=== PATIENT | male | born 1950 | race Caucasian/White ===

== ENCOUNTER 2020-11-16 23:22 | Emergency (ER) | payer MEDICARE, MEDICAID, SELFPAY ==
[2020-11-16 23:36] VITALS: BP 133/62; PULSE 95; RESP 20; TEMP 36.6; O2SAT 95; BMI 25.1
--- NOTE | 2020-11-16 23:52 | ED_ITS ---
HPI - URI/Sore Throat General Chief Complaint: Upper Respiratory Symptoms Stated Complaint: Fever Time Seen by Provider: 11/16/20 23:38 Source: other ([facility] team automobile assembler) Mode of arrival: ambulatory Limitations: other (Patient is nonverbal at baseline) History of Present Illness HPI Narrative: Patient comes emergency room, brought by his team automobile assembler. Patient is nonverbal at baseline. The staff/team automobile assembler reports that the patient has been coughing and having low-grade fever (99.5 Tmax) over the last couple of days. Patient has not had vomiting or diarrhea. Patient is unable to state how he feels Related Data Previous Rx's Medication Instructions Recorded tamsulosin 0.4 mg capsule 0.4 mg PO BEDTIME 30 Days #30 cap 08/26/20 oxybutynin chloride 10 mg 10 mg PO DAILY #30 tab 10/22/20 tablet,extended release 24 hr levofloxacin 500 mg PO DAILY #9 tab 11/17/20 Allergies Allergy/AdvReac Type Severity Reaction Status Date / Time azithromycin [AZITHROMYCIN] Allergy Unknown UNKOWN Unverified 07/17/20 15:21 Macrolide Antibiotics Allergy Unknown unknown Unverified 07/17/20 15:21 [MACROLIDE ANTIBIOTICS] Macrolides and ketolides Allergy Unknown Uncoded 11/26/19 00:00 Review of Systems Review of Systems: Yes Unobtainable due to mental condition [facility] Past Medical History Medical History Barretts syndrome BPH (benign prostatic hyperplasia) GERD (gastroesophageal reflux disease) [place] (hard of hearing) HTN (hypertension) Non-verbal learning disorder Social History Social History Advance Directives: No Advance Directives Information Provided: No Physical Exam Vital Signs: Vital Signs: Last Vital Signs Temp 97.8 F 11/16/20 23:36 Pulse 95 11/16/20 23:36 Resp 20 11/16/20 23:36 BP 133/62 11/16/20 23:36 Pulse Ox 93 11/17/20 01:58 Body Mass Index 25.1 Appearance: Alert. No acute distress Eyes: Pupils equal, round and reactive to light. ENT: Pharynx normal. Neck: Normal inspection. Neck supple. No lymph nodes noted. No crepitus CVS: Normal heart rate and rhythm. Pulses normal. Normal S1 and S2 Respiratory: No respiratory distress. Breath sounds normal. No Wheezing. No rales , actively coughing Abdomen: Soft and nontender. No rigidity. No distention. Skin: Skin warm and dry. Extremities: No lower extremity edema. No Rash Neuro: No motor deficits, cranial nerves 2-12 grossly intact Course Course Course Narrative: I discussed with the patient's team automobile assembler from the skilled nursing the patient's labs and imaging. Patient does have pneumonia. Patient was ambulated, patient's oxygen saturation remained 92-93% on room air, with no dyspnea on exertion. He was given a 1st dose antibiotic (Levaquin). Sepsis is not suspected at this time. I discussed with the team automobile assembler signs and symptoms of when to return to the emergency room. MDM - URI/Sore Throat Lab Data Result diagrams: 11/17/20 00:33 11/17/20 00:33 Labs: Lab Results 11/17/20 11/17/20 11/17/20 Range/Units 00:33 00:33 00:33 WBC 11.0 H (4.8-10.8) X10*3/uL RBC 4.41 L (4.60-5.80) X10*6/uL Hgb 12.8 L (14.0-18.0) g/dl Hct 39.9 L (42-52) % MCV 90.5 (80-98) fL MCH 29.0 (27.0-33.0) pg MCHC 32.1 (31.0-36.0) g/dl RDW 13.7 (11.0-16.0) % Plt Count 256 (160-400) X10*3/uL MPV 11.2 (9.4-12.4) fL Immature Gran % (Auto) 0.6 H (0.0-0.4) % Neut % (Auto) 59.1 (45-73) % Lymph % (Auto) 25.5 (20-40) % [place] % (Auto) 11.8 H (2-11) % Eos % (Auto) 2.4 (0-4) % Baso % (Auto) 0.6 (0-2) % Lymph # (Auto) 2.8 (1.2-4.9) X10*3/uL [place] # (Auto) 1.3 H (0.1-1.2) X10*3/uL Eos # (Auto) 0.3 (0.0-0.4) X10*3/uL Baso # (Auto) 0.1 (0.0-0.2) X10*3/uL Abs Immat Gran (auto) 0.07 H (0.00-0.03) X10*3/uL Absolute Neuts (auto) 6.5 (2.0-8.3) X10*3/uL Absolute Nucleated RBC 0.000 (0.0-0.012) X10*3/uL Nucleated RBC % (auto) 0.0 (0.0-0.2) /100WBC Sodium 136 (135-145) mmol/L Potassium 4.7 (3.3-5.1) mmol/l Chloride 99 (96-108) mmol/L Carbon Dioxide 26 (22-29) mmol/L Anion Gap 16 (12-20) BUN 8 L (9-16) mg/dL Creatinine 0.82 (0.5-1.4) mg/dL Estim Creat Clear Calc 89.2 Estimated GFR > 60 Random Glucose 110 (60-115) mg/dL Lactic Acid 1.6 (0.5-2.0) mmol/L Calcium 8.6 (8.4-10.2) mg/dL Coronavirus (PCR) (Negative) Influenza Type A (PCR) (Negative) Influenza Type B (PCR) (Negative) RSV RNA Qual (PCR) (Negative) 11/17/20 Range/Units 00:33 WBC (4.8-10.8) X10*3/uL RBC (4.60-5.80) X10*6/uL Hgb (14.0-18.0) g/dl Hct (42-52) % MCV (80-98) fL MCH (27.0-33.0) pg MCHC (31.0-36.0) g/dl RDW (11.0-16.0) % Plt Count (160-400) X10*3/uL MPV (9.4-12.4) fL Immature Gran % (Auto) (0.0-0.4) % Neut % (Auto) (45-73) % Lymph % (Auto) (20-40) % [place] % (Auto) (2-11) % Eos % (Auto) (0-4) % Baso % (Auto) (0-2) % Lymph # (Auto) (1.2-4.9) X10*3/uL [place] # (Auto) (0.1-1.2) X10*3/uL Eos # (Auto) (0.0-0.4) X10*3/uL Baso # (Auto) (0.0-0.2) X10*3/uL Abs Immat Gran (auto) (0.00-0.03) X10*3/uL Absolute Neuts (auto) (2.0-8.3) X10*3/uL Absolute Nucleated RBC (0.0-0.012) X10*3/uL Nucleated RBC % (auto) (0.0-0.2) /100WBC Sodium (135-145) mmol/L Potassium (3.3-5.1) mmol/l Chloride (96-108) mmol/L Carbon Dioxide (22-29) mmol/L Anion Gap (12-20) BUN (9-16) mg/dL Creatinine (0.5-1.4) mg/dL Estim Creat Clear Calc Estimated GFR Random Glucose (60-115) mg/dL Lactic Acid (0.5-2.0) mmol/L Calcium (8.4-10.2) mg/dL Coronavirus (PCR) NEGATIVE (Negative) Influenza Type A (PCR) NEGATIVE (Negative) Influenza Type B (PCR) NEGATIVE (Negative) RSV RNA Qual (PCR) NEGATIVE (Negative) Imaging Data Chest x-ray: Radiologist's impression: FINDINGS: Patchy, ill-defined, multifocal reticular airspace opacities are present in both lungs as can be seen with viral pneumonia. No dense consolidation. No pneumothorax or pleural effusion. Cardiac and meniscal contours are normal. No acute osseous findings. Osteoarthritis is present in the acromioclavicular and glenohumeral joints. XR/XR chest 1V IMPRESSION: Patchy, ill-defined airspace disease in both lungs, concerning for bilateral pneumonia. Discharge Plan Discharge Clinical Impression: Pneumonia Qualifiers: Pneumonia type: due to unspecified organism Laterality: unspecified laterality Lung location: unspecified part of lung Qualified Code(s): J18.9 - Pneumonia, unspecified organism Patient Disposition: Xfer Other Instructions: Pneumonia (ED) Additional Instructions: If Mr. Sands has any shortness of breath, worsening symptoms, please call 911 or return to the emergency room immediately. Prescriptions: New levofloxacin 500 mg tablet 500 mg PO DAILY Qty: 9 RF: 0 No Action tamsulosin 0.4 mg capsule 0.4 mg PO BEDTIME 30 Days Qty: 30 RF: 6 oxybutynin chloride 10 mg tablet extended release 24hr 10 mg PO DAILY Qty: 30 RF: 0
--- NOTE | 2020-11-17 | XR_ITS ---
EXAMINATION: XR CHEST CLINICAL INFORMATION: Fever COMPARISON: 09/24/2019 TECHNIQUE: Frontal view of the chest was obtained. FINDINGS: Patchy, ill-defined, multifocal reticular airspace opacities are present in both lungs as can be seen with viral pneumonia. No dense consolidation. No pneumothorax or pleural effusion. Cardiac and meniscal contours are normal. No acute osseous findings. Osteoarthritis is present in the acromioclavicular and glenohumeral joints. XR/XR chest 1V IMPRESSION: Patchy, ill-defined airspace disease in both lungs, concerning for bilateral pneumonia.
[2020-11-17 00:45] LABS: MANUAL DIFF FLAG NO
[2020-11-17 00:46] LABS: Basophils Absolute Auto 0.1 X10*3/uL (0.0-0.2); Basophils Percent Auto 0.6 % (0-2); Eosinophils Absolute Auto 0.3 X10*3/uL (0.0-0.4); Eosinophils Percent Auto 2.4 % (0-4); Hematocrit 39.9 % (42-52); Hemoglobin 12.8 g/dl (14.0-18.0); Imm Gran Abs Auto 0.07 X10*3/uL (0.00-0.03); Imm Gran Pct Auto 0.6 % (0.0-0.4); Lymphocytes Absolute Auto 2.8 X10*3/uL (1.2-4.9); Lymphocytes Percent Auto 25.5 % (20-40); Mean Corpuscular HGB Conc 32.1 g/dl (31.0-36.0); Mean Corpuscular Volume 90.5 fL (80-98); Mean Platelet Volume 11.2 fL (9.4-12.4); Monocytes Absolute Auto 1.3 X10*3/uL (0.1-1.2); Monocytes Percent Auto 11.8 % (2-11); Neutrophils Absolute Auto 6.5 X10*3/uL (2.0-8.3); Neutrophils Percent Auto 59.1 % (45-73); Platelet Count 256 X10*3/uL (160-400); Red Blood Count 4.41 X10*6/uL (4.60-5.80); Red Cell Distribution Width 13.7 % (11.0-16.0)
[2020-11-17 01:07] LABS: Lactic Acid 1.6 mmol/L (0.5-2.0)
[2020-11-17 01:09] LABS: Anion Gap 16 (12-20); Blood Urea Nitrogen 8 mg/dL (9-16); Calcium 8.6 mg/dL (8.4-10.2); Carbon Dioxide 26 mmol/L (22-29); Chloride 99 mmol/L (96-108); Creatinine Clr Calc Pharmacy 89.2; Estimated Glomerular Filt Rate > 60; Glucose Random 110 mg/dL (60-115); Potassium 4.7 mmol/l (3.3-5.1); Sodium 136 mmol/L (135-145)
[2020-11-17 01:25] LABS: Influenza A PCR NEGATIVE (Negative); Influenza B PCR NEGATIVE (Negative); Resp Syncy Virus RNA Qual PCR NEGATIVE (Negative); SARS COV2 PCR INHOUSE NEGATIVE (Negative)
[2020-11-17 01:58] VITALS: O2SAT 93
--- NOTE | 2020-11-17 01:59 | PC.NURSE ---
PATIENT OXYGEN SAT 93% ON ROOM AIR, AMBULATED APPROXIMATELY 25 FEET, SAT REMAINED 92-93% WITH NO DYSPNEA ON EXERTION. DR. PARKER AWARE
[2020-11-17] MEDS: levoFLOXacin 500 MG TABLET PO (02:30)
== END 2020-11-17 02:50 | disposition other institution (70) ==
PROVIDERS: Emergency Provider Emergency Medicine
DX: J18.9 Pneumonia, unspecified organism (principal); R50.9 Fever, unspecified; Z20.822 Contact with and (suspected) exposure to COVID-19
CPT/HCPCS: 0241U; 36415; 71045; 80048; 83605; 85025; 87040; 99283

== ENCOUNTER 2020-11-19 13:18 | Emergency (ER) | payer MEDICARE, MEDICAID, SELFPAY ==
[2020-11-19 13:27] VITALS: BP 119/69; BP 152/85; PULSE 101; PULSE 102; RESP 16; O2SAT 98; BMI 29.2
--- NOTE | 2020-11-19 13:42 | CT_ITS ---
EXAMINATION: HEAD CT, CERVICAL SPINE CT AND CHEST CT WITHOUT CONTRAST CLINICAL INFORMATION: Fall COMPARISON: Previous head CT and cervical spine CT August 2019 and chest x-ray 11/17/2020 TECHNIQUE: Axial images through the head, cervical spine and chest without contrast. Sagittal and coronal reconstructions on the technologist workstation were performed. Patient dose 164 5 mg/cm FINDINGS: Head CT: There is no evidence of an extra-axial collection. There is no evidence of intra-axial or extra-axial hemorrhage. The ventricles and extra-axial CSF spaces are prominent suggestive of generalized atrophy. There is nonspecific periventricular white matter disease. No mass, mass effect or infarct is seen. No skull fracture is seen in there is bilateral maxillary sinus disease that appears new or increased from previous exam. Cervical spine CT: There is slight head tilt to the left. Bone alignment is otherwise normal. There is severe multilevel degenerative spondylosis with large bridging anterior vertebral body bony osteophytes. There is multilevel degenerative disc disease. There are severe degenerative changes at the C1 dens articulation. There is bilateral multilevel facet arthritis. These findings are similar to previous exam. No fracture or dislocation is seen. Prevertebral soft tissues are normal. Chest CT: There are bilateral groundglass and denser semisolid peripheral infiltrates. There is seen diffusely throughout the lungs but greatest at the lung bases. The lung volumes are low and there is bibasilar atelectasis. Appearance is a suggestive of possible Covid infection. The heart normal in size. There is no pericardial effusion. The thoracic aorta is normal in caliber. There are no enlarged hilar or mediastinal lymph nodes. The visualized thyroid gland is normal. There is no pleural effusion or pneumothorax. No chest wall mass is seen. There is no axillary lymphadenopathy. Images through the upper abdomen are unremarkable. There are degenerative changes of the spine. No fracture is seen. CT/CT cervical spine wo con IMPRESSION: Head CT: No acute findings. Generalized atrophy and nonspecific periventricular white matter disease. New bilateral maxillary sinus disease. Cervical spine CT: Severe degenerative changes. No fracture or dislocation seen. Chest CT: Bilateral groundglass attenuation and denser nodular peripheral infiltrates, low lung volumes and atelectasis at the lung bases. Chest x-ray appearance is nonspecific but suggestive of Covid infection.
--- NOTE | 2020-11-19 13:42 | ECG_ITS ---
Test Reason : FALL Blood Pressure : / mmHG Vent. Rate : 092 BPM Atrial Rate : 092 BPM P-R Int : 140 ms QRS Dur : 076 ms QT Int : 324 ms P-R-T Axes : 057 019 056 degrees QTc Int : 400 ms Normal sinus rhythm Normal ECG When compared with ECG of 06-JAN-2013 09:58, No significant change was found Referred By: Jeri Walden Electronically Signed By:GATITO CARDENAS
--- NOTE | 2020-11-19 13:45 | ED.SYNCOPE ---
HPI - Syncope General Chief Complaint: Fall Stated Complaint: NEAR SYNCOPE PER DETENTION Time Seen by Provider: 11/19/20 13:42 Source: patient, EMS and other (caregiver) Mode of arrival: EMS Limitations: other (cognitive impairment) History of Present Illness HPI narrative: recent pneumonia dx here 11/17 started on levofloxacin for bilateral pneumonia at that time COVID negative comes back after staff state he either tripped or he was coughing so hard he almost passed out - he did fall no obvious trauma, no AC therapy MD complaint: almost passed out Onset (ago): minute(s) Prodromal symptoms: other (cough vs trip) Witnessed: Yes - by Other (staff) Context: standing up Injuries sustained associated with event: none Current symptoms: none Treatments prior to arrival: none Related Data Home Medications Medication Instructions Recorded Confirmed docusate sodium 200 mg PO DAILY 11/19/20 11/19/20 hydrochlorothiazide 25 mg PO DAILY 11/19/20 11/19/20 lisinopril 20 mg PO DAILY 11/19/20 11/19/20 pravastatin 40 mg PO BEDTIME 11/19/20 11/19/20 Previous Rx's Medication Instructions Recorded tamsulosin 0.4 mg capsule 0.4 mg PO BEDTIME 30 Days #30 cap 08/26/20 levofloxacin 500 mg PO DAILY #9 tab 11/17/20 oxybutynin chloride 10 mg 10 mg PO DAILY 30 Days #30 tab 11/19/20 tablet,extended release 24 hr Allergies Allergy/AdvReac Type Severity Reaction Status Date / Time azithromycin [AZITHROMYCIN] Allergy Unknown UNKOWN Unverified 07/17/20 15:21 Macrolide Antibiotics Allergy Unknown unknown Unverified 07/17/20 15:21 [MACROLIDE ANTIBIOTICS] Macrolides and ketolides Allergy Unknown Uncoded 11/26/19 00:00 Review of Systems Review of Systems: ROS unable to be obtained due to altered mental status [facility] Past Medical History Attestation statement: The following information was validated with the patient. Medical History Barretts syndrome BPH (benign prostatic hyperplasia) GERD (gastroesophageal reflux disease) [place] (hard of hearing) HTN (hypertension) Non-verbal learning disorder Social History Social History (Updated 11/19/20 @ 13:52 by Jeri Walden DO) Smoking Status: Never smoker Use of substances other than those prescribed or required for medical reasons: No Advance Directives: No Advance Directives Information Provided: Yes Physical Exam Vital Signs: Vital Signs: Last Vital Signs Pulse 101 H 11/19/20 13:27 Resp 16 11/19/20 13:27 BP 119/69 11/19/20 13:27 Pulse Ox 98 11/19/20 13:27 Body Mass Index 29.2 Appearance: Alert. At baseline No acute distress. Eyes: Pupils equal, round and reactive to light. ENT: Pharynx normal. no trauma seen Neck: Normal inspection. Neck supple. CVS: Normal heart rate and rhythm. Pulses normal. Respiratory: No respiratory distress. Breath sounds normal. Abdomen: Soft and nontender. Skin: Skin warm and dry. Normal skin color. Normal skin turgor. Extremities: No lower extremity edema. No calf ttp Neuro: At baseline per staff, cannot participate in exam, no obvious focal deficits. Course Course Course Narrative: negative workup at this time no hypoxia COVID swab negative x [address] chest does appear consistent with COVID MDM - Syncope MDM Narrative Medical decision making narrative: 69 yo male with hearing loss, cognitive impairment here with possible trip and fall vs coughing and nearly passing out , just dx with pneumonia on 11/17 with negative COVID sent out on levofloxacin - cough persists, at this time will need labs, EKG, CT of head/neck/chest to r/o trauma, repeat COVID swab, troponin x 2. Lab Data Result diagrams: 11/19/20 14:20 11/19/20 14:20 Labs: Lab Results 11/19/20 11/19/20 11/19/20 Range/Units 14:20 14:20 14:20 WBC 6.8 (4.8-10.8) X10*3/uL RBC 4.39 L (4.60-5.80) X10*6/uL Hgb 12.7 L (14.0-18.0) g/dl Hct 39.6 L (42-52) % MCV 90.2 (80-98) fL MCH 28.9 (27.0-33.0) pg MCHC 32.1 (31.0-36.0) g/dl RDW 13.9 (11.0-16.0) % Plt Count 290 (160-400) X10*3/uL MPV 11.1 (9.4-12.4) fL Immature Gran % (Auto) 1.6 H (0.0-0.4) % Neut % (Auto) 54.9 (45-73) % Lymph % (Auto) 29.1 (20-40) % [place] % (Auto) 11.3 H (2-11) % Eos % (Auto) 2.5 (0-4) % Baso % (Auto) 0.6 (0-2) % Lymph # (Auto) 2.0 (1.2-4.9) X10*3/uL [place] # (Auto) 0.8 (0.1-1.2) X10*3/uL Eos # (Auto) 0.2 (0.0-0.4) X10*3/uL Baso # (Auto) 0.0 (0.0-0.2) X10*3/uL Abs Immat Gran (auto) 0.11 H (0.00-0.03) X10*3/uL Absolute Neuts (auto) 3.8 (2.0-8.3) X10*3/uL Absolute Nucleated RBC 0.000 (0.0-0.012) X10*3/uL Nucleated RBC % (auto) 0.0 (0.0-0.2) /100WBC PT 12.6 (10.8-13.0) SEC INR 1.1 (0.9-1.1) APTT 31.5 (24.1-38.0) SEC Sodium 134 L (135-145) mmol/L Potassium 4.3 (3.3-5.1) mmol/l Chloride 98 (96-108) mmol/L Carbon Dioxide 26 (22-29) mmol/L Anion Gap 14 (12-20) BUN 11 (9-16) mg/dL Creatinine 0.88 (0.5-1.4) mg/dL Estim Creat Clear Calc 83.8 Estimated GFR > 60 Random Glucose 142 H (60-115) mg/dL Calcium 8.5 (8.4-10.2) mg/dL Magnesium 1.9 (1.6-2.6) mg/dL Total Bilirubin 0.2 (0.0-1.0) mg/dL Direct Bilirubin < 0.2 (0.0-0.5) mg/dL AST 31 (5-37) U/L ALT 49 H (0-40) U/L Alkaline Phosphatase 78 (39-117) U/L Troponin I High Sens (<3.5-35.0) ng/L Total Protein 6.5 (6.5-8.0) g/dL Albumin 3.6 (3.5-5.0) g/dL Lipase 42 (8-78) U/L Coronavirus (PCR) (Negative) Influenza Type A (PCR) (Negative) Influenza Type B (PCR) (Negative) RSV RNA Qual (PCR) (Negative) 11/19/20 11/19/20 Range/Units 14:20 14:21 WBC (4.8-10.8) X10*3/uL RBC (4.60-5.80) X10*6/uL Hgb (14.0-18.0) g/dl Hct (42-52) % MCV (80-98) fL MCH (27.0-33.0) pg MCHC (31.0-36.0) g/dl RDW (11.0-16.0) % Plt Count (160-400) X10*3/uL MPV (9.4-12.4) fL Immature Gran % (Auto) (0.0-0.4) % Neut % (Auto) (45-73) % Lymph % (Auto) (20-40) % [place] % (Auto) (2-11) % Eos % (Auto) (0-4) % Baso % (Auto) (0-2) % Lymph # (Auto) (1.2-4.9) X10*3/uL [place] # (Auto) (0.1-1.2) X10*3/uL Eos # (Auto) (0.0-0.4) X10*3/uL Baso # (Auto) (0.0-0.2) X10*3/uL Abs Immat Gran (auto) (0.00-0.03) X10*3/uL Absolute Neuts (auto) (2.0-8.3) X10*3/uL Absolute Nucleated RBC (0.0-0.012) X10*3/uL Nucleated RBC % (auto) (0.0-0.2) /100WBC PT (10.8-13.0) SEC INR (0.9-1.1) APTT (24.1-38.0) SEC Sodium (135-145) mmol/L Potassium (3.3-5.1) mmol/l Chloride (96-108) mmol/L Carbon Dioxide (22-29) mmol/L Anion Gap (12-20) BUN (9-16) mg/dL Creatinine (0.5-1.4) mg/dL Estim Creat Clear Calc Estimated GFR Random Glucose (60-115) mg/dL Calcium (8.4-10.2) mg/dL Magnesium (1.6-2.6) mg/dL Total Bilirubin (0.0-1.0) mg/dL Direct Bilirubin (0.0-0.5) mg/dL AST (5-37) U/L ALT (0-40) U/L Alkaline Phosphatase (39-117) U/L Troponin I High Sens < 3.5 (<3.5-35.0) ng/L Total Protein (6.5-8.0) g/dL Albumin (3.5-5.0) g/dL Lipase (8-78) U/L Coronavirus (PCR) NEGATIVE (Negative) Influenza Type A (PCR) NEGATIVE (Negative) Influenza Type B (PCR) NEGATIVE (Negative) RSV RNA Qual (PCR) NEGATIVE (Negative) ECG Data Attestation: I personally reviewed and interpreted this ECG as follows: ECG interpretation date: 11/19/20 ECG interpretation time: 14:11 Interpretation: Rate: 92 Rhythm: NSR [place]: normal Normal P waves. Normal JARVIS. Normal QRS complex. ST T wave : normal no RAGHAV qTC: normal prior studies: no acute ischemia The study has been interpreted contemporaneously by me. . Discharge Plan Discharge Clinical Impression: Pneumonia Qualifiers: Pneumonia type: due to unspecified organism Laterality: bilateral Lung location: unspecified part of lung Qualified Code(s): J18.9 - Pneumonia, unspecified organism Patient Disposition: Home, Self-Care Instructions: Pneumonia (ED), COVID-19 (Coronavirus Disease 2019) (ED) Additional Instructions: return to ED for any worsening symptoms or concerns continue antibiotics YOUR CT SCAN OF HEAD AND NECK WERE FINE, YOUR CT CHEST LOOKS LIKE A COVID INFECTION PLEASE QUARANTINE Prescriptions: No Action tamsulosin 0.4 mg capsule 0.4 mg PO BEDTIME 30 Days Qty: 30 RF: 6 oxybutynin chloride 10 mg tablet extended release 24hr 10 mg PO DAILY 30 Days Qty: 30 RF: 0 levofloxacin 500 mg tablet 500 mg PO DAILY Qty: 9 RF: 0 pravastatin 40 mg Tablet 40 mg PO BEDTIME RF: 0 lisinopril 20 mg Tablet 20 mg PO DAILY RF: 0 hydrochlorothiazide 25 mg Tablet 25 mg PO DAILY RF: 0 docusate sodium 100 mg Tablet 200 mg PO DAILY RF: 0 Referrals: Brandon Tovar MD [Primary Care Provider] - 5 days (IF NOT BETTER)
[2020-11-19 14:26] LABS: MANUAL DIFF FLAG NO
[2020-11-19 14:29] LABS: Basophils Percent Auto 0.6 % (0-2); Eosinophils Absolute Auto 0.2 X10*3/uL (0.0-0.4); Eosinophils Percent Auto 2.5 % (0-4); Hematocrit 39.6 % (42-52); Hemoglobin 12.7 g/dl (14.0-18.0); Imm Gran Abs Auto 0.11 X10*3/uL (0.00-0.03); Imm Gran Pct Auto 1.6 % (0.0-0.4); Lymphocytes Percent Auto 29.1 % (20-40); Mean Corpuscular HGB Conc 32.1 g/dl (31.0-36.0); Mean Corpuscular Hemoglobin 28.9 pg (27.0-33.0); Mean Corpuscular Volume 90.2 fL (80-98); Mean Platelet Volume 11.1 fL (9.4-12.4); Monocytes Absolute Auto 0.8 X10*3/uL (0.1-1.2); Monocytes Percent Auto 11.3 % (2-11); Neutrophils Absolute Auto 3.8 X10*3/uL (2.0-8.3); Neutrophils Percent Auto 54.9 % (45-73); Platelet Count 290 X10*3/uL (160-400); Red Blood Count 4.39 X10*6/uL (4.60-5.80); Red Cell Distribution Width 13.9 % (11.0-16.0); White Blood Count 6.8 X10*3/uL (4.8-10.8)
[2020-11-19 14:35] LABS: INTERNATIONAL NORM RATIO 1.1 (0.9-1.1); Prothrombin Time 12.6 SEC (10.8-13.0)
[2020-11-19 14:38] LABS: Partial Thromboplastin Time 31.5 SEC (24.1-38.0)
[2020-11-19 15:01] LABS: Alanine Aminotransferase 49 U/L (0-40); Albumin Level 3.6 g/dL (3.5-5.0); Alkaline Phosphatase 78 U/L (39-117); Anion Gap 14 (12-20); Aspartate Amino Transferase 31 U/L (5-37); Bilirubin Direct < 0.2 mg/dL (0.0-0.5); Bilirubin Total 0.2 mg/dL (0.0-1.0); Blood Urea Nitrogen 11 mg/dL (9-16); Calcium 8.5 mg/dL (8.4-10.2); Carbon Dioxide 26 mmol/L (22-29); Chloride 98 mmol/L (96-108); Creatinine Clr Calc Pharmacy 83.8; Estimated Glomerular Filt Rate > 60; Glucose Random 142 mg/dL (60-115); Lipase 42 U/L (8-78); Magnesium 1.9 mg/dL (1.6-2.6); Potassium 4.3 mmol/l (3.3-5.1); Sodium 134 mmol/L (135-145); Total Protein 6.5 g/dL (6.5-8.0)
[2020-11-19 15:06] LABS: Troponin-I High Sensitivity < 3.5 ng/L (<3.5-35.0)
[2020-11-19 15:17] LABS: Influenza A PCR NEGATIVE (Negative); Influenza B PCR NEGATIVE (Negative); Resp Syncy Virus RNA Qual PCR NEGATIVE (Negative); SARS COV2 PCR INHOUSE NEGATIVE (Negative)
== END 2020-11-19 16:48 | disposition home or self-care (01) ==
PROVIDERS: Emergency Provider Emergency Medicine; PCP Internal Medicine
DX: J18.9 Pneumonia, unspecified organism (principal); R55 Syncope and collapse; Z79.899 Other long term (current) drug therapy; Z20.822 Contact with and (suspected) exposure to COVID-19
CPT/HCPCS: 0241U; 36415; 70450; 71250; 72125; 80048; 80076; 83690; 83735; 84484; 85025; 85610; 85730; 93005; 99283; 99284

== ENCOUNTER → 2021-04-17 11:02 | Outpatient (BNVA) | payer MEDICARE, MEDICAID, SELFPAY | PROVIDERS: PCP Internal Medicine; Visit Provider Urology | CPT/HCPCS: Q3014 ==

== ENCOUNTER → 2021-08-25 10:16 | Outpatient (BNVA) | payer MEDICARE, MEDICAID, SELFPAY | PROVIDERS: PCP Internal Medicine; Visit Provider Urology | DX: N40.1 Benign prostatic hyperplasia with lower urinary tract symptoms (principal); R35.1 Nocturia | CPT/HCPCS: Q3014 ==

== ENCOUNTER 2022-02-11 08:35 | Outpatient (REF) | payer MEDICARE, MEDICAID, SELFPAY ==
[2022-02-11 11:48] LABS: Prostate Specific Antigen 2.75 ng/mL (<0.05-4.0)
== END 2022-02-11 08:36 | disposition home or self-care (01) ==
LOC: HO.HMGCLDS 08:35
PROVIDERS: Visit Provider Urology
DX: Z12.5 Encounter for screening for malignant neoplasm of prostate (principal); N40.0 Benign prostatic hyperplasia without lower urinary tract symptoms
CPT/HCPCS: 36415; 84153

== ENCOUNTER → 2022-02-25 09:28 | Outpatient (BNVA) | payer MEDICARE, MEDICAID, SELFPAY | PROVIDERS: PCP Internal Medicine; Visit Provider Urology | DX: N40.1 Benign prostatic hyperplasia with lower urinary tract symptoms (principal); R35.1 Nocturia | CPT/HCPCS: Q3014 ==

== ENCOUNTER 2022-02-25 12:05 | Inpatient (IN) | payer MEDICARE, MEDICAID, SELFPAY ==
[2022-02-25] VITALS (12 sets, daily range): BP systolic 90–184; BP diastolic 54–95; PULSE 18–128; RESP 15–37; TEMP 32–38.7; O2SAT 90–100; BMI 31.1; BMI 30.3
--- NOTE | ~2022-02-25 | CT_ITS ---
EXAMINATION: CT ABDOMEN AND PELVIS WITH CONTRAST CLINICAL INFORMATION: Suspected bowel obstruction. COMPARISON: CT of the abdomen and pelvis done on 02/25/2022. TECHNIQUE: Multidetector volumetric images were obtained from the superior aspect of the liver through the pubic symphysis following administration 85 mL of Omnipaque 350 intravenous contrast. Sagittal and coronal reformatted images were obtained on the technologist's workstation. Oral contrast: No This CT examination was performed using dose optimization techniques as appropriate, variously including the following: *Automated exposure control *Adjustment of mA and/or kV according to patient size (this includes techniques or standardized protocols for targeted exams where dose is matched to indication/reason for exam; i.e. extremities or head) *Use of iterative reconstruction technique DLP: 763 mGy-cm FINDINGS: LUNG BASES: Dense airspace consolidation is noted at both lung bases associated with trace bilateral pleural effusions, shows progression since prior study. There is an enteric tube identified, the visualized part of the tube appears intact. The heart size is within normal limit. There is no pericardial effusion present. LIVER, GALLBLADDER, AND BILIARY TREE: Diffuse hepatic hypodensity consistent with hepatic steatosis is present. No superimposed focal liver lesion. Portal vein is patent. The gallbladder is mildly distended, shows minimal sludge at its dependent part of the lumen without evidence of any wall thickening or pericholecystic fluid, unchanged. PANCREAS: Unremarkable. SPLEEN: Unremarkable. ADRENAL GLANDS: Unremarkable. KIDNEYS AND URETERS: The kidneys are normal in size, shape, and attenuation. No hydronephrosis, hydroureter, or calculi seen. No perinephric stranding. Bilateral cortical renal cysts are present, similar to prior study. BLADDER: There is a Rosenberg's catheter present with air-fluid level. The bladder is suboptimally distended, shows apparent wall thickening. GASTROINTESTINAL TRACT: Significant fecal residual is noted throughout the entire large bowel. Nonvisualized appendix. The small bowel loops are decompressed. The stomach is decompressed. Mild stranding of the mesentery, new since prior study. ABDOMINAL WALL: No significant hernia is appreciated. LYMPH NODES: There are no pathologically enlarged retroperitoneal, mesenteric, pelvic and/or groin lymphadenopathy. VASCULAR: Diffuse atherosclerotic disease of the aorta and is branches without aneurysm formation. PELVIC VISCERA: There is no pelvic mass present. Trace amount of free fluid is noted, new since prior study. Prostate is visualized, shows parenchymal calcifications. OSSEOUS STRUCTURES: No suspicious focal lesion. CT/CT abdomen pelvis w con IMPRESSION: 1. Dense airspace consolidation at both lung bases associated with trace bilateral pleural effusions, shows progression since prior study dated 02/17/2022. 2. Interval development of nondrainable trace amount of simple appearing free fluid is noted within the dependent part of the pelvis and nonspecific mesenteric stranding. 3. Diffuse hepatic steatosis. 4. No CT evidence of any bowel obstruction is present. Significant fecal residual however is noted throughout the entire large bowel from cecum to the rectum. Fleischner guidelines were followed.
--- NOTE | ~2022-02-25 | CT_ITS ---
EXAM: 1. CTA chest, PE protocol 2. CT abdomen pelvis with contrast INDICATION: Hypoxia. Covid positive. Abdominal distention and pain. COMPARISON: Chest CT 11/19/2020 TECHNIQUE: Multidetector helical imaging of the chest, abdomen, and pelvis was obtained from the thoracic inlet through the pubic symphysis following administration of 85 cc of Omnipaque 350 IV contrast. Reformatted coronal, sagittal and MIP imaging was provided for interpretation. DLP: 1381 mGy-cm FINDINGS: CHEST: Central airways are patent. Endotracheal tube terminates approximately 3.5 cm above the level the [place]. Filling defect within the right mainstem bronchus statistically represents mucus. Some peripheral mucous plugging is also noted. The lungs are adequately aerated. Patchy somewhat nodular airspace opacities are present diffusely throughout both lungs. There are regions of more nodular consolidative airspace disease dependently within both lower lobes. There is mild posterior pleural thickening without gross effusion bilaterally. There is no pneumothorax. The heart is normal in size. There is no pericardial effusion. No main or segmental pulmonary emboli. Evaluation of subsegmental pulmonary arteries is suboptimal given background of airspace disease, respiratory motion artifact and artifact from overlying cardiac leads. No gross mediastinal lymphadenopathy. No enlarged axillary lymph nodes. ABDOMEN/PELVIS: The liver and gallbladder are normal in appearance. There is fatty atrophy of the pancreas. The spleen and adrenal glands are unremarkable. Symmetrically enhancing kidneys. Bilateral renal cysts are noted in addition to several bilateral renal hypodensities which are inaccurately characterized. Largest cyst is located off the lower pole of the right kidney and measures approximately 8 cm in size. There is suggestion of some minimal peripheral calcification of the cyst. Enteric tube terminates within the stomach. Normal caliber loops of small bowel. There is mild gaseous distention throughout the majority the colon with scattered air-fluid levels. Normal caliber abdominal aorta. The bladder is decompressed around a Rosenberg catheter and therefore not accurately evaluated. Air within the bladder is felt to be iatrogenic. There is mild diffuse bladder wall thickening present. Coarse calcifications are noted within a normal-sized prostate gland. There is no gross free pelvic fluid. No inguinal lymphadenopathy. OSSEOUS STRUCTURES Moderate diffuse degenerative changes of the spine. CT/CT angio chest PE protocol IMPRESSION: 1. Properly positioned endotracheal tube. 2. Patchy, somewhat nodular airspace opacities are present throughout both lungs. These are most consistent with provided history of Covid. More nodular consolidative airspace disease is present dependently within both lower lobes. 3. No main or segmental pulmonary emboli. Evaluation of subsegmental pulmonary arteries is suboptimal given background of airspace disease, respiratory motion artifact and artifact from overlying cardiac leads. 4. Mild gaseous distention throughout the majority the colon with scattered air-fluid levels. This CT examination was performed using dose optimization techniques as appropriate, variously including the following: *Automated exposure control *Adjustment of mA and/or kV according to patient size (this includes techniques or standardized protocols for targeted exams where dose is matched to indication/reason for exam; i.e. extremities or head) *Use of iterative reconstruction technique
--- NOTE | ~2022-02-25 | XR_ITS ---
EXAMINATION: XR CHEST CLINICAL INFORMATION: TLC placement COMPARISON: 02/25/2022 TECHNIQUE: Frontal view of the chest was obtained. FINDINGS: Catheter overlying the right-sided mediastinum. The tip overlying the superior vena cava. There is no pneumothorax. The ET tube is 4.4 cm above the [place]. NG tube coursing overlying the stomach. Lung wong are comparable. Continued bilateral basilar opacities right greater than left. No improvement. XR/XR chest 1V IMPRESSION: Catheter tip overlying the superior vena cava. There is no pneumothorax. ET tube 4.4 cm above [place]. NG tube overlying the stomach. Continued bilateral basilar opacities
--- NOTE | ~2022-02-25 | XR_ITS ---
EXAMINATION: XR CHEST CLINICAL INFORMATION: Shortness of breath and dyspnea COMPARISON: Chest radiograph 11/17/2020, chest CT 11/19/2020 TECHNIQUE: Frontal view of the chest was obtained. FINDINGS: Since the prior study there has been clearing of what were subtle ill-defined airspace opacities. However, there is a new small right pleural effusion. Heart size normal. No evidence of CHF. XR/XR chest 1V IMPRESSION: New tiny right pleural effusion.
--- NOTE | 2022-02-25 12:21 | ECG_ITS ---
Test Reason : DYSPNEA Blood Pressure : / mmHG Vent. Rate : 123 BPM Atrial Rate : 123 BPM P-R Int : 148 ms QRS Dur : 078 ms QT Int : 288 ms P-R-T Axes : 090 037 071 degrees QTc Int : 412 ms Sinus tachycardia Otherwise normal ECG When compared with ECG of 19-NOV-2020 13:57, No significant change was found Referred By: Jeri Walden Electronically Signed By:GATITO CARDENAS
[2022-02-25] MEDS: Albuterol Sulfate (0.083%) 2.5 MG/3 ML VIAL.NEB INHALE (12:33)
--- NOTE | 2022-02-25 12:36 | ED_ITS ---
HPI - SOB/Dyspnea General Chief Complaint: Dyspnea Stated Complaint: COVID +,DIFF BREATHING,FROM [facility] PER EMS Time Seen by Provider: 02/25/22 12:09 Source: EMS Mode of arrival: EMS Limitations: other (cognitive impairment, nonverbal, hearing loss) History of Present Illness HPI Narrative: 71 yo male with hx of BPH, COVID positive as of yesterday, vaccinated x 3 with Pfizer, seemed to be doing okay until this morning - abrupt onset short of breath, hot to touch, EMS found him sats 70% applied NC as well as NRB they attempted to suction him without succes. On arrival I suctioned him and he had a large volume of emesis which helped to clear the upper airway sounds MD elicited complaint: shortness of breath (fevers) and cough Onset (ago): day(s) (2 days ago but much worse this AM) Context: recent illness (COVID dx ) Timing: progressively worsening Severity: severe Exacerbating factors: lying flat, exertion and coughing Relieving factors: oxygen and upright position Known history of: other (pneumonia in past with COVID back in Oct 2020) Associated symptoms: fever, cough, wheezing and sputum production Treatment prior to arrival: oxygen Related Data Home Medications Medication Instructions Recorded Confirmed docusate sodium 100 mg tablet 200 mg PO DAILY 11/19/20 02/25/22 hydrochlorothiazide 25 mg tablet 25 mg PO DAILY@0800 11/19/20 02/25/22 lisinopril 20 mg tablet 20 mg PO DAILY 11/19/20 02/25/22 pravastatin 40 mg tablet 40 mg PO BEDTIME 11/19/20 02/25/22 lactulose 10 gram/15 mL oral 30 ml PO BEDTIME 08/25/21 02/25/22 solution loperamide 2 mg capsule 2 mg PO QID PRN 08/25/21 02/25/22 loratadine 10 mg tablet 10 mg PO DAILY PRN 08/25/21 02/25/22 multivitamin with folic acid 400 1 tab PO BEDTIME 08/25/21 02/25/22 mcg tablet (Thera) omeprazole 40 mg capsule,delayed 40 mg PO DAILY 08/25/21 02/25/22 release Lactobacillus rhamnosus GG 10 1 cap PO DAILY 02/25/22 02/25/22 billion cell capsule (Culturelle) bacitracin zinc 500 unit/gram 1 appl TOPICAL QID 02/25/22 02/25/22 topical ointment lorazepam 2 mg tablet 1 tab PO DAILY PRN 02/25/22 02/25/22 magnesium hydroxide 400 mg/5 mL 30 ml PO BEDTIME 02/25/22 02/25/22 oral suspension (Milk of Magnesia) oxybutynin chloride 10 mg 1 tab PO DAILY 02/25/22 02/25/22 tablet,extended release 24 hr polyethylene glycol 3350 17 17 g PO DAILY@1700 02/25/22 02/25/22 gram/dose oral powder (Miralax) Previous Rx's Medication Instructions Recorded finasteride 5 mg tablet 5 mg PO DAILY 90 Days #90 tab 09/08/21 tamsulosin 0.4 mg capsule 0.4 mg PO BEDTIME 30 Days #90 cap 09/16/21 Allergies Allergy/AdvReac Type Severity Reaction Status Date / Time azithromycin [AZITHROMYCIN] Allergy Unknown UNKOWN Verified 08/25/21 10:17 Macrolide Antibiotics Allergy Unknown unknown Verified 08/25/21 10:17 [MACROLIDE ANTIBIOTICS] Macrolides and ketolides Allergy Unknown Unknown Uncoded 08/25/21 10:17 Review of Systems Review of Systems: ROS unable to be obtained due to non verbal cognitive impairment and respiratory distress [facility] Past Medical History Source: old records reviewed Medical History Barretts syndrome BPH (benign prostatic hyperplasia) GERD (gastroesophageal reflux disease) [place] (hard of hearing) HTN (hypertension) Non-verbal learning disorder Social History Social History (Updated 02/25/22 @ 13:21 by Jeri Walden DO) Patient Tobacco Use Status: Tobacco use Unknown Advance Directives: No Advance Directives Information Provided: No Physical Exam Vital Signs: Vital Signs: Last Vital Signs Temp 99.6 F 02/25/22 15:06 Pulse 120 H 02/25/22 16:21 Resp 18 02/25/22 16:21 BP 142/89 H 02/25/22 16:21 Pulse Ox 99 02/25/22 16:21 BMI result Body Mass Index 31.1 Appearance: Alert. Appears at baseline Moderate acute distress. Eyes: Pupils equal, round and reactive to light. ENT: Pharynx normal. Neck: Normal inspection. Neck supple. CVS: tachycardic heart rate and rhythm. Pulses normal. Respiratory: Moderate respiratory distress -retractions, bases very coarse and diminished - rhonchi noted, upper airway gurgling noted unable to cough out secretions - suctioned immediately with yankauer- copious thick brown secretions noted patient vomited immediately and was able to express emesis without issue afterwards gurgling improved Abdomen: Soft and non-tender. Skin: Skin hot to touch and dry. Normal skin color. Normal skin turgor. Extremities: No lower extremity edema. No calf ttp Neuro: cannot fully participate. No motor deficit. No sensory deficit. Course Course Course Narrative: patient cannot tolerate CT scan he is ripping his high flow off repeatedly, found repeatedly with O2 off - hx of noncompliance - patient is delerious at this time. At this time he cannot tolerate oxygen or masks found hypoxic several times and then rips the mask off again. At this time given his lack of ability to communicate and understand what is going on given COVID and fevers/hypoxia he will require intubation to treat his hypoxia. sister Sharmin who is his contact [phone] sister would like to proceed with intubation at this time - she wants to be called daily plan to admit to ICU CT scans of chest and abdomen pending Dr. Johnson aware will try to admit signed out to Dr. Brady pending CT scans and final disposition to ICU, RN circuit breaker supervisor aware at this time of need for bed placement MDM - SOB/Dyspnea MDM Narrative Medical decision making narrative: 71 yo male with hx of BPH, non verbal cognitive impairment, Pfizer vaccine x 3, COVID Oct 2020 here with c/o URI COVID positive yesterday - today became acutely short of breath, fevers, found to be hypoxic. At this time will place on high flow, neb treatment, IV steroids, cultures, lactic acid, empiric abx given copious secretions. Planned admit Lab Data Result diagrams: 02/25/22 14:04 02/25/22 14:05 Labs: Lab Results 02/25/22 02/25/22 02/25/22 Range/Units 13:10 14:04 14:04 WBC 10.6 (4.8-10.8) X10*3/uL RBC 4.69 (4.60-5.80) X10*6/uL Hgb 13.6 L (14.0-18.0) g/dl Hct 41.1 L (42.0-52.0) % MCV 87.6 (80.0-98.0) fL MCH 29.0 (27.0-33.0) pg MCHC 33.1 (31.0-36.0) g/dl RDW 13.7 (11.0-16.0) % Plt Count 186 (160-400) X10*3/uL MPV 12.2 (9.4-12.4) fL Immature Gran % (Auto) 0.4 (0.0-0.4) % Neut % (Auto) 89.1 H (45-73) % Lymph % (Auto) 3.3 L (20-40) % Cole % (Auto) 7.0 (2-11) % Eos % (Auto) 0.0 (0-4) % Baso % (Auto) 0.2 (0-2) % Lymph # (Auto) 0.4 L (1.2-4.9) X10*3/uL Cole # (Auto) 0.7 (0.1-1.2) X10*3/uL Eos # (Auto) 0.0 (0.0-0.4) X10*3/uL Baso # (Auto) 0.0 (0.0-0.2) X10*3/uL Abs Immat Gran (auto) 0.04 H (0.00-0.03) X10*3/uL Absolute Neuts (auto) 9.5 H (2.0-8.3) x10*3/uL Absolute Nucleated RBC 0.000 (0.0-0.012) X10*3/uL Nucleated RBC % (auto) 0.0 (0.0-0.2) /100WBC PT 12.6 (9.9-13.0) SEC INR 1.1 (0.9-1.1) APTT 29.2 (24.1-38.0) SEC D-Dimer High Sensitivty 1091 NG/ML VBG pH (7.32-7.43) VBG pCO2 mmHg VBG pO2 mmHg VBG HCO3 (22-26) mmol/L VBG O2 Saturation % VBG Base Excess mmol/L Sodium (135-145) mmol/L Potassium (3.3-5.1) mmol/L Chloride (96-108) mmol/L Carbon Dioxide (22-29) mmol/L Anion Gap (12-20) BUN (9-16) mg/dL Creatinine (0.5-1.4) mg/dL Estim Creat Clear Calc Estimated GFR Random Glucose (60-115) mg/dL Lactic Acid (0.5-2.0) mmol/L Calcium (8.4-10.2) mg/dL Magnesium (1.6-2.6) mg/dL Ferritin (20-250) ng/mL Total Bilirubin (0.0-1.0) mg/dL Direct Bilirubin (0.0-0.5) mg/dL AST (5-37) U/L ALT (0-40) U/L Alkaline Phosphatase (39-117) U/L Lactate Dehydrogenase (118-273) U/L Total Creatine Kinase (38-174) U/L Troponin I High Sens (<3.5-35.0) ng/L C-Reactive Protein (< or = 0.50) mg/dL B-Natriuretic Peptide 55 (<100) pg/mL Total Protein (6.5-8.0) g/dL Albumin (3.5-5.0) g/dL Lipase (8-78) U/L Procalcitonin ng/mL COVID-19 (ANNAMARIE) (Negative) COVID-19 Clin Com 02/25/22 02/25/22 02/25/22 Range/Units 14:04 14:04 14:04 WBC (4.8-10.8) X10*3/uL RBC (4.60-5.80) X10*6/uL Hgb (14.0-18.0) g/dl Hct (42.0-52.0) % MCV (80.0-98.0) fL MCH (27.0-33.0) pg MCHC (31.0-36.0) g/dl RDW (11.0-16.0) % Plt Count (160-400) X10*3/uL MPV (9.4-12.4) fL Immature Gran % (Auto) (0.0-0.4) % Neut % (Auto) (45-73) % Lymph % (Auto) (20-40) % Cole % (Auto) (2-11) % Eos % (Auto) (0-4) % Baso % (Auto) (0-2) % Lymph # (Auto) (1.2-4.9) X10*3/uL [place] # (Auto) (0.1-1.2) X10*3/uL Eos # (Auto) (0.0-0.4) X10*3/uL Baso # (Auto) (0.0-0.2) X10*3/uL Abs Immat Gran (auto) (0.00-0.03) X10*3/uL Absolute Neuts (auto) (2.0-8.3) x10*3/uL Absolute Nucleated RBC (0.0-0.012) X10*3/uL Nucleated RBC % (auto) (0.0-0.2) /100WBC PT (9.9-13.0) SEC INR (0.9-1.1) APTT (24.1-38.0) SEC D-Dimer High Sensitivty NG/ML VBG pH (7.32-7.43) VBG pCO2 mmHg VBG pO2 mmHg VBG HCO3 (22-26) mmol/L VBG O2 Saturation % VBG Base Excess mmol/L Sodium (135-145) mmol/L Potassium (3.3-5.1) mmol/L Chloride (96-108) mmol/L Carbon Dioxide (22-29) mmol/L Anion Gap (12-20) BUN (9-16) mg/dL Creatinine (0.5-1.4) mg/dL Estim Creat Clear Calc Estimated GFR Random Glucose (60-115) mg/dL Lactic Acid 1.6 (0.5-2.0) mmol/L Calcium (8.4-10.2) mg/dL Magnesium (1.6-2.6) mg/dL Ferritin 396 H (20-250) ng/mL Total Bilirubin (0.0-1.0) mg/dL Direct Bilirubin (0.0-0.5) mg/dL AST (5-37) U/L ALT (0-40) U/L Alkaline Phosphatase (39-117) U/L Lactate Dehydrogenase (118-273) U/L Total Creatine Kinase (38-174) U/L Troponin I High Sens 10.9 (<3.5-35.0) ng/L C-Reactive Protein (< or = 0.50) mg/dL B-Natriuretic Peptide (<100) pg/mL Total Protein (6.5-8.0) g/dL Albumin (3.5-5.0) g/dL Lipase (8-78) U/L Procalcitonin ng/mL COVID-19 (ANNAMARIE) (Negative) COVID-19 Clin Com 02/25/22 02/25/22 02/25/22 Range/Units 14:05 14:05 14:39 WBC (4.8-10.8) X10*3/uL RBC (4.60-5.80) X10*6/uL Hgb (14.0-18.0) g/dl Hct (42.0-52.0) % MCV (80.0-98.0) fL MCH (27.0-33.0) pg MCHC (31.0-36.0) g/dl RDW (11.0-16.0) % Plt Count (160-400) X10*3/uL MPV (9.4-12.4) fL Immature Gran % (Auto) (0.0-0.4) % Neut % (Auto) (45-73) % Lymph % (Auto) (20-40) % Cole % (Auto) (2-11) % Eos % (Auto) (0-4) % Baso % (Auto) (0-2) % Lymph # (Auto) (1.2-4.9) X10*3/uL Cole # (Auto) (0.1-1.2) X10*3/uL Eos # (Auto) (0.0-0.4) X10*3/uL Baso # (Auto) (0.0-0.2) X10*3/uL Abs Immat Gran (auto) (0.00-0.03) X10*3/uL Absolute Neuts (auto) (2.0-8.3) x10*3/uL Absolute Nucleated RBC (0.0-0.012) X10*3/uL Nucleated RBC % (auto) (0.0-0.2) /100WBC PT (9.9-13.0) SEC INR (0.9-1.1) APTT (24.1-38.0) SEC D-Dimer High Sensitivty NG/ML VBG pH (7.32-7.43) VBG pCO2 mmHg VBG pO2 mmHg VBG HCO3 (22-26) mmol/L VBG O2 Saturation % VBG Base Excess mmol/L Sodium 131 L (135-145) mmol/L Potassium 4.0 (3.3-5.1) mmol/L Chloride 94 L (96-108) mmol/L Carbon Dioxide 25 (22-29) mmol/L Anion Gap 16 (12-20) BUN 18 H (9-16) mg/dL Creatinine 1.01 (0.5-1.4) mg/dL Estim Creat Clear Calc 68.5 Estimated GFR > 60 Random Glucose 145 H (60-115) mg/dL Lactic Acid (0.5-2.0) mmol/L Calcium 8.7 (8.4-10.2) mg/dL Magnesium 1.9 (1.6-2.6) mg/dL Ferritin (20-250) ng/mL Total Bilirubin 0.6 (0.0-1.0) mg/dL Direct Bilirubin 0.3 (0.0-0.5) mg/dL AST 24 (5-37) U/L ALT 23 (0-40) U/L Alkaline Phosphatase 62 D (39-117) U/L Lactate Dehydrogenase 197 (118-273) U/L Total Creatine Kinase 251 H (38-174) U/L Troponin I High Sens (<3.5-35.0) ng/L C-Reactive Protein 10.88 H (< or = 0.50) mg/dL B-Natriuretic Peptide (<100) pg/mL Total Protein 6.7 (6.5-8.0) g/dL Albumin 3.8 (3.5-5.0) g/dL Lipase 17 (8-78) U/L Procalcitonin 0.77 ng/mL COVID-19 (ANNAMARIE) Positive A (Negative) COVID-19 Clin Com See Note 02/25/22 Range/Units 14:59 WBC (4.8-10.8) X10*3/uL RBC (4.60-5.80) X10*6/uL Hgb (14.0-18.0) g/dl Hct (42.0-52.0) % MCV (80.0-98.0) fL MCH (27.0-33.0) pg MCHC (31.0-36.0) g/dl RDW (11.0-16.0) % Plt Count (160-400) X10*3/uL MPV (9.4-12.4) fL Immature Gran % (Auto) (0.0-0.4) % Neut % (Auto) (45-73) % Lymph % (Auto) (20-40) % Cole % (Auto) (2-11) % Eos % (Auto) (0-4) % Baso % (Auto) (0-2) % Lymph # (Auto) (1.2-4.9) X10*3/uL [place] # (Auto) (0.1-1.2) X10*3/uL Eos # (Auto) (0.0-0.4) X10*3/uL Baso # (Auto) (0.0-0.2) X10*3/uL Abs Immat Gran (auto) (0.00-0.03) X10*3/uL Absolute Neuts (auto) (2.0-8.3) x10*3/uL Absolute Nucleated RBC (0.0-0.012) X10*3/uL Nucleated RBC % (auto) (0.0-0.2) /100WBC PT (9.9-13.0) SEC INR (0.9-1.1) APTT (24.1-38.0) SEC D-Dimer High Sensitivty NG/ML VBG pH 7.47 H (7.32-7.43) VBG pCO2 34 mmHg VBG pO2 125 mmHg VBG HCO3 25 (22-26) mmol/L VBG O2 Saturation 100.0 % VBG Base Excess 2.0 mmol/L Sodium (135-145) mmol/L Potassium (3.3-5.1) mmol/L Chloride (96-108) mmol/L Carbon Dioxide (22-29) mmol/L Anion Gap (12-20) BUN (9-16) mg/dL Creatinine (0.5-1.4) mg/dL Estim Creat Clear Calc Estimated GFR Random Glucose (60-115) mg/dL Lactic Acid (0.5-2.0) mmol/L Calcium (8.4-10.2) mg/dL Magnesium (1.6-2.6) mg/dL Ferritin (20-250) ng/mL Total Bilirubin (0.0-1.0) mg/dL Direct Bilirubin (0.0-0.5) mg/dL AST (5-37) U/L ALT (0-40) U/L Alkaline Phosphatase (39-117) U/L Lactate Dehydrogenase (118-273) U/L Total Creatine Kinase (38-174) U/L Troponin I High Sens (<3.5-35.0) ng/L C-Reactive Protein (< or = 0.50) mg/dL B-Natriuretic Peptide (<100) pg/mL Total Protein (6.5-8.0) g/dL Albumin (3.5-5.0) g/dL Lipase (8-78) U/L Procalcitonin ng/mL COVID-19 (ANNAMARIE) (Negative) COVID-19 Clin Com ECG Data Attestation: I personally reviewed and interpreted this ECG as follows: ECG interpretation date: 02/25/22 ECG interpretation time: 12:45 Interpretation: Rate: 123 Rhythm: sinus tachycardia [place]: normal Normal P waves. Normal JARVIS. Normal QRS complex. ST T wave : normal no RAGHAV qTC: normal prior studies: no acute ischemia The study has been interpreted contemporaneously by me. Procedures Intubation Time out performed: Yes sedative: Etomidate Mg Given: 10 paralytic: Rocuronium Mg Given: 50 Laryngoscope: Storm (4) Assist Device Used: other (glidescope) ET Tube Size: 7.5 ET Tube Uncuffed: Yes Tube Secured Depth (cm): 23 Tube Secured Location: lips Tube Placement Confirmation: visualized tube passing through cords, equal breath sounds bilaterally, no breath sounds over epigastrium and confirmation by ca pnometry Patient Tolerated Procedure: well and no complications Intubation Complications: none Additional Comments: when laid down flat large amount of yellow brown copious secretions came up from trachea had to be suctioned lowest O2 sat during procedure was 90% Critical Care Time Critical Care Time Critical Care Time: Yes Total Critical Care Time: 90 Attestation: supplemental O2, family discussion, IV antibiotics, intubations, management of acute respiratory failure, medical consult, admit to ICU I attest to this time spent taking care of the patient Discharge Plan Discharge Clinical Impression: Fever, Hypoxia, COVID-19, Acute delirium Respiratory failure Qualifiers: Chronicity: acute Respiratory failure complication: hypoxia Qualified Code(s): J96.01 - Acute respiratory failure with hypoxia Patient Disposition: Admitted As Inpatient
[2022-02-25] MEDS: ondansetron HCL 4 MG/2 ML VIAL IVPUSH (12:45)
[2022-02-25] MEDS: dexAMETHasone sod phosphate 4 MG/ML VIAL 6 MG IVPUSH (12:45)
[2022-02-25] MEDS: Acetaminophen Supp 650 MG SUPP.RECT PR (12:45)
[2022-02-25 13:22] LABS: INTERNATIONAL NORM RATIO 1.1 (0.9-1.1); Prothrombin Time 12.6 SEC (9.9-13.0)
[2022-02-25 13:24] LABS: D Dimer High Sensitivity 1091 NG/ML
[2022-02-25 13:25] LABS: Partial Thromboplastin Time 29.2 SEC (24.1-38.0)
[2022-02-25 14:13] LABS: MANUAL DIFF FLAG NO
[2022-02-25 14:16] LABS: Basophils Percent Auto 0.2 % (0-2); Hematocrit 41.1 % (42.0-52.0); Hemoglobin 13.6 g/dl (14.0-18.0); Imm Gran Abs Auto 0.04 X10*3/uL (0.00-0.03); Imm Gran Pct Auto 0.4 % (0.0-0.4); Lymphocytes Absolute Auto 0.4 X10*3/uL (1.2-4.9); Lymphocytes Percent Auto 3.3 % (20-40); Mean Corpuscular HGB Conc 33.1 g/dl (31.0-36.0); Mean Corpuscular Volume 87.6 fL (80.0-98.0); Mean Platelet Volume 12.2 fL (9.4-12.4); Monocytes Absolute Auto 0.7 X10*3/uL (0.1-1.2); Neutrophils Absolute Auto 9.5 x10*3/uL (2.0-8.3); Neutrophils Percent Auto 89.1 % (45-73); Platelet Count 186 X10*3/uL (160-400); Red Blood Count 4.69 X10*6/uL (4.60-5.80); Red Cell Distribution Width 13.7 % (11.0-16.0); White Blood Count 10.6 X10*3/uL (4.8-10.8)
[2022-02-25 14:20] LABS: Lactic Acid 1.6 mmol/L (0.5-2.0)
[2022-02-25 14:32] LABS: Alanine Aminotransferase 23 U/L (0-40); Albumin Level 3.8 g/dL (3.5-5.0); Alkaline Phosphatase 62 U/L (39-117); Anion Gap 16 (12-20); Aspartate Amino Transferase 24 U/L (5-37); Bilirubin Direct 0.3 mg/dL (0.0-0.5); Bilirubin Total 0.6 mg/dL (0.0-1.0); Blood Urea Nitrogen 18 mg/dL (9-16); C Reactive Protein 10.88 mg/dL (< or = 0.50); Calcium 8.7 mg/dL (8.4-10.2); Carbon Dioxide 25 mmol/L (22-29); Chloride 94 mmol/L (96-108); Creatinine Clr Calc Pharmacy 68.5; Estimated Glomerular Filt Rate > 60; Glucose Random 145 mg/dL (60-115); Lactate Dehydrogenase 197 U/L (118-273); Lipase 17 U/L (8-78); Magnesium 1.9 mg/dL (1.6-2.6); Sodium 131 mmol/L (135-145); Total Protein 6.7 g/dL (6.5-8.0)
[2022-02-25 14:34] LABS: Troponin-I High Sensitivity 10.9 ng/L (<3.5-35.0)
[2022-02-25 14:35] LABS: B Type Natriuretic Peptide 55 pg/mL (<100)
[2022-02-25 14:49] LABS: Procalcitonin 0.77 ng/mL
[2022-02-25 14:53] LABS: Ferritin 396 ng/mL (20-250)
--- NOTE | 2022-02-25 14:56 | PHA.MEDREC ---
Pharmacy Consult ? Medication Reconciliation Pharmacy has completed the medication reconciliation. Spoke with the patients shelter who provided a list from the department of developmental services.
[2022-02-25 15:06] LABS: VBG HCO3 25 mmol/L (22-26); VBG pCO2 34 mmHg; VBG pH 7.47 (7.32-7.43); VBG pO2 125 mmHg
[2022-02-25 15:06] LABS: Venous Blood Gas Refer to POC result
[2022-02-25] MEDS: Piperacillin Sodium/Tazobactam 3.375 GM in 0.9 % Sodium Chloride 50 ML IV (15:14)
[2022-02-25 15:25] LABS: COVID-19 Test Positive (Negative); IDNOW Serial# 16C4AD1C
[2022-02-25] MEDS: Etomidate 20 MG/10 ML VIAL 10 MG IVPUSH (16:14)
[2022-02-25] MEDS: Rocuronium Bromide 50 MG/5 ML VIAL IVPUSH (16:15)
[2022-02-25] MEDS: Midazolam HCl/NS 50 MG/50 ML PLAST..BAG IVCONT (16:21)
[2022-02-25] MEDS: fentaNYL citrate/NS 1,000 MCG/100 ML PLAST..BAG 10 MCG IVCONT ×2 (16:21→21:26)
--- NOTE | 2022-02-25 16:28 | PC.NURSE ---
Pt intubated by with RT, this RN, and second RN present. Pt given etomidate and rocuronium for sedation/paralytic agents. 7.5 tube noted at 23cm when intubation was completed. VS stable during intubation.
--- NOTE | 2022-02-25 16:36 | P.HPCC_ITS ---
History of Present Illness Date of Service: 02/25/22 Attending physician on admission: Lucio Johnson Chief Complaint: Shortness of breath and altered mental status 71-year-old male hypertensive and hyperlipidemic with benign prostatic hypertrophy noted to be tachypneic with a marked drop in oxygen saturation clearly respiratory distress and altered mental status with increased agitation and he is already a [facility] patient who is nonverbal and deaf and has no ability to really communicate Got progressively worse to the point where he was staring off his oxygen source clearly really from his delirium and acute indication for intubation which was performed with rocuronium paralysis and apparently very the no foul colored sputum was removed and there was a question of course is to whether not the could have been an aspiration superimposed so at this point he was covered in the emergency room with vancomycin and Zosyn Review of Systems Review of Systems: Yes Unobtainable due to mental status PMFSH Past Medical History Medical History Barretts syndrome BPH (benign prostatic hyperplasia) GERD (gastroesophageal reflux disease) [place] (hard of hearing) HTN (hypertension) Non-verbal learning disorder Social History Social History (Updated 02/25/22 @ 13:21 by Jeri Walden DO) Patient Tobacco Use Status: Tobacco use Unknown Advance Directives: No Advance Directives Information Provided: No Meds Allergies Allergy/AdvReac Type Severity Reaction Status Date / Time azithromycin [AZITHROMYCIN] Allergy Unknown UNKOWN Verified 08/25/21 10:17 Macrolide Antibiotics Allergy Unknown unknown Verified 08/25/21 10:17 [MACROLIDE ANTIBIOTICS] Macrolides and ketolides Allergy Unknown Unknown Uncoded 08/25/21 10:17 Active Medications: Current Medications Fentanyl (Sublimaze/Ns) 1,000 mcg in 100 mls @ 0 mls/hr IVCONT .Q0M [facility]; Protocol Last Admin: 02/25/22 16:21 Dose: 100 mcg/hr, 10 mls/hr Documented by: Midazolam HCl (Versed) 50 mg in 50 mls @ 2 mls/hr IVCONT .Q24H NITHYA Last Admin: 02/25/22 16:21 Dose: 2 mg/hr, 2 mls/hr Documented by: Vancomycin HCl 1,250 mg/ (Sodium Chloride) 250 mls @ 166.667 mls/hr IV ONCE ONE Stop: 02/25/22 17:59 Naloxone HCl (Naloxone Hcl 0.4 Mg/Ml Vial) 0.2 mg IVPUSH Q2M PRN PRN Reason: Excessive sedation or RR < 8 Pharmacy Consult (Consult Rx Perform Med Rec) 1 each MISCELLANE ONCE PRN PRN Reason: Consult order Home Medications Medication Instructions Recorded Confirmed Last Taken Type docusate sodium 100 mg tablet 200 mg PO DAILY 11/19/20 02/25/22 Unknown History hydrochlorothiazide 25 mg tablet 25 mg PO DAILY@0800 11/19/20 02/25/22 Unknown History lisinopril 20 mg tablet 20 mg PO DAILY 11/19/20 02/25/22 Unknown History pravastatin 40 mg tablet 40 mg PO BEDTIME 11/19/20 02/25/22 Unknown History lactulose 10 gram/15 mL oral 30 ml PO BEDTIME 08/25/21 02/25/22 Unknown History solution loperamide 2 mg capsule 2 mg PO QID PRN 08/25/21 02/25/22 Unknown History loratadine 10 mg tablet 10 mg PO DAILY PRN 08/25/21 02/25/22 Unknown History multivitamin with folic acid 400 1 tab PO BEDTIME 08/25/21 02/25/22 Unknown History mcg tablet (Thera) omeprazole 40 mg capsule,delayed 40 mg PO DAILY 08/25/21 02/25/22 Unknown History release Lactobacillus rhamnosus GG 10 1 cap PO DAILY 02/25/22 02/25/22 Unknown History billion cell capsule (Culturelle) bacitracin zinc 500 unit/gram 1 appl TOPICAL QID 02/25/22 02/25/22 Unknown History topical ointment lorazepam 2 mg tablet 1 tab PO DAILY PRN 02/25/22 02/25/22 Unknown History magnesium hydroxide 400 mg/5 mL 30 ml PO BEDTIME 02/25/22 02/25/22 Unknown History oral suspension (Milk of Magnesia) oxybutynin chloride 10 mg 1 tab PO DAILY 02/25/22 02/25/22 Unknown History tablet,extended release 24 hr polyethylene glycol 3350 17 17 g PO DAILY@1700 02/25/22 02/25/22 Unknown History gram/dose oral powder (Miralax) Physical Exam Vital Signs: Vital Signs: Last Vital Signs Temp 99.6 F 02/25/22 15:06 Pulse 120 H 02/25/22 16:21 Resp 18 02/25/22 16:21 BP 142/89 H 02/25/22 16:21 Pulse Ox 99 02/25/22 16:21 BMI result Body Mass Index 31.1 Currently sedated and intubated No neck vein distension good bilateral carotid upstrokes no gallops [place] bilaterally Abdomen soft with no organomegaly No peripheral edema good peripheral pulses EKG normal sinus rhythm and within normal limits Results Labs CBC and Chem 7: 02/25/22 14:04 02/25/22 14:05 Labs: Laboratory Results - last 24 hr 02/25/22 02/25/22 02/25/22 13:10 14:04 14:04 MCV 87.6 MCH 29.0 MCHC 33.1 RDW 13.7 Plt Count 186 MPV 12.2 Immature Gran % (Auto) 0.4 Neut % (Auto) 89.1 H Lymph % (Auto) 3.3 L [place] % (Auto) 7.0 Eos % (Auto) 0.0 Baso % (Auto) 0.2 Lymph # (Auto) 0.4 L [place] # (Auto) 0.7 Eos # (Auto) 0.0 Baso # (Auto) 0.0 Abs Immat Gran (auto) 0.04 H Absolute Neuts (auto) 9.5 H Absolute Nucleated RBC 0.000 Nucleated RBC % (auto) 0.0 PT 12.6 INR 1.1 APTT 29.2 D-Dimer High Sensitivty 1091 VBG pH VBG pCO2 VBG pO2 VBG HCO3 VBG O2 Saturation VBG Base Excess Anion Gap Estim Creat Clear Calc Estimated GFR Random Glucose Lactic Acid Calcium Magnesium Ferritin Total Bilirubin Direct Bilirubin AST ALT Alkaline Phosphatase Lactate Dehydrogenase Total Creatine Kinase Troponin I High Sens C-Reactive Protein B-Natriuretic Peptide 55 Total Protein Albumin Lipase Procalcitonin COVID-19 ([facility]IE) COVID-19 Clin Com 02/25/22 02/25/22 02/25/22 14:04 14:04 14:04 MCV MCH MCHC RDW Plt Count MPV Immature Gran % (Auto) Neut % (Auto) Lymph % (Auto) [place] % (Auto) Eos % (Auto) Baso % (Auto) Lymph # (Auto) [place] # (Auto) Eos # (Auto) Baso # (Auto) Abs Immat Gran (auto) Absolute Neuts (auto) Absolute Nucleated RBC Nucleated RBC % (auto) PT INR APTT D-Dimer High Sensitivty VBG pH VBG pCO2 VBG pO2 VBG HCO3 VBG O2 Saturation VBG Base Excess Anion Gap Estim Creat Clear Calc Estimated GFR Random Glucose Lactic Acid 1.6 Calcium Magnesium Ferritin 396 H Total Bilirubin Direct Bilirubin AST ALT Alkaline Phosphatase Lactate Dehydrogenase Total Creatine Kinase Troponin I High Sens 10.9 C-Reactive Protein B-Natriuretic Peptide Total Protein Albumin Lipase Procalcitonin COVID-19 (AN[facility]ARIE) COVID-19 Clin Com 02/25/22 02/25/22 02/25/22 14:05 14:05 14:39 MCV MCH MCHC RDW Plt Count MPV Immature Gran % (Auto) Neut % (Auto) Lymph % (Auto) [place] % (Auto) Eos % (Auto) Baso % (Auto) Lymph # (Auto) [place] # (Auto) Eos # (Auto) Baso # (Auto) Abs Immat Gran (auto) Absolute Neuts (auto) Absolute Nucleated RBC Nucleated RBC % (auto) PT INR APTT D-Dimer High Sensitivty VBG pH VBG pCO2 VBG pO2 VBG HCO3 VBG O2 Saturation VBG Base Excess Anion Gap 16 Estim Creat Clear Calc 68.5 Estimated GFR > 60 Random Glucose 145 H Lactic Acid Calcium 8.7 Magnesium 1.9 Ferritin Total Bilirubin 0.6 Direct Bilirubin 0.3 AST 24 ALT 23 Alkaline Phosphatase 62 D Lactate Dehydrogenase 197 Total Creatine Kinase 251 H Troponin I High Sens C-Reactive Protein 10.88 H B-Natriuretic Peptide Total Protein 6.7 Albumin 3.8 Lipase 17 Procalcitonin 0.77 COVID-19 ([facility]IE) Positive A COVID-19 Clin Com See Note 02/25/22 14:59 MCV MCH MCHC RDW Plt Count MPV Immature Gran % (Auto) Neut % (Auto) Lymph % (Auto) [place] % (Auto) Eos % (Auto) Baso % (Auto) Lymph # (Auto) [place] # (Auto) Eos # (Auto) Baso # (Auto) Abs Immat Gran (auto) Absolute Neuts (auto) Absolute Nucleated RBC Nucleated RBC % (auto) PT INR APTT D-Dimer High Sensitivty VBG pH 7.47 H VBG pCO2 34 VBG pO2 125 VBG HCO3 25 VBG O2 Saturation 100.0 VBG Base Excess 2.0 Anion Gap Estim Creat Clear Calc Estimated GFR Random Glucose Lactic Acid Calcium Magnesium Ferritin Total Bilirubin Direct Bilirubin AST ALT Alkaline Phosphatase Lactate Dehydrogenase Total Creatine Kinase Troponin I High Sens C-Reactive Protein B-Natriuretic Peptide Total Protein Albumin Lipase Procalcitonin COVID-19 ([facility]) COVID-19 Clin Com Imaging Radiologist's Impressions: Impressions Chest X-Ray 02/25/22 13:27 IMPRESSION: New tiny right pleural effusion. Assessment and Plan (1) COVID-19: Status: Acute (2) Respiratory failure: Qualifiers: Chronicity: acute Respiratory failure complication: hypoxia Qualified Code(s): J96.01 - Acute respiratory failure with hypoxia Status: Acute (3) Acute delirium: Status: Acute (4) Hypoxia: Status: Acute (5) BPH (benign prostatic hyperplasia): Status: Acute (6) ARDS (adult respiratory distress syndrome): Status: Acute (7) Acute metabolic encephalopathy: Status: Acute Plan For now he will remain sedated and intubated with with respiratory support home we are somewhat unclear as to how long he has been symptomatic but I know acutely symptomatic really since yesterday when he was tested positive so we might still be within of 48-72 hour frame work
--- NOTE | 2022-02-25 17:40 | PC.NURSE ---
Pt remains stable on AC settings of 18, 400, and 10. Rass score =0. He is arrousable to tactile stimuli but compliant with vent on fentanyl and versed GTT.
[2022-02-25] MEDS: Heparin Sodium,Porcine 5,000 UNIT/ML VIAL 5000 UNIT SUBCUT (18:34)
[2022-02-25] MEDS: iohexoL 350 MG/ML 100 ML INFUS..BTL IV (19:26)
--- NOTE | 2022-02-25 19:33 | PC.NURSE ---
report given to INSPECTOR AND MENDER
[2022-02-25] MEDS: propofoL 1,000 MG/100 ML VIAL 15.75 MG IVCONT (20:12)
[2022-02-25] MEDS: Famotidine/PF 20 MG/2 ML VIAL IVPUSH (20:12)
[2022-02-25] MEDS: vancomycin HCL 1,500 MG in 0.9 % Sodium Chloride 500 ML 333.33 MG IV (20:14)
[2022-02-25] MEDS: Phenylephrine HCL 20 MG in 0.9 % Sodium Chloride 250 ML 1288.22 MG IVCONT (20:48)
--- NOTE | 2022-02-25 22:13 | W.PM.CCHP ---
Procedures Date of Service Date of Service: 02/25/22 Central Line Placement Right IJ: Central Line Comments: venous access needed Consent for Procedure: Emergent-no informed consent obtained Time out performed: Yes Sterile Technique Used: Yes Patient placed on monitor/pulse ox: Yes MD prep: mask, gown and gloves Central line prep: Chlorhexidine scrub and sterile drapes applied Ultrasound used for placement: Yes Central line lumen inserted: triple Post procedure: sutured in place, good blood return, all ports aspirated, flushed, capped and sterile dressing applied Post procedure x-ray: tip of catheter in good position and no pneumothorax seen Patient tolerated procedure: well and no complications Complications: none
[2022-02-25] MEDS: Piperacillin Sodium/Tazobactam 4.5 GM in 0.9 % Sodium Chloride 100 ML IV (22:48)
[2022-02-26] VITALS (35 sets, daily range): BP systolic 96–145; BP diastolic 55–86; PULSE 49–72; RESP 17–18; TEMP 34.5–37.3; O2SAT 93–99; BMI 29.9
[2022-02-26] MEDS: Heparin Sodium,Porcine 5,000 UNIT/ML VIAL 5000 UNIT SUBCUT ×4 (00:17→23:58)
[2022-02-26 00:51] LABS: Appearance Urine CLEAR; Color Urine YELLOW; Glucose Urine UA NEG (NEG); Leukocyte Esterase Urine NEG (NEG); Nitrite Urine NEG (NEG); PH 6.5 (5.0-8.0); Specific Gravity - Urine <= 1.005 (1.005-1.025); Urine Blood NEG (NEG); Urine Ketones NEG (NEG); Urine Protein NEG (NEG-TRACE)
[2022-02-26] MEDS: propofoL 1,000 MG/100 ML VIAL 10.5 MG IVCONT ×2 (02:13→09:43)
[2022-02-26] MEDS: Piperacillin Sodium/Tazobactam 4.5 GM in 0.9 % Sodium Chloride 100 ML IV (05:04)
[2022-02-26 05:21] LABS: VBG Base Excess 2.5 mmol/L; VBG HCO3 28 mmol/L (22-26); VBG pCO2 46 mmHg; VBG pH 7.38 (7.32-7.43); VBG pO2 53 mmHg
--- NOTE | 2022-02-26 05:22 | PC.NURSE ---
recieved patient from ER, initial contact: Pt intubated with a 7.5 @ 25. AC R18 V400 peep 10 02 50%. LS clear. Pt normal sinus in the 60s-80s. Pt has no edema. Pt sedated with fent and midazolam, switched to propofol and fentanyl. Prop at 20 fent at 100. Pt does not respond but occasionally moves legs and toes. Pt pupils are constricted. Pt has large, round stomach and an OG tube. Pt placed on intermittent suction and clear/greenish output was produced. Pt has sanders with 100-125ml/hr output. Skin is intact. Pt has TLC RIJ placed in ICU. VSS. Pt was initially on crystal peripherally, but once the central line was placed pt was switched to levo and is currently running at 0.08 keeping bp's in the low 100s and MAP >65.
[2022-02-26 05:36] LABS: MANUAL DIFF FLAG NO
[2022-02-26 05:42] LABS: Basophils Percent Auto 0.1 % (0-2); Hematocrit 36.8 % (42.0-52.0); Imm Gran Abs Auto 0.07 X10*3/uL (0.00-0.03); Imm Gran Pct Auto 0.4 % (0.0-0.4); Lymphocytes Absolute Auto 1.6 X10*3/uL (1.2-4.9); Lymphocytes Percent Auto 9.9 % (20-40); Mean Corpuscular HGB Conc 32.6 g/dl (31.0-36.0); Mean Corpuscular Hemoglobin 29.1 pg (27.0-33.0); Mean Corpuscular Volume 89.1 fL (80.0-98.0); Mean Platelet Volume 12.4 fL (9.4-12.4); Monocytes Absolute Auto 1.5 X10*3/uL (0.1-1.2); Monocytes Percent Auto 9.3 % (2-11); Neutrophils Absolute Auto 12.7 x10*3/uL (2.0-8.3); Neutrophils Percent Auto 80.3 % (45-73); Platelet Count 190 X10*3/uL (160-400); Red Blood Count 4.13 X10*6/uL (4.60-5.80); Red Cell Distribution Width 13.8 % (11.0-16.0); White Blood Count 15.9 X10*3/uL (4.8-10.8)
[2022-02-26 06:12] LABS: Alanine Aminotransferase 23 U/L (0-40); Albumin Level 3.2 g/dL (3.5-5.0); Alkaline Phosphatase 47 U/L (39-117); Anion Gap 11 (12-20); Aspartate Amino Transferase 23 U/L (5-37); Bilirubin Total 0.5 mg/dL (0.0-1.0); Blood Urea Nitrogen 17 mg/dL (9-16); Calcium 8.2 mg/dL (8.4-10.2); Carbon Dioxide 29 mmol/L (22-29); Chloride 97 mmol/L (96-108); Creatinine Clr Calc Pharmacy 70.1; Estimated Glomerular Filt Rate > 60; Glucose Random 161 mg/dL (60-115); Magnesium 2.2 mg/dL (1.6-2.6); Phosphorus 3.2 mg/dL (2.7-4.5); Potassium 4.3 mmol/L (3.3-5.1); Sodium 133 mmol/L (135-145); Total Protein 5.7 g/dL (6.5-8.0)
[2022-02-26] MEDS: fentaNYL citrate/NS 1,000 MCG/100 ML PLAST..BAG 10 MCG IVCONT (07:07)
[2022-02-26 08:44] LABS: Venous Blood Gas Refer to POC result
[2022-02-26 09:01] LABS: Glucose, Whole Blood 133 mg/dL (60-115)
[2022-02-26] MEDS: Famotidine/PF 20 MG/2 ML VIAL IVPUSH ×2 (09:27→20:37)
[2022-02-26] MEDS: Chlorhexidine Gluc Oral Rinse 15 ML MOUTHWASH BUCCAL ×3 (09:27→20:37)
[2022-02-26] MEDS: dexAMETHasone sod phosphate 4 MG/ML VIAL 6 MG IVPUSH (09:27)
--- NOTE | 2022-02-26 10:17 | HE.PHANOTE ---
next level due 02/27 @1600, cr slightly improved, predicted auc is 440
--- NOTE | 2022-02-26 10:18 | PM.CCPN ---
Subjective Subjective Date of Service: 02/26/22 Interval History: 71-year-old gentleman with underlying history of hypertension, BPH, calf and nonverbal at baseline, resident of [facility] admitted on 02/25/2022 with hypoxemia and alteration of mental status. On ER evaluation patient was noted to be significantly hypoxic and unable to compliant with noninvasive supplemental oxygen. Also he was noted to be COVID-19 positive. Patient was intubated and started on dexamethasone and broad-spectrum antibiotics, and transferred to the intensive care unit. No events overnight. Critical Care Time (minutes): 45 Physical Exam Vital Signs: Vital Signs: Last Vital Signs Temp 98.8 F 02/26/22 10:00 Pulse 63 02/26/22 10:00 Resp 18 02/26/22 10:00 BP 103/56 L 02/26/22 10:00 Pulse Ox 96 02/26/22 10:00 BMI result Body Mass Index 29.9 Const: General: no acute distress and other (Sedated on the vent) Eyes: Sclerae: sclerae normal EOM: EOMs intact bilaterally Neck: Neck: Yes no lymphadenopathy, Yes trachea midline and Yes supple Resp: Auscultation: crackles (Bibasilar) Cardio: Rate: regular rate Rhythm: regular rhythm Heart sounds: no gallops, no murmurs and no rubs GI: Palpation (GI): Soft to palpation and Other GI palpation findings present ( Nontender) Auscultation: normal bowel sounds Extrem: General: Yes no pedal edema, No clubbing and No cyanosis Objective Data Labs CBC & Chem 7: 02/26/22 05:13 02/26/22 05:13 Labs: Laboratory Results - last 24 hr 02/25/22 02/25/22 02/25/22 13:10 14:04 14:04 WBC 10.6 RBC 4.69 Hgb 13.6 L Hct 41.1 L MCV 87.6 MCH 29.0 MCHC 33.1 RDW 13.7 Plt Count 186 MPV 12.2 Immature Gran % (Auto) 0.4 Neut % (Auto) 89.1 H Lymph % (Auto) 3.3 L [place] % (Auto) 7.0 Eos % (Auto) 0.0 Baso % (Auto) 0.2 Lymph # (Auto) 0.4 L [place] # (Auto) 0.7 Eos # (Auto) 0.0 Baso # (Auto) 0.0 Abs Immat Gran (auto) 0.04 H Absolute Neuts (auto) 9.5 H Absolute Nucleated RBC 0.000 Nucleated RBC % (auto) 0.0 PT 12.6 INR 1.1 APTT 29.2 D-Dimer High Sensitivty 1091 VBG pH VBG pCO2 VBG pO2 VBG HCO3 VBG O2 Saturation VBG Base Excess Sodium Potassium Chloride Carbon Dioxide Anion Gap BUN Creatinine Estim Creat Clear Calc Estimated GFR POC Glucose Random Glucose Lactic Acid Calcium Phosphorus Magnesium Ferritin Total Bilirubin Direct Bilirubin AST ALT Alkaline Phosphatase Lactate Dehydrogenase Total Creatine Kinase Troponin I High Sens C-Reactive Protein B-Natriuretic Peptide 55 Total Protein Albumin Lipase Procalcitonin Urine Color Urine Appearance Urine pH Ur Specific [place] Urine Protein Urine Glucose (UA) Urine Ketones Urine Blood Urine Nitrite Ur Leukocyte Esterase COVID-19 (ANNAMARIE) COVID-19 [place] 02/25/22 02/25/22 02/25/22 14:04 14:04 14:04 WBC RBC Hgb Hct MCV MCH MCHC RDW Plt Count MPV Immature Gran % (Auto) Neut % (Auto) Lymph % (Auto) [place] % (Auto) Eos % (Auto) Baso % (Auto) Lymph # (Auto) [place] # (Auto) Eos # (Auto) Baso # (Auto) Abs Immat Gran (auto) Absolute Neuts (auto) Absolute Nucleated RBC Nucleated RBC % (auto) PT INR APTT D-Dimer High Sensitivty VBG pH VBG pCO2 VBG pO2 VBG HCO3 VBG O2 Saturation VBG Base Excess Sodium Potassium Chloride Carbon Dioxide Anion Gap BUN Creatinine Estim Creat Clear Calc Estimated GFR POC Glucose Random Glucose Lactic Acid 1.6 Calcium Phosphorus Magnesium Ferritin 396 H Total Bilirubin Direct Bilirubin AST ALT Alkaline Phosphatase Lactate Dehydrogenase Total Creatine Kinase Troponin I High Sens 10.9 C-Reactive Protein B-Natriuretic Peptide Total Protein Albumin Lipase Procalcitonin Urine Color Urine Appearance Urine pH Ur Specific [place] Urine Protein Urine Glucose (UA) Urine Ketones Urine Blood Urine Nitrite Ur Leukocyte Esterase COVID-19 (ANNAMARIE) COVID-19 [place] Com 02/25/22 02/25/22 02/25/22 14:05 14:05 14:39 WBC RBC Hgb Hct MCV MCH MCHC RDW Plt Count MPV Immature Gran % (Auto) Neut % (Auto) Lymph % (Auto) [place] % (Auto) Eos % (Auto) Baso % (Auto) Lymph # (Auto) [place] # (Auto) Eos # (Auto) Baso # (Auto) Abs Immat Gran (auto) Absolute Neuts (auto) Absolute Nucleated RBC Nucleated RBC % (auto) PT INR APTT D-Dimer High Sensitivty VBG pH VBG pCO2 VBG pO2 VBG HCO3 VBG O2 Saturation VBG Base Excess Sodium 131 L Potassium 4.0 Chloride 94 L Carbon Dioxide 25 Anion Gap 16 BUN 18 H Creatinine 1.01 Estim Creat Clear Calc 68.5 Estimated GFR > 60 POC Glucose Random Glucose 145 H Lactic Acid Calcium 8.7 Phosphorus Magnesium 1.9 Ferritin Total Bilirubin 0.6 Direct Bilirubin 0.3 AST 24 ALT 23 Alkaline Phosphatase 62 D Lactate Dehydrogenase 197 Total Creatine Kinase 251 H Troponin I High Sens C-Reactive Protein 10.88 H B-Natriuretic Peptide Total Protein 6.7 Albumin 3.8 Lipase 17 Procalcitonin 0.77 Urine Color Urine Appearance Urine pH Ur Specific [place] Urine Protein Urine Glucose (UA) Urine Ketones Urine Blood Urine Nitrite Ur Leukocyte Esterase COVID-19 (ANNAMARIE) Positive A COVID-19 Clin Com See Note 02/25/22 02/26/22 02/26/22 14:59 00:30 05:13 WBC 15.9 H RBC 4.13 L Hgb 12.0 L Hct 36.8 L MCV 89.1 MCH 29.1 MCHC 32.6 RDW 13.8 Plt Count 190 MPV 12.4 Immature Gran % (Auto) 0.4 Neut % (Auto) 80.3 H Lymph % (Auto) 9.9 L [place] % (Auto) 9.3 Eos % (Auto) 0.0 Baso % (Auto) 0.1 Lymph # (Auto) 1.6 [place] # (Auto) 1.5 H Eos # (Auto) 0.0 Baso # (Auto) 0.0 Abs Immat Gran (auto) 0.07 H Absolute Neuts (auto) 12.7 H Absolute Nucleated RBC 0.000 Nucleated RBC % (auto) 0.0 PT INR APTT D-Dimer High Sensitivty VBG pH 7.47 H VBG pCO2 34 VBG pO2 125 VBG HCO3 25 VBG O2 Saturation 100.0 VBG Base Excess 2.0 Sodium Potassium Chloride Carbon Dioxide Anion Gap BUN Creatinine Estim Creat Clear Calc Estimated GFR POC Glucose Random Glucose Lactic Acid Calcium Phosphorus Magnesium Ferritin Total Bilirubin Direct Bilirubin AST ALT Alkaline Phosphatase Lactate Dehydrogenase Total Creatine Kinase Troponin I High Sens C-Reactive Protein B-Natriuretic Peptide Total Protein Albumin Lipase Procalcitonin Urine Color YELLOW Urine Appearance CLEAR Urine pH 6.5 Ur Specific [place] <= 1.005 Urine Protein NEG Urine Glucose (UA) NEG Urine Ketones NEG Urine Blood NEG Urine Nitrite NEG Ur Leukocyte Esterase NEG COVID-19 (ANNAMARIE) COVID-19 Clin Com 02/26/22 02/26/22 02/26/22 05:13 05:13 08:58 WBC RBC Hgb Hct MCV MCH MCHC RDW Plt Count MPV Immature Gran % (Auto) Neut % (Auto) Lymph % (Auto) [place] % (Auto) Eos % (Auto) Baso % (Auto) Lymph # (Auto) [place] # (Auto) Eos # (Auto) Baso # (Auto) Abs Immat Gran (auto) Absolute Neuts (auto) Absolute Nucleated RBC Nucleated RBC % (auto) PT INR APTT D-Dimer High Sensitivty VBG pH 7.38 VBG pCO2 46 VBG pO2 53 VBG HCO3 28 H VBG O2 Saturation 82.0 VBG Base Excess 2.5 Sodium 133 L Potassium 4.3 Chloride 97 Carbon Dioxide 29 Anion Gap 11 L BUN 17 H Creatinine 0.97 Estim Creat Clear Calc 70.1 Estimated GFR > 60 POC Glucose 133 H Random Glucose 161 H Lactic Acid Calcium 8.2 L Phosphorus 3.2 Magnesium 2.2 Ferritin Total Bilirubin 0.5 Direct Bilirubin AST 23 ALT 23 Alkaline Phosphatase 47 D Lactate Dehydrogenase Total Creatine Kinase Troponin I High Sens C-Reactive Protein B-Natriuretic Peptide Total Protein 5.7 L Albumin 3.2 L Lipase Procalcitonin Urine Color Urine Appearance Urine pH Ur Specific [place] Urine Protein Urine Glucose (UA) Urine Ketones Urine Blood Urine Nitrite Ur Leukocyte Esterase COVID-19 (ANNAMARIE) COVID-19 Clin Com Microbiology Microbiology Results: Microbiology 02/25/22 14:56 Blood - Venous Blood Culture - Preliminary Progress Note: A&P Assessment and plan (1) ARDS (adult respiratory distress syndrome): Status: Acute (2) COVID-19: Status: Acute (3) Respiratory failure: Status: Acute (4) Acute delirium: Status: Acute Plan Assessment: 71-year-old gentleman, nonverbal at baseline, resident of [facility] facility, admitted with alteration of mental status and acute hypoxic respiratory failure, COVID-19 positive, requiring intubation and ventilatory support. Plan: Neuro: No acute issues. Deaf and nonverbal at baseline. Cardiac: No acute issues. Pulmonary: Acute hypoxic respiratory failure secondary to COVID-19 ARDS now requiring ventilatory support. Continue to titrate off ventilatory support as tolerated. Renal: No acute issues. Endo: No acute issues. GI: No acute issues. ID: No acute issues Heme/Onc: No acute issues. Psych: No acute issues. Miscellaneous: No acute issues. Prophylaxis: Heparin, famotidine Diet: Tube feeds Critical care time spent: 45 minutes Quality Stroke Does the patient have a stroke diagnosis?: No VTE Prior VTE?: No VTE Risk Level:: Medical - moderate - high VTE Device Contraindication: N/A - Device Ordered VTE Drug Contraindication: N/A - Med Ordered
--- NOTE | 2022-02-26 10:19 | MHC.CM.PN ---
Addendum entered by Roro Cruz 02/26/22 10:30: Spoke at length with pt's sister/guardian Sharmin who resides in [place]: Pt is from the now closed [facility]. She understands the plan of care and welcomes updates at any time. She confirmed that pt is a full code but would consider SYSTEMS DESIGNER should pt progress to that. Pt would need to have SYSTEMS DESIGNER status changes initiated through the [place] [facility] system as he is a [facility] client. CM to follow Original Note: Pt is COVID + on ventilatory support in ICU. He resides at a [facility] [place] [facility] and has a legal guardian on file noting his sister Sharmin as his agent. [place] [facility]: spoke with Juliette who states pt is a full code and is extremely GRAYLING (almost totally deaf). He is also unable to read or speak but can understand a few simple ASL gestures like food, drink, bathroom. He is ambulatory without devices and is on a pureed, thickened liquid diet. He is able to feed himself with supervision. Pt should return to [facility] without special forms per Juliette but will need BLS transport. He has been vaxed x 3 with [facility]. Call to be placed to Sharmin for a clinical update. IMM in chart: guardianship on file. CM to follow
--- NOTE | 2022-02-26 10:37 | P.CDIC_ITS ---
CDI Concurrent Query Documentation Clarification: PHYSICIAN'S DOCUMENTATION REQUEST Date of Query: 02/26/22 1037 Patient Name: Wilfredo Sands Admit Date: 02/25/22 Dear Doctor, A review of the medical record indicates additional documentation may be needed. Please review below and update the documentation accordingly. Risk Factors/Clinical Indicators/Treatments Covid-19, short of breath, altered mental status, delirium and agitation, ICU admit. Temp 101.7 100.8 hot to touch, sat's in 70's hypoxic. HR 120 RR 21 BP 90/54 L Pulse ox 90 L IV Vancomycin, Zosyn, Dexamethasone, Oxygen. Covid positive with metabolic encephalopathy and acute respiratory failure/ARDS. Please clarify which of the following most accurately describes the above abnor malities: Viral sepsis due to Covid-19 with ARDS (possible, presumed, treating, not treating) Covid-19 with ARDS * Sepsis * Systemic manifestations of infection, with 2 or more SIRS criteria which include: -Fever > 100.4F or hypothermia < 96.8 F -Leukocytosis - WBC > 12,000 or leukopenia, WBC < 4,000 or > 10% bands -Tachycardia > 90 beats/minute -Tachypnea - RR > 20 breaths/minute or PaCO2 < 32mmHg * Indicate the knows or suspected organism * Indicate the known or suspected underlying infection, such as UTI, pneumonia, or cellulitis * Indicate if there is associated organ dysfunction, such as renal or respiratory failure * Other * Unable to determine Use of terms such as suspected, likely, concern for, or probable (associated with a specific diagnosis that is being evaluated, monitored, or treated as if it exists) are acceptable and can be coded in the inpatient setting, when documented at the time of discharge. Thank you, Nany Juarez [facility], [facility]IS Extension: [phone] Please use your independent medical judgment in providing your response. THIS QUERY IS PART OF THE PERMANENT MEDICAL RECORD Provider Response: Other ( Viral sepsis with ARDS due to COVID-19.) Other Diagnosis: Viral sepsis with ARDS due to COVID-19.
[2022-02-26] MEDS: Piperacillin Sodium/Tazobactam 3.375 GM in 0.9 % Sodium Chloride 50 ML IV ×3 (11:07→22:15)
[2022-02-26 11:11] LABS: Glucose, Whole Blood 125 mg/dL (60-115)
[2022-02-26] MEDS: propofoL 1,000 MG/100 ML VIAL 15.75 MG IVCONT (15:58)
[2022-02-26] MEDS: vancomycin HCL 1,500 MG in 0.9 % Sodium Chloride 500 ML 333.33 MG IV (17:36)
[2022-02-26] MEDS: Insulin Lispro 100 UNIT/ML 3 ML VIAL SUBCUT (17:40)
[2022-02-26 17:50] LABS: Glucose, Whole Blood 153 mg/dL (60-115)
[2022-02-26] MEDS: polyethylene glycoL 3350 17 GM POWD.PACK PO (22:37)
[2022-02-26 23:41] LABS: Glucose, Whole Blood 135 mg/dL (60-115)
[2022-02-26] MEDS: Midazolam HCl/NS 50 MG/50 ML PLAST..BAG IVCONT (23:58)
[2022-02-27] VITALS (42 sets, daily range): BP systolic 79–160; BP diastolic 44–83; PULSE 48–79; RESP 17–22; TEMP 34.9–37.3; O2SAT 92–98; BMI 30.6
[2022-02-27] MEDS: propofoL 1,000 MG/100 ML VIAL 2.63 MG IVCONT (01:06)
[2022-02-27] MEDS: fentaNYL citrate/NS 1,000 MCG/100 ML PLAST..BAG 5 MCG IVCONT (01:52)
[2022-02-27] MEDS: Piperacillin Sodium/Tazobactam 3.375 GM in 0.9 % Sodium Chloride 50 ML IV ×3 (04:50→16:24)
[2022-02-27 05:08] LABS: Glucose, Whole Blood 108 mg/dL (60-115)
[2022-02-27 05:23] LABS: VBG Base Excess 6.1 mmol/L; VBG HCO3 31 mmol/L (22-26); VBG pCO2 46 mmHg; VBG pH 7.43 (7.32-7.43); VBG pO2 56 mmHg
[2022-02-27 05:25] LABS: Venous Blood Gas Refer to POC result
[2022-02-27 05:28] LABS: MANUAL DIFF FLAG NO
[2022-02-27 05:34] LABS: Basophils Percent Auto 0.1 % (0-2); Hematocrit 34.4 % (42.0-52.0); Hemoglobin 11.1 g/dl (14.0-18.0); Imm Gran Abs Auto 0.07 X10*3/uL (0.00-0.03); Imm Gran Pct Auto 0.5 % (0.0-0.4); Lymphocytes Absolute Auto 1.4 X10*3/uL (1.2-4.9); Lymphocytes Percent Auto 10.1 % (20-40); Mean Corpuscular HGB Conc 32.3 g/dl (31.0-36.0); Mean Corpuscular Hemoglobin 29.1 pg (27.0-33.0); Mean Corpuscular Volume 90.3 fL (80.0-98.0); Mean Platelet Volume 12.8 fL (9.4-12.4); Monocytes Absolute Auto 0.7 X10*3/uL (0.1-1.2); Monocytes Percent Auto 5.3 % (2-11); Neutrophils Absolute Auto 11.3 x10*3/uL (2.0-8.3); Platelet Count 167 X10*3/uL (160-400); Red Blood Count 3.81 X10*6/uL (4.60-5.80); Red Cell Distribution Width 13.9 % (11.0-16.0); White Blood Count 13.4 X10*3/uL (4.8-10.8)
[2022-02-27 05:46] LABS: Albumin Level 2.9 g/dL (3.5-5.0); Anion Gap 11 (12-20); Blood Urea Nitrogen 24 mg/dL (9-16); Calcium 8.1 mg/dL (8.4-10.2); Carbon Dioxide 29 mmol/L (22-29); Chloride 101 mmol/L (96-108); Creatinine Clr Calc Pharmacy 72.3; Estimated Glomerular Filt Rate > 60; Glucose Random 118 mg/dL (60-115); Magnesium 2.2 mg/dL (1.6-2.6); Phosphorus 2.5 mg/dL (2.7-4.5); Potassium 4.3 mmol/L (3.3-5.1); Sodium 137 mmol/L (135-145)
[2022-02-27] MEDS: dexAMETHasone sod phosphate 4 MG/ML VIAL 6 MG IVPUSH (08:21)
[2022-02-27] MEDS: Chlorhexidine Gluc Oral Rinse 15 ML MOUTHWASH BUCCAL ×3 (08:21→21:06)
[2022-02-27] MEDS: Famotidine/PF 20 MG/2 ML VIAL IVPUSH ×2 (08:21→21:06)
[2022-02-27] MEDS: Heparin Sodium,Porcine 5,000 UNIT/ML VIAL 5000 UNIT SUBCUT ×2 (08:21→16:24)
[2022-02-27] MEDS: Lactulose 20 GM/30 ML SOLUTION 30 GM PO ×2 (08:30→21:06)
[2022-02-27] MEDS: Albumin Human 25 % 100 ML IV ×3 (08:30→21:07)
[2022-02-27] MEDS: Potassium Phosphate/NS 15 MMOL/250 ML PLAST..BAG 62.5 MMOL IV ×2 (08:33→12:48)
--- NOTE | 2022-02-27 10:35 | P.PNCC_ITS ---
Subjective Subjective Date of Service: 02/27/22 Interval History: 71-year-old gentleman with underlying history of hypertension, BPH, calf and nonverbal at baseline, resident of [facility] facility admitted on 02/25/2022 with hypoxemia and alteration of mental status. On ER evaluation patient was noted to be significantly hypoxic and unable to compliant with noninvasive supplemental oxygen. Also he was noted to be COVID-19 positive. Patient was intubated and started on dexamethasone and broad-spectrum antibiotics, and transferred to the intensive care unit. No events overnight. Critical Care Time (minutes): 45 Physical Exam Vital Signs: Vital Signs: Last Vital Signs Temp 98.7 F 02/27/22 09:00 Pulse 59 02/27/22 10:20 Resp 18 02/27/22 10:20 BP 111/61 02/27/22 10:20 Pulse Ox 94 02/27/22 10:20 BMI result Body Mass Index 30.6 Const: General: no acute distress and other ( sedated on the vent) Eyes: Sclerae: sclerae normal EOM: EOMs intact bilaterally Neck: Neck: Yes no lymphadenopathy, Yes trachea midline and Yes supple Resp: Effort & Inspection: normal respiratory effort and no respiratory distress Auscultation: clear to auscultation bilaterally Cardio: Rate: regular rate Rhythm: regular rhythm Heart sounds: no gallops, no murmurs and no rubs GI: Palpation (GI): Soft to palpation and Other GI palpation findings present ( Nontender) Auscultation: normal bowel sounds Extrem: General: Yes no pedal edema, No clubbing and No cyanosis Objective Data Labs CBC & Chem 7: 02/27/22 05:15 02/27/22 05:15 Labs: Laboratory Results - last 24 hr 02/26/22 02/26/22 02/26/22 11:07 17:39 23:36 WBC RBC Hgb Hct MCV MCH MCHC RDW Plt Count MPV Immature Gran % (Auto) Neut % (Auto) Lymph % (Auto) [place] % (Auto) Eos % (Auto) Baso % (Auto) Lymph # (Auto) [place] # (Auto) Eos # (Auto) Baso # (Auto) Abs Immat Gran (auto) Absolute Neuts (auto) Absolute Nucleated RBC Nucleated RBC % (auto) VBG pH VBG pCO2 VBG pO2 VBG HCO3 VBG O2 Saturation VBG Base Excess Sodium Potassium Chloride Carbon Dioxide Anion Gap BUN Creatinine Estim Creat Clear Calc Estimated GFR POC Glucose 125 H 153 H 135 H Random Glucose Calcium Phosphorus Magnesium Albumin 02/27/22 02/27/22 02/27/22 05:03 05:15 05:15 WBC 13.4 H RBC 3.81 L Hgb 11.1 L Hct 34.4 L MCV 90.3 MCH 29.1 MCHC 32.3 RDW 13.9 Plt Count 167 MPV 12.8 H Immature Gran % (Auto) 0.5 H Neut % (Auto) 84.0 H Lymph % (Auto) 10.1 L [place] % (Auto) 5.3 Eos % (Auto) 0.0 Baso % (Auto) 0.1 Lymph # (Auto) 1.4 [place] # (Auto) 0.7 Eos # (Auto) 0.0 Baso # (Auto) 0.0 Abs Immat Gran (auto) 0.07 H Absolute Neuts (auto) 11.3 H Absolute Nucleated RBC 0.000 Nucleated RBC % (auto) 0.0 VBG pH VBG pCO2 VBG pO2 VBG HCO3 VBG O2 Saturation VBG Base Excess Sodium 137 Potassium 4.3 Chloride 101 Carbon Dioxide 29 Anion Gap 11 L BUN 24 H Creatinine 0.94 Estim Creat Clear Calc 72.3 Estimated GFR > 60 POC Glucose 108 Random Glucose 118 H Calcium 8.1 L Phosphorus 2.5 L Magnesium 2.2 Albumin 2.9 L 02/27/22 05:15 WBC RBC Hgb Hct MCV MCH MCHC RDW Plt Count MPV Immature Gran % (Auto) Neut % (Auto) Lymph % (Auto) [place] % (Auto) Eos % (Auto) Baso % (Auto) Lymph # (Auto) [place] # (Auto) Eos # (Auto) Baso # (Auto) Abs Immat Gran (auto) Absolute Neuts (auto) Absolute Nucleated RBC Nucleated RBC % (auto) VBG pH 7.43 VBG pCO2 46 VBG pO2 56 VBG HCO3 31 H VBG O2 Saturation 82.0 VBG Base Excess 6.1 Sodium Potassium Chloride Carbon Dioxide Anion Gap BUN Creatinine Estim Creat Clear Calc Estimated GFR POC Glucose Random Glucose Calcium Phosphorus Magnesium Albumin Microbiology Microbiology Results: Microbiology 02/25/22 14:56 Blood - Venous Blood Culture - Preliminary No growth after 24 hours. 02/25/22 14:04 Blood - Venous Blood Culture - Preliminary No growth after 24 hours. Progress Note: A&P Assessment and plan (1) ARDS (adult respiratory distress syndrome): Status: Acute (2) COVID-19: Status: Acute (3) Respiratory failure: Status: Acute Plan Assessment: 71-year-old gentleman, nonverbal at baseline, resident of [facility], admitted with alteration of mental status and acute hypoxic respirato ry failure, COVID-19 positive, requiring intubation and ventilatory support. Plan: Neuro: No acute issues. Deaf and nonverbal at baseline. Cardiac: No acute issues. Pulmonary: Acute hypoxic respiratory failure secondary to COVID-19 ARDS now requiring ventilatory support. Continue to titrate off ventilatory support as tolerated. Renal: No acute issues. Endo: No acute issues. GI: No acute issues. ID: No acute issues Heme/Onc: No acute issues. Psych: No acute issues. Miscellaneous: No acute issues. Prophylaxis: Heparin, famotidine Diet: Tube feeds Critical care time spent: 45 minutes Quality Stroke Does the patient have a stroke diagnosis?: No VTE Prior VTE?: No VTE Risk Level:: Medical - moderate - high VTE Device Contraindication: N/A - Device Ordered VTE Drug Contraindication: N/A - Med Ordered
--- NOTE | 2022-02-27 11:06 | MHC.CM.PN ---
Patient remains intubated/vented in ICU. Patient is [facility]. Positive for Covid on 02/25. Patient is vaxxed and boosted. Patient has a guardian. Anticipate patient will return to [facility] when medically stable. Continue to monitor for d/c needs.
[2022-02-27 11:10] LABS: Glucose, Whole Blood 109 mg/dL (60-115)
[2022-02-27] MEDS: propofoL 1,000 MG/100 ML VIAL 10.5 MG IVCONT (11:38)
[2022-02-27 16:49] LABS: Vancomycin Random 7.7 mcg/mL (15-20)
--- NOTE | 2022-02-27 17:09 | PHA.PROG ---
Admission Date/Time: February 25, 2022 16:43 Indication: RESPIRATORY Weight in k.1 kg Adjusted body weight in Kg: [place] body weight in Kg: Obesity Dosing Indication % IBW: Serum Creatinine - Last 168 Hours 02/25/22 02/26/22 02/27/22 14:05 05:13 05:15 Creatinine 1.01 0.97 0.94 Estimated CrCl and GFR - Last 168 Hours 02/25/22 02/26/22 02/27/22 14:05 05:13 05:15 Estim Creat Clear Calc 68.5 70.1 72.3 Estimated GFR > 60 > 60 > 60 Vancomycin Loading Dose: Current Vancomycin Dosing Regimen: Changing regimen to 1750 mg q24h. Trough came back at 7.7. Vancomycin Monitoring using AUC goal of 400 - 600 range with trough as surrogate marker: Model predicts a AUC of 441 and a trough of 11.2 Date and Time for next Vancomycin Level to be drawn: a true trough will be drawn 02/28 @ 1600. Pharmacist Comments on Vancomycin Plan: Vancomycin dosing will take advantage of [employer] as a clinical decision support tool that uses Bayesian modeling to calculate individual patient's pharmacokinetic parameters and forecast the patient's drug concentration time course with the target goal AUC 24 range of 400 - 600 mg/L/hr.
[2022-02-27 17:25] LABS: Glucose, Whole Blood 141 mg/dL (60-115)
[2022-02-27] MEDS: propofoL 1,000 MG/100 ML VIAL 15.75 MG IVCONT (17:40)
[2022-02-27] MEDS: vancomycin HCL 1,000 MG, vancomycin HCL 750 MG in 0.9 % Sodium Chloride 500 ML 267.5 MG IV (17:40)
[2022-02-28] VITALS (38 sets, daily range): BP systolic 115–163; BP diastolic 57–76; PULSE 39–70; RESP 15–21; TEMP 35–37.2; O2SAT 90–95; BMI 30.8
--- NOTE | 2022-02-28 | ECG_ITS ---
Test Reason : RHYTHM CHANGE Blood Pressure : / mmHG Vent. Rate : 051 BPM Atrial Rate : 051 BPM P-R Int : 132 ms QRS Dur : 084 ms QT Int : 404 ms P-R-T Axes : 073 046 072 degrees QTc Int : 372 ms Sinus bradycardia Otherwise normal ECG When compared with ECG of 25-FEB-2022 12:30, Vent. rate has decreased BY 72 BPM Referred By: Papi Em Electronically Signed By:Pj Mcneil
[2022-02-28 00:02] LABS: Glucose, Whole Blood 128 mg/dL (60-115)
[2022-02-28] MEDS: Heparin Sodium,Porcine 5,000 UNIT/ML VIAL 5000 UNIT SUBCUT (00:05)
[2022-02-28] MEDS: propofoL 1,000 MG/100 ML VIAL 15.75 MG IVCONT (00:05)
[2022-02-28] MEDS: Piperacillin Sodium/Tazobactam 3.375 GM in 0.9 % Sodium Chloride 50 ML IV ×5 (00:06→23:48)
--- NOTE | 2022-02-28 02:24 | PM.CCN ---
Critical Care Event Note Summary Date of Service: 02/28/22 Code activated: No Narrative: This case had a high probability of a clinically significant, sudden, or life threatening deterioration of this patient's condition which required my full and direct attention, intervention and personal management. Critical Care Time (minutes): 30 Comment: At approx 2:02am, the pt's chalk machine operator showed a long pause, approx 90 seconds, there was some artifact, ? cardiac leads coming loose from the sweat, artifact, idioventricular rhthym or true asystole. Once we gowned up and went into the room, a pulse was detected by his nurse, cardiac leads were all replaced and the rhythm was back to sinus lucinda in the 50's, which it has been for days. Pt appeared diaphoretic on the forehead and chest. BP 141/71, O2 sat 94% on 30%Fi02, Temp 99.0F. POC 123. EKG showed sinus lucinda at 51 BPM, no st or t wave changes. MA interval 132ms, QT 404ms. Pt was moving his right hand and fingers and opening his eyes. We increased his sedation, prop from 30-40 and adding fentanyl gtt. Will get troponin, lactic acid, mag, phos and CMP. Critical Care Time Critical Care Time (minutes): 30
[2022-02-28] MEDS: fentaNYL citrate/NS 1,000 MCG/100 ML PLAST..BAG 5 MCG IVCONT (02:32)
[2022-02-28 02:44] LABS: Glucose, Whole Blood 123 mg/dL (60-115)
[2022-02-28 02:53] LABS: Lactic Acid 1.3 mmol/L (0.5-2.0)
[2022-02-28 03:00] LABS: Alanine Aminotransferase 27 U/L (0-40); Albumin Level 3.9 g/dL (3.5-5.0); Alkaline Phosphatase 37 U/L (39-117); Anion Gap 16 (12-20); Aspartate Amino Transferase 39 U/L (5-37); Bilirubin Total 0.6 mg/dL (0.0-1.0); Blood Urea Nitrogen 33 mg/dL (9-16); Calcium 8.5 mg/dL (8.4-10.2); Carbon Dioxide 24 mmol/L (22-29); Chloride 104 mmol/L (96-108); Creatinine Clr Calc Pharmacy 57.2; Estimated Glomerular Filt Rate 60; Glucose Random 122 mg/dL (60-115); Potassium 4.1 mmol/L (3.3-5.1); Sodium 140 mmol/L (135-145); Total Protein 6.1 g/dL (6.5-8.0)
[2022-02-28 03:04] LABS: Troponin-I High Sensitivity 6.9 ng/L (<3.5-35.0)
[2022-02-28 03:18] LABS: Magnesium 2.5 mg/dL (1.6-2.6); Phosphorus 3.1 mg/dL (2.7-4.5)
[2022-02-28] MEDS: Albumin Human 25 % 100 ML IV (03:58)
[2022-02-28 05:42] LABS: VBG Base Excess 4.8 mmol/L; VBG HCO3 29 mmol/L (22-26); VBG pCO2 42 mmHg; VBG pH 7.44 (7.32-7.43); VBG pO2 46 mmHg
[2022-02-28 05:47] LABS: Glucose, Whole Blood 113 mg/dL (60-115)
[2022-02-28] MEDS: propofoL 1,000 MG/100 ML VIAL 10.5 MG IVCONT (05:47)
[2022-02-28 05:49] LABS: MANUAL DIFF FLAG NO
[2022-02-28 05:52] LABS: Basophils Percent Auto 0.1 % (0-2); Hematocrit 31.1 % (42.0-52.0); Hemoglobin 9.9 g/dl (14.0-18.0); Imm Gran Abs Auto 0.07 X10*3/uL (0.00-0.03); Imm Gran Pct Auto 0.8 % (0.0-0.4); Lymphocytes Absolute Auto 1.4 X10*3/uL (1.2-4.9); Lymphocytes Percent Auto 16.2 % (20-40); Mean Corpuscular HGB Conc 31.8 g/dl (31.0-36.0); Mean Corpuscular Hemoglobin 29.2 pg (27.0-33.0); Mean Corpuscular Volume 91.7 fL (80.0-98.0); Mean Platelet Volume 12.9 fL (9.4-12.4); Monocytes Absolute Auto 0.6 X10*3/uL (0.1-1.2); Monocytes Percent Auto 6.8 % (2-11); Neutrophils Absolute Auto 6.6 x10*3/uL (2.0-8.3); Neutrophils Percent Auto 76.1 % (45-73); Platelet Count 145 X10*3/uL (160-400); Red Blood Count 3.39 X10*6/uL (4.60-5.80); Red Cell Distribution Width 14.4 % (11.0-16.0); White Blood Count 8.6 X10*3/uL (4.8-10.8)
[2022-02-28 06:10] LABS: Albumin Level 4.1 g/dL (3.5-5.0); Anion Gap 15 (12-20); Blood Urea Nitrogen 34 mg/dL (9-16); Calcium 8.6 mg/dL (8.4-10.2); Carbon Dioxide 25 mmol/L (22-29); Chloride 104 mmol/L (96-108); Creatinine Clr Calc Pharmacy 57.9; Estimated Glomerular Filt Rate > 60; Glucose Random 117 mg/dL (60-115); Magnesium 2.7 mg/dL (1.6-2.6); Phosphorus 3.4 mg/dL (2.7-4.5); Potassium 4.1 mmol/L (3.3-5.1); Sodium 140 mmol/L (135-145)
--- NOTE | 2022-02-28 07:54 | P.PNCC_ITS ---
Subjective Subjective Date of Service: 02/28/22 Interval History: 71-year-old gentleman with underlying history of hypertension, BPH, calf and nonverbal at baseline, resident of [facility] facility admitted on 02/25/2022 with hypoxemia and alteration of mental status. On ER evaluation patient was noted to be significantly hypoxic and unable to compliant with noninvasive supplemental oxygen. Also he was noted to be COVID-19 positive. Patient was intubated and started on dexamethasone and broad-spectrum antibiotics, and transferred to the intensive care unit. No events overnight. Critical Care Time (minutes): 45 Physical Exam Vital Signs: Vital Signs: Last Vital Signs Temp 98.4 F 02/28/22 06:52 Pulse 52 02/28/22 06:52 Resp 18 02/28/22 06:52 BP 132/69 02/28/22 06:52 Pulse Ox 94 02/28/22 06:52 BMI result Body Mass Index 30.8 Const: General: no acute distress and other ( sedated on the vent, arousable with sedation vacation) Eyes: Sclerae: sclerae normal EOM: EOMs intact bilaterally Neck: Neck: Yes no lymphadenopathy, Yes trachea midline and Yes supple Resp: Effort & Inspection: normal respiratory effort and no respiratory distress Auscultation: clear to auscultation bilaterally Cardio: Rate: regular rate Rhythm: regular rhythm Heart sounds: no gallops, no murmurs and no rubs GI: Palpation (GI): Soft to palpation and Other GI palpation findings present ( Nontender) Auscultation: normal bowel sounds Extrem: General: Yes no pedal edema, No clubbing and No cyanosis Objective Data Labs CBC & Chem 7: 02/28/22 05:40 02/28/22 05:40 Labs: Laboratory Results - last 24 hr 02/27/22 02/27/22 02/27/22 11:05 16:06 17:21 WBC RBC Hgb Hct MCV MCH MCHC RDW Plt Count MPV Immature Gran % (Auto) Neut % (Auto) Lymph % (Auto) [place] % (Auto) Eos % (Auto) Baso % (Auto) Lymph # (Auto) [place] # (Auto) Eos # (Auto) Baso # (Auto) Abs Immat Gran (auto) Absolute Neuts (auto) Absolute Nucleated RBC Nucleated RBC % (auto) VBG pH VBG pCO2 VBG pO2 VBG HCO3 VBG O2 Saturation VBG Base Excess Sodium Potassium Chloride Carbon Dioxide Anion Gap BUN Creatinine Estim Creat Clear Calc Estimated GFR POC Glucose 109 141 H Random Glucose Lactic Acid Calcium Phosphorus Magnesium Total Bilirubin AST ALT Alkaline Phosphatase Troponin I High Sens Total Protein Albumin Random Vancomycin 7.7 L 02/27/22 02/28/22 02/28/22 23:57 02:32 02:32 WBC RBC Hgb Hct MCV MCH MCHC RDW Plt Count MPV Immature Gran % (Auto) Neut % (Auto) Lymph % (Auto) [place] % (Auto) Eos % (Auto) Baso % (Auto) Lymph # (Auto) [place] # (Auto) Eos # (Auto) Baso # (Auto) Abs Immat Gran (auto) Absolute Neuts (auto) Absolute Nucleated RBC Nucleated RBC % (auto) VBG pH VBG pCO2 VBG pO2 VBG HCO3 VBG O2 Saturation VBG Base Excess Sodium 140 Potassium 4.1 Chloride 104 Carbon Dioxide 24 Anion Gap 16 BUN 33 H Creatinine 1.20 Estim Creat Clear Calc 57.2 Estimated GFR 60 POC Glucose 128 H Random Glucose 122 H Lactic Acid Calcium 8.5 Phosphorus 3.1 Magnesium 2.5 Total Bilirubin 0.6 AST 39 H D ALT 27 Alkaline Phosphatase 37 L D Troponin I High Sens 6.9 Total Protein 6.1 L Albumin 3.9 D Random Vancomycin 02/28/22 02/28/22 02/28/22 02:32 02:40 05:35 WBC RBC Hgb Hct MCV MCH MCHC RDW Plt Count MPV Immature Gran % (Auto) Neut % (Auto) Lymph % (Auto) [place] % (Auto) Eos % (Auto) Baso % (Auto) Lymph # (Auto) [place] # (Auto) Eos # (Auto) Baso # (Auto) Abs Immat Gran (auto) Absolute Neuts (auto) Absolute Nucleated RBC Nucleated RBC % (auto) VBG pH 7.44 H VBG pCO2 42 VBG pO2 46 VBG HCO3 29 H VBG O2 Saturation 69.0 VBG Base Excess 4.8 Sodium Potassium Chloride Carbon Dioxide Anion Gap BUN Creatinine Estim Creat Clear Calc Estimated GFR POC Glucose 123 H Random Glucose Lactic Acid 1.3 Calcium Phosphorus Magnesium Total Bilirubin AST ALT Alkaline Phosphatase Troponin I High Sens Total Protein Albumin Random Vancomycin 02/28/22 02/28/22 02/28/22 05:40 05:40 05:41 WBC 8.6 RBC 3.39 L Hgb 9.9 L Hct 31.1 L MCV 91.7 MCH 29.2 MCHC 31.8 RDW 14.4 Plt Count 145 L MPV 12.9 H Immature Gran % (Auto) 0.8 H Neut % (Auto) 76.1 H Lymph % (Auto) 16.2 L [place] % (Auto) 6.8 Eos % (Auto) 0.0 Baso % (Auto) 0.1 Lymph # (Auto) 1.4 [place] # (Auto) 0.6 Eos # (Auto) 0.0 Baso # (Auto) 0.0 Abs Immat Gran (auto) 0.07 H Absolute Neuts (auto) 6.6 Absolute Nucleated RBC 0.000 Nucleated RBC % (auto) 0.0 VBG pH VBG pCO2 VBG pO2 VBG HCO3 VBG O2 Saturation VBG Base Excess Sodium 140 Potassium 4.1 Chloride 104 Carbon Dioxide 25 Anion Gap 15 BUN 34 H Creatinine 1.19 Estim Creat Clear Calc 57.9 Estimated GFR > 60 POC Glucose 113 Random Glucose 117 H Lactic Acid Calcium 8.6 Phosphorus 3.4 Magnesium 2.7 H Total Bilirubin AST ALT Alkaline Phosphatase Troponin I High Sens Total Protein Albumin 4.1 Random Vancomycin Microbiology Microbiology Results: Microbiology 02/27/22 11:44 Sputum - Suctioned Gram Stain - Final 02/27/22 11:44 Sputum - Suctioned Sputum Culture - Preliminary Culture in progress. 02/25/22 14:04 Blood - Venous Blood Culture - Preliminary No growth after 48 hours. 02/25/22 14:56 Blood - Venous Blood Culture - Preliminary No growth after 48 hours. Progress Note: A&P Assessment and plan (1) ARDS (adult respiratory distress syndrome): Status: Acute (2) COVID-19: Status: Acute (3) Respiratory failure: Status: Acute Plan Assessment: 71-year-old gentleman, nonverbal at baseline, resident of [facility], admitted with alteration of mental status and acute hypoxic respiratory failure, COVID-19 positive, requiring intubation and ventilatory support. Plan: Neuro: No acute issues. Deaf and nonverbal at baseline. Cardiac: No acute issues. Pulmonary: Acute hypoxic respiratory failure secondary to COVID-19 ARDS now requiring ventilatory support. Continue to titrate off ventilatory support as tolerated. Renal: No acute issues. Endo: No acute issues. GI: No acute issues. ID: No acute issues Heme/Onc: No acute issues. Psych: No acute issues. Miscellaneous: No acute issues. Prophylaxis: Heparin, famotidine Diet: Tube feeds Critical care time spent: 45 minutes Quality Stroke Does the patient have a stroke diagnosis?: No VTE Prior VTE?: No VTE Risk Level:: Medical - moderate - high VTE Device Contraindication: N/A - Device Ordered VTE Drug Contraindication: N/A - Med Ordered
[2022-02-28 08:39] LABS: Venous Blood Gas Refer to POC result
[2022-02-28] MEDS: Famotidine/PF 20 MG/2 ML VIAL IVPUSH ×2 (09:07→19:45)
[2022-02-28] MEDS: Chlorhexidine Gluc Oral Rinse 15 ML MOUTHWASH BUCCAL ×3 (09:07→19:45)
[2022-02-28] MEDS: Lactulose 20 GM/30 ML SOLUTION 30 GM PO (09:07)
[2022-02-28] MEDS: dexAMETHasone sod phosphate 4 MG/ML VIAL 6 MG IVPUSH (09:07)
[2022-02-28 11:27] LABS: Glucose, Whole Blood 133 mg/dL (60-115)
[2022-02-28] MEDS: propofoL 1,000 MG/100 ML VIAL 7.88 MG IVCONT (13:29)
[2022-02-28 16:46] LABS: Vancomycin Trough 11.3 mcg/mL (10.0-20.0)
--- NOTE | 2022-02-28 16:59 | HE.PHANOTE ---
Patients cr significantly increased, trough within normal limits 11.3, will decrease dose to 1500 mg daily, trough tomorrow at 1600, predicted auc 451, trough 12.4
[2022-02-28 17:30] LABS: Glucose, Whole Blood 139 mg/dL (60-115)
[2022-02-28] MEDS: vancomycin HCL 1,500 MG in 0.9 % Sodium Chloride 500 ML 333.33 MG IV (17:38)
[2022-02-28] MEDS: propofoL 1,000 MG/100 ML VIAL 13.13 MG IVCONT (21:18)
[2022-02-28] MEDS: fentaNYL citrate/NS 1,000 MCG/100 ML PLAST..BAG 10 MCG IVCONT (21:30)
[2022-03-01] VITALS (31 sets, daily range): BP systolic 133–161; BP diastolic 57–88; PULSE 38–86; RESP 14–24; TEMP 35–37.8; O2SAT 89–96; BMI 30.8
[2022-03-01 00:42] LABS: Glucose, Whole Blood 130 mg/dL (60-115)
[2022-03-01] MEDS: fentaNYL citrate/NS 1,000 MCG/100 ML PLAST..BAG 7.5 MCG IVCONT (03:09)
[2022-03-01] MEDS: propofoL 1,000 MG/100 ML VIAL 10.5 MG IVCONT (03:10)
--- NOTE | 2022-03-01 04:55 | PC.NURSE ---
Addendum entered by Brandon Bonilla RN 03/01/22 06:47: REMAINS BRADYCARDIC..FENTANYL WEANED TO 50 MCG/HR Original Note: CARE ASSUMED 23:15...REMAINS TUBED/VENTED..VCV/AC MODE...RR CONTROLED ON AC SETTINGS...PROPOFOL 25 MCG/KG/MIN & FENTANYL 100 MCG/HR...REMAINS BRADYCARDIC PER SHIFT REPORT...HR 43-45 AT HS...HR 40-42 OVERNIGHT..PROPOFOL WEANED TO 20 MCG/KG/MIN & FENTANYL TO 75 MCG/HR....ICU SCAGLIOLA MECHANIC AWARE...OG-TUBE FEEDS 20 CC/HR....RESIDUAL ASPIRATE 180ml AT 12AM...4AM CEXHSTAU=[id number]...TUBE FEEDS HELD...ICU SCAGLIOLA MECHANIC AWARE...REMAINS HR 42-43..BP STABLE
[2022-03-01] MEDS: Piperacillin Sodium/Tazobactam 3.375 GM in 0.9 % Sodium Chloride 50 ML IV (05:08)
[2022-03-01 05:23] LABS: VBG Base Excess 5.7 mmol/L; VBG HCO3 30 mmol/L (22-26); VBG pCO2 46 mmHg; VBG pH 7.43 (7.32-7.43); VBG pO2 40 mmHg
[2022-03-01 05:51] LABS: Basophils Percent Auto 0.1 % (0-2); Hemoglobin 10.6 g/dl (14.0-18.0); PLT ABN DIST 1; Red Cell Distribution Width 14.6 % (11.0-16.0); SCAN SMEAR FLAG 1; White Blood Count 8.4 X10*3/uL (4.8-10.8)
[2022-03-01 05:53] LABS: Hematocrit 34.3 % (42.0-52.0); Imm Gran Pct Auto 1.2 % (0.0-0.4); Lymphocytes Absolute Auto 1.6 X10*3/uL (1.2-4.9); Lymphocytes Percent Auto 19.2 % (20-40); Mean Corpuscular HGB Conc 30.9 g/dl (31.0-36.0); Mean Corpuscular Hemoglobin 28.4 pg (27.0-33.0); Mean Platelet Volume 12.6 fL (9.4-12.4); Monocytes Absolute Auto 0.8 X10*3/uL (0.1-1.2); Monocytes Percent Auto 9.3 % (2-11); Neutrophils Absolute Auto 5.9 x10*3/uL (2.0-8.3); Neutrophils Percent Auto 70.2 % (45-73); Platelet Count 150 X10*3/uL (160-400); Red Blood Count 3.73 X10*6/uL (4.60-5.80)
[2022-03-01 06:06] LABS: MANUAL DIFF FLAG NO
[2022-03-01 06:08] LABS: Albumin Level 3.7 g/dL (3.5-5.0); Anion Gap 13 (12-20); Blood Urea Nitrogen 37 mg/dL (9-16); Calcium 8.5 mg/dL (8.4-10.2); Carbon Dioxide 27 mmol/L (22-29); Chloride 106 mmol/L (96-108); Creatinine Clr Calc Pharmacy 57.3; Estimated Glomerular Filt Rate 60; Glucose Random 114 mg/dL (60-115); Magnesium 2.6 mg/dL (1.6-2.6); Phosphorus 3.8 mg/dL (2.7-4.5); Potassium 4.5 mmol/L (3.3-5.1); Sodium 141 mmol/L (135-145)
[2022-03-01 06:11] LABS: Glucose, Whole Blood 121 mg/dL (60-115)
[2022-03-01 08:09] LABS: Venous Blood Gas Refer to POC result
[2022-03-01] MEDS: Chlorhexidine Gluc Oral Rinse 15 ML MOUTHWASH BUCCAL ×3 (08:44→20:12)
[2022-03-01] MEDS: Famotidine/PF 20 MG/2 ML VIAL IVPUSH ×2 (08:44→20:18)
--- NOTE | 2022-03-01 08:48 | PM.CCPN ---
Subjective Subjective Date of Service: 03/01/22 Interval History: 71-year-old gentleman with underlying history of hypertension, BPH, calf and nonverbal at baseline, resident of [facility] facility admitted on 02/25/2022 with hypoxemia and alteration of mental status. On ER evaluation patient was noted to be significantly hypoxic and unable to compliant with noninvasive supplemental oxygen. Also he was noted to be COVID-19 positive. Patient was intubated and started on dexamethasone and broad-spectrum antibiotics, and transferred to the intensive care unit. No events overnight. Critical Care Time (minutes): 45 Physical Exam Vital Signs: Vital Signs: Last Vital Signs Temp 98.2 F 03/01/22 08:00 Pulse 41 L 03/01/22 08:00 Resp 16 03/01/22 08:00 BP 157/76 H 03/01/22 08:00 Pulse Ox 93 03/01/22 08:00 BMI result Body Mass Index 30.8 Const: General: no acute distress and other (sedated on the vent, arousable with sedation) Eyes: Sclerae: sclerae normal EOM: EOMs intact bilaterally Neck: Neck: Yes no lymphadenopathy, Yes trachea midline and Yes supple Resp: Auscultation: clear to auscultation bilaterally Cardio: Rate: regular rate Rhythm: regular rhythm Heart sounds: no gallops, no murmurs and no rubs GI: Inspection: Yes distended Palpation (GI): Soft to palpation and Other GI palpation findings present ( Nontender) Auscultation: normal bowel sounds Extrem: General: Yes no pedal edema, No clubbing and No cyanosis Objective Data Labs CBC & Chem 7: 03/01/22 05:17 03/01/22 05:17 Labs: Laboratory Results - last 24 hr 02/28/22 02/28/22 02/28/22 11:14 16:10 17:23 WBC RBC Hgb Hct MCV MCH MCHC RDW Plt Count MPV Immature Gran % (Auto) Neut % (Auto) Lymph % (Auto) [place] % (Auto) Eos % (Auto) Baso % (Auto) Lymph # (Auto) [place] # (Auto) Eos # (Auto) Baso # (Auto) Abs Immat Gran (auto) Absolute Neuts (auto) Absolute Nucleated RBC Nucleated RBC % (auto) VBG pH VBG pCO2 VBG pO2 VBG HCO3 VBG O2 Saturation VBG Base Excess Sodium Potassium Chloride Carbon Dioxide Anion Gap BUN Creatinine Estim Creat Clear Calc Estimated GFR POC Glucose 133 H 139 H Random Glucose Calcium Phosphorus Magnesium Albumin Vancomycin Trough 11.3 02/28/22 03/01/22 03/01/22 23:55 05:12 05:16 WBC RBC Hgb Hct MCV MCH MCHC RDW Plt Count MPV Immature Gran % (Auto) Neut % (Auto) Lymph % (Auto) [place] % (Auto) Eos % (Auto) Baso % (Auto) Lymph # (Auto) [place] # (Auto) Eos # (Auto) Baso # (Auto) Abs Immat Gran (auto) Absolute Neuts (auto) Absolute Nucleated RBC Nucleated RBC % (auto) VBG pH 7.43 VBG pCO2 46 VBG pO2 40 VBG HCO3 30 H VBG O2 Saturation 57.0 VBG Base Excess 5.7 Sodium Potassium Chloride Carbon Dioxide Anion Gap BUN Creatinine Estim Creat Clear Calc Estimated GFR POC Glucose 130 H 121 H Random Glucose Calcium Phosphorus Magnesium Albumin Vancomycin Trough 03/01/22 03/01/22 05:17 05:17 WBC 8.4 RBC 3.73 L Hgb 10.6 L Hct 34.3 L MCV 92.0 MCH 28.4 MCHC 30.9 L RDW 14.6 Plt Count 150 L MPV 12.6 H Immature Gran % (Auto) 1.2 H Neut % (Auto) 70.2 Lymph % (Auto) 19.2 L [place] % (Auto) 9.3 Eos % (Auto) 0.0 Baso % (Auto) 0.1 Lymph # (Auto) 1.6 [place] # (Auto) 0.8 Eos # (Auto) 0.0 Baso # (Auto) 0.0 Abs Immat Gran (auto) 0.10 H Absolute Neuts (auto) 5.9 Absolute Nucleated RBC 0.000 Nucleated RBC % (auto) 0.0 VBG pH VBG pCO2 VBG pO2 VBG HCO3 VBG O2 Saturation VBG Base Excess Sodium 141 Potassium 4.5 Chloride 106 Carbon Dioxide 27 Anion Gap 13 BUN 37 H Creatinine 1.20 Estim Creat Clear Calc 57.3 Estimated GFR 60 POC Glucose Random Glucose 114 Calcium 8.5 Phosphorus 3.8 Magnesium 2.6 Albumin 3.7 Vancomycin Trough Microbiology Microbiology Results: Microbiology 02/27/22 11:44 Sputum - Suctioned Gram Stain - Final 02/27/22 11:44 Sputum - Suctioned Sputum Culture - Final 02/25/22 14:56 Blood - Venous Blood Culture - Preliminary No growth after 48 hours. 02/25/22 14:04 Blood - Venous Blood Culture - Preliminary No growth after 48 hours. Progress Note: A&P Assessment and plan (1) Acute metabolic encephalopathy: Status: Acute (2) ARDS (adult respiratory distress syndrome): Status: Acute (3) COVID-19: Status: Acute (4) Respiratory failure: Status: Acute (5) Constipation: Status: Acute Plan Assessment: 71-year-old gentleman, nonverbal at baseline, resident of [facility], admitted with alteration of mental status and acute hypoxic respiratory failure, COVID-19 positive, requiring intubation and ventilatory support. Plan: Neuro: No acute issues. Deaf and nonverbal at baseline. Cardiac: No acute issues. Pulmonary: Acute hypoxic respiratory failure secondary to COVID-19 ARDS now requiring ventilatory support. Continue to titrate off ventilatory support as tolerated. Renal: No acute issues. Endo: No acute issues. GI: High gastric residuals, not tolerating to pits. No bowel over the last several days. Will restart lactulose. Will obtain CT abdomen and pelvis for further evaluation. ID: No acute issues Heme/Onc: Mild hematuria and increased bloody secretions with in-line suctioning, heparin held. Psych: No acute issues. Miscellaneous: No acute issues. Prophylaxis: Compression devices, famotidine Diet: Tube feeds Critical care time spent: 45 minutes Quality Stroke Does the patient have a stroke diagnosis?: No VTE Prior VTE?: No VTE Risk Level:: Medical - moderate - high VTE Device Contraindication: N/A - Device Ordered VTE Drug Contraindication: N/A - Med Ordered
[2022-03-01] MEDS: Lactulose 20 GM/30 ML SOLUTION PO (10:10)
--- NOTE | 2022-03-01 10:14 | MHC.CLN ---
F/U PT REMAINS INTUBATED AND SEDATED PT TOLERATING TRICKLE FEEDS GLUCERNA AT 20ML/HR DISCUSSED AT ROUNDS; PT WITH HIGH RESIDUALS YESTERDAY AND TF WAS ON HOLD PLAN PER MD TO SCAN FOR POSSIBLE OBSTRUCTION AND THEN PRESSURE SUPPORT IF ABLE IF TF NEEDED; RECOMMEND PROMOTE AT MAX GOAL RATE 55ML/HR WITH 240CC FREE WATER FLUSHES TO PROVIDE 1320KCALS (1597KCALS WITH SEDATION; 22KCALS/KG), 82.5G PROTEIN (1.145G/KG), 1827ML TOTAL WATER FROM FORMULA AND FLUSHES (25ML/KG) MONITOR TOLERANCE, RESIDUALS AND LYTES
[2022-03-01] MEDS: propofoL 1,000 MG/100 ML VIAL 13.13 MG IVCONT (11:30)
[2022-03-01 12:17] LABS: Glucose, Whole Blood 116 mg/dL (60-115)
[2022-03-01 16:29] LABS: Vancomycin Trough 12.6 mcg/mL (10.0-20.0)
[2022-03-01 18:03] LABS: Glucose, Whole Blood 85 mg/dL (60-115)
[2022-03-01] MEDS: Albuterol/Iprat 2.5/0.5MG 3 ML AMPUL.NEB INHALE (22:36)
[2022-03-02] VITALS (16 sets, daily range): BP systolic 121–180; BP diastolic 55–88; PULSE 55–78; RESP 16–30; TEMP 36.6–38.2; O2SAT 87–95; BMI 30.4
--- NOTE | 2022-03-02 00:20 | PC.NURSE ---
Assumed care at 15:00. Patient was initally on ventilator, having successfully been engaged in a spontaneous breathing trial, and was planned for extubation. Successfully extubated about 15:55 to 3 LPM nasal cannula. Patient is alert, is deaf, and according to his HCP, Sharmin, who was updated this afternoon, he does not speak ASL. He communicates with 4-5 personalized hand signals that he and his staff at [facility] in [place] understand. ASL interpretter was utilized with poor effect, patient would not engage with per diem interpreter over tablet device, per diem interpreter #[id number]. Patient communicated with by pantomiming and gesticulations as well as with markerboard, with very limited success. No commands able to be followed, no yes or no questions answered. Patient is currently tracking speaker, attends speaker, moves all extremities, positive cough and gag. Immediately after extubation, patient had originally had coarse crackles throughout with inspiratory and expiratory rhonchi on inspiration and expiration, tachypnea in the 20's, shallow breathing, wet loose nonproductive cough, good strong cough and patient protecting airway. Patient SpO2 had been in low 90's-92%, and over course of evening, SpO2 dropping down to 89%; uptitrated FiO2 and now on 5 LPM. Patient seemed to have upper airway congestion and cough was slightly wheezy, and discussed with COURT DEPUTY, new order for updraft and planned to deep suction. Patient refused both. Aspiration precautions in effect. Patient kept NPO pending formal swallow eval currently. Home diet says pureed solids and nectar thick liquids. No BM this shift, is on lactulose, scheduled, held due to being NPO. TLC in right IJ kept in place pending morning lab draw. Rosenberg catheter remains in place for I/Os. Right 5th finger has small skin tear. UoP 40-85 cc/hour.
[2022-03-02 01:57] LABS: Glucose, Whole Blood 68 mg/dL (60-115)
[2022-03-02] MEDS: Dextrose 50 % 25 GM/50 ML SYRINGE IVPUSH (01:58)
[2022-03-02] MEDS: Dextrose 5 % 1,000 ML 50 ML IVCONT (01:58)
[2022-03-02 05:25] LABS: MANUAL DIFF FLAG NO
[2022-03-02 05:29] LABS: VBG Base Excess 5.4 mmol/L; VBG HCO3 29 mmol/L (22-26); VBG pCO2 39 mmHg; VBG pH 7.48 (7.32-7.43); VBG pO2 45 mmHg
[2022-03-02 05:32] LABS: Basophils Percent Auto 0.2 % (0-2); Eosinophils Absolute Auto 0.1 X10*3/uL (0.0-0.4); Eosinophils Percent Auto 0.6 % (0-4); Hematocrit 35.8 % (42.0-52.0); Hemoglobin 11.5 g/dl (14.0-18.0); Imm Gran Pct Auto 2.4 % (0.0-0.4); Lymphocytes Absolute Auto 2.7 X10*3/uL (1.2-4.9); Lymphocytes Percent Auto 22.1 % (20-40); Mean Corpuscular HGB Conc 32.1 g/dl (31.0-36.0); Mean Corpuscular Hemoglobin 29.2 pg (27.0-33.0); Mean Corpuscular Volume 90.9 fL (80.0-98.0); Mean Platelet Volume 12.5 fL (9.4-12.4); Monocytes Absolute Auto 1.4 X10*3/uL (0.1-1.2); Monocytes Percent Auto 11.5 % (2-11); NRBC Pct Auto 0.3 /100WBC (0.0-0.2); Neutrophils Absolute Auto 7.8 x10*3/uL (2.0-8.3); Neutrophils Percent Auto 63.2 % (45-73); Platelet Count 189 X10*3/uL (160-400); Red Blood Count 3.94 X10*6/uL (4.60-5.80); Red Cell Distribution Width 14.1 % (11.0-16.0); White Blood Count 12.3 X10*3/uL (4.8-10.8)
[2022-03-02 06:08] LABS: Albumin Level 3.5 g/dL (3.5-5.0); Anion Gap 12 (12-20); Blood Urea Nitrogen 29 mg/dL (9-16); Calcium 8.6 mg/dL (8.4-10.2); Carbon Dioxide 27 mmol/L (22-29); Chloride 109 mmol/L (96-108); Creatinine Clr Calc Pharmacy 65.2; Estimated Glomerular Filt Rate > 60; Glucose Random 75 mg/dL (60-115); Phosphorus 2.4 mg/dL (2.7-4.5); Potassium 3.4 mmol/L (3.3-5.1); Sodium 145 mmol/L (135-145)
[2022-03-02 06:09] LABS: Glucose, Whole Blood 79 mg/dL (60-115)
[2022-03-02] MEDS: Potassium Phosphate/NS 15 MMOL/250 ML PLAST..BAG 62.5 MMOL IV (06:41)
[2022-03-02 07:08] LABS: Venous Blood Gas Refer to POC result
[2022-03-02] MEDS: Famotidine/PF 20 MG/2 ML VIAL IVPUSH (07:52)
--- NOTE | 2022-03-02 08:43 | P.PNCC_ITS ---
Subjective Subjective Date of Service: 03/02/22 Interval History: 71-year-old gentleman with underlying history of hypertension, BPH, calf and nonverbal at baseline, resident of [facility] facility admitted on 02/25/2022 with hypoxemia and alteration of mental status. On ER evaluation patient was noted to be significantly hypoxic and unable to compliant with noninvasive supplemental oxygen. Also he was noted to be COVID-19 positive. Patient was intubated and started on dexamethasone and broad-spectrum antibiotics, and transferred to the intensive care unit. Extubated 03/01/2022. Overnight with increasing oxygen requirements and leukocytosis, likely silent aspirations. Critical Care Time (minutes): 45 Physical Exam Vital Signs: Vital Signs: Last Vital Signs Temp 100.6 F H 03/02/22 08:00 Pulse 67 03/02/22 08:00 Resp 29 H 03/02/22 08:00 BP 136/67 03/02/22 08:00 Pulse Ox 90 L 03/02/22 08:00 BMI result Body Mass Index 30.4 Const: General: no acute distress, alert, awake and other ( Nonverbal) Eyes: Sclerae: sclerae normal EOM: EOMs intact bilaterally Neck: Neck: Yes no lymphadenopathy, Yes trachea midline and Yes supple Resp: Effort & Inspection: normal respiratory effort and no respiratory distress Auscultation: clear to auscultation bilaterally Cardio: Rate: regular rate Rhythm: regular rhythm Heart sounds: no gallops, no murmurs and no rubs GI: Palpation (GI): Soft to palpation and Other GI palpation findings present ( Nontender) Auscultation: normal bowel sounds Extrem: General: Yes no pedal edema, No clubbing and No cyanosis Objective Data Labs CBC & Chem 7: 03/02/22 05:14 03/02/22 05:14 Labs: Laboratory Results - last 24 hr 03/01/22 03/01/22 03/01/22 12:11 16:00 18:00 WBC RBC Hgb Hct MCV MCH MCHC RDW Plt Count MPV Immature Gran % (Auto) Neut % (Auto) Lymph % (Auto) [place] % (Auto) Eos % (Auto) Baso % (Auto) Lymph # (Auto) [place] # (Auto) Eos # (Auto) Baso # (Auto) Abs Immat Gran (auto) Absolute Neuts (auto) Absolute Nucleated RBC Nucleated RBC % (auto) VBG pH VBG pCO2 VBG pO2 VBG HCO3 VBG O2 Saturation VBG Base Excess Sodium Potassium Chloride Carbon Dioxide Anion Gap BUN Creatinine Estim Creat Clear Calc Estimated GFR POC Glucose 116 H 85 Random Glucose Calcium Phosphorus Magnesium Albumin Vancomycin Trough 12.6 03/02/22 03/02/22 03/02/22 01:39 05:12 05:14 WBC 12.3 H RBC 3.94 L Hgb 11.5 L Hct 35.8 L MCV 90.9 MCH 29.2 MCHC 32.1 RDW 14.1 Plt Count 189 D MPV 12.5 H Immature Gran % (Auto) 2.4 H Neut % (Auto) 63.2 Lymph % (Auto) 22.1 Bland % (Auto) 11.5 H Eos % (Auto) 0.6 Baso % (Auto) 0.2 Lymph # (Auto) 2.7 Bland # (Auto) 1.4 H Eos # (Auto) 0.1 Baso # (Auto) 0.0 Abs Immat Gran (auto) 0.30 H Absolute Neuts (auto) 7.8 Absolute Nucleated RBC 0.040 H Nucleated RBC % (auto) 0.3 H VBG pH VBG pCO2 VBG pO2 VBG HCO3 VBG O2 Saturation VBG Base Excess Sodium Potassium Chloride Carbon Dioxide Anion Gap BUN Creatinine Estim Creat Clear Calc Estimated GFR POC Glucose 68 79 Random Glucose Calcium Phosphorus Magnesium Albumin Vancomycin Trough 03/02/22 03/02/22 05:14 05:21 WBC RBC Hgb Hct MCV MCH MCHC RDW Plt Count MPV Immature Gran % (Auto) Neut % (Auto) Lymph % (Auto) Bland % (Auto) Eos % (Auto) Baso % (Auto) Lymph # (Auto) [place] # (Auto) Eos # (Auto) Baso # (Auto) Abs Immat Gran (auto) Absolute Neuts (auto) Absolute Nucleated RBC Nucleated RBC % (auto) VBG pH 7.48 H VBG pCO2 39 VBG pO2 45 VBG HCO3 29 H VBG O2 Saturation 70.0 VBG Base Excess 5.4 Sodium 145 Potassium 3.4 D Chloride 109 H Carbon Dioxide 27 Anion Gap 12 BUN 29 H Creatinine 1.05 Estim Creat Clear Calc 65.2 Estimated GFR > 60 POC Glucose Random Glucose 75 Calcium 8.6 Phosphorus 2.4 L Magnesium 2.0 Albumin 3.5 Vancomycin Trough Microbiology Microbiology Results: Microbiology 02/27/22 11:44 Sputum - Suctioned Gram Stain - Final 02/27/22 11:44 Sputum - Suctioned Sputum Culture - Final 02/25/22 14:56 Blood - Venous Blood Culture - Preliminary No growth after 48 hours. 02/25/22 14:04 Blood - Venous Blood Culture - Preliminary No growth after 48 hours. Progress Note: A&P Assessment and plan (1) Constipation: Status: Acute (2) COVID-19: Status: Acute (3) Respiratory failure: Status: Acute (4) Hypoxia: Status: Acute (5) BPH (benign prostatic hyperplasia): Status: Acute Plan Assessment: 71-year-old gentleman, nonverbal at baseline, resident of [facility], admitted with alteration of mental status and acute hypoxic respiratory failure, COVID-19 positive, requiring intubation and ventilatory support. Plan: Neuro: No acute issues. Deaf and nonverbal at baseline. Cardiac: No acute issues. Pulmonary: Acute hypoxic respiratory failure secondary to COVID-19 ARDS now requiring ventilatory support. extubated 03/01/2022. Overnight with worsening FiO2 requirements and now with leukocytosis, likely silent aspirations. Renal: No acute issues. Endo: No acute issues. GI: CT abdomen pelvis not with no evidence of obstruction. Swallow evaluation is pending. ID: [email or web address] covered with Unasyn for possible aspiration. Heme/Onc: Mild hematuria and increased bloody secretions with in-line suctioning. Now resolved, will continue to hold heparin. Psych: No acute issues. Miscellaneous: No acute issues. Prophylaxis: Compression devices Diet: Pending swallow evaluation Critical care time spent: 45 minutes Quality Stroke Does the patient have a stroke diagnosis?: No VTE Prior VTE?: No VTE Risk Level:: Medical - moderate - high VTE Device Contraindication: N/A - Device Ordered VTE Drug Contraindication: N/A - Med Ordered
[2022-03-02] MEDS: Ampicillin Sodium/Sulbactam Na 3 GM in 0.9 % Sodium Chloride 100 ML IV ×3 (09:46→20:22)
--- NOTE | 2022-03-02 11:25 | MHC.SL.SWA ---
Speech Pathologist Impression: Risk of Aspiration Due to: History of Pneumonia Reduced Cognition Dysphasia Diet Status: Baseline diet for PT is PUREE (NDD1) w/NECTAR THICK liquids. Liquid Consistency and Strategies for Safe Swallow: Liquid Intake Recommendation: [place] Thick Liquid Intake Strategies: No Straws Liquids by Teaspoon Only Solid Food Consistency: Dietary Recommendations: Pureed (NDD1) Additional Modifications to Solid Foods: PT will need FULL ASSIST/SUPERVISION at all meals, w/ liquids by TEASPOON only. Do not present additional food/liquid until Pt has swallowed, rate of ingestion should be slowed to allow for safe consumption. Pt will need close monitor w/ aspiration precautions. Oral Medication Intake: Crushed with Puree Please contact the pharmacy regarding appropriate crushable or liquid drug formulations that are available whenever modified delivery is recommended. Compensatory Strategies and Precautions to be Taken for Safe Swallow: Sitting Upright (90 deg) No Straw Liquids from Spoon Small Bites and Sips Alternate Liquids/Solids Rate of Ingestion Change Supervision While Eating and Drinking for Safe Swallow: Total Supervision (1:1) Foods to Avoid: Very sticky solids Swallowing Recommended Treatments: Compens. Strategy Educat. Recommendation for Speech: Inpatient Speech Therapy Comment: Pt presents with oral pharyngeal dysphagia, characterized by a disorganized oral phase w/tongue pumping to transport bolus, mild, episodic delay of swallow w/reduced laryngeal elevation on swallow. Pt is edentulous. Pt tolerated NECTAR THICK liquid and PUREED (NDD1) solids w/ no clinical signs of aspiration at Bedside. These consistencies are reportedly the Pt's baseline. Recommend START diet of PUREED (NDD1) w/ NECTAR THICK liquids, Pills CRUSHED IN PUREE. PT will need full assist for all meals, w/ liquids by TSP only, slowed rate of administration of meal, close monitor for aspiration signs. Recommendations discussed in person w/ MD and Nursing, sent by secure text to vocational teacher. BOARD LINER OPERATOR will follow while inpt to monitor toleration of diet, re-assess swallow, upgrade if needed. Frequency/Duration: M-F Date Range for Service Req: Timeline to reassess: Identification And Records Commander Clinican/Clinical Fellow: No Supervisory Statement: I have reviewed and agree with the student/clinical fellow's documentation: N/A Speech Language Pathologist: Anneliese Robles M.A., CCC-BOARD LINER OPERATOR
[2022-03-02 11:36] LABS: Glucose, Whole Blood 97 mg/dL (60-115)
--- NOTE | 2022-03-02 11:37 | P.CDIC_ITS ---
CDI Concurrent Query Documentation Clarification: PHYSICIAN'S DOCUMENTATION REQUEST Date of Query: 03/02/22 1132 Patient Name: Wilfredo Sands Admit Date: 02/25/22 Dear Doctor, A review of the medical record indicates additional documentation may be needed. Please review below and update the documentation accordingly. Clinical Indicators: Risk Factors/Clinical Indicators/Treatments Nursing 5/3 - immediately after extubation pt had coarse crackles throughout w inspiratory & expiratory rhonchi on inspiration and expiration, tachypnea in 20's, shallow breathing, upper airway congestion, deep suction planned, aspiration precautions, NPO. PN 5/2 - Overnight with worsening FiO2 requirements and now with leukocytosis likely aspiration. Possible silent aspiration. Unasyn Based on the above, could you clarify in the Progress Notes further specificity regarding the most likely type of aspiration: Silent aspiration * Aspiration Pneumonia - indicate substance such as food or vomitus, oils, or other solids or liquids * Other type * Unable to determine Use of terms such as suspected, likely, concern for, or probable (associated with a specific diagnosis that is being evaluated, monitored, or treated as if it exists) are acceptable and can be coded in the inpatient setting, when documented at the time of discharge. Thank you, Nany Juarez [facility], CDIS Extension: [phone] Please use your independent medical judgment in providing your response. THIS QUERY IS PART OF THE PERMANENT MEDICAL RECORD Provider Response: Other (Silent aspirations) Other Diagnosis: Silent aspirations
--- NOTE | 2022-03-02 13:21 | PM.EVENT ---
Event Note Date of Service: 03/02/22 Event Note: 71M admitted to ICU for acute hypoxic respiratory failure likely due to aspiratoin pneumonia due to lethargy from COVID, now extubated and downgraded to IMC continue unasyn lactulose for constipation
[2022-03-02 17:54] LABS: Glucose, Whole Blood 86 mg/dL (60-115)
[2022-03-02 21:20] LABS: Glucose, Whole Blood 84 mg/dL (60-115)
[2022-03-03] MEDS: Ampicillin Sodium/Sulbactam Na 3 GM in 0.9 % Sodium Chloride 100 ML IV ×4 (03:25→21:42)
[2022-03-03 03:53] VITALS: BP 182/89; PULSE 70; RESP 18; TEMP 36.6; O2SAT 94
[2022-03-03 07:46] LABS: MANUAL DIFF FLAG NO
[2022-03-03 07:50] LABS: Glucose, Whole Blood 87 mg/dL (60-115)
[2022-03-03 07:51] LABS: Basophils Percent Auto 0.1 % (0-2); Eosinophils Absolute Auto 0.4 X10*3/uL (0.0-0.4); Eosinophils Percent Auto 3.4 % (0-4); Hematocrit 36.7 % (42.0-52.0); Hemoglobin 11.7 g/dl (14.0-18.0); Imm Gran Abs Auto 0.26 X10*3/uL (0.00-0.03); Imm Gran Pct Auto 2.3 % (0.0-0.4); Lymphocytes Absolute Auto 2.2 X10*3/uL (1.2-4.9); Mean Corpuscular HGB Conc 31.9 g/dl (31.0-36.0); Mean Corpuscular Volume 90.8 fL (80.0-98.0); Mean Platelet Volume 12.1 fL (9.4-12.4); Monocytes Absolute Auto 1.1 X10*3/uL (0.1-1.2); Monocytes Percent Auto 9.6 % (2-11); Neutrophils Absolute Auto 7.3 x10*3/uL (2.0-8.3); Neutrophils Percent Auto 64.6 % (45-73); Platelet Count 199 X10*3/uL (160-400); Red Blood Count 4.04 X10*6/uL (4.60-5.80); Red Cell Distribution Width 14.2 % (11.0-16.0); White Blood Count 11.2 X10*3/uL (4.8-10.8)
[2022-03-03 07:53] LABS: VBG Base Excess 0.7 mmol/L; VBG HCO3 24 mmol/L (22-26); VBG pCO2 35 mmHg; VBG pH 7.44 (7.32-7.43); VBG pO2 56 mmHg
[2022-03-03 08:00] VITALS: BP 160/70; PULSE 84; RESP 16; TEMP 36.7; O2SAT 96
[2022-03-03 08:02] LABS: Venous Blood Gas Refer to POC result
[2022-03-03 08:09] LABS: Anion Gap 12 (12-20); Blood Urea Nitrogen 25 mg/dL (9-16); Calcium 8.6 mg/dL (8.4-10.2); Carbon Dioxide 27 mmol/L (22-29); Chloride 111 mmol/L (96-108); Creatinine Clr Calc Pharmacy 84.6; Estimated Glomerular Filt Rate > 60; Glucose Random 88 mg/dL (60-115); Magnesium 2.1 mg/dL (1.6-2.6); Phosphorus 3.9 mg/dL (2.7-4.5); Potassium 3.8 mmol/L (3.3-5.1); Sodium 146 mmol/L (135-145)
--- NOTE | 2022-03-03 09:59 | MHC.CM.PN ---
Male71 DX Hypoxic respiratory failure. DP return to [facility] via BLS. no discharge today. The Pt's O2 requirement has increased. Patient is requiring 5L o2 via NC today.
--- NOTE | 2022-03-03 10:58 | MHC.CLN ---
F/U PT CURRENTLY RECEIVING PUREED DIET WITH NT LIQ PER TRAINING PERSONNEL SUPERVISOR RECOMMEND ADDING ENSURE BID TO INCREASE KCALS SUPP PROVIDES 700KCALS, 40G PROTEIN MONITOR PO INTAKE CLOSELY
[2022-03-03 11:28] VITALS: BP 134/62; PULSE 83; RESP 20; TEMP 37.4; O2SAT 89
[2022-03-03 11:39] LABS: Glucose, Whole Blood 126 mg/dL (60-115)
--- NOTE | 2022-03-03 13:06 | MHC.SL.SWA ---
Speech Pathologist Impression: Oropharyngeal dysphagia Risk of Aspiration Due to: History of Pneumonia Reduced Cognition Dysphasia Diet Status: Baseline diet for PT is PUREE (NDD1) w/NECTAR THICK liquids. Liquid Consistency and Strategies for Safe Swallow: Liquid Intake Recommendation: [place] Thick Liquid Intake Strategies: Small Sips No Straws Solid Food Consistency: Dietary Recommendations: Pureed (NDD1) Additional Modifications to Solid Foods: Ensure patient is awake and alert for meals. Decrease distractions. May need to hold tray depending on mental status. Check oral cavity, ensure oral cavity is clear before giving more bites. Alternate bite of food with sip of liquid. Aspiration precautions apply. Patient requires 1:1 assistance feeding. Oral Medication Intake: Crushed with Puree Please contact the pharmacy regarding appropriate crushable or liquid drug formulations that are available whenever modified delivery is recommended. Compensatory Strategies and Precautions to be Taken for Safe Swallow: Sitting Upright (90 deg) No Straw Small Bites and Sips Alternate Liquids/Solids Rate of Ingestion Change Oral Check Supervision While Eating and Drinking for Safe Swallow: Total Supervision (1:1) Foods to Avoid: Very sticky solids Swallowing Recommended Treatments: Compens. Strategy Educat. Recommendation for Speech: Inpatient Speech Therapy Comment: Pt presents with oral pharyngeal dysphagia, characterized by a disorganized oral phase w/tongue pumping to transport bolus, mild, episodic delay of swallow w/reduced laryngeal elevation on swallow. Pt is edentulous. Pt tolerated NECTAR THICK liquid and PUREED (NDD1) solids w/ no clinical signs of aspiration at Bedside. These consistencies are reportedly the Pt's baseline. Recommend START diet of PUREED (NDD1) w/ NECTAR THICK liquids, Pills CRUSHED IN PUREE. PT will need full assist for all meals, w/ liquids by TSP only, slowed rate of administration of meal, close monitor for aspiration signs. Recommendations discussed in person w/ MD and Nursing, sent by secure text to gambling broker. JOB COACHING will follow while inpt to monitor toleration of diet, re-assess swallow, upgrade if needed. Frequency/Duration: M-F Date Range for Service Req: Timeline to reassess: Inner Tube Cutter Clinican/Clinical Fellow: No Supervisory Statement: I have reviewed and agree with the student/clinical fellow's documentation: N/A Speech Language Pathologist: Miracle Robin M.A., CCC-JOB COACHING
[2022-03-03 15:16] VITALS: BP 160/84; PULSE 81; RESP 16; TEMP 38.4; O2SAT 94
--- NOTE | 2022-03-03 15:21 | HO.PM.IMPN ---
Subjective Subjective Date of Service: 03/03/22 Interval History: seen and evaluated this morning Nonverbal and unable to provide any meaningful answers Still mildly tachycardic and requiring oxygen supplement Review of Systems Nonverbal Physical Exam Vital Signs: Vital Signs: Last Vital Signs Temp 101.1 F H 03/03/22 15:16 Pulse 81 03/03/22 15:16 Resp 16 03/03/22 15:16 BP 160/84 H 03/03/22 15:16 Pulse Ox 94 03/03/22 15:16 BMI result Body Mass Index 30.4 Const: Other: Constitutional : Alert, nonverbal, looks weak and frail Neck : Normal inspection, Supple Cardiovascular : RRR, no JVP, no lower extremity edema Respiratory : fair bilateral air entry, basal fine crackles, no wheezes or rhonchi Gastrointestinal: soft, lax, Normal bowel sounds, Non tender Skin : Warm, Dry Neurological : Alert , none verbal, hard to hear and does not follow Objective Data Active Medications Albuterol/Ipratropium (Albuterol/Iprat 2.5/0.5mg 3 Ml Ampul.Neb) 3 ml INHALE Q4H PRN PRN Reason: Shortness of Breath/Wheezing Last Admin: 03/01/22 22:36 Dose: 3 ml Documented by: CHRISTIAN Ampicillin Sodium/Sulbactam (Sodium 3 gm/ Sodium Chloride) 100 mls @ 200 mls/hr IV Q6H [facility] Last Admin: 03/03/22 14:13 Dose: 200 mls/hr Documented by: FREDY Insulin Human Lispro (Insulin Lispro 100 Unit/Ml 3 Ml Vial) 0 unit SUBCUT QIDACHS [facility]; Protocol Last Admin: 03/03/22 11:49 Dose: Not Given Documented by: FREDY Non-Admin Reason: No Insulin Coverage Lactulose (Lactulose 20 Gm/30 Ml Solution) 20 gm PO BID [facility] Last Admin: 03/03/22 10:26 Dose: Not Given Documented by: FREDY Non-Admin Reason: pt unable to swallow Pharmacy Consult (Consult Rx Perform Med Rec) 1 each MISCELLANE ONCE PRN PRN Reason: Consult order Labs CBC & Chem 7: 03/03/22 07:39 03/03/22 07:39 Labs: Laboratory Results - last 24 hr 03/02/22 03/02/2222 17:50 20:59 07:37 MCV MCH MCHC RDW Plt Count MPV Immature Gran % (Auto) Neut % (Auto) Lymph % (Auto) [place] % (Auto) Eos % (Auto) Baso % (Auto) Lymph # (Auto) [place] # (Auto) Eos # (Auto) Baso # (Auto) Abs Immat Gran (auto) Absolute Neuts (auto) Absolute Nucleated RBC Nucleated RBC % (auto) VBG pH VBG pCO2 VBG pO2 VBG HCO3 VBG O2 Saturation VBG Base Excess Anion Gap Estim Creat Clear Calc Estimated GFR POC Glucose 86 84 87 Random Glucose Calcium Phosphorus Magnesium 03/03/22 03/03/22 03/03/22 07:39 07:39 07:45 MCV 90.8 MCH 29.0 MCHC 31.9 RDW 14.2 Plt Count 199 MPV 12.1 Immature Gran % (Auto) 2.3 H Neut % (Auto) 64.6 Lymph % (Auto) 20.0 [place] % (Auto) 9.6 Eos % (Auto) 3.4 Baso % (Auto) 0.1 Lymph # (Auto) 2.2 [place] # (Auto) 1.1 Eos # (Auto) 0.4 Baso # (Auto) 0.0 Abs Immat Gran (auto) 0.26 H Absolute Neuts (auto) 7.3 Absolute Nucleated RBC 0.000 Nucleated RBC % (auto) 0.0 VBG pH 7.44 H VBG pCO2 35 VBG pO2 56 VBG HCO3 24 VBG O2 Saturation 84.0 VBG Base Excess 0.7 Anion Gap 12 Estim Creat Clear Calc 84.6 Estimated GFR > 60 POC Glucose Random Glucose 88 Calcium 8.6 Phosphorus 3.9 Magnesium 2.1 03/03/22 11:24 MCV MCH MCHC RDW Plt Count MPV Immature Gran % (Auto) Neut % (Auto) Lymph % (Auto) [place] % (Auto) Eos % (Auto) Baso % (Auto) Lymph # (Auto) [place] # (Auto) Eos # (Auto) Baso # (Auto) Abs Immat Gran (auto) Absolute Neuts (auto) Absolute Nucleated RBC Nucleated RBC % (auto) VBG pH VBG pCO2 VBG pO2 VBG HCO3 VBG O2 Saturation VBG Base Excess Anion Gap Estim Creat Clear Calc Estimated GFR POC Glucose 126 H Random Glucose Calcium Phosphorus Magnesium Microbiology Microbiology Results: Microbiology 02/25/22 14:56 Blood Culture - Final Blood - Venous No growth after 5 days. 02/25/22 14:04 Blood Culture - Final Blood - Venous No growth after 5 days. Assessment and Plan (1) Acute metabolic encephalopathy: Status: Acute (2) COVID-19: Status: Acute (3) Respiratory failure: Status: Acute (4) Aspiration pneumonia: Status: Acute Plan 71-year-old gentleman, nonverbal at baseline, resident of [facility], admitted with alteration of mental status and acute hypoxic respiratory failure, COVID-19 positive, requiring intubation and ventilatory support. Acute hypoxic respiratory failure secondary to COVID-19 ARDS extubated 03/01/2022 continue dexamethasone aspiration pneumonia with leukocytosis continue Unasyn Wean oxygen down as tolerated Difficulty swallowing OIL FIELD LABORER evaluation, on with wide diet Hypernatremia Sodium 146 Secondary to decreased oral intake Encourage p.o. intake and free water Consider D5W OIL FIELD LABORER following DVT PPX Compression devices Patient will need inpatient hospital stay overnight to continue treatment for hypoxic respiratory failure and picture of pneumonia. Quality Stroke Does the patient have a stroke diagnosis?: No VTE Prior VTE?: No VTE Risk Level:: Medical - moderate - high VTE Device Contraindication: N/A - Device Ordered VTE Drug Contraindication: N/A - Med Ordered
[2022-03-03 15:46] LABS: Glucose, Whole Blood 151 mg/dL (60-115)
[2022-03-03] MEDS: dexAMETHasone sod phosphate 4 MG/ML VIAL 6 MG IVPUSH (16:00)
[2022-03-03] MEDS: Insulin Lispro 100 UNIT/ML 3 ML VIAL SUBCUT ×2 (16:01→21:39)
[2022-03-03 19:35] VITALS: BP 181/87; PULSE 70; RESP 16; TEMP 36.7; O2SAT 95
[2022-03-03 20:59] LABS: Glucose, Whole Blood 182 mg/dL (60-115)
[2022-03-03] MEDS: Lactulose 20 GM/30 ML SOLUTION PO (21:39)
[2022-03-03 23:41] VITALS: BP 148/68; PULSE 68; RESP 19; TEMP 36.6; O2SAT 93
[2022-03-04 03:10] VITALS: BP 140/73; PULSE 60; RESP 18; TEMP 36.6; O2SAT 93
[2022-03-04] MEDS: Ampicillin Sodium/Sulbactam Na 3 GM in 0.9 % Sodium Chloride 100 ML IV ×4 (03:17→20:41)
[2022-03-04 06:34] LABS: Hematocrit 37.1 % (42.0-52.0); Hemoglobin 11.8 g/dl (14.0-18.0); Mean Corpuscular HGB Conc 31.8 g/dl (31.0-36.0); Mean Corpuscular Hemoglobin 28.9 pg (27.0-33.0); Mean Corpuscular Volume 90.7 fL (80.0-98.0); Mean Platelet Volume 12.6 fL (9.4-12.4); Platelet Count 219 X10*3/uL (160-400); Red Blood Count 4.09 X10*6/uL (4.60-5.80); Red Cell Distribution Width 14.3 % (11.0-16.0); White Blood Count 11.2 X10*3/uL (4.8-10.8)
[2022-03-04 06:50] LABS: Anion Gap 13 (12-20); Blood Urea Nitrogen 23 mg/dL (9-16); Carbon Dioxide 24 mmol/L (22-29); Chloride 113 mmol/L (96-108); Creatinine Clr Calc Pharmacy 87.8; Estimated Glomerular Filt Rate > 60; Glucose Random 118 mg/dL (60-115); Sodium 146 mmol/L (135-145)
[2022-03-04 07:48] LABS: Glucose, Whole Blood 100 mg/dL (60-115)
[2022-03-04 08:00] VITALS: BP 180/80; PULSE 73; RESP 20; TEMP 37; O2SAT 94
[2022-03-04] MEDS: Lactulose 20 GM/30 ML SOLUTION PO ×2 (10:03→20:41)
[2022-03-04] MEDS: dexAMETHasone sod phosphate 4 MG/ML VIAL 6 MG IVPUSH (10:03)
[2022-03-04] MEDS: Finasteride 5 MG TABLET PO (10:04)
[2022-03-04] MEDS: Omeprazole 40 MG CAPSULE.DR PO (10:04)
[2022-03-04 11:38] VITALS: BP 148/70; PULSE 71; RESP 20; TEMP 36.6; O2SAT 96
[2022-03-04 11:49] LABS: Glucose, Whole Blood 215 mg/dL (60-115)
--- NOTE | 2022-03-04 11:50 | MHC.SL.SWA ---
Speech Pathologist Impression: Risk of Aspiration Due to: History of Pneumonia Reduced Cognition Dysphasia Diet Status: Baseline diet for PT is PUREE (NDD1) w/NECTAR THICK liquids. Liquid Consistency and Strategies for Safe Swallow: Liquid Intake Recommendation: [place] Thick Liquid Intake Strategies: Small Sips No Straws Solid Food Consistency: Dietary Recommendations: Pureed (NDD1) Additional Modifications to Solid Foods: Ensure patient is awake and alert for meals. Decrease distractions. May need to hold tray depending on mental status. Check oral cavity, ensure oral cavity is clear before giving more bites. Alternate bite of food with sip of liquid. Aspiration precautions apply. Patient requires 1:1 assistance feeding. Oral Medication Intake: Crushed with Puree Please contact the pharmacy regarding appropriate crushable or liquid drug formulations that are available whenever modified delivery is recommended. Compensatory Strategies and Precautions to be Taken for Safe Swallow: Sitting Upright (90 deg) No Straw Small Bites and Sips Alternate Liquids/Solids Rate of Ingestion Change Oral Check Supervision While Eating and Drinking for Safe Swallow: Total Supervision (1:1) Foods to Avoid: Very sticky solids Swallowing Recommended Treatments: Compens. Strategy Educat. Recommendation for Speech: Inpatient Speech Therapy Comment: Pt was seen this a.m., was dozing when MOTHER'S HELPER entered, but then was fully awake when head of bed raised up. Pt was given tsp amounts and controlled cup sip of nectar thick liquid, with improved oral management noted today (pt did not push out liquid with tongue thrust as previously observed). Pt noted to use disorganized tongue pumping to propel bolus, but produced a timely swallow w/mildly reduced elevation. On puree, again demonstrated a disorganized management of bolus, w/ tongue pumping, mild delay initiating swallow and mildly reduced elevation of larynx on swallow. Mild oral residual noted, which was cleared by liquid wash. Pt had eaten well at breakfast consuming most of the food on his tray. Nursing reported no difficulty on current diet of PUREE (NDD1) w/NECTAR THICK liquids w/PILLS CRUSHED in PUREE. Recommend Pt continue with this diet. Frequency/Duration: M-F Date Range for Service Req: Timeline to reassess: Traffic Control Operator Clinican/Clinical Fellow: No Supervisory Statement: I have reviewed and agree with the student/clinical fellow's documentation: N/A Speech Language Pathologist: Anneliese Robles M.A., CCC-MOTHER'S HELPER
[2022-03-04] MEDS: Insulin Lispro 100 UNIT/ML 3 ML VIAL SUBCUT ×2 (12:59→17:32)
--- NOTE | 2022-03-04 15:21 | HO.PM.IMPN ---
Subjective Subjective Date of Service: 03/04/22 Interval History: seen and evaluated this morning Nonverbal and unable to provide any meaningful answers Weaning down oxygen supplement Review of Systems Nonverbal Physical Exam Vital Signs: Vital Signs: Last Vital Signs Temp 97.9 F 03/04/22 11:38 Pulse 71 03/04/22 11:38 Resp 20 03/04/22 11:38 BP 148/70 H 03/04/22 11:38 Pulse Ox 96 03/04/22 11:38 BMI result Body Mass Index 30.4 Const: Other: Constitutional : Alert, nonverbal, looks weak and frail Neck : Normal inspection, Supple Cardiovascular : RRR, no JVP, no lower extremity edema Respiratory : fair bilateral air entry, basal fine crackles, no wheezes or rhonchi Gastrointestinal: soft, lax, Normal bowel sounds, Non tender Skin : Warm, Dry Neurological : Alert , none verbal, hard to hear and does not follow Objective Data Active Medications Acetaminophen (Acetaminophen 325 Mg Tablet) 650 mg PO Q6H PRN PRN Reason: Fever >101 Albuterol/Ipratropium (Albuterol/Iprat 2.5/0.5mg 3 Ml Ampul.Neb) 3 ml INHALE Q4H PRN PRN Reason: Shortness of Breath/Wheezing Last Admin: 03/01/22 22:36 Dose: 3 ml Documented by: CHRISTIAN Dexamethasone Sodium Phosphate (Dexamethasone Sod Phosphate 4 Mg/Ml Vial) 6 mg IVPUSH DAILY [facility] Last Admin: 03/04/22 10:03 Dose: 6 mg Documented by: SCAR Finasteride (Finasteride 5 Mg Tablet) 5 mg PO DAILY [facility] Last Admin: 03/04/22 10:04 Dose: 5 mg Documented by: SCAR Ampicillin Sodium/Sulbactam (Sodium 3 gm/ Sodium Chloride) 100 mls @ 200 mls/hr IV Q6H [facility] Last Infusion: 03/04/22 11:18 Dose: 0 mls/hr Documented by: SCAR Insulin Human Lispro (Insulin Lispro 100 Unit/Ml 3 Ml Vial) 0 unit SUBCUT QIDACHS [facility]; Protocol Last Admin: 03/04/22 12:59 Dose: 4 unit Documented by: SCAR Lactulose (Lactulose 20 Gm/30 Ml Solution) 20 gm PO BID [facility] Last Admin: 03/04/22 10:03 Dose: 20 gm Documented by: CSAR Omeprazole (Omeprazole 40 Mg Capsule.Dr) 40 mg PO DAILY@0630 [facility] Last Admin: 03/04/22 10:04 Dose: 40 mg Documented by: SCAR Pharmacy Consult (Consult Rx Perform Med Rec) 1 each MISCELLANE ONCE PRN PRN Reason: Consult order Pravastatin Sodium (Pravastatin Sodium 40 Mg Tablet) 40 mg PO BEDTIME [facility] Tamsulosin HCl (Tamsulosin Hcl 0.4 Mg Capsule) 0.4 mg PO BEDTIME [facility] Labs CBC & Chem 7: 03/04/22 06:20 03/04/22 06:20 Labs: Laboratory Results - last 24 hr 03/03/22 03/03/22 03/04/22 15:41 20:32 06:20 MCV 90.7 MCH 28.9 MCHC 31.8 RDW 14.3 Plt Count 219 MPV 12.6 H Absolute Nucleated RBC 0.000 Nucleated RBC % (auto) 0.0 Anion Gap Estim Creat Clear Calc Estimated GFR POC Glucose 151 H 182 H Random Glucose Calcium 03/04/22 03/04/22 03/04/22 06:20 07:44 11:42 MCV MCH MCHC RDW Plt Count MPV Absolute Nucleated RBC Nucleated RBC % (auto) Anion Gap 13 Estim Creat Clear Calc 87.8 Estimated GFR > 60 POC Glucose 100 215 H Random Glucose 118 H Calcium 9.0 Assessment and Plan (1) Aspiration pneumonia: Status: Acute (2) COVID-19: Status: Acute Plan 71-year-old gentleman, nonverbal at baseline, resident of [facility], admitted with alteration of mental status and acute hypoxic respiratory failure, COVID-19 positive, requiring intubation and ventilatory support. Acute hypoxic respiratory failure secondary to COVID-19 ARDS extubated 03/01/2022 continue dexamethasone day 2 aspiration pneumonia with leukocytosis continue Unasyn Wean oxygen down as tolerated Difficulty swallowing [place] evaluation, on with wide diet Hypernatremia Sodium 146 Secondary to decreased oral intake Encourage p.o. intake and free water [place] following DVT PPX Compression devices Patient will need inpatient hospital stay overnight to continue treatment for hypoxic respiratory failure and picture of pneumonia. Quality Stroke Does the patient have a stroke diagnosis?: No VTE Prior VTE?: No VTE Risk Level:: Medical - moderate - high VTE Device Contraindication: N/A - Device Ordered VTE Drug Contraindication: N/A - Med Ordered
[2022-03-04 16:00] VITALS: BP 145/68; PULSE 76; RESP 18; TEMP 36.9; O2SAT 97
[2022-03-04 16:48] LABS: Glucose, Whole Blood 188 mg/dL (60-115)
[2022-03-04 20:00] VITALS: BP 106/56; PULSE 67; RESP 19; TEMP 36.8; O2SAT 96
[2022-03-04] MEDS: Tamsulosin HCL 0.4 MG CAPSULE PO (20:41)
[2022-03-04] MEDS: Pravastatin Sodium 40 MG TABLET PO (20:41)
[2022-03-04 21:03] LABS: Glucose, Whole Blood 134 mg/dL (60-115)
[2022-03-05] VITALS (8 sets, daily range): BP systolic 153–178; BP diastolic 70–82; PULSE 56–78; RESP 16–20; TEMP 36.7–37.3; O2SAT 92–98
[2022-03-05] MEDS: Ampicillin Sodium/Sulbactam Na 3 GM in 0.9 % Sodium Chloride 100 ML IV ×4 (03:02→21:31)
[2022-03-05] MEDS: Omeprazole 40 MG CAPSULE.DR PO (05:29)
[2022-03-05 06:48] LABS: Hematocrit 34.5 % (42.0-52.0); Hemoglobin 11.1 g/dl (14.0-18.0); Mean Corpuscular HGB Conc 32.2 g/dl (31.0-36.0); Mean Corpuscular Hemoglobin 29.1 pg (27.0-33.0); Mean Corpuscular Volume 90.3 fL (80.0-98.0); Mean Platelet Volume 12.7 fL (9.4-12.4); Platelet Count 222 X10*3/uL (160-400); Red Blood Count 3.82 X10*6/uL (4.60-5.80); Red Cell Distribution Width 14.5 % (11.0-16.0); White Blood Count 12.2 X10*3/uL (4.8-10.8)
[2022-03-05 07:18] LABS: Anion Gap 12 (12-20); Blood Urea Nitrogen 24 mg/dL (9-16); Calcium 8.4 mg/dL (8.4-10.2); Carbon Dioxide 23 mmol/L (22-29); Chloride 114 mmol/L (96-108); Creatinine Clr Calc Pharmacy 91.3; Estimated Glomerular Filt Rate > 60; Glucose Random 101 mg/dL (60-115); Potassium 3.9 mmol/L (3.3-5.1); Sodium 145 mmol/L (135-145)
[2022-03-05 07:55] LABS: Glucose, Whole Blood 95 mg/dL (60-115)
[2022-03-05] MEDS: dexAMETHasone sod phosphate 4 MG/ML VIAL 6 MG IVPUSH (08:07)
[2022-03-05] MEDS: Finasteride 5 MG TABLET PO (08:07)
[2022-03-05] MEDS: Lactulose 20 GM/30 ML SOLUTION PO ×2 (08:07→21:28)
--- NOTE | 2022-03-05 09:11 | MHC.CM.PN ---
Male 71 DX Covid He [facility]. DP is to return via BLS. He is being weaned of oxygen. PT eval will be needed to determine dispo.
--- NOTE | 2022-03-05 10:27 | MHC.CLN ---
F/U PO INTAKE 75% AVG. 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
--- NOTE | 2022-03-05 11:24 | MHC.SLORD ---
Speech Language Pathology Order Status: Pt offered puree trials at bedside. He was nonverbal with encouragement from the clinician he opened his mouth for 1/4 tsp puree and immediate cough. He was able to clear on his own. Given his toleration of >75% of meals per nutrition, and no changes in respiratory status or overall decompensation, we will continue to encourage current diet as directed (puree and nectar).
[2022-03-05 11:44] LABS: Glucose, Whole Blood 149 mg/dL (60-115)
--- NOTE | 2022-03-05 12:09 | MHC.CM.PN ---
Male 71 DX Covid Spoke with CAROLINE Knutson [phone]. The patient is in the process of being weaned from Oxygen. The group can accept him on O2. The staff will need to be trained if he is sent home with O2. The tubing is a safety hazard for the pt and other residence. They prefer he be weaned. DP home via BLS.
--- NOTE | 2022-03-05 12:24 | HO.PM.IMPN ---
Subjective Subjective Date of Service: 03/05/22 Interval History: seen and evaluated this morning Nonverbal and unable to provide any meaningful answers Weaning down oxygen supplement Review of Systems Nonverbal Physical Exam Vital Signs: Vital Signs: Last Vital Signs Temp 98.2 F 03/05/22 11:19 Pulse 70 03/05/22 11:19 Resp 20 03/05/22 11:19 BP 163/79 H 03/05/22 11:19 Pulse Ox 93 03/05/22 11:19 BMI result Body Mass Index 30.4 Const: Other: Constitutional : Alert, nonverbal, looks weak and frail Neck : Normal inspection, Supple Cardiovascular : RRR, no JVP, no lower extremity edema Respiratory : fair bilateral air entry, basal fine crackles, no wheezes or rhonchi Gastrointestinal: soft, lax, Normal bowel sounds, Non tender Skin : Warm, Dry Neurological : Alert , none verbal, hard to hear and does not follow Objective Data Active Medications Acetaminophen (Acetaminophen 325 Mg Tablet) 650 mg PO Q6H PRN PRN Reason: Fever >101 Albuterol/Ipratropium (Albuterol/Iprat 2.5/0.5mg 3 Ml Ampul.Neb) 3 ml INHALE Q4H PRN PRN Reason: Shortness of Breath/Wheezing Last Admin: 03/01/22 22:36 Dose: 3 ml Documented by: CHRISTIAN Dexamethasone Sodium Phosphate (Dexamethasone Sod Phosphate 4 Mg/Ml Vial) 6 mg IVPUSH DAILY [facility] Last Admin: 03/05/22 08:07 Dose: 6 mg Documented by: VIRA Finasteride (Finasteride 5 Mg Tablet) 5 mg PO DAILY [facility] Last Admin: 03/05/22 08:07 Dose: 5 mg Documented by: VIRA Ampicillin Sodium/Sulbactam (Sodium 3 gm/ Sodium Chloride) 100 mls @ 200 mls/hr IV Q6H [facility] Last Infusion: 03/05/22 10:32 Dose: 0 mls/hr Documented by: VIRA Insulin Human Lispro (Insulin Lispro 100 Unit/Ml 3 Ml Vial) 0 unit SUBCUT QIDACHS [facility]; Protocol Last Admin: 03/05/22 12:04 Dose: Not Given Documented by: VIRA Non-Admin Reason: No Insulin Coverage Lactulose (Lactulose 20 Gm/30 Ml Solution) 20 gm PO BID [facility] Last Admin: 03/05/22 08:07 Dose: 20 gm Documented by: VIRA Omeprazole (Omeprazole 40 Mg Capsule.) 40 mg PO DAILY@0630 [facility] Last Admin: 03/05/22 05:29 Dose: 40 mg Documented by: ANABEL Pharmacy Consult (Consult Rx Perform Med Rec) 1 each MISCELLANE ONCE PRN PRN Reason: Consult order Pravastatin Sodium (Pravastatin Sodium 40 Mg Tablet) 40 mg PO BEDTIME [facility] Last Admin: 03/04/22 20:41 Dose: 40 mg Documented by: ANABEL Tamsulosin HCl (Tamsulosin Hcl 0.4 Mg Capsule) 0.4 mg PO BEDTIME [facility] Last Admin: 03/04/22 20:41 Dose: 0.4 mg Documented by: ANABEL Labs CBC & Chem 7: 03/05/22 06:33 03/05/22 06:33 Labs: Laboratory Results - last 24 hr 03/04/22 03/04/22 03/05/22 16:23 20:37 06:33 MCV 90.3 MCH 29.1 MCHC 32.2 RDW 14.5 Plt Count 222 MPV 12.7 H Absolute Nucleated RBC 0.000 Nucleated RBC % (auto) 0.0 Anion Gap Estim Creat Clear Calc Estimated GFR POC Glucose 188 H 134 H Random Glucose Calcium 03/05/22 03/05/22 03/05/22 06:33 07:48 11:22 MCV MCH MCHC RDW Plt Count MPV Absolute Nucleated RBC Nucleated RBC % (auto) Anion Gap 12 Estim Creat Clear Calc 91.3 Estimated GFR > 60 POC Glucose 95 149 H Random Glucose 101 Calcium 8.4 D Assessment and Plan (1) Aspiration pneumonia: Status: Acute (2) ARDS (adult respiratory distress syndrome): Status: Acute (3) COVID-19: Status: Acute Plan 71-year-old gentleman, nonverbal at baseline, resident of [facility], admitted with alteration of mental status and acute hypoxic respiratory failure, COVID-19 positive, requiring intubation and ventilatory support. 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 Quality Stroke Does the patient have a stroke diagnosis?: No VTE Prior VTE?: No VTE Risk Level:: Medical - moderate - high VTE Device Contraindication: N/A - Device Ordered VTE Drug Contraindication: N/A - Med Ordered
[2022-03-05] MEDS: Insulin Lispro 100 UNIT/ML 3 ML VIAL SUBCUT (16:14)
[2022-03-05 16:17] LABS: Glucose, Whole Blood 179 mg/dL (60-115)
[2022-03-05 20:00] LABS: Glucose, Whole Blood 105 mg/dL (60-115)
[2022-03-05] MEDS: Pravastatin Sodium 40 MG TABLET PO (21:29)
[2022-03-05] MEDS: Tamsulosin HCL 0.4 MG CAPSULE PO (21:33)
[2022-03-06] MEDS: Ampicillin Sodium/Sulbactam Na 3 GM in 0.9 % Sodium Chloride 100 ML IV ×4 (03:12→21:22)
[2022-03-06 04:00] VITALS: BP 164/79; PULSE 55; RESP 16; TEMP 36.2; O2SAT 96
[2022-03-06 05:44] VITALS: BMI 29.2
[2022-03-06] MEDS: Omeprazole 40 MG CAPSULE.DR PO (06:10)
[2022-03-06] MEDS: hydroCHLOROthiazide 25 MG TABLET PO (09:59)
[2022-03-06] MEDS: dexAMETHasone sod phosphate 4 MG/ML VIAL 6 MG IVPUSH (10:00)
[2022-03-06] MEDS: lisinopriL 20 MG TABLET PO (10:02)
[2022-03-06] MEDS: Finasteride 5 MG TABLET PO (10:02)
[2022-03-06] MEDS: Lactulose 20 GM/30 ML SOLUTION PO ×2 (10:02→21:19)
[2022-03-06 11:43] VITALS: BP 186/86; PULSE 80; RESP 20; TEMP 36.9; O2SAT 92
--- NOTE | 2022-03-06 15:22 | P.PNIM_ITS ---
Subjective Subjective Date of Service: 03/06/22 Interval History: seen and evaluated this morning Nonverbal and unable to provide any meaningful answers Weaning down oxygen supplement Tolerating diet and drinking fluids Review of Systems Nonverbal Physical Exam Vital Signs: Vital Signs: Last Vital Signs Temp 98.5 F 03/06/22 11:43 Pulse 80 03/06/22 11:43 Resp 20 03/06/22 11:43 BP 186/86 H 03/06/22 11:43 Pulse Ox 92 03/06/22 11:43 BMI result Body Mass Index 29.2 Const: Other: Constitutional : Alert, nonverbal, looks weak and frail Neck : Normal inspection, Supple Cardiovascular : RRR, no JVP, no lower extremity edema Respiratory : fair bilateral air entry, basal fine crackles, no wheezes or rhonchi Gastrointestinal: soft, lax, Normal bowel sounds, Non tender Skin : Warm, Dry Neurological : Alert , none verbal, hard to hear and does not follow Objective Data Active Medications Acetaminophen (Acetaminophen 325 Mg Tablet) 650 mg PO Q6H PRN PRN Reason: Fever >101 Albuterol/Ipratropium (Albuterol/Iprat 2.5/0.5mg 3 Ml Ampul.Neb) 3 ml INHALE Q4H PRN PRN Reason: Shortness of Breath/Wheezing Last Admin: 03/01/22 22:36 Dose: 3 ml Documented by: CHRISTIAN Dexamethasone Sodium Phosphate (Dexamethasone Sod Phosphate 4 Mg/Ml Vial) 6 mg IVPUSH DAILY [facility] Last Admin: 03/06/22 10:00 Dose: 6 mg Documented by: JENNI Finasteride (Finasteride 5 Mg Tablet) 5 mg PO DAILY [facility] Last Admin: 03/06/22 10:02 Dose: 5 mg Documented by: JENNI Hydrochlorothiazide (Hydrochlorothiazide 25 Mg Tablet) 25 mg PO DAILY@0800 [facility]; Protocol Last Admin: 03/06/22 09:59 Dose: 25 mg Documented by: JENNI Ampicillin Sodium/Sulbactam (Sodium 3 gm/ Sodium Chloride) 100 mls @ 200 mls/hr IV Q6H [facility] Last Infusion: 03/06/22 10:36 Dose: 0 mls/hr Documented by: JENNI Insulin Human Lispro (Insulin Lispro 100 Unit/Ml 3 Ml Vial) 0 unit SUBCUT QIDACHS [facility]; Protocol Last Admin: 03/06/22 11:55 Dose: Not Given Documented by: JENNI Non-Admin Reason: Patient Refused Lactulose (Lactulose 20 Gm/30 Ml Solution) 20 gm PO BID [facility] Last Admin: 03/06/22 10:02 Dose: 20 gm Documented by: JENNI Lisinopril (Lisinopril 20 Mg Tablet) 20 mg PO DAILY [facility]; Protocol Last Admin: 03/06/22 10:02 Dose: 20 mg Documented by: JENNI Loperamide HCl (Loperamide Hcl 2 Mg Capsule) 2 mg PO QID PRN PRN Reason: Diarrhea Omeprazole (Omeprazole 40 Mg Capsule.) 40 mg PO DAILY@629 [facility] Last Admin: 03/06/22 06:10 Dose: 40 mg Documented by: TERRANCE Pharmacy Consult (Consult Rx Perform Med Rec) 1 each MISCELLANE ONCE PRN PRN Reason: Consult order Pravastatin Sodium (Pravastatin Sodium 40 Mg Tablet) 40 mg PO BEDTIME [facility] Last Admin: 03/05/22 21:29 Dose: 40 mg Documented by: TERRANCE Tamsulosin HCl (Tamsulosin Hcl 0.4 Mg Capsule) 0.4 mg PO BEDTIME [facility] Last Admin: 03/05/22 21:33 Dose: 0.4 mg Documented by: TERRANCE Labs CBC & Chem 7: 03/05/22 06:33 03/05/22 06:33 Labs: Laboratory Results - last 24 hr 03/05/22 03/05/22 16:05 19:47 POC Glucose 179 H 105 Assessment and Plan (1) Aspiration pneumonia: Status: Acute (2) Acute metabolic encephalopathy: Status: Acute (3) ARDS (adult respiratory distress syndrome): Status: Acute (4) COVID-19: Status: Acute Plan 71-year-old gentleman, nonverbal at baseline, resident of [facility], admitted with alteration of mental status and acute hypoxic respiratory failure, COVID-19 positive, requiring intubation and ventilatory support. 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 intake and free water SHEET METAL WORKER MAINTENANCE following Uncontrolled hypertension Start amlodipine Continue lisinopril and HCT DVT PPX Lovenox Patient will need inpatient hospital stay overnight to continue treatment for hypoxic respiratory failure and picture of pneumonia needs wean down O2 before returning to care home. Quality Stroke Does the patient have a stroke diagnosis?: No VTE Prior VTE?: No VTE Risk Level:: Medical - moderate - high VTE Device Contraindication: N/A - Device Ordered VTE Drug Contraindication: N/A - Med Ordered
[2022-03-06 15:41] VITALS: BP 136/69; PULSE 57; RESP 20; TEMP 36.9; O2SAT 95
[2022-03-06] MEDS: amLODIPine Besylate 5 MG TABLET PO (16:13)
[2022-03-06] MEDS: Enoxaparin Sodium 40 MG/0.4 ML SYRINGE SUBCUT (16:13)
[2022-03-06 20:00] VITALS: BP 178/87; PULSE 55; RESP 18; TEMP 36.7; O2SAT 95
[2022-03-06] MEDS: Pravastatin Sodium 40 MG TABLET PO (21:19)
[2022-03-06] MEDS: Tamsulosin HCL 0.4 MG CAPSULE PO (21:20)
[2022-03-07] VITALS (7 sets, daily range): BP systolic 124–178; BP diastolic 67–91; PULSE 54–78; RESP 17–20; TEMP 36.4–37.1; O2SAT 91–96; BMI 28.9
[2022-03-07] MEDS: Ampicillin Sodium/Sulbactam Na 3 GM in 0.9 % Sodium Chloride 100 ML IV ×4 (02:45→20:53)
[2022-03-07] MEDS: Omeprazole 40 MG CAPSULE.DR PO (05:39)
[2022-03-07] MEDS: Finasteride 5 MG TABLET PO (10:19)
[2022-03-07] MEDS: dexAMETHasone sod phosphate 4 MG/ML VIAL 6 MG IVPUSH (10:19)
[2022-03-07] MEDS: lisinopriL 20 MG TABLET PO (10:21)
[2022-03-07] MEDS: hydroCHLOROthiazide 25 MG TABLET PO (10:21)
[2022-03-07] MEDS: Lactulose 20 GM/30 ML SOLUTION PO ×2 (10:22→20:55)
[2022-03-07] MEDS: amLODIPine Besylate 5 MG TABLET PO (10:22)
--- NOTE | 2022-03-07 14:12 | HO.PM.IMPN ---
Subjective Subjective Date of Service: 03/07/22 Interval History: seen and evaluated this morning Nonverbal and unable to provide any meaningful answers Weaning down oxygen supplement Tolerating diet and drinking fluids Review of Systems Nonverbal Physical Exam Vital Signs: Vital Signs: Last Vital Signs Temp 97.7 F 03/07/22 12:00 Pulse 69 03/07/22 12:00 Resp 20 03/07/22 12:00 BP 129/68 03/07/22 12:00 Pulse Ox 93 03/07/22 12:00 BMI result Body Mass Index 28.9 Const: Other: Constitutional : Alert, nonverbal, looks weak and frail Neck : Normal inspection, Supple Cardiovascular : RRR, no JVP, no lower extremity edema Respiratory : fair bilateral air entry, basal fine crackles, no wheezes or rhonchi Gastrointestinal: soft, lax, Normal bowel sounds, Non tender Skin : Warm, Dry Neurological : Alert , none verbal, hard to hear and does not follow Objective Data Active Medications Acetaminophen (Acetaminophen 325 Mg Tablet) 650 mg PO Q6H PRN PRN Reason: Fever >101 Albuterol/Ipratropium (Albuterol/Iprat 2.5/0.5mg 3 Ml Ampul.Neb) 3 ml INHALE Q4H PRN PRN Reason: Shortness of Breath/Wheezing Last Admin: 03/01/22 22:36 Dose: 3 ml Documented by: CHRISTIAN Amlodipine Besylate (Amlodipine Besylate 5 Mg Tablet) 5 mg PO DAILY [facility]; Protocol Last Admin: 03/07/22 10:22 Dose: 5 mg Documented by: JENNI Dexamethasone Sodium Phosphate (Dexamethasone Sod Phosphate 4 Mg/Ml Vial) 6 mg IVPUSH DAILY [facility] Last Admin: 03/07/22 10:19 Dose: 6 mg Documented by: JENNI Enoxaparin Sodium (Enoxaparin Sodium 40 Mg/0.4 Ml Syringe) 40 mg SUBCUT Q24H [facility] Last Admin: 03/06/22 16:13 Dose: 40 mg Documented by: JENNI Finasteride (Finasteride 5 Mg Tablet) 5 mg PO DAILY [facility] Last Admin: 03/07/22 10:19 Dose: 5 mg Documented by: JENNI Hydrochlorothiazide (Hydrochlorothiazide 25 Mg Tablet) 25 mg PO DAILY@0800 [facility]; Protocol Last Admin: 03/07/22 10:21 Dose: 25 mg Documented by: JENNI Ampicillin Sodium/Sulbactam (Sodium 3 gm/ Sodium Chloride) 100 mls @ 200 mls/hr IV Q6H [facility] Last Infusion: 03/07/22 10:57 Dose: 0 mls/hr Documented by: JENNI Insulin Human Lispro (Insulin Lispro 100 Unit/Ml 3 Ml Vial) 0 unit SUBCUT QIDACHS [facility]; Protocol Last Admin: 03/07/22 11:15 Dose: Not Given Documented by: JENNI Non-Admin Reason: Patient Refused Lactulose (Lactulose 20 Gm/30 Ml Solution) 20 gm PO BID [facility] Last Admin: 03/07/22 10:22 Dose: 20 gm Documented by: JENNI Lisinopril (Lisinopril 20 Mg Tablet) 20 mg PO DAILY [facility]; Protocol Last Admin: 03/07/22 10:21 Dose: 20 mg Documented by: JENNI Loperamide HCl (Loperamide Hcl 2 Mg Capsule) 2 mg PO QID PRN PRN Reason: Diarrhea Omeprazole (Omeprazole 40 Mg Capsule.) 40 mg PO DAILY@0630 [facility] Last Admin: 03/07/22 05:39 Dose: 40 mg Documented by: TERRANCE Pharmacy Consult (Consult Rx Perform Med Rec) 1 each MISCELLANE ONCE PRN PRN Reason: Consult order Pravastatin Sodium (Pravastatin Sodium 40 Mg Tablet) 40 mg PO BEDTIME [facility] Last Admin: 03/06/22 21:19 Dose: 40 mg Documented by: TERRANCE Tamsulosin HCl (Tamsulosin Hcl 0.4 Mg Capsule) 0.4 mg PO BEDTIME [facility] Last Admin: 03/06/22 21:20 Dose: 0.4 mg Documented by: TERRANCE Labs CBC & Chem 7: 03/05/22 06:33 03/05/22 06:33 Assessment and Plan (1) Aspiration pneumonia: Status: Acute (2) COVID-19: Status: Acute (3) ARDS (adult respiratory distress syndrome): Status: Acute Plan 71-year-old gentleman, nonverbal at baseline, resident of [facility], admitted with alteration of mental status and acute hypoxic respiratory failure, COVID-19 positive, requiring intubation and ventilatory support. 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 intake and free water ASSOCIATE PROGRAM MANAGER following Uncontrolled hypertension better controlled continue amlodipine Continue lisinopril and HCT DVT PPX Lovenox Patient will need inpatient hospital stay overnight to continue treatment for hypoxic respiratory failure and picture of pneumonia needs wean down O2 before returning to correction. Quality Stroke Does the patient have a stroke diagnosis?: No VTE Prior VTE?: No VTE Risk Level:: Medical - moderate - high VTE Device Contraindication: N/A - Device Ordered VTE Drug Contraindication: N/A - Med Ordered
[2022-03-07] MEDS: Enoxaparin Sodium 40 MG/0.4 ML SYRINGE SUBCUT (16:00)
[2022-03-07] MEDS: Tamsulosin HCL 0.4 MG CAPSULE PO (20:55)
[2022-03-07] MEDS: Pravastatin Sodium 40 MG TABLET PO (20:55)
[2022-03-08 03:15] VITALS: BP 155/85; PULSE 56; RESP 21; TEMP 36.8; O2SAT 96
[2022-03-08] MEDS: Ampicillin Sodium/Sulbactam Na 3 GM in 0.9 % Sodium Chloride 100 ML IV ×2 (03:24→08:45)
[2022-03-08 06:00] VITALS: BMI 29.4
[2022-03-08 06:58] LABS: Hematocrit 37.2 % (42.0-52.0); Hemoglobin 12.1 g/dl (14.0-18.0); Mean Corpuscular HGB Conc 32.5 g/dl (31.0-36.0); Mean Corpuscular Hemoglobin 29.1 pg (27.0-33.0); Mean Corpuscular Volume 89.4 fL (80.0-98.0); Mean Platelet Volume 13.2 fL (9.4-12.4); Platelet Count 218 X10*3/uL (160-400); Red Blood Count 4.16 X10*6/uL (4.60-5.80); Red Cell Distribution Width 14.1 % (11.0-16.0); White Blood Count 13.9 X10*3/uL (4.8-10.8)
[2022-03-08 07:07] LABS: Anion Gap 12 (12-20); Blood Urea Nitrogen 22 mg/dL (9-16); Calcium 8.9 mg/dL (8.4-10.2); Carbon Dioxide 26 mmol/L (22-29); Chloride 107 mmol/L (96-108); Creatinine Clr Calc Pharmacy 87.5; Estimated Glomerular Filt Rate > 60; Glucose Random 86 mg/dL (60-115); Potassium 4.3 mmol/L (3.3-5.1); Sodium 141 mmol/L (135-145)
[2022-03-08 07:08] LABS: C Reactive Protein 1.93 mg/dL (< or = 0.50)
[2022-03-08 07:31] VITALS: BP 152/74; PULSE 59; RESP 20; TEMP 36.6; O2SAT 98
[2022-03-08] MEDS: Finasteride 5 MG TABLET PO (08:44)
[2022-03-08] MEDS: amLODIPine Besylate 5 MG TABLET PO (08:44)
[2022-03-08] MEDS: lisinopriL 20 MG TABLET PO (08:44)
[2022-03-08] MEDS: hydroCHLOROthiazide 25 MG TABLET PO (08:44)
[2022-03-08] MEDS: dexAMETHasone sod phosphate 4 MG/ML VIAL 6 MG IVPUSH (08:45)
[2022-03-08] MEDS: Lactulose 20 GM/30 ML SOLUTION PO (08:45)
[2022-03-08 11:59] VITALS: BP 140/74; PULSE 59; RESP 18; TEMP 37; O2SAT 97
--- NOTE | 2022-03-08 12:37 | PM.DS ---
DS: Providers Provider Date of Service: 03/08/22 Date of admission: 02/25/22 16:43 Primary care physician: Brandon Tovar MD DS: Diagnosis Discharge Diagnosis (1) Aspiration pneumonia: Status: Acute (2) COVID-19: Status: Acute (3) ARDS (adult respiratory distress syndrome): Status: Acute (4) Acute metabolic encephalopathy: Status: Acute (5) Respiratory failure: Status: Acute (6) Hypoxia: Status: Acute DS: Summary Hospital Course Hospital Course: The patient has prolonged hospital stay. For full details please returned to full EMR. Admission note HPI 71-year-old male hypertensive and hyperlipidemic with benign prostatic hypertrophy noted to be tachypneic with a marked drop in oxygen saturation clearly respiratory distress and altered mental status with increased agitation and he is already a [facility] patient who is nonverbal and deaf and has no ability to really communicate Got progressively worse to the point where he was staring off his oxygen source clearly really from his delirium and acute indication for intubation which was performed with rocuronium paralysis and apparently very the no foul colored sputum was removed and there was a question of course is to whether not the could have been an aspiration superimposed so at this point he was covered in the emergency room with vancomycin and Zosyn Hospital course The patient was admitted to the hospital for treatment of acute hypoxic respiratory failure secondary to COVID-19 ARDS requiring ICU admission and intubation from February 25. Extubated by 03/01/2022 within evidence of aspiration noticed which was treated with IV antibiotic with addition of steroids as the patient continue to require oxygen supplement on the medical floor. He finished total of 7 days of IV antibiotics and 60s of steroids while in the hospital stay with weaning down his oxygen down to room air. He was able to ambulate with physical therapist who recommended home physical therapy for him. He was noted to have hypernatremia which was corrected by dextrose water 1st within increase daily water intake encouraging the patient to drink more. Evaluated by speech therapy after extubation who recommended modified diet of pureed with nectar thick fluids. Patient tolerated diet well. His blood pressure was noted to be significantly elevated and improved partially to the addition of amlodipine on top of lisinopril and hydrochlorothiazide. Start amlodipine for elevated blood pressure and [facility] blood [facility]. Continue dexamethasone for 4 more days. Continue Augmentin for 3 more days Encourage patient to drink more fluids mainly water To follow-up with speech therapy as outpatient. Time Spent with Patient Time attestation: Total time spent providing and/or coordinating discharge services: Discharge coordination time: Greater than 30 minutes Quality: Safe Use of Opioids Does Pt have an Active Cancer Diagnosis on the Problem List?: No Quality: Stroke Does the patient have a stroke diagnosis?: No Physical Exam Vital Signs: Vital Signs: Last Vital Signs Temp 98.6 F 03/08/22 11:59 Pulse 59 03/08/22 11:59 Resp 18 03/08/22 11:59 BP 140/74 H 03/08/22 11:59 Pulse Ox 97 03/08/22 11:59 BMI result Body Mass Index 29.4 Const: Other: Constitutional : Alert, nonverbal, not in distress Neck : Normal inspection, Supple Cardiovascular : RRR, no JVP, no lower extremity edema Respiratory : fair bilateral air entry, basal fine crackles, no wheezes or rhonchi Gastrointestinal: soft, lax, Normal bowel sounds, Non tender Skin : Warm, Dry Neurological : Alert , none verbal, hard to hear , no focal deficit noticed DS: Data Data Completed and Pending Labs on day of discharge: Laboratory Results - last 24 hr 03/08/22 03/08/22 03/08/22 06:29 06:29 06:29 WBC 13.9 H RBC 4.16 L Hgb 12.1 L Hct 37.2 L MCV 89.4 MCH 29.1 MCHC 32.5 RDW 14.1 Plt Count 218 MPV 13.2 H Absolute Nucleated RBC 0.000 Nucleated RBC % (auto) 0.0 Sodium 141 Potassium 4.3 Chloride 107 Carbon Dioxide 26 Anion Gap 12 BUN 22 H Creatinine 0.77 Estim Creat Clear Calc 87.5 Estimated GFR > 60 Random Glucose 86 Calcium 8.9 C-Reactive Protein 1.93 H Discharge Plan Discharge Patient Disposition: Home Health Service Discharge Diagnosis: Aspiration pneumonia Acute hypoxic respiratory failure Metabolic encephalopathy COVID-19 infection Referrals: Brandon Tovar MD [Primary Care Provider] - 1 Week Discharge Medications: New amlodipine 5 mg Tablet 5 mg PO DAILY 30 Days Qty: 30 0RF Protocol: Hold for SBP< HOLD for SBP < : 90 dexamethasone 6 mg tablet 6 mg PO DAILY Qty: 4 0RF amoxicillin-pot clavulanate 400-57 mg/5 mL suspension for reconstitution 10 ml PO BID 3 Days Qty: 60 0RF Continued finasteride 5 mg tablet 5 mg PO DAILY 90 Days Qty: 90 3RF tamsulosin 0.4 mg capsule 0.4 mg PO BEDTIME 30 Days Qty: 90 3RF pravastatin 40 mg Tablet 40 mg PO BEDTIME 0RF lisinopril 20 mg Tablet 20 mg PO DAILY 0RF hydrochlorothiazide 25 mg Tablet 25 mg PO DAILY@0800 0RF docusate sodium 100 mg Tablet 200 mg PO DAILY 0RF oxybutynin chloride 10 mg tablet extended release 24 hr 1 tab PO DAILY 0RF magnesium hydroxide [Milk of Magnesia] 400 mg/5 mL suspension 30 ml PO BEDTIME 0RF lorazepam 2 mg tablet 1 tab PO DAILY PRN (Reason: Anxiety) 0RF Rx Instructions: PRE MED FOR DENTAL APPOINTMENTS bacitracin zinc 500 unit/gram Ointment 1 appl TOPICAL QID 0RF polyethylene glycol 3350 [Miralax] 17 gram/dose Powder 17 g PO DAILY@1700 0RF Culturelle 10 billion cell Capsule 1 cap PO DAILY 0RF multivitamin with folic acid [Thera] 400 mcg tablet 1 tab PO BEDTIME 0RF omeprazole 40 mg capsule,delayed release(DR/EC) 40 mg PO DAILY 0RF lactulose 10 gram/15 mL solution 30 ml PO BEDTIME 0RF loperamide 2 mg capsule 2 mg PO QID PRN (Reason: Diarrhea) 0RF loratadine 10 mg tablet 10 mg PO DAILY PRN (Reason: Allergy Symptoms) 0RF Discharge Orders: Discharge Order (Routine); Ordered 03/08/22 Ordered By: Sofia Santacruz Diet: advance to usual diet and other Activity on Discharge: As tolerated Stand Alone Forms: Patient Portal Discharge page Care Plan Goals: Read below Health Concerns: Read below Plan of Treatment: Diet change: pureed with nectar thick fluids. Addition of Ensure twice daily. Assessment: You were admitted to the hospital for treatment of difficulty breathing and low oxygen saturation. Admitted to the ICU and treated for COVID infection with associated aspiration pneumonia. Responded well to IV antibiotics for total of 7 days in the hospital as your blood cultures remain negative and you were weaned off the oxygen. Evaluated by Physical therapy who recommended home therapy. Start amlodipine for elevated blood pressure and [facility] blood [facility]. Continue dexamethasone for 4 more days. Continue Augmentin for 3 more days
--- NOTE | 2022-03-08 13:03 | MHC.CM.PN ---
Patient has been medically cleared for dc to home/[facility], with home PT. [facility] has accepted Patient for home PT and they have been made aware of today's dc. CM has left a detailed message for Guardian/Sister/Sharmin at [phone], informing her of the dc plan and addressing the IMM.
--- NOTE | 2022-03-08 13:08 | P.F2F_ITS ---
Service Date Service Date: 03/08/22 Encounter Date of encounter: 03/08/22 Reasons for Services Signs and symptoms assessed: Physical deconditioning Reason for physical therapy: home safety and mobility and therapeutic exercises Homebound: Leaving the home is medically contraindicated at this time without the asist of a device and/or another person due th the listed conditions above and below. Reason homebound: unsteady gait / fall risk Certification: Based on the above findings, I certify that this patient is confined to the home and needs intermittent longterm care, physical therapy and/or speech therapy, or continues to need occupational therapy. The patient is under my care, and I have initiated the establishment of the plan of care. The patient will be followed by a physician who will periodically review the plan of care.
== END 2022-03-08 14:00 | disposition home health service (06) | DRG 870 ==
LOC: HO.ED 16:25 → HO.EDOVER 17:50 → HO.ICU 17:50 → HO.IMC 03-02 11:51
PROVIDERS: Internal Medicine; Internal Medicine Pulmonary Disease; Physician Assistant; Admitting Provider Internal Medicine Cardiovascular Disease; Emergency Provider Emergency Medicine; PCP Internal Medicine; Visit Provider Student in an Organized Health Care Education/Training Program
DX: A41.89 Other specified sepsis (principal); U07.1 COVID-19; J80 Acute respiratory distress syndrome; G93.41 Metabolic encephalopathy; J69.0 Pneumonitis due to inhalation of food and vomit; F05 Delirium due to known physiological condition; E87.0 Hyperosmolality and hypernatremia; K59.00 Constipation, unspecified; N40.0 Benign prostatic hyperplasia without lower urinary tract symptoms; Z88.1 Allergy status to other antibiotic agents; Z79.899 Other long term (current) drug therapy
CPT/HCPCS: 36415; 71045; 71275; 74177; 80048; 80053; 80076; 80202; 81003; 82040; 82550; 82728; 82803; 82947; 83605; 83615; 83690; 83735; 83880; 84100; 84145; 84484; 85025; 85027; 85379; 85610; 85730; 86140; 87040; 87070; 87205; 87635; 92526; 92610; 93005; 94002; 94003; 94640; 96365; 96367; 96375; 97162; 99285; 99291; 99292; C1758; J0295; J1100; J1650; J2250; J2370; J2405; J2543; J3010; J3370; P9047; Q9967

== ENCOUNTER → 2022-08-27 10:51 | Outpatient (BNVA) | payer MEDICARE, MEDICAID, SELFPAY | PROVIDERS: PCP Internal Medicine; Visit Provider Urology | DX: N40.1 Benign prostatic hyperplasia with lower urinary tract symptoms (principal); N13.8 Other obstructive and reflux uropathy; R33.9 Retention of urine, unspecified; R35.1 Nocturia | CPT/HCPCS: Q3014 ==

== ENCOUNTER 2022-08-29 09:09 | Emergency (ER) | payer MEDICARE, MEDICAID, SELFPAY ==
--- NOTE | ~2022-08-29 | XR_ITS ---
EXAMINATION: XR CHEST CLINICAL INFORMATION: Cough COMPARISON: 02/25/2022 portable chest and selected images from CT TECHNIQUE: AP portable upright view of the chest was obtained. FINDINGS: Persistent or recurrent right pleural thickening. Persistent or recurrent streaky basilar lung opacities with low lung volumes, likely atelectasis. Stable heart and mediastinum. Nonobstructive gas pattern. XR/XR chest 1V IMPRESSION: Chronic or recurrent bibasilar streaky opacities in right pleural thickening.
[2022-08-29 09:20] VITALS: BP 134/76; PULSE 84; RESP 18; TEMP 36.7; O2SAT 96; BMI 25.7
[2022-08-29 09:25] VITALS: RESP 18
--- NOTE | 2022-08-29 09:51 | ED_ITS ---
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 As per food operations manager patient was coughing, coughing got better and patient started coughing again since yesterday. States patient has been and baseline mentally and not altered. Denies patient having any fever or chills. She denies any leg swelling or patient have any coughing up blood. Patient's history of pneumonia in the past facility would like patient to have chest x-ray Related Data Home Medications Medication Instructions Recorded Confirmed docusate sodium 100 mg tablet 200 mg PO DAILY 11/19/20 02/25/22 hydrochlorothiazide 25 mg tablet 25 mg PO DAILY@0800 11/19/20 02/25/22 lisinopril 20 mg tablet 20 mg PO DAILY 11/19/20 02/25/22 pravastatin 40 mg tablet 40 mg PO BEDTIME 11/19/20 02/25/22 lactulose 10 gram/15 mL oral 30 ml PO BEDTIME 08/25/21 02/25/22 solution loperamide 2 mg capsule 2 mg PO QID PRN Diarrhea 08/25/21 02/25/22 loratadine 10 mg tablet 10 mg PO DAILY PRN Allergy Symptoms 08/25/21 02/25/22 multivitamin with folic acid 400 1 tab PO BEDTIME 08/25/21 02/25/22 mcg tablet (Thera) omeprazole 40 mg capsule,delayed 40 mg PO DAILY 08/25/21 02/25/22 release Lactobacillus rhamnosus GG 10 1 cap PO DAILY 02/25/22 02/25/22 billion cell capsule (Culturelle) bacitracin zinc 500 unit/gram 1 appl topical QID 02/25/22 02/25/22 topical ointment lorazepam 2 mg tablet 1 tab PO DAILY PRN Anxiety 02/25/22 02/25/22 magnesium hydroxide 400 mg/5 mL 30 ml PO BEDTIME 04/28/22 04/28/22 oral suspension (Milk of Magnesia) polyethylene glycol 3350 17 17 g PO DAILY@1700 02/25/22 02/25/22 gram/dose oral powder (Miralax) Previous Rx's Medication Instructions Recorded amlodipine 5 mg tablet 5 mg PO DAILY 30 days #30 tabs 03/08/22 amoxicillin 500 mg-potassium 1 tab PO BID #6 tabs 03/08/22 clavulanate 125 mg tablet dexamethasone 6 mg tablet 6 mg PO DAILY #4 tabs 03/08/22 finasteride 5 mg tablet 5 mg PO DAILY 90 days #90 tabs 08/27/22 tamsulosin 0.4 mg capsule 0.4 mg PO BEDTIME 90 days #90 caps 08/27/22 albuterol sulfate 90 mcg/actuation 2 puff inhalation Q4-6H PRN 08/29/22 aerosol inhaler shortness of breath or wheezing 5 days #8.5 grams amoxicillin 875 mg-potassium 1 tab PO BID 5 days #10 tabs 08/29/22 clavulanate 125 mg tablet doxycycline hyclate 100 mg capsule 100 mg PO BID 7 days #14 caps 08/29/22 Allergies Allergy/AdvReac Type Severity Reaction Status Date / Time azithromycin [AZITHROMYCIN] Allergy Unknown UNKOWN Verified 08/25/21 10:17 Macrolide Antibiotics Allergy Unknown unknown Verified 08/25/21 10:17 [MACROLIDE ANTIBIOTICS] Macrolides and ketolides Allergy Unknown Unknown Uncoded 08/25/21 10:17 Review of Systems Review of Systems: COugh Yes all other systems are reviewed and are negative PMFSH Past Medical History Medical History Barretts syndrome BPH (benign prostatic hyperplasia) GERD (gastroesophageal reflux disease) [place]OW[place] (hard of hearing) HTN (hypertension) Non-verbal learning disorder Social History Social History (Updated 02/25/22 @ 13:21 by Rissa Walden DO) Household Members: Unknown / Unable to assess Housing: Assisted Living Facility Unable to assess alcohol history related to: Unable to respond and Unknown Patient Tobacco Use Status: Tobacco use Unknown Advance Directives: No Advance Directives Information Provided: No service: No Current occupational status: disabled Physical Exam ED Vital Signs: Vital Signs - 24 hr 08/29/22 09:20 08/29/22 09:25 08/29/22 12:43 Temperature 98.0 F Pulse Rate 84 79 Respiratory Rate 18 18 16 Blood Pressure 134/76 123/77 Pulse Oximetry 96 95 Oxygen Delivery Method Room Air Room Air BMI result Body Mass Index 25.7 Const General: cooperative, healthy appearing, comfortable, no acute distress, well developed, alert and awake Orientation/consciousness: oriented to time and patient oriented x3 [facility] Head: Yes normal to inspection, Yes No palpable skull fracture present, Yes normocephalic, Yes atraumatic and No abrasion Eyes General: appearance normal, both eyes and all related structures Neck Neck: Yes normal visual inspection, Yes full ROM, Yes no lymphadenopathy, Yes no meningeal signs, Yes trachea midline, Yes supple, No anterior neck swelling and No tender Chest Chest palpation & inspection: normal inspection of the chest and normal palpation of entire chest wall Resp Other: baseline non-verbal Effort & Inspection: normal respiratory effort Auscultation: clear to auscultation bilaterally Cardio Jugular venous distension: no JVD Heart sounds: S1 normal heart sound present GI Inspection: Yes normal to inspection and No abdominal wall ecchymosis Palpation (GI): Soft to palpation, not firm, nontender, no guarding and not rigid General: No CVA tenderness and Yes no CVA tenderness Back/Spine/Pelvis Back: no CVA tenderness, No CVA tenderness and No back tenderness Skin General skin exam: no rashes or lesions noted and elasticity normal Neuro General: oriented to time, patient oriented x3, gait normal, tone normal and no meningeal signs Cranial nerves: Yes CN's II-XII intact bilaterally Extrem Other: bilateral lower extremites negative for swelling, pitting edema, or calf tenderness General: Yes normal to inspection and Yes full ROM Psych Appearance: grossly normal, well kempt and not disheveled Course Course Course Narrative: Patient well-appearing. Patient not coughing. Patient vital signs stable. Due to age of patient being nonverbal which is to basic labs include EKG troponin an d will do chest x-ray. SARS ordered Reevaluation(s) Reevaluation #1: EKG negative STEMI. Two troponins negative. BNP negative. SARS swab negative. Patient never cough throughout ED visit. Not suspecting PE. Chest x-ray shows recurrent opacities Time: 12:56 Medical Decision Making MDM Narrative Medical decision making narrative: Bronchitis Lab Data Result diagrams: 08/29/22 09:59 08/29/22 09:59 Labs: Lab Results 08/29/22 08/29/22 08/29/22 Range/Units 09:59 09:59 09:59 WBC 5.7 (4.8-10.8) X10*3/uL RBC 4.92 (4.60-5.80) X10*6/uL Hgb 14.1 (14.0-18.0) g/dl Hct 43.9 (42.0-52.0) % MCV 89.2 (80.0-98.0) fL MCH 28.7 (27.0-33.0) pg MCHC 32.1 (31.0-36.0) g/dl RDW 13.8 (11.0-16.0) % Plt Count 188 (160-400) X10*3/uL MPV 11.9 (9.4-12.4) fL Immature Gran % (Auto) 0.2 (0.0-0.4) % Neut % (Auto) 38.2 L (45-73) % Lymph % (Auto) 47.6 H (20-40) % [place] % (Auto) 8.4 (2-11) % Eos % (Auto) 5.1 H (0-4) % Baso % (Auto) 0.5 (0-2) % Lymph # (Auto) 2.7 (1.2-4.9) X10*3/uL [place] # (Auto) 0.5 (0.1-1.2) X10*3/uL Eos # (Auto) 0.3 (0.0-0.4) X10*3/uL Baso # (Auto) 0.0 (0.0-0.2) X10*3/uL Abs Immat Gran (auto) 0.01 (0.00-0.03) X10*3/uL Absolute Neuts (auto) 2.2 (2.0-8.3) x10*3/uL Absolute Nucleated RBC 0.000 (0.0-0.012) X10*3/uL Nucleated RBC % (auto) 0.0 (0.0-0.2) /100WBC PT 11.4 (10.0-13.1) SEC INR 1.0 (0.9-1.1) APTT 31.1 (26.0-36.4) SEC Sodium 140 (135-145) mmol/L Potassium 4.0 (3.3-5.1) mmol/L Chloride 103 (96-108) mmol/L Carbon Dioxide 27 (22-29) mmol/L Anion Gap 14 (12-20) BUN 16 (9-16) mg/dL Creatinine 0.84 (0.5-1.4) mg/dL Estim Creat Clear Calc 76.9 Estimated GFR > 60 Random Glucose 86 (60-115) mg/dL Calcium 9.2 (8.4-10.2) mg/dL Total Bilirubin 0.4 (0.0-1.0) mg/dL AST 19 D (5-37) U/L ALT 24 (0-40) U/L Alkaline Phosphatase 76 D (39-117) U/L Troponin I High Sens (<3.5-35.0) ng/L B-Natriuretic Peptide (<100) pg/mL Total Protein 6.7 (6.5-8.0) g/dL Albumin 3.9 (3.5-5.0) g/dL Influenza Type A (PCR) (Negative) Influenza Type B (PCR) (Negative) RSV RNA Qual (PCR) (Negative) SARS-CoV-2 RNA (RT-PCR) (Negative) 08/29/22 08/29/22 08/29/22 Range/Units 09:59 10:10 12:04 WBC (4.8-10.8) X10*3/uL RBC (4.60-5.80) X10*6/uL Hgb (14.0-18.0) g/dl Hct (42.0-52.0) % MCV (80.0-98.0) fL MCH (27.0-33.0) pg MCHC (31.0-36.0) g/dl RDW (11.0-16.0) % Plt Count (160-400) X10*3/uL MPV (9.4-12.4) fL Immature Gran % (Auto) (0.0-0.4) % Neut % (Auto) (45-73) % Lymph % (Auto) (20-40) % [place] % (Auto) (2-11) % Eos % (Auto) (0-4) % Baso % (Auto) (0-2) % Lymph # (Auto) (1.2-4.9) X10*3/uL [place] # (Auto) (0.1-1.2) X10*3/uL Eos # (Auto) (0.0-0.4) X10*3/uL Baso # (Auto) (0.0-0.2) X10*3/uL Abs Immat Gran (auto) (0.00-0.03) X10*3/uL Absolute Neuts (auto) (2.0-8.3) x10*3/uL Absolute Nucleated RBC (0.0-0.012) X10*3/uL Nucleated RBC % (auto) (0.0-0.2) /100WBC PT (10.0-13.1) SEC INR (0.9-1.1) APTT (26.0-36.4) SEC Sodium (135-145) mmol/L Potassium (3.3-5.1) mmol/L Chloride (96-108) mmol/L Carbon Dioxide (22-29) mmol/L Anion Gap (12-20) BUN (9-16) mg/dL Creatinine (0.5-1.4) mg/dL Estim Creat Clear Calc Estimated GFR Random Glucose (60-115) mg/dL Calcium (8.4-10.2) mg/dL Total Bilirubin (0.0-1.0) mg/dL AST (5-37) U/L ALT (0-40) U/L Alkaline Phosphatase (39-117) U/L Troponin I High Sens < 3.5 < 3.5 (<3.5-35.0) ng/L B-Natriuretic Peptide 15 (<100) pg/mL Total Protein (6.5-8.0) g/dL Albumin (3.5-5.0) g/dL Influenza Type A (PCR) NEGATIVE (Negative) Influenza Type B (PCR) NEGATIVE (Negative) RSV RNA Qual (PCR) NEGATIVE (Negative) SARS-CoV-2 RNA (RT-PCR) NEGATIVE (Negative) ECG Data Interpretation: Normal sinus rhythm. Ventricular rate 69. NH interval 150. QRS 80. QTC 377. Negative STEMI Discharge Plan Discharge Clinical Impression: Bronchitis Patient Disposition: Home, Self-Care Instructions: Acute Bronchitis (ED), Pneumonia (ED) Additional Instructions: Your blood work and EKG came back negative for signs of heart attack or heart failure. COVID, RSV, influenza came back negative. X-ray shows right opacity that is recurrent. You will be discharged with antibiotic. Return to the ED immediately for any shortness of breath, use of chest and abdomen muscles for breathing, altered mental status, weakness, leg swelling, calf pain, coughing up blood, chest pain inspiration, or any other concerning symptoms. Please Follow up with PCP. Prescriptions: New doxycycline hyclate 100 mg capsule 100 mg PO BID 7 Days Qty: 14 0RF amoxicillin-pot clavulanate 875-125 mg tablet 1 tab PO BID 5 Days Qty: 10 0RF albuterol sulfate 90 mcg/actuation HFA aerosol inhaler 2 puff inhalation Q4-6H PRN (Reason: shortness of breath or wheezing) 5 Days Qty: 8.5 0RF No Action pravastatin 40 mg Tablet 40 mg PO BEDTIME lisinopril 20 mg Tablet 20 mg PO DAILY hydrochlorothiazide 25 mg Tablet 25 mg PO DAILY@0800 docusate sodium 100 mg Tablet 200 mg PO DAILY magnesium hydroxide [Milk of Magnesia] 400 mg/5 mL suspension 30 ml PO BEDTIME lorazepam 2 mg tablet 1 tab PO DAILY PRN (Reason: Anxiety) Rx Instructions: PRE MED FOR DENTAL APPOINTMENTS bacitracin zinc 500 unit/gram Ointment 1 appl TOPICAL QID polyethylene glycol 3350 [Miralax] 17 gram/dose Powder 17 g PO DAILY@1700 Culturelle 10 billion cell Capsule 1 cap PO DAILY amlodipine 5 mg Tablet 5 mg PO DAILY 30 Days Qty: 30 0RF Protocol: Hold for SBP< HOLD for SBP < : 90 dexamethasone 6 mg tablet 6 mg PO DAILY Qty: 4 0RF amoxicillin-pot clavulanate 500-125 mg tablet 1 tab PO BID Qty: 6 0RF multivitamin with folic acid [Thera] 400 mcg tablet 1 tab PO BEDTIME omeprazole 40 mg capsule,delayed release(DR/EC) 40 mg PO DAILY lactulose 10 gram/15 mL solution 30 ml PO BEDTIME loperamide 2 mg capsule 2 mg PO QID PRN (Reason: Diarrhea) loratadine 10 mg tablet 10 mg PO DAILY PRN (Reason: Allergy Symptoms) finasteride 5 mg tablet 5 mg PO DAILY 90 Days Qty: 90 3RF tamsulosin 0.4 mg capsule 0.4 mg PO BEDTIME 90 Days Qty: 90 3RF Referrals: Brandon Tovar MD [Primary Care Provider] - (Bronchitis Pneumonia) Interventions: ED Discharge Assessment Last Done: 08/29/22 13:49 Discharge Date/Time: 08/29/22 13:49 Print Language: Citizen Of [place]
--- NOTE | 2022-08-29 09:58 | ECG_ITS ---
Test Reason : CHEST TIGHTNESS Blood Pressure : / mmHG Vent. Rate : 069 BPM Atrial Rate : 069 BPM P-R Int : 150 ms QRS Dur : 080 ms QT Int : 352 ms P-R-T Axes : 108 021 053 degrees QTc Int : 377 ms Normal sinus rhythm Intra-ventricular conduction delay Otherwise normal ECG When compared with ECG of 28-FEB-2022 02:09, No significant change was found Heart rate has increased Referred By: Miguelito Ayala Electronically Signed By:MIGUEL BETANCUR MD
[2022-08-29 10:04] LABS: MANUAL DIFF FLAG NO
[2022-08-29 10:05] LABS: Basophils Percent Auto 0.5 % (0-2); Eosinophils Absolute Auto 0.3 X10*3/uL (0.0-0.4); Eosinophils Percent Auto 5.1 % (0-4); Hematocrit 43.9 % (42.0-52.0); Hemoglobin 14.1 g/dl (14.0-18.0); Imm Gran Abs Auto 0.01 X10*3/uL (0.00-0.03); Imm Gran Pct Auto 0.2 % (0.0-0.4); Lymphocytes Absolute Auto 2.7 X10*3/uL (1.2-4.9); Lymphocytes Percent Auto 47.6 % (20-40); Mean Corpuscular HGB Conc 32.1 g/dl (31.0-36.0); Mean Corpuscular Hemoglobin 28.7 pg (27.0-33.0); Mean Corpuscular Volume 89.2 fL (80.0-98.0); Mean Platelet Volume 11.9 fL (9.4-12.4); Monocytes Absolute Auto 0.5 X10*3/uL (0.1-1.2); Monocytes Percent Auto 8.4 % (2-11); Neutrophils Absolute Auto 2.2 x10*3/uL (2.0-8.3); Neutrophils Percent Auto 38.2 % (45-73); Platelet Count 188 X10*3/uL (160-400); Red Blood Count 4.92 X10*6/uL (4.60-5.80); Red Cell Distribution Width 13.8 % (11.0-16.0); White Blood Count 5.7 X10*3/uL (4.8-10.8)
[2022-08-29 10:12] LABS: Prothrombin Time 11.4 SEC (10.0-13.1)
[2022-08-29 10:14] LABS: Partial Thromboplastin Time 31.1 SEC (26.0-36.4)
[2022-08-29 10:24] LABS: Alanine Aminotransferase 24 U/L (0-40); Albumin Level 3.9 g/dL (3.5-5.0); Alkaline Phosphatase 76 U/L (39-117); Anion Gap 14 (12-20); Aspartate Amino Transferase 19 U/L (5-37); Bilirubin Total 0.4 mg/dL (0.0-1.0); Blood Urea Nitrogen 16 mg/dL (9-16); Calcium 9.2 mg/dL (8.4-10.2); Carbon Dioxide 27 mmol/L (22-29); Chloride 103 mmol/L (96-108); Creatinine Clr Calc Pharmacy 76.9; Estimated Glomerular Filt Rate > 60; Glucose Random 86 mg/dL (60-115); Sodium 140 mmol/L (135-145); Total Protein 6.7 g/dL (6.5-8.0)
[2022-08-29 10:28] LABS: B Type Natriuretic Peptide 15 pg/mL (<100); Troponin-I High Sensitivity < 3.5 ng/L (<3.5-35.0)
[2022-08-29 10:57] LABS: Influenza A PCR NEGATIVE (Negative); Influenza B PCR NEGATIVE (Negative); Resp Syncy Virus RNA Qual PCR NEGATIVE (Negative); SARS COV2 PCR INHOUSE NEGATIVE (Negative)
[2022-08-29 12:30] LABS: Troponin-I High Sensitivity < 3.5 ng/L (<3.5-35.0)
[2022-08-29 12:43] VITALS: BP 123/77; PULSE 79; RESP 16; O2SAT 95
== END 2022-08-29 13:49 | disposition home or self-care (01) ==
PROVIDERS: Physician Assistant; Emergency Provider Emergency Medicine; PCP Internal Medicine
DX: J40 Bronchitis, not specified as acute or chronic (principal); Z20.822 Contact with and (suspected) exposure to COVID-19; I10 Essential (primary) hypertension; E78.00 Pure hypercholesterolemia, unspecified; Z79.02 Long term (current) use of antithrombotics/antiplatelets; Z79.899 Other long term (current) drug therapy
CPT/HCPCS: 0241U; 36415; 71045; 80053; 83880; 84484; 85025; 85610; 85730; 93005; 99283; 99284

== ENCOUNTER → 2023-03-02 15:50 | Outpatient (BNVA) | payer MEDICARE, MEDICAID, SELFPAY | PROVIDERS: PCP Internal Medicine; Visit Provider Urology | DX: N40.1 Benign prostatic hyperplasia with lower urinary tract symptoms (principal); R35.1 Nocturia; R97.20 Elevated prostate specific antigen [PSA] | CPT/HCPCS: 99212 ==

== ENCOUNTER 2023-05-07 22:02 | Emergency (ER) | payer MEDICARE, MEDICAID, SELFPAY ==
[2023-05-07 22:07] VITALS: BP 128/90; RESP 18; TEMP 37.5; BMI 26.5
--- NOTE | 2023-05-07 22:55 | PC.NURSE ---
unable to obtain HR or pulse ox in triage pt extremities cold poor perfusion . tried o2 probe and sticker
[2023-05-07 23:02] LABS: Alanine Aminotransferase 43 U/L (0-40); Albumin Level 3.3 g/dL (3.5-5.0); Alkaline Phosphatase 68 U/L (39-117); Anion Gap 12 (12-20); Aspartate Amino Transferase 30 U/L (5-37); Bilirubin Direct 0.1 mg/dL (0.0-0.5); Bilirubin Total 0.4 mg/dL (0.0-1.0); Blood Urea Nitrogen 23 mg/dL (9-16); Calcium 9.3 mg/dL (8.4-10.2); Carbon Dioxide 29 mmol/L (22-29); Chloride 97 mmol/L (96-108); Creatinine Clr Calc Pharmacy 55.1; Estimated Glomerular Filt Rate 56; Glucose Random 136 mg/dL (60-115); Lipase 33 U/L (8-78); Potassium 3.8 mmol/L (3.3-5.1); Sodium 134 mmol/L (135-145); Total Protein 6.4 g/dL (6.5-8.0)
[2023-05-08 00:50] VITALS: BP 112/71; PULSE 94; RESP 18; TEMP 37.4; O2SAT 95
--- NOTE | 2023-05-08 03:05 | PC.NURSE ---
pt is trying to void at this time with his staff member at the bedside. due to bladder scanned for 402 and provider ordered straight cath if pt can not void.
--- NOTE | 2023-05-08 03:36 | ED.GENADULT ---
HPI - General Adult General Chief complaint: General Medical Stated complaint: shakeyfever,weakness Time Seen by Provider: 05/07/23 23:28 Source: other Mode of arrival: ambulatory History of Present Illness HPI narrative: 72-year-old male was brought in by staff from the facility where he is cared for and reports that while giving the patient a shower the patient began shaking, appeared to be unsteady on his feet and endorsed to the staff that he was feeling hot/cold and appear to be pale approximately 20 30 this evening. The senior care provider denied any issues with fever, nausea, vomiting, complaints of abdominal pain. Related Data Home Medications Medication Instructions Recorded Confirmed docusate sodium 100 mg tablet 200 mg PO DAILY 11/19/20 02/25/22 hydrochlorothiazide 25 mg tablet 25 mg PO DAILY@0800 11/19/20 02/25/22 lisinopril 20 mg tablet 20 mg PO DAILY 11/19/20 02/25/22 pravastatin 40 mg tablet 40 mg PO BEDTIME 11/19/20 02/25/22 lactulose 10 gram/15 mL oral 30 ml PO BEDTIME 08/25/21 02/25/22 solution loperamide 2 mg capsule 2 mg PO QID PRN Diarrhea 08/25/21 02/25/22 loratadine 10 mg tablet 10 mg PO DAILY PRN Allergy Symptoms 08/25/21 02/25/22 multivitamin with folic acid 400 1 tab PO BEDTIME 08/25/21 02/25/22 mcg tablet (Thera) omeprazole 40 mg capsule,delayed 40 mg PO DAILY 08/25/21 02/25/22 release Lactobacillus rhamnosus GG 10 1 cap PO DAILY 02/25/22 02/25/22 billion cell capsule (Culturelle) bacitracin zinc 500 unit/gram 1 appl topical QID 02/25/22 02/25/22 topical ointment lorazepam 2 mg tablet 1 tab PO DAILY PRN Anxiety 02/25/22 02/25/22 magnesium hydroxide 400 mg/5 mL 30 ml PO BEDTIME 02/25/22 02/25/22 oral suspension (Milk of Magnesia) polyethylene glycol 3350 17 17 g PO DAILY@1700 02/25/22 02/25/22 gram/dose oral powder (Miralax) Previous Rx's Medication Instructions Recorded amlodipine 5 mg tablet 5 mg PO DAILY 30 days #30 tabs 03/08/22 amoxicillin 500 mg-potassium 1 tab PO BID #6 tabs 03/08/22 clavulanate 125 mg tablet dexamethasone 6 mg tablet 6 mg PO DAILY #4 tabs 03/08/22 finasteride 5 mg tablet 5 mg PO DAILY 90 days #90 tabs 08/27/22 tamsulosin 0.4 mg capsule 0.4 mg PO BEDTIME 90 days #90 caps 08/27/22 albuterol sulfate 90 mcg/actuation 2 puff inhalation Q4-6H PRN 08/29/22 aerosol inhaler shortness of breath or wheezing 5 days #8.5 grams amoxicillin 875 mg-potassium 1 tab PO BID 5 days #10 tabs 08/29/22 clavulanate 125 mg tablet doxycycline hyclate 100 mg capsule 100 mg PO BID 7 days #14 caps 08/29/22 cefdinir 300 mg capsule 300 mg PO BID 7 days #14 caps 05/08/23 Allergies Allergy/AdvReac Type Severity Reaction Status Date / Time azithromycin [AZITHROMYCIN] Allergy Unknown UNKOWN Verified 05/07/23 22:18 Macrolide Antibiotics Allergy Unknown unknown Verified 05/07/23 22:18 [MACROLIDE ANTIBIOTICS] Macrolides and ketolides Allergy Unknown Unknown Uncoded 03/02/23 15:58 Review of Systems Review of Systems: Pertinent positives and negatives as stated in HPI. [facility] Past Medical History Source: nursing notes reviewed Medical History Barretts syndrome BPH (benign prostatic hyperplasia) GERD (gastroesophageal reflux disease) [place] (hard of hearing) HTN (hypertension) Non-verbal learning disorder Social History Social History Household Members: Unknown / Unable to assess Housing: Assisted Living Facility Unable to assess alcohol history related to: Unable to respond and Unknown Patient Tobacco Use Status: Tobacco use Unknown Smoked in Last 30 Days: No Use of substances other than those prescribed or required for medical reasons: No Advance Directives: No Advance Directives Information Provided: Yes service: No Current occupational status: disabled Physical Exam ED Vital Signs: Vital Signs - 24 hr 05/07/23 22:07 05/08/23 00:50 05/08/23 04:12 Temperature 99.5 F 99.3 F 100.4 F Pulse Rate 94 89 Respiratory Rate 18 18 14 Blood Pressure 128/90 H 112/71 101/62 Pulse Oximetry 95 97 Oxygen Delivery Method Room Air Room Air BMI result Body Mass Index 26.5 VITAL SIGNS: Reviewed. GENERAL: Slender, chronically ill, in no acute distress. HEAD: Normocephalic/atraumatic EYES: PERRLA, EOMI EARS: Ext canals without abnormality NOSE: Nares patent bilateral OROPHARYNX: no oral lesions noted, posterior pharynx clear NECK: Supple, no adenopathy LUNGS: Normal breath sounds. No adventitious sounds or accessory muscle use. [id number]<> CARDIOVASCULAR: Regular rate and rhythm without noted murmurs ABDOMEN: Soft, non-tender, non-distended with bowel sounds. MUSCULOSKELETAL: No tenderness, deformities, or effusions noted on gross inspection. EXTREMITIES: No cyanosis, clubbing or edema. SKIN: Inspection of the skin reveals no rashes NEUROLOGIC: Alert and oriented x 1. Strength and sensation to light touch were grossly intact x 4. Medical Decision Making Medical Decision Making MDM Narrative: 72-year-old male with history and clinical presentation, no evidence of shaking or rigors on my evaluation and patient appears to be hemodynamically stable, calm, cooperative without any acute complaints. Will evaluate for any evidence of infection, anemia. On review of all investigations, hematologic indices appear to be chronically stable and do not show any leukocytosis or left shift and anemia appears to be chronically stable. On review of chemistry studies findings are consistent with likely or oral intake of water. Urinalysis is significant for UTI and patient will undergo antibiotic treatment but is otherwise hemodynamically stable. Chest x-ray negative for any a pneumonia. Differential Diagnosis Please see the discussion above Lab Data Please see the discussion above 05/07/23 22:38 05/07/23 22:38 Labs: Lab Results 05/07/23 05/07/23 05/08/23 Range/Units 22:38 22:38 03:20 WBC 8.5 (4.8-10.8) X10*3/uL RBC 4.14 L (4.60-5.80) X10*6/uL Hgb 12.3 L (14.0-18.0) g/dl Hct 37.1 L (42.0-52.0) % MCV 89.6 (80.0-98.0) fL MCH 29.7 (27.0-33.0) pg MCHC 33.2 (31.0-36.0) g/dl RDW 13.8 (11.0-16.0) % Plt Count 167 (160-400) X10*3/uL MPV 11.6 (9.4-12.4) fL Immature Gran % (Auto) 0.6 H (0.0-0.4) % Neut % (Auto) 70.5 (45-73) % Lymph % (Auto) 17.7 L (20-40) % [place] % (Auto) 10.7 (2-11) % Eos % (Auto) 0.0 (0-4) % Baso % (Auto) 0.5 (0-2) % Lymph # (Auto) 1.5 (1.2-4.9) X10*3/uL [place] # (Auto) 0.9 (0.1-1.2) X10*3/uL Eos # (Auto) 0.0 (0.0-0.4) X10*3/uL Baso # (Auto) 0.0 (0.0-0.2) X10*3/uL Abs Immat Gran (auto) 0.05 H (0.00-0.03) X10*3/uL Absolute Neuts (auto) 6.0 (2.0-8.3) x10*3/uL Absolute Nucleated RBC 0.000 (0.0-0.012) X10*3/uL Nucleated RBC % (auto) 0.0 (0.0-0.2) /100WBC Sodium 134 L (135-145) mmol/L Potassium 3.8 (3.3-5.1) mmol/L Chloride 97 (96-108) mmol/L Carbon Dioxide 29 (22-29) mmol/L Anion Gap 12 (12-20) BUN 23 H (9-16) mg/dL Creatinine 1.27 (0.5-1.4) mg/dL Estim Creat Clear Calc 55.1 Estimated GFR 56 Random Glucose 136 H (60-115) mg/dL Calcium 9.3 (8.4-10.2) mg/dL Total Bilirubin 0.4 (0.0-1.0) mg/dL Direct Bilirubin 0.1 (0.0-0.5) mg/dL AST 30 (5-37) U/L ALT 43 H (0-40) U/L Alkaline Phosphatase 68 (39-117) U/L Total Protein 6.4 L (6.5-8.0) g/dL Albumin 3.3 L (3.5-5.0) g/dL Lipase 33 (8-78) U/L Urine Color Urine Appearance Urine pH (5.0-9.0) Ur Specific [place] (1.005-1.025) Urine Protein (Neg-Trace) mg/dL Urine Glucose (UA) (Negative) mg/dL Urine Ketones (Negative) mg/dL Urine Blood (Negative) Urine Nitrite (Negative) Ur Leukocyte Esterase (Negative) Urine RBC (0-2) /HPF Urine WBC (0-5) /HPF Urine WBC Clumps Ur Squamous Epith Cells (0-2) /HPF Urine Bacteria (None Seen) Hyaline Casts (0-2) /LPF COVID-19 (ANNAMARIE) Negative (Negative) COVID-19 Clin Com See Note 05/08/23 Range/Units 04:04 WBC (4.8-10.8) X10*3/uL RBC (4.60-5.80) X10*6/uL Hgb (14.0-18.0) g/dl Hct (42.0-52.0) % MCV (80.0-98.0) fL MCH (27.0-33.0) pg MCHC (31.0-36.0) g/dl RDW (11.0-16.0) % Plt Count (160-400) X10*3/uL MPV (9.4-12.4) fL Immature Gran % (Auto) (0.0-0.4) % Neut % (Auto) (45-73) % Lymph % (Auto) (20-40) % [place] % (Auto) (2-11) % Eos % (Auto) (0-4) % Baso % (Auto) (0-2) % Lymph # (Auto) (1.2-4.9) X10*3/uL [place] # (Auto) (0.1-1.2) X10*3/uL Eos # (Auto) (0.0-0.4) X10*3/uL Baso # (Auto) (0.0-0.2) X10*3/uL Abs Immat Gran (auto) (0.00-0.03) X10*3/uL Absolute Neuts (auto) (2.0-8.3) x10*3/uL Absolute Nucleated RBC (0.0-0.012) X10*3/uL Nucleated RBC % (auto) (0.0-0.2) /100WBC Sodium (135-145) mmol/L Potassium (3.3-5.1) mmol/L Chloride (96-108) mmol/L Carbon Dioxide (22-29) mmol/L Anion Gap (12-20) BUN (9-16) mg/dL Creatinine (0.5-1.4) mg/dL Estim Creat Clear Calc Estimated GFR Random Glucose (60-115) mg/dL Calcium (8.4-10.2) mg/dL Total Bilirubin (0.0-1.0) mg/dL Direct Bilirubin (0.0-0.5) mg/dL AST (5-37) U/L ALT (0-40) U/L Alkaline Phosphatase (39-117) U/L Total Protein (6.5-8.0) g/dL Albumin (3.5-5.0) g/dL Lipase (8-78) U/L Urine Color Yellow Urine Appearance Cloudy Urine pH 6.0 (5.0-9.0) Ur Specific [place] 1.015 (1.005-1.025) Urine Protein 30 (1+) H (Neg-Trace) mg/dL Urine Glucose (UA) Negative (Negative) mg/dL Urine Ketones Negative (Negative) mg/dL Urine Blood Trace H (Negative) Urine Nitrite Positive H (Negative) Ur Leukocyte Esterase Moderate (2+) H (Negative) Urine RBC 6-10 H (0-2) /HPF Urine WBC >50 H (0-5) /HPF Urine WBC Clumps Present Ur Squamous Epith Cells 0-2 (0-2) /HPF Urine Bacteria 4+ (None Seen) Hyaline Casts 0-2 (0-2) /LPF COVID-19 (ANNAMARIE) (Negative) COVID-19 Clin Com Radiology Impression Radiologist Impression: There is no pneumonia, otherwise my interpretation is in agreement with radiology's impression External Record Review External record reviewed: Outpatient record and Prior outpatient labs Discharge Plan Discharge Clinical Impression: Acute UTI Patient Disposition: Xfer Other Instructions: Urinary Tract Infection in Men (ED) Additional Instructions: 1. Resume all home medications as prescribed 2. Follow-up with your primary care provider on Tuesday morning. 3. Complete the entire course of antibiotics as prescribed. Return to the ER for any worsening symptoms. Prescriptions: New cefdinir 300 mg capsule 300 mg PO BID 7 Days Qty: 14 0RF No Action pravastatin 40 mg Tablet 40 mg PO BEDTIME lisinopril 20 mg Tablet 20 mg PO DAILY hydrochlorothiazide 25 mg Tablet 25 mg PO DAILY@0800 docusate sodium 100 mg Tablet 200 mg PO DAILY doxycycline hyclate 100 mg capsule 100 mg PO BID 7 Days Qty: 14 0RF amoxicillin-pot clavulanate 875-125 mg tablet 1 tab PO BID 5 Days Qty: 10 0RF albuterol sulfate 90 mcg/actuation HFA aerosol inhaler 2 puff inhalation Q4-6H PRN (Reason: shortness of breath or wheezing) 5 Days Qty: 8.5 0RF magnesium hydroxide [Milk of Magnesia] 400 mg/5 mL suspension 30 ml PO BEDTIME lorazepam 2 mg tablet 1 tab PO DAILY PRN (Reason: Anxiety) Rx Instructions: PRE MED FOR DENTAL APPOINTMENTS bacitracin zinc 500 unit/gram Ointment 1 appl TOPICAL QID polyethylene glycol 3350 [Miralax] 17 gram/dose Powder 17 g PO DAILY@1700 Culturelle 10 billion cell Capsule 1 cap PO DAILY amlodipine 5 mg Tablet 5 mg PO DAILY 30 Days Qty: 30 0RF Protocol: Hold for SBP< HOLD for SBP < : 90 dexamethasone 6 mg tablet 6 mg PO DAILY Qty: 4 0RF amoxicillin-pot clavulanate 500-125 mg tablet 1 tab PO BID Qty: 6 0RF multivitamin with folic acid [Thera] 400 mcg tablet 1 tab PO BEDTIME omeprazole 40 mg capsule,delayed release(DR/EC) 40 mg PO DAILY lactulose 10 gram/15 mL solution 30 ml PO BEDTIME loperamide 2 mg capsule 2 mg PO QID PRN (Reason: Diarrhea) loratadine 10 mg tablet 10 mg PO DAILY PRN (Reason: Allergy Symptoms) finasteride 5 mg tablet 5 mg PO DAILY 90 Days Qty: 90 3RF tamsulosin 0.4 mg capsule 0.4 mg PO BEDTIME 90 Days Qty: 90 3RF Referrals: Brandon Tovar MD [Primary Care Provider] -
[2023-05-08 03:44] LABS: COVID-19 Test Negative (Negative); IDNOW Serial# 6674DD1D
--- NOTE | 2023-05-08 03:45 | PC.NURSE ---
Straight cath performed, 350ml of dark cloudy urine noted in collection bag. Pt tolerated well. Urine sample sent to the lab.
[2023-05-08 04:10] LABS: Appearance Urine Cloudy; Color Urine Yellow; Glucose Urine UA Negative (Negative); Leukocyte Esterase Urine Moderate (2+) (Negative); Nitrite Urine Positive (Negative); Specific Gravity - Urine 1.015 (1.005-1.025); UMIC TRIGGER UACC YES; Urine Blood Trace (Negative); Urine Ketones Negative (Negative); Urine Protein 30 (1+) mg/dL (Neg-Trace)
[2023-05-08 04:12] VITALS: BP 101/62; PULSE 89; RESP 14; TEMP 38; O2SAT 97
[2023-05-08 04:20] LABS: Bacteria Urine 4+ (None Seen); Hyaline Casts Urine 0-2 /LPF (0-2); Squamous Epithelial Cell Urine 0-2 /HPF (0-2); UACC Culture Trigger YES; WBC Clumps Urine Present; WBC Urine >50 /HPF (0-5)
== END 2023-05-08 05:57 | disposition other institution (70) ==
PROVIDERS: Emergency Provider Student in an Organized Health Care Education/Training Program; PCP Internal Medicine
DX: N39.0 Urinary tract infection, site not specified (principal); B96.20 Unspecified Escherichia coli [E. coli] as the cause of diseases classified elsewhere; Z20.822 Contact with and (suspected) exposure to COVID-19; I10 Essential (primary) hypertension; Z79.899 Other long term (current) drug therapy
CPT/HCPCS: 36415; 51798; 71045; 80048; 80076; 81001; 83690; 85025; 87086; 87088; 87186; 87635; 99284

== ENCOUNTER 2023-06-15 11:50 | Outpatient (AMB) | payer MEDICARE, MEDICAID, SELFPAY ==
--- NOTE | 2023-06-15 11:52 | A.OFFVIS_ITS ---
Intake Intake Visit Reasons: UTI? Intake Note: Patient is present for [facility] Medications: Finasteride, Tamsulosin Blood Thinner: none PVR: 0ml's Certified Hyperbaric Technologist Required: No Accompanied by: caregiver Allergies azithromycin [AZITHROMYCIN] Allergy (Unknown, Verified 06/15/23 13:22) UNKOWN Macrolide Antibiotics [MACROLIDE ANTIBIOTICS] Allergy (Unknown, Verified 06/15/23 13:22) unknown Macrolides and ketolides Allergy (Unknown, Uncoded 06/15/23 13:22) Unknown Medication List - Last Reconciled 06/15/23 by NIECY Ramos albuterol sulfate 90 mcg/actuation 2 puffs inhalation Q4-6H PRN 5 days amlodipine 5 mg See Protocol PO DAILY 30 days bacitracin zinc 1 appl topical QID dexamethasone 6 mg PO DAILY docusate sodium 200 mg PO DAILY finasteride 5 mg PO DAILY 90 days hydrochlorothiazide 25 mg PO DAILY@0800 Lactobacillus rhamnosus GG (Culturelle) 1 cap PO DAILY lactulose 30 mL PO BEDTIME lisinopril 20 mg PO DAILY loperamide 2 mg PO QID PRN loratadine 10 mg PO DAILY PRN lorazepam 1 tab PO DAILY PRN magnesium hydroxide (Milk of Magnesia) 30 mL PO BEDTIME multivitamin with folic acid 400 mcg (Thera) 1 tab PO BEDTIME omeprazole 40 mg PO DAILY polyethylene glycol 3350 (Miralax) 17 grams PO DAILY@1700 pravastatin 40 mg PO BEDTIME tamsulosin 0.4 mg PO BEDTIME 90 days HPI HPI Comments History of Present Illness Details Wilfredo is a very pleasant 72 year old male patient of Dr. Tovar. He has a past medical history of Bustamante syndrome, BPH, GERD, hard of hearing, hypertension, and nonverbal learning disorder. He presents to the office today for a follow-up of his recent urinary tract infection. Of note, patient was seen approximately approximately [address] Arriaga for a follow-up of his lower urinary tract symptoms in variable PSA. Patient is nonverbal and presents to the office today with his caregiver. Caregiver reports patient has since finished antibiotic therapy for urinary tract infection and has been doing much better. Caregiver reports patients UTI symptoms presented with increase in moaning, patient was noting to strain with urination, and had the chills. She states patient seeked emergency room care approximately 1 month ago at which time he was treated for a urinary tract infection. She reports just days after initiation of antibiotic therapy patient resumed to baseline behavior and has been doing very well since. In review of patient's Mar from longterm it appears patient is compliant with finasteride and flomax daily as prescribed. In office urinalysis results reviewed with the caregiver today. PVR 0 mL. Caregiver otherwise offers no other issues or concerns at this time. PREVIOUS OFFICE NOTE: PSA slight rise Urinary control maintained on combination finasteride, Flomax and oxybutynin Does need prompted voiding No nocturia Continue surveillance Family understands high likelihood that he has prostate cancer given advancing PSA with finasteride Lower urinary tract symptoms Baseline BPH and urge incontinence Current medication Flomax and Ditropan, finasteride Has been stable for many years PSA has been variable ranging in the 5-6 range Prior discussion with sister who is guardian regarding biopsy. She does not want to proceed PSA 11/19 5.2, 04/20 6.5, 08/20 2.7, 02/19 2.7, 02/20 5.0 Therapeutic plan - continue medication - continue PSA surveillance PFSH Medical History Barretts syndrome BPH (benign prostatic hyperplasia) GERD (gastroesophageal reflux disease) [place] (hard of hearing) HTN (hypertension) Non-verbal learning disorder Social History Household Members: Unknown / Unable to assess Housing: Assisted Living Facility Unable to assess alcohol history related to: Unable to respond and Unknown Patient Tobacco Use Status: Tobacco use Unknown service: No Current occupational status: disabled Review of Systems Const Reports as per HPI Eyes Reports no additional complaints ENT Reports no additional complaints Card Reports as per HPI Resp Reports no additional complaints GI Reports as per HPI Reports as per HPI Musc Reports as per HPI Neuro Reports as per HPI Psych Reports no additional complaints Endo Reports no additional complaints Physical Exam Const General: cooperative, comfortable, no acute distress, well developed, alert and awake Orientation/consciousness: oriented to person Limitations: no limitations HEENT Head: Yes normal to inspection Eyes General: appearance normal, both eyes and all related structures Neck Neck: Yes normal visual inspection and Yes trachea midline Resp Effort & Inspection: normal respiratory effort Cardio Rate: regular rate GI Inspection: Yes normal to inspection General: Yes no CVA tenderness Back/Spine/Pelvis Back: no CVA tenderness Neuro General: oriented to person Extrem General: Yes normal to inspection Psych Speech and movement: Other speech and movement exam findings present (Psych) (non verbal ) Attitude: cooperative Insight: Limited insight present (Psych) Judgement: Limited judgement present (Psych) Office Procedures Post Void Residual Post Residual Void Post Void Residual (PVR): 0 [id number] Void Residual by ultrasound Results AMB Urinalysis, Automated UA Leukoctes 15 Martha/uL Last Edit by [employer] on 06/15/23 12:21 UA Nitrite Negative Last Edit by [employer] on 06/15/23 12:21 UA Urobilinogen 0.2 mg/dL Last Edit by [employer] on 06/15/23 12:21 UA Protein 0 mg/dL Last Edit by [employer] on 06/15/23 12:21 UA pH 8.0 Last Edit by [employer] on 06/15/23 12:21 UA Blood 0 Morgan/uL Last Edit by [employer] on 06/15/23 12:21 UA Specific Fate 1.010 Last Edit by [employer] on 06/15/23 12:21 UA Ketone Negative Last Edit by [employer] on 06/15/23 12:21 UA Bilirubin 0 mg/dL Last Edit by [employer] on 06/15/23 12:21 UA Glucose 0 mg/dL Last Edit by [employer] on 06/15/23 12:21 Results Reviewed Results Reviewed: Laboratory Last Values Urine pH (Auto) 8.0 06/15/23 11:55 Specific Fate (Auto) 1.010 06/15/23 11:55 Urine Protein (Auto) 0 mg/dL 06/15/23 11:55 Glucose (UA)(Auto) 0 mg/dL 06/15/23 11:55 Urine Ketones (Auto) Negative 06/15/23 11:55 Urine Blood (Auto) 0 Morgan/uL 06/15/23 11:55 Urine Nitrite (Auto) Negative 06/15/23 11:55 Urine Bilirubin (Auto) 0 mg/dL 06/15/23 11:55 Urine Urobilinogen (Auto) 0.2 mg/dL 06/15/23 11:55 Leukocyte Esterase (Auto) 15 Martha/uL 06/15/23 11:55 Assessment & Plan Assessment & Plan (1) Acute UTI: Code(s): N39.0 - Urinary tract infection, site not specified (2) Elevated PSA: Code(s): R97.20 - Elevated prostate specific antigen [PSA] (3) Lower urinary tract symptoms due to benign prostatic hyperplasia: Code(s): N40.1 - Benign prostatic hyperplasia with lower urinary tract symptoms Plan In office urinalysis results reviewed with the patient and his caregiver today. Patient has since completed antibiotic therapy as prescribed by ER physician. Discussed at length potential causes for urinary tract infections. Discussed, educated, instructed on the importance of drinking plenty of water daily discussed obtaining retroperitoneal ultrasound for further assessment evaluation. Continue finasteride and Flomax as ordered. Will obtain PSA Patient noted with rising PSA however family understands high likelihood that he has prostate cancer given advancing PSA with finasteride Follow-up in 1-2 months with imaging and lab to be completed prior; or sooner with any issues, concerns, and or questions. Orders: Orders PSA,Total (Free>4and<10) Today E11.69 - Type 2 diabetes mellitus with other specified complication, N52.1 - Erectile dysfunction due to diseases classified elsewhere US retroperitoneal comp Today N39.0 - Urinary tract infection, site not specified AMB Urinalysis Automated Today Z13.9 - Encounter for screening, unspecified AMB Post Void Residual by ultrasound Today R35.1 - Nocturia Patient Instructions: The patient had an opportunity to ask questions regarding the treatment plan. All questions were answered. Physical exam, labs, and imaging were discussed and reviewed in detail. As well as risks, benefits, and discussion of treatment choices. No major barriers to understanding were identified. The patient expressed understanding and agreement with the above treatment plan. The patient was made aware they should contact our office by phone for worsening of their current condition, the appearance of new symptoms, or with any questions or concerns. Compliance is encouraged with any medications and follow up testing that is ordered. It is a privilege to be allowed the opportunity to participate in? your urological care.? Again, if you have any questions or concerns If you have any questions or concerns please do not hesitate to contact me. The office is [phone]. This note is constructed using voice recognition software. While every effort has been made to ensure accuracy butadiene convertor operator errors may have been included. Yours sincerely, DELON Ramos-OPAL Coding Level of Care Code Est Pt Level 3 (11016) Diagnoses Acute UTI N39.0 Elevated PSA R97.20 Lower urinary tract symptoms due to benign prostatic hyperplasia N40.1 CPT Codes Post Residual Void - PVR CPT Code: 51731-Gpqx Void Residual by ultrasound ([id number])
--- OUTSIDE RECORDS SUMMARY | 2023-06-15 11:52 | XMS_ITS | Continuity of Care Document ---
Author Name Unknown Organization [facility] Address [address] [place] [address]- Care Team Providers Care Animal Ride Manager Name Role Phone Brandon Freeman MD Primary Care Physician [phone] Encounter [facility] Date(s): 11/25/21 - 12/25/21 [facility] Adult [address] [place] [address]- Allergies, Adverse Reactions, Alerts Substance Reaction Severity Status azithromycin Active macrolide antibiotics Active Dust Active ketolides Active Immunizations Given and Recorded Vaccine Date Status Refusal Reason SARS-CoV-2 (COVID-19) mRNA BNT-162b2 vac 12/05/20 Recorded SARS-CoV-2 (COVID-19) mRNA BNT-162b2 vac 11/10/20 Recorded Influenza Virus Vaccine (oldterm) 08/31/20 Recorde d Influenza Virus Vaccine (oldterm) 1 07/18/09 Given Influenza Virus Vaccine (oldterm) 2 09/02/07 Given influenza virus vaccine, inactivated 09/19/19 Give n influenza virus vaccine, inactivated 08/28/18 Ayad rded influenza virus vaccine, inactivated 08/01/17 Ayad rded influenza virus vaccine, inactivated 08/07/15 Give n influenza virus vaccine, inactivated 08/02/13 Give n influenza virus vaccine, inactivated 3 07/24/13 Gi stacie influenza virus vaccine, inactivated 4 07/20/12 Gi stacie zoster vaccine, inactivated 12/29/18 Recorded zoster vaccine, inactivated 09/30/18 Recorded pneumococcal 23-valent vaccine 06/28/18 Given pneumococcal 23-valent vaccine 04/08/95 Given pneumococcal 13-valent vaccine 06/24/15 Given Zostavax (oldterm) 05/13/12 Given Tet/diphth/pertussis, acel (oldterm) 09/06/11 Give n Fluarix (oldterm) 6 08/05/11 Given FluLaval (oldterm) 7 08/05/10 Given Influenza Inactive (IM) (oldterm) 8 08/16/08 Given tetanus-diphtheria toxoids (Td) 04/08/02 Given Not Given Vaccine Date Status Refusal Reason influenza virus vaccine, inactivated 5 12/17/15 No t Given Parent Or Guardian Refuses 1Admin Note: given by lisy doc by tyler 2Admin Note: given in clinic 3Admin Note: FLU CLINIC 4Admin Note: VIS GIVEN 5Admin Note: FLU CLINIC 6Admin Note: [employer] [facility] [place] [phone] given 7Admin Note: given in clinic 8Result Comment: Pt. already received on 08/07/2015 Medications bacitracin zinc 500 units/g topical ointment See Instructions, APPLY SMALL AMOUNT TOPICALLY TO SUPERFICIAL WOUNDS 4 TIMES A DAY NEEDED AN ANTIBACTERIAL / CALL MD IF USING FOR MORE THAN 7 DAYS, # 1 Gm, 11 Refills, Acute, [facility], 7, APPLY SMALL AMOUNT TOPICALLY TO SUPERFICIAL WOUNDS... Start Date: 12/16/20 Status: Ordered BED RAILS BED RAILS, See Instructions, # 1 each, Refills 0, Tot. Refills 0, Maintenance, TO prevent falls, 03/09/18 12:44:39 EDT, Compound Start Date: 03/09/18 Status: Ordered bisacodyl 10 mg rectal suppository See Instructions, INSERT 1 SUPPOSITORY INTO RECTUM 8PM ON 4TH DAY IF NO B.M. AFTER MILK OF MAG FOR CONSTIPATION, # 7 supp, 11 Refills, [facility], 175.2, cm, 07/20/21 10:29:00 EDT, Height Start Date: 11/24/21 Status: Ordered chlorhexidine topical 0.12% liquid 15 mL = 0.018 Gm, By Mouth, 2 times a day, RINSE 1/2 OZ FOR 30 SECONDS AFTER BREAKFAST & BEFOREBEDTIME/EXPECTORATE, # 480 mL, 3 Refills, Maintenance, 10/26/18 9:26:16 EST, Liquid, PER DR FREEMAN, 15mL By Mouth 2 times a day,Instr:RINSE 1/2 OZ FOR 30 SEC... Start Date: 10/26/18 Status: Ordered [employer] oral capsule 1 capsule, By Mouth, Daily, FOR INTESTINAL HEALTH., # 30 capsule, 11 Refills, [facility], 30, TAKE 1 CAPSULE BY MOUTH DAILY FOR INTESTINAL HEALTH, 175.2, cm, 07/20/21 10:29:00 EDT, Height Start Date: 07/23/21 Status: Ordered diazepam 10 mg oral tablet See Instructions, PRN, 1 tablet By Mouth 2 hour prior to medical appointments, # 1 tablet, Refills 5, Tot. Refills 5, Maintenance, for anxiety, 07/20/21 10:26:00 EDT, Instructions Replace Required Details, Route to Pharmacy Electronically, [facility]... Start Date: 07/20/21 Status: Ordered Disposable Enema 7 g-19 g rectal enema See Instructions, ONE ENEMA PER RECTUM DAY 5 WITHOUT BOWEL MOVEMENT / IF NO RESULTS NOTIFY MD / FORCONSTIPATION / IC FLEET ENEMA 7 GM - 19 GM, # 133 mL, 11 Refills, Soft Stop, [facility], 5, ONE ENEMA PER RECTUM DAY 5 WITHOUT BOWEL MOVEMENT / IF... Start Date: 03/11/21 Status: Ordered Ditropan XL 10 mg oral tablet, extended release 10, mg, 1, tablet, By Mouth, Daily, 0, 01/03/07 9:24:09, Print ANNE-MARIE Number, [id number], Constant Indicator Start Date: 01/03/07 Status: Ordered DOK 100 mg oral tablet See Instructions, TAKE 1 TABLET BY MOUTH TWICE DAILY (STOOL SOFTENER EQUIVALENT), # 60 tablet, 5 Refills, [facility], 175.2, cm, 07/20/21 10:29:00 EDT, Height Start Date: 11/03/21 Status: Ordered Eucerin cream Eucerin cream, See Instructions, # 30 application, Refills 11, Tot. Refills 11, Maintenance, Apply to feet daily, 04/04/19 13:16:18 EDT, Compound Start Date: 04/04/19 Status: Ordered Eucerin Plus Intensive Repair lotion 1 applicator, Topically, 2 times a day, Any Eucerin in stock, # 90 mL, 1 Refills, Maintenance, 02/26/19 16:27:06 EDT, 1 applicator Topically 2 times a day,Instr:Any Eucerin in stock Start Date: 02/26/19 Status: Ordered famotidine 20 mg oral tablet See Instructions, TAKE 1 TABLET BY MOUTH TWICE DAILY FOR GERD GENERIC PEPCID, # 60 tablet, Refills 2, Tot. Refills 2, Soft Stop, 04/09/20 16:08:00 EDT, Instructions Replace Required Details, Route toPharmacy Electronically, [facility], 175.2, cm... Start Date: 04/09/20 Status: Ordered fit to pt fit to pt, See Instructions, # 1 units, Refills 0, Tot. Refills 0, Maintenance, rigid cervical collar. Fit to pt., 06/21/18 15:59:47 EDT, Compound Start Date: 06/21/18 Status: Ordered Flomax 0.4 mg oral capsule 0.4, mg, 1, capsule, By Mouth, Daily, 0, 0, 01/03/07 9:24:42, Print ANNE-MARIE Number, [id number], Constant Indicator Start Date: 01/03/07 Status: Ordered hydrochlorothiazide 25 mg oral tablet See Instructions, TAKE 1 TABLET BY MOUTH DAILY IN AM FOR HTN / MONITOR BP / IF SYSTOLIC BP > 160OR DIASTOLIC > 100 OR SYSTOLIC < 90 OR DIASTOLIC < 50 CALL MD, # 30 tablet, Refills 5, Tot. Refills 5, 12/08/21 8:45:00 EST, Instructions Replace Required... Start Date: 12/08/21 Status: Ordered HYDROCORTISONE 1% CREAM 1 Cream HYDROCORTISONE 1% CREAM 1 Cream, See Instructions, # 56.8 Gm, 11 Refills, APPLY A LIGHT APPLICATIONTO EXTERNAL HEMORRHOIDS TWICE DAILY NEEDED, BLEEDING SWELLING, ITCHING / NOTIFY MD IF NOT RESOLVED X 3 DAYS, 175.2, cm, 07/20/21 10:29:00 EDT, Height Start Date: 11/02/21 Status: Ordered hydrocortisone 1% topical cream See Instructions, APPLY TO EXTERNAL HEMMORRHOIDS TWICE DAILY PRN PER DR FREEMAN, # 60 Gm, 11 Refills, Maintenance, 12/11/19 11:11:00 EST, [facility], APPLY TO EXTERNAL HEMMORRHOIDS TWICE DAILY PRN PER DR FREEMAN, 175.2, cm, 10/12/19 8:18:00 EST, Height,... Start Date: 12/11/19 Status: Ordered ibuprofen 400 mg oral tablet 400 mg, 1, tablet, By Mouth, 3 times a day, PRN, # 30 tablet, Refills 1, Tot. Refills 1, Maintenance, as needed for pain, 12/25/18 11:23:03 EST, Route to Pharmacy Electronically, [id number], [facility] Start Date: 12/25/18 Status: Ordered lactulose 10 gm/15 ml oral syrup = 20 Gm, By Mouth, Daily at bedtime, GIVE WITH., # 946 mL, 11 Refills, [facility], 31, TWO TABLESPOONFULS BY MOUTH DAILY AT BEDTIME FOR CONSTIPATION / GIVE WITH LIQUIDS JUICE/WATER / 2 TBSP = 30ML DOSE = 20 GRAMS, 175.2, cm, 07/20/21 10:29:00 ED... Start Date: 08/25/21 Status: Ordered lisinopril 20 mg oral tablet See Instructions, TAKE 1 TABLET BY MOUTH DAILY IN THE AM FOR HTN / CALL MD IF SBP>160 OR DBP>100 OR SBP<90 OR DBP<50, # 30 tablet, Refills 5, Instructions Replace Required Details, Route to Pharmacy Electronically, [facility], 175.2, cm, 07/20/21... Start Date: 08/04/21 Status: Ordered loratadine 10 mg oral tablet 1, tablet, By Mouth, Daily, PRN, # 30 tablet, Refills 11, NEEDED FOR ALLERGY SYMPTOMS WATERY, ITCHY RED EYES, SNEEZING FOR ALLERGIC RHINITIS, Route to Pharmacy Electronically, [facility], 175.2, cm, 07/20/21 10:29:00 EDT, Height Start Date: 11/10/21 Status: Ordered Milk of Magnesia 8% oral suspension 30 mL, By Mouth, Daily at bedtime, FOR CONSTIPATION ZPOQ=0456 MG., # 900 mL, 5 Refills, [facility], 175.2, cm, 07/20/21 10:29:00 EDT, Height Start Date: 11/24/21 Status: Ordered omeprazole 40 mg oral enteric coated capsule See Instructions, TAKE 1 CAPSULE BY MOUTH DAILY FOR GERD, # 30 capsule, 2 Refills, [facility],175.2, cm, 07/20/21 10:29:00 EDT, Height Start Date: 10/28/21 Status: Ordered polyethylene glycol 3350 oral powder for reconstitution See Instructions, MIX 17GM WITH 8 OUNCES OF WATER OR JUICE DAILY AT 5PM FOR CONSTIPATION (POLYETHYLENE GLYCOL), # 510 Gm, 11 Refills, [facility], 30, MIX 17GM WITH 8 OUNCES OF WATER OR JUICE DAILY AT 5PM FOR CONSTIPATION (POLYETHYLENE GLYCOL), 17... Start Date: 09/22/21 Status: Ordered pravastatin 40 mg oral tablet See Instructions, TAKE 1 TABLET BY MOUTH DAILY IN THE PM FOR HYPERLIPIDEMIA, # 30 tablet, 5 Refills, [facility], 175.2, cm, 07/20/21 10:29:00 EDT, Height Start Date: 11/09/21 Status: Ordered Robafen 100 mg/5 ml oral liquid 10 mL, By Mouth, 4 times a day, PRN NEEDED FOR COUGH/NOTIFY MD IF NO RELIEF AFTER 48 HRS / DOSE =, GUAIFENESIN (TUSSIN MUCUS-CONGEST 100MG/5ML., # 240 mL, 4 Refills, Acute 11/25/22 12:02:00 EST, 11/25/21 12:02:00 EST, [facility], 175.2, cm, 09... Start Date: 11/25/21 Stop Date: 11/25/22 Status: Ordered Shingrix intramuscular injection 0.5 mL, Intramuscular, Once, # 0.5 mL, 1 Refills, Soft Stop, 06/28/18 10:24:17 EDT Start Date: 06/28/18 Status: Ordered thera multivitamin thera multivitamin, See Instructions, # 30 tablet, Refills 5, Tot. Refills 5, Maintenance, po qd, 04/30/21 11:52:00 EDT, Compound, 175.2, cm, 11/28/20 7:21:00 EST, Height Start Date: 04/30/21 Status: Ordered Thera oral tablet See Instructions, TAKE 1 TABLET BY MOUTH DAILY @ 9PM, VITAMIN SUPPLEMENT, # 30 tablet, 5 Refills, [facility], 30, TAKE 1 TABLET BY MOUTH DAILY @ 9PM, VITAMIN SUPPLEMENT, 175.2, cm, 07/20/21 10:29:00 EDT, Height Start Date: 10/28/21 Status: Ordered Problem List Condition Effective Dates Status Health Status Inform ant Bustamante's Esophagus(Confirme d) 1, 2, 3, 4 Active Basal cell carcinoma(Confirmed) Active BPH (benign prostatic hyperplasia)(Confirmed) Active Closed fracture of cervical spine(Confirmed) 5 Active Constipation(Confirmed) 6 Active Deep vein thrombosis(Confirmed) Active Dysphagia(Confirmed) Active Gastroesophageal reflux dise ase with hiatal hernia(Confirmed) Active Hearing loss(Confirmed) Active History of colonoscopy(Confirmed) 7, 8 Active History of fall(Confirmed) Active Hx of mental retardation(Confirmed) Active Hypercholesterolemia(Confirmed) Active Hypertension(Confirmed) Active Intermittent vomiting(Confirmed) Active Obesity (BMI 30-39.9)(Confirmed) Active Raynaud's phenomenon(Confirmed) Active UI (urinary incontinence)(Confirmed) Active 93198; repeat 202015; repeat 2018 3egd 2012 barretts, repeat 2014 4egd 2010 positive barretts repeat 2011 5C2 6colonoscopy 2006 repeat 2016 7repeat 2024 30032 Social History Social History Type Response Smoking Status Never smoker entered on: 06/25/16 Sex
--- OUTSIDE RECORDS SUMMARY | 2023-06-15 11:52 | XMS_ITS | Continuity of Care Document ---
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 Name Role Phone Brandon Freeman MD Primary Care Physician [phone] [facility] - 03/03/23 [facility] Adult [address] [place] [address]- Attending Physician: Admtr, Ar8 Allergies, Adverse Reactions, Alerts Substance Reaction Severity Status azithromycin Active macrolide antibiotics Active ketolides Active Dust Active Immunizations Given and Recorded Vaccine Date Status Refusal Reason [id number] 12y+ bivalent booster vax 07/22/22 Recorded tetanus-diphtheria toxoids (Td) 03/17/22 Given tetanus-diphtheria toxoids (Td) 04/08/02 Given tetanus/diphtheria/pertussis, acel(Tdap) 09/30/21 Recorded influenza virus vaccine, inactivated 08/17/21 Ayad rded influenza virus vaccine, inactivated 09/19/19 Give n influenza virus vaccine, inactivated 08/28/18 Ayad rded influenza virus vaccine, inactivated 08/01/17 Ayad rded influenza virus vaccine, inactivated 08/07/15 Give n influenza virus vaccine, inactivated 08/02/13 Give n influenza virus vaccine, inactivated 1 07/24/13 Gi stacie influenza virus vaccine, inactivated 2 07/20/12 Gi stacie SARS-CoV-2 (COVID-19) mRNA BNT-162b2 vac 08/17/21 Recorded SARS-CoV-2 (COVID-19) mRNA BNT-162b2 vac 12/05/20 Recorded SARS-CoV-2 (COVID-19) mRNA BNT-162b2 vac 11/10/20 Recorded Influenza Virus Vaccine (oldterm) 08/31/20 Recorde d Influenza Virus Vaccine (oldterm) 4 07/18/09 Given Influenza Virus Vaccine (oldterm) 5 09/02/07 Given zoster vaccine, inactivated 12/29/18 Recorded zoster vaccine, inactivated 09/30/18 Recorded pneumococcal 23-valent vaccine 06/28/18 Given pneumococcal 23-valent vaccine 04/08/95 Given pneumococcal 13-valent vaccine 06/24/15 Given Zostavax (oldterm) 05/13/12 Given Tet/diphth/pertussis, acel (oldterm) 09/06/11 Give n Fluarix (oldterm) 6 08/05/11 Given FluLaval (oldterm) 7 08/05/10 Given Influenza Inactive (IM) (oldterm) 8 08/16/08 Given Not Given Vaccine Date Status Refusal Reason influenza virus vaccine, inactivated 3 12/17/15 No t Given Parent Or Guardian Refuses 1Admin Note: FLU CLINIC 2Admin Note: VIS GIVEN 3Admin Note: given by lisy doc by tyler 4Admin Note: given in clinic 5Admin Note: FLU CLINIC 6Admin Note: [employer] [facility] VIS [id number] given 7Admin Note: given in clinic 8Result Comment: Pt. already received on 08/07/2015 Medications acetaminophen 325 mg oral tablet 2, tablet, By Mouth, Every 6 hours, PRN, SMFU=[id number]., # 60 tablet, Refills 0, Maintenance, NEEDED FOR FEVER>100.5 OR PAIN SHOWN BY FACIAL GRIMACE NOTIFY MD IF USED >, 11/12/22 9:30:00 EST, Route to Pharmacy Electronically, [facility], 175.2, c... Start Date: 11/12/22 Stop Date: 11/15/22 Status: Ordered bacitracin zinc 500 units/g topical ointment See Instructions, APPLY SMALL AMOUNT TOPICALLY TO SUPERFICIAL WOUNDS 4 TIMES A DAY NEEDED AN ANTIBACTERIAL / CALL MD IF USING FOR MORE THAN 7 DAYS, # 28 Gm, 11 Refills, Maintenance, 11/09/22 15:57:00 EST, [facility], 7, APPLY SMALL AMOUNT T... Start Date: 11/09/22 Status: Ordered BED RAILS BED RAILS, See Instructions, # 1 each, Refills 0, Tot. Refills 0, Maintenance, TO prevent falls, 03/09/18 12:44:39 EDT, Compound Start Date: 03/09/18 Status: Ordered bisacodyl 10 mg rectal suppository See Instructions, INSERT 1 SUPPOSITORY INTO RECTUM 8PM ON 4TH DAY IF NO B.M. AFTER MILK OF MAG FOR CONSTIPATION, # 7 supp, 11 Refills, Maintenance, 12/16/22 13:35:00 EST, [facility], 175.2, cm, 07/27/22 11:37:00 EDT, Height Start Date: 12/16/22 Status: Ordered chlorhexidine topical 0.12% liquid 15 mL = 0.018 Gm, By Mouth, 2 times a day, RINSE 1/2 OZ FOR 30 SECONDS AFTER BREAKFAST & BEFOREBEDTIME/EXPECTORATE, # 480 mL, 3 Refills, Maintenance, 10/26/18 9:26:16 EST, Liquid, PER DR FREEMAN, 15mL By Mouth 2 times a day,Instr:RINSE 1/2 OZ FOR 30 SEC... Start Date: 10/26/18 Status: Ordered [facility] oral capsule 1 capsule, By Mouth, Daily, FOR INTESTINAL HEALTH., # 30 capsule, 11 Refills, Maintenance, 07/29/2211:36:00 EDT, [facility], 30, 1 capsule By Mouth Daily,Instr:FOR INTESTINAL HEALTH., 175.2, cm, 07/27/22 11:37:00 EDT, Height Start Date: 07/29/22 Status: Ordered diazepam 10 mg oral tablet See Instructions, TAKE 1 TABLET BY MOUTH TWO HOURS PRIOR TO APPOINTMENT/PROCEDURE (EYE AND PODIATRYONLY) FOR ANXIETY, # 1 tablet, Refills 5, Tot. Refills 5, Maintenance, 10/21/22 15:45:00 EST, Instructions Replace Required Details, Route to Pharmacy... Start Date: 10/21/22 Status: Ordered Disposable Enema 7 g-19 g rectal enema See Instructions, ONE ENEMA PER RECTUM DAY 5 WITHOUT BOWEL MOVEMENT / IF NO RESULTS NOTIFY MD / FORCONSTIPATION / IC FLEET ENEMA 7 GM - 19 GM, # 133 mL, 11 Refills, [facility], 5, ONE ENEMA PERRECTUM DAY 5 WITHOUT BOWEL MOVEMENT / IF NO RESULTS... Start Date: 03/16/22 Status: Ordered Ditropan XL 10 mg oral tablet, extended release 10, mg, 1, tablet, By Mouth, Daily, 0, 01/03/07 9:24:09, Print ANNE-MARIE Number, [id number], Constant Indicator Start Date: 01/03/07 Status: Ordered DOK 100 mg oral tablet See Instructions, TAKE 1 TABLET BY MOUTH TWICE DAILY (AM AND PM) (STOOL SOFTENER EQUIVALENT), # 60 tablet, 5 Refills, Maintenance, 02/02/23 15:38:00 EDT, [facility], 175.2, cm, 02/01/23 15:11:00EDT, Height Start Date: 02/02/23 Status: Ordered Eucerin cream Eucerin cream, See [...] Instructions Replace Required Details, Route toPharmacy Electronically, [facility], 175.2, cm... Start Date: 04/09/20 Status: Ordered fit to pt fit to pt, See Instructions, # 1 units, Refills 0, Tot. Refills 0, Maintenance, rigid cervical collar. Fit to pt., 06/21/18 15:59:47 EDT, Compound Start Date: 06/21/18 Status: Ordered Flomax 0.4 mg oral capsule 0.4, mg, 1, capsule, By Mouth, Daily, 0, 0, 01/03/07 9:24:42, Print ANNE-MARIE Number, [id number], Constant Indicator Start Date: 01/03/07 Status: Ordered hydrochlorothiazide 25 mg oral tablet See Instructions, TAKE 1 TAB BY MOUTH DAILY IN AM FOR HTN/MONITOR BP/IF SYSTOLIC MORE THAN 160, DIASTOLIC MORE THAN 100, SYSTOLIC LESS THAN 90, OR DIASTOLIC LESS THAN 50 CALLMD, # 30 tablet, Refills 5, Maintenance, 09/16/22 6:55:00 EST, Instructions R... Start Date: 09/16/22 Status: Ordered HYDROCORTISONE 1% CREAM 1 Cream [...] Gm, 11 Refills, Maintenance, 12/11/19 11:11:00 EST, [facility], APPLY TO EXTERNAL HEMMORRHOIDS TWICE DAILY PRN PER DR FREEMAN, 175.2, cm, 10/12/19 8:18:00 EST, Height,... Start Date: 12/11/19 Status: Ordered ibuprofen 400 mg oral tablet 400 mg, 1, tablet, By Mouth, 3 times a day, PRN, # 30 tablet, Refills 1, Tot. Refills 1, Maintenance, as needed for pain, 12/25/18 11:23:03 EST, Route to Pharmacy Electronically, [id number], [facility] Start Date: 12/25/18 Status: Ordered lactulose 10 gm/15 ml oral syrup = 20 Gm, By Mouth, Daily at bedtime, # 946 mL, 11 Refills, Maintenance, 09/01/22 7:18:00 EDT, [facility], 31, 20 Gm By Mouth Daily at bedtime, 175.2, cm, 07/27/22 11:37:00 EDT, Height Start Date: 09/01/22 Stop Date: 09/01/23 Status: Ordered lisinopril 20 mg oral tablet See Instructions, TAKE 1 TABLET BY MOUTH DAILY IN THE AM FOR HTN / CALL MD IF SBP GREATER THAN 160 OR DBP GREATER THAN 100 OR SBP LESS THAN 90 OR DBP LESS THAN 50, # 30 tablet, Refills 5, Maintenance, 11/09/22 15:32:00 EST, Instructions Replace Requir... Start Date: 11/09/22 Status: Ordered loratadine 10 mg oral tablet 1, tablet, By Mouth, Daily, PRN, # 30 tablet, Refills 11, NEEDED FOR ALLERGY SYMPTOMS WATERY, ITCHY RED EYES, SNEEZING FOR ALLERGIC RHINITIS, Route to Pharmacy Electronically, [facility], 175.2, cm, 07/20/21 10:29:00 EDT, Height Start Date: 11/10/21 Status: Ordered Milk of Magnesia 8% oral suspension 30 mL, By Mouth, Daily at bedtime, FOR CONSTIPATION TEQR=8756 MG., # 900 mL, 5 Refills, Maintenance, 07/01/22 13:24:00 EDT, [facility], 175.2, cm, 04/15/22 9:44:00 EDT, Height Start Date: 07/01/22 Status: Ordered omeprazole 40 mg oral enteric coated capsule 1 capsule, By Mouth, Daily in AM, # 30 capsule, 5 Refills, Maintenance, 02/01/23 7:37:00 EDT, [facility], 175.2, cm, 07/27/22 11:37:00 EDT, Height Start Date: 02/01/23 Status: Ordered polyethylene glycol 3350 oral powder for reconstitution See Instructions, MIX 17GM WITH 8 OUNCES OF WATER OR JUICE DAILY AT 5PM FOR CONSTIPATION (POLYETHYLENE GLYCOL), # 510 Gm, 11 Refills, Physician Stop 10/07/23 11:17:00 EST, 10/07/22 11:17:00 EST, [facility], 30, MIX 17GM WITH 8 OUNCES OF WATER OR... Start Date: 10/07/22 Stop Date: 10/07/23 Status: Ordered pravastatin 40 mg oral tablet See Instructions, TAKE 1 TABLET BY MOUTH DAILY IN THE PM FOR HYPERLIPIDEMIA, # 30 tablet, 5 Refills, Maintenance, 11/18/22 15:41:00 EST, [facility], 175.2, cm, 07/27/22 11:37:00 EDT, Height Start Date: 11/18/22 Status: Ordered Shingrix intramuscular injection 0.5 mL, Intramuscular, Once, # 0.5 mL, 1 Refills, Soft Stop, 06/28/18 10:24:17 EDT Start Date: 06/28/18 Status: Ordered terbinafine 1% topical cream 1 application, Topically, 2 times a day, # 30 Gm, 1 Refills, Maintenance, 05/11/22 14:45:00 EDT, Cream, [facility], Partial fill upon patient request if the prescription is for a schedule II opioid drug., 1 application Topically 2 times a day,x14... Start Date: 05/11/22 Stop Date: 06/08/22 Status: Ordered thera multivitamin thera multivitamin, See Instructions, # 30 tablet, Refills 5, Tot. Refills 5, Maintenance, po qd, 04/30/21 11:52:00 EDT, Compound, 175.2, cm, 11/28/20 7:21:00 EST, Height Start Date: 04/30/21 Status: Ordered Thera oral tablet See Instructions, TAKE 1 TABLET BY MOUTH DAILY @ 9PM, VITAMIN SUPPLEMENT, # 30 tablet, 5 Refills, 10/05/22 11:07:00 EST, [facility], 30, TAKE 1 TABLET BY MOUTH DAILY @ 9PM, VITAMIN SUPPLEMENT, 175.2, cm, 07/27/22 11:37:00 EDT, Height Start Date: 10/05/22 Status: Ordered Problem List Condition Confirmation Course Effective Dates Status Health Status Informant Bustamante's Esophagus 1, 2, 3, 4 Confirmed Active Basal cell carcinoma Confirmed Active BPH (benign prostatic hyperplasia) Confirmed Active Closed fracture of cervical spine 5 Confirmed Active Constipation 6 Confirmed Active Deep vein thrombosis Confirmed Active Dysphagia Confirmed Active Gastroesophageal reflux disease with hiatal hernia Confirmed Active Hearing loss Confirmed Active History of colonoscopy 7, 8 Confirmed Active History of fall Confirmed Active Hx of mental retardation Confirmed Active Hypercholesterolemia Confirmed Active Hypertension Confirmed Active Intermittent vomiting Confirmed Active Obesity (BMI 30-39.9) Confirmed Active Raynaud's phenomenon Confirmed Active UI (urinary incontinence) Confirmed Active 33604; repeat 202015; repeat 2017 3egd 2012 barretts, repeat 2014 4egd 2010 positive barretts repeat 2011 5C2 6colonoscopy 2006 nl repeat 2016 7repeat 2024 34879 Social History Social History Type Response Smoking Status Never smoker entered on: 06/25/16 Sex Cardiology * Brigette Young: PERFORM Event Display: Cardiovascular Results Scanned Authored Date: [id number] * Brigette Young: PERFORM Event Display: Cardiovascular Results Scanned Authored Date: [id number] * Jacy Mills: PERFORM Event Display: Cardiovascular Results Scanned Authored Date: [id number] Laboratory * Event Display: Non BH Lab Results Authored Date: * Event Display: Non BH Lab Results Authored Date: * Event Display: Non BH Lab Results Authored Date: * Event Display: Non BH Lab Results Authored Date: * Event Display: Non BH Lab Results Authored Date: * Event Display: Non BH Lab Results Authored Date: Radiology * Event Display: Ultrasound Lower Extremity, Non-BH Authored Date: * Brigette Young: PERFORM Event Display: Radiology Results Scanned Authored Date: Patient Care team information Care Team Personnel Name: Hannah Roque RN Position: [facility] RN Member Role: Primary Care Nurse Name: Reggie Godinez RN Position: [facility] RN Member Role: Primary Care Nurse Name: Christiane Cedillo RN Position: [facility] RN Member Role: Primary Care Nurse Name: Brandon Freeman MD Position: [facility] Primary Care Physician Member Role: PCP Address: Address: [address] [place] [phone]- [place] Name: Janeen Hoskins RN Position: [facility] RN Member Role: Primary Care Nurse Name: Cydney Mckinney RN Position: [facility] RN Member Role: Primary Care Nurse Name: Frantz Mi III, RN Position: [facility] RN Member Role: Primary Care Nurse Name: Cate Martel NP Position: Reference Physician Member Role: Primary Care Nurse Address: Address: [address] [place] [phone]- [place] Name: Fay Morton RN Position: [facility] RN Member Role: Primary Care Nurse Name: Massiel uL RN Position: [facility] RN Member Role: Primary Care Nurse Name: Lurdes Mujica RN Position: [facility] RN Member Role: Primary Care Nurse Name: Brandie Horvath RN Position: [facility] Pilot Boat Captain Member Role: Primary Care Nurse Name: Shyam RN, [place] Position: [facility] RN Member Role: Primary Care Nurse Care Team Related Persons Name: JOHAN PERKINS Name: DAWOOD DE LOS SANTOS Address: home [address] [place] [address] Name: JENNIFER JUAREZ Address: home [address] [place] [id number]
--- OUTSIDE RECORDS SUMMARY | 2023-06-15 11:52 | XMS_ITS | Continuity of Care Document ---
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 VIS [id number] given 7Admin Note: given in clinic 8Result Comment: Pt. already received on 08/07/2015 Medications acetaminophen 325 mg oral tablet 2, tablet, By Mouth, Every 6 hours, PRN, [id number]., # 60 tablet, Refills 0, Maintenance, NEEDED FOR FEVER>100.5 OR PAIN SHOWN BY FACIAL GRIMACE NOTIFY MD IF USED >, 11/12/22 9:30:00 EST, Route to Pharmacy Electronically, [facility], 175.2, c... Start Date: 11/12/22 Stop Date: 11/15/22 Status: Ordered bacitracin zinc 500 units/g topical ointment See Instructions, APPLY SMALL AMOUNT TOPICALLY TO SUPERFICIAL WOUNDS 4 TIMES A DAY NEEDED AN ANTIBACTERIAL / CALL MD IF USING FOR MORE THAN 7 DAYS, # 28 Gm, 11 Refills, Maintenance, 11/09/22 15:57:00 EST, [facility], 7, APPLY SMALL AMOUNT T... Start [...] 11 Refills, Maintenance, 12/16/22 13:35:00 EST, [facility], 175.2, cm, 07/27/22 11:37:00 EDT, Height [...] 30 SEC... Start Date: 10/26/18 Status: Ordered [facility] oral capsule 1 capsule, By Mouth, Daily, FOR INTESTINAL HEALTH., # 30 capsule, 11 Refills, Maintenance, 07/29/2211:36:00 EDT, [facility], 30, 1 capsule By Mouth Daily,Instr:FOR [...] 19 GM, # 133 mL, 11 Refills, Physician Stop 04/06/24 13:54:00 EDT, 04/05/23 13:54:00 EDT, [facility], 5, ONE... Start Date: 04/05/23 Stop Date: 04/06/24 Status: Ordered Ditropan XL 10 mg oral tablet, extended release 10, mg, 1, tablet, By Mouth, Daily, 0, 01/03/07 9:24:09, Print ANNE-MARIE Number, [id number], Constant Indicator Start Date: 01/03/07 Status: Ordered DOK 100 mg oral tablet See Instructions, TAKE 1 TABLET BY MOUTH TWICE DAILY (AM AND PM) (STOOL SOFTENER EQUIVALENT), # 60 tablet, 5 Refills, Maintenance, 02/02/23 15:38:00 EDT, [facility], 175.2, cm, 02/01/23 15:11:00EDT, Height Start [...] Instructions Replace Required Details, Route toPharmacy Electronically, [facility], 175.2, cm... Start Date: 04/09/20 Status: Ordered fit to pt fit to pt, See Instructions, # 1 units, Refills 0, Tot. Refills 0, Maintenance, rigid cervical collar. Fit to pt., 06/21/18 15:59:47 EDT, Compound Start Date: 06/21/18 Status: Ordered Flomax 0.4 mg oral capsule 0.4, mg, 1, capsule, By Mouth, Daily, 0, 0, 01/03/07 9:24:42, Print ANNE-MARIE Number, [id number], Constant Indicator Start Date: 01/03/07 Status: Ordered hydrochlorothiazide 25 mg oral tablet 1, tablet, By Mouth, Daily in AM, FOR HTN/MONITOR BP/IF SYSTOLIC MORE THAN 160, DIASTOLIC MORE [id number], SYSTOLIC LESS THAN 90, OR DIASTOLIC LESS THAN 50 CALLMD., # 90 tablet, Refills 1, Tot. Refills1, Maintenance, 03/15/23 14:21:00 EDT, [facility]... Start Date: 03/15/23 Status: Ordered HYDROCORTISONE 1% CREAM 1 Cream [...] Gm, 11 Refills, Maintenance, 12/11/19 11:11:00 EST, [facility], APPLY TO EXTERNAL HEMMORRHOIDS TWICE DAILY PRN PER DR FREEMAN, 175.2, cm, 10/12/19 8:18:00 EST, Height,... Start Date: 12/11/19 Status: Ordered ibuprofen 400 mg oral tablet 400 mg, 1, tablet, By Mouth, 3 times a day, PRN, # 30 tablet, Refills 1, Tot. Refills 1, Maintenance, as needed for pain, 12/25/18 11:23:03 EST, Route to Pharmacy Electronically, [id number], [facility] Start Date: 12/25/18 Status: Ordered lactulose 10 gm/15 ml oral syrup = 20 Gm, By Mouth, Daily at bedtime, # 946 mL, 11 Refills, Maintenance, 09/01/22 7:18:00 EDT, [facility], 31, 20 Gm By Mouth Daily at bedtime, 175.2, cm, 07/27/22 11:37:00 EDT, Height Start Date: 09/01/22 Stop Date: 09/01/23 Status: Ordered lisinopril 20 mg oral tablet 1, tablet, By Mouth, Daily in AM, FOR HTN / CALL MD IF SBP GREATER THAN 160 OR DBP GREATER THAN 100OR SBP LESS THAN 90 OR DBP LESS THAN 50., # 30 tablet, Refills 5, Tot. Refills 5, Maintenance, 05/05/23 3:06:00 EDT, Route to Pharmacy Electronically,... Start Date: 05/05/23 Status: Ordered loperamide 2 mg oral capsule 2 mg, 1, capsule, By Mouth, Every 4 hours, FOR DIARRHEA / CALL MD IF USING MORE THAN 48 HRS, # 60 capsule, Refills 2, Tot. Refills 2, Acute 03/08/24 11:09:00 EDT, 03/08/23 11:54:00 EDT, Route to Pharmacy Electronically, [facility], Partial fill u... Start Date: 03/08/23 Stop Date: 03/08/24 Status: Ordered loratadine 10 mg oral tablet 1, tablet, By Mouth, Daily, PRN, # 30 tablet, Refills 11, NEEDED FOR ALLERGY SYMPTOMS WATERY, ITCHY RED EYES, SNEEZING FOR ALLERGIC RHINITIS, Route to Pharmacy Electronically, [facility], 175.2, cm, 07/20/21 10:29:00 EDT, Height Start Date: 11/10/21 Status: Ordered Milk of Magnesia 8% oral suspension 30 mL, By Mouth, Daily at bedtime, FOR CONSTIPATION [id number]=3010 MG., # 900 mL, 5 Refills, Maintenance, 04/04/23 21:00:00 EDT, [facility], 175.2, cm, 02/01/23 15:11:00 EDT, Height Start Date: 04/04/23 Status: Ordered omeprazole 40 mg oral enteric coated capsule 1 capsule, By Mouth, Daily in AM, # 30 capsule, 5 Refills, Maintenance, 02/01/23 7:37:00 EDT, [facility], 175.2, cm, 07/27/22 11:37:00 EDT, Height Start Date: 02/01/23 Status: Ordered polyethylene glycol 3350 oral powder for reconstitution See Instructions, MIX 17GM WITH 8 OUNCES OF WATER OR JUICE DAILY AT 5PM FOR CONSTIPATION (POLYETHYLENE GLYCOL), # 510 Gm, 11 Refills, Physician Stop 10/07/23 11:17:00 EST, 10/07/22 11:17:00 EST, [facility], 30, MIX 17GM WITH 8 OUNCES OF WATER OR... Start Date: 10/07/22 Stop Date: 10/07/23 Status: Ordered pravastatin 40 mg oral tablet See Instructions, TAKE 1 TABLET BY MOUTH DAILY IN THE PM FOR HYPERLIPIDEMIA, # 30 tablet, 5 Refills, Maintenance, 11/18/22 15:41:00 EST, [facility], 175.2, cm, 07/27/22 11:37:00 EDT, Height Start Date: 11/18/22 Status: Ordered Shingrix intramuscular injection 0.5 mL, Intramuscular, Once, # 0.5 mL, 1 Refills, Soft Stop, 06/28/18 10:24:17 EDT Start Date: 06/28/18 Status: Ordered TERBINAFINE 1% CREAM 1 Cream TERBINAFINE 1% CREAM 1 Cream, See Instructions, # 28.4 Gm, 1 Refills, Maintenance, APPLY TO AFFECTED AREA TWICE DAILY NEEDED FOR RASH ON FEET, 03/22/23 16:14:00 EDT, 175.2, cm, 02/01/23 15:11:00 EDT, Height Start Date: 03/22/23 Status: Ordered terbinafine 1% topical cream 1 application, Topically, 2 times a day, # 30 Gm, 1 Refills, Maintenance, 05/11/22 14:45:00 EDT, Cream, [facility], Partial fill upon patient request if [...] Date: 04/30/21 Status: Ordered Thera oral tablet 1 tablet, By Mouth, Daily, @ 9PM, VITAMIN SUPPLEMENT., # 30 tablet, 5 Refills, Maintenance, 04/04/23 21:00:00 EDT, [facility], 30, TAKE 1 TABLET BY MOUTH DAILY @ 9PM, VITAMIN SUPPLEMENT, 175.2, cm, 02/01/23 15:11:00 EDT, Height Start Date: 04/04/23 Status: Ordered Problem List Condition Confirmation Course [...] Confirmed Active UI (urinary incontinence) Confirmed Active 38323; repeat 2020 87779; repeat 2017 3egd 2012 barretts, repeat 2014 4egd 2010 positive barretts repeat 2011 5C2 6colonoscopy 2007 nl repeat 2016 7repeat 2024 39800 Social History Social History Type Response Smoking Status Never smoker entered on: 06/25/16 Sex Patient Care team information Care Team Personnel Name: Hannah Roque RN Position: [facility] RN Member Role: Primary Care Nurse Name: Reggie Godinez RN Position: [facility] RN Member Role: Primary Care Nurse Name: Christiane Cedillo RN Position: [facility] RN Member Role: Primary Care Nurse Name: Brandon Freeman MD Position: [facility] Physician - Primary Care Member Role: PCP Address: Address: [address] [place] [phone]- [place] Name: Janeen Hoskins RN Position: [facility] RN Member Role: Primary Care Nurse Name: Cydney Mckinney RN Position: [facility] RN Member Role: Primary Care Nurse Name: Frantz Mi III, RN Position: [facility] RN Member Role: Primary Care Nurse Name: Cate Martel NP Position: Reference Physician Member Role: Primary Care Nurse Address: Address: [address] [place] [phone]- [place] Name: Fay Morton RN Position: [facility] RN Member Role: Primary Care Nurse Name: Massiel Lu RN Position: [facility] RN Member Role: Primary Care Nurse Name: Lurdes Mujica RN Position: [facility] RN Member Role: Primary Care Nurse Name: Brandie Horvath RN Position: [facility] Hospital Motorcoach Driver Member Role: Primary Care Nurse Name: Claribel Howe RN Position: [facility] RN Member Role: Primary Care Nurse Care Team Related Persons Name: JOHAN PERKINS Name: MAGALI DAWOOD Address: home [address] [place] [id number] Name: JENNIFER JUAREZ Address: home [address] [place] [address]
--- OUTSIDE RECORDS SUMMARY | 2023-06-15 11:52 | XMS_ITS | Continuity of Care Document ---
Author Name Unknown Organization [facility] lt Address [address] [place] [address]- Care Team Providers Care Traffic Recorder Name Role Phone Brandon Freeman MD Primary Care Physician [phone] Encounter [facility] Date(s): 11/06/20 - 12/06/20 [facility] Adult [address] [place] [address]- Allergies, Adverse Reactions, Alerts Substance Reaction Severity Status azithromycin Active macrolide antibiotics Active Dust Active ketolides Active Immunizations Given and Recorded Vaccine Date Status Refusal Reason Influenza Virus Vaccine (oldterm) 08/31/20 Recorde d [...] Guardian Refuses 1Admin Note: given by lisy short by tyler 2Admin Note: given in clinic 3Admin Note: FLU CLINIC 4Admin Note: VIS GIVEN 5Admin Note: FLU CLINIC 6Admin Note: DirectRM [facility] VIS [id number] given 7Admin Note: given in clinic 8Result Comment: Pt. already received on 08/07/2015 Medications bacitracin topical 500 u/gm ointment 1 application, Topically, 4 times a day, PRN superficial wounds, # 30 Gm, 11 Refills, Maintenance, 03/08/19 12:03:32 EDT, Ointment, 1 application Topically 4 times a day,PRN:superficial wounds Start Date: 03/08/19 Status: Ordered BED RAILS BED RAILS, See Instructions, # 1 each, Refills 0, Tot. Refills 0, Maintenance, TO prevent falls, 03/09/18 12:44:39 EDT, Compound Start Date: 03/09/18 Status: Ordered Bisco-Lax 10 mg rectal suppository See Instructions, INSERT 1 SUPPOSITORY INTO RECTUM 8PM ON 4TH DAY IF NO B.M. AFTER MILK OF MAG FOR CONSTIPATION, # 7 supp, 11 Refills, Acute, [facility], 175.2, cm, 10/12/19 8:18:00 EST, Height Start Date: 04/22/20 Status: Ordered chlorhexidine topical 0.12% liquid 15 [...] oral capsule 1 capsule, By Mouth, Daily, for 90 days, FOR INTESTINAL HEALTH., # 90 capsule, 3 Refills, Acute 07/27/21 9:44:00 EDT, 08/01/20 9:44:00 EDT, [facility], 1 capsule By Mouth Daily,x90 days,Instr:FOR INTESTINAL HEALTH., 175.2, cm, 07/09/20 10:27:00 E... Start Date: 08/01/20 Stop Date: 07/27/21 Status: Ordered diazepam 10 mg oral tablet See Instructions, PRN, 1 tablet By Mouth 1 hour prior to eye exam per Dr. Freeman, # 1 tablet, Refills 5, Tot. Refills 5, Maintenance, for anxiety, 11/05/19 10:38:00 EST, Instructions Replace Required Details, Route to Pharmacy Electronically, [facility]... Start Date: 11/05/19 Status: Ordered Ditropan XL 10 mg oral tablet, extended release 10, mg, 1, tablet, By Mouth, Daily, 0, 01/03/07 9:24:09, Print ANNE-MARIE Number, [id number], Constant Indicator Start Date: 01/03/07 Status: Ordered DOK 100 mg oral tablet See Instructions, TAKE 1 TABLET BY MOUTH TWICE DAILY (STOOL SOFTENER EQUIVALENT), # 60 tablet, 5 Refills, Soft Stop, 11/06/20 9:22:00 EST, [facility], 175.2, cm, 07/09/20 10:27:00 EDT, Height Start Date: 11/06/20 Status: Ordered Eucerin cream Eucerin cream, See [...] Instructions Replace Required Details, Route toPharmacy Electronically, [facility], 175.2, cm... Start Date: 04/09/20 Status: Ordered fit to pt fit to pt, See Instructions, # 1 units, Refills 0, Tot. Refills 0, Maintenance, rigid cervical collar. Fit to pt., 06/21/18 15:59:47 EDT, Compound Start Date: 06/21/18 Status: Ordered Fleet Enema 19 gm-7 gm rectal enema 1 each, Rectally, Once, PRN for constipation, 1 per rectum on day 5 without bowel movement, if no results notify M.D., # 135 mL, 11 Refills, Soft Stop, 04/06/19 12:32:30 EDT, Enema, 1 each Rectally Once,PRN:for constipation,Instr:1 per rectum on day 5... Start Date: 04/06/19 Status: Ordered Flomax 0.4 mg oral capsule 0.4, mg, 1, capsule, By Mouth, Daily, 0, 0, 01/03/07 9:24:42, Print ANNE-MARIE Number, [id number], Constant Indicator Start Date: 01/03/07 Status: Ordered hydrochlorothiazide 25 mg oral tablet See Instructions, TAKE 1 TABLET BY MOUTH DAILY IN AM FOR HTN / MONITOR BP / IF SYSTOLIC BP > 160OR DIASTOLIC > 100 OR SYSTOLIC < 90 OR DIASTOLIC < 50 CALL M, # 30 tablet, Refills 5, Tot.Refills 5, Soft Stop, 06/11/20 14:32:00 EDT, Instructions Repla... Start Date: 06/11/20 Status: Ordered hydrocortisone 1% topical cream See Instructions, APPLY TO EXTERNAL HEMMORRHOIDS TWICE DAILY PRN PER DR FREEMAN, # 60 Gm, 11 Refills, Maintenance, 12/11/19 11:11:00 EST, [facility], APPLY TO EXTERNAL HEMMORRHOIDS TWICE DAILY PRN PER DR FREEMAN, 175.2, cm, 10/12/19 8:18:00 EST, Height,... Start Date: 12/11/19 Status: Ordered ibuprofen 400 mg oral tablet 400 mg, 1, tablet, By Mouth, 3 times a day, PRN, # 30 tablet, Refills 1, Tot. Refills 1, Maintenance, as needed for pain, 12/25/18 11:23:03 EST, Route to Pharmacy Electronically, [id number], [facility] Start Date: 12/25/18 Status: Ordered lactulose 10 gm/15 ml oral syrup See Instructions, TWO TABLESPOONFULS BY MOUTH DAILY AT BEDTIME FOR CONSTIPATION / GIVE WITH LIQUIDSJUICE/WATER / 2 TBSP = 30 ML DOSE = 20 GRAMS, # 946 mL, 11 Refills, Soft Stop, 08/15/20 7:20:00 EDT, [facility], TWO TABLESPOONFULS BY MOUTH DAILY... Start Date: 08/15/20 Status: Ordered loratadine 10 mg oral tablet 10 mg, 1, tablet, By Mouth, Daily, PER DR FREEMAN, # 30 tablet, Refills 11, Tot. Refills 11, 02/19/20 9:46:00 EDT, Route to Pharmacy Electronically, [facility], 175.2, cm, 10/12/19 8:18:00 EST, Height, 73.2, kg, 03/05/18 17:34:00 EDT, Dry Weight Start Date: 02/19/20 Status: Ordered Milk of Magnesia 8% oral suspension 30 mL = 2.4 Gm, By Mouth, Daily at bedtime, # 900 mL, 5 Refills, Maintenance, 09/02/20 12:20:00 EST, [facility], 175.2, cm, 07/09/20 10:27:00 EDT, Height, Dry Weight Start Date: 09/02/20 Stop Date: 03/01/21 Status: Ordered omeprazole 40 mg oral enteric coated capsule 1 capsule = 40 mg, By Mouth, Daily, # 30 capsule, 5 Refills, Maintenance, 12/04/20 6:53:00 EST, EC Capsule, [facility], Partial fill upon patient request if the prescription is for a schedule IIopioid drug., 175.2, cm, 11/28/20 7:21:00 EST, Height Start Date: 12/04/20 Status: Ordered polyethylene glycol 3350 oral powder for reconstitution = 17 Gm, By Mouth, Daily, dissolve in water or juice, # 527 Gm, 11 Refills, Maintenance, 08/26/20 9:54:00 EDT, [facility], 17 Gm By Mouth Daily,Instr:dissolve in water or juice, 175.2, cm, 07/09/20 10:27:00 EDT, Height Start Date: 08/26/20 Status: Ordered pravastatin 40 mg oral tablet 1 tablet = 40 mg, By Mouth, Daily, Pt needs labs, # 30 tablet, 2 Refills, Soft Stop, 11/17/20 12:45:00 EST, [facility], 175.2, cm, 07/09/20 10:27:00 EDT, Height Start Date: 11/17/20 Status: Ordered Robafen 100 mg/5 ml oral liquid 10 mL, By Mouth, 4 times a day, PRN NEEDED FOR COUGH/NOTIFY MD IF NO RELIEF AFTER 48 HRS / DOSE =, GUAIFENESIN (TUSSIN MUCUS-CONGEST 100MG/5ML., # 240 mL, 4 Refills, Acute, 10/28/20 6:38:00 EST, [facility], 175.2, cm, 07/09/20 10:27:00 EDT, He... Start Date: 10/28/20 Status: Ordered Shingrix intramuscular injection 0.5 mL, Intramuscular, Once, # 0.5 mL, 1 Refills, Soft Stop, 06/28/18 10:24:17 EDT Start Date: 06/28/18 Status: Ordered thera multivitamin thera multivitamin, See Instructions, # 30 tablet, Refills 5, Tot. Refills 5, Maintenance, po qd, 10/29/20 16:01:00 EST, Compound, 175.2, cm, 07/09/20 10:27:00 EDT, Height Start Date: 10/29/20 Status: Ordered Zestril 20 mg oral tablet 20 mg, 1, tablet, By Mouth, Daily, # 90 tablet, Refills 1, Tot. Refills 1, Maintenance, 08/07/20 12:37:00 EDT, Route to Pharmacy Electronically, [facility], 175.2, cm, 07/09/20 10:27:00 EDT, Height, Dry Weight Start Date: 08/07/20 Stop Date: 02/03/21 Status: Ordered Problem List Condition Effective Dates [...] Raynaud's phenomenon(Confirmed) Active UI (urinary incontinence)(Confirmed) Active 17274; repeat 2020; repeat 2017 3egd 2012 barretts, repeat 2014 4egd 2010 positive barretts repeat 2011 5C2 6colonoscopy 2007 nl repeat 2016 7repeat 2024 43922 Social History Social History Type Response Smoking Status Never smoker entered on: 06/25/16 Sex
--- OUTSIDE RECORDS SUMMARY | 2023-06-15 11:52 | XMS_ITS | Continuity of Care Document ---
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 Role Phone Brandon Freeman MD Primary Care Physician [facility]): 05[facility]13[facility]23 - 06/12/23 [facility] Adult [address] [place] [address]- Attending Physician: Admtr, Ar8 Allergies, Adverse Reactions, Alerts Substance Reaction Severity Status azithromycin Active macrolide antibiotics Active Dust Active ketolides Active Immunizations Given and Recorded Vaccine Date Status Refusal Reason [id number] 12y+ bivalent booster vax 07/22/22 Recorded tetanus-diphtheria [...] clinic 5Admin Note: FLU CLINIC 6Admin Note: [facility] VIS [phone] given 7Admin Note: given in clinic 8Result Comment: Pt. already received on 08/07/2015 Medications acetaminophen 325 mg oral tablet 2, tablet, By Mouth, Every 6 hours, PRN, OLUL=386DM., # 60 tablet, Refills 0, Maintenance, NEEDED FOR FEVER>100.5 OR PAIN SHOWN BY FACIAL GRIMACE NOTIFY MD IF USED >, 11/12/22 9:30:00 EST, Route to Pharmacy Electronically, [facility], 175.2, c... Start Date: 11/12/22 Stop Date: 11/15/22 Status: Ordered bacitracin zinc 500 units/g topical ointment See Instructions, APPLY SMALL AMOUNT TOPICALLY TO SUPERFICIAL WOUNDS 4 TIMES A DAY NEEDED AN ANTIBACTERIAL / CALL MD IF USING FOR MORE THAN 7 DAYS, # 28 Gm, 11 Refills, Maintenance, 11/09/22 15:57:00 EST, [facility], 7, APPLY SMALL AMOUNT T... Start [...] supp, 11 Refills, Maintenance, 12/16/22 13:35:00 EST, [facility], 175.2, cm, 07/27/22 11:37:00 EDT, Height [...] 30 capsule, 11 Refills, Maintenance, 07/29/2211:36:00 EDT, [facility], 30, 1 capsule By Mouth Daily,Instr:FOR INTESTINAL HEALTH., 175.2, cm, 07/27/22 11:37:00 EDT, Height Start Date: 07/29/22 Status: Ordered diazepam 10 mg oral tablet See Instructions, TAKE 1 TABLET BY MOUTH TWO HOURS PRIOR TO APPOINTMENT/PROCEDURE (EYE AND PODIATRYONLY) FOR ANXIETY, # 1 tablet, Refills 5, Tot. Refills 5, Maintenance, 05/17/23 12:44:00 EDT, Instructions Replace Required Details, Route to Pharmacy... Start Date: 05/17/23 Status: Ordered Disposable Enema 7 g-19 g rectal enema See Instructions, ONE ENEMA PER RECTUM DAY 5 WITHOUT BOWEL MOVEMENT / IF NO RESULTS NOTIFY MD / FORCONSTIPATION / IC FLEET ENEMA 7 GM - 19 GM, # 133 mL, 11 Refills, Physician Stop 04/06/24 13:54:00 EDT, 04/05/23 13:54:00 EDT, [facility], 5, ONE... Start Date: 04/05/23 Stop Date: 04/06/24 Status: Ordered Ditropan XL 10 mg oral tablet, extended release 10, mg, 1, tablet, By Mouth, Daily, 0, 01/03/07 9:24:09, Print ANNE-MARIE Number, [id number], Constant Indicator Start Date: 01/03/07 Status: Ordered DOK 100 mg oral tablet See Instructions, TAKE 1 TABLET BY MOUTH TWICE DAILY (AM AND PM) (STOOL SOFTENER EQUIVALENT), # 60 tablet, 5 Refills, Maintenance, 02/02/23 15:38:00 EDT, [facility], 175.2, cm, 02/01/23 15:11:00EDT, Height Start [...] Instructions Replace Required Details, Route toPharmacy Electronically, [facility], 175.2, cm... Start Date: 04/09/20 Status: Ordered fit to pt fit to pt, See Instructions, # 1 units, Refills 0, Tot. Refills 0, Maintenance, rigid cervical collar. Fit to pt., 06/21/18 15:59:47 EDT, Compound Start Date: 06/21/18 Status: Ordered Flomax 0.4 mg oral capsule 0.4, mg, 1, capsule, By Mouth, Daily, 0, 0, 01/03/07 9:24:42, Print ANNE-MARIE Number, [id number], Constant Indicator Start Date: 01/03/07 Status: Ordered hydrochlorothiazide 25 mg oral tablet 1, tablet, By Mouth, Daily in AM, FOR HTN/MONITOR BP/IF SYSTOLIC MORE THAN 160, DIASTOLIC MORE [id number], SYSTOLIC LESS THAN 90, OR DIASTOLIC LESS THAN 50 CALLMD., # 90 tablet, Refills 1, Tot. Refills1, Maintenance, 03/15/23 14:21:00 EDT, [facility]... Start Date: 03/15/23 Status: Ordered HYDROCORTISONE 1% [...] Gm, 11 Refills, Maintenance, 12/11/19 11:11:00 EST, [facility], APPLY TO EXTERNAL HEMMORRHOIDS TWICE DAILY PRN PER DR FREEMAN, 175.2, cm, 10/12/19 8:18:00 EST, Height,... Start Date: 12/11/19 Status: Ordered ibuprofen 400 mg oral tablet 400 mg, 1, tablet, By Mouth, 3 times a day, PRN, # 30 tablet, Refills 1, Tot. Refills 1, Maintenance, as needed for pain, 12/25/18 11:23:03 EST, Route to Pharmacy Electronically, [id number], [facility] Start Date: 12/25/18 Status: Ordered lactulose 10 gm/15 ml oral syrup = 20 Gm, By Mouth, Daily at bedtime, # 946 mL, 11 Refills, Maintenance, 09/01/22 7:18:00 EDT, [facility], 31, 20 Gm By Mouth Daily [...] 03/08/23 11:54:00 EDT, Route to Pharmacy Electronically, [facility], Partial fill u... Start Date: 03/08/23 Stop Date: 03/08/24 Status: Ordered loratadine 10 mg oral tablet 1, tablet, By Mouth, Daily, PRN, # 30 tablet, Refills 11, NEEDED FOR ALLERGY SYMPTOMS WATERY, ITCHY RED EYES, SNEEZING FOR ALLERGIC RHINITIS, Route to Pharmacy Electronically, [facility], 175.2, cm, 07/20/21 10:29:00 EDT, Height Start Date: 11/10/21 Status: Ordered Milk of Magnesia 8% oral suspension 30 mL, By Mouth, Daily at bedtime, FOR CONSTIPATION PYNP=0102 MG., # 900 mL, 5 Refills, Maintenance, 04/04/23 21:00:00 EDT, [facility], 175.2, cm, 02/01/23 15:11:00 EDT, Height Start Date: 04/04/23 Status: Ordered omeprazole 40 mg oral enteric coated capsule 1 capsule, By Mouth, Daily in AM, # 30 capsule, 5 Refills, Maintenance, 02/01/23 7:37:00 EDT, [facility], 175.2, cm, 07/27/22 11:37:00 EDT, Height Start Date: 02/01/23 Status: Ordered polyethylene glycol 3350 oral powder for reconstitution See Instructions, MIX 17GM WITH 8 OUNCES OF WATER OR JUICE DAILY AT 5PM FOR CONSTIPATION (POLYETHYLENE GLYCOL), # 510 Gm, 11 Refills, Physician Stop 10/07/23 11:17:00 EST, 10/07/22 11:17:00 EST, [facility], 30, MIX 17GM WITH 8 OUNCES OF WATER OR... Start Date: 10/07/22 Stop Date: 10/07/23 Status: Ordered pravastatin 40 mg oral tablet See Instructions, TAKE 1 TABLET BY MOUTH DAILY IN THE PM FOR HYPERLIPIDEMIA, # 30 tablet, 5 Refills, Maintenance, 05/19/23 0:31:00 EDT, [facility], 175.2, cm, 05/13/23 11:02:00 EDT, Height Start Date: 05/19/23 Status: Ordered Shingrix intramuscular injection 0.5 mL, [...] 1 Refills, Maintenance, 05/11/22 14:45:00 EDT, Cream, [facility], Partial fill upon patient request if [...] tablet, 5 Refills, Maintenance, 04/04/23 21:00:00 EDT, [facility], 30, TAKE 1 TABLET BY MOUTH [...] Hypertension Confirmed Active Intermittent vomiting Confirmed Active Elevated liver function tests Confirmed Active Obesity (BMI 30-39.9) Confirmed Active Raynaud's phenomenon Confirmed Active UI (urinary incontinence) Confirmed Active 69646; repeat 2020; repeat 2017 3egd 2011 barretts, repeat 2014 4egd 2009 positive barretts repeat 2011 5C2 6colonoscopy 2007 nl repeat 2016 7repeat 2024 [id number] Social History Social History Type Response Smoking Status Never smoker entered on: 06/25/16 Sex Cardiology * Brigette Young: PERFORM Event Display: Cardiovascular Results Scanned Authored Date: [id number] * Brigette Young: PERFORM Event Display: Cardiovascular Results Scanned Authored Date: [id number] * Jacy Mills: PERFORM Event Display: Cardiovascular Results Scanned Authored Date: [id number] Laboratory * Event Display: Non [facility] Lab [...] Event Display: Radiology Results Scanned Authored Date: [id number] Patient Care team information Care Team Personnel Name: Hannah Roque RN Position: S RN Member Role: Primary Care Nurse Name: Reggie Godinez RN Position: [facility] RN Member Role: Primary Care Nurse Name: Christiane Cedillo RN Position: [facility] RN Member Role: Primary Care Nurse Name: Brandon Freeman MD Position: [facility] Physician - Primary Care Member Role: PCP Address: Address: [address] [place] [address]- [place] Name: Janeen Hoskins RN Position: [facility] RN Member Role: Primary Care Nurse Name: Cydney Mckinney RN Position: [facility] RN Member Role: Primary Care Nurse Name: Frantz Mi III, RN Position: [facility] RN Member Role: Primary Care Nurse Name: Cate Martel NP Position: Reference Physician Member Role: Primary Care Nurse Address: Address: [address] [place] [address]- [place] Name: Fay Morton RN Position: [facility] RN Member Role: Primary Care Nurse Name: Massiel Lu RN Position: [facility] RN Member Role: Primary Care Nurse Name: Lurdes Mujica RN Position: [facility] RN Member Role: Primary Care Nurse Name: Brandie Horvath RN Position: [facility] D[employer] Panner Member Role: Primary Care Nurse Name: Claribel Howe RN Position: [facility] SN RN Member Role: Primary Care Nurse Care Team Related Persons Name: JOHAN PERKINS Name: DAWOOD DE LOS SANTOS Address: home [address] [place] [address] Name: JENNIFER JUAREZ Address: home [address] [place] [id number]
--- OUTSIDE RECORDS SUMMARY | 2023-06-15 11:52 | XMS_ITS | Continuity of Care Document ---
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 Role Phone Brandon Freeman MD Primary Care Physician [facility]): 07[facility]20 - 08/28/20 [facility] Adult [address] [place] [address]- [facility] Allergies, Adverse Reactions, Alerts Substance Reaction Severity Status azithromycin Active macrolide antibiotics Active Dust Active ketolides Active Immunizations Given and Recorded Vaccine Date Status Refusal Reason influenza virus vaccine, inactivated 09/19/19 Give n influenza virus vaccine, inactivated 08/28/18 Ayad rded influenza virus vaccine, inactivated 08/01/17 Ayad rded influenza virus vaccine, inactivated 08/07/15 Give n influenza virus vaccine, inactivated 08/02/13 Give n influenza virus vaccine, inactivated 1 07/24/13 Gi stacie influenza virus vaccine, inactivated 2 07/20/12 Gi stacie zoster vaccine, inactivated 12/29/18 Recorded zoster vaccine, inactivated 09/30/18 Recorded pneumococcal 23-valent vaccine 06/28/18 Given pneumococcal 23-valent vaccine 04/08/95 Given pneumococcal 13-valent vaccine 06/24/15 Given Zostavax (oldterm) 05/13/12 Given Tet/diphth/pertussis, acel (oldterm) 09/06/11 Give n Fluarix (oldterm) 4 08/05/11 Given FluLaval (oldterm) 5 08/05/10 Given Influenza Virus Vaccine (oldterm) 6 07/18/09 Given Influenza Virus Vaccine (oldterm) 7 09/02/07 Given Influenza Inactive (IM) (oldterm) 8 08/16/08 Given tetanus-diphtheria toxoids (Td) 04/08/02 Given Not Given Vaccine Date Status Refusal Reason influenza virus vaccine, inactivated 12/17/15 No t Given Parent Or Guardian Refuses 1Admin Note: FLU CLINIC 2Admin Note: VIS GIVEN 3Admin Note: FLU CLINIC 4Admin Note: [employer] [facility] VIS [phone] given 5Admin Note: given by lisy short by tyler 6Admin Note: given in clinic 7Admin Note: given in clinic 8Result Comment: [...] Replace Required Details, Route to Pharmacy Electronically, [facility] Start Date: 11/05/19 Status: Ordered Ditropan XL 10 mg oral tablet, extended release 10, mg, 1, tablet, By Mouth, Daily, 0, 01/03/07 9:24:09, Print ANNE-MARIE Number, [id number], Constant Indicator Start Date: 01/03/07 Status: Ordered DOK 100 mg oral tablet See Instructions, TAKE 1 TABLET BY MOUTH TWICE DAILY (STOOL SOFTENER EQUIVALENT), # 60 tablet, 5 Refills, Soft Stop, 05/08/20 13:17:00 EDT, [facility], 175.2, cm, 10/12/19 8:18:00 EST, Height, Dry Weight Start Date: 05/08/20 Status: Ordered Eucerin cream Eucerin cream, See [...] Instructions Replace Required Details, Route toPharmacy Electronically, [facility], 175.2, cm... Start Date: 04/09/20 Status: [...] 0, 0, 01/03/07 9:24:42, Print ANNE-MARIE Number, [id number], Constant Indicator Start Date: 01/03/07 Status: Ordered guaiFENesin 100 mg/5 mL oral liquid 10 mL = 200 mg, By Mouth, 4 times a day, PRN Cough, PER DR FREEMAN, # 240 mL, 4 Refills, Maintenance, 11/13/18 10:58:54 EST Start Date: 11/13/18 Status: Ordered hydrochlorothiazide 25 mg oral tablet [...] 12/25/18 11:23:03 EST, Route to Pharmacy Electronically, [id number], [facility] Start Date: 12/25/18 Status: Ordered lactulose 10 gm/15 ml oral syrup See Instructions, TWO TABLESPOONFULS BY MOUTH DAILY AT BEDTIME FOR CONSTIPATION / GIVE WITH LIQUIDSJUICE/WATER / 2 TBSP = 30 ML DOSE = 20 GRAMS, # 946 mL, 11 Refills, Soft Stop, 08/15/20 7:20:00 EDT, [facility], TWO TABLESPOONFULS BY MOUTH DAILY... Start Date: 08/15/20 Status: Ordered loratadine 10 mg oral tablet 10 mg, 1, tablet, By Mouth, Daily, PER DR FREEMAN, # 30 tablet, Refills 11, Tot. Refills 11, 02/19/20 9:46:00 EDT, Route to Pharmacy Electronically, [facility], 175.2, cm, 10/12/19 8:18:00 EST, Height, 73.2, kg, 03/05/18 17:34:00 EDT, Dry Weight Start Date: 02/19/20 Status: Ordered Milk of Magnesia 8% oral suspension 30 mL = 2.4 Gm, By Mouth, Daily at bedtime, # 900 mL, 5 Refills, Maintenance, 02/20/20 12:44:00 EDT, [facility], 175.2, cm, 10/12/19 8:18:00 EST, Height, 73.2, kg, 03/05/18 17:34:00 EDT, Dry Weight Start Date: 02/20/20 Stop Date: 08/18/20 Status: Ordered omeprazole 20 mg oral enteric coated capsule 1 capsule = 20 mg, By Mouth, 2 times a day, # 30 capsule, 11 Refills, Soft Stop, 05/07/20 17:03:00 EDT, [facility], 175.2, cm, 10/12/19 8:18:00 EST, Height, Dry Weight Start Date: 05/07/20 Status: Ordered polyethylene glycol 3350 oral powder for reconstitution = 17 Gm, By Mouth, Daily, dissolve in water or juice, # 527 Gm, 11 Refills, Maintenance, 08/26/20 9:54:00 EDT, [facility], 17 Gm By Mouth Daily,Instr:dissolve in water or juice, 175.2, cm, 07/09/20 10:27:00 EDT, Height Start Date: 08/26/20 Status: Ordered pravastatin 40 mg oral tablet 1 tablet = 40 mg, By Mouth, Daily, # 30 tablet, 5 Refills, Soft Stop, 05/20/20 11:37:00 EDT, [facility], 175.2, cm, 10/12/19 8:18:00 EST, Height, Dry Weight Start Date: 05/20/20 Status: Ordered Shingrix intramuscular injection 0.5 mL, Intramuscular, Once, # 0.5 mL, 1 Refills, Soft Stop, 06/28/18 10:24:17 EDT Start Date: 06/28/18 Status: Ordered thera multivitamin thera multivitamin, See Instructions, # 30 tablet, Refills 5, Tot. Refills 5, Maintenance, po qd, 05/06/20 14:24:00 EDT, Compound, 175.2, cm, 10/12/19 8:18:00 EST, Height Start Date: 05/06/20 Status: Ordered Zestril 20 mg oral tablet 20 mg, 1, tablet, By Mouth, Daily, # 90 tablet, Refills 1, Tot. Refills 1, Maintenance, 08/07/20 12:37:00 EDT, Route to Pharmacy Electronically, [facility], 175.2, cm, 07/09/20 10:27:00 EDT, Height, [...] Raynaud's phenomenon(Confirmed) Active UI (urinary incontinence)(Confirmed) Active 02112; repeat 2020; repeat 2017 3egd 2011 barretts, repeat 2014 4egd 2009 positive barretts repeat 2011 5C2 6colonoscopy 2007 nl repeat 2016 7repeat 2024 [id number] Social History Social History Type Response Smoking Status Never smoker entered on: 06/25/16 Sex
--- OUTSIDE RECORDS SUMMARY | 2023-06-15 11:52 | XMS_ITS | Continuity of Care Document ---
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 Allergies, Adverse Reactions, Alerts Substance Reaction [...] GIVEN 3Admin Note: FLU CLINIC 4Admin Note: [employer] [facility] VIS [phone] given 5Admin Note: given by lisy short [...] Replace Required Details, Route to Pharmacy Electronically, [facility] Start Date: 11/05/19 Status: Ordered Ditropan XL 10 mg oral tablet, extended release 10, mg, 1, tablet, By Mouth, Daily, 0, 01/03/07 9:24:09, Print ANNE-MARIE Number, [id number], Constant Indicator Start Date: 01/03/07 Status: Ordered DOK 100 mg oral tablet See Instructions, TAKE 1 TABLET BY MOUTH TWICE DAILY (STOOL SOFTENER EQUIVALENT), # 60 tablet, 5 Refills, Soft Stop, 05/08/20 13:17:00 EDT, [facility], 175.2, cm, 10/12/19 8:18:00 EST, Height, [...] Instructions Replace Required Details, Route toPharmacy Electronically, [facility], 175.2, cm... Start Date: 04/09/20 Status: [...] 0, 0, 01/03/07 9:24:42, Print ANNE-MARIE Number, [id number], Constant Indicator Start Date: 01/03/07 Status: Ordered [...] 12/25/18 11:23:03 EST, Route to Pharmacy Electronically, [id number], [facility] Start Date: 12/25/18 Status: Ordered lactulose 10 gm/15 ml oral syrup See Instructions, TWO TABLESPOONFULS BY MOUTH DAILY AT BEDTIME FOR CONSTIPATION / GIVE WITH LIQUIDSJUICE/WATER / 2 TBSP = 30 ML DOSE = 20 GRAMS, # 946 mL, 11 Refills, Soft Stop, 08/15/20 7:20:00 EDT, [facility], TWO TABLESPOONFULS BY MOUTH DAILY... Start Date: 08/15/20 Status: Ordered loratadine 10 mg oral tablet 10 mg, 1, tablet, By Mouth, Daily, PER DR FREEMAN, # 30 tablet, Refills 11, Tot. Refills 11, 02/19/20 9:46:00 EDT, Route to Pharmacy Electronically, [facility], 175.2, cm, 10/12/19 8:18:00 EST, Height, 73.2, kg, 03/05/18 17:34:00 EDT, Dry Weight Start Date: 02/19/20 Status: Ordered Milk of Magnesia 8% oral suspension 30 mL = 2.4 Gm, By Mouth, Daily at bedtime, # 900 mL, 5 Refills, Maintenance, 02/20/20 12:44:00 EDT, [facility], 175.2, cm, 10/12/19 8:18:00 EST, Height, 73.2, kg, 03/05/18 17:34:00 EDT, Dry Weight Start Date: 02/20/20 Stop Date: 08/18/20 Status: Ordered omeprazole 20 mg oral enteric coated capsule 1 capsule = 20 mg, By Mouth, 2 times a day, # 30 capsule, 11 Refills, Soft Stop, 05/07/20 17:03:00 EDT, [facility], 175.2, cm, 10/12/19 8:18:00 EST, Height, Dry Weight Start Date: 05/07/20 Status: Ordered polyethylene glycol 3350 oral powder for reconstitution = 17 Gm, By Mouth, Daily, dissolve in water or juice, # 527 Gm, 11 Refills, Maintenance, 08/26/20 9:54:00 EDT, [facility], 17 Gm By Mouth Daily,Instr:dissolve in water or juice, 175.2, cm, 07/09/20 10:27:00 EDT, Height Start Date: 08/26/20 Status: Ordered pravastatin 40 mg oral tablet 1 tablet = 40 mg, By Mouth, Daily, # 30 tablet, 5 Refills, Soft Stop, 05/20/20 11:37:00 EDT, [facility], 175.2, cm, 10/12/19 8:18:00 EST, Height, Dry [...] 08/07/20 12:37:00 EDT, Route to Pharmacy Electronically, [facility], 175.2, cm, 07/09/20 10:27:00 EDT, Height, [...] Raynaud's phenomenon(Confirmed) Active UI (urinary incontinence)(Confirmed) Active 48807; repeat 2020; repeat 2017 3egd 2011 barretts, repeat 2014 4egd 2009 positive barretts repeat 2011 5C2 6colonoscopy 2007 nl repeat 2016 7repeat 2024 [id number] Social History Social History Type Response Smoking Status Never smoker entered on: 06/25/16 Sex
--- OUTSIDE RECORDS SUMMARY | 2023-06-15 11:52 | XMS_ITS | Continuity of Care Document ---
Author Name Unknown Organization [facility]ace [facility] Address [address] [place] [address]- Care Team Providers Care Filling Carrier Name Role Phone Brandon Freeman MD Primary Care Physician [facility] 07[facility]21 - 08/21/21 [facility] [address] [place] [address]- Allergies, Adverse Reactions, Alerts Substance Reaction Severity [...] GIVEN 5Admin Note: FLU CLINIC 6Admin Note: [facility] [place] VIS [id number] given 7Admin Note: given in clinic 8Result Comment: Pt. already received on 08/07/2015 Medications bacitracin zinc 500 units/g topical ointment See Instructions, APPLY SMALL AMOUNT TOPICALLY TO SUPERFICIAL WOUNDS 4 TIMES A DAY NEEDED AN ANTIBACTERIAL / CALL MD IF USING FOR MORE THAN 7 DAYS, # 1 Gm, 11 Refills, Acute, [facility], 7, APPLY SMALL AMOUNT TOPICALLY TO [...] CONSTIPATION, # 7 supp, 11 Refills, Acute, [facility], 175.2, cm, 10/12/19 8:18:00 EST, Height [...] INTESTINAL HEALTH., # 30 capsule, 11 Refills, [facility], 30, TAKE 1 CAPSULE BY MOUTH DAILY FOR INTESTINAL HEALTH, 175.2, cm, 07/20/21 10:29:00 EDT, Height Start Date: 07/23/21 Status: Ordered diazepam 10 mg oral tablet See Instructions, PRN, 1 tablet By Mouth 2 hour prior to medical appointments, # 1 tablet, Refills 5, Tot. Refills 5, Maintenance, for anxiety, 07/20/21 10:26:00 EDT, Instructions Replace Required Details, Route to Pharmacy Electronically, [facility] Start Date: 07/20/21 Status: Ordered Disposable Enema 7 g-19 g rectal enema See Instructions, ONE ENEMA PER RECTUM DAY 5 WITHOUT BOWEL MOVEMENT / IF NO RESULTS NOTIFY MD / FORCONSTIPATION / IC FLEET ENEMA 7 GM - 19 GM, # 133 mL, 11 Refills, Soft Stop, [facility], 5, ONE ENEMA PER RECTUM DAY 5 WITHOUT BOWEL MOVEMENT / IF... Start Date: 03/11/21 Status: Ordered Ditropan XL 10 mg oral tablet, extended release 10, mg, 1, tablet, By Mouth, Daily, 0, 01/03/07 9:24:09, Print ANNE-MARIE Number, [id number], Constant Indicator Start Date: 01/03/07 Status: Ordered DOK 100 mg oral tablet See Instructions, TAKE 1 TABLET BY MOUTH TWICE DAILY (STOOL SOFTENER EQUIVALENT), # 60 tablet, 5 Refills, Maintenance, [facility], 175.2, cm, 11/28/20 7:21:00 EST, Height Start Date: 05/04/21 Status: Ordered Eucerin cream Eucerin cream, See [...] Instructions Replace Required Details, Route toPharmacy Electronically, [facility], 175.2, cm... Start Date: 04/09/20 Status: Ordered fit to pt fit to pt, See Instructions, # 1 units, Refills 0, Tot. Refills 0, Maintenance, rigid cervical collar. Fit to pt., 06/21/18 15:59:47 EDT, Compound Start Date: 06/21/18 Status: Ordered Flomax 0.4 mg oral capsule 0.4, mg, 1, capsule, By Mouth, Daily, 0, 0, 01/03/07 9:24:42, Print ANNE-MARIE Number, [id number], Constant Indicator Start Date: 01/03/07 Status: Ordered hydrochlorothiazide 25 mg oral tablet See Instructions, TAKE 1 TABLET BY MOUTH DAILY IN AM FOR HTN / MONITOR BP / IF SYSTOLIC BP > 160OR DIASTOLIC > 100 OR SYSTOLIC < 90 OR DIASTOLIC < 50 CALL MD, # 30 tablet, Refills 5, Instructions Replace Required Details, Route to Pharmacy Electronic... Start Date: 07/09/21 Status: Ordered hydrocortisone 1% topical cream See Instructions, APPLY TO EXTERNAL HEMMORRHOIDS TWICE DAILY PRN PER DR FREEMAN, # 60 Gm, 11 Refills, Maintenance, 12/11/19 11:11:00 EST, [facility], APPLY TO EXTERNAL HEMMORRHOIDS TWICE DAILY PRN PER DR FREEMAN, 175.2, cm, 10/12/19 8:18:00 EST, Height,... Start Date: 12/11/19 Status: Ordered ibuprofen 400 mg oral tablet 400 mg, 1, tablet, By Mouth, 3 times a day, PRN, # 30 tablet, Refills 1, Tot. Refills 1, Maintenance, as needed for pain, 12/25/18 11:23:03 EST, Route to Pharmacy Electronically, [id number], [facility] Start Date: 12/25/18 Status: Ordered lactulose 10 gm/15 ml oral syrup See Instructions, TWO TABLESPOONFULS BY MOUTH DAILY AT BEDTIME FOR CONSTIPATION / GIVE WITH LIQUIDSJUICE/WATER / 2 TBSP = 30 ML DOSE = 20 GRAMS, # 946 mL, 11 Refills, Soft Stop, 08/15/20 7:20:00 EDT, [facility], TWO TABLESPOONFULS BY MOUTH DAILY... Start Date: 08/15/20 Status: Ordered lisinopril 20 mg oral tablet See Instructions, TAKE 1 TABLET BY MOUTH DAILY IN THE AM FOR HTN / CALL MD IF SBP>160 OR DBP>100 OR SBP<90 OR DBP<50, # 30 tablet, Refills 5, Instructions Replace Required Details, Route to Pharmacy Electronically, [facility], 175.2, cm, 07/20/21... Start Date: 08/04/21 Status: Ordered loratadine 10 mg oral tablet 10 mg, 1, tablet, By Mouth, Daily, PER DR FREEMAN, # 30 tablet, Refills 11, Tot. Refills 11, 02/19/20 9:46:00 EDT, Route to Pharmacy Electronically, [facility], 175.2, cm, 10/12/19 8:18:00 EST, Height, 73.2, kg, 03/05/18 17:34:00 EDT, Dry Weight Start Date: 02/19/20 Status: Ordered Milk of Magnesia 8% oral suspension 30 mL = 2.4 Gm, By Mouth, Daily at bedtime, # 900 mL, 5 Refills, Maintenance, 04/02/21 7:35:00 EDT,[facility], 175.2, cm, 11/28/20 7:21:00 EST, Height Start Date: 04/02/21 Stop Date: 09/29/21 Status: Ordered omeprazole 40 mg oral enteric coated capsule See Instructions, TAKE 1 CAPSULE BY MOUTH DAILY FOR GERD, # 30 capsule, 2 Refills, Maintenance, [facility], 175.2, cm, 11/28/20 7:21:00 EST, Height Start Date: 06/02/21 Status: Ordered polyethylene glycol 3350 oral powder for reconstitution = 17 Gm, By Mouth, Daily, dissolve in water or juice, # 527 Gm, 11 Refills, Maintenance, 08/26/20 9:54:00 EDT, [facility], 17 Gm By Mouth Daily,Instr:dissolve in water or juice, 175.2, cm, 07/09/20 10:27:00 EDT, Height Start Date: 08/26/20 Status: Ordered pravastatin 40 mg oral tablet See Instructions, TAKE 1 TABLET BY MOUTH DAILY IN THE PM FOR HYPERLIPIDEMIA, # 30 tablet, 5 Refills, Maintenance, [facility], 175.2, cm, 11/28/20 7:21:00 EST, Height Start Date: 05/14/21 Status: Ordered Robafen 100 mg/5 ml oral liquid 10 mL, By Mouth, 4 times a day, PRN NEEDED FOR COUGH/NOTIFY MD IF NO RELIEF AFTER 48 HRS / DOSE =, GUAIFENESIN (TUSSIN MUCUS-CONGEST 100MG/5ML., # 240 mL, 4 Refills, Acute, 10/28/20 6:38:00 EST, [facility], 175.2, cm, 07/09/20 10:27:00 EDT, He... [...] EST, Height Start Date: 04/30/21 Status: Ordered Problem List Condition Effective Dates [...] Raynaud's phenomenon(Confirmed) Active UI (urinary incontinence)(Confirmed) Active 94035; repeat 2020; repeat 2017 3egd 2011 barretts, repeat 2014 4egd 2009 positive barretts repeat 2012 5C2 6colonoscopy 2007 repeat 2017 7repeat 2024 [id number] Social History Social History Type Response Smoking Status Never smoker entered on: 06/25/16 Sex
--- OUTSIDE RECORDS SUMMARY | 2023-06-15 11:53 | XMS_ITS | Continuity of Care Document ---
Author Name Unknown Organization [facility] [place] lt Address [address] [place] [address]- Care Team Providers Care Seaman Officer Name Role Phone Brandon Freeman MD Primary Care Physician [phone] [facility] 10[facility]20 - 11/26/20 [facility] [place] Adult [address] [place] [address]- Allergies, Adverse Reactions, Alerts Substance Reaction Severity [...] GIVEN 3Admin Note: FLU CLINIC 4Admin Note: M:[facility] VIS [phone] given 5Admin Note: given by lisy short [...] Replace Required Details, Route to Pharmacy Electronically, [facility] Start Date: 11/05/19 Status: Ordered Ditropan XL 10 mg oral tablet, extended release 10, mg, 1, tablet, By Mouth, Daily, 0, 01/03/07 9:24:09, Print ANNE-MARIE Number, [id number], Constant Indicator Start Date: 01/03/07 Status: Ordered DOK 100 mg oral tablet See Instructions, TAKE 1 TABLET BY MOUTH TWICE DAILY (STOOL SOFTENER EQUIVALENT), # 60 tablet, 5 Refills, Soft Stop, 11/06/20 9:22:00 EST, [facility], 175.2, cm, 07/09/20 10:27:00 EDT, Height [...] Instructions Replace Required Details, Route toPharmacy Electronically, [facility], 175.2, cm... Start Date: 04/09/20 Status: [...] 0, 0, 01/03/07 9:24:42, Print ANNE-MARIE Number, [id number], Constant Indicator Start Date: 01/03/07 Status: Ordered [...] Gm, 11 Refills, Maintenance, 12/11/19 11:11:00 EST, [facility], APPLY TO EXTERNAL HEMMORRHOIDS TWICE DAILY PRN PER DR FREEMAN, 175.2, cm, 10/12/19 8:18:00 EST, Height,... Start Date: 12/11/19 Status: Ordered ibuprofen 400 mg oral tablet 400 mg, 1, tablet, By Mouth, 3 times a day, PRN, # 30 tablet, Refills 1, Tot. Refills 1, Maintenance, as needed for pain, 12/25/18 11:23:03 EST, Route to Pharmacy Electronically, [id number], [facility] Start Date: 12/25/18 Status: Ordered lactulose 10 gm/15 ml oral syrup See Instructions, TWO TABLESPOONFULS BY MOUTH DAILY AT BEDTIME FOR CONSTIPATION / GIVE WITH LIQUIDSJUICE/WATER / 2 TBSP = 30 ML DOSE = 20 GRAMS, # 946 mL, 11 Refills, Soft Stop, 08/15/20 7:20:00 EDT, [facility], TWO TABLESPOONFULS BY MOUTH DAILY... Start Date: 08/15/20 Status: Ordered loratadine 10 mg oral tablet 10 mg, 1, tablet, By Mouth, Daily, PER DR FREEMAN, # 30 tablet, Refills 11, Tot. Refills 11, 02/19/20 9:46:00 EDT, Route to Pharmacy Electronically, [facility], 175.2, cm, 10/12/19 8:18:00 EST, Height, 73.2, kg, 03/05/18 17:34:00 EDT, Dry Weight Start Date: 02/19/20 Status: Ordered Milk of Magnesia 8% oral suspension 30 mL = 2.4 Gm, By Mouth, Daily at bedtime, # 900 mL, 5 Refills, Maintenance, 09/02/20 12:20:00 EST, [facility], 175.2, cm, 07/09/20 10:27:00 EDT, Height, Dry Weight Start Date: 09/02/20 Stop Date: 03/01/21 Status: Ordered omeprazole 20 mg oral enteric coated capsule 1 capsule = 20 mg, By Mouth, 2 times a day, # 30 capsule, 11 Refills, Soft Stop, 05/07/20 17:03:00 EDT, [facility], 175.2, cm, 10/12/19 8:18:00 EST, Height, Dry Weight Start Date: 05/07/20 Status: Ordered polyethylene glycol 3350 oral powder for reconstitution = 17 Gm, By Mouth, Daily, dissolve in water or juice, # 527 Gm, 11 Refills, Maintenance, 08/26/20 9:54:00 EDT, [facility], 17 Gm By Mouth Daily,Instr:dissolve in water or juice, 175.2, cm, 07/09/20 10:27:00 EDT, Height Start Date: 08/26/20 Status: Ordered pravastatin 40 mg oral tablet 1 tablet = 40 mg, By Mouth, Daily, Pt needs labs, # 30 tablet, 2 Refills, Soft Stop, 11/17/20 12:45:00 EST, [facility], 175.2, cm, 07/09/20 10:27:00 EDT, Height Start Date: 11/17/20 Status: Ordered Robafen 100 mg/5 ml oral liquid 10 mL, By Mouth, 4 times a day, PRN NEEDED FOR COUGH/NOTIFY MD IF NO RELIEF AFTER 48 HRS / DOSE =, GUAIFENESIN (TUSSIN MUCUS-CONGEST 100MG/5ML., # 240 mL, 4 Refills, Acute, 10/28/20 6:38:00 EST, [facility], 175.2, cm, 07/09/20 10:27:00 EDT, He... [...] 08/07/20 12:37:00 EDT, Route to Pharmacy Electronically, [facility], 175.2, cm, 07/09/20 10:27:00 EDT, Height, [...] Raynaud's phenomenon(Confirmed) Active UI (urinary incontinence)(Confirmed) Active 20716; repeat 202015; repeat 2017 3egd 2011 barretts, repeat 2014 4egd 2009 positive barretts repeat 2011 5C2 6colonoscopy 2006 nl repeat 2016 7repeat 2024 [id number] Social History Social History Type Response Smoking Status Never smoker entered on: 06/25/16 Sex
--- OUTSIDE RECORDS SUMMARY | 2023-06-15 11:53 | XMS_ITS | Continuity of Care Document ---
Author Name Unknown Organization [facility] Address [address] [place] [address]- Care Team Providers Care Softball Umpire Name Role Phone Brandon Freeman MD Primary Care Physician [facility]21 - 12/24/21 [facility] Adult [address] [place] [address]- Allergies, Adverse Reactions, Alerts Substance Reaction Severity [...] GIVEN 5Admin Note: FLU CLINIC 6Admin Note: [facility] [place] [phone] given 7Admin Note: given in clinic 8Result [...] FOR CONSTIPATION, # 7 supp, 11 Refills, [facility], 175.2, cm, 07/20/21 10:29:00 EDT, Height [...] INTESTINAL HEALTH., # 30 capsule, 11 Refills, [facility], 30, TAKE 1 CAPSULE BY MOUTH DAILY FOR INTESTINAL HEALTH, 175.2, cm, 07/20/21 10:29:00 EDT, Height Start Date: 07/23/21 Status: Ordered diazepam 10 mg oral tablet See Instructions, PRN, 1 tablet By Mouth 2 hour prior to medical appointments, # 1 tablet, Refills 5, Tot. Refills 5, Maintenance, for anxiety, 07/20/21 10:26:00 EDT, Instructions Replace Required Details, Route to Pharmacy Electronically, [facility] Start Date: 07/20/21 Status: Ordered Disposable Enema 7 g-19 g rectal enema See Instructions, ONE ENEMA PER RECTUM DAY 5 WITHOUT BOWEL MOVEMENT / IF NO RESULTS NOTIFY MD / FORCONSTIPATION / IC FLEET ENEMA 7 GM - 19 GM, # 133 mL, 11 Refills, Soft Stop, [facility], 5, ONE ENEMA PER RECTUM DAY 5 WITHOUT BOWEL MOVEMENT / IF... Start Date: 03/11/21 Status: Ordered Ditropan XL 10 mg oral tablet, extended release 10, mg, 1, tablet, By Mouth, Daily, 0, 01/03/07 9:24:09, Print ANNE-MARIE Number, [id number], Constant Indicator Start Date: 01/03/07 Status: Ordered DOK 100 mg oral tablet See Instructions, TAKE 1 TABLET BY MOUTH TWICE DAILY (STOOL SOFTENER EQUIVALENT), # 60 tablet, 5 Refills, [facility], 175.2, cm, 07/20/21 10:29:00 EDT, Height [...] Instructions Replace Required Details, Route toPharmacy Electronically, [facility], 175.2, cm... Start Date: 04/09/20 Status: Ordered fit to pt fit to pt, See Instructions, # 1 units, Refills 0, Tot. Refills 0, Maintenance, rigid cervical collar. Fit to pt., 06/21/18 15:59:47 EDT, Compound Start Date: 06/21/18 Status: Ordered Flomax 0.4 mg oral capsule 0.4, mg, 1, capsule, By Mouth, Daily, 0, 0, 01/03/07 9:24:42, Print ANNE-MARIE Number, [id number], Constant Indicator Start Date: 01/03/07 Status: Ordered [...] Gm, 11 Refills, Maintenance, 12/11/19 11:11:00 EST, [facility], APPLY TO EXTERNAL HEMMORRHOIDS TWICE DAILY PRN PER DR FREEMAN, 175.2, cm, 10/12/19 8:18:00 EST, Height,... Start Date: 12/11/19 Status: Ordered ibuprofen 400 mg oral tablet 400 mg, 1, tablet, By Mouth, 3 times a day, PRN, # 30 tablet, Refills 1, Tot. Refills 1, Maintenance, as needed for pain, 12/25/18 11:23:03 EST, Route to Pharmacy Electronically, [id number], [facility] Start Date: 12/25/18 Status: Ordered lactulose 10 gm/15 ml oral syrup = 20 Gm, By Mouth, Daily at bedtime, GIVE WITH., # 946 mL, 11 Refills, [facility], 31, TWO TABLESPOONFULS BY MOUTH DAILY [...] Replace Required Details, Route to Pharmacy Electronically, [facility], 175.2, cm, 07/20/21... Start Date: 08/04/21 Status: Ordered loratadine 10 mg oral tablet 1, tablet, By Mouth, Daily, PRN, # 30 tablet, Refills 11, NEEDED FOR ALLERGY SYMPTOMS WATERY, ITCHY RED EYES, SNEEZING FOR ALLERGIC RHINITIS, Route to Pharmacy Electronically, [facility], 175.2, cm, 07/20/21 10:29:00 EDT, Height Start Date: 11/10/21 Status: Ordered Milk of Magnesia 8% oral suspension 30 mL, By Mouth, Daily at bedtime, FOR CONSTIPATION KMVG=7587 MG., # 900 mL, 5 Refills, [facility], 175.2, cm, 07/20/21 10:29:00 EDT, Height Start Date: 11/24/21 Status: Ordered omeprazole 40 mg oral enteric coated capsule See Instructions, TAKE 1 CAPSULE BY MOUTH DAILY FOR GERD, # 30 capsule, 2 Refills, [facility],175.2, cm, 07/20/21 10:29:00 EDT, Height Start Date: 10/28/21 Status: Ordered polyethylene glycol 3350 oral powder for reconstitution See Instructions, MIX 17GM WITH 8 OUNCES OF WATER OR JUICE DAILY AT 5PM FOR CONSTIPATION (POLYETHYLENE GLYCOL), # 510 Gm, 11 Refills, [facility], 30, MIX 17GM WITH 8 OUNCES OF WATER OR JUICE DAILY AT 5PM FOR CONSTIPATION (POLYETHYLENE GLYCOL), 17... Start Date: 09/22/21 Status: Ordered pravastatin 40 mg oral tablet See Instructions, TAKE 1 TABLET BY MOUTH DAILY IN THE PM FOR HYPERLIPIDEMIA, # 30 tablet, 5 Refills, [facility], 175.2, cm, 07/20/21 10:29:00 EDT, Height Start Date: 11/09/21 Status: Ordered Robafen 100 mg/5 ml oral liquid 10 mL, By Mouth, 4 times a day, PRN NEEDED FOR COUGH/NOTIFY MD IF NO RELIEF AFTER 48 HRS / DOSE =, GUAIFENESIN (TUSSIN MUCUS-CONGEST 100MG/5ML., # 240 mL, 4 Refills, Acute 11/25/22 12:02:00 EST, 11/25/21 12:02:00 EST, [facility], 175.2, cm, 09... Start Date: 11/25/21 [...] VITAMIN SUPPLEMENT, # 30 tablet, 5 Refills, [facility], 30, TAKE 1 TABLET BY MOUTH [...] Raynaud's phenomenon(Confirmed) Active UI (urinary incontinence)(Confirmed) Active 78926; repeat 2020; repeat 2018 3egd 2012 barretts, repeat 2014 4egd 2010 positive barretts repeat 2011 5C2 6colonoscopy 2006 repeat 2016 7repeat 2024 [id number] Social History Social History Type Response Smoking Status Never smoker entered on: 06/25/16 Sex
--- OUTSIDE RECORDS SUMMARY | 2023-06-15 11:53 | XMS_ITS | Continuity of Care Document ---
Author Name Unknown Organization [facility], [place], [facility] Address [address] [place] [address]- Care Team Providers Care Wardrobe Attendant Name Role Phone Brandon Freeman MD Primary Care Physician [facility]21 - 03/19/21 [facility] [place] Adult [address] [place] [address]- Allergies, Adverse Reactions, Alerts Substance Reaction Severity [...] GIVEN 5Admin Note: FLU CLINIC 6Admin Note: [facility] VIS [phone] given 7Admin Note: given in clinic 8Result Comment: Pt. already received on 08/07/2015 Medications bacitracin zinc 500 units/g topical ointment See Instructions, APPLY SMALL AMOUNT TOPICALLY TO SUPERFICIAL WOUNDS 4 TIMES A DAY NEEDED AN ANTIBACTERIAL / CALL MD IF USING FOR MORE THAN 7 DAYS, # 1 Gm, 11 Refills, Acute, [facility], 7, APPLY SMALL AMOUNT TOPICALLY TO [...] CONSTIPATION, # 7 supp, 11 Refills, Acute, [facility], 175.2, cm, 10/12/19 8:18:00 EST, Height [...] Acute 07/27/21 9:44:00 EDT, 08/01/20 9:44:00 EDT, [facility], 1 capsule By Mouth Daily,x90 days,Instr:FOR INTESTINAL HEALTH., 175.2, cm, 07/09/20 10:27:00 E... Start Date: 08/01/20 Stop Date: 07/27/21 Status: Ordered diazepam 10 mg oral tablet See Instructions, PRN, 1 tablet By Mouth 1 hour prior to medical appointments, # 1 tablet, Refills 5, Tot. Refills 5, Maintenance, for anxiety, 01/07/21 11:49:00 EST, Instructions Replace Required Details, Route to Pharmacy Electronically, [facility] Start Date: 01/07/21 Status: Ordered Disposable Enema 7 g-19 g rectal enema See Instructions, ONE ENEMA PER RECTUM DAY 5 WITHOUT BOWEL MOVEMENT / IF NO RESULTS NOTIFY MD / FORCONSTIPATION / IC FLEET ENEMA 7 GM - 19 GM, # 133 mL, 11 Refills, Soft Stop, [facility], 5, ONE ENEMA PER RECTUM DAY 5 WITHOUT BOWEL MOVEMENT / IF... Start Date: 03/11/21 Status: Ordered Ditropan XL 10 mg oral tablet, extended release 10, mg, 1, tablet, By Mouth, Daily, 0, 01/03/07 9:24:09, Print ANNE-MARIE Number, [id number], Constant Indicator Start Date: 01/03/07 Status: Ordered DOK 100 mg oral tablet See Instructions, TAKE 1 TABLET BY MOUTH TWICE DAILY (STOOL SOFTENER EQUIVALENT), # 60 tablet, 5 Refills, Soft Stop, 11/06/20 9:22:00 EST, [facility], 175.2, cm, 07/09/20 10:27:00 EDT, Height [...] Instructions Replace Required Details, Route toPharmacy Electronically, [facility], 175.2, cm... Start Date: 04/09/20 Status: Ordered fit to pt fit to pt, See Instructions, # 1 units, Refills 0, Tot. Refills 0, Maintenance, rigid cervical collar. Fit to pt., 06/21/18 15:59:47 EDT, Compound Start Date: 06/21/18 Status: Ordered Flomax 0.4 mg oral capsule 0.4, mg, 1, capsule, By Mouth, Daily, 0, 0, 01/03/07 9:24:42, Print ANNE-MARIE Number, [id number], Constant Indicator Start Date: 01/03/07 Status: Ordered hydrochlorothiazide 25 mg oral tablet 1, tablet, By Mouth, Daily in AM, FOR HTN / MONITOR BP / IF SYSTOLIC BP > 160 OR DIASTOLIC > 100 OR SYSTOLIC < 90 OR DIASTOLIC < 50 CALL , # 30 tablet, Refills 2, Tot. Refills 0, Maintenance, 03/11/21 9:32:00 EDT, Route to Pharmacy Electronically,... Start Date: 03/11/21 Status: Ordered hydrocortisone 1% topical cream See Instructions, APPLY TO EXTERNAL HEMMORRHOIDS TWICE DAILY PRN PER DR FREEMAN, # 60 Gm, 11 Refills, Maintenance, 12/11/19 11:11:00 EST, [facility], APPLY TO EXTERNAL HEMMORRHOIDS TWICE DAILY PRN PER DR FREEMAN, 175.2, cm, 10/12/19 8:18:00 EST, Height,... Start Date: 12/11/19 Status: Ordered ibuprofen 400 mg oral tablet 400 mg, 1, tablet, By Mouth, 3 times a day, PRN, # 30 tablet, Refills 1, Tot. Refills 1, Maintenance, as needed for pain, 12/25/18 11:23:03 EST, Route to Pharmacy Electronically, [id number], [facility] Start Date: 12/25/18 Status: Ordered lactulose 10 gm/15 ml oral syrup See Instructions, TWO TABLESPOONFULS BY MOUTH DAILY AT BEDTIME FOR CONSTIPATION / GIVE WITH LIQUIDSJUICE/WATER / 2 TBSP = 30 ML DOSE = 20 GRAMS, # 946 mL, 11 Refills, Soft Stop, 08/15/20 7:20:00 EDT, [facility], TWO TABLESPOONFULS BY MOUTH DAILY... Start Date: 08/15/20 Status: Ordered lisinopril 20 mg oral tablet 1, tablet, By Mouth, Daily in AM, FOR HTN / CALL MD IF SBP>160 OR DBP>100 OR SBP<90 OR DBP<50., # 30 tablet, Refills 5, Tot. Refills 0, Maintenance, 02/03/21 12:45:00 EDT, Route to Pharmacy Electronically, [facility], 175.2, cm, 11/28/20 7:21:00... Start Date: 02/03/21 Status: Ordered loratadine 10 mg oral tablet 10 mg, 1, tablet, By Mouth, Daily, PER DR FREEMAN, # 30 tablet, Refills 11, Tot. Refills 11, 02/19/20 9:46:00 EDT, Route to Pharmacy Electronically, [facility], 175.2, cm, 10/12/19 8:18:00 EST, Height, 73.2, kg, 03/05/18 17:34:00 EDT, Dry Weight Start Date: 02/19/20 Status: Ordered Milk of Magnesia 8% oral suspension 30 mL = 2.4 Gm, By Mouth, Daily at bedtime, # 900 mL, 5 Refills, Maintenance, 09/02/20 12:20:00 EST, [facility], 175.2, cm, 07/09/20 10:27:00 EDT, Height, Dry Weight Start Date: 09/02/20 Stop Date: 03/01/21 Status: Ordered omeprazole 40 mg oral enteric coated capsule 1 capsule = 40 mg, By Mouth, Daily, # 30 capsule, 5 Refills, Maintenance, 12/04/20 6:53:00 EST, EC Capsule, [facility], Partial fill upon patient request if the prescription is for a schedule IIopioid drug., 175.2, cm, 11/28/20 7:21:00 EST, Height Start Date: 12/04/20 Status: Ordered polyethylene glycol 3350 oral powder for reconstitution = 17 Gm, By Mouth, Daily, dissolve in water or juice, # 527 Gm, 11 Refills, Maintenance, 08/26/20 9:54:00 EDT, [facility], 17 Gm By Mouth Daily,Instr:dissolve in water or juice, 175.2, cm, 07/09/20 10:27:00 EDT, Height Start Date: 08/26/20 Status: Ordered pravastatin 40 mg oral tablet 1 tablet, By Mouth, Daily, IN THE PM FOR HYPERLIPIDEMIA., # 30 tablet, 2 Refills, Maintenance, 02/17/21 14:29:00 EDT, [facility], 175.2, cm, 11/28/20 7:21:00 EST, Height Start Date: 02/17/21 Status: Ordered Robafen 100 mg/5 ml oral liquid 10 mL, By Mouth, 4 times a day, PRN NEEDED FOR COUGH/NOTIFY MD IF NO RELIEF AFTER 48 HRS / DOSE =, GUAIFENESIN (TUSSIN MUCUS-CONGEST 100MG/5ML., # 240 mL, 4 Refills, Acute, 10/28/20 6:38:00 EST, [facility], 175.2, cm, 07/09/20 10:27:00 EDT, He... [...] EDT, Height Start Date: 10/29/20 Status: Ordered Problem List Condition Effective Dates [...] Raynaud's phenomenon(Confirmed) Active UI (urinary incontinence)(Confirmed) Active 05935; repeat 2020; repeat 2017 3egd 2011 barretts, repeat 2014 4egd 2009 positive barretts repeat 2011 5C2 6colonoscopy 2006 nl repeat 2016 7repeat 2024 [id number] Social History Social History Type Response Smoking Status Never smoker entered on: 06/25/16 Sex
--- OUTSIDE RECORDS SUMMARY | 2023-06-15 11:53 | XMS_ITS | Continuity of Care Document ---
Author Name Unknown Organization [facility], [place], operated [facility] lt Address [address] [place] [address]- Care Team Providers Care Flanging Roll Operator Name Role Phone [place], Brandon Chamorro Primary Care Physician [facility]): 05[facility]11/22 - 06/10/22 [facility] [place] Adult [address] [place] [address]- Encounter Diagnosis Rash of both feet(Discharge Diagnosis) - 05/11/22 Allergies, Adverse Reactions, Alerts Substance Reaction Severity Status azithromycin Active macrolide antibiotics Active Dust Active ketolides Active Immunizations Given and Recorded Vaccine Date Status Refusal Reason tetanus-diphtheria toxoids (Td) 03/17/22 Given tetanus-diphtheria toxoids (Td) 04/08/02 Given SARS-CoV-2 (COVID-19) mRNA BNT-162b2 vac 08/17/21 Recorded [...] GIVEN 5Admin Note: [facility]U CLINIC 6Admin Note: [facility] VIS [id number] given 7Admin Note: given in clinic 8Result [...] FOR CONSTIPATION, # 7 supp, 11 Refills, [facility], 175.2, cm, 07/20/21 10:29:00 EDT, Height Start Date: 11/24/21 Status: Ordered chlorhexidine topical 0.12% liquid 15 mL = 0.018 Gm, By Mouth, 2 times a day, RINSE 1/2 OZ FOR 30 SECONDS AFTER BREAKFAST & BEFOREBEDTIME/EXPECTORATE, # 480 mL, 3 Refills, Maintenance, 10/26/18 9:26:16 EST, Liquid, PER DR FAY, 15mL By Mouth 2 times a day,Instr:RINSE 1/2 OZ FOR 30 SEC... Start Date: 10/26/18 Status: Ordered [facility] [employer] [facility] oral capsule 1 capsule, By Mouth, Daily, FOR INTESTINAL HEALTH., # 30 capsule, 11 Refills, [facility], 30, TAKE 1 CAPSULE BY MOUTH DAILY FOR INTESTINAL HEALTH, 175.2, cm, 07/20/21 10:29:00 EDT, Height Start Date: 07/23/21 Status: Ordered diazepam 10 mg oral tablet See Instructions, TAKE 1 TABLET BY MOUTH TWO HOURS PRIOR TO APPOINTMENT/PROCEDURE (EYE AND PODIATRYONLY) FOR ANXIETY, # 1 tablet, Refills 5, Tot. Refills 5, Maintenance, 01/19/22 12:24:00 EDT, Instructions Replace Required Details, Route to Pharmacy... Start Date: 01/19/22 Status: Ordered Disposable Enema 7 g-19 g rectal enema See Instructions, ONE ENEMA PER RECTUM DAY 5 WITHOUT BOWEL MOVEMENT / IF NO RESULTS NOTIFY MD / FORCONSTIPATION / IC FLEET ENEMA 7 GM - 19 GM, # 133 mL, 11 Refills, [facility], 5, ONE ENEMA PERRECTUM DAY 5 WITHOUT BOWEL MOVEMENT / IF NO RESULTS... Start Date: 03/16/22 Status: Ordered Ditropan XL 10 mg oral tablet, extended release 10, mg, 1, tablet, By Mouth, Daily, 0, 01/03/07 9:24:09, Print ANNE-MARIE Number, [id number], Constant Indicator Start Date: 01/03/07 Status: Ordered DOK 100 mg oral tablet See Instructions, TAKE 1 TABLET BY MOUTH TWICE DAILY (STOOL SOFTENER EQUIVALENT), # 60 tablet, 2 Refills, [facility], 175.2, cm, 04/15/22 9:44:00 EDT, Height Start Date: 05/06/22 Status: Ordered Eucerin cream Eucerin cream, See [...] Instructions Replace Required Details, Route toPharmacy Electronically, [facility], 175.2, cm... Start Date: 04/09/20 Status: Ordered fit to pt fit to pt, See Instructions, # 1 units, Refills 0, Tot. Refills 0, Maintenance, rigid cervical collar. Fit to pt., 06/21/18 15:59:47 EDT, Compound Start Date: 06/21/18 Status: Ordered Flomax 0.4 mg oral capsule 0.4, mg, 1, capsule, By Mouth, Daily, 0, 0, 01/03/07 9:24:42, Print ANNE-MARIE Number, [id number], Constant Indicator Start Date: 01/03/07 Status: Ordered [...] Gm, 11 Refills, Maintenance, 12/11/19 11:11:00 EST, [facility], APPLY TO EXTERNAL HEMMORRHOIDS TWICE DAILY PRN PER DR FREEMAN, 175.2, cm, 10/12/19 8:18:00 EST, Height,... Start Date: 12/11/19 Status: Ordered ibuprofen 400 mg oral tablet 400 mg, 1, tablet, By Mouth, 3 times a day, PRN, # 30 tablet, Refills 1, Tot. Refills 1, Maintenance, as needed for pain, 12/25/18 11:23:03 EST, Route to Pharmacy Electronically, [id number], [facility] Start Date: 12/25/18 Status: Ordered lactulose 10 gm/15 ml oral syrup = 20 Gm, By Mouth, Daily at bedtime, GIVE WITH., # 946 mL, 11 Refills, [facility], 31, TWO TABLESPOONFULS BY MOUTH DAILY [...] OR DBP<50, # 30 tablet, Refills 5, Tot. Refills 5, 02/02/22 11:10:00 EDT, Instructions Replace Required Details, Route to Pharmacy Electronicall... Start Date: 02/02/22 Status: Ordered loratadine 10 mg oral tablet 1, tablet, By Mouth, Daily, PRN, # 30 tablet, Refills 11, NEEDED FOR ALLERGY SYMPTOMS WATERY, ITCHY RED EYES, SNEEZING FOR ALLERGIC RHINITIS, Route to Pharmacy Electronically, [facility], 175.2, cm, 07/20/21 10:29:00 EDT, Height Start Date: 11/10/21 Status: Ordered Milk of Magnesia 8% oral suspension 30 mL, By Mouth, Daily at bedtime, FOR CONSTIPATION TEPT=7612 MG., # 900 mL, 5 Refills, [facility], 175.2, cm, 07/20/21 10:29:00 EDT, Height Start Date: 11/24/21 Status: Ordered omeprazole 40 mg oral enteric coated capsule See Instructions, TAKE 1 CAPSULE BY MOUTH DAILY FOR GERD IN AM, # 30 capsule, 2 Refills, [facility], 175.2, cm, 04/15/22 9:44:00 EDT, Height Start Date: 05/11/22 Status: Ordered polyethylene glycol 3350 oral powder for reconstitution See Instructions, MIX 17GM WITH 8 OUNCES OF WATER OR JUICE DAILY AT 5PM FOR CONSTIPATION (POLYETHYLENE GLYCOL), # 510 Gm, 11 Refills, [facility], 30, MIX 17GM WITH 8 OUNCES OF WATER OR JUICE DAILY AT 5PM FOR CONSTIPATION (POLYETHYLENE GLYCOL), 17... Start Date: 09/22/21 Status: Ordered pravastatin 40 mg oral tablet See Instructions, TAKE 1 TABLET BY MOUTH DAILY IN THE PM FOR HYPERLIPIDEMIA, # 30 tablet, 5 Refills, [facility], 175.2, cm, 04/15/22 9:44:00 EDT, Height Start Date: 05/25/22 Status: Ordered Robafen 100 mg/5 ml oral liquid 10 mL, By Mouth, 4 times a day, PRN NEEDED FOR COUGH/NOTIFY MD IF NO RELIEF AFTER 48 HRS / DOSE =, GUAIFENESIN (TUSSIN MUCUS-CONGEST 100MG/5ML., # 240 mL, 4 Refills, Acute 11/25/22 12:02:00 EST, 11/25/21 12:02:00 EST, [facility], 175.2, cm, 09... Start Date: 11/25/21 Stop Date: 11/25/22 Status: Ordered Shingrix intramuscular injection 0.5 mL, Intramuscular, Once, # 0.5 mL, 1 Refills, Soft Stop, 06/28/18 10:24:17 EDT Start Date: 06/28/18 Status: Ordered terbinafine 1% topical cream 1 application, Topically, 2 times a day, # 30 Gm, 1 Refills, Maintenance, 05/11/22 14:45:00 EDT, Cream, [facility], Partial fill upon patient request if [...] VITAMIN SUPPLEMENT, # 30 tablet, 5 Refills, [facility], 30, TAKE 1 TABLET BY MOUTH DAILY @ 9PM, [facility], 175.2, cm, 04/15/22 9:44:00 EDT, Height Start Date: 05/06/22 Status: Ordered Problem List Condition Effective Dates [...] Raynaud's phenomenon(Confirmed) Active UI (urinary incontinence)(Confirmed) Active 67467; repeat 2020; repeat 2017 3egd 2011 barretts, repeat 2014 4egd 2009 positive barretts repeat 2011 5C2 6colonoscopy 2006 nl repeat 2016 7repeat 2024 [id number] Diagnosis Diagnosis Type Effective Dates Health Status Cl inical Service Informant Rash of both feet Discharge Diagnosis 05/11/22 Non-Specified Social History Social History Type Response Smoking Status Never smoker entered on: 06/25/16 Sex
--- OUTSIDE RECORDS SUMMARY | 2023-06-15 11:53 | XMS_ITS | Continuity of Care Document ---
Author Name Unknown Organization [facility] Address [address] [place] [address]- Care Team Providers Care Knockout Man Name Role Phone Brandon Freeman MD Primary Care Physician [facility] 11[facility]22 - 12/04/22 [facility] Adult [address] [place] [address]- Allergies, Adverse Reactions, Alerts Substance Reaction Severity Status azithromycin Active macrolide antibiotics Active Dust Active ketolides Active Immunizations Given and Recorded Vaccine Date Status Refusal Reason [id number] 12y+ bivalent booster vax 07/22/22 Recorded tetanus-diphtheria [...] clinic 5Admin Note: FLU CLINIC 6Admin Note: [facility] VIS [id number] given 7Admin Note: given in clinic 8Result Comment: Pt. already received on 08/07/2015 Medications acetaminophen 325 mg oral tablet 2, tablet, By Mouth, Every 6 hours, PRN, CTCV=[id number]., # 60 tablet, Refills 0, Maintenance, NEEDED FOR FEVER>100.5 OR PAIN SHOWN BY FACIAL GRIMACE NOTIFY MD IF USED >, 11/12/22 9:30:00 EST, Route to Pharmacy Electronically, [facility], 175.2, c... Start Date: 11/12/22 Stop Date: 11/15/22 Status: Ordered bacitracin zinc 500 units/g topical ointment See Instructions, APPLY SMALL AMOUNT TOPICALLY TO SUPERFICIAL WOUNDS 4 TIMES A DAY NEEDED AN ANTIBACTERIAL / CALL MD IF USING FOR MORE THAN 7 DAYS, # 28 Gm, 11 Refills, Maintenance, 11/09/22 15:57:00 EST, [facility], 7, APPLY SMALL AMOUNT T... [...] FOR CONSTIPATION, # 7 supp, 11 Refills, [facility], 175.2, cm, 07/20/21 10:29:00 EDT, [...] 30 capsule, 11 Refills, Maintenance, 07/29/2211:36:00 EDT, [facility], 30, 1 capsule By Mouth Daily,Instr:FOR [...] 19 GM, # 133 mL, 11 Refills, [facility], 5, ONE ENEMA PERRECTUM DAY 5 WITHOUT BOWEL MOVEMENT / IF NO RESULTS... Start Date: 03/16/22 Status: Ordered Ditropan XL 10 mg oral tablet, extended release 10, mg, 1, tablet, By Mouth, Daily, 0, 01/03/07 9:24:09, Print ANNE-MARIE Number, [id number], Constant Indicator Start Date: 01/03/07 Status: Ordered DOK 100 mg oral tablet See Instructions, TAKE 1 TABLET BY MOUTH TWICE DAILY (STOOL SOFTENER EQUIVALENT), # 60 tablet, 5 Refills, Maintenance, 08/12/22 9:24:00 EDT, [facility], 175.2, cm, 07/27/22 11:37:00 EDT, Height Start Date: 08/12/22 Status: Ordered Eucerin cream Eucerin cream, See [...] Instructions Replace Required Details, Route toPharmacy Electronically, [facility], 175.2, cm... Start Date: 04/09/20 Status: Ordered fit to pt fit to pt, See Instructions, # 1 units, Refills 0, Tot. Refills 0, Maintenance, rigid cervical collar. Fit to pt., 06/21/18 15:59:47 EDT, Compound Start Date: 06/21/18 Status: Ordered Flomax 0.4 mg oral capsule 0.4, mg, 1, capsule, By Mouth, Daily, 0, 0, 01/03/07 9:24:42, Print ANNE-MARIE Number, [id number], Constant Indicator Start Date: 01/03/07 Status: Ordered [...] Gm, 11 Refills, Maintenance, 12/11/19 11:11:00 EST, [facility], APPLY TO EXTERNAL HEMMORRHOIDS TWICE DAILY PRN PER DR FREEMAN, 175.2, cm, 10/12/19 8:18:00 EST, Height,... Start Date: 12/11/19 Status: Ordered ibuprofen 400 mg oral tablet 400 mg, 1, tablet, By Mouth, 3 times a day, PRN, # 30 tablet, Refills 1, Tot. Refills 1, Maintenance, as needed for pain, 12/25/18 11:23:03 EST, Route to Pharmacy Electronically, [id number], [facility] Start Date: 12/25/18 Status: Ordered lactulose 10 gm/15 ml oral syrup = 20 Gm, By Mouth, Daily at bedtime, # 946 mL, 11 Refills, Maintenance, 09/01/22 7:18:00 EDT, [facility], 31, 20 Gm By Mouth Daily [...] FOR ALLERGIC RHINITIS, Route to Pharmacy Electronically, [facility], 175.2, cm, 07/20/21 10:29:00 EDT, Height Start Date: 11/10/21 Status: Ordered Milk of Magnesia 8% oral suspension 30 mL, By Mouth, Daily at bedtime, FOR CONSTIPATION WLMS=1845 MG., # 900 mL, 5 Refills, Maintenance, 07/01/22 13:24:00 EDT, [facility], 175.2, cm, 04/15/22 9:44:00 EDT, Height Start Date: 07/01/22 Status: Ordered omeprazole 40 mg oral enteric coated capsule See Instructions, TAKE 1 CAPSULE BY MOUTH DAILY FOR GERD IN AM, # 30 capsule, 2 Refills, Maintenance, 11/04/22 10:43:00 EST, [facility], 175.2, cm, 07/27/22 11:37:00 EDT, Height Start Date: 11/04/22 Status: Ordered polyethylene glycol 3350 oral powder for reconstitution See Instructions, MIX 17GM WITH 8 OUNCES OF WATER OR JUICE DAILY AT 5PM FOR CONSTIPATION (POLYETHYLENE GLYCOL), # 510 Gm, 11 Refills, Physician Stop 10/07/23 11:17:00 EST, 10/07/22 11:17:00 EST, [facility], 30, MIX 17GM WITH 8 OUNCES OF WATER OR... Start Date: 10/07/22 Stop Date: 10/07/23 Status: Ordered pravastatin 40 mg oral tablet See Instructions, TAKE 1 TABLET BY MOUTH DAILY IN THE PM FOR HYPERLIPIDEMIA, # 30 tablet, 5 Refills, Maintenance, 11/18/22 15:41:00 EST, [facility], 175.2, cm, 07/27/22 11:37:00 EDT, [...] 30 tablet, 5 Refills, 10/05/22 11:07:00 EST, [facility], 30, TAKE 1 TABLET BY MOUTH [...] Confirmed Active UI (urinary incontinence) Confirmed Active 15195; repeat 2020 04196; repeat 2018 3egd 2012 barretts, repeat 2014 4egd 2009 positive barretts repeat 2012 5C2 6colonoscopy 2006 nl repeat 2016 7repeat 2024 [id number] Social History Social History Type Response Smoking Status Never smoker entered on: 06/25/16 Sex Patient Care team information Care Team Personnel Name: Hannah Roque RN Position: S RN Member Role: Primary Care Nurse Name: Reggie Godinez RN Position: S RN Member Role: Primary Care Nurse Name: Christiane Cedillo RN Position: S RN Member Role: Primary Care Nurse Name: Brandon Freeman MD Position: [facility] Primary Care Physician Member Role: PCP Address: Address: [address] [place] [address]- [place] Name: Janeen Hoskins RN Position: [facility] [...] Member Role: Primary Care Nurse Address: Address: [address] [place] [address]- [place] Name: Fay Morton RN Position: [facility] RN Member Role: Primary Care Nurse Name: Massiel Lu RN Position: [facility] RN Member Role: Primary Care Nurse Name: Lurdes Mujica RN Position: [facility] RN Member Role: Primary Care Nurse Name: Brandie Horvath RN Position: [facility] Aircraft Log Clerk Member Role: Primary Care Nurse Name: Claribel Howe RN Position: [facility] RN Member Role: Primary Care Nurse Care Team Related Persons Name: JOHAN PERKINS Name: DAWOOD DE LOS SANTOS Address: home [address] [place] [place] [id number] Name: JENNIFER JUAREZ Address: home [address] [place] [address]
--- OUTSIDE RECORDS SUMMARY | 2023-06-15 11:53 | XMS_ITS | Continuity of Care Document ---
Author Name Unknown Organization [facility] Address [address] [place] [address]- Care Team Providers Care Sander Wooden Pencils Name Role Phone Brandon Freeman MD Primary Care Physician [facility]22 - 12/18/22 [facility] Adult [address] [place] [address]- Allergies, Adverse Reactions, Alerts Substance Reaction Severity Status azithromycin Active macrolide antibiotics Active Dust Active ketolides Active Immunizations Given and Recorded Vaccine Date Status Refusal Reason [id number] 12y+ bivalent booster vax 07/22/22 Recorded tetanus-diphtheria [...] clinic 5Admin Note: FLU CLINIC 6Admin Note: [facility] VIS [id number] given 7Admin Note: given in clinic 8Result Comment: Pt. already received on 08/07/2015 Medications acetaminophen 325 mg oral tablet 2, tablet, By Mouth, Every 6 hours, PRN, BSGN=215QM., # 60 tablet, Refills 0, Maintenance, NEEDED FOR FEVER>100.5 OR PAIN SHOWN BY FACIAL GRIMACE NOTIFY MD IF USED >, 11/12/22 9:30:00 EST, Route to Pharmacy Electronically, [facility], 175.2, c... Start Date: 11/12/22 Stop Date: 11/15/22 Status: Ordered bacitracin zinc 500 units/g topical ointment See Instructions, APPLY SMALL AMOUNT TOPICALLY TO SUPERFICIAL WOUNDS 4 TIMES A DAY NEEDED AN ANTIBACTERIAL / CALL MD IF USING FOR MORE THAN 7 DAYS, # 28 Gm, 11 Refills, Maintenance, 11/09/22 15:57:00 EST, [facility], 7, APPLY SMALL AMOUNT T... Start [...] supp, 11 Refills, Maintenance, 12/16/22 13:35:00 EST, [facility], 175.2, cm, 07/27/22 11:37:00 EDT, Height [...] 30 capsule, 11 Refills, Maintenance, 07/29/2211:36:00 EDT, [facility], 30, 1 capsule By Mouth Daily,Instr:FOR [...] 19 GM, # 133 mL, 11 Refills, [facility], 5, ONE ENEMA PERRECTUM DAY 5 WITHOUT BOWEL MOVEMENT / IF NO RESULTS... Start Date: 03/16/22 Status: Ordered Ditropan XL 10 mg oral tablet, extended release 10, mg, 1, tablet, By Mouth, Daily, 0, 01/03/07 9:24:09, Print ANNE-MARIE Number, [id number], Constant Indicator Start Date: 01/03/07 Status: Ordered DOK 100 mg oral tablet See Instructions, TAKE 1 TABLET BY MOUTH TWICE DAILY (STOOL SOFTENER EQUIVALENT), # 60 tablet, 5 Refills, Maintenance, 08/12/22 9:24:00 EDT, [facility], 175.2, cm, 07/27/22 11:37:00 EDT, Height [...] Instructions Replace Required Details, Route toPharmacy Electronically, [facility], 175.2, cm... Start Date: 04/09/20 Status: Ordered fit to pt fit to pt, See Instructions, # 1 units, Refills 0, Tot. Refills 0, Maintenance, rigid cervical collar. Fit to pt., 06/21/18 15:59:47 EDT, Compound Start Date: 06/21/18 Status: Ordered Flomax 0.4 mg oral capsule 0.4, mg, 1, capsule, By Mouth, Daily, 0, 0, 01/03/07 9:24:42, Print ANNE-MARIE Number, [id number], Constant Indicator Start Date: 01/03/07 Status: Ordered [...] Gm, 11 Refills, Maintenance, 12/11/19 11:11:00 EST, [facility], APPLY TO EXTERNAL HEMMORRHOIDS TWICE DAILY PRN PER DR FREEMAN, 175.2, cm, 10/12/19 8:18:00 EST, Height,... Start Date: 12/11/19 Status: Ordered ibuprofen 400 mg oral tablet 400 mg, 1, tablet, By Mouth, 3 times a day, PRN, # 30 tablet, Refills 1, Tot. Refills 1, Maintenance, as needed for pain, 12/25/18 11:23:03 EST, Route to Pharmacy Electronically, [id number], [facility] Start Date: 12/25/18 Status: Ordered lactulose 10 gm/15 ml oral syrup = 20 Gm, By Mouth, Daily at bedtime, # 946 mL, 11 Refills, Maintenance, 09/01/22 7:18:00 EDT, [facility], 31, 20 Gm By Mouth Daily [...] FOR ALLERGIC RHINITIS, Route to Pharmacy Electronically, [facility], 175.2, cm, 07/20/21 10:29:00 EDT, Height Start Date: 11/10/21 Status: Ordered Milk of Magnesia 8% oral suspension 30 mL, By Mouth, Daily at bedtime, FOR CONSTIPATION YARZ=5440 MG., # 900 mL, 5 Refills, Maintenance, 07/01/22 13:24:00 EDT, [facility], 175.2, cm, 04/15/22 9:44:00 EDT, Height Start Date: 07/01/22 Status: Ordered omeprazole 40 mg oral enteric coated capsule See Instructions, TAKE 1 CAPSULE BY MOUTH DAILY FOR GERD IN AM, # 30 capsule, 2 Refills, Maintenance, 11/04/22 10:43:00 EST, [facility], 175.2, cm, 07/27/22 11:37:00 EDT, Height Start Date: 11/04/22 Status: Ordered polyethylene glycol 3350 oral powder for reconstitution See Instructions, MIX 17GM WITH 8 OUNCES OF WATER OR JUICE DAILY AT 5PM FOR CONSTIPATION (POLYETHYLENE GLYCOL), # 510 Gm, 11 Refills, Physician Stop 10/07/23 11:17:00 EST, 10/07/22 11:17:00 EST, [facility], 30, MIX 17GM WITH 8 OUNCES OF WATER OR... Start Date: 10/07/22 Stop Date: 10/07/23 Status: Ordered pravastatin 40 mg oral tablet See Instructions, TAKE 1 TABLET BY MOUTH DAILY IN THE PM FOR HYPERLIPIDEMIA, # 30 tablet, 5 Refills, Maintenance, 11/18/22 15:41:00 EST, [facility], 175.2, cm, 07/27/22 11:37:00 EDT, Height [...] Confirmed Active UI (urinary incontinence) Confirmed Active 46412; repeat 2020 72766; repeat 2018 3egd 2012 barretts, repeat 2014 4egd 2010 positive barretts repeat 2011 5C2 6colonoscopy 2006 nl repeat 2017 7repeat 2024 [id number] Social History Social History Type Response Smoking Status Never smoker entered on: 06/25/16 Sex Patient Care team information Care Team Personnel Name: Hannah Roque RN Position: S RN Member Role: Primary Care Nurse Name: Reggie Godinez RN Position: S RN Member Role: Primary Care Nurse Name: Christiane Cedillo RN Position: [facility] RN Member Role: Primary Care Nurse Name: Brandon Freeman MD Position: [facility] Primary Care Physician Member Role: PCP Address: Address: [address] [place] [phone]- [place] Name: Janeen Hoskins RN Position: [facility] RN Member Role: Primary Care Nurse Name: Cydney Mckinney RN Position: [facility] RN Member Role: Primary Care Nurse Name: Frantz Mi III, RN Position: [facility] RN Member Role: Primary Care Nurse Name: Tahmina CHIEF DEPUTY, Cate Melgar Position: Reference Physician Member Role: Primary Care Nurse Address: Address: [address] [place] [address]- [place] Name: Fay Morton RN Position: [facility] RN Member Role: Primary Care Nurse Name: Massiel Lu RN Position: [facility] RN Member Role: Primary Care Nurse Name: Lurdes Mujica RN Position: [facility] RN Member Role: Primary Care Nurse Name: Brandie Horvath RN Position: [facility] Documentation Improvement Specialist Member Role: Primary Care Nurse Name: Claribel Howe RN Position: [facility] RN Member Role: Primary Care Nurse Care Team Related Persons Name: JOHAN PERKINS Name: DAWOOD DE LOS SANTOS Address: home [address] [place] [id number] Name: JENNIFER JUAREZ Address: [address] [place] [address]
--- OUTSIDE RECORDS SUMMARY | 2023-06-15 11:53 | XMS_ITS | Continuity of Care Document ---
Author Name Unknown Organization [facility] Chace lt Address [address] [place] [address]- Care Team Providers Care Manpower Development Manager Name Role Phone Brandon Freeman MD Primary Care Physician [phone] [facility]counter [facility] Date[facility]): 09/14/22 - 10/14/22 [facility] Adult [address] [place] [address]- Allergies, Adverse Reactions, Alerts Substance Reaction Severity Status azithromycin Active macrolide antibiotics Active Dust Active ketolides Active Immunizations Given and Recorded Vaccine Date Status Refusal Reason [id number] 12y+ bivalent booster vax 07/22/22 Recorded tetanus-diphtheria [...] clinic 5Admin Note: [facility]U CLINIC 6Admin Note: [employer] [facility] VIS [phone] given 7Admin Note: given in clinic 8Result Comment: Pt. already received on 08/07/2015 Medications bacitracin zinc 500 units/g topical ointment See Instructions, APPLY SMALL AMOUNT TOPICALLY TO SUPERFICIAL WOUNDS 4 TIMES A DAY NEEDED AN ANTIBACTERIAL / CALL MD IF USING FOR MORE THAN 7 DAYS, # 1 Gm, 11 Refills, Acute, [facility], 7, APPLY SMALL AMOUNT TOPICALLY TO [...] FOR CONSTIPATION, # 7 supp, 11 Refills, [facility], 175.2, cm, 07/20/21 10:29:00 EDT, Height [...] 30 capsule, 11 Refills, Maintenance, 07/29/2211:36:00 EDT, [facility], 30, 1 capsule By Mouth Daily,Instr:FOR [...] 19 GM, # 133 mL, 11 Refills, [facility], 5, ONE ENEMA PERRECTUM DAY 5 WITHOUT BOWEL MOVEMENT / IF NO RESULTS... Start Date: 03/16/22 Status: Ordered Ditropan XL 10 mg oral tablet, extended release 10, mg, 1, tablet, By Mouth, Daily, 0, 01/03/07 9:24:09, Print ANNE-MARIE Number, [id number], Constant Indicator Start Date: 01/03/07 Status: Ordered DOK 100 mg oral tablet See Instructions, TAKE 1 TABLET BY MOUTH TWICE DAILY (STOOL SOFTENER EQUIVALENT), # 60 tablet, 5 Refills, Maintenance, 08/12/22 9:24:00 EDT, [facility], 175.2, cm, 07/27/22 11:37:00 EDT, Height [...] Instructions Replace Required Details, Route toPharmacy Electronically, [facility], 175.2, cm... Start Date: 04/09/20 Status: Ordered fit to pt fit to pt, See Instructions, # 1 units, Refills 0, Tot. Refills 0, Maintenance, rigid cervical collar. Fit to pt., 06/21/18 15:59:47 EDT, Compound Start Date: 06/21/18 Status: Ordered Flomax 0.4 mg oral capsule 0.4, mg, 1, capsule, By Mouth, Daily, 0, 0, 01/03/07 9:24:42, Print ANNE-MARIE Number, [id number], Constant Indicator Start Date: 01/03/07 Status: Ordered hydrochlorothiazide 25 mg oral tablet See Instructions, TAKE 1 TAB BY MOUTH DAILY IN AM FOR HTN/MONITOR BP/IF SYSTOLIC MORE THAN 160, DIASTOLIC MORE THAN 100, SYSTOLIC LESS THAN 90, OR DIASTOLIC LESS THAN 50 CALLME, # 30 tablet, Refills 5, Maintenance, 09/16/22 [...] Gm, 11 Refills, Maintenance, 12/11/19 11:11:00 EST, [facility], APPLY TO EXTERNAL HEMMORRHOIDS TWICE DAILY PRN PER DR FREEMAN, 175.2, cm, 10/12/19 8:18:00 EST, Height,... Start Date: 12/11/19 Status: Ordered ibuprofen 400 mg oral tablet 400 mg, 1, tablet, By Mouth, 3 times a day, PRN, # 30 tablet, Refills 1, Tot. Refills 1, Maintenance, as needed for pain, 12/25/18 11:23:03 EST, Route to Pharmacy Electronically, [id number], [facility] Start Date: 12/25/18 Status: Ordered lactulose 10 gm/15 ml oral syrup = 20 Gm, By Mouth, Daily at bedtime, # 946 mL, 11 Refills, Maintenance, 09/01/22 7:18:00 EDT, [facility], 31, 20 Gm By Mouth Daily at bedtime, 175.2, cm, 07/27/22 11:37:00 EDT, Height Start Date: 09/01/22 Stop Date: 09/01/23 Status: Ordered lisinopril 20 mg oral tablet See Instructions, TAKE 1 TABLET BY MOUTH DAILY IN THE AM FOR HTN / CALL MD IF SBP>160 OR DBP>100 OR SBP<90 OR DBP<50, # 30 tablet, Refills 2, Tot. Refills 2, Maintenance, 08/10/22 14:47:00 EDT, Instructions Replace Required Details, Route to Pharmacy... Start Date: 08/10/22 Status: Ordered loratadine 10 mg oral tablet 1, tablet, By Mouth, Daily, PRN, # 30 tablet, Refills 11, NEEDED FOR ALLERGY SYMPTOMS WATERY, ITCHY RED EYES, SNEEZING FOR ALLERGIC RHINITIS, Route to Pharmacy Electronically, [facility], 175.2, cm, 07/20/21 10:29:00 EDT, Height Start Date: 11/10/21 Status: Ordered Milk of Magnesia 8% oral suspension 30 mL, By Mouth, Daily at bedtime, FOR CONSTIPATION EKWH=9519 MG., # 900 mL, 5 Refills, Maintenance, 07/01/22 13:24:00 EDT, [facility], 175.2, cm, 04/15/22 9:44:00 EDT, Height Start Date: 07/01/22 Status: Ordered omeprazole 40 mg oral enteric coated capsule See Instructions, TAKE 1 CAPSULE BY MOUTH DAILY FOR GERD IN AM, # 30 capsule, 2 Refills, Maintenance, 08/05/22 12:48:00 EDT, [facility], 175.2, cm, 07/27/22 11:37:00 EDT, Height Start Date: 08/05/22 Status: Ordered polyethylene glycol 3350 oral powder for reconstitution See Instructions, MIX 17GM WITH 8 OUNCES OF WATER OR JUICE DAILY AT 5PM FOR CONSTIPATION (POLYETHYLENE GLYCOL), # 510 Gm, 11 Refills, Physician Stop 10/07/23 11:17:00 EST, 10/07/22 11:17:00 EST, [facility], 30, MIX 17GM WITH 8 OUNCES OF WATER OR... Start Date: 10/07/22 Stop Date: 10/07/23 Status: Ordered pravastatin 40 mg oral tablet See Instructions, TAKE 1 TABLET BY MOUTH DAILY IN THE PM FOR HYPERLIPIDEMIA, # 30 tablet, 5 Refills, [facility], 175.2, cm, 04/15/22 9:44:00 EDT, Height Start Date: 05/25/22 Status: Ordered Robafen 100 mg/5 ml oral liquid 10 mL, By Mouth, 4 times a day, PRN NEEDED FOR COUGH/NOTIFY MD IF NO RELIEF AFTER 48 HRS / DOSE =, GUAIFENESIN (TUSSIN MUCUS-CONGEST 100MG/5ML., # 240 mL, 4 Refills, Acute 11/25/22 12:02:00 EST, 11/25/21 12:02:00 EST, [facility], 175.2, cm, 09... Start Date: 11/25/21 Stop Date: 11/25/22 Status: Ordered Shingrix intramuscular injection 0.5 mL, Intramuscular, Once, # 0.5 mL, 1 Refills, Soft Stop, 06/28/18 10:24:17 EDT Start Date: 06/28/18 Status: Ordered terbinafine 1% topical cream 1 application, Topically, 2 times a day, # 30 Gm, 1 Refills, Maintenance, 05/11/22 14:45:00 EDT, Cream, [facility], Partial fill upon patient request if [...] 30 tablet, 5 Refills, 10/05/22 11:07:00 EST, [facility], 30, TAKE 1 TABLET BY MOUTH [...] Confirmed Active UI (urinary incontinence) Confirmed Active 05007; repeat 2020 82349; repeat 2018 3egd 2012 barretts, repeat 2014 4egd 2010 positive barretts repeat 2012 5C2 6colonoscopy 2006 nl repeat 2017 7repeat 2024 [id number] Social History Social History Type Response Smoking Status Never smoker entered on: 06/25/16 Sex Patient Care team information Care Team Personnel Name: Hannah Roque RN Position: S RN Member Role: Primary Care Nurse Name: Reggie Godinez RN Position: [facility] RN Member Role: Primary Care Nurse Name: Christiane Cedillo RN Position: S RN Member Role: Primary Care Nurse Name: Brandon Freeman MD Position: [facility] Primary Care Physician Member Role: PCP Address: Address: [address] [place] [address]- [place] Name: Janeen Hoskins RN Position: [facility] RN Member Role: Primary Care Nurse Name: Cydney Mckinney RN Position: [facility] RN Member Role: Primary Care Nurse Name: Frantz Mi III, RN Position: [facility] RN Member Role: Primary Care Nurse Name: Cate Martel NP Position: Reference Physician Member Role: Primary Care Nurse Address: Address: [address] [place] [address]- [place] Name: Fay Morton RN Position: [facility] RN Member Role: Primary Care Nurse Name: Massiel Lu RN Position: [facility] RN Member Role: Primary Care Nurse Name: Lurdes Mujica RN Position: [facility] RN Member Role: Primary Care Nurse Name: Brandie Horvath RN Position: [facility] Vehicle Maintenance Technician Member Role: Primary Care Nurse Name: Claribel Howe RN Position: [facility] RN Member Role: Primary Care Nurse Care Team Related Persons Name: JOHAN PERKINS Name: DAWOOD DE LOS SANTOS Address: home [address] [address] Name: JENNIFER JUAREZ Address: [address] [place] [address]
--- OUTSIDE RECORDS SUMMARY | 2023-06-15 11:53 | XMS_ITS | Continuity of Care Document ---
Author Name Unknown Organization [facility] lt Address [address] [place] [address]- Care Team Providers Care Shuttle Van Driver Name Role Phone Brandon Freeman MD Primary Care Physician [facility]20 - 07/20/20 [facility] Adult [address] [place] [address]- [facility] Allergies, Adverse Reactions, Alerts Substance Reaction Severity [...] GIVEN 3Admin Note: [facility] CLINIC 4Admin Note: [facility] VIS [phone] given 5Admin Note: given by lisy short [...] Daily, FOR INTESTINAL HEALTH., # 30 capsule, 4 Refills, Acute, 02/28/20 12:34:00 EDT, [facility], 30, TAKE 1 CAPSULE BY MOUTH DAILY FOR INTESTINAL HEALTH, 175.2, cm, 10/12/19 8:18:00 EST, Height, 73.2, kg, 03/05/18 17:34:00 E... Start Date: 02/28/20 Status: Ordered diazepam 10 mg oral tablet See Instructions, PRN, 1 tablet By Mouth 1 hour prior to eye exam per Dr. Freeman, # 1 tablet, Refills 5, Tot. Refills 5, Maintenance, for anxiety, 11/05/19 10:38:00 EST, Instructions Replace Required Details, Route to Pharmacy Electronically, [facility] Start Date: 11/05/19 Status: Ordered Ditropan XL 10 mg oral tablet, extended release 10, mg, 1, tablet, By Mouth, Daily, 0, 01/03/07 9:24:09, Print ANNE-MARIE Number, [id number], Constant Indicator Start Date: 01/03/07 Status: Ordered DOK 100 mg oral tablet See Instructions, TAKE 1 TABLET BY MOUTH TWICE DAILY (STOOL SOFTENER EQUIVALENT), # 60 tablet, 5 Refills, Soft Stop, 05/08/20 13:17:00 EDT, [facility], 175.2, cm, 10/12/19 8:18:00 EST, Height, [...] Instructions Replace Required Details, Route toPharmacy Electronically, [facility], 175.2, cm... Start Date: 04/09/20 Status: [...] 0, 0, 01/03/07 9:24:42, Print ANNE-MARIE Number, [id number], Constant Indicator Start Date: 01/03/07 Status: Ordered [...] 12/25/18 11:23:03 EST, Route to Pharmacy Electronically, [id number], [facility] Start Date: 12/25/18 Status: Ordered lactulose 10 gm/15 ml oral syrup See Instructions, # 946 mL, Refills 9 Tot. Refills 9, TWO TABLESPOONFULS BY MOUTH DAILY AT BEDTIME FOR CONSTIPATION / GIVE WITH LIQUIDS JUICE/WATER / 2 TBSP = 30 ML DOSE = 20 GRAMS, [facility] Start Date: 08/10/19 Status: Ordered loratadine 10 mg oral tablet 10 mg, 1, tablet, By Mouth, Daily, PER DR FREEMAN, # 30 tablet, Refills 11, Tot. Refills 11, 02/19/20 9:46:00 EDT, Route to Pharmacy Electronically, [facility], 175.2, cm, 10/12/19 8:18:00 EST, Height, 73.2, kg, 03/05/18 17:34:00 EDT, Dry Weight Start Date: 02/19/20 Status: Ordered Milk of Magnesia 8% oral suspension 30 mL = 2.4 Gm, By Mouth, Daily at bedtime, # 900 mL, 5 Refills, Maintenance, 02/20/20 12:44:00 EDT, [facility], 175.2, cm, 10/12/19 8:18:00 EST, Height, 73.2, kg, 03/05/18 17:34:00 EDT, Dry Weight Start Date: 02/20/20 Stop Date: 08/18/20 Status: Ordered omeprazole 20 mg oral enteric coated capsule 1 capsule = 20 mg, By Mouth, 2 times a day, # 30 capsule, 11 Refills, Soft Stop, 05/07/20 17:03:00 EDT, [facility], 175.2, cm, 10/12/19 8:18:00 EST, Height, Dry Weight Start Date: 05/07/20 Status: Ordered polyethylene glycol 3350 oral powder for reconstitution = 17 Gm, By Mouth, Daily, dissolve in water or juice, # 527 Gm, 11 Refills, Maintenance, 07/18/19 15:15:36 EDT, 17 Gm By Mouth Daily,Instr:dissolve in water or juice Start Date: 07/18/19 Status: Ordered pravastatin 40 mg oral tablet 1 tablet = 40 mg, By Mouth, Daily, # 30 tablet, 5 Refills, Soft Stop, 05/20/20 11:37:00 EDT, [facility], 175.2, cm, 10/12/19 8:18:00 EST, Height, Dry [...] tablet, Refills 1, Tot. Refills 1, Maintenance, 02/12/20 8:43:00 EDT, Route to Pharmacy Electronically, [facility], 175.2, cm, 10/12/19 8:18:00 EST, Height, 73.2, kg, 03/05/18 17:34:00 EDT, Dry Weight Start Date: 02/12/20 Status: Ordered Problem List Condition Effective Dates [...] Raynaud's phenomenon(Confirmed) Active UI (urinary incontinence)(Confirmed) Active 76159; repeat 2020; repeat 2017 3egd 2012 barretts, repeat 2014 4egd 2010 positive barretts repeat 2012 5C2 6colonoscopy 2007 nl repeat 2016 7repeat 2024 [id number] Social History Social History Type Response Smoking Status Never smoker entered on: 06/25/16 Sex
--- OUTSIDE RECORDS SUMMARY | 2023-06-15 11:53 | XMS_ITS | Continuity of Care Document ---
Author Name Unknown Organization [facility] Chace lt Address [address] [place] [address]- Care Team Providers Care Rabbit Dresser Name Role Phone Brandon Freeman MD Primary Care Physician [phone] [facility]20 - 06/19/20 [facility] Adult [address] [place] [address]- [facility] Allergies, Adverse Reactions, Alerts Substance Reaction Severity [...] GIVEN 3Admin Note: [facility]U CLINIC 4Admin Note: [facility] VIS [phone] given 5Admin Note: given by lisy short [...] CONSTIPATION, # 7 supp, 11 Refills, Acute, [facility], 175.2, cm, 10/12/19 8:18:00 EST, Height [...] capsule, 4 Refills, Acute, 02/28/20 12:34:00 EDT, [facility], 30, TAKE 1 CAPSULE BY MOUTH [...] Replace Required Details, Route to Pharmacy Electronically, [facility] Start Date: 11/05/19 Status: Ordered Ditropan XL 10 mg oral tablet, extended release 10, mg, 1, tablet, By Mouth, Daily, 0, 01/03/07 9:24:09, Print ANNE-MARIE Number, [id number], Constant Indicator Start Date: 01/03/07 Status: Ordered DOK 100 mg oral tablet See Instructions, TAKE 1 TABLET BY MOUTH TWICE DAILY (STOOL SOFTENER EQUIVALENT), # 60 tablet, 5 Refills, Soft Stop, 05/08/20 13:17:00 EDT, [facility], 175.2, cm, 10/12/19 8:18:00 EST, Height, [...] Instructions Replace Required Details, Route toPharmacy Electronically, [facility], 175.2, cm... Start Date: 04/09/20 Status: [...] 0, 0, 01/03/07 9:24:42, Print ANNE-MARIE Number, [id number], Constant Indicator Start Date: 01/03/07 Status: Ordered [...] 12/25/18 11:23:03 EST, Route to Pharmacy Electronically, [id number], [facility] Start Date: 12/25/18 Status: Ordered lactulose 10 gm/15 ml oral syrup See Instructions, # 946 mL, Refills 9 Tot. Refills 9, TWO TABLESPOONFULS BY MOUTH DAILY AT BEDTIME FOR CONSTIPATION / GIVE WITH LIQUIDS JUICE/WATER / 2 TBSP = 30 ML DOSE = 20 GRAMS, [facility] Start Date: 08/10/19 Status: Ordered loratadine 10 mg oral tablet 10 mg, 1, tablet, By Mouth, Daily, PER DR FREEMAN, # 30 tablet, Refills 11, Tot. Refills 11, 02/19/20 9:46:00 EDT, Route to Pharmacy Electronically, [facility], 175.2, cm, 10/12/19 8:18:00 EST, Height, 73.2, kg, 03/05/18 17:34:00 EDT, Dry Weight Start Date: 02/19/20 Status: Ordered Milk of Magnesia 8% oral suspension 30 mL = 2.4 Gm, By Mouth, Daily at bedtime, # 900 mL, 5 Refills, Maintenance, 02/20/20 12:44:00 EDT, [facility], 175.2, cm, 10/12/19 8:18:00 EST, Height, 73.2, kg, 03/05/18 17:34:00 EDT, Dry Weight Start Date: 02/20/20 Stop Date: 08/18/20 Status: Ordered omeprazole 20 mg oral enteric coated capsule 1 capsule = 20 mg, By Mouth, 2 times a day, # 30 capsule, 11 Refills, Soft Stop, 05/07/20 17:03:00 EDT, [facility], 175.2, cm, 10/12/19 8:18:00 EST, Height, [...] Raynaud's phenomenon(Confirmed) Active UI (urinary incontinence)(Confirmed) Active 15222; repeat 2020; repeat 2018 3egd 2012 barretts, repeat 2014 4egd 2010 positive barretts repeat 2012 5C2 6colonoscopy 2007 repeat 2016 7repeat 2024 [id number] Social History Social History Type Response Smoking Status Never smoker entered on: 06/25/16 Sex
--- OUTSIDE RECORDS SUMMARY | 2023-06-15 11:53 | XMS_ITS | Continuity of Care Document ---
Author Name Unknown Organization [facility] Chace lt Address [address] [place] [address]- Care Team Providers Care Science Technician Name Role Phone Brandon Freeman MD Primary Care Physician [facility]): [facility] - 06[facility]05/20 [facility] Adult [address] [place] [address]- [facility] Allergies, Adverse Reactions, Alerts Substance Reaction Severity [...] GIVEN 3Admin Note: FLU CLINIC 4Admin Note: [facility] VIS [phone] given 5Admin Note: given by lisy short [...] CONSTIPATION, # 7 supp, 11 Refills, Acute, [facility], 175.2, cm, 10/12/19 8:18:00 EST, Height [...] capsule, 4 Refills, Acute, 02/28/20 12:34:00 EDT, [facility], 30, TAKE 1 CAPSULE BY MOUTH [...] Replace Required Details, Route to Pharmacy Electronically, [facility] Start Date: 11/05/19 Status: Ordered Ditropan XL 10 mg oral tablet, extended release 10, mg, 1, tablet, By Mouth, Daily, 0, 01/03/07 9:24:09, Print ANNE-MARIE Number, [id number], Constant Indicator Start Date: 01/03/07 Status: Ordered DOK 100 mg oral tablet See Instructions, TAKE 1 TABLET BY MOUTH TWICE DAILY (STOOL SOFTENER EQUIVALENT), # 60 tablet, 5 Refills, Soft Stop, 05/08/20 13:17:00 EDT, [facility], 175.2, cm, 10/12/19 8:18:00 EST, Height, [...] Instructions Replace Required Details, Route toPharmacy Electronically, [facility], 175.2, cm... Start Date: 04/09/20 Status: [...] 0, 0, 01/03/07 9:24:42, Print ANNE-MARIE Number, [id number], Constant Indicator Start Date: 01/03/07 Status: Ordered [...] tablet, Refills 5, Tot.Refills 5, Soft Stop, 12/18/19 13:41:00 EST, Instructions Repla... Start Date: 12/18/19 Status: Ordered hydrocortisone 1% topical cream See [...] 12/25/18 11:23:03 EST, Route to Pharmacy Electronically, [id number], [facility] Start Date: 12/25/18 Status: Ordered lactulose 10 gm/15 ml oral syrup See Instructions, # 946 mL, Refills 9 Tot. Refills 9, TWO TABLESPOONFULS BY MOUTH DAILY AT BEDTIME FOR CONSTIPATION / GIVE WITH LIQUIDS JUICE/WATER / 2 TBSP = 30 ML DOSE = 20 GRAMS, [facility] Start Date: 08/10/19 Status: Ordered loratadine 10 mg oral tablet 10 mg, 1, tablet, By Mouth, Daily, PER DR FREEMAN, # 30 tablet, Refills 11, Tot. Refills 11, 02/19/20 9:46:00 EDT, Route to Pharmacy Electronically, [facility], 175.2, cm, 10/12/19 8:18:00 EST, Height, 73.2, kg, 03/05/18 17:34:00 EDT, Dry Weight Start Date: 02/19/20 Status: Ordered Milk of Magnesia 8% oral suspension 30 mL = 2.4 Gm, By Mouth, Daily at bedtime, # 900 mL, 5 Refills, Maintenance, 02/20/20 12:44:00 EDT, [facility], 175.2, cm, 10/12/19 8:18:00 EST, Height, 73.2, kg, 03/05/18 17:34:00 EDT, Dry Weight Start Date: 02/20/20 Stop Date: 08/18/20 Status: Ordered omeprazole 20 mg oral enteric coated capsule 1 capsule = 20 mg, By Mouth, 2 times a day, # 30 capsule, 11 Refills, Soft Stop, 05/07/20 17:03:00 EDT, [facility], 175.2, cm, 10/12/19 8:18:00 EST, Height, [...] Raynaud's phenomenon(Confirmed) Active UI (urinary incontinence)(Confirmed) Active 22504; repeat 2020; repeat 2017 3egd 2012 barretts, repeat 2014 4egd 2010 positive barretts repeat 2012 5C2 6colonoscopy 2007 nl repeat 2016 7repeat 2024 [id number] Social History Social History Type Response Smoking Status Never smoker entered on: 06/25/16 Sex
--- OUTSIDE RECORDS SUMMARY | 2023-06-15 11:53 | XMS_ITS | Continuity of Care Document ---
Author Name Unknown Organization [facility]ace [facility] Address [address] [place] [address]- Care Team Providers Care Splitter Head Name Role Phone Brandon Freeman MD Primary Care Physician [phone] Encounter [facility] Date(s): 02/26/22 - 03/28/22 [facility] Adult [address] [place] [address]- Allergies, Adverse Reactions, Alerts Substance Reaction Severity [...] 23-valent vaccine 06/28/18 Given pneumococcal 23-valent vaccine 6/9/95 Given pneumococcal 13-valent vaccine 06/24/15 Given Zostavax [...] GIVEN 5Admin Note: [facility]INIC 6Admin Note: [employer] [facility] VIS [id number] given 7Admin Note: given in clinic 8Result Comment: Pt. already received on 08/07/2015 Medications bacitracin zinc 500 units/g topical ointment See Instructions, APPLY SMALL AMOUNT TOPICALLY TO SUPERFICIAL WOUNDS 4 TIMES A DAY NEEDED AN ANTIBACTERIAL / CALL MD IF USING FOR MORE THAN 7 DAYS, # 1 Gm, 11 Refills, Acute, [facility], 7, APPLY SMALL AMOUNT TOPICALLY TO [...] FOR CONSTIPATION, # 7 supp, 11 Refills, [facility], 175.2, cm, 07/20/21 10:29:00 EDT, Height [...] INTESTINAL HEALTH., # 30 capsule, 11 Refills, [facility], 30, TAKE 1 CAPSULE BY MOUTH [...] 19 GM, # 133 mL, 11 Refills, [facility], 5, ONE ENEMA PERRECTUM DAY 5 WITHOUT BOWEL MOVEMENT / IF NO RESULTS... Start Date: 03/16/22 Status: Ordered Ditropan XL 10 mg oral tablet, extended release 10, mg, 1, tablet, By Mouth, Daily, 0, 01/03/07 9:24:09, Print ANNE-MARIE Number, [id number], Constant Indicator Start Date: 01/03/07 Status: Ordered DOK 100 mg oral tablet See Instructions, TAKE 1 TABLET BY MOUTH TWICE DAILY (STOOL SOFTENER EQUIVALENT), # 60 tablet, 5 Refills, [facility], 175.2, cm, 07/20/21 10:29:00 EDT, Height [...] Instructions Replace Required Details, Route toPharmacy Electronically, [facility], 175.2, cm... Start Date: 04/09/20 Status: Ordered fit to pt fit to pt, See Instructions, # 1 units, Refills 0, Tot. Refills 0, Maintenance, rigid cervical collar. Fit to pt., 06/21/18 15:59:47 EDT, Compound Start Date: 06/21/18 Status: Ordered Flomax 0.4 mg oral capsule 0.4, mg, 1, capsule, By Mouth, Daily, 0, 0, 01/03/07 9:24:42, Print ANNE-MARIE Number, [id number], Constant Indicator Start Date: 01/03/07 Status: Ordered [...] Gm, 11 Refills, Maintenance, 12/11/19 11:11:00 EST, [facility], APPLY TO EXTERNAL HEMMORRHOIDS TWICE DAILY PRN PER DR FREEMAN, 175.2, cm, 10/12/19 8:18:00 EST, Height,... Start Date: 12/11/19 Status: Ordered ibuprofen 400 mg oral tablet 400 mg, 1, tablet, By Mouth, 3 times a day, PRN, # 30 tablet, Refills 1, Tot. Refills 1, Maintenance, as needed for pain, 12/25/18 11:23:03 EST, Route to Pharmacy Electronically, [id number], [facility] Start Date: 12/25/18 Status: Ordered lactulose 10 gm/15 ml oral syrup = 20 Gm, By Mouth, Daily at bedtime, GIVE WITH., # 946 mL, 11 Refills, [facility], 31, TWO TABLESPOONFULS BY MOUTH DAILY [...] FOR ALLERGIC RHINITIS, Route to Pharmacy Electronically, [facility], 175.2, cm, 07/20/21 10:29:00 EDT, Height Start Date: 11/10/21 Status: Ordered Milk of Magnesia 8% oral suspension 30 mL, By Mouth, Daily at bedtime, FOR CONSTIPATION HYBY=6079 MG., # 900 mL, 5 Refills, [facility], 175.2, cm, 07/20/21 10:29:00 EDT, Height Start Date: 11/24/21 Status: Ordered omeprazole 40 mg oral enteric coated capsule See Instructions, TAKE 1 CAPSULE BY MOUTH DAILY FOR GERD IN AM, # 30 capsule, 2 Refills, [facility], 175.2, cm, 07/20/21 10:29:00 EDT, Height Start Date: 01/27/22 Status: Ordered polyethylene glycol 3350 oral powder for reconstitution See Instructions, MIX 17GM WITH 8 OUNCES OF WATER OR JUICE DAILY AT 5PM FOR CONSTIPATION (POLYETHYLENE GLYCOL), # 510 Gm, 11 Refills, [facility], 30, MIX 17GM WITH 8 OUNCES OF WATER OR JUICE DAILY AT 5PM FOR CONSTIPATION (POLYETHYLENE GLYCOL), 17... Start Date: 09/22/21 Status: Ordered pravastatin 40 mg oral tablet See Instructions, TAKE 1 TABLET BY MOUTH DAILY IN THE PM FOR HYPERLIPIDEMIA, # 30 tablet, 5 Refills, [facility], 175.2, cm, 07/20/21 10:29:00 EDT, Height Start Date: 11/09/21 Status: Ordered Robafen 100 mg/5 ml oral liquid 10 mL, By Mouth, 4 times a day, PRN NEEDED FOR COUGH/NOTIFY MD IF NO RELIEF AFTER 48 HRS / DOSE =, GUAIFENESIN (TUSSIN MUCUS-CONGEST 100MG/5ML., # 240 mL, 4 Refills, Acute 11/25/22 12:02:00 EST, 11/25/21 12:02:00 EST, [facility], 175.2, cm, 09... Start Date: 11/25/21 [...] VITAMIN SUPPLEMENT, # 30 tablet, 5 Refills, [facility], 30, TAKE 1 TABLET BY MOUTH [...] Raynaud's phenomenon(Confirmed) Active UI (urinary incontinence)(Confirmed) Active 37626; repeat 2020; repeat 2017 3egd 2012 barretts, repeat 2014 4egd 2009 positive barretts repeat 2011 5C2 6colonoscopy 2007 nl repeat 2016 7repeat 2024 [id number] Social History Social History Type Response Smoking Status Never smoker entered on: 06/25/16 Sex
--- OUTSIDE RECORDS SUMMARY | 2023-06-15 11:53 | XMS_ITS | Continuity of Care Document ---
Author Name Unknown Organization [facility] lt Address [address] [place] [address]- Care Team Providers Care Respiratory Care Specialist Name Role Phone Brandon Freeman MD Primary Care Physician [phone] Encounter [facility] Date(s): 11/20/20 - 12/20/20 [facility] Adult [address] [place] [address]- Allergies, Adverse Reactions, Alerts Substance Reaction Severity [...] GIVEN 5Admin Note: FLU CLINIC 6Admin Note: [employer] [facility] VIS [id number] given 7Admin Note: given in clinic 8Result Comment: Pt. already received on 08/07/2015 Medications bacitracin zinc 500 units/g topical ointment See Instructions, APPLY SMALL AMOUNT TOPICALLY TO SUPERFICIAL WOUNDS 4 TIMES A DAY NEEDED AN ANTIBACTERIAL / CALL MD IF USING FOR MORE THAN 7 DAYS, # 1 Gm, 11 Refills, Acute, [facility], 7, APPLY SMALL AMOUNT TOPICALLY TO [...] CONSTIPATION, # 7 supp, 11 Refills, Acute, [facility], 175.2, cm, 10/12/19 8:18:00 EST, Height [...] Acute 07/27/21 9:44:00 EDT, 08/01/20 9:44:00 EDT, [facility], 1 capsule By Mouth Daily,x90 days,Instr:FOR INTESTINAL HEALTH., 175.2, cm, 07/09/20 10:27:00 E... Start Date: 08/01/20 Stop Date: 07/27/21 Status: Ordered diazepam 10 mg oral tablet See Instructions, PRN, 1 tablet By Mouth 1 hour prior to eye exam per Dr. Freeman, # 1 tablet, Refills 5, Tot. Refills 5, Maintenance, for anxiety, 12/09/20 10:08:00 EST, Instructions Replace Required Details, Route to Pharmacy Electronically, [facility]... Start Date: 12/09/20 Status: Ordered Ditropan XL 10 mg oral tablet, extended release 10, mg, 1, tablet, By Mouth, Daily, 0, 01/03/07 9:24:09, Print ANNE-MARIE Number, [id number], Constant Indicator Start Date: 01/03/07 Status: Ordered DOK 100 mg oral tablet See Instructions, TAKE 1 TABLET BY MOUTH TWICE DAILY (STOOL SOFTENER EQUIVALENT), # 60 tablet, 5 Refills, Soft Stop, 11/06/20 9:22:00 EST, [facility], 175.2, cm, 07/09/20 10:27:00 EDT, Height [...] Instructions Replace Required Details, Route toPharmacy Electronically, [facility], 175.2, cm... Start Date: 04/09/20 Status: [...] 0, 0, 01/03/07 9:24:42, Print ANNE-MARIE Number, [id number], Constant Indicator Start Date: 01/03/07 Status: Ordered hydrochlorothiazide 25 mg oral tablet See Instructions, TAKE 1 TABLET BY MOUTH DAILY IN AM FOR HTN / MONITOR BP / IF SYSTOLIC BP > 160OR DIASTOLIC > 100 OR SYSTOLIC < 90 OR DIASTOLIC < 50 CALL M, # 30 tablet, Refills 2, Tot.Refills 2, Soft Stop, 12/11/20 8:25:00 EST, Instructions Replac... Start Date: 12/11/20 Status: Ordered hydrocortisone 1% topical cream See [...] 12/25/18 11:23:03 EST, Route to Pharmacy Electronically, [id number], [facility] Start Date: 12/25/18 Status: Ordered lactulose 10 gm/15 ml oral syrup See Instructions, TWO TABLESPOONFULS BY MOUTH DAILY AT BEDTIME FOR CONSTIPATION / GIVE WITH LIQUIDSJUICE/WATER / 2 TBSP = 30 ML DOSE = 20 GRAMS, # 946 mL, 11 Refills, Soft Stop, 08/15/20 7:20:00 EDT, [facility], TWO TABLESPOONFULS BY MOUTH DAILY... Start Date: 08/15/20 Status: Ordered loratadine 10 mg oral tablet 10 mg, 1, tablet, By Mouth, Daily, PER DR FREEMAN, # 30 tablet, Refills 11, Tot. Refills 11, 02/19/20 9:46:00 EDT, Route to Pharmacy Electronically, [facility], 175.2, cm, 10/12/19 8:18:00 EST, Height, 73.2, kg, 03/05/18 17:34:00 EDT, Dry Weight Start Date: 02/19/20 Status: Ordered Milk of Magnesia 8% oral suspension 30 mL = 2.4 Gm, By Mouth, Daily at bedtime, # 900 mL, 5 Refills, Maintenance, 09/02/20 12:20:00 EST, [facility], 175.2, cm, 07/09/20 10:27:00 EDT, Height, Dry Weight Start Date: 09/02/20 Stop Date: 03/01/21 Status: Ordered omeprazole 40 mg oral enteric coated capsule 1 capsule = 40 mg, By Mouth, Daily, # 30 capsule, 5 Refills, Maintenance, 12/04/20 6:53:00 EST, EC Capsule, [facility], Partial fill upon patient request if the prescription is for a schedule IIopioid drug., 175.2, cm, 11/28/20 7:21:00 EST, Height Start Date: 12/04/20 Status: Ordered polyethylene glycol 3350 oral powder for reconstitution = 17 Gm, By Mouth, Daily, dissolve in water or juice, # 527 Gm, 11 Refills, Maintenance, 08/26/20 9:54:00 EDT, [facility], 17 Gm By Mouth Daily,Instr:dissolve in water or juice, 175.2, cm, 07/09/20 10:27:00 EDT, Height Start Date: 08/26/20 Status: Ordered pravastatin 40 mg oral tablet 1 tablet = 40 mg, By Mouth, Daily, Pt needs labs, # 30 tablet, 2 Refills, Soft Stop, 11/17/20 12:45:00 EST, [facility], 175.2, cm, 07/09/20 10:27:00 EDT, Height Start Date: 11/17/20 Status: Ordered Robafen 100 mg/5 ml oral liquid 10 mL, By Mouth, 4 times a day, PRN NEEDED FOR COUGH/NOTIFY MD IF NO RELIEF AFTER 48 HRS / DOSE =, GUAIFENESIN (TUSSIN MUCUS-CONGEST 100MG/5ML., # 240 mL, 4 Refills, Acute, 10/28/20 6:38:00 EST, [facility], 175.2, cm, 07/09/20 10:27:00 EDT, He... [...] 08/07/20 12:37:00 EDT, Route to Pharmacy Electronically, [facility], 175.2, cm, 07/09/20 10:27:00 EDT, Height, [...] Raynaud's phenomenon(Confirmed) Active UI (urinary incontinence)(Confirmed) Active 31304; repeat 2020; repeat 2017 3egd 2012 barretts, repeat 2014 4egd 2010 positive barretts repeat 2011 5C2 6colonoscopy 2007 nl repeat 2016 7repeat 2024 [id number] Social History Social History Type Response Smoking Status Never smoker entered on: 06/25/16 Sex
--- OUTSIDE RECORDS SUMMARY | 2023-06-15 11:53 | XMS_ITS | Continuity of Care Document ---
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 Name Role Phone Brandon Freeman MD Primary Care Physician [facility] Date(s): 03/15/23 - 04/14/23 [facility] [place] Adult [address] [place] [address]- Allergies, Adverse Reactions, Alerts Substance Reaction Severity Status azithromycin Active macrolide antibiotics Active ketolides Active Dust Active Immunizations Given and Recorded Vaccine Date Status Refusal Reason [id number] 12y+ bivalent booster vax 07/22/22 Recorded tetanus-diphtheria [...] clinic 5Admin Note: FLU CLINIC 6Admin Note: [employer] [facility] VIS [id number] given 7Admin Note: given in clinic 8Result Comment: Pt. already received on 08/07/2015 Medications acetaminophen 325 mg oral tablet 2, tablet, By Mouth, Every 6 hours, PRN, SVOF=412VL., # 60 tablet, Refills 0, Maintenance, NEEDED FOR FEVER>100.5 OR PAIN SHOWN BY FACIAL GRIMACE NOTIFY MD IF USED >, 11/12/22 9:30:00 EST, Route to Pharmacy Electronically, [facility], 175.2, c... Start Date: 11/12/22 Stop Date: 11/15/22 Status: Ordered bacitracin zinc 500 units/g topical ointment See Instructions, APPLY SMALL AMOUNT TOPICALLY TO SUPERFICIAL WOUNDS 4 TIMES A DAY NEEDED AN ANTIBACTERIAL / CALL MD IF USING FOR MORE THAN 7 DAYS, # 28 Gm, 11 Refills, Maintenance, 11/09/22 15:57:00 EST, [facility], 7, APPLY SMALL AMOUNT T... Start [...] supp, 11 Refills, Maintenance, 12/16/22 13:35:00 EST, [facility], 175.2, cm, 07/27/22 11:37:00 EDT, Height [...] 30 SEC... Start Date: 10/26/18 Status: Ordered [employer] oral capsule 1 capsule, By Mouth, Daily, FOR INTESTINAL HEALTH., # 30 capsule, 11 Refills, Maintenance, 07/29/2211:36:00 EDT, [facility], 30, 1 capsule By Mouth Daily,Instr:FOR [...] Stop 04/06/24 13:54:00 EDT, 04/05/23 13:54:00 EDT, [facility], 5, ONE... Start Date: 04/05/23 Stop Date: 04/06/24 Status: Ordered Ditropan XL 10 mg oral tablet, extended release 10, mg, 1, tablet, By Mouth, Daily, 0, 01/03/07 9:24:09, Print ANNE-MARIE Number, [id number], Constant Indicator Start Date: 01/03/07 Status: Ordered DOK 100 mg oral tablet See Instructions, TAKE 1 TABLET BY MOUTH TWICE DAILY (AM AND PM) (STOOL SOFTENER EQUIVALENT), # 60 tablet, 5 Refills, Maintenance, 02/02/23 15:38:00 EDT, [facility], 175.2, cm, 02/01/23 15:11:00EDT, Height Start [...] Instructions Replace Required Details, Route toPharmacy Electronically, [facility], 175.2, cm... Start Date: 04/09/20 Status: Ordered fit to pt fit to pt, See Instructions, # 1 units, Refills 0, Tot. Refills 0, Maintenance, rigid cervical collar. Fit to pt., 06/21/18 15:59:47 EDT, Compound Start Date: 06/21/18 Status: Ordered Flomax 0.4 mg oral capsule 0.4, mg, 1, capsule, By Mouth, Daily, 0, 0, 01/03/07 9:24:42, Print ANNE-MARIE Number, [id number], Constant Indicator Start Date: 01/03/07 Status: Ordered hydrochlorothiazide 25 mg oral tablet 1, tablet, By Mouth, Daily in AM, FOR HTN/MONITOR BP/IF SYSTOLIC MORE THAN 160, DIASTOLIC MORE [id number], SYSTOLIC LESS THAN 90, OR DIASTOLIC LESS THAN 50 CALLMD., # 90 tablet, Refills 1, Tot. Refills1, Maintenance, 03/15/23 14:21:00 EDT, [facility]... Start Date: 03/15/23 Status: Ordered HYDROCORTISONE [...] Gm, 11 Refills, Maintenance, 12/11/19 11:11:00 EST, [facility], APPLY TO EXTERNAL HEMMORRHOIDS TWICE DAILY PRN PER DR FREEMAN, 175.2, cm, 10/12/19 8:18:00 EST, Height,... Start Date: 12/11/19 Status: Ordered ibuprofen 400 mg oral tablet 400 mg, 1, tablet, By Mouth, 3 times a day, PRN, # 30 tablet, Refills 1, Tot. Refills 1, Maintenance, as needed for pain, 12/25/18 11:23:03 EST, Route to Pharmacy Electronically, [id number], [facility] Start Date: 12/25/18 Status: Ordered lactulose 10 gm/15 ml oral syrup = 20 Gm, By Mouth, Daily at bedtime, # 946 mL, 11 Refills, Maintenance, 09/01/22 7:18:00 EDT, [facility], 31, 20 Gm By Mouth Daily [...] Replace Requir... Start Date: 11/09/22 Status: Ordered loperamide 2 mg oral capsule 2 mg, 1, capsule, By Mouth, Every 4 hours, FOR DIARRHEA / CALL MD IF USING MORE THAN 48 HRS, # 60 capsule, Refills 2, Tot. Refills 2, Acute 03/08/24 11:09:00 EDT, 03/08/23 11:54:00 EDT, Route to Pharmacy Electronically, [facility], Partial fill u... Start Date: 03/08/23 Stop Date: 03/08/24 Status: Ordered loratadine 10 mg oral tablet 1, tablet, By Mouth, Daily, PRN, # 30 tablet, Refills 11, NEEDED FOR ALLERGY SYMPTOMS WATERY, ITCHY RED EYES, SNEEZING FOR ALLERGIC RHINITIS, Route to Pharmacy Electronically, [facility], 175.2, cm, 07/20/21 10:29:00 EDT, Height Start Date: 11/10/21 Status: Ordered Milk of Magnesia 8% oral suspension 30 mL, By Mouth, Daily at bedtime, FOR CONSTIPATION QVTP=2871 MG., # 900 mL, 5 Refills, Maintenance, 04/04/23 21:00:00 EDT, [facility], 175.2, cm, 02/01/23 15:11:00 EDT, Height Start Date: 04/04/23 Status: Ordered omeprazole 40 mg oral enteric coated capsule 1 capsule, By Mouth, Daily in AM, # 30 capsule, 5 Refills, Maintenance, 02/01/23 7:37:00 EDT, [facility], 175.2, cm, 07/27/22 11:37:00 EDT, Height Start Date: 02/01/23 Status: Ordered polyethylene glycol 3350 oral powder for reconstitution See Instructions, MIX 17GM WITH 8 OUNCES OF WATER OR JUICE DAILY AT 5PM FOR CONSTIPATION (POLYETHYLENE GLYCOL), # 510 Gm, 11 Refills, Physician Stop 10/07/23 11:17:00 EST, 10/07/22 11:17:00 EST, [facility], 30, MIX 17GM WITH 8 OUNCES OF WATER OR... Start Date: 10/07/22 Stop Date: 10/07/23 Status: Ordered pravastatin 40 mg oral tablet See Instructions, TAKE 1 TABLET BY MOUTH DAILY IN THE PM FOR HYPERLIPIDEMIA, # 30 tablet, 5 Refills, Maintenance, 11/18/22 15:41:00 EST, [facility], 175.2, cm, 07/27/22 11:37:00 EDT, Height [...] 1 Refills, Maintenance, 05/11/22 14:45:00 EDT, Cream, [facility], Partial fill upon patient request if [...] tablet, 5 Refills, Maintenance, 04/04/23 21:00:00 EDT, [facility], 30, TAKE 1 TABLET BY MOUTH [...] Confirmed Active UI (urinary incontinence) Confirmed Active 00112; repeat 2020 58981; repeat 2017 3egd 2012 barretts, repeat 2014 4egd 2010 positive barretts repeat 2012 5C2 6colonoscopy 2007 nl repeat 2016 7repeat 2024 14898 Social History Social History Type Response Smoking Status Never smoker entered on: 06/25/16 Sex Patient Care team information Care Team Personnel Name: Hannah Roque RN Position: [facility] RN Member Role: Primary Care Nurse Name: Reggie Godinez RN Position: [facility] RN Member Role: Primary Care Nurse Name: Christiane Cedillo RN Position: [facility] RN Member Role: Primary Care Nurse Name: Brandon Freeman MD Position: [facility] Physician - Primary Care Member Role: PCP Address: Address: [address] [place] [id number]- Name: Janeen Hoskins RN Position: [facility] RN Member Role: Primary Care Nurse Name: Cydney Mckinney RN Position: [facility] RN Member Role: Primary Care Nurse Name: Frantz Mi III, RN Position: [facility] RN Member Role: Primary Care Nurse Name: Cate Martel NP Position: Reference Physician Member Role: Primary Care Nurse Address: Address: [address] [place] [address]- Name: Fay Morton RN Position: [facility] RN Member Role: Primary Care Nurse Name: Massiel Lu RN Position: [facility] RN Member Role: Primary Care Nurse Name: Lurdes Mujica RN Position: [facility] RN Member Role: Primary Care Nurse Name: Brandie Horvath RN Position: [facility] Hospital Vault Installer Member Role: Primary Care Nurse Name: Claribel Howe RN Position: [facility] RN Member Role: Primary Care Nurse Care Team Related Persons Name: JOHAN PERKINS Name: DAWOOD DE LOS SANTOS Address: [place] [address] [place] [id number] Name: JENNIFER JUAREZ Address: [address] [place] [address]
--- OUTSIDE RECORDS SUMMARY | 2023-06-15 11:53 | XMS_ITS | Continuity of Care Document ---
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 Role Phone Brandon Freeman MD Primary Care Physician Encounter [facility] Date(s): 07/09/20 - 07/16/20 [facility] Adult [address] [place] [address]- [facility] Encounter Diagnosis Bustamante's Esophagus(Discharge Diagnosis) - 07/09/20 Hx of mental retardation(Discharge Diagnosis) - 07/09/20 Attending Physician: Brandon Freeman MD Allergies, Adverse Reactions, Alerts Substance Reaction Severity [...] GIVEN 3Admin Note: FLU CLINIC 4Admin Note: [employer] [facility] VIS [phone] given 5Admin Note: given by lisy doc by tyler 6Admin Note: given in clinic [...] CONSTIPATION, # 7 supp, 11 Refills, Acute, [facility], 175.2, cm, 10/12/19 8:18:00 EST, Height [...] Replace Required Details, Route to Pharmacy Electronically, [facility] Start Date: 11/05/19 Status: Ordered Ditropan XL 10 mg oral tablet, extended release 10, mg, 1, tablet, By Mouth, Daily, 0, 01/03/07 9:24:09, Print ANNE-MARIE Number, [id number], Constant Indicator Start Date: 01/03/07 Status: Ordered DOK 100 mg oral tablet See Instructions, TAKE 1 TABLET BY MOUTH TWICE DAILY (STOOL SOFTENER EQUIVALENT), # 60 tablet, 5 Refills, Soft Stop, 05/08/20 13:17:00 EDT, [facility], 175.2, cm, 10/12/19 8:18:00 EST, Height, [...] Instructions Replace Required Details, Route toPharmacy Electronically, [facility], 175.2, cm... Start Date: 04/09/20 Status: [...] without bowel movement, if no results notify M.Gisselle, # 135 mL, 11 Refills, Soft Stop, 04/06/19 12:32:30 EDT, Enema, 1 each Rectally Once,PRN:for constipation,Instr:1 per rectum on day 5... Start Date: 04/06/19 Status: Ordered Flomax 0.4 mg oral capsule 0.4, mg, 1, capsule, By Mouth, Daily, 0, 0, 01/03/07 9:24:42, Print ANNE-MARIE Number, [id number], Constant Indicator Start Date: 01/03/07 Status: Ordered [...] 12/25/18 11:23:03 EST, Route to Pharmacy Electronically, [id number], [facility] Start Date: 12/25/18 Status: Ordered lactulose 10 gm/15 ml oral syrup See Instructions, # 946 mL, Refills 9 Tot. Refills 9, TWO TABLESPOONFULS BY MOUTH DAILY AT BEDTIME FOR CONSTIPATION / GIVE WITH LIQUIDS JUICE/WATER / 2 TBSP = 30 ML DOSE = 20 GRAMS, [facility] Start Date: 08/10/19 Status: Ordered loratadine 10 mg oral tablet 10 mg, 1, tablet, By Mouth, Daily, PER DR FREEMAN, # 30 tablet, Refills 11, Tot. Refills 11, 02/19/20 9:46:00 EDT, Route to Pharmacy Electronically, [facility], 175.2, cm, 10/12/19 8:18:00 EST, Height, 73.2, kg, 03/05/18 17:34:00 EDT, Dry Weight Start Date: 02/19/20 Status: Ordered Milk of Magnesia 8% oral suspension 30 mL = 2.4 Gm, By Mouth, Daily at bedtime, # 900 mL, 5 Refills, Maintenance, 02/20/20 12:44:00 EDT, [facility], 175.2, cm, 10/12/19 8:18:00 EST, Height, 73.2, kg, 03/05/18 17:34:00 EDT, Dry Weight Start Date: 02/20/20 Stop Date: 08/18/20 Status: Ordered omeprazole 20 mg oral enteric coated capsule 1 capsule = 20 mg, By Mouth, 2 times a day, # 30 capsule, 11 Refills, Soft Stop, 05/07/20 17:03:00 EDT, [facility], 175.2, cm, 10/12/19 8:18:00 EST, Height, [...] 5 Refills, Soft Stop, 05/20/20 11:37:00 EDT[facility], cm, 10/12/19 8:18:00 EST, Height, Dry [...] 02/12/20 8:43:00 EDT, Route to Pharmacy Electronically, [facility], 175.2, cm, 10/12/19 8:18:00 EST, Height, [...] Raynaud's phenomenon(Confirmed) Active UI (urinary incontinence)(Confirmed) Active 58660; repeat 2020; repeat 2017 3egd 2011 barretts, repeat 2014 4egd 2009 positive barretts repeat 2011 5C2 6colonoscopy 2006 nl repeat 2016 7repeat 2024 [id number] Diagnosis Diagnosis Type Effective Dates Health Status Clinical Service Informant Bustamante's Esophagus Discharge Diagnosis 07/09/20 Hx of mental retardation Discharge Diagnosis 07/09/20 Vital Signs Most recent to oldest [Reference Range]: 1 2 Height 175.2 cm (07/09/20 10:27 AM) 175.2 cm (07/09/20 10:00 AM) Weight 84.5 kg (07/09/20 10:27 AM) Pulse Rate [55-90 bpm] 88 bpm (07/09/20 10:27 AM) Body Mass Index [18.5-24.99] 27.53 *H* (07/09/20 10:27 AM) Blood Pressure [90-138/55-84 mm Hg] 124/ 74mm Hg (07/09/20 10:27 AM) Mode of Delivery (Oxygen) Room air (07/09/20 10:00 AM) Social History Social History Type Response Smoking Status Never smoker entered on: 06/25/16 Sex
--- OUTSIDE RECORDS SUMMARY | 2023-06-15 11:53 | XMS_ITS | Continuity of Care Document ---
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 Name Role Phone Brandon Freeman MD Primary Care Physician [facility]23 - 03/02/23 [facility] Adult [address] [place] [address]- Allergies, Adverse Reactions, Alerts Substance Reaction Severity Status azithromycin Active macrolide antibiotics Active Dust Active ketolides Active Immunizations Given and Recorded Vaccine Date Status Refusal Reason [id number] 12y+ bivalent booster vax 07/22/22 Recorded tetanus-diphtheria [...] clinic 5Admin Note: FLU CLINIC 6Admin Note: [email or web address] [facility] VIS [id number] given 7Admin Note: given in clinic 8Result Comment: Pt. already received on 08/07/2015 Medications acetaminophen 325 mg oral tablet 2, tablet, By Mouth, Every 6 hours, PRN, [id number]., # 60 tablet, Refills 0, Maintenance, NEEDED FOR FEVER>100.5 OR PAIN SHOWN BY FACIAL GRIMACE NOTIFY MD IF USED >, 11/12/22 9:30:00 EST, Route to Pharmacy Electronically, [facility], 175.2, c... Start Date: 11/12/22 Stop Date: 11/15/22 Status: Ordered bacitracin zinc 500 units/g topical ointment See Instructions, APPLY SMALL AMOUNT TOPICALLY TO SUPERFICIAL WOUNDS 4 TIMES A DAY NEEDED AN ANTIBACTERIAL / CALL MD IF USING FOR MORE THAN 7 DAYS, # 28 Gm, 11 Refills, Maintenance, 11/09/22 15:57:00 EST, [facility], 7, APPLY SMALL AMOUNT T... Start [...] supp, 11 Refills, Maintenance, 12/16/22 13:35:00 EST, [facility], 175.2, cm, 07/27/22 11:37:00 EDT, Height [...] 30 SEC... Start Date: 10/26/18 Status: Ordered [employer] oral capsule 1 capsule, By Mouth, Daily, FOR INTESTINAL HEALTH., # 30 capsule, 11 Refills, Maintenance, 07/29/2211:36:00 EDT, [facility], 30, 1 capsule By Mouth Daily,Instr:FOR [...] 19 GM, # 133 mL, 11 Refills, [facility], 5, ONE ENEMA PERRECTUM DAY 5 WITHOUT BOWEL MOVEMENT / IF NO RESULTS... Start Date: 03/16/22 Status: Ordered Ditropan XL 10 mg oral tablet, extended release 10, mg, 1, tablet, By Mouth, Daily, 0, 01/03/07 9:24:09, Print ANNE-MARIE Number, [id number], Constant Indicator Start Date: 01/03/07 Status: Ordered DOK 100 mg oral tablet See Instructions, TAKE 1 TABLET BY MOUTH TWICE DAILY (AM AND PM) (STOOL SOFTENER EQUIVALENT), # 60 tablet, 5 Refills, Maintenance, 02/02/23 15:38:00 EDT, [facility], 175.2, cm, 02/01/23 15:11:00EDT, Height Start [...] Instructions Replace Required Details, Route toPharmacy Electronically, [facility], 175.2, cm... Start Date: 04/09/20 Status: Ordered fit to pt fit to pt, See Instructions, # 1 units, Refills 0, Tot. Refills 0, Maintenance, rigid cervical collar. Fit to pt., 06/21/18 15:59:47 EDT, Compound Start Date: 06/21/18 Status: Ordered Flomax 0.4 mg oral capsule 0.4, mg, 1, capsule, By Mouth, Daily, 0, 0, 01/03/07 9:24:42, Print ANNE-MARIE Number, [id number], Constant Indicator Start Date: 01/03/07 Status: Ordered [...] Gm, 11 Refills, Maintenance, 12/11/19 11:11:00 EST, [facility], APPLY TO EXTERNAL HEMMORRHOIDS TWICE DAILY PRN PER DR FREEMAN, 175.2, cm, 10/12/19 8:18:00 EST, Height,... Start Date: 12/11/19 Status: Ordered ibuprofen 400 mg oral tablet 400 mg, 1, tablet, By Mouth, 3 times a day, PRN, # 30 tablet, Refills 1, Tot. Refills 1, Maintenance, as needed for pain, 12/25/18 11:23:03 EST, Route to Pharmacy Electronically, [id number], [facility] Start Date: 12/25/18 Status: Ordered lactulose 10 gm/15 ml oral syrup = 20 Gm, By Mouth, Daily at bedtime, # 946 mL, 11 Refills, Maintenance, 09/01/22 7:18:00 EDT, [facility], 31, 20 Gm By Mouth Daily [...] FOR ALLERGIC RHINITIS, Route to Pharmacy Electronically, [facility], 175.2, cm, 07/20/21 10:29:00 EDT, Height Start Date: 11/10/21 Status: Ordered Milk of Magnesia 8% oral suspension 30 mL, By Mouth, Daily at bedtime, FOR CONSTIPATION CESK=7537 MG., # 900 mL, 5 Refills, Maintenance, 07/01/22 13:24:00 EDT, [facility], 175.2, cm, 04/15/22 9:44:00 EDT, Height Start Date: 07/01/22 Status: Ordered omeprazole 40 mg oral enteric coated capsule 1 capsule, By Mouth, Daily in AM, # 30 capsule, 5 Refills, Maintenance, 02/01/23 7:37:00 EDT, [facility], 175.2, cm, 07/27/22 11:37:00 EDT, Height Start Date: 02/01/23 Status: Ordered polyethylene glycol 3350 oral powder for reconstitution See Instructions, MIX 17GM WITH 8 OUNCES OF WATER OR JUICE DAILY AT 5PM FOR CONSTIPATION (POLYETHYLENE GLYCOL), # 510 Gm, 11 Refills, Physician Stop 10/07/23 11:17:00 EST, 10/07/22 11:17:00 EST, [facility], 30, MIX 17GM WITH 8 OUNCES OF WATER OR... Start Date: 10/07/22 Stop Date: 10/07/23 Status: Ordered pravastatin 40 mg oral tablet See Instructions, TAKE 1 TABLET BY MOUTH DAILY IN THE PM FOR HYPERLIPIDEMIA, # 30 tablet, 5 Refills, Maintenance, 11/18/22 15:41:00 EST, [facility], 175.2, cm, 07/27/22 11:37:00 EDT, Height [...] Confirmed Active UI (urinary incontinence) Confirmed Active 52058; repeat 2020 26679; repeat 2018 3egd 2012 barretts, repeat 2015 4egd 2010 positive barretts repeat 2011 5C2 6colonoscopy 2006 nl repeat 2016 7repeat 2024 23309 Social History Social History Type Response Smoking Status Never smoker entered on: 06/25/16 Sex Patient Care team information Care Team Personnel Name: Hannah Roque RN Position: S RN Member Role: Primary Care Nurse Name: Reggie Godinez RN Position: S RN Member Role: Primary Care Nurse Name: Christiane Cedillo RN Position: [facility] RN Member Role: Primary Care Nurse Name: Brandon Freeman MD Position: [facility] Primary Care Physician Member Role: PCP Address: Address: [address] [place] [id number]- [place] Name: Janeen Hoskins RN Position: [facility] RN Member Role: Primary Care Nurse Name: Cydney Mckinney RN Position: [facility] RN Member Role: Primary Care Nurse Name: Frantz Mi III, RN Position: [facility] RN Member Role: Primary Care Nurse Name: Tahmina VISION TEACHER, Cate Melgar Position: Reference Physician Member Role: Primary Care Nurse Address: Address: [address] [place] [phone]- [place] Name: Fay Morton RN Position: [facility] RN Member Role: Primary Care Nurse Name: Massiel Lu RN Position: [facility] RN Member Role: Primary Care Nurse Name: Lurdes Mujica RN Position: [facility] RN Member Role: Primary Care Nurse Name: Brandie Horvath RN Position: [facility] Shoe Planner Member Role: Primary Care Nurse Name: Claribel Howe RN Position: [facility] RN Member Role: Primary Care Nurse Care Team Related Persons Name: JOHAN PERKINS Name: DAWOOD DE LOS SANTOS Address: home [address] [place] [id number] Name: JENNIFER JUAREZ Address: [address] [place] [address]
--- OUTSIDE RECORDS SUMMARY | 2023-06-15 11:53 | XMS_ITS | Continuity of Care Document ---
Author Name Unknown Organization [facility] Chace lt Address [address] [place] [address]- Care Team Providers Care [employer] Worker Name Role Phone Brandon Freeman MD Primary Care Physician [phone] [facility] - 10/22/19 [facility] Adult [address] [place] [address]- [facility] Attending Physician: Admtr, Ar8 Allergies, Adverse Reactions, [...] GIVEN 3Admin Note: FLU CLINIC 4Admin Note: [facility] VIS [id number] given 5Admin Note: given by lisy doc by tyelr 6Admin Note: given in clinic 7Admin Note: [...] Status: Ordered bisacodyl 10 mg rectal suppository 1 supp = 10 mg, Rectally, Daily, PRN Constipation, prn, # 12 supp, 11 Refills, Maintenance, 04/09/19 16:20:52 EDT, Suppository Start Date: 04/09/19 Status: Ordered chlorhexidine topical 0.12% liquid 15 [...] oral capsule 1 capsule, By Mouth, Daily, # 30 capsule, Refills 4 Tot. Refills 4, FOR INTESTINAL HEALTH., [facility] Start Date: 10/01/19 Status: Ordered diazepam 10 mg oral tablet See Instructions, PRN, 1 tablet By Mouth 1 hour prior to eye exam per Dr. Freeman FAX [phone], # 1tablet, Refills 5, Tot. Refills 5, Maintenance, for anxiety, 12/14/18 10:02:40 EST, Instructions Replace Required Details, Print Requisition Start Date: 12/14/18 Status: Ordered Ditropan XL 10 mg oral tablet, extended release 10, mg, 1, tablet, By Mouth, Daily, 0, 01/03/07 9:24:09, Print ANNE-MARIE Number, [id number], Constant Indicator Start Date: 01/03/07 Status: Ordered DOK 100 mg oral tablet See Instructions, TAKE 1 TABLET BY MOUTH TWICE DAILY (STOOL SOFTENER EQUIVALENT), # 60 tablet, 1 Refills, Soft Stop, 10/16/19 14:14:03 EST, [facility], 175.2, cm, 10/12/19 8:18:07 EST, Height, 73.2, kg, 03/05/18 17:34:27 EDT, Dry Weight Start Date: 10/16/19 Status: Ordered Eucerin cream Eucerin cream, See [...] Refills 2, Tot. Refills 2, Soft Stop, 09/12/19 15:22:48 EST, Instructions Replace Required Details, Route toPharmacy Electronically, [id number]... Start Date: 09/12/19 Status: Ordered fit to pt fit to [...] 0, 0, 01/03/07 9:24:42, Print ANNE-MARIE Number, [id number], Constant Indicator Start Date: 01/03/07 Status: Ordered guaiFENesin 100 mg/5 mL oral liquid 10 mL = 200 mg, By Mouth, 4 times a day, PRN Cough, PER DR FREEMAN, # 240 mL, 4 Refills, Maintenance, 11/13/18 10:58:54 EST Start Date: 11/13/18 Status: Ordered hydrochlorothiazide 25 mg oral tablet See Instructions, # 30 tablet, Refills 5 Tot. Refills 5, TAKE 1 TABLET BY MOUTH DAILY IN AM FOR HTN/ MONITOR BP / IF SYSTOLIC BP > 160 OR DIASTOLIC > 100 OR SYSTOLIC < 90 OR DIASTOLIC < 50 CALL [facility] Start Date: 06/18/19 Status: Ordered hydrocortisone 1% topical cream See Instructions, APPLY TO EXTERNAL HEMMORRHOIDS TWICE DAILY PRN PER DR FREEMAN, # 60 Gm, 11 Refills, Maintenance, 11/28/18 9:12:58 EST, APPLY TO EXTERNAL HEMMORRHOIDS TWICE DAILY PRN PER DR FREEMAN Start Date: 11/28/18 Status: Ordered ibuprofen 400 mg oral tablet 400 mg, 1, tablet, By Mouth, 3 times a day, PRN, # 30 tablet, Refills 1, Tot. Refills 1, Maintenance, as needed for pain, 12/25/18 11:23:03 EST, Route to Pharmacy Electronically, [id number], [facility] Start Date: 12/25/18 Status: Ordered lactulose 10 gm/15 ml oral syrup See Instructions, # 946 mL, Refills 9 Tot. Refills 9, TWO TABLESPOONFULS BY MOUTH DAILY AT BEDTIME FOR CONSTIPATION / GIVE WITH LIQUIDS JUICE/WATER / 2 TBSP = 30 ML DOSE = 20 GRAMS, [facility] Start Date: 08/10/19 Status: Ordered loperamide 2 mg oral capsule 2 mg, 1, capsule, By Mouth, Every 4 hours, PRN, PER DR FREEMAN, # 60 capsule, Refills 2, Tot. Refills 2, Maintenance, for loose stool, 04/19/18 14:09:09 EDT, Route to Pharmacy Electronically, [id number], [facility] Start Date: 04/19/18 Status: Ordered loratadine 10 mg oral tablet 10 mg, 1, tablet, By Mouth, Daily, PER DR FREEMAN, # 30 tablet, Refills 11, Tot. Refills 11, 04/19/18 14:20:42 EDT, Route to Pharmacy Electronically, [id number], [facility] Start Date: 04/19/18 Status: Ordered Milk of Magnesia 8% oral suspension 30 mL = 2.4 Gm, By Mouth, Daily at bedtime, # 900 mL, 11 Refills, Maintenance, 03/19/19 10:08:56 EDT Start Date: 03/19/19 Stop Date: 03/13/20 Status: Ordered omeprazole 20 mg oral enteric coated capsule See Instructions, TAKE 1 CAPSULE BY MOUTH DAILY IN THE EVENING FOR GERD, # 30 capsule, 2 Refills, Soft Stop, 09/26/19 10:18:26 EST Start Date: 09/26/19 Status: Ordered polyethylene glycol 3350 oral powder for reconstitution = 17 Gm, By Mouth, Daily, dissolve in water or juice, # 527 Gm, 11 Refills, Maintenance, 07/18/19 15:15:36 EDT, 17 Gm By Mouth Daily,Instr:dissolve in water or juice Start Date: 07/18/19 Status: Ordered pravastatin 40 mg oral tablet See Instructions, # 30 tablet, Refills 5 Tot. Refills 5, TAKE 1 TABLET BY MOUTH DAILY IN THE PM FORHYPERLIPIDEMIA, [facility] Start Date: 05/28/19 Status: Ordered Shingrix intramuscular injection 0.5 mL, Intramuscular, Once, # 0.5 mL, 1 Refills, Soft Stop, 06/28/18 10:24:17 EDT Start Date: 06/28/18 Status: Ordered thera multivitamin thera multivitamin, See Instructions, # 30 tablet, Refills 11, Tot. Refills 11, Maintenance, po qd,06/11/19 10:29:07 EDT, Compound Start Date: 06/11/19 Status: Ordered Tylenol 325 mg oral tablet 650 mg, By Mouth, Every 4 hours, PRN, Refills 0, Maintenance, Pain , Mild, 03/08/18 13:38:34 EDT Start Date: 03/08/18 Status: Ordered Zestril 20 mg oral tablet 20 mg, 1, tablet, By Mouth, Daily, # 90 tablet, Refills 3, Tot. Refills 3, Maintenance, 02/19/19 15:18:44 EDT, Route to Pharmacy Electronically, [id number], [facility] Start Date: 02/19/19 Status: Ordered Problem List Condition Effective Dates [...] Raynaud's phenomenon(Confirmed) Active UI (urinary incontinence)(Confirmed) Active 41869; repeat 202015; repeat 2017 3egd 2012 barretts, repeat 2014 4egd 2009 positive barretts repeat 2011 5C2 6colonoscopy 2006 nl repeat 2016 7repeat 2024 [id number] Social History Social History Type Response Smoking Status Never smoker entered on: 06/25/16 Sex
--- OUTSIDE RECORDS SUMMARY | 2023-06-15 11:53 | XMS_ITS | Continuity of Care Document ---
Author Name Unknown Organization [facility] Chace lt Address [address] [place] [address]- Care Team Providers Care Coordinator Skill Training Program Name Role Phone Brandon Freeman MD Primary Care Physician [facility]20 - 06/14/20 [facility] Adult [address] [place] [address]- [facility] Allergies, Adverse Reactions, Alerts Substance [...] GIVEN 3Admin Note: FLU CLINIC 4Admin Note: [facility] VIS [id number] given 5Admin Note: given by lisy short [...] Replace Required Details, Route to Pharmacy Electronically, [facility]... Start Date: 11/05/19 Status: Ordered Ditropan XL 10 mg oral tablet, extended release 10, mg, 1, tablet, By Mouth, Daily, 0, 01/03/07 9:24:09, Print ANNE-MARIE Number, [id number], Constant Indicator Start Date: 01/03/07 Status: Ordered DOK 100 mg oral tablet See Instructions, TAKE 1 TABLET BY MOUTH TWICE DAILY (STOOL SOFTENER EQUIVALENT), # 60 tablet, 5 Refills, Soft Stop, 05/08/20 13:17:00 EDT, [facility], 175.2, cm, 10/12/19 8:18:00 EST, Height, [...] Instructions Replace Required Details, Route toPharmacy Electronically, [facility], 175.2, cm... Start Date: 04/09/20 Status: [...] 0, 0, 01/03/07 9:24:42, Print ANNE-MARIE Number, [id number], Constant Indicator Start Date: 01/03/07 Status: Ordered [...] 12/25/18 11:23:03 EST, Route to Pharmacy Electronically, [id number], [facility] Start Date: 12/25/18 Status: Ordered lactulose 10 gm/15 ml oral syrup See Instructions, # 946 mL, Refills 9 Tot. Refills 9, TWO TABLESPOONFULS BY MOUTH DAILY AT BEDTIME FOR CONSTIPATION / GIVE WITH LIQUIDS JUICE/WATER / 2 TBSP = 30 ML DOSE = 20 GRAMS, [facility] Start Date: 08/10/19 Status: Ordered loratadine 10 mg oral tablet 10 mg, 1, tablet, By Mouth, Daily, PER DR FREEMAN, # 30 tablet, Refills 11, Tot. Refills 11, 02/19/20 9:46:00 EDT, Route to Pharmacy Electronically, [facility], 175.2, cm, 10/12/19 8:18:00 EST, Height, 73.2, kg, 03/05/18 17:34:00 EDT, Dry Weight Start Date: 02/19/20 Status: Ordered Milk of Magnesia 8% oral suspension 30 mL = 2.4 Gm, By Mouth, Daily at bedtime, # 900 mL, 5 Refills, Maintenance, 02/20/20 12:44:00 EDT, [facility], 175.2, cm, 10/12/19 8:18:00 EST, Height, 73.2, kg, 03/05/18 17:34:00 EDT, Dry Weight Start Date: 02/20/20 Stop Date: 08/18/20 Status: Ordered omeprazole 20 mg oral enteric coated capsule 1 capsule = 20 mg, By Mouth, 2 times a day, # 30 capsule, 11 Refills, Soft Stop, 05/07/20 17:03:00 EDT, [facility], 175.2, cm, 10/12/19 8:18:00 EST, Height, [...] Raynaud's phenomenon(Confirmed) Active UI (urinary incontinence)(Confirmed) Active 33798; repeat 2020; repeat 2017 3egd 2012 barretts, repeat 2014 4egd 2010 positive barretts repeat 2012 5C2 6colonoscopy 2007 nl repeat 2016 7repeat 2024 [id number] Social History Social History Type Response Smoking Status Never smoker entered on: 06/25/16 Sex
--- OUTSIDE RECORDS SUMMARY | 2023-06-15 11:54 | XMS_ITS | Continuity of Care Document ---
Author Name Unknown Organization [facility] Chace lt Address [address] [place] [address]- Care Team Providers Care Radio Installer Automobile Name Role Phone Brandon Freeman MD Primary Care Physician [facility]): 03[facility]22 - 04/08/22 [facility] Adult [address] [place] [address]- Allergies, Adverse Reactions, Alerts Substance Reaction Severity [...] GIVEN 5Admin Note: FLU CLINIC 6Admin Note: [employer] [facility] VIS [phone] given 7Admin Note: given in clinic 8Result Comment: Pt. already received on 08/07/2015 Medications bacitracin zinc 500 units/g topical ointment See Instructions, APPLY SMALL AMOUNT TOPICALLY TO SUPERFICIAL WOUNDS 4 TIMES A DAY NEEDED AN ANTIBACTERIAL / CALL MD IF USING FOR MORE THAN 7 DAYS, # 1 Gm, 11 Refills, Acute, [facility], 7, APPLY SMALL AMOUNT TOPICALLY TO [...] FOR CONSTIPATION, # 7 supp, 11 Refills, [facility], 175.2, cm, 07/20/21 10:29:00 EDT, Height [...] INTESTINAL HEALTH., # 30 capsule, 11 Refills, [facility], 30, TAKE 1 CAPSULE BY MOUTH [...] 19 GM, # 133 mL, 11 Refills, [facility], 5, ONE ENEMA PERRECTUM DAY 5 WITHOUT BOWEL MOVEMENT / IF NO RESULTS... Start Date: 03/16/22 Status: Ordered Ditropan XL 10 mg oral tablet, extended release 10, mg, 1, tablet, By Mouth, Daily, 0, 01/03/07 9:24:09, Print ANNE-MARIE Number, [id number], Constant Indicator Start Date: 01/03/07 Status: Ordered DOK 100 mg oral tablet See Instructions, TAKE 1 TABLET BY MOUTH TWICE DAILY (STOOL SOFTENER EQUIVALENT), # 60 tablet, 5 Refills, [facility], 175.2, cm, 07/20/21 10:29:00 EDT, Height [...] Replace Required Details, Route toPharmacy Electronically, [facility], 175.2, cm... Start Date: 04/09/20 Status: Ordered fit to pt fit to pt, See Instructions, # 1 units, Refills 0, Tot. Refills 0, Maintenance, rigid cervical collar. Fit to pt., 06/21/18 15:59:47 EDT, Compound Start Date: 06/21/18 Status: Ordered Flomax 0.4 mg oral capsule 0.4, mg, 1, capsule, By Mouth, Daily, 0, 0, 01/03/07 9:24:42, Print ANNE-MARIE Number, [id number], Constant Indicator Start Date: 01/03/07 Status: Ordered [...] Gm, 11 Refills, Maintenance, 12/11/19 11:11:00 EST, [facility], APPLY TO EXTERNAL HEMMORRHOIDS TWICE DAILY PRN PER DR FREEMAN, 175.2, cm, 10/12/19 8:18:00 EST, Height,... Start Date: 12/11/19 Status: Ordered ibuprofen 400 mg oral tablet 400 mg, 1, tablet, By Mouth, 3 times a day, PRN, # 30 tablet, Refills 1, Tot. Refills 1, Maintenance, as needed for pain, 12/25/18 11:23:03 EST, Route to Pharmacy Electronically, [id number], [facility] Start Date: 12/25/18 Status: Ordered lactulose 10 gm/15 ml oral syrup = 20 Gm, By Mouth, Daily at bedtime, GIVE WITH., # 946 mL, 11 Refills, [facility], 31, TWO TABLESPOONFULS BY MOUTH DAILY [...] FOR ALLERGIC RHINITIS, Route to Pharmacy Electronically, [facility], 175.2, cm, 07/20/21 10:29:00 EDT, Height Start Date: 11/10/21 Status: Ordered Milk of Magnesia 8% oral suspension 30 mL, By Mouth, Daily at bedtime, FOR CONSTIPATION XWUW=4615 MG., # 900 mL, 5 Refills, [facility], 175.2, cm, 07/20/21 10:29:00 EDT, Height Start Date: 11/24/21 Status: Ordered omeprazole 40 mg oral enteric coated capsule See Instructions, TAKE 1 CAPSULE BY MOUTH DAILY FOR GERD IN AM, # 30 capsule, 2 Refills, [facility], 175.2, cm, 07/20/21 10:29:00 EDT, Height Start Date: 01/27/22 Status: Ordered polyethylene glycol 3350 oral powder for reconstitution See Instructions, MIX 17GM WITH 8 OUNCES OF WATER OR JUICE DAILY AT 5PM FOR CONSTIPATION (POLYETHYLENE GLYCOL), # 510 Gm, 11 Refills, [facility], 30, MIX 17GM WITH 8 OUNCES OF WATER OR JUICE DAILY AT 5PM FOR CONSTIPATION (POLYETHYLENE GLYCOL), 17... Start Date: 09/22/21 Status: Ordered pravastatin 40 mg oral tablet See Instructions, TAKE 1 TABLET BY MOUTH DAILY IN THE PM FOR HYPERLIPIDEMIA, # 30 tablet, 5 Refills, [facility], 175.2, cm, 07/20/21 10:29:00 EDT, Height Start Date: 11/09/21 Status: Ordered Robafen 100 mg/5 ml oral liquid 10 mL, By Mouth, 4 times a day, PRN NEEDED FOR COUGH/NOTIFY MD IF NO RELIEF AFTER 48 HRS / DOSE =, GUAIFENESIN (TUSSIN MUCUS-CONGEST 100MG/5ML., # 240 mL, 4 Refills, Acute 11/25/22 12:02:00 EST, 11/25/21 12:02:00 EST, [facility], 175.2, cm, 09... Start Date: 11/25/21 Stop Date: 11/25/22 Status: Ordered Shingrix intramuscular injection 0.5 mL, Intramuscular, Once, # 0.5 mL, 1 Refills, Soft Stop, 06/28/18 10:24:17 EDT Start Date: 06/28/18 Status: Ordered terbinafine 1% topical cream 1 application, Topically, 2 times a day, # 30 Gm, 0 Refills, Maintenance, 04/06/22 16:14:00 EDT, Cream, [facility], Partial fill upon patient request if the prescription is for a schedule II opioid drug., 1 application Topically 2 times a day,x14... Start Date: 04/06/22 Stop Date: 04/20/22 Status: Ordered thera multivitamin thera multivitamin, See [...] Raynaud's phenomenon(Confirmed) Active UI (urinary incontinence)(Confirmed) Active 39851; repeat 2020; repeat 2018 3egd 2012 barretts, repeat 2014 4egd 2010 positive barretts repeat 2011 5C2 6colonoscopy 2006 repeat 2016 7repeat 2024 [id number] Social History Social History Type Response Smoking Status Never smoker entered on: 06/25/16 Sex
--- OUTSIDE RECORDS SUMMARY | 2023-06-15 11:54 | XMS_ITS | Continuity of Care Document ---
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 already received on 08/07/2015 Medications bacitracin zinc 500 units/g topical ointment See Instructions, APPLY SMALL AMOUNT TOPICALLY TO SUPERFICIAL WOUNDS 4 TIMES A DAY NEEDED AN ANTIBACTERIAL / CALL MD IF USING FOR MORE THAN 7 DAYS, # 1 Gm, 11 Refills, Acute, [facility], 7, APPLY SMALL AMOUNT TOPICALLY TO [...] CONSTIPATION, # 7 supp, 11 Refills, Acute, [facility], 175.2, cm, 10/12/19 8:18:00 EST, Height [...] Acute 07/27/21 9:44:00 EDT, 08/01/20 9:44:00 EDT, [facility], 1 capsule By Mouth Daily,x90 days,Instr:FOR [...] Replace Required Details, Route to Pharmacy Electronically, [facility] Start Date: 12/09/20 Status: Ordered Ditropan XL 10 mg oral tablet, extended release 10, mg, 1, tablet, By Mouth, Daily, 0, 01/03/07 9:24:09, Print ANNE-MARIE Number, [id number], Constant Indicator Start Date: 01/03/07 Status: Ordered DOK 100 mg oral tablet See Instructions, TAKE 1 TABLET BY MOUTH TWICE DAILY (STOOL SOFTENER EQUIVALENT), # 60 tablet, 5 Refills, Soft Stop, 11/06/20 9:22:00 EST, [facility], 175.2, cm, 07/09/20 10:27:00 EDT, Height [...] Instructions Replace Required Details, Route toPharmacy Electronically, [facility], 175.2, cm... Start Date: 04/09/20 Status: [...] 0, 0, 01/03/07 9:24:42, Print ANNE-MARIE Number, [id number], Constant Indicator Start Date: 01/03/07 Status: Ordered [...] 12/25/18 11:23:03 EST, Route to Pharmacy Electronically, [id number], [facility] Start Date: 12/25/18 Status: Ordered lactulose 10 gm/15 ml oral syrup See Instructions, TWO TABLESPOONFULS BY MOUTH DAILY AT BEDTIME FOR CONSTIPATION / GIVE WITH LIQUIDSJUICE/WATER / 2 TBSP = 30 ML DOSE = 20 GRAMS, # 946 mL, 11 Refills, Soft Stop, 08/15/20 7:20:00 EDT, [facility], TWO TABLESPOONFULS BY MOUTH DAILY... Start Date: 08/15/20 Status: Ordered loratadine 10 mg oral tablet 10 mg, 1, tablet, By Mouth, Daily, PER DR FREEMAN, # 30 tablet, Refills 11, Tot. Refills 11, 02/19/20 9:46:00 EDT, Route to Pharmacy Electronically, [facility], 175.2, cm, 10/12/19 8:18:00 EST, Height, 73.2, kg, 03/05/18 17:34:00 EDT, Dry Weight Start Date: 02/19/20 Status: Ordered Milk of Magnesia 8% oral suspension 30 mL = 2.4 Gm, By Mouth, Daily at bedtime, # 900 mL, 5 Refills, Maintenance, 09/02/20 12:20:00 EST, [facility], 175.2, cm, 07/09/20 10:27:00 EDT, Height, Dry Weight Start Date: 09/02/20 Stop Date: 03/01/21 Status: Ordered omeprazole 40 mg oral enteric coated capsule 1 capsule = 40 mg, By Mouth, Daily, # 30 capsule, 5 Refills, Maintenance, 12/04/20 6:53:00 EST, EC Capsule, [facility], Partial fill upon patient request if the prescription is for a schedule IIopioid drug., 175.2, cm, 11/28/20 7:21:00 EST, Height Start Date: 12/04/20 Status: Ordered polyethylene glycol 3350 oral powder for reconstitution = 17 Gm, By Mouth, Daily, dissolve in water or juice, # 527 Gm, 11 Refills, Maintenance, 08/26/20 9:54:00 EDT, [facility], 17 Gm By Mouth Daily,Instr:dissolve in water or juice, 175.2, cm, 07/09/20 10:27:00 EDT, Height Start Date: 08/26/20 Status: Ordered pravastatin 40 mg oral tablet 1 tablet = 40 mg, By Mouth, Daily, Pt needs labs, # 30 tablet, 2 Refills, Soft Stop, 11/17/20 12:45:00 EST, [facility], 175.2, cm, 07/09/20 10:27:00 EDT, Height Start Date: 11/17/20 Status: Ordered Robafen 100 mg/5 ml oral liquid 10 mL, By Mouth, 4 times a day, PRN NEEDED FOR COUGH/NOTIFY MD IF NO RELIEF AFTER 48 HRS / DOSE =, GUAIFENESIN (TUSSIN MUCUS-CONGEST 100MG/5ML., # 240 mL, 4 Refills, Acute, 10/28/20 6:38:00 EST, [facility], 175.2, cm, 07/09/20 10:27:00 EDT, He... [...] 08/07/20 12:37:00 EDT, Route to Pharmacy Electronically, [facility], 175.2, cm, 07/09/20 10:27:00 EDT, Height, [...] Raynaud's phenomenon(Confirmed) Active UI (urinary incontinence)(Confirmed) Active 50789; repeat 2020; repeat 2018 3egd 2012 barretts, repeat 2014 4egd 2010 positive barretts repeat 2011 5C2 6colonoscopy 2007 nl repeat 2016 7repeat 2024 [id number] Social History Social History Type Response Smoking Status Never smoker entered on: 06/25/16 Sex
--- OUTSIDE RECORDS SUMMARY | 2023-06-15 11:54 | XMS_ITS | Continuity of Care Document ---
Author Name Unknown Organization [facility] lt Address [address] [place] [address]- Care Team Providers Care Filling Station Attendant Name Role Phone Brandon Freeman MD Primary Care Physician [phone] [facility] 01[facility]07[facility]21 - 02/06/21 [facility] Adult [address] [place] [address]- Allergies, Adverse Reactions, Alerts Substance Reaction Severity [...] GIVEN 5Admin Note: FLU CLINIC 6Admin Note: [employer] [facility] VIS [phone] given 7Admin Note: given in clinic 8Result Comment: Pt. already received on 08/07/2015 Medications bacitracin zinc 500 units/g topical ointment See Instructions, APPLY SMALL AMOUNT TOPICALLY TO SUPERFICIAL WOUNDS 4 TIMES A DAY NEEDED AN ANTIBACTERIAL / CALL MD IF USING FOR MORE THAN 7 DAYS, # 1 Gm, 11 Refills, Acute, [facility], 7, APPLY SMALL AMOUNT TOPICALLY TO [...] CONSTIPATION, # 7 supp, 11 Refills, Acute, [facility], 175.2, cm, 10/12/19 8:18:00 EST, Height [...] Acute 07/27/21 9:44:00 EDT, 08/01/20 9:44:00 EDT, [facility], 1 capsule By Mouth Daily,x90 days,Instr:FOR INTESTINAL HEALTH., 175.2, cm, 07/09/20 10:27:00 E... Start Date: 08/01/20 Stop Date: 07/27/21 Status: Ordered diazepam 10 mg oral tablet See Instructions, PRN, 1 tablet By Mouth 1 hour prior to medical appointments, # 1 tablet, Refills 5, Tot. Refills 5, Maintenance, for anxiety, 01/07/21 11:49:00 EST, Instructions Replace Required Details, Route to Pharmacy Electronically, [facility] Start Date: 01/07/21 Status: Ordered Ditropan XL 10 mg oral tablet, extended release 10, mg, 1, tablet, By Mouth, Daily, 0, 01/03/07 9:24:09, Print ANNE-MARIE Number, [id number], Constant Indicator Start Date: 01/03/07 Status: Ordered DOK 100 mg oral tablet See Instructions, TAKE 1 TABLET BY MOUTH TWICE DAILY (STOOL SOFTENER EQUIVALENT), # 60 tablet, 5 Refills, Soft Stop, 11/06/20 9:22:00 EST, [facility], 175.2, cm, 07/09/20 10:27:00 EDT, Height [...] Instructions Replace Required Details, Route toPharmacy Electronically, [facility], 175.2, cm... Start Date: 04/09/20 Status: [...] 0, 0, 01/03/07 9:24:42, Print ANNE-MARIE Number, [id number], Constant Indicator Start Date: 01/03/07 Status: Ordered [...] 12/25/18 11:23:03 EST, Route to Pharmacy Electronically, [id number], [facility] Start Date: 12/25/18 Status: Ordered lactulose 10 gm/15 ml oral syrup See Instructions, TWO TABLESPOONFULS BY MOUTH DAILY AT BEDTIME FOR CONSTIPATION / GIVE WITH LIQUIDSJUICE/WATER / 2 TBSP = 30 ML DOSE = 20 GRAMS, # 946 mL, 11 Refills, Soft Stop, 08/15/20 7:20:00 EDT, [facility], TWO TABLESPOONFULS BY MOUTH DAILY... Start Date: 08/15/20 Status: Ordered lisinopril 20 mg oral tablet 1, tablet, By Mouth, Daily in AM, FOR HTN / CALL MD IF SBP>160 OR DBP>100 OR SBP<90 OR DBP<50., # 30 tablet, Refills 5, Tot. Refills 0, Maintenance, 02/03/21 12:45:00 EDT, Route to Pharmacy Electronically, [facility], 175.2, cm, 11/28/20 7:21:00... Start Date: 02/03/21 Status: Ordered loratadine 10 mg oral tablet 10 mg, 1, tablet, By Mouth, Daily, PER DR FREEMAN, # 30 tablet, Refills 11, Tot. Refills 11, 02/19/20 9:46:00 EDT, Route to Pharmacy Electronically, [facility], 175.2, cm, 10/12/19 8:18:00 EST, Height, 73.2, kg, 03/05/18 17:34:00 EDT, Dry Weight Start Date: 02/19/20 Status: Ordered Milk of Magnesia 8% oral suspension 30 mL = 2.4 Gm, By Mouth, Daily at bedtime, # 900 mL, 5 Refills, Maintenance, 09/02/20 12:20:00 EST, [facility], 175.2, cm, 07/09/20 10:27:00 EDT, Height, Dry Weight Start Date: 09/02/20 Stop Date: 03/01/21 Status: Ordered omeprazole 40 mg oral enteric coated capsule 1 capsule = 40 mg, By Mouth, Daily, # 30 capsule, 5 Refills, Maintenance, 12/04/20 6:53:00 EST, EC Capsule, [facility], Partial fill upon patient request if the prescription is for a schedule IIopioid drug., 175.2, cm, 11/28/20 7:21:00 EST, Height Start Date: 12/04/20 Status: Ordered polyethylene glycol 3350 oral powder for reconstitution = 17 Gm, By Mouth, Daily, dissolve in water or juice, # 527 Gm, 11 Refills, Maintenance, 08/26/20 9:54:00 EDT, [facility], 17 Gm By Mouth Daily,Instr:dissolve in water or juice, 175.2, cm, 07/09/20 10:27:00 EDT, Height Start Date: 08/26/20 Status: Ordered pravastatin 40 mg oral tablet 1 tablet = 40 mg, By Mouth, Daily, Pt needs labs, # 30 tablet, 2 Refills, Soft Stop, 11/17/20 12:45:00 EST, [facility], 175.2, cm, 07/09/20 10:27:00 EDT, Height Start Date: 11/17/20 Status: Ordered Robafen 100 mg/5 ml oral liquid 10 mL, By Mouth, 4 times a day, PRN NEEDED FOR COUGH/NOTIFY MD IF NO RELIEF AFTER 48 HRS / DOSE =, GUAIFENESIN (TUSSIN MUCUS-CONGEST 100MG/5ML., # 240 mL, 4 Refills, Acute, 10/28/20 6:38:00 EST, [facility], 175.2, cm, 07/09/20 10:27:00 EDT, He... [...] Raynaud's phenomenon(Confirmed) Active UI (urinary incontinence)(Confirmed) Active 99385; repeat 2020; repeat 2018 3egd 2012 barretts, repeat 2015 4egd 2010 positive barretts repeat 2012 5C2 6colonoscopy 2007 nl repeat 2016 7repeat 2024 [id number] Social History Social History Type Response Smoking Status Never smoker entered on: 06/25/16 Sex
--- OUTSIDE RECORDS SUMMARY | 2023-06-15 11:54 | XMS_ITS | Continuity of Care Document ---
Author Name Unknown Organization [facility]ace [facility] Address [address] [place] [address]- Care Team Providers Care Marketing Business Analyst Name Role Phone Brandon Freeman MD Primary Care Physician [phone] [facility]): 07/17[facility]21 - 08/16/21 [facility] Adult [address] [place] [address]- Allergies, Adverse Reactions, Alerts Substance Reaction Severity [...] GIVEN 5Admin Note: FLU CLINIC 6Admin Note: [employer] [facility] VIS [phone] given 7Admin Note: given in clinic 8Result Comment: Pt. already received on 08/07/2015 Medications bacitracin zinc 500 units/g topical ointment See Instructions, APPLY SMALL AMOUNT TOPICALLY TO SUPERFICIAL WOUNDS 4 TIMES A DAY NEEDED AN ANTIBACTERIAL / CALL MD IF USING FOR MORE THAN 7 DAYS, # 1 Gm, 11 Refills, Acute, [facility], 7, APPLY SMALL AMOUNT TOPICALLY TO [...] CONSTIPATION, # 7 supp, 11 Refills, Acute, [facility], 175.2, cm, 10/12/19 8:18:00 EST, Height [...] INTESTINAL HEALTH., # 30 capsule, 11 Refills, [facility], 30, TAKE 1 CAPSULE BY MOUTH DAILY FOR INTESTINAL HEALTH, 175.2, cm, 07/20/21 10:29:00 EDT, Height Start Date: 07/23/21 Status: Ordered diazepam 10 mg oral tablet See Instructions, PRN, 1 tablet By Mouth 2 hour prior to medical appointments, # 1 tablet, Refills 5, Tot. Refills 5, Maintenance, for anxiety, 07/20/21 10:26:00 EDT, Instructions Replace Required Details, Route to Pharmacy Electronically, [facility] Start Date: 07/20/21 Status: Ordered Disposable Enema 7 g-19 g rectal enema See Instructions, ONE ENEMA PER RECTUM DAY 5 WITHOUT BOWEL MOVEMENT / IF NO RESULTS NOTIFY MD / FORCONSTIPATION / IC FLEET ENEMA 7 GM - 19 GM, # 133 mL, 11 Refills, Soft Stop, [facility], 5, ONE ENEMA PER RECTUM DAY 5 WITHOUT BOWEL MOVEMENT / IF... Start Date: 03/11/21 Status: Ordered Ditropan XL 10 mg oral tablet, extended release 10, mg, 1, tablet, By Mouth, Daily, 0, 01/03/07 9:24:09, Print ANNE-MARIE Number, [id number], Constant Indicator Start Date: 01/03/07 Status: Ordered DOK 100 mg oral tablet See Instructions, TAKE 1 TABLET BY MOUTH TWICE DAILY (STOOL SOFTENER EQUIVALENT), # 60 tablet, 5 Refills, Maintenance, [facility], 175.2, cm, 11/28/20 7:21:00 EST, Height [...] Instructions Replace Required Details, Route toPharmacy Electronically, [facility], 175.2, cm... Start Date: 04/09/20 Status: Ordered fit to pt fit to pt, See Instructions, # 1 units, Refills 0, Tot. Refills 0, Maintenance, rigid cervical collar. Fit to pt., 06/21/18 15:59:47 EDT, Compound Start Date: 06/21/18 Status: Ordered Flomax 0.4 mg oral capsule 0.4, mg, 1, capsule, By Mouth, Daily, 0, 0, 01/03/07 9:24:42, Print ANNE-MARIE Number, [id number], Constant Indicator Start Date: 01/03/07 Status: Ordered [...] Gm, 11 Refills, Maintenance, 12/11/19 11:11:00 EST, [facility], APPLY TO EXTERNAL HEMMORRHOIDS TWICE DAILY PRN PER DR FREEMAN, 175.2, cm, 10/12/19 8:18:00 EST, Height,... Start Date: 12/11/19 Status: Ordered ibuprofen 400 mg oral tablet 400 mg, 1, tablet, By Mouth, 3 times a day, PRN, # 30 tablet, Refills 1, Tot. Refills 1, Maintenance, as needed for pain, 12/25/18 11:23:03 EST, Route to Pharmacy Electronically, [id number], [facility] Start Date: 12/25/18 Status: Ordered lactulose 10 gm/15 ml oral syrup See Instructions, TWO TABLESPOONFULS BY MOUTH DAILY AT BEDTIME FOR CONSTIPATION / GIVE WITH LIQUIDSJUICE/WATER / 2 TBSP = 30 ML DOSE = 20 GRAMS, # 946 mL, 11 Refills, Soft Stop, 08/15/20 7:20:00 EDT, [facility], TWO TABLESPOONFULS BY MOUTH DAILY... Start Date: 08/15/20 Status: Ordered lisinopril 20 mg oral tablet See Instructions, TAKE 1 TABLET BY MOUTH DAILY IN THE AM FOR HTN / CALL MD IF SBP>160 OR DBP>100 OR SBP<90 OR DBP<50, # 30 tablet, Refills 5, Instructions Replace Required Details, Route to Pharmacy Electronically, [facility], 175.2, cm, 07/20/21... Start Date: 08/04/21 Status: Ordered loratadine 10 mg oral tablet 10 mg, 1, tablet, By Mouth, Daily, PER DR FREEMAN, # 30 tablet, Refills 11, Tot. Refills 11, 02/19/20 9:46:00 EDT, Route to Pharmacy Electronically, [facility], 175.2, cm, 10/12/19 8:18:00 EST, Height, 73.2, kg, 03/05/18 17:34:00 EDT, Dry Weight Start Date: 02/19/20 Status: Ordered Milk of Magnesia 8% oral suspension 30 mL = 2.4 Gm, By Mouth, Daily at bedtime, # 900 mL, 5 Refills, Maintenance, 04/02/21 7:35:00 EDT,[facility], 175.2, cm, 11/28/20 7:21:00 EST, Height Start Date: 04/02/21 Stop Date: 09/29/21 Status: Ordered omeprazole 40 mg oral enteric coated capsule See Instructions, TAKE 1 CAPSULE BY MOUTH DAILY FOR GERD, # 30 capsule, 2 Refills, Maintenance, [facility], 175.2, cm, 11/28/20 7:21:00 EST, Height Start Date: 06/02/21 Status: Ordered polyethylene glycol 3350 oral powder for reconstitution = 17 Gm, By Mouth, Daily, dissolve in water or juice, # 527 Gm, 11 Refills, Maintenance, 08/26/20 9:54:00 EDT, [facility], 17 Gm By Mouth Daily,Instr:dissolve in [...] Raynaud's phenomenon(Confirmed) Active UI (urinary incontinence)(Confirmed) Active 78400; repeat 2020; repeat 2017 3egd 2011 barretts, repeat 2014 4egd 2009 positive barretts repeat 2012 5C2 6colonoscopy 2007 repeat 2017 7repeat 2024 [id number] Social History Social History Type Response Smoking Status Never smoker entered on: 06/25/16 Sex
--- OUTSIDE RECORDS SUMMARY | 2023-06-15 11:54 | XMS_ITS | Continuity of Care Document ---
Author Name Unknown Organization [facility]ace [facility] Address [address] [place] [address]- Care Team Providers Care Development Administrator Name Role Phone Brandon Freeman MD Primary Care Physician [facility] 05[facility]20 - 06/07/20 [facility] Adult [address] [place] [address]- [facility] Allergies, Adverse Reactions, Alerts Substance Reaction Severity [...] GIVEN 3Admin Note: FLU CLINIC 4Admin Note: [email or web address] [facility] VIS [phone] given 5Admin Note: given by lisy short [...] CONSTIPATION, # 7 supp, 11 Refills, Acute, [facility], 175.2, cm, 10/12/19 8:18:00 EST, Height [...] capsule, 4 Refills, Acute, 02/28/20 12:34:00 EDT, [facility], 30, TAKE 1 CAPSULE BY MOUTH [...] Replace Required Details, Route to Pharmacy Electronically, [facility] Start Date: 11/05/19 Status: Ordered Ditropan XL 10 mg oral tablet, extended release 10, mg, 1, tablet, By Mouth, Daily, 0, 01/03/07 9:24:09, Print ANNE-MARIE Number, [id number], Constant Indicator Start Date: 01/03/07 Status: Ordered DOK 100 mg oral tablet See Instructions, TAKE 1 TABLET BY MOUTH TWICE DAILY (STOOL SOFTENER EQUIVALENT), # 60 tablet, 5 Refills, Soft Stop, 05/08/20 13:17:00 EDT, [facility], 175.2, cm, 10/12/19 8:18:00 EST, Height, [...] Instructions Replace Required Details, Route toPharmacy Electronically, [facility], 175.2, cm... Start Date: 04/09/20 Status: [...] 0, 0, 01/03/07 9:24:42, Print ANNE-MARIE Number, [id number], Constant Indicator Start Date: 01/03/07 Status: Ordered [...] 12/25/18 11:23:03 EST, Route to Pharmacy Electronically, [id number], [facility] Start Date: 12/25/18 Status: Ordered lactulose 10 gm/15 ml oral syrup See Instructions, # 946 mL, Refills 9 Tot. Refills 9, TWO TABLESPOONFULS BY MOUTH DAILY AT BEDTIME FOR CONSTIPATION / GIVE WITH LIQUIDS JUICE/WATER / 2 TBSP = 30 ML DOSE = 20 GRAMS, [facility] Start Date: 08/10/19 Status: Ordered loratadine 10 mg oral tablet 10 mg, 1, tablet, By Mouth, Daily, PER DR FREEMAN, # 30 tablet, Refills 11, Tot. Refills 11, 02/19/20 9:46:00 EDT, Route to Pharmacy Electronically, [facility], 175.2, cm, 10/12/19 8:18:00 EST, Height, 73.2, kg, 03/05/18 17:34:00 EDT, Dry Weight Start Date: 02/19/20 Status: Ordered Milk of Magnesia 8% oral suspension 30 mL = 2.4 Gm, By Mouth, Daily at bedtime, # 900 mL, 5 Refills, Maintenance, 02/20/20 12:44:00 EDT, [facility], 175.2, cm, 10/12/19 8:18:00 EST, Height, 73.2, kg, 03/05/18 17:34:00 EDT, Dry Weight Start Date: 02/20/20 Stop Date: 08/18/20 Status: Ordered omeprazole 20 mg oral enteric coated capsule 1 capsule = 20 mg, By Mouth, 2 times a day, # 30 capsule, 11 Refills, Soft Stop, 05/07/20 17:03:00 EDT, [facility], 175.2, cm, 10/12/19 8:18:00 EST, Height, [...] Raynaud's phenomenon(Confirmed) Active UI (urinary incontinence)(Confirmed) Active 85077; repeat 2020; repeat 2017 3egd 2012 barretts, repeat 2014 4egd 2010 positive barretts repeat 2012 5C2 6colonoscopy 2007 nl repeat 2016 7repeat 2024 [id number] Social History Social History Type Response Smoking Status Never smoker entered on: 06/25/16 Sex
--- OUTSIDE RECORDS SUMMARY | 2023-06-15 11:54 | XMS_ITS | Continuity of Care Document ---
Author Name Unknown Organization [facility] Address [address] [place] [address]- Care Team Providers Care Director Digital Name Role Phone Brandon Freeman MD Primary Care Physician [phone] [facility] 02[facility]22 - 03/04/22 [facility] Adult [address] [place] [address]- Allergies, Adverse Reactions, Alerts Substance Reaction Severity [...] GIVEN 5Admin Note: FLU CLINIC 6Admin Note: [employer] [facility] VIS [phone] given 7Admin Note: given in clinic 8Result [...] FOR CONSTIPATION, # 7 supp, 11 Refills, [facility], 175.2, cm, 07/20/21 10:29:00 EDT, Height [...] INTESTINAL HEALTH., # 30 capsule, 11 Refills, [facility], 30, TAKE 1 CAPSULE BY MOUTH [...] # 133 mL, 11 Refills, Soft Stop, [facility], 5, ONE ENEMA PER RECTUM DAY 5 WITHOUT BOWEL MOVEMENT / IF... Start Date: 03/11/21 Status: Ordered Ditropan XL 10 mg oral tablet, extended release 10, mg, 1, tablet, By Mouth, Daily, 0, 01/03/07 9:24:09, Print ANNE-MARIE Number, [id number], Constant Indicator Start Date: 01/03/07 Status: Ordered DOK 100 mg oral tablet See Instructions, TAKE 1 TABLET BY MOUTH TWICE DAILY (STOOL SOFTENER EQUIVALENT), # 60 tablet, 5 Refills, [facility], 175.2, cm, 07/20/21 10:29:00 EDT, Height [...] Instructions Replace Required Details, Route toPharmacy Electronically, [facility], 175.2, cm... Start Date: 04/09/20 Status: Ordered fit to pt fit to pt, See Instructions, # 1 units, Refills 0, Tot. Refills 0, Maintenance, rigid cervical collar. Fit to pt., 06/21/18 15:59:47 EDT, Compound Start Date: 06/21/18 Status: Ordered Flomax 0.4 mg oral capsule 0.4, mg, 1, capsule, By Mouth, Daily, 0, 0, 01/03/07 9:24:42, Print ANNE-MARIE Number, [id number], Constant Indicator Start Date: 01/03/07 Status: Ordered [...] Gm, 11 Refills, Maintenance, 12/11/19 11:11:00 EST, [facility], APPLY TO EXTERNAL HEMMORRHOIDS TWICE DAILY PRN PER DR FREEMAN, 175.2, cm, 10/12/19 8:18:00 EST, Height,... Start Date: 12/11/19 Status: Ordered ibuprofen 400 mg oral tablet 400 mg, 1, tablet, By Mouth, 3 times a day, PRN, # 30 tablet, Refills 1, Tot. Refills 1, Maintenance, as needed for pain, 12/25/18 11:23:03 EST, Route to Pharmacy Electronically, [id number], [facility] Start Date: 12/25/18 Status: Ordered lactulose 10 gm/15 ml oral syrup = 20 Gm, By Mouth, Daily at bedtime, GIVE WITH., # 946 mL, 11 Refills, [facility], 31, TWO TABLESPOONFULS BY MOUTH DAILY [...] FOR ALLERGIC RHINITIS, Route to Pharmacy Electronically, [facility], 175.2, cm, 07/20/21 10:29:00 EDT, Height Start Date: 11/10/21 Status: Ordered Milk of Magnesia 8% oral suspension 30 mL, By Mouth, Daily at bedtime, FOR CONSTIPATION NDDH=3426 MG., # 900 mL, 5 Refills, [facility], 175.2, cm, 07/20/21 10:29:00 EDT, Height Start Date: 11/24/21 Status: Ordered omeprazole 40 mg oral enteric coated capsule See Instructions, TAKE 1 CAPSULE BY MOUTH DAILY FOR GERD IN AM, # 30 capsule, 2 Refills, [facility], 175.2, cm, 07/20/21 10:29:00 EDT, Height Start Date: 01/27/22 Status: Ordered polyethylene glycol 3350 oral powder for reconstitution See Instructions, MIX 17GM WITH 8 OUNCES OF WATER OR JUICE DAILY AT 5PM FOR CONSTIPATION (POLYETHYLENE GLYCOL), # 510 Gm, 11 Refills, [facility], 30, MIX 17GM WITH 8 OUNCES OF WATER OR JUICE DAILY AT 5PM FOR CONSTIPATION (POLYETHYLENE GLYCOL), 17... Start Date: 09/22/21 Status: Ordered pravastatin 40 mg oral tablet See Instructions, TAKE 1 TABLET BY MOUTH DAILY IN THE PM FOR HYPERLIPIDEMIA, # 30 tablet, 5 Refills, [facility], 175.2, cm, 07/20/21 10:29:00 EDT, Height Start Date: 11/09/21 Status: Ordered Robafen 100 mg/5 ml oral liquid 10 mL, By Mouth, 4 times a day, PRN NEEDED FOR COUGH/NOTIFY MD IF NO RELIEF AFTER 48 HRS / DOSE =, GUAIFENESIN (TUSSIN MUCUS-CONGEST 100MG/5ML., # 240 mL, 4 Refills, Acute 11/25/22 12:02:00 EST, 11/25/21 12:02:00 EST, [facility], 175.2, cm, 09... Start Date: 11/25/21 [...] VITAMIN SUPPLEMENT, # 30 tablet, 5 Refills, [facility], 30, TAKE 1 TABLET BY MOUTH [...] Raynaud's phenomenon(Confirmed) Active UI (urinary incontinence)(Confirmed) Active 16919; repeat 2020; repeat 2018 3egd 2012 barretts, repeat 2014 4egd 2010 positive barretts repeat 2011 5C2 6colonoscopy 2006 nl repeat 2016 7repeat 2024 [id number] Social History Social History Type Response Smoking Status Never smoker entered on: 06/25/16 Sex
--- OUTSIDE RECORDS SUMMARY | 2023-06-15 11:54 | XMS_ITS | Continuity of Care Document ---
Author Name Unknown Organization [facility]ace [facility] Address [address] [place] [address]- Care Team Providers Care Special Tester Name Role Phone Brandon Freeman MD Primary Care Physician [facility] - 11/28/20 [facility] Adult [address] [place] [address]- Allergies, Adverse Reactions, Alerts Substance Reaction Severity [...] GIVEN 5Admin Note: [facility]INIC 6Admin Note: [employer] [facility] VIS [phone] given 7Admin Note: given in clinic 8Result [...] Replace Required Details, Route to Pharmacy Electronically, [facility] Start Date: 11/05/19 Status: Ordered Ditropan XL 10 mg oral tablet, extended release 10, mg, 1, tablet, By Mouth, Daily, 0, 01/03/07 9:24:09, Print ANNE-MARIE Number, [id number], Constant Indicator Start Date: 01/03/07 Status: Ordered DOK 100 mg oral tablet See Instructions, TAKE 1 TABLET BY MOUTH TWICE DAILY (STOOL SOFTENER EQUIVALENT), # 60 tablet, 5 Refills, Soft Stop, 11/06/20 9:22:00 EST, [facility], 175.2, cm, 07/09/20 10:27:00 EDT, Height [...] Instructions Replace Required Details, Route toPharmacy Electronically, [facility], 175.2, cm... Start Date: 04/09/20 Status: [...] 0, 0, 01/03/07 9:24:42, Print ANNE-MARIE Number, [id number], Constant Indicator Start Date: 01/03/07 Status: Ordered [...] 12/25/18 11:23:03 EST, Route to Pharmacy Electronically, [id number], [facility] Start Date: 12/25/18 Status: Ordered lactulose 10 gm/15 ml oral syrup See Instructions, TWO TABLESPOONFULS BY MOUTH DAILY AT BEDTIME FOR CONSTIPATION / GIVE WITH LIQUIDSJUICE/WATER / 2 TBSP = 30 ML DOSE = 20 GRAMS, # 946 mL, 11 Refills, Soft Stop, 08/15/20 7:20:00 EDT, [facility], TWO TABLESPOONFULS BY MOUTH DAILY... Start Date: 08/15/20 Status: Ordered loratadine 10 mg oral tablet 10 mg, 1, tablet, By Mouth, Daily, PER DR FREEMAN, # 30 tablet, Refills 11, Tot. Refills 11, 02/19/20 9:46:00 EDT, Route to Pharmacy Electronically, [facility], 175.2, cm, 10/12/19 8:18:00 EST, Height, 73.2, kg, 03/05/18 17:34:00 EDT, Dry Weight Start Date: 02/19/20 Status: Ordered Milk of Magnesia 8% oral suspension 30 mL = 2.4 Gm, By Mouth, Daily at bedtime, # 900 mL, 5 Refills, Maintenance, 09/02/20 12:20:00 EST, [facility], 175.2, cm, 07/09/20 10:27:00 EDT, Height, Dry Weight Start Date: 09/02/20 Stop Date: 03/01/21 Status: Ordered omeprazole 20 mg oral enteric coated capsule 1 capsule = 20 mg, By Mouth, 2 times a day, # 30 capsule, 11 Refills, Soft Stop, 05/07/20 17:03:00 EDT, [facility], 175.2, cm, 10/12/19 8:18:00 EST, Height, Dry Weight Start Date: 05/07/20 Status: Ordered polyethylene glycol 3350 oral powder for reconstitution = 17 Gm, By Mouth, Daily, dissolve in water or juice, # 527 Gm, 11 Refills, Maintenance, 08/26/20 9:54:00 EDT, [facility], 17 Gm By Mouth Daily,Instr:dissolve in water or juice, 175.2, cm, 07/09/20 10:27:00 EDT, Height Start Date: 08/26/20 Status: Ordered pravastatin 40 mg oral tablet 1 tablet = 40 mg, By Mouth, Daily, Pt needs labs, # 30 tablet, 2 Refills, Soft Stop, 11/17/20 12:45:00 EST, [facility], 175.2, cm, 07/09/20 10:27:00 EDT, Height Start Date: 11/17/20 Status: Ordered Robafen 100 mg/5 ml oral liquid 10 mL, By Mouth, 4 times a day, PRN NEEDED FOR COUGH/NOTIFY MD IF NO RELIEF AFTER 48 HRS / DOSE =, GUAIFENESIN (TUSSIN MUCUS-CONGEST 100MG/5ML., # 240 mL, 4 Refills, Acute, 10/28/20 6:38:00 EST, [facility], 175.2, cm, 07/09/20 10:27:00 EDT, He... [...] 08/07/20 12:37:00 EDT, Route to Pharmacy Electronically, [facility], 175.2, cm, 07/09/20 10:27:00 EDT, Height, [...] Raynaud's phenomenon(Confirmed) Active UI (urinary incontinence)(Confirmed) Active 11928; repeat 2020; repeat 2017 3egd 2012 barretts, repeat 2014 4egd 2010 positive barretts repeat 2011 5C2 6colonoscopy 2007 nl repeat 2016 7repeat 2024 [id number] Social History Social History Type Response Smoking Status Never smoker entered on: 06/25/16 Sex
--- OUTSIDE RECORDS SUMMARY | 2023-06-15 11:54 | XMS_ITS | Continuity of Care Document ---
Author Name Unknown Organization [facility] lt Address [address] [place] [address]- Care Team Providers Care Rougher Helper Name Role Phone Brandon Freeman MD Primary Care Physician [facility]): 03[facility]17[facility]22 - 03/24/22 [facility] Adult [address] [place] [address]- Encounter Diagnosis Hypertension(Discharge Diagnosis) - 03/17/22 Attending Physician: Brandon Freeman MD Allergies, Adverse [...] vaccine, inactivated 12/29/18 Recorded zoster vaccine, inactivated 12/1/18 Recorded pneumococcal 23-valent vaccine 06/28/18 Given pneumococcal [...] GIVEN 5Admin Note: [facility]U CLINIC 6Admin Note: [employer] [facility] VIS [phone] given 7Admin Note: given in clinic 8Result Comment: Pt. already received on 08/07/2015 Medications bacitracin zinc 500 units/g topical ointment See Instructions, APPLY SMALL AMOUNT TOPICALLY TO SUPERFICIAL WOUNDS 4 TIMES A DAY NEEDED AN ANTIBACTERIAL / CALL MD IF USING FOR MORE THAN 7 DAYS, # 1 Gm, 11 Refills, Acute, [facility], 7, APPLY SMALL AMOUNT TOPICALLY TO [...] FOR CONSTIPATION, # 7 supp, 11 Refills, [facility], 175.2, cm, 07/20/21 10:29:00 EDT, Height [...] INTESTINAL HEALTH., # 30 capsule, 11 Refills, [facility], 30, TAKE 1 CAPSULE BY MOUTH [...] 19 GM, # 133 mL, 11 Refills, [facility], 5, ONE ENEMA PERRECTUM DAY 5 WITHOUT BOWEL MOVEMENT / IF NO RESULTS... Start Date: 03/16/22 Status: Ordered Ditropan XL 10 mg oral tablet, extended release 10, mg, 1, tablet, By Mouth, Daily, 0, 01/03/07 9:24:09, Print ANNE-MARIE Number, [id number], Constant Indicator Start Date: 01/03/07 Status: Ordered DOK 100 mg oral tablet See Instructions, TAKE 1 TABLET BY MOUTH TWICE DAILY (STOOL SOFTENER EQUIVALENT), # 60 tablet, 5 Refills, [facility], 175.2, cm, 07/20/21 10:29:00 EDT, Height [...] Instructions Replace Required Details, Route toPharmacy Electronically, [facility], 175.2, cm... Start Date: 04/09/20 Status: Ordered fit to pt fit to pt, See Instructions, # 1 units, Refills 0, Tot. Refills 0, Maintenance, rigid cervical collar. Fit to pt., 06/21/18 15:59:47 EDT, Compound Start Date: 06/21/18 Status: Ordered Flomax 0.4 mg oral capsule 0.4, mg, 1, capsule, By Mouth, Daily, 0, 0, 01/03/07 9:24:42, Print ANNE-MARIE Number, [id number], Constant Indicator Start Date: 01/03/07 Status: Ordered [...] 12/25/18 11:23:03 EST, Route to Pharmacy Electronically, [id number], [facility] Start Date: 12/25/18 Status: Ordered lactulose 10 gm/15 ml oral syrup = 20 Gm, By Mouth, Daily at bedtime, GIVE WITH., # 946 mL, 11 Refills, [facility], 31, TWO TABLESPOONFULS BY MOUTH DAILY [...] FOR ALLERGIC RHINITIS, Route to Pharmacy Electronically, [facility], 175.2, cm, 07/20/21 10:29:00 EDT, Height Start Date: 11/10/21 Status: Ordered Milk of Magnesia 8% oral suspension 30 mL, By Mouth, Daily at bedtime, FOR CONSTIPATION EWQL=0247 MG., # 900 mL, 5 Refills, [facility], 175.2, cm, 07/20/21 10:29:00 EDT, Height Start Date: 11/24/21 Status: Ordered omeprazole 40 mg oral enteric coated capsule See Instructions, TAKE 1 CAPSULE BY MOUTH DAILY FOR GERD IN AM, # 30 capsule, 2 Refills, [facility], 175.2, cm, 07/20/21 10:29:00 EDT, Height Start Date: 01/27/22 Status: Ordered polyethylene glycol 3350 oral powder for reconstitution See Instructions, MIX 17GM WITH 8 OUNCES OF WATER OR JUICE DAILY AT 5PM FOR CONSTIPATION (POLYETHYLENE GLYCOL), # 510 Gm, 11 Refills, [facility], 30, MIX 17GM WITH 8 OUNCES OF WATER OR JUICE DAILY AT 5PM FOR CONSTIPATION (POLYETHYLENE GLYCOL), 17... Start Date: 09/22/21 Status: Ordered pravastatin 40 mg oral tablet See Instructions, TAKE 1 TABLET BY MOUTH DAILY IN THE PM FOR HYPERLIPIDEMIA, # 30 tablet, 5 Refills, [facility], 175.2, cm, 07/20/21 10:29:00 EDT, Height Start Date: 11/09/21 Status: Ordered Robafen 100 mg/5 ml oral liquid 10 mL, By Mouth, 4 times a day, PRN NEEDED FOR COUGH/NOTIFY MD IF NO RELIEF AFTER 48 HRS / DOSE =, GUAIFENESIN (TUSSIN MUCUS-CONGEST 100MG/5ML., # 240 mL, 4 Refills, Acute 11/25/22 12:02:00 EST, 11/25/21 12:02:00 EST, [facility], 175.2, cm, 09... Start Date: 11/25/21 [...] VITAMIN SUPPLEMENT, # 30 tablet, 5 Refills, [facility], 30, TAKE 1 TABLET BY MOUTH [...] Raynaud's phenomenon(Confirmed) Active UI (urinary incontinence)(Confirmed) Active 14327; repeat 202015; repeat 2017 3egd 2011 barretts, repeat 2014 4egd 2009 positive barretts repeat 2011 5C2 6colonoscopy 2006 nl repeat 2016 7repeat 2024 [id number] Diagnosis Diagnosis Type Effective Dates Health Status Cl inical Service Informant Hypertension Discharge Diagnosis 03/17/22 Vital Signs Most recent to oldest [Reference Range]: 1 Height 175.2 cm (03/17/22 1:28 PM) Pulse Rate [55-90 bpm] 101 bpm *H* (03/17/22 1:28 PM) Blood Pressure [90-138/55-84 mm Hg] 126/ 77mm Hg (03/17/22 1:28 PM) Mode of Delivery (Oxygen) Room air (03/17/22 1:28 PM) Blood pressure sites Arm, left (03/17/22 1:28 PM) Social History Social History Type Response Smoking Status Never smoker entered on: 06/25/16 Sex
--- OUTSIDE RECORDS SUMMARY | 2023-06-15 11:54 | XMS_ITS | Continuity of Care Document ---
Author Name Unknown Organization [facility] Address [address] [place] [address]- Care Team Providers Care Scoop Filler Name Role Phone Brandon Freeman MD Primary Care Physician [phone] [facility] 12[facility]21 - 01/07/22 [facility] Adult [address] [place] [address]- Allergies, Adverse Reactions, Alerts Substance Reaction Severity [...] GIVEN 5Admin Note: FLU CLINIC 6Admin Note: [facility] [facility] VIS [phone] given 7Admin Note: given in clinic 8Result [...] FOR CONSTIPATION, # 7 supp, 11 Refills, [facility], 175.2, cm, 07/20/21 10:29:00 EDT, Height [...] INTESTINAL HEALTH., # 30 capsule, 11 Refills, [facility], 30, TAKE 1 CAPSULE BY MOUTH DAILY FOR INTESTINAL HEALTH, 175.2, cm, 07/20/21 10:29:00 EDT, Height Start Date: 07/23/21 Status: Ordered diazepam 10 mg oral tablet See Instructions, PRN, 1 tablet By Mouth 2 hour prior to medical appointments, # 1 tablet, Refills 5, Tot. Refills 5, Maintenance, for anxiety, 07/20/21 10:26:00 EDT, Instructions Replace Required Details, Route to Pharmacy Electronically, [facility] Start Date: 07/20/21 Status: Ordered Disposable Enema 7 g-19 g rectal enema See Instructions, ONE ENEMA PER RECTUM DAY 5 WITHOUT BOWEL MOVEMENT / IF NO RESULTS NOTIFY MD / FORCONSTIPATION / IC FLEET ENEMA 7 GM - 19 GM, # 133 mL, 11 Refills, Soft Stop, [facility], 5, ONE ENEMA PER RECTUM DAY 5 WITHOUT BOWEL MOVEMENT / IF... Start Date: 03/11/21 Status: Ordered Ditropan XL 10 mg oral tablet, extended release 10, mg, 1, tablet, By Mouth, Daily, 0, 01/03/07 9:24:09, Print ANNE-MARIE Number, [id number], Constant Indicator Start Date: 01/03/07 Status: Ordered DOK 100 mg oral tablet See Instructions, TAKE 1 TABLET BY MOUTH TWICE DAILY (STOOL SOFTENER EQUIVALENT), # 60 tablet, 5 Refills, [facility], 175.2, cm, 07/20/21 10:29:00 EDT, Height [...] Instructions Replace Required Details, Route toPharmacy Electronically, [facility], 175.2, cm... Start Date: 04/09/20 Status: Ordered fit to pt fit to pt, See Instructions, # 1 units, Refills 0, Tot. Refills 0, Maintenance, rigid cervical collar. Fit to pt., 06/21/18 15:59:47 EDT, Compound Start Date: 06/21/18 Status: Ordered Flomax 0.4 mg oral capsule 0.4, mg, 1, capsule, By Mouth, Daily, 0, 0, 01/03/07 9:24:42, Print ANNE-MARIE Number, [id number], Constant Indicator Start Date: 01/03/07 Status: Ordered [...] Gm, 11 Refills, Maintenance, 12/11/19 11:11:00 EST, [facility], APPLY TO EXTERNAL HEMMORRHOIDS TWICE DAILY PRN PER DR FREEMAN, 175.2, cm, 10/12/19 8:18:00 EST, Height,... Start Date: 12/11/19 Status: Ordered ibuprofen 400 mg oral tablet 400 mg, 1, tablet, By Mouth, 3 times a day, PRN, # 30 tablet, Refills 1, Tot. Refills 1, Maintenance, as needed for pain, 12/25/18 11:23:03 EST, Route to Pharmacy Electronically, [id number], [facility] Start Date: 12/25/18 Status: Ordered lactulose 10 gm/15 ml oral syrup = 20 Gm, By Mouth, Daily at bedtime, GIVE WITH., # 946 mL, 11 Refills, [facility], 31, TWO TABLESPOONFULS BY MOUTH DAILY [...] Replace Required Details, Route to Pharmacy Electronically, [facility], 175.2, cm, 07/20/21... Start Date: 08/04/21 Status: Ordered loratadine 10 mg oral tablet 1, tablet, By Mouth, Daily, PRN, # 30 tablet, Refills 11, NEEDED FOR ALLERGY SYMPTOMS WATERY, ITCHY RED EYES, SNEEZING FOR ALLERGIC RHINITIS, Route to Pharmacy Electronically, [facility], 175.2, cm, 07/20/21 10:29:00 EDT, Height Start Date: 11/10/21 Status: Ordered Milk of Magnesia 8% oral suspension 30 mL, By Mouth, Daily at bedtime, FOR CONSTIPATION DJGI=5367 MG., # 900 mL, 5 Refills, [facility], 175.2, cm, 07/20/21 10:29:00 EDT, Height Start Date: 11/24/21 Status: Ordered omeprazole 40 mg oral enteric coated capsule See Instructions, TAKE 1 CAPSULE BY MOUTH DAILY FOR GERD, # 30 capsule, 2 Refills, [facility],175.2, cm, 07/20/21 10:29:00 EDT, Height Start Date: 10/28/21 Status: Ordered polyethylene glycol 3350 oral powder for reconstitution See Instructions, MIX 17GM WITH 8 OUNCES OF WATER OR JUICE DAILY AT 5PM FOR CONSTIPATION (POLYETHYLENE GLYCOL), # 510 Gm, 11 Refills, [facility], 30, MIX 17GM WITH 8 OUNCES OF WATER OR JUICE DAILY AT 5PM FOR CONSTIPATION (POLYETHYLENE GLYCOL), 17... Start Date: 09/22/21 Status: Ordered pravastatin 40 mg oral tablet See Instructions, TAKE 1 TABLET BY MOUTH DAILY IN THE PM FOR HYPERLIPIDEMIA, # 30 tablet, 5 Refills, [facility], 175.2, cm, 07/20/21 10:29:00 EDT, Height Start Date: 11/09/21 Status: Ordered Robafen 100 mg/5 ml oral liquid 10 mL, By Mouth, 4 times a day, PRN NEEDED FOR COUGH/NOTIFY MD IF NO RELIEF AFTER 48 HRS / DOSE =, GUAIFENESIN (TUSSIN MUCUS-CONGEST 100MG/5ML., # 240 mL, 4 Refills, Acute 11/25/22 12:02:00 EST, 11/25/21 12:02:00 EST, [facility], 175.2, cm, 09... Start Date: 11/25/21 [...] VITAMIN SUPPLEMENT, # 30 tablet, 5 Refills, [facility], 30, TAKE 1 TABLET BY MOUTH [...] Raynaud's phenomenon(Confirmed) Active UI (urinary incontinence)(Confirmed) Active 23317; repeat 2020; repeat 2018 3egd 2012 barretts, repeat 2014 4egd 2010 positive barretts repeat 2011 5C2 6colonoscopy 2006 repeat 2016 7repeat 2024 [id number] Social History Social History Type Response Smoking Status Never smoker entered on: 06/25/16 Sex
--- OUTSIDE RECORDS SUMMARY | 2023-06-15 11:54 | XMS_ITS | Continuity of Care Document ---
Author Name Unknown Organization [facility]ace lt Address [address] [place] [address]- Care Team Providers Care International Representative Name Role Phone Brandon Freeman MD Primary Care Physician [phone] [facility] 11[facility]20 - 12/05/20 [facility] Adult [address] [place] [address]- Attending Physician: Paula Diego NP Allergies, Adverse Reactions, Alerts Substance Reaction Severity [...] GIVEN 5Admin Note: FLU CLINIC 6Admin Note: [employer] [facility] VIS [phone] given 7Admin Note: given in clinic 8Result [...] CONSTIPATION, # 7 supp, 11 Refills, Acute, [facility], 175.2, cm, 10/12/19 8:18:00 EST, Height [...] Acute 07/27/21 9:44:00 EDT, 08/01/20 9:44:00 EDT, [facility], 1 capsule By Mouth Daily,x90 days,Instr:FOR [...] Replace Required Details, Route to Pharmacy Electronically, [facility] Start Date: 11/05/19 Status: Ordered Ditropan XL 10 mg oral tablet, extended release 10, mg, 1, tablet, By Mouth, Daily, 0, 01/03/07 9:24:09, Print ANNE-MARIE Number, [id number], Constant Indicator Start Date: 01/03/07 Status: Ordered DOK 100 mg oral tablet See Instructions, TAKE 1 TABLET BY MOUTH TWICE DAILY (STOOL SOFTENER EQUIVALENT), # 60 tablet, 5 Refills, Soft Stop, 11/06/20 9:22:00 EST, [facility], 175.2, cm, 07/09/20 10:27:00 EDT, Height [...] Instructions Replace Required Details, Route toPharmacy Electronically, [facility], 175.2, cm... Start Date: 04/09/20 Status: [...] without bowel movement, if no results notify M.DRichard, # 135 mL, 11 Refills, Soft Stop, 04/06/19 12:32:30 EDT, Enema, 1 each Rectally Once,PRN:for constipation,Instr:1 per rectum on day 5... Start Date: 04/06/19 Status: Ordered Flomax 0.4 mg oral capsule 0.4, mg, 1, capsule, By Mouth, Daily, 0, 0, 01/03/07 9:24:42, Print ANNE-MARIE Number, [id number], Constant Indicator Start Date: 01/03/07 Status: Ordered [...] 12/25/18 11:23:03 EST, Route to Pharmacy Electronically, [id number], [facility] Start Date: 12/25/18 Status: Ordered lactulose 10 gm/15 ml oral syrup See Instructions, TWO TABLESPOONFULS BY MOUTH DAILY AT BEDTIME FOR CONSTIPATION / GIVE WITH LIQUIDSJUICE/WATER / 2 TBSP = 30 ML DOSE = 20 GRAMS, # 946 mL, 11 Refills, Soft Stop, 08/15/20 7:20:00 EDT, [facility], TWO TABLESPOONFULS BY MOUTH DAILY... Start Date: 08/15/20 Status: Ordered loratadine 10 mg oral tablet 10 mg, 1, tablet, By Mouth, Daily, PER DR FREEMAN, # 30 tablet, Refills 11, Tot. Refills 11, 02/19/20 9:46:00 EDT, Route to Pharmacy Electronically, [facility], 175.2, cm, 10/12/19 8:18:00 EST, Height, 73.2, kg, 03/05/18 17:34:00 EDT, Dry Weight Start Date: 02/19/20 Status: Ordered Milk of Magnesia 8% oral suspension 30 mL = 2.4 Gm, By Mouth, Daily at bedtime, # 900 mL, 5 Refills, Maintenance, 09/02/20 12:20:00 EST, [facility], 175.2, cm, 07/09/20 10:27:00 EDT, Height, Dry Weight Start Date: 09/02/20 Stop Date: 03/01/21 Status: Ordered omeprazole 40 mg oral enteric coated capsule 1 capsule = 40 mg, By Mouth, Daily, # 30 capsule, 5 Refills, Maintenance, 12/04/20 6:53:00 EST, EC Capsule, [facility], Partial fill upon patient request if the prescription is for a schedule IIopioid drug., 175.2, cm, 11/28/20 7:21:00 EST, Height Start Date: 12/04/20 Status: Ordered polyethylene glycol 3350 oral powder for reconstitution = 17 Gm, By Mouth, Daily, dissolve in water or juice, # 527 Gm, 11 Refills, Maintenance, 08/26/20 9:54:00 EDT, [facility], 17 Gm By Mouth Daily,Instr:dissolve in water or juice, 175.2, cm, 07/09/20 10:27:00 EDT, Height Start Date: 08/26/20 Status: Ordered pravastatin 40 mg oral tablet 1 tablet = 40 mg, By Mouth, Daily, Pt needs labs, # 30 tablet, 2 Refills, Soft Stop, 11/17/20 12:45:00 EST, [facility], 175.2, cm, 07/09/20 10:27:00 EDT, Height Start Date: 11/17/20 Status: Ordered Robafen 100 mg/5 ml oral liquid 10 mL, By Mouth, 4 times a day, PRN NEEDED FOR COUGH/NOTIFY MD IF NO RELIEF AFTER 48 HRS / DOSE =, GUAIFENESIN (TUSSIN MUCUS-CONGEST 100MG/5ML., # 240 mL, 4 Refills, Acute, 10/28/20 6:38:00 EST, [facility], 175.2, cm, 07/09/20 10:27:00 EDT, He... [...] 08/07/20 12:37:00 EDT, Route to Pharmacy Electronically, [facility], 175.2, cm, 07/09/20 10:27:00 EDT, Height, [...] Raynaud's phenomenon(Confirmed) Active UI (urinary incontinence)(Confirmed) Active 99197; repeat 202015; repeat 2018 3egd 2012 barretts, repeat 2014 4egd 2010 positive barretts repeat 2011 5C2 6colonoscopy 2006 nl repeat 2016 7repeat 2024 [id number] Vital Signs Most recent to oldest [Reference Range]: 1 Height 175.2 cm (11/28/20 7:21 AM) Weight 85 kg (11/28/20 7:21 AM) Body Mass Index [18.5-24.99] 27.69 *H* (11/28/20 7:21 AM) Blood Pressure [90-138/55-84 mm Hg] 128/ 72mm Hg (11/28/20 7:21 AM) Social History Social History Type Response Smoking Status Never smoker entered on: 06/25/16 Sex
--- OUTSIDE RECORDS SUMMARY | 2023-06-15 11:54 | XMS_ITS | Continuity of Care Document ---
Author Name Unknown Organization [facility] Chace lt Address [address] [place] [address]- Care Team Providers Care Guest Services Representative Name Role Phone Brandon Freeman MD Primary Care Physician [phone] Encounter [facility] [place] Date(s): 07/20/21 - 07/27/21 [facility] Adult [address] [place] [address]- Encounter Diagnosis BPH (benign prostatic hyperplasia)(Discharge Diagnosis) - 07/20/21 Bustamante's Esophagus(Discharge Diagnosis) - 07/20/21 Gastroesophageal reflux disease with hiatal hernia(Discharge Diagnosis) - 07/20/21 Hypercholesterolemia(Discharge Diagnosis) - 07/20/21 Hypertension(Discharge Diagnosis) - 07/20/21 Attending Physician: Brandon Freeman MD Allergies, Adverse [...] Or Guardian Refuses 1Admin Note: given by ilsy doc by tyler 2Admin Note: given in clinic 3Admin Note: FLU CLINIC 4Admin Note: VIS GIVEN 5Admin Note: FLU CLINIC 6Admin Note: [facility] VIS [id number] given 7Admin Note: given in clinic 8Result Comment: Pt. already received on 08/07/2015 Medications bacitracin zinc 500 units/g topical ointment See Instructions, APPLY SMALL AMOUNT TOPICALLY TO SUPERFICIAL WOUNDS 4 TIMES A DAY NEEDED AN ANTIBACTERIAL / CALL MD IF USING FOR MORE THAN 7 DAYS, # 1 Gm, 11 Refills, Acute, [facility], 7, APPLY SMALL AMOUNT TOPICALLY TO [...] CONSTIPATION, # 7 supp, 11 Refills, Acute, [facility], 175.2, cm, 10/12/19 8:18:00 EST, Height [...] INTESTINAL HEALTH., # 30 capsule, 11 Refills, [facility], 30, TAKE 1 CAPSULE BY MOUTH DAILY FOR INTESTINAL HEALTH, 175.2, cm, 07/20/21 10:29:00 EDT, Height Start Date: 07/23/21 Status: Ordered diazepam 10 mg oral tablet See Instructions, PRN, 1 tablet By Mouth 2 hour prior to medical appointments, # 1 tablet, Refills 5, Tot. Refills 5, Maintenance, for anxiety, 07/20/21 10:26:00 EDT, Instructions Replace Required Details, Route to Pharmacy Electronically, [facility] Start Date: 07/20/21 Status: Ordered Disposable Enema 7 g-19 g rectal enema See Instructions, ONE ENEMA PER RECTUM DAY 5 WITHOUT BOWEL MOVEMENT / IF NO RESULTS NOTIFY MD / FORCONSTIPATION / IC FLEET ENEMA 7 GM - 19 GM, # 133 mL, 11 Refills, Soft Stop, [facility], 5, ONE ENEMA PER RECTUM DAY 5 WITHOUT BOWEL MOVEMENT / IF... Start Date: 03/11/21 Status: Ordered Ditropan XL 10 mg oral tablet, extended release 10, mg, 1, tablet, By Mouth, Daily, 0, 01/03/07 9:24:09, Print ANNE-MARIE Number, [id number], Constant Indicator Start Date: 01/03/07 Status: Ordered DOK 100 mg oral tablet See Instructions, TAKE 1 TABLET BY MOUTH TWICE DAILY (STOOL SOFTENER EQUIVALENT), # 60 tablet, 5 Refills, Maintenance, [facility], 175.2, [...] Instructions Replace Required Details, Route toPharmacy Electronically, [facility], 175.2, cm... Start Date: 04/09/20 Status: Ordered fit to pt fit to pt, See Instructions, # 1 units, Refills 0, Tot. Refills 0, Maintenance, rigid cervical collar. Fit to pt., 06/21/18 15:59:47 EDT, Compound Start Date: 06/21/18 Status: Ordered Flomax 0.4 mg oral capsule 0.4, mg, 1, capsule, By Mouth, Daily, 0, 0, 01/03/07 9:24:42, Print ANNE-MARIE Number, [id number], Constant Indicator Start Date: 01/03/07 Status: Ordered [...] Gm, 11 Refills, Maintenance, 12/11/19 11:11:00 EST, [facility], APPLY TO EXTERNAL HEMMORRHOIDS TWICE DAILY PRN PER DR FREEMAN, 175.2, cm, 10/12/19 8:18:00 EST, Height,... Start Date: 12/11/19 Status: Ordered ibuprofen 400 mg oral tablet 400 mg, 1, tablet, By Mouth, 3 times a day, PRN, # 30 tablet, Refills 1, Tot. Refills 1, Maintenance, as needed for pain, 12/25/18 11:23:03 EST, Route to Pharmacy Electronically, [id number], [facility] Start Date: 12/25/18 Status: Ordered lactulose 10 gm/15 ml oral syrup See Instructions, TWO TABLESPOONFULS BY MOUTH DAILY AT BEDTIME FOR CONSTIPATION / GIVE WITH LIQUIDSJUICE/WATER / 2 TBSP = 30 ML DOSE = 20 GRAMS, # 946 mL, 11 Refills, Soft Stop, 08/15/20 7:20:00 EDT, [facility], TWO TABLESPOONFULS BY MOUTH DAILY... Start Date: 08/15/20 Status: Ordered lisinopril 20 mg oral tablet 1, tablet, By Mouth, Daily in AM, FOR HTN / CALL MD IF SBP>160 OR DBP>100 OR SBP<90 OR DBP<50., # 30 tablet, Refills 5, Tot. Refills 0, Maintenance, 02/03/21 12:45:00 EDT, Route to Pharmacy Electronically, [facility], 175.2, cm, 11/28/20 7:21:00... Start Date: 02/03/21 Status: Ordered loratadine 10 mg oral tablet 10 mg, 1, tablet, By Mouth, Daily, PER DR FREEMAN, # 30 tablet, Refills 11, Tot. Refills 11, 02/19/20 9:46:00 EDT, Route to Pharmacy Electronically, [facility], 175.2, cm, 10/12/19 8:18:00 EST, Height, 73.2, kg, 03/05/18 17:34:00 EDT, Dry Weight Start Date: 02/19/20 Status: Ordered Milk of Magnesia 8% oral suspension 30 mL = 2.4 Gm, By Mouth, Daily at bedtime, # 900 mL, 5 Refills, Maintenance, 04/02/21 7:35:00 EDT,[facility], 175.2, cm, 11/28/20 7:21:00 EST, Height Start Date: 04/02/21 Stop Date: 09/29/21 Status: Ordered omeprazole 40 mg oral enteric coated capsule See Instructions, TAKE 1 CAPSULE BY MOUTH DAILY FOR GERD, # 30 capsule, 2 Refills, Maintenance, [facility], 175.2, cm, 11/28/20 7:21:00 EST, Height Start Date: 06/02/21 Status: Ordered polyethylene glycol 3350 oral powder for reconstitution = 17 Gm, By Mouth, Daily, dissolve in water or juice, # 527 Gm, 11 Refills, Maintenance, 08/26/20 9:54:00 EDT, [facility], 17 Gm By Mouth Daily,Instr:dissolve in water or juice, 175.2, cm, 07/09/20 10:27:00 EDT, Height Start Date: 08/26/20 Status: Ordered pravastatin 40 mg oral tablet See Instructions, TAKE 1 TABLET BY MOUTH DAILY IN THE PM FOR HYPERLIPIDEMIA, # 30 tablet, 5 Refills, Maintenance, [facility], 175.2, cm, 11/28/20 7:21:00 EST, Height Start Date: 05/14/21 Status: Ordered Robafen 100 mg/5 ml oral liquid 10 mL, By Mouth, 4 times a day, PRN NEEDED FOR COUGH/NOTIFY MD IF NO RELIEF AFTER 48 HRS / DOSE =, GUAIFENESIN (TUSSIN MUCUS-CONGEST 100MG/5ML., # 240 mL, 4 Refills, Acute, 10/28/20 6:38:00 EST, [facility], 175.2, cm, 07/09/20 10:27:00 EDT, He... [...] Raynaud's phenomenon(Confirmed) Active UI (urinary incontinence)(Confirmed) Active 61696; repeat 202015; repeat 2017 3egd 2011 barretts, repeat 2014 4egd 2009 positive barretts repeat 2011 5C2 6colonoscopy 2006 nl repeat 2016 7repeat 2024 60895 Diagnosis Diagnosis Type Effective Dates Health Status Clinical Service Informant BPH (benign prostatic hyperplasia) Discharge Diagnosis 07/20/21 Bustamante's Esophagus Discharge Diagnosis 07/20/21 Gastroesophageal reflux disease with hiatal hernia Discharge Diagnosis 07/20/21 Hypercholesterolemia Discharge Diagnosis 07/20/21 Hypertension Discharge Diagnosis 07/20/21 Vital Signs Most recent to oldest [Reference Range]: 1 2 Height 175.2 cm (07/20/21 10:29 AM) 175.2 cm (07/20/21 9:41 AM) Blood Pressure [90-138/55-84 mm Hg] 114/ 61mm Hg (07/20/21 10:29 AM) Mode of Delivery (Oxygen) Room air (07/20/21 9:41 AM) Social History Social History Type Response Smoking Status Never smoker entered on: 06/25/16 Sex
--- OUTSIDE RECORDS SUMMARY | 2023-06-15 11:54 | XMS_ITS | Continuity of Care Document ---
Author Name Unknown Organization [facility] Chace lt Address [address] [place] [address]- Care Team Providers Care Sales Trainee Name Role Phone Brandon Freeman MD Primary Care Physician [phone] Encounter [facility] Date(s): 08/02/22 - 09/01/22 [facility] Adult [address] [place] [address]- Allergies, Adverse Reactions, Alerts Substance Reaction Severity Status azithromycin Active macrolide antibiotics Active Dust Active ketolides Active Immunizations Given and Recorded Vaccine Date Status Refusal Reason [id number] 12y+ bivalent booster vax 07/22/22 Recorded tetanus-diphtheria [...] clinic 5Admin Note: FLU CLINIC 6Admin Note: [employer] VIS [id number] given 7Admin Note: given in clinic 8Result Comment: Pt. already received on 08/07/2015 Medications bacitracin zinc 500 units/g topical ointment See Instructions, APPLY SMALL AMOUNT TOPICALLY TO SUPERFICIAL WOUNDS 4 TIMES A DAY NEEDED AN ANTIBACTERIAL / CALL MD IF USING FOR MORE THAN 7 DAYS, # 1 Gm, 11 Refills, Acute, [facility], 7, APPLY SMALL AMOUNT TOPICALLY TO [...] CONSTIPATION, # 7 supp, 11 Refills, [facility], 175.2, cm, 07/20/21 10:29:00 EDT, Height [...] 30 capsule, 11 Refills, Maintenance, 07/29/2211:36:00 EDT, [facility], 30, 1 capsule By Mouth Daily,Instr:FOR [...] GM, # 133 mL, 11 Refills, [facility], 5, ONE ENEMA PERRECTUM DAY 5 WITHOUT BOWEL MOVEMENT / IF NO RESULTS... Start Date: 03/16/22 Status: Ordered Ditropan XL 10 mg oral tablet, extended release 10, mg, 1, tablet, By Mouth, Daily, 0, 01/03/07 9:24:09, Print ANNE-MARIE Number, [id number], Constant Indicator Start Date: 01/03/07 Status: Ordered DOK 100 mg oral tablet See Instructions, TAKE 1 TABLET BY MOUTH TWICE DAILY (STOOL SOFTENER EQUIVALENT), # 60 tablet, 5 Refills, Maintenance, 08/12/22 9:24:00 EDT, [facility], 175.2, cm, 07/27/22 11:37:00 EDT, Height [...] Instructions Replace Required Details, Route toPharmacy Electronically, [facility], 175.2, cm... Start Date: 04/09/20 Status: Ordered fit to pt fit to pt, See Instructions, # 1 units, Refills 0, Tot. Refills 0, Maintenance, rigid cervical collar. Fit to pt., 06/21/18 15:59:47 EDT, Compound Start Date: 06/21/18 Status: Ordered Flomax 0.4 mg oral capsule 0.4, mg, 1, capsule, By Mouth, Daily, 0, 0, 01/03/07 9:24:42, Print ANNE-MARIE Number, [id number], Constant Indicator Start Date: 01/03/07 Status: Ordered hydrochlorothiazide 25 mg oral tablet See Instructions, TAKE 1 TAB BY MOUTH DAILY IN AM FOR HTN/MONITOR BP/IF SYSTOLIC MORE THAN 160, DIASTOLIC MORE THAN 100, SYSTOLIC LESS THAN 90, OR DIASTOLIC LESS THAN 50 CALLNC, # 30 tablet, Refills 2, Instructions Replace Required Details, Route to P... Start Date: 06/15/22 Status: Ordered HYDROCORTISONE 1% CREAM 1 Cream [...] Gm, 11 Refills, Maintenance, 12/11/19 11:11:00 EST, [facility], APPLY TO EXTERNAL HEMMORRHOIDS TWICE DAILY PRN PER DR FREEMAN, 175.2, cm, 10/12/19 8:18:00 EST, Height,... Start Date: 12/11/19 Status: Ordered ibuprofen 400 mg oral tablet 400 mg, 1, tablet, By Mouth, 3 times a day, PRN, # 30 tablet, Refills 1, Tot. Refills 1, Maintenance, as needed for pain, 12/25/18 11:23:03 EST, Route to Pharmacy Electronically, [id number], [facility] Start Date: 12/25/18 Status: Ordered lactulose 10 gm/15 ml oral syrup = 20 Gm, By Mouth, Daily at bedtime, # 946 mL, 11 Refills, Maintenance, 09/01/22 7:18:00 EDT, [facility], 31, 20 Gm By Mouth Daily [...] ALLERGIC RHINITIS, Route to Pharmacy Electronically, [facility], 175.2, cm, 07/20/21 10:29:00 EDT, Height Start Date: 11/10/21 Status: Ordered Milk of Magnesia 8% oral suspension 30 mL, By Mouth, Daily at bedtime, FOR CONSTIPATION DNAX=9616 MG., # 900 mL, 5 Refills, Maintenance, 07/01/22 13:24:00 EDT, [facility], 175.2, cm, 04/15/22 9:44:00 EDT, Height Start Date: 07/01/22 Status: Ordered omeprazole 40 mg oral enteric coated capsule See Instructions, TAKE 1 CAPSULE BY MOUTH DAILY FOR GERD IN AM, # 30 capsule, 2 Refills, Maintenance, 08/05/22 12:48:00 EDT, [facility], 175.2, cm, 07/27/22 11:37:00 EDT, Height Start Date: 08/05/22 Status: Ordered polyethylene glycol 3350 oral powder for reconstitution See Instructions, MIX 17GM WITH 8 OUNCES OF WATER OR JUICE DAILY AT 5PM FOR CONSTIPATION (POLYETHYLENE GLYCOL), # 510 Gm, 11 Refills, [facility], 30, MIX 17GM WITH 8 OUNCES OF WATER OR JUICE DAILY AT 5PM FOR CONSTIPATION (POLYETHYLENE GLYCOL), 17... Start Date: 09/22/21 Status: Ordered pravastatin 40 mg oral tablet See Instructions, TAKE 1 TABLET BY MOUTH DAILY IN THE PM FOR HYPERLIPIDEMIA, # 30 tablet, 5 Refills, [facility], 175.2, cm, 04/15/22 9:44:00 EDT, Height Start Date: 05/25/22 Status: Ordered Robafen 100 mg/5 ml oral liquid 10 mL, By Mouth, 4 times a day, PRN NEEDED FOR COUGH/NOTIFY MD IF NO RELIEF AFTER 48 HRS / DOSE =, GUAIFENESIN (TUSSIN MUCUS-CONGEST 100MG/5ML., # 240 mL, 4 Refills, Acute 11/25/22 12:02:00 EST, 11/25/21 12:02:00 EST, [facility], 175.2, cm, 09... Start Date: 11/25/21 Stop Date: 11/25/22 Status: Ordered Shingrix intramuscular injection 0.5 mL, Intramuscular, Once, # 0.5 mL, 1 Refills, Soft Stop, 06/28/18 10:24:17 EDT Start Date: 06/28/18 Status: Ordered terbinafine 1% topical cream 1 application, Topically, 2 times a day, # 30 Gm, 1 Refills, Maintenance, 05/11/22 14:45:00 EDT, Cream, [facility], Partial fill upon patient request if [...] VITAMIN SUPPLEMENT, # 30 tablet, 5 Refills, [facility], 30, TAKE 1 TABLET BY MOUTH DAILY @ 9PM, VITAMIN SUPPLEMENT, 175.2, cm, 04/15/22 9:44:00 EDT, Height Start Date: 05/06/22 Status: Ordered Problem List Condition Confirmation Course [...] Confirmed Active UI (urinary incontinence) Confirmed Active 28554; repeat 2020 25535; repeat 2017 3egd 2011 barretts, repeat 2014 4egd 2009 positive barretts repeat 2011 5C2 6colonoscopy 2006 nl repeat 2016 7repeat 2024 72767 Social History Social History Type Response Smoking Status Never smoker entered on: 06/25/16 Sex Patient Care team information Personnel Name: Brandon Freeman MD Address: Address: [address] [place] [id number]
--- OUTSIDE RECORDS SUMMARY | 2023-06-15 11:54 | XMS_ITS | Continuity of Care Document ---
Author Name Unknown Organization [facility]ace lt Address [address] [place] [address]- Care Team Providers Care Supervisor Pile Driving Name Role Phone Brandon Freeman MD Primary Care Physician Encounter [facility] Date(s): 03/22/23 - 04/21/23 [facility] Adult [address] [place] [address]- Allergies, Adverse Reactions, Alerts Substance Reaction Severity Status azithromycin Active macrolide antibiotics Active ketolides Active Dust Active Immunizations Given and Recorded Vaccine Date Status Refusal Reason [id number] 12y+ bivalent booster vax 07/22/22 Recorded tetanus-diphtheria [...] clinic 5Admin Note: FLU CLINIC 6Admin Note: [facility] VIS [id number] given 7Admin Note: given in clinic 8Result Comment: Pt. already received on 08/07/2015 Medications acetaminophen 325 mg oral tablet 2, tablet, By Mouth, Every 6 hours, PRN, BCKQ=[id number]., # 60 tablet, Refills 0, Maintenance, NEEDED FOR FEVER>100.5 OR PAIN SHOWN BY FACIAL GRIMACE NOTIFY MD IF USED >, 11/12/22 9:30:00 EST, Route to Pharmacy Electronically, [facility], 175.2, c... Start Date: 11/12/22 Stop Date: 11/15/22 Status: Ordered bacitracin zinc 500 units/g topical ointment See Instructions, APPLY SMALL AMOUNT TOPICALLY TO SUPERFICIAL WOUNDS 4 TIMES A DAY NEEDED AN ANTIBACTERIAL / CALL MD IF USING FOR MORE THAN 7 DAYS, # 28 Gm, 11 Refills, Maintenance, 11/09/22 15:57:00 EST, [facility], 7, APPLY SMALL AMOUNT T... Start [...] supp, 11 Refills, Maintenance, 12/16/22 13:35:00 EST, [facility], 175.2, cm, 07/27/22 11:37:00 EDT, Height [...] 30 SEC... Start Date: 10/26/18 Status: Ordered [facility] oral capsule 1 capsule, By Mouth, Daily, FOR INTESTINAL HEALTH., # 30 capsule, 11 Refills, Maintenance, 07/29/2211:36:00 EDT, [facility], 30, 1 capsule By Mouth Daily,Instr:FOR [...] Stop 04/06/24 13:54:00 EDT, 04/05/23 13:54:00 EDT, [facility], 5, ONE... Start Date: 04/05/23 Stop Date: 04/06/24 Status: Ordered Ditropan XL 10 mg oral tablet, extended release 10, mg, 1, tablet, By Mouth, Daily, 0, 01/03/07 9:24:09, Print ANNE-MARIE Number, [id number], Constant Indicator Start Date: 01/03/07 Status: Ordered DOK 100 mg oral tablet See Instructions, TAKE 1 TABLET BY MOUTH TWICE DAILY (AM AND PM) (STOOL SOFTENER EQUIVALENT), # 60 tablet, 5 Refills, Maintenance, 02/02/23 15:38:00 EDT, [facility], 175.2, cm, 02/01/23 15:11:00EDT, Height Start [...] Instructions Replace Required Details, Route toPharmacy Electronically, [facility], 175.2, cm... Start Date: 04/09/20 Status: Ordered fit to pt fit to pt, See Instructions, # 1 units, Refills 0, Tot. Refills 0, Maintenance, rigid cervical collar. Fit to pt., 06/21/18 15:59:47 EDT, Compound Start Date: 06/21/18 Status: Ordered Flomax 0.4 mg oral capsule 0.4, mg, 1, capsule, By Mouth, Daily, 0, 0, 01/03/07 9:24:42, Print ANNE-MARIE Number, [id number], Constant Indicator Start Date: 01/03/07 Status: Ordered hydrochlorothiazide 25 mg oral tablet 1, tablet, By Mouth, Daily in AM, FOR HTN/MONITOR BP/IF SYSTOLIC MORE THAN 160, DIASTOLIC MORE [id number], SYSTOLIC LESS THAN 90, OR DIASTOLIC LESS THAN 50 CALLMD., # 90 tablet, Refills 1, Tot. Refills1, Maintenance, 03/15/23 14:21:00 EDT, [facility]... Start Date: 03/15/23 Status: Ordered HYDROCORTISONE [...] Gm, 11 Refills, Maintenance, 12/11/19 11:11:00 EST, [facility], APPLY TO EXTERNAL HEMMORRHOIDS TWICE DAILY PRN PER DR FREEMAN, 175.2, cm, 10/12/19 8:18:00 EST, Height,... Start Date: 12/11/19 Status: Ordered ibuprofen 400 mg oral tablet 400 mg, 1, tablet, By Mouth, 3 times a day, PRN, # 30 tablet, Refills 1, Tot. Refills 1, Maintenance, as needed for pain, 12/25/18 11:23:03 EST, Route to Pharmacy Electronically, [id number], [facility] Start Date: 12/25/18 Status: Ordered lactulose 10 gm/15 ml oral syrup = 20 Gm, By Mouth, Daily at bedtime, # 946 mL, 11 Refills, Maintenance, 09/01/22 7:18:00 EDT, [facility], 31, 20 Gm By Mouth Daily [...] 03/08/23 11:54:00 EDT, Route to Pharmacy Electronically, [facility], Partial fill u... Start Date: 03/08/23 Stop Date: 03/08/24 Status: Ordered loratadine 10 mg oral tablet 1, tablet, By Mouth, Daily, PRN, # 30 tablet, Refills 11, NEEDED FOR ALLERGY SYMPTOMS WATERY, ITCHY RED EYES, SNEEZING FOR ALLERGIC RHINITIS, Route to Pharmacy Electronically, [facility], 175.2, cm, 07/20/21 10:29:00 EDT, Height Start Date: 11/10/21 Status: Ordered Milk of Magnesia 8% oral suspension 30 mL, By Mouth, Daily at bedtime, FOR CONSTIPATION NDKU=3527 MG., # 900 mL, 5 Refills, Maintenance, 04/04/23 21:00:00 EDT, [facility], 175.2, cm, 02/01/23 15:11:00 EDT, Height Start Date: 04/04/23 Status: Ordered omeprazole 40 mg oral enteric coated capsule 1 capsule, By Mouth, Daily in AM, # 30 capsule, 5 Refills, Maintenance, 02/01/23 7:37:00 EDT, [facility], 175.2, cm, 07/27/22 11:37:00 EDT, Height Start Date: 02/01/23 Status: Ordered polyethylene glycol 3350 oral powder for reconstitution See Instructions, MIX 17GM WITH 8 OUNCES OF WATER OR JUICE DAILY AT 5PM FOR CONSTIPATION (POLYETHYLENE GLYCOL), # 510 Gm, 11 Refills, Physician Stop 10/07/23 11:17:00 EST, 10/07/22 11:17:00 EST, [facility], 30, MIX 17GM WITH 8 OUNCES OF WATER OR... Start Date: 10/07/22 Stop Date: 10/07/23 Status: Ordered pravastatin 40 mg oral tablet See Instructions, TAKE 1 TABLET BY MOUTH DAILY IN THE PM FOR HYPERLIPIDEMIA, # 30 tablet, 5 Refills, Maintenance, 11/18/22 15:41:00 EST, [facility], 175.2, cm, 07/27/22 11:37:00 EDT, Height [...] 1 Refills, Maintenance, 05/11/22 14:45:00 EDT, Cream, [facility], Partial fill upon patient request if [...] tablet, 5 Refills, Maintenance, 04/04/23 21:00:00 EDT, [facility], 30, TAKE 1 TABLET BY MOUTH [...] Confirmed Active UI (urinary incontinence) Confirmed Active 29033; repeat 2020 94808; repeat 2017 3egd 2012 barretts, repeat 2014 4egd 2010 positive barretts repeat 2012 5C2 6colonoscopy 2007 nl repeat 2016 7repeat 2024 07370 Social History Social History Type Response Smoking Status Never smoker entered on: 06/25/16 Sex Patient Care team information Care Team Personnel Name: Hannah Roque RN Position: [facility] RN Member Role: Primary Care Nurse Name: Reggie Godinez RN Position: [facility] RN Member Role: Primary Care Nurse Name: Christiane Cedillo RN Position: [facility] RN Member Role: Primary Care Nurse Name: Brandon Freeman MD Position: [facility] Physician - Primary Care Member Role: PCP Address: Address: [address] [place] [address]- Name: Janeen Hoskins RN Position: [facility] RN Member Role: Primary Care Nurse Name: Cydney Mckinney RN Position: [facility] RN Member Role: Primary Care Nurse Name: Frantz Mi III, RN Position: [facility] RN Member Role: Primary Care Nurse Name: Cate Martel NP Position: Reference Physician Member Role: Primary Care Nurse Address: Address: [address] [place] [id number]- Name: Fay Morton RN Position: [facility] RN Member Role: Primary Care Nurse Name: Massiel Lu RN Position: [facility] RN Member Role: Primary Care Nurse Name: Lurdes Mujica RN Position: [facility] RN Member Role: Primary Care Nurse Name: Brandie Horvath RN Position: [facility] Hospital Duty Manager Member Role: Primary Care Nurse Name: Claribel Howe RN Position: [facility] RN Member Role: Primary Care Nurse Care Team Related Persons Name: JOHAN PERKINS Name: DAWOOD DE LOS SANTOS Address: home [address] [place] [id number] Name: JENNIFER JUAREZ Address: [address] [place] [address]
--- OUTSIDE RECORDS SUMMARY | 2023-06-15 11:54 | XMS_ITS | Continuity of Care Document ---
Author Name Unknown [facility] Address [address] [place] [address]- Care Team Providers Care General Production Worker Name Role Phone Brandon Freeman MD Primary Care Physician [facility] Date[facility]): 12/15/22 - 01/14/23 [facility] Adult [address] [place] [address]- Allergies, Adverse Reactions, Alerts Substance Reaction Severity Status azithromycin Active macrolide antibiotics Active ketolides Active Dust Active Immunizations Given and Recorded Vaccine Date Status Refusal Reason [id number] 12y+ bivalent booster vax 07/22/22 Recorded tetanus-diphtheria [...] clinic 5Admin Note: [facility] 6Admin Note: [email or web address] VIS [phone] given 7Admin Note: given in clinic 8Result Comment: Pt. already received on 08/07/2015 Medications acetaminophen 325 mg oral tablet 2, tablet, By Mouth, Every 6 hours, PRN, [id number]., # 60 tablet, Refills 0, Maintenance, NEEDED FOR FEVER>100.5 OR PAIN SHOWN BY FACIAL GRIMACE NOTIFY MD IF USED >, 11/12/22 9:30:00 EST, Route to Pharmacy Electronically, [facility], 175.2, c... Start Date: 11/12/22 Stop Date: 11/15/22 Status: Ordered bacitracin zinc 500 units/g topical ointment See Instructions, APPLY SMALL AMOUNT TOPICALLY TO SUPERFICIAL WOUNDS 4 TIMES A DAY NEEDED AN ANTIBACTERIAL / CALL MD IF USING FOR MORE THAN 7 DAYS, # 28 Gm, 11 Refills, Maintenance, 11/09/22 15:57:00 EST, [facility], 7, APPLY SMALL AMOUNT T... Start [...] supp, 11 Refills, Maintenance, 12/16/22 13:35:00 EST, [facility], 175.2, cm, 07/27/22 11:37:00 EDT, Height [...] 30 SEC... Start Date: 10/26/18 Status: [facility]dered [facility] oral capsule 1 capsule, By Mouth, Daily, FOR INTESTINAL HEALTH., # 30 capsule, 11 Refills, Maintenance, 07/29/2211:36:00 EDT, [facility], 30, 1 capsule By Mouth Daily,Instr:FOR [...] 19 GM, # 133 mL, 11 Refills, [facility], 5, ONE ENEMA PERRECTUM DAY 5 WITHOUT BOWEL MOVEMENT / IF NO RESULTS... Start Date: 03/16/22 Status: Ordered Ditropan XL 10 mg oral tablet, extended release 10, mg, 1, tablet, By Mouth, Daily, 0, 01/03/07 9:24:09, Print ANNE-MARIE Number, [id number], Constant Indicator Start Date: 01/03/07 Status: Ordered DOK 100 mg oral tablet See Instructions, TAKE 1 TABLET BY MOUTH TWICE DAILY (STOOL SOFTENER EQUIVALENT), # 60 tablet, 5 Refills, Maintenance, 08/12/22 9:24:00 EDT, [facility], 175.2, cm, 07/27/22 11:37:00 EDT, Height [...] Instructions Replace Required Details, Route toPharmacy Electronically, [facility], 175.2, cm... Start Date: 04/09/20 Status: Ordered fit to pt fit to pt, See Instructions, # 1 units, Refills 0, Tot. Refills 0, Maintenance, rigid cervical collar. Fit to pt., 06/21/18 15:59:47 EDT, Compound Start Date: 06/21/18 Status: Ordered Flomax 0.4 mg oral capsule 0.4, mg, 1, capsule, By Mouth, Daily, 0, 0, 01/03/07 9:24:42, Print ANNE-MARIE Number, [id number], Constant Indicator Start Date: 01/03/07 Status: Ordered hydrochlorothiazide 25 mg oral tablet See Instructions, TAKE 1 TAB BY MOUTH DAILY IN AM FOR HTN/MONITOR BP/IF SYSTOLIC MORE THAN 160, DIASTOLIC MORE THAN 100, SYSTOLIC LESS THAN 90, OR DIASTOLIC LESS THAN 50 CALLMD, # 30 tablet, Refills 5, Maintenance, 11/17/22 6:55:00 EST, Instructions R... Start Date: 09/16/22 [...] Gm, 11 Refills, Maintenance, 12/11/19 11:11:00 EST, [facility], APPLY TO EXTERNAL HEMMORRHOIDS TWICE DAILY PRN PER DR FREEMAN, 175.2, cm, 10/12/19 8:18:00 EST, Height,... Start Date: 12/11/19 Status: Ordered ibuprofen 400 mg oral tablet 400 mg, 1, tablet, By Mouth, 3 times a day, PRN, # 30 tablet, Refills 1, Tot. Refills 1, Maintenance, as needed for pain, 12/25/18 11:23:03 EST, Route to Pharmacy Electronically, [id number], [facility] Start Date: 12/25/18 Status: Ordered lactulose 10 gm/15 ml oral syrup = 20 Gm, By Mouth, Daily at bedtime, # 946 mL, 11 Refills, Maintenance, 09/01/22 7:18:00 EDT, [facility], 31, 20 Gm By Mouth Daily [...] FOR ALLERGIC RHINITIS, Route to Pharmacy Electronically, [facility], 175.2, cm, 07/20/21 10:29:00 EDT, Height Start Date: 11/10/21 Status: Ordered Milk of Magnesia 8% oral suspension 30 mL, By Mouth, Daily at bedtime, FOR CONSTIPATION ZUQI=8721 MG., # 900 mL, 5 Refills, Maintenance, 07/01/22 13:24:00 EDT, [facility], 175.2, cm, 04/15/22 9:44:00 EDT, Height Start Date: 07/01/22 Status: Ordered omeprazole 40 mg oral enteric coated capsule See Instructions, TAKE 1 CAPSULE BY MOUTH DAILY FOR GERD IN AM, # 30 capsule, 2 Refills, Maintenance, 11/04/22 10:43:00 EST, [facility], 175.2, cm, 07/27/22 11:37:00 EDT, Height Start Date: 11/04/22 Status: Ordered polyethylene glycol 3350 oral powder for reconstitution See Instructions, MIX 17GM WITH 8 OUNCES OF WATER OR JUICE DAILY AT 5PM FOR CONSTIPATION (POLYETHYLENE GLYCOL), # 510 Gm, 11 Refills, Physician Stop 10/07/23 11:17:00 EST, 10/07/22 11:17:00 EST, [facility], 30, MIX 17GM WITH 8 OUNCES OF WATER OR... Start Date: 10/07/22 Stop Date: 10/07/23 Status: Ordered pravastatin 40 mg oral tablet See Instructions, TAKE 1 TABLET BY MOUTH DAILY IN THE PM FOR HYPERLIPIDEMIA, # 30 tablet, 5 Refills, Maintenance, 11/18/22 15:41:00 EST, [facility], 175.2, cm, 07/27/22 11:37:00 EDT, Height [...] 30 tablet, 5 Refills, 10/05/22 11:07:00 EST, [facility], 30, TAKE 1 TABLET BY MOUTH [...] Confirmed Active UI (urinary incontinence) Confirmed Active 14139; repeat 202015; repeat 2018 3egd 2012 barretts, repeat 2014 4egd 2010 positive barretts repeat 2011 5C2 6colonoscopy 2006 nl repeat 2016 7repeat 2024 [id number] Social History Social History Type Response Smoking Status Never smoker entered on: 06/25/16 Sex Patient Care team information Care Team Personnel Name: Hannah Roque RN Position: S RN Member Role: Primary Care Nurse Name: Reggie Godinez RN Position: S RN Member Role: Primary Care Nurse Name: Christiane Cedillo RN Position: [facility] RN Member Role: Primary Care Nurse Name: Brandon Freeman MD Position: [facility] Primary Care Physician Member Role: PCP Address: Address: [address] [place] [phone]- [place] Name: Janeen Hoskins RN Position: [facility] RN Member Role: Primary Care Nurse Name: Cydney Mckinney RN Position: [facility] RN Member Role: Primary Care Nurse Name: Frantz Mi III, RN Position: [facility] RN Member Role: Primary Care Nurse Name: Tahmina NURSING SCHEDULER, Cate Melgar Position: Reference Physician Member Role: Primary Care Nurse Address: Address: [address] [place] [phone]- [place] Name: Fay Morton RN Position: [facility] RN Member Role: Primary Care Nurse Name: Massiel Lu RN Position: [facility] RN Member Role: Primary Care Nurse Name: Lurdes Mujica RN Position: [facility] RN Member Role: Primary Care Nurse Name: Brandie Horvath RN Position: [facility] Inter Fold Roll Cutter Member Role: Primary Care Nurse Name: Claribel Howe RN Position: [facility] RN Member Role: Primary Care Nurse Care Team Related Persons Name: JOHAN PERKINS Name: DAWOOD DE LOS SANTOS Address: home [address] [place] [id number] Name: JENNIFER JUAREZ Address: home [address] [place] [address]
--- OUTSIDE RECORDS SUMMARY | 2023-06-15 11:54 | XMS_ITS | Continuity of Care Document ---
Author Name Unknown Organization [facility] Chace lt Address [address] [place] [address]- Care Team Providers Care Insurance Account Representative Name Role Phone Brandon Freeman MD Primary Care Physician [phone] [facility]20 - 06/06/20 [facility] Adult [address] [place] [address]- [facility] Allergies, Adverse Reactions, Alerts Substance Reaction [...] GIVEN 3Admin Note: [facility] 4Admin Note: [facility] VIS [phone] given 5Admin Note: given by lisy short [...] CONSTIPATION, # 7 supp, 11 Refills, Acute, [facility], 175.2, cm, 10/12/19 8:18:00 EST, Height [...] capsule, 4 Refills, Acute, 02/28/20 12:34:00 EDT, [facility], 30, TAKE 1 CAPSULE BY MOUTH [...] Replace Required Details, Route to Pharmacy Electronically, [facility]... Start Date: 11/05/19 Status: Ordered Ditropan XL 10 mg oral tablet, extended release 10, mg, 1, tablet, By Mouth, Daily, 0, 01/03/07 9:24:09, Print ANNE-MARIE Number, [id number], Constant Indicator Start Date: 01/03/07 Status: Ordered DOK 100 mg oral tablet See Instructions, TAKE 1 TABLET BY MOUTH TWICE DAILY (STOOL SOFTENER EQUIVALENT), # 60 tablet, 5 Refills, Soft Stop, 05/08/20 13:17:00 EDT, [facility], 175.2, cm, 10/12/19 8:18:00 EST, Height, [...] Instructions Replace Required Details, Route toPharmacy Electronically, [facility], 175.2, cm... Start Date: 04/09/20 Status: [...] 0, 0, 01/03/07 9:24:42, Print ANNE-MARIE Number, [id number], Constant Indicator Start Date: 01/03/07 Status: Ordered [...] 12/25/18 11:23:03 EST, Route to Pharmacy Electronically, [id number], [facility] Start Date: 12/25/18 Status: Ordered lactulose 10 gm/15 ml oral syrup See Instructions, # 946 mL, Refills 9 Tot. Refills 9, TWO TABLESPOONFULS BY MOUTH DAILY AT BEDTIME FOR CONSTIPATION / GIVE WITH LIQUIDS JUICE/WATER / 2 TBSP = 30 ML DOSE = 20 GRAMS, [facility] Start Date: 08/10/19 Status: Ordered loratadine 10 mg oral tablet 10 mg, 1, tablet, By Mouth, Daily, PER DR FREEMAN, # 30 tablet, Refills 11, Tot. Refills 11, 02/19/20 9:46:00 EDT, Route to Pharmacy Electronically, [facility], 175.2, cm, 10/12/19 8:18:00 EST, Height, 73.2, kg, 03/05/18 17:34:00 EDT, Dry Weight Start Date: 02/19/20 Status: Ordered Milk of Magnesia 8% oral suspension 30 mL = 2.4 Gm, By Mouth, Daily at bedtime, # 900 mL, 5 Refills, Maintenance, 02/20/20 12:44:00 EDT, [facility], 175.2, cm, 10/12/19 8:18:00 EST, Height, 73.2, kg, 03/05/18 17:34:00 EDT, Dry Weight Start Date: 02/20/20 Stop Date: 08/18/20 Status: Ordered omeprazole 20 mg oral enteric coated capsule 1 capsule = 20 mg, By Mouth, 2 times a day, # 30 capsule, 11 Refills, Soft Stop, 05/07/20 17:03:00 EDT, [facility], 175.2, cm, 10/12/19 8:18:00 EST, Height, [...] Raynaud's phenomenon(Confirmed) Active UI (urinary incontinence)(Confirmed) Active 22029; repeat 2020; repeat 2017 3egd 2012 barretts, repeat 2014 4egd 2010 positive barretts repeat 2012 5C2 6colonoscopy 2007 nl repeat 2016 7repeat 2024 [id number] Social History Social History Type Response Smoking Status Never smoker entered on: 06/25/16 Sex
--- OUTSIDE RECORDS SUMMARY | 2023-06-15 11:54 | XMS_ITS | Continuity of Care Document ---
Author Name [facility] Address [address] [place] [address]- Care Team Providers Care Director Of Graduate Admissions Name Role Phone Brandon Freeman MD Primary Care Physician [phone] [facility]23 - 03/03/23 [facility] Adult [address] [place] [address]- Allergies, Adverse Reactions, Alerts Substance Reaction Severity Status azithromycin Active macrolide antibiotics Active Dust Active ketolides Active Immunizations Given and Recorded Vaccine Date Status Refusal Reason [id number] 12y+ bivalent booster vax 07/22/22 Recorded tetanus-diphtheria [...] clinic 5Admin Note: [facility] 6Admin Note: [facility] VIS [phone] given 7Admin Note: given in clinic 8Result Comment: Pt. already received on 08/07/2015 Medications acetaminophen 325 mg oral tablet 2, tablet, By Mouth, Every 6 hours, PRN, [id number]., # 60 tablet, Refills 0, Maintenance, NEEDED FOR FEVER>100.5 OR PAIN SHOWN BY FACIAL GRIMACE NOTIFY MD IF USED >, 11/12/22 9:30:00 EST, Route to Pharmacy Electronically, [facility], 175.2, c... Start Date: 11/12/22 Stop Date: 11/15/22 Status: Ordered bacitracin zinc 500 units/g topical ointment See Instructions, APPLY SMALL AMOUNT TOPICALLY TO SUPERFICIAL WOUNDS 4 TIMES A DAY NEEDED AN ANTIBACTERIAL / CALL MD IF USING FOR MORE THAN 7 DAYS, # 28 Gm, 11 Refills, Maintenance, 11/09/22 15:57:00 EST, [facility], 7, APPLY SMALL AMOUNT T... [...] supp, 11 Refills, Maintenance, 12/16/22 13:35:00 EST, [facility], 175.2, cm, 07/27/22 11:37:00 EDT, [...] 30 SEC... Start Date: 10/26/18 Status: Ordered [facility] oral capsule 1 capsule, By Mouth, Daily, FOR INTESTINAL HEALTH., # 30 capsule, 11 Refills, Maintenance, 07/29/2211:36:00 EDT, [facility], 30, 1 capsule By Mouth Daily,Instr:FOR [...] 19 GM, # 133 mL, 11 Refills, [facility], 5, ONE ENEMA PERRECTUM DAY 5 WITHOUT BOWEL MOVEMENT / IF NO RESULTS... Start Date: 03/16/22 Status: Ordered Ditropan XL 10 mg oral tablet, extended release 10, mg, 1, tablet, By Mouth, Daily, 0, 01/03/07 9:24:09, Print ANNE-MARIE Number, [id number], Constant Indicator Start Date: 01/03/07 Status: Ordered DOK 100 mg oral tablet See Instructions, TAKE 1 TABLET BY MOUTH TWICE DAILY (AM AND PM) (STOOL SOFTENER EQUIVALENT), # 60 tablet, 5 Refills, Maintenance, 02/02/23 15:38:00 EDT, [facility], 175.2, cm, 02/01/23 15:11:00EDT, Height [...] Instructions Replace Required Details, Route toPharmacy Electronically, [facility], 175.2, cm... Start Date: 04/09/20 Status: Ordered fit to pt fit to pt, See Instructions, # 1 units, Refills 0, Tot. Refills 0, Maintenance, rigid cervical collar. Fit to pt., 06/21/18 15:59:47 EDT, Compound Start Date: 06/21/18 Status: Ordered Flomax 0.4 mg oral capsule 0.4, mg, 1, capsule, By Mouth, Daily, 0, 0, 01/03/07 9:24:42, Print ANNE-MARIE Number, [id number], Constant Indicator Start Date: 01/03/07 Status: Ordered [...] Gm, 11 Refills, Maintenance, 12/11/19 11:11:00 EST, [facility], APPLY TO EXTERNAL HEMMORRHOIDS TWICE DAILY PRN PER DR FREEMAN, 175.2, cm, 10/12/19 8:18:00 EST, Height,... Start Date: 12/11/19 Status: Ordered ibuprofen 400 mg oral tablet 400 mg, 1, tablet, By Mouth, 3 times a day, PRN, # 30 tablet, Refills 1, Tot. Refills 1, Maintenance, as needed for pain, 12/25/18 11:23:03 EST, Route to Pharmacy Electronically, [id number], [facility] Start Date: 12/25/18 Status: Ordered lactulose 10 gm/15 ml oral syrup = 20 Gm, By Mouth, Daily at bedtime, # 946 mL, 11 Refills, Maintenance, 09/01/22 7:18:00 EDT, [facility], 31, 20 Gm By Mouth Daily [...] FOR ALLERGIC RHINITIS, Route to Pharmacy Electronically, [facility], 175.2, cm, 07/20/21 10:29:00 EDT, Height Start Date: 11/10/21 Status: Ordered Milk of Magnesia 8% oral suspension 30 mL, By Mouth, Daily at bedtime, FOR CONSTIPATION FYEW=8687 MG., # 900 mL, 5 Refills, Maintenance, 07/01/22 13:24:00 EDT, [facility], 175.2, cm, 04/15/22 9:44:00 EDT, Height Start Date: 07/01/22 Status: Ordered omeprazole 40 mg oral enteric coated capsule 1 capsule, By Mouth, Daily in AM, # 30 capsule, 5 Refills, Maintenance, 02/01/23 7:37:00 EDT, [facility], 175.2, cm, 07/27/22 11:37:00 EDT, Height Start Date: 02/01/23 Status: Ordered polyethylene glycol 3350 oral powder for reconstitution See Instructions, MIX 17GM WITH 8 OUNCES OF WATER OR JUICE DAILY AT 5PM FOR CONSTIPATION (POLYETHYLENE GLYCOL), # 510 Gm, 11 Refills, Physician Stop 10/07/23 11:17:00 EST, 10/07/22 11:17:00 EST, [facility], 30, MIX 17GM WITH 8 OUNCES OF WATER OR... Start Date: 10/07/22 Stop Date: 10/07/23 Status: Ordered pravastatin 40 mg oral tablet See Instructions, TAKE 1 TABLET BY MOUTH DAILY IN THE PM FOR HYPERLIPIDEMIA, # 30 tablet, 5 Refills, Maintenance, 11/18/22 15:41:00 EST, [facility], 175.2, cm, 07/27/22 11:37:00 EDT, [...] Confirmed Active UI (urinary incontinence) Confirmed Active 60345; repeat 2020 06900; repeat 2018 3egd 2012 barretts, repeat 2015 4egd 2010 positive barretts repeat 2011 5C2 6colonoscopy 2006 nl repeat 2016 7repeat 2024 32325 Social History Social History Type Response Smoking Status Never smoker entered on: 06/25/16 Sex Patient Care team information Care Team Personnel Name: Hannah Roque RN Position: S RN Member Role: Primary Care Nurse Name: Reggie Godinez RN Position: S RN Member Role: Primary Care Nurse Name: Christiane Cedillo RN Position: [facility] RN Member Role: Primary Care Nurse Name: Brandon Freeman MD Position: [facility] Primary Care Physician Member Role: PCP Address: Address: [address] [place] [phone]- [place] Name: Janeen Hoskins RN Position: [facility] RN Member Role: Primary Care Nurse Name: Cydney Mckinney RN Position: [facility] RN Member Role: Primary Care Nurse Name: Frantz Mi III, RN Position: [facility] RN Member Role: Primary Care Nurse Name: Tahmina CAMPAIGN COORDINATOR, Cate Melgar Position: Reference Physician Member Role: Primary Care Nurse Address: Address: [address] [place] [phone]- [place] Name: Fay Morton RN Position: [facility] RN Member Role: Primary Care Nurse Name: Massiel Lu RN Position: [facility] RN Member Role: Primary Care Nurse Name: Lurdes Mujica RN Position: [facility] RN Member Role: Primary Care Nurse Name: Brandie Horvath RN Position: [facility] [employer] Teacher Member Role: Primary Care Nurse Name: Claribel Howe RN Position: [facility] RN Member Role: Primary Care Nurse Care Team Related Persons Name: JOHAN PERKINS Name: DAWOOD DE LOS SANTOS Address: home [address] [place] [id number] Name: JENNIFER JUAREZ Address: [address] [place] [address]
--- OUTSIDE RECORDS SUMMARY | 2023-06-15 11:54 | XMS_ITS | Continuity of Care Document ---
Author Name Unknown Organization [facility] Address [address] [place] [address]- Care Team Providers Care Central Lab Technician Name Role Phone Brandon Freeman MD Primary Care Physician [phone] Encounter [facility] Date(s): 10/05/22 - 11/04/22 [facility] Adult [address] [place] [address]- Allergies, Adverse Reactions, Alerts Substance Reaction Severity Status azithromycin Active macrolide antibiotics Active Dust Active ketolides Active Immunizations Given and Recorded Vaccine Date Status Refusal Reason [id number] 12y+ bivalent booster vax 07/22/22 Recorded tetanus-diphtheria [...] clinic 5Admin Note: [facility] 6Admin Note: [employer] [facility] VIS [phone] given 7Admin Note: given in clinic 8Result Comment: Pt. already received on 08/07/2015 Medications bacitracin zinc 500 units/g topical ointment See Instructions, APPLY SMALL AMOUNT TOPICALLY TO SUPERFICIAL WOUNDS 4 TIMES A DAY NEEDED AN ANTIBACTERIAL / CALL MD IF USING FOR MORE THAN 7 DAYS, # 1 Gm, 11 Refills, Acute, [facility], 7, APPLY SMALL AMOUNT TOPICALLY TO [...] FOR CONSTIPATION, # 7 supp, 11 Refills, [facility], 175.2, cm, 07/20/21 10:29:00 EDT, Height [...] 30 capsule, 11 Refills, Maintenance, 07/29/2211:36:00 EDT, [facility], 30, 1 capsule By Mouth Daily,Instr:FOR [...] 19 GM, # 133 mL, 11 Refills, [facility], 5, ONE ENEMA PERRECTUM DAY 5 WITHOUT BOWEL MOVEMENT / IF NO RESULTS... Start Date: 03/16/22 Status: Ordered Ditropan XL 10 mg oral tablet, extended release 10, mg, 1, tablet, By Mouth, Daily, 0, 01/03/07 9:24:09, Print ANNE-MARIE Number, [id number], Constant Indicator Start Date: 01/03/07 Status: Ordered DOK 100 mg oral tablet See Instructions, TAKE 1 TABLET BY MOUTH TWICE DAILY (STOOL SOFTENER EQUIVALENT), # 60 tablet, 5 Refills, Maintenance, 08/12/22 9:24:00 EDT, [facility], 175.2, cm, 07/27/22 11:37:00 EDT, Height [...] Instructions Replace Required Details, Route toPharmacy Electronically, [facility], 175.2, cm... Start Date: 04/09/20 Status: Ordered fit to pt fit to pt, See Instructions, # 1 units, Refills 0, Tot. Refills 0, Maintenance, rigid cervical collar. Fit to pt., 06/21/18 15:59:47 EDT, Compound Start Date: 06/21/18 Status: Ordered Flomax 0.4 mg oral capsule 0.4, mg, 1, capsule, By Mouth, Daily, 0, 0, 01/03/07 9:24:42, Print ANNE-MARIE Number, [id number], Constant Indicator Start Date: 01/03/07 Status: Ordered hydrochlorothiazide 25 mg oral tablet See Instructions, TAKE 1 TAB BY MOUTH DAILY IN AM FOR HTN/MONITOR BP/IF SYSTOLIC MORE THAN 160, DIASTOLIC MORE THAN 100, SYSTOLIC LESS THAN 90, OR DIASTOLIC LESS THAN 50 CALLMO, # 30 tablet, Refills 5, Maintenance, 09/16/22 [...] Gm, 11 Refills, Maintenance, 12/11/19 11:11:00 EST, [facility], APPLY TO EXTERNAL HEMMORRHOIDS TWICE DAILY PRN PER DR FREEMAN, 175.2, cm, 10/12/19 8:18:00 EST, Height,... Start Date: 12/11/19 Status: Ordered ibuprofen 400 mg oral tablet 400 mg, 1, tablet, By Mouth, 3 times a day, PRN, # 30 tablet, Refills 1, Tot. Refills 1, Maintenance, as needed for pain, 12/25/18 11:23:03 EST, Route to Pharmacy Electronically, [id number], [facility] Start Date: 12/25/18 Status: Ordered lactulose 10 gm/15 ml oral syrup = 20 Gm, By Mouth, Daily at bedtime, # 946 mL, 11 Refills, Maintenance, 09/01/22 7:18:00 EDT, [facility], 31, 20 Gm By Mouth Daily [...] FOR ALLERGIC RHINITIS, Route to Pharmacy Electronically, [facility], 175.2, cm, 07/20/21 10:29:00 EDT, Height Start Date: 11/10/21 Status: Ordered Milk of Magnesia 8% oral suspension 30 mL, By Mouth, Daily at bedtime, FOR CONSTIPATION GIUQ=6695 MG., # 900 mL, 5 Refills, Maintenance, 07/01/22 13:24:00 EDT, [facility], 175.2, cm, 04/15/22 9:44:00 EDT, Height Start Date: 07/01/22 Status: Ordered omeprazole 40 mg oral enteric coated capsule See Instructions, TAKE 1 CAPSULE BY MOUTH DAILY FOR GERD IN AM, # 30 capsule, 2 Refills, Maintenance, 11/04/22 10:43:00 EST, [facility], 175.2, cm, 07/27/22 11:37:00 EDT, Height Start Date: 11/04/22 Status: Ordered polyethylene glycol 3350 oral powder for reconstitution See Instructions, MIX 17GM WITH 8 OUNCES OF WATER OR JUICE DAILY AT 5PM FOR CONSTIPATION (POLYETHYLENE GLYCOL), # 510 Gm, 11 Refills, Physician Stop 10/07/23 11:17:00 EST, 10/07/22 11:17:00 EST, [facility], 30, MIX 17GM WITH 8 OUNCES OF WATER OR... Start Date: 10/07/22 Stop Date: 10/07/23 Status: Ordered pravastatin 40 mg oral tablet See Instructions, TAKE 1 TABLET BY MOUTH DAILY IN THE PM FOR HYPERLIPIDEMIA, # 30 tablet, 5 Refills, [facility], 175.2, cm, 04/15/22 9:44:00 EDT, Height Start Date: 05/25/22 Status: Ordered Robafen 100 mg/5 ml oral liquid 10 mL, By Mouth, 4 times a day, PRN NEEDED FOR COUGH/NOTIFY MD IF NO RELIEF AFTER 48 HRS / DOSE =, GUAIFENESIN (TUSSIN MUCUS-CONGEST 100MG/5ML., # 240 mL, 4 Refills, Acute 11/25/22 12:02:00 EST, 11/25/21 12:02:00 EST, [facility], 175.2, cm, 09... Start Date: 11/25/21 [...] 30 tablet, 5 Refills, 10/05/22 11:07:00 EST, [facility], 30, TAKE 1 TABLET BY MOUTH [...] Confirmed Active UI (urinary incontinence) Confirmed Active 23751; repeat 2020 60188; repeat 2018 3egd 2011 barretts, repeat 2014 4egd 2010 positive barretts repeat 2012 5C2 6colonoscopy 2007 nl repeat 2016 7repeat 2024 00274 Social History Social History Type Response Smoking Status Never smoker entered on: 06/25/16 Sex Patient Care team information Care Team Personnel Name: Hannah Roque RN Position: S RN Member Role: Primary Care Nurse Name: Reggie Godinez RN Position: S RN Member Role: Primary Care Nurse Name: Christiane Cedillo RN Position: S RN Member Role: Primary Care Nurse Name: Brandon Freeman MD Position: [facility] Primary Care Physician Member Role: PCP Address: Address: [address] [place] [address]- [place] Name: Janeen Hoskins RN Position: [facility] RN Member Role: Primary Care Nurse Name: Cydney Mckinney RN Position: [facility] RN Member Role: Primary Care Nurse Name: Frantz Mi III, RN Position: [facility] RN Member Role: Primary Care Nurse Name: Cate Martel NP Position: Reference Physician Member Role: Primary Care Nurse Address: Address: [address] [place] [address]- [place] Name: Fay Morton RN Position: [facility] RN Member Role: Primary Care Nurse Name: Massiel Lu RN Position: [facility] RN Member Role: Primary Care Nurse Name: Lurdes Mujica RN Position: [facility] RN Member Role: Primary Care Nurse Name: Brandie Horvath RN Position: [facility] Heel Seat Filler Member Role: Primary Care Nurse Name: Claribel Howe RN Position: [facility] RN Member Role: Primary Care Nurse Care Team Related Persons Name: JOHAN PERKINS Name: DAWOOD DE LOS SANTOS Address: home [address] [place] [id number] Name: JENNIFER JUAREZ Address: home [address] [place] [address]
--- OUTSIDE RECORDS SUMMARY | 2023-06-15 11:54 | XMS_ITS | Continuity of Care Document ---
Author Name Unknown Organization [facility] lt Address [address] [place] [address]- Care Team Providers Care Curve Cleaner Name Role Phone Brandon Freeman MD Primary Care Physician Encounter [facility] Date(s): 05/13/23 - 05/20/23 [facility] [address] [place] [address]- Encounter Diagnosis UTI symptoms(Discharge Diagnosis) - 05/13/23 Unsteady gait(Discharge Diagnosis) - 05/13/23 Fatigue(Discharge Diagnosis) - 05/13/23 Anemia(Discharge Diagnosis) - 05/13/23 Weight loss(Discharge Diagnosis) - 05/13/23 Attending Physician: Not on Staff, Attending MD Allergies, Adverse Reactions, Alerts Substance Reaction Severity Status azithromycin Active macrolide antibiotics Active Dust Active ketolides Active Immunizations Given and Recorded Vaccine Date Status Refusal Reason [id number] 12y+ bivalent booster vax 07/22/22 Recorded tetanus-diphtheria [...] clinic 5Admin Note: [facility] 6[facility] VIS [id number] given 7Admin Note: given in clinic 8Result Comment: Pt. already received on 08/07/2015 Medications acetaminophen 325 mg oral tablet 2, tablet, By Mouth, Every 6 hours, PRN, [id number]., # 60 tablet, Refills 0, Maintenance, NEEDED FOR FEVER>100.5 OR PAIN SHOWN BY FACIAL GRIMACE NOTIFY MD IF USED >, 11/12/22 9:30:00 EST, Route to Pharmacy Electronically, [facility], 175.2, c... Start Date: 11/12/22 Stop Date: 11/15/22 Status: Ordered bacitracin zinc 500 units/g topical ointment See Instructions, APPLY SMALL AMOUNT TOPICALLY TO SUPERFICIAL WOUNDS 4 TIMES A DAY NEEDED AN ANTIBACTERIAL / CALL MD IF USING FOR MORE THAN 7 DAYS, # 28 Gm, 11 Refills, Maintenance, 11/09/22 15:57:00 EST, [facility], 7, APPLY SMALL AMOUNT T... Start [...] supp, 11 Refills, Maintenance, 12/16/22 13:35:00 EST, [facility], 175.2, cm, 07/27/22 11:37:00 EDT, Height [...] 30 capsule, 11 Refills, Maintenance, 07/29/2211:36:00 EDT, [facility], 30, 1 capsule By Mouth Daily,Instr:FOR [...] Stop 04/06/24 13:54:00 EDT, 04/05/23 13:54:00 EDT, [facility], 5, ONE... Start Date: 04/05/23 Stop Date: 04/06/24 Status: Ordered Ditropan XL 10 mg oral tablet, extended release 10, mg, 1, tablet, By Mouth, Daily, 0, 01/03/07 9:24:09, Print ANNE-MARIE Number, [id number], Constant Indicator Start Date: 01/03/07 Status: Ordered DOK 100 mg oral tablet See Instructions, TAKE 1 TABLET BY MOUTH TWICE DAILY (AM AND PM) (STOOL SOFTENER EQUIVALENT), # 60 tablet, 5 Refills, Maintenance, 02/02/23 15:38:00 EDT, [facility], 175.2, cm, 02/01/23 15:11:00EDT, Height Start [...] Instructions Replace Required Details, Route toPharmacy Electronically, [facility], 175.2, cm... Start Date: 04/09/20 Status: Ordered fit to pt fit to pt, See Instructions, # 1 units, Refills 0, Tot. Refills 0, Maintenance, rigid cervical collar. Fit to pt., 06/21/18 15:59:47 EDT, Compound Start Date: 06/21/18 Status: Ordered Flomax 0.4 mg oral capsule 0.4, mg, 1, capsule, By Mouth, Daily, 0, 0, 01/03/07 9:24:42, Print ANNE-MARIE Number, [phone], Constant Indicator Start Date: 01/03/07 Status: Ordered hydrochlorothiazide 25 mg oral tablet 1, tablet, By Mouth, Daily in AM, FOR HTN/MONITOR BP/IF SYSTOLIC MORE THAN 160, DIASTOLIC MORE [id number], SYSTOLIC LESS THAN 90, OR DIASTOLIC LESS [...] Gm, 11 Refills, Maintenance, 12/11/19 11:11:00 EST, [facility], APPLY TO EXTERNAL HEMMORRHOIDS TWICE DAILY PRN PER DR FREEMAN, 175.2, cm, 10/12/19 8:18:00 EST, Height,... Start Date: 12/11/19 Status: Ordered ibuprofen 400 mg oral tablet 400 mg, 1, tablet, By Mouth, 3 times a day, PRN, # 30 tablet, Refills 1, Tot. Refills 1, Maintenance, as needed for pain, 12/25/18 11:23:03 EST, Route to Pharmacy Electronically, [id number], [facility] Start Date: 12/25/18 Status: Ordered lactulose 10 gm/15 ml oral syrup = 20 Gm, By Mouth, Daily at bedtime, # 946 mL, 11 Refills, Maintenance, 09/01/22 7:18:00 EDT, [facility], 31, 20 Gm By Mouth Daily [...] 03/08/23 11:54:00 EDT, Route to Pharmacy Electronically, [facility], Partial fill u... Start Date: 03/08/23 Stop Date: 03/08/24 Status: Ordered loratadine 10 mg oral tablet 1, tablet, By Mouth, Daily, PRN, # 30 tablet, Refills 11, NEEDED FOR ALLERGY SYMPTOMS WATERY, ITCHY RED EYES, SNEEZING FOR ALLERGIC RHINITIS, Route to Pharmacy Electronically, [facility], 175.2, cm, 07/20/21 10:29:00 EDT, Height Start Date: 11/10/21 Status: Ordered Milk of Magnesia 8% oral suspension 30 mL, By Mouth, Daily at bedtime, FOR CONSTIPATION CDCQ=5509 MG., # 900 mL, 5 Refills, Maintenance, 04/04/23 21:00:00 EDT, [facility], 175.2, cm, 02/01/23 15:11:00 EDT, Height Start Date: 04/04/23 Status: Ordered omeprazole 40 mg oral enteric coated capsule 1 capsule, By Mouth, Daily in AM, # 30 capsule, 5 Refills, Maintenance, 02/01/23 7:37:00 EDT, [facility], 175.2, cm, 07/27/22 11:37:00 EDT, Height Start Date: 02/01/23 Status: Ordered polyethylene glycol 3350 oral powder for reconstitution See Instructions, MIX 17GM WITH 8 OUNCES OF WATER OR JUICE DAILY AT 5PM FOR CONSTIPATION (POLYETHYLENE GLYCOL), # 510 Gm, 11 Refills, Physician Stop 10/07/23 11:17:00 EST, 10/07/22 11:17:00 EST, [facility], 30, MIX 17GM WITH 8 OUNCES OF WATER OR... Start Date: 10/07/22 Stop Date: 10/07/23 Status: Ordered pravastatin 40 mg oral tablet See Instructions, TAKE 1 TABLET BY MOUTH DAILY IN THE PM FOR HYPERLIPIDEMIA, # 30 tablet, 5 Refills, Maintenance, 05/19/23 0:31:00 EDT, [facility], 175.2, cm, 05/13/23 11:02:00 EDT, Height [...] 1 Refills, Maintenance, 05/11/22 14:45:00 EDT, Cream, [facility], Partial fill upon patient request if [...] tablet, 5 Refills, Maintenance, 04/04/23 21:00:00 EDT, [facility], 30, TAKE 1 TABLET BY MOUTH [...] Confirmed Active UI (urinary incontinence) Confirmed Active 03646; repeat 202015; repeat 2017 3egd 2011 barretts, repeat 2014 4egd 2009 positive barretts repeat 2011 5C2 6colonoscopy 2007 nl repeat 2016 7repeat 2024 16436 Diagnosis Diagnosis Type Effective Dates Health Status Cl inical Service Informant UTI symptoms Discharge Diagnosis 05/13/23 Unsteady gait Discharge Diagnosis 05/13/23 Fatigue Discharge Diagnosis 05/13/23 Anemia Discharge Diagnosis 05/13/23 Weight loss Discharge Diagnosis 05/13/23 Vital Signs Most recent to oldest [Reference Range]: 1 Height 175.2 cm (05/13/23 11:02 AM) Oxygen Saturation [94-100 %] 98 % (05/13/23 11:02 AM) Pulse Rate [55-90 bpm] 56 bpm (05/13/23 11:02 AM) Blood Pressure [90-138/55-84 mm Hg] 94/6 0mm Hg (05/13/23 11:02 AM) Respiratory Rate [16-30 br/min] 16 br/mi n (05/13/23 11:02 AM) Mode of Delivery (Oxygen) Room air (05/13/23 11:02 AM) Social History Social History Type Response Smoking Status Never smoker entered on: 06/25/16 Sex Note * Simona Stockton: PERFORM, SIGN, VERIFY Event Display: Patient Education/Instruction Authored Date: [id number] [facility] *BMP [place] [facility] Clinical Summary Name JOHAN CRISOSTOMO Age 72 Years 1950 PCP Brandon Freeman MD PCP Visit Date 05/13/2023 10:51:00 Additional Instructions: Scheduled Appointments?? Future Appointments ?*BMP??So[facility] [address] ?Phone:??--?Fax:??-- ?Appt. Date:??08/02/2023?10:30 AM ?Scheduled Provider:??Brandon Freeman MD Follow-Up Instructions ?? Diagnosis Anemia, unspecified Medications: Please continue your medications until treatment is completed or stopped by your provider. Discuss any questions related to medications with your provider. Medications to Continue with No Changes These medications were not printed or sent to your pharmacy Acetaminophen (acetaminophen 325 mg oral tablet) 2 tab(s) Oral every 6 hours as needed NEEDED FOR FEVER>100.5 OR PAIN SHOWN BY FACIAL GRIMACE NOTIFY MD IF USED > for 3 Days. [id number].. Refills: 0. Next Dose: Bacitracin Topical (bacitracin zinc 500 units/g topical ointment) APPLY SMALL AMOUNT TOPICALLY TO SUPERFICIAL WOUNDS 4 TIMES A DAY NEEDED AN ANTIBACTERIAL / CALL MD IF USING FOR MORE THAN 7 DAYS. Refills: 11. Next Dose: Bisacodyl (bisacodyl 10 mg rectal suppository) INSERT 1 SUPPOSITORY INTO RECTUM 8PM ON 4TH DAY IF NO B.M. AFTER MILK OF MAG FOR CONSTIPATION. Refills: 11. Next Dose: Chlorhexidine Topical (chlorhexidine topical 0.12% liquid) 15 Milliliter Oral twice a day. RINSE 1/2 OZ FOR 30 SECONDS AFTER BREAKFAST & BEFORE BEDTIME/EXPECTORATE. Refills: 3. Next Dose: Diazepam (diazepam 10 mg oral tablet) TAKE 1 TABLET BY MOUTH TWO HOURS PRIOR TO APPOINTMENT/PROCEDURE (EYE AND PODIATRY ONLY) FOR ANXIETY. Refills: 5. Next Dose: Docusate (DOK 100 mg oral tablet) TAKE 1 TABLET BY MOUTH TWICE DAILY (AM AND PM) (STOOL SOFTENER EQUIVALENT). Refills: 5. Next Dose: Durable Medical Equipment (BED RAILS) TO prevent falls. Refills: 0. Next Dose: Durable Medical Equipment (fit to pt) rigid cervical collar. Fit to pt.. Refills: 0. Next Dose: Emollients, Topical (Eucerin Plus Intensive Repair lotion) 1 applicator Topically twice a day. Any Eucerin in stock. Refills: 1. Next Dose: Famotidine (famotidine 20 mg oral tablet) TAKE 1 TABLET BY MOUTH TWICE DAILY FOR GERD GENERIC PEPCID. Refills: 2. Next Dose: Hydrochlorothiazide (hydrochlorothiazide 25 mg oral tablet) 1 tab(s) Oral Daily in the morning. FORHTN/MONITOR BP/IF SYSTOLIC MORE THAN 160, DIASTOLIC MORE THAN 100, SYSTOLIC LESS THAN 90, OR DIASTOLIC LESS THAN 50 CALLMD.. Refills: 1. Next Dose: Hydrocortisone Topical (hydrocortisone 1% topical cream) APPLY TO EXTERNAL HEMMORRHOIDS TWICE DAILYPRN PER DR FREEMAN. Refills: 11. Next Dose: Ibuprofen (ibuprofen 400 mg oral tablet) 1 tab(s) Oral 3 times a day as needed as needed for pain. Refills: 1. Next Dose: Lactobacillus GG ([employer] [facility] oral capsule) 1 capsule Oral Daily. FOR INTESTINALHEALTH.. Refills: 11. Next Dose: Lactulose (lactulose 10 gm/15 ml oral syrup) 20 gram Oral Daily at Bedtime. Refills: 11. Next Dose: Lisinopril (lisinopril 20 mg oral tablet) 1 tab(s) Oral Daily in the morning. FOR HTN / CALL MD IF SBP GREATER THAN 160 OR DBP GREATER THAN 100 OR SBP LESS THAN 90 OR DBP LESS THAN 50.. Refills: 5. Next Dose: Loperamide (loperamide 2 mg oral capsule) 1 capsule Oral every 4 hours. FOR DIARRHEA / CALL MD IF USING MORE THAN 48 HRS. Refills: 2. Next Dose: Loratadine (loratadine 10 mg oral tablet) 1 tab(s) Oral Daily as needed NEEDED FOR ALLERGY SYMPTOMS WATERY, ITCHY RED EYES, SNEEZING FOR ALLERGIC RHINITIS. Refills: 11. Next Dose: Milk of Magnesia (Milk of Magnesia 8% oral suspension) 30 Milliliter Oral Daily at Bedtime. FOR CONSTIPATION MFEP=1998 MG.. Refills: 5. Next Dose: Miscellaneous Rx (Eucerin cream) Apply to feet daily. Refills: 11. Next Dose: Miscellaneous Rx (HYDROCORTISONE 1% CREAM 1 Cream) APPLY A LIGHT APPLICATION TO EXTERNAL HEMORRHOIDS TWICE DAILY NEEDED, BLEEDING SWELLING, ITCHING / NOTIFY MD IF NOT RESOLVED X 3 DAYS. Refills: 11. Next Dose: Miscellaneous Rx (TERBINAFINE 1% CREAM 1 Cream) APPLY TO AFFECTED AREA TWICE DAILY NEEDED FOR RASH ON FEET. Refills: 1. Next Dose: Miscellaneous Rx (thera multivitamin) po qd. Refills: 5. Next Dose: Multivitamin (Thera oral tablet) 1 tab(s) Oral Daily. @ 9PM, VITAMIN SUPPLEMENT.. Refills: 5. Next Dose: Omeprazole (omeprazole 40 mg oral enteric coated capsule) 1 capsule Oral Daily in the morning. Refills: 5. Next Dose: Oxybutynin (Ditropan XL 10 mg oral tablet, extended release) 1 tab(s) Oral Daily. Next Dose: Polyethylene Glycol 3350 (polyethylene glycol 3350 oral powder for reconstitution) MIX 17GM WITH 8 OUNCES OF WATER OR JUICE DAILY AT 5PM FOR CONSTIPATION (POLYETHYLENE GLYCOL). Refills: 11. Next Dose: Pravastatin (pravastatin 40 mg oral tablet) TAKE 1 TABLET BY MOUTH DAILY IN THE PM FOR HYPERLIPIDEMIA. Refills: 5. Next Dose: Sodium Biphosphate-Sodium Phosphate (Disposable Enema 7 g-19 g rectal enema) ONE ENEMA PER RECTUM DAY 5 WITHOUT BOWEL MOVEMENT / IF NO RESULTS NOTIFY MD / FOR CONSTIPATION / IC FLEET ENEMA 7 GM - 19 GM. Refills: 11. Next Dose: Tamsulosin (Flomax 0.4 mg oral capsule) 1 capsule Oral Daily. Next Dose: Terbinafine Topical (terbinafine 1% topical cream) 1 shad Topically twice a day for 14 Days. Refills: 1. Next Dose: zoster vaccine, inactivated (Shingrix intramuscular injection) 0.5 Milliliter Intramuscular once. Refills: 1. Next Dose: Allergy Info:?? ketolides; Dust; macrolide antibiotics; azithromycin Medications Given This Visit Future Orders ?Protein Electrophoresis? Order Date:05/13/23?- Complete on or after?05/13/23 ?Folate Level? Order Date:05/13/23?- Complete on or after?05/13/23 ?Vitamin B12 Level? Order Date:05/13/23?- Complete on or after?05/13/23 ?Thyroid Panel? Order Date:05/13/23?- Complete on or after?05/13/23 ?Iron + Iron Binding Capacity? Order Date:05/13/23?- Complete on or after?05/13/23 ?Ferritin? Order Date:05/13/23?- Complete on or after?05/13/23 ?Comprehensive Metabolic Panel? Order Date:05/13/23?- Complete on or after?05/13/23 ?CBC w/ Differential? Order Date:05/13/23?- Complete on or after?05/13/23 ?Vitamin D 25 Hydroxy Level? Order Date:05/13/23?- Complete on or after?05/13/23 Vital Signs Height 175.2 cm Weight BMI Blood Pressure 94 mm Hg/60 mm Hg Temperature Pulse Rate 56 bpm Respiratory Rate 16 br/min 02 Sat Mode of Delivery 98 %/Room air You can now view a summary of your hospital visit from the comfort of your home through a free online portal called [employer] is a website that allows you to securely view your medical information including discharge summary, medications and follow-up visits. ??You can alsosend a secure electronic message to your doctor???s office to request appointments, renew medications or just ask a question. You can enroll at [email or web address] or register during your next office visit. Disclaimer:?? The information provided is of a general nature and is intended to be used in conjunction with the recommendations and advice of your health care practitioner. ??Every effort has been made to ensure that the information provided is accurate and complete at the time it is provided to you however, as your needs change, or, as new ??information becomes available, different or additional instructions may be required. If you have questions, please consult with your primary care provider or pharmacist, as appropriate. ??This information is not intended to serve as substitution for assessment and evaluation by a qualified health care provider. If you do not have a primary care provider, you may find a [facility] provider by calling [facility] [employer] at [phone]. For information about the plan of care including goals and instructions for your diagnosis, please see the patient education orders section of this document. Patient Education Materials?? The content of this educational material or handout may have been modified, supplemented, or adapted from its original content and format to support your individualized medical care. Patient Care team information Care Team Personnel Name: Hannah Roque RN Position: [facility] RN Member Role: Primary Care Nurse Name: Reggie Godinez RN Position: [facility] RN Member Role: Primary Care Nurse Name: Christiane Cedillo RN Position: [facility] RN Member Role: Primary Care Nurse Name: Brandon Freeman MD Position: [facility] Physician - Primary Care Member Role: PCP Address: Address: [address] [place] [address]- [place] Name: Janeen Hoskins RN Position: [facility] RN Member Role: Primary Care Nurse Name: Cydney Mckinney RN Position: [facility] RN Member Role: Primary Care Nurse Name: Frantz Mi III, RN Position: [facility] RN Member Role: Primary Care Nurse Name: Cate Martel NP Position: Reference Physician Member Role: Primary Care Nurse Address: Address: [address] [place] [address]- [place] Name: Fay Morton RN Position: [facility] RN Member Role: Primary Care Nurse Name: Massiel Lu RN Position: [facility] RN Member Role: Primary Care Nurse Name: Lurdes Mujica RN Position: [facility] RN Member Role: Primary Care Nurse Name: Brandie Horvath RN Position: [facility] Exchange Floor Manager Member Role: Primary Care Nurse Name: Claribel Howe RN Position: [facility] SN RN Member Role: Primary Care Nurse Care Team Related Persons Name: JOHAN PERKINS Name: DAWOOD DE LOS SANTOS Address: home [address] [place] [id number] Name: JENNIFER JUAREZ Address: home [address] [place] [address]
--- OUTSIDE RECORDS SUMMARY | 2023-06-15 11:55 | XMS_ITS | Continuity of Care Document ---
Author Name Unknown Organization [facility] Chace lt Address [address] [place] [address]- Care Team Providers Care Food Order Delivery Runner Name Role Phone Brandon Freeman MD Primary Care Physician [facility] 12[facility]20 - 01/07/21 [facility] Adult [address] [place] [address]- Allergies, Adverse Reactions, Alerts Substance Reaction Severity [...] GIVEN 5Admin Note: FLU CLINIC 6Admin Note: [employer] [facility] VIS [phone] given 7Admin Note: given in clinic 8Result Comment: Pt. already received on 08/07/2015 Medications bacitracin zinc 500 units/g topical ointment See Instructions, APPLY SMALL AMOUNT TOPICALLY TO SUPERFICIAL WOUNDS 4 TIMES A DAY NEEDED AN ANTIBACTERIAL / CALL MD IF USING FOR MORE THAN 7 DAYS, # 1 Gm, 11 Refills, Acute, [facility], 7, APPLY SMALL AMOUNT TOPICALLY TO [...] CONSTIPATION, # 7 supp, 11 Refills, Acute, [facility], 175.2, cm, 10/12/19 8:18:00 EST, Height [...] Acute 07/27/21 9:44:00 EDT, 08/01/20 9:44:00 EDT, [facility], 1 capsule By Mouth Daily,x90 days,Instr:FOR INTESTINAL HEALTH., 175.2, cm, 07/09/20 10:27:00 E... Start Date: 08/01/20 Stop Date: 07/27/21 Status: Ordered diazepam 10 mg oral tablet See Instructions, PRN, 1 tablet By Mouth 1 hour prior to medical appointments, # 1 tablet, Refills 5, Tot. Refills 5, Maintenance, for anxiety, 01/07/21 11:49:00 EST, Instructions Replace Required Details, Route to Pharmacy Electronically, [facility] Start Date: 01/07/21 Status: Ordered Ditropan XL 10 mg oral tablet, extended release 10, mg, 1, tablet, By Mouth, Daily, 0, 01/03/07 9:24:09, Print ANNE-MARIE Number, [id number], Constant Indicator Start Date: 01/03/07 Status: Ordered DOK 100 mg oral tablet See Instructions, TAKE 1 TABLET BY MOUTH TWICE DAILY (STOOL SOFTENER EQUIVALENT), # 60 tablet, 5 Refills, Soft Stop, 11/06/20 9:22:00 EST, [facility], 175.2, cm, 07/09/20 10:27:00 EDT, Height [...] Instructions Replace Required Details, Route toPharmacy Electronically, [facility], 175.2, cm... Start Date: 04/09/20 Status: [...] 0, 0, 01/03/07 9:24:42, Print ANNE-MARIE Number, [id number], Constant Indicator Start Date: 01/03/07 Status: Ordered [...] 12/25/18 11:23:03 EST, Route to Pharmacy Electronically, [id number], [facility] Start Date: 12/25/18 Status: Ordered lactulose 10 gm/15 ml oral syrup See Instructions, TWO TABLESPOONFULS BY MOUTH DAILY AT BEDTIME FOR CONSTIPATION / GIVE WITH LIQUIDSJUICE/WATER / 2 TBSP = 30 ML DOSE = 20 GRAMS, # 946 mL, 11 Refills, Soft Stop, 08/15/20 7:20:00 EDT, [facility], TWO TABLESPOONFULS BY MOUTH DAILY... Start Date: 08/15/20 Status: Ordered loratadine 10 mg oral tablet 10 mg, 1, tablet, By Mouth, Daily, PER DR FREEMAN, # 30 tablet, Refills 11, Tot. Refills 11, 02/19/20 9:46:00 EDT, Route to Pharmacy Electronically, [facility], 175.2, cm, 10/12/19 8:18:00 EST, Height, 73.2, kg, 03/05/18 17:34:00 EDT, Dry Weight Start Date: 02/19/20 Status: Ordered Milk of Magnesia 8% oral suspension 30 mL = 2.4 Gm, By Mouth, Daily at bedtime, # 900 mL, 5 Refills, Maintenance, 09/02/20 12:20:00 EST, [facility], 175.2, cm, 07/09/20 10:27:00 EDT, Height, Dry Weight Start Date: 09/02/20 Stop Date: 03/01/21 Status: Ordered omeprazole 40 mg oral enteric coated capsule 1 capsule = 40 mg, By Mouth, Daily, # 30 capsule, 5 Refills, Maintenance, 12/04/20 6:53:00 EST, EC Capsule, [facility], Partial fill upon patient request if the prescription is for a schedule IIopioid drug., 175.2, cm, 11/28/20 7:21:00 EST, Height Start Date: 12/04/20 Status: Ordered polyethylene glycol 3350 oral powder for reconstitution = 17 Gm, By Mouth, Daily, dissolve in water or juice, # 527 Gm, 11 Refills, Maintenance, 08/26/20 9:54:00 EDT, [facility], 17 Gm By Mouth Daily,Instr:dissolve in water or juice, 175.2, cm, 07/09/20 10:27:00 EDT, Height Start Date: 08/26/20 Status: Ordered pravastatin 40 mg oral tablet 1 tablet = 40 mg, By Mouth, Daily, Pt needs labs, # 30 tablet, 2 Refills, Soft Stop, 11/17/20 12:45:00 EST, [facility], 175.2, cm, 07/09/20 10:27:00 EDT, Height Start Date: 11/17/20 Status: Ordered Robafen 100 mg/5 ml oral liquid 10 mL, By Mouth, 4 times a day, PRN NEEDED FOR COUGH/NOTIFY MD IF NO RELIEF AFTER 48 HRS / DOSE =, GUAIFENESIN (TUSSIN MUCUS-CONGEST 100MG/5ML., # 240 mL, 4 Refills, Acute, 10/28/20 6:38:00 EST, [facility], 175.2, cm, 07/09/20 10:27:00 EDT, He... [...] 08/07/20 12:37:00 EDT, Route to Pharmacy Electronically, [facility], 175.2, cm, 07/09/20 10:27:00 EDT, Height, [...] Raynaud's phenomenon(Confirmed) Active UI (urinary incontinence)(Confirmed) Active 89029; repeat 2020; repeat 2017 3egd 2011 barretts, repeat 2014 4egd 2009 positive barretts repeat 2011 5C2 6colonoscopy 2006 nl repeat 2016 7repeat 2024 [id number] Social History Social History Type Response Smoking Status Never smoker entered on: 06/25/16 Sex
--- OUTSIDE RECORDS SUMMARY | 2023-06-15 11:55 | XMS_ITS | Continuity of Care Document ---
Author Name Unknown Organization [facility] lt Address [address] [place] [address]- Care Team Providers Care Gut Dropper Name Role Phone Brandon Freeman MD Primary Care Physician [phone] [facility]): 08/12/22 - 09/11/22 [facility] Adult [address] [place] [address]- Allergies, Adverse Reactions, Alerts Substance Reaction Severity Status azithromycin Active macrolide antibiotics Active ketolides Active Dust Active Immunizations Given and Recorded Vaccine Date Status Refusal Reason [id number] 12y+ bivalent booster vax 07/22/22 Recorded tetanus-diphtheria [...] clinic 5Admin Note: FLU CLINIC 6Admin Note: [facility] VIS [id number] given 7Admin Note: given in clinic 8Result Comment: Pt. already received on 08/07/2015 Medications bacitracin zinc 500 units/g topical ointment See Instructions, APPLY SMALL AMOUNT TOPICALLY TO SUPERFICIAL WOUNDS 4 TIMES A DAY NEEDED AN ANTIBACTERIAL / CALL MD IF USING FOR MORE THAN 7 DAYS, # 1 Gm, 11 Refills, Acute, [facility], 7, APPLY SMALL AMOUNT TOPICALLY TO [...] FOR CONSTIPATION, # 7 supp, 11 Refills, [facility], 175.2, cm, 07/20/21 10:29:00 EDT, Height [...] 30 capsule, 11 Refills, Maintenance, 07/29/2211:36:00 EDT, [facility], 30, 1 capsule By Mouth Daily,Instr:FOR [...] 19 GM, # 133 mL, 11 Refills, [facility], 5, ONE ENEMA PERRECTUM DAY 5 WITHOUT BOWEL MOVEMENT / IF NO RESULTS... Start Date: 03/16/22 Status: Ordered Ditropan XL 10 mg oral tablet, extended release 10, mg, 1, tablet, By Mouth, Daily, 0, 01/03/07 9:24:09, Print ANNE-MARIE Number, [phone], Constant Indicator Start Date: 01/03/07 Status: Ordered DOK 100 mg oral tablet See Instructions, TAKE 1 TABLET BY MOUTH TWICE DAILY (STOOL SOFTENER EQUIVALENT), # 60 tablet, 5 Refills, Maintenance, 08/12/22 9:24:00 EDT, [facility], 175.2, cm, 07/27/22 11:37:00 EDT, Height [...] Instructions Replace Required Details, Route toPharmacy Electronically, [facility], 175.2, cm... Start Date: 04/09/20 Status: Ordered fit to pt fit to pt, See Instructions, # 1 units, Refills 0, Tot. Refills 0, Maintenance, rigid cervical collar. Fit to pt., 06/21/18 15:59:47 EDT, Compound Start Date: 06/21/18 Status: Ordered Flomax 0.4 mg oral capsule 0.4, mg, 1, capsule, By Mouth, Daily, 0, 0, 01/03/07 9:24:42, Print ANNE-MARIE Number, [id number], Constant Indicator Start Date: 01/03/07 Status: Ordered hydrochlorothiazide 25 mg oral tablet See Instructions, TAKE 1 TAB BY MOUTH DAILY IN AM FOR HTN/MONITOR BP/IF SYSTOLIC MORE THAN 160, DIASTOLIC MORE THAN 100, SYSTOLIC LESS THAN 90, OR DIASTOLIC LESS THAN 50 CALLOR, # 30 tablet, Refills 2, Instructions Replace [...] Gm, 11 Refills, Maintenance, 12/11/19 11:11:00 EST, [facility], APPLY TO EXTERNAL HEMMORRHOIDS TWICE DAILY PRN PER DR FREEMAN, 175.2, cm, 10/12/19 8:18:00 EST, Height,... Start Date: 12/11/19 Status: Ordered ibuprofen 400 mg oral tablet 400 mg, 1, tablet, By Mouth, 3 times a day, PRN, # 30 tablet, Refills 1, Tot. Refills 1, Maintenance, as needed for pain, 12/25/18 11:23:03 EST, Route to Pharmacy Electronically, [id number], [facility] Start Date: 12/25/18 Status: Ordered lactulose 10 gm/15 ml oral syrup = 20 Gm, By Mouth, Daily at bedtime, # 946 mL, 11 Refills, Maintenance, 09/01/22 7:18:00 EDT, [facility], 31, 20 Gm By Mouth Daily [...] FOR ALLERGIC RHINITIS, Route to Pharmacy Electronically, [facility], 175.2, cm, 07/20/21 10:29:00 EDT, Height Start Date: 11/10/21 Status: Ordered Milk of Magnesia 8% oral suspension 30 mL, By Mouth, Daily at bedtime, FOR CONSTIPATION CGWE=1523 MG., # 900 mL, 5 Refills, Maintenance, 07/01/22 13:24:00 EDT, [facility], 175.2, cm, 04/15/22 9:44:00 EDT, Height Start Date: 07/01/22 Status: Ordered omeprazole 40 mg oral enteric coated capsule See Instructions, TAKE 1 CAPSULE BY MOUTH DAILY FOR GERD IN AM, # 30 capsule, 2 Refills, Maintenance, 08/05/22 12:48:00 EDT, [facility], 175.2, cm, 07/27/22 11:37:00 EDT, Height Start Date: 08/05/22 Status: Ordered polyethylene glycol 3350 oral powder for reconstitution See Instructions, MIX 17GM WITH 8 OUNCES OF WATER OR JUICE DAILY AT 5PM FOR CONSTIPATION (POLYETHYLENE GLYCOL), # 510 Gm, 11 Refills, [facility], 30, MIX 17GM WITH 8 OUNCES OF WATER OR JUICE DAILY AT 5PM FOR CONSTIPATION (POLYETHYLENE GLYCOL), 17... Start Date: 09/22/21 Status: Ordered pravastatin 40 mg oral tablet See Instructions, TAKE 1 TABLET BY MOUTH DAILY IN THE PM FOR HYPERLIPIDEMIA, # 30 tablet, 5 Refills, [facility], 175.2, cm, 04/15/22 9:44:00 EDT, Height Start Date: 05/25/22 Status: Ordered Robafen 100 mg/5 ml oral liquid 10 mL, By Mouth, 4 times a day, PRN NEEDED FOR COUGH/NOTIFY MD IF NO RELIEF AFTER 48 HRS / DOSE =, GUAIFENESIN (TUSSIN MUCUS-CONGEST 100MG/5ML., # 240 mL, 4 Refills, Acute 11/25/22 12:02:00 EST, 11/25/21 12:02:00 EST, [facility], 175.2, cm, 09... Start Date: 11/25/21 Stop Date: 11/25/22 Status: Ordered Shingrix intramuscular injection 0.5 mL, Intramuscular, Once, # 0.5 mL, 1 Refills, Soft Stop, 06/28/18 10:24:17 EDT Start Date: 06/28/18 Status: Ordered terbinafine 1% topical cream 1 application, Topically, 2 times a day, # 30 Gm, 1 Refills, Maintenance, 05/11/22 14:45:00 EDT, Cream, [facility], Partial fill upon patient request if [...] VITAMIN SUPPLEMENT, # 30 tablet, 5 Refills, [facility], 30, TAKE 1 TABLET BY MOUTH [...] Confirmed Active UI (urinary incontinence) Confirmed Active 70523; repeat 2020 10198; repeat 2017 3egd 2011 barretts, repeat 2014 4egd 2009 positive barretts repeat 2011 5C2 6colonoscopy 2006 nl repeat 2016 7repeat 2024 [id number] Social History Social History Type Response Smoking Status Never smoker entered on: 06/25/16 Sex Patient Care team information Care Team Personnel Name: Hannah Roque RN Position: S RN Member Role: Primary Care Nurse Name: Reggie Godinez RN Position: S RN Member Role: Primary Care Nurse Name: Christiane Cedillo RN Position: S RN Member Role: Primary Care Nurse Name: Brandon Freeman MD Position: [facility] Primary Care Physician Member Role: PCP Address: Address: [address] [place] [address]- [place] Name: Janeen Hoskins RN Position: [facility] RN Member Role: Primary Care Nurse Name: Cydney Mckinney RN Position: [facility] RN Member Role: Primary Care Nurse Name: Frantz Mi III, RN Position: [facility] RN Member Role: Primary Care Nurse Name: Cate Martel NP Position: Reference Physician Member Role: Primary Care Nurse Address: Address: [address] [place] [address]- Name: Fay Morton RN Position: [facility] RN Member Role: Primary Care Nurse Name: Massiel Lu RN Position: [facility] RN Member Role: Primary Care Nurse Name: Lurdes Mujica RN Position: [facility] RN Member Role: Primary Care Nurse Name: Brandie Horvath RN Position: [facility] Senior Marketing Specialist Member Role: Primary Care Nurse Name: Claribel Howe RN Position: [facility] RN Member Role: Primary Care Nurse Care Team Related Persons Name: JOHAN PERKINS Name: DAWOOD DE LOS SANTOS Address: home [address] [place] [id number] Name: JENNIFER JUAREZ Address: home [address] [place] [id number]
--- OUTSIDE RECORDS SUMMARY | 2023-06-15 11:55 | XMS_ITS | Continuity of Care Document ---
Author Name Unknown Organization [facility] Chace lt Address [address] [place] [address]- Care Team Providers Care Certified Physician Assistant Name Role Phone Brandon Freeman MD Primary Care Physician [facility]20 - 07/11/20 [facility] Adult [address] [place] [address]- [facility] Allergies, Adverse Reactions, Alerts Substance Reaction Severity [...] GIVEN 3Admin Note: FLU CLINIC 4Admin Note: [facility] VIS [id number] given 5Admin Note: given by lisy short [...] Replace Required Details, Route to Pharmacy Electronically, [facility] Start Date: 11/05/19 Status: Ordered Ditropan XL 10 mg oral tablet, extended release 10, mg, 1, tablet, By Mouth, Daily, 0, 01/03/07 9:24:09, Print ANNE-MARIE Number, [id number], Constant Indicator Start Date: 01/03/07 Status: Ordered DOK 100 mg oral tablet See Instructions, TAKE 1 TABLET BY MOUTH TWICE DAILY (STOOL SOFTENER EQUIVALENT), # 60 tablet, 5 Refills, Soft Stop, 05/08/20 13:17:00 EDT, [facility], 175.2, cm, 10/12/19 8:18:00 EST, Height, [...] Instructions Replace Required Details, Route toPharmacy Electronically, [facility], 175.2, cm... Start Date: 04/09/20 Status: [...] 0, 0, 01/03/07 9:24:42, Print ANNE-MARIE Number, [id number], Constant Indicator Start Date: 01/03/07 Status: Ordered [...] 12/25/18 11:23:03 EST, Route to Pharmacy Electronically, [id number], [facility] Start Date: 12/25/18 Status: Ordered lactulose 10 gm/15 ml oral syrup See Instructions, # 946 mL, Refills 9 Tot. Refills 9, TWO TABLESPOONFULS BY MOUTH DAILY AT BEDTIME FOR CONSTIPATION / GIVE WITH LIQUIDS JUICE/WATER / 2 TBSP = 30 ML DOSE = 20 GRAMS, [facility] Start Date: 08/10/19 Status: Ordered loratadine 10 mg oral tablet 10 mg, 1, tablet, By Mouth, Daily, PER DR FREEMAN, # 30 tablet, Refills 11, Tot. Refills 11, 02/19/20 9:46:00 EDT, Route to Pharmacy Electronically, [facility], 175.2, cm, 10/12/19 8:18:00 EST, Height, 73.2, kg, 03/05/18 17:34:00 EDT, Dry Weight Start Date: 02/19/20 Status: Ordered Milk of Magnesia 8% oral suspension 30 mL = 2.4 Gm, By Mouth, Daily at bedtime, # 900 mL, 5 Refills, Maintenance, 02/20/20 12:44:00 EDT, [facility], 175.2, cm, 10/12/19 8:18:00 EST, Height, 73.2, kg, 03/05/18 17:34:00 EDT, Dry Weight Start Date: 02/20/20 Stop Date: 08/18/20 Status: Ordered omeprazole 20 mg oral enteric coated capsule 1 capsule = 20 mg, By Mouth, 2 times a day, # 30 capsule, 11 Refills, Soft Stop, 05/07/20 17:03:00 EDT, [facility], 175.2, cm, 10/12/19 8:18:00 EST, Height, [...] Raynaud's phenomenon(Confirmed) Active UI (urinary incontinence)(Confirmed) Active 39203; repeat 2020; repeat 2017 3egd 2012 barretts, repeat 2014 4egd 2010 positive barretts repeat 2012 5C2 6colonoscopy 2007 nl repeat 2016 7repeat 2024 [id number] Social History Social History Type Response Smoking Status Never smoker entered on: 06/25/16 Sex
--- OUTSIDE RECORDS SUMMARY | 2023-06-15 11:55 | XMS_ITS | Continuity of Care Document ---
Author Name Unknown Organization [facility] Address [address] [place] [address]- Care Team Providers Care Traffic Control Specialist Name Role Phone Brandon Freeman MD Primary Care Physician [facility]): 11[facility]09[facility]22 - 12/09/22 [facility] Adult [address] [place] [address]- Allergies, Adverse Reactions, Alerts Substance Reaction Severity Status azithromycin Active macrolide antibiotics Active Dust Active ketolides Active Immunizations Given and Recorded Vaccine Date Status Refusal Reason [id number] 12y+ bivalent booster vax 07/22/22 Recorded tetanus-diphtheria toxoids (Td) 03/17/22 Given tetanus-diphtheria toxoids (Td) 04/08/02 Given tetanus/diphtheria/pertussis, acel(Tdap) 09/30/21 Recorded influenza virus vaccine, inactivated 08/17/21 Ayad rded influenza virus vaccine, inactivated 09/19/19 Give n influenza virus vaccine, inactivated 08/28/18 Aayd rded influenza virus vaccine, inactivated 08/01/17 Ayad [...] clinic 5Admin Note: FLU CLINIC 6Admin Note: [facility] [facility] VIS [phone] given 7Admin Note: given in clinic 8Result Comment: Pt. already received on 08/07/2015 Medications acetaminophen 325 mg oral tablet 2, tablet, By Mouth, Every 6 hours, PRN, UACL=887WG., # 60 tablet, Refills 0, Maintenance, NEEDED FOR FEVER>100.5 OR PAIN SHOWN BY FACIAL GRIMACE NOTIFY MD IF USED >, 11/12/22 9:30:00 EST, Route to Pharmacy Electronically, [facility], 175.2, c... Start Date: 11/12/22 Stop Date: 11/15/22 Status: Ordered bacitracin zinc 500 units/g topical ointment See Instructions, APPLY SMALL AMOUNT TOPICALLY TO SUPERFICIAL WOUNDS 4 TIMES A DAY NEEDED AN ANTIBACTERIAL / CALL MD IF USING FOR MORE THAN 7 DAYS, # 28 Gm, 11 Refills, Maintenance, 11/09/22 15:57:00 EST, [facility], 7, APPLY SMALL AMOUNT T... Start [...] FOR CONSTIPATION, # 7 supp, 11 Refills, [facility], 175.2, cm, 07/20/21 10:29:00 EDT, Height [...] 30 capsule, 11 Refills, Maintenance, 07/29/2211:36:00 EDT, [facility], 30, 1 capsule By Mouth Daily,Instr:FOR [...] 19 GM, # 133 mL, 11 Refills, [facility], 5, ONE ENEMA PERRECTUM DAY 5 WITHOUT BOWEL MOVEMENT / IF NO RESULTS... Start Date: 03/16/22 Status: Ordered Ditropan XL 10 mg oral tablet, extended release 10, mg, 1, tablet, By Mouth, Daily, 0, 01/03/07 9:24:09, Print ANNE-MARIE Number, [phone], Constant Indicator Start Date: 01/03/07 Status: Ordered DOK 100 mg oral tablet See Instructions, TAKE 1 TABLET BY MOUTH TWICE DAILY (STOOL SOFTENER EQUIVALENT), # 60 tablet, 5 Refills, Maintenance, 08/12/22 9:24:00 EDT, [facility], 175.2, cm, 07/27/22 11:37:00 EDT, Height [...] Instructions Replace Required Details, Route toPharmacy Electronically, [facility], 175.2, cm... Start Date: 04/09/20 Status: Ordered fit to pt fit to pt, See Instructions, # 1 units, Refills 0, Tot. Refills 0, Maintenance, rigid cervical collar. Fit to pt., 06/21/18 15:59:47 EDT, Compound Start Date: 06/21/18 Status: Ordered Flomax 0.4 mg oral capsule 0.4, mg, 1, capsule, By Mouth, Daily, 0, 0, 01/03/07 9:24:42, Print ANNE-MARIE Number, [id number], Constant Indicator Start Date: 01/03/07 Status: Ordered [...] Gm, 11 Refills, Maintenance, 12/11/19 11:11:00 EST, [facility], APPLY TO EXTERNAL HEMMORRHOIDS TWICE DAILY PRN PER DR FREEMAN, 175.2, cm, 10/12/19 8:18:00 EST, Height,... Start Date: 12/11/19 Status: Ordered ibuprofen 400 mg oral tablet 400 mg, 1, tablet, By Mouth, 3 times a day, PRN, # 30 tablet, Refills 1, Tot. Refills 1, Maintenance, as needed for pain, 12/25/18 11:23:03 EST, Route to Pharmacy Electronically, [id number], [facility] Start Date: 12/25/18 Status: Ordered lactulose 10 gm/15 ml oral syrup = 20 Gm, By Mouth, Daily at bedtime, # 946 mL, 11 Refills, Maintenance, 09/01/22 7:18:00 EDT, [facility], 31, 20 Gm By Mouth Daily [...] FOR ALLERGIC RHINITIS, Route to Pharmacy Electronically, [facility], 175.2, cm, 07/20/21 10:29:00 EDT, Height Start Date: 11/10/21 Status: Ordered Milk of Magnesia 8% oral suspension 30 mL, By Mouth, Daily at bedtime, FOR CONSTIPATION DAHY=8984 MG., # 900 mL, 5 Refills, Maintenance, 07/01/22 13:24:00 EDT, [facility], 175.2, cm, 04/15/22 9:44:00 EDT, Height Start Date: 07/01/22 Status: Ordered omeprazole 40 mg oral enteric coated capsule See Instructions, TAKE 1 CAPSULE BY MOUTH DAILY FOR GERD IN AM, # 30 capsule, 2 Refills, Maintenance, 11/04/22 10:43:00 EST, [facility], 175.2, cm, 07/27/22 11:37:00 EDT, Height Start Date: 11/04/22 Status: Ordered polyethylene glycol 3350 oral powder for reconstitution See Instructions, MIX 17GM WITH 8 OUNCES OF WATER OR JUICE DAILY AT 5PM FOR CONSTIPATION (POLYETHYLENE GLYCOL), # 510 Gm, 11 Refills, Physician Stop 10/07/23 11:17:00 EST, 10/07/22 11:17:00 EST, [facility], 30, MIX 17GM WITH 8 OUNCES OF WATER OR... Start Date: 10/07/22 Stop Date: 10/07/23 Status: Ordered pravastatin 40 mg oral tablet See Instructions, TAKE 1 TABLET BY MOUTH DAILY IN THE PM FOR HYPERLIPIDEMIA, # 30 tablet, 5 Refills, Maintenance, 11/18/22 15:41:00 EST, [facility], 175.2, cm, 07/27/22 11:37:00 EDT, Height [...] 30 tablet, 5 Refills, 10/05/22 11:07:00 EST, [facility], 30, TAKE 1 TABLET BY MOUTH [...] Confirmed Active UI (urinary incontinence) Confirmed Active 48212; repeat 2020 70405; repeat 2018 3egd 2012 barretts, repeat 2014 4egd 2009 positive barretts repeat 2012 5C2 6colonoscopy 2006 nl repeat 2016 7repeat 2024 [id number] Social History Social History Type Response Smoking Status Never smoker entered on: 06/25/16 Sex Patient Care team information Care Team Personnel Name: Hannah Roque RN Position: S RN Member Role: Primary Care Nurse Name: Reggie Godinez RN Position: S RN Member Role: Primary Care Nurse Name: Christiane Cedillo RN Position: S RN Member Role: Primary Care Nurse Name: Brandon Freeman MD Position: [facility] Primary Care Physician Member Role: PCP Address: Address: [address] [place] [address]- [place] Name: Janeen Hoskins RN Position: [facility] RN Member Role: Primary Care Nurse Name: Cydney Mckinney RN Position: [facility] RN Member Role: Primary Care Nurse Name: Frantz Mi III, RN Position: [facility] RN Member Role: Primary Care Nurse Name: Cate Martel NP Position: Reference Physician Member Role: Primary Care Nurse Address: Address: [address] [place] [id number]- [place] Name: Fay Morton RN Position: [facility] RN Member Role: Primary Care Nurse Name: Massiel Lu RN Position: [facility] RN Member Role: Primary Care Nurse Name: Lurdes Mujica RN Position: [facility] RN Member Role: Primary Care Nurse Name: Brandie Horvath RN Position: [facility] Director Asset Member Role: Primary Care Nurse Name: Claribel Howe RN Position: [facility] RN Member Role: Primary Care Nurse Care Team Related Persons Name: JOHAN PERKINS Name: DAWOOD DE LOS SANTOS Address: home [address] [place] [id number] Name: JENNIFER JUAREZ Address: [address] [place] [address]
--- OUTSIDE RECORDS SUMMARY | 2023-06-15 11:55 | XMS_ITS | Continuity of Care Document ---
Author Name Unknown Organization [facility] Address [address] [place] [address]- Care Team Providers Care Lead Teacher Name Role Phone Brandon Freeman MD Primary Care Physician [phone] [facility]): 11/25/[facility] - 12/25/20 [facility] [address] [place] [address]- Allergies, Adverse Reactions, Alerts Substance Reaction Severity [...] GIVEN 5Admin Note: [facility]U CLINIC 6Admin Note: [employer] [facility] VIS [phone] given 7Admin Note: given in clinic 8Result Comment: Pt. already received on 08/07/2015 Medications bacitracin zinc 500 units/g topical ointment See Instructions, APPLY SMALL AMOUNT TOPICALLY TO SUPERFICIAL WOUNDS 4 TIMES A DAY NEEDED AN ANTIBACTERIAL / CALL MD IF USING FOR MORE THAN 7 DAYS, # 1 Gm, 11 Refills, Acute, [facility], 7, APPLY SMALL AMOUNT TOPICALLY TO [...] CONSTIPATION, # 7 supp, 11 Refills, Acute, [facility], 175.2, cm, 10/12/19 8:18:00 EST, Height [...] Acute 07/27/21 9:44:00 EDT, 08/01/20 9:44:00 EDT, [facility], 1 capsule By Mouth Daily,x90 days,Instr:FOR [...] Replace Required Details, Route to Pharmacy Electronically, [facility] Start Date: 12/09/20 Status: Ordered Ditropan XL 10 mg oral tablet, extended release 10, mg, 1, tablet, By Mouth, Daily, 0, 01/03/07 9:24:09, Print ANNE-MARIE Number, [id number], Constant Indicator Start Date: 01/03/07 Status: Ordered DOK 100 mg oral tablet See Instructions, TAKE 1 TABLET BY MOUTH TWICE DAILY (STOOL SOFTENER EQUIVALENT), # 60 tablet, 5 Refills, Soft Stop, 11/06/20 9:22:00 EST, [facility], 175.2, cm, 07/09/20 10:27:00 EDT, Height [...] Instructions Replace Required Details, Route toPharmacy Electronically, [facility], 175.2, cm... Start Date: 04/09/20 Status: [...] 0, 0, 01/03/07 9:24:42, Print ANNE-MARIE Number, [id number], Constant Indicator Start Date: 01/03/07 Status: Ordered [...] 12/25/18 11:23:03 EST, Route to Pharmacy Electronically, [id number], [facility] Start Date: 12/25/18 Status: Ordered lactulose 10 gm/15 ml oral syrup See Instructions, TWO TABLESPOONFULS BY MOUTH DAILY AT BEDTIME FOR CONSTIPATION / GIVE WITH LIQUIDSJUICE/WATER / 2 TBSP = 30 ML DOSE = 20 GRAMS, # 946 mL, 11 Refills, Soft Stop, 08/15/20 7:20:00 EDT, [facility], TWO TABLESPOONFULS BY MOUTH DAILY... Start Date: 08/15/20 Status: Ordered loratadine 10 mg oral tablet 10 mg, 1, tablet, By Mouth, Daily, PER DR FREEMAN, # 30 tablet, Refills 11, Tot. Refills 11, 02/19/20 9:46:00 EDT, Route to Pharmacy Electronically, [facility], 175.2, cm, 10/12/19 8:18:00 EST, Height, 73.2, kg, 03/05/18 17:34:00 EDT, Dry Weight Start Date: 02/19/20 Status: Ordered Milk of Magnesia 8% oral suspension 30 mL = 2.4 Gm, By Mouth, Daily at bedtime, # 900 mL, 5 Refills, Maintenance, 09/02/20 12:20:00 EST, [facility], 175.2, cm, 07/09/20 10:27:00 EDT, Height, Dry Weight Start Date: 09/02/20 Stop Date: 03/01/21 Status: Ordered omeprazole 40 mg oral enteric coated capsule 1 capsule = 40 mg, By Mouth, Daily, # 30 capsule, 5 Refills, Maintenance, 12/04/20 6:53:00 EST, EC Capsule, [facility], Partial fill upon patient request if the prescription is for a schedule IIopioid drug., 175.2, cm, 11/28/20 7:21:00 EST, Height Start Date: 12/04/20 Status: Ordered polyethylene glycol 3350 oral powder for reconstitution = 17 Gm, By Mouth, Daily, dissolve in water or juice, # 527 Gm, 11 Refills, Maintenance, 08/26/20 9:54:00 EDT, [facility], 17 Gm By Mouth Daily,Instr:dissolve in water or juice, 175.2, cm, 07/09/20 10:27:00 EDT, Height Start Date: 08/26/20 Status: Ordered pravastatin 40 mg oral tablet 1 tablet = 40 mg, By Mouth, Daily, Pt needs labs, # 30 tablet, 2 Refills, Soft Stop, 11/17/20 12:45:00 EST, [facility], 175.2, cm, 07/09/20 10:27:00 EDT, Height Start Date: 11/17/20 Status: Ordered Robafen 100 mg/5 ml oral liquid 10 mL, By Mouth, 4 times a day, PRN NEEDED FOR COUGH/NOTIFY MD IF NO RELIEF AFTER 48 HRS / DOSE =, GUAIFENESIN (TUSSIN MUCUS-CONGEST 100MG/5ML., # 240 mL, 4 Refills, Acute, 10/28/20 6:38:00 EST, [facility], 175.2, cm, 07/09/20 10:27:00 EDT, He... [...] 08/07/20 12:37:00 EDT, Route to Pharmacy Electronically, [facility], 175.2, cm, 07/09/20 10:27:00 EDT, Height, [...] Raynaud's phenomenon(Confirmed) Active UI (urinary incontinence)(Confirmed) Active 82337; repeat 2020; repeat 2017 3egd 2012 barretts, repeat 2014 4egd 2010 positive barretts repeat 2012 5C2 6colonoscopy 2007 nl repeat 2016 7repeat 2024 [id number] Social History Social History Type Response Smoking Status Never smoker entered on: 06/25/16 Sex
--- OUTSIDE RECORDS SUMMARY | 2023-06-15 11:55 | XMS_ITS | Continuity of Care Document ---
Author Name Unknown Organization [facility] Address [address] [place] [address]- Care Team Providers Care Business Services Administrator Name Role Phone Brandon Freeman MD Primary Care Physician [facility]): 12[facility]20 - 01/02/21 [facility] [address] [place] [address]- Allergies, Adverse Reactions, Alerts Substance Reaction Severity [...] GIVEN 5Admin Note: FLU CLINIC 6Admin Note: [employer] [facility] VIS [id number] given 7Admin Note: given in clinic 8Result Comment: Pt. already received on 08/07/2015 Medications bacitracin zinc 500 units/g topical ointment See Instructions, APPLY SMALL AMOUNT TOPICALLY TO SUPERFICIAL WOUNDS 4 TIMES A DAY NEEDED AN ANTIBACTERIAL / CALL MD IF USING FOR MORE THAN 7 DAYS, # 1 Gm, 11 Refills, Acute, [facility], 7, APPLY SMALL AMOUNT TOPICALLY TO [...] CONSTIPATION, # 7 supp, 11 Refills, Acute, [facility], 175.2, cm, 10/12/19 8:18:00 EST, Height [...] Acute 07/27/21 9:44:00 EDT, 08/01/20 9:44:00 EDT, [facility], 1 capsule By Mouth Daily,x90 days,Instr:FOR [...] Replace Required Details, Route to Pharmacy Electronically, [facility] Start Date: 12/09/20 Status: Ordered Ditropan XL 10 mg oral tablet, extended release 10, mg, 1, tablet, By Mouth, Daily, 0, 01/03/07 9:24:09, Print ANNE-MARIE Number, [id number], Constant Indicator Start Date: 01/03/07 Status: Ordered DOK 100 mg oral tablet See Instructions, TAKE 1 TABLET BY MOUTH TWICE DAILY (STOOL SOFTENER EQUIVALENT), # 60 tablet, 5 Refills, Soft Stop, 11/06/20 9:22:00 EST, [facility], 175.2, cm, 07/09/20 10:27:00 EDT, Height [...] Instructions Replace Required Details, Route toPharmacy Electronically, [facility], 175.2, cm... Start Date: 04/09/20 Status: [...] 0, 0, 01/03/07 9:24:42, Print ANNE-MARIE Number, [id number], Constant Indicator Start Date: 01/03/07 Status: Ordered [...] 12/25/18 11:23:03 EST, Route to Pharmacy Electronically, [id number], [facility] Start Date: 12/25/18 Status: Ordered lactulose 10 gm/15 ml oral syrup See Instructions, TWO TABLESPOONFULS BY MOUTH DAILY AT BEDTIME FOR CONSTIPATION / GIVE WITH LIQUIDSJUICE/WATER / 2 TBSP = 30 ML DOSE = 20 GRAMS, # 946 mL, 11 Refills, Soft Stop, 08/15/20 7:20:00 EDT, [facility], TWO TABLESPOONFULS BY MOUTH DAILY... Start Date: 08/15/20 Status: Ordered loratadine 10 mg oral tablet 10 mg, 1, tablet, By Mouth, Daily, PER DR FREEMAN, # 30 tablet, Refills 11, Tot. Refills 11, 02/19/20 9:46:00 EDT, Route to Pharmacy Electronically, [facility], 175.2, cm, 10/12/19 8:18:00 EST, Height, 73.2, kg, 03/05/18 17:34:00 EDT, Dry Weight Start Date: 02/19/20 Status: Ordered Milk of Magnesia 8% oral suspension 30 mL = 2.4 Gm, By Mouth, Daily at bedtime, # 900 mL, 5 Refills, Maintenance, 09/02/20 12:20:00 EST, [facility], 175.2, cm, 07/09/20 10:27:00 EDT, Height, Dry Weight Start Date: 09/02/20 Stop Date: 03/01/21 Status: Ordered omeprazole 40 mg oral enteric coated capsule 1 capsule = 40 mg, By Mouth, Daily, # 30 capsule, 5 Refills, Maintenance, 12/04/20 6:53:00 EST, EC Capsule, [facility], Partial fill upon patient request if the prescription is for a schedule IIopioid drug., 175.2, cm, 11/28/20 7:21:00 EST, Height Start Date: 12/04/20 Status: Ordered polyethylene glycol 3350 oral powder for reconstitution = 17 Gm, By Mouth, Daily, dissolve in water or juice, # 527 Gm, 11 Refills, Maintenance, 08/26/20 9:54:00 EDT, [facility], 17 Gm By Mouth Daily,Instr:dissolve in water or juice, 175.2, cm, 07/09/20 10:27:00 EDT, Height Start Date: 08/26/20 Status: Ordered pravastatin 40 mg oral tablet 1 tablet = 40 mg, By Mouth, Daily, Pt needs labs, # 30 tablet, 2 Refills, Soft Stop, 11/17/20 12:45:00 EST, [facility], 175.2, cm, 07/09/20 10:27:00 EDT, Height Start Date: 11/17/20 Status: Ordered Robafen 100 mg/5 ml oral liquid 10 mL, By Mouth, 4 times a day, PRN NEEDED FOR COUGH/NOTIFY MD IF NO RELIEF AFTER 48 HRS / DOSE =, GUAIFENESIN (TUSSIN MUCUS-CONGEST 100MG/5ML., # 240 mL, 4 Refills, Acute, 10/28/20 6:38:00 EST, [facility], 175.2, cm, 07/09/20 10:27:00 EDT, He... [...] 08/07/20 12:37:00 EDT, Route to Pharmacy Electronically, [facility], 175.2, cm, 07/09/20 10:27:00 EDT, Height, [...] Raynaud's phenomenon(Confirmed) Active UI (urinary incontinence)(Confirmed) Active 43164; repeat 2020; repeat 2017 3egd 2012 barretts, repeat 2014 4egd 2010 positive barretts repeat 2011 5C2 6colonoscopy 2007 nl repeat 2016 7repeat 2024 [id number] Social History Social History Type Response Smoking Status Never smoker entered on: 06/25/16 Sex
--- OUTSIDE RECORDS SUMMARY | 2023-06-15 11:55 | XMS_ITS | Continuity of Care Document ---
Author Name Unknown Organization [facility] Address [address] [place] [address]- Care Team Providers Care Pharmacy Grad Intern Name Role Phone [place], Brandon Chamorro Primary Care Physician [phone] [facility]): 05[facility]09[facility]23 - 06/08/23 [facility] [address] [place], [place] [address] Allergies, Adverse Reactions, Alerts Substance Reaction Severity Status azithromycin Active macrolide antibiotics Active Dust Active ketolides Active Immunizations Given and Recorded Vaccine Date Status Refusal Reason [id number] 12y+ bivalent booster vax 07/22/22 Recorded tetanus-diphtheria [...] clinic 5Admin Note: FLU CLINIC 6Admin Note: [employer] [facility] VIS [id number] given 7Admin Note: given in clinic 8Result Comment: Pt. already received on 08/07/2015 Medications acetaminophen 325 mg oral tablet 2, tablet, By Mouth, Every 6 hours, PRN, [id number]., # 60 tablet, Refills 0, Maintenance, NEEDED FOR FEVER>100.5 OR PAIN SHOWN BY FACIAL GRIMACE NOTIFY MD IF USED >, 11/12/22 9:30:00 EST, Route to Pharmacy Electronically, [facility], 175.2, c... Start Date: 11/12/22 Stop Date: 11/15/22 Status: Ordered bacitracin zinc 500 units/g topical ointment See Instructions, APPLY SMALL AMOUNT TOPICALLY TO SUPERFICIAL WOUNDS 4 TIMES A DAY NEEDED AN ANTIBACTERIAL / CALL MD IF USING FOR MORE THAN 7 DAYS, # 28 Gm, 11 Refills, Maintenance, 11/09/22 15:57:00 EST, [facility], 7, APPLY SMALL AMOUNT T... Start [...] supp, 11 Refills, Maintenance, 12/16/22 13:35:00 EST, [facility], 175.2, cm, 07/27/22 11:37:00 EDT, Height [...] 30 SEC... Start Date: 10/26/18 Status: Ordered [employer] [facility] oral capsule 1 capsule, By Mouth, Daily, FOR INTESTINAL HEALTH., # 30 capsule, 11 Refills, Maintenance, 07/29/2211:36:00 EDT, [facility], 30, 1 capsule By Mouth Daily,Instr:FOR [...] Stop 04/06/24 13:54:00 EDT, 04/05/23 13:54:00 EDT, [facility], 5, ONE... Start Date: 04/05/23 Stop Date: 04/06/24 Status: Ordered Ditropan XL 10 mg oral tablet, extended release 10, mg, 1, tablet, By Mouth, Daily, 0, 01/03/07 9:24:09, Print ANNE-MARIE Number, [id number], Constant Indicator Start Date: 01/03/07 Status: Ordered DOK 100 mg oral tablet See Instructions, TAKE 1 TABLET BY MOUTH TWICE DAILY (AM AND PM) (STOOL SOFTENER EQUIVALENT), # 60 tablet, 5 Refills, Maintenance, 02/02/23 15:38:00 EDT, [facility], 175.2, cm, 02/01/23 15:11:00EDT, Height Start [...] Instructions Replace Required Details, Route toPharmacy Electronically, [facility], 175.2, cm... Start Date: 04/09/20 Status: Ordered fit to pt fit to pt, See Instructions, # 1 units, Refills 0, Tot. Refills 0, Maintenance, rigid cervical collar. Fit to pt., 06/21/18 15:59:47 EDT, Compound Start Date: 06/21/18 Status: Ordered Flomax 0.4 mg oral capsule 0.4, mg, 1, capsule, By Mouth, Daily, 0, 0, 01/03/07 9:24:42, Print ANNE-MARIE Number, [id number], Constant Indicator Start Date: 01/03/07 Status: Ordered hydrochlorothiazide 25 mg oral tablet 1, tablet, By Mouth, Daily in AM, FOR HTN/MONITOR BP/IF SYSTOLIC MORE THAN 160, DIASTOLIC MORE [id number], SYSTOLIC LESS THAN 90, OR DIASTOLIC LESS THAN 50 CALLMD., # 90 tablet, Refills 1, Tot. Refills1, Maintenance, 03/15/23 14:21:00 EDT, [facility]... Start Date: 03/15/23 Status: Ordered [...] Gm, 11 Refills, Maintenance, 12/11/19 11:11:00 EST, [facility], APPLY TO EXTERNAL HEMMORRHOIDS TWICE DAILY PRN PER DR FREEMAN, 175.2, cm, 10/12/19 8:18:00 EST, Height,... Start Date: 12/11/19 Status: Ordered ibuprofen 400 mg oral tablet 400 mg, 1, tablet, By Mouth, 3 times a day, PRN, # 30 tablet, Refills 1, Tot. Refills 1, Maintenance, as needed for pain, 12/25/18 11:23:03 EST, Route to Pharmacy Electronically, [id number], [facility] Start Date: 12/25/18 Status: Ordered lactulose 10 gm/15 ml oral syrup = 20 Gm, By Mouth, Daily at bedtime, # 946 mL, 11 Refills, Maintenance, 09/01/22 7:18:00 EDT, [facility], 31, 20 Gm By Mouth Daily [...] 03/08/23 11:54:00 EDT, Route to Pharmacy Electronically, [facility], Partial fill u... Start Date: 03/08/23 Stop Date: 03/08/24 Status: Ordered loratadine 10 mg oral tablet 1, tablet, By Mouth, Daily, PRN, # 30 tablet, Refills 11, NEEDED FOR ALLERGY SYMPTOMS WATERY, ITCHY RED EYES, SNEEZING FOR ALLERGIC RHINITIS, Route to Pharmacy Electronically, [facility], 175.2, cm, 07/20/21 10:29:00 EDT, Height Start Date: 11/10/21 Status: Ordered Milk of Magnesia 8% oral suspension 30 mL, By Mouth, Daily at bedtime, FOR CONSTIPATION BUEG=1424 MG., # 900 mL, 5 Refills, Maintenance, 04/04/23 21:00:00 EDT, [facility], 175.2, cm, 02/01/23 15:11:00 EDT, Height Start Date: 04/04/23 Status: Ordered omeprazole 40 mg oral enteric coated capsule 1 capsule, By Mouth, Daily in AM, # 30 capsule, 5 Refills, Maintenance, 02/01/23 7:37:00 EDT, [facility], 175.2, cm, 07/27/22 11:37:00 EDT, Height Start Date: 02/01/23 Status: Ordered polyethylene glycol 3350 oral powder for reconstitution See Instructions, MIX 17GM WITH 8 OUNCES OF WATER OR JUICE DAILY AT 5PM FOR CONSTIPATION (POLYETHYLENE GLYCOL), # 510 Gm, 11 Refills, Physician Stop 10/07/23 11:17:00 EST, 10/07/22 11:17:00 EST, [facility], 30, MIX 17GM WITH 8 OUNCES OF WATER OR... Start Date: 10/07/22 Stop Date: 10/07/23 Status: Ordered pravastatin 40 mg oral tablet See Instructions, TAKE 1 TABLET BY MOUTH DAILY IN THE PM FOR HYPERLIPIDEMIA, # 30 tablet, 5 Refills, Maintenance, 05/19/23 0:31:00 EDT, [facility], 175.2, cm, 05/13/23 11:02:00 EDT, Height [...] 1 Refills, Maintenance, 05/11/22 14:45:00 EDT, Cream, [facility], Partial fill upon patient request if [...] tablet, 5 Refills, Maintenance, 04/04/23 21:00:00 EDT, [facility], 30, TAKE 1 TABLET BY MOUTH [...] Confirmed Active UI (urinary incontinence) Confirmed Active 72410; repeat 2020 76882; repeat 2018 3egd 2012 barretts, repeat 2014 4egd 2010 positive barretts repeat 2011 5C2 6colonoscopy 2006 nl repeat 2016 7repeat 2024 75077 Social History Social History Type Response Smoking Status Never smoker entered on: 06/25/16 Sex Patient Care team information Care Team Personnel Name: Hannah Roque RN Position: [facility] RN Member Role: Primary Care Nurse Name: Reggie Godinez RN Position: [facility] RN Member Role: Primary Care Nurse Name: Christiane Cedillo RN Position: [facility] RN Member Role: Primary Care Nurse Name: Brandon Freeman MD Position: [facility] Physician - Primary Care Member Role: PCP Address: Address: [address] [place] [id number]- Name: Janeen Hoskins RN Position: [facility] RN Member Role: Primary Care Nurse Name: Cydney Mckinney RN Position: [facility] RN Member Role: Primary Care Nurse Name: Frantz Mi III, RN Position: [facility] RN Member Role: Primary Care Nurse Name: Cate Martel NP Position: Reference Physician Member Role: Primary Care Nurse Address: Address: [address] [place] [address]- [place] Name: Fay Morton RN Position: [facility] RN Member Role: Primary Care Nurse Name: Massiel Lu RN Position: [facility] RN Member Role: Primary Care Nurse Name: Lurdes Mujica RN Position: [facility] RN Member Role: Primary Care Nurse Name: Brandie Horvath RN Position: [facility] Hospital Inside Sales Specialist Member Role: Primary Care Nurse Name: Claribel Howe RN Position: [facility] SN RN Member Role: Primary Care Nurse Care Team Related Persons Name: JOHAN PERKINS Name: DAWOOD DE LOS SANTOS Address: home [address] [place] [address] Name: JENNIFER JUAREZ Address: home [address] [place] [id number]
--- OUTSIDE RECORDS SUMMARY | 2023-06-15 11:55 | XMS_ITS | Continuity of Care Document ---
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 Name Role Phone Brandon Freeman MD Primary Care Physician [facility] - 04/22/22 [facility] [address] [place] [address]- Attending Physician: Brandon Freeman MD Allergies, Adverse [...] GIVEN 5Admin Note: FLU CLINIC 6Admin Note: [facility] VIS [id number] given 7Admin Note: given in clinic 8Result [...] FOR CONSTIPATION, # 7 supp, 11 Refills, [facility], 175.2, cm, 07/20/21 10:29:00 EDT, [...] INTESTINAL HEALTH., # 30 capsule, 11 Refills, [facility], 30, TAKE 1 CAPSULE BY MOUTH [...] 19 GM, # 133 mL, 11 Refills, [facility], 5, ONE ENEMA PERRECTUM DAY 5 WITHOUT BOWEL MOVEMENT / IF NO RESULTS... Start Date: 03/16/22 Status: Ordered Ditropan XL 10 mg oral tablet, extended release 10, mg, 1, tablet, By Mouth, Daily, 0, 01/03/07 9:24:09, Print ANNE-MARIE Number, [id number], Constant Indicator Start Date: 01/03/07 Status: Ordered DOK 100 mg oral tablet See Instructions, TAKE 1 TABLET BY MOUTH TWICE DAILY (STOOL SOFTENER EQUIVALENT), # 60 tablet, 5 Refills, [facility], 175.2, cm, 07/20/21 10:29:00 EDT, [...] Instructions Replace Required Details, Route toPharmacy Electronically, [facility], 175.2, cm... Start Date: 04/09/20 Status: Ordered fit to pt fit to pt, See Instructions, # 1 units, Refills 0, Tot. Refills 0, Maintenance, rigid cervical collar. Fit to pt., 06/21/18 15:59:47 EDT, Compound Start Date: 06/21/18 Status: Ordered Flomax 0.4 mg oral capsule 0.4, mg, 1, capsule, By Mouth, Daily, 0, 0, 01/03/07 9:24:42, Print ANNE-MARIE Number, [id number], Constant Indicator Start Date: 01/03/07 Status: Ordered [...] Gm, 11 Refills, Maintenance, 12/11/19 11:11:00 EST, [facility], APPLY TO EXTERNAL HEMMORRHOIDS TWICE DAILY PRN PER DR FREEMAN, 175.2, cm, 10/12/19 8:18:00 EST, Height,... Start Date: 12/11/19 Status: Ordered ibuprofen 400 mg oral tablet 400 mg, 1, tablet, By Mouth, 3 times a day, PRN, # 30 tablet, Refills 1, Tot. Refills 1, Maintenance, as needed for pain, 12/25/18 11:23:03 EST, Route to Pharmacy Electronically, [id number], [facility] Start Date: 12/25/18 Status: Ordered lactulose 10 gm/15 ml oral syrup = 20 Gm, By Mouth, Daily at bedtime, GIVE WITH., # 946 mL, 11 Refills, [facility], 31, TWO TABLESPOONFULS BY MOUTH DAILY [...] FOR ALLERGIC RHINITIS, Route to Pharmacy Electronically, [facility], 175.2, cm, 07/20/21 10:29:00 EDT, Height Start Date: 11/10/21 Status: Ordered Milk of Magnesia 8% oral suspension 30 mL, By Mouth, Daily at bedtime, FOR CONSTIPATION RYWH=8231 MG., # 900 mL, 5 Refills, [facility], 175.2, cm, 07/20/21 10:29:00 EDT, Height Start Date: 11/24/21 Status: Ordered omeprazole 40 mg oral enteric coated capsule See Instructions, TAKE 1 CAPSULE BY MOUTH DAILY FOR GERD IN AM, # 30 capsule, 2 Refills, [facility], 175.2, cm, 07/20/21 10:29:00 EDT, Height Start Date: 01/27/22 Status: Ordered polyethylene glycol 3350 oral powder for reconstitution See Instructions, MIX 17GM WITH 8 OUNCES OF WATER OR JUICE DAILY AT 5PM FOR CONSTIPATION (POLYETHYLENE GLYCOL), # 510 Gm, 11 Refills, [facility], 30, MIX 17GM WITH 8 OUNCES OF WATER OR JUICE DAILY AT 5PM FOR CONSTIPATION (POLYETHYLENE GLYCOL), 17... Start Date: 09/22/21 Status: Ordered pravastatin 40 mg oral tablet See Instructions, TAKE 1 TABLET BY MOUTH DAILY IN THE PM FOR HYPERLIPIDEMIA, # 30 tablet, 5 Refills, [facility], 175.2, cm, 07/20/21 10:29:00 EDT, Height Start Date: 11/09/21 Status: Ordered Robafen 100 mg/5 ml oral liquid 10 mL, By Mouth, 4 times a day, PRN NEEDED FOR COUGH/NOTIFY MD IF NO RELIEF AFTER 48 HRS / DOSE =, GUAIFENESIN (TUSSIN MUCUS-CONGEST 100MG/5ML., # 240 mL, 4 Refills, Acute 11/25/22 12:02:00 EST, 11/25/21 12:02:00 EST, [facility], 175.2, cm, 09... Start Date: 11/25/21 Stop Date: 11/25/22 Status: Ordered Shingrix intramuscular injection 0.5 mL, Intramuscular, Once, # 0.5 mL, 1 Refills, Soft Stop, 06/28/18 10:24:17 EDT Start Date: 06/28/18 Status: Ordered terbinafine 1% topical cream 1 application, Topically, 2 times a day, # 30 Gm, 0 Refills, Maintenance, 04/06/22 16:14:00 EDT, Cream, [facility], Partial fill upon patient request if [...] Raynaud's phenomenon(Confirmed) Active UI (urinary incontinence)(Confirmed) Active 55052; repeat 2020; repeat 2017 3egd 2012 barretts, repeat 2014 4egd 2010 positive barretts repeat 2011 5C2 6colonoscopy 2006 nl repeat 2016 7repeat 2024 05129 Vital Signs Most recent to oldest [Reference Range]: 1 Height 175.2 cm (04/15/22 9:44 AM) Weight 80.0 kg (04/15/22 9:44 AM) Body Mass Index [18.5-24.99] 26.06 *H* (04/15/22 9:44 AM) Blood Pressure [90-138/55-84 mm Hg] 110/ 70mm Hg (04/15/22 9:44 AM) Mode of Delivery (Oxygen) Room air (04/15/22 9:44 AM) Blood pressure sites Arm, left (04/15/22 9:44 AM) Weight Obtained Via Standing scale (04/15/22 9:44 AM) Social History Social History Type Response Smoking Status Never smoker entered on: 06/25/16 Sex
--- OUTSIDE RECORDS SUMMARY | 2023-06-15 11:55 | XMS_ITS | Continuity of Care Document ---
Author Name Unknown Organization [facility] Chace lt Address [address] [place] [address]- Care Team Providers Care Philosophy Specialist Name Role Phone Brandon Freeman MD Primary Care Physician [facility]22 - 11/06/22 [facility] Adult [address] [place] [address]- Allergies, Adverse Reactions, Alerts Substance Reaction Severity Status azithromycin Active macrolide antibiotics Active ketolides Active Dust Active Immunizations Given and Recorded Vaccine Date Status Refusal Reason [id number] 12y+ bivalent booster vax 07/22/22 Recorded tetanus-diphtheria [...] clinic 5Admin Note: [facility] 6Admin Note: [facility] VIS [id number] given 7Admin Note: given in clinic 8Result Comment: Pt. already received on 08/07/2015 Medications bacitracin zinc 500 units/g topical ointment See Instructions, APPLY SMALL AMOUNT TOPICALLY TO SUPERFICIAL WOUNDS 4 TIMES A DAY NEEDED AN ANTIBACTERIAL / CALL MD IF USING FOR MORE THAN 7 DAYS, # 1 Gm, 11 Refills, Acute, [facility], 7, APPLY SMALL AMOUNT TOPICALLY TO [...] FOR CONSTIPATION, # 7 supp, 11 Refills, [facility], 175.2, cm, 07/20/21 10:29:00 EDT, Height [...] 30 capsule, 11 Refills, Maintenance, 07/29/2211:36:00 EDT, [facility], 30, 1 capsule By Mouth Daily,Instr:FOR [...] 19 GM, # 133 mL, 11 Refills, [facility], 5, ONE ENEMA PERRECTUM DAY 5 WITHOUT BOWEL MOVEMENT / IF NO RESULTS... Start Date: 03/16/22 Status: Ordered Ditropan XL 10 mg oral tablet, extended release 10, mg, 1, tablet, By Mouth, Daily, 0, 01/03/07 9:24:09, Print ANNE-MARIE Number, [id number], Constant Indicator Start Date: 01/03/07 Status: Ordered DOK 100 mg oral tablet See Instructions, TAKE 1 TABLET BY MOUTH TWICE DAILY (STOOL SOFTENER EQUIVALENT), # 60 tablet, 5 Refills, Maintenance, 08/12/22 9:24:00 EDT, [facility], 175.2, cm, 07/27/22 11:37:00 EDT, Height [...] Instructions Replace Required Details, Route toPharmacy Electronically, [facility], 175.2, cm... Start Date: 04/09/20 Status: Ordered fit to pt fit to pt, See Instructions, # 1 units, Refills 0, Tot. Refills 0, Maintenance, rigid cervical collar. Fit to pt., 06/21/18 15:59:47 EDT, Compound Start Date: 06/21/18 Status: Ordered Flomax 0.4 mg oral capsule 0.4, mg, 1, capsule, By Mouth, Daily, 0, 0, 01/03/07 9:24:42, Print ANNE-MARIE Number, [id number], Constant Indicator Start Date: 01/03/07 Status: Ordered hydrochlorothiazide 25 mg oral tablet See Instructions, TAKE 1 TAB BY MOUTH DAILY IN AM FOR HTN/MONITOR BP/IF SYSTOLIC MORE THAN 160, DIASTOLIC MORE THAN 100, SYSTOLIC LESS THAN 90, OR DIASTOLIC LESS THAN 50 CALLNM, # 30 tablet, Refills 5, Maintenance, 09/16/22 [...] Gm, 11 Refills, Maintenance, 12/11/19 11:11:00 EST, [facility], APPLY TO EXTERNAL HEMMORRHOIDS TWICE DAILY PRN PER DR FREEMAN, 175.2, cm, 10/12/19 8:18:00 EST, Height,... Start Date: 12/11/19 Status: Ordered ibuprofen 400 mg oral tablet 400 mg, 1, tablet, By Mouth, 3 times a day, PRN, # 30 tablet, Refills 1, Tot. Refills 1, Maintenance, as needed for pain, 12/25/18 11:23:03 EST, Route to Pharmacy Electronically, [id number], [facility] Start Date: 12/25/18 Status: Ordered lactulose 10 gm/15 ml oral syrup = 20 Gm, By Mouth, Daily at bedtime, # 946 mL, 11 Refills, Maintenance, 09/01/22 7:18:00 EDT, [facility], 31, 20 Gm By Mouth Daily [...] FOR ALLERGIC RHINITIS, Route to Pharmacy Electronically, [facility], 175.2, cm, 07/20/21 10:29:00 EDT, Height Start Date: 11/10/21 Status: Ordered Milk of Magnesia 8% oral suspension 30 mL, By Mouth, Daily at bedtime, FOR CONSTIPATION NLHV=9178 MG., # 900 mL, 5 Refills, Maintenance, 07/01/22 13:24:00 EDT, [facility], 175.2, cm, 04/15/22 9:44:00 EDT, Height Start Date: 07/01/22 Status: Ordered omeprazole 40 mg oral enteric coated capsule See Instructions, TAKE 1 CAPSULE BY MOUTH DAILY FOR GERD IN AM, # 30 capsule, 2 Refills, Maintenance, 11/04/22 10:43:00 EST, [facility], 175.2, cm, 07/27/22 11:37:00 EDT, Height Start Date: 11/04/22 Status: Ordered polyethylene glycol 3350 oral powder for reconstitution See Instructions, MIX 17GM WITH 8 OUNCES OF WATER OR JUICE DAILY AT 5PM FOR CONSTIPATION (POLYETHYLENE GLYCOL), # 510 Gm, 11 Refills, Physician Stop 10/07/23 11:17:00 EST, 10/07/22 11:17:00 EST, [facility], 30, MIX 17GM WITH 8 OUNCES OF WATER OR... Start Date: 10/07/22 Stop Date: 10/07/23 Status: Ordered pravastatin 40 mg oral tablet See Instructions, TAKE 1 TABLET BY MOUTH DAILY IN THE PM FOR HYPERLIPIDEMIA, # 30 tablet, 5 Refills, [facility], 175.2, cm, 04/15/22 9:44:00 EDT, Height Start Date: 05/25/22 Status: Ordered Robafen 100 mg/5 ml oral liquid 10 mL, By Mouth, 4 times a day, PRN NEEDED FOR COUGH/NOTIFY MD IF NO RELIEF AFTER 48 HRS / DOSE =, GUAIFENESIN (TUSSIN MUCUS-CONGEST 100MG/5ML., # 240 mL, 4 Refills, Acute 11/25/22 12:02:00 EST, 11/25/21 12:02:00 EST, [facility], 175.2, cm, 09... Start Date: 11/25/21 [...] 30 tablet, 5 Refills, 10/05/22 11:07:00 EST, [facility], 30, TAKE 1 TABLET BY MOUTH [...] Confirmed Active UI (urinary incontinence) Confirmed Active 88607; repeat 2020 33247; repeat 2018 3egd 2012 barretts, repeat 2014 4egd 2010 positive barretts repeat 2012 5C2 6colonoscopy 2007 nl repeat 2016 7repeat 2024 66946 Social History Social History Type Response Smoking Status Never smoker entered on: 06/25/16 Sex Patient Care team information Care Team Personnel Name: Hannah Roque RN Position: S RN Member Role: Primary Care Nurse Name: Reggie Godinez RN Position: S RN Member Role: Primary Care Nurse Name: Christiane Cedillo RN Position: S RN Member Role: Primary Care Nurse Name: Brandon Freeman MD Position: [facility] Primary Care Physician Member Role: PCP Address: Address: [address] [place] [address]- [place] Name: Janeen Hoskins RN Position: [facility] RN Member Role: Primary Care Nurse Name: Cydney Mckinney RN Position: [facility] RN Member Role: Primary Care Nurse Name: Frantz Mi III, RN Position: [facility] RN Member Role: Primary Care Nurse Name: Cate Martel NP Position: Reference Physician Member Role: Primary Care Nurse Address: Address: [address] [place] [phone]- [place] Name: Fay Morton RN Position: [facility] RN Member Role: Primary Care Nurse Name: Massiel Lu RN Position: [facility] RN Member Role: Primary Care Nurse Name: Lurdes Mujica RN Position: [facility] RN Member Role: Primary Care Nurse Name: Brandie Horvath RN Position: [facility] [employer] Member Role: Primary Care Nurse Name: Claribel Howe RN Position: [facility] RN Member Role: Primary Care Nurse Care Team Related Persons Name: JOHAN PERKINS Name: DAWOOD DE LOS SANTOS Address: home [address] [address] Name: JENNIFER JUAREZ Address: home [address] [place] [address]
--- OUTSIDE RECORDS SUMMARY | 2023-06-15 11:55 | XMS_ITS | Continuity of Care Document ---
Author Name Unknown Organization [facility] Chace lt Address [address] [place] [address]- Care Team Providers Care Bull Float Finisher Name Role Phone Brandon Freeman MD Primary Care Physician [facility] 02[facility]23 - 03/04/23 [facility] [place] Adult [address] [place] [address]- Allergies, Adverse Reactions, Alerts Substance Reaction Severity Status azithromycin Active macrolide antibiotics Active ketolides Active Dust Active Immunizations Given and Recorded Vaccine Date Status Refusal Reason [id number] 12y+ bivalent booster vax 07/22/22 Recorded tetanus-diphtheria [...] clinic 5Admin Note: [facility] 6Admin Note: [facility] VIS [id number] given 7Admin Note: given in clinic 8Result Comment: Pt. already received on 08/07/2015 Medications acetaminophen 325 mg oral tablet 2, tablet, By Mouth, Every 6 hours, PRN, [id number]., # 60 tablet, Refills 0, Maintenance, NEEDED FOR FEVER>100.5 OR PAIN SHOWN BY FACIAL GRIMACE NOTIFY MD IF USED >, 11/12/22 9:30:00 EST, Route to Pharmacy Electronically, [facility], 175.2, c... Start Date: 11/12/22 Stop Date: 11/15/22 Status: Ordered bacitracin zinc 500 units/g topical ointment See Instructions, APPLY SMALL AMOUNT TOPICALLY TO SUPERFICIAL WOUNDS 4 TIMES A DAY NEEDED AN ANTIBACTERIAL / CALL MD IF USING FOR MORE THAN 7 DAYS, # 28 Gm, 11 Refills, Maintenance, 11/09/22 15:57:00 EST, [facility], 7, APPLY SMALL AMOUNT T... Start [...] supp, 11 Refills, Maintenance, 12/16/22 13:35:00 EST, [facility], 175.2, cm, 07/27/22 11:37:00 EDT, Height [...] 30 SEC... Start Date: 10/26/18 Status: Ordered [employer] Well[facility] oral capsule 1 capsule, By Mouth, Daily, FOR INTESTINAL HEALTH., # 30 capsule, 11 Refills, Maintenance, 07/29/2211:36:00 EDT, [facility], 30, 1 capsule By Mouth Daily,Instr:FOR [...] 19 GM, # 133 mL, 11 Refills, [facility], 5, ONE ENEMA PERRECTUM DAY 5 WITHOUT BOWEL MOVEMENT / IF NO RESULTS... Start Date: 03/16/22 Status: Ordered Ditropan XL 10 mg oral tablet, extended release 10, mg, 1, tablet, By Mouth, Daily, 0, 01/03/07 9:24:09, Print ANNE-MARIE Number, [id number], Constant Indicator Start Date: 01/03/07 Status: Ordered DOK 100 mg oral tablet See Instructions, TAKE 1 TABLET BY MOUTH TWICE DAILY (AM AND PM) (STOOL SOFTENER EQUIVALENT), # 60 tablet, 5 Refills, Maintenance, 02/02/23 15:38:00 EDT, [facility], 175.2, cm, 02/01/23 15:11:00EDT, Height Start [...] Instructions Replace Required Details, Route toPharmacy Electronically, [facility], 175.2, cm... Start Date: 04/09/20 Status: Ordered fit to pt fit to pt, See Instructions, # 1 units, Refills 0, Tot. Refills 0, Maintenance, rigid cervical collar. Fit to pt., 06/21/18 15:59:47 EDT, Compound Start Date: 06/21/18 Status: Ordered Flomax 0.4 mg oral capsule 0.4, mg, 1, capsule, By Mouth, Daily, 0, 0, 01/03/07 9:24:42, Print ANNE-MARIE Number, [id number], Constant Indicator Start Date: 01/03/07 Status: Ordered [...] Gm, 11 Refills, Maintenance, 12/11/19 11:11:00 EST, [facility], APPLY TO EXTERNAL HEMMORRHOIDS TWICE DAILY PRN PER DR FREEMAN, 175.2, cm, 10/12/19 8:18:00 EST, Height,... Start Date: 12/11/19 Status: Ordered ibuprofen 400 mg oral tablet 400 mg, 1, tablet, By Mouth, 3 times a day, PRN, # 30 tablet, Refills 1, Tot. Refills 1, Maintenance, as needed for pain, 12/25/18 11:23:03 EST, Route to Pharmacy Electronically, [id number], [facility] Start Date: 12/25/18 Status: Ordered lactulose 10 gm/15 ml oral syrup = 20 Gm, By Mouth, Daily at bedtime, # 946 mL, 11 Refills, Maintenance, 09/01/22 7:18:00 EDT, [facility], 31, 20 Gm By Mouth Daily [...] FOR ALLERGIC RHINITIS, Route to Pharmacy Electronically, [facility], 175.2, cm, 07/20/21 10:29:00 EDT, Height Start Date: 11/10/21 Status: Ordered Milk of Magnesia 8% oral suspension 30 mL, By Mouth, Daily at bedtime, FOR CONSTIPATION JWES=4973 MG., # 900 mL, 5 Refills, Maintenance, 07/01/22 13:24:00 EDT, [facility], 175.2, cm, 04/15/22 9:44:00 EDT, Height Start Date: 07/01/22 Status: Ordered omeprazole 40 mg oral enteric coated capsule 1 capsule, By Mouth, Daily in AM, # 30 capsule, 5 Refills, Maintenance, 02/01/23 7:37:00 EDT, [facility], 175.2, cm, 07/27/22 11:37:00 EDT, Height Start Date: 02/01/23 Status: Ordered polyethylene glycol 3350 oral powder for reconstitution See Instructions, MIX 17GM WITH 8 OUNCES OF WATER OR JUICE DAILY AT 5PM FOR CONSTIPATION (POLYETHYLENE GLYCOL), # 510 Gm, 11 Refills, Physician Stop 10/07/23 11:17:00 EST, 10/07/22 11:17:00 EST, [facility], 30, MIX 17GM WITH 8 OUNCES OF WATER OR... Start Date: 10/07/22 Stop Date: 10/07/23 Status: Ordered pravastatin 40 mg oral tablet See Instructions, TAKE 1 TABLET BY MOUTH DAILY IN THE PM FOR HYPERLIPIDEMIA, # 30 tablet, 5 Refills, Maintenance, 11/18/22 15:41:00 EST, [facility], 175.2, cm, 07/27/22 11:37:00 EDT, Height [...] Confirmed Active UI (urinary incontinence) Confirmed Active 21969; repeat 2020 21050; repeat 2018 3egd 2012 barretts, repeat 2015 4egd 2010 positive barretts repeat 2011 5C2 6colonoscopy 2006 nl repeat 2016 7repeat 2024 51307 Social History Social History Type Response Smoking Status Never smoker entered on: 06/25/16 Sex Patient Care team information Care Team Personnel Name: Hannah Roque RN Position: S RN Member Role: Primary Care Nurse Name: Reggie Godinez RN Position: S RN Member Role: Primary Care Nurse Name: Christiane Cedillo RN Position: [facility] RN Member Role: Primary Care Nurse Name: Brandon Freemna MD Position: [facility] Primary Care Physician Member Role: PCP Address: Address: [address] [place] [phone]- [place] Name: Janeen Hoskins RN Position: [facility] RN Member Role: Primary Care Nurse Name: Cydney Mckinney RN Position: [facility] RN Member Role: Primary Care Nurse Name: Frantz Mi III, RN Position: [facility] RN Member Role: Primary Care Nurse Name: Tahmina CAR COOPER, Cate Melgar Position: Reference Physician Member Role: Primary Care Nurse Address: Address: [address] [place] [phone]- [place] Name: Fay Morton RN Position: [facility] RN Member Role: Primary Care Nurse Name: Massiel Lu RN Position: [facility] RN Member Role: Primary Care Nurse Name: Lurdes Mujica RN Position: [facility] RN Member Role: Primary Care Nurse Name: Brandie Horvath RN Position: [facility] [employer] Member Role: Primary Care Nurse Name: Claribel Howe RN Position: [facility] RN Member Role: Primary Care Nurse Care Team Related Persons Name: JOHAN PERKINS Name: DAWOOD DE LOS SANTOS Address: home [address] [place] [address] Name: JENNIFER JUAREZ Address: home [address] [place] [address]
--- OUTSIDE RECORDS SUMMARY | 2023-06-15 11:55 | XMS_ITS | Continuity of Care Document ---
Author Name Unknown Organization [facility] Chace lt Address [address] [place] [address]- Care Team Providers Care Minister Name Role Phone Brandon Freeman MD Primary Care Physician [facility]23 - 06/03/23 [facility] Adult [address] [place] [address]- Allergies, Adverse Reactions, Alerts Substance Reaction Severity Status azithromycin Active macrolide antibiotics Active ketolides Active Dust Active Immunizations Given and Recorded Vaccine Date Status Refusal Reason [id number] 12y+ bivalent booster vax 07/22/22 Recorded tetanus-diphtheria [...] clinic 5Admin Note: [facility] 6Admin Note: [facility] VIS [id number] given 7Admin Note: given in clinic 8Result Comment: Pt. already received on 08/07/2015 Medications acetaminophen 325 mg oral tablet 2, tablet, By Mouth, Every 6 hours, PRN, [id number]., # 60 tablet, Refills 0, Maintenance, NEEDED FOR FEVER>100.5 OR PAIN SHOWN BY FACIAL GRIMACE NOTIFY MD IF USED >, 11/12/22 9:30:00 EST, Route to Pharmacy Electronically, [facility], 175.2, c... Start Date: 11/12/22 Stop Date: 11/15/22 Status: Ordered bacitracin zinc 500 units/g topical ointment See Instructions, APPLY SMALL AMOUNT TOPICALLY TO SUPERFICIAL WOUNDS 4 TIMES A DAY NEEDED AN ANTIBACTERIAL / CALL MD IF USING FOR MORE THAN 7 DAYS, # 28 Gm, 11 Refills, Maintenance, 11/09/22 15:57:00 EST, [facility], 7, APPLY SMALL AMOUNT T... Start [...] supp, 11 Refills, Maintenance, 12/16/22 13:35:00 EST, [facility], 175.2, cm, 07/27/22 11:37:00 EDT, Height [...] 30 SEC... Start Date: 10/26/18 Status: Ordered [facility] oral capsule 1 capsule, By Mouth, Daily, FOR INTESTINAL HEALTH., # 30 capsule, 11 Refills, Maintenance, 07/29/2211:36:00 EDT, [facility], 30, 1 capsule By Mouth Daily,Instr:FOR [...] Stop 04/06/24 13:54:00 EDT, 04/05/23 13:54:00 EDT, [facility], 5, ONE... Start Date: 04/05/23 Stop Date: 04/06/24 Status: Ordered Ditropan XL 10 mg oral tablet, extended release 10, mg, 1, tablet, By Mouth, Daily, 0, 01/03/07 9:24:09, Print ANNE-MARIE Number, [id number], Constant Indicator Start Date: 01/03/07 Status: Ordered DOK 100 mg oral tablet See Instructions, TAKE 1 TABLET BY MOUTH TWICE DAILY (AM AND PM) (STOOL SOFTENER EQUIVALENT), # 60 tablet, 5 Refills, Maintenance, 02/02/23 15:38:00 EDT, [facility], 175.2, cm, 02/01/23 15:11:00EDT, Height Start [...] Instructions Replace Required Details, Route toPharmacy Electronically, [facility], 175.2, cm... Start Date: 04/09/20 Status: Ordered fit to pt fit to pt, See Instructions, # 1 units, Refills 0, Tot. Refills 0, Maintenance, rigid cervical collar. Fit to pt., 06/21/18 15:59:47 EDT, Compound Start Date: 06/21/18 Status: Ordered Flomax 0.4 mg oral capsule 0.4, mg, 1, capsule, By Mouth, Daily, 0, 0, 01/03/07 9:24:42, Print ANNE-MARIE Number, [id number], Constant Indicator Start Date: 01/03/07 Status: Ordered hydrochlorothiazide 25 mg oral tablet 1, tablet, By Mouth, Daily in AM, FOR HTN/MONITOR BP/IF SYSTOLIC MORE THAN 160, DIASTOLIC MORE [id number], SYSTOLIC LESS THAN 90, OR DIASTOLIC LESS THAN 50 CALLMD., # 90 tablet, Refills 1, Tot. Refills1, Maintenance, 03/15/23 14:21:00 EDT, [facility]... Start Date: 03/15/23 Status: Ordered HYDROCORTISONE [...] Gm, 11 Refills, Maintenance, 12/11/19 11:11:00 EST, [facility], APPLY TO EXTERNAL HEMMORRHOIDS TWICE DAILY PRN PER DR FREEMAN, 175.2, cm, 10/12/19 8:18:00 EST, Height,... Start Date: 12/11/19 Status: Ordered ibuprofen 400 mg oral tablet 400 mg, 1, tablet, By Mouth, 3 times a day, PRN, # 30 tablet, Refills 1, Tot. Refills 1, Maintenance, as needed for pain, 12/25/18 11:23:03 EST, Route to Pharmacy Electronically, [id number], [facility] Start Date: 12/25/18 Status: Ordered lactulose 10 gm/15 ml oral syrup = 20 Gm, By Mouth, Daily at bedtime, # 946 mL, 11 Refills, Maintenance, 09/01/22 7:18:00 EDT, [facility], 31, 20 Gm By Mouth Daily [...] 03/08/23 11:54:00 EDT, Route to Pharmacy Electronically, [facility], Partial fill u... Start Date: 03/08/23 Stop Date: 03/08/24 Status: Ordered loratadine 10 mg oral tablet 1, tablet, By Mouth, Daily, PRN, # 30 tablet, Refills 11, NEEDED FOR ALLERGY SYMPTOMS WATERY, ITCHY RED EYES, SNEEZING FOR ALLERGIC RHINITIS, Route to Pharmacy Electronically, [facility], 175.2, cm, 07/20/21 10:29:00 EDT, Height Start Date: 11/10/21 Status: Ordered Milk of Magnesia 8% oral suspension 30 mL, By Mouth, Daily at bedtime, FOR CONSTIPATION ORVH=0648 MG., # 900 mL, 5 Refills, Maintenance, 04/04/23 21:00:00 EDT, [facility], 175.2, cm, 02/01/23 15:11:00 EDT, Height Start Date: 04/04/23 Status: Ordered omeprazole 40 mg oral enteric coated capsule 1 capsule, By Mouth, Daily in AM, # 30 capsule, 5 Refills, Maintenance, 02/01/23 7:37:00 EDT, [facility], 175.2, cm, 07/27/22 11:37:00 EDT, Height Start Date: 02/01/23 Status: Ordered polyethylene glycol 3350 oral powder for reconstitution See Instructions, MIX 17GM WITH 8 OUNCES OF WATER OR JUICE DAILY AT 5PM FOR CONSTIPATION (POLYETHYLENE GLYCOL), # 510 Gm, 11 Refills, Physician Stop 10/07/23 11:17:00 EST, 10/07/22 11:17:00 EST, [facility], 30, MIX 17GM WITH 8 OUNCES OF WATER OR... Start Date: 10/07/22 Stop Date: 10/07/23 Status: Ordered pravastatin 40 mg oral tablet See Instructions, TAKE 1 TABLET BY MOUTH DAILY IN THE PM FOR HYPERLIPIDEMIA, # 30 tablet, 5 Refills, Maintenance, 05/19/23 0:31:00 EDT, [facility], 175.2, cm, 05/13/23 11:02:00 EDT, Height [...] 1 Refills, Maintenance, 05/11/22 14:45:00 EDT, Cream, [facility], Partial fill upon patient request if [...] tablet, 5 Refills, Maintenance, 04/04/23 21:00:00 EDT, [facility], 30, TAKE 1 TABLET BY MOUTH [...] Confirmed Active UI (urinary incontinence) Confirmed Active 49598; repeat 2020 35189; repeat 2018 3egd 2012 barretts, repeat 2014 4egd 2010 positive barretts repeat 2011 5C2 6colonoscopy 2006 nl repeat 2016 7repeat 2024 11940 Social History Social History Type Response Smoking Status Never smoker entered on: 06/25/16 Sex Patient Care team information Care Team Personnel Name: Hannah Roque RN Position: [facility] RN Member Role: Primary Care Nurse Name: Reggie Godinez RN Position: [facility] RN Member Role: Primary Care Nurse Name: Christiane Cedillo RN Position: [facility] RN Member Role: Primary Care Nurse Name: Brandon Freeman MD Position: [facility] Physician - Primary Care Member Role: PCP Address: Address: [address] [place] [address]- Name: Janeen Hoskins RN Position: [facility] RN Member Role: Primary Care Nurse Name: Cydney Mckinney RN Position: [facility] RN Member Role: Primary Care Nurse Name: Frantz Mi III, RN Position: [facility] RN Member Role: Primary Care Nurse Name: Cate Martel NP Position: Reference Physician Member Role: Primary Care Nurse Address: Address: [address] [place] [phone]- [place] Name: Fay Morton RN Position: [facility] RN Member Role: Primary Care Nurse Name: Massiel Lu RN Position: [facility] RN Member Role: Primary Care Nurse Name: Lurdes Mujica RN Position: [facility] RN Member Role: Primary Care Nurse Name: Brandie Horvath RN Position: [facility] [employer] Member Role: Primary Care Nurse Name: Claribel Howe RN Position: [facility] SN RN Member Role: Primary Care Nurse Care Team Related Persons Name: JOHAN PERKINS Name: DAWOOD DE LOS SANTOS Address: home [address] [place] [address] Name: JENNIFER JUAREZ Address: home [address] [place] [address]
--- OUTSIDE RECORDS SUMMARY | 2023-06-15 11:55 | XMS_ITS | Continuity of Care Document ---
Author Name Unknown Organization [facility] Chace lt Address [address] [place] [address]- Care Team Providers Care De Icer Element Winder Name Role Phone Brandon Freeman MD Primary Care Physician [phone] [facility] Date[facility]): 02[facility]21 - 03/05/21 [facility] Adult [address] [place] [address]- Allergies, Adverse Reactions, Alerts Substance Reaction Severity [...] 07/24/13 Gi stacie influenza virus vaccine, inactivated 07/20/12 Gi stacie zoster vaccine, inactivated 12/29/18 [...] GIVEN 5Admin Note: FLU CLINIC 6Admin Note: zintin [facility] VIS [id number] given 7Admin Note: given in clinic 8Result Comment: Pt. already received on 08/07/2015 Medications bacitracin zinc 500 units/g topical ointment See Instructions, APPLY SMALL AMOUNT TOPICALLY TO SUPERFICIAL WOUNDS 4 TIMES A DAY NEEDED AN ANTIBACTERIAL / CALL MD IF USING FOR MORE THAN 7 DAYS, # 1 Gm, 11 Refills, Acute, [facility], 7, APPLY SMALL AMOUNT TOPICALLY TO [...] CONSTIPATION, # 7 supp, 11 Refills, Acute, [facility], 175.2, cm, 10/12/19 8:18:00 EST, Height [...] Acute 07/27/21 9:44:00 EDT, 08/01/20 9:44:00 EDT, [facility], 1 capsule By Mouth Daily,x90 days,Instr:FOR INTESTINAL HEALTH., 175.2, cm, 07/09/20 10:27:00 E... Start Date: 08/01/20 Stop Date: 07/27/21 Status: Ordered diazepam 10 mg oral tablet See Instructions, PRN, 1 tablet By Mouth 1 hour prior to medical appointments, # 1 tablet, Refills 5, Tot. Refills 5, Maintenance, for anxiety, 01/07/21 11:49:00 EST, Instructions Replace Required Details, Route to Pharmacy Electronically, [facility]... Start Date: 01/07/21 Status: Ordered Ditropan XL 10 mg oral tablet, extended release 10, mg, 1, tablet, By Mouth, Daily, 0, 01/03/07 9:24:09, Print ANNE-MARIE Number, [id number], Constant Indicator Start Date: 01/03/07 Status: Ordered DOK 100 mg oral tablet See Instructions, TAKE 1 TABLET BY MOUTH TWICE DAILY (STOOL SOFTENER EQUIVALENT), # 60 tablet, 5 Refills, Soft Stop, 11/06/20 9:22:00 EST, [facility], 175.2, cm, 07/09/20 10:27:00 EDT, Height [...] Instructions Replace Required Details, Route toPharmacy Electronically, [facility], 175.2, cm... Start Date: 04/09/20 Status: [...] 0, 0, 01/03/07 9:24:42, Print ANNE-MARIE Number, [id number], Constant Indicator Start Date: 01/03/07 Status: Ordered [...] 12/25/18 11:23:03 EST, Route to Pharmacy Electronically, [id number], [facility] Start Date: 12/25/18 Status: Ordered lactulose 10 gm/15 ml oral syrup See Instructions, TWO TABLESPOONFULS BY MOUTH DAILY AT BEDTIME FOR CONSTIPATION / GIVE WITH LIQUIDSJUICE/WATER / 2 TBSP = 30 ML DOSE = 20 GRAMS, # 946 mL, 11 Refills, Soft Stop, 08/15/20 7:20:00 EDT, [facility], TWO TABLESPOONFULS BY MOUTH DAILY... Start Date: 08/15/20 Status: Ordered lisinopril 20 mg oral tablet 1, tablet, By Mouth, Daily in AM, FOR HTN / CALL MD IF SBP>160 OR DBP>100 OR SBP<90 OR DBP<50., # 30 tablet, Refills 5, Tot. Refills 0, Maintenance, 02/03/21 12:45:00 EDT, Route to Pharmacy Electronically, [facility], 175.2, cm, 11/28/20 7:21:00... Start Date: 02/03/21 Status: Ordered loratadine 10 mg oral tablet 10 mg, 1, tablet, By Mouth, Daily, PER DR FREEMAN, # 30 tablet, Refills 11, Tot. Refills 11, 02/19/20 9:46:00 EDT, Route to Pharmacy Electronically, [facility], 175.2, cm, 10/12/19 8:18:00 EST, Height, 73.2, kg, 03/05/18 17:34:00 EDT, Dry Weight Start Date: 02/19/20 Status: Ordered Milk of Magnesia 8% oral suspension 30 mL = 2.4 Gm, By Mouth, Daily at bedtime, # 900 mL, 5 Refills, Maintenance, 09/02/20 12:20:00 EST, [facility], 175.2, cm, 07/09/20 10:27:00 EDT, Height, Dry Weight Start Date: 09/02/20 Stop Date: 03/01/21 Status: Ordered omeprazole 40 mg oral enteric coated capsule 1 capsule = 40 mg, By Mouth, Daily, # 30 capsule, 5 Refills, Maintenance, 12/04/20 6:53:00 EST, EC Capsule, [facility], Partial fill upon patient request if the prescription is for a schedule IIopioid drug., 175.2, cm, 11/28/20 7:21:00 EST, Height Start Date: 12/04/20 Status: Ordered polyethylene glycol 3350 oral powder for reconstitution = 17 Gm, By Mouth, Daily, dissolve in water or juice, # 527 Gm, 11 Refills, Maintenance, 08/26/20 9:54:00 EDT, [facility], 17 Gm By Mouth Daily,Instr:dissolve in water or juice, 175.2, cm, 07/09/20 10:27:00 EDT, Height Start Date: 08/26/20 Status: Ordered pravastatin 40 mg oral tablet 1 tablet, By Mouth, Daily, IN THE PM FOR HYPERLIPIDEMIA., # 30 tablet, 2 Refills, Maintenance, 02/17/21 14:29:00 EDT, [facility], 175.2, cm, 11/28/20 7:21:00 EST, Height Start Date: 02/17/21 Status: Ordered Robafen 100 mg/5 ml oral liquid 10 mL, By Mouth, 4 times a day, PRN NEEDED FOR COUGH/NOTIFY MD IF NO RELIEF AFTER 48 HRS / DOSE =, GUAIFENESIN (TUSSIN MUCUS-CONGEST 100MG/5ML., # 240 mL, 4 Refills, Acute, 10/28/20 6:38:00 EST, [facility], 175.2, cm, 07/09/20 10:27:00 EDT, He... [...] Raynaud's phenomenon(Confirmed) Active UI (urinary incontinence)(Confirmed) Active 55981; repeat 2020; repeat 2017 3egd 2012 barretts, repeat 2014 4egd 2010 positive barretts repeat 2011 5C2 6colonoscopy 2007 nl repeat 2016 7repeat 2024 [id number] Social History Social History Type Response Smoking Status Never smoker entered on: 06/25/16 Sex
--- OUTSIDE RECORDS SUMMARY | 2023-06-15 11:55 | XMS_ITS | Continuity of Care Document ---
Author Name Unknown Organization [facility] Chace lt Address [address] [place] [address]- Care Team Providers Care Trapeze Artist Name Role Phone [place], Brandon Chamorro Primary Care Physician [phone] [facility]): 04[facility]/22 - 04/13/22 [facility] Adult [address] [place] [address]- Encounter Diagnosis Rash of both feet(Discharge Diagnosis) - 04/06/22 Attending Physician: Paula Diego NP Referring Physician: Brandon Freeman MD Allergies, Adverse Reactions, [...] GIVEN 5Admin Note: FLU CLINIC 6Admin Note: ice [facility] VIS [id number] given 7Admin Note: given in clinic 8Result [...] FOR CONSTIPATION, # 7 supp, 11 Refills, [facility], 175.2, cm, 07/20/21 10:29:00 EDT, Height [...] INTESTINAL HEALTH., # 30 capsule, 11 Refills, [facility], 30, TAKE 1 CAPSULE BY MOUTH [...] 19 GM, # 133 mL, 11 Refills, [facility], 5, ONE ENEMA PERRECTUM DAY 5 WITHOUT BOWEL MOVEMENT / IF NO RESULTS... Start Date: 03/16/22 Status: Ordered Ditropan XL 10 mg oral tablet, extended release 10, mg, 1, tablet, By Mouth, Daily, 0, 01/03/07 9:24:09, Print ANNE-MARIE Number, [id number], Constant Indicator Start Date: 01/03/07 Status: Ordered DOK 100 mg oral tablet See Instructions, TAKE 1 TABLET BY MOUTH TWICE DAILY (STOOL SOFTENER EQUIVALENT), # 60 tablet, 5 Refills, [facility], 175.2, cm, 07/20/21 10:29:00 EDT, Height [...] Instructions Replace Required Details, Route toPharmacy Electronically, [facility], 175.2, cm... Start Date: 04/09/20 Status: Ordered fit to pt fit to pt, See Instructions, # 1 units, Refills 0, Tot. Refills 0, Maintenance, rigid cervical collar. Fit to pt., 06/21/18 15:59:47 EDT, Compound Start Date: 06/21/18 Status: Ordered Flomax 0.4 mg oral capsule 0.4, mg, 1, capsule, By Mouth, Daily, 0, 0, 01/03/07 9:24:42, Print ANNE-MARIE Number, [id number], Constant Indicator Start Date: 01/03/07 Status: Ordered [...] Gm, 11 Refills, Maintenance, 12/11/19 11:11:00 EST, [facility], APPLY TO EXTERNAL HEMMORRHOIDS TWICE DAILY PRN PER DR FREEMAN, 175.2, cm, 10/12/19 8:18:00 EST, Height,... Start Date: 12/11/19 Status: Ordered ibuprofen 400 mg oral tablet 400 mg, 1, tablet, By Mouth, 3 times a day, PRN, # 30 tablet, Refills 1, Tot. Refills 1, Maintenance, as needed for pain, 12/25/18 11:23:03 EST, Route to Pharmacy Electronically, [id number], [facility] Start Date: 12/25/18 Status: Ordered lactulose 10 gm/15 ml oral syrup = 20 Gm, By Mouth, Daily at bedtime, GIVE WITH., # 946 mL, 11 Refills, [facility], 31, TWO TABLESPOONFULS BY MOUTH DAILY [...] FOR ALLERGIC RHINITIS, Route to Pharmacy Electronically, [facility], 175.2, cm, 07/20/21 10:29:00 EDT, Height Start Date: 11/10/21 Status: Ordered Milk of Magnesia 8% oral suspension 30 mL, By Mouth, Daily at bedtime, FOR CONSTIPATION SXQY=5845 MG., # 900 mL, 5 Refills, [facility], 175.2, cm, 07/20/21 10:29:00 EDT, Height Start Date: 11/24/21 Status: Ordered omeprazole 40 mg oral enteric coated capsule See Instructions, TAKE 1 CAPSULE BY MOUTH DAILY FOR GERD IN AM, # 30 capsule, 2 Refills, [facility], 175.2, cm, 07/20/21 10:29:00 EDT, Height Start Date: 01/27/22 Status: Ordered polyethylene glycol 3350 oral powder for reconstitution See Instructions, MIX 17GM WITH 8 OUNCES OF WATER OR JUICE DAILY AT 5PM FOR CONSTIPATION (POLYETHYLENE GLYCOL), # 510 Gm, 11 Refills, [facility], 30, MIX 17GM WITH 8 OUNCES OF WATER OR JUICE DAILY AT 5PM FOR CONSTIPATION (POLYETHYLENE GLYCOL), 17... Start Date: 09/22/21 Status: Ordered pravastatin 40 mg oral tablet See Instructions, TAKE 1 TABLET BY MOUTH DAILY IN THE PM FOR HYPERLIPIDEMIA, # 30 tablet, 5 Refills, [facility], 175.2, cm, 07/20/21 10:29:00 EDT, Height Start Date: 11/09/21 Status: Ordered Robafen 100 mg/5 ml oral liquid 10 mL, By Mouth, 4 times a day, PRN NEEDED FOR COUGH/NOTIFY MD IF NO RELIEF AFTER 48 HRS / DOSE =, GUAIFENESIN (TUSSIN MUCUS-CONGEST 100MG/5ML., # 240 mL, 4 Refills, Acute 11/25/22 12:02:00 EST, 11/25/21 12:02:00 EST, [facility], 175.2, cm, 09... Start Date: 11/25/21 Stop Date: 11/25/22 Status: Ordered Shingrix intramuscular injection 0.5 mL, Intramuscular, Once, # 0.5 mL, 1 Refills, Soft Stop, 06/28/18 10:24:17 EDT Start Date: 06/28/18 Status: Ordered terbinafine 1% topical cream 1 application, Topically, 2 times a day, # 30 Gm, 0 Refills, Maintenance, 04/06/22 16:14:00 EDT, Cream, [facility], Partial fill upon patient request if [...] Raynaud's phenomenon(Confirmed) Active UI (urinary incontinence)(Confirmed) Active 22456; repeat 202015; repeat 2018 3egd 2011 barretts, repeat 2014 4egd 2010 positive barretts repeat 2011 5C2 6colonoscopy 2006 nl repeat 2016 7repeat 2024 [id number] Diagnosis Diagnosis Type Effective Dates Health Status Cl inical Service Informant Rash of both feet Discharge Diagnosis 04/06/22 Vital Signs Most recent to oldest [Reference Range]: 1 Height 175.2 cm (04/06/22 3:47 PM) Social History Social History Type Response Smoking Status Never smoker entered on: 06/25/16 Sex
--- OUTSIDE RECORDS SUMMARY | 2023-06-15 11:55 | XMS_ITS | Continuity of Care Document ---
Author Name Unknown Organization [facility] Chace lt Address [address] [place] [address]- Care Team Providers Care Thread Roller Name Role Phone Brandon Freeman MD Primary Care Physician [facility] Date[facility]): 03/10/22 - 04/09/22 [facility] Adult [address] [place] [address]- Allergies, Adverse Reactions, Alerts Substance Reaction Severity [...] GIVEN 5Admin Note: FLU CLINIC 6Admin Note: Talas[facility] VIS [phone] given 7Admin Note: given in clinic 8Result Comment: Pt. already received on 08/07/2015 Medications bacitracin zinc 500 units/g topical ointment See Instructions, APPLY SMALL AMOUNT TOPICALLY TO SUPERFICIAL WOUNDS 4 TIMES A DAY NEEDED AN ANTIBACTERIAL / CALL MD IF USING FOR MORE THAN 7 DAYS, # 1 Gm, 11 Refills, Acute, [facility], 7, APPLY SMALL AMOUNT TOPICALLY TO [...] FOR CONSTIPATION, # 7 supp, 11 Refills, [facility], 175.2, cm, 07/20/21 10:29:00 EDT, Height [...] INTESTINAL HEALTH., # 30 capsule, 11 Refills, [facility], 30, TAKE 1 CAPSULE BY MOUTH [...] 19 GM, # 133 mL, 11 Refills, [facility], 5, ONE ENEMA PERRECTUM DAY 5 WITHOUT BOWEL MOVEMENT / IF NO RESULTS... Start Date: 03/16/22 Status: Ordered Ditropan XL 10 mg oral tablet, extended release 10, mg, 1, tablet, By Mouth, Daily, 0, 01/03/07 9:24:09, Print ANNE-MARIE Number, [id number], Constant Indicator Start Date: 01/03/07 Status: Ordered DOK 100 mg oral tablet See Instructions, TAKE 1 TABLET BY MOUTH TWICE DAILY (STOOL SOFTENER EQUIVALENT), # 60 tablet, 5 Refills, [facility], 175.2, cm, 07/20/21 10:29:00 EDT, Height [...] Instructions Replace Required Details, Route toPharmacy Electronically, [facility], 175.2, cm... Start Date: 04/09/20 Status: Ordered fit to pt fit to pt, See Instructions, # 1 units, Refills 0, Tot. Refills 0, Maintenance, rigid cervical collar. Fit to pt., 06/21/18 15:59:47 EDT, Compound Start Date: 06/21/18 Status: Ordered Flomax 0.4 mg oral capsule 0.4, mg, 1, capsule, By Mouth, Daily, 0, 0, 01/03/07 9:24:42, Print ANNE-MARIE Number, [id number], Constant Indicator Start Date: 01/03/07 Status: Ordered [...] Gm, 11 Refills, Maintenance, 12/11/19 11:11:00 EST, [facility], APPLY TO EXTERNAL HEMMORRHOIDS TWICE DAILY PRN PER DR FREEMAN, 175.2, cm, 10/12/19 8:18:00 EST, Height,... Start Date: 12/11/19 Status: Ordered ibuprofen 400 mg oral tablet 400 mg, 1, tablet, By Mouth, 3 times a day, PRN, # 30 tablet, Refills 1, Tot. Refills 1, Maintenance, as needed for pain, 12/25/18 11:23:03 EST, Route to Pharmacy Electronically, [id number], [facility] Start Date: 12/25/18 Status: Ordered lactulose 10 gm/15 ml oral syrup = 20 Gm, By Mouth, Daily at bedtime, GIVE WITH., # 946 mL, 11 Refills, [facility], 31, TWO TABLESPOONFULS BY MOUTH DAILY [...] FOR ALLERGIC RHINITIS, Route to Pharmacy Electronically, [facility], 175.2, cm, 07/20/21 10:29:00 EDT, Height Start Date: 11/10/21 Status: Ordered Milk of Magnesia 8% oral suspension 30 mL, By Mouth, Daily at bedtime, FOR CONSTIPATION QBQV=6215 MG., # 900 mL, 5 Refills, [facility], 175.2, cm, 07/20/21 10:29:00 EDT, Height Start Date: 11/24/21 Status: Ordered omeprazole 40 mg oral enteric coated capsule See Instructions, TAKE 1 CAPSULE BY MOUTH DAILY FOR GERD IN AM, # 30 capsule, 2 Refills, [facility], 175.2, cm, 07/20/21 10:29:00 EDT, Height Start Date: 01/27/22 Status: Ordered polyethylene glycol 3350 oral powder for reconstitution See Instructions, MIX 17GM WITH 8 OUNCES OF WATER OR JUICE DAILY AT 5PM FOR CONSTIPATION (POLYETHYLENE GLYCOL), # 510 Gm, 11 Refills, [facility], 30, MIX 17GM WITH 8 OUNCES OF WATER OR JUICE DAILY AT 5PM FOR CONSTIPATION (POLYETHYLENE GLYCOL), 17... Start Date: 09/22/21 Status: Ordered pravastatin 40 mg oral tablet See Instructions, TAKE 1 TABLET BY MOUTH DAILY IN THE PM FOR HYPERLIPIDEMIA, # 30 tablet, 5 Refills, [facility], 175.2, cm, 07/20/21 10:29:00 EDT, Height Start Date: 11/09/21 Status: Ordered Robafen 100 mg/5 ml oral liquid 10 mL, By Mouth, 4 times a day, PRN NEEDED FOR COUGH/NOTIFY MD IF NO RELIEF AFTER 48 HRS / DOSE =, GUAIFENESIN (TUSSIN MUCUS-CONGEST 100MG/5ML., # 240 mL, 4 Refills, Acute 11/25/22 12:02:00 EST, 11/25/21 12:02:00 EST, [facility], 175.2, cm, 09... Start Date: 11/25/21 Stop Date: 11/25/22 Status: Ordered Shingrix intramuscular injection 0.5 mL, Intramuscular, Once, # 0.5 mL, 1 Refills, Soft Stop, 06/28/18 10:24:17 EDT Start Date: 06/28/18 Status: Ordered terbinafine 1% topical cream 1 application, Topically, 2 times a day, # 30 Gm, 0 Refills, Maintenance, 04/06/22 16:14:00 EDT, Cream, [facility], Partial fill upon patient request if [...] Raynaud's phenomenon(Confirmed) Active UI (urinary incontinence)(Confirmed) Active 84934; repeat 2020; repeat 2018 3egd 2012 barretts, repeat 2014 4egd 2010 positive barretts repeat 2011 5C2 6colonoscopy 2006 repeat 2016 7repeat 2024 [id number] Social History Social History Type Response Smoking Status Never smoker entered on: 06/25/16 Sex
--- OUTSIDE RECORDS SUMMARY | 2023-06-15 11:55 | XMS_ITS | Continuity of Care Document ---
Author Name Unknown Organization [facility] Chace lt Address [address] [place] [address]- Care Team Providers Care Respiratory Medicine Physician Name Role Phone Brandon Freeman MD Primary Care Physician [phone] [facility] 03[facility]22 - 04/30/22 [facility] Adult [address] [place] [address]- Allergies, Adverse Reactions, Alerts Substance Reaction Severity [...] GIVEN 5Admin Note: FLU CLINIC 6Admin Note: [facility] VIS [phone] given 7Admin Note: given in clinic 8Result Comment: Pt. already received on 08/07/2015 Medications bacitracin zinc 500 units/g topical ointment See Instructions, APPLY SMALL AMOUNT TOPICALLY TO SUPERFICIAL WOUNDS 4 TIMES A DAY NEEDED AN ANTIBACTERIAL / CALL MD IF USING FOR MORE THAN 7 DAYS, # 1 Gm, 11 Refills, Acute, [facility], 7, APPLY SMALL AMOUNT TOPICALLY TO [...] FOR CONSTIPATION, # 7 supp, 11 Refills, [facility], 175.2, cm, 07/20/21 10:29:00 EDT, Height [...] INTESTINAL HEALTH., # 30 capsule, 11 Refills, [facility], 30, TAKE 1 CAPSULE BY MOUTH [...] 19 GM, # 133 mL, 11 Refills, [facility], 5, ONE ENEMA PERRECTUM DAY 5 WITHOUT BOWEL MOVEMENT / IF NO RESULTS... Start Date: 03/16/22 Status: Ordered Ditropan XL 10 mg oral tablet, extended release 10, mg, 1, tablet, By Mouth, Daily, 0, 01/03/07 9:24:09, Print ANNE-MARIE Number, [id number], Constant Indicator Start Date: 01/03/07 Status: Ordered DOK 100 mg oral tablet See Instructions, TAKE 1 TABLET BY MOUTH TWICE DAILY (STOOL SOFTENER EQUIVALENT), # 60 tablet, 5 Refills, [facility], 175.2, cm, 07/20/21 10:29:00 EDT, Height [...] Instructions Replace Required Details, Route toPharmacy Electronically, [facility], 175.2, cm... Start Date: 04/09/20 Status: Ordered fit to pt fit to pt, See Instructions, # 1 units, Refills 0, Tot. Refills 0, Maintenance, rigid cervical collar. Fit to pt., 06/21/18 15:59:47 EDT, Compound Start Date: 06/21/18 Status: Ordered Flomax 0.4 mg oral capsule 0.4, mg, 1, capsule, By Mouth, Daily, 0, 0, 01/03/07 9:24:42, Print ANNE-MARIE Number, [id number], Constant Indicator Start Date: 01/03/07 Status: Ordered [...] Gm, 11 Refills, Maintenance, 12/11/19 11:11:00 EST, [facility], APPLY TO EXTERNAL HEMMORRHOIDS TWICE DAILY PRN PER DR FREEMAN, 175.2, cm, 10/12/19 8:18:00 EST, Height,... Start Date: 12/11/19 Status: Ordered ibuprofen 400 mg oral tablet 400 mg, 1, tablet, By Mouth, 3 times a day, PRN, # 30 tablet, Refills 1, Tot. Refills 1, Maintenance, as needed for pain, 12/25/18 11:23:03 EST, Route to Pharmacy Electronically, [id number], [facility] Start Date: 12/25/18 Status: Ordered lactulose 10 gm/15 ml oral syrup = 20 Gm, By Mouth, Daily at bedtime, GIVE WITH., # 946 mL, 11 Refills, [facility], 31, TWO TABLESPOONFULS BY MOUTH DAILY [...] FOR ALLERGIC RHINITIS, Route to Pharmacy Electronically, [facility], 175.2, cm, 07/20/21 10:29:00 EDT, Height Start Date: 11/10/21 Status: Ordered Milk of Magnesia 8% oral suspension 30 mL, By Mouth, Daily at bedtime, FOR CONSTIPATION XXTY=9329 MG., # 900 mL, 5 Refills, [facility], 175.2, cm, 07/20/21 10:29:00 EDT, Height Start Date: 11/24/21 Status: Ordered omeprazole 40 mg oral enteric coated capsule See Instructions, TAKE 1 CAPSULE BY MOUTH DAILY FOR GERD IN AM, # 30 capsule, 2 Refills, [facility], 175.2, cm, 07/20/21 10:29:00 EDT, Height Start Date: 01/27/22 Status: Ordered polyethylene glycol 3350 oral powder for reconstitution See Instructions, MIX 17GM WITH 8 OUNCES OF WATER OR JUICE DAILY AT 5PM FOR CONSTIPATION (POLYETHYLENE GLYCOL), # 510 Gm, 11 Refills, [facility], 30, MIX 17GM WITH 8 OUNCES OF WATER OR JUICE DAILY AT 5PM FOR CONSTIPATION (POLYETHYLENE GLYCOL), 17... Start Date: 09/22/21 Status: Ordered pravastatin 40 mg oral tablet See Instructions, TAKE 1 TABLET BY MOUTH DAILY IN THE PM FOR HYPERLIPIDEMIA, # 30 tablet, 5 Refills, [facility], 175.2, cm, 07/20/21 10:29:00 EDT, Height Start Date: 11/09/21 Status: Ordered Robafen 100 mg/5 ml oral liquid 10 mL, By Mouth, 4 times a day, PRN NEEDED FOR COUGH/NOTIFY MD IF NO RELIEF AFTER 48 HRS / DOSE =, GUAIFENESIN (TUSSIN MUCUS-CONGEST 100MG/5ML., # 240 mL, 4 Refills, Acute 11/25/22 12:02:00 EST, 11/25/21 12:02:00 EST, [facility], 175.2, cm, 09... Start Date: 11/25/21 Stop Date: 11/25/22 Status: Ordered Shingrix intramuscular injection 0.5 mL, Intramuscular, Once, # 0.5 mL, 1 Refills, Soft Stop, 06/28/18 10:24:17 EDT Start Date: 06/28/18 Status: Ordered terbinafine 1% topical cream 1 application, Topically, 2 times a day, # 30 Gm, 0 Refills, Maintenance, 04/06/22 16:14:00 EDT, Cream, [facility], Partial fill upon patient request if [...] Raynaud's phenomenon(Confirmed) Active UI (urinary incontinence)(Confirmed) Active 07790; repeat 2020; repeat 2018 3egd 2012 barretts, repeat 2014 4egd 2010 positive barretts repeat 2011 5C2 6colonoscopy 2006 repeat 2016 7repeat 2024 [id number] Social History Social History Type Response Smoking Status Never smoker entered on: 06/25/16 Sex
--- OUTSIDE RECORDS SUMMARY | 2023-06-15 11:55 | XMS_ITS | Continuity of Care Document ---
Author Name Unknown Organization [facility] Chace lt Address [address] [place] [address]- Care Team Providers Care Registered Nurse Obstetrics Name Role Phone Brandon Freeman MD Primary Care Physician [phone] [facility]counter [facility] 03[facility]22 - 04/02/22 [facility] Adult [address] [place] [address]- Allergies, Adverse Reactions, Alerts Substance Reaction Severity [...] GIVEN 5Admin Note: [facility] 6Admin Note: ION Signature [facility] VIS [phone] given 7Admin Note: given in clinic 8Result Comment: Pt. already received on 08/07/2015 Medications bacitracin zinc 500 units/g topical ointment See Instructions, APPLY SMALL AMOUNT TOPICALLY TO SUPERFICIAL WOUNDS 4 TIMES A DAY NEEDED AN ANTIBACTERIAL / CALL MD IF USING FOR MORE THAN 7 DAYS, # 1 Gm, 11 Refills, Acute, [facility], 7, APPLY SMALL AMOUNT TOPICALLY TO [...] CONSTIPATION, # 7 supp, 11 Refills, [facility], 175.2, cm, 07/20/21 10:29:00 EDT, Height [...] INTESTINAL HEALTH., # 30 capsule, 11 Refills, [facility], 30, TAKE 1 CAPSULE BY MOUTH [...] GM, # 133 mL, 11 Refills, [facility], 5, ONE ENEMA PERRECTUM DAY 5 WITHOUT BOWEL MOVEMENT / IF NO RESULTS... Start Date: 03/16/22 Status: Ordered Ditropan XL 10 mg oral tablet, extended release 10, mg, 1, tablet, By Mouth, Daily, 0, 01/03/07 9:24:09, Print ANNE-MARIE Number, [id number], Constant Indicator Start Date: 01/03/07 Status: Ordered DOK 100 mg oral tablet See Instructions, TAKE 1 TABLET BY MOUTH TWICE DAILY (STOOL SOFTENER EQUIVALENT), # 60 tablet, 5 Refills, [facility], 175.2, cm, 07/20/21 10:29:00 EDT, Height [...] Instructions Replace Required Details, Route toPharmacy Electronically, [facility], 175.2, cm... Start Date: 04/09/20 Status: Ordered fit to pt fit to pt, See Instructions, # 1 units, Refills 0, Tot. Refills 0, Maintenance, rigid cervical collar. Fit to pt., 06/21/18 15:59:47 EDT, Compound Start Date: 06/21/18 Status: Ordered Flomax 0.4 mg oral capsule 0.4, mg, 1, capsule, By Mouth, Daily, 0, 0, 01/03/07 9:24:42, Print ANNE-MARIE Number, [id number], Constant Indicator Start Date: 01/03/07 Status: Ordered [...] Gm, 11 Refills, Maintenance, 12/11/19 11:11:00 EST, [facility], APPLY TO EXTERNAL HEMMORRHOIDS TWICE DAILY PRN PER DR FREEMAN, 175.2, cm, 10/12/19 8:18:00 EST, Height,... Start Date: 12/11/19 Status: Ordered ibuprofen 400 mg oral tablet 400 mg, 1, tablet, By Mouth, 3 times a day, PRN, # 30 tablet, Refills 1, Tot. Refills 1, Maintenance, as needed for pain, 12/25/18 11:23:03 EST, Route to Pharmacy Electronically, [id number], [facility] Start Date: 12/25/18 Status: Ordered lactulose 10 gm/15 ml oral syrup = 20 Gm, By Mouth, Daily at bedtime, GIVE WITH., # 946 mL, 11 Refills, [facility], 31, TWO TABLESPOONFULS BY MOUTH DAILY [...] ALLERGIC RHINITIS, Route to Pharmacy Electronically, [facility], 175.2, cm, 07/20/21 10:29:00 EDT, Height Start Date: 11/10/21 Status: Ordered Milk of Magnesia 8% oral suspension 30 mL, By Mouth, Daily at bedtime, FOR CONSTIPATION HCFV=8724 MG., # 900 mL, 5 Refills, [facility], 175.2, cm, 07/20/21 10:29:00 EDT, Height Start Date: 11/24/21 Status: Ordered omeprazole 40 mg oral enteric coated capsule See Instructions, TAKE 1 CAPSULE BY MOUTH DAILY FOR GERD IN AM, # 30 capsule, 2 Refills, [facility], 175.2, cm, 07/20/21 10:29:00 EDT, Height Start Date: 01/27/22 Status: Ordered polyethylene glycol 3350 oral powder for reconstitution See Instructions, MIX 17GM WITH 8 OUNCES OF WATER OR JUICE DAILY AT 5PM FOR CONSTIPATION (POLYETHYLENE GLYCOL), # 510 Gm, 11 Refills, [facility], 30, MIX 17GM WITH 8 OUNCES OF WATER OR JUICE DAILY AT 5PM FOR CONSTIPATION (POLYETHYLENE GLYCOL), 17... Start Date: 09/22/21 Status: Ordered pravastatin 40 mg oral tablet See Instructions, TAKE 1 TABLET BY MOUTH DAILY IN THE PM FOR HYPERLIPIDEMIA, # 30 tablet, 5 Refills, [facility], 175.2, cm, 07/20/21 10:29:00 EDT, Height Start Date: 11/09/21 Status: Ordered Robafen 100 mg/5 ml oral liquid 10 mL, By Mouth, 4 times a day, PRN NEEDED FOR COUGH/NOTIFY MD IF NO RELIEF AFTER 48 HRS / DOSE =, GUAIFENESIN (TUSSIN MUCUS-CONGEST 100MG/5ML., # 240 mL, 4 Refills, Acute 11/25/22 12:02:00 EST, 11/25/21 12:02:00 EST, [facility], 175.2, cm, 09... Start Date: 11/25/21 [...] SUPPLEMENT, # 30 tablet, 5 Refills, [facility], 30, TAKE 1 TABLET BY MOUTH [...] Raynaud's phenomenon(Confirmed) Active UI (urinary incontinence)(Confirmed) Active 55265; repeat 2020; repeat 2017 3egd 2012 barretts, repeat 2014 4egd 2009 positive barretts repeat 2011 5C2 6colonoscopy 2007 nl repeat 2016 7repeat 2024 [id number] Social History Social History Type Response Smoking Status Never smoker entered on: 06/25/16 Sex
--- OUTSIDE RECORDS SUMMARY | 2023-06-15 11:55 | XMS_ITS | Continuity of Care Document ---
Author Name Unknown Organization [facility] Address [address], [address] [place] [address]- Care Team Providers Care Wallpaper Scraper Name Role Phone Brandon Freeman MD Primary Care Physician Encounter 09/16/22 - 09/23/22 [facility] [address], [address] [place], [place] [address] Attending Physician: Brandon Freeman MD Admitting Physician: Brandon Freeman MD Referring Physician: Brandon Freeman MD Allergies, Adverse Reactions, Alerts Substance Reaction Severity Status azithromycin Active macrolide antibiotics Active Dust Active ketolides Active Immunizations Given and Recorded Vaccine Date Status Refusal Reason [id number] 12y+ bivalent booster vax 07/22/22 Recorded tetanus-diphtheria [...] clinic 5Admin Note: [facility]U CLINIC 6Admin Note: [employer] [facility] VIS [id number] given 7Admin Note: given in clinic 8Result [...] CONSTIPATION, # 7 supp, 11 Refills, [facility], 175.2, cm, 07/20/21 10:29:00 EDT, Height [...] 30 capsule, 11 Refills, Maintenance, 07/29/2211:36:00 EDT, [facility], 30, 1 capsule By Mouth Daily,Instr:FOR [...] GM, # 133 mL, 11 Refills, [facility], 5, ONE ENEMA PERRECTUM DAY 5 WITHOUT BOWEL MOVEMENT / IF NO RESULTS... Start Date: 03/16/22 Status: Ordered Ditropan XL 10 mg oral tablet, extended release 10, mg, 1, tablet, By Mouth, Daily, 0, 01/03/07 9:24:09, Print ANNE-MARIE Number, [phone], Constant Indicator Start Date: 01/03/07 Status: Ordered DOK 100 mg oral tablet See Instructions, TAKE 1 TABLET BY MOUTH TWICE DAILY (STOOL SOFTENER EQUIVALENT), # 60 tablet, 5 Refills, Maintenance, 08/12/22 9:24:00 EDT, [facility], 175.2, cm, 07/27/22 11:37:00 EDT, Height [...] Instructions Replace Required Details, Route toPharmacy Electronically, [facility], 175.2, cm... Start Date: 04/09/20 Status: Ordered fit to pt fit to pt, See Instructions, # 1 units, Refills 0, Tot. Refills 0, Maintenance, rigid cervical collar. Fit to pt., 06/21/18 15:59:47 EDT, Compound Start Date: 06/21/18 Status: Ordered Flomax 0.4 mg oral capsule 0.4, mg, 1, capsule, By Mouth, Daily, 0, 0, 01/03/07 9:24:42, Print ANNE-MARIE Number, [id number], Constant Indicator Start Date: 01/03/07 Status: Ordered [...] Gm, 11 Refills, Maintenance, 12/11/19 11:11:00 EST, [facility], APPLY TO EXTERNAL HEMMORRHOIDS TWICE DAILY PRN PER DR FREEMAN, 175.2, cm, 10/12/19 8:18:00 EST, Height,... Start Date: 12/11/19 Status: Ordered ibuprofen 400 mg oral tablet 400 mg, 1, tablet, By Mouth, 3 times a day, PRN, # 30 tablet, Refills 1, Tot. Refills 1, Maintenance, as needed for pain, 12/25/18 11:23:03 EST, Route to Pharmacy Electronically, [id number], [facility] Start Date: 12/25/18 Status: Ordered lactulose 10 gm/15 ml oral syrup = 20 Gm, By Mouth, Daily at bedtime, # 946 mL, 11 Refills, Maintenance, 09/01/22 7:18:00 EDT, [facility], 31, 20 Gm By Mouth Daily [...] ALLERGIC RHINITIS, Route to Pharmacy Electronically, [facility], 175.2, cm, 07/20/21 10:29:00 EDT, Height Start Date: 11/10/21 Status: Ordered Milk of Magnesia 8% oral suspension 30 mL, By Mouth, Daily at bedtime, FOR CONSTIPATION DTFA=3122 MG., # 900 mL, 5 Refills, Maintenance, 07/01/22 13:24:00 EDT, [facility], 175.2, cm, 04/15/22 9:44:00 EDT, Height Start Date: 07/01/22 Status: Ordered omeprazole 40 mg oral enteric coated capsule See Instructions, TAKE 1 CAPSULE BY MOUTH DAILY FOR GERD IN AM, # 30 capsule, 2 Refills, Maintenance, 08/05/22 12:48:00 EDT, [facility], 175.2, cm, 07/27/22 11:37:00 EDT, Height Start Date: 08/05/22 Status: Ordered polyethylene glycol 3350 oral powder for reconstitution See Instructions, MIX 17GM WITH 8 OUNCES OF WATER OR JUICE DAILY AT 5PM FOR CONSTIPATION (POLYETHYLENE GLYCOL), # 510 Gm, 11 Refills, [facility], 30, MIX 17GM WITH 8 OUNCES OF WATER OR JUICE DAILY AT 5PM FOR CONSTIPATION (POLYETHYLENE GLYCOL), 17... Start Date: 09/22/21 Status: Ordered pravastatin 40 mg oral tablet See Instructions, TAKE 1 TABLET BY MOUTH DAILY IN THE PM FOR HYPERLIPIDEMIA, # 30 tablet, 5 Refills, [facility], 175.2, cm, 04/15/22 9:44:00 EDT, Height Start Date: 05/25/22 Status: Ordered Robafen 100 mg/5 ml oral liquid 10 mL, By Mouth, 4 times a day, PRN NEEDED FOR COUGH/NOTIFY MD IF NO RELIEF AFTER 48 HRS / DOSE =, GUAIFENESIN (TUSSIN MUCUS-CONGEST 100MG/5ML., # 240 mL, 4 Refills, Acute 11/25/22 12:02:00 EST, 11/25/21 12:02:00 EST, [facility], 175.2, cm, 09... Start Date: 11/25/21 [...] Confirmed Active UI (urinary incontinence) Confirmed Active 19262; repeat 202015; repeat 2018 3egd 2012 barretts, repeat 2014 4egd 2009 positive barretts repeat 2012 5C2 6colonoscopy 2007 nl repeat 2016 7repeat 2024 [id number] Social History Social History Type Response Smoking Status Never smoker entered on: 06/25/16 Sex Patient Care team information Care Team Personnel Name: Hannah Roque RN Position: [facility] RN Member Role: Primary Care Nurse Name: Rgegie Godinez RN Position: S RN Member Role: Primary Care Nurse Name: Christiane Cedillo RN Position: S RN Member Role: Primary Care Nurse Name: Brandon Freeman MD Position: [facility] Primary Care Physician Member Role: PCP Address: Address: [address] [place] [address]- [place] Name: Janeen Hoskins RN Position: [facility] RN Member Role: Primary Care Nurse Name: Cydney Mckinney RN Position: [facility] RN Member Role: Primary Care Nurse Name: Frantz Mi III, RN Position: [facility] RN Member Role: Primary Care Nurse Name: Tahmina CASHIER GENERAL, Cate Melgar Position: Reference Physician Member Role: Primary Care Nurse Address: Address: [address] [place] [address]- [place] Name: Fay Morton RN Position: [facility] RN Member Role: Primary Care Nurse Name: Massiel Lu RN Position: [facility] RN Member Role: Primary Care Nurse Name: Lurdes Mujica RN Position: [facility] RN Member Role: Primary Care Nurse Name: Brandie Horvath RN Position: [facility] Emergency Department Manager Member Role: Primary Care Nurse Name: Claribel Howe RN Position: [facility] RN Member Role: Primary Care Nurse Care Team Related Persons Name: JOHAN PERKINS Name: DAWOOD DE LOS SANTOS Address: home [address] [address] Name: JENNIFER JUAREZ Address: [address] [place] [address]
--- OUTSIDE RECORDS SUMMARY | 2023-06-15 11:56 | XMS_ITS | Continuity of Care Document ---
Author Name Unknown Organization [facility] Address [address] [place] [address]- Care Team Providers Care Cook Larder Name Role Phone Brandon Freeman MD Primary Care Physician [facility] Date[facility]s): 07/28/22 - 08/27/22 [facility] Adult [address] [place] [address]- Allergies, Adverse Reactions, Alerts Substance Reaction Severity Status azithromycin Active macrolide antibiotics Active Dust Active ketolides Active Immunizations Given and Recorded Vaccine Date Status Refusal Reason [id number] 12y+ bivalent booster vax 07/22/22 Recorded tetanus-diphtheria [...] clinic 5Admin Note: [facility] 6Admin Note: [facility] VIS [id number] given 7Admin Note: given in clinic 8Result Comment: Pt. already received on 08/07/2015 Medications bacitracin zinc 500 units/g topical ointment See Instructions, APPLY SMALL AMOUNT TOPICALLY TO SUPERFICIAL WOUNDS 4 TIMES A DAY NEEDED AN ANTIBACTERIAL / CALL MD IF USING FOR MORE THAN 7 DAYS, # 1 Gm, 11 Refills, Acute, [facility], 7, APPLY SMALL AMOUNT TOPICALLY TO [...] FOR CONSTIPATION, # 7 supp, 11 Refills, [facility], 175.2, cm, 07/20/21 10:29:00 EDT, Height [...] 30 capsule, 11 Refills, Maintenance, 07/29/2211:36:00 EDT, [facility], 30, 1 capsule By Mouth Daily,Instr:FOR [...] 19 GM, # 133 mL, 11 Refills, [facility], 5, ONE ENEMA PERRECTUM DAY 5 WITHOUT BOWEL MOVEMENT / IF NO RESULTS... Start Date: 03/16/22 Status: Ordered Ditropan XL 10 mg oral tablet, extended release 10, mg, 1, tablet, By Mouth, Daily, 0, 01/03/07 9:24:09, Print ANNE-MARIE Number, [id number], Constant Indicator Start Date: 01/03/07 Status: Ordered DOK 100 mg oral tablet See Instructions, TAKE 1 TABLET BY MOUTH TWICE DAILY (STOOL SOFTENER EQUIVALENT), # 60 tablet, 5 Refills, Maintenance, 08/12/22 9:24:00 EDT, [facility], 175.2, cm, 07/27/22 11:37:00 EDT, Height [...] Instructions Replace Required Details, Route toPharmacy Electronically, [facility], 175.2, cm... Start Date: 04/09/20 Status: Ordered fit to pt fit to pt, See Instructions, # 1 units, Refills 0, Tot. Refills 0, Maintenance, rigid cervical collar. Fit to pt., 06/21/18 15:59:47 EDT, Compound Start Date: 06/21/18 Status: Ordered Flomax 0.4 mg oral capsule 0.4, mg, 1, capsule, By Mouth, Daily, 0, 0, 01/03/07 9:24:42, Print ANNE-MARIE Number, [phone], Constant Indicator Start Date: 01/03/07 Status: Ordered hydrochlorothiazide 25 mg oral tablet See Instructions, TAKE 1 TAB BY MOUTH DAILY IN AM FOR HTN/MONITOR BP/IF SYSTOLIC MORE THAN 160, DIASTOLIC MORE THAN 100, SYSTOLIC LESS THAN 90, OR DIASTOLIC LESS THAN 50 CALLVT, # 30 tablet, Refills 2, Instructions Replace [...] Gm, 11 Refills, Maintenance, 12/11/19 11:11:00 EST, [facility], APPLY TO EXTERNAL HEMMORRHOIDS TWICE DAILY PRN PER DR FREEMAN, 175.2, cm, 10/12/19 8:18:00 EST, Height,... Start Date: 12/11/19 Status: Ordered ibuprofen 400 mg oral tablet 400 mg, 1, tablet, By Mouth, 3 times a day, PRN, # 30 tablet, Refills 1, Tot. Refills 1, Maintenance, as needed for pain, 12/25/18 11:23:03 EST, Route to Pharmacy Electronically, [id number], [facility] Start Date: 12/25/18 Status: Ordered lactulose 10 gm/15 ml oral syrup = 20 Gm, By Mouth, Daily at bedtime, GIVE WITH., # 946 mL, 11 Refills, [facility], 31, TWO TABLESPOONFULS BY MOUTH DAILY [...] FOR ALLERGIC RHINITIS, Route to Pharmacy Electronically, [facility], 175.2, cm, 07/20/21 10:29:00 EDT, Height Start Date: 11/10/21 Status: Ordered Milk of Magnesia 8% oral suspension 30 mL, By Mouth, Daily at bedtime, FOR CONSTIPATION MIGZ=8058 MG., # 900 mL, 5 Refills, Maintenance, 07/01/22 13:24:00 EDT, [facility], 175.2, cm, 04/15/22 9:44:00 EDT, Height Start Date: 07/01/22 Status: Ordered omeprazole 40 mg oral enteric coated capsule See Instructions, TAKE 1 CAPSULE BY MOUTH DAILY FOR GERD IN AM, # 30 capsule, 2 Refills, Maintenance, 08/05/22 12:48:00 EDT, [facility], 175.2, cm, 07/27/22 11:37:00 EDT, Height Start Date: 08/05/22 Status: Ordered polyethylene glycol 3350 oral powder for reconstitution See Instructions, MIX 17GM WITH 8 OUNCES OF WATER OR JUICE DAILY AT 5PM FOR CONSTIPATION (POLYETHYLENE GLYCOL), # 510 Gm, 11 Refills, [facility], 30, MIX 17GM WITH 8 OUNCES OF WATER OR JUICE DAILY AT 5PM FOR CONSTIPATION (POLYETHYLENE GLYCOL), 17... Start Date: 09/22/21 Status: Ordered pravastatin 40 mg oral tablet See Instructions, TAKE 1 TABLET BY MOUTH DAILY IN THE PM FOR HYPERLIPIDEMIA, # 30 tablet, 5 Refills, [facility], 175.2, cm, 04/15/22 9:44:00 EDT, Height Start Date: 05/25/22 Status: Ordered Robafen 100 mg/5 ml oral liquid 10 mL, By Mouth, 4 times a day, PRN NEEDED FOR COUGH/NOTIFY MD IF NO RELIEF AFTER 48 HRS / DOSE =, GUAIFENESIN (TUSSIN MUCUS-CONGEST 100MG/5ML., # 240 mL, 4 Refills, Acute 11/25/22 12:02:00 EST, 11/25/21 12:02:00 EST, [facility], 175.2, cm, 09... Start Date: 11/25/21 [...] VITAMIN SUPPLEMENT, # 30 tablet, 5 Refills, [facility], 30, TAKE 1 TABLET BY MOUTH [...] Confirmed Active UI (urinary incontinence) Confirmed Active 71751; repeat 202015; repeat 2017 3egd 2012 barretts, repeat 2014 4egd 2009 positive barretts repeat 2011 5C2 6colonoscopy 2007 nl repeat 2016 7repeat 2024 [id number] Social History Social History Type Response Smoking Status Never smoker entered on: 06/25/16 Sex Patient Care team information Personnel Name: La MAD[place], Brandon Chamorro Address: Address: [address] [place] [id number]
--- OUTSIDE RECORDS SUMMARY | 2023-06-15 11:56 | XMS_ITS | Continuity of Care Document ---
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 Golf Coach Name Role Phone Brandon Freeman MD Primary Care Physician [phone] [facility]counter [facility] 05[facility]20 - 06/05/20 [facility] Adult [address] [place] [address] Allergies, Adverse Reactions, Alerts Substance Reaction Severity [...] GIVEN 3Admin Note: [facility] CLINIC 4Admin Note: [facility] VIS [id number] given 5Admin Note: given by lisy short [...] CONSTIPATION, # 7 supp, 11 Refills, Acute, [facility], 175.2, cm, 10/12/19 8:18:00 EST, Height [...] capsule, 4 Refills, Acute, 02/28/20 12:34:00 EDT, [facility], 30, TAKE 1 CAPSULE BY MOUTH [...] Replace Required Details, Route to Pharmacy Electronically, [facility]... Start Date: 11/05/19 Status: Ordered Ditropan XL 10 mg oral tablet, extended release 10, mg, 1, tablet, By Mouth, Daily, 0, 01/03/07 9:24:09, Print ANNE-MARIE Number, [phone], Constant Indicator Start Date: 01/03/07 Status: Ordered DOK 100 mg oral tablet See Instructions, TAKE 1 TABLET BY MOUTH TWICE DAILY (STOOL SOFTENER EQUIVALENT), # 60 tablet, 5 Refills, Soft Stop, 05/08/20 13:17:00 EDT, [facility], 175.2, cm, 10/12/19 8:18:00 EST, Height, [...] Instructions Replace Required Details, Route toPharmacy Electronically, [facility], 175.2, cm... Start Date: 04/09/20 Status: [...] 0, 0, 01/03/07 9:24:42, Print ANNE-MARIE Number, [id number], Constant Indicator Start Date: 01/03/07 Status: Ordered [...] 12/25/18 11:23:03 EST, Route to Pharmacy Electronically, [id number], [facility] Start Date: 12/25/18 Status: Ordered lactulose 10 gm/15 ml oral syrup See Instructions, # 946 mL, Refills 9 Tot. Refills 9, TWO TABLESPOONFULS BY MOUTH DAILY AT BEDTIME FOR CONSTIPATION / GIVE WITH LIQUIDS JUICE/WATER / 2 TBSP = 30 ML DOSE = 20 GRAMS, [facility] Start Date: 08/10/19 Status: Ordered loratadine 10 mg oral tablet 10 mg, 1, tablet, By Mouth, Daily, PER DR FREEMAN, # 30 tablet, Refills 11, Tot. Refills 11, 02/19/20 9:46:00 EDT, Route to Pharmacy Electronically, [facility], 175.2, cm, 10/12/19 8:18:00 EST, Height, 73.2, kg, 03/05/18 17:34:00 EDT, Dry Weight Start Date: 02/19/20 Status: Ordered Milk of Magnesia 8% oral suspension 30 mL = 2.4 Gm, By Mouth, Daily at bedtime, # 900 mL, 5 Refills, Maintenance, 02/20/20 12:44:00 EDT, [facility], 175.2, cm, 10/12/19 8:18:00 EST, Height, 73.2, kg, 03/05/18 17:34:00 EDT, Dry Weight Start Date: 02/20/20 Stop Date: 08/18/20 Status: Ordered omeprazole 20 mg oral enteric coated capsule 1 capsule = 20 mg, By Mouth, 2 times a day, # 30 capsule, 11 Refills, Soft Stop, 05/07/20 17:03:00 EDT, [facility], 175.2, cm, 10/12/19 8:18:00 EST, Height, [...] Raynaud's phenomenon(Confirmed) Active UI (urinary incontinence)(Confirmed) Active 20963; repeat 2020; repeat 2017 3egd 2012 barretts, repeat 2014 4egd 2010 positive barretts repeat 2012 5C2 6colonoscopy 2007 nl repeat 2016 7repeat 2024 26140 Social History Social History Type Response Smoking Status Never smoker entered on: 06/25/16 Sex
--- OUTSIDE RECORDS SUMMARY | 2023-06-15 11:56 | XMS_ITS | Continuity of Care Document ---
Author Name Unknown Organization [facility] Chace lt Address [address] [place] [address]- Care Team Providers Care Customer Service Clerk Name Role Phone Brandon Freeman MD Primary Care Physician [facility]): 09/29/22 - 10/29/22 [facility] Adult [address] [place] [address]- Allergies, Adverse Reactions, Alerts Substance Reaction Severity Status azithromycin Active macrolide antibiotics Active ketolides Active Dust Active Immunizations Given and Recorded Vaccine Date Status Refusal Reason [id number] 12y+ bivalent booster vax 07/22/22 Recorded tetanus-diphtheria [...] clinic 5Admin Note: [facility] 6Admin Note: [facility] VIS [id number] given 7Admin Note: given in clinic 8Result Comment: Pt. already received on 08/07/2015 Medications bacitracin zinc 500 units/g topical ointment See Instructions, APPLY SMALL AMOUNT TOPICALLY TO SUPERFICIAL WOUNDS 4 TIMES A DAY NEEDED AN ANTIBACTERIAL / CALL MD IF USING FOR MORE THAN 7 DAYS, # 1 Gm, 11 Refills, Acute, [facility], 7, APPLY SMALL AMOUNT TOPICALLY TO [...] FOR CONSTIPATION, # 7 supp, 11 Refills, [facility], 175.2, cm, 07/20/21 10:29:00 EDT, Height [...] 30 capsule, 11 Refills, Maintenance, 07/29/2211:36:00 EDT, [facility], 30, 1 capsule By Mouth Daily,Instr:FOR [...] 19 GM, # 133 mL, 11 Refills, [facility], 5, ONE ENEMA PERRECTUM DAY 5 WITHOUT BOWEL MOVEMENT / IF NO RESULTS... Start Date: 03/16/22 Status: Ordered Ditropan XL 10 mg oral tablet, extended release 10, mg, 1, tablet, By Mouth, Daily, 0, 01/03/07 9:24:09, Print ANNE-MARIE Number, [id number], Constant Indicator Start Date: 01/03/07 Status: Ordered DOK 100 mg oral tablet See Instructions, TAKE 1 TABLET BY MOUTH TWICE DAILY (STOOL SOFTENER EQUIVALENT), # 60 tablet, 5 Refills, Maintenance, 08/12/22 9:24:00 EDT, [facility], 175.2, cm, 07/27/22 11:37:00 EDT, Height [...] Instructions Replace Required Details, Route toPharmacy Electronically, [facility], 175.2, cm... Start Date: 04/09/20 Status: Ordered fit to pt fit to pt, See Instructions, # 1 units, Refills 0, Tot. Refills 0, Maintenance, rigid cervical collar. Fit to pt., 06/21/18 15:59:47 EDT, Compound Start Date: 06/21/18 Status: Ordered Flomax 0.4 mg oral capsule 0.4, mg, 1, capsule, By Mouth, Daily, 0, 0, 01/03/07 9:24:42, Print ANNE-MARIE Number, [id number], Constant Indicator Start Date: 01/03/07 Status: Ordered hydrochlorothiazide 25 mg oral tablet See Instructions, TAKE 1 TAB BY MOUTH DAILY IN AM FOR HTN/MONITOR BP/IF SYSTOLIC MORE THAN 160, DIASTOLIC MORE THAN 100, SYSTOLIC LESS THAN 90, OR DIASTOLIC LESS THAN 50 CALLOR, # 30 tablet, Refills 5, Maintenance, 09/16/22 [...] Gm, 11 Refills, Maintenance, 12/11/19 11:11:00 EST, [facility], APPLY TO EXTERNAL HEMMORRHOIDS TWICE DAILY PRN PER DR FREEMAN, 175.2, cm, 10/12/19 8:18:00 EST, Height,... Start Date: 12/11/19 Status: Ordered ibuprofen 400 mg oral tablet 400 mg, 1, tablet, By Mouth, 3 times a day, PRN, # 30 tablet, Refills 1, Tot. Refills 1, Maintenance, as needed for pain, 12/25/18 11:23:03 EST, Route to Pharmacy Electronically, [id number], [facility] Start Date: 12/25/18 Status: Ordered lactulose 10 gm/15 ml oral syrup = 20 Gm, By Mouth, Daily at bedtime, # 946 mL, 11 Refills, Maintenance, 09/01/22 7:18:00 EDT, [facility], 31, 20 Gm By Mouth Daily [...] FOR ALLERGIC RHINITIS, Route to Pharmacy Electronically, [facility], 175.2, cm, 07/20/21 10:29:00 EDT, Height Start Date: 11/10/21 Status: Ordered Milk of Magnesia 8% oral suspension 30 mL, By Mouth, Daily at bedtime, FOR CONSTIPATION FSZO=9852 MG., # 900 mL, 5 Refills, Maintenance, 07/01/22 13:24:00 EDT, [facility], 175.2, cm, 04/15/22 9:44:00 EDT, Height Start Date: 07/01/22 Status: Ordered omeprazole 40 mg oral enteric coated capsule See Instructions, TAKE 1 CAPSULE BY MOUTH DAILY FOR GERD IN AM, # 30 capsule, 2 Refills, Maintenance, 08/05/22 12:48:00 EDT, [facility], 175.2, cm, 07/27/22 11:37:00 EDT, Height Start Date: 08/05/22 Status: Ordered polyethylene glycol 3350 oral powder for reconstitution See Instructions, MIX 17GM WITH 8 OUNCES OF WATER OR JUICE DAILY AT 5PM FOR CONSTIPATION (POLYETHYLENE GLYCOL), # 510 Gm, 11 Refills, Physician Stop 10/07/23 11:17:00 EST, 10/07/22 11:17:00 EST, [facility], 30, MIX 17GM WITH 8 OUNCES OF WATER OR... Start Date: 10/07/22 Stop Date: 10/07/23 Status: Ordered pravastatin 40 mg oral tablet See Instructions, TAKE 1 TABLET BY MOUTH DAILY IN THE PM FOR HYPERLIPIDEMIA, # 30 tablet, 5 Refills, [facility], 175.2, cm, 04/15/22 9:44:00 EDT, Height Start Date: 05/25/22 Status: Ordered Robafen 100 mg/5 ml oral liquid 10 mL, By Mouth, 4 times a day, PRN NEEDED FOR COUGH/NOTIFY MD IF NO RELIEF AFTER 48 HRS / DOSE =, GUAIFENESIN (TUSSIN MUCUS-CONGEST 100MG/5ML., # 240 mL, 4 Refills, Acute 11/25/22 12:02:00 EST, 11/25/21 12:02:00 EST, [facility], 175.2, cm, 09... Start Date: 11/25/21 Stop Date: 11/25/22 Status: Ordered Shingrix intramuscular injection 0.5 mL, Intramuscular, Once, # 0.5 mL, 1 Refills, Soft Stop, 06/28/18 10:24:17 EDT Start Date: 06/28/18 Status: Ordered terbinafine 1% topical cream 1 application, Topically, 2 times a day, # 30 Gm, 1 Refills, Maintenance, 05/11/22 14:45:00 EDT, Cream, [facility], Partial fill upon patient request if [...] 30 tablet, 5 Refills, 10/05/22 11:07:00 EST, [facility], 30, TAKE 1 TABLET BY MOUTH [...] Confirmed Active UI (urinary incontinence) Confirmed Active 13576; repeat 2020 59554; repeat 2018 3egd 2012 barretts, repeat 2014 4egd 2010 positive barretts repeat 2011 5C2 6colonoscopy 2006 nl repeat 2017 7repeat 2024 [id number] Social History Social History Type Response Smoking Status Never smoker entered on: 06/25/16 Sex Patient Care team information Care Team Personnel Name: Hannah Roque RN Position: S RN Member Role: Primary Care Nurse Name: Reggie Godinez RN Position: S RN Member Role: Primary Care Nurse Name: Christiane Cedillo RN Position: S RN Member Role: Primary Care Nurse Name: Brandon Freeman MD Position: [facility] Primary Care Physician Member Role: PCP Address: Address: [address] [place] [address]- [place] Name: Janeen Hoskins RN Position: [facility] RN Member Role: Primary Care Nurse Name: Cydney Mckinney RN Position: [facility] RN Member Role: Primary Care Nurse Name: Frantz Mi III, RN Position: [facility] RN Member Role: Primary Care Nurse Name: Cate Martel NP Position: Reference Physician Member Role: Primary Care Nurse Address: Address: [address] [place] [id number]- [place] Name: Fay Morton RN Position: [facility] RN Member Role: Primary Care Nurse Name: Massiel Lu RN Position: [facility] RN Member Role: Primary Care Nurse Name: Lurdes Mujica RN Position: [facility] RN Member Role: Primary Care Nurse Name: Brandie Horvath RN Position: [facility] Telephone Plant Power Operator Member Role: Primary Care Nurse Name: Claribel Howe RN Position: [facility] SN RN Member Role: Primary Care Nurse Care Team Related Persons Name: JOHAN PERKINS Name: DAWOOD DE LOS SANTOS Address: home [address] [place] [id number] Name: JENNIFER JUAREZ Address: [address] [place] [address]
--- OUTSIDE RECORDS SUMMARY | 2023-06-15 11:56 | XMS_ITS | Continuity of Care Document ---
Author Name Unknown Organization [facility] Chace lt Address [address] [place] [address]- Care Team Providers Care Planimeter Operator Name Role Phone Brandon Freeman MD Primary Care Physician [facility] 10[facility]12[facility]19 - 10/19/19 [facility] Adult [address] [place] [address]- [facility] Encounter Diagnosis Fall at home(Discharge Diagnosis) - 10/12/19 Neck pain(Discharge Diagnosis) - 10/12/19 Attending Physician: Not on Staff, Attending MD [...] GIVEN 3Admin Note: [facility]U CLINIC 4Admin Note: [employer] [facility] VIS [phone] given 5Admin Note: given by lisy doc [...] to eye exam per Dr. Freeman FAX [phone], # 1tablet, Refills 5, Tot. Refills 5, Maintenance, for anxiety, 12/14/18 10:02:40 EST, Instructions Replace Required Details, Print Requisition Start Date: 12/14/18 Status: Ordered Ditropan XL 10 mg oral tablet, extended release 10, mg, 1, tablet, By Mouth, Daily, 0, 01/03/07 9:24:09, Print ANNE-MARIE Number, [id number], Constant Indicator Start Date: 01/03/07 Status: Ordered [...] Instructions Replace Required Details, Route toPharmacy Electronically, [id number]... Start Date: 09/12/19 Status: Ordered fit to [...] 0, 0, 01/03/07 9:24:42, Print ANNE-MARIE Number, [id number], Constant Indicator Start Date: 01/03/07 Status: Ordered [...] < 90 OR DIASTOLIC < [facility] Start Date: 06/18/19 Status: Ordered [...] 12/25/18 11:23:03 EST, Route to Pharmacy Electronically, [id number], [facility] Start Date: 12/25/18 Status: Ordered lactulose 10 gm/15 ml oral syrup See Instructions, # 946 mL, Refills 9 Tot. Refills 9, TWO TABLESPOONFULS BY MOUTH DAILY AT BEDTIME FOR CONSTIPATION / GIVE WITH LIQUIDS JUICE/WATER / 2 TBSP = 30 ML DOSE = 20 GRAMS, [facility] Start Date: 08/10/19 Status: Ordered loperamide 2 mg oral capsule 2 mg, 1, capsule, By Mouth, Every 4 hours, PRN, PER DR FREEMAN, # 60 capsule, Refills 2, Tot. Refills 2, Maintenance, for loose stool, 04/19/18 14:09:09 EDT, Route to Pharmacy Electronically, [id number], [facility] Start Date: 04/19/18 Status: Ordered loratadine 10 mg oral tablet 10 mg, 1, tablet, By Mouth, Daily, PER DR FREEMAN, # 30 tablet, Refills 11, Tot. Refills 11, 04/19/18 14:20:42 EDT, Route to Pharmacy Electronically, [id number], [facility] Start Date: 04/19/18 Status: Ordered Milk [...] BY MOUTH DAILY IN THE PM FORHYPERLIPIDEMIA, [facility] Start Date: 05/28/19 Status: Ordered Shingrix [...] 02/19/19 15:18:44 EDT, Route to Pharmacy Electronically, [id number], [facility] Start Date: 02/19/19 Status: Ordered Problem [...] Raynaud's phenomenon(Confirmed) Active UI (urinary incontinence)(Confirmed) Active 85343; repeat 2020; repeat 2017 3egd 2011 barretts, repeat 2014 4egd 2009 positive barretts repeat 2011 5C2 6colonoscopy 2006 nl repeat 2016 7repeat 2024 99521 Diagnosis Diagnosis Type Effective Dates Health Status Cl inical Service Informant Fall at home Discharge Diagnosis 10/12/19 Neck pain Discharge Diagnosis 10/12/19 Vital Signs Most recent to oldest [Reference Range]: 1 Height 175.2 cm (10/12/19 8:18 AM) Weight 92.2 kg (10/12/19 8:18 AM) Oxygen Saturation [94-100 %] 93 % *L* (10/12/19 8:18 AM) Pulse Rate [55-90 bpm] 60 bpm (10/12/19 8:18 AM) Body Mass Index [18.5-24.99] 30.04 *>HHI* (10/12/19 8:18 AM) Blood Pressure [90-138/55-84 mm Hg] 124/ 64mm Hg (10/12/19 8:18 AM) Blood pressure sites Arm, right (10/12/19 8:18 AM) Social History Social History Type Response Smoking Status Never smoker entered on: 06/25/16 Sex
--- OUTSIDE RECORDS SUMMARY | 2023-06-15 11:56 | XMS_ITS | Continuity of Care Document ---
Author Name Unknown Organization [facility] Chace lt Address [address] [place] [address]- Care Team Providers Care Enamel Shader Name Role Phone Brandon Freeman MD Primary Care Physician [facility]): 05/04[facility]23 - 06/03/23 [facility] Adult [address] [place] [address]- Allergies, Adverse Reactions, Alerts Substance Reaction Severity Status azithromycin Active macrolide antibiotics Active Dust Active ketolides Active Immunizations Given and Recorded Vaccine Date Status Refusal Reason [id number] 12y+ bivalent booster vax 07/22/22 Recorded tetanus-diphtheria [...] clinic 5Admin Note: FLU CLINIC 6Admin Note: [facility] VIS [phone] given 7Admin Note: given in clinic 8Result Comment: Pt. already received on 08/07/2015 Medications acetaminophen 325 mg oral tablet 2, tablet, By Mouth, Every 6 hours, PRN, [id number]., # 60 tablet, Refills 0, Maintenance, NEEDED FOR FEVER>100.5 OR PAIN SHOWN BY FACIAL GRIMACE NOTIFY MD IF USED >, 11/12/22 9:30:00 EST, Route to Pharmacy Electronically, [facility], 175.2, c... Start Date: 11/12/22 Stop Date: 11/15/22 Status: Ordered bacitracin zinc 500 units/g topical ointment See Instructions, APPLY SMALL AMOUNT TOPICALLY TO SUPERFICIAL WOUNDS 4 TIMES A DAY NEEDED AN ANTIBACTERIAL / CALL MD IF USING FOR MORE THAN 7 DAYS, # 28 Gm, 11 Refills, Maintenance, 11/09/22 15:57:00 EST, [facility], 7, APPLY SMALL AMOUNT T... Start [...] supp, 11 Refills, Maintenance, 12/16/22 13:35:00 EST, [facility], 175.2, cm, 07/27/22 11:37:00 EDT, Height [...] 30 SEC... Start Date: 10/26/18 Status: Ordered CultureDiaDerma [facility] oral capsule 1 capsule, By Mouth, Daily, FOR INTESTINAL HEALTH., # 30 capsule, 11 Refills, Maintenance, 07/29/2211:36:00 EDT, [facility], 30, 1 capsule By Mouth Daily,Instr:FOR [...] Stop 04/06/24 13:54:00 EDT, 04/05/23 13:54:00 EDT, [facility], 5, ONE... Start Date: 04/05/23 Stop Date: 04/06/24 Status: Ordered Ditropan XL 10 mg oral tablet, extended release 10, mg, 1, tablet, By Mouth, Daily, 0, 01/03/07 9:24:09, Print ANNE-MARIE Number, [id number], Constant Indicator Start Date: 01/03/07 Status: Ordered DOK 100 mg oral tablet See Instructions, TAKE 1 TABLET BY MOUTH TWICE DAILY (AM AND PM) (STOOL SOFTENER EQUIVALENT), # 60 tablet, 5 Refills, Maintenance, 02/02/23 15:38:00 EDT, [facility], 175.2, cm, 02/01/23 15:11:00EDT, Height Start [...] Instructions Replace Required Details, Route toPharmacy Electronically, [facility], 175.2, cm... Start Date: 04/09/20 Status: Ordered fit to pt fit to pt, See Instructions, # 1 units, Refills 0, Tot. Refills 0, Maintenance, rigid cervical collar. Fit to pt., 06/21/18 15:59:47 EDT, Compound Start Date: 06/21/18 Status: Ordered Flomax 0.4 mg oral capsule 0.4, mg, 1, capsule, By Mouth, Daily, 0, 0, 01/03/07 9:24:42, Print ANNE-MARIE Number, [id number], Constant Indicator Start Date: 01/03/07 Status: Ordered hydrochlorothiazide 25 mg oral tablet 1, tablet, By Mouth, Daily in AM, FOR HTN/MONITOR BP/IF SYSTOLIC MORE THAN 160, DIASTOLIC MORE [id number], SYSTOLIC LESS THAN 90, OR DIASTOLIC LESS THAN 50 CALLMD., # 90 tablet, Refills 1, Tot. Refills1, Maintenance, 03/15/23 14:21:00 EDT, [facility] to [facility]... Start Date: 03/15/23 Status: Ordered HYDROCORTISONE [...] Gm, 11 Refills, Maintenance, 12/11/19 11:11:00 EST, [facility], APPLY TO EXTERNAL HEMMORRHOIDS TWICE DAILY PRN PER DR FREEMAN, 175.2, cm, 10/12/19 8:18:00 EST, Height,... Start Date: 12/11/19 Status: Ordered ibuprofen 400 mg oral tablet 400 mg, 1, tablet, By Mouth, 3 times a day, PRN, # 30 tablet, Refills 1, Tot. Refills 1, Maintenance, as needed for pain, 12/25/18 11:23:03 EST, Route to Pharmacy Electronically, [id number], [facility] Start Date: 12/25/18 Status: Ordered lactulose 10 gm/15 ml oral syrup = 20 Gm, By Mouth, Daily at bedtime, # 946 mL, 11 Refills, Maintenance, 09/01/22 7:18:00 EDT, [facility], 31, 20 Gm By Mouth Daily [...] 03/08/23 11:54:00 EDT, Route to Pharmacy Electronically, [facility], Partial fill u... Start Date: 03/08/23 Stop Date: 03/08/24 Status: Ordered loratadine 10 mg oral tablet 1, tablet, By Mouth, Daily, PRN, # 30 tablet, Refills 11, NEEDED FOR ALLERGY SYMPTOMS WATERY, ITCHY RED EYES, SNEEZING FOR ALLERGIC RHINITIS, Route to Pharmacy Electronically, [facility], 175.2, cm, 07/20/21 10:29:00 EDT, Height Start Date: 11/10/21 Status: Ordered Milk of Magnesia 8% oral suspension 30 mL, By Mouth, Daily at bedtime, FOR CONSTIPATION JBRK=3895 MG., # 900 mL, 5 Refills, Maintenance, 04/04/23 21:00:00 EDT, [facility], 175.2, cm, 02/01/23 15:11:00 EDT, Height Start Date: 04/04/23 Status: Ordered omeprazole 40 mg oral enteric coated capsule 1 capsule, By Mouth, Daily in AM, # 30 capsule, 5 Refills, Maintenance, 02/01/23 7:37:00 EDT, [facility], 175.2, cm, 07/27/22 11:37:00 EDT, Height Start Date: 02/01/23 Status: Ordered polyethylene glycol 3350 oral powder for reconstitution See Instructions, MIX 17GM WITH 8 OUNCES OF WATER OR JUICE DAILY AT 5PM FOR CONSTIPATION (POLYETHYLENE GLYCOL), # 510 Gm, 11 Refills, Physician Stop 10/07/23 11:17:00 EST, 10/07/22 11:17:00 EST, [facility], 30, MIX 17GM WITH 8 OUNCES OF WATER OR... Start Date: 10/07/22 Stop Date: 10/07/23 Status: Ordered pravastatin 40 mg oral tablet See Instructions, TAKE 1 TABLET BY MOUTH DAILY IN THE PM FOR HYPERLIPIDEMIA, # 30 tablet, 5 Refills, Maintenance, 05/19/23 0:31:00 EDT, [facility], 175.2, cm, 05/13/23 11:02:00 EDT, Height [...] 1 Refills, Maintenance, 05/11/22 14:45:00 EDT, Cream, [facility], Partial fill upon patient request if [...] tablet, 5 Refills, Maintenance, 04/04/23 21:00:00 EDT, [facility], 30, TAKE 1 TABLET BY MOUTH [...] Confirmed Active UI (urinary incontinence) Confirmed Active 44312; repeat 2020 54768; repeat 2018 3egd 2012 barretts, repeat 2014 4egd 2010 positive barretts repeat 2011 5C2 6colonoscopy 2006 nl repeat 2016 7repeat 2024 72711 Social History Social History Type Response Smoking Status Never smoker entered on: 06/25/16 Sex Patient Care team information Care Team Personnel Name: Hannah Roque RN Position: [facility] RN Member Role: Primary Care Nurse Name: Reggie Godinez RN Position: [facility] RN Member Role: Primary Care Nurse Name: Christiane Cedillo RN Position: [facility] RN Member Role: Primary Care Nurse Name: Brandon Freeman MD Position: [facility] Physician - Primary Care Member Role: PCP Address: Address: [address] [place] [address]- Name: Janeen Hoskins RN Position: [facility] RN Member Role: Primary Care Nurse Name: Cydney Mckinney RN Position: [facility] RN Member Role: Primary Care Nurse Name: Frantz Mi III, RN Position: [facility] RN Member Role: Primary Care Nurse Name: Cate Martel NP Position: Reference Physician Member Role: Primary Care Nurse Address: Address: [address] [place] [phone]- [place] Name: Fay Morton RN Position: [facility] RN Member Role: Primary Care Nurse Name: Massiel Lu RN Position: [facility] RN Member Role: Primary Care Nurse Name: Lurdes Mujica RN Position: [facility] RN Member Role: Primary Care Nurse Name: Brandie Horvath RN Position: [facility] Hospital Boom Crane Operator Member Role: Primary Care Nurse Name: Claribel Howe RN Position: [facility] SN RN Member Role: Primary Care Nurse Care Team Related Persons Name: JOHAN PERKINS Name: DAWOOD DE LOS SANTOS Address: home [address] [place] [address] Name: JENNIFER JUAREZ Address: home [address] [place] [id number]
--- OUTSIDE RECORDS SUMMARY | 2023-06-15 11:56 | XMS_ITS | Continuity of Care Document ---
Author Name Unknown Organization [facility], [place], operated [facility] Address [address] [place] [address]- Care Team Providers Care Public Relations Supervisor Name Role Phone Brandon Freeman MD Primary Care Physician [phone] [facility]counter [facility] Date[facility]): 03/11/21 - 04/10/21 [facility], [place] Adult [address] [place] [address]- Allergies, Adverse Reactions, Alerts Substance Reaction Severity [...] GIVEN 5Admin Note: FLU CLINIC 6Admin Note: [facility] VIS [id number] given 7Admin Note: given in clinic 8Result Comment: Pt. already received on 08/07/2015 Medications bacitracin zinc 500 units/g topical ointment See Instructions, APPLY SMALL AMOUNT TOPICALLY TO SUPERFICIAL WOUNDS 4 TIMES A DAY NEEDED AN ANTIBACTERIAL / CALL MD IF USING FOR MORE THAN 7 DAYS, # 1 Gm, 11 Refills, Acute, [facility], 7, APPLY SMALL AMOUNT TOPICALLY TO [...] CONSTIPATION, # 7 supp, 11 Refills, Acute, [facility], 175.2, cm, 10/12/19 8:18:00 EST, Height [...] Acute 07/27/21 9:44:00 EDT, 08/01/20 9:44:00 EDT, [facility], 1 capsule By Mouth Daily,x90 days,Instr:FOR INTESTINAL HEALTH., 175.2, cm, 07/09/20 10:27:00 E... Start Date: 08/01/20 Stop Date: 07/27/21 Status: Ordered diazepam 10 mg oral tablet See Instructions, PRN, 1 tablet By Mouth 1 hour prior to medical appointments, # 1 tablet, Refills 5, Tot. Refills 5, Maintenance, for anxiety, 01/07/21 11:49:00 EST, Instructions Replace Required Details, Route to Pharmacy Electronically, [facility] Start Date: 01/07/21 Status: Ordered Disposable Enema 7 g-19 g rectal enema See Instructions, ONE ENEMA PER RECTUM DAY 5 WITHOUT BOWEL MOVEMENT / IF NO RESULTS NOTIFY MD / FORCONSTIPATION / IC FLEET ENEMA 7 GM - 19 GM, # 133 mL, 11 Refills, Soft Stop, [facility], 5, ONE ENEMA PER RECTUM DAY 5 WITHOUT BOWEL MOVEMENT / IF... Start Date: 03/11/21 Status: Ordered Ditropan XL 10 mg oral tablet, extended release 10, mg, 1, tablet, By Mouth, Daily, 0, 01/03/07 9:24:09, Print ANNE-MARIE Number, [id number], Constant Indicator Start Date: 01/03/07 Status: Ordered DOK 100 mg oral tablet See Instructions, TAKE 1 TABLET BY MOUTH TWICE DAILY (STOOL SOFTENER EQUIVALENT), # 60 tablet, 5 Refills, Soft Stop, 11/06/20 9:22:00 EST, [facility], 175.2, cm, 07/09/20 10:27:00 EDT, Height [...] Instructions Replace Required Details, Route toPharmacy Electronically, [facility], 175.2, cm... Start Date: 04/09/20 Status: Ordered fit to pt fit to pt, See Instructions, # 1 units, Refills 0, Tot. Refills 0, Maintenance, rigid cervical collar. Fit to pt., 06/21/18 15:59:47 EDT, Compound Start Date: 06/21/18 Status: Ordered Flomax 0.4 mg oral capsule 0.4, mg, 1, capsule, By Mouth, Daily, 0, 0, 01/03/07 9:24:42, Print ANNE-MARIE Number, [id number], Constant Indicator Start Date: 01/03/07 Status: Ordered [...] Gm, 11 Refills, Maintenance, 12/11/19 11:11:00 EST, [facility], APPLY TO EXTERNAL HEMMORRHOIDS TWICE DAILY PRN PER DR FREEMAN, 175.2, cm, 10/12/19 8:18:00 EST, Height,... Start Date: 12/11/19 Status: Ordered ibuprofen 400 mg oral tablet 400 mg, 1, tablet, By Mouth, 3 times a day, PRN, # 30 tablet, Refills 1, Tot. Refills 1, Maintenance, as needed for pain, 12/25/18 11:23:03 EST, Route to Pharmacy Electronically, [id number], [facility] Start Date: 12/25/18 Status: Ordered lactulose 10 gm/15 ml oral syrup See Instructions, TWO TABLESPOONFULS BY MOUTH DAILY AT BEDTIME FOR CONSTIPATION / GIVE WITH LIQUIDSJUICE/WATER / 2 TBSP = 30 ML DOSE = 20 GRAMS, # 946 mL, 11 Refills, Soft Stop, 08/15/20 7:20:00 EDT, [facility], TWO TABLESPOONFULS BY MOUTH DAILY... Start Date: 08/15/20 Status: Ordered lisinopril 20 mg oral tablet 1, tablet, By Mouth, Daily in AM, FOR HTN / CALL MD IF SBP>160 OR DBP>100 OR SBP<90 OR DBP<50., # 30 tablet, Refills 5, Tot. Refills 0, Maintenance, 02/03/21 12:45:00 EDT, Route to Pharmacy Electronically, [facility], 175.2, cm, 11/28/20 7:21:00... Start Date: 02/03/21 Status: Ordered loratadine 10 mg oral tablet 10 mg, 1, tablet, By Mouth, Daily, PER DR FREEMAN, # 30 tablet, Refills 11, Tot. Refills 11, 02/19/20 9:46:00 EDT, Route to Pharmacy Electronically, [facility], 175.2, cm, 10/12/19 8:18:00 EST, Height, 73.2, kg, 03/05/18 17:34:00 EDT, Dry Weight Start Date: 02/19/20 Status: Ordered Milk of Magnesia 8% oral suspension 30 mL = 2.4 Gm, By Mouth, Daily at bedtime, # 900 mL, 5 Refills, Maintenance, 04/02/21 7:35:00 EDT,[facility], 175.2, cm, 11/28/20 7:21:00 EST, Height Start Date: 04/02/21 Stop Date: 09/29/21 Status: Ordered omeprazole 40 mg oral enteric coated capsule 1 capsule = 40 mg, By Mouth, Daily, # 30 capsule, 5 Refills, Maintenance, 12/04/20 6:53:00 EST, EC Capsule, [facility], Partial fill upon patient request if the prescription is for a schedule IIopioid drug., 175.2, cm, 01/29/21 7:21:00 EST, Height Start Date: 12/04/20 Status: Ordered polyethylene glycol 3350 oral powder for reconstitution = 17 Gm, By Mouth, Daily, dissolve in water or juice, # 527 Gm, 11 Refills, Maintenance, 08/26/20 9:54:00 EDT, [facility], 17 Gm By Mouth Daily,Instr:dissolve in water or juice, 175.2, cm, 07/09/20 10:27:00 EDT, Height Start Date: 08/26/20 Status: Ordered pravastatin 40 mg oral tablet 1 tablet, By Mouth, Daily, IN THE PM FOR HYPERLIPIDEMIA., # 30 tablet, 2 Refills, Maintenance, 02/17/21 14:29:00 EDT, [facility], 175.2, cm, 11/28/20 7:21:00 EST, Height Start Date: 02/17/21 Status: Ordered Robafen 100 mg/5 ml oral liquid 10 mL, By Mouth, 4 times a day, PRN NEEDED FOR COUGH/NOTIFY MD IF NO RELIEF AFTER 48 HRS / DOSE =, GUAIFENESIN (TUSSIN MUCUS-CONGEST 100MG/5ML., # 240 mL, 4 Refills, Acute, 10/28/20 6:38:00 EST, [facility], 175.2, cm, 07/09/20 10:27:00 EDT, He... [...] Raynaud's phenomenon(Confirmed) Active UI (urinary incontinence)(Confirmed) Active 85209; repeat 202015; repeat 2017 3egd 2011 barretts, repeat 2014 4egd 2010 positive barretts repeat 2011 5C2 6colonoscopy 2007 nl repeat 2016 7repeat 2024 [id number] Social History Social History Type Response Smoking Status Never smoker entered on: 06/25/16 Sex
--- OUTSIDE RECORDS SUMMARY | 2023-06-15 11:56 | XMS_ITS | Continuity of Care Document ---
Author Name Unknown Organization [facility] Address [address] [place] [address]- Care Team Providers Care Color Matcher Name Role Phone Brandon Freeman MD Primary Care Physician [phone] [facility]): 09[facility]11[facility] - 10/11/21 [facility] [address] [place] [address]- Allergies, Adverse Reactions, Alerts Substance Reaction Severity [...] GIVEN 5Admin Note: [facility]IC 6Admin Note: [facility] [place] [phone] given 7Admin Note: given in clinic 8Result Comment: Pt. already received on 08/07/2015 Medications bacitracin zinc 500 units/g topical ointment See Instructions, APPLY SMALL AMOUNT TOPICALLY TO SUPERFICIAL WOUNDS 4 TIMES A DAY NEEDED AN ANTIBACTERIAL / CALL MD IF USING FOR MORE THAN 7 DAYS, # 1 Gm, 11 Refills, Acute, [facility], 7, APPLY SMALL AMOUNT TOPICALLY TO [...] CONSTIPATION, # 7 supp, 11 Refills, Acute, [facility], 175.2, cm, 10/12/19 8:18:00 EST, Height [...] 30 SEC... Start Date: 10/26/18 Status: Ordered [facility] oral capsule 1 capsule, By Mouth, Daily, FOR INTESTINAL HEALTH., # 30 capsule, 11 Refills, [facility], 30, TAKE 1 CAPSULE BY MOUTH DAILY FOR INTESTINAL HEALTH, 175.2, cm, 07/20/21 10:29:00 EDT, Height Start Date: 07/23/21 Status: Ordered diazepam 10 mg oral tablet See Instructions, PRN, 1 tablet By Mouth 2 hour prior to medical appointments, # 1 tablet, Refills 5, Tot. Refills 5, Maintenance, for anxiety, 07/20/21 10:26:00 EDT, Instructions Replace Required Details, Route to Pharmacy Electronically, [facility] Start Date: 07/20/21 Status: Ordered Disposable Enema 7 g-19 g rectal enema See Instructions, ONE ENEMA PER RECTUM DAY 5 WITHOUT BOWEL MOVEMENT / IF NO RESULTS NOTIFY MD / FORCONSTIPATION / IC FLEET ENEMA 7 GM - 19 GM, # 133 mL, 11 Refills, Soft Stop, [facility], 5, ONE ENEMA PER RECTUM DAY 5 WITHOUT BOWEL MOVEMENT / IF... Start Date: 03/11/21 Status: Ordered Ditropan XL 10 mg oral tablet, extended release 10, mg, 1, tablet, By Mouth, Daily, 0, 01/03/07 9:24:09, Print ANNE-MARIE Number, [id number], Constant Indicator Start Date: 01/03/07 Status: Ordered DOK 100 mg oral tablet See Instructions, TAKE 1 TABLET BY MOUTH TWICE DAILY (STOOL SOFTENER EQUIVALENT), # 60 tablet, 5 Refills, Maintenance, [facility], 175.2, cm, 11/28/20 7:21:00 EST, Height [...] Instructions Replace Required Details, Route toPharmacy Electronically, [facility], 175.2, cm... Start Date: 04/09/20 Status: Ordered fit to pt fit to pt, See Instructions, # 1 units, Refills 0, Tot. Refills 0, Maintenance, rigid cervical collar. Fit to pt., 06/21/18 15:59:47 EDT, Compound Start Date: 06/21/18 Status: Ordered Flomax 0.4 mg oral capsule 0.4, mg, 1, capsule, By Mouth, Daily, 0, 0, 01/03/07 9:24:42, Print ANNE-MARIE Number, [id number], Constant Indicator Start Date: 01/03/07 Status: Ordered [...] Gm, 11 Refills, Maintenance, 12/11/19 11:11:00 EST, [facility], APPLY TO EXTERNAL HEMMORRHOIDS TWICE DAILY PRN PER DR FREEMAN, 175.2, cm, 10/12/19 8:18:00 EST, Height,... Start Date: 12/11/19 Status: Ordered ibuprofen 400 mg oral tablet 400 mg, 1, tablet, By Mouth, 3 times a day, PRN, # 30 tablet, Refills 1, Tot. Refills 1, Maintenance, as needed for pain, 12/25/18 11:23:03 EST, Route to Pharmacy Electronically, [id number], [facility] Start Date: 12/25/18 Status: Ordered lactulose 10 gm/15 ml oral syrup = 20 Gm, By Mouth, Daily at bedtime, GIVE WITH., # 946 mL, 11 Refills, [facility], 31, TWO TABLESPOONFULS BY MOUTH DAILY [...] Replace Required Details, Route to Pharmacy Electronically, [facility], 175.2, cm, 07/20/21... Start Date: 08/04/21 Status: Ordered loratadine 10 mg oral tablet 10 mg, 1, tablet, By Mouth, Daily, PER DR FREEMAN, # 30 tablet, Refills 11, Tot. Refills 11, 02/19/20 9:46:00 EDT, Route to Pharmacy Electronically, [facility], 175.2, cm, 10/12/19 8:18:00 EST, Height, 73.2, kg, 03/05/18 17:34:00 EDT, Dry Weight Start Date: 02/19/20 Status: Ordered Milk of Magnesia 8% oral suspension 30 mL = 2.4 Gm, By Mouth, Daily at bedtime, # 900 mL, 5 Refills, Maintenance, 04/02/21 7:35:00 EDT,[facility], 175.2, cm, 11/28/20 7:21:00 EST, Height Start Date: 04/02/21 Stop Date: 09/29/21 Status: Ordered omeprazole 40 mg oral enteric coated capsule See Instructions, TAKE 1 CAPSULE BY MOUTH DAILY FOR GERD, # 30 capsule, 2 Refills, [facility],175.2, cm, 07/20/21 10:29:00 EDT, Height Start Date: 08/31/21 Status: Ordered polyethylene glycol 3350 oral powder for reconstitution See Instructions, MIX 17GM WITH 8 OUNCES OF WATER OR JUICE DAILY AT 5PM FOR CONSTIPATION (POLYETHYLENE GLYCOL), # 510 Gm, 11 Refills, [facility], 30, MIX 17GM WITH 8 OUNCES [...] mL, 4 Refills, Acute, 10/28/20 6:38:00 EST, [facility], 175.2, cm, 07/09/20 10:27:00 EDT, He... [...] Raynaud's phenomenon(Confirmed) Active UI (urinary incontinence)(Confirmed) Active 94247; repeat 2020; repeat 2018 3egd 2012 barretts, repeat 2014 4egd 2009 positive barretts repeat 2012 5C2 6colonoscopy 2007 nl repeat 2017 7repeat 2024 [id number] Social History Social History Type Response Smoking Status Never smoker entered on: 06/25/16 Sex
--- OUTSIDE RECORDS SUMMARY | 2023-06-15 11:56 | XMS_ITS | Continuity of Care Document ---
Author Name Unknown Organization [facility] Address [address] [place] [address]- Care Team Providers Care Perinatal Instructor Name Role Phone Brandon Freeman MD Primary Care Physician [facility]): 04[facility]21 - 05/16/21 [facility] Adult [address] [place] [address]- Allergies, Adverse Reactions, Alerts Substance Reaction Severity [...] GIVEN 5Admin Note: FLU CLINIC 6Admin Note: [facility] VIS [phone] given 7Admin Note: given in clinic 8Result Comment: Pt. already received on 08/07/2015 Medications bacitracin zinc 500 units/g topical ointment See Instructions, APPLY SMALL AMOUNT TOPICALLY TO SUPERFICIAL WOUNDS 4 TIMES A DAY NEEDED AN ANTIBACTERIAL / CALL MD IF USING FOR MORE THAN 7 DAYS, # 1 Gm, 11 Refills, Acute, [facility], 7, APPLY SMALL AMOUNT TOPICALLY TO [...] CONSTIPATION, # 7 supp, 11 Refills, Acute, [facility], 175.2, cm, 10/12/19 8:18:00 EST, Height [...] Acute 07/27/21 9:44:00 EDT, 08/01/20 9:44:00 EDT, [facility], 1 capsule By Mouth Daily,x90 days,Instr:FOR INTESTINAL HEALTH., 175.2, cm, 07/09/20 10:27:00 E... Start Date: 08/01/20 Stop Date: 07/27/21 Status: Ordered diazepam 10 mg oral tablet See Instructions, PRN, 1 tablet By Mouth 1 hour prior to medical appointments, # 1 tablet, Refills 5, Tot. Refills 5, Maintenance, for anxiety, 01/07/21 11:49:00 EST, Instructions Replace Required Details, Route to Pharmacy Electronically, [facility] Start Date: 01/07/21 Status: Ordered Disposable Enema 7 g-19 g rectal enema See Instructions, ONE ENEMA PER RECTUM DAY 5 WITHOUT BOWEL MOVEMENT / IF NO RESULTS NOTIFY MD / FORCONSTIPATION / IC FLEET ENEMA 7 GM - 19 GM, # 133 mL, 11 Refills, Soft Stop, [facility], 5, ONE ENEMA PER RECTUM DAY 5 WITHOUT BOWEL MOVEMENT / IF... Start Date: 03/11/21 Status: Ordered Ditropan XL 10 mg oral tablet, extended release 10, mg, 1, tablet, By Mouth, Daily, 0, 01/03/07 9:24:09, Print ANNE-MARIE Number, [id number], Constant Indicator Start Date: 01/03/07 Status: Ordered DOK 100 mg oral tablet See Instructions, TAKE 1 TABLET BY MOUTH TWICE DAILY (STOOL SOFTENER EQUIVALENT), # 60 tablet, 5 Refills, Maintenance, [facility], 175.2, cm, 11/28/20 7:21:00 EST, Height [...] Instructions Replace Required Details, Route toPharmacy Electronically, [facility], 175.2, cm... Start Date: 04/09/20 Status: Ordered fit to pt fit to pt, See Instructions, # 1 units, Refills 0, Tot. Refills 0, Maintenance, rigid cervical collar. Fit to pt., 06/21/18 15:59:47 EDT, Compound Start Date: 06/21/18 Status: Ordered Flomax 0.4 mg oral capsule 0.4, mg, 1, capsule, By Mouth, Daily, 0, 0, 01/03/07 9:24:42, Print ANNE-MARIE Number, [id number], Constant Indicator Start Date: 01/03/07 Status: Ordered hydrochlorothiazide 25 mg oral tablet 1, tablet, By Mouth, Daily in AM, FOR HTN / MONITOR BP / IF SYSTOLIC BP > 160 OR DIASTOLIC > 100 OR SYSTOLIC < 90 OR DIASTOLIC < 50 CALL [facility], # 30 tablet, Refills 2, Tot. Refills 0, Maintenance, 03/11/21 9:32:00 EDT, Route to Pharmacy Electronically,... Start Date: 03/11/21 Status: Ordered hydrocortisone 1% topical cream See Instructions, APPLY TO EXTERNAL HEMMORRHOIDS TWICE DAILY PRN PER DR FREEMAN, # 60 Gm, 11 Refills, Maintenance, 12/11/19 11:11:00 EST, [facility], APPLY TO EXTERNAL HEMMORRHOIDS TWICE DAILY PRN PER DR FREEMAN, 175.2, cm, 10/12/19 8:18:00 EST, Height,... Start Date: 12/11/19 Status: Ordered ibuprofen 400 mg oral tablet 400 mg, 1, tablet, By Mouth, 3 times a day, PRN, # 30 tablet, Refills 1, Tot. Refills 1, Maintenance, as needed for pain, 12/25/18 11:23:03 EST, Route to Pharmacy Electronically, [id number], [facility] Start Date: 12/25/18 Status: Ordered lactulose 10 gm/15 ml oral syrup See Instructions, TWO TABLESPOONFULS BY MOUTH DAILY AT BEDTIME FOR CONSTIPATION / GIVE WITH LIQUIDSJUICE/WATER / 2 TBSP = 30 ML DOSE = 20 GRAMS, # 946 mL, 11 Refills, Soft Stop, 08/15/20 7:20:00 EDT, [facility], TWO TABLESPOONFULS BY MOUTH DAILY... Start Date: 08/15/20 Status: Ordered lisinopril 20 mg oral tablet 1, tablet, By Mouth, Daily in AM, FOR HTN / CALL MD IF SBP>160 OR DBP>100 OR SBP<90 OR DBP<50., # 30 tablet, Refills 5, Tot. Refills 0, Maintenance, 02/03/21 12:45:00 EDT, Route to Pharmacy Electronically, [facility], 175.2, cm, 11/28/20 7:21:00... Start Date: 02/03/21 Status: Ordered loratadine 10 mg oral tablet 10 mg, 1, tablet, By Mouth, Daily, PER DR FREEMAN, # 30 tablet, Refills 11, Tot. Refills 11, 02/19/20 9:46:00 EDT, Route to Pharmacy Electronically, [facility], 175.2, cm, 10/12/19 8:18:00 EST, Height, 73.2, kg, 03/05/18 17:34:00 EDT, Dry Weight Start Date: 02/19/20 Status: Ordered Milk of Magnesia 8% oral suspension 30 mL = 2.4 Gm, By Mouth, Daily at bedtime, # 900 mL, 5 Refills, Maintenance, 04/02/21 7:35:00 EDT,[facility], 175.2, cm, 11/28/20 7:21:00 EST, Height Start Date: 04/02/21 Stop Date: 09/29/21 Status: Ordered omeprazole 40 mg oral enteric coated capsule 1 capsule = 40 mg, By Mouth, Daily, # 30 capsule, 5 Refills, Maintenance, 12/04/20 6:53:00 EST, EC Capsule, [facility], Partial fill upon patient request if the prescription is for a schedule IIopioid drug., 175.2, cm, 11/28/20 7:21:00 EST, Height Start Date: 12/04/20 Status: Ordered polyethylene glycol 3350 oral powder for reconstitution = 17 Gm, By Mouth, Daily, dissolve in water or juice, # 527 Gm, 11 Refills, Maintenance, 08/26/20 9:54:00 EDT, [facility], 17 Gm By Mouth Daily,Instr:dissolve in water or juice, 175.2, cm, 07/09/20 10:27:00 EDT, Height Start Date: 08/26/20 Status: Ordered pravastatin 40 mg oral tablet See Instructions, TAKE 1 TABLET BY MOUTH DAILY IN THE PM FOR HYPERLIPIDEMIA, # 30 tablet, 5 Refills, Maintenance, [facility], 175.2, cm, 11/28/20 7:21:00 EST, Height Start Date: 05/14/21 Status: Ordered Robafen 100 mg/5 ml oral liquid 10 mL, By Mouth, 4 times a day, PRN NEEDED FOR COUGH/NOTIFY MD IF NO RELIEF AFTER 48 HRS / DOSE =, GUAIFENESIN (TUSSIN MUCUS-CONGEST 100MG/5ML., # 240 mL, 4 Refills, Acute, 10/28/20 6:38:00 EST, [facility], 175.2, cm, 07/09/20 10:27:00 EDT, He... [...] Raynaud's phenomenon(Confirmed) Active UI (urinary incontinence)(Confirmed) Active 10548; repeat 2020; repeat 2017 3egd 2011 barretts, repeat 2014 4egd 2009 positive barretts repeat 2011 5C2 6colonoscopy 2006 repeat 2016 7repeat 2024 [id number] Social History Social History Type Response Smoking Status Never smoker entered on: 06/25/16 Sex
--- OUTSIDE RECORDS SUMMARY | 2023-06-15 11:56 | XMS_ITS | Continuity of Care Document ---
Author Name Unknown Organization [facility]ace lt Address [address] [place] [address]- Care Team Providers Care Pin Sorter And Bagger Name Role Phone Brandon Freeman MD Primary Care Physician [facility] 10[facility]22 - 11/19/22 [facility] Adult [address] [place] [address]- Allergies, Adverse Reactions, Alerts Substance Reaction Severity Status azithromycin Active macrolide antibiotics Active ketolides Active Dust Active Immunizations Given and Recorded Vaccine Date Status Refusal Reason [id number] 12y+ bivalent booster vax 07/22/22 Recorded tetanus-diphtheria [...] clinic 5Admin Note: [facility] 6Admin Note: [employer] [facility] VIS [id number] given 7Admin Note: given in clinic 8Result Comment: Pt. already received on 08/07/2015 Medications acetaminophen 325 mg oral tablet 2, tablet, By Mouth, Every 6 hours, PRN, [id number]., # 60 tablet, Refills 0, Maintenance, NEEDED FOR FEVER>100.5 OR PAIN SHOWN BY FACIAL GRIMACE NOTIFY MD IF USED >, 11/12/22 9:30:00 EST, Route to Pharmacy Electronically, [facility], 175.2, c... Start Date: 11/12/22 Stop Date: 11/15/22 Status: Ordered bacitracin zinc 500 units/g topical ointment See Instructions, APPLY SMALL AMOUNT TOPICALLY TO SUPERFICIAL WOUNDS 4 TIMES A DAY NEEDED AN ANTIBACTERIAL / CALL MD IF USING FOR MORE THAN 7 DAYS, # 28 Gm, 11 Refills, Maintenance, 11/09/22 15:57:00 EST, [facility], 7, APPLY SMALL AMOUNT T... Start [...] FOR CONSTIPATION, # 7 supp, 11 Refills, [facility], 175.2, cm, 07/20/21 10:29:00 EDT, Height [...] 30 capsule, 11 Refills, Maintenance, 07/29/2211:36:00 EDT, [facility], 30, 1 capsule By Mouth Daily,Instr:FOR [...] 19 GM, # 133 mL, 11 Refills, [facility], 5, ONE ENEMA PERRECTUM DAY 5 WITHOUT BOWEL MOVEMENT / IF NO RESULTS... Start Date: 03/16/22 Status: Ordered Ditropan XL 10 mg oral tablet, extended release 10, mg, 1, tablet, By Mouth, Daily, 0, 01/03/07 9:24:09, Print ANNE-MARIE Number, [id number], Constant Indicator Start Date: 01/03/07 Status: Ordered DOK 100 mg oral tablet See Instructions, TAKE 1 TABLET BY MOUTH TWICE DAILY (STOOL SOFTENER EQUIVALENT), # 60 tablet, 5 Refills, Maintenance, 08/12/22 9:24:00 EDT, [facility], 175.2, cm, 07/27/22 11:37:00 EDT, Height [...] Instructions Replace Required Details, Route toPharmacy Electronically, [facility], 175.2, cm... Start Date: 04/09/20 Status: Ordered fit to pt fit to pt, See Instructions, # 1 units, Refills 0, Tot. Refills 0, Maintenance, rigid cervical collar. Fit to pt., 06/21/18 15:59:47 EDT, Compound Start Date: 06/21/18 Status: Ordered Flomax 0.4 mg oral capsule 0.4, mg, 1, capsule, By Mouth, Daily, 0, 0, 01/03/07 9:24:42, Print ANNE-MARIE Number, [id number], Constant Indicator Start Date: 01/03/07 Status: Ordered [...] Gm, 11 Refills, Maintenance, 12/11/19 11:11:00 EST, [facility], APPLY TO EXTERNAL HEMMORRHOIDS TWICE DAILY PRN PER DR FREEMAN, 175.2, cm, 10/12/19 8:18:00 EST, Height,... Start Date: 12/11/19 Status: Ordered ibuprofen 400 mg oral tablet 400 mg, 1, tablet, By Mouth, 3 times a day, PRN, # 30 tablet, Refills 1, Tot. Refills 1, Maintenance, as needed for pain, 12/25/18 11:23:03 EST, Route to Pharmacy Electronically, [id number], [facility] Start Date: 12/25/18 Status: Ordered lactulose 10 gm/15 ml oral syrup = 20 Gm, By Mouth, Daily at bedtime, # 946 mL, 11 Refills, Maintenance, 09/01/22 7:18:00 EDT, [facility], 31, 20 Gm By Mouth Daily [...] FOR ALLERGIC RHINITIS, Route to Pharmacy Electronically, [facility], 175.2, cm, 07/20/21 10:29:00 EDT, Height Start Date: 11/10/21 Status: Ordered Milk of Magnesia 8% oral suspension 30 mL, By Mouth, Daily at bedtime, FOR CONSTIPATION BBAC=2315 MG., # 900 mL, 5 Refills, Maintenance, 07/01/22 13:24:00 EDT, [facility], 175.2, cm, 04/15/22 9:44:00 EDT, Height Start Date: 07/01/22 Status: Ordered omeprazole 40 mg oral enteric coated capsule See Instructions, TAKE 1 CAPSULE BY MOUTH DAILY FOR GERD IN AM, # 30 capsule, 2 Refills, Maintenance, 11/04/22 10:43:00 EST, [facility], 175.2, cm, 07/27/22 11:37:00 EDT, Height Start Date: 11/04/22 Status: Ordered polyethylene glycol 3350 oral powder for reconstitution See Instructions, MIX 17GM WITH 8 OUNCES OF WATER OR JUICE DAILY AT 5PM FOR CONSTIPATION (POLYETHYLENE GLYCOL), # 510 Gm, 11 Refills, Physician Stop 10/07/23 11:17:00 EST, 10/07/22 11:17:00 EST, [facility], 30, MIX 17GM WITH 8 OUNCES OF WATER OR... Start Date: 10/07/22 Stop Date: 10/07/23 Status: Ordered pravastatin 40 mg oral tablet See Instructions, TAKE 1 TABLET BY MOUTH DAILY IN THE PM FOR HYPERLIPIDEMIA, # 30 tablet, 5 Refills, Maintenance, 11/18/22 15:41:00 EST, [facility], 175.2, cm, 07/27/22 11:37:00 EDT, Height Start Date: 11/18/22 Status: Ordered Robafen 100 mg/5 ml oral liquid 10 mL, By Mouth, 4 times a day, PRN NEEDED FOR COUGH/NOTIFY MD IF NO RELIEF AFTER 48 HRS / DOSE =, GUAIFENESIN (TUSSIN MUCUS-CONGEST 100MG/5ML., # 240 mL, 4 Refills, Acute 01/26/23 12:02:00 EST, 11/25/21 12:02:00 EST, [facility], 175.2, cm, 09... Start Date: 11/25/21 Stop Date: 11/25/22 Status: Ordered Shingrix intramuscular injection 0.5 mL, Intramuscular, Once, # 0.5 mL, 1 Refills, Soft Stop, 06/28/18 10:24:17 EDT Start Date: 06/28/18 Status: Ordered terbinafine 1% topical cream 1 application, Topically, 2 times a day, # 30 Gm, 1 Refills, Maintenance, 05/11/22 14:45:00 EDT, Cream, [facility], Partial fill upon patient request if [...] 30 tablet, 5 Refills, 10/05/22 11:07:00 EST, [facility], 30, TAKE 1 TABLET BY MOUTH [...] Confirmed Active UI (urinary incontinence) Confirmed Active 54004; repeat 2020; repeat 2018 3egd 2012 barretts, repeat 2014 4egd 2009 positive barretts repeat 2012 5C2 6colonoscopy 2007 nl repeat 2017 7repeat 2025 [id number] Social History Social History Type Response Smoking Status Never smoker entered on: 06/25/16 Sex Patient Care team information Care Team Personnel Name: Hannah Roque RN Position: [facility] RN Member Role: Primary Care Nurse Name: Reggie Godinez RN Position: S RN Member Role: Primary Care Nurse Name: Christiane Cedillo RN Position: S RN Member Role: Primary Care Nurse Name: Brandon Freeman MD Position: [facility] Primary Care Physician Member Role: PCP Address: Address: [address] [place] [phone]- Name: Janeen Hoskins RN Position: [facility] RN Member Role: Primary Care Nurse Name: Cydney Mckinney RN Position: [facility] RN Member Role: Primary Care Nurse Name: Frantz Mi III, RN Position: [facility] RN Member Role: Primary Care Nurse Name: Cate Martel NP Position: Reference Physician Member Role: Primary Care Nurse Address: Address: [address] [place] [phone]- Name: Fay Morton RN Position: [facility] RN Member Role: Primary Care Nurse Name: Massiel Lu RN Position: [facility] RN Member Role: Primary Care Nurse Name: Lurdes Mujica RN Position: [facility] RN Member Role: Primary Care Nurse Name: Brandie Horvath RN Position: [facility] Hospital Business Management Specialist Member Role: Primary Care Nurse Name: Claribel Howe RN Position: [facility] SN RN Member Role: Primary Care Nurse Care Team Related Persons Name: JOHAN PERKINS Name: DAWOOD DE LOS SANTOS Address: home [address] [place] [id number] Name: JENNIFER JUAREZ Address: home [address] [place] [address]
--- OUTSIDE RECORDS SUMMARY | 2023-06-15 11:56 | XMS_ITS | Continuity of Care Document ---
Author Name Unknown Organization [facility] Chace lt Address [address] [place] [address]- Care Team Providers Care Oracle Application Consultant Name Role Phone Brandon Freeman MD Primary Care Physician [phone] [facility] - 02/27/22 [facility] Adult [address] [place] [address]- Allergies, Adverse Reactions, Alerts Substance Reaction Severity [...] GIVEN 5Admin Note: [facility] 6Admin Note: [employer] [facility] VIS [phone] given 7Admin Note: given in clinic 8Result [...] FOR CONSTIPATION, # 7 supp, 11 Refills, [facility], 175.2, cm, 07/20/21 10:29:00 EDT, Height [...] INTESTINAL HEALTH., # 30 capsule, 11 Refills, [facility], 30, TAKE 1 CAPSULE BY MOUTH [...] # 133 mL, 11 Refills, Soft Stop, [facility], 5, ONE ENEMA PER RECTUM DAY 5 WITHOUT BOWEL MOVEMENT / IF... Start Date: 03/11/21 Status: Ordered Ditropan XL 10 mg oral tablet, extended release 10, mg, 1, tablet, By Mouth, Daily, 0, 01/03/07 9:24:09, Print ANNE-MARIE Number, [id number], Constant Indicator Start Date: 01/03/07 Status: Ordered DOK 100 mg oral tablet See Instructions, TAKE 1 TABLET BY MOUTH TWICE DAILY (STOOL SOFTENER EQUIVALENT), # 60 tablet, 5 Refills, [facility], 175.2, cm, 07/20/21 10:29:00 EDT, Height [...] Instructions Replace Required Details, Route toPharmacy Electronically, [facility], 175.2, cm... Start Date: 04/09/20 Status: Ordered fit to pt fit to pt, See Instructions, # 1 units, Refills 0, Tot. Refills 0, Maintenance, rigid cervical collar. Fit to pt., 06/21/18 15:59:47 EDT, Compound Start Date: 06/21/18 Status: Ordered Flomax 0.4 mg oral capsule 0.4, mg, 1, capsule, By Mouth, Daily, 0, 0, 01/03/07 9:24:42, Print ANNE-MARIE Number, [id number], Constant Indicator Start Date: 01/03/07 Status: Ordered [...] Gm, 11 Refills, Maintenance, 12/11/19 11:11:00 EST, [facility], APPLY TO EXTERNAL HEMMORRHOIDS TWICE DAILY PRN PER DR FREEMAN, 175.2, cm, 10/12/19 8:18:00 EST, Height,... Start Date: 12/11/19 Status: Ordered ibuprofen 400 mg oral tablet 400 mg, 1, tablet, By Mouth, 3 times a day, PRN, # 30 tablet, Refills 1, Tot. Refills 1, Maintenance, as needed for pain, 12/25/18 11:23:03 EST, Route to Pharmacy Electronically, [id number], [facility] Start Date: 12/25/18 Status: Ordered lactulose 10 gm/15 ml oral syrup = 20 Gm, By Mouth, Daily at bedtime, GIVE WITH., # 946 mL, 11 Refills, [facility], 31, TWO TABLESPOONFULS BY MOUTH DAILY [...] FOR ALLERGIC RHINITIS, Route to Pharmacy Electronically, [facility], 175.2, cm, 07/20/21 10:29:00 EDT, Height Start Date: 11/10/21 Status: Ordered Milk of Magnesia 8% oral suspension 30 mL, By Mouth, Daily at bedtime, FOR CONSTIPATION MUFD=7213 MG., # 900 mL, 5 Refills, [facility], 175.2, cm, 07/20/21 10:29:00 EDT, Height Start Date: 11/24/21 Status: Ordered omeprazole 40 mg oral enteric coated capsule See Instructions, TAKE 1 CAPSULE BY MOUTH DAILY FOR GERD IN AM, # 30 capsule, 2 Refills, [facility], 175.2, cm, 07/20/21 10:29:00 EDT, Height Start Date: 01/27/22 Status: Ordered polyethylene glycol 3350 oral powder for reconstitution See Instructions, MIX 17GM WITH 8 OUNCES OF WATER OR JUICE DAILY AT 5PM FOR CONSTIPATION (POLYETHYLENE GLYCOL), # 510 Gm, 11 Refills, [facility], 30, MIX 17GM WITH 8 OUNCES OF WATER OR JUICE DAILY AT 5PM FOR CONSTIPATION (POLYETHYLENE GLYCOL), 17... Start Date: 09/22/21 Status: Ordered pravastatin 40 mg oral tablet See Instructions, TAKE 1 TABLET BY MOUTH DAILY IN THE PM FOR HYPERLIPIDEMIA, # 30 tablet, 5 Refills, [facility], 175.2, cm, 07/20/21 10:29:00 EDT, Height Start Date: 11/09/21 Status: Ordered Robafen 100 mg/5 ml oral liquid 10 mL, By Mouth, 4 times a day, PRN NEEDED FOR COUGH/NOTIFY MD IF NO RELIEF AFTER 48 HRS / DOSE =, GUAIFENESIN (TUSSIN MUCUS-CONGEST 100MG/5ML., # 240 mL, 4 Refills, Acute 11/25/22 12:02:00 EST, 11/25/21 12:02:00 EST, [facility], 175.2, cm, 09... Start Date: 11/25/21 [...] VITAMIN SUPPLEMENT, # 30 tablet, 5 Refills, [facility], 30, TAKE 1 TABLET BY MOUTH [...] Raynaud's phenomenon(Confirmed) Active UI (urinary incontinence)(Confirmed) Active 48880; repeat 2020; repeat 2018 3egd 2012 barretts, repeat 2014 4egd 2010 positive barretts repeat 2011 5C2 6colonoscopy 2006 nl repeat 2016 7repeat 2024 [id number] Social History Social History Type Response Smoking Status Never smoker entered on: 06/25/16 Sex
--- OUTSIDE RECORDS SUMMARY | 2023-06-15 11:56 | XMS_ITS | Continuity of Care Document ---
Author Name Unknown Organization [facility]ace lt Address [address] [place] [address]- Care Team Providers Care Lead Generation Specialist Name Role Phone Brandon Freeman MD Primary Care Physician [facility] 12[facility]10[facility]20 - 01/09/21 [facility] Adult [address] [place] [address]- Allergies, Adverse Reactions, Alerts Substance Reaction Severity [...] GIVEN 5Admin Note: [facility]U CLINIC 6Admin Note: [employer] [facility] VIS [phone] given 7Admin Note: given in clinic 8Result Comment: Pt. already received on 08/07/2015 Medications bacitracin zinc 500 units/g topical ointment See Instructions, APPLY SMALL AMOUNT TOPICALLY TO SUPERFICIAL WOUNDS 4 TIMES A DAY NEEDED AN ANTIBACTERIAL / CALL MD IF USING FOR MORE THAN 7 DAYS, # 1 Gm, 11 Refills, Acute, [facility], 7, APPLY SMALL AMOUNT TOPICALLY TO [...] CONSTIPATION, # 7 supp, 11 Refills, Acute, [facility], 175.2, cm, 10/12/19 8:18:00 EST, Height [...] Acute 07/27/21 9:44:00 EDT, 08/01/20 9:44:00 EDT, [facility], 1 capsule By Mouth Daily,x90 days,Instr:FOR INTESTINAL HEALTH., 175.2, cm, 07/09/20 10:27:00 E... Start Date: 08/01/20 Stop Date: 07/27/21 Status: Ordered diazepam 10 mg oral tablet See Instructions, PRN, 1 tablet By Mouth 1 hour prior to medical appointments, # 1 tablet, Refills 5, Tot. Refills 5, Maintenance, for anxiety, 01/07/21 11:49:00 EST, Instructions Replace Required Details, Route to Pharmacy Electronically, [facility]... Start Date: 01/07/21 Status: Ordered Ditropan XL 10 mg oral tablet, extended release 10, mg, 1, tablet, By Mouth, Daily, 0, 01/03/07 9:24:09, Print ANNE-MARIE Number, [id number], Constant Indicator Start Date: 01/03/07 Status: Ordered DOK 100 mg oral tablet See Instructions, TAKE 1 TABLET BY MOUTH TWICE DAILY (STOOL SOFTENER EQUIVALENT), # 60 tablet, 5 Refills, Soft Stop, 11/06/20 9:22:00 EST, [facility], 175.2, cm, 07/09/20 10:27:00 EDT, Height [...] Instructions Replace Required Details, Route toPharmacy Electronically, [facility], 175.2, cm... Start Date: 04/09/20 Status: [...] 0, 0, 01/03/07 9:24:42, Print ANNE-MARIE Number, [id number], Constant Indicator Start Date: 01/03/07 Status: Ordered [...] 12/25/18 11:23:03 EST, Route to Pharmacy Electronically, [id number], [facility] Start Date: 12/25/18 Status: Ordered lactulose 10 gm/15 ml oral syrup See Instructions, TWO TABLESPOONFULS BY MOUTH DAILY AT BEDTIME FOR CONSTIPATION / GIVE WITH LIQUIDSJUICE/WATER / 2 TBSP = 30 ML DOSE = 20 GRAMS, # 946 mL, 11 Refills, Soft Stop, 08/15/20 7:20:00 EDT, [facility], TWO TABLESPOONFULS BY MOUTH DAILY... Start Date: 08/15/20 Status: Ordered loratadine 10 mg oral tablet 10 mg, 1, tablet, By Mouth, Daily, PER DR FREEMAN, # 30 tablet, Refills 11, Tot. Refills 11, 02/19/20 9:46:00 EDT, Route to Pharmacy Electronically, [facility], 175.2, cm, 10/12/19 8:18:00 EST, Height, 73.2, kg, 03/05/18 17:34:00 EDT, Dry Weight Start Date: 02/19/20 Status: Ordered Milk of Magnesia 8% oral suspension 30 mL = 2.4 Gm, By Mouth, Daily at bedtime, # 900 mL, 5 Refills, Maintenance, 09/02/20 12:20:00 EST, [facility], 175.2, cm, 07/09/20 10:27:00 EDT, Height, Dry Weight Start Date: 09/02/20 Stop Date: 03/01/21 Status: Ordered omeprazole 40 mg oral enteric coated capsule 1 capsule = 40 mg, By Mouth, Daily, # 30 capsule, 5 Refills, Maintenance, 12/04/20 6:53:00 EST, EC Capsule, [facility], Partial fill upon patient request if the prescription is for a schedule IIopioid drug., 175.2, cm, 11/28/20 7:21:00 EST, Height Start Date: 12/04/20 Status: Ordered polyethylene glycol 3350 oral powder for reconstitution = 17 Gm, By Mouth, Daily, dissolve in water or juice, # 527 Gm, 11 Refills, Maintenance, 08/26/20 9:54:00 EDT, [facility], 17 Gm By Mouth Daily,Instr:dissolve in water or juice, 175.2, cm, 07/09/20 10:27:00 EDT, Height Start Date: 08/26/20 Status: Ordered pravastatin 40 mg oral tablet 1 tablet = 40 mg, By Mouth, Daily, Pt needs labs, # 30 tablet, 2 Refills, Soft Stop, 11/17/20 12:45:00 EST, [facility], 175.2, cm, 07/09/20 10:27:00 EDT, Height Start Date: 11/17/20 Status: Ordered Robafen 100 mg/5 ml oral liquid 10 mL, By Mouth, 4 times a day, PRN NEEDED FOR COUGH/NOTIFY MD IF NO RELIEF AFTER 48 HRS / DOSE =, GUAIFENESIN (TUSSIN MUCUS-CONGEST 100MG/5ML., # 240 mL, 4 Refills, Acute, 10/28/20 6:38:00 EST, [facility], 175.2, cm, 07/09/20 10:27:00 EDT, He... [...] 08/07/20 12:37:00 EDT, Route to Pharmacy Electronically, [facility], 175.2, cm, 07/09/20 10:27:00 EDT, Height, [...] Raynaud's phenomenon(Confirmed) Active UI (urinary incontinence)(Confirmed) Active 68293; repeat 2020; repeat 2017 3egd 2011 barretts, repeat 2014 4egd 2009 positive barretts repeat 2011 5C2 6colonoscopy 2006 nl repeat 2016 7repeat 2024 [id number] Social History Social History Type Response Smoking Status Never smoker entered on: 06/25/16 Sex
--- OUTSIDE RECORDS SUMMARY | 2023-06-15 11:56 | XMS_ITS | Continuity of Care Document ---
Author Name Unknown Organization [facility] Chace lt Address [address] [place] [address]- Care Team Providers Care Product Support Manager Name Role Phone Brandon Freeman MD Primary Care Physician [phone] Encounter [facility] Date(s): 04/05/23 - 05/05/23 [facility] [address] [place] [address]- Allergies, Adverse Reactions, Alerts Substance Reaction Severity Status azithromycin Active macrolide antibiotics Active Dust Active ketolides Active Immunizations Given and Recorded Vaccine Date Status Refusal Reason [id number] 12y+ bivalent booster vax 07/22/22 Recorded tetanus-diphtheria [...] clinic 5Admin Note: [facility]U CLINIC 6Admin Note: [facility] VIS [id number] given 7Admin Note: given in clinic 8Result Comment: Pt. already received on 08/07/2015 Medications acetaminophen 325 mg oral tablet 2, tablet, By Mouth, Every 6 hours, PRN, [id number]., # 60 tablet, Refills 0, Maintenance, NEEDED FOR FEVER>100.5 OR PAIN SHOWN BY FACIAL GRIMACE NOTIFY MD IF USED >, 11/12/22 9:30:00 EST, Route to Pharmacy Electronically, [facility], 175.2, c... Start Date: 11/12/22 Stop Date: 11/15/22 Status: Ordered bacitracin zinc 500 units/g topical ointment See Instructions, APPLY SMALL AMOUNT TOPICALLY TO SUPERFICIAL WOUNDS 4 TIMES A DAY NEEDED AN ANTIBACTERIAL / CALL MD IF USING FOR MORE THAN 7 DAYS, # 28 Gm, 11 Refills, Maintenance, 11/09/22 15:57:00 EST, [facility], 7, APPLY SMALL AMOUNT T... Start [...] supp, 11 Refills, Maintenance, 12/16/22 13:35:00 EST, [facility], 175.2, cm, 07/27/22 11:37:00 EDT, Height [...] 30 SEC... Start Date: 10/26/18 Status: Ordered [facility] oral capsule 1 capsule, By Mouth, Daily, FOR INTESTINAL HEALTH., # 30 capsule, 11 Refills, Maintenance, 07/29/2211:36:00 EDT, [facility], 30, 1 capsule By Mouth Daily,Instr:FOR [...] Stop 04/06/24 13:54:00 EDT, 04/05/23 13:54:00 EDT, [facility], 5, ONE... Start Date: 04/05/23 Stop Date: 04/06/24 Status: Ordered Ditropan XL 10 mg oral tablet, extended release 10, mg, 1, tablet, By Mouth, Daily, 0, 01/03/07 9:24:09, Print ANNE-MARIE Number, [phone], Constant Indicator Start Date: 01/03/07 Status: Ordered DOK 100 mg oral tablet See Instructions, TAKE 1 TABLET BY MOUTH TWICE DAILY (AM AND PM) (STOOL SOFTENER EQUIVALENT), # 60 tablet, 5 Refills, Maintenance, 02/02/23 15:38:00 EDT, [facility], 175.2, cm, 02/01/23 15:11:00EDT, Height Start [...] Instructions Replace Required Details, Route toPharmacy Electronically, [facility], 175.2, cm... Start Date: 04/09/20 Status: Ordered fit to pt fit to pt, See Instructions, # 1 units, Refills 0, Tot. Refills 0, Maintenance, rigid cervical collar. Fit to pt., 06/21/18 15:59:47 EDT, Compound Start Date: 06/21/18 Status: Ordered Flomax 0.4 mg oral capsule 0.4, mg, 1, capsule, By Mouth, Daily, 0, 0, 01/03/07 9:24:42, Print ANNE-MARIE Number, [phone], Constant Indicator Start Date: 01/03/07 Status: Ordered hydrochlorothiazide 25 mg oral tablet 1, tablet, By Mouth, Daily in AM, FOR HTN/MONITOR BP/IF SYSTOLIC MORE THAN 160, DIASTOLIC MORE [id number], SYSTOLIC LESS THAN 90, OR DIASTOLIC LESS THAN 50 CALLMD., # 90 tablet, Refills 1, Tot. Refills1, Maintenance, 03/15/23 14:21:00 EDT, [facility]... Start Date: 03/15/23 Status: Ordered HYDROCORTISONE [...] Gm, 11 Refills, Maintenance, 12/11/19 11:11:00 EST, [facility], APPLY TO EXTERNAL HEMMORRHOIDS TWICE DAILY PRN PER DR FREEMAN, 175.2, cm, 10/12/19 8:18:00 EST, Height,... Start Date: 12/11/19 Status: Ordered ibuprofen 400 mg oral tablet 400 mg, 1, tablet, By Mouth, 3 times a day, PRN, # 30 tablet, Refills 1, Tot. Refills 1, Maintenance, as needed for pain, 12/25/18 11:23:03 EST, Route to Pharmacy Electronically, [id number], [facility] Start Date: 12/25/18 Status: Ordered lactulose 10 gm/15 ml oral syrup = 20 Gm, By Mouth, Daily at bedtime, # 946 mL, 11 Refills, Maintenance, 09/01/22 7:18:00 EDT, [facility], 31, 20 Gm By Mouth Daily [...] 03/08/23 11:54:00 EDT, Route to Pharmacy Electronically, [facility], Partial fill u... Start Date: 03/08/23 Stop Date: 03/08/24 Status: Ordered loratadine 10 mg oral tablet 1, tablet, By Mouth, Daily, PRN, # 30 tablet, Refills 11, NEEDED FOR ALLERGY SYMPTOMS WATERY, ITCHY RED EYES, SNEEZING FOR ALLERGIC RHINITIS, Route to Pharmacy Electronically, [facility], 175.2, cm, 07/20/21 10:29:00 EDT, Height Start Date: 11/10/21 Status: Ordered Milk of Magnesia 8% oral suspension 30 mL, By Mouth, Daily at bedtime, FOR CONSTIPATION YBIK=5657 MG., # 900 mL, 5 Refills, Maintenance, 04/04/23 21:00:00 EDT, [facility], 175.2, cm, 02/01/23 15:11:00 EDT, Height Start Date: 04/04/23 Status: Ordered omeprazole 40 mg oral enteric coated capsule 1 capsule, By Mouth, Daily in AM, # 30 capsule, 5 Refills, Maintenance, 02/01/23 7:37:00 EDT, [facility], 175.2, cm, 07/27/22 11:37:00 EDT, Height Start Date: 02/01/23 Status: Ordered polyethylene glycol 3350 oral powder for reconstitution See Instructions, MIX 17GM WITH 8 OUNCES OF WATER OR JUICE DAILY AT 5PM FOR CONSTIPATION (POLYETHYLENE GLYCOL), # 510 Gm, 11 Refills, Physician Stop 10/07/23 11:17:00 EST, 10/07/22 11:17:00 EST, [facility], 30, MIX 17GM WITH 8 OUNCES OF WATER OR... Start Date: 10/07/22 Stop Date: 10/07/23 Status: Ordered pravastatin 40 mg oral tablet See Instructions, TAKE 1 TABLET BY MOUTH DAILY IN THE PM FOR HYPERLIPIDEMIA, # 30 tablet, 5 Refills, Maintenance, 11/18/22 15:41:00 EST, [facility], 175.2, cm, 07/27/22 11:37:00 EDT, Height [...] 1 Refills, Maintenance, 05/11/22 14:45:00 EDT, Cream, [facility], Partial fill upon patient request if [...] tablet, 5 Refills, Maintenance, 04/04/23 21:00:00 EDT, [facility], 30, TAKE 1 TABLET BY MOUTH [...] Confirmed Active UI (urinary incontinence) Confirmed Active 15825; repeat 2020 90505; repeat 2017 3egd 2012 barretts, repeat 2014 4egd 2010 positive barretts repeat 2011 5C2 6colonoscopy 2007 nl repeat 2016 7repeat 2024 [id number] Social History Social History Type Response Smoking Status Never smoker entered on: 06/25/16 Sex Patient Care team information Care Team Personnel Name: Hannah Roque RN Position: [facility] RN Member Role: Primary Care Nurse Name: Reggie Godinez RN Position: [facility] RN Member Role: Primary Care Nurse Name: Christiaen Cedillo RN Position: [facility] RN Member Role: Primary Care Nurse Name: Brandon Freeman MD Position: [facility] Physician - Primary Care Member Role: PCP Address: Address: [address] [place] [phone]- [place] Name: Janeen Hoskins RN Position: [facility] RN Member Role: Primary Care Nurse Name: Cydney Mckinney RN Position: [facility] RN Member Role: Primary Care Nurse Name: Frantz Mi III, RN Position: [facility] RN Member Role: Primary Care Nurse Name: Cate Martel NP Position: Reference Physician Member Role: Primary Care Nurse Address: Address: [address] [place] [phone]- [place] Name: Fay Morton RN Position: [facility] RN Member Role: Primary Care Nurse Name: Massiel Lu RN Position: [facility] RN Member Role: Primary Care Nurse Name: Lurdes Mujica RN Position: [facility] RN Member Role: Primary Care Nurse Name: Brandie Horvath RN Position: [facility] Hospital Track Inspector Member Role: Primary Care Nurse Name: Claribel Howe RN Position: [facility] RN Member Role: Primary Care Nurse Care Team Related Persons Name: JOHAN PERKINS Name: MAGALI DAWOOD Address: home [address] [place] [id number] Name: JENNIFER JUAREZ Address: home [address] [place] [id number]
--- OUTSIDE RECORDS SUMMARY | 2023-06-15 11:56 | XMS_ITS | Continuity of Care Document ---
Author Name Unknown Organization [facility] lt Address [address] [place] [address]- Care Team Providers Care Probation Manager Name Role Phone Brandon Freeman MD Primary Care Physician [place] [facility] [place] 08/03/22 [facility] Adult [address] [place] [address]- Encounter Diagnosis Gastroesophageal reflux disease with hiatal hernia(Discharge Diagnosis) - 07/27/22 Bustamante's Esophagus(Discharge Diagnosis) - 07/27/22 BPH (benign prostatic hyperplasia)(Discharge Diagnosis) - 07/27/22 Hypercholesterolemia(Discharge Diagnosis) - 07/27/22 Hypertension(Discharge Diagnosis) - 07/27/22 Attending Physician: Brandon Freeman MD Allergies, Adverse Reactions, Alerts Substance Reaction Severity Status azithromycin Active macrolide antibiotics Active ketolides Active Dust Active Immunizations Given and Recorded Vaccine Date Status Refusal Reason [id number] 12y+ bivalent booster vax 07/22/22 Recorded tetanus-diphtheria [...] clinic 5Admin Note: FLU CLINIC 6Admin Note: [employer] [facility] VIS [id number] given 7Admin Note: given in clinic 8Result Comment: Pt. already received on 08/07/2015 Medications bacitracin zinc 500 units/g topical ointment See Instructions, APPLY SMALL AMOUNT TOPICALLY TO SUPERFICIAL WOUNDS 4 TIMES A DAY NEEDED AN ANTIBACTERIAL / CALL MD IF USING FOR MORE THAN 7 DAYS, # 1 Gm, 11 Refills, Acute, [facility], 7, APPLY SMALL AMOUNT TOPICALLY TO [...] FOR CONSTIPATION, # 7 supp, 11 Refills, [facility], 175.2, cm, 07/20/21 10:29:00 EDT, Height [...] 30 capsule, 11 Refills, Maintenance, 07/29/2211:36:00 EDT, [facility], 30, 1 capsule By Mouth Daily,Instr:FOR [...] 19 GM, # 133 mL, 11 Refills, [facility], 5, ONE ENEMA PERRECTUM DAY 5 WITHOUT BOWEL MOVEMENT / IF NO RESULTS... Start Date: 03/16/22 Status: Ordered Ditropan XL 10 mg oral tablet, extended release 10, mg, 1, tablet, By Mouth, Daily, 0, 01/03/07 9:24:09, Print ANNE-MARIE Number, [phone], Constant Indicator Start Date: 01/03/07 Status: Ordered DOK 100 mg oral tablet See Instructions, TAKE 1 TABLET BY MOUTH TWICE DAILY (STOOL SOFTENER EQUIVALENT), # 60 tablet, 2 Refills, [facility], 175.2, cm, 04/15/22 9:44:00 EDT, Height [...] Instructions Replace Required Details, Route toPharmacy Electronically, [facility], 175.2, cm... Start Date: 04/09/20 Status: Ordered fit to pt fit to pt, See Instructions, # 1 units, Refills 0, Tot. Refills 0, Maintenance, rigid cervical collar. Fit to pt., 06/21/18 15:59:47 EDT, Compound Start Date: 06/21/18 Status: Ordered Flomax 0.4 mg oral capsule 0.4, mg, 1, capsule, By Mouth, Daily, 0, 0, 01/03/07 9:24:42, Print ANNE-MARIE Number, [phone], Constant Indicator Start Date: 01/03/07 Status: Ordered hydrochlorothiazide 25 mg oral tablet See Instructions, TAKE 1 TAB BY MOUTH DAILY IN AM FOR HTN/MONITOR BP/IF SYSTOLIC MORE THAN 160, DIASTOLIC MORE THAN 100, SYSTOLIC LESS THAN 90, OR DIASTOLIC LESS THAN 50 CALLMD, # 30 tablet, Refills 2, Instructions Replace [...] 12/25/18 11:23:03 EST, Route to Pharmacy Electronically, [id number], [facility] Start Date: 12/25/18 Status: Ordered lactulose 10 gm/15 ml oral syrup = 20 Gm, By Mouth, Daily at bedtime, GIVE WITH., # 946 mL, 11 Refills, [facility], 31, TWO TABLESPOONFULS BY MOUTH DAILY [...] FOR ALLERGIC RHINITIS, Route to Pharmacy Electronically, [facility], 175.2, cm, 07/20/21 10:29:00 EDT, Height Start Date: 11/10/21 Status: Ordered Milk of Magnesia 8% oral suspension 30 mL, By Mouth, Daily at bedtime, FOR CONSTIPATION EKWI=9952 MG., # 900 mL, 5 Refills, Maintenance, 07/01/22 13:24:00 EDT, [facility], 175.2, cm, 04/15/22 9:44:00 EDT, Height Start Date: 07/01/22 Status: Ordered omeprazole 40 mg oral enteric coated capsule See Instructions, TAKE 1 CAPSULE BY MOUTH DAILY FOR GERD IN AM, # 30 capsule, 2 Refills, [facility], 175.2, cm, 04/15/22 9:44:00 EDT, Height Start Date: 05/11/22 Status: Ordered polyethylene glycol 3350 oral powder for reconstitution See Instructions, MIX 17GM WITH 8 OUNCES OF WATER OR JUICE DAILY AT 5PM FOR CONSTIPATION (POLYETHYLENE GLYCOL), # 510 Gm, 11 Refills, [facility], 30, MIX 17GM WITH 8 OUNCES OF WATER OR JUICE DAILY AT 5PM FOR CONSTIPATION (POLYETHYLENE GLYCOL), 17... Start Date: 09/22/21 Status: Ordered pravastatin 40 mg oral tablet See Instructions, TAKE 1 TABLET BY MOUTH DAILY IN THE PM FOR HYPERLIPIDEMIA, # 30 tablet, 5 Refills, [facility], 175.2, cm, 04/15/22 9:44:00 EDT, Height Start Date: 05/25/22 Status: Ordered Robafen 100 mg/5 ml oral liquid 10 mL, By Mouth, 4 times a day, PRN NEEDED FOR COUGH/NOTIFY MD IF NO RELIEF AFTER 48 HRS / DOSE =, GUAIFENESIN (TUSSIN MUCUS-CONGEST 100MG/5ML., # 240 mL, 4 Refills, Acute 11/25/22 12:02:00 EST, 11/25/21 12:02:00 EST, [facility], 175.2, cm, 09... Start Date: 11/25/21 Stop Date: 11/25/22 Status: Ordered Shingrix intramuscular injection 0.5 mL, Intramuscular, Once, # 0.5 mL, 1 Refills, Soft Stop, 06/28/18 10:24:17 EDT Start Date: 06/28/18 Status: Ordered terbinafine 1% topical cream 1 application, Topically, 2 times a day, # 30 Gm, 1 Refills, Maintenance, 05/11/22 14:45:00 EDT, Cream, [facility], Partial fill upon patient request if [...] VITAMIN SUPPLEMENT, # 30 tablet, 5 Refills, [facility], 30, TAKE 1 TABLET BY MOUTH [...] Confirmed Active UI (urinary incontinence) Confirmed Active 25716; repeat 202015; repeat 2018 3egd 2011 barretts, repeat 2014 4egd 2009 positive barretts repeat 2011 5C2 6colonoscopy 2006 nl repeat 2016 7repeat 2024 25418 Diagnosis Diagnosis Type Effective Dates Health Status Clinical Service Informant Gastroesophageal reflux disease with hiatal hernia Discharge Diagnosis 07/27/22 Bustamante's Esophagus Discharge Diagnosis 07/27/22 BPH (benign prostatic hyperplasia) Discharge Diagnosis 07/27/22 Hypercholesterolemia Discharge Diagnosis 07/27/22 Hypertension Discharge Diagnosis 07/27/22 Vital Signs Most recent to oldest [Reference Range]: 1 Height 175.2 cm (07/27/22 11:37 AM) Weight 80.3 kg (07/27/22 11:37 AM) Body Mass Index [18.5-24.99 kg/m2] 26.16 kg/m2 *H* (07/27/22 11:37 AM) Blood Pressure [90-138/55-84 mm Hg] 126/ 74mm Hg (07/27/22 11:37 AM) Mode of Delivery (Oxygen) Room air (07/27/22 11:37 AM) Blood pressure sites Arm, left (07/27/22 11:37 AM) Weight Obtained Via Standing scale (07/27/22 11:37 AM) Social History Social History Type Response Smoking Status Never smoker entered on: 06/25/16 Sex Patient Care team information Personnel Name: La MADISON, Brandon Chamorro Address: Address: [address] [place] [phone]
--- OUTSIDE RECORDS SUMMARY | 2023-06-15 11:56 | XMS_ITS | Continuity of Care Document ---
Author Name Unknown Organization [facility]ace lt Address [address] [place] [address]- Care Team Providers Care Railway Engineer Name Role Phone Brandon Freeman MD Primary Care Physician [facility]counter [facility] Date(s): 09/22/21 - 10/22/21 [facility] Adult [address] [place] [address]- Allergies, Adverse Reactions, Alerts Substance Reaction Severity [...] GIVEN 5Admin Note: [facility]U CLINIC 6Admin Note: [facility] VIS [phone] given 7Admin Note: given in clinic 8Result Comment: Pt. already received on 08/07/2015 Medications bacitracin zinc 500 units/g topical ointment See Instructions, APPLY SMALL AMOUNT TOPICALLY TO SUPERFICIAL WOUNDS 4 TIMES A DAY NEEDED AN ANTIBACTERIAL / CALL MD IF USING FOR MORE THAN 7 DAYS, # 1 Gm, 11 Refills, Acute, [facility], 7, APPLY SMALL AMOUNT TOPICALLY TO [...] CONSTIPATION, # 7 supp, 11 Refills, Acute, [facility], 175.2, cm, 10/12/19 8:18:00 EST, Height [...] 30 SEC... Start Date: 10/26/18 Status: Ordered [facility] oral capsule 1 capsule, By Mouth, Daily, FOR INTESTINAL HEALTH., # 30 capsule, 11 Refills, [facility], 30, TAKE 1 CAPSULE BY MOUTH DAILY FOR INTESTINAL HEALTH, 175.2, cm, 07/20/21 10:29:00 EDT, Height Start Date: 07/23/21 Status: Ordered diazepam 10 mg oral tablet See Instructions, PRN, 1 tablet By Mouth 2 hour prior to medical appointments, # 1 tablet, Refills 5, Tot. Refills 5, Maintenance, for anxiety, 07/20/21 10:26:00 EDT, Instructions Replace Required Details, Route to Pharmacy Electronically, [facility]... Start Date: 07/20/21 Status: Ordered Disposable Enema 7 g-19 g rectal enema See Instructions, ONE ENEMA PER RECTUM DAY 5 WITHOUT BOWEL MOVEMENT / IF NO RESULTS NOTIFY MD / FORCONSTIPATION / IC FLEET ENEMA 7 GM - 19 GM, # 133 mL, 11 Refills, Soft Stop, [facility], 5, ONE ENEMA PER RECTUM DAY 5 WITHOUT BOWEL MOVEMENT / IF... Start Date: 03/11/21 Status: Ordered Ditropan XL 10 mg oral tablet, extended release 10, mg, 1, tablet, By Mouth, Daily, 0, 01/03/07 9:24:09, Print ANNE-MARIE Number, [phone], Constant Indicator Start Date: 01/03/07 Status: Ordered DOK 100 mg oral tablet See Instructions, TAKE 1 TABLET BY MOUTH TWICE DAILY (STOOL SOFTENER EQUIVALENT), # 60 tablet, 5 Refills, Maintenance, [facility], 175.2, cm, 11/28/20 7:21:00 EST, Height [...] Instructions Replace Required Details, Route toPharmacy Electronically, [facility], 175.2, cm... Start Date: 04/09/20 Status: Ordered fit to pt fit to pt, See Instructions, # 1 units, Refills 0, Tot. Refills 0, Maintenance, rigid cervical collar. Fit to pt., 06/21/18 15:59:47 EDT, Compound Start Date: 06/21/18 Status: Ordered Flomax 0.4 mg oral capsule 0.4, mg, 1, capsule, By Mouth, Daily, 0, 0, 01/03/07 9:24:42, Print ANNE-MARIE Number, [phone], Constant Indicator Start Date: 01/03/07 Status: Ordered [...] Gm, 11 Refills, Maintenance, 12/11/19 11:11:00 EST, [facility], APPLY TO EXTERNAL HEMMORRHOIDS TWICE DAILY PRN PER DR FREEMAN, 175.2, cm, 10/12/19 8:18:00 EST, Height,... Start Date: 12/11/19 Status: Ordered ibuprofen 400 mg oral tablet 400 mg, 1, tablet, By Mouth, 3 times a day, PRN, # 30 tablet, Refills 1, Tot. Refills 1, Maintenance, as needed for pain, 12/25/18 11:23:03 EST, Route to Pharmacy Electronically, [id number], [facility] Start Date: 12/25/18 Status: Ordered lactulose 10 gm/15 ml oral syrup = 20 Gm, By Mouth, Daily at bedtime, GIVE WITH., # 946 mL, 11 Refills, [facility], 31, TWO TABLESPOONFULS BY MOUTH DAILY [...] Replace Required Details, Route to Pharmacy Electronically, [facility], 175.2, cm, 07/20/21... Start Date: 08/04/21 Status: Ordered loratadine 10 mg oral tablet 10 mg, 1, tablet, By Mouth, Daily, PER DR FREEMAN, # 30 tablet, Refills 11, Tot. Refills 11, 02/19/20 9:46:00 EDT, Route to Pharmacy Electronically, [facility], 175.2, cm, 10/12/19 8:18:00 EST, Height, 73.2, kg, 03/05/18 17:34:00 EDT, Dry Weight Start Date: 02/19/20 Status: Ordered Milk of Magnesia 8% oral suspension 30 mL = 2.4 Gm, By Mouth, Daily at bedtime, # 900 mL, 5 Refills, Maintenance, 04/02/21 7:35:00 EDT,[facility], 175.2, cm, 11/28/20 7:21:00 EST, Height Start Date: 04/02/21 Stop Date: 09/29/21 Status: Ordered omeprazole 40 mg oral enteric coated capsule See Instructions, TAKE 1 CAPSULE BY MOUTH DAILY FOR GERD, # 30 capsule, 2 Refills, [facility],175.2, cm, 07/20/21 10:29:00 EDT, Height Start Date: 08/31/21 Status: Ordered polyethylene glycol 3350 oral powder for reconstitution See Instructions, MIX 17GM WITH 8 OUNCES OF WATER OR JUICE DAILY AT 5PM FOR CONSTIPATION (POLYETHYLENE GLYCOL), # 510 Gm, 11 Refills, [facility], 30, MIX 17GM WITH 8 OUNCES [...] mL, 4 Refills, Acute, 10/28/20 6:38:00 EST, [facility], 175.2, cm, 07/09/20 10:27:00 EDT, He... [...] Raynaud's phenomenon(Confirmed) Active UI (urinary incontinence)(Confirmed) Active 89651; repeat 2020; repeat 2018 3egd 2012 barretts, repeat 2014 4egd 2009 positive barretts repeat 2012 5C2 6colonoscopy 2007 nl repeat 2017 7repeat 2024 [id number] Social History Social History Type Response Smoking Status Never smoker entered on: 06/25/16 Sex
--- OUTSIDE RECORDS SUMMARY | 2023-06-15 11:56 | XMS_ITS | Continuity of Care Document ---
Author Name Unknown Organization [facility]ace lt Address [address] [place] [address]- Care Team Providers Care Control Chemist Name Role Phone Brandon Freeman MD Primary Care Physician [phone] [facility]counter [facility] Date[facility]): 01/27/21 - 02/26/21 [facility] Adult [address] [place] [address]- Allergies, Adverse Reactions, Alerts Substance Reaction Severity [...] GIVEN 5Admin Note: FLU CLINIC 6Admin Note: Silist[facility] VIS [id number] given 7Admin Note: given in clinic 8Result Comment: Pt. already received on 08/07/2015 Medications bacitracin zinc 500 units/g topical ointment See Instructions, APPLY SMALL AMOUNT TOPICALLY TO SUPERFICIAL WOUNDS 4 TIMES A DAY NEEDED AN ANTIBACTERIAL / CALL MD IF USING FOR MORE THAN 7 DAYS, # 1 Gm, 11 Refills, Acute, [facility], 7, APPLY SMALL AMOUNT TOPICALLY TO [...] CONSTIPATION, # 7 supp, 11 Refills, Acute, [facility], 175.2, cm, 10/12/19 8:18:00 EST, Height [...] Acute 07/27/21 9:44:00 EDT, 08/01/20 9:44:00 EDT, [facility], 1 capsule By Mouth Daily,x90 days,Instr:FOR INTESTINAL HEALTH., 175.2, cm, 07/09/20 10:27:00 E... Start Date: 08/01/20 Stop Date: 07/27/21 Status: Ordered diazepam 10 mg oral tablet See Instructions, PRN, 1 tablet By Mouth 1 hour prior to medical appointments, # 1 tablet, Refills 5, Tot. Refills 5, Maintenance, for anxiety, 01/07/21 11:49:00 EST, Instructions Replace Required Details, Route to Pharmacy Electronically, [facility]... Start Date: 01/07/21 Status: Ordered Ditropan XL 10 mg oral tablet, extended release 10, mg, 1, tablet, By Mouth, Daily, 0, 01/03/07 9:24:09, Print ANNE-MARIE Number, [id number], Constant Indicator Start Date: 01/03/07 Status: Ordered DOK 100 mg oral tablet See Instructions, TAKE 1 TABLET BY MOUTH TWICE DAILY (STOOL SOFTENER EQUIVALENT), # 60 tablet, 5 Refills, Soft Stop, 11/06/20 9:22:00 EST, [facility], 175.2, cm, 07/09/20 10:27:00 EDT, Height [...] Instructions Replace Required Details, Route toPharmacy Electronically, [facility], 175.2, cm... Start Date: 04/09/20 Status: [...] 0, 0, 01/03/07 9:24:42, Print ANNE-MARIE Number, [id number], Constant Indicator Start Date: 01/03/07 Status: Ordered [...] 12/25/18 11:23:03 EST, Route to Pharmacy Electronically, [id number], [facility] Start Date: 12/25/18 Status: Ordered lactulose 10 gm/15 ml oral syrup See Instructions, TWO TABLESPOONFULS BY MOUTH DAILY AT BEDTIME FOR CONSTIPATION / GIVE WITH LIQUIDSJUICE/WATER / 2 TBSP = 30 ML DOSE = 20 GRAMS, # 946 mL, 11 Refills, Soft Stop, 08/15/20 7:20:00 EDT, [facility], TWO TABLESPOONFULS BY MOUTH DAILY... Start Date: 08/15/20 Status: Ordered lisinopril 20 mg oral tablet 1, tablet, By Mouth, Daily in AM, FOR HTN / CALL MD IF SBP>160 OR DBP>100 OR SBP<90 OR DBP<50., # 30 tablet, Refills 5, Tot. Refills 0, Maintenance, 02/03/21 12:45:00 EDT, Route to Pharmacy Electronically, [facility], 175.2, cm, 11/28/20 7:21:00... Start Date: 02/03/21 Status: Ordered loratadine 10 mg oral tablet 10 mg, 1, tablet, By Mouth, Daily, PER DR FREEMAN, # 30 tablet, Refills 11, Tot. Refills 11, 02/19/20 9:46:00 EDT, Route to Pharmacy Electronically, [facility], 175.2, cm, 10/12/19 8:18:00 EST, Height, 73.2, kg, 03/05/18 17:34:00 EDT, Dry Weight Start Date: 02/19/20 Status: Ordered Milk of Magnesia 8% oral suspension 30 mL = 2.4 Gm, By Mouth, Daily at bedtime, # 900 mL, 5 Refills, Maintenance, 09/02/20 12:20:00 EST, [facility], 175.2, cm, 07/09/20 10:27:00 EDT, Height, Dry Weight Start Date: 09/02/20 Stop Date: 03/01/21 Status: Ordered omeprazole 40 mg oral enteric coated capsule 1 capsule = 40 mg, By Mouth, Daily, # 30 capsule, 5 Refills, Maintenance, 12/04/20 6:53:00 EST, EC Capsule, [facility], Partial fill upon patient request if the prescription is for a schedule IIopioid drug., 175.2, cm, 11/28/20 7:21:00 EST, Height Start Date: 12/04/20 Status: Ordered polyethylene glycol 3350 oral powder for reconstitution = 17 Gm, By Mouth, Daily, dissolve in water or juice, # 527 Gm, 11 Refills, Maintenance, 08/26/20 9:54:00 EDT, [facility], 17 Gm By Mouth Daily,Instr:dissolve in water or juice, 175.2, cm, 07/09/20 10:27:00 EDT, Height Start Date: 08/26/20 Status: Ordered pravastatin 40 mg oral tablet 1 tablet, By Mouth, Daily, IN THE PM FOR HYPERLIPIDEMIA., # 30 tablet, 2 Refills, Maintenance, 02/17/21 14:29:00 EDT, [facility], 175.2, cm, 11/28/20 7:21:00 EST, Height Start Date: 02/17/21 Status: Ordered Robafen 100 mg/5 ml oral liquid 10 mL, By Mouth, 4 times a day, PRN NEEDED FOR COUGH/NOTIFY MD IF NO RELIEF AFTER 48 HRS / DOSE =, GUAIFENESIN (TUSSIN MUCUS-CONGEST 100MG/5ML., # 240 mL, 4 Refills, Acute, 10/28/20 6:38:00 EST, [facility], 175.2, cm, 07/09/20 10:27:00 EDT, He... [...] Raynaud's phenomenon(Confirmed) Active UI (urinary incontinence)(Confirmed) Active 00092; repeat 2020; repeat 2017 3egd 2012 barretts, repeat 2014 4egd 2010 positive barretts repeat 2011 5C2 6colonoscopy 2007 nl repeat 2016 7repeat 2024 [id number] Social History Social History Type Response Smoking Status Never smoker entered on: 06/25/16 Sex
--- OUTSIDE RECORDS SUMMARY | 2023-06-15 11:56 | XMS_ITS | Continuity of Care Document ---
Author Name Unknown Organization [facility] lt Address [address] [place] [address]- Care Team Providers Care Phys Ther Name Role Phone Brandon Freeman MD Primary Care Physician [facility]): 08/[facility]/22 - 09/30/22 [facility] Adult [address] [place] [address]- Allergies, Adverse Reactions, Alerts Substance Reaction Severity Status azithromycin Active macrolide antibiotics Active Dust Active ketolides Active Immunizations Given and Recorded Vaccine Date Status Refusal Reason [id number] 12y+ bivalent booster vax 07/22/22 Recorded tetanus-diphtheria [...] clinic 5Admin Note: FLU CLINIC 6Admin Note: [facility]esh [facility] VIS [id number] given 7Admin Note: given in clinic 8Result Comment: Pt. already received on 08/07/2015 Medications bacitracin zinc 500 units/g topical ointment See Instructions, APPLY SMALL AMOUNT TOPICALLY TO SUPERFICIAL WOUNDS 4 TIMES A DAY NEEDED AN ANTIBACTERIAL / CALL MD IF USING FOR MORE THAN 7 DAYS, # 1 Gm, 11 Refills, Acute, [facility], 7, APPLY SMALL AMOUNT TOPICALLY TO [...] FOR CONSTIPATION, # 7 supp, 11 Refills, [facility], 175.2, cm, 07/20/21 10:29:00 EDT, Height [...] 30 capsule, 11 Refills, Maintenance, 07/29/2211:36:00 EDT, [facility], 30, 1 capsule By Mouth Daily,Instr:FOR [...] 19 GM, # 133 mL, 11 Refills, [facility], 5, ONE ENEMA PERRECTUM DAY 5 WITHOUT BOWEL MOVEMENT / IF NO RESULTS... Start Date: 03/16/22 Status: Ordered Ditropan XL 10 mg oral tablet, extended release 10, mg, 1, tablet, By Mouth, Daily, 0, 01/03/07 9:24:09, Print ANNE-MARIE Number, [id number], Constant Indicator Start Date: 01/03/07 Status: Ordered DOK 100 mg oral tablet See Instructions, TAKE 1 TABLET BY MOUTH TWICE DAILY (STOOL SOFTENER EQUIVALENT), # 60 tablet, 5 Refills, Maintenance, 08/12/22 9:24:00 EDT, [facility], 175.2, cm, 07/27/22 11:37:00 EDT, Height [...] Instructions Replace Required Details, Route toPharmacy Electronically, [facility], 175.2, cm... Start Date: 04/09/20 Status: Ordered fit to pt fit to pt, See Instructions, # 1 units, Refills 0, Tot. Refills 0, Maintenance, rigid cervical collar. Fit to pt., 06/21/18 15:59:47 EDT, Compound Start Date: 06/21/18 Status: Ordered Flomax 0.4 mg oral capsule 0.4, mg, 1, capsule, By Mouth, Daily, 0, 0, 01/03/07 9:24:42, Print ANNE-MARIE Number, [id number], Constant Indicator Start Date: 01/03/07 Status: Ordered hydrochlorothiazide 25 mg oral tablet See Instructions, TAKE 1 TAB BY MOUTH DAILY IN AM FOR HTN/MONITOR BP/IF SYSTOLIC MORE THAN 160, DIASTOLIC MORE THAN 100, SYSTOLIC LESS THAN 90, OR DIASTOLIC LESS THAN 50 CALLLA, # 30 tablet, Refills 5, Maintenance, 09/16/22 [...] Gm, 11 Refills, Maintenance, 12/11/19 11:11:00 EST, [facility], APPLY TO EXTERNAL HEMMORRHOIDS TWICE DAILY PRN PER DR FREEMAN, 175.2, cm, 10/12/19 8:18:00 EST, Height,... Start Date: 12/11/19 Status: Ordered ibuprofen 400 mg oral tablet 400 mg, 1, tablet, By Mouth, 3 times a day, PRN, # 30 tablet, Refills 1, Tot. Refills 1, Maintenance, as needed for pain, 12/25/18 11:23:03 EST, Route to Pharmacy Electronically, [id number], [facility] Start Date: 12/25/18 Status: Ordered lactulose 10 gm/15 ml oral syrup = 20 Gm, By Mouth, Daily at bedtime, # 946 mL, 11 Refills, Maintenance, 09/01/22 7:18:00 EDT, [facility], 31, 20 Gm By Mouth Daily [...] FOR ALLERGIC RHINITIS, Route to Pharmacy Electronically, [facility], 175.2, cm, 07/20/21 10:29:00 EDT, Height Start Date: 11/10/21 Status: Ordered Milk of Magnesia 8% oral suspension 30 mL, By Mouth, Daily at bedtime, FOR CONSTIPATION MKMS=4218 MG., # 900 mL, 5 Refills, Maintenance, 07/01/22 13:24:00 EDT, [facility], 175.2, cm, 04/15/22 9:44:00 EDT, Height Start Date: 07/01/22 Status: Ordered omeprazole 40 mg oral enteric coated capsule See Instructions, TAKE 1 CAPSULE BY MOUTH DAILY FOR GERD IN AM, # 30 capsule, 2 Refills, Maintenance, 08/05/22 12:48:00 EDT, [facility], 175.2, cm, 07/27/22 11:37:00 EDT, Height Start Date: 08/05/22 Status: Ordered polyethylene glycol 3350 oral powder for reconstitution See Instructions, MIX 17GM WITH 8 OUNCES OF WATER OR JUICE DAILY AT 5PM FOR CONSTIPATION (POLYETHYLENE GLYCOL), # 510 Gm, 11 Refills, [facility], 30, MIX 17GM WITH 8 OUNCES OF WATER OR JUICE DAILY AT 5PM FOR CONSTIPATION (POLYETHYLENE GLYCOL), 17... Start Date: 09/22/21 Status: Ordered pravastatin 40 mg oral tablet See Instructions, TAKE 1 TABLET BY MOUTH DAILY IN THE PM FOR HYPERLIPIDEMIA, # 30 tablet, 5 Refills, [facility], 175.2, cm, 04/15/22 9:44:00 EDT, Height Start Date: 05/25/22 Status: Ordered Robafen 100 mg/5 ml oral liquid 10 mL, By Mouth, 4 times a day, PRN NEEDED FOR COUGH/NOTIFY MD IF NO RELIEF AFTER 48 HRS / DOSE =, GUAIFENESIN (TUSSIN MUCUS-CONGEST 100MG/5ML., # 240 mL, 4 Refills, Acute 11/25/22 12:02:00 EST, 11/25/21 12:02:00 EST, [facility], 175.2, cm, 09... Start Date: 11/25/21 Stop Date: 11/25/22 Status: Ordered Shingrix intramuscular injection 0.5 mL, Intramuscular, Once, # 0.5 mL, 1 Refills, Soft Stop, 06/28/18 10:24:17 EDT Start Date: 06/28/18 Status: Ordered terbinafine 1% topical cream 1 application, Topically, 2 times a day, # 30 Gm, 1 Refills, Maintenance, 05/11/22 14:45:00 EDT, Cream, [facility], Partial fill upon patient request if [...] VITAMIN SUPPLEMENT, # 30 tablet, 5 Refills, [facility], 30, TAKE 1 TABLET BY MOUTH [...] Confirmed Active UI (urinary incontinence) Confirmed Active 41499; repeat 2020 76419; repeat 2017 3egd 2011 barretts, repeat 2014 4egd 2009 positive barretts repeat 2011 5C2 6colonoscopy 2006 nl repeat 2016 7repeat 2024 [id number] Social History Social History Type Response Smoking Status Never smoker entered on: 06/25/16 Sex Patient Care team information Care Team Personnel Name: Hannah Roque RN Position: [facility] RN Member Role: Primary Care Nurse Name: Reggie Godinez RN Position: S RN Member Role: Primary Care Nurse Name: Christiane Cedillo RN Position: S RN Member Role: Primary Care Nurse Name: Brandon Freeman MD Position: [facility] Primary Care Physician Member Role: PCP Address: Address: [address] [place], [place] [address], [place] [address]- [place] Name: Janeen Hoskins RN Position: [facility] RN Member Role: Primary Care Nurse Name: Cydney Mckinney RN Position: [facility] RN Member Role: Primary Care Nurse Name: Frantz Mi III, RN Position: [facility] RN Member Role: Primary Care Nurse Name: Tahmina PHYSICIAN PRACTICE MANAGER, Cate Melgar Position: Reference Physician Member Role: Primary Care Nurse Address: Address: [address] [place] [id number]- [place] Name: Fay Morton RN Position: [facility] RN Member Role: Primary Care Nurse Name: Massiel Lu RN Position: [facility] RN Member Role: Primary Care Nurse Name: Lurdes Mujica RN Position: [facility] RN Member Role: Primary Care Nurse Name: Brandie Horvath RN Position: [facility] Track Repair Laborer Member Role: Primary Care Nurse Name: Shyam VELAZQUEZ Hteekaolivia Position: [facility] RN Member Role: Primary Care Nurse Care Team Related Persons Name: JOHAN PERKINS Name: DAWOOD DE LOS SANTOS Address: home [address] [place] [id number] Name: JENNIFER JUAREZ Address: home [address] [place] [address]
--- OUTSIDE RECORDS SUMMARY | 2023-06-15 11:56 | XMS_ITS | Continuity of Care Document ---
Author Name Unknown Organization [facility] lt Address [address] [place] [address]- Care Team Providers Care Program Director/Traffic Director Name Role Phone Brandon Freeman MD Primary Care Physician [facility]): 08[facility]10[facility]22 - 09/09/22 [facility] Adult [address] [place] [address]- Allergies, Adverse Reactions, Alerts Substance Reaction Severity Status azithromycin Active macrolide antibiotics Active Dust Active ketolides Active Immunizations Given and Recorded Vaccine Date Status Refusal Reason [id number] 12y+ bivalent booster vax 07/22/22 Recorded tetanus-diphtheria [...] clinic 5Admin Note: FLU CLINIC 6Admin Note: [employer] [facility] VIS [id number] given 7Admin Note: given in clinic 8Result Comment: Pt. already received on 08/07/2015 Medications bacitracin zinc 500 units/g topical ointment See Instructions, APPLY SMALL AMOUNT TOPICALLY TO SUPERFICIAL WOUNDS 4 TIMES A DAY NEEDED AN ANTIBACTERIAL / CALL MD IF USING FOR MORE THAN 7 DAYS, # 1 Gm, 11 Refills, Acute, [facility], 7, APPLY SMALL AMOUNT TOPICALLY TO [...] FOR CONSTIPATION, # 7 supp, 11 Refills, [facility], 175.2, cm, 07/20/21 10:29:00 EDT, Height [...] 30 capsule, 11 Refills, Maintenance, 07/29/2211:36:00 EDT, [facility], 30, 1 capsule By Mouth Daily,Instr:FOR [...] 19 GM, # 133 mL, 11 Refills, [facility], 5, ONE ENEMA PERRECTUM DAY 5 WITHOUT BOWEL MOVEMENT / IF NO RESULTS... Start Date: 03/16/22 Status: Ordered Ditropan XL 10 mg oral tablet, extended release 10, mg, 1, tablet, By Mouth, Daily, 0, 01/03/07 9:24:09, Print ANNE-MARIE Number, [id number], Constant Indicator Start Date: 01/03/07 Status: Ordered DOK 100 mg oral tablet See Instructions, TAKE 1 TABLET BY MOUTH TWICE DAILY (STOOL SOFTENER EQUIVALENT), # 60 tablet, 5 Refills, Maintenance, 08/12/22 9:24:00 EDT, [facility], 175.2, cm, 07/27/22 11:37:00 EDT, Height [...] Instructions Replace Required Details, Route toPharmacy Electronically, [facility], 175.2, cm... Start Date: 04/09/20 Status: Ordered fit to pt fit to pt, See Instructions, # 1 units, Refills 0, Tot. Refills 0, Maintenance, rigid cervical collar. Fit to pt., 06/21/18 15:59:47 EDT, Compound Start Date: 06/21/18 Status: Ordered Flomax 0.4 mg oral capsule 0.4, mg, 1, capsule, By Mouth, Daily, 0, 0, 01/03/07 9:24:42, Print ANNE-MARIE Number, [id number], Constant Indicator Start Date: 01/03/07 Status: Ordered hydrochlorothiazide 25 mg oral tablet See Instructions, TAKE 1 TAB BY MOUTH DAILY IN AM FOR HTN/MONITOR BP/IF SYSTOLIC MORE THAN 160, DIASTOLIC MORE THAN 100, SYSTOLIC LESS THAN 90, OR DIASTOLIC LESS THAN 50 CALLND, # 30 tablet, Refills 2, Instructions Replace [...] Gm, 11 Refills, Maintenance, 12/11/19 11:11:00 EST, [facility], APPLY TO EXTERNAL HEMMORRHOIDS TWICE DAILY PRN PER DR FREEMAN, 175.2, cm, 10/12/19 8:18:00 EST, Height,... Start Date: 12/11/19 Status: Ordered ibuprofen 400 mg oral tablet 400 mg, 1, tablet, By Mouth, 3 times a day, PRN, # 30 tablet, Refills 1, Tot. Refills 1, Maintenance, as needed for pain, 12/25/18 11:23:03 EST, Route to Pharmacy Electronically, [id number], [facility] Start Date: 12/25/18 Status: Ordered lactulose 10 gm/15 ml oral syrup = 20 Gm, By Mouth, Daily at bedtime, # 946 mL, 11 Refills, Maintenance, 09/01/22 7:18:00 EDT, [facility], 31, 20 Gm By Mouth Daily [...] FOR ALLERGIC RHINITIS, Route to Pharmacy Electronically, [facility], 175.2, cm, 07/20/21 10:29:00 EDT, Height Start Date: 11/10/21 Status: Ordered Milk of Magnesia 8% oral suspension 30 mL, By Mouth, Daily at bedtime, FOR CONSTIPATION VHYB=3725 MG., # 900 mL, 5 Refills, Maintenance, 07/01/22 13:24:00 EDT, [facility], 175.2, cm, 04/15/22 9:44:00 EDT, Height Start Date: 07/01/22 Status: Ordered omeprazole 40 mg oral enteric coated capsule See Instructions, TAKE 1 CAPSULE BY MOUTH DAILY FOR GERD IN AM, # 30 capsule, 2 Refills, Maintenance, 08/05/22 12:48:00 EDT, [facility], 175.2, cm, 07/27/22 11:37:00 EDT, Height Start Date: 08/05/22 Status: Ordered polyethylene glycol 3350 oral powder for reconstitution See Instructions, MIX 17GM WITH 8 OUNCES OF WATER OR JUICE DAILY AT 5PM FOR CONSTIPATION (POLYETHYLENE GLYCOL), # 510 Gm, 11 Refills, [facility], 30, MIX 17GM WITH 8 OUNCES OF WATER OR JUICE DAILY AT 5PM FOR CONSTIPATION (POLYETHYLENE GLYCOL), 17... Start Date: 09/22/21 Status: Ordered pravastatin 40 mg oral tablet See Instructions, TAKE 1 TABLET BY MOUTH DAILY IN THE PM FOR HYPERLIPIDEMIA, # 30 tablet, 5 Refills, [facility], 175.2, cm, 04/15/22 9:44:00 EDT, Height Start Date: 05/25/22 Status: Ordered Robafen 100 mg/5 ml oral liquid 10 mL, By Mouth, 4 times a day, PRN NEEDED FOR COUGH/NOTIFY MD IF NO RELIEF AFTER 48 HRS / DOSE =, GUAIFENESIN (TUSSIN MUCUS-CONGEST 100MG/5ML., # 240 mL, 4 Refills, Acute 11/25/22 12:02:00 EST, 11/25/21 12:02:00 EST, [facility], 175.2, cm, 09... Start Date: 11/25/21 Stop Date: 11/25/22 Status: Ordered Shingrix intramuscular injection 0.5 mL, Intramuscular, Once, # 0.5 mL, 1 Refills, Soft Stop, 06/28/18 10:24:17 EDT Start Date: 06/28/18 Status: Ordered terbinafine 1% topical cream 1 application, Topically, 2 times a day, # 30 Gm, 1 Refills, Maintenance, 05/11/22 14:45:00 EDT, Cream, [facility], Partial fill upon patient request if [...] VITAMIN SUPPLEMENT, # 30 tablet, 5 Refills, [facility], 30, TAKE 1 TABLET BY MOUTH [...] Confirmed Active UI (urinary incontinence) Confirmed Active 25044; repeat 2020 90871; repeat 2017 3egd 2011 barretts, repeat 2014 4egd 2009 positive barretts repeat 2011 5C2 6colonoscopy 2006 nl repeat 2016 7repeat 2024 [id number] Social History Social History Type Response Smoking [...] Care Physician Member Role: PCP Address: Address: [address] [place] [phone]- [place] Name: Janeen Hoskins RN Position: [facility] RN Member Role: Primary Care Nurse Name: Cydney Mckinney RN Position: [facility] RN Member Role: Primary Care Nurse Name: Frantz Mi III, RN Position: [facility] RN Member Role: Primary Care Nurse Name: Cate Martel NP Position: Reference Physician Member Role: Primary Care Nurse Address: Address: [address] [place] [address]- Name: Fay Morton RN Position: [facility] RN Member Role: Primary Care Nurse Name: Massiel Lu RN Position: [facility] RN Member Role: Primary Care Nurse Name: Lurdes Mujica RN Position: [facility] RN Member Role: Primary Care Nurse Name: Brandie Horvath RN Position: [facility] Tennis Court Attendant Member Role: Primary Care Nurse Name: Claribel Howe RN Position: [facility] RN Member Role: Primary Care Nurse Care Team Related Persons Name: JOHAN PERKINS Name: DAWOOD DE LOS SANTOS Address: home [address] [place] [id number] Name: JENNIFER JUAREZ Address: home [address] [place] [id number]
--- OUTSIDE RECORDS SUMMARY | 2023-06-15 11:56 | XMS_ITS | Continuity of Care Document ---
Author Name Unknown Organization [facility] Chace lt Address [address] [place] [address]- Care Team Providers Care Organ Pipe Voicer Name Role Phone Brandon Freeman MD Primary Care Phys[facility] - 12/17/20 [facility] Adult [address] [place] [address]- Allergies, Adverse Reactions, Alerts Substance Reaction Severity [...] GIVEN 5Admin Note: [facility] 6Admin Note: [employer] [facility] VIS [phone] given 7Admin Note: given in clinic 8Result Comment: Pt. already received on 08/07/2015 Medications bacitracin zinc 500 units/g topical ointment See Instructions, APPLY SMALL AMOUNT TOPICALLY TO SUPERFICIAL WOUNDS 4 TIMES A DAY NEEDED AN ANTIBACTERIAL / CALL MD IF USING FOR MORE THAN 7 DAYS, # 1 Gm, 11 Refills, Acute, [facility], 7, APPLY SMALL AMOUNT TOPICALLY TO [...] CONSTIPATION, # 7 supp, 11 Refills, Acute, [facility], 175.2, cm, 10/12/19 8:18:00 EST, Height [...] Acute 07/27/21 9:44:00 EDT, 08/01/20 9:44:00 EDT, [facility], 1 capsule By Mouth Daily,x90 days,Instr:FOR [...] Replace Required Details, Route to Pharmacy Electronically, [facility] Start Date: 12/09/20 Status: Ordered Ditropan XL 10 mg oral tablet, extended release 10, mg, 1, tablet, By Mouth, Daily, 0, 01/03/07 9:24:09, Print ANNE-MARIE Number, [id number], Constant Indicator Start Date: 01/03/07 Status: Ordered DOK 100 mg oral tablet See Instructions, TAKE 1 TABLET BY MOUTH TWICE DAILY (STOOL SOFTENER EQUIVALENT), # 60 tablet, 5 Refills, Soft Stop, 11/06/20 9:22:00 EST, [facility], 175.2, cm, 07/09/20 10:27:00 EDT, Height [...] Instructions Replace Required Details, Route toPharmacy Electronically, [facility], 175.2, cm... Start Date: 04/09/20 Status: [...] 0, 0, 01/03/07 9:24:42, Print ANNE-MARIE Number, [id number], Constant Indicator Start Date: 01/03/07 Status: Ordered [...] 12/25/18 11:23:03 EST, Route to Pharmacy Electronically, [id number], [facility] Start Date: 12/25/18 Status: Ordered lactulose 10 gm/15 ml oral syrup See Instructions, TWO TABLESPOONFULS BY MOUTH DAILY AT BEDTIME FOR CONSTIPATION / GIVE WITH LIQUIDSJUICE/WATER / 2 TBSP = 30 ML DOSE = 20 GRAMS, # 946 mL, 11 Refills, Soft Stop, 08/15/20 7:20:00 EDT, [facility], TWO TABLESPOONFULS BY MOUTH DAILY... Start Date: 08/15/20 Status: Ordered loratadine 10 mg oral tablet 10 mg, 1, tablet, By Mouth, Daily, PER DR FREEMAN, # 30 tablet, Refills 11, Tot. Refills 11, 02/19/20 9:46:00 EDT, Route to Pharmacy Electronically, [facility], 175.2, cm, 10/12/19 8:18:00 EST, Height, 73.2, kg, 03/05/18 17:34:00 EDT, Dry Weight Start Date: 02/19/20 Status: Ordered Milk of Magnesia 8% oral suspension 30 mL = 2.4 Gm, By Mouth, Daily at bedtime, # 900 mL, 5 Refills, Maintenance, 09/02/20 12:20:00 EST, [facility], 175.2, cm, 07/09/20 10:27:00 EDT, Height, Dry Weight Start Date: 09/02/20 Stop Date: 03/01/21 Status: Ordered omeprazole 40 mg oral enteric coated capsule 1 capsule = 40 mg, By Mouth, Daily, # 30 capsule, 5 Refills, Maintenance, 12/04/20 6:53:00 EST, EC Capsule, [facility], Partial fill upon patient request if the prescription is for a schedule IIopioid drug., 175.2, cm, 11/28/20 7:21:00 EST, Height Start Date: 12/04/20 Status: Ordered polyethylene glycol 3350 oral powder for reconstitution = 17 Gm, By Mouth, Daily, dissolve in water or juice, # 527 Gm, 11 Refills, Maintenance, 08/26/20 9:54:00 EDT, [facility], 17 Gm By Mouth Daily,Instr:dissolve in water or juice, 175.2, cm, 07/09/20 10:27:00 EDT, Height Start Date: 08/26/20 Status: Ordered pravastatin 40 mg oral tablet 1 tablet = 40 mg, By Mouth, Daily, Pt needs labs, # 30 tablet, 2 Refills, Soft Stop, 11/17/20 12:45:00 EST, [facility], 175.2, cm, 07/09/20 10:27:00 EDT, Height Start Date: 11/17/20 Status: Ordered Robafen 100 mg/5 ml oral liquid 10 mL, By Mouth, 4 times a day, PRN NEEDED FOR COUGH/NOTIFY MD IF NO RELIEF AFTER 48 HRS / DOSE =, GUAIFENESIN (TUSSIN MUCUS-CONGEST 100MG/5ML., # 240 mL, 4 Refills, Acute, 10/28/20 6:38:00 EST, [facility], 175.2, cm, 07/09/20 10:27:00 EDT, He... [...] 08/07/20 12:37:00 EDT, Route to Pharmacy Electronically, [facility], 175.2, cm, 07/09/20 10:27:00 EDT, Height, [...] Raynaud's phenomenon(Confirmed) Active UI (urinary incontinence)(Confirmed) Active 24372; repeat 2020; repeat 2017 3egd 2012 barretts, repeat 2014 4egd 2010 positive barretts repeat 2011 5C2 6colonoscopy 2007 nl repeat 2016 7repeat 2024 [id number] Social History Social History Type Response Smoking Status Never smoker entered on: 06/25/16 Sex
--- OUTSIDE RECORDS SUMMARY | 2023-06-15 11:57 | XMS_ITS | Continuity of Care Document ---
Author Name Unknown Organization [facility] lt Address [address] [place] [address]- Care Team Providers Care Ophthalmology Assistant Name Role Phone Brandon Freeman MD Primary Care Physician [facility] 12[facility]20 - 01/10/21 [facility] Adult [address] [place] [address]- Allergies, Adverse Reactions, Alerts Substance Reaction Severity [...] GIVEN 5Admin Note: [facility]IC 6Admin Note: [employer] [facility] VIS [phone] given 7Admin Note: given in clinic 8Result Comment: Pt. already received on 08/07/2015 Medications bacitracin zinc 500 units/g topical ointment See Instructions, APPLY SMALL AMOUNT TOPICALLY TO SUPERFICIAL WOUNDS 4 TIMES A DAY NEEDED AN ANTIBACTERIAL / CALL MD IF USING FOR MORE THAN 7 DAYS, # 1 Gm, 11 Refills, Acute, [facility], 7, APPLY SMALL AMOUNT TOPICALLY TO [...] CONSTIPATION, # 7 supp, 11 Refills, Acute, [facility], 175.2, cm, 10/12/19 8:18:00 EST, Height [...] Acute 07/27/21 9:44:00 EDT, 08/01/20 9:44:00 EDT, [facility], 1 capsule By Mouth Daily,x90 days,Instr:FOR INTESTINAL HEALTH., 175.2, cm, 07/09/20 10:27:00 E... Start Date: 08/01/20 Stop Date: 07/27/21 Status: Ordered diazepam 10 mg oral tablet See Instructions, PRN, 1 tablet By Mouth 1 hour prior to medical appointments, # 1 tablet, Refills 5, Tot. Refills 5, Maintenance, for anxiety, 01/07/21 11:49:00 EST, Instructions Replace Required Details, Route to Pharmacy Electronically, [facility] Start Date: 01/07/21 Status: Ordered Ditropan XL 10 mg oral tablet, extended release 10, mg, 1, tablet, By Mouth, Daily, 0, 01/03/07 9:24:09, Print ANNE-MARIE Number, [id number], Constant Indicator Start Date: 01/03/07 Status: Ordered DOK 100 mg oral tablet See Instructions, TAKE 1 TABLET BY MOUTH TWICE DAILY (STOOL SOFTENER EQUIVALENT), # 60 tablet, 5 Refills, Soft Stop, 11/06/20 9:22:00 EST, [facility], 175.2, cm, 07/09/20 10:27:00 EDT, Height [...] Instructions Replace Required Details, Route toPharmacy Electronically, [facility], 175.2, cm... Start Date: 04/09/20 Status: [...] 0, 0, 01/03/07 9:24:42, Print ANNE-MARIE Number, [id number], Constant Indicator Start Date: 01/03/07 Status: Ordered [...] 12/25/18 11:23:03 EST, Route to Pharmacy Electronically, [id number], [facility] Start Date: 12/25/18 Status: Ordered lactulose 10 gm/15 ml oral syrup See Instructions, TWO TABLESPOONFULS BY MOUTH DAILY AT BEDTIME FOR CONSTIPATION / GIVE WITH LIQUIDSJUICE/WATER / 2 TBSP = 30 ML DOSE = 20 GRAMS, # 946 mL, 11 Refills, Soft Stop, 08/15/20 7:20:00 EDT, [facility], TWO TABLESPOONFULS BY MOUTH DAILY... Start Date: 08/15/20 Status: Ordered loratadine 10 mg oral tablet 10 mg, 1, tablet, By Mouth, Daily, PER DR FREEMAN, # 30 tablet, Refills 11, Tot. Refills 11, 02/19/20 9:46:00 EDT, Route to Pharmacy Electronically, [facility], 175.2, cm, 10/12/19 8:18:00 EST, Height, 73.2, kg, 03/05/18 17:34:00 EDT, Dry Weight Start Date: 02/19/20 Status: Ordered Milk of Magnesia 8% oral suspension 30 mL = 2.4 Gm, By Mouth, Daily at bedtime, # 900 mL, 5 Refills, Maintenance, 09/02/20 12:20:00 EST, [facility], 175.2, cm, 07/09/20 10:27:00 EDT, Height, Dry Weight Start Date: 09/02/20 Stop Date: 03/01/21 Status: Ordered omeprazole 40 mg oral enteric coated capsule 1 capsule = 40 mg, By Mouth, Daily, # 30 capsule, 5 Refills, Maintenance, 12/04/20 6:53:00 EST, EC Capsule, [facility], Partial fill upon patient request if the prescription is for a schedule IIopioid drug., 175.2, cm, 11/28/20 7:21:00 EST, Height Start Date: 12/04/20 Status: Ordered polyethylene glycol 3350 oral powder for reconstitution = 17 Gm, By Mouth, Daily, dissolve in water or juice, # 527 Gm, 11 Refills, Maintenance, 08/26/20 9:54:00 EDT, [facility], 17 Gm By Mouth Daily,Instr:dissolve in water or juice, 175.2, cm, 07/09/20 10:27:00 EDT, Height Start Date: 08/26/20 Status: Ordered pravastatin 40 mg oral tablet 1 tablet = 40 mg, By Mouth, Daily, Pt needs labs, # 30 tablet, 2 Refills, Soft Stop, 11/17/20 12:45:00 EST, [facility], 175.2, cm, 07/09/20 10:27:00 EDT, Height Start Date: 11/17/20 Status: Ordered Robafen 100 mg/5 ml oral liquid 10 mL, By Mouth, 4 times a day, PRN NEEDED FOR COUGH/NOTIFY MD IF NO RELIEF AFTER 48 HRS / DOSE =, GUAIFENESIN (TUSSIN MUCUS-CONGEST 100MG/5ML., # 240 mL, 4 Refills, Acute, 10/28/20 6:38:00 EST, [facility], 175.2, cm, 07/09/20 10:27:00 EDT, He... [...] 08/07/20 12:37:00 EDT, Route to Pharmacy Electronically, [facility], 175.2, cm, 07/09/20 10:27:00 EDT, Height, [...] Raynaud's phenomenon(Confirmed) Active UI (urinary incontinence)(Confirmed) Active 26329; repeat 2020; repeat 2017 3egd 2011 barretts, repeat 2014 4egd 2009 positive barretts repeat 2011 5C2 6colonoscopy 2007 nl repeat 2016 7repeat 2024 [id number] Social History Social History Type Response Smoking Status Never smoker entered on: 06/25/16 Sex
--- OUTSIDE RECORDS SUMMARY | 2023-06-15 11:57 | XMS_ITS | Continuity of Care Document ---
Author Name Unknown Organization [facility] lt Address [address] [place] [address]- Care Team Providers Care Quality Measurement Specialist Name Role Phone Brandon Freeman MD Primary Care Physician [facility] 04[facility]21 - 05/02/21 [facility] Adult [address] [place] [address]- Allergies, Adverse Reactions, Alerts Substance Reaction Severity [...] GIVEN 5Admin Note: [facility] CLINIC 6Admin Note: [employer] [facility] VIS [phone] given 7Admin Note: given in clinic 8Result Comment: Pt. already received on 08/07/2015 Medications bacitracin zinc 500 units/g topical ointment See Instructions, APPLY SMALL AMOUNT TOPICALLY TO SUPERFICIAL WOUNDS 4 TIMES A DAY NEEDED AN ANTIBACTERIAL / CALL MD IF USING FOR MORE THAN 7 DAYS, # 1 Gm, 11 Refills, Acute, [facility], 7, APPLY SMALL AMOUNT TOPICALLY TO [...] CONSTIPATION, # 7 supp, 11 Refills, Acute, [facility], 175.2, cm, 10/12/19 8:18:00 EST, Height [...] Replace Required Details, Route to Pharmacy Electronically, [facility] Start Date: 01/07/21 Status: Ordered Disposable Enema 7 g-19 g rectal enema See Instructions, ONE ENEMA PER RECTUM DAY 5 WITHOUT BOWEL MOVEMENT / IF NO RESULTS NOTIFY MD / FORCONSTIPATION / IC FLEET ENEMA 7 GM - 19 GM, # 133 mL, 11 Refills, Soft Stop, [facility], 5, ONE ENEMA PER RECTUM DAY 5 WITHOUT BOWEL MOVEMENT / IF... Start Date: 03/11/21 Status: Ordered Ditropan XL 10 mg oral tablet, extended release 10, mg, 1, tablet, By Mouth, Daily, 0, 01/03/07 9:24:09, Print ANNE-MARIE Number, [id number], Constant Indicator Start Date: 01/03/07 Status: Ordered DOK 100 mg oral tablet See Instructions, TAKE 1 TABLET BY MOUTH TWICE DAILY (STOOL SOFTENER EQUIVALENT), # 60 tablet, 5 Refills, Soft Stop, 11/06/20 9:22:00 EST, [facility], 175.2, cm, 07/09/20 10:27:00 EDT, Height [...] Instructions Replace Required Details, Route toPharmacy Electronically, [facility], 175.2, cm... Start Date: 04/09/20 Status: Ordered fit to pt fit to pt, See Instructions, # 1 units, Refills 0, Tot. Refills 0, Maintenance, rigid cervical collar. Fit to pt., 06/21/18 15:59:47 EDT, Compound Start Date: 06/21/18 Status: Ordered Flomax 0.4 mg oral capsule 0.4, mg, 1, capsule, By Mouth, Daily, 0, 0, 01/03/07 9:24:42, Print ANNE-MARIE Number, [id number], Constant Indicator Start Date: 01/03/07 Status: Ordered [...] Gm, 11 Refills, Maintenance, 12/11/19 11:11:00 EST, [facility], APPLY TO EXTERNAL HEMMORRHOIDS TWICE DAILY PRN PER DR FREEMAN, 175.2, cm, 10/12/19 8:18:00 EST, Height,... Start Date: 12/11/19 Status: Ordered ibuprofen 400 mg oral tablet 400 mg, 1, tablet, By Mouth, 3 times a day, PRN, # 30 tablet, Refills 1, Tot. Refills 1, Maintenance, as needed for pain, 12/25/18 11:23:03 EST, Route to Pharmacy Electronically, [id number], [facility] Start Date: 12/25/18 Status: Ordered lactulose 10 gm/15 ml oral syrup See Instructions, TWO TABLESPOONFULS BY MOUTH DAILY AT BEDTIME FOR CONSTIPATION / GIVE WITH LIQUIDSJUICE/WATER / 2 TBSP = 30 ML DOSE = 20 GRAMS, # 946 mL, 11 Refills, Soft Stop, 08/15/20 7:20:00 EDT, [facility], TWO TABLESPOONFULS BY MOUTH DAILY... Start Date: 08/15/20 Status: Ordered lisinopril 20 mg oral tablet 1, tablet, By Mouth, Daily in AM, FOR HTN / CALL MD IF SBP>160 OR DBP>100 OR SBP<90 OR DBP<50., # 30 tablet, Refills 5, Tot. Refills 0, Maintenance, 02/03/21 12:45:00 EDT, Route to Pharmacy Electronically, [facility], 175.2, cm, 11/28/20 7:21:00... Start Date: 02/03/21 Status: Ordered loratadine 10 mg oral tablet 10 mg, 1, tablet, By Mouth, Daily, PER DR FREEMAN, # 30 tablet, Refills 11, Tot. Refills 11, 02/19/20 9:46:00 EDT, Route to Pharmacy Electronically, [facility], 175.2, cm, 10/12/19 8:18:00 EST, Height, 73.2, kg, 03/05/18 17:34:00 EDT, Dry Weight Start Date: 02/19/20 Status: Ordered Milk of Magnesia 8% oral suspension 30 mL = 2.4 Gm, By Mouth, Daily at bedtime, # 900 mL, 5 Refills, Maintenance, 04/02/21 7:35:00 EDT,[facility], 175.2, cm, 11/28/20 7:21:00 EST, Height Start Date: 04/02/21 Stop Date: 09/29/21 Status: Ordered omeprazole 40 mg oral enteric coated capsule 1 capsule = 40 mg, By Mouth, Daily, # 30 capsule, 5 Refills, Maintenance, 12/04/20 6:53:00 EST, EC Capsule, [facility], Partial fill upon patient request if the prescription is for a schedule IIopioid drug., 175.2, cm, 11/28/20 7:21:00 EST, Height Start Date: 12/04/20 Status: Ordered polyethylene glycol 3350 oral powder for reconstitution = 17 Gm, By Mouth, Daily, dissolve in water or juice, # 527 Gm, 11 Refills, Maintenance, 08/26/20 9:54:00 EDT, [facility], 17 Gm By Mouth Daily,Instr:dissolve in water or juice, 175.2, cm, 07/09/20 10:27:00 EDT, Height Start Date: 08/26/20 Status: Ordered pravastatin 40 mg oral tablet 1 tablet, By Mouth, Daily, IN THE PM FOR HYPERLIPIDEMIA., # 30 tablet, 2 Refills, Maintenance, 02/17/21 14:29:00 EDT, [facility], 175.2, cm, 11/28/20 7:21:00 EST, Height Start Date: 02/17/21 Status: Ordered Robafen 100 mg/5 ml oral liquid 10 mL, By Mouth, 4 times a day, PRN NEEDED FOR COUGH/NOTIFY MD IF NO RELIEF AFTER 48 HRS / DOSE =, GUAIFENESIN (TUSSIN MUCUS-CONGEST 100MG/5ML., # 240 mL, 4 Refills, Acute, 10/28/20 6:38:00 EST, [facility], 175.2, cm, 07/09/20 10:27:00 EDT, He... [...] Raynaud's phenomenon(Confirmed) Active UI (urinary incontinence)(Confirmed) Active 64527; repeat 2020; repeat 2017 3egd 2012 barretts, repeat 2014 4egd 2010 positive barretts repeat 2011 5C2 6colonoscopy 2007 nl repeat 2016 7repeat 2024 [id number] Social History Social History Type Response Smoking Status Never smoker entered on: 06/25/16 Sex
--- OUTSIDE RECORDS SUMMARY | 2023-06-15 11:57 | XMS_ITS | Continuity of Care Document ---
Author Name Unknown Organization [facility] lt Address [address] [place] [address]- Care Team Providers Care Gage Maker Name Role Phone Brandon Freeman MD Primary Care Physician [facility] 03[facility]08[facility]22 - 04/07/22 [facility] Adult [address] [place] [address]- Allergies, Adverse Reactions, Alerts Substance Reaction Severity [...] GIVEN 5Admin Note: [facility]U CLINIC 6Admin Note: [employer] [facility] VIS [phone] given 7Admin Note: given in clinic 8Result Comment: Pt. already received on 08/07/2015 Medications bacitracin zinc 500 units/g topical ointment See Instructions, APPLY SMALL AMOUNT TOPICALLY TO SUPERFICIAL WOUNDS 4 TIMES A DAY NEEDED AN ANTIBACTERIAL / CALL MD IF USING FOR MORE THAN 7 DAYS, # 1 Gm, 11 Refills, Acute, [facility], 7, APPLY SMALL AMOUNT TOPICALLY TO [...] FOR CONSTIPATION, # 7 supp, 11 Refills, [facility], 175.2, cm, 07/20/21 10:29:00 EDT, Height [...] INTESTINAL HEALTH., # 30 capsule, 11 Refills, [facility], 30, TAKE 1 CAPSULE BY MOUTH [...] 19 GM, # 133 mL, 11 Refills, [facility], 5, ONE ENEMA PERRECTUM DAY 5 WITHOUT BOWEL MOVEMENT / IF NO RESULTS... Start Date: 03/16/22 Status: Ordered Ditropan XL 10 mg oral tablet, extended release 10, mg, 1, tablet, By Mouth, Daily, 0, 01/03/07 9:24:09, Print ANNE-MARIE Number, [id number], Constant Indicator Start Date: 01/03/07 Status: Ordered DOK 100 mg oral tablet See Instructions, TAKE 1 TABLET BY MOUTH TWICE DAILY (STOOL SOFTENER EQUIVALENT), # 60 tablet, 5 Refills, [facility], 175.2, cm, 07/20/21 10:29:00 EDT, Height [...] Instructions Replace Required Details, Route toPharmacy Electronically, [facility], 175.2, cm... Start Date: 04/09/20 Status: Ordered fit to pt fit to pt, See Instructions, # 1 units, Refills 0, Tot. Refills 0, Maintenance, rigid cervical collar. Fit to pt., 06/21/18 15:59:47 EDT, Compound Start Date: 06/21/18 Status: Ordered Flomax 0.4 mg oral capsule 0.4, mg, 1, capsule, By Mouth, Daily, 0, 0, 01/03/07 9:24:42, Print ANNE-MARIE Number, [id number], Constant Indicator Start Date: 01/03/07 Status: Ordered [...] Gm, 11 Refills, Maintenance, 12/11/19 11:11:00 EST, [facility], APPLY TO EXTERNAL HEMMORRHOIDS TWICE DAILY PRN PER DR FREEMAN, 175.2, cm, 10/12/19 8:18:00 EST, Height,... Start Date: 12/11/19 Status: Ordered ibuprofen 400 mg oral tablet 400 mg, 1, tablet, By Mouth, 3 times a day, PRN, # 30 tablet, Refills 1, Tot. Refills 1, Maintenance, as needed for pain, 12/25/18 11:23:03 EST, Route to Pharmacy Electronically, [id number], [facility] Start Date: 12/25/18 Status: Ordered lactulose 10 gm/15 ml oral syrup = 20 Gm, By Mouth, Daily at bedtime, GIVE WITH., # 946 mL, 11 Refills, [facility], 31, TWO TABLESPOONFULS BY MOUTH DAILY [...] FOR ALLERGIC RHINITIS, Route to Pharmacy Electronically, [facility], 175.2, cm, 07/20/21 10:29:00 EDT, Height Start Date: 11/10/21 Status: Ordered Milk of Magnesia 8% oral suspension 30 mL, By Mouth, Daily at bedtime, FOR CONSTIPATION USIT=4004 MG., # 900 mL, 5 Refills, [facility], 175.2, cm, 07/20/21 10:29:00 EDT, Height Start Date: 11/24/21 Status: Ordered omeprazole 40 mg oral enteric coated capsule See Instructions, TAKE 1 CAPSULE BY MOUTH DAILY FOR GERD IN AM, # 30 capsule, 2 Refills, [facility], 175.2, cm, 07/20/21 10:29:00 EDT, Height Start Date: 01/27/22 Status: Ordered polyethylene glycol 3350 oral powder for reconstitution See Instructions, MIX 17GM WITH 8 OUNCES OF WATER OR JUICE DAILY AT 5PM FOR CONSTIPATION (POLYETHYLENE GLYCOL), # 510 Gm, 11 Refills, [facility], 30, MIX 17GM WITH 8 OUNCES OF WATER OR JUICE DAILY AT 5PM FOR CONSTIPATION (POLYETHYLENE GLYCOL), 17... Start Date: 09/22/21 Status: Ordered pravastatin 40 mg oral tablet See Instructions, TAKE 1 TABLET BY MOUTH DAILY IN THE PM FOR HYPERLIPIDEMIA, # 30 tablet, 5 Refills, [facility], 175.2, cm, 07/20/21 10:29:00 EDT, Height Start Date: 11/09/21 Status: Ordered Robafen 100 mg/5 ml oral liquid 10 mL, By Mouth, 4 times a day, PRN NEEDED FOR COUGH/NOTIFY MD IF NO RELIEF AFTER 48 HRS / DOSE =, GUAIFENESIN (TUSSIN MUCUS-CONGEST 100MG/5ML., # 240 mL, 4 Refills, Acute 11/25/22 12:02:00 EST, 11/25/21 12:02:00 EST, [facility], 175.2, cm, 09... Start Date: 11/25/21 Stop Date: 11/25/22 Status: Ordered Shingrix intramuscular injection 0.5 mL, Intramuscular, Once, # 0.5 mL, 1 Refills, Soft Stop, 06/28/18 10:24:17 EDT Start Date: 06/28/18 Status: Ordered terbinafine 1% topical cream 1 application, Topically, 2 times a day, # 30 Gm, 0 Refills, Maintenance, 04/06/22 16:14:00 EDT, Cream, [facility], Partial fill upon patient request if [...] Raynaud's phenomenon(Confirmed) Active UI (urinary incontinence)(Confirmed) Active 01047; repeat 2020; repeat 2018 3egd 2012 barretts, repeat 2014 4egd 2010 positive barretts repeat 2011 5C2 6colonoscopy 2006 repeat 2016 7repeat 2024 [id number] Social History Social History Type Response Smoking Status Never smoker entered on: 06/25/16 Sex
--- OUTSIDE RECORDS SUMMARY | 2023-06-15 11:57 | XMS_ITS | Continuity of Care Document ---
Author Name Unknown Organization [facility], [place] [place] [facility] Address [address] [place] [address]- Care Team Providers Care Lubrication Servicer Name Role Phone Brandon Freeman MD Primary Care Physician [facility] 09[facility]21 - 10/11/21 [facility] [place] Adult [address] [place] [address]- Allergies, Adverse Reactions, Alerts Substance Reaction Severity [...] GIVEN 5Admin Note: FLU CLINIC 6Admin Note: [employer] [facility] VIS [id number] given 7Admin Note: given in clinic 8Result Comment: Pt. already received on 08/07/2015 Medications bacitracin zinc 500 units/g topical ointment See Instructions, APPLY SMALL AMOUNT TOPICALLY TO SUPERFICIAL WOUNDS 4 TIMES A DAY NEEDED AN ANTIBACTERIAL / CALL MD IF USING FOR MORE THAN 7 DAYS, # 1 Gm, 11 Refills, Acute, [facility], 7, APPLY SMALL AMOUNT TOPICALLY TO [...] CONSTIPATION, # 7 supp, 11 Refills, Acute, [facility], 175.2, cm, 10/12/19 8:18:00 EST, Height [...] 30 SEC... Start Date: 10/26/18 Status: Ordered [employer] [facility] oral capsule 1 capsule, By Mouth, Daily, FOR INTESTINAL HEALTH., # 30 capsule, 11 Refills, [facility], 30, TAKE 1 CAPSULE BY MOUTH DAILY FOR INTESTINAL HEALTH, 175.2, cm, 07/20/21 10:29:00 EDT, Height Start Date: 07/23/21 Status: Ordered diazepam 10 mg oral tablet See Instructions, PRN, 1 tablet By Mouth 2 hour prior to medical appointments, # 1 tablet, Refills 5, Tot. Refills 5, Maintenance, for anxiety, 07/20/21 10:26:00 EDT, Instructions Replace Required Details, Route to Pharmacy Electronically, [facility]... Start Date: 07/20/21 Status: Ordered Disposable Enema 7 g-19 g rectal enema See Instructions, ONE ENEMA PER RECTUM DAY 5 WITHOUT BOWEL MOVEMENT / IF NO RESULTS NOTIFY MD / FORCONSTIPATION / IC FLEET ENEMA 7 GM - 19 GM, # 133 mL, 11 Refills, Soft Stop, [facility], 5, ONE ENEMA PER RECTUM DAY 5 WITHOUT BOWEL MOVEMENT / IF... Start Date: 03/11/21 Status: Ordered Ditropan XL 10 mg oral tablet, extended release 10, mg, 1, tablet, By Mouth, Daily, 0, 01/03/07 9:24:09, Print ANNE-MARIE Number, [id number], Constant Indicator Start Date: 01/03/07 Status: Ordered DOK 100 mg oral tablet See Instructions, TAKE 1 TABLET BY MOUTH TWICE DAILY (STOOL SOFTENER EQUIVALENT), # 60 tablet, 5 Refills, Maintenance, [facility], 175.2, cm, 11/28/20 7:21:00 EST, Height [...] Instructions Replace Required Details, Route toPharmacy Electronically, [facility], 175.2, cm... Start Date: 04/09/20 Status: Ordered fit to pt fit to pt, See Instructions, # 1 units, Refills 0, Tot. Refills 0, Maintenance, rigid cervical collar. Fit to pt., 06/21/18 15:59:47 EDT, Compound Start Date: 06/21/18 Status: Ordered Flomax 0.4 mg oral capsule 0.4, mg, 1, capsule, By Mouth, Daily, 0, 0, 01/03/07 9:24:42, Print ANNE-MARIE Number, [id number], Constant Indicator Start Date: 01/03/07 Status: Ordered [...] Gm, 11 Refills, Maintenance, 12/11/19 11:11:00 EST, [facility], APPLY TO EXTERNAL HEMMORRHOIDS TWICE DAILY PRN PER DR FREEMAN, 175.2, cm, 10/12/19 8:18:00 EST, Height,... Start Date: 12/11/19 Status: Ordered ibuprofen 400 mg oral tablet 400 mg, 1, tablet, By Mouth, 3 times a day, PRN, # 30 tablet, Refills 1, Tot. Refills 1, Maintenance, as needed for pain, 12/25/18 11:23:03 EST, Route to Pharmacy Electronically, [id number], [facility] Start Date: 12/25/18 Status: Ordered lactulose 10 gm/15 ml oral syrup = 20 Gm, By Mouth, Daily at bedtime, GIVE WITH., # 946 mL, 11 Refills, [facility], 31, TWO TABLESPOONFULS BY MOUTH DAILY [...] Replace Required Details, Route to Pharmacy Electronically, [facility], 175.2, cm, 07/20/21... Start Date: 08/04/21 Status: Ordered loratadine 10 mg oral tablet 10 mg, 1, tablet, By Mouth, Daily, PER DR FREEMAN, # 30 tablet, Refills 11, Tot. Refills 11, 02/19/20 9:46:00 EDT, Route to Pharmacy Electronically, [facility], 175.2, cm, 10/12/19 8:18:00 EST, Height, 73.2, kg, 03/05/18 17:34:00 EDT, Dry Weight Start Date: 02/19/20 Status: Ordered Milk of Magnesia 8% oral suspension 30 mL = 2.4 Gm, By Mouth, Daily at bedtime, # 900 mL, 5 Refills, Maintenance, 04/02/21 7:35:00 EDT,[facility], 175.2, cm, 11/28/20 7:21:00 EST, Height Start Date: 04/02/21 Stop Date: 09/29/21 Status: Ordered omeprazole 40 mg oral enteric coated capsule See Instructions, TAKE 1 CAPSULE BY MOUTH DAILY FOR GERD, # 30 capsule, 2 Refills, [facility],175.2, cm, 07/20/21 10:29:00 EDT, Height Start Date: 08/31/21 Status: Ordered polyethylene glycol 3350 oral powder for reconstitution See Instructions, MIX 17GM WITH 8 OUNCES OF WATER OR JUICE DAILY AT 5PM FOR CONSTIPATION (POLYETHYLENE GLYCOL), # 510 Gm, 11 Refills, [facility], 30, MIX 17GM WITH 8 OUNCES [...] mL, 4 Refills, Acute, 10/28/20 6:38:00 EST, [facility], 175.2, cm, 07/09/20 10:27:00 EDT, He... [...] Raynaud's phenomenon(Confirmed) Active UI (urinary incontinence)(Confirmed) Active 70132; repeat 2020; repeat 2018 3egd 2012 barretts, repeat 2014 4egd 2009 positive barretts repeat 2012 5C2 6colonoscopy 2007 nl repeat 2017 7repeat 2024 [id number] Social History Social History Type Response Smoking Status Never smoker entered on: 06/25/16 Sex
--- OUTSIDE RECORDS SUMMARY | 2023-06-15 11:57 | XMS_ITS | Continuity of Care Document ---
Author Name Unknown Organization [facility] Address [address] [place] [address]- Care Team Providers Care Surgical Coder Name Role Phone Brandon Freeman MD Primary Care Physician [facility]): 08[facility]/22 - 09/02/22 [facility] [address] [place] [address]- Allergies, Adverse Reactions, Alerts Substance Reaction Severity Status azithromycin Active macrolide antibiotics Active Dust Active ketolides Active Immunizations Given and Recorded Vaccine Date Status Refusal Reason [id number] 12y+ bivalent booster vax 07/22/22 Recorded tetanus-diphtheria [...] clinic 5Admin Note: FLU CLINIC 6Admin Note: [employer] [facility] VIS [id number] given 7Admin Note: given in clinic 8Result Comment: Pt. already received on 08/07/2015 Medications bacitracin zinc 500 units/g topical ointment See Instructions, APPLY SMALL AMOUNT TOPICALLY TO SUPERFICIAL WOUNDS 4 TIMES A DAY NEEDED AN ANTIBACTERIAL / CALL MD IF USING FOR MORE THAN 7 DAYS, # 1 Gm, 11 Refills, Acute, [facility], 7, APPLY SMALL AMOUNT TOPICALLY [...] FOR CONSTIPATION, # 7 supp, 11 Refills, [facility], 175.2, cm, 07/20/21 10:29:00 EDT, [...] 30 capsule, 11 Refills, Maintenance, 07/29/2211:36:00 EDT, [facility], 30, 1 capsule By Mouth Daily,Instr:FOR [...] 19 GM, # 133 mL, 11 Refills, [facility], 5, ONE ENEMA PERRECTUM DAY 5 WITHOUT BOWEL MOVEMENT / IF NO RESULTS... Start Date: 03/16/22 Status: Ordered Ditropan XL 10 mg oral tablet, extended release 10, mg, 1, tablet, By Mouth, Daily, 0, 01/03/07 9:24:09, Print ANNE-MARIE Number, [id number], Constant Indicator Start Date: 01/03/07 Status: Ordered DOK 100 mg oral tablet See Instructions, TAKE 1 TABLET BY MOUTH TWICE DAILY (STOOL SOFTENER EQUIVALENT), # 60 tablet, 5 Refills, Maintenance, 08/12/22 9:24:00 EDT, [facility], 175.2, cm, 07/27/22 11:37:00 EDT, [...] Instructions Replace Required Details, Route toPharmacy Electronically, [facility], 175.2, cm... Start Date: 04/09/20 Status: Ordered fit to pt fit to pt, See Instructions, # 1 units, Refills 0, Tot. Refills 0, Maintenance, rigid cervical collar. Fit to pt., 06/21/18 15:59:47 EDT, Compound Start Date: 06/21/18 Status: Ordered Flomax 0.4 mg oral capsule 0.4, mg, 1, capsule, By Mouth, Daily, 0, 0, 01/03/07 9:24:42, Print ANNE-MARIE Number, [id number], Constant Indicator Start Date: 01/03/07 Status: Ordered hydrochlorothiazide 25 mg oral tablet See Instructions, TAKE 1 TAB BY MOUTH DAILY IN AM FOR HTN/MONITOR BP/IF SYSTOLIC MORE THAN 160, DIASTOLIC MORE THAN 100, SYSTOLIC LESS THAN 90, OR DIASTOLIC LESS THAN 50 CALLMA, # 30 tablet, Refills 2, Instructions Replace [...] Gm, 11 Refills, Maintenance, 12/11/19 11:11:00 EST, [facility], APPLY TO EXTERNAL HEMMORRHOIDS TWICE DAILY PRN PER DR FREEMAN, 175.2, cm, 10/12/19 8:18:00 EST, Height,... Start Date: 12/11/19 Status: Ordered ibuprofen 400 mg oral tablet 400 mg, 1, tablet, By Mouth, 3 times a day, PRN, # 30 tablet, Refills 1, Tot. Refills 1, Maintenance, as needed for pain, 12/25/18 11:23:03 EST, Route to Pharmacy Electronically, [id number], [facility] Start Date: 12/25/18 Status: Ordered lactulose 10 gm/15 ml oral syrup = 20 Gm, By Mouth, Daily at bedtime, # 946 mL, 11 Refills, Maintenance, 09/01/22 7:18:00 EDT, [facility], 31, 20 Gm By Mouth Daily [...] FOR ALLERGIC RHINITIS, Route to Pharmacy Electronically, [facility], 175.2, cm, 07/20/21 10:29:00 EDT, Height Start Date: 11/10/21 Status: Ordered Milk of Magnesia 8% oral suspension 30 mL, By Mouth, Daily at bedtime, FOR CONSTIPATION [id number] MG., # 900 mL, 5 Refills, Maintenance, 07/01/22 13:24:00 EDT, [facility], 175.2, cm, 04/15/22 9:44:00 EDT, Height Start Date: 07/01/22 Status: Ordered omeprazole 40 mg oral enteric coated capsule See Instructions, TAKE 1 CAPSULE BY MOUTH DAILY FOR GERD IN AM, # 30 capsule, 2 Refills, Maintenance, 08/05/22 12:48:00 EDT, [facility], 175.2, cm, 07/27/22 11:37:00 EDT, Height Start Date: 08/05/22 Status: Ordered polyethylene glycol 3350 oral powder for reconstitution See Instructions, MIX 17GM WITH 8 OUNCES OF WATER OR JUICE DAILY AT 5PM FOR CONSTIPATION (POLYETHYLENE GLYCOL), # 510 Gm, 11 Refills, [facility], 30, MIX 17GM WITH 8 OUNCES OF WATER OR JUICE DAILY AT 5PM FOR CONSTIPATION (POLYETHYLENE GLYCOL), 17... Start Date: 09/22/21 Status: Ordered pravastatin 40 mg oral tablet See Instructions, TAKE 1 TABLET BY MOUTH DAILY IN THE PM FOR HYPERLIPIDEMIA, # 30 tablet, 5 Refills, [facility], 175.2, cm, 04/15/22 9:44:00 EDT, Height Start Date: 05/25/22 Status: Ordered Robafen 100 mg/5 ml oral liquid 10 mL, By Mouth, 4 times a day, PRN NEEDED FOR COUGH/NOTIFY MD IF NO RELIEF AFTER 48 HRS / DOSE =, GUAIFENESIN (TUSSIN MUCUS-CONGEST 100MG/5ML., # 240 mL, 4 Refills, Acute 11/25/22 12:02:00 EST, 11/25/21 12:02:00 EST, [facility], 175.2, cm, 09... Start Date: 11/25/21 Stop Date: 11/25/22 Status: Ordered Shingrix intramuscular injection 0.5 mL, Intramuscular, Once, # 0.5 mL, 1 Refills, Soft Stop, 06/28/18 10:24:17 EDT Start Date: 06/28/18 Status: Ordered terbinafine 1% topical cream 1 application, Topically, 2 times a day, # 30 Gm, 1 Refills, Maintenance, 05/11/22 14:45:00 EDT, Cream, [facility], Partial fill upon patient request if [...] VITAMIN SUPPLEMENT, # 30 tablet, 5 Refills, [facility], 30, TAKE 1 TABLET BY [...] Confirmed Active UI (urinary incontinence) Confirmed Active 62766; repeat 2020 12646; repeat 2017 3egd 2011 barretts, repeat 2014 4egd 2009 positive barretts repeat 2011 5C2 6colonoscopy 2006 nl repeat 2016 7repeat 2024 [id number] Social History Social History Type Response Smoking Status Never smoker entered on: 06/25/16 Sex Patient Care team information Personnel Name: Brandon Freeman MD Address: Address: [address] [place] [id number]
--- OUTSIDE RECORDS SUMMARY | 2023-06-15 11:57 | XMS_ITS | Continuity of Care Document ---
Author Name Unknown Organization [facility] Address [address] [place] [address]- Care Team Providers Care Property Maintenance Technician Name Role Phone Brandon Freeman MD Primary Care Physician [facility] 03[facility]07[facility]23 - 04/06/23 [facility] [address] [place] [address]- Allergies, Adverse Reactions, Alerts Substance Reaction Severity Status azithromycin Active macrolide antibiotics Active Dust Active ketolides Active Immunizations Given and Recorded Vaccine Date Status Refusal Reason [id number] 12y+ bivalent booster vax 07/22/22 Recorded tetanus-diphtheria [...] clinic 5Admin Note: FLU CLINIC 6Admin Note: [employer] [facility] VIS [id number] given 7Admin Note: given in clinic 8Result Comment: Pt. already received on 08/07/2015 Medications acetaminophen 325 mg oral tablet 2, tablet, By Mouth, Every 6 hours, PRN, [id number]., # 60 tablet, Refills 0, Maintenance, NEEDED FOR FEVER>100.5 OR PAIN SHOWN BY FACIAL GRIMACE NOTIFY MD IF USED >, 11/12/22 9:30:00 EST, Route to Pharmacy Electronically, [facility], 175.2, c... Start Date: 11/12/22 Stop Date: 11/15/22 Status: Ordered bacitracin zinc 500 units/g topical ointment See Instructions, APPLY SMALL AMOUNT TOPICALLY TO SUPERFICIAL WOUNDS 4 TIMES A DAY NEEDED AN ANTIBACTERIAL / CALL MD IF USING FOR MORE THAN 7 DAYS, # 28 Gm, 11 Refills, Maintenance, 11/09/22 15:57:00 EST, [facility], 7, APPLY SMALL AMOUNT T... Start [...] supp, 11 Refills, Maintenance, 12/16/22 13:35:00 EST, [facility], 175.2, cm, 07/27/22 11:37:00 EDT, Height [...] 30 SEC... Start Date: 10/26/18 Status: Ordered [facility] oral capsule 1 capsule, By Mouth, Daily, FOR INTESTINAL HEALTH., # 30 capsule, 11 Refills, Maintenance, 07/29/2211:36:00 EDT, [facility], 30, 1 capsule By Mouth Daily,Instr:FOR [...] Stop 04/06/24 13:54:00 EDT, 04/05/23 13:54:00 EDT, [facility], 5, ONE... Start Date: 04/05/23 Stop Date: 04/06/24 Status: Ordered Ditropan XL 10 mg oral tablet, extended release 10, mg, 1, tablet, By Mouth, Daily, 0, 01/03/07 9:24:09, Print ANNE-MARIE Number, [id number], Constant Indicator Start Date: 01/03/07 Status: Ordered DOK 100 mg oral tablet See Instructions, TAKE 1 TABLET BY MOUTH TWICE DAILY (AM AND PM) (STOOL SOFTENER EQUIVALENT), # 60 tablet, 5 Refills, Maintenance, 02/02/23 15:38:00 EDT, [facility], 175.2, cm, 02/01/23 15:11:00EDT, Height Start [...] Instructions Replace Required Details, Route toPharmacy Electronically, [facility], 175.2, cm... Start Date: 04/09/20 Status: Ordered fit to pt fit to pt, See Instructions, # 1 units, Refills 0, Tot. Refills 0, Maintenance, rigid cervical collar. Fit to pt., 06/21/18 15:59:47 EDT, Compound Start Date: 06/21/18 Status: Ordered Flomax 0.4 mg oral capsule 0.4, mg, 1, capsule, By Mouth, Daily, 0, 0, 01/03/07 9:24:42, Print ANNE-MARIE Number, [id number], Constant Indicator Start Date: 01/03/07 Status: Ordered hydrochlorothiazide 25 mg oral tablet 1, tablet, By Mouth, Daily in AM, FOR HTN/MONITOR BP/IF SYSTOLIC MORE THAN 160, DIASTOLIC MORE [id number], SYSTOLIC LESS THAN 90, OR DIASTOLIC LESS THAN 50 CALLMD., # 90 tablet, Refills 1, Tot. Refills1, Maintenance, 03/15/23 14:21:00 EDT, [facility] Start Date: 03/15/23 Status: Ordered HYDROCORTISONE 1% [...] Gm, 11 Refills, Maintenance, 12/11/19 11:11:00 EST, [facility], APPLY TO EXTERNAL HEMMORRHOIDS TWICE DAILY PRN PER DR FREEMAN, 175.2, cm, 10/12/19 8:18:00 EST, Height,... Start Date: 12/11/19 Status: Ordered ibuprofen 400 mg oral tablet 400 mg, 1, tablet, By Mouth, 3 times a day, PRN, # 30 tablet, Refills 1, Tot. Refills 1, Maintenance, as needed for pain, 12/25/18 11:23:03 EST, Route to Pharmacy Electronically, [id number], [facility] Start Date: 12/25/18 Status: Ordered lactulose 10 gm/15 ml oral syrup = 20 Gm, By Mouth, Daily at bedtime, # 946 mL, 11 Refills, Maintenance, 09/01/22 7:18:00 EDT, [facility], 31, 20 Gm By Mouth Daily [...] 03/08/23 11:54:00 EDT, Route to Pharmacy Electronically, [facility], Partial fill u... Start Date: 03/08/23 Stop Date: 03/08/24 Status: Ordered loratadine 10 mg oral tablet 1, tablet, By Mouth, Daily, PRN, # 30 tablet, Refills 11, NEEDED FOR ALLERGY SYMPTOMS WATERY, ITCHY RED EYES, SNEEZING FOR ALLERGIC RHINITIS, Route to Pharmacy Electronically, [facility], 175.2, cm, 07/20/21 10:29:00 EDT, Height Start Date: 11/10/21 Status: Ordered Milk of Magnesia 8% oral suspension 30 mL, By Mouth, Daily at bedtime, FOR CONSTIPATION [id number]=[id number] MG., # 900 mL, 5 Refills, Maintenance, 04/04/23 21:00:00 EDT, [facility], 175.2, cm, 02/01/23 15:11:00 EDT, Height Start Date: 04/04/23 Status: Ordered omeprazole 40 mg oral enteric coated capsule 1 capsule, By Mouth, Daily in AM, # 30 capsule, 5 Refills, Maintenance, 02/01/23 7:37:00 EDT, [facility], 175.2, cm, 07/27/22 11:37:00 EDT, Height Start Date: 02/01/23 Status: Ordered polyethylene glycol 3350 oral powder for reconstitution See Instructions, MIX 17GM WITH 8 OUNCES OF WATER OR JUICE DAILY AT 5PM FOR CONSTIPATION (POLYETHYLENE GLYCOL), # 510 Gm, 11 Refills, Physician Stop 10/07/23 11:17:00 EST, 10/07/22 11:17:00 EST, [facility], 30, MIX 17GM WITH 8 OUNCES OF WATER OR... Start Date: 10/07/22 Stop Date: 10/07/23 Status: Ordered pravastatin 40 mg oral tablet See Instructions, TAKE 1 TABLET BY MOUTH DAILY IN THE PM FOR HYPERLIPIDEMIA, # 30 tablet, 5 Refills, Maintenance, 11/18/22 15:41:00 EST, [facility], 175.2, cm, 07/27/22 11:37:00 EDT, Height [...] 1 Refills, Maintenance, 05/11/22 14:45:00 EDT, Cream, [facility], Partial fill upon patient request if [...] tablet, 5 Refills, Maintenance, 04/04/23 21:00:00 EDT, [facility], 30, TAKE 1 TABLET BY MOUTH [...] Confirmed Active UI (urinary incontinence) Confirmed Active 90901; repeat 2020 72833; repeat 2017 3egd 2012 barretts, repeat 2014 4egd 2010 positive barretts repeat 2012 5C2 6colonoscopy 2007 nl repeat 2016 7repeat 2024 [id number] Social History Social History Type Response Smoking Status Never smoker entered on: 06/25/16 Sex Patient Care team information Care Team Personnel Name: Hannah Roque RN Position: [facility] RN Member Role: Primary Care Nurse Name: Reggie Godinez RN Position: [facility] RN Member Role: Primary Care Nurse Name: Christiane Cedillo RN Position: [facility] RN Member Role: Primary Care Nurse Name: Brandon Freeman MD Position: [facility] Physician - Primary Care Member Role: PCP Address: Address: [address] [place] [phone]- Name: Janeen Hoskins RN Position: [facility] RN Member Role: Primary Care Nurse Name: Cydney Mckinney RN Position: [facility] RN Member Role: Primary Care Nurse Name: Frantz Mi III, RN Position: [facility] RN Member Role: Primary Care Nurse Name: Cate Martel NP Position: Reference Physician Member Role: Primary Care Nurse Address: Address: [address] [place] [address]- Name: Fay Morton RN Position: [facility] RN Member Role: Primary Care Nurse Name: Massiel Lu RN Position: [facility] RN Member Role: Primary Care Nurse Name: Lurdes Mujica RN Position: [facility] RN Member Role: Primary Care Nurse Name: Brandie Horvath RN Position: [facility] Hospital Forestry Biology Specialist Member Role: Primary Care Nurse Name: Claribel Howe RN Position: [facility] RN Member Role: Primary Care Nurse Care Team Related Persons Name: JOHAN PERKINS Name: DAWOOD DE LOS SANTOS Address: home [address] [place] [id number] Name: JENNIFER JUAREZ Address: [address] [place] [address]
--- OUTSIDE RECORDS SUMMARY | 2023-06-15 11:57 | XMS_ITS | Continuity of Care Document ---
Author Name Unknown Organization [facility] Chace lt Address [address] [place] [address]- Care Team Providers Care Material Processor Name Role Phone Brandon Freeman MD Primary Care Physician [phone] Encounter [facility] Date(s): 08/25/21 - 09/24/21 [facility] Adult [address] [place] [address]- Allergies, Adverse Reactions, Alerts Substance Reaction Severity [...] GIVEN 5Admin Note: FLU CLINIC 6Admin Note: [employer]Tube [facility] VIS [phone] given 7Admin Note: given in clinic 8Result Comment: Pt. already received on 08/07/2015 Medications bacitracin zinc 500 units/g topical ointment See Instructions, APPLY SMALL AMOUNT TOPICALLY TO SUPERFICIAL WOUNDS 4 TIMES A DAY NEEDED AN ANTIBACTERIAL / CALL MD IF USING FOR MORE THAN 7 DAYS, # 1 Gm, 11 Refills, Acute, [facility], 7, APPLY SMALL AMOUNT TOPICALLY TO [...] CONSTIPATION, # 7 supp, 11 Refills, Acute, [facility], 175.2, cm, 10/12/19 8:18:00 EST, Height [...] 30 SEC... Start Date: 10/26/18 Status: Ordered [facility] oral capsule 1 capsule, By Mouth, Daily, FOR INTESTINAL HEALTH., # 30 capsule, 11 Refills, [facility], 30, TAKE 1 CAPSULE BY MOUTH DAILY FOR INTESTINAL HEALTH, 175.2, cm, 07/20/21 10:29:00 EDT, Height Start Date: 07/23/21 Status: Ordered diazepam 10 mg oral tablet See Instructions, PRN, 1 tablet By Mouth 2 hour prior to medical appointments, # 1 tablet, Refills 5, Tot. Refills 5, Maintenance, for anxiety, 07/20/21 10:26:00 EDT, Instructions Replace Required Details, Route to Pharmacy Electronically, [facility] Start Date: 07/20/21 Status: Ordered Disposable Enema 7 g-19 g rectal enema See Instructions, ONE ENEMA PER RECTUM DAY 5 WITHOUT BOWEL MOVEMENT / IF NO RESULTS NOTIFY MD / FORCONSTIPATION / IC FLEET ENEMA 7 GM - 19 GM, # 133 mL, 11 Refills, Soft Stop, [facility], 5, ONE ENEMA PER RECTUM DAY 5 WITHOUT BOWEL MOVEMENT / IF... Start Date: 03/11/21 Status: Ordered Ditropan XL 10 mg oral tablet, extended release 10, mg, 1, tablet, By Mouth, Daily, 0, 01/03/07 9:24:09, Print ANNE-MARIE Number, [id number], Constant Indicator Start Date: 01/03/07 Status: Ordered DOK 100 mg oral tablet See Instructions, TAKE 1 TABLET BY MOUTH TWICE DAILY (STOOL SOFTENER EQUIVALENT), # 60 tablet, 5 Refills, Maintenance, [facility], 175.2, cm, 11/28/20 7:21:00 EST, Height [...] Instructions Replace Required Details, Route toPharmacy Electronically, [facility], 175.2, cm... Start Date: 04/09/20 Status: Ordered fit to pt fit to pt, See Instructions, # 1 units, Refills 0, Tot. Refills 0, Maintenance, rigid cervical collar. Fit to pt., 06/21/18 15:59:47 EDT, Compound Start Date: 06/21/18 Status: Ordered Flomax 0.4 mg oral capsule 0.4, mg, 1, capsule, By Mouth, Daily, 0, 0, 01/03/07 9:24:42, Print ANNE-MARIE Number, [id number], Constant Indicator Start Date: 01/03/07 Status: Ordered [...] Gm, 11 Refills, Maintenance, 12/11/19 11:11:00 EST, [facility], APPLY TO EXTERNAL HEMMORRHOIDS TWICE DAILY PRN PER DR FREEMAN, 175.2, cm, 10/12/19 8:18:00 EST, Height,... Start Date: 12/11/19 Status: Ordered ibuprofen 400 mg oral tablet 400 mg, 1, tablet, By Mouth, 3 times a day, PRN, # 30 tablet, Refills 1, Tot. Refills 1, Maintenance, as needed for pain, 12/25/18 11:23:03 EST, Route to Pharmacy Electronically, [id number], [facility] Start Date: 12/25/18 Status: Ordered lactulose 10 gm/15 ml oral syrup = 20 Gm, By Mouth, Daily at bedtime, GIVE WITH., # 946 mL, 11 Refills, [facility], 31, TWO TABLESPOONFULS BY MOUTH DAILY [...] Replace Required Details, Route to Pharmacy Electronically, [facility], 175.2, cm, 07/20/21... Start Date: 08/04/21 Status: Ordered loratadine 10 mg oral tablet 10 mg, 1, tablet, By Mouth, Daily, PER DR FREEMAN, # 30 tablet, Refills 11, Tot. Refills 11, 02/19/20 9:46:00 EDT, Route to Pharmacy Electronically, [facility], 175.2, cm, 10/12/19 8:18:00 EST, Height, 73.2, kg, 03/05/18 17:34:00 EDT, Dry Weight Start Date: 02/19/20 Status: Ordered Milk of Magnesia 8% oral suspension 30 mL = 2.4 Gm, By Mouth, Daily at bedtime, # 900 mL, 5 Refills, Maintenance, 04/02/21 7:35:00 EDT,[facility], 175.2, cm, 11/28/20 7:21:00 EST, Height Start Date: 04/02/21 Stop Date: 09/29/21 Status: Ordered omeprazole 40 mg oral enteric coated capsule See Instructions, TAKE 1 CAPSULE BY MOUTH DAILY FOR GERD, # 30 capsule, 2 Refills, [facility],175.2, cm, 07/20/21 10:29:00 EDT, Height Start Date: 08/31/21 Status: Ordered polyethylene glycol 3350 oral powder for reconstitution See Instructions, MIX 17GM WITH 8 OUNCES OF WATER OR JUICE DAILY AT 5PM FOR CONSTIPATION (POLYETHYLENE GLYCOL), # 510 Gm, 11 Refills, [facility], 30, MIX 17GM WITH 8 OUNCES [...] mL, 4 Refills, Acute, 10/28/20 6:38:00 EST, [facility], 175.2, cm, 07/09/20 10:27:00 EDT, He... [...] Raynaud's phenomenon(Confirmed) Active UI (urinary incontinence)(Confirmed) Active 02175; repeat 2020; repeat 2018 3egd 2012 barretts, repeat 2014 4egd 2009 positive barretts repeat 2012 5C2 6colonoscopy 2007 nl repeat 2017 7repeat 2024 [id number] Social History Social History Type Response Smoking Status Never smoker entered on: 06/25/16 Sex
--- OUTSIDE RECORDS SUMMARY | 2023-06-15 11:57 | XMS_ITS | Continuity of Care Document ---
Author Name Unknown Organization [facility] Nubia Ramos [facility] Address [address] [place] [address]- Care Team Providers Care Administrative Intern Name Role Phone Brandon Freeman MD Primary Care Physician Encounter [facility] Date(s): 11/09/22 - 12/09/22 [facility] Nubia Ramos [facility] [address] [place] [address]- Allergies, Adverse Reactions, Alerts Substance Reaction Severity Status azithromycin Active macrolide antibiotics Active Dust Active ketolides Active Immunizations Given and Recorded Vaccine Date Status Refusal Reason [id number] 12y+ bivalent booster vax 07/22/22 Recorded tetanus-diphtheria [...] clinic 5Admin Note: FLU CLINIC 6Admin Note: [facility] VIS [phone] given 7Admin Note: given in clinic 8Result Comment: Pt. already received on 08/07/2015 Medications acetaminophen 325 mg oral tablet 2, tablet, By Mouth, Every 6 hours, PRN, SGTO=025HP., # 60 tablet, Refills 0, Maintenance, NEEDED FOR FEVER>100.5 OR PAIN SHOWN BY FACIAL GRIMACE NOTIFY MD IF USED >, 11/12/22 9:30:00 EST, Route to Pharmacy Electronically, [facility], 175.2, c... Start Date: 11/12/22 Stop Date: 11/15/22 Status: Ordered bacitracin zinc 500 units/g topical ointment See Instructions, APPLY SMALL AMOUNT TOPICALLY TO SUPERFICIAL WOUNDS 4 TIMES A DAY NEEDED AN ANTIBACTERIAL / CALL MD IF USING FOR MORE THAN 7 DAYS, # 28 Gm, 11 Refills, Maintenance, 11/09/22 15:57:00 EST, [facility], 7, APPLY SMALL AMOUNT T... Start [...] FOR CONSTIPATION, # 7 supp, 11 Refills, [facility], 175.2, cm, 07/20/21 10:29:00 EDT, Height [...] 30 capsule, 11 Refills, Maintenance, 07/29/2211:36:00 EDT, [facility], 30, 1 capsule By Mouth Daily,Instr:FOR [...] 19 GM, # 133 mL, 11 Refills, [facility], 5, ONE ENEMA PERRECTUM DAY 5 WITHOUT BOWEL MOVEMENT / IF NO RESULTS... Start Date: 03/16/22 Status: Ordered Ditropan XL 10 mg oral tablet, extended release 10, mg, 1, tablet, By Mouth, Daily, 0, 01/03/07 9:24:09, Print ANNE-MARIE Number, [id number], Constant Indicator Start Date: 01/03/07 Status: Ordered DOK 100 mg oral tablet See Instructions, TAKE 1 TABLET BY MOUTH TWICE DAILY (STOOL SOFTENER EQUIVALENT), # 60 tablet, 5 Refills, Maintenance, 08/12/22 9:24:00 EDT, [facility], 175.2, cm, 07/27/22 11:37:00 EDT, Height [...] Instructions Replace Required Details, Route toPharmacy Electronically, [facility], 175.2, cm... Start Date: 04/09/20 Status: Ordered fit to pt fit to pt, See Instructions, # 1 units, Refills 0, Tot. Refills 0, Maintenance, rigid cervical collar. Fit to pt., 06/21/18 15:59:47 EDT, Compound Start Date: 06/21/18 Status: Ordered Flomax 0.4 mg oral capsule 0.4, mg, 1, capsule, By Mouth, Daily, 0, 0, 01/03/07 9:24:42, Print ANNE-MARIE Number, [id number], Constant Indicator Start Date: 01/03/07 Status: Ordered [...] Gm, 11 Refills, Maintenance, 12/11/19 11:11:00 EST, [facility], APPLY TO EXTERNAL HEMMORRHOIDS TWICE DAILY PRN PER DR FREEMAN, 175.2, cm, 10/12/19 8:18:00 EST, Height,... Start Date: 12/11/19 Status: Ordered ibuprofen 400 mg oral tablet 400 mg, 1, tablet, By Mouth, 3 times a day, PRN, # 30 tablet, Refills 1, Tot. Refills 1, Maintenance, as needed for pain, 12/25/18 11:23:03 EST, Route to Pharmacy Electronically, [id number], [facility] Start Date: 12/25/18 Status: Ordered lactulose 10 gm/15 ml oral syrup = 20 Gm, By Mouth, Daily at bedtime, # 946 mL, 11 Refills, Maintenance, 09/01/22 7:18:00 EDT, [facility], 31, 20 Gm By Mouth Daily [...] FOR ALLERGIC RHINITIS, Route to Pharmacy Electronically, [facility], 175.2, cm, 07/20/21 10:29:00 EDT, Height Start Date: 11/10/21 Status: Ordered Milk of Magnesia 8% oral suspension 30 mL, By Mouth, Daily at bedtime, FOR CONSTIPATION XHZE=5717 MG., # 900 mL, 5 Refills, Maintenance, 07/01/22 13:24:00 EDT, [facility], 175.2, cm, 04/15/22 9:44:00 EDT, Height Start Date: 07/01/22 Status: Ordered omeprazole 40 mg oral enteric coated capsule See Instructions, TAKE 1 CAPSULE BY MOUTH DAILY FOR GERD IN AM, # 30 capsule, 2 Refills, Maintenance, 11/04/22 10:43:00 EST, [facility], 175.2, cm, 07/27/22 11:37:00 EDT, Height Start Date: 11/04/22 Status: Ordered polyethylene glycol 3350 oral powder for reconstitution See Instructions, MIX 17GM WITH 8 OUNCES OF WATER OR JUICE DAILY AT 5PM FOR CONSTIPATION (POLYETHYLENE GLYCOL), # 510 Gm, 11 Refills, Physician Stop 10/07/23 11:17:00 EST, 10/07/22 11:17:00 EST, [facility], 30, MIX 17GM WITH 8 OUNCES OF WATER OR... Start Date: 10/07/22 Stop Date: 10/07/23 Status: Ordered pravastatin 40 mg oral tablet See Instructions, TAKE 1 TABLET BY MOUTH DAILY IN THE PM FOR HYPERLIPIDEMIA, # 30 tablet, 5 Refills, Maintenance, 11/18/22 15:41:00 EST, [facility], 175.2, cm, 07/27/22 11:37:00 EDT, Height [...] 30 tablet, 5 Refills, 10/05/22 11:07:00 EST, [facility], 30, TAKE 1 TABLET BY MOUTH [...] Confirmed Active UI (urinary incontinence) Confirmed Active 93844; repeat 202015; repeat 2018 3egd 2012 barretts, repeat 2014 4egd 2009 positive barretts repeat 2012 5C2 6colonoscopy 2007 nl repeat 2016 7repeat 2024 80601 Social History Social History Type Response Smoking Status Never smoker entered on: 06/25/16 Sex Patient Care team information Care Team Personnel Name: Hannah Roque RN Position: [facility] RN Member Role: Primary Care Nurse Name: Reggie Godinez RN Position: S RN Member Role: Primary Care Nurse Name: Christiane Cedillo RN Position: S RN Member Role: Primary Care Nurse Name: Brandon Freeman MD Position: [facility] Primary Care Physician Member Role: PCP Address: Address: [address] [place] [address]- [place] Name: Janeen Hoskins RN Position: [facility] RN Member Role: Primary Care Nurse Name: Cydney Mckinney RN Position: [facility] RN Member Role: Primary Care Nurse Name: Frantz Mi III, RN Position: [facility] RN Member Role: Primary Care Nurse Name: Tahmina WOVEN WOOD SHADE ASSEMBLER, Cate Melgar Position: Reference Physician Member Role: Primary Care Nurse Address: Address: [address] [place] [phone]- [place] Name: Fay Morton RN Position: [facility] RN Member Role: Primary Care Nurse Name: Massiel Lu RN Position: [facility] RN Member Role: Primary Care Nurse Name: Lurdes Mujica RN Position: [facility] RN Member Role: Primary Care Nurse Name: Brandie Horvath RN Position: [facility] Machine Riveter Member Role: Primary Care Nurse Name: Claribel Howe RN Position: [facility] RN Member Role: Primary Care Nurse Care Team Related Persons Name: JOHAN PERKINS Name: DAWOOD DE LOS SANTOS Address: home [address] [place] [id number] Name: JENNIFER JUAREZ Address: home [address] [place] [address]
== END 2023-06-15 12:22 | disposition home or self-care (01) ==
LOC: HO.HUSH 11:50
PROVIDERS: PCP Internal Medicine; Visit Provider Nurse Practitioner Family
DX: N39.0 Urinary tract infection, site not specified (principal); R97.20 Elevated prostate specific antigen [PSA]; N40.1 Benign prostatic hyperplasia with lower urinary tract symptoms
CPT/HCPCS: 99213

== ENCOUNTER → 2023-06-15 11:50 | Outpatient (BNVA) | payer MEDICARE, MEDICAID, SELFPAY | PROVIDERS: PCP Internal Medicine; Visit Provider Nurse Practitioner Family | DX: N39.0 Urinary tract infection, site not specified (principal); R97.20 Elevated prostate specific antigen [PSA]; R35.1 Nocturia; N40.1 Benign prostatic hyperplasia with lower urinary tract symptoms; N13.8 Other obstructive and reflux uropathy | CPT/HCPCS: 51798; 81003; 99212 ==

== ENCOUNTER 2023-08-05 10:03 | Outpatient (REF) | payer MEDICARE, MEDICAID, SELFPAY | END 2023-08-05 10:04 | disposition home or self-care (01) | LOC: HO.US 10:03 | PROVIDERS: PCP Internal Medicine; Visit Provider Nurse Practitioner Family | DX: N39.0 Urinary tract infection, site not specified (principal) | CPT/HCPCS: 76770 ==

== ENCOUNTER 2023-08-17 11:36 | Outpatient (AMB) | payer MEDICARE, MEDICAID, SELFPAY ==
--- NOTE | 2023-08-17 11:45 | A.OFFVIS_ITS ---
Intake Intake Visit Reasons: 2m/US/labs Intake Note: Patient is present for follow up ultrasound/ lab (psa 3.6) Urology Medications: Finasteride, Tamsulosin Blood Thinner: none PVR: patient declined Nuclear Logging Engineer Required: No Accompanied by: caregiver Allergies azithromycin [AZITHROMYCIN] Allergy (Unknown, Verified 06/15/23 13:22) UNKOWN Macrolide Antibiotics [MACROLIDE ANTIBIOTICS] Allergy (Unknown, Verified 06/15/23 13:22) unknown Macrolides and ketolides Allergy (Unknown, Uncoded 06/15/23 13:22) Unknown Medication List - Last Reconciled 08/17/23 by DELON Ramos- albuterol sulfate 90 mcg/actuation 2 puffs inhalation Q4-6H PRN 5 days amlodipine 5 mg See Protocol PO DAILY 30 days bacitracin zinc 1 appl topical QID dexamethasone 6 mg PO DAILY docusate sodium 200 mg PO DAILY finasteride 5 mg PO DAILY 90 days hydrochlorothiazide 25 mg PO DAILY@0800 Lactobacillus rhamnosus GG (Culturelle) 1 cap PO DAILY lactulose 30 mL PO BEDTIME lisinopril 20 mg PO DAILY loperamide 2 mg PO QID PRN loratadine 10 mg PO DAILY PRN lorazepam 1 tab PO DAILY PRN magnesium hydroxide (Milk of Magnesia) 30 mL PO BEDTIME multivitamin with folic acid 400 mcg (Thera) 1 tab PO BEDTIME omeprazole 40 mg PO DAILY polyethylene glycol 3350 (Miralax) 17 grams PO DAILY@1700 pravastatin 40 mg PO BEDTIME tamsulosin 0.4 mg PO BEDTIME 90 days HPI HPI Comments History of Present Illness Details Wilfredo is a very pleasant 72 year old male patient of Dr. Tovar was accompanied by [facility] workers from the [facility]. He has a past medical history of Bustamante syndrome, BPH, GERD, hard of hearing, hypertension, and nonverbal learning disorder. He presents to the office today for a follow-up of his recent urinary tract infection. Of note, patient was seen approximately 2 months ago at which time his PSA was noted to be elevated at 5.0 and recommendations were made for a retroperitoneal ultrasound and redraw of the PSA. These results were reviewed with the patient and his case workers today. Right kidney with no hydronephrosis or renal calculi. Multiple renal cysts largest 5.7 x 6.8 x 5.5 cm lower pole, 4.0 x 3.0 x 5.5 cm lower pole, 1.3 x 1.2 x 1.6 cm midpole, 2.5 x 2.3 x 2.1 cm upper pole, 0.9 x 1.1 x 0.9 cm upper pole, and 0.7 x 0.7 x 0.9 cm upper pole with benign features. There is no indication for followup imaging per radiology report. Left kidney with no hydronephrosis or renal calculi. 2.2 x 1.7 x 2.3 cm exophytic lower pole cyst with benign features. There is no indication for followup imaging recommended per radiology report. The bladder is partially distended limiting evaluation. Possible diverticulum in the lower aspect of the bladder is difficult to confirm. Prostate gland is lobulated with a volume of 16 mL. Pre void bladder volume is approximately 130 mL. Postvoid bladder volume is approximately 25 mL. Recent PSA 08/22--3.6. jail staff members report patient to be doing well. They deny any UTI like symptoms and or patient had any UTI since his last office visit here approximately 2 months ago. They report to be performing bladder training/scheduled toileting/and frequent reminders and feels this is helping. They report patient to be compliant with 5 mg of finasteride and 0.4 mg of Flomax daily. Unable to obtain urine for urinalysis and or PVR at today's office visit as patient does not wish to do so at this time. PREVIOUS OFFICE NOTE: PSA slight rise Urinary control maintained on combination finasteride, Flomax and oxybutynin Does need prompted voiding No nocturia Continue surveillance Family understands high likelihood that he has prostate cancer given advancing PSA with finasteride Lower urinary tract symptoms Baseline BPH and urge incontinence Current medication Flomax and Ditropan, finasteride Has been stable for many years PSA has been variable ranging in the 5-6 range Prior discussion with sister who is guardian regarding biopsy. She does not w ant to proceed PSA 11/19 5.2, 04/20 6.5, 08/20 2.7, 02/19 2.7, 02/20 5.0, 08/22--3.6 Therapeutic plan - continue medication - continue PSA surveillance [facility] Medical History HTN (hypertension) BPH (benign prostatic hyperplasia) Barretts syndrome GERD (gastroesophageal reflux disease) [place] (hard of hearing) Non-verbal learning disorder Social History Household Members: Unknown / Unable to assess Housing: Assisted Living Facility Unable to assess alcohol history related to: Unable to respond and Unknown Patient Tobacco Use Status: Tobacco use Unknown service: No Current occupational status: disabled Review of Systems Const Reports as per HPI Eyes Reports no additional complaints ENT Reports no additional complaints Card Reports as per HPI Resp Reports no additional complaints GI Reports as per HPI Reports as per HPI Musc Reports as per HPI Neuro Reports as per HPI Psych Reports no additional complaints Endo Reports no additional complaints Physical Exam Const General: cooperative, comfortable, no acute distress, well developed, alert and awake Orientation/consciousness: oriented to person Limitations: no limitations HEENT Head: Yes normal to inspection Eyes General: appearance normal, both eyes and all related structures Neck Neck: Yes normal visual inspection and Yes trachea midline Resp Effort & Inspection: normal respiratory effort Cardio Rate: regular rate GI Inspection: Yes normal to inspection General: Yes no CVA tenderness Back/Spine/Pelvis Back: no CVA tenderness Neuro General: oriented to person Extrem General: Yes normal to inspection Psych Speech and movement: Other speech and movement exam findings present (Psych) (non verbal ) Attitude: cooperative Insight: Limited insight present (Psych) Judgement: Limited judgement present (Psych) Results Reviewed Results Reviewed: Date of Service: 08/05/23 EXAMINATION: US RETROPERITONEAL COMPLETE (RENAL) FINDINGS: RIGHT KIDNEY: 10.2 x 5.7 x 4.5 cm (SAG x AP x TRV). No hydronephrosis. No renal calculi. Renal cortical thickness is normal. Limited visualization. Multiple renal cysts, largest 5.7 x 6.8 x 5.5 cm lower pole, 4.0 x 3.0 x 5.5 cm lower pole, 1.3 x 1.2 x 1.6 cm midpole, 2.5 x 2.3 x 2.1 cm upper pole, 0.9 x 1.1 x 0.9 cm upper pole, and 0.7 x 0.7 x 0.9 cm upper pole with benign features. There is no indication for followup imaging. LEFT KIDNEY: 10.8 x 5.8 x 4.4 cm (SAG x AP x TRV). No hydronephrosis. No renal calculi. Renal cortical thickness is normal. Limited visualization. 2.2 x 1.7 x 2.3 cm exophytic lower pole cyst with benign features. There is no indication for followup imaging. BLADDER: Partially distended, limiting evaluation. Possible diverticulum in the lower aspect of the bladder is difficult to confirm. Prostate gland is lobulated with volume of 16.1 mL. Bilateral ureteral jets are demonstrated. Prevoid bladder volume is 128.8 mL. Postvoid bladder volume is 23.0 mL. IMPRESSION: 1. No hydronephrosis. No renal calculi. 2. Possible bladder diverticulum. Urology consultation and possible direct visualization with cystoscopy or CT scan of the abdomen and pelvis could be considered. 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 Recent PSA results reviewed with the patient and his case workers today. Continue finasteride and Flomax as prescribed. Recent retroperitoneal ultrasound results reviewed with the patient and case workers today; as noted above. Continue with prompt voiding Discussed, educated, encouraged on the importance of drinking plenty of water daily. Follow-up in 6 months with PVR; or sooner with any issues, concerns, and or questions. Patient Instructions: The patient had an opportunity to ask questions regarding the treatment plan. All questions were answered. Physical exam, labs, and imaging were discussed and reviewed in detail. As well as risks, benefits, and discussion of treatment choices. No major barriers to understanding were identified. The patient expressed understanding and agreement with the above treatment plan. The patient was made aware they should contact our office by phone for worsening of their current condition, the appearance of new symptoms, or with any questions or concerns. Compliance is encouraged with any medications and follow up testing that is ordered. It is a privilege to be allowed the opportunity to participate in? your urological care.? Again, if you have any questions or concerns If you have any questions or concerns please do not hesitate to contact me. The office is [phone]. This note is constructed using voice recognition software. While every effort has been made to ensure accuracy construction project manager errors may have been included. Yours sincerely, DELON Ramos-OPAL Coding Level of Care Code Est Pt Level 3 (05228) Diagnoses Elevated PSA R97.20 Bladder diverticulum N32.3 Renal cyst N28.1
== END 2023-08-17 12:25 | disposition home or self-care (01) ==
PROVIDERS: PCP Internal Medicine; Visit Provider Nurse Practitioner Family
DX: R97.20 Elevated prostate specific antigen [PSA] (principal); N32.3 Diverticulum of bladder; N28.1 Cyst of kidney, acquired
CPT/HCPCS: 99213

== ENCOUNTER → 2023-08-17 11:36 | Outpatient (BNVA) | payer MEDICARE, MEDICAID, SELFPAY | PROVIDERS: PCP Internal Medicine; Visit Provider Nurse Practitioner Family | DX: R97.20 Elevated prostate specific antigen [PSA] (principal); N32.3 Diverticulum of bladder; N28.1 Cyst of kidney, acquired | CPT/HCPCS: 99212 ==

== ENCOUNTER 2023-08-31 13:57 | Outpatient (AMB) | payer MEDICARE, MEDICAID, SELFPAY ==
--- NOTE | 2023-08-31 13:57 | MHC.OFFVIS ---
Intake Intake Visit Reasons: 6m/PSA(set) Intake Note: Patient is Present for Follow Up Urology Medication: Finasteride, Tamsulosin Antibiotic Allergies: Macrolide Antibiotics, Azithromycin Blood Thinners: None [facility] Patient has been having recent urine that has a foul smell and very dark. Allergies azithromycin [AZITHROMYCIN] Allergy (Unknown, Verified 08/31/23 14:03) UNKOWN Macrolide Antibiotics [MACROLIDE ANTIBIOTICS] Allergy (Unknown, Verified 08/31/23 14:03) unknown Macrolides and ketolides Allergy (Unknown, Uncoded 08/31/23 14:03) Unknown HPI HPI Comments History of Present Illness Details Wilfredo is a pleasant male. He is a patient of Dr. Tovar. He seen for the following urologic conditions - Lower urinary tract symptoms- variable PSA PSA slight fall Urinary control maintained on combination finasteride, Flomax and oxybutynin Does need prompted voiding - this is helping empty bladder Family understands high likelihood that he has prostate cancer given advancing PSA with finasteride assisted resident Lower urinary tract symptoms Baseline BPH and urge incontinence Current medication Flomax and Ditropan, finasteride Has been stable for many years PSA has been variable ranging in the 5-6 range Prior discussion with sister who is guardian regarding biopsy. She does not want to proceed PSA 11/19 5.2, 04/20 6.5, 08/20 2.7, 02/19 2.7, 02/20 5.0, 08/22--3.6 Imaging - 08/22 renal bladder ultrasound with multiple renal cysts bilateral, no evidence of hydronephrosis, recent Will bladder emptying, possible diverticulum Therapeutic plan - continue medication - continue PSA surveillance PFSH Medical History HTN (hypertension) BPH (benign prostatic hyperplasia) Barretts syndrome GERD (gastroesophageal reflux disease) [place] (hard of hearing) Non-verbal learning disorder Social History Household Members: Unknown / Unable to assess Housing: Assisted Living Facility Unable to assess alcohol history related to: Unable to respond and Unknown Patient Tobacco Use Status: Tobacco use Unknown service: No Current occupational status: disabled Results AMB Urinalysis, Automated UA Leukoctes 0 Martha/uL Last Edit by Xiomara Anderson A on 08/31/23 14:14 UA Nitrite Negative Last Edit by Xiomara Anderson, A on 08/31/23 14:14 UA Urobilinogen 0.2 mg/dL Last Edit by Xiomara Anderson, RMA on 08/31/23 14:14 UA Protein 0 mg/dL Last Edit by Xiomara Anderson, RMA on 08/31/23 14:14 UA pH 6.5 Last Edit by Xiomara Anderson, RMA on 08/31/23 14:14 UA Blood 0 Morgan/uL Last Edit by Xiomara Anderson, RMA on 08/31/23 14:14 UA Specific De[place] 1.010 Last Edit by Xiomara Anderson, A on 08/31/23 14:14 UA Ketone Negative Last Edit by Xiomara Anderson, A on 08/31/23 14:14 UA Bilirubin 0 mg/dL Last Edit by Xiomara Anderson, A on 08/31/23 14:14 UA Glucose 0 mg/dL Last Edit by Xiomara Anderson, A on 08/31/23 14:14 Results Reviewed Results Reviewed: Laboratory Last Values Urine pH (Auto) 6.5 08/31/23 14:03 Specific De[place] (Auto) 1.010 08/31/23 14:03 Urine Protein (Auto) 0 mg/dL 08/31/23 14:03 Glucose (UA)(Auto) 0 mg/dL 08/31/23 14:03 Urine Ketones (Auto) Negative 08/31/23 14:03 Urine Blood (Auto) 0 Morgan/uL 08/31/23 14:03 Urine Nitrite (Auto) Negative 08/31/23 14:03 Urine Bilirubin (Auto) 0 mg/dL 08/31/23 14:03 Urine Urobilinogen (Auto) 0.2 mg/dL 08/31/23 14:03 Leukocyte Esterase (Auto) 0 Martha/uL 08/31/23 14:03 Assessment & Plan Assessment & Plan (1) Elevated PSA: Code(s): R97.20 - Elevated prostate specific antigen [PSA] (2) Bladder diverticulum: Code(s): N32.3 - Diverticulum of bladder (3) Renal cyst: Code(s): N28.1 - Cyst of kidney, acquired Plan Keep follow-up Orders: Orders AMB Urinalysis Automated 08/31/23 Z13.9 - Encounter for screening, unspecified Patient Instructions: Imaging studies, laboratory and physical exam results were discussed and reviewed in detail. No major barriers to patient understanding were identified. An opportunity to ask questions regarding the treatment plan was provided. All questions were answered. The patient expressed understanding and agreement with the above treatment plan. The patient is aware they should contact our office by phone for worsening of their current condition or the appearance of new urologic symptoms. Compliance is encouraged with any medications and followup testing that is ordered. It is a privilege to participate in the urologic care of your patient. If you have any questions or concerns regarding treatment for the above conditions, or other urologic issues, please do not hesitate to contact me. The office telephone contact is [phone]. This note is constructed using voice recognition software. While every effort has been made to ensure accuracy assistant produce manager errors may have been included. Yours sincerely, Dr Lucien Arriaga MD, [facility] - Urology Providers of Expert, Compassionate Care for the Genitourinary System Coding Level of Care Code Est Pt Level 3 (57809) Diagnoses Elevated PSA R97.20 Bladder diverticulum N32.3 Renal cyst N28.1
== END 2023-08-31 14:20 | disposition home or self-care (01) ==
LOC: HO.HUSH 13:57
PROVIDERS: PCP Internal Medicine; Visit Provider Urology
DX: R97.20 Elevated prostate specific antigen [PSA] (principal); N32.3 Diverticulum of bladder; N28.1 Cyst of kidney, acquired
CPT/HCPCS: 99213

== ENCOUNTER → 2023-08-31 13:57 | Outpatient (BNVA) | payer MEDICARE, MEDICAID, SELFPAY | PROVIDERS: PCP Internal Medicine; Visit Provider Urology | DX: R97.20 Elevated prostate specific antigen [PSA] (principal); N32.3 Diverticulum of bladder; N28.1 Cyst of kidney, acquired | CPT/HCPCS: 81003; 99212 ==

== ENCOUNTER 2023-10-07 17:40 | Outpatient (REF) | payer MEDICARE, MEDICAID, SELFPAY ==
[2023-10-07 17:57] LABS: Appearance Urine Clear; Color Urine Yellow; Glucose Urine UA Negative (Negative); Leukocyte Esterase Urine Negative (Negative); Nitrite Urine Negative (Negative); Specific Gravity - Urine 1.015 (1.005-1.025); Urine Blood Negative (Negative); Urine Ketones Negative (Negative); Urine Protein Negative (Neg-Trace)
[2023-10-07 18:03] LABS: Bacteria Urine None Seen (None Seen); Hyaline Casts Urine 0-2 /LPF (0-2); RBC Urine 0-2 /HPF (0-2); Squamous Epithelial Cell Urine 0-2 /HPF (0-2); WBC Urine 0-5 /HPF (0-5)
== END 2023-10-07 17:41 | disposition home or self-care (01) ==
LOC: HO.LNP 17:40
PROVIDERS: Visit Provider Urology
DX: N40.1 Benign prostatic hyperplasia with lower urinary tract symptoms (principal)
CPT/HCPCS: 81001; 87086; 87088; 87186

== ENCOUNTER 2024-01-09 17:21 | Emergency (ER) | payer MEDICARE, MEDICAID, SELFPAY ==
--- NOTE | ~2024-01-09 | CT_ITS ---
Examination: CT brain and CT cervical spine without contrast. CLINICAL INDICATION: Witnessed fall, pain and injury. COMPARISON: CT brain 11/19/2020. TECHNIQUE: 5 mm thin axial and reformatted 2 mm thin sagittal and coronal images of brain were obtained. Subsequently axial 3 mm thin and reformatted 2 mm thin sagittal and coronal images of cervical spine were obtained. DLP 1144 mGy/cm. This CT examination was performed using dose optimization technique as appropriate, variously including the following: Automated exposure control Adjustment of MA and/or KV according to patient size(this includes techniques or standardized protocols for targeted exams where dose is matched to indication/reason for exam; extremities or head. Use of iterative reconstruction techniques. FINDINGS: Brain: The exam is limited secondary to patient motion. There is no acute intra-axial, extra-axial bleed, masses or midline shift. There is no acute infarction evolution. There is no edema. There is extensive periventricular low hypodensity suggestive of chronic small vessel ischemic changes. The lateral ventricles are symmetrical in size and configuration but mildly enlarged. Grossly no bony abnormality seen no scalp soft tissue abnormality. There is mild mucoperiosteal thickening bilateral maxillary sinuses. Cervical spine: On sagittal reconstructed images there is maintained cervical lordosis. The vertebral heights, alignment is normal there is a large ventral bridging osteophytes from C4 through C6 and C7 vertebra. There is a large posterior osteophyte C3-C4 disc level resulting in mild AP canal stenosis. The craniovertebral junction and C1-C2 alignment is normal. There is no visible acute fracture, dislocation or subluxation seen. CT/CT cervical spine wo IV con IMPRESSION: 1. Limited exam secondary to patient motion. 2. No acute intracranial process seen. 3. There is no visible acute fracture, dislocation or subluxation seen in cervical spine. 4. There are degenerative disc changes with large ventral bridging osteophytes from C4 through C6 and C7 vertebra. There is a large posterior osteophyte C3-C4 disc level resulting in mild AP canal stenosis.
--- NOTE | 2024-01-09 17:26 | ED.GENADULT ---
HPI - General Adult General Chief complaint: Fall Stated complaint: WITNESSED FALL FROM [facility],-LOC,-THINNERS Time Seen by Provider: 01/09/24 17:25 Source: patient and EMS Mode of arrival: EMS Limitations: physical limitation (patient non-verbal at baseline) History of Present Illness HPI narrative: Patient is a 73 year old assigned male at with a history of being non-verbal at baseline presenting to the emergency department today from a facility after a witnessed fall. Staff states that the patient fell backwards when trying to get into his chair and struck his head. Staff states that the patient did not have any loss of consciousness. Onset (ago): minute(s) Location: head and neck Relieving factors: none Exacerbating factors: none Treatments prior to arrival: none Related Data Home Medications Medication Instructions Recorded Confirmed docusate sodium 100 mg tablet 200 mg PO DAILY 11/19/20 02/25/22 hydrochlorothiazide 25 mg tablet 25 mg PO DAILY@0800 11/19/20 02/25/22 lisinopril 20 mg tablet 20 mg PO DAILY 11/19/20 02/25/22 pravastatin 40 mg tablet 40 mg PO BEDTIME 11/19/20 02/25/22 lactulose 10 gram/15 mL oral 30 ml PO BEDTIME 08/25/21 02/25/22 solution loperamide 2 mg capsule 2 mg PO QID PRN Diarrhea 08/25/21 02/25/22 loratadine 10 mg tablet 10 mg PO DAILY PRN Allergy Symptoms 08/25/21 02/25/22 multivitamin with folic acid 400 1 tab PO BEDTIME 08/25/21 02/25/22 mcg tablet (Thera) omeprazole 40 mg capsule,delayed 40 mg PO DAILY 08/25/21 02/25/22 release Lactobacillus rhamnosus GG 10 1 cap PO DAILY 02/25/22 02/25/22 billion cell capsule (Culturelle) bacitracin zinc 500 unit/gram 1 appl topical QID 02/25/22 02/25/22 topical ointment lorazepam 2 mg tablet 1 tab PO DAILY PRN Anxiety 02/25/22 02/25/22 magnesium hydroxide 400 mg/5 mL 30 ml PO BEDTIME 02/25/22 02/25/22 oral suspension (Milk of Magnesia) polyethylene glycol 3350 17 17 g PO DAILY@1700 02/25/22 02/25/22 gram/dose oral powder (Miralax) Previous Rx's Medication Instructions Recorded amlodipine 5 mg tablet 5 mg PO DAILY 30 days #30 tabs 03/08/22 dexamethasone 6 mg tablet 6 mg PO DAILY #4 tabs 03/08/22 albuterol sulfate 90 mcg/actuation 2 puff inhalation Q4-6H PRN 08/29/22 aerosol inhaler shortness of breath or wheezing 5 days #8.5 grams finasteride 5 mg tablet 5 mg PO DAILY 90 days #90 tabs 08/04/23 tamsulosin 0.4 mg capsule 0.4 mg PO BEDTIME 90 days #90 caps 08/18/23 sulfamethoxazole 800 1 tab PO BID 10 days #20 tabs 10/10/23 mg-trimethoprim 160 mg tablet (Bactrim DS) Allergies Allergy/AdvReac Type Severity Reaction Status Date / Time azithromycin [AZITHROMYCIN] Allergy Unknown UNKOWN Verified 08/31/23 14:03 Macrolide Antibiotics Allergy Unknown unknown Verified 08/31/23 14:03 [MACROLIDE ANTIBIOTICS] Macrolides and ketolides Allergy Unknown Unknown Uncoded 08/31/23 14:03 Review of Systems Review of Systems: Yes Other (patient is non-verbal at baseline) [facility] Past Medical History Attestation statement: The following information was validated with the patient. (all information validated with the patient residency staff) Source: old records reviewed, nursing notes reviewed and other (patient's residency staff provided all history and ROS) Medical History HTN (hypertension) BPH (benign prostatic hyperplasia) Barretts syndrome GERD (gastroesophageal reflux disease) [place] (hard of hearing) Non-verbal learning disorder Social History Social History Household Members: Unknown / Unable to assess Housing: Assisted Living Facility Unable to assess alcohol history related to: Unable to respond and Unknown Patient Tobacco Use Status: Tobacco use Unknown Advance Directives: Yes Advance Directives on File: Yes Advance Directives Date on File: 01/09/24 service: No Current occupational status: disabled Physical Exam ED Vital Signs: Vital Signs - 24 hr 01/09/24 17:33 01/09/24 18:50 Temperature 97.2 F 97.6 F Pulse Rate 69 70 Respiratory Rate 16 16 Blood Pressure 142/76 H 169/73 H Pulse Oximetry 100 100 Oxygen Delivery Method Room Air Room Air BMI result Body Mass Index 22.5 Const General: cooperative, no acute distress, alert and awake Nutritional Appearance: well nourished Limitations: no limitations HENMT Head: Yes normal to inspection and Yes atraumatic Ears: hearing grossly normal bilaterally and external ears normal General nose exam: Normal external nose present, no nasal discharge noted and no epistaxis Face and sinus: Yes normal facial exam, No abrasion and No laceration Mouth: Normal oral and palatal mucosa present, no drooling and no muffled voice Eyes General: appearance normal, both eyes and all related structures Periorbital: periorbital findings normal Eyelids: Yes eyelids normal Conjunctivae: conjunctivae normal Pupils: Equal, round and reactive pupils present EOM: EOMs intact bilaterally Neck Other: patient in C-collar Chest Chest palpation & inspection: normal inspection of the chest Resp Effort & Inspection: normal respiratory effort and able to speak in complete sentences GI Inspection: Yes normal to inspection Neuro Other: patient non-verbal at baseline General: moves all extremities Cranial nerves: Yes Equal, round and reactive pupils present Extrem General: Yes normal to inspection, Yes full ROM and Yes capillary refill normal Medical Decision Making Medical Decision Making MDM Narrative: Patient is a 73 year old assigned male at with a history of being non-verbal at baseline presenting to the emergency department today after a fall. Patient's physical exam was unremarkable. Patient's CT head and c-spine showed no acute process. I explained my physical exam findings as well as all test results to the patient and the patient's staff. I answered all questions asked by the patient's staff. I stressed the importance of the patient taking his medication as prescribed. I stressed the importance of the patient following up with his primary care provider. I stressed the importance of the patient returning to the emergency department immediately if his symptoms were to worsen or if he were to develop any dizziness, shortness of breath, difficulty breathing, chest pain, blurry vision, loss of vision, nausea, vomiting, abdominal pain, fever, chills, back pain, or any other complaints. Patient's staff verbalized agreement and understanding with this treatment plan and discharge back to the facility he resides in. Differential Diagnosis Differential Diagnoses: The differential diagnosis associated with the presentation includes Fall Head injury Intracranial bleed Cervical fracture Admission/Observation Consideration of admission/observation: Escalation of care including admission/observation considered Patient would have been admitted to the hospital had his work up had any findings where hospital admission was appropriate and his clinical presentation warranted hospital admission. Independent Interpretation I performed an independent interpretation of an: CT Scan Interpretation: My interpretation is in agreement with the radiologist's impression of these imaging studies. Examination: CT brain and CT cervical spine without contrast. CLINICAL INDICATION: Witnessed fall, pain and injury. COMPARISON: CT brain 11/19/2020. TECHNIQUE: 5 mm thin axial and reformatted 2 mm thin sagittal and coronal images of brain were obtained. Subsequently axial 3 mm thin and reformatted 2 mm thin sagittal and coronal images of cervical spine were obtained. DLP 1144 mGy/cm. This CT examination was performed using dose optimization technique as appropriate, variously including the following: Automated exposure control Adjustment of MA and/or KV according to patient size(this includes techniques or standardized protocols for targeted exams where dose is matched to indication/reason for exam; extremities or head. Use of iterative reconstruction techniques. FINDINGS: Brain: The exam is limited secondary to patient motion. There is no acute intra-axial, extra-axial bleed, masses or midline shift. There is no acute infarction evolution. There is no edema. There is extensive periventricular low hypodensity suggestive of chronic small vessel ischemic changes. The lateral ventricles are symmetrical in size and configuration but mildly enlarged. Grossly no bony abnormality seen no scalp soft tissue abnormality. There is mild mucoperiosteal thickening bilateral maxillary sinuses. Cervical spine: On sagittal reconstructed images there is maintained cervical lordosis. The vertebral heights, alignment is normal there is a large ventral bridging osteophytes from C4 through C6 and C7 vertebra. There is a large posterior osteophyte C3-C4 disc level resulting in mild AP canal stenosis. The craniovertebral junction and C1-C2 alignment is normal. There is no visible acute fracture, dislocation or subluxation seen. CT/CT head/brain wo IV con IMPRESSION: 1. Limited exam secondary to patient motion. 2. No acute intracranial process seen. 3. There is no visible acute fracture, dislocation or subluxation seen in cervical spine. 4. There are degenerative disc changes with large ventral bridging osteophytes from C4 through C6 and C7 vertebra. There is a large posterior osteophyte C3-C4 disc level resulting in mild AP canal stenosis. Dictated By: Xavi Bergeron MD Signed By: Electronically signed by Xavi Bergeron MD 01/09/241925 Radiology Impression Discussion of test interpretation with radiology: I have reviewed the radiologist's reading. Independent Historian Clinical information obtained from an independent historian. History obtained from or confirmed by: EMS (EMS provided additional history and confirmed the history provided by patient's residence staff) and Other (patient's residence staff provided additional history and confirmed the history provided by EMS) Discharge Plan Discharge Clinical Impression: Fall Patient Disposition: Home, Self-Care Instructions: Fall Prevention (ED) Additional Instructions: Follow up with your primary care provider. Return to the emergency department immediately if your symptoms worsen or if you develop any dizziness, shortness of breath, difficulty breathing, chest pain, blurry vision, loss of vision, nausea, vomiting, abdominal pain, fever, chills, back pain, or any other complaints. Prescriptions: No Action finasteride 5 mg tablet 5 mg PO DAILY 90 Days Qty: 90 3RF tamsulosin 0.4 mg capsule 0.4 mg PO BEDTIME 90 Days Qty: 90 3RF sulfamethoxazole-trimethoprim [Bactrim DS] 800-160 mg tablet 1 tab PO BID 10 Days Qty: 20 0RF pravastatin 40 mg Tablet 40 mg PO BEDTIME lisinopril 20 mg Tablet 20 mg PO DAILY hydrochlorothiazide 25 mg Tablet 25 mg PO DAILY@0800 docusate sodium 100 mg Tablet 200 mg PO DAILY albuterol sulfate 90 mcg/actuation HFA aerosol inhaler 2 puff inhalation Q4-6H PRN (Reason: shortness of breath or wheezing) 5 Days Qty: 8.5 0RF magnesium hydroxide [Milk of Magnesia] 400 mg/5 mL suspension 30 ml PO BEDTIME lorazepam 2 mg tablet 1 tab PO DAILY PRN (Reason: Anxiety) Rx Instructions: PRE MED FOR DENTAL APPOINTMENTS bacitracin zinc 500 unit/gram Ointment 1 appl TOPICAL QID polyethylene glycol 3350 [Miralax] 17 gram/dose Powder 17 g PO DAILY@1700 Culturelle 10 billion cell Capsule 1 cap PO DAILY amlodipine 5 mg Tablet 5 mg PO DAILY 30 Days Qty: 30 0RF Protocol: Hold for SBP< HOLD for SBP < : 90 dexamethasone 6 mg tablet 6 mg PO DAILY Qty: 4 0RF multivitamin with folic acid [Thera] 400 mcg tablet 1 tab PO BEDTIME omeprazole 40 mg capsule,delayed release(DR/EC) 40 mg PO DAILY lactulose 10 gram/15 mL solution 30 ml PO BEDTIME loperamide 2 mg capsule 2 mg PO QID PRN (Reason: Diarrhea) loratadine 10 mg tablet 10 mg PO DAILY PRN (Reason: Allergy Symptoms) Referrals: [facility] [place]] (Consider establishing and following up with this office if you do not already have a primary care provider. If you already have a primary care provider, please follow up with them.) [facility] [facility]Provider Group] (Consider establishing and following up with this office if you do not already have a primary care provider. If you already have a primary care provider, please follow up with them.) [facility] [Provider Group] (Consider establishing and following up with this office if you do not already have a primary care provider. If you already have a primary care provider, please follow up with them.) Print Language: Russian
[2024-01-09 17:28] VITALS: BP 130/92; PULSE 76; O2SAT 98
[2024-01-09 17:33] VITALS: BP 142/76; PULSE 69; RESP 16; TEMP 36.2; O2SAT 100; BMI 22.5
[2024-01-09 18:50] VITALS: BP 169/73; PULSE 70; RESP 16; TEMP 36.4; O2SAT 100
== END 2024-01-09 20:16 | disposition home or self-care (01) ==
PROVIDERS: Emergency Provider Emergency Medicine
DX: Z04.3 Encounter for examination and observation following other accident (principal); I10 Essential (primary) hypertension; Z91.81 History of falling
CPT/HCPCS: 70450; 72125; 99283; 99284

== ENCOUNTER 2024-02-17 10:23 | Outpatient (AMB) | payer MEDICARE, MEDICAID, SELFPAY ==
--- NOTE | 2024-02-17 10:28 | A.OFFVIS_ITS ---
Intake Visit Reasons: 6m/PVR Intake Note: Patient is Present for Follow Up Urology Medication: Finasteride, Tamsulosin Antibiotic Allergies: Macrolide Antibiotics, Azithromycin Blood Thinners: None [facility] Required: No Accompanied by: business continuity director Allergies azithromycin [AZITHROMYCIN] Allergy (Unknown, Verified 02/18/24 13:35) UNKOWN Macrolide Antibiotics [MACROLIDE ANTIBIOTICS] Allergy (Unknown, Verified 02/18/24 13:35) unknown Macrolides and ketolides Allergy (Unknown, Uncoded 02/18/24 13:35) Unknown Medication List - Last Reconciled 02/18/24 by RJ Ramos acetaminophen mg PO PRN bacitracin zinc 1 appl topical QID bisacodyl (OneLAX Bisacodyl) mg ND docusate sodium 200 mg PO DAILY finasteride 5 mg PO DAILY 90 days hydrochlorothiazide 25 mg PO DAILY@0800 Lactobacillus rhamnosus GG (Culturelle) 1 cap PO DAILY lactulose 30 mL PO BEDTIME lisinopril 20 mg PO DAILY loratadine 10 mg PO DAILY PRN lorazepam 1 tab PO DAILY PRN magnesium hydroxide (Milk of Magnesia) 30 mL PO BEDTIME multivitamin with folic acid 400 mcg (Thera) 1 tab PO BEDTIME omeprazole 40 mg PO DAILY omeprazole 40 mg PO DAILY polyethylene glycol 3350 (Miralax) 17 grams PO DAILY@1700 pravastatin 40 mg PO BEDTIME sodium phosphates 19-7 gram/118 mL (Enema Disposable) mL ND tamsulosin 0.8 mg (2 x 0.4 mg) PO BEDTIME 90 days terbinafine HCl 1% (Antifungal (terbinafine)) 1 appl topical BID PRN HPI Comments Details: Wilfredo is a very pleasant 73 year old male patient of Dr. Tovar was accompanied by his case workers from the [facility]. He has a past medical history of Bustamante syndrome, BPH, GERD, hard of hearing, hypertension, and nonverbal learning disorder. He presents to the office today for a follow-up of his recent urinary tract infection, incomplete bladder emptying, and elevated PSA. Much of today's history is provided by patient's hospice patient care secretary from [facility] as patient mainly nonverbal. No urinary issues or concerns at this time. Unable to obtain urine for urinalysis as patient unable to void. PVR 316ml's. Discussed at length potential causes of incomplete bladder emptying. In review of patient's MAR it does appear patient is compliant with Flomax and finasteride as prescribed. Discussed increase in Flomax given increased postvoid residual. PSAs are as follows: PSA 11/19 5.2, 04/20 6.5, 08/20 2.7, 02/19 2.7, 02/20 5.0, 08/22--3.6 Previous workup has included a retroperitoneal ultrasound 08/22 noting multiple renal cysts bilateral, no evidence of hydronephrosis, recent Will bladder emptying, possible diverticulum. [facility] staff members report patient to be doing well. They deny any UTI like symptoms and or patient had any UTI since his last office visit. Staff continue to perform bladder training/scheduled toileting/and frequent reminders and feels this helps. [facility] Medical History HTN (hypertension) BPH (benign prostatic hyperplasia) Barretts syndrome GERD (gastroesophageal reflux disease) [place] (hard of hearing) Non-verbal learning disorder Social History Household Members: Unknown / Unable to assess Housing: Assisted Living Facility Unable to assess alcohol history related to: Unable to respond and Unknown Patient Tobacco Use Status: Tobacco use Unknown Advance Directives Date on File: 01/09/24 service: No Current occupational status: disabled Review of Systems Const Unobtainable due to mental condition Physical Exam Const General: cooperative, comfortable, no acute distress, well developed, alert and awake Orientation/consciousness: oriented to person Limitations: other limitations (hearing impaired ) HEENT Head: Yes normal to inspection Eyes General: appearance normal, both eyes and all related structures Neck Neck: Yes normal visual inspection and Yes trachea midline Resp Effort & Inspection: normal respiratory effort Cardio Rate: regular rate GI Inspection: Yes normal to inspection General: Yes no CVA tenderness Back/Spine/Pelvis Back: no CVA tenderness Neuro General: oriented to person Extrem General: Yes normal to inspection Psych Speech and movement: Other speech and movement exam findings present (Psych) (non verbal ) Attitude: cooperative Insight: Limited insight present (Psych) Judgement: Limited judgement present (Psych) Office Procedures Post Void Residual Post Residual Void Post Void Residual (PVR): [id number] Void Residual by ultrasound Assessment & Plan Assessment & Plan (1) Elevated PSA: Code(s): R97.20 - Elevated prostate specific antigen [PSA] Category: Medical (2) Bladder diverticulum: Code(s): N32.3 - Diverticulum of bladder Category: Medical (3) Incomplete bladder emptying: Code(s): R33.9 - Retention of urine, unspecified Category: Medical (4) Renal cyst: Code(s): N28.1 - Cyst of kidney, acquired Category: Medical Plan Unable to obtain urine for urinalysis as patient unable to void. PVR 316 mL. Discussed at length potential causes and affects of incomplete bladder emptying. Will increase Flomax to 0.8 mg daily; discussed option of taking 0.8 mg at bedtime verses 0.4 mg b.i.d. Continue finasteride as discussed and prescribed. Will obtain PSA for further assessment evaluation. Continue with prompt voiding. Follow-up in 6-8 weeks with PSA and PVR; or sooner with any issues, concerns, and or questions. Orders: Orders PSA,Total (Free>4and<10) 02/17/24 R97.20 - Elevated prostate specific antigen [PSA] AMB Post Void Residual by ultrasound 02/17/24 R35.1 - Nocturia Medications: Changed From tamsulosin 0.4 mg PO BEDTIME 90 days 90 caps 3RF To tamsulosin This is an increase in dose Can take 0.8 mg at bedtime or 0.4 mg b.i.d. 0.8 mg (2 x 0.4 mg) PO BEDTIME 90 days 180 caps 3RF Patient Instructions: The patient had an opportunity to ask questions regarding the treatment plan. All questions were answered. Physical exam, labs, and imaging were discussed and reviewed in detail. As well as risks, benefits, and discussion of treatment choices. No major barriers to understanding were identified. The patient expressed understanding and agreement with the above treatment plan. The patient was made aware they should contact our office by phone for worsening of their current condition, the appearance of new symptoms, or with any questions or concerns. Compliance is encouraged with any medications and follow up testing that is ordered. It is a privilege to be allowed the opportunity to participate in? your urological care.? Again, if you have any questions or concerns If you have any questions or concerns please do not hesitate to contact me. The office is [phone]. This note is constructed using voice recognition software. While every effort has been made to ensure accuracy commodity specialist errors may have been included. Yours sincerely, RJ Ramos
== END 2024-02-17 10:59 | disposition home or self-care (01) ==
PROVIDERS: PCP Internal Medicine; Visit Provider Nurse Practitioner Family
DX: R97.20 Elevated prostate specific antigen [PSA] (principal); N32.3 Diverticulum of bladder; R33.9 Retention of urine, unspecified; N28.1 Cyst of kidney, acquired
CPT/HCPCS: 99213

== ENCOUNTER → 2024-02-17 10:23 | Outpatient (BNVA) | payer MEDICARE, MEDICAID, SELFPAY | PROVIDERS: PCP Internal Medicine; Visit Provider Nurse Practitioner Family | DX: R97.20 Elevated prostate specific antigen [PSA] (principal); R35.1 Nocturia; N32.3 Diverticulum of bladder; R33.9 Retention of urine, unspecified; N28.1 Cyst of kidney, acquired; Z79.899 Other long term (current) drug therapy | CPT/HCPCS: 51798; 99212 ==

== ENCOUNTER 2024-02-26 12:26 | Inpatient (IN) | payer MEDICARE, MEDICAID, SELFPAY ==
[2024-02-26] VITALS (11 sets, daily range): BP systolic 87–102; BP diastolic 47–57; PULSE 75–103; RESP 14–20; TEMP 37.3–38.2; O2SAT 90–98; BMI 23.0
--- NOTE | ~2024-02-26 | XR_ITS ---
EXAMINATION: XR CHEST CLINICAL INFORMATION: Cough COMPARISON: X-ray 05/07/2023 TECHNIQUE: Frontal view of the chest was obtained. FINDINGS: Stable cardiac and mediastinal silhouette. Monitoring leads overlie the chest. Small right pleural effusion. Hazy bibasilar opacities could reflect inflammatory/infectious process. No pulmonary edema. No pneumothorax. Bilateral glenohumeral joint arthritis. Right acromioclavicular arthritis. XR/XR chest 1V IMPRESSION: Small right pleural effusion. Hazy bibasilar opacities could reflect infectious or inflammatory process.
--- NOTE | ~2024-02-26 | XR_ITS ---
EXAMINATION: XR CHEST CLINICAL INFORMATION: Flu. Fever. Pneumonia COMPARISON: 02/26/2024 TECHNIQUE: 2 views of the chest were obtained. FINDINGS: Bibasilar effusions have increased. Bibasilar atelectasis is again observed. Upper lungs clear. Heart and pulmonary vessels are normal without evidence of congestive change. XR/XR chest 2V IMPRESSION: Progressive bibasilar effusions.
--- NOTE | 2024-02-26 12:34 | ECG_ITS ---
Test Reason : ALTERED Blood Pressure : / mmHG Vent. Rate : 081 BPM Atrial Rate : 081 BPM P-R Int : 158 ms QRS Dur : 086 ms QT Int : 352 ms P-R-T Axes : 087 038 066 degrees QTc Int : 408 ms Sinus rhythm with Premature supraventricular complexes Otherwise normal ECG When compared with ECG of 29-AUG-2022 10:05, Premature supraventricular complexes are now Present Referred By: Tamara Kenney Electronically Signed By:GATITO CARDENAS
--- NOTE | 2024-02-26 12:37 | ED.GENADULT ---
HPI - General Adult General Chief complaint: Fever Stated complaint: WEAKNESS GENERAL MALAISE Time Seen by Provider: 02/26/24 12:34 Source: EMS, RN notes reviewed and old records reviewed Mode of arrival: EMS Limitations: altered mental status History of Present Illness HPI narrative: 73-year-old nonverbal & deaf male with history of HTN, BPH, aspiration pneumonia, history of UTI, history of falls who presents to the ER from his nursing home for evaluation of lethargy and not acting himself along w/ fever 102.6 at home. History is obtained from the director of group counseling program as patient is nonverbal and deaf. He is ambulatory independently at baseline. She states he is usually the 1st 1 up in the nursing home whenever he smells the food cooking for breakfast. Today he did not wake for breakfast. When she went to give him his pills this morning he took him in went back to bed. He also had a new harsh cough. At 11:00 they took his temperature and it was 102.6. He was given Tylenol. He has a history of aspiration pneumonia so they brought him to the ER for evaluation. The caregiver denies any witnessed aspiration events over the weekend. Wilfredo is unable to communicate if he has any pain or discomfort. complaint: Lethargy & fever Onset (ago): hour(s) Relieving factors: medication (tylenol) Treatments prior to arrival: other (tylenol) Related Data Home Medications ?Medication ?Instructions ?Recorded ?Confirmed docusate sodium 100 mg tablet 200 mg PO DAILY 11/19/20 02/25/22 hydrochlorothiazide 25 mg tablet 25 mg PO DAILY@0800 11/19/20 02/25/22 lisinopril 20 mg tablet 20 mg PO DAILY 11/19/20 02/25/22 pravastatin 40 mg tablet 40 mg PO BEDTIME 11/19/20 02/25/22 lactulose 10 gram/15 mL oral 30 ml PO BEDTIME 08/25/21 02/25/22 solution loratadine 10 mg tablet 10 mg PO DAILY PRN Allergy Symptoms 08/25/21 02/25/22 multivitamin with folic acid 400 1 tab PO BEDTIME 08/25/21 02/25/22 mcg tablet (Thera) omeprazole 40 mg capsule,delayed 40 mg PO DAILY 08/25/21 02/25/22 release Lactobacillus rhamnosus GG 10 1 cap PO DAILY 02/25/22 02/25/22 billion cell capsule (Culturelle) bacitracin zinc 500 unit/gram 1 appl topical QID 02/25/22 02/25/22 topical ointment lorazepam 2 mg tablet 1 tab PO DAILY PRN Anxiety 02/25/22 02/25/22 magnesium hydroxide 400 mg/5 mL 30 ml PO BEDTIME 02/25/22 02/25/22 oral suspension (Milk of Magnesia) polyethylene glycol 3350 17 17 g PO DAILY@1700 02/25/22 02/25/22 gram/dose oral powder (Miralax) acetaminophen 325 mg tablet mg PO PRN 02/17/24 bisacodyl 10 mg rectal suppository mg TN 02/17/24 (OneLAX Bisacodyl) omeprazole 40 mg capsule,delayed 40 mg PO DAILY 02/17/24 release sodium phosphates 19 gram-7 ml TN 02/17/24 gram/118 mL enema (Enema Disposable) terbinafine HCl 1 % topical cream 1 appl topical BID PRN 02/17/24 (Antifungal (terbinafine)) Previous Rx's ?Medication ?Instructions ?Recorded finasteride 5 mg tablet 5 mg PO DAILY 90 days #90 tabs 08/04/23 tamsulosin 0.4 mg capsule 0.8 mg (2 x 0.4 mg) PO BEDTIME 90 02/17/24 days #180 caps Allergies Allergy/AdvReac Type Severity Reaction Status Date / Time azithromycin [AZITHROMYCIN] Allergy Unknown UNKOWN Verified 02/26/24 12:48 Macrolide Antibiotics Allergy Unknown unknown Verified 02/26/24 12:48 [MACROLIDE ANTIBIOTICS] Macrolides and ketolides Allergy Unknown Unknown Uncoded 02/26/24 12:48 Review of Systems Review of Systems: Yes Unobtainable due to mental condition [facility] Past Medical History Medical History HTN (hypertension) BPH (benign prostatic hyperplasia) Barretts syndrome GERD (gastroesophageal reflux disease) [place] (hard of hearing) Non-verbal learning disorder Social History Social History Household Members: Unknown / Unable to assess Housing: Assisted Living Facility Unable to assess alcohol history related to: Unable to respond and Unknown Patient Tobacco Use Status: Tobacco use Unknown Advance Directives: Yes Advance Directives on File: Yes Advance Directives Date on File: 01/09/24 service: No Current occupational status: disabled Physical Exam ED Vital Signs: Vital Signs - 24 hr 02/26/24 12:39 02/26/24 13:43 02/26/24 13:55 Temperature 100.5 F H 99.1 F Pulse Rate 87 80 82 Respiratory Rate 17 17 15 Blood Pressure 91/47 L 92/51 L 95/49 L Pulse Oximetry 94 98 96 Oxygen Delivery Method Room Air Room Air Room Air 02/26/24 14:11 02/26/24 14:54 02/26/24 16:04 Temperature 99.2 F Pulse Rate 75 80 88 Respiratory Rate 19 18 15 Blood Pressure 87/49 L 98/52 L 99/54 L Pulse Oximetry 94 96 94 Oxygen Delivery Method Room Air Room Air Room Air BMI result Body Mass Index 23.0 Appearance: Awake and alert elderly male sitting up in the stretcher, no acute distress Head: normocephalic, atraumatic. Eyes: Pupils equal, round and reactive to light. ENT: Pharynx normal. No tonsillar swelling or exudate. Neck: Normal inspection. Neck supple. CVS: Normal heart rate and rhythm. Pulses normal. Respiratory: No respiratory distress. Breath sounds diminished at the bilateral bases Abdomen: Rotund, Soft and nontender. +BS x4 Skin: Skin very warm and dry. Normal skin color. Normal skin turgor. No rashes. Extremities: No lower extremity edema. No joint swelling. Bilateral upper extremity contractures and involuntary movements of the left hand. Neuro/psych: Awake and alert, tracks does not follow verbal commands. Course Reevaluation(s) Reevaluation #1: Patient completed 30 cc/kilos sepsis fluid bolus. Blood pressures remain soft. He was found to be influenza A positive. No bacterial source of infection has been identified. He did receive his lisinopril and hydrochlorothiazide this morning per the childcare center administrator at the bedside. This is contributing to his hypotension. Additional IV fluids have been ordered. Time: 14:11 Reevaluation #2: Hemodynamics improving with additional IV fluid resuscitation. Map is now 67. Time: 15:07 Reevaluation #3: Blood pressure remained stable. Patient to be admitted to the floor for further management of viral sepsis. Time: 16:29 Medications Administered Discontinued Medications Generic Name Dose Route Start Last Admin Trade Name Freq PRN Reason Stop Dose Admin Sodium Chloride 1,000 mls @ 999 mls/hr 02/26/24 13:00 02/26/24 13:18 Ns IV 02/26/24 14:00 Not Given .Q1H1M NITHYA Sodium Chloride 2,244 mls @ 2,244 mls/hr 02/26/24 13:05 02/26/24 13:55 Ns 30 ml/kg infuse over 1 hr (2244 ml) 02/26/24 14:04 Infused IV Infusion .Q1H STA Ceftriaxone Sodium 1 gm/ 50 mls @ 100 mls/hr 02/26/24 13:05 02/26/24 13:51 Sodium Chloride IV 02/26/24 13:34 Infused ONCE ONE Infusion Sodium Chloride 1,000 mls @ 999 mls/hr 02/26/24 14:15 02/26/24 15:23 Ns IVCONT 02/26/24 15:15 Infused .Q1H1M NITHYA Infusion Albumin Human 100 mls @ 100 mls/hr 02/26/24 14:12 02/26/24 15:45 Kedbumin 25 % IV 02/26/24 15:11 Infused ONCE ONE Infusion Oseltamivir Phosphate 75 mg 02/26/24 16:07 02/26/24 16:48 Oseltamivir Phosphate 75 Mg Capsule PO 02/26/24 16:08 75 mg ONCE ONE Administration Medical Decision Making Medical Decision Making MDM Narrative: 73-year-old male with a history deafness, nonverbal at baseline, HTN, BPH, aspiration pneumonia, UTI who who presents to the ER for evaluation of lethargy and fever. On arrival to the ER patient's rectal temperature is a 100.5, blood pressure 90s/40s, awake, alert and well perfused peripherally. Concern for possible sepsis with history of aspiration pneumonia and UTI. IV fluids and antibiotics ordered upon arrival. Patient was given a 30 cc/kg IV fluid bolus. Differential Diagnosis Differential Diagnoses: The differential diagnosis associated with the presentation includes Aspiration pneumonia, COVID, flu, RSV, bronchitis, UTI, pyelonephritis Admission/Observation Consideration of admission/observation: Escalation of care including admission/observation considered Consult Healthcare Provider Management of the patient was discussed with: Hospitalist Lab Data MDM Lab Attestation statement: I reviewed the patient's lab results. New pancytopenia 02/26/24 12:56 02/26/24 12:56 Labs: Lab Results 02/26/24 02/26/24 02/26/24 Range/Units 12:56 12:59 14:55 WBC 4.2 L (4.8-10.8) X10*3/uL RBC 4.13 L (4.60-5.80) X10*6/uL Hgb 12.4 L (14.0-18.0) g/dl Hct 36.5 L (42.0-52.0) % MCV 88.4 (80.0-98.0) fL MCH 30.0 (27.0-33.0) pg MCHC 34.0 (31.0-36.0) g/dl RDW 14.0 (11.0-16.0) % Plt Count 151 L (160-400) X10*3/uL MPV 11.9 (9.4-12.4) fL Immature Gran % (Auto) 0.2 (0.0-0.4) % Neut % (Auto) 76.5 H (45-73) % Lymph % (Auto) 11.9 L (20-40) % [place] % (Auto) 11.0 (2-11) % Eos % (Auto) 0.2 (0-4) % Baso % (Auto) 0.2 (0-2) % Lymph # (Auto) 0.5 L (1.2-4.9) X10*3/uL [place] # (Auto) 0.5 (0.1-1.2) X10*3/uL Eos # (Auto) 0.0 (0.0-0.4) X10*3/uL Baso # (Auto) 0.0 (0.0-0.2) X10*3/uL Abs Immat Gran (auto) 0.01 (0.00-0.03) X10*3/uL Absolute Neuts (auto) 3.2 (2.0-8.3) x10*3/uL Absolute Nucleated RBC 0.000 (0.0-0.012) X10*3/uL Nucleated RBC % (auto) 0.0 (0.0-0.2) /100WBC PT 12.8 (11.1-13.3) SEC INR 1.1 (0.9-1.1) Sodium 133 L (135-145) mmol/L Potassium 3.7 (3.3-5.1) mmol/L Chloride 99 (96-108) mmol/L Carbon Dioxide 26 (22-29) mmol/L Anion Gap 12 (12-20) BUN 25 H (9-16) mg/dL Creatinine 1.24 (0.5-1.4) mg/dL Estim Creat Clear Calc 55.2 Estimated GFR 57 Random Glucose 105 (60-115) mg/dL Lactic Acid 1.2 (0.5-2.0) mmol/L Calcium 8.2 L D (8.4-10.2) mg/dL Total Bilirubin 0.5 (0.0-1.0) mg/dL AST 20 (5-37) U/L ALT 20 (0-40) U/L Alkaline Phosphatase 54 (39-117) U/L Total Protein 5.8 L (6.5-8.0) g/dL Albumin 3.3 L (3.5-5.0) g/dL Urine Color Yellow Urine Appearance Clear Urine pH 6.5 (5.0-9.0) Ur Specific [place] 1.015 (1.005-1.025) Urine Protein Negative (Neg-Trace) mg/dL Urine Glucose (UA) Negative (Negative) mg/dL Urine Ketones Negative (Negative) mg/dL Urine Blood Negative (Negative) Urine Nitrite Negative (Negative) Ur Leukocyte Esterase Negative (Negative) Influenza Type A (PCR) POSITIVE A (Negative) Influenza Type B (PCR) NEGATIVE (Negative) RSV RNA Qual (PCR) NEGATIVE (Negative) SARS-CoV-2 RNA (RT-PCR) NEGATIVE (Negative) Independent Interpretation I performed an independent interpretation of an: EKG and Plain X-Ray Interpretation: EKG with normal sinus rhythm with sinus arrhythmia, ventricular rate 81 beats per minute, normal QTC, normal TN interval, no ST segment elevations or depressions. Chest x-ray with right lower lobe infiltrate vs effusion Radiology Impression Discussion of test interpretation with radiology: I have reviewed the radiologist's reading. Radiologist Impression: EXAMINATION: XR CHEST CLINICAL INFORMATION: Cough COMPARISON: X-ray 05/07/2023 TECHNIQUE: Frontal view of the chest was obtained. FINDINGS: Stable cardiac and mediastinal silhouette. Monitoring leads overlie the chest. Small right pleural effusion. Hazy bibasilar opacities could reflect inflammatory/infectious process. No pulmonary edema. No pneumothorax. Bilateral glenohumeral joint arthritis. Right acromioclavicular arthritis. XR/XR chest 1V IMPRESSION: Small right pleural effusion. Hazy bibasilar opacities could reflect infectious or inflammatory process. Independent Historian Clinical information obtained from an independent historian. History obtained from or confirmed by: EMS and Other (Caregiver) External Record Review External record reviewed: Inpatient record, Outpatient record, Prior outpatient labs and Prior outpatient radiology Prescription Management I considered prescription management with: Antibiotic Chronic Conditions Patient?s care impacted by: Hypertension Social Determinants Patient?s care significantly limited by Social Determinants of Health including: Other Social Determinant of Health (Patient unable to communicate) Critical Care Time Critical Care Time Critical Care Time: Yes Total Critical Care Time: 68 Attestation: I have personally provided critical care time exclusive of time spent on separately billable procedures. Time includes review of lab data, radiology results, discussion with consultants, and monitoring for potential decompensation. Intervention performed as documented. Discharge Plan Discharge Clinical Impression: Influenza, Sepsis Patient Disposition: Admitted As Inpatient Print Language: Bahamian
[2024-02-26] MEDS: SODIUM CHLORIDE 2244 ML IV (12:52)
[2024-02-26 13:07] LABS: MANUAL DIFF FLAG NO
[2024-02-26 13:08] LABS: Basophils Percent Auto 0.2 % (0-2); Eosinophils Percent Auto 0.2 % (0-4); Hematocrit 36.5 % (42.0-52.0); Hemoglobin 12.4 g/dl (14.0-18.0); Imm Gran Abs Auto 0.01 X10*3/uL (0.00-0.03); Imm Gran Pct Auto 0.2 % (0.0-0.4); Lymphocytes Absolute Auto 0.5 X10*3/uL (1.2-4.9); Lymphocytes Percent Auto 11.9 % (20-40); Mean Corpuscular Volume 88.4 fL (80.0-98.0); Mean Platelet Volume 11.9 fL (9.4-12.4); Monocytes Absolute Auto 0.5 X10*3/uL (0.1-1.2); Neutrophils Absolute Auto 3.2 x10*3/uL (2.0-8.3); Neutrophils Percent Auto 76.5 % (45-73); Platelet Count 151 X10*3/uL (160-400); Red Blood Count 4.13 X10*6/uL (4.60-5.80); White Blood Count 4.2 X10*3/uL (4.8-10.8)
--- OUTSIDE RECORDS SUMMARY | 2024-02-26 13:13 | XMS_ITS | Continuity of Care Document ---
Author Organization [facility] Chace lt Address [address] [place] [address]- Care Team Providers Care Mustanger Name Role Phone La MADISON, Brandon Chamorro Primary Care Physician [facility] Date[facility]): 05/27/23 - 06/26/23 [facility] [address] [place] [address]- Allergies, Adverse Reactions, Alerts Substance Reaction Severity Status azithromycin Active macrolide antibiotics Active ketolides Active Dust Active Immunizations Given and Recorded Vaccine Date Status Refusal Reason [id number] 12y+ bivalent booster vax 07/22/22 Recorded tetanus-diphtheria [...] 08/31/20 Recorde d Influenza Virus Vaccine (oldterm) 3 07/18/09 Given Influenza Virus Vaccine (oldterm) 4 09/02/07 Given zoster vaccine, inactivated 12/29/18 Recorded zoster vaccine, inactivated 09/30/18 Recorded pneumococcal 23-valent vaccine 06/28/18 Given pneumococcal 23-valent vaccine 04/08/95 Given pneumococcal 13-valent vaccine 06/24/15 Given Zostavax (oldterm) 05/13/12 Given Tet/diphth/pertussis, acel (oldterm) 09/06/11 Give n Fluarix (oldterm) 5 08/05/11 Given FluLaval (oldterm) 6 08/05/10 Given Influenza Inactive (IM) (oldterm) 7 08/16/08 Given 1Admin Note: FLU CLINIC 2Admin Note: VIS GIVEN 3Admin Note: given by lisy doc by tyler 4Admin Note: given in clinic 5Admin Note: FLU CLINIC 6Admin Note: [facility] VIS [id number] given 7Admin Note: given in clinic Medications acetaminophen 325 mg oral tablet 2, tablet, By Mouth, Every 6 hours, PRN, [id number]., # 60 tablet, Refills 0, Maintenance, NEEDED FOR FEVER>100.5 OR PAIN SHOWN BY FACIAL GRIMACE NOTIFY MD IF USED >, 11/12/22 9:30:00 EST, Route to Pharmacy Electronically, [facility], 175.2, c... Start Date: 11/12/22 Stop Date: 11/15/22 Status: Ordered bacitracin zinc 500 units/g topical ointment See Instructions, APPLY SMALL AMOUNT TOPICALLY TO SUPERFICIAL WOUNDS 4 TIMES A DAY NEEDED AN ANTIBACTERIAL / CALL MD IF USING FOR MORE THAN 7 DAYS, # 28 Gm, 11 Refills, Maintenance, 11/09/22 15:57:00 EST, [facility], 7, APPLY SMALL AMOUNT T... Start [...] supp, 11 Refills, Maintenance, 12/16/22 13:35:00 EST, [facility], 175.2, cm, 07/27/22 11:37:00 EDT, Height [...] Ordered Culturelle Health and Wellness oral capsule See Instructions, TAKE 1 CAPSULE BY MOUTH DAILY IN AM FOR INTESTINAL HEALTH 1 CAP=15 BILLION CFU MAY OPEN CAPSULE, # 30 capsule, 11 Refills, Maintenance, 06/21/23 14:02:00 EDT, [facility], 30, TAKE 1 CAPSULE BY MOUTH DAILY IN AM FOR INTESTINAL HE... Start Date: 06/21/23 Status: Ordered diazepam 10 mg oral tablet [...] Stop 04/06/24 13:54:00 EDT, 04/05/23 13:54:00 EDT, [facility], 5, ONE... Start Date: 04/05/23 Stop Date: 04/06/24 Status: Ordered Ditropan XL 10 mg oral tablet, extended release 10, mg, 1, tablet, By Mouth, Daily, 0, 01/03/07 9:24:09, Print ANNE-MARIE Number, [id number], Constant Indicator Start Date: 01/03/07 Status: Ordered DOK 100 mg oral tablet See Instructions, TAKE 1 TABLET BY MOUTH TWICE DAILY (AM AND PM) (STOOL SOFTENER EQUIVALENT), # 60 tablet, 5 Refills, Maintenance, 02/02/23 15:38:00 EDT, [facility], 175.2, cm, 02/01/23 15:11:00EDT, Height Start [...] Instructions Replace Required Details, Route toPharmacy Electronically, [facility], 175.2, cm... Start Date: 04/09/20 Status: Ordered fit to pt fit to pt, See Instructions, # 1 units, Refills 0, Tot. Refills 0, Maintenance, rigid cervical collar. Fit to pt., 06/21/18 15:59:47 EDT, Compound Start Date: 06/21/18 Status: Ordered Flomax 0.4 mg oral capsule 0.4, mg, 1, capsule, By Mouth, Daily, 0, 0, 01/03/07 9:24:42, Print ANNE-MARIE Number, [id number], Constant Indicator Start Date: 01/03/07 Status: Ordered hydrochlorothiazide 25 mg oral tablet 1, tablet, By Mouth, Daily in AM, FOR HTN/MONITOR BP/IF SYSTOLIC MORE THAN 160, DIASTOLIC MORE [id number], SYSTOLIC LESS THAN 90, OR DIASTOLIC LESS THAN 50 CALLMD., # 90 tablet, Refills 1, Tot. Refills1, Maintenance, 03/15/23 14:21:00 EDT, Route to Pha... Start Date: 03/15/23 Status: Ordered HYDROCORTISONE 1% [...] Gm, 11 Refills, Maintenance, 12/11/19 11:11:00 EST, [facility], APPLY TO EXTERNAL HEMMORRHOIDS TWICE DAILY PRN PER DR FREEMAN, 175.2, cm, 10/12/19 8:18:00 EST, Height,... Start Date: 12/11/19 Status: Ordered ibuprofen 400 mg oral tablet 400 mg, 1, tablet, By Mouth, 3 times a day, PRN, # 30 tablet, Refills 1, Tot. Refills 1, Maintenance, as needed for pain, 12/25/18 11:23:03 EST, Route to Pharmacy Electronically, [id number], [facility] Start Date: 12/25/18 Status: Ordered lactulose 10 gm/15 ml oral syrup = 20 Gm, By Mouth, Daily at bedtime, # 946 mL, 11 Refills, Maintenance, 09/01/22 7:18:00 EDT, [facility], 31, 20 Gm By Mouth Daily [...] 03/08/23 11:54:00 EDT, Route to Pharmacy Electronically, [facility], Partial fill u... Start Date: 03/08/23 Stop Date: 03/08/24 Status: Ordered loratadine 10 mg oral tablet 1, tablet, By Mouth, Daily, PRN, # 30 tablet, Refills 11, NEEDED FOR ALLERGY SYMPTOMS WATERY, ITCHY RED EYES, SNEEZING FOR ALLERGIC RHINITIS, Route to Pharmacy Electronically, [facility], 175.2, cm, 07/20/21 10:29:00 EDT, Height Start Date: 11/10/21 Status: Ordered Milk of Magnesia 8% oral suspension 30 mL, By Mouth, Daily at bedtime, FOR CONSTIPATION [id number]=8501 MG., # 900 mL, 5 Refills, Maintenance, 04/04/23 21:00:00 EDT, [facility], 175.2, cm, 02/01/23 15:11:00 EDT, Height Start Date: 04/04/23 Status: Ordered omeprazole 40 mg oral enteric coated capsule 1 capsule, By Mouth, Daily in AM, # 30 capsule, 5 Refills, Maintenance, 02/01/23 7:37:00 EDT, [facility], 175.2, cm, 07/27/22 11:37:00 EDT, Height Start Date: 02/01/23 Status: Ordered polyethylene glycol 3350 oral powder for reconstitution See Instructions, MIX 17GM WITH 8 OUNCES OF WATER OR JUICE DAILY AT 5PM FOR CONSTIPATION (POLYETHYLENE GLYCOL), # 510 Gm, 11 Refills, Physician Stop 10/07/23 11:17:00 EST, 10/07/22 11:17:00 EST, [facility], 30, MIX 17GM WITH 8 OUNCES OF WATER OR... Start Date: 10/07/22 Stop Date: 10/07/23 Status: Ordered pravastatin 40 mg oral tablet See Instructions, TAKE 1 TABLET BY MOUTH DAILY IN THE PM FOR HYPERLIPIDEMIA, # 30 tablet, 5 Refills, Maintenance, 07/20/23 0:31:00 EDT, [facility], 175.2, cm, 05/13/23 11:02:00 EDT, Height Start Date: 05/19/23 Status: Ordered Profola oral tablet 1 tablet, By Mouth, Daily, # 30 tablet, 11 Refills, Maintenance, 06/24/23 10:40:00 EDT, [facility], Partial fill upon patient request if the prescription is for a schedule II opioid drug., 1 tablet By Mouth Daily,x30 days, 175.2, cm, 05/13/23 11:... Start Date: 06/24/23 Stop Date: 06/18/24 Status: Ordered Shingrix intramuscular injection 0.5 mL, [...] 1 Refills, Maintenance, 05/11/22 14:45:00 EDT, Cream, [facility], Partial fill upon patient request if [...] tablet, 5 Refills, Maintenance, 04/04/23 21:00:00 EDT, [facility], 30, TAKE 1 TABLET BY MOUTH [...] Confirmed Active UI (urinary incontinence) Confirmed Active 89771; repeat 2020 83102; repeat 2017 3egd 2011 barretts, repeat 2014 4egd 2010 positive barretts repeat 2011 5C2 6colonoscopy 2006 nl repeat 2016 7repeat 2024 44884 Social History Social History Type Response Smoking Status Never smoker entered on: 06/25/16 Sex Patient Care team information Care Team Personnel Name: Hannah Roque RN Position: [facility] RN Member Role: Primary Care Nurse Name: Reggie Godinez RN Position: [facility] RN Member Role: Primary Care Nurse Name: Christiane Cedillo RN Position: S RN Member Role: Primary Care Nurse Name: Brandon Freeman MD Position: [facility] Physician - Primary Care Member Role: PCP Address: Address: [address] [place] [phone]- [place] Name: Janeen Hoskins RN Position: S RN Member Role: Primary Care Nurse Name: Cydney Mckinney RN Position: S RN Member Role: Primary Care Nurse Name: Frantz Mi III, RN Position: S RN Member Role: Primary Care Nurse Name: Cate Martel NP Position: Reference Physician Member Role: Primary Care Nurse Address: Address: [address] [place] [phone]- [place] Name: Fay Morton RN Position: S RN Member Role: Primary Care Nurse Name: Massiel Lu RN Position: S RN Member Role: Primary Care Nurse Name: Lurdes Mujica RN Position: [facility] RN Member Role: Primary Care Nurse Name: Brandie Horvath RN Position: [facility] Him Clerk Member Role: Primary Care Nurse Name: Claribel Howe RN Position: [facility] RN Member Role: Primary Care Nurse Care Team Related Persons Name: JOHAN PERKINS Name: DAWOOD DE LOS SANTOS Address: home [address] [place] [id number] Name: JENNIFER JUAREZ Address: home [address] [place] [id number]
--- OUTSIDE RECORDS SUMMARY | 2024-02-26 13:13 | XMS_ITS | Continuity of Care Document ---
Author Organization [facility] Chace lt Address [address] [place] [address]- Care Team Providers Care Quality Nurse Name Role Phone La MADISON, Brandon Chamorro Primary Care Physician [facility] Date[facility]s): 05[facility]23 - 06/22/23 [facility] [place] Adult [address] [place] [address]- Allergies, Adverse Reactions, Alerts Substance Reaction Severity Status azithromycin Active macrolide antibiotics Active Dust Active ketolides Active Immunizations Given and Recorded Vaccine Date Status Refusal Reason [id number] 12y+ bivalent booster vax 07/22/22 Recorded tetanus-diphtheria [...] clinic 5Admin Note: FLU CLINIC 6Admin Note: [facility] VIS [id number] given 7Admin Note: given in clinic Medications acetaminophen 325 mg oral tablet 2, tablet, By Mouth, Every 6 hours, PRN, [id number]., # 60 tablet, Refills 0, Maintenance, NEEDED FOR FEVER>100.5 OR PAIN SHOWN BY FACIAL GRIMACE NOTIFY MD IF USED >, 11/12/22 9:30:00 EST, Route to Pharmacy Electronically, [facility], 175.2, c... Start Date: 11/12/22 Stop Date: 11/15/22 Status: Ordered bacitracin zinc 500 units/g topical ointment See Instructions, APPLY SMALL AMOUNT TOPICALLY TO SUPERFICIAL WOUNDS 4 TIMES A DAY NEEDED AN ANTIBACTERIAL / CALL MD IF USING FOR MORE THAN 7 DAYS, # 28 Gm, 11 Refills, Maintenance, 11/09/22 15:57:00 EST, [facility], 7, APPLY SMALL AMOUNT T... Start [...] supp, 11 Refills, Maintenance, 12/16/22 13:35:00 EST, [facility], 175.2, cm, 07/27/22 11:37:00 EDT, Height Start Date: 12/16/22 Status: Ordered chlorhexidine topical 0.12% liquid 15 mL = 0.018 Gm, By Mouth, 2 times a day, RINSE 1/2 OZ FOR 30 SECONDS AFTER BREAKFAST & BEFOREBEDTIME/EXPECTORATE, # 480 mL, 3 Refills, Maintenance, 10/26/18 9:26:16 EST, Liquid, PER DR FREEAMN, 15mL By Mouth 2 times a day,Instr:RINSE 1/2 OZ FOR 30 SEC... Start Date: 10/26/18 Status: Ordered Culturelle Health and Wellness oral capsule See Instructions, TAKE 1 CAPSULE BY MOUTH DAILY IN AM FOR INTESTINAL HEALTH 1 CAP=15 BILLION CFU MAY OPEN CAPSULE, # 30 capsule, 11 Refills, Maintenance, 06/21/23 14:02:00 EDT, [facility], 30, TAKE 1 CAPSULE BY MOUTH [...] Stop 04/06/24 13:54:00 EDT, 04/05/23 13:54:00 EDT, [facility], 5, ONE... Start Date: 04/05/23 Stop Date: 04/06/24 Status: Ordered Ditropan XL 10 mg oral tablet, extended release 10, mg, 1, tablet, By Mouth, Daily, 0, 01/03/07 9:24:09, Print ANNE-MARIE Number, [id number], Constant Indicator Start Date: 01/03/07 Status: Ordered DOK 100 mg oral tablet See Instructions, TAKE 1 TABLET BY MOUTH TWICE DAILY (AM AND PM) (STOOL SOFTENER EQUIVALENT), # 60 tablet, 5 Refills, Maintenance, 02/02/23 15:38:00 EDT, [facility], 175.2, cm, 02/01/23 15:11:00EDT, Height Start [...] Instructions Replace Required Details, Route toPharmacy Electronically, [facility], 175.2, cm... Start Date: 04/09/20 Status: Ordered fit to pt fit to pt, See Instructions, # 1 units, Refills 0, Tot. Refills 0, Maintenance, rigid cervical collar. Fit to pt., 06/21/18 15:59:47 EDT, Compound Start Date: 06/21/18 Status: Ordered Flomax 0.4 mg oral capsule 0.4, mg, 1, capsule, By Mouth, Daily, 0, 0, 01/03/07 9:24:42, Print ANNE-MARIE Number, [id number], Constant Indicator Start Date: 01/03/07 Status: Ordered hydrochlorothiazide 25 mg oral tablet 1, tablet, By Mouth, Daily in AM, FOR HTN/MONITOR BP/IF SYSTOLIC MORE THAN 160, DIASTOLIC MORE [id number], SYSTOLIC LESS THAN 90, OR DIASTOLIC LESS [...] Gm, 11 Refills, Maintenance, 12/11/19 11:11:00 EST, [facility], APPLY TO EXTERNAL HEMMORRHOIDS TWICE DAILY PRN PER DR FREEMAN, 175.2, cm, 10/12/19 8:18:00 EST, Height,... Start Date: 12/11/19 Status: Ordered ibuprofen 400 mg oral tablet 400 mg, 1, tablet, By Mouth, 3 times a day, PRN, # 30 tablet, Refills 1, Tot. Refills 1, Maintenance, as needed for pain, 12/25/18 11:23:03 EST, Route to Pharmacy Electronically, [id number], [facility] Start Date: 12/25/18 Status: Ordered lactulose 10 gm/15 ml oral syrup = 20 Gm, By Mouth, Daily at bedtime, # 946 mL, 11 Refills, Maintenance, 09/01/22 7:18:00 EDT, [facility], 31, 20 Gm By Mouth Daily [...] 03/08/23 11:54:00 EDT, Route to Pharmacy Electronically, [facility], Partial fill u... Start Date: 03/08/23 Stop Date: 03/08/24 Status: Ordered loratadine 10 mg oral tablet 1, tablet, By Mouth, Daily, PRN, # 30 tablet, Refills 11, NEEDED FOR ALLERGY SYMPTOMS WATERY, ITCHY RED EYES, SNEEZING FOR ALLERGIC RHINITIS, Route to Pharmacy Electronically, [facility], 175.2, cm, 07/20/21 10:29:00 EDT, Height Start Date: 11/10/21 Status: Ordered Milk of Magnesia 8% oral suspension 30 mL, By Mouth, Daily at bedtime, FOR CONSTIPATION NMVV=7568 MG., # 900 mL, 5 Refills, Maintenance, 04/04/23 21:00:00 EDT, [facility], 175.2, cm, 02/01/23 15:11:00 EDT, Height Start Date: 04/04/23 Status: Ordered omeprazole 40 mg oral enteric coated capsule 1 capsule, By Mouth, Daily in AM, # 30 capsule, 5 Refills, Maintenance, 02/01/23 7:37:00 EDT, [facility], 175.2, cm, 07/27/22 11:37:00 EDT, Height Start Date: 02/01/23 Status: Ordered polyethylene glycol 3350 oral powder for reconstitution See Instructions, MIX 17GM WITH 8 OUNCES OF WATER OR JUICE DAILY AT 5PM FOR CONSTIPATION (POLYETHYLENE GLYCOL), # 510 Gm, 11 Refills, Physician Stop 10/07/23 11:17:00 EST, 10/07/22 11:17:00 EST, [facility], 30, MIX 17GM WITH 8 OUNCES OF WATER OR... Start Date: 10/07/22 Stop Date: 10/07/23 Status: Ordered pravastatin 40 mg oral tablet See Instructions, TAKE 1 TABLET BY MOUTH DAILY IN THE PM FOR HYPERLIPIDEMIA, # 30 tablet, 5 Refills, Maintenance, 05/19/23 0:31:00 EDT, [facility], 175.2, cm, 05/13/23 11:02:00 EDT, Height [...] 1 Refills, Maintenance, 05/11/22 14:45:00 EDT, Cream, [facility], Partial fill upon patient request if [...] tablet, 5 Refills, Maintenance, 04/04/23 21:00:00 EDT, [facility], 30, TAKE 1 TABLET BY MOUTH [...] Confirmed Active UI (urinary incontinence) Confirmed Active 73751; repeat 2020 61694; repeat 2017 3egd 2012 barretts, repeat 2014 4egd 2010 positive barretts repeat 2011 5C2 6colonoscopy 2007 nl repeat 2016 7repeat 2024 13065 Social History Social History Type Response Smoking Status Never smoker entered on: 06/25/16 Sex Patient Care team information Care Team Personnel Name: Hannah Roque RN Position: [facility] RN Member Role: Primary Care Nurse Name: Reggie Godinez RN Position: [facility] RN Member Role: Primary Care Nurse Name: Christiane Cedillo RN Position: [facility] RN Member Role: Primary Care Nurse Name: Brandon Freeman MD Position: [facility] Physician - Primary Care Member Role: PCP Address: Address: [address] [place] [phone]- Name: Janeen Hoskins RN Position: [facility] RN Member Role: Primary Care Nurse Name: Cydney Mckinney RN Position: [facility] RN Member Role: Primary Care Nurse Name: Frantz Mi III, RN Position: [facility] RN Member Role: Primary Care Nurse Name: Cate Martel NP Position: Reference Physician Member Role: Primary Care Nurse Address: Address: [address] [place] [phone]- Name: Fay Morton RN Position: [facility] RN Member Role: Primary Care Nurse Name: Massiel Lu RN Position: [facility] RN Member Role: Primary Care Nurse Name: Lurdes Mujica RN Position: [facility] RN Member Role: Primary Care Nurse Name: Brandie Horvath RN Position: [facility] Patient Information Coordinator Member Role: Primary Care Nurse Name: Claribel Howe RN Position: [facility] RN Member Role: Primary Care Nurse Care Team Related Persons Name: JOHAN PERKINS Name: DAWOOD DE LOS SANTOS Address: [address] [address] Name: JENNIFER JUAREZ Address: home [address] [place] [phone]
--- OUTSIDE RECORDS SUMMARY | 2024-02-26 13:13 | XMS_ITS | Continuity of Care Document ---
Author Organization [facility], [place], operated [facility] lt Address [address] [place] [address]- Care Team Providers Care Store Consultant Name Role Phone La MADISON, Brandon Chamorro Primary Care Physician [facility]): 07/12/23 - 08/11/23 [facility] [place] Adult [address] [place] [address]- Allergies, Adverse Reactions, Alerts Substance Reaction Severity Status azithromycin Active macrolide antibiotics Active ketolides Active Dust Active Immunizations Given and Recorded Vaccine Date Status Refusal Reason pneumococcal 20-valent conjugate vaccine 08/02/23 Given Influenza Virus Vaccine (oldterm) 07/25/23 Recorde d Influenza Virus Vaccine (oldterm) 08/31/20 Recorde d Influenza Virus Vaccine (oldterm) 1 07/18/09 Given Influenza Virus Vaccine (oldterm) 2 09/02/07 Given [id number] 12y+ bivalent booster vax 07/22/22 Recorded tetanus-diphtheria [...] virus vaccine, inactivated 4 07/20/12 Gi stacie SARS-CoV-2 (COVID-19) mRNA BNT-162b2 vac 08/17/21 Recorded SARS-CoV-2 (COVID-19) mRNA BNT-162b2 vac 12/05/20 Recorded SARS-CoV-2 (COVID-19) mRNA BNT-162b2 vac 11/10/20 Recorded zoster vaccine, inactivated 12/29/18 Recorded zoster vaccine, inactivated 09/30/18 Recorded pneumococcal 23-valent vaccine 06/28/18 Given pneumococcal 23-valent vaccine 04/08/95 Given pneumococcal 13-valent vaccine 06/24/15 Given Zostavax (oldterm) 05/13/12 Given Tet/diphth/pertussis, acel (oldterm) 09/06/11 Give n Fluarix (oldterm) 5 08/05/11 Given FluLaval (oldterm) 6 08/05/10 Given Influenza Inactive (IM) (oldterm) 7 08/16/08 Given 1Admin Note: given by lisy short by tyler 2Admin Note: given in clinic 3Admin Note: FLU CLINIC 4Admin Note: VIS GIVEN 5Admin Note: FLU CLINIC 6Admin Note: [facility] [place] [id number] given 7Admin Note: given in clinic Medications acetaminophen 325 mg oral tablet 2, tablet, By Mouth, Every 6 hours, PRN, [id number]., # 60 tablet, Refills 0, Maintenance, NEEDED FOR FEVER>100.5 OR PAIN SHOWN BY FACIAL GRIMACE NOTIFY MD IF USED >, 11/12/22 9:30:00 EST, Route to Pharmacy Electronically, [facility], 175.2, c... Start Date: 11/12/22 Stop Date: 11/15/22 Status: Ordered bacitracin zinc 500 units/g topical ointment See Instructions, APPLY SMALL AMOUNT TOPICALLY TO SUPERFICIAL WOUNDS 4 TIMES A DAY NEEDED AN ANTIBACTERIAL / CALL MD IF USING FOR MORE THAN 7 DAYS, # 28 Gm, 11 Refills, Maintenance, 11/09/22 15:57:00 EST, [facility], 7, APPLY SMALL AMOUNT T... Start [...] supp, 11 Refills, Maintenance, 12/16/22 13:35:00 EST, [facility], 175.2, cm, 07/27/22 11:37:00 EDT, Height [...] capsule, 11 Refills, Maintenance, 06/21/23 14:02:00 EDT, [facility], 30, TAKE 1 CAPSULE BY MOUTH [...] Stop 04/06/24 13:54:00 EDT, 04/05/23 13:54:00 EDT, [facility], 5, ONE... Start Date: 04/05/23 Stop Date: 04/06/24 Status: Ordered Ditropan XL 10 mg oral tablet, extended release 10, mg, 1, tablet, By Mouth, Daily, 0, 01/03/07 9:24:09, Print ANNE-MARIE Number, [id number], Constant Indicator Start Date: 01/03/07 Status: Ordered DOK 100 mg oral tablet See Instructions, TAKE 1 TABLET BY MOUTH TWICE DAILY (AM AND PM) (STOOL SOFTENER EQUIVALENT), # 60 tablet, 5 Refills, Maintenance, 02/02/23 15:38:00 EDT, [facility], 175.2, cm, 02/01/23 15:11:00EDT, Height Start Date: 02/02/23 Status: Ordered DOK 100 MG TAB 100 Tablet DOK 100 MG TAB 100 Tablet, See Instructions, # 60 tablet, 5 Refills, Maintenance, TAKE 1 TABLET BY MOUTH TWICE DAILY (AM AND PM) (STOOL SOFTENER EQUIVALENT), 08/03/23 13:21:00 EDT, 175.2, cm, 08/02/23 10:30:00 EDT, Height Start Date: 08/03/23 Status: Ordered Eucerin cream Eucerin cream, See [...] Instructions Replace Required Details, Route toPharmacy Electronically, [facility], 175.2, cm... Start Date: 04/09/20 Status: Ordered fit to pt fit to pt, See Instructions, # 1 units, Refills 0, Tot. Refills 0, Maintenance, rigid cervical collar. Fit to pt., 06/21/18 15:59:47 EDT, Compound Start Date: 06/21/18 Status: Ordered Flomax 0.4 mg oral capsule 0.4, mg, 1, capsule, By Mouth, Daily, 0, 0, 01/03/07 9:24:42, Print ANNE-MARIE Number, [id number], Constant Indicator Start Date: 01/03/07 Status: Ordered guaiFENesin 100 mg/5 mL oral liquid 10 mL, By Mouth, 4 times a day, PRN NEEDED FOR COUGH/NOTIFY MD IF NO RELIEF AFTER 48 HRS / DOSE =, GUAIFENESIN (TUSSIN MUCUS CONGEST 100MG/5ML) IC ROBAFEN., # 240 mL, 4 Refills, Maintenance, 07/12/23 14:12:00 EDT, [facility], 175.2, cm, ... Start Date: 07/12/23 Status: Ordered hydrochlorothiazide 25 mg oral tablet 1, tablet, By Mouth, Daily in AM, FOR HTN/MONITOR BP/IF SYSTOLIC MORE THAN 160, DIASTOLIC MORE [id number], SYSTOLIC LESS THAN 90, OR DIASTOLIC LESS THAN 50 CALLMD., # 90 tablet, Refills 1, Tot. Refills1, Maintenance, 03/15/23 14:21:00 EDT, [facility] to [facility]... Start Date: 03/15/23 Status: Ordered HYDROCORTISONE 1% [...] 12/25/18 11:23:03 EST, Route to Pharmacy Electronically, [id number], [facility] Start Date: 12/25/18 Status: Ordered lactulose 10 gm/15 ml oral syrup = 20 Gm, By Mouth, Daily at bedtime, # 946 mL, 11 Refills, Maintenance, 09/01/22 7:18:00 EDT, [facility], 31, 20 Gm By Mouth Daily [...] 03/08/23 11:54:00 EDT, Route to Pharmacy Electronically, [facility], Partial fill u... Start Date: 03/08/23 Stop Date: 03/08/24 Status: Ordered loratadine 10 mg oral tablet 1, tablet, By Mouth, Daily, PRN, # 30 tablet, Refills 11, NEEDED FOR ALLERGY SYMPTOMS WATERY, ITCHY RED EYES, SNEEZING FOR ALLERGIC RHINITIS, Route to Pharmacy Electronically, [facility], 175.2, cm, 07/20/21 10:29:00 EDT, Height Start Date: 11/10/21 Status: Ordered Milk of Magnesia 8% oral suspension 30 mL, By Mouth, Daily at bedtime, FOR CONSTIPATION WMXS=2315 MG., # 900 mL, 5 Refills, Maintenance, 04/04/23 21:00:00 EDT, [facility], 175.2, cm, 02/01/23 15:11:00 EDT, Height Start Date: 04/04/23 Status: Ordered omeprazole 40 mg oral enteric coated capsule See Instructions, TAKE 1 CAPSULE BY MOUTH DAILY FOR GERD IN AM MAY OPEN CAPSULE, # 30 capsule, 2 Refills, Maintenance, 07/25/23 20:17:00 EDT, [facility], 175.2, cm, 05/13/23 11:02:00 EDT, Height Start Date: 07/25/23 Status: Ordered polyethylene glycol 3350 oral powder for reconstitution See Instructions, MIX 17GM WITH 8 OUNCES OF WATER OR JUICE DAILY AT 5PM FOR CONSTIPATION (POLYETHYLENE GLYCOL), # 510 Gm, 11 Refills, Physician Stop 10/07/23 11:17:00 EST, 10/07/22 11:17:00 EST, [facility], 30, MIX 17GM WITH 8 OUNCES OF WATER OR... Start Date: 10/07/22 Stop Date: 10/07/23 Status: Ordered pravastatin 40 mg oral tablet See Instructions, TAKE 1 TABLET BY MOUTH DAILY IN THE PM FOR HYPERLIPIDEMIA, # 30 tablet, 5 Refills, Maintenance, 05/19/23 0:31:00 EDT, [facility], 175.2, cm, 05/13/23 11:02:00 EDT, Height Start Date: 05/19/23 Status: Ordered Profola oral tablet 1 tablet, By Mouth, Daily, # 30 tablet, 11 Refills, Maintenance, 06/24/23 10:40:00 EDT, [facility], Partial fill upon patient request if [...] 1 Refills, Maintenance, 05/11/22 14:45:00 EDT, Cream, [facility], Partial fill upon patient request if [...] tablet, 5 Refills, Maintenance, 04/04/23 21:00:00 EDT, [facility], 30, TAKE 1 TABLET BY MOUTH [...] Confirmed Active UI (urinary incontinence) Confirmed Active 11300; repeat 2020; repeat 2017 3egd 2011 barretts, repeat 2014 4egd 2009 positive barretts repeat 2011 5C2 6colonoscopy 2006 nl repeat 2016 7repeat 2024 56029 Social History Social History Type Response Smoking Status Never smoker entered on: 06/25/16 Sex Patient Care team information Care Team Personnel Name: Hannah oRque RN Position: [facility] RN Member Role: Primary Care Nurse Name: Herbert RNReggie Position: [facility] RN Member Role: Primary Care Nurse Name: Christiane Cedillo RN Position: [facility] RN Member Role: Primary Care Nurse Name: Brandon Freeman MD Position: [facility] Physician - Primary Care Member Role: PCP Address: Address: [address] [place] [place] [phone]- [place] Name: Janeen Hoskins RN Position: [facility] RN Member Role: Primary Care Nurse Name: Frantz Mi III, RN Position: [facility] RN Member Role: Primary Care Nurse Name: Tahmina CLOCK [employer] WATCH HANDS DIPPER, Cate Melgar Position: Reference Physician Member Role: Primary Care Nurse Address: Address: [address] [place] [phone]- [place] Name: Fay Morton RN Position: [facility] RN Member Role: Primary Care Nurse Name: Massiel Lu RN Position: [facility] RN Member Role: Primary Care Nurse Name: Lurdes Mujica RN Position: [facility] RN Member Role: Primary Care Nurse Name: Brandie Horvath RN Position: [facility] Development Administrator Member Role: Primary Care Nurse Name: Shyam RNArianaeeanthony Position: [facility] SN RN Member Role: Primary Care Nurse Care Team Related Persons Name: JOHAN PERKINS Name: DAWOOD DE LOS SANTOS Address: home [address] [place] [id number] Name: JENNIFER JUAREZ Address: home [address] [place] [address]
--- OUTSIDE RECORDS SUMMARY | 2024-02-26 13:13 | XMS_ITS | Continuity of Care Document ---
Author Organization [facility] Address [address] [place] [address]- Care Team Providers Care Health Counselor Name Role Phone La MADISON, Brandon Chamorro Primary Care Physician [facility]): [facility] - 11/26/23 [facility] [address] [place] [address]- Allergies, Adverse Reactions, Alerts Substance Reaction Severity Status azithromycin Active macrolide antibiotics Active ketolides Active Dust Active Immunizations Given and Recorded Vaccine Date Status Refusal Reason pneumococcal 20-valent conjugate vaccine 08/02/23 Given Influenza Virus Vaccine (oldterm) 07/25/23 Recorde d Influenza Virus Vaccine (oldterm) 08/31/20 Recorde d Influenza Virus Vaccine (oldterm) 1 07/18/09 Given Influenza Virus Vaccine (oldterm) 2 09/02/07 Given [id number] 12y+ bivalent booster vax 07/22/22 Recorded tetanus-diphtheria [...] GIVEN 5Admin Note: FLU CLINIC 6Admin Note: [facility] VIS [id number] given 7Admin Note: given in clinic Medications acetaminophen 325 mg oral tablet 2, tablet, By Mouth, Every 6 hours, PRN, [id number]., # 60 tablet, Refills 0, Maintenance, NEEDED FOR FEVER>100.5 OR PAIN SHOWN BY FACIAL GRIMACE NOTIFY MD IF USED >, 09/13/23 10:09:00 EST, Route to Pharmacy Electronically, [facility], 175.2,... Start Date: 09/13/23 Stop Date: 09/16/23 Status: Ordered bacitracin zinc 500 units/g topical ointment See Instructions, APPLY SMALL AMOUNT TOPICALLY TO SUPERFICIAL WOUNDS 4 TIMES A DAY NEEDED AN ANTIBACTERIAL / CALL MD IF USING FOR MORE THAN 7 DAYS, # 28 Gm, 11 Refills, Maintenance, 11/09/22 15:57:00 EST, [facility], 7, APPLY SMALL AMOUNT T... Start [...] supp, 11 Refills, Maintenance, 12/16/22 13:35:00 EST, [facility], 175.2, cm, 07/27/22 11:37:00 EDT, Height [...] capsule, 11 Refills, Maintenance, 06/21/23 14:02:00 EDT, [facility], 30, TAKE 1 CAPSULE BY MOUTH DAILY IN AM FOR INTESTINAL HE... Start Date: 06/21/23 Status: Ordered diazepam 10 mg oral tablet See Instructions, TAKE 1 TABLET BY MOUTH TWO HOURS PRIOR TO APPOINTMENT/PROCEDURE (EYE AND PODIATRYONLY) FOR ANXIETY, # 1 tablet, Refills 5, Tot. Refills 5, Maintenance, 11/22/23 10:33:00 EST, Instructions Replace Required Details, Route to Pharmacy... Start Date: 11/22/23 Status: Ordered Disposable Enema 7 g-19 g rectal enema See Instructions, ONE ENEMA PER RECTUM DAY 5 WITHOUT BOWEL MOVEMENT / IF NO RESULTS NOTIFY MD / FORCONSTIPATION / IC FLEET ENEMA 7 GM - 19 GM, # 133 mL, 11 Refills, Physician Stop 04/06/24 13:54:00 EDT, 04/05/23 13:54:00 EDT, [facility], 5, ONE... Start Date: 04/05/23 Stop Date: 04/06/24 Status: Ordered Ditropan XL 10 mg oral tablet, extended release 10, mg, 1, tablet, By Mouth, Daily, 0, 01/03/07 9:24:09, Print ANNE-MARIE Number, [id number], Constant Indicator Start Date: 01/03/07 Status: Ordered DOK 100 mg oral tablet See Instructions, TAKE 1 TABLET BY MOUTH TWICE DAILY (AM AND PM) (STOOL SOFTENER EQUIVALENT), # 60 tablet, 5 Refills, Maintenance, 02/02/23 15:38:00 EDT, [facility], 175.2, cm, 02/01/23 15:11:00EDT, Height Start [...] Instructions Replace Required Details, Route toPharmacy Electronically, [facility], 175.2, cm... Start Date: 04/09/20 Status: Ordered fit to pt fit to pt, See Instructions, # 1 units, Refills 0, Tot. Refills 0, Maintenance, rigid cervical collar. Fit to pt., 06/21/18 15:59:47 EDT, Compound Start Date: 06/21/18 Status: Ordered Flomax 0.4 mg oral capsule 0.4, mg, 1, capsule, By Mouth, Daily, 0, 0, 03/06/07 9:24:42, Print ANNE-MARIE Number, [id number], Constant Indicator Start Date: 01/03/07 Status: Ordered guaiFENesin 100 mg/5 mL oral liquid 10 mL, By Mouth, 4 times a day, PRN NEEDED FOR COUGH/NOTIFY MD IF NO RELIEF AFTER 48 HRS / DOSE =, GUAIFENESIN (TUSSIN MUCUS CONGEST 100MG/5ML) IC ROBAFEN., # 240 mL, 4 Refills, Maintenance, 07/12/23 14:12:00 EDT, [facility], 175.2, cm, ... Start Date: 07/12/23 Status: Ordered hydrochlorothiazide 25 mg oral tablet See Instructions, TAKE 1 TAB BY MOUTH DAILY IN AM FOR HTN/MONITOR BP/IF SYSTOLIC MORE THAN 160, DIASTOLIC MORE THAN 100, SYSTOLIC LESS THAN 90, OR DIASTOLIC LESS THAN 50 CALLMD, # 30 tablet, Refills 5, Maintenance, 09/08/23 20:26:00 EST, Instructions... Start Date: 09/08/23 Status: Ordered HYDROCORTISONE 1% CREAM 1 Cream HYDROCORTISONE 1% CREAM 1 Cream, See Instructions, # 56.8 Gm, 11 Refills, APPLY A LIGHT APPLICATIONTO EXTERNAL HEMORRHOIDS TWICE DAILY NEEDED, BLEEDING SWELLING, ITCHING / NOTIFY MD IF NOT RESOLVED X 3 DAYS, 175.2, cm, 07/20/21 10:29:00 EDT, Height Start Date: 11/02/21 Status: Ordered HYDROCORTISONE 1% CREAM 1 Cream HYDROCORTISONE 1% CREAM 1 Cream, See Instructions, # 56.8 Gm, 11 Refills, Maintenance, APPLY A LIGHT APPLICATION TO EXTERNAL HEMORRHOIDS TWICE DAILY NEEDED FOR BLEEDING, SWELLING, ITCHING / NOTIFYMD IF NOT RESOLVED X 3 DAYS, 11/09/23 7:50:00 EST,... Start Date: 11/09/23 Status: Ordered hydrocortisone 1% topical cream See [...] 12/25/18 11:23:03 EST, Route to Pharmacy Electronically, [id number], [facility] Start Date: 12/25/18 Status: Ordered lactulose 10 gm/15 ml oral syrup = 20 Gm, By Mouth, Daily at bedtime, GIVE WITH., # 946 mL, 11 Refills, Maintenance, 09/27/23 9:40:00 EST, [facility], 31, TWO TABLESPOONFULS BY MOUTH DAILY AT BEDTIME FOR CONSTIPATION / GIVE WITH LIQUIDS JUICE/WATER / 2 TBSP = 30 ML DOSE = 20 GRA... Start Date: 09/27/23 Status: Ordered lisinopril 20 mg oral tablet See Instructions, TAKE 1 TABLET BY MOUTH DAILY IN THE AM FOR HTN / CALL MD IF SBP GREATER THAN 160 OR DBP GREATER THAN 100 OR SBP LESS THAN 90 OR DBP LESS THAN 50, # 30 tablet, Refills 5, Maintenance, 10/27/23 20:14:00 EST, Instructions Replace Requir... Start Date: 10/27/23 Status: Ordered loperamide 2 mg oral capsule 2 mg, 1, capsule, By Mouth, Every 4 hours, FOR DIARRHEA / CALL MD IF USING MORE THAN 48 HRS, # 60 capsule, Refills 2, Tot. Refills 2, Acute 03/08/24 11:09:00 EDT, 03/08/23 11:54:00 EDT, Route to Pharmacy Electronically, [facility], Partial fill u... Start Date: 03/08/23 Stop Date: 03/08/24 Status: Ordered loratadine 10 mg oral tablet 1, tablet, By Mouth, Daily, PRN, # 30 tablet, Refills 11, Maintenance, NEEDED FOR ALLERGY SYMPTOMS WATERY, ITCHY RED EYES, SNEEZING FOR ALLERGIC RHINITIS, 08/30/23 16:24:00 EDT, Route to Pharmacy Electronically, [facility], 175.2, cm, 08/02/23... Start Date: 08/30/23 Status: Ordered Milk of Magnesia 8% oral suspension 30 mL, By Mouth, Daily at bedtime, FOR CONSTIPATION KEGB=4697 MG., # 900 mL, 5 Refills, Maintenance, 10/05/23 12:52:00 EST, [facility], 175.2, cm, 08/02/23 10:30:00 EDT, Height Start Date: 10/05/23 Status: Ordered omeprazole 40 mg oral enteric coated capsule See Instructions, TAKE 1 CAPSULE BY MOUTH DAILY FOR GERD IN AM MAY OPEN CAPSULE, # 30 capsule, 5 Refills, Maintenance, 10/26/23 8:21:00 EST, [facility], 175.2, cm, 08/02/23 10:30:00 EDT, Height Start Date: 10/26/23 Status: Ordered polyethylene glycol 3350 oral powder for reconstitution See Instructions, MIX 17GM WITH 8 OUNCES OF WATER OR JUICE DAILY AND TAKE BY MOUTH AT 5PM FOR CONSTIPATION, # 510 Gm, 5 Refills, Maintenance, 10/26/23 9:47:00 EST, [facility], 30, MIX 17GM WITH 8 OUNCES OF WATER OR JUICE DAILY AND TAKE BY MOUTH A... Start Date: 10/26/23 Status: Ordered pravastatin 40 mg oral tablet 1 tablet, By Mouth, Daily, IN THE PM FOR HYPERLIPIDEMIA., # 30 tablet, 5 Refills, Maintenance, 11/09/23 7:50:00 EST, [facility], 175.2, cm, 08/02/23 10:30:00 EDT, Height Start Date: 11/09/23 Status: Ordered Profola oral tablet 1 tablet, By Mouth, Daily, # 30 tablet, 11 Refills, Maintenance, 06/24/23 10:40:00 EDT, [facility], Partial fill upon patient request if [...] 1 Refills, Maintenance, 05/11/22 14:45:00 EDT, Cream, [facility], Partial fill upon patient request if [...] tablet, 5 Refills, Maintenance, 04/04/23 21:00:00 EDT, [facility], 30, TAKE 1 TABLET BY MOUTH [...] Confirmed Active UI (urinary incontinence) Confirmed Active 72358; repeat 202015; repeat 2017 3egd 2011 barretts, repeat 2014 4egd 2010 positive barretts repeat 2012 5C2 6colonoscopy 2007 nl repeat 2017 7repeat 202 30350 Social History Social History Type Response Smoking Status Never smoker entered on: 06/25/16 Sex Patient Care team information Care Team Personnel Name: Hannah Roque RN Position: [facility] RN Member Role: Primary Care Nurse Name: Reggie Godinez RN Position: [facility] RN Member Role: Primary Care Nurse Name: Christiane Cedillo RN Position: [facility] RN Member Role: Primary Care Nurse Name: Brandon Freeman MD Position: [facility] Physician - Primary Care Member Role: PCP Address: Address: [address] [place] [address]- [place] Name: Janeen Hoskins RN Position: [facility] RN Member Role: Primary Care Nurse Name: Frantz Mi III, RN Position: [facility] RN Member Role: Primary Care Nurse Name: Tahmina LUZ, Cate Melgar Position: Reference Physician Member Role: Primary Care Nurse Address: Address: [address] [place] [phone]- Name: Massiel Lu RN Position: [facility] RN Member Role: Primary Care Nurse Name: Lurdes Mujica RN Position: [facility] RN Member Role: Primary Care Nurse Name: Brandie Horvath RN Position: [facility] Sales Specialist Member Role: Primary Care Nurse Name: Claribel Howe RN Position: [facility] RN Member Role: Primary Care Nurse Care Team Related Persons Name: JOHAN PERKINS Name: DAWOOD DE LOS SANTOS Address: home [address] [place] [id number] Name: JENNIFER JUAREZ Address: home [address] [place] [address]
--- OUTSIDE RECORDS SUMMARY | 2024-02-26 13:13 | XMS_ITS | Continuity of Care Document ---
Author Organization [facility] Chace lt Address [address] [place] [address]- Care Team Providers Care Shellfish Bed Worker Name Role Phone La MADISON, Brandon Chamorro Primary Care Physician [facility]23 - 06/23/23 [facility] Adult [address] [place] [address]- Allergies, Adverse Reactions, Alerts Substance Reaction Severity Status azithromycin Active macrolide antibiotics Active Dust Active ketolides Active Immunizations Given and Recorded Vaccine Date Status Refusal Reason [id number] 12y+ bivalent booster vax 07/22/22 Recorded tetanus-diphtheria [...] clinic 5Admin Note: [facility] 6Admin Note: [employer] [facility] VIS [id number] given 7Admin Note: given in clinic Medications acetaminophen 325 mg oral tablet 2, tablet, By Mouth, Every 6 hours, PRN, [id number]., # 60 tablet, Refills 0, Maintenance, NEEDED FOR FEVER>100.5 OR PAIN SHOWN BY FACIAL GRIMACE NOTIFY MD IF USED >, 11/12/22 9:30:00 EST, Route to Pharmacy Electronically, [facility], 175.2, c... Start Date: 11/12/22 Stop Date: 11/15/22 Status: Ordered bacitracin zinc 500 units/g topical ointment See Instructions, APPLY SMALL AMOUNT TOPICALLY TO SUPERFICIAL WOUNDS 4 TIMES A DAY NEEDED AN ANTIBACTERIAL / CALL MD IF USING FOR MORE THAN 7 DAYS, # 28 Gm, 11 Refills, Maintenance, 11/09/22 15:57:00 EST, [facility], 7, APPLY SMALL AMOUNT T... Start [...] supp, 11 Refills, Maintenance, 12/16/22 13:35:00 EST, [facility], 175.2, cm, 07/27/22 11:37:00 EDT, Height [...] capsule, 11 Refills, Maintenance, 06/21/23 14:02:00 EDT, [facility], 30, TAKE 1 CAPSULE BY MOUTH [...] Stop 04/06/24 13:54:00 EDT, 04/05/23 13:54:00 EDT, [facility], 5, ONE... Start Date: 04/05/23 Stop Date: 04/06/24 Status: Ordered Ditropan XL 10 mg oral tablet, extended release 10, mg, 1, tablet, By Mouth, Daily, 0, 01/03/07 9:24:09, Print ANNE-MARIE Number, [id number], Constant Indicator Start Date: 01/03/07 Status: Ordered DOK 100 mg oral tablet See Instructions, TAKE 1 TABLET BY MOUTH TWICE DAILY (AM AND PM) (STOOL SOFTENER EQUIVALENT), # 60 tablet, 5 Refills, Maintenance, 02/02/23 15:38:00 EDT, [facility], 175.2, cm, 02/01/23 15:11:00EDT, Height Start [...] Instructions Replace Required Details, Route toPharmacy Electronically, [facility], 175.2, cm... Start Date: 04/09/20 Status: Ordered fit to pt fit to pt, See Instructions, # 1 units, Refills 0, Tot. Refills 0, Maintenance, rigid cervical collar. Fit to pt., 06/21/18 15:59:47 EDT, Compound Start Date: 06/21/18 Status: Ordered Flomax 0.4 mg oral capsule 0.4, mg, 1, capsule, By Mouth, Daily, 0, 0, 01/03/07 9:24:42, Print ANNE-MARIE Number, [id number], Constant Indicator Start Date: 01/03/07 Status: Ordered hydrochlorothiazide 25 mg oral tablet 1, tablet, By Mouth, Daily in AM, FOR HTN/MONITOR BP/IF SYSTOLIC MORE THAN 160, DIASTOLIC MORE [id number], SYSTOLIC LESS THAN 90, OR DIASTOLIC LESS [...] Gm, 11 Refills, Maintenance, 12/11/19 11:11:00 EST, [facility], APPLY TO EXTERNAL HEMMORRHOIDS TWICE DAILY PRN PER DR FREEMAN, 175.2, cm, 10/12/19 8:18:00 EST, Height,... Start Date: 12/11/19 Status: Ordered ibuprofen 400 mg oral tablet 400 mg, 1, tablet, By Mouth, 3 times a day, PRN, # 30 tablet, Refills 1, Tot. Refills 1, Maintenance, as needed for pain, 12/25/18 11:23:03 EST, Route to Pharmacy Electronically, [id number], [facility] Start Date: 12/25/18 Status: Ordered lactulose 10 gm/15 ml oral syrup = 20 Gm, By Mouth, Daily at bedtime, # 946 mL, 11 Refills, Maintenance, 09/01/22 7:18:00 EDT, [facility], 31, 20 Gm By Mouth Daily [...] 03/08/23 11:54:00 EDT, Route to Pharmacy Electronically, [facility], Partial fill u... Start Date: 03/08/23 Stop Date: 03/08/24 Status: Ordered loratadine 10 mg oral tablet 1, tablet, By Mouth, Daily, PRN, # 30 tablet, Refills 11, NEEDED FOR ALLERGY SYMPTOMS WATERY, ITCHY RED EYES, SNEEZING FOR ALLERGIC RHINITIS, Route to Pharmacy Electronically, [facility], 175.2, cm, 07/20/21 10:29:00 EDT, Height Start Date: 11/10/21 Status: Ordered Milk of Magnesia 8% oral suspension 30 mL, By Mouth, Daily at bedtime, FOR CONSTIPATION PBPA=7799 MG., # 900 mL, 5 Refills, Maintenance, 04/04/23 21:00:00 EDT, [facility], 175.2, cm, 02/01/23 15:11:00 EDT, Height Start Date: 04/04/23 Status: Ordered omeprazole 40 mg oral enteric coated capsule 1 capsule, By Mouth, Daily in AM, # 30 capsule, 5 Refills, Maintenance, 02/01/23 7:37:00 EDT, [facility], 175.2, cm, 07/27/22 11:37:00 EDT, Height Start Date: 02/01/23 Status: Ordered polyethylene glycol 3350 oral powder for reconstitution See Instructions, MIX 17GM WITH 8 OUNCES OF WATER OR JUICE DAILY AT 5PM FOR CONSTIPATION (POLYETHYLENE GLYCOL), # 510 Gm, 11 Refills, Physician Stop 10/07/23 11:17:00 EST, 10/07/22 11:17:00 EST, [facility], 30, MIX 17GM WITH 8 OUNCES OF WATER OR... Start Date: 10/07/22 Stop Date: 10/07/23 Status: Ordered pravastatin 40 mg oral tablet See Instructions, TAKE 1 TABLET BY MOUTH DAILY IN THE PM FOR HYPERLIPIDEMIA, # 30 tablet, 5 Refills, Maintenance, 05/19/23 0:31:00 EDT, [facility], 175.2, cm, 05/13/23 11:02:00 EDT, Height [...] 1 Refills, Maintenance, 05/11/22 14:45:00 EDT, Cream, [facility], Partial fill upon patient request if [...] tablet, 5 Refills, Maintenance, 04/04/23 21:00:00 EDT, [facility], 30, TAKE 1 TABLET BY MOUTH [...] Confirmed Active UI (urinary incontinence) Confirmed Active 56779; repeat 2020 85395; repeat 2017 3egd 2012 barretts, repeat 2014 4egd 2010 positive barretts repeat 2011 5C2 6colonoscopy 2007 nl repeat 2016 7repeat 2024 13186 Social History Social History Type Response Smoking [...] Primary Care Member Role: PCP Address: Address: [address] [place] [address]- Name: Janeen Hoskins RN Position: [facility] RN Member Role: Primary Care Nurse Name: Cydney Mckinney RN Position: [facility] RN Member Role: Primary Care Nurse Name: Frantz Mi III, RN Position: [facility] RN Member Role: Primary Care Nurse Name: Cate Martel NP Position: Reference Physician Member Role: Primary Care Nurse Address: Address: [address] [place] [id number]- Name: Fay Morton RN Position: [facility] RN Member Role: Primary Care Nurse Name: Massiel Lu RN Position: [facility] RN Member Role: Primary Care Nurse Name: Lurdes Mujica RN Position: [facility] RN Member Role: Primary Care Nurse Name: Brandie Horvath RN Position: [facility] Non Destructive Testing Scientist Member Role: Primary Care Nurse Name: Claribel Howe RN Position: [facility] RN Member Role: Primary Care Nurse Care Team Related Persons Name: JOHAN PERKINS Name: DAWOOD DE LOS SANTOS Address: [address] [address] Name: JENNIFER JUAREZ Address: home [address] [place] [id number]
--- OUTSIDE RECORDS SUMMARY | 2024-02-26 13:14 | XMS_ITS | Continuity of Care Document ---
Author Organization [facility] [place] Chace lt Address [address] [place] [address]- Care Team Providers Care Supervisor Wire [employer]ope Fabrication Name Role Phone La MADISON, Brandon Chamorro Primary Care Physician [facility]): [facility]23 - 10/27/23 [facility] [place] Adult [address] [place] [address]- Allergies, Adverse Reactions, Alerts Substance Reaction Severity Status azithromycin Active macrolide antibiotics Active Dust Active ketolides Active Immunizations Given and Recorded Vaccine Date Status Refusal Reason pneumococcal 20-valent conjugate vaccine 08/02/23 Given Influenza Virus Vaccine (oldterm) 07/25/23 Recorde d Influenza Virus Vaccine (oldterm) 08/31/20 Recorde d Influenza Virus Vaccine (oldterm) 1 07/18/09 Given Influenza Virus Vaccine (oldterm) 2 09/02/07 Given [id number] 12y+ bivalent booster vax 07/22/22 Recorded tetanus-diphtheria [...] GIVEN 5Admin Note: [facility] 6Admin Note: [employer] [facility] VIS [id number] given 7Admin Note: given in clinic Medications acetaminophen 325 mg oral tablet 2, tablet, By Mouth, Every 6 hours, PRN, XCOW=[id number]., # 60 tablet, Refills 0, Maintenance, NEEDED FOR FEVER>100.5 OR PAIN SHOWN BY FACIAL GRIMACE NOTIFY MD IF USED >, 09/13/23 10:09:00 EST, Route to Pharmacy Electronically, [facility], 175.2,... Start Date: 09/13/23 Stop Date: 09/16/23 Status: Ordered bacitracin zinc 500 units/g topical ointment See Instructions, APPLY SMALL AMOUNT TOPICALLY TO SUPERFICIAL WOUNDS 4 TIMES A DAY NEEDED AN ANTIBACTERIAL / CALL MD IF USING FOR MORE THAN 7 DAYS, # 28 Gm, 11 Refills, Maintenance, 11/09/22 15:57:00 EST, [facility], 7, APPLY SMALL AMOUNT T... Start [...] supp, 11 Refills, Maintenance, 12/16/22 13:35:00 EST, [facility], 175.2, cm, 07/27/22 11:37:00 EDT, Height [...] capsule, 11 Refills, Maintenance, 06/21/23 14:02:00 EDT, [facility], 30, TAKE 1 CAPSULE BY MOUTH [...] Stop 04/06/24 13:54:00 EDT, 04/05/23 13:54:00 EDT, [facility], 5, ONE... Start Date: 04/05/23 Stop Date: 04/06/24 Status: Ordered Ditropan XL 10 mg oral tablet, extended release 10, mg, 1, tablet, By Mouth, Daily, 0, 01/03/07 9:24:09, Print ANNE-MARIE Number, [id number], Constant Indicator Start Date: 01/03/07 Status: Ordered DOK 100 mg oral tablet See Instructions, TAKE 1 TABLET BY MOUTH TWICE DAILY (AM AND PM) (STOOL SOFTENER EQUIVALENT), # 60 tablet, 5 Refills, Maintenance, 02/02/23 15:38:00 EDT, [facility], 175.2, cm, 02/01/23 15:11:00EDT, Height Start [...] Replace Required Details, Route toPharmacy Electronically, [facility], 175.2, cm... Start Date: 04/09/20 Status: Ordered fit to pt fit to pt, See Instructions, # 1 units, Refills 0, Tot. Refills 0, Maintenance, rigid cervical collar. Fit to pt., 06/21/18 15:59:47 EDT, Compound Start Date: 06/21/18 Status: Ordered Flomax 0.4 mg oral capsule 0.4, mg, 1, capsule, By Mouth, Daily, 0, 0, 01/03/07 9:24:42, Print ANNE-MARIE Number, [id number], Constant Indicator Start Date: 01/03/07 Status: Ordered guaiFENesin 100 mg/5 mL oral liquid 10 mL, By Mouth, 4 times a day, PRN NEEDED FOR COUGH/NOTIFY MD IF NO RELIEF AFTER 48 HRS / DOSE =, GUAIFENESIN (TUSSIN MUCUS CONGEST 100MG/5ML) IC ROBAFEN., # 240 mL, 4 Refills, Maintenance, 07/12/23 14:12:00 EDT, [facility], 175.2, cm, ... Start Date: 07/12/23 [...] Gm, 11 Refills, Maintenance, 12/11/19 11:11:00 EST, [facility], APPLY TO EXTERNAL HEMMORRHOIDS TWICE DAILY PRN PER DR FREEMAN, 175.2, cm, 10/12/19 8:18:00 EST, Height,... Start Date: 12/11/19 Status: Ordered ibuprofen 400 mg oral tablet 400 mg, 1, tablet, By Mouth, 3 times a day, PRN, # 30 tablet, Refills 1, Tot. Refills 1, Maintenance, as needed for pain, 12/25/18 11:23:03 EST, Route to Pharmacy Electronically, [id number], [facility] Start Date: 12/25/18 Status: Ordered lactulose 10 gm/15 ml oral syrup = 20 Gm, By Mouth, Daily at bedtime, GIVE WITH., # 946 mL, 11 Refills, Maintenance, 09/27/23 9:40:00 EST, [facility], 31, TWO TABLESPOONFULS BY MOUTH DAILY [...] 03/08/23 11:54:00 EDT, Route to Pharmacy Electronically, [facility], Partial fill u... Start Date: 03/08/23 Stop Date: 03/08/24 Status: Ordered loratadine 10 mg oral tablet 1, tablet, By Mouth, Daily, PRN, # 30 tablet, Refills 11, Maintenance, NEEDED FOR ALLERGY SYMPTOMS WATERY, ITCHY RED EYES, SNEEZING FOR ALLERGIC RHINITIS, 08/30/23 16:24:00 EDT, Route to Pharmacy Electronically, [facility], 175.2, cm, 08/02/23... Start Date: 08/30/23 Status: Ordered Milk of Magnesia 8% oral suspension 30 mL, By Mouth, Daily at bedtime, FOR CONSTIPATION YITS=9703 MG., # 900 mL, 5 Refills, Maintenance, 10/05/23 12:52:00 EST, [facility], 175.2, cm, 08/02/23 10:30:00 EDT, Height Start Date: 10/05/23 Status: Ordered omeprazole 40 mg oral enteric coated capsule See Instructions, TAKE 1 CAPSULE BY MOUTH DAILY FOR GERD IN AM MAY OPEN CAPSULE, # 30 capsule, 5 Refills, Maintenance, 10/26/23 8:21:00 EST, [facility], 175.2, cm, 08/02/23 10:30:00 EDT, Height Start Date: 10/26/23 Status: Ordered polyethylene glycol 3350 oral powder for reconstitution See Instructions, MIX 17GM WITH 8 OUNCES OF WATER OR JUICE DAILY AND TAKE BY MOUTH AT 5PM FOR CONSTIPATION, # 510 Gm, 5 Refills, Maintenance, 10/26/23 9:47:00 EST, [facility], 30, MIX 17GM WITH 8 OUNCES OF WATER OR JUICE DAILY AND TAKE BY MOUTH A... Start Date: 10/26/23 Status: Ordered pravastatin 40 mg oral tablet See Instructions, TAKE 1 TABLET BY MOUTH DAILY IN THE PM FOR HYPERLIPIDEMIA, # 30 tablet, 5 Refills, Maintenance, 05/19/23 0:31:00 EDT, [facility], 175.2, cm, 05/13/23 11:02:00 EDT, Height Start Date: 05/19/23 Status: Ordered Profola oral tablet 1 tablet, By Mouth, Daily, # 30 tablet, 11 Refills, Maintenance, 06/24/23 10:40:00 EDT, [facility], Partial fill upon patient request if [...] tablet, 5 Refills, Maintenance, 04/04/23 21:00:00 EDT, [facility], 30, TAKE 1 TABLET BY [...] Confirmed Active UI (urinary incontinence) Confirmed Active 72078; repeat 202015; repeat 2018 3egd 2011 barretts, repeat 2014 4egd 2010 positive barretts repeat 2011 5C2 6colonoscopy 2006 nl repeat 2016 7repeat 2024 19626 Social History Social History Type Response Smoking Status Never smoker entered on: 06/25/16 Sex Patient Care team information Care Team Personnel Name: Hannah Roque RN Position: [facility] RN Member Role: Primary Care Nurse Name: Reggie Godinez RN Position: [facility] RN Member Role: Primary Care Nurse Name: Christiane Cedillo RN Position: [facility] RN Member Role: Primary Care Nurse Name: Brandon Freeman MD Position: [facility] Physician - Primary Care Member Role: PCP Address: Address: [address] [place] [address]- [place] Name: Janeen Hoskins RN Position: [facility] RN Member Role: Primary Care Nurse Name: Frantz Mi III, RN Position: [facility] RN Member Role: Primary Care Nurse Name: Tahmina ROTARY DERRICK OPERATOR, Cate Melgar Position: Reference Physician Member Role: Primary Care Nurse Address: Address: [address] [place] [phone]- [place] Name: Fay Morton NP Position: [facility] Medical Student Member Role: Primary Care Nurse Name: Massiel Lu RN Position: [facility] RN Member Role: Primary Care Nurse Name: Lurdes Mujica RN Position: [facility] RN Member Role: Primary Care Nurse Name: Brandie Horvath RN Position: [facility] Primary Operator Member Role: Primary Care Nurse Name: Claribel Howe RN Position: [facility] SN RN Member Role: Primary Care Nurse Care Team Related Persons Name: JOHAN PERKINS Name: DAWOOD DE LOS SANTOS Address: [address] [address] Name: JENNIFER JUAREZ Address: [address] [place] [address]
--- OUTSIDE RECORDS SUMMARY | 2024-02-26 13:14 | XMS_ITS | Continuity of Care Document ---
Author Organization [facility] Chace lt Address [address] [place] [address]- Care Team Providers Care Sales Coach Name Role Phone La MADISON, Brandon Chamorro Primary Care Physician [phone] [facility] Date[facility] 08[facility]23 - 09/02/23 [facility] Adult [address] [place] [address]- Allergies, Adverse Reactions, Alerts Substance Reaction Severity Status azithromycin Active macrolide antibiotics Active Dust Active ketolides Active Immunizations Given and Recorded Vaccine Date Status Refusal Reason pneumococcal 20-valent conjugate vaccine 08/02/23 Given Influenza Virus Vaccine (oldterm) 07/25/23 Recorde d Influenza Virus Vaccine (oldterm) 08/31/20 Recorde d Influenza Virus Vaccine (oldterm) 1 07/18/09 Given Influenza Virus Vaccine (oldterm) 2 09/02/07 Given [id number] 12y+ bivalent booster vax 07/22/22 Recorded tetanus-diphtheria [...] GIVEN 5Admin Note: [facility] 6Admin Note: [employer] [facility] VIS [id number] given 7Admin Note: given in clinic Medications acetaminophen 325 mg oral tablet 2, tablet, By Mouth, Every 6 hours, PRN, [id number]=200LH., # 60 tablet, Refills 0, Maintenance, NEEDED FOR FEVER>100.5 OR PAIN SHOWN BY FACIAL GRIMACE NOTIFY MD IF USED >, 11/12/22 9:30:00 EST, Route to Pharmacy Electronically, [facility], 175.2, c... Start Date: 11/12/22 Stop Date: 11/15/22 Status: Ordered bacitracin zinc 500 units/g topical ointment See Instructions, APPLY SMALL AMOUNT TOPICALLY TO SUPERFICIAL WOUNDS 4 TIMES A DAY NEEDED AN ANTIBACTERIAL / CALL MD IF USING FOR MORE THAN 7 DAYS, # 28 Gm, 11 Refills, Maintenance, 11/09/22 15:57:00 EST, [facility], 7, APPLY SMALL AMOUNT T... Start [...] supp, 11 Refills, Maintenance, 12/16/22 13:35:00 EST, [facility], 175.2, cm, 07/27/22 11:37:00 EDT, Height [...] capsule, 11 Refills, Maintenance, 06/21/23 14:02:00 EDT, [facility], 30, TAKE 1 CAPSULE BY MOUTH [...] Stop 04/06/24 13:54:00 EDT, 04/05/23 13:54:00 EDT, [facility], 5, ONE... Start Date: 04/05/23 Stop Date: 04/06/24 Status: Ordered Ditropan XL 10 mg oral tablet, extended release 10, mg, 1, tablet, By Mouth, Daily, 0, 01/03/07 9:24:09, Print ANNE-MARIE Number, [id number], Constant Indicator Start Date: 01/03/07 Status: Ordered DOK 100 mg oral tablet See Instructions, TAKE 1 TABLET BY MOUTH TWICE DAILY (AM AND PM) (STOOL SOFTENER EQUIVALENT), # 60 tablet, 5 Refills, Maintenance, 02/02/23 15:38:00 EDT, [facility], 175.2, cm, 02/01/23 15:11:00EDT, Height Start [...] Instructions Replace Required Details, Route toPharmacy Electronically, [facility], 175.2, cm... Start Date: 04/09/20 Status: Ordered fit to pt fit to pt, See Instructions, # 1 units, Refills 0, Tot. Refills 0, Maintenance, rigid cervical collar. Fit to pt., 06/21/18 15:59:47 EDT, Compound Start Date: 06/21/18 Status: Ordered Flomax 0.4 mg oral capsule 0.4, mg, 1, capsule, By Mouth, Daily, 0, 0, 01/03/07 9:24:42, Print ANNE-MARIE Number, [id number], Constant Indicator Start Date: 01/03/07 Status: Ordered guaiFENesin 100 mg/5 mL oral liquid 10 mL, By Mouth, 4 times a day, PRN NEEDED FOR COUGH/NOTIFY MD IF NO RELIEF AFTER 48 HRS / DOSE =, GUAIFENESIN (TUSSIN MUCUS CONGEST 100MG/5ML) IC ROBAFEN., # 240 mL, 4 Refills, Maintenance, 07/12/23 14:12:00 EDT, [facility], 175.2, cm, ... Start Date: 07/12/23 Status: Ordered hydrochlorothiazide 25 mg oral tablet 1, tablet, By Mouth, Daily in AM, FOR HTN/MONITOR BP/IF SYSTOLIC MORE THAN 160, DIASTOLIC MORE [id number], SYSTOLIC LESS THAN 90, OR DIASTOLIC LESS THAN 50 CALLMD., # 90 tablet, Refills 1, Tot. Refills1, Maintenance, 03/15/23 14:21:00 EDT, [facility]... Start Date: 03/15/23 Status: Ordered HYDROCORTISONE 1% [...] 12/25/18 11:23:03 EST, Route to Pharmacy Electronically, [id number], [facility] Start Date: 12/25/18 Status: Ordered lactulose 10 gm/15 ml oral syrup = 20 Gm, By Mouth, Daily at bedtime, # 946 mL, 11 Refills, Maintenance, 09/01/22 7:18:00 EDT, [facility], 31, 20 Gm By Mouth Daily [...] 03/08/23 11:54:00 EDT, Route to Pharmacy Electronically, [facility], Partial fill u... Start Date: 03/08/23 Stop Date: 03/08/24 Status: Ordered loratadine 10 mg oral tablet 1, tablet, By Mouth, Daily, PRN, # 30 tablet, Refills 11, Maintenance, NEEDED FOR ALLERGY SYMPTOMS WATERY, ITCHY RED EYES, SNEEZING FOR ALLERGIC RHINITIS, 08/30/23 16:24:00 EDT, Route to Pharmacy Electronically, [facility], 175.2, cm, 08/02/23... Start Date: 08/30/23 Status: Ordered Milk of Magnesia 8% oral suspension 30 mL, By Mouth, Daily at bedtime, FOR CONSTIPATION LUWM=7696 MG., # 900 mL, 5 Refills, Maintenance, 04/04/23 21:00:00 EDT, [facility], 175.2, cm, 02/01/23 15:11:00 EDT, Height Start Date: 04/04/23 Status: Ordered omeprazole 40 mg oral enteric coated capsule See Instructions, TAKE 1 CAPSULE BY MOUTH DAILY FOR GERD IN AM MAY OPEN CAPSULE, # 30 capsule, 2 Refills, Maintenance, 07/25/23 20:17:00 EDT, [facility], 175.2, cm, 05/13/23 11:02:00 EDT, Height Start Date: 07/25/23 Status: Ordered polyethylene glycol 3350 oral powder for reconstitution See Instructions, MIX 17GM WITH 8 OUNCES OF WATER OR JUICE DAILY AT 5PM FOR CONSTIPATION (POLYETHYLENE GLYCOL), # 510 Gm, 11 Refills, Physician Stop 10/07/23 11:17:00 EST, 10/07/22 11:17:00 EST, [facility], 30, MIX 17GM WITH 8 OUNCES OF WATER OR... Start Date: 10/07/22 Stop Date: 10/07/23 Status: Ordered pravastatin 40 mg oral tablet See Instructions, TAKE 1 TABLET BY MOUTH DAILY IN THE PM FOR HYPERLIPIDEMIA, # 30 tablet, 5 Refills, Maintenance, 05/19/23 0:31:00 EDT, [facility], 175.2, cm, 05/13/23 11:02:00 EDT, Height Start Date: 05/19/23 Status: Ordered Profola oral tablet 1 tablet, By Mouth, Daily, # 30 tablet, 11 Refills, Maintenance, 06/24/23 10:40:00 EDT, [facility], Partial fill upon patient request if [...] tablet, 5 Refills, Maintenance, 04/04/23 21:00:00 EDT, [facility], 30, TAKE 1 TABLET BY MOUTH [...] Confirmed Active UI (urinary incontinence) Confirmed Active 87735; repeat 2020; repeat 2017 3egd 2011 barretts, repeat 2014 4egd 2009 positive barretts repeat 2011 5C2 6colonoscopy 2007 nl repeat 2016 7repeat 2024 06691 Social History Social History Type Response Smoking Status Never smoker entered on: 06/25/16 Sex Patient Care team information Care Team Personnel Name: Hannah Roque RN Position: [facility] RN Member Role: Primary Care Nurse Name: Reggie Godinez RN Position: [facility] RN Member Role: Primary Care Nurse Name: Christiane Cedillo RN Position: [facility] RN Member Role: Primary Care Nurse Name: Brandon Freeman MD Position: [facility] Physician - Primary Care Member Role: PCP Address: Address: [address] [place] [phone]- [place] Name: Janeen Hoskins RN Position: [facility] RN Member Role: Primary Care Nurse Name: Frantz Mi III, RN Position: [facility] RN Member Role: Primary Care Nurse Name: Tahmina LABORATORY CUREMANCate Position: Reference Physician Member Role: Primary Care Nurse Address: Address: [address] [place] [phone]- [place] Name: Fay Morton RN Position: [facility] RN Member Role: Primary Care Nurse Name: Massiel Lu RN Position: [facility] RN Member Role: Primary Care Nurse Name: Lurdes Mujica RN Position: [facility] RN Member Role: Primary Care Nurse Name: Brandie Horvath RN Position: [facility] Grain Shoveler Member Role: Primary Care Nurse Name: Claribel Howe RN Position: [facility] SN RN Member Role: Primary Care Nurse Care Team Related Persons Name: JOHAN PERKINS Name: DAWOOD DE LOS SANTOS Address: home [address] [place] [phone] Name: JENNIFER JUAREZ Address: [address] [place] [address]
--- OUTSIDE RECORDS SUMMARY | 2024-02-26 13:14 | XMS_ITS | Continuity of Care Document ---
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 Name Role Phone La MADISON, Brandon Chamorro Primary Care Physician [facility]23 - 06/15/23 [facility] [place], operated [facility] Adult [address] [place] [address]- Allergies, Adverse Reactions, Alerts Substance Reaction Severity Status azithromycin Active macrolide antibiotics Active Dust Active ketolides Active Immunizations Given and Recorded Vaccine Date Status Refusal Reason [id number] 12y+ bivalent booster vax 07/22/22 Recorded tetanus-diphtheria [...] clinic 5Admin Note: [facility]U CLINIC 6Admin Note: [facility] VIS [id number] given 7Admin Note: given in clinic Medications acetaminophen 325 mg oral tablet 2, tablet, By Mouth, Every 6 hours, PRN, [id number]., # 60 tablet, Refills 0, Maintenance, NEEDED FOR FEVER>100.5 OR PAIN SHOWN BY FACIAL GRIMACE NOTIFY MD IF USED >, 11/12/22 9:30:00 EST, Route to Pharmacy Electronically, [facility], 175.2, c... Start Date: 11/12/22 Stop Date: 11/15/22 Status: Ordered bacitracin zinc 500 units/g topical ointment See Instructions, APPLY SMALL AMOUNT TOPICALLY TO SUPERFICIAL WOUNDS 4 TIMES A DAY NEEDED AN ANTIBACTERIAL / CALL MD IF USING FOR MORE THAN 7 DAYS, # 28 Gm, 11 Refills, Maintenance, 11/09/22 15:57:00 EST, [facility], 7, APPLY SMALL AMOUNT T... Start [...] supp, 11 Refills, Maintenance, 12/16/22 13:35:00 EST, [facility], 175.2, cm, 07/27/22 11:37:00 EDT, Height [...] 30 capsule, 11 Refills, Maintenance, 07/29/2211:36:00 EDT, [facility], 30, 1 capsule By Mouth Daily,Instr:FOR [...] Stop 04/06/24 13:54:00 EDT, 04/05/23 13:54:00 EDT, [facility], 5, ONE... Start Date: 04/05/23 Stop Date: 04/06/24 Status: Ordered Ditropan XL 10 mg oral tablet, extended release 10, mg, 1, tablet, By Mouth, Daily, 0, 01/03/07 9:24:09, Print ANNE-MARIE Number, [id number], Constant Indicator Start Date: 01/03/07 Status: Ordered DOK 100 mg oral tablet See Instructions, TAKE 1 TABLET BY MOUTH TWICE DAILY (AM AND PM) (STOOL SOFTENER EQUIVALENT), # 60 tablet, 5 Refills, Maintenance, 02/02/23 15:38:00 EDT, [facility], 175.2, cm, 02/01/23 15:11:00EDT, Height Start [...] Instructions Replace Required Details, Route toPharmacy Electronically, [facility], 175.2, cm... Start Date: 04/09/20 Status: Ordered fit to pt fit to pt, See Instructions, # 1 units, Refills 0, Tot. Refills 0, Maintenance, rigid cervical collar. Fit to pt., 06/21/18 15:59:47 EDT, Compound Start Date: 06/21/18 Status: Ordered Flomax 0.4 mg oral capsule 0.4, mg, 1, capsule, By Mouth, Daily, 0, 0, 01/03/07 9:24:42, Print ANNE-MARIE Number, [id number], Constant Indicator Start Date: 01/03/07 Status: Ordered hydrochlorothiazide 25 mg oral tablet 1, tablet, By Mouth, Daily in AM, FOR HTN/MONITOR BP/IF SYSTOLIC MORE THAN 160, DIASTOLIC MORE [id number], SYSTOLIC LESS THAN 90, OR DIASTOLIC LESS [...] Gm, 11 Refills, Maintenance, 12/11/19 11:11:00 EST, [facility], APPLY TO EXTERNAL HEMMORRHOIDS TWICE DAILY PRN PER DR FREEMAN, 175.2, cm, 10/12/19 8:18:00 EST, Height,... Start Date: 12/11/19 Status: Ordered ibuprofen 400 mg oral tablet 400 mg, 1, tablet, By Mouth, 3 times a day, PRN, # 30 tablet, Refills 1, Tot. Refills 1, Maintenance, as needed for pain, 12/25/18 11:23:03 EST, Route to Pharmacy Electronically, [id number], [facility] Start Date: 12/25/18 Status: Ordered lactulose 10 gm/15 ml oral syrup = 20 Gm, By Mouth, Daily at bedtime, # 946 mL, 11 Refills, Maintenance, 09/01/22 7:18:00 EDT, [facility], 31, 20 Gm By Mouth Daily [...] 03/08/23 11:54:00 EDT, Route to Pharmacy Electronically, [facility], Partial fill u... Start Date: 03/08/23 Stop Date: 03/08/24 Status: Ordered loratadine 10 mg oral tablet 1, tablet, By Mouth, Daily, PRN, # 30 tablet, Refills 11, NEEDED FOR ALLERGY SYMPTOMS WATERY, ITCHY RED EYES, SNEEZING FOR ALLERGIC RHINITIS, Route to Pharmacy Electronically, [facility], 175.2, cm, 07/20/21 10:29:00 EDT, Height Start Date: 11/10/21 Status: Ordered Milk of Magnesia 8% oral suspension 30 mL, By Mouth, Daily at bedtime, FOR CONSTIPATION BTFT=4569 MG., # 900 mL, 5 Refills, Maintenance, 04/04/23 21:00:00 EDT, [facility], 175.2, cm, 02/01/23 15:11:00 EDT, Height Start Date: 04/04/23 Status: Ordered omeprazole 40 mg oral enteric coated capsule 1 capsule, By Mouth, Daily in AM, # 30 capsule, 5 Refills, Maintenance, 02/01/23 7:37:00 EDT, [facility], 175.2, cm, 07/27/22 11:37:00 EDT, Height Start Date: 02/01/23 Status: Ordered polyethylene glycol 3350 oral powder for reconstitution See Instructions, MIX 17GM WITH 8 OUNCES OF WATER OR JUICE DAILY AT 5PM FOR CONSTIPATION (POLYETHYLENE GLYCOL), # 510 Gm, 11 Refills, Physician Stop 10/07/23 11:17:00 EST, 10/07/22 11:17:00 EST, [facility], 30, MIX 17GM WITH 8 OUNCES OF WATER OR... Start Date: 10/07/22 Stop Date: 10/07/23 Status: Ordered pravastatin 40 mg oral tablet See Instructions, TAKE 1 TABLET BY MOUTH DAILY IN THE PM FOR HYPERLIPIDEMIA, # 30 tablet, 5 Refills, Maintenance, 05/19/23 0:31:00 EDT, [facility], 175.2, cm, 05/13/23 11:02:00 EDT, Height [...] 1 Refills, Maintenance, 05/11/22 14:45:00 EDT, Cream, [facility], Partial fill upon patient request if [...] tablet, 5 Refills, Maintenance, 04/04/23 21:00:00 EDT, [facility], 30, TAKE 1 TABLET BY MOUTH [...] Confirmed Active UI (urinary incontinence) Confirmed Active 24286; repeat 2020 96606; repeat 2018 3egd 2012 barretts, repeat 2014 4egd 2010 positive barretts repeat 2012 5C2 6colonoscopy 2007 nl repeat 2016 7repeat 2024 09283 Social History Social History Type Response Smoking Status Never smoker entered on: 06/25/16 Sex Patient Care team information Care Team Personnel Name: Hannah Roque RN Position: [facility] RN Member Role: Primary Care Nurse Name: Reggie Godinez RN Position: [facility] RN Member Role: Primary Care Nurse Name: Christinae Cedillo RN Position: [facility] RN Member Role: Primary Care Nurse Name: Brandon Freeman MD Position: [facility] Physician - Primary Care Member Role: PCP Address: Address: [address] [place] [address]- Name: Janeen Hoskins RN Position: [facility] RN Member Role: Primary Care Nurse Name: Cydney Mckinney RN Position: [facility] RN Member Role: Primary Care Nurse Name: Frantz Mi III, RN Position: [facility] RN Member Role: Primary Care Nurse Name: Cate Martel NP Position: Reference Physician Member Role: Primary Care Nurse Address: Address: [address] [place] [address]- Name: Fay Morton RN Position: [facility] RN Member Role: Primary Care Nurse Name: Massiel Lu RN Position: [facility] RN Member Role: Primary Care Nurse Name: Lurdes Mujica RN Position: [facility] RN Member Role: Primary Care Nurse Name: Brandie Horvath RN Position: [facility]er Member Role: Primary Care Nurse Name: Claribel Howe RN Position: [facility] SN RN Member Role: Primary Care Nurse Care Team Related Persons Name: JOHAN PERKINS Name: DAWOOD DE LOS SANTOS Address: [address] [address] Name: JENNIFER JUAREZ Address: home [address] [place] [id number]
--- OUTSIDE RECORDS SUMMARY | 2024-02-26 13:14 | XMS_ITS | Continuity of Care Document ---
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 Role Phone Brandon Freeman MD Primary Care Physician [facility]): [facility]24 - 01/20/24 [facility] [address] [place] [address]- Attending Physician: Brandon Freeman MD Allergies, Adverse [...] Influenza Virus Vaccine (oldterm) 2 09/02/07 Given [id number] 12y+ bivalent booster vax 07/22/22 Recorded tetanus-diphtheria [...] 08/16/08 Given 1Admin Note: given by lisy doc by tyler 2Admin Note: given in clinic 3Admin Note: [facility]U CLINIC 4Admin Note: VIS GIVEN 5Admin Note: FLU CLINIC 6Admin Note: [employer] [facility] VIS [id number] given 7Admin Note: given in clinic Medications acetaminophen 325 mg oral tablet 2, tablet, By Mouth, Every 6 hours, PRN, [id number]., # 60 tablet, Refills 0, Maintenance, NEEDED FOR FEVER>100.5 OR PAIN SHOWN BY FACIAL GRIMACE NOTIFY MD IF USED >, 09/13/23 10:09:00 EST, Route to Pharmacy Electronically, [facility], 175.2,... Start Date: 09/13/23 Stop Date: 09/16/23 Status: Ordered bacitracin zinc 500 units/g topical ointment See Instructions, APPLY SMALL AMOUNT TOPICALLY TO SUPERFICIAL WOUNDS 4 TIMES A DAY NEEDED AN ANTIBACTERIAL / CALL MD IF USING FOR MORE THAN 7 DAYS, # 28 Gm, 11 Refills, Maintenance, 11/09/22 15:57:00 EST, [facility], 7, APPLY SMALL AMOUNT T... Start [...] CONSTIPATION, # 7 supp, 11 Refills, Maintenance, 12/23/23 8:21:00 EST, [facility], 175.2, cm, 08/02/23 10:30:00 EDT, Height Start Date: 12/23/23 Status: Ordered chlorhexidine topical 0.12% liquid 15 [...] capsule, 11 Refills, Maintenance, 06/21/23 14:02:00 EDT, [facility], 30, TAKE 1 CAPSULE BY [...] Stop 04/06/24 13:54:00 EDT, 04/05/23 13:54:00 EDT, [facility], 5, ONE... Start Date: 04/05/23 Stop Date: 04/06/24 Status: Ordered Ditropan XL 10 mg oral tablet, extended release 10, mg, 1, tablet, By Mouth, Daily, 0, 01/03/07 9:24:09, Print ANNE-MARIE Number, [id number], Constant Indicator Start Date: 01/03/07 Status: Ordered DOK 100 mg oral tablet See Instructions, TAKE 1 TABLET BY MOUTH TWICE DAILY (AM AND PM) (STOOL SOFTENER EQUIVALENT), # 60 tablet, 5 Refills, Maintenance, 02/02/23 15:38:00 EDT, [facility], 175.2, cm, 02/01/23 15:11:00EDT, Height Start [...] Instructions Replace Required Details, Route toPharmacy Electronically, [facility], 175.2, cm... Start Date: 04/09/20 Status: Ordered fit to pt fit to pt, See Instructions, # 1 units, Refills 0, Tot. Refills 0, Maintenance, rigid cervical collar. Fit to pt., 06/21/18 15:59:47 EDT, Compound Start Date: 06/21/18 Status: Ordered Flomax 0.4 mg oral capsule 0.4, mg, 1, capsule, By Mouth, Daily, 0, 0, 01/03/07 9:24:42, Print ANNE-MARIE Number, [id number], Constant Indicator Start Date: 01/03/07 Status: Ordered guaiFENesin 100 mg/5 mL oral liquid 10 mL, By Mouth, 4 times a day, PRN NEEDED FOR COUGH/NOTIFY MD IF NO RELIEF AFTER 48 HRS / DOSE =, GUAIFENESIN (TUSSIN MUCUS CONGEST 100MG/5ML) [facility] # 240 mL, 4 Refills, Maintenance, 07/12/23 14:12:00 EDT, [facility], 175.2, cm, ... Start Date: 07/12/23 Status: Ordered hydrochlorothiazide 25 mg oral tablet See Instructions, TAKE 1 TAB BY MOUTH DAILY IN AM FOR HTN/MONITOR BP/IF SYSTOLIC MORE THAN 160, DIASTOLIC MORE THAN 100, SYSTOLIC LESS THAN 90, OR DIASTOLIC LESS THAN 50 CALLIN, # 30 tablet, Refills 5, Maintenance, 09/08/23 [...] 12/25/18 11:23:03 EST, Route to Pharmacy Electronically, [id number], [facility] Start Date: 12/25/18 Status: Ordered lactulose 10 gm/15 ml oral syrup = 20 Gm, By Mouth, Daily at bedtime, GIVE WITH., # 946 mL, 11 Refills, Maintenance, 09/27/23 9:40:00 EST, [facility], 31, TWO TABLESPOONFULS BY MOUTH [...] 03/08/23 11:54:00 EDT, Route to Pharmacy Electronically, [facility], Partial fill u... Start Date: 03/08/23 Stop Date: 03/08/24 Status: Ordered loratadine 10 mg oral tablet 1, tablet, By Mouth, Daily, PRN, # 30 tablet, Refills 11, Maintenance, NEEDED FOR ALLERGY SYMPTOMS WATERY, ITCHY RED EYES, SNEEZING FOR ALLERGIC RHINITIS, 08/30/23 16:24:00 EDT, Route to Pharmacy Electronically, [facility], 175.2, cm, 10/03/23... Start Date: 08/30/23 Status: Ordered Milk of Magnesia 8% oral suspension 30 mL, By Mouth, Daily at bedtime, FOR CONSTIPATION CCHC=6207 MG., # 900 mL, 5 Refills, Maintenance, 10/05/23 12:52:00 EST, [facility], 175.2, cm, 08/02/23 10:30:00 EDT, Height Start Date: 10/05/23 Status: Ordered omeprazole 40 mg oral enteric coated capsule See Instructions, TAKE 1 CAPSULE BY MOUTH DAILY FOR GERD IN AM MAY OPEN CAPSULE, # 30 capsule, 5 Refills, Maintenance, 10/26/23 8:21:00 EST, [facility], 175.2, cm, 08/02/23 10:30:00 EDT, Height Start Date: 10/26/23 Status: Ordered polyethylene glycol 3350 oral powder for reconstitution See Instructions, MIX 17GM WITH 8 OUNCES OF WATER OR JUICE DAILY AND TAKE BY MOUTH AT 5PM FOR CONSTIPATION, # 510 Gm, 5 Refills, Maintenance, 10/26/23 9:47:00 EST, [facility], 30, MIX 17GM WITH 8 OUNCES OF WATER OR JUICE DAILY AND TAKE BY MOUTH A... Start Date: 10/26/23 Status: Ordered pravastatin 40 mg oral tablet 1 tablet, By Mouth, Daily, IN THE PM FOR HYPERLIPIDEMIA., # 30 tablet, 5 Refills, Maintenance, 11/09/23 7:50:00 EST, [facility], 175.2, cm, 08/02/23 10:30:00 EDT, Height Start Date: 11/09/23 Status: Ordered Profola oral tablet 1 tablet, By Mouth, Daily, # 30 tablet, 11 Refills, Maintenance, 06/24/23 10:40:00 EDT, [facility], Partial fill upon patient request if [...] 1 Refills, Maintenance, 05/11/22 14:45:00 EDT, Cream, [facility], Partial fill upon patient request if [...] tablet, 5 Refills, Maintenance, 04/04/23 21:00:00 EDT, [facility], 30, TAKE 1 TABLET BY [...] Confirmed Active UI (urinary incontinence) Confirmed Active 47813; repeat 2020; repeat 2017 3egd 2011 barretts, repeat 2014 4egd 2009 positive barretts repeat 2012 5C2 6colonoscopy 2007 nl repeat 2017 7repeat 2024 28219 Vital Signs Most recent to oldest [Reference Range]: 1 Height 175.2 cm (01/13/24 3:00 PM) Weight 74.8 kg (01/13/24 3:00 PM) Oxygen Saturation [94-100 %] 98 % (01/13/24 3:00 PM) Pulse Rate [55-90 bpm] 77 bpm (01/13/24 3:00 PM) Body Mass Index [18.5-24.99 kg/m2] 24.37 kg/m2 (01/13/24 3:00 PM) Blood Pressure [90-138/55-84 mm Hg] 100/ 60mm Hg (01/13/24 3:00 PM) Mode of Delivery (Oxygen) Room air (01/13/24 3:00 PM) Blood pressure sites Arm, left (01/13/24 3:00 PM) Weight Obtained Via Standing scale (01/13/24 3:00 PM) Social History Social History Type Response Smoking Status Never smoker entered on: 06/25/16 Sex Patient Care team information Care Team Personnel Name: Hannah Roque RN Position: [facility] RN Member Role: Primary Care Nurse Name: Reggie Godinez RN Position: [facility] RN Member Role: Primary Care Nurse Name: Christiane Cedillo RN Position: [facility] RN Member Role: Primary Care Nurse Name: Brandon Freeman MD Position: [facility] Physician - Primary Care Member Role: PCP Address: Address: [address] [place] [phone]- [place] Name: Janeen Hoskins RN Position: [facility] ED RN W/OE and Tasks Member Role: Primary Care Nurse Name: Hiwot CRAVEN RN, Frantz Position: [facility] RN Member Role: Primary Care Nurse Name: Cate Martel NP Position: Reference Physician Member Role: Primary Care Nurse Address: Address: [address] [place] [phone]- [place] Name: Massiel Lu RN Position: [facility] RN Member Role: Primary Care Nurse Name: Lurdes Mujica RN Position: [facility] RN Member Role: Primary Care Nurse Name: Brandie Horvath RN Position: [facility] Mixer Operator Member Role: Primary Care Nurse Name: Shyam RN, [place] Position: [facility] RN Member Role: Primary Care Nurse Care Team Related Persons Name: JOHAN PERKINS Name: DAWOOD DE LOS SANTOS Address: home [address] [place] [phone] Name: JENNIFER JUAREZ Address: home [address] [place] [id number]
--- OUTSIDE RECORDS SUMMARY | 2024-02-26 13:14 | XMS_ITS | Continuity of Care Document ---
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 Name Role Phone La MADISON, Brandon Chamorro Primary Care Physician [phone] [facility] 12/22/23 - 01/21/24 [facility] Adult [address] [place] [address]- Allergies, Adverse Reactions, Alerts Substance Reaction Severity Status azithromycin Active macrolide antibiotics Active Dust Active ketolides Active Immunizations Given and Recorded Vaccine Date Status Refusal Reason pneumococcal 20-valent conjugate vaccine 08/02/23 Given Influenza Virus Vaccine (oldterm) 07/25/23 Recorde d Influenza Virus Vaccine (oldterm) 08/31/20 Recorde d Influenza Virus Vaccine (oldterm) 1 07/18/09 Given Influenza Virus Vaccine (oldterm) 2 09/02/07 Given [id number] 12y+ bivalent booster vax 07/22/22 Recorded tetanus-diphtheria [...] GIVEN 5Admin Note: FLU CLINIC 6Admin Note: [employer] [facility] VIS [id number] given 7Admin Note: given in clinic Medications acetaminophen 325 mg oral tablet 2, tablet, By Mouth, Every 6 hours, PRN, [id number]., # 60 tablet, Refills 0, Maintenance, NEEDED FOR FEVER>100.5 OR PAIN SHOWN BY FACIAL GRIMACE NOTIFY MD IF USED >, 09/13/23 10:09:00 EST, Route to Pharmacy Electronically, [facility], 175.2,... Start Date: 09/13/23 Stop Date: 09/16/23 Status: Ordered bacitracin zinc 500 units/g topical ointment See Instructions, APPLY SMALL AMOUNT TOPICALLY TO SUPERFICIAL WOUNDS 4 TIMES A DAY NEEDED AN ANTIBACTERIAL / CALL MD IF USING FOR MORE THAN 7 DAYS, # 28 Gm, 11 Refills, Maintenance, 11/09/22 15:57:00 EST, [facility], 7, APPLY SMALL AMOUNT T... Start [...] supp, 11 Refills, Maintenance, 12/23/23 8:21:00 EST, [facility], 175.2, cm, 08/02/23 10:30:00 EDT, Height [...] capsule, 11 Refills, Maintenance, 06/21/23 14:02:00 EDT, [facility], 30, TAKE 1 CAPSULE BY MOUTH [...] Stop 04/06/24 13:54:00 EDT, 04/05/23 13:54:00 EDT, [facility], 5, ONE... Start Date: 04/05/23 Stop Date: 04/06/24 Status: Ordered Ditropan XL 10 mg oral tablet, extended release 10, mg, 1, tablet, By Mouth, Daily, 0, 01/03/07 9:24:09, Print ANNE-MARIE Number, [id number], Constant Indicator Start Date: 01/03/07 Status: Ordered DOK 100 mg oral tablet See Instructions, TAKE 1 TABLET BY MOUTH TWICE DAILY (AM AND PM) (STOOL SOFTENER EQUIVALENT), # 60 tablet, 5 Refills, Maintenance, 02/02/23 15:38:00 EDT, [facility], 175.2, cm, 02/01/23 15:11:00EDT, Height Start [...] Instructions Replace Required Details, Route toPharmacy Electronically, [facility], 175.2, cm... Start Date: 04/09/20 Status: Ordered fit to pt fit to pt, See Instructions, # 1 units, Refills 0, Tot. Refills 0, Maintenance, rigid cervical collar. Fit to pt., 06/21/18 15:59:47 EDT, Compound Start Date: 06/21/18 Status: Ordered Flomax 0.4 mg oral capsule 0.4, mg, 1, capsule, By Mouth, Daily, 0, 0, 03/06/07 9:24:42, Print ANNE-MARIE Number, [id number], Constant Indicator Start Date: 01/03/07 Status: Ordered [...] 12/25/18 11:23:03 EST, Route to Pharmacy Electronically, [id number], [facility] Start Date: 12/25/18 Status: Ordered lactulose 10 gm/15 ml oral syrup = 20 Gm, By Mouth, Daily at bedtime, GIVE WITH., # 946 mL, 11 Refills, Maintenance, 09/27/23 9:40:00 EST, [facility], 31, TWO TABLESPOONFULS BY MOUTH DAILY [...] 03/08/23 11:54:00 EDT, Route to Pharmacy Electronically, [facility], Partial fill u... Start Date: 03/08/23 Stop Date: 03/08/24 Status: Ordered loratadine 10 mg oral tablet 1, tablet, By Mouth, Daily, PRN, # 30 tablet, Refills 11, Maintenance, NEEDED FOR ALLERGY SYMPTOMS WATERY, ITCHY RED EYES, SNEEZING FOR ALLERGIC RHINITIS, 08/30/23 16:24:00 EDT, Route to Pharmacy Electronically, [facility], 175.2, cm, 08/02/23... Start Date: 08/30/23 Status: Ordered Milk of Magnesia 8% oral suspension 30 mL, By Mouth, Daily at bedtime, FOR CONSTIPATION SFZP=7836 MG., # 900 mL, 5 Refills, Maintenance, 10/05/23 12:52:00 EST, [facility], 175.2, cm, 08/02/23 10:30:00 EDT, Height Start Date: 10/05/23 Status: Ordered omeprazole 40 mg oral enteric coated capsule See Instructions, TAKE 1 CAPSULE BY MOUTH DAILY FOR GERD IN AM MAY OPEN CAPSULE, # 30 capsule, 5 Refills, Maintenance, 10/26/23 8:21:00 EST, [facility], 175.2, cm, 08/02/23 10:30:00 EDT, Height Start Date: 10/26/23 Status: Ordered polyethylene glycol 3350 oral powder for reconstitution See Instructions, MIX 17GM WITH 8 OUNCES OF WATER OR JUICE DAILY AND TAKE BY MOUTH AT 5PM FOR CONSTIPATION, # 510 Gm, 5 Refills, Maintenance, 10/26/23 9:47:00 EST, [facility], 30, MIX 17GM WITH 8 OUNCES OF WATER OR JUICE DAILY AND TAKE BY MOUTH A... Start Date: 10/26/23 Status: Ordered pravastatin 40 mg oral tablet 1 tablet, By Mouth, Daily, IN THE PM FOR HYPERLIPIDEMIA., # 30 tablet, 5 Refills, Maintenance, 11/09/23 7:50:00 EST, [facility], 175.2, cm, 08/02/23 10:30:00 EDT, Height Start Date: 11/09/23 Status: Ordered Profola oral tablet 1 tablet, By Mouth, Daily, # 30 tablet, 11 Refills, Maintenance, 06/24/23 10:40:00 EDT, [facility], Partial fill upon patient request if [...] 1 Refills, Maintenance, 05/11/22 14:45:00 EDT, Cream, [facility], Partial fill upon patient request if [...] tablet, 5 Refills, Maintenance, 04/04/23 21:00:00 EDT, [facility], 30, TAKE 1 TABLET BY MOUTH [...] Confirmed Active UI (urinary incontinence) Confirmed Active 95486; repeat 202015; repeat 2017 3egd 2011 barretts, repeat 2014 4egd 2009 positive barretts repeat 2012 5C2 6colonoscopy 2007 nl repeat 2017 7repeat 2025 20924 Social History Social History Type Response Smoking Status Never smoker entered on: 06/25/16 Sex Patient Care team information Care Team Personnel Name: Hannah Roque RN Position: [facility] RN Member Role: Primary Care Nurse Name: Reggie Godinez RN Position: [facility] RN Member Role: Primary Care Nurse Name: Christiane Cedillo RN Position: [facility] RN Member Role: Primary Care Nurse Name: Brandon Freeman MD Position: [facility] Physician - Primary Care Member Role: PCP Address: Address: [address] [place] [id number]- [place] Name: Janeen Hoskins RN Position: [facility] ED RN W/OE and Tasks Member Role: Primary Care Nurse Name: Frantz Mi III, RN Position: [facility] RN Member Role: Primary Care Nurse Name: Tahmina CLAY SHOP SUPERVISOR, Cate Melgar Position: Reference Physician Member Role: Primary Care Nurse Address: Address: [address] [place] [phone]- Name: Massiel Lu RN Position: [facility] RN Member Role: Primary Care Nurse Name: Lurdes Mujica RN Position: [facility] RN Member Role: Primary Care Nurse Name: Brandie Horvath RN Position: [facility] Door Liner Helper Member Role: Primary Care Nurse Name: Claribel Howe RN Position: [facility] SN RN Member Role: Primary Care Nurse Care Team Related Persons Name: JOHAN PERKINS Name: DAWOOD DE LOS SANTOS Address: home [address] [place] [id number] Name: JENNIFER JUAREZ Address: home [address] [place] [address]
--- OUTSIDE RECORDS SUMMARY | 2024-02-26 13:14 | XMS_ITS | Continuity of Care Document ---
Author Organization [facility] Chace lt Address [address] [place] [address]- Care Team Providers Care Digital Media Coordinator Name Role Phone La MADISON, Brandon Chamorro Primary Care Physician [facility] Date[facility]): 11/08/23 - 12/08/23 [facility] Adult [address] [place] [address]- Allergies, Adverse Reactions, Alerts Substance Reaction Severity Status azithromycin Active macrolide antibiotics Active Dust Active ketolides Active Immunizations Given and Recorded Vaccine Date Status Refusal Reason pneumococcal 20-valent conjugate vaccine 08/02/23 Given Influenza Virus Vaccine (oldterm) 07/25/23 Recorde d Influenza Virus Vaccine (oldterm) 08/31/20 Recorde d Influenza Virus Vaccine (oldterm) 1 07/18/09 Given Influenza Virus Vaccine (oldterm) 2 09/02/07 Given [id number] 12y+ bivalent booster vax 07/22/22 Recorded tetanus-diphtheria [...] GIVEN 5Admin Note: [facility]U CLINIC 6Admin Note: [facility]less of [facility] VIS [id number] given 7Admin Note: given in clinic Medications acetaminophen 325 mg oral tablet 2, tablet, By Mouth, Every 6 hours, PRN, [id number]., # 60 tablet, Refills 0, Maintenance, NEEDED FOR FEVER>100.5 OR PAIN SHOWN BY FACIAL GRIMACE NOTIFY MD IF USED >, 09/13/23 10:09:00 EST, Route to Pharmacy Electronically, [facility], 175.2,... Start Date: 09/13/23 Stop Date: 09/16/23 Status: Ordered bacitracin zinc 500 units/g topical ointment See Instructions, APPLY SMALL AMOUNT TOPICALLY TO SUPERFICIAL WOUNDS 4 TIMES A DAY NEEDED AN ANTIBACTERIAL / CALL MD IF USING FOR MORE THAN 7 DAYS, # 28 Gm, 11 Refills, Maintenance, 11/09/22 15:57:00 EST, [facility], 7, APPLY SMALL AMOUNT T... Start [...] supp, 11 Refills, Maintenance, 12/16/22 13:35:00 EST, [facility], 175.2, cm, 07/27/22 11:37:00 EDT, Height [...] capsule, 11 Refills, Maintenance, 06/21/23 14:02:00 EDT, [facility], 30, TAKE 1 CAPSULE BY MOUTH [...] Stop 04/06/24 13:54:00 EDT, 04/05/23 13:54:00 EDT, [facility], 5, ONE... Start Date: 04/05/23 Stop Date: 04/06/24 Status: Ordered Ditropan XL 10 mg oral tablet, extended release 10, mg, 1, tablet, By Mouth, Daily, 0, 01/03/07 9:24:09, Print ANNE-MARIE Number, [id number], Constant Indicator Start Date: 01/03/07 Status: Ordered DOK 100 mg oral tablet See Instructions, TAKE 1 TABLET BY MOUTH TWICE DAILY (AM AND PM) (STOOL SOFTENER EQUIVALENT), # 60 tablet, 5 Refills, Maintenance, 02/02/23 15:38:00 EDT, [facility], 175.2, cm, 02/01/23 15:11:00EDT, Height Start [...] Instructions Replace Required Details, Route toPharmacy Electronically, [facility], 175.2, cm... Start Date: 04/09/20 Status: Ordered fit to pt fit to pt, See Instructions, # 1 units, Refills 0, Tot. Refills 0, Maintenance, rigid cervical collar. Fit to pt., 06/21/18 15:59:47 EDT, Compound Start Date: 06/21/18 Status: Ordered Flomax 0.4 mg oral capsule 0.4, mg, 1, capsule, By Mouth, Daily, 0, 0, 03/06/07 9:24:42, Print ANNE-MARIE Number, [id number], Constant Indicator Start Date: 01/03/07 Status: Ordered [...] 12/25/18 11:23:03 EST, Route to Pharmacy Electronically, [id number], [facility] Start Date: 12/25/18 Status: Ordered lactulose 10 gm/15 ml oral syrup = 20 Gm, By Mouth, Daily at bedtime, GIVE WITH., # 946 mL, 11 Refills, Maintenance, 09/27/23 9:40:00 EST, [facility], 31, TWO TABLESPOONFULS BY MOUTH DAILY [...] 03/08/23 11:54:00 EDT, Route to Pharmacy Electronically, [facility], Partial fill u... Start Date: 03/08/23 Stop Date: 03/08/24 Status: Ordered loratadine 10 mg oral tablet 1, tablet, By Mouth, Daily, PRN, # 30 tablet, Refills 11, Maintenance, NEEDED FOR ALLERGY SYMPTOMS WATERY, ITCHY RED EYES, SNEEZING FOR ALLERGIC RHINITIS, 08/30/23 16:24:00 EDT, Route to Pharmacy Electronically, [facility], 175.2, cm, 08/02/23... Start Date: 08/30/23 Status: Ordered Milk of Magnesia 8% oral suspension 30 mL, By Mouth, Daily at bedtime, FOR CONSTIPATION VENY=4166 MG., # 900 mL, 5 Refills, Maintenance, 10/05/23 12:52:00 EST, [facility], 175.2, cm, 08/02/23 10:30:00 EDT, Height Start Date: 10/05/23 Status: Ordered omeprazole 40 mg oral enteric coated capsule See Instructions, TAKE 1 CAPSULE BY MOUTH DAILY FOR GERD IN AM MAY OPEN CAPSULE, # 30 capsule, 5 Refills, Maintenance, 10/26/23 8:21:00 EST, [facility], 175.2, cm, 08/02/23 10:30:00 EDT, Height Start Date: 10/26/23 Status: Ordered polyethylene glycol 3350 oral powder for reconstitution See Instructions, MIX 17GM WITH 8 OUNCES OF WATER OR JUICE DAILY AND TAKE BY MOUTH AT 5PM FOR CONSTIPATION, # 510 Gm, 5 Refills, Maintenance, 10/26/23 9:47:00 EST, [facility], 30, MIX 17GM WITH 8 OUNCES OF WATER OR JUICE DAILY AND TAKE BY MOUTH A... Start Date: 10/26/23 Status: Ordered pravastatin 40 mg oral tablet 1 tablet, By Mouth, Daily, IN THE PM FOR HYPERLIPIDEMIA., # 30 tablet, 5 Refills, Maintenance, 11/09/23 7:50:00 EST, [facility], 175.2, cm, 08/02/23 10:30:00 EDT, Height Start Date: 11/09/23 Status: Ordered Profola oral tablet 1 tablet, By Mouth, Daily, # 30 tablet, 11 Refills, Maintenance, 06/24/23 10:40:00 EDT, [facility], Partial fill upon patient request if [...] 1 Refills, Maintenance, 05/11/22 14:45:00 EDT, Cream, [facility], Partial fill upon patient request if [...] tablet, 5 Refills, Maintenance, 04/04/23 21:00:00 EDT, [facility], 30, TAKE 1 TABLET BY MOUTH [...] Confirmed Active UI (urinary incontinence) Confirmed Active 09574; repeat 202015; repeat 2017 3egd 2011 barretts, repeat 2014 4egd 2010 positive barretts repeat 2012 5C2 6colonoscopy 2007 nl repeat 2017 7repeat 202 22644 Social History Social History Type Response Smoking Status Never smoker entered on: 06/25/16 Sex Patient Care team information Care Team Personnel Name: Hannah Roque RN Position: [facility] RN Member Role: Primary Care Nurse Name: Reggie Godinez RN Position: [facility] RN Member Role: Primary Care Nurse Name: Christiane Cedillo RN Position: [facility] RN Member Role: Primary Care Nurse Name: Brandon Freeman MD Position: [facility] Physician - Primary Care Member Role: PCP Address: Address: [address] [place] [phone]- [place] Name: Janeen Hoskins RN Position: [facility] RN Member Role: Primary Care Nurse Name: Frantz Mi III, RN Position: [facility] RN Member Role: Primary Care Nurse Name: Tahmina LUZ, Cate Melgar Position: Reference Physician Member Role: Primary Care Nurse Address: Address: [address] [place] [address]- Name: Massiel Lu RN Position: [facility] RN Member Role: Primary Care Nurse Name: Lurdes uMjica RN Position: [facility] RN Member Role: Primary Care Nurse Name: Brandie Horvath RN Position: [facility] Enterprise Business Architect Member Role: Primary Care Nurse Name: Claribel Howe RN Position: [facility] RN Member Role: Primary Care Nurse Care Team Related Persons Name: JOHAN PERKINS Name: DAWOOD DE LOS SANTOS Address: home [address] [place] [id number] Name: JENNIFER JUAREZ Address: home [address] [place] [address]
--- OUTSIDE RECORDS SUMMARY | 2024-02-26 13:14 | XMS_ITS | Continuity of Care Document ---
[facility] Address [address] [place] [address]- Care Team Providers Care Hydroelectric Station Chief Name Role Phone La MADISON, Brandon Chamorro Primary Care Physician [phone] [facility]23 - 10[facility]09/23 [facility] Adult [address] [place] [address]- Allergies, Adverse Reactions, Alerts Substance Reaction Severity Status azithromycin Active macrolide antibiotics Active Dust Active ketolides Active Immunizations Given and Recorded Vaccine Date Status Refusal Reason pneumococcal 20-valent conjugate vaccine 08/02/23 Given Influenza Virus Vaccine (oldterm) 07/25/23 Recorde d Influenza Virus Vaccine (oldterm) 08/31/20 Recorde d Influenza Virus Vaccine (oldterm) 1 07/18/09 Given Influenza Virus Vaccine (oldterm) 2 09/02/07 Given [id number] 12y+ bivalent booster vax 07/22/22 Recorded tetanus-diphtheria [...] GIVEN 5Admin Note: FLU CLINIC 6Admin Note: [employer] [facility] VIS [id number] given 7Admin Note: given in clinic Medications acetaminophen 325 mg oral tablet 2, tablet, By Mouth, Every 6 hours, PRN, [id number]., # 60 tablet, Refills 0, Maintenance, NEEDED FOR FEVER>100.5 OR PAIN SHOWN BY FACIAL GRIMACE NOTIFY MD IF USED >, 09/13/23 10:09:00 EST, Route to Pharmacy Electronically, [facility], 175.2,... Start Date: 09/13/23 Stop Date: 09/16/23 Status: Ordered bacitracin zinc 500 units/g topical ointment See Instructions, APPLY SMALL AMOUNT TOPICALLY TO SUPERFICIAL WOUNDS 4 TIMES A DAY NEEDED AN ANTIBACTERIAL / CALL MD IF USING FOR MORE THAN 7 DAYS, # 28 Gm, 11 Refills, Maintenance, 11/09/22 15:57:00 EST, [facility], 7, APPLY SMALL AMOUNT T... Start [...] supp, 11 Refills, Maintenance, 12/16/22 13:35:00 EST, [facility], 175.2, cm, 07/27/22 11:37:00 EDT, Height [...] capsule, 11 Refills, Maintenance, 06/21/23 14:02:00 EDT, [facility], 30, TAKE 1 CAPSULE BY MOUTH [...] Stop 04/06/24 13:54:00 EDT, 04/05/23 13:54:00 EDT, [facility], 5, ONE... Start Date: 04/05/23 Stop Date: 04/06/24 Status: Ordered Ditropan XL 10 mg oral tablet, extended release 10, mg, 1, tablet, By Mouth, Daily, 0, 01/03/07 9:24:09, Print ANNE-MARIE Number, [id number], Constant Indicator Start Date: 01/03/07 Status: Ordered DOK 100 mg oral tablet See Instructions, TAKE 1 TABLET BY MOUTH TWICE DAILY (AM AND PM) (STOOL SOFTENER EQUIVALENT), # 60 tablet, 5 Refills, Maintenance, 02/02/23 15:38:00 EDT, [facility], 175.2, cm, 02/01/23 15:11:00EDT, Height Start [...] Instructions Replace Required Details, Route toPharmacy Electronically, [facility], 175.2, cm... Start Date: 04/09/20 Status: Ordered fit to pt fit to pt, See Instructions, # 1 units, Refills 0, Tot. Refills 0, Maintenance, rigid cervical collar. Fit to pt., 06/21/18 15:59:47 EDT, Compound Start Date: 06/21/18 Status: Ordered Flomax 0.4 mg oral capsule 0.4, mg, 1, capsule, By Mouth, Daily, 0, 0, 03/06/07 9:24:42, Print ANNE-MARIE Number, [phone], Constant Indicator Start Date: 01/03/07 Status: Ordered guaiFENesin 100 mg/5 mL oral liquid 10 mL, By Mouth, 4 times a day, PRN NEEDED FOR COUGH/NOTIFY MD IF NO RELIEF AFTER 48 HRS / DOSE =, GUAIFENESIN (TUSSIN MUCUS CONGEST 100MG/5ML) IC ROBAFEN., # 240 mL, 4 Refills, Maintenance, 07/12/23 14:12:00 EDT, [facility], 175.2, cm, ... Start Date: 07/12/23 [...] Gm, 11 Refills, Maintenance, 12/11/19 11:11:00 EST, [facility], APPLY TO EXTERNAL HEMMORRHOIDS TWICE DAILY PRN PER DR FREEMAN, 175.2, cm, 10/12/19 8:18:00 EST, Height,... Start Date: 12/11/19 Status: Ordered ibuprofen 400 mg oral tablet 400 mg, 1, tablet, By Mouth, 3 times a day, PRN, # 30 tablet, Refills 1, Tot. Refills 1, Maintenance, as needed for pain, 12/25/18 11:23:03 EST, Route to Pharmacy Electronically, [id number], [facility] Start Date: 12/25/18 Status: Ordered lactulose 10 gm/15 ml oral syrup = 20 Gm, By Mouth, Daily at bedtime, GIVE WITH., # 946 mL, 11 Refills, Maintenance, 09/27/23 9:40:00 EST, [facility], 31, TWO TABLESPOONFULS BY MOUTH DAILY [...] 03/08/23 11:54:00 EDT, Route to Pharmacy Electronically, [facility], Partial fill u... Start Date: 03/08/23 Stop Date: 03/08/24 Status: Ordered loratadine 10 mg oral tablet 1, tablet, By Mouth, Daily, PRN, # 30 tablet, Refills 11, Maintenance, NEEDED FOR ALLERGY SYMPTOMS WATERY, ITCHY RED EYES, SNEEZING FOR ALLERGIC RHINITIS, 08/30/23 16:24:00 EDT, Route to Pharmacy Electronically, [facility], 175.2, cm, 08/02/23... Start Date: 08/30/23 Status: Ordered Milk of Magnesia 8% oral suspension 30 mL, By Mouth, Daily at bedtime, FOR CONSTIPATION PIWA=1635 MG., # 900 mL, 5 Refills, Maintenance, 10/05/23 12:52:00 EST, [facility], 175.2, cm, 08/02/23 10:30:00 EDT, Height Start Date: 10/05/23 Status: Ordered omeprazole 40 mg oral enteric coated capsule See Instructions, TAKE 1 CAPSULE BY MOUTH DAILY FOR GERD IN AM MAY OPEN CAPSULE, # 30 capsule, 2 Refills, Maintenance, 07/25/23 20:17:00 EDT, [facility], 175.2, cm, 05/13/23 11:02:00 EDT, Height Start Date: 07/25/23 Status: Ordered pravastatin 40 mg oral tablet See Instructions, TAKE 1 TABLET BY MOUTH DAILY IN THE PM FOR HYPERLIPIDEMIA, # 30 tablet, 5 Refills, Maintenance, 05/19/23 0:31:00 EDT, [facility], 175.2, cm, 05/13/23 11:02:00 EDT, Height Start Date: 05/19/23 Status: Ordered Profola oral tablet 1 tablet, By Mouth, Daily, # 30 tablet, 11 Refills, Maintenance, 06/24/23 10:40:00 EDT, [facility], Partial fill upon patient request if [...] 1 Refills, Maintenance, 05/11/22 14:45:00 EDT, Cream, [facility], Partial fill upon patient request if [...] Confirmed Active UI (urinary incontinence) Confirmed Active 35212; repeat 2020 74419; repeat 2018 3egd 2012 barretts, repeat 2014 4egd 2010 positive barretts repeat 2011 5C2 6colonoscopy 2006 nl repeat 2016 7repeat 2024 87290 Social History Social History Type Response Smoking Status Never smoker entered on: 06/25/16 Sex Patient Care team information Care Team Personnel Name: Hannah Roque RN Position: [facility] RN Member Role: Primary Care Nurse Name: Reggie Godinez RN Position: S RN Member Role: Primary Care Nurse Name: Christiane Cedillo RN Position: S RN Member Role: Primary Care Nurse Name: Brandon Freeman MD Position: S Physician - Primary Care Member Role: PCP Address: Address: [address] [place] [id number] [place] Name: Janeen Hoskins RN Position: [facility] RN Member Role: Primary Care Nurse Name: Frantz Mi III, RN Position: [facility] RN Member Role: Primary Care Nurse Name: Cate Martel NP Position: Reference Physician Member Role: Primary Care Nurse Address: Address: [address] [place] [address]- Name: Fay Morton RN Position: [facility] RN Member Role: Primary Care Nurse Name: Massiel Lu RN Position: [facility] RN Member Role: Primary Care Nurse Name: Lurdes Mujica RN Position: [facility] RN Member Role: Primary Care Nurse Name: Brandie Horvath RN Position: [facility] [employer] Gauger Member Role: Primary Care Nurse Name: Claribel Howe RN Position: [facility] RN Member Role: Primary Care Nurse Care Team Related Persons Name: JOHAN PERKINS Name: DAWOOD DE LOS SANTOS Address: home [address] [place] [id number] Name: JENNIFER JUAREZ Address: home [address] [place] [address]
[2024-02-26 13:15] LABS: INTERNATIONAL NORM RATIO 1.1 (0.9-1.1); Prothrombin Time 12.8 SEC (11.1-13.3)
--- OUTSIDE RECORDS SUMMARY | 2024-02-26 13:15 | XMS_ITS | Continuity of Care Document ---
[facility] Address [address] [place] [address]- Care Team Providers Care Carpenter Assistant Name Role Phone La MADISON, Brandon Chamorro Primary Care Physician [phone] [facility]): 11[facility]22[facility]23 - 12/22/23 [facility] Adult [address] [place] [address]- Allergies, Adverse Reactions, Alerts Substance Reaction Severity Status azithromycin Active macrolide antibiotics Active Dust Active ketolides Active Immunizations Given and Recorded Vaccine Date Status Refusal Reason pneumococcal 20-valent conjugate vaccine 08/02/23 Given Influenza Virus Vaccine (oldterm) 07/25/23 Recorde d Influenza Virus Vaccine (oldterm) 08/31/20 Recorde d Influenza Virus Vaccine (oldterm) 1 07/18/09 Given Influenza Virus Vaccine (oldterm) 2 09/02/07 Given [id number] 12y+ bivalent booster vax 07/22/22 Recorded tetanus-diphtheria [...] GIVEN 5Admin Note: FLU CLINIC 6Admin Note: Last 2 Left [facility] VIS [id number] given 7Admin Note: given in clinic Medications acetaminophen 325 mg oral tablet 2, tablet, By Mouth, Every 6 hours, PRN, [id number]., # 60 tablet, Refills 0, Maintenance, NEEDED FOR FEVER>100.5 OR PAIN SHOWN BY FACIAL GRIMACE NOTIFY MD IF USED >, 09/13/23 10:09:00 EST, Route to Pharmacy Electronically, [facility], 175.2,... Start Date: 09/13/23 Stop Date: 09/16/23 Status: Ordered bacitracin zinc 500 units/g topical ointment See Instructions, APPLY SMALL AMOUNT TOPICALLY TO SUPERFICIAL WOUNDS 4 TIMES A DAY NEEDED AN ANTIBACTERIAL / CALL MD IF USING FOR MORE THAN 7 DAYS, # 28 Gm, 11 Refills, Maintenance, 11/09/22 15:57:00 EST, [facility], 7, APPLY SMALL AMOUNT T... Start [...] supp, 11 Refills, Maintenance, 12/16/22 13:35:00 EST, [facility], 175.2, cm, 07/27/22 11:37:00 EDT, Height [...] capsule, 11 Refills, Maintenance, 06/21/23 14:02:00 EDT, [facility], 30, TAKE 1 CAPSULE BY [...] Stop 04/06/24 13:54:00 EDT, 04/05/23 13:54:00 EDT, [facility], 5, ONE... Start Date: 04/05/23 Stop Date: 04/06/24 Status: Ordered Ditropan XL 10 mg oral tablet, extended release 10, mg, 1, tablet, By Mouth, Daily, 0, 01/03/07 9:24:09, Print ANNE-MARIE Number, [id number], Constant Indicator Start Date: 01/03/07 Status: Ordered DOK 100 mg oral tablet See Instructions, TAKE 1 TABLET BY MOUTH TWICE DAILY (AM AND PM) (STOOL SOFTENER EQUIVALENT), # 60 tablet, 5 Refills, Maintenance, 02/02/23 15:38:00 EDT, [facility], 175.2, cm, 02/01/23 15:11:00EDT, Height Start [...] Instructions Replace Required Details, Route toPharmacy Electronically, [facility], 175.2, cm... Start Date: 04/09/20 Status: Ordered fit to pt fit to pt, See Instructions, # 1 units, Refills 0, Tot. Refills 0, Maintenance, rigid cervical collar. Fit to pt., 06/21/18 15:59:47 EDT, Compound Start Date: 06/21/18 Status: Ordered Flomax 0.4 mg oral capsule 0.4, mg, 1, capsule, By Mouth, Daily, 0, 0, 03/06/07 9:24:42, Print ANNE-MARIE Number, [id number], Constant Indicator Start Date: 01/03/07 Status: Ordered [...] 12/25/18 11:23:03 EST, Route to Pharmacy Electronically, [id number], [facility] Start Date: 12/25/18 Status: Ordered lactulose 10 gm/15 ml oral syrup = 20 Gm, By Mouth, Daily at bedtime, GIVE WITH., # 946 mL, 11 Refills, Maintenance, 09/27/23 9:40:00 EST, [facility], 31, TWO TABLESPOONFULS BY MOUTH [...] 03/08/23 11:54:00 EDT, Route to Pharmacy Electronically, [facility], Partial fill u... Start Date: 03/08/23 Stop Date: 03/08/24 Status: Ordered loratadine 10 mg oral tablet 1, tablet, By Mouth, Daily, PRN, # 30 tablet, Refills 11, Maintenance, NEEDED FOR ALLERGY SYMPTOMS WATERY, ITCHY RED EYES, SNEEZING FOR ALLERGIC RHINITIS, 08/30/23 16:24:00 EDT, Route to Pharmacy Electronically, [facility], 175.2, cm, 08/02/23... Start Date: 08/30/23 Status: Ordered Milk of Magnesia 8% oral suspension 30 mL, By Mouth, Daily at bedtime, FOR CONSTIPATION KVXQ=1606 MG., # 900 mL, 5 Refills, Maintenance, 10/05/23 12:52:00 EST, [facility], 175.2, cm, 08/02/23 10:30:00 EDT, Height Start Date: 10/05/23 Status: Ordered omeprazole 40 mg oral enteric coated capsule See Instructions, TAKE 1 CAPSULE BY MOUTH DAILY FOR GERD IN AM MAY OPEN CAPSULE, # 30 capsule, 5 Refills, Maintenance, 10/26/23 8:21:00 EST, [facility], 175.2, cm, 08/02/23 10:30:00 EDT, Height Start Date: 10/26/23 Status: Ordered polyethylene glycol 3350 oral powder for reconstitution See Instructions, MIX 17GM WITH 8 OUNCES OF WATER OR JUICE DAILY AND TAKE BY MOUTH AT 5PM FOR CONSTIPATION, # 510 Gm, 5 Refills, Maintenance, 10/26/23 9:47:00 EST, [facility], 30, MIX 17GM WITH 8 OUNCES OF WATER OR JUICE DAILY AND TAKE BY MOUTH A... Start Date: 10/26/23 Status: Ordered pravastatin 40 mg oral tablet 1 tablet, By Mouth, Daily, IN THE PM FOR HYPERLIPIDEMIA., # 30 tablet, 5 Refills, Maintenance, 11/09/23 7:50:00 EST, [facility], 175.2, cm, 08/02/23 10:30:00 EDT, Height Start Date: 11/09/23 Status: Ordered Profola oral tablet 1 tablet, By Mouth, Daily, # 30 tablet, 11 Refills, Maintenance, 06/24/23 10:40:00 EDT, [facility], Partial fill upon patient request if [...] 1 Refills, Maintenance, 05/11/22 14:45:00 EDT, Cream, [facility], Partial fill upon patient request if [...] tablet, 5 Refills, Maintenance, 04/04/23 21:00:00 EDT, [facility], 30, TAKE 1 TABLET BY [...] Confirmed Active UI (urinary incontinence) Confirmed Active 26123; repeat 202015; repeat 2017 3egd 2011 barretts, repeat 2014 4egd 2009 positive barretts repeat 2012 5C2 6colonoscopy 2007 nl repeat 2017 7repeat 2025 [address]3844 Social History Social History Type Response Smoking [...] Primary Care Member Role: PCP Address: Address: [address] [place] [phone]- [place] Name: Janeen Hoskins RN Position: [facility] RN Member Role: Primary Care Nurse Name: Frantz Mi III, RN Position: [facility] RN Member Role: Primary Care Nurse Name: Tahmina LUZ, Cate Melgar Position: Reference Physician Member Role: Primary Care Nurse Address: Address: [address] [place] [phone]- Name: Massiel Lu RN Position: [facility] RN Member Role: Primary Care Nurse Name: Lurdes Mujica RN Position: [facility] RN Member Role: Primary Care Nurse Name: Brandie Horvath RN Position: [facility] Pan Greaser Member Role: Primary Care Nurse Name: Claribel Howe RN Position: [facility] RN Member Role: Primary Care Nurse Care Team Related Persons Name: JOHAN PERKINS Name: DAWOOD DE LOS SANTOS Address: home [address] [place] [id number] Name: JENNIFER JUAREZ Address: home [address] [place] [address]
--- OUTSIDE RECORDS SUMMARY | 2024-02-26 13:15 | XMS_ITS | Continuity of Care Document ---
[facility] Chace lt Address [address] [place] [address]- Care Team Providers Care Chain Sales Consultant Name Role Phone La MADISON, Brandon Chamorro Primary Care Physician [phone] [facility]counter [facility] Date[facility]s): 09/12/23 - 10/12/23 [facility] Adult [address] [place] [address]- Allergies, Adverse Reactions, Alerts Substance Reaction Severity Status azithromycin Active macrolide antibiotics Active Dust Active ketolides Active Immunizations Given and Recorded Vaccine Date Status Refusal Reason pneumococcal 20-valent conjugate vaccine 08/02/23 Given Influenza Virus Vaccine (oldterm) 07/25/23 Recorde d Influenza Virus Vaccine (oldterm) 08/31/20 Recorde d Influenza Virus Vaccine (oldterm) 1 07/18/09 Given Influenza Virus Vaccine (oldterm) 2 09/02/07 Given [id number] 12y+ bivalent booster vax 07/22/22 Recorded tetanus-diphtheria [...] GIVEN 5Admin Note: [facility] 6Admin Note: [employer] [facility] VIS [id number] given 7Admin Note: given in clinic Medications acetaminophen 325 mg oral tablet 2, tablet, By Mouth, Every 6 hours, PRN, [id number]., # 60 tablet, Refills 0, Maintenance, NEEDED FOR FEVER>100.5 OR PAIN SHOWN BY FACIAL GRIMACE NOTIFY MD IF USED >, 09/13/23 10:09:00 EST, Route to Pharmacy Electronically, [facility], 175.2,... Start Date: 09/13/23 Stop Date: 09/16/23 Status: Ordered bacitracin zinc 500 units/g topical ointment See Instructions, APPLY SMALL AMOUNT TOPICALLY TO SUPERFICIAL WOUNDS 4 TIMES A DAY NEEDED AN ANTIBACTERIAL / CALL MD IF USING FOR MORE THAN 7 DAYS, # 28 Gm, 11 Refills, Maintenance, 11/09/22 15:57:00 EST, [facility], 7, APPLY SMALL AMOUNT T... Start [...] supp, 11 Refills, Maintenance, 12/16/22 13:35:00 EST, [facility], 175.2, cm, 07/27/22 11:37:00 EDT, Height [...] capsule, 11 Refills, Maintenance, 06/21/23 14:02:00 EDT, [facility], 30, TAKE 1 CAPSULE BY MOUTH [...] Stop 04/06/24 13:54:00 EDT, 04/05/23 13:54:00 EDT, [facility], 5, ONE... Start Date: 04/05/23 Stop Date: 04/06/24 Status: Ordered Ditropan XL 10 mg oral tablet, extended release 10, mg, 1, tablet, By Mouth, Daily, 0, 01/03/07 9:24:09, Print ANNE-MARIE Number, [id number], Constant Indicator Start Date: 01/03/07 Status: Ordered DOK 100 mg oral tablet See Instructions, TAKE 1 TABLET BY MOUTH TWICE DAILY (AM AND PM) (STOOL SOFTENER EQUIVALENT), # 60 tablet, 5 Refills, Maintenance, 02/02/23 15:38:00 EDT, [facility], 175.2, cm, 02/01/23 15:11:00EDT, Height Start [...] Instructions Replace Required Details, Route toPharmacy Electronically, [facility], 175.2, cm... Start Date: 04/09/20 Status: Ordered fit to pt fit to pt, See Instructions, # 1 units, Refills 0, Tot. Refills 0, Maintenance, rigid cervical collar. Fit to pt., 06/21/18 15:59:47 EDT, Compound Start Date: 06/21/18 Status: Ordered Flomax 0.4 mg oral capsule 0.4, mg, 1, capsule, By Mouth, Daily, 0, 0, 03/06/07 9:24:42, Print ANNE-MARIE Number, [id number], Constant Indicator Start Date: 01/03/07 Status: Ordered guaiFENesin 100 mg/5 mL oral liquid 10 mL, By Mouth, 4 times a day, PRN NEEDED FOR COUGH/NOTIFY MD IF NO RELIEF AFTER 48 HRS / DOSE =, GUAIFENESIN (TUSSIN MUCUS CONGEST 100MG/5ML) IC ROBAFEN., # 240 mL, 4 Refills, Maintenance, 07/12/23 14:12:00 EDT, [facility], 175.2, cm, ... Start Date: 07/12/23 [...] Gm, 11 Refills, Maintenance, 12/11/19 11:11:00 EST, [facility], APPLY TO EXTERNAL HEMMORRHOIDS TWICE DAILY PRN PER DR FREEMAN, 175.2, cm, 10/12/19 8:18:00 EST, Height,... Start Date: 12/11/19 Status: Ordered ibuprofen 400 mg oral tablet 400 mg, 1, tablet, By Mouth, 3 times a day, PRN, # 30 tablet, Refills 1, Tot. Refills 1, Maintenance, as needed for pain, 12/25/18 11:23:03 EST, Route to Pharmacy Electronically, [id number], [facility] Start Date: 12/25/18 Status: Ordered lactulose 10 gm/15 ml oral syrup = 20 Gm, By Mouth, Daily at bedtime, GIVE WITH., # 946 mL, 11 Refills, Maintenance, 09/27/23 9:40:00 EST, [facility], 31, TWO TABLESPOONFULS BY MOUTH DAILY [...] 03/08/23 11:54:00 EDT, Route to Pharmacy Electronically, [facility], Partial fill u... Start Date: 03/08/23 Stop Date: 03/08/24 Status: Ordered loratadine 10 mg oral tablet 1, tablet, By Mouth, Daily, PRN, # 30 tablet, Refills 11, Maintenance, NEEDED FOR ALLERGY SYMPTOMS WATERY, ITCHY RED EYES, SNEEZING FOR ALLERGIC RHINITIS, 08/30/23 16:24:00 EDT, Route to Pharmacy Electronically, [facility], 175.2, cm, 08/02/23... Start Date: 08/30/23 Status: Ordered Milk of Magnesia 8% oral suspension 30 mL, By Mouth, Daily at bedtime, FOR CONSTIPATION NKMN=4002 MG., # 900 mL, 5 Refills, Maintenance, 10/05/23 12:52:00 EST, [facility], 175.2, cm, 08/02/23 10:30:00 EDT, Height Start Date: 10/05/23 Status: Ordered omeprazole 40 mg oral enteric coated capsule See Instructions, TAKE 1 CAPSULE BY MOUTH DAILY FOR GERD IN AM MAY OPEN CAPSULE, # 30 capsule, 2 Refills, Maintenance, 07/25/23 20:17:00 EDT, [facility], 175.2, cm, 05/13/23 11:02:00 EDT, Height Start Date: 07/25/23 Status: Ordered pravastatin 40 mg oral tablet See Instructions, TAKE 1 TABLET BY MOUTH DAILY IN THE PM FOR HYPERLIPIDEMIA, # 30 tablet, 5 Refills, Maintenance, 05/19/23 0:31:00 EDT, [facility], 175.2, cm, 05/13/23 11:02:00 EDT, Height Start Date: 05/19/23 Status: Ordered Profola oral tablet 1 tablet, By Mouth, Daily, # 30 tablet, 11 Refills, Maintenance, 06/24/23 10:40:00 EDT, [facility], Partial fill upon patient request if [...] 1 Refills, Maintenance, 05/11/22 14:45:00 EDT, Cream, [facility], Partial fill upon patient request if [...] Confirmed Active UI (urinary incontinence) Confirmed Active 64267; repeat 2020 33951; repeat 2018 3egd 2012 barretts, repeat 2014 4egd 2010 positive barretts repeat 2011 5C2 6colonoscopy 2006 nl repeat 2016 7repeat 2024 [id number] Social History Social History Type Response Smoking Status Never smoker entered on: 06/25/16 Sex Patient Care team information Care Team Personnel Name: Hannah Roque RN Position: [facility] RN Member Role: Primary Care Nurse Name: Reggie Godinez RN Position: S RN Member Role: Primary Care Nurse Name: Christiane Cedillo RN Position: S RN Member Role: Primary Care Nurse Name: Brandon Freeman MD Position: S Physician - Primary Care Member Role: PCP Address: Address: [address] [place] [id number] Name: Janeen Hoskins RN Position: [facility] RN Member Role: Primary Care Nurse Name: Frantz Mi III, RN Position: [facility] RN Member Role: Primary Care Nurse Name: Cate Martel NP Position: Reference Physician Member Role: Primary Care Nurse Address: Address: [address] [place] [address]- Name: Fay Morton NP Position: [facility] PCO Associate Professional Member Role: Primary Care Nurse Name: Massiel Lu RN Position: [facility] RN Member Role: Primary Care Nurse Name: Lurdes Mujica RN Position: [facility] RN Member Role: Primary Care Nurse Name: Brandie Horvath RN Position: [facility] Tube Washer Member Role: Primary Care Nurse Name: Claribel Howe RN Position: [facility] RN Member Role: Primary Care Nurse Care Team Related Persons Name: JOHAN PERKINS Name: DAWOOD DE LOS SANTOS Address: home [address] [place] [id number] Name: JENNIFER JUAREZ Address: home [address] [place] [id number]
--- OUTSIDE RECORDS SUMMARY | 2024-02-26 13:15 | XMS_ITS | Continuity of Care Document ---
Author Organization [facility] Chace lt Address [address] [place] [address]- Care Team Providers Care Highway Design Engineer Name Role Phone La MADISON, Brandon Chamorro Primary Care Physician [phone] [facility] Date[facility]): 06[facility]23[facility]23 - 07/23/23 [facility] Adult [address] [place] [address]- Allergies, Adverse Reactions, Alerts Substance Reaction Severity Status azithromycin Active macrolide antibiotics Active Dust Active ketolides Active Immunizations Given and Recorded Vaccine Date Status Refusal Reason [id number] 12y+ bivalent booster vax 07/22/22 Recorded tetanus-diphtheria [...] clinic 5Admin Note: [facility] 6Admin Note: [employer] [facility] VIS [id number] given 7Admin Note: given in clinic Medications acetaminophen 325 mg oral tablet 2, tablet, By Mouth, Every 6 hours, PRN, [id number]., # 60 tablet, Refills 0, Maintenance, NEEDED FOR FEVER>100.5 OR PAIN SHOWN BY FACIAL GRIMACE NOTIFY MD IF USED >, 11/12/22 9:30:00 EST, Route to Pharmacy Electronically, [facility], 175.2, c... Start Date: 11/12/22 Stop Date: 11/15/22 Status: Ordered bacitracin zinc 500 units/g topical ointment See Instructions, APPLY SMALL AMOUNT TOPICALLY TO SUPERFICIAL WOUNDS 4 TIMES A DAY NEEDED AN ANTIBACTERIAL / CALL MD IF USING FOR MORE THAN 7 DAYS, # 28 Gm, 11 Refills, Maintenance, 11/09/22 15:57:00 EST, [facility], 7, APPLY SMALL AMOUNT T... Start [...] supp, 11 Refills, Maintenance, 12/16/22 13:35:00 EST, [facility], 175.2, cm, 07/27/22 11:37:00 EDT, Height [...] capsule, 11 Refills, Maintenance, 06/21/23 14:02:00 EDT, [facility], 30, TAKE 1 CAPSULE BY MOUTH [...] Stop 04/06/24 13:54:00 EDT, 04/05/23 13:54:00 EDT, [facility], 5, ONE... Start Date: 04/05/23 Stop Date: 04/06/24 Status: Ordered Ditropan XL 10 mg oral tablet, extended release 10, mg, 1, tablet, By Mouth, Daily, 0, 01/03/07 9:24:09, Print ANNE-MARIE Number, [id number], Constant Indicator Start Date: 01/03/07 Status: Ordered DOK 100 mg oral tablet See Instructions, TAKE 1 TABLET BY MOUTH TWICE DAILY (AM AND PM) (STOOL SOFTENER EQUIVALENT), # 60 tablet, 5 Refills, Maintenance, 02/02/23 15:38:00 EDT, [facility], 175.2, cm, 02/01/23 15:11:00EDT, Height Start [...] Instructions Replace Required Details, Route toPharmacy Electronically, [facility], 175.2, cm... Start Date: 04/09/20 Status: Ordered fit to pt fit to pt, See Instructions, # 1 units, Refills 0, Tot. Refills 0, Maintenance, rigid cervical collar. Fit to pt., 06/21/18 15:59:47 EDT, Compound Start Date: 06/21/18 Status: Ordered Flomax 0.4 mg oral capsule 0.4, mg, 1, capsule, By Mouth, Daily, 0, 0, 01/03/07 9:24:42, Print ANNE-MARIE Number, [id number], Constant Indicator Start Date: 01/03/07 Status: Ordered guaiFENesin 100 mg/5 mL oral liquid 10 mL, By Mouth, 4 times a day, PRN NEEDED FOR COUGH/NOTIFY MD IF NO RELIEF AFTER 48 HRS / DOSE =, GUAIFENESIN (TUSSIN MUCUS CONGEST 100MG/5ML) IC ROBAFEN., # 240 mL, 4 Refills, Maintenance, 07/12/23 14:12:00 EDT, [facility], 175.2, cm, 05/13/... Start Date: 07/12/23 Status: Ordered hydrochlorothiazide 25 mg oral tablet 1, tablet, By Mouth, Daily in AM, FOR HTN/MONITOR BP/IF SYSTOLIC MORE THAN 160, DIASTOLIC MORE [id number], SYSTOLIC LESS THAN 90, OR DIASTOLIC LESS THAN 50 CALLMD., # 90 tablet, Refills 1, Tot. Refills1, Maintenance, 03/15/23 14:21:00 EDT, [facility] to [facility]... Start Date: 03/15/23 Status: Ordered HYDROCORTISONE [...] Gm, 11 Refills, Maintenance, 12/11/19 11:11:00 EST, [facility], APPLY TO EXTERNAL HEMMORRHOIDS TWICE DAILY PRN PER DR FREEMAN, 175.2, cm, 10/12/19 8:18:00 EST, Height,... Start Date: 12/11/19 Status: Ordered ibuprofen 400 mg oral tablet 400 mg, 1, tablet, By Mouth, 3 times a day, PRN, # 30 tablet, Refills 1, Tot. Refills 1, Maintenance, as needed for pain, 12/25/18 11:23:03 EST, Route to Pharmacy Electronically, [id number], [facility] Start Date: 12/25/18 Status: Ordered lactulose 10 gm/15 ml oral syrup = 20 Gm, By Mouth, Daily at bedtime, # 946 mL, 11 Refills, Maintenance, 09/01/22 7:18:00 EDT, [facility], 31, 20 Gm By Mouth Daily [...] 03/08/23 11:54:00 EDT, Route to Pharmacy Electronically, [facility], Partial fill u... Start Date: 03/08/23 Stop Date: 03/08/24 Status: Ordered loratadine 10 mg oral tablet 1, tablet, By Mouth, Daily, PRN, # 30 tablet, Refills 11, NEEDED FOR ALLERGY SYMPTOMS WATERY, ITCHY RED EYES, SNEEZING FOR ALLERGIC RHINITIS, Route to Pharmacy Electronically, [facility], 175.2, cm, 07/20/21 10:29:00 EDT, Height Start Date: 11/10/21 Status: Ordered Milk of Magnesia 8% oral suspension 30 mL, By Mouth, Daily at bedtime, FOR CONSTIPATION XFDQ=0912 MG., # 900 mL, 5 Refills, Maintenance, 04/04/23 21:00:00 EDT, [facility], 175.2, cm, 02/01/23 15:11:00 EDT, Height Start Date: 04/04/23 Status: Ordered omeprazole 40 mg oral enteric coated capsule 1 capsule, By Mouth, Daily in AM, # 30 capsule, 5 Refills, Maintenance, 02/01/23 7:37:00 EDT, [facility], 175.2, cm, 07/27/22 11:37:00 EDT, Height Start Date: 02/01/23 Status: Ordered polyethylene glycol 3350 oral powder for reconstitution See Instructions, MIX 17GM WITH 8 OUNCES OF WATER OR JUICE DAILY AT 5PM FOR CONSTIPATION (POLYETHYLENE GLYCOL), # 510 Gm, 11 Refills, Physician Stop 10/07/23 11:17:00 EST, 10/07/22 11:17:00 EST, [facility], 30, MIX 17GM WITH 8 OUNCES OF WATER OR... Start Date: 10/07/22 Stop Date: 10/07/23 Status: Ordered pravastatin 40 mg oral tablet See Instructions, TAKE 1 TABLET BY MOUTH DAILY IN THE PM FOR HYPERLIPIDEMIA, # 30 tablet, 5 Refills, Maintenance, 05/19/23 0:31:00 EDT, [facility], 175.2, cm, 05/13/23 11:02:00 EDT, Height Start Date: 05/19/23 Status: Ordered Profola oral tablet 1 tablet, By Mouth, Daily, # 30 tablet, 11 Refills, Maintenance, 06/24/23 10:40:00 EDT, [facility], Partial fill upon patient request if [...] 1 Refills, Maintenance, 05/11/22 14:45:00 EDT, Cream, [facility], Partial fill upon patient request if [...] Confirmed Active UI (urinary incontinence) Confirmed Active 36475; repeat 202015; repeat 2018 3egd 2012 barretts, repeat 2014 4egd 2010 positive barretts repeat 2012 5C2 6colonoscopy 2007 nl repeat 2016 7repeat 2024 [id number] Social History Social History Type Response Smoking Status Never smoker entered on: 06/25/16 Sex Patient Care team information Care Team Personnel Name: Hannah Roque RN Position: [facility] RN Member Role: Primary Care Nurse Name: Reggie Godinez RN Position: S RN Member Role: Primary Care Nurse Name: Christiane Cedillo RN Position: [facility] RN Member Role: Primary Care Nurse Name: Brandon Freeman MD Position: [facility] Physician - Primary Care Member Role: PCP Address: Address: [address] [place] [address]- Name: Janeen Hoskins RN Position: [facility] RN Member Role: Primary Care Nurse Name: Cydney Mckinney RN Position: [facility] RN Member Role: Primary Care Nurse Name: Hiwot CRAVEN RN, Frantz Position: S RN Member Role: Primary Care Nurse Name: Tahmina BIT BENDERCate Position: Reference Physician Member Role: Primary Care Nurse Address: Address: [address] [place] [id number]- Name: Fay Morton RN Position: [facility] RN Member Role: Primary Care Nurse Name: Massiel Lu RN Position: [facility] RN Member Role: Primary Care Nurse Name: Lurdes Mujica RN Position: [facility] RN Member Role: Primary Care Nurse Name: Brandie Horvath RN Position: [facility] Curriculum Development Coordinator Member Role: Primary Care Nurse Name: Claribel Howe RN Position: [facility] RN Member Role: Primary Care Nurse Care Team Related Persons Name: JOHAN PERKINS Name: DAWOOD DE LOS SANTOS Address: home [address] [place] [id number] Name: JENNIFER JUAREZ Address: home [address] [place] [id number]
--- OUTSIDE RECORDS SUMMARY | 2024-02-26 13:15 | XMS_ITS | Continuity of Care Document ---
[facility] Address [address] [place] [address]- Care Team Providers Care Motor Home Electrical Foreman Name Role Phone La MADISON, Brandon Chamorro Primary Care Physician [facility] - 10/08/23 [facility] [place] Adult [address] [place] [address]- Allergies, Adverse Reactions, Alerts Substance Reaction Severity Status azithromycin Active macrolide antibiotics Active Dust Active ketolides Active Immunizations Given and Recorded Vaccine Date Status Refusal Reason pneumococcal 20-valent conjugate vaccine 08/02/23 Given Influenza Virus Vaccine (oldterm) 07/25/23 Recorde d Influenza Virus Vaccine (oldterm) 08/31/20 Recorde d Influenza Virus Vaccine (oldterm) 1 07/18/09 Given Influenza Virus Vaccine (oldterm) 2 09/02/07 Given [id number] 12y+ bivalent booster vax 07/22/22 Recorded tetanus-diphtheria [...] GIVEN 5Admin Note: [facility]IN[facility] 6Admin Note: [employer] [facility] VIS [id number] given 7Admin Note: given in clinic Medications acetaminophen 325 mg oral tablet 2, tablet, By Mouth, Every 6 hours, PRN, [id number]., # 60 tablet, Refills 0, Maintenance, NEEDED FOR FEVER>100.5 OR PAIN SHOWN BY FACIAL GRIMACE NOTIFY MD IF USED >, 09/13/23 10:09:00 EST, Route to Pharmacy Electronically, [facility], 175.2,... Start Date: 09/13/23 Stop Date: 09/16/23 Status: Ordered bacitracin zinc 500 units/g topical ointment See Instructions, APPLY SMALL AMOUNT TOPICALLY TO SUPERFICIAL WOUNDS 4 TIMES A DAY NEEDED AN ANTIBACTERIAL / CALL MD IF USING FOR MORE THAN 7 DAYS, # 28 Gm, 11 Refills, Maintenance, 11/09/22 15:57:00 EST, [facility], 7, APPLY SMALL AMOUNT T... Start [...] supp, 11 Refills, Maintenance, 12/16/22 13:35:00 EST, [facility], 175.2, cm, 07/27/22 11:37:00 EDT, Height [...] capsule, 11 Refills, Maintenance, 06/21/23 14:02:00 EDT, [facility], 30, TAKE 1 CAPSULE BY MOUTH [...] Stop 04/06/24 13:54:00 EDT, 04/05/23 13:54:00 EDT, [facility], 5, ONE... Start Date: 04/05/23 Stop Date: 04/06/24 Status: Ordered Ditropan XL 10 mg oral tablet, extended release 10, mg, 1, tablet, By Mouth, Daily, 0, 01/03/07 9:24:09, Print ANNE-MARIE Number, [id number], Constant Indicator Start Date: 01/03/07 Status: Ordered DOK 100 mg oral tablet See Instructions, TAKE 1 TABLET BY MOUTH TWICE DAILY (AM AND PM) (STOOL SOFTENER EQUIVALENT), # 60 tablet, 5 Refills, Maintenance, 02/02/23 15:38:00 EDT, [facility], 175.2, cm, 02/01/23 15:11:00EDT, Height Start [...] Instructions Replace Required Details, Route toPharmacy Electronically, [facility], 175.2, cm... Start Date: 04/09/20 Status: Ordered fit to pt fit to pt, See Instructions, # 1 units, Refills 0, Tot. Refills 0, Maintenance, rigid cervical collar. Fit to pt., 06/21/18 15:59:47 EDT, Compound Start Date: 06/21/18 Status: Ordered Flomax 0.4 mg oral capsule 0.4, mg, 1, capsule, By Mouth, Daily, 0, 0, 03/06/07 9:24:42, Print ANNE-MARIE Number, [id number], Constant Indicator Start Date: 01/03/07 Status: Ordered guaiFENesin 100 mg/5 mL oral liquid 10 mL, By Mouth, 4 times a day, PRN NEEDED FOR COUGH/NOTIFY MD IF NO RELIEF AFTER 48 HRS / DOSE =, GUAIFENESIN (TUSSIN MUCUS CONGEST 100MG/5ML) IC ROBAFEN., # 240 mL, 4 Refills, Maintenance, 07/12/23 14:12:00 EDT, [facility], 175.2, cm, ... Start Date: 07/12/23 [...] Gm, 11 Refills, Maintenance, 12/11/19 11:11:00 EST, [facility], APPLY TO EXTERNAL HEMMORRHOIDS TWICE DAILY PRN PER DR FREEMAN, 175.2, cm, 10/12/19 8:18:00 EST, Height,... Start Date: 12/11/19 Status: Ordered ibuprofen 400 mg oral tablet 400 mg, 1, tablet, By Mouth, 3 times a day, PRN, # 30 tablet, Refills 1, Tot. Refills 1, Maintenance, as needed for pain, 12/25/18 11:23:03 EST, Route to Pharmacy Electronically, [id number], [facility] Start Date: 12/25/18 Status: Ordered lactulose 10 gm/15 ml oral syrup = 20 Gm, By Mouth, Daily at bedtime, GIVE WITH., # 946 mL, 11 Refills, Maintenance, 09/27/23 9:40:00 EST, [facility], 31, TWO TABLESPOONFULS BY MOUTH DAILY [...] 03/08/23 11:54:00 EDT, Route to Pharmacy Electronically, [facility], Partial fill u... Start Date: 03/08/23 Stop Date: 03/08/24 Status: Ordered loratadine 10 mg oral tablet 1, tablet, By Mouth, Daily, PRN, # 30 tablet, Refills 11, Maintenance, NEEDED FOR ALLERGY SYMPTOMS WATERY, ITCHY RED EYES, SNEEZING FOR ALLERGIC RHINITIS, 08/30/23 16:24:00 EDT, Route to Pharmacy Electronically, [facility], 175.2, cm, 08/02/23... Start Date: 08/30/23 Status: Ordered Milk of Magnesia 8% oral suspension 30 mL, By Mouth, Daily at bedtime, FOR CONSTIPATION UZPI=5206 MG., # 900 mL, 5 Refills, Maintenance, 10/05/23 12:52:00 EST, [facility], 175.2, cm, 08/02/23 10:30:00 EDT, Height Start Date: 10/05/23 Status: Ordered omeprazole 40 mg oral enteric coated capsule See Instructions, TAKE 1 CAPSULE BY MOUTH DAILY FOR GERD IN AM MAY OPEN CAPSULE, # 30 capsule, 2 Refills, Maintenance, 07/25/23 20:17:00 EDT, [facility], 175.2, cm, 05/13/23 11:02:00 EDT, Height Start Date: 07/25/23 Status: Ordered pravastatin 40 mg oral tablet See Instructions, TAKE 1 TABLET BY MOUTH DAILY IN THE PM FOR HYPERLIPIDEMIA, # 30 tablet, 5 Refills, Maintenance, 05/19/23 0:31:00 EDT, [facility], 175.2, cm, 05/13/23 11:02:00 EDT, Height Start Date: 05/19/23 Status: Ordered Profola oral tablet 1 tablet, By Mouth, Daily, # 30 tablet, 11 Refills, Maintenance, 06/24/23 10:40:00 EDT, [facility], Partial fill upon patient request if [...] 1 Refills, Maintenance, 05/11/22 14:45:00 EDT, Cream, [facility], Partial fill upon patient request if [...] Confirmed Active UI (urinary incontinence) Confirmed Active 85856; repeat 2020 07651; repeat 2018 3egd 2012 barretts, repeat 2014 4egd 2010 positive barretts repeat 2011 5C2 6colonoscopy 2006 nl repeat 2016 7repeat 2024 [id number] Social History Social History Type Response Smoking Status Never smoker entered on: 06/25/16 Sex Patient Care team information Care Team Personnel Name: Hannah Roque RN Position: [facility] RN Member Role: Primary Care Nurse Name: Reggie Godinez RN Position: S RN Member Role: Primary Care Nurse Name: Christiane Cedillo RN Position: S RN Member Role: Primary Care Nurse Name: Brandon Freeman MD Position: S Physician - Primary Care Member Role: PCP Address: Address: [address] [place] [id number] Name: Janeen Hoskins RN Position: [facility] RN Member Role: Primary Care Nurse Name: Frantz Mi III, RN Position: [facility] RN Member Role: Primary Care Nurse Name: Cate Martel NP Position: Reference Physician Member Role: Primary Care Nurse Address: Address: [address] [place] [address]- Name: Fay Morton RN Position: [facility] RN Member Role: Primary Care Nurse Name: Massiel Lu RN Position: [facility] RN Member Role: Primary Care Nurse Name: Lurdes Mujica RN Position: [facility] RN Member Role: Primary Care Nurse Name: Brandie Horvath RN Position: [facility] Director Of Scientific Research Member Role: Primary Care Nurse Name: Claribel Howe RN Position: [facility] RN Member Role: Primary Care Nurse Care Team Related Persons Name: JOHAN PERKINS Name: DAWOOD DE LOS SANTOS Address: home [address] [place] [id number] Name: JENNIFER JUAREZ Address: home [address] [place] [address]
--- OUTSIDE RECORDS SUMMARY | 2024-02-26 13:15 | XMS_ITS | Continuity of Care Document ---
Author Organization [facility], [place], operated [facility]ace lt Address [address] [place] [address]- Care Team Providers Care Cook Helper Pastry Name Role Phone La MADIOSN, Brandon Chamorro Primary Care Physician [facility] Date[facility]): 07/25/23 - 08/24/23 [facility], [place], [facility] Adult [address] [place] [address]- Allergies, Adverse Reactions, Alerts Substance Reaction Severity Status azithromycin Active macrolide antibiotics Active ketolides Active Dust Active Immunizations Given and Recorded Vaccine Date Status Refusal Reason pneumococcal 20-valent conjugate vaccine 08/02/23 Given Influenza Virus Vaccine (oldterm) 07/25/23 Recorde d Influenza Virus Vaccine (oldterm) 08/31/20 Recorde d Influenza Virus Vaccine (oldterm) 1 07/18/09 Given Influenza Virus Vaccine (oldterm) 2 09/02/07 Given [id number] 12y+ bivalent booster vax 07/22/22 Recorded tetanus-diphtheria [...] GIVEN 5Admin Note: [facility] 6Admin Note: [facility] VIS [id number] given 7Admin Note: given in clinic Medications acetaminophen 325 mg oral tablet 2, tablet, By Mouth, Every 6 hours, PRN, [id number]., # 60 tablet, Refills 0, Maintenance, NEEDED FOR FEVER>100.5 OR PAIN SHOWN BY FACIAL GRIMACE NOTIFY MD IF USED >, 11/12/22 9:30:00 EST, Route to Pharmacy Electronically, [facility], 175.2, c... Start Date: 11/12/22 Stop Date: 11/15/22 Status: Ordered bacitracin zinc 500 units/g topical ointment See Instructions, APPLY SMALL AMOUNT TOPICALLY TO SUPERFICIAL WOUNDS 4 TIMES A DAY NEEDED AN ANTIBACTERIAL / CALL MD IF USING FOR MORE THAN 7 DAYS, # 28 Gm, 11 Refills, Maintenance, 11/09/22 15:57:00 EST, [facility], 7, APPLY SMALL AMOUNT T... Start [...] supp, 11 Refills, Maintenance, 12/16/22 13:35:00 EST, [facility], 175.2, cm, 07/27/22 11:37:00 EDT, Height [...] capsule, 11 Refills, Maintenance, 06/21/23 14:02:00 EDT, [facility], 30, TAKE 1 CAPSULE BY MOUTH [...] Stop 04/06/24 13:54:00 EDT, 04/05/23 13:54:00 EDT, [facility], 5, ONE... Start Date: 04/05/23 Stop Date: 04/06/24 Status: Ordered Ditropan XL 10 mg oral tablet, extended release 10, mg, 1, tablet, By Mouth, Daily, 0, 01/03/07 9:24:09, Print ANNE-MARIE Number, [id number], Constant Indicator Start Date: 01/03/07 Status: Ordered DOK 100 mg oral tablet See Instructions, TAKE 1 TABLET BY MOUTH TWICE DAILY (AM AND PM) (STOOL SOFTENER EQUIVALENT), # 60 tablet, 5 Refills, Maintenance, 02/02/23 15:38:00 EDT, [facility], 175.2, cm, 02/01/23 15:11:00EDT, Height Start [...] Instructions Replace Required Details, Route toPharmacy Electronically, [facility], 175.2, cm... Start Date: 04/09/20 Status: Ordered fit to pt fit to pt, See Instructions, # 1 units, Refills 0, Tot. Refills 0, Maintenance, rigid cervical collar. Fit to pt., 06/21/18 15:59:47 EDT, Compound Start Date: 06/21/18 Status: Ordered Flomax 0.4 mg oral capsule 0.4, mg, 1, capsule, By Mouth, Daily, 0, 0, 01/03/07 9:24:42, Print ANNE-MARIE Number, [id number], Constant Indicator Start Date: 01/03/07 Status: Ordered guaiFENesin 100 mg/5 mL oral liquid 10 mL, By Mouth, 4 times a day, PRN NEEDED FOR COUGH/NOTIFY MD IF NO RELIEF AFTER 48 HRS / DOSE =, GUAIFENESIN (TUSSIN MUCUS CONGEST 100MG/5ML) IC ROBAFEN., # 240 mL, 4 Refills, Maintenance, 07/12/23 14:12:00 EDT, [facility], 175.2, cm, ... Start Date: 07/12/23 Status: Ordered hydrochlorothiazide 25 mg oral tablet 1, tablet, By Mouth, Daily in AM, FOR HTN/MONITOR BP/IF SYSTOLIC MORE THAN 160, DIASTOLIC MORE [id number], SYSTOLIC LESS THAN 90, OR DIASTOLIC LESS THAN 50 CALLMD., # 90 tablet, Refills 1, Tot. Refills1, Maintenance, 03/15/23 14:21:00 EDT, [facility] Start Date: 03/15/23 Status: Ordered HYDROCORTISONE 1% [...] 12/25/18 11:23:03 EST, Route to Pharmacy Electronically, [id number], [facility] Start Date: 12/25/18 Status: Ordered lactulose 10 gm/15 ml oral syrup = 20 Gm, By Mouth, Daily at bedtime, # 946 mL, 11 Refills, Maintenance, 09/01/22 7:18:00 EDT, [facility], 31, 20 Gm By Mouth Daily [...] 03/08/23 11:54:00 EDT, Route to Pharmacy Electronically, [facility], Partial fill u... Start Date: 03/08/23 Stop Date: 03/08/24 Status: Ordered loratadine 10 mg oral tablet 1, tablet, By Mouth, Daily, PRN, # 30 tablet, Refills 11, NEEDED FOR ALLERGY SYMPTOMS WATERY, ITCHY RED EYES, SNEEZING FOR ALLERGIC RHINITIS, Route to Pharmacy Electronically, [facility], 175.2, cm, 07/20/21 10:29:00 EDT, Height Start Date: 11/10/21 Status: Ordered Milk of Magnesia 8% oral suspension 30 mL, By Mouth, Daily at bedtime, FOR CONSTIPATION MDNQ=9129 MG., # 900 mL, 5 Refills, Maintenance, 04/04/23 21:00:00 EDT, [facility], 175.2, cm, 02/01/23 15:11:00 EDT, Height Start Date: 04/04/23 Status: Ordered omeprazole 40 mg oral enteric coated capsule See Instructions, TAKE 1 CAPSULE BY MOUTH DAILY FOR GERD IN AM MAY OPEN CAPSULE, # 30 capsule, 2 Refills, Maintenance, 07/25/23 20:17:00 EDT, [facility], 175.2, cm, 05/13/23 11:02:00 EDT, Height Start Date: 07/25/23 Status: Ordered polyethylene glycol 3350 oral powder for reconstitution See Instructions, MIX 17GM WITH 8 OUNCES OF WATER OR JUICE DAILY AT 5PM FOR CONSTIPATION (POLYETHYLENE GLYCOL), # 510 Gm, 11 Refills, Physician Stop 10/07/23 11:17:00 EST, 10/07/22 11:17:00 EST, [facility], 30, MIX 17GM WITH 8 OUNCES OF WATER OR... Start Date: 10/07/22 Stop Date: 10/07/23 Status: Ordered pravastatin 40 mg oral tablet See Instructions, TAKE 1 TABLET BY MOUTH DAILY IN THE PM FOR HYPERLIPIDEMIA, # 30 tablet, 5 Refills, Maintenance, 05/19/23 0:31:00 EDT, [facility], 175.2, cm, 05/13/23 11:02:00 EDT, Height Start Date: 05/19/23 Status: Ordered Profola oral tablet 1 tablet, By Mouth, Daily, # 30 tablet, 11 Refills, Maintenance, 06/24/23 10:40:00 EDT, [facility], Partial fill upon patient request if [...] 1 Refills, Maintenance, 05/11/22 14:45:00 EDT, Cream, [facility], Partial fill upon patient request if [...] tablet, 5 Refills, Maintenance, 04/04/23 21:00:00 EDT, [facility], 30, TAKE 1 TABLET BY MOUTH [...] Confirmed Active UI (urinary incontinence) Confirmed Active 86307; repeat 2020; repeat 2017 3egd 2011 barretts, repeat 2014 4egd 2009 positive barretts repeat 2011 5C2 6colonoscopy 2006 nl repeat 2016 7repeat 2024 02513 Social History Social History Type Response Smoking Status Never smoker entered on: 06/25/16 Sex Patient Care team information Care Team Personnel Name: Hannah Roque RN Position: [facility] RN Member Role: Primary Care Nurse Name: Herbert RNReggie Position: [facility] RN Member Role: Primary Care Nurse Name: Christiane Cedillo RN Position: [facility] RN Member Role: Primary Care Nurse Name: Brandon Freeman MD Position: [facility] Physician - Primary Care Member Role: PCP Address: Address: [address] [place] [id number]- [place] Name: Janeen Hoskins RN Position: [facility] RN Member Role: Primary Care Nurse Name: Frantz Mi III, RN Position: [facility] RN Member Role: Primary Care Nurse Name: Tahmina FUR NAILER, Cate Melgar Position: Reference Physician Member Role: Primary Care Nurse Address: Address: [address] [place] [phone]- [place] Name: Fay Morton RN Position: [facility] RN Member Role: Primary Care Nurse Name: Massiel Lu RN Position: [facility] RN Member Role: Primary Care Nurse Name: Lurdes Mujica RN Position: [facility] RN Member Role: Primary Care Nurse Name: Brandie Horvath RN Position: [facility] [employer] Manager Member Role: Primary Care Nurse Name: Shyam RNArianaeeanthony Position: [facility] SN RN Member Role: Primary Care Nurse Care Team Related Persons Name: JOHAN PERKINS Name: DAWOOD DE LOS SANTOS Address: home [address] [place] [id number] Name: JENNIFER JUAREZ Address: home [address] [place] [id number]
--- OUTSIDE RECORDS SUMMARY | 2024-02-26 13:15 | XMS_ITS | Continuity of Care Document ---
[facility] Address [address] [place] [address]- Care Team Providers Care Domestic Travel Consultant Name Role Phone La MADISON, Brandon Chamorro Primary Care Physician [phone] [facility] 10[facility] - 11/25/23 [facility] Adult [address] [place] [address]- Allergies, Adverse Reactions, Alerts Substance Reaction Severity Status azithromycin Active macrolide antibiotics Active ketolides Active Dust Active Immunizations Given and Recorded Vaccine Date Status Refusal Reason pneumococcal 20-valent conjugate vaccine 08/02/23 Given Influenza Virus Vaccine (oldterm) 07/25/23 Recorde d Influenza Virus Vaccine (oldterm) 08/31/20 Recorde d Influenza Virus Vaccine (oldterm) 1 07/18/09 Given Influenza Virus Vaccine (oldterm) 2 09/02/07 Given [id number] 12y+ bivalent booster vax 07/22/22 Recorded tetanus-diphtheria [...] GIVEN 5Admin Note: [facility] CLINIC 6Admin Note: Max Rumpus [facility] VIS [id number] given 7Admin Note: given in clinic Medications acetaminophen 325 mg oral tablet 2, tablet, By Mouth, Every 6 hours, PRN, [id number]., # 60 tablet, Refills 0, Maintenance, NEEDED FOR FEVER>100.5 OR PAIN SHOWN BY FACIAL GRIMACE NOTIFY MD IF USED >, 09/13/23 10:09:00 EST, Route to Pharmacy Electronically, [facility], 175.2,... Start Date: 09/13/23 Stop Date: 09/16/23 Status: Ordered bacitracin zinc 500 units/g topical ointment See Instructions, APPLY SMALL AMOUNT TOPICALLY TO SUPERFICIAL WOUNDS 4 TIMES A DAY NEEDED AN ANTIBACTERIAL / CALL MD IF USING FOR MORE THAN 7 DAYS, # 28 Gm, 11 Refills, Maintenance, 11/09/22 15:57:00 EST, [facility], 7, APPLY SMALL AMOUNT T... Start [...] supp, 11 Refills, Maintenance, 12/16/22 13:35:00 EST, [facility], 175.2, cm, 07/27/22 11:37:00 EDT, Height [...] capsule, 11 Refills, Maintenance, 06/21/23 14:02:00 EDT, [facility], 30, TAKE 1 CAPSULE BY MOUTH [...] Stop 04/06/24 13:54:00 EDT, 04/05/23 13:54:00 EDT, [facility], 5, ONE... Start Date: 04/05/23 Stop Date: 04/06/24 Status: Ordered Ditropan XL 10 mg oral tablet, extended release 10, mg, 1, tablet, By Mouth, Daily, 0, 01/03/07 9:24:09, Print ANNE-MARIE Number, [id number], Constant Indicator Start Date: 01/03/07 Status: Ordered DOK 100 mg oral tablet See Instructions, TAKE 1 TABLET BY MOUTH TWICE DAILY (AM AND PM) (STOOL SOFTENER EQUIVALENT), # 60 tablet, 5 Refills, Maintenance, 02/02/23 15:38:00 EDT, [facility], 175.2, cm, 02/01/23 15:11:00EDT, Height Start [...] Instructions Replace Required Details, Route toPharmacy Electronically, [facility], 175.2, cm... Start Date: 04/09/20 Status: Ordered fit to pt fit to pt, See Instructions, # 1 units, Refills 0, Tot. Refills 0, Maintenance, rigid cervical collar. Fit to pt., 06/21/18 15:59:47 EDT, Compound Start Date: 06/21/18 Status: Ordered Flomax 0.4 mg oral capsule 0.4, mg, 1, capsule, By Mouth, Daily, 0, 0, 03/06/07 9:24:42, Print ANNE-MARIE Number, [id number], Constant Indicator Start Date: 01/03/07 Status: Ordered [...] 12/25/18 11:23:03 EST, Route to Pharmacy Electronically, [id number], [facility] Start Date: 12/25/18 Status: Ordered lactulose 10 gm/15 ml oral syrup = 20 Gm, By Mouth, Daily at bedtime, GIVE WITH., # 946 mL, 11 Refills, Maintenance, 09/27/23 9:40:00 EST, [facility], 31, TWO TABLESPOONFULS BY MOUTH DAILY [...] 03/08/23 11:54:00 EDT, Route to Pharmacy Electronically, [facility], Partial fill u... Start Date: 03/08/23 Stop Date: 03/08/24 Status: Ordered loratadine 10 mg oral tablet 1, tablet, By Mouth, Daily, PRN, # 30 tablet, Refills 11, Maintenance, NEEDED FOR ALLERGY SYMPTOMS WATERY, ITCHY RED EYES, SNEEZING FOR ALLERGIC RHINITIS, 08/30/23 16:24:00 EDT, Route to Pharmacy Electronically, [facility], 175.2, cm, 08/02/23... Start Date: 08/30/23 Status: Ordered Milk of Magnesia 8% oral suspension 30 mL, By Mouth, Daily at bedtime, FOR CONSTIPATION FAZM=2311 MG., # 900 mL, 5 Refills, Maintenance, 10/05/23 12:52:00 EST, [facility], 175.2, cm, 08/02/23 10:30:00 EDT, Height Start Date: 10/05/23 Status: Ordered omeprazole 40 mg oral enteric coated capsule See Instructions, TAKE 1 CAPSULE BY MOUTH DAILY FOR GERD IN AM MAY OPEN CAPSULE, # 30 capsule, 5 Refills, Maintenance, 10/26/23 8:21:00 EST, [facility], 175.2, cm, 08/02/23 10:30:00 EDT, Height Start Date: 10/26/23 Status: Ordered polyethylene glycol 3350 oral powder for reconstitution See Instructions, MIX 17GM WITH 8 OUNCES OF WATER OR JUICE DAILY AND TAKE BY MOUTH AT 5PM FOR CONSTIPATION, # 510 Gm, 5 Refills, Maintenance, 10/26/23 9:47:00 EST, [facility], 30, MIX 17GM WITH 8 OUNCES OF WATER OR JUICE DAILY AND TAKE BY MOUTH A... Start Date: 10/26/23 Status: Ordered pravastatin 40 mg oral tablet 1 tablet, By Mouth, Daily, IN THE PM FOR HYPERLIPIDEMIA., # 30 tablet, 5 Refills, Maintenance, 11/09/23 7:50:00 EST, [facility], 175.2, cm, 08/02/23 10:30:00 EDT, Height Start Date: 11/09/23 Status: Ordered Profola oral tablet 1 tablet, By Mouth, Daily, # 30 tablet, 11 Refills, Maintenance, 06/24/23 10:40:00 EDT, [facility], Partial fill upon patient request if [...] 1 Refills, Maintenance, 05/11/22 14:45:00 EDT, Cream, [facility], Partial fill upon patient request if [...] tablet, 5 Refills, Maintenance, 04/04/23 21:00:00 EDT, [facility], 30, TAKE 1 TABLET BY MOUTH [...] Confirmed Active UI (urinary incontinence) Confirmed Active 41087; repeat 202015; repeat 2017 3egd 2011 barretts, repeat 2014 4egd 2009 positive barretts repeat 2012 5C2 6colonoscopy 2007 nl repeat 2017 7repeat 2025 85525 Social History Social History Type Response Smoking Status Never smoker entered on: 06/25/16 Sex Patient Care team information Care Team Personnel Name: Hannah Roque RN Position: [facility] RN Member Role: Primary Care Nurse Name: Reggie Godinez RN Position: [facility] RN Member Role: Primary Care Nurse Name: Christiane Cedillo RN Position: [facility] RN Member Role: Primary Care Nurse Name: Brandon Freeman MD Position: [facility] Physician - Primary Care Member Role: PCP Address: Address: [address] [place] [phone]- [place] Name: Janeen Hoskins RN Position: [facility] RN Member Role: Primary Care Nurse Name: Frantz Mi III, RN Position: [facility] RN Member Role: Primary Care Nurse Name: Tahmina LUZ, Cate Melgar Position: Reference Physician Member Role: Primary Care Nurse Address: Address: [address] [place] [phone]- Name: Massiel Lu RN Position: [facility] RN Member Role: Primary Care Nurse Name: Lurdes Mujica RN Position: [facility] RN Member Role: Primary Care Nurse Name: Brandie Horvath RN Position: [facility] Marketing Operations Manager Member Role: Primary Care Nurse Name: Claribel Howe RN Position: [facility] RN Member Role: Primary Care Nurse Care Team Related Persons Name: JOHAN PERKINS Name: DAWOOD DE LOS SANTOS Address: home [address] [place] [phone] Name: JENNIFER JUAREZ Address: [address] [place] [address]
--- OUTSIDE RECORDS SUMMARY | 2024-02-26 13:15 | XMS_ITS | Continuity of Care Document ---
Author Organization [facility] Chace lt Address [address] [place] [address]- Care Team Providers Care Cloth Mender Name Role Phone Brandon Freeman MD Primary Care Physician [facility] 08[facility]23 - 08/09/23 [facility] Adult [address] [place] [address]- Attending Physician: Brandon Freeman MD Allergies, Adverse [...] Influenza Virus Vaccine (oldterm) 2 09/02/07 Given [id number] 12y+ bivalent booster vax 07/22/22 Recorded tetanus-diphtheria [...] GIVEN 5Admin Note: [facility] 6Admin Note: [employer] [facility] VIS [id number] given 7Admin Note: given in clinic Medications acetaminophen 325 mg oral tablet 2, tablet, By Mouth, Every 6 hours, PRN, [id number]=[id number]., # 60 tablet, Refills 0, Maintenance, NEEDED FOR FEVER>100.5 OR PAIN SHOWN BY FACIAL GRIMACE NOTIFY MD IF USED >, 11/12/22 9:30:00 EST, Route to Pharmacy Electronically, [facility], 175.2, c... Start Date: 11/12/22 Stop Date: 11/15/22 Status: Ordered bacitracin zinc 500 units/g topical ointment See Instructions, APPLY SMALL AMOUNT TOPICALLY TO SUPERFICIAL WOUNDS 4 TIMES A DAY NEEDED AN ANTIBACTERIAL / CALL MD IF USING FOR MORE THAN 7 DAYS, # 28 Gm, 11 Refills, Maintenance, 11/09/22 15:57:00 EST, [facility], 7, APPLY SMALL AMOUNT T... Start [...] supp, 11 Refills, Maintenance, 12/16/22 13:35:00 EST, [facility], 175.2, cm, 07/27/22 11:37:00 EDT, Height [...] capsule, 11 Refills, Maintenance, 06/21/23 14:02:00 EDT, [facility], 30, TAKE 1 CAPSULE BY MOUTH [...] Stop 04/06/24 13:54:00 EDT, 04/05/23 13:54:00 EDT, [facility], 5, ONE... Start Date: 04/05/23 Stop Date: 04/06/24 Status: Ordered Ditropan XL 10 mg oral tablet, extended release 10, mg, 1, tablet, By Mouth, Daily, 0, 01/03/07 9:24:09, Print ANNE-MARIE Number, [id number], Constant Indicator Start Date: 01/03/07 Status: Ordered DOK 100 mg oral tablet See Instructions, TAKE 1 TABLET BY MOUTH TWICE DAILY (AM AND PM) (STOOL SOFTENER EQUIVALENT), # 60 tablet, 5 Refills, Maintenance, 02/02/23 15:38:00 EDT, [facility], 175.2, cm, 02/01/23 15:11:00EDT, Height Start [...] Instructions Replace Required Details, Route toPharmacy Electronically, [facility], 175.2, cm... Start Date: 04/09/20 Status: Ordered fit to pt fit to pt, See Instructions, # 1 units, Refills 0, Tot. Refills 0, Maintenance, rigid cervical collar. Fit to pt., 06/21/18 15:59:47 EDT, Compound Start Date: 06/21/18 Status: Ordered Flomax 0.4 mg oral capsule 0.4, mg, 1, capsule, By Mouth, Daily, 0, 0, 01/03/07 9:24:42, Print ANNE-MARIE Number, [id number], Constant Indicator Start Date: 01/03/07 Status: Ordered [...] BP/IF SYSTOLIC MORE THAN 160, DIASTOLIC MORE [id number], SYSTOLIC LESS THAN 90, OR DIASTOLIC LESS [...] 12/25/18 11:23:03 EST, Route to Pharmacy Electronically, [id number], [facility] Start Date: 12/25/18 Status: Ordered lactulose 10 gm/15 ml oral syrup = 20 Gm, By Mouth, Daily at bedtime, # 946 mL, 11 Refills, Maintenance, 09/01/22 7:18:00 EDT, [facility], 31, 20 Gm By Mouth Daily [...] 03/08/23 11:54:00 EDT, Route to Pharmacy Electronically, [facility], Partial fill u... Start Date: 03/08/23 Stop Date: 03/08/24 Status: Ordered loratadine 10 mg oral tablet 1, tablet, By Mouth, Daily, PRN, # 30 tablet, Refills 11, NEEDED FOR ALLERGY SYMPTOMS WATERY, ITCHY RED EYES, SNEEZING FOR ALLERGIC RHINITIS, Route to Pharmacy Electronically, [facility], 175.2, cm, 07/20/21 10:29:00 EDT, Height Start Date: 11/10/21 Status: Ordered Milk of Magnesia 8% oral suspension 30 mL, By Mouth, Daily at bedtime, FOR CONSTIPATION SHCP=7006 MG., # 900 mL, 5 Refills, Maintenance, 04/04/23 21:00:00 EDT, [facility], 175.2, cm, 02/01/23 15:11:00 EDT, Height Start Date: 04/04/23 Status: Ordered omeprazole 40 mg oral enteric coated capsule See Instructions, TAKE 1 CAPSULE BY MOUTH DAILY FOR GERD IN AM MAY OPEN CAPSULE, # 30 capsule, 2 Refills, Maintenance, 07/25/23 20:17:00 EDT, [facility], 175.2, cm, 05/13/23 11:02:00 EDT, Height Start Date: 07/25/23 Status: Ordered polyethylene glycol 3350 oral powder for reconstitution See Instructions, MIX 17GM WITH 8 OUNCES OF WATER OR JUICE DAILY AT 5PM FOR CONSTIPATION (POLYETHYLENE GLYCOL), # 510 Gm, 11 Refills, Physician Stop 10/07/23 11:17:00 EST, 10/07/22 11:17:00 EST, [facility], 30, MIX 17GM WITH 8 OUNCES OF WATER OR... Start Date: 10/07/22 Stop Date: 10/07/23 Status: Ordered pravastatin 40 mg oral tablet See Instructions, TAKE 1 TABLET BY MOUTH DAILY IN THE PM FOR HYPERLIPIDEMIA, # 30 tablet, 5 Refills, Maintenance, 05/19/23 0:31:00 EDT, [facility], 175.2, cm, 05/13/23 11:02:00 EDT, Height Start Date: 05/19/23 Status: Ordered Profola oral tablet 1 tablet, By Mouth, Daily, # 30 tablet, 11 Refills, Maintenance, 06/24/23 10:40:00 EDT, [facility], Partial fill upon patient request if [...] tablet, 5 Refills, Maintenance, 04/04/23 21:00:00 EDT, [facility], 30, TAKE 1 TABLET BY MOUTH [...] Confirmed Active UI (urinary incontinence) Confirmed Active 53826; repeat 2020; repeat 2018 3egd 2011 barretts, repeat 2014 4egd 2009 positive barretts repeat 2011 5C2 6colonoscopy 2006 nl repeat 2016 7repeat 2024 67306 Vital Signs Most recent to oldest [Reference Range]: 1 Height 175.2 cm (08/02/23 10:30 AM) Weight 73.9 kg (08/02/23 10:30 AM) Oxygen Saturation [94-100 %] 97 % (08/02/23 10:30 AM) Pulse Rate [55-90 bpm] 80 bpm (08/02/23 10:30 AM) Body Mass Index [18.5-24.99 kg/m2] 24.08 kg/m2 (08/02/23 10:30 AM) Blood Pressure [90-138/55-84 mm Hg] 109/ 59mm Hg (08/02/23 10:30 AM) Mode of Delivery (Oxygen) Room air (08/02/23 10:30 AM) Blood pressure sites Arm, left (08/02/23 10:30 AM) Social History Social History Type Response Smoking Status Never smoker entered on: 06/25/16 Sex Note * Kym James: PERFORM, SIGN, VERIFY Event Display: Patient Education/Instruction Authored Date: [id number] [facility] *BMP So Jose Juan Mckeon Clinical Summary Name JOHAN CRISOSTOMO Age 72 Years 1950 PCP Brandon Freeman MD PCP Visit Date 08/02/2023 10:26:00 Additional Instructions: Scheduled Appointments?? Future Appointments ?No Future Appointments Scheduled Follow-Up Instructions ?? With: Address: When: Brandon Freeman MD In 1 year Comments: Physical examination Diagnosis Basal cell carcinoma of skin, unspecified Medications: Please continue your medications until treatment is completed or stopped by your provider. Discuss any questions related to medications with your provider. Medications to Continue with No Changes [facility], [address] [place] [address] [phone], [phone] Pravastatin (pravastatin 40 mg oral tablet) TAKE 1 TABLET BY MOUTH DAILY IN THE PM FOR HYPERLIPIDEMIA. Refills: 5. Next Dose: These medications were not printed or sent to your pharmacy Acetaminophen (acetaminophen 325 mg oral tablet) 2 tab(s) Oral every 6 hours as needed NEEDED FOR FEVER>100.5 OR PAIN SHOWN BY FACIAL GRIMACE NOTIFY IF USED > for 3 Days. ORYE=179OO.. Refills: 0. Next Dose: Bacitracin Topical (bacitracin [...] GERD GENERIC PEPCID. Refills: 2. Next Dose: Guaifenesin (guaiFENesin 100 mg/5 mL oral liquid) 10 Milliliter Oral 4 times a day as needed NEEDED FOR COUGH/NOTIFY MD IF NO RELIEF AFTER 48 HRS / DOSE =. GUAIFENESIN (TUSSIN MUCUS CONGEST 100MG/5ML) IC ROBAFEN.. Refills: 4. Next Dose: Hydrochlorothiazide (hydrochlorothiazide 25 mg oral [...] pain. Refills: 1. Next Dose: Lactobacillus GG ([facility] oral capsule) TAKE 1 CAPSULE BY MOUTH DAILY IN AM FOR INTESTINAL HEALTH 1 CAP=15 BILLION CFU MAY OPEN CAPSULE. Refills: 11. Next Dose: Lactulose (lactulose 10 [...] Milliliter Oral Daily at Bedtime. FOR CONSTIPATION UIWD=4051 MG.. Refills: 5. Next Dose: Miscellaneous Rx [...] 9PM, VITAMIN SUPPLEMENT.. Refills: 5. Next Dose: Multivitamin With Minerals (Profola oral tablet) 1 tab(s) Oral Daily for 30 Days. Refills: 11. Next Dose: Omeprazole (omeprazole 40 mg oral enteric coated capsule) TAKE 1 CAPSULE BY MOUTH DAILY FOR GERD LUIS A MAY OPEN CAPSULE. Refills: 2. Next Dose: Oxybutynin (Ditropan XL 10 mg oral tablet, extended release) 1 tab(s) Oral Daily. Next Dose: Polyethylene Glycol 3350 (polyethylene glycol 3350 oral powder for reconstitution) MIX 17GM WITH 8 OUNCES OF WATER OR JUICE DAILY AT 5PM FOR CONSTIPATION (POLYETHYLENE GLYCOL). Refills: 11. Next Dose: Sodium Biphosphate-Sodium Phosphate (Disposable Enema [...] macrolide antibiotics; azithromycin Medications Given This Visit Medication Dose Route pneumococcal 20-valent conjugate vaccine (pneumococcal 20-valent vacc) 0.5 mL Intramuscular Future Orders ?Comprehensive Metabolic Panel? Order Date:08/02/23?- Complete on or after?08/02/23 ?CBC? Order Date:08/02/23?- Complete on or after?08/02/23 ?Lipid Panel? Order Date:08/02/23?- Complete on or after?08/02/23 ?PSA? Order Date:08/02/23?- Complete on or after?08/02/23 ?Quantiferon TB 1 Tube? Order Date:08/02/23?- Complete on or after?08/02/23 Vital Signs Height 175.2 cm Weight 73.9 kg BMI 24.08 kg/m2 Blood Pressure 109 mm Hg/59 mm Hg Temperature Pulse Rate 80 bpm Respiratory Rate 02 Sat Mode of Delivery 97 %/Room air You can now view a summary of your hospital visit from the comfort of your home through a free online portal called [employer]. [employer] is a website that allows you to securely view your medical information including discharge summary, medications and follow-up visits. ??You can alsosend a secure electronic message to your doctor???s office to request appointments, renew medications or just ask a question. You can enroll at [email or web address] or register during your next office visit. [...] primary care provider, you may find a [facility] provider by calling [employer] at [phone]. [facility], in keeping with [facility] guidance, no longer requires face masks for staff, patientsor visitors in most situations. Similar to time spent indoors at other locations, there is the chance that you were exposed to respiratory viruses during your time with us (such as flu or COVID-19).? If you develop symptoms concerning for a viral respiratory infection, please seek testing (and treatment if indicated) from your medical provider or home test kit. For information about the plan of care [...] Team Personnel Name: Hannah Roque RN Position: [facility] RN Member Role: Primary Care Nurse Name: Reggie Godinez RN Position: [facility] RN Member Role: Primary Care Nurse Name: Christiane Cedillo RN Position: [facility] RN Member Role: Primary Care Nurse Name: Brandon Freeman MD Position: [facility] Physician - Primary Care Member Role: PCP Address: Address: [address] [place] [phone]- Name: Janeen Hoskins RN Position: S RN Member Role: Primary Care Nurse Name: Frantz Mi III, RN Position: [facility] RN Member Role: Primary Care Nurse Name: Cate Martel NP Position: Reference Physician Member Role: Primary Care Nurse Address: Address: [address] [place] [phone]- [place] Name: Fay Morton RN Position: S RN Member Role: Primary Care Nurse Name: Massiel Lu RN Position: S RN Member Role: Primary Care Nurse Name: Lurdes Mujica RN Position: S RN Member Role: Primary Care Nurse Name: Brandie Horvath RN Position: [facility] Hospital Senior Bi Developer Member Role: Primary Care Nurse Name: Claribel Howe RN Position: [facility] RN Member Role: Primary Care Nurse Care Team Related Persons Name: JOHAN PERKINS Name: DAWOOD DE [place] Address: home [address] [place] [id number] Name: JENNIFER JUAREZ Address: home [address] [place] [address]
[2024-02-26] MEDS: cefTRIAXone sodium 1 GM in 0.9 % Sodium Chloride 50 ML IV (13:16)
--- OUTSIDE RECORDS SUMMARY | 2024-02-26 13:16 | XMS_ITS | Continuity of Care Document ---
Author Organization [facility] Address [address] [place] [address]- Care Team Providers Care Cigar Tobacco Processing Supervisor Name Role Phone [place], Brandon Chamorro Primary Care Physician [phone] [facility]): 08/18/23 - 09/17/23 [facility] Adult [address] [place] [address]- Allergies, Adverse Reactions, Alerts Substance Reaction Severity Status azithromycin Active macrolide antibiotics Active ketolides Active Dust Active Immunizations Given and Recorded Vaccine Date Status Refusal Reason pneumococcal 20-valent conjugate vaccine 08/02/23 Given Influenza Virus Vaccine (oldterm) 07/25/23 Recorde d Influenza Virus Vaccine (oldterm) 08/31/20 Recorde d Influenza Virus Vaccine (oldterm) 1 07/18/09 Given Influenza Virus Vaccine (oldterm) 2 09/02/07 Given [id number] 12y+ bivalent booster vax 07/22/22 Recorded tetanus-diphtheria [...] GIVEN 5Admin Note: [facility] 6Admin Note: [employer] [facility] VIS [id number] given 7Admin Note: given in clinic Medications acetaminophen 325 mg oral tablet 2, tablet, By Mouth, Every 6 hours, PRN, [id number]=[id number]., # 60 tablet, Refills 0, Maintenance, NEEDED FOR FEVER>100.5 OR PAIN SHOWN BY FACIAL GRIMACE NOTIFY MD IF USED >, 09/13/23 10:09:00 EST, Route to Pharmacy Electronically, [facility], 175.2,... Start Date: 09/13/23 Stop Date: 09/16/23 Status: Ordered bacitracin zinc 500 units/g topical ointment See Instructions, APPLY SMALL AMOUNT TOPICALLY TO SUPERFICIAL WOUNDS 4 TIMES A DAY NEEDED AN ANTIBACTERIAL / CALL MD IF USING FOR MORE THAN 7 DAYS, # 28 Gm, 11 Refills, Maintenance, 11/09/22 15:57:00 EST, [facility], 7, APPLY SMALL AMOUNT T... Start [...] supp, 11 Refills, Maintenance, 12/16/22 13:35:00 EST, [facility], 175.2, cm, 07/27/22 11:37:00 EDT, Height [...] capsule, 11 Refills, Maintenance, 06/21/23 14:02:00 EDT, [facility], 30, TAKE 1 CAPSULE BY MOUTH [...] Stop 04/06/24 13:54:00 EDT, 04/05/23 13:54:00 EDT, [facility], 5, ONE... Start Date: 04/05/23 Stop Date: 04/06/24 Status: Ordered Ditropan XL 10 mg oral tablet, extended release 10, mg, 1, tablet, By Mouth, Daily, 0, 01/03/07 9:24:09, Print ANNE-MARIE Number, [id number], Constant Indicator Start Date: 01/03/07 Status: Ordered DOK 100 mg oral tablet See Instructions, TAKE 1 TABLET BY MOUTH TWICE DAILY (AM AND PM) (STOOL SOFTENER EQUIVALENT), # 60 tablet, 5 Refills, Maintenance, 02/02/23 15:38:00 EDT, [facility], 175.2, cm, 02/01/23 15:11:00EDT, Height Start [...] Instructions Replace Required Details, Route toPharmacy Electronically, [facility], 175.2, cm... Start Date: 04/09/20 Status: Ordered fit to pt fit to pt, See Instructions, # 1 units, Refills 0, Tot. Refills 0, Maintenance, rigid cervical collar. Fit to pt., 06/21/18 15:59:47 EDT, Compound Start Date: 06/21/18 Status: Ordered Flomax 0.4 mg oral capsule 0.4, mg, 1, capsule, By Mouth, Daily, 0, 0, 03/06/07 9:24:42, Print ANNE-MARIE Number, [id number], Constant Indicator Start Date: 01/03/07 Status: Ordered guaiFENesin 100 mg/5 mL oral liquid 10 mL, By Mouth, 4 times a day, PRN NEEDED FOR COUGH/NOTIFY MD IF NO RELIEF AFTER 48 HRS / DOSE =, GUAIFENESIN (TUSSIN MUCUS CONGEST 100MG/5ML) IC ROBAFEN., # 240 mL, 4 Refills, Maintenance, 07/12/23 14:12:00 EDT, [facility], 175.2, cm, ... Start Date: 07/12/23 [...] Gm, 11 Refills, Maintenance, 12/11/19 11:11:00 EST, [facility], APPLY TO EXTERNAL HEMMORRHOIDS TWICE DAILY PRN PER DR FREEMAN, 175.2, cm, 10/12/19 8:18:00 EST, Height,... Start Date: 12/11/19 Status: Ordered ibuprofen 400 mg oral tablet 400 mg, 1, tablet, By Mouth, 3 times a day, PRN, # 30 tablet, Refills 1, Tot. Refills 1, Maintenance, as needed for pain, 12/25/18 11:23:03 EST, Route to Pharmacy Electronically, [id number], [facility] Start Date: 12/25/18 Status: Ordered lactulose 10 gm/15 ml oral syrup = 20 Gm, By Mouth, Daily at bedtime, # 946 mL, 11 Refills, Maintenance, 09/01/22 7:18:00 EDT, [facility], 31, 20 Gm By Mouth Daily [...] 03/08/23 11:54:00 EDT, Route to Pharmacy Electronically, [facility], Partial fill u... Start Date: 03/08/23 Stop Date: 03/08/24 Status: Ordered loratadine 10 mg oral tablet 1, tablet, By Mouth, Daily, PRN, # 30 tablet, Refills 11, Maintenance, NEEDED FOR ALLERGY SYMPTOMS WATERY, ITCHY RED EYES, SNEEZING FOR ALLERGIC RHINITIS, 08/30/23 16:24:00 EDT, Route to Pharmacy Electronically, [facility], 175.2, cm, 08/02/23... Start Date: 08/30/23 Status: Ordered Milk of Magnesia 8% oral suspension 30 mL, By Mouth, Daily at bedtime, FOR CONSTIPATION DHSY=4738 MG., # 900 mL, 5 Refills, Maintenance, 04/04/23 21:00:00 EDT, [facility], 175.2, cm, 02/01/23 15:11:00 EDT, Height Start Date: 04/04/23 Status: Ordered omeprazole 40 mg oral enteric coated capsule See Instructions, TAKE 1 CAPSULE BY MOUTH DAILY FOR GERD IN AM MAY OPEN CAPSULE, # 30 capsule, 2 Refills, Maintenance, 07/25/23 20:17:00 EDT, [facility], 175.2, cm, 05/13/23 11:02:00 EDT, Height Start Date: 07/25/23 Status: Ordered polyethylene glycol 3350 oral powder for reconstitution See Instructions, MIX 17GM WITH 8 OUNCES OF WATER OR JUICE DAILY AT 5PM FOR CONSTIPATION (POLYETHYLENE GLYCOL), # 510 Gm, 11 Refills, Physician Stop 10/07/23 11:17:00 EST, 10/07/22 11:17:00 EST, [facility], 30, MIX 17GM WITH 8 OUNCES OF WATER OR... Start Date: 10/07/22 Stop Date: 10/07/23 Status: Ordered pravastatin 40 mg oral tablet See Instructions, TAKE 1 TABLET BY MOUTH DAILY IN THE PM FOR HYPERLIPIDEMIA, # 30 tablet, 5 Refills, Maintenance, 05/19/23 0:31:00 EDT, [facility], 175.2, cm, 05/13/23 11:02:00 EDT, Height Start Date: 05/19/23 Status: Ordered Profola oral tablet 1 tablet, By Mouth, Daily, # 30 tablet, 11 Refills, Maintenance, 06/24/23 10:40:00 EDT, [facility], Partial fill upon patient request if [...] 1 Refills, Maintenance, 05/11/22 14:45:00 EDT, Cream, [facility], Partial fill upon patient request if [...] tablet, 5 Refills, Maintenance, 04/04/23 21:00:00 EDT, [facility], 30, TAKE 1 TABLET BY MOUTH [...] Confirmed Active UI (urinary incontinence) Confirmed Active 24386; repeat 2020; repeat 2017 3egd 2011 barretts, repeat 2014 4egd 2009 positive barretts repeat 2011 5C2 6colonoscopy 2006 nl repeat 2016 7repeat 2024 37295 Social History Social History Type Response Smoking Status Never smoker entered on: 06/25/16 Sex Patient Care team information Care Team Personnel Name: Hannah Roque RN Position: [facility] RN Member Role: Primary Care Nurse Name: Reggie Godinez RN Position: [facility] RN Member Role: Primary Care Nurse Name: Christiane Cedillo RN Position: [facility] RN Member Role: Primary Care Nurse Name: Brandon Freeman MD Position: [facility] Physician - Primary Care Member Role: PCP Address: Address: [address] [place] [address]- [place] Name: Janeen Hoskins RN Position: [facility] RN Member Role: Primary Care Nurse Name: Frantz Mi III, RN Position: [facility] RN Member Role: Primary Care Nurse Name: Tahmina FUR COMBER, Cate Melgar Position: Reference Physician Member Role: Primary Care Nurse Address: Address: [address] [place] [phone]- [place] Name: Fay Morton RN Position: [facility] RN Member Role: Primary Care Nurse Name: Massiel Lu RN Position: [facility] RN Member Role: Primary Care Nurse Name: Lurdes Mujica RN Position: [facility] RN Member Role: Primary Care Nurse Name: Brandie Horvath RN Position: [facility] Disc Pad Grinder Member Role: Primary Care Nurse Name: Shyam RNArianaeekaolivia Position: [facility] SN RN Member Role: Primary Care Nurse Care Team Related Persons Name: JOHAN PERKINS Name: DAWOOD DE [place] Address: home [address] [place] [id number] Name: JENNIFER JUAREZ Address: home [address] [place] [id number]
--- OUTSIDE RECORDS SUMMARY | 2024-02-26 13:16 | XMS_ITS | Continuity of Care Document ---
Author Organization [facility] Jose Juan Chace lt Address [address] [place] [address]- Care Team Providers Care Disassembler Name Role Phone La MADISON, Brandon Chamorro Primary Care Physician [facility]): 08/[facility]23 - 09/29/23 [facility] Adult [address] [place] [address]- Allergies, Adverse Reactions, Alerts Substance Reaction Severity Status azithromycin Active macrolide antibiotics Active Dust Active ketolides Active Immunizations Given and Recorded Vaccine Date Status Refusal Reason pneumococcal 20-valent conjugate vaccine 08/02/23 Given Influenza Virus Vaccine (oldterm) 07/25/23 Recorde d Influenza Virus Vaccine (oldterm) 08/31/20 Recorde d Influenza Virus Vaccine (oldterm) 1 07/18/09 Given Influenza Virus Vaccine (oldterm) 2 09/02/07 Given [id number] 12y+ bivalent booster vax 07/22/22 Recorded tetanus-diphtheria [...] GIVEN 5Admin Note: [facility] 6Admin Note: [employer] [facility] VIS [id number] given 7Admin Note: given in clinic Medications acetaminophen 325 mg oral tablet 2, tablet, By Mouth, Every 6 hours, PRN, OOTQ=[id number]., # 60 tablet, Refills 0, Maintenance, NEEDED FOR FEVER>100.5 OR PAIN SHOWN BY FACIAL GRIMACE NOTIFY MD IF USED >, 09/13/23 10:09:00 EST, Route to Pharmacy Electronically, [facility], 175.2,... Start Date: 09/13/23 Stop Date: 09/16/23 Status: Ordered bacitracin zinc 500 units/g topical ointment See Instructions, APPLY SMALL AMOUNT TOPICALLY TO SUPERFICIAL WOUNDS 4 TIMES A DAY NEEDED AN ANTIBACTERIAL / CALL MD IF USING FOR MORE THAN 7 DAYS, # 28 Gm, 11 Refills, Maintenance, 11/09/22 15:57:00 EST, [facility], 7, APPLY SMALL AMOUNT T... Start [...] supp, 11 Refills, Maintenance, 12/16/22 13:35:00 EST, [facility], 175.2, cm, 07/27/22 11:37:00 EDT, Height [...] capsule, 11 Refills, Maintenance, 06/21/23 14:02:00 EDT, [facility], 30, TAKE 1 CAPSULE BY MOUTH [...] Stop 04/06/24 13:54:00 EDT, 04/05/23 13:54:00 EDT, [facility], 5, ONE... Start Date: 04/05/23 Stop Date: 04/06/24 Status: Ordered Ditropan XL 10 mg oral tablet, extended release 10, mg, 1, tablet, By Mouth, Daily, 0, 01/03/07 9:24:09, Print ANNE-MARIE Number, [id number], Constant Indicator Start Date: 01/03/07 Status: Ordered DOK 100 mg oral tablet See Instructions, TAKE 1 TABLET BY MOUTH TWICE DAILY (AM AND PM) (STOOL SOFTENER EQUIVALENT), # 60 tablet, 5 Refills, Maintenance, 02/02/23 15:38:00 EDT, [facility], 175.2, cm, 02/01/23 15:11:00EDT, Height Start [...] Instructions Replace Required Details, Route toPharmacy Electronically, [facility], 175.2, cm... Start Date: 04/09/20 Status: Ordered fit to pt fit to pt, See Instructions, # 1 units, Refills 0, Tot. Refills 0, Maintenance, rigid cervical collar. Fit to pt., 06/21/18 15:59:47 EDT, Compound Start Date: 06/21/18 Status: Ordered Flomax 0.4 mg oral capsule 0.4, mg, 1, capsule, By Mouth, Daily, 0, 0, 03/06/07 9:24:42, Print ANNE-MARIE Number, [id number], Constant Indicator Start Date: 01/03/07 Status: Ordered guaiFENesin 100 mg/5 mL oral liquid 10 mL, By Mouth, 4 times a day, PRN NEEDED FOR COUGH/NOTIFY MD IF NO RELIEF AFTER 48 HRS / DOSE =, GUAIFENESIN (TUSSIN MUCUS CONGEST 100MG/5ML) IC ROBAFEN., # 240 mL, 4 Refills, Maintenance, 07/12/23 14:12:00 EDT, [facility], 175.2, cm, ... Start Date: 07/12/23 [...] Gm, 11 Refills, Maintenance, 12/11/19 11:11:00 EST, [facility], APPLY TO EXTERNAL HEMMORRHOIDS TWICE DAILY PRN PER DR FREEMAN, 175.2, cm, 10/12/19 8:18:00 EST, Height,... Start Date: 12/11/19 Status: Ordered ibuprofen 400 mg oral tablet 400 mg, 1, tablet, By Mouth, 3 times a day, PRN, # 30 tablet, Refills 1, Tot. Refills 1, Maintenance, as needed for pain, 12/25/18 11:23:03 EST, Route to Pharmacy Electronically, [id number], [facility] Start Date: 12/25/18 Status: Ordered lactulose 10 gm/15 ml oral syrup = 20 Gm, By Mouth, Daily at bedtime, GIVE WITH., # 946 mL, 11 Refills, Maintenance, 09/27/23 9:40:00 EST, [facility], 31, TWO TABLESPOONFULS BY MOUTH DAILY [...] 03/08/23 11:54:00 EDT, Route to Pharmacy Electronically, [facility], Partial fill u... Start Date: 03/08/23 Stop Date: 03/08/24 Status: Ordered loratadine 10 mg oral tablet 1, tablet, By Mouth, Daily, PRN, # 30 tablet, Refills 11, Maintenance, NEEDED FOR ALLERGY SYMPTOMS WATERY, ITCHY RED EYES, SNEEZING FOR ALLERGIC RHINITIS, 08/30/23 16:24:00 EDT, Route to Pharmacy Electronically, [facility], 175.2, cm, 08/02/23... Start Date: 08/30/23 Status: Ordered Milk of Magnesia 8% oral suspension 30 mL, By Mouth, Daily at bedtime, FOR CONSTIPATION APPJ=5732 MG., # 900 mL, 5 Refills, Maintenance, 04/04/23 21:00:00 EDT, [facility], 175.2, cm, 02/01/23 15:11:00 EDT, Height Start Date: 04/04/23 Status: Ordered omeprazole 40 mg oral enteric coated capsule See Instructions, TAKE 1 CAPSULE BY MOUTH DAILY FOR GERD IN AM MAY OPEN CAPSULE, # 30 capsule, 2 Refills, Maintenance, 07/25/23 20:17:00 EDT, [facility], 175.2, cm, 05/13/23 11:02:00 EDT, Height Start Date: 07/25/23 Status: Ordered polyethylene glycol 3350 oral powder for reconstitution See Instructions, MIX 17GM WITH 8 OUNCES OF WATER OR JUICE DAILY AT 5PM FOR CONSTIPATION (POLYETHYLENE GLYCOL), # 510 Gm, 11 Refills, Physician Stop 10/07/23 11:17:00 EST, 10/07/22 11:17:00 EST, [facility], 30, MIX 17GM WITH 8 OUNCES OF WATER OR... Start Date: 10/07/22 Stop Date: 10/07/23 Status: Ordered pravastatin 40 mg oral tablet See Instructions, TAKE 1 TABLET BY MOUTH DAILY IN THE PM FOR HYPERLIPIDEMIA, # 30 tablet, 5 Refills, Maintenance, 05/19/23 0:31:00 EDT, [facility], 175.2, cm, 05/13/23 11:02:00 EDT, Height Start Date: 05/19/23 Status: Ordered Profola oral tablet 1 tablet, By Mouth, Daily, # 30 tablet, 11 Refills, Maintenance, 06/24/23 10:40:00 EDT, [facility], Partial fill upon patient request if [...] 1 Refills, Maintenance, 05/11/22 14:45:00 EDT, Cream, [facility], Partial fill upon patient request if [...] tablet, 5 Refills, Maintenance, 04/04/23 21:00:00 EDT, [facility], 30, TAKE 1 TABLET BY MOUTH [...] Confirmed Active UI (urinary incontinence) Confirmed Active 22350; repeat 2020; repeat 2017 3egd 2011 barretts, repeat 2014 4egd 2009 positive barretts repeat 2011 5C2 6colonoscopy 2006 nl repeat 2016 7repeat 2024 41625 Social History Social History Type Response Smoking [...] Care Member Role: PCP Address: Address: [address] [place] [address]- [place] Name: Janeen Hoskins RN Position: [facility] RN Member Role: Primary Care Nurse Name: Frantz Mi III, RN Position: [facility] RN Member Role: Primary Care Nurse Name: Tahmina MILLINERY DESIGNER, Cate Melgar Position: Reference Physician Member Role: Primary Care Nurse Address: Address: [address] [place] [id number]- [place] Name: Fay Morton RN Position: [facility] RN Member Role: Primary Care Nurse Name: Massiel Lu RN Position: [facility] RN Member Role: Primary Care Nurse Name: Lurdes Mujica RN Position: [facility] RN Member Role: Primary Care Nurse Name: Brandie Horvath RN Position: [facility] Ethyl Blender Member Role: Primary Care Nurse Name: Shyam RN, Hteekaolivia Position: [facility] SN RN Member Role: Primary Care Nurse Care Team Related Persons Name: JOHAN PERKINS Name: DAWOOD DE LOS SANTOS Address: home [address] [place] [id number] Name: JENNIFER JUAREZ Address: home [address] [place] [id number]
--- OUTSIDE RECORDS SUMMARY | 2024-02-26 13:16 | XMS_ITS | Continuity of Care Document ---
[facility] Address [address] [place] [address]- Care Team Providers Care Skip Pit Worker Name Role Phone La MADISON, Brandon Chamorro Primary Care Physician [phone] [facility] Date[facility]s): 08[facility]16[facility]23 - 09/15/23 [facility] Adult [address] [place] [address]- Allergies, Adverse Reactions, Alerts Substance Reaction Severity Status azithromycin Active macrolide antibiotics Active ketolides Active Dust Active Immunizations Given and Recorded Vaccine Date Status Refusal Reason pneumococcal 20-valent conjugate vaccine 08/02/23 Given Influenza Virus Vaccine (oldterm) 07/25/23 Recorde d Influenza Virus Vaccine (oldterm) 08/31/20 Recorde d Influenza Virus Vaccine (oldterm) 1 07/18/09 Given Influenza Virus Vaccine (oldterm) 2 09/02/07 Given [id number] 12y+ bivalent booster vax 07/22/22 Recorded tetanus-diphtheria [...] GIVEN 5Admin Note: [facility]INIC 6Admin Note: [employer] [facility] VIS [id number] given 7Admin Note: given in clinic Medications acetaminophen 325 mg oral tablet 2, tablet, By Mouth, Every 6 hours, PRN, [id number]., # 60 tablet, Refills 0, Maintenance, NEEDED FOR FEVER>100.5 OR PAIN SHOWN BY FACIAL GRIMACE NOTIFY MD IF USED >, 09/13/23 10:09:00 EST, Route to Pharmacy Electronically, [facility], 175.2,... Start Date: 09/13/23 Stop Date: 09/16/23 Status: Ordered bacitracin zinc 500 units/g topical ointment See Instructions, APPLY SMALL AMOUNT TOPICALLY TO SUPERFICIAL WOUNDS 4 TIMES A DAY NEEDED AN ANTIBACTERIAL / CALL MD IF USING FOR MORE THAN 7 DAYS, # 28 Gm, 11 Refills, Maintenance, 11/09/22 15:57:00 EST, [facility], 7, APPLY SMALL AMOUNT T... Start [...] supp, 11 Refills, Maintenance, 12/16/22 13:35:00 EST, [facility], 175.2, cm, 07/27/22 11:37:00 EDT, [...] capsule, 11 Refills, Maintenance, 06/21/23 14:02:00 EDT, [facility], 30, TAKE 1 CAPSULE BY MOUTH [...] Stop 04/06/24 13:54:00 EDT, 04/05/23 13:54:00 EDT, [facility], 5, ONE... Start Date: 04/05/23 Stop Date: 04/06/24 Status: Ordered Ditropan XL 10 mg oral tablet, extended release 10, mg, 1, tablet, By Mouth, Daily, 0, 01/03/07 9:24:09, Print ANNE-MARIE Number, [id number], Constant Indicator Start Date: 01/03/07 Status: Ordered DOK 100 mg oral tablet See Instructions, TAKE 1 TABLET BY MOUTH TWICE DAILY (AM AND PM) (STOOL SOFTENER EQUIVALENT), # 60 tablet, 5 Refills, Maintenance, 02/02/23 15:38:00 EDT, [facility], 175.2, cm, 02/01/23 15:11:00EDT, Height Start [...] Instructions Replace Required Details, Route toPharmacy Electronically, [facility], 175.2, cm... Start Date: 04/09/20 Status: Ordered fit to pt fit to pt, See Instructions, # 1 units, Refills 0, Tot. Refills 0, Maintenance, rigid cervical collar. Fit to pt., 06/21/18 15:59:47 EDT, Compound Start Date: 06/21/18 Status: Ordered Flomax 0.4 mg oral capsule 0.4, mg, 1, capsule, By Mouth, Daily, 0, 0, 03/06/07 9:24:42, Print ANNE-MARIE Number, [id number], Constant Indicator Start Date: 01/03/07 Status: Ordered guaiFENesin 100 mg/5 mL oral liquid 10 mL, By Mouth, 4 times a day, PRN NEEDED FOR COUGH/NOTIFY MD IF NO RELIEF AFTER 48 HRS / DOSE =, GUAIFENESIN (TUSSIN MUCUS CONGEST 100MG/5ML) IC ROBAFEN., # 240 mL, 4 Refills, Maintenance, 07/12/23 14:12:00 EDT, [facility], 175.2, cm, ... Start Date: 07/12/23 [...] Gm, 11 Refills, Maintenance, 12/11/19 11:11:00 EST, [facility], APPLY TO EXTERNAL HEMMORRHOIDS TWICE DAILY PRN PER DR FREEMAN, 175.2, cm, 10/12/19 8:18:00 EST, Height,... Start Date: 12/11/19 Status: Ordered ibuprofen 400 mg oral tablet 400 mg, 1, tablet, By Mouth, 3 times a day, PRN, # 30 tablet, Refills 1, Tot. Refills 1, Maintenance, as needed for pain, 12/25/18 11:23:03 EST, Route to Pharmacy Electronically, [id number], [facility] Start Date: 12/25/18 Status: Ordered lactulose 10 gm/15 ml oral syrup = 20 Gm, By Mouth, Daily at bedtime, # 946 mL, 11 Refills, Maintenance, 09/01/22 7:18:00 EDT, [facility], 31, 20 Gm By Mouth Daily [...] 03/08/23 11:54:00 EDT, Route to Pharmacy Electronically, [facility], Partial fill u... Start Date: 03/08/23 Stop Date: 03/08/24 Status: Ordered loratadine 10 mg oral tablet 1, tablet, By Mouth, Daily, PRN, # 30 tablet, Refills 11, Maintenance, NEEDED FOR ALLERGY SYMPTOMS WATERY, ITCHY RED EYES, SNEEZING FOR ALLERGIC RHINITIS, 08/30/23 16:24:00 EDT, Route to Pharmacy Electronically, [facility], 175.2, cm, 08/02/23... Start Date: 08/30/23 Status: Ordered Milk of Magnesia 8% oral suspension 30 mL, By Mouth, Daily at bedtime, FOR CONSTIPATION EVVT=1964 MG., # 900 mL, 5 Refills, Maintenance, 04/04/23 21:00:00 EDT, [facility], 175.2, cm, 02/01/23 15:11:00 EDT, Height Start Date: 04/04/23 Status: Ordered omeprazole 40 mg oral enteric coated capsule See Instructions, TAKE 1 CAPSULE BY MOUTH DAILY FOR GERD IN AM MAY OPEN CAPSULE, # 30 capsule, 2 Refills, Maintenance, 07/25/23 20:17:00 EDT, [facility], 175.2, cm, 05/13/23 11:02:00 EDT, Height Start Date: 07/25/23 Status: Ordered polyethylene glycol 3350 oral powder for reconstitution See Instructions, MIX 17GM WITH 8 OUNCES OF WATER OR JUICE DAILY AT 5PM FOR CONSTIPATION (POLYETHYLENE GLYCOL), # 510 Gm, 11 Refills, Physician Stop 10/07/23 11:17:00 EST, 10/07/22 11:17:00 EST, [facility], 30, MIX 17GM WITH 8 OUNCES OF WATER OR... Start Date: 10/07/22 Stop Date: 10/07/23 Status: Ordered pravastatin 40 mg oral tablet See Instructions, TAKE 1 TABLET BY MOUTH DAILY IN THE PM FOR HYPERLIPIDEMIA, # 30 tablet, 5 Refills, Maintenance, 05/19/23 0:31:00 EDT, [facility], 175.2, cm, 05/13/23 11:02:00 EDT, Height Start Date: 05/19/23 Status: Ordered Profola oral tablet 1 tablet, By Mouth, Daily, # 30 tablet, 11 Refills, Maintenance, 06/24/23 10:40:00 EDT, [facility], Partial fill upon patient request if [...] 1 Refills, Maintenance, 05/11/22 14:45:00 EDT, Cream, [facility], Partial fill upon patient request if [...] tablet, 5 Refills, Maintenance, 04/04/23 21:00:00 EDT, [facility], 30, TAKE 1 TABLET BY [...] Confirmed Active UI (urinary incontinence) Confirmed Active 99240; repeat 2020; repeat 2017 3egd 2011 barretts, repeat 2014 4egd 2009 positive barretts repeat 2011 5C2 6colonoscopy 2006 nl repeat 2016 7repeat 2024 [id number] Social History Social History Type Response Smoking Status Never smoker entered on: 06/25/16 Sex Patient Care team information Care Team Personnel Name: Hannah Roque RN Position: [facility] RN Member Role: Primary Care Nurse Name: Reggie Godinez RN Position: [facility] RN Member Role: Primary Care Nurse Name: Christiane Cedillo RN Position: [facility] RN Member Role: Primary Care Nurse Name: Brandon Freeman MD Position: [facility] Physician - Primary Care Member Role: PCP Address: Address: [address] [place] [address]- [place] Name: Janeen Hoskins RN Position: [facility] RN Member Role: Primary Care Nurse Name: Frantz Mi III, RN Position: [facility] RN Member Role: Primary Care Nurse Name: Tahmina BARREL FILLER HEAD, Cate Melgar Position: Reference Physician Member Role: Primary Care Nurse Address: Address: [address] [place] [address]- [place] Name: Fay Morton RN Position: [facility] RN Member Role: Primary Care Nurse Name: Massiel Lu RN Position: [facility] RN Member Role: Primary Care Nurse Name: Lurdes Mujica RN Position: [facility] RN Member Role: Primary Care Nurse Name: Brandie Horvath RN Position: [facility] [employer] Assistant Member Role: Primary Care Nurse Name: Shyam RNArianaeekaolivia Position: [facility] SN RN Member Role: Primary Care Nurse Care Team Related Persons Name: JOHAN PERKINS Name: DAWOOD DE LOS SANTOS Address: home [address] [place] [id number] Name: JENNIFER JUAREZ Address: home [address] [place] [id number]
--- OUTSIDE RECORDS SUMMARY | 2024-02-26 13:17 | XMS_ITS | Continuity of Care Document ---
Author Organization [facility] Chace lt Address [address] [place] [address]- Care Team Providers Care Costume Director Name Role Phone Brandon Freeman MD Primary Care Physician [facility]): 01[facility]13/24 - 02/12/24 [facility] Adult [address] [place] [address]- Attending Physician: Admtr, Ar8 Allergies, Adverse Reactions, [...] Influenza Virus Vaccine (oldterm) 2 09/02/07 Given [id number] 12y+ bivalent booster vax 07/22/22 Recorded tetanus-diphtheria [...] GIVEN 5Admin Note: [facility] 6Admin Note: [employer] [facility] VIS [id number] given 7Admin Note: given in clinic Medications acetaminophen 325 mg oral tablet 2, tablet, By Mouth, Every 6 hours, PRN, OEPV=018BG., # 60 tablet, Refills 0, Maintenance, NEEDED FOR FEVER>100.5 OR PAIN SHOWN BY FACIAL GRIMACE NOTIFY MD IF USED >, 09/13/23 10:09:00 EST, Route to Pharmacy Electronically, [facility], 175.2,... Start Date: 09/13/23 Stop Date: 09/16/23 Status: Ordered bacitracin zinc 500 units/g topical ointment See Instructions, APPLY SMALL AMOUNT TOPICALLY TO SUPERFICIAL WOUNDS 4 TIMES A DAY NEEDED AN ANTIBACTERIAL / CALL MD IF USING FOR MORE THAN 7 DAYS, # 28 Gm, 11 Refills, Maintenance, 11/09/22 15:57:00 EST, [facility], 7, APPLY SMALL AMOUNT T... Start [...] supp, 11 Refills, Maintenance, 12/23/23 8:21:00 EST, [facility], 175.2, cm, 08/02/23 10:30:00 EDT, Height [...] capsule, 11 Refills, Maintenance, 06/21/23 14:02:00 EDT, [facility], 30, TAKE 1 CAPSULE BY MOUTH [...] Stop 04/06/24 13:54:00 EDT, 04/05/23 13:54:00 EDT, [facility], 5, ONE... Start Date: 04/05/23 Stop Date: 04/06/24 Status: Ordered Ditropan XL 10 mg oral tablet, extended release 10, mg, 1, tablet, By Mouth, Daily, 0, 01/03/07 9:24:09, Print ANNE-MARIE Number, [id number], Constant Indicator Start Date: 01/03/07 Status: Ordered DOK 100 mg oral tablet See Instructions, TAKE 1 TABLET BY MOUTH TWICE DAILY (AM AND PM) (STOOL SOFTENER EQUIVALENT), # 60 tablet, 5 Refills, Maintenance, 02/02/23 15:38:00 EDT, [facility], 175.2, cm, 02/01/23 15:11:00EDT, Height Start Date: 02/02/23 Status: Ordered DOK 100 MG TAB 100 Tablet DOK 100 MG TAB 100 Tablet, See Instructions, # 60 tablet, 5 Refills, Maintenance, TAKE 1 TABLET BY MOUTH TWICE DAILY (AM AND PM) (STOOL SOFTENER EQUIVALENT), 02/02/24 15:36:00 EDT, 175.2, cm, 01/13/24 15:00:00 EDT, Height Start Date: 02/02/24 Status: Ordered DOK 100 MG TAB 100 [...] Instructions Replace Required Details, Route toPharmacy Electronically, [facility], 175.2, cm... Start Date: 04/09/20 Status: Ordered fit to pt fit to pt, See Instructions, # 1 units, Refills 0, Tot. Refills 0, Maintenance, rigid cervical collar. Fit to pt., 06/21/18 15:59:47 EDT, Compound Start Date: 06/21/18 Status: Ordered Flomax 0.4 mg oral capsule 0.4, mg, 1, capsule, By Mouth, Daily, 0, 0, 01/03/07 9:24:42, Print ANNE-MARIE Number, [id number], Constant Indicator Start Date: 01/03/07 Status: Ordered guaiFENesin 100 mg/5 mL oral liquid 10 mL, By Mouth, 4 times a day, PRN NEEDED FOR COUGH/NOTIFY MD IF NO RELIEF AFTER 48 HRS / DOSE =, GUAIFENESIN (TUSSIN MUCUS CONGEST 100MG/5ML) IC ROBAFEN., # 240 mL, 4 Refills, Maintenance, 07/12/23 14:12:00 EDT, [facility], 175.2, cm, 05/13/... Start Date: 07/12/23 Status: Ordered hydrochlorothiazide 25 mg oral tablet See Instructions, TAKE 1 TAB BY MOUTH DAILY IN AM FOR HTN/MONITOR BP/IF SYSTOLIC MORE THAN 160, DIASTOLIC MORE THAN 100, SYSTOLIC LESS THAN 90, OR DIASTOLIC LESS THAN 50 CALLVT, # 30 tablet, Refills 5, Maintenance, 09/08/23 [...] Gm, 11 Refills, Maintenance, 12/11/19 11:11:00 EST, [facility], APPLY TO EXTERNAL HEMMORRHOIDS TWICE DAILY PRN PER DR FREEMAN, 175.2, cm, 10/12/19 8:18:00 EST, Height,... Start Date: 12/11/19 Status: Ordered ibuprofen 400 mg oral tablet 400 mg, 1, tablet, By Mouth, 3 times a day, PRN, # 30 tablet, Refills 1, Tot. Refills 1, Maintenance, as needed for pain, 12/25/18 11:23:03 EST, Route to Pharmacy Electronically, [id number], [facility] Start Date: 12/25/18 Status: Ordered lactulose 10 gm/15 ml oral syrup = 20 Gm, By Mouth, Daily at bedtime, GIVE WITH., # 946 mL, 11 Refills, Maintenance, 09/27/23 9:40:00 EST, [facility], 31, TWO TABLESPOONFULS BY MOUTH DAILY [...] 03/08/23 11:54:00 EDT, Route to Pharmacy Electronically, [facility], Partial fill u... Start Date: 03/08/23 Stop Date: 03/08/24 Status: Ordered loratadine 10 mg oral tablet 1, tablet, By Mouth, Daily, PRN, # 30 tablet, Refills 11, Maintenance, NEEDED FOR ALLERGY SYMPTOMS WATERY, ITCHY RED EYES, SNEEZING FOR ALLERGIC RHINITIS, 08/30/23 16:24:00 EDT, Route to Pharmacy Electronically, [facility], 175.2, cm, 08/02/23... Start Date: 08/30/23 Status: Ordered Milk of Magnesia 8% oral suspension 30 mL, By Mouth, Daily at bedtime, FOR CONSTIPATION XNHA=1501 MG., # 900 mL, 5 Refills, Maintenance, 10/05/23 12:52:00 EST, [facility], 175.2, cm, 08/02/23 10:30:00 EDT, Height Start Date: 10/05/23 Status: Ordered omeprazole 40 mg oral enteric coated capsule See Instructions, TAKE 1 CAPSULE BY MOUTH DAILY FOR GERD IN AM MAY OPEN CAPSULE, # 30 capsule, 5 Refills, Maintenance, 10/26/23 8:21:00 EST, [facility], 175.2, cm, 08/02/23 10:30:00 EDT, Height Start Date: 10/26/23 Status: Ordered polyethylene glycol 3350 oral powder for reconstitution See Instructions, MIX 17GM WITH 8 OUNCES OF WATER OR JUICE DAILY AND TAKE BY MOUTH AT 5PM FOR CONSTIPATION, # 510 Gm, 5 Refills, Maintenance, 10/26/23 9:47:00 EST, [facility], 30, MIX 17GM WITH 8 OUNCES OF WATER OR JUICE DAILY AND TAKE BY MOUTH A... Start Date: 10/26/23 Status: Ordered pravastatin 40 mg oral tablet 1 tablet, By Mouth, Daily, IN THE PM FOR HYPERLIPIDEMIA., # 30 tablet, 5 Refills, Maintenance, 11/09/23 7:50:00 EST, [facility], 175.2, cm, 08/02/23 10:30:00 EDT, Height Start Date: 11/09/23 Status: Ordered Profola oral tablet 1 tablet, By Mouth, Daily, # 30 tablet, 11 Refills, Maintenance, 06/24/23 10:40:00 EDT, [facility], Partial fill upon patient request if [...] Confirmed Active UI (urinary incontinence) Confirmed Active 75798; repeat 202015; repeat 2017 3egd 2011 barretts, repeat 2014 4egd 2009 positive barretts repeat 2011 5C2 6colonoscopy 2007 nl repeat 2016 7repeat 2024 [id number] Social History Social History Type Response Smoking Status Never smoker entered on: 06/25/16 Sex Cardiology * Brigette Young.: PERFORM Event Display: Cardiovascular Results Scanned Authored Date: [id number] * Brigette Young: PERFORM Event Display: Cardiovascular Results Scanned Authored Date: [id number] * Jacy Mills: PERFORM Event Display: Cardiovascular Results Scanned Authored Date: [id number] Laboratory * Event Display: Non [facility] Lab [...] Event Display: Radiology Results Scanned Authored Date: [id number] Patient Care team information Care Team Personnel Name: Hannah Roque RN Position: S RN Member Role: Primary Care Nurse Name: Reggie Godinez RN Position: S RN Member Role: Primary Care Nurse Name: Christiane Cedillo RN Position: S RN Member Role: Primary Care Nurse Name: Brandon Freeman MD Position: [facility] Physician - Primary Care Member Role: PCP Address: Address: [address] [place] [address]- [place] Name: Janeen Hoskins RN Position: [facility] ED RN W/OE and Tasks Member Role: Primary Care Nurse Name: Frantz Mi III, RN Position: [facility] RN Member Role: Primary Care Nurse Name: Cate Martel NP Position: Reference Physician Member Role: Primary Care Nurse Address: Address: [address] [place] [address]- [place] Name: Massiel Lu RN Position: [facility] RN Member Role: Primary Care Nurse Name: Lurdes Mujica RN Position: [facility] RN Member Role: Primary Care Nurse Name: Brandie Horvath RN Position: [facility] [employer] Member Role: Primary Care Nurse Name: Claribel Howe RN Position: [facility] SN RN Member Role: Primary Care Nurse Care Team Related Persons Name: JOHAN PERKINS Name: DAWOOD DE LOS SANTOS Address: home [address] [place] [id number] Name: JENNIFER JUAREZ Address: home [address] [place] [address]
--- OUTSIDE RECORDS SUMMARY | 2024-02-26 13:17 | XMS_ITS | Continuity of Care Document ---
Author Organization [facility] Chace lt Address [address] [place] [address]- Care Team Providers Care Costing Analyst Name Role Phone La MADISON, Brandon Chamorro Primary Care Physician [phone] [facility] 10[facility]23 - 11/03/23 [facility] Adult [address] [place] [address]- Allergies, Adverse Reactions, Alerts Substance Reaction Severity Status azithromycin Active macrolide antibiotics Active Dust Active ketolides Active Immunizations Given and Recorded Vaccine Date Status Refusal Reason pneumococcal 20-valent conjugate vaccine 08/02/23 Given Influenza Virus Vaccine (oldterm) 07/25/23 Recorde d Influenza Virus Vaccine (oldterm) 08/31/20 Recorde d Influenza Virus Vaccine (oldterm) 1 07/18/09 Given Influenza Virus Vaccine (oldterm) 2 09/02/07 Given [id number] 12y+ bivalent booster vax 07/22/22 Recorded tetanus-diphtheria [...] GIVEN 5Admin Note: [facility]INIC 6Admin Note: [facility] VIS [id number] given 7Admin Note: given in clinic Medications acetaminophen 325 mg oral tablet 2, tablet, By Mouth, Every 6 hours, PRN, AOXW=437WN., # 60 tablet, Refills 0, Maintenance, NEEDED FOR FEVER>100.5 OR PAIN SHOWN BY FACIAL GRIMACE NOTIFY MD IF USED >, 09/13/23 10:09:00 EST, Route to Pharmacy Electronically, [facility], 175.2,... Start Date: 09/13/23 Stop Date: 09/16/23 Status: Ordered bacitracin zinc 500 units/g topical ointment See Instructions, APPLY SMALL AMOUNT TOPICALLY TO SUPERFICIAL WOUNDS 4 TIMES A DAY NEEDED AN ANTIBACTERIAL / CALL MD IF USING FOR MORE THAN 7 DAYS, # 28 Gm, 11 Refills, Maintenance, 11/09/22 15:57:00 EST, [facility], 7, APPLY SMALL AMOUNT T... Start [...] supp, 11 Refills, Maintenance, 12/16/22 13:35:00 EST, [facility], 175.2, cm, 07/27/22 11:37:00 EDT, Height [...] capsule, 11 Refills, Maintenance, 06/21/23 14:02:00 EDT, [facility], 30, TAKE 1 CAPSULE BY MOUTH [...] Stop 04/06/24 13:54:00 EDT, 04/05/23 13:54:00 EDT, [facility], 5, ONE... Start Date: 04/05/23 Stop Date: 04/06/24 Status: Ordered Ditropan XL 10 mg oral tablet, extended release 10, mg, 1, tablet, By Mouth, Daily, 0, 01/03/07 9:24:09, Print ANNE-MARIE Number, [id number], Constant Indicator Start Date: 01/03/07 Status: Ordered DOK 100 mg oral tablet See Instructions, TAKE 1 TABLET BY MOUTH TWICE DAILY (AM AND PM) (STOOL SOFTENER EQUIVALENT), # 60 tablet, 5 Refills, Maintenance, 02/02/23 15:38:00 EDT, [facility], 175.2, cm, 02/01/23 15:11:00EDT, Height Start [...] Instructions Replace Required Details, Route toPharmacy Electronically, [facility], 175.2, cm... Start Date: 04/09/20 Status: Ordered fit to pt fit to pt, See Instructions, # 1 units, Refills 0, Tot. Refills 0, Maintenance, rigid cervical collar. Fit to pt., 06/21/18 15:59:47 EDT, Compound Start Date: 06/21/18 Status: Ordered Flomax 0.4 mg oral capsule 0.4, mg, 1, capsule, By Mouth, Daily, 0, 0, 03/06/07 9:24:42, Print ANNE-MARIE Number, [id number], Constant Indicator Start Date: 01/03/07 Status: Ordered guaiFENesin 100 mg/5 mL oral liquid 10 mL, By Mouth, 4 times a day, PRN NEEDED FOR COUGH/NOTIFY MD IF NO RELIEF AFTER 48 HRS / DOSE =, GUAIFENESIN (TUSSIN MUCUS CONGEST 100MG/5ML) IC ROBAFEN., # 240 mL, 4 Refills, Maintenance, 07/12/23 14:12:00 EDT, [facility], 175.2, cm, ... Start Date: 07/12/23 [...] Gm, 11 Refills, Maintenance, 12/11/19 11:11:00 EST, [facility], APPLY TO EXTERNAL HEMMORRHOIDS TWICE DAILY PRN PER DR FREEMAN, 175.2, cm, 10/12/19 8:18:00 EST, Height,... Start Date: 12/11/19 Status: Ordered ibuprofen 400 mg oral tablet 400 mg, 1, tablet, By Mouth, 3 times a day, PRN, # 30 tablet, Refills 1, Tot. Refills 1, Maintenance, as needed for pain, 12/25/18 11:23:03 EST, Route to Pharmacy Electronically, [id number], [facility] Start Date: 12/25/18 Status: Ordered lactulose 10 gm/15 ml oral syrup = 20 Gm, By Mouth, Daily at bedtime, GIVE WITH., # 946 mL, 11 Refills, Maintenance, 09/27/23 9:40:00 EST, [facility], 31, TWO TABLESPOONFULS BY MOUTH DAILY [...] 03/08/23 11:54:00 EDT, Route to Pharmacy Electronically, [facility], Partial fill u... Start Date: 03/08/23 Stop Date: 03/08/24 Status: Ordered loratadine 10 mg oral tablet 1, tablet, By Mouth, Daily, PRN, # 30 tablet, Refills 11, Maintenance, NEEDED FOR ALLERGY SYMPTOMS WATERY, ITCHY RED EYES, SNEEZING FOR ALLERGIC RHINITIS, 08/30/23 16:24:00 EDT, Route to Pharmacy Electronically, [facility], 175.2, cm, 08/02/23... Start Date: 08/30/23 Status: Ordered Milk of Magnesia 8% oral suspension 30 mL, By Mouth, Daily at bedtime, FOR CONSTIPATION RYDW=0083 MG., # 900 mL, 5 Refills, Maintenance, 10/05/23 12:52:00 EST, [facility], 175.2, cm, 08/02/23 10:30:00 EDT, Height Start Date: 10/05/23 Status: Ordered omeprazole 40 mg oral enteric coated capsule See Instructions, TAKE 1 CAPSULE BY MOUTH DAILY FOR GERD IN AM MAY OPEN CAPSULE, # 30 capsule, 5 Refills, Maintenance, 10/26/23 8:21:00 EST, [facility], 175.2, cm, 08/02/23 10:30:00 EDT, Height Start Date: 10/26/23 Status: Ordered polyethylene glycol 3350 oral powder for reconstitution See Instructions, MIX 17GM WITH 8 OUNCES OF WATER OR JUICE DAILY AND TAKE BY MOUTH AT 5PM FOR CONSTIPATION, # 510 Gm, 5 Refills, Maintenance, 10/26/23 9:47:00 EST, [facility], 30, MIX 17GM WITH 8 OUNCES OF WATER OR JUICE DAILY AND TAKE BY MOUTH A... Start Date: 10/26/23 Status: Ordered pravastatin 40 mg oral tablet See Instructions, TAKE 1 TABLET BY MOUTH DAILY IN THE PM FOR HYPERLIPIDEMIA, # 30 tablet, 5 Refills, Maintenance, 05/19/23 0:31:00 EDT, [facility], 175.2, cm, 05/13/23 11:02:00 EDT, Height Start Date: 05/19/23 Status: Ordered Profola oral tablet 1 tablet, By Mouth, Daily, # 30 tablet, 11 Refills, Maintenance, 06/24/23 10:40:00 EDT, [facility], Partial fill upon patient request if [...] Confirmed Active UI (urinary incontinence) Confirmed Active 33858; repeat 202015; repeat 2018 3egd 2011 barretts, repeat 2014 4egd 2010 positive barretts repeat 2011 5C2 6colonoscopy 2006 nl repeat 2016 7repeat 2024 61689 Social History Social History Type Response Smoking Status Never smoker entered on: 06/25/16 Sex Patient Care team information Care Team Personnel Name: Hannah Roque RN Position: [facility] RN Member Role: Primary Care Nurse Name: Reggie Godinez RN Position: [facility] RN Member Role: Primary Care Nurse Name: Christiane Cedillo RN Position: [facility] RN Member Role: Primary Care Nurse Name: Brandon Freeman MD Position: [facility] Physician - Primary Care Member Role: PCP Address: Address: [address] [place] [address]- [place] Name: Janeen Hoskins RN Position: [facility] RN Member Role: Primary Care Nurse Name: Frantz Mi III, RN Position: [facility] RN Member Role: Primary Care Nurse Name: Tahmina DATA CONVERSION ANALYST, Cate Melgar Position: Reference Physician Member Role: Primary Care Nurse Address: Address: [address] [place] [address]- [place] Name: Fay Morton NP Position: [facility] Medical Student Member Role: Primary Care Nurse Name: Massiel Lu RN Position: [facility] RN Member Role: Primary Care Nurse Name: Lurdes Mujica RN Position: [facility] RN Member Role: Primary Care Nurse Name: Brandie Horvath RN Position: [facility] [employer] Member Role: Primary Care Nurse Name: Claribel Howe RN Position: [facility] SN RN Member Role: Primary Care Nurse Care Team Related Persons Name: JOHAN PERKINS Name: DAWOOD DE LOS SANTOS Address: [address] [address] Name: JENNIFER JUAREZ Address: home [address] [place] [address]
--- OUTSIDE RECORDS SUMMARY | 2024-02-26 13:17 | XMS_ITS | Continuity of Care Document ---
Author Organization [facility] Chace lt Address [address] [place] [address]- Care Team Providers Care Cement Sprayer Helper Name Role Phone La MADISON, Brandon Chamorro Primary Care Physician [phone] [facility] 10[facility]23 - 11/25/23 [facility] Adult [address] [place] [address]- Allergies, Adverse Reactions, Alerts Substance Reaction Severity Status azithromycin Active macrolide antibiotics Active Dust Active ketolides Active Immunizations Given and Recorded Vaccine Date Status Refusal Reason pneumococcal 20-valent conjugate vaccine 08/02/23 Given Influenza Virus Vaccine (oldterm) 07/25/23 Recorde d Influenza Virus Vaccine (oldterm) 08/31/20 Recorde d Influenza Virus Vaccine (oldterm) 1 07/18/09 Given Influenza Virus Vaccine (oldterm) 2 09/02/07 Given [id number] 12y+ bivalent booster vax 07/22/22 Recorded tetanus-diphtheria [...] GIVEN 5Admin Note: [facility] CLINIC 6Admin Note: [employer] [facility] VIS [id number] given 7Admin Note: given in clinic Medications acetaminophen 325 mg oral tablet 2, tablet, By Mouth, Every 6 hours, PRN, YEIW=943CS., # 60 tablet, Refills 0, Maintenance, NEEDED FOR FEVER>100.5 OR PAIN SHOWN BY FACIAL GRIMACE NOTIFY MD IF USED >, 09/13/23 10:09:00 EST, Route to Pharmacy Electronically, [facility], 175.2,... Start Date: 09/13/23 Stop Date: 09/16/23 Status: Ordered bacitracin zinc 500 units/g topical ointment See Instructions, APPLY SMALL AMOUNT TOPICALLY TO SUPERFICIAL WOUNDS 4 TIMES A DAY NEEDED AN ANTIBACTERIAL / CALL MD IF USING FOR MORE THAN 7 DAYS, # 28 Gm, 11 Refills, Maintenance, 11/09/22 15:57:00 EST, [facility], 7, APPLY SMALL AMOUNT T... Start [...] supp, 11 Refills, Maintenance, 12/16/22 13:35:00 EST, [facility], 175.2, cm, 07/27/22 11:37:00 EDT, Height [...] capsule, 11 Refills, Maintenance, 06/21/23 14:02:00 EDT, [facility], 30, TAKE 1 CAPSULE BY MOUTH [...] Stop 04/06/24 13:54:00 EDT, 04/05/23 13:54:00 EDT, [facility], 5, ONE... Start Date: 04/05/23 Stop Date: 04/06/24 Status: Ordered Ditropan XL 10 mg oral tablet, extended release 10, mg, 1, tablet, By Mouth, Daily, 0, 01/03/07 9:24:09, Print ANNE-MARIE Number, [id number], Constant Indicator Start Date: 01/03/07 Status: Ordered DOK 100 mg oral tablet See Instructions, TAKE 1 TABLET BY MOUTH TWICE DAILY (AM AND PM) (STOOL SOFTENER EQUIVALENT), # 60 tablet, 5 Refills, Maintenance, 02/02/23 15:38:00 EDT, [facility], 175.2, cm, 02/01/23 15:11:00EDT, Height Start [...] Instructions Replace Required Details, Route toPharmacy Electronically, [facility], 175.2, cm... Start Date: 04/09/20 Status: Ordered fit to pt fit to pt, See Instructions, # 1 units, Refills 0, Tot. Refills 0, Maintenance, rigid cervical collar. Fit to pt., 06/21/18 15:59:47 EDT, Compound Start Date: 06/21/18 Status: Ordered Flomax 0.4 mg oral capsule 0.4, mg, 1, capsule, By Mouth, Daily, 0, 0, 03/06/07 9:24:42, Print ANNE-MARIE Number, [id number], Constant Indicator Start Date: 01/03/07 Status: Ordered [...] 12/25/18 11:23:03 EST, Route to Pharmacy Electronically, [id number], [facility] Start Date: 12/25/18 Status: Ordered lactulose 10 gm/15 ml oral syrup = 20 Gm, By Mouth, Daily at bedtime, GIVE WITH., # 946 mL, 11 Refills, Maintenance, 09/27/23 9:40:00 EST, [facility], 31, TWO TABLESPOONFULS BY MOUTH DAILY [...] 03/08/23 11:54:00 EDT, Route to Pharmacy Electronically, [facility], Partial fill u... Start Date: 03/08/23 Stop Date: 03/08/24 Status: Ordered loratadine 10 mg oral tablet 1, tablet, By Mouth, Daily, PRN, # 30 tablet, Refills 11, Maintenance, NEEDED FOR ALLERGY SYMPTOMS WATERY, ITCHY RED EYES, SNEEZING FOR ALLERGIC RHINITIS, 08/30/23 16:24:00 EDT, Route to Pharmacy Electronically, [facility], 175.2, cm, 08/02/23... Start Date: 08/30/23 Status: Ordered Milk of Magnesia 8% oral suspension 30 mL, By Mouth, Daily at bedtime, FOR CONSTIPATION FUDW=2618 MG., # 900 mL, 5 Refills, Maintenance, 10/05/23 12:52:00 EST, [facility], 175.2, cm, 08/02/23 10:30:00 EDT, Height Start Date: 10/05/23 Status: Ordered omeprazole 40 mg oral enteric coated capsule See Instructions, TAKE 1 CAPSULE BY MOUTH DAILY FOR GERD IN AM MAY OPEN CAPSULE, # 30 capsule, 5 Refills, Maintenance, 10/26/23 8:21:00 EST, [facility], 175.2, cm, 08/02/23 10:30:00 EDT, Height Start Date: 10/26/23 Status: Ordered polyethylene glycol 3350 oral powder for reconstitution See Instructions, MIX 17GM WITH 8 OUNCES OF WATER OR JUICE DAILY AND TAKE BY MOUTH AT 5PM FOR CONSTIPATION, # 510 Gm, 5 Refills, Maintenance, 10/26/23 9:47:00 EST, [facility], 30, MIX 17GM WITH 8 OUNCES OF WATER OR JUICE DAILY AND TAKE BY MOUTH A... Start Date: 10/26/23 Status: Ordered pravastatin 40 mg oral tablet 1 tablet, By Mouth, Daily, IN THE PM FOR HYPERLIPIDEMIA., # 30 tablet, 5 Refills, Maintenance, 11/09/23 7:50:00 EST, [facility], 175.2, cm, 08/02/23 10:30:00 EDT, Height Start Date: 11/09/23 Status: Ordered Profola oral tablet 1 tablet, By Mouth, Daily, # 30 tablet, 11 Refills, Maintenance, 06/24/23 10:40:00 EDT, [facility], Partial fill upon patient request if [...] 1 Refills, Maintenance, 05/11/22 14:45:00 EDT, Cream, [facility], Partial fill upon patient request if [...] tablet, 5 Refills, Maintenance, 04/04/23 21:00:00 EDT, [facility], 30, TAKE 1 TABLET BY MOUTH [...] Confirmed Active UI (urinary incontinence) Confirmed Active 25091; repeat 202015; repeat 2017 3egd 2011 barretts, repeat 2014 4egd 2010 positive barretts repeat 2012 5C2 6colonoscopy 2007 nl repeat 2017 7repeat 202 [id number] Social History Social History Type Response Smoking [...] Primary Care Member Role: PCP Address: Address: [address] [place] [address]- [place] Name: Janeen Hoskins RN Position: [facility] RN Member Role: Primary Care Nurse Name: Frantz Mi III, RN Position: [facility] RN Member Role: Primary Care Nurse Name: Tahmina LUZ, Cate Melgar Position: Reference Physician Member Role: Primary Care Nurse Address: Address: [address] [place] [address]- Name: Massiel Lu RN Position: [facility] RN Member Role: Primary Care Nurse Name: Lurdes Mujica RN Position: [facility] RN Member Role: Primary Care Nurse Name: Brandie Horvath RN Position: [facility] Principal Scientist Member Role: Primary Care Nurse Name: Claribel Howe RN Position: [facility] RN Member Role: Primary Care Nurse Care Team Related Persons Name: JOHAN PERKINS Name: DAWOOD DE LOS SANTOS Address: home [address] [place] [id number] Name: JENNIFER JUAREZ Address: home [address] [place] [address]
--- OUTSIDE RECORDS SUMMARY | 2024-02-26 13:17 | XMS_ITS | Continuity of Care Document ---
[facility] Address [address] [place] [address]- Care Team Providers Care Supervisor Payroll Name Role Phone La MADISON, Brandon Chamorro Primary Care Physician [phone] [facility]counter [facility] Date[facility]): 05/16/23 - 06/15/23 [facility] Adult [address] [place] [address]- Allergies, Adverse Reactions, Alerts Substance Reaction Severity Status azithromycin Active macrolide antibiotics Active ketolides Active Dust Active Immunizations Given and Recorded Vaccine Date Status Refusal Reason [id number] 12y+ bivalent booster vax 07/22/22 Recorded tetanus-diphtheria [...] clinic 5Admin Note: [facility] 6Admin Note: [employer] [facility] VIS [id number] given 7Admin Note: given in clinic Medications acetaminophen 325 mg oral tablet 2, tablet, By Mouth, Every 6 hours, PRN, [id number]., # 60 tablet, Refills 0, Maintenance, NEEDED FOR FEVER>100.5 OR PAIN SHOWN BY FACIAL GRIMACE NOTIFY MD IF USED >, 11/12/22 9:30:00 EST, Route to Pharmacy Electronically, [facility], 175.2, c... Start Date: 11/12/22 Stop Date: 11/15/22 Status: Ordered bacitracin zinc 500 units/g topical ointment See Instructions, APPLY SMALL AMOUNT TOPICALLY TO SUPERFICIAL WOUNDS 4 TIMES A DAY NEEDED AN ANTIBACTERIAL / CALL MD IF USING FOR MORE THAN 7 DAYS, # 28 Gm, 11 Refills, Maintenance, 11/09/22 15:57:00 EST, [facility], 7, APPLY SMALL AMOUNT T... Start [...] supp, 11 Refills, Maintenance, 12/16/22 13:35:00 EST, [facility], 175.2, cm, 07/27/22 11:37:00 EDT, Height [...] 30 capsule, 11 Refills, Maintenance, 07/29/2211:36:00 EDT, [facility], 30, 1 capsule By Mouth Daily,Instr:FOR [...] Stop 04/06/24 13:54:00 EDT, 04/05/23 13:54:00 EDT, [facility], 5, ONE... Start Date: 04/05/23 Stop Date: 04/06/24 Status: Ordered Ditropan XL 10 mg oral tablet, extended release 10, mg, 1, tablet, By Mouth, Daily, 0, 01/03/07 9:24:09, Print ANNE-MARIE Number, [id number], Constant Indicator Start Date: 01/03/07 Status: Ordered DOK 100 mg oral tablet See Instructions, TAKE 1 TABLET BY MOUTH TWICE DAILY (AM AND PM) (STOOL SOFTENER EQUIVALENT), # 60 tablet, 5 Refills, Maintenance, 02/02/23 15:38:00 EDT, [facility], 175.2, cm, 02/01/23 15:11:00EDT, Height Start [...] Instructions Replace Required Details, Route toPharmacy Electronically, [facility], 175.2, cm... Start Date: 04/09/20 Status: Ordered fit to pt fit to pt, See Instructions, # 1 units, Refills 0, Tot. Refills 0, Maintenance, rigid cervical collar. Fit to pt., 06/21/18 15:59:47 EDT, Compound Start Date: 06/21/18 Status: Ordered Flomax 0.4 mg oral capsule 0.4, mg, 1, capsule, By Mouth, Daily, 0, 0, 01/03/07 9:24:42, Print ANNE-MARIE Number, [id number], Constant Indicator Start Date: 01/03/07 Status: Ordered hydrochlorothiazide 25 mg oral tablet 1, tablet, By Mouth, Daily in AM, FOR HTN/MONITOR BP/IF SYSTOLIC MORE THAN 160, DIASTOLIC MORE [id number], SYSTOLIC LESS THAN 90, OR DIASTOLIC LESS [...] Gm, 11 Refills, Maintenance, 12/11/19 11:11:00 EST, [facility], APPLY TO EXTERNAL HEMMORRHOIDS TWICE DAILY PRN PER DR FREEMAN, 175.2, cm, 10/12/19 8:18:00 EST, Height,... Start Date: 12/11/19 Status: Ordered ibuprofen 400 mg oral tablet 400 mg, 1, tablet, By Mouth, 3 times a day, PRN, # 30 tablet, Refills 1, Tot. Refills 1, Maintenance, as needed for pain, 12/25/18 11:23:03 EST, Route to Pharmacy Electronically, [id number], [facility] Start Date: 12/25/18 Status: Ordered lactulose 10 gm/15 ml oral syrup = 20 Gm, By Mouth, Daily at bedtime, # 946 mL, 11 Refills, Maintenance, 09/01/22 7:18:00 EDT, [facility], 31, 20 Gm By Mouth Daily [...] 03/08/23 11:54:00 EDT, Route to Pharmacy Electronically, [facility], Partial fill u... Start Date: 03/08/23 Stop Date: 03/08/24 Status: Ordered loratadine 10 mg oral tablet 1, tablet, By Mouth, Daily, PRN, # 30 tablet, Refills 11, NEEDED FOR ALLERGY SYMPTOMS WATERY, ITCHY RED EYES, SNEEZING FOR ALLERGIC RHINITIS, Route to Pharmacy Electronically, [facility], 175.2, cm, 07/20/21 10:29:00 EDT, Height Start Date: 11/10/21 Status: Ordered Milk of Magnesia 8% oral suspension 30 mL, By Mouth, Daily at bedtime, FOR CONSTIPATION LIDG=8478 MG., # 900 mL, 5 Refills, Maintenance, 04/04/23 21:00:00 EDT, [facility], 175.2, cm, 02/01/23 15:11:00 EDT, Height Start Date: 04/04/23 Status: Ordered omeprazole 40 mg oral enteric coated capsule 1 capsule, By Mouth, Daily in AM, # 30 capsule, 5 Refills, Maintenance, 02/01/23 7:37:00 EDT, [facility], 175.2, cm, 07/27/22 11:37:00 EDT, Height Start Date: 02/01/23 Status: Ordered polyethylene glycol 3350 oral powder for reconstitution See Instructions, MIX 17GM WITH 8 OUNCES OF WATER OR JUICE DAILY AT 5PM FOR CONSTIPATION (POLYETHYLENE GLYCOL), # 510 Gm, 11 Refills, Physician Stop 10/07/23 11:17:00 EST, 10/07/22 11:17:00 EST, [facility], 30, MIX 17GM WITH 8 OUNCES OF WATER OR... Start Date: 10/07/22 Stop Date: 10/07/23 Status: Ordered pravastatin 40 mg oral tablet See Instructions, TAKE 1 TABLET BY MOUTH DAILY IN THE PM FOR HYPERLIPIDEMIA, # 30 tablet, 5 Refills, Maintenance, 05/19/23 0:31:00 EDT, [facility], 175.2, cm, 05/13/23 11:02:00 EDT, Height [...] 1 Refills, Maintenance, 05/11/22 14:45:00 EDT, Cream, [facility], Partial fill upon patient request if [...] tablet, 5 Refills, Maintenance, 04/04/23 21:00:00 EDT, [facility], 30, TAKE 1 TABLET BY MOUTH [...] Confirmed Active UI (urinary incontinence) Confirmed Active 59328; repeat 2020 82383; repeat 2018 3egd 2012 barretts, repeat 2014 4egd 2010 positive barretts repeat 2012 5C2 6colonoscopy 2007 nl repeat 2016 7repeat 2024 [id number] Social History Social History Type Response Smoking Status Never smoker entered on: 06/25/16 Sex Patient Care team information Care Team Personnel Name: Hannah Roque RN Position: [facility] RN Member Role: Primary Care Nurse Name: Reggie Godinez RN Position: [facility] RN Member Role: Primary Care Nurse Name: Christiane Cedillo RN Position: [facility] RN Member Role: Primary Care Nurse Name: Brandon Freeman MD Position: [facility] Physician - Primary Care Member Role: PCP Address: Address: [address] [place] [address]- Name: Janeen Hoskins RN Position: [facility] RN Member Role: Primary Care Nurse Name: Cydney Mckinney RN Position: [facility] RN Member Role: Primary Care Nurse Name: Frantz Mi III, RN Position: [facility] RN Member Role: Primary Care Nurse Name: Cate Martel NP Position: Reference Physician Member Role: Primary Care Nurse Address: Address: [address] [place] [address]- Name: Fay Morton RN Position: [facility] RN Member Role: Primary Care Nurse Name: Massiel Lu RN Position: [facility] RN Member Role: Primary Care Nurse Name: Lurdes Mujica RN Position: [facility] RN Member Role: Primary Care Nurse Name: Brandie Horvath RN Position: [facility] Hospital Senior Sales Assistant Member Role: Primary Care Nurse Name: Claribel Howe RN Position: [facility] SN RN Member Role: Primary Care Nurse Care Team Related Persons Name: JOHAN PERKINS Name: DAWOOD DE LOS SANTOS Address: [address] [address] Name: JENNIFER JUAREZ Address: home [address] [place] [id number]
--- OUTSIDE RECORDS SUMMARY | 2024-02-26 13:17 | XMS_ITS | Continuity of Care Document ---
[facility] Address [address] [place] [address]- Care Team Providers Care Case Checker Name Role Phone La MADISON, Brandon Chamorro Primary Care Physician [facility] Date[facility]): 08/10[facility]23 - 09/09/23 [facility] Adult [address] [place] [address]- Allergies, Adverse Reactions, Alerts Substance Reaction Severity Status azithromycin Active macrolide antibiotics Active Dust Active ketolides Active Immunizations Given and Recorded Vaccine Date Status Refusal Reason pneumococcal 20-valent conjugate vaccine 08/02/23 Given Influenza Virus Vaccine (oldterm) 07/25/23 Recorde d Influenza Virus Vaccine (oldterm) 08/31/20 Recorde d Influenza Virus Vaccine (oldterm) 1 07/18/09 Given Influenza Virus Vaccine (oldterm) 2 09/02/07 Given [id number] 12y+ bivalent booster vax 07/22/22 Recorded tetanus-diphtheria [...] GIVEN 5Admin Note: [facility] 6Admin Note: [employer] [facility] VIS [id number] given 7Admin Note: given in clinic Medications acetaminophen 325 mg oral tablet 2, tablet, By Mouth, Every 6 hours, PRN, [id number]., # 60 tablet, Refills 0, Maintenance, NEEDED FOR FEVER>100.5 OR PAIN SHOWN BY FACIAL GRIMACE NOTIFY MD IF USED >, 11/12/22 9:30:00 EST, Route to Pharmacy Electronically, [facility], 175.2, c... Start Date: 11/12/22 Stop Date: 11/15/22 Status: Ordered bacitracin zinc 500 units/g topical ointment See Instructions, APPLY SMALL AMOUNT TOPICALLY TO SUPERFICIAL WOUNDS 4 TIMES A DAY NEEDED AN ANTIBACTERIAL / CALL MD IF USING FOR MORE THAN 7 DAYS, # 28 Gm, 11 Refills, Maintenance, 11/09/22 15:57:00 EST, [facility], 7, APPLY SMALL AMOUNT T... Start [...] supp, 11 Refills, Maintenance, 12/16/22 13:35:00 EST, [facility], 175.2, cm, 07/27/22 11:37:00 EDT, Height [...] capsule, 11 Refills, Maintenance, 06/21/23 14:02:00 EDT, [facility], 30, TAKE 1 CAPSULE BY MOUTH [...] Stop 04/06/24 13:54:00 EDT, 04/05/23 13:54:00 EDT, [facility], 5, ONE... Start Date: 04/05/23 Stop Date: 04/06/24 Status: Ordered Ditropan XL 10 mg oral tablet, extended release 10, mg, 1, tablet, By Mouth, Daily, 0, 01/03/07 9:24:09, Print ANNE-MARIE Number, [id number], Constant Indicator Start Date: 01/03/07 Status: Ordered DOK 100 mg oral tablet See Instructions, TAKE 1 TABLET BY MOUTH TWICE DAILY (AM AND PM) (STOOL SOFTENER EQUIVALENT), # 60 tablet, 5 Refills, Maintenance, 02/02/23 15:38:00 EDT, [facility], 175.2, cm, 02/01/23 15:11:00EDT, Height Start [...] Instructions Replace Required Details, Route toPharmacy Electronically, [facility], 175.2, cm... Start Date: 04/09/20 Status: Ordered fit to pt fit to pt, See Instructions, # 1 units, Refills 0, Tot. Refills 0, Maintenance, rigid cervical collar. Fit to pt., 06/21/18 15:59:47 EDT, Compound Start Date: 06/21/18 Status: Ordered Flomax 0.4 mg oral capsule 0.4, mg, 1, capsule, By Mouth, Daily, 0, 0, 01/03/07 9:24:42, Print ANNE-MARIE Number, [email or web address], Constant Indicator Start Date: 01/03/07 Status: Ordered guaiFENesin 100 mg/5 mL oral liquid 10 mL, By Mouth, 4 times a day, PRN NEEDED FOR COUGH/NOTIFY MD IF NO RELIEF AFTER 48 HRS / DOSE =, GUAIFENESIN (TUSSIN MUCUS CONGEST 100MG/5ML) IC ROBAFEN., # 240 mL, 4 Refills, Maintenance, 07/12/23 14:12:00 EDT, [facility], 175.2, cm, ... Start Date: 07/12/23 [...] Gm, 11 Refills, Maintenance, 12/11/19 11:11:00 EST, [facility], APPLY TO EXTERNAL HEMMORRHOIDS TWICE DAILY PRN PER DR FREEMAN, 175.2, cm, 10/12/19 8:18:00 EST, Height,... Start Date: 12/11/19 Status: Ordered ibuprofen 400 mg oral tablet 400 mg, 1, tablet, By Mouth, 3 times a day, PRN, # 30 tablet, Refills 1, Tot. Refills 1, Maintenance, as needed for pain, 12/25/18 11:23:03 EST, Route to Pharmacy Electronically, [id number], [facility] Start Date: 12/25/18 Status: Ordered lactulose 10 gm/15 ml oral syrup = 20 Gm, By Mouth, Daily at bedtime, # 946 mL, 11 Refills, Maintenance, 09/01/22 7:18:00 EDT, [facility], 31, 20 Gm By Mouth Daily [...] 03/08/23 11:54:00 EDT, Route to Pharmacy Electronically, [facility], Partial fill u... Start Date: 03/08/23 Stop Date: 03/08/24 Status: Ordered loratadine 10 mg oral tablet 1, tablet, By Mouth, Daily, PRN, # 30 tablet, Refills 11, Maintenance, NEEDED FOR ALLERGY SYMPTOMS WATERY, ITCHY RED EYES, SNEEZING FOR ALLERGIC RHINITIS, 08/30/23 16:24:00 EDT, Route to Pharmacy Electronically, [facility], 175.2, cm, 08/02/23... Start Date: 08/30/23 Status: Ordered Milk of Magnesia 8% oral suspension 30 mL, By Mouth, Daily at bedtime, FOR CONSTIPATION BAEF=8242 MG., # 900 mL, 5 Refills, Maintenance, 04/04/23 21:00:00 EDT, [facility], 175.2, cm, 02/01/23 15:11:00 EDT, Height Start Date: 04/04/23 Status: Ordered omeprazole 40 mg oral enteric coated capsule See Instructions, TAKE 1 CAPSULE BY MOUTH DAILY FOR GERD IN AM MAY OPEN CAPSULE, # 30 capsule, 2 Refills, Maintenance, 07/25/23 20:17:00 EDT, [facility], 175.2, cm, 05/13/23 11:02:00 EDT, Height Start Date: 07/25/23 Status: Ordered polyethylene glycol 3350 oral powder for reconstitution See Instructions, MIX 17GM WITH 8 OUNCES OF WATER OR JUICE DAILY AT 5PM FOR CONSTIPATION (POLYETHYLENE GLYCOL), # 510 Gm, 11 Refills, Physician Stop 10/07/23 11:17:00 EST, 10/07/22 11:17:00 EST, [facility], 30, MIX 17GM WITH 8 OUNCES OF WATER OR... Start Date: 10/07/22 Stop Date: 10/07/23 Status: Ordered pravastatin 40 mg oral tablet See Instructions, TAKE 1 TABLET BY MOUTH DAILY IN THE PM FOR HYPERLIPIDEMIA, # 30 tablet, 5 Refills, Maintenance, 05/19/23 0:31:00 EDT, [facility], 175.2, cm, 05/13/23 11:02:00 EDT, Height Start Date: 05/19/23 Status: Ordered Profola oral tablet 1 tablet, By Mouth, Daily, # 30 tablet, 11 Refills, Maintenance, 06/24/23 10:40:00 EDT, [facility], Partial fill upon patient request if [...] 1 Refills, Maintenance, 05/11/22 14:45:00 EDT, Cream, [facility], Partial fill upon patient request if [...] tablet, 5 Refills, Maintenance, 04/04/23 21:00:00 EDT, [facility], 30, TAKE 1 TABLET BY MOUTH [...] Confirmed Active UI (urinary incontinence) Confirmed Active 95987; repeat 2020; repeat 2017 3egd 2011 barretts, repeat 2014 4egd 2009 positive barretts repeat 2011 5C2 6colonoscopy 2006 nl repeat 2016 7repeat 2024 [id number] Social History Social History Type Response Smoking Status Never smoker entered on: 06/25/16 Sex Patient Care team information Care Team Personnel Name: Hannah Roque RN Position: [facility] RN Member Role: Primary Care Nurse Name: Reggie Godinez RN Position: [facility] RN Member Role: Primary Care Nurse Name: Christiane Cedillo RN Position: [facility] RN Member Role: Primary Care Nurse Name: Brandon Freeman MD Position: [facility] Physician - Primary Care Member Role: PCP Address: Address: [address] [place] [address]- [place] Name: Janeen Hoskins RN Position: [facility] RN Member Role: Primary Care Nurse Name: Frantz Mi III, RN Position: [facility] RN Member Role: Primary Care Nurse Name: Tahmina SUPERVISING FLOORPERSON, Cate Melgar Position: Reference Physician Member Role: Primary Care Nurse Address: Address: [address] [place] [phone]- [place] Name: Fay Morton RN Position: [facility] RN Member Role: Primary Care Nurse Name: Massiel Lu RN Position: [facility] RN Member Role: Primary Care Nurse Name: Lurdes Mujica RN Position: [facility] RN Member Role: Primary Care Nurse Name: Brandie Horvath RN Position: [facility] Dip Stand Loader Member Role: Primary Care Nurse Name: Shyam RN, Hteekaolivia Position: [facility] SN RN Member Role: Primary Care Nurse Care Team Related Persons Name: JOHAN PERKINS Name: DAWOOD DE LOS SANTOS Address: home [address] [place] [address] Name: JENNIFER JUAREZ Address: home [address] [place] [address]
--- OUTSIDE RECORDS SUMMARY | 2024-02-26 13:17 | XMS_ITS | Continuity of Care Document ---
Author Organization [facility] Chace lt Address [address] [place] [address]- Care Team Providers Care Welcome Wagon Host/Hostess Name Role Phone La MADISON, Brandon Chamorro Primary Care Physician [facility]23 - 06/18/23 [facility] Adult [address] [place] [address]- Allergies, Adverse Reactions, Alerts Substance Reaction Severity Status azithromycin Active macrolide antibiotics Active Dust Active ketolides Active Immunizations Given and Recorded Vaccine Date Status Refusal Reason [id number] 12y+ bivalent booster vax 07/22/22 Recorded tetanus-diphtheria [...] clinic 5Admin Note: [facility] 6Admin Note: [employer] [facility] VIS [id number] given 7Admin Note: given in clinic Medications acetaminophen 325 mg oral tablet 2, tablet, By Mouth, Every 6 hours, PRN, [id number]., # 60 tablet, Refills 0, Maintenance, NEEDED FOR FEVER>100.5 OR PAIN SHOWN BY FACIAL GRIMACE NOTIFY MD IF USED >, 11/12/22 9:30:00 EST, Route to Pharmacy Electronically, [facility], 175.2, c... Start Date: 11/12/22 Stop Date: 11/15/22 Status: Ordered bacitracin zinc 500 units/g topical ointment See Instructions, APPLY SMALL AMOUNT TOPICALLY TO SUPERFICIAL WOUNDS 4 TIMES A DAY NEEDED AN ANTIBACTERIAL / CALL MD IF USING FOR MORE THAN 7 DAYS, # 28 Gm, 11 Refills, Maintenance, 11/09/22 15:57:00 EST, [facility], 7, APPLY SMALL AMOUNT T... Start [...] supp, 11 Refills, Maintenance, 12/16/22 13:35:00 EST, [facility], 175.2, cm, 07/27/22 11:37:00 EDT, Height [...] 30 capsule, 11 Refills, Maintenance, 07/29/2211:36:00 EDT, [facility], 30, 1 capsule By Mouth Daily,Instr:FOR [...] Stop 04/06/24 13:54:00 EDT, 04/05/23 13:54:00 EDT, [facility], 5, ONE... Start Date: 04/05/23 Stop Date: 04/06/24 Status: Ordered Ditropan XL 10 mg oral tablet, extended release 10, mg, 1, tablet, By Mouth, Daily, 0, 01/03/07 9:24:09, Print ANNE-MARIE Number, [id number], Constant Indicator Start Date: 01/03/07 Status: Ordered DOK 100 mg oral tablet See Instructions, TAKE 1 TABLET BY MOUTH TWICE DAILY (AM AND PM) (STOOL SOFTENER EQUIVALENT), # 60 tablet, 5 Refills, Maintenance, 02/02/23 15:38:00 EDT, [facility], 175.2, cm, 02/01/23 15:11:00EDT, Height Start [...] Instructions Replace Required Details, Route toPharmacy Electronically, [facility], 175.2, cm... Start Date: 04/09/20 Status: Ordered fit to pt fit to pt, See Instructions, # 1 units, Refills 0, Tot. Refills 0, Maintenance, rigid cervical collar. Fit to pt., 06/21/18 15:59:47 EDT, Compound Start Date: 06/21/18 Status: Ordered Flomax 0.4 mg oral capsule 0.4, mg, 1, capsule, By Mouth, Daily, 0, 0, 01/03/07 9:24:42, Print ANNE-MARIE Number, [id number], Constant Indicator Start Date: 01/03/07 Status: Ordered hydrochlorothiazide 25 mg oral tablet 1, tablet, By Mouth, Daily in AM, FOR HTN/MONITOR BP/IF SYSTOLIC MORE THAN 160, DIASTOLIC MORE [id number], SYSTOLIC LESS THAN 90, OR DIASTOLIC LESS [...] Gm, 11 Refills, Maintenance, 12/11/19 11:11:00 EST, [facility], APPLY TO EXTERNAL HEMMORRHOIDS TWICE DAILY PRN PER DR FREEMAN, 175.2, cm, 10/12/19 8:18:00 EST, Height,... Start Date: 12/11/19 Status: Ordered ibuprofen 400 mg oral tablet 400 mg, 1, tablet, By Mouth, 3 times a day, PRN, # 30 tablet, Refills 1, Tot. Refills 1, Maintenance, as needed for pain, 12/25/18 11:23:03 EST, Route to Pharmacy Electronically, [id number], [facility] Start Date: 12/25/18 Status: Ordered lactulose 10 gm/15 ml oral syrup = 20 Gm, By Mouth, Daily at bedtime, # 946 mL, 11 Refills, Maintenance, 09/01/22 7:18:00 EDT, [facility], 31, 20 Gm By Mouth Daily [...] 03/08/23 11:54:00 EDT, Route to Pharmacy Electronically, [facility], Partial fill u... Start Date: 03/08/23 Stop Date: 03/08/24 Status: Ordered loratadine 10 mg oral tablet 1, tablet, By Mouth, Daily, PRN, # 30 tablet, Refills 11, NEEDED FOR ALLERGY SYMPTOMS WATERY, ITCHY RED EYES, SNEEZING FOR ALLERGIC RHINITIS, Route to Pharmacy Electronically, [facility], 175.2, cm, 07/20/21 10:29:00 EDT, Height Start Date: 11/10/21 Status: Ordered Milk of Magnesia 8% oral suspension 30 mL, By Mouth, Daily at bedtime, FOR CONSTIPATION KNSB=9847 MG., # 900 mL, 5 Refills, Maintenance, 04/04/23 21:00:00 EDT, [facility], 175.2, cm, 02/01/23 15:11:00 EDT, Height Start Date: 04/04/23 Status: Ordered omeprazole 40 mg oral enteric coated capsule 1 capsule, By Mouth, Daily in AM, # 30 capsule, 5 Refills, Maintenance, 02/01/23 7:37:00 EDT, [facility], 175.2, cm, 07/27/22 11:37:00 EDT, Height Start Date: 02/01/23 Status: Ordered polyethylene glycol 3350 oral powder for reconstitution See Instructions, MIX 17GM WITH 8 OUNCES OF WATER OR JUICE DAILY AT 5PM FOR CONSTIPATION (POLYETHYLENE GLYCOL), # 510 Gm, 11 Refills, Physician Stop 10/07/23 11:17:00 EST, 10/07/22 11:17:00 EST, [facility], 30, MIX 17GM WITH 8 OUNCES OF WATER OR... Start Date: 10/07/22 Stop Date: 10/07/23 Status: Ordered pravastatin 40 mg oral tablet See Instructions, TAKE 1 TABLET BY MOUTH DAILY IN THE PM FOR HYPERLIPIDEMIA, # 30 tablet, 5 Refills, Maintenance, 05/19/23 0:31:00 EDT, [facility], 175.2, cm, 05/13/23 11:02:00 EDT, Height [...] 1 Refills, Maintenance, 05/11/22 14:45:00 EDT, Cream, [facility], Partial fill upon patient request if [...] tablet, 5 Refills, Maintenance, 04/04/23 21:00:00 EDT, [facility], 30, TAKE 1 TABLET BY MOUTH [...] Confirmed Active UI (urinary incontinence) Confirmed Active 30347; repeat 2020 57119; repeat 2018 3egd 2012 barretts, repeat 2014 4egd 2010 positive barretts repeat 2012 5C2 6colonoscopy 2007 nl repeat 2016 7repeat 2024 51255 Social History Social History Type Response Smoking Status Never smoker entered on: 06/25/16 Sex Patient Care team information Care Team Personnel Name: Hannah Roque RN Position: [facility] RN Member Role: Primary Care Nurse Name: Reggie Godinez RN Position: [facility] RN Member Role: Primary Care Nurse Name: Christiane Cedillo RN Position: [facility] RN Member Role: Primary Care Nurse Name: Brandon Freeman MD Position: [facility] Physician - Primary Care Member Role: PCP Address: Address: [address] [place] [phone]- [place] Name: Janeen Hoskins RN Position: [facility] RN Member Role: Primary Care Nurse Name: Cydney Mckinney RN Position: [facility] RN Member Role: Primary Care Nurse Name: Frantz Mi III, RN Position: [facility] RN Member Role: Primary Care Nurse Name: Cate Martel NP Position: Reference Physician Member Role: Primary Care Nurse Address: Address: [address] [place] [phone]- [place] Name: Fay Morton RN Position: [facility] RN Member Role: Primary Care Nurse Name: Massiel Lu RN Position: [facility] RN Member Role: Primary Care Nurse Name: Lurdes Mujica RN Position: [facility] RN Member Role: Primary Care Nurse Name: Brandie Horvath RN Position: [facility] Safety Representative Member Role: Primary Care Nurse Name: Claribel Howe RN Position: [facility] SN RN Member Role: Primary Care Nurse Care Team Related Persons Name: JOHAN PERKINS Name: DAWOOD DE LOS SANTOS Address: [address] [address] Name: JENNIFER JUAREZ Address: home [address] [place], [place] [id number]
--- OUTSIDE RECORDS SUMMARY | 2024-02-26 13:17 | XMS_ITS | Continuity of Care Document ---
Author Organization [facility] Jose Juan Chace lt Address [address] [place] [address]- Care Team Providers Care Home Theater Expert Name Role Phone [place], Brandon Chamorro Primary Care Physician Encounter [facility] Date(s): 08/09/23 - 09/08/23 [facility], [place] [address] [place] [address]- Allergies, Adverse Reactions, Alerts Substance Reaction Severity Status azithromycin Active macrolide antibiotics Active Dust Active ketolides Active Immunizations Given and Recorded Vaccine Date Status Refusal Reason pneumococcal 20-valent conjugate vaccine 08/02/23 Given Influenza Virus Vaccine (oldterm) 07/25/23 Recorde d Influenza Virus Vaccine (oldterm) 08/31/20 Recorde d Influenza Virus Vaccine (oldterm) 1 07/18/09 Given Influenza Virus Vaccine (oldterm) 2 09/02/07 Given [id number] 12y+ bivalent booster vax 07/22/22 Recorded tetanus-diphtheria [...] GIVEN 5Admin Note: [facility]U [facility]IC 6Admin Note: Aigou [facility] VIS [id number] given 7Admin Note: given in clinic Medications acetaminophen 325 mg oral tablet 2, tablet, By Mouth, Every 6 hours, PRN, [id number]., # 60 tablet, Refills 0, Maintenance, NEEDED FOR FEVER>100.5 OR PAIN SHOWN BY FACIAL GRIMACE NOTIFY MD IF USED >, 11/12/22 9:30:00 EST, Route to Pharmacy Electronically, [facility], 175.2, c... Start Date: 11/12/22 Stop Date: 11/15/22 Status: Ordered bacitracin zinc 500 units/g topical ointment See Instructions, APPLY SMALL AMOUNT TOPICALLY TO SUPERFICIAL WOUNDS 4 TIMES A DAY NEEDED AN ANTIBACTERIAL / CALL MD IF USING FOR MORE THAN 7 DAYS, # 28 Gm, 11 Refills, Maintenance, 11/09/22 15:57:00 EST, [facility], 7, APPLY SMALL AMOUNT T... Start [...] supp, 11 Refills, Maintenance, 12/16/22 13:35:00 EST, [facility], 175.2, cm, 07/27/22 11:37:00 EDT, Height [...] capsule, 11 Refills, Maintenance, 06/21/23 14:02:00 EDT, [facility], 30, TAKE 1 CAPSULE BY MOUTH [...] Stop 04/06/24 13:54:00 EDT, 04/05/23 13:54:00 EDT, [facility], 5, ONE... Start Date: 04/05/23 Stop Date: 04/06/24 Status: Ordered Ditropan XL 10 mg oral tablet, extended release 10, mg, 1, tablet, By Mouth, Daily, 0, 01/03/07 9:24:09, Print ANNE-MARIE Number, [id number], Constant Indicator Start Date: 01/03/07 Status: Ordered DOK 100 mg oral tablet See Instructions, TAKE 1 TABLET BY MOUTH TWICE DAILY (AM AND PM) (STOOL SOFTENER EQUIVALENT), # 60 tablet, 5 Refills, Maintenance, 02/02/23 15:38:00 EDT, [facility], 175.2, cm, 02/01/23 15:11:00EDT, Height Start [...] Instructions Replace Required Details, Route toPharmacy Electronically, [facility], 175.2, cm... Start Date: 04/09/20 Status: Ordered fit to pt fit to pt, See Instructions, # 1 units, Refills 0, Tot. Refills 0, Maintenance, rigid cervical collar. Fit to pt., 06/21/18 15:59:47 EDT, Compound Start Date: 06/21/18 Status: Ordered Flomax 0.4 mg oral capsule 0.4, mg, 1, capsule, By Mouth, Daily, 0, 0, 01/03/07 9:24:42, Print ANNE-MARIE Number, [id number], Constant Indicator Start Date: 01/03/07 Status: Ordered guaiFENesin 100 mg/5 mL oral liquid 10 mL, By Mouth, 4 times a day, PRN NEEDED FOR COUGH/NOTIFY MD IF NO RELIEF AFTER 48 HRS / DOSE =, GUAIFENESIN (TUSSIN MUCUS CONGEST 100MG/5ML) IC ROBAFEN., # 240 mL, 4 Refills, Maintenance, 07/12/23 14:12:00 EDT, [facility], 175.2, cm, ... Start Date: 07/12/23 [...] Gm, 11 Refills, Maintenance, 12/11/19 11:11:00 EST, [facility], APPLY TO EXTERNAL HEMMORRHOIDS TWICE DAILY PRN PER DR FREEMAN, 175.2, cm, 10/12/19 8:18:00 EST, Height,... Start Date: 12/11/19 Status: Ordered ibuprofen 400 mg oral tablet 400 mg, 1, tablet, By Mouth, 3 times a day, PRN, # 30 tablet, Refills 1, Tot. Refills 1, Maintenance, as needed for pain, 12/25/18 11:23:03 EST, Route to Pharmacy Electronically, [id number], [facility] Start Date: 12/25/18 Status: Ordered lactulose 10 gm/15 ml oral syrup = 20 Gm, By Mouth, Daily at bedtime, # 946 mL, 11 Refills, Maintenance, 09/01/22 7:18:00 EDT, [facility], 31, 20 Gm By Mouth Daily [...] 03/08/23 11:54:00 EDT, Route to Pharmacy Electronically, [facility], Partial fill u... Start Date: 03/08/23 Stop Date: 03/08/24 Status: Ordered loratadine 10 mg oral tablet 1, tablet, By Mouth, Daily, PRN, # 30 tablet, Refills 11, Maintenance, NEEDED FOR ALLERGY SYMPTOMS WATERY, ITCHY RED EYES, SNEEZING FOR ALLERGIC RHINITIS, 08/30/23 16:24:00 EDT, Route to Pharmacy Electronically, [facility], 175.2, cm, 08/02/23... Start Date: 08/30/23 Status: Ordered Milk of Magnesia 8% oral suspension 30 mL, By Mouth, Daily at bedtime, FOR CONSTIPATION [id number]=2188 MG., # 900 mL, 5 Refills, Maintenance, 04/04/23 21:00:00 EDT, [facility], 175.2, cm, 02/01/23 15:11:00 EDT, Height Start Date: 04/04/23 Status: Ordered omeprazole 40 mg oral enteric coated capsule See Instructions, TAKE 1 CAPSULE BY MOUTH DAILY FOR GERD IN AM MAY OPEN CAPSULE, # 30 capsule, 2 Refills, Maintenance, 07/25/23 20:17:00 EDT, [facility], 175.2, cm, 05/13/23 11:02:00 EDT, Height Start Date: 07/25/23 Status: Ordered polyethylene glycol 3350 oral powder for reconstitution See Instructions, MIX 17GM WITH 8 OUNCES OF WATER OR JUICE DAILY AT 5PM FOR CONSTIPATION (POLYETHYLENE GLYCOL), # 510 Gm, 11 Refills, Physician Stop 10/07/23 11:17:00 EST, 10/07/22 11:17:00 EST, [facility], 30, MIX 17GM WITH 8 OUNCES OF WATER OR... Start Date: 10/07/22 Stop Date: 10/07/23 Status: Ordered pravastatin 40 mg oral tablet See Instructions, TAKE 1 TABLET BY MOUTH DAILY IN THE PM FOR HYPERLIPIDEMIA, # 30 tablet, 5 Refills, Maintenance, 05/19/23 0:31:00 EDT, [facility], 175.2, cm, 05/13/23 11:02:00 EDT, Height Start Date: 05/19/23 Status: Ordered Profola oral tablet 1 tablet, By Mouth, Daily, # 30 tablet, 11 Refills, Maintenance, 06/24/23 10:40:00 EDT, [facility], Partial fill upon patient request if [...] 1 Refills, Maintenance, 05/11/22 14:45:00 EDT, Cream, [facility], Partial fill upon patient request if [...] tablet, 5 Refills, Maintenance, 04/04/23 21:00:00 EDT, [facility], 30, TAKE 1 TABLET BY MOUTH [...] Confirmed Active UI (urinary incontinence) Confirmed Active 29628; repeat 2020; repeat 2017 3egd 2011 barretts, repeat 2014 4egd 2009 positive barretts repeat 2011 5C2 6colonoscopy 2006 nl repeat 2016 7repeat 2024 [id number] Social History Social History Type Response Smoking Status Never smoker entered on: 06/25/16 Sex Patient Care team information Care Team Personnel Name: Hannah Roque RN Position: [facility] RN Member Role: Primary Care Nurse Name: Reggie Godinez RN Position: [facility] RN Member Role: Primary Care Nurse Name: Christiane Cedillo RN Position: [facility] RN Member Role: Primary Care Nurse Name: Brandon Freeman MD Position: [facility] Physician - Primary Care Member Role: PCP Address: Address: [address] [place] [address]- [place] Name: Janeen Hoskins RN Position: [facility] RN Member Role: Primary Care Nurse Name: Frantz Mi III, RN Position: [facility] RN Member Role: Primary Care Nurse Name: Tahmina WATER GAS OPERATOR, Cate Melgar Position: Reference Physician Member Role: Primary Care Nurse Address: Address: [address] [place] [id number]- [place] Name: Fay Morton RN Position: [facility] RN Member Role: Primary Care Nurse Name: Massiel Lu RN Position: [facility] RN Member Role: Primary Care Nurse Name: Lurdes Mujica RN Position: [facility] RN Member Role: Primary Care Nurse Name: Brandie Horvath RN Position: [facility] Coding And Reimbursement Specialist Member Role: Primary Care Nurse Name: Shyam RN, Hteekaolivia Position: [facility] SN RN Member Role: Primary Care Nurse Care Team Related Persons Name: JOHAN PERKINS Name: DAWOOD DE LOS SANTOS Address: home [address] [place] [id number] Name: JENNIFER JUAREZ Address: home [address] [place] [id number]
--- NOTE | 2024-02-26 13:21 | PC.NURSE ---
patient presented to ED from longterm with complaints of fever, general malaise and productive cough. upon arrival patient found to be febrile 100.5 rectally, hypotensive. sepsis protocal ordered, patient medicated per DEC, labs and cultures sent. patient is deaf and non verbal unable to make his needs known. patient has support group manager at bedside,
[2024-02-26 13:22] LABS: Lactic Acid 1.2 mmol/L (0.5-2.0)
[2024-02-26 13:26] LABS: Alanine Aminotransferase 20 U/L (0-40); Albumin Level 3.3 g/dL (3.5-5.0); Alkaline Phosphatase 54 U/L (39-117); Anion Gap 12 (12-20); Aspartate Amino Transferase 20 U/L (5-37); Bilirubin Total 0.5 mg/dL (0.0-1.0); Blood Urea Nitrogen 25 mg/dL (9-16); Calcium 8.2 mg/dL (8.4-10.2); Carbon Dioxide 26 mmol/L (22-29); Chloride 99 mmol/L (96-108); Creatinine Clr Calc Pharmacy 55.2; Estimated Glomerular Filt Rate 57; Glucose Random 105 mg/dL (60-115); Potassium 3.7 mmol/L (3.3-5.1); Sodium 133 mmol/L (135-145); Total Protein 5.8 g/dL (6.5-8.0)
[2024-02-26 13:47] LABS: Influenza A PCR POSITIVE (Negative); Influenza B PCR NEGATIVE (Negative); Resp Syncy Virus RNA Qual PCR NEGATIVE (Negative); SARS COV2 PCR INHOUSE NEGATIVE (Negative)
[2024-02-26] MEDS: 0.9 % Sodium Chloride 1,000 ML 999 ML IVCONT (14:19)
[2024-02-26] MEDS: Albumin Human 25 % 100 ML IV ×3 (14:30→21:47)
[2024-02-26 15:00] LABS: Appearance Urine Clear; Color Urine Yellow; Glucose Urine UA Negative (Negative); Leukocyte Esterase Urine Negative (Negative); Nitrite Urine Negative (Negative); PH 6.5 (5.0-9.0); Specific Gravity - Urine 1.015 (1.005-1.025); Urine Blood Negative (Negative); Urine Ketones Negative (Negative); Urine Protein Negative (Neg-Trace)
[2024-02-26] MEDS: Oseltamivir Phosphate 75 MG CAPSULE PO (16:48)
--- NOTE | 2024-02-26 17:10 | P.HPHOSP_ITS ---
History of Present Illness Date of Service: 02/26/24 Attending physician on admission: Maryse Cruz Chief Complaint: lethargy, weakness, fever 73-year-old male with history of GERD, Bustamante's esophagus, BPH, hyperlipidemia, hypertension, chronic constipation, history of DVT no longer on anticoagulation, glaucoma, history of aspiration who is both deaf and mute presented to the ED earlier today from [facility] due to lethargy, weakness, cough, and fever of 102. Per facility staff, started with a nonproductive cough last night. This morning he did not get out of bed when he is typically the 1st resident out of bed when breakfast is being made. He has not been his self and has been generally weak. Per staff, there have been no observed instances of aspiration recently patient is on a pureed diet with thickened liquids. On arrival, he was febrile to 100.5 with hypotension of 87/49 which improved to 99/54 on admission following 3 L IV NS and albumin. Vitals otherwise stable. He is mildly leukopenic at 4.2 with stable normocytic anemia with H/H 12.4/36.5%, platelets 151. Renal function baseline, electrolyte levels normal. Lactic acid 1.2. Procalcitonin pending. Urinalysis unremarkable. Negative for COVID-19, RSV but positive for influenza A. Chest x-ray shows small right pleural effusion with hazy bibasilar opacities possibly reflecting infectious versus inflammatory process. He is afebrile at time of admission. correction staff deny any other sick contacts at the facility. In the ED, has received fluids as noted above and 75 mg Tamiflu. Review of Systems 2 Review of Systems: Yes Unobtainable due to mental condition and Unobtainable due to mental status [facility] Medical History HTN (hypertension) BPH (benign prostatic hyperplasia) Barretts syndrome GERD (gastroesophageal reflux disease) [place] (hard of hearing) Non-verbal learning disorder Social History Household Members: Unknown / Unable to assess Housing: Assisted Living Facility Unable to assess alcohol history related to: Unable to respond and Unknown Patient Tobacco Use Status: Tobacco use Unknown Advance Directives: Yes Advance Directives on File: Yes Advance Directives Date on File: 01/09/24 service: No Current occupational status: disabled Meds Allergies Allergy/AdvReac Type Severity Reaction Status Date / Time azithromycin [AZITHROMYCIN] Allergy Unknown UNKOWN Verified 02/26/24 12:48 Macrolide Antibiotics Allergy Unknown unknown Verified 02/26/24 12:48 [MACROLIDE ANTIBIOTICS] Macrolides and ketolides Allergy Unknown Unknown Uncoded 02/26/24 12:48 Active Medications: Current Medications Acetaminophen (Acetaminophen 325 Mg Tablet) 650 mg PO Q6H PRN PRN Reason: Pain, Mild (Pain Scale 1-3) Enoxaparin Sodium (Enoxaparin Sodium 40 Mg/0.4 Ml Syringe) 40 mg SUBCUT Q24H [facility] Sodium Chloride (Ns) 1,000 mls @ 999 mls/hr IV .Q1H1M [facility] Stop: 02/26/24 18:15 Ondansetron HCl (Ondansetron Hcl 4 Mg/2 Ml Vial) 4 mg IVPUSH Q8H PRN PRN Reason: Nausea and Vomiting Oseltamivir Phosphate (Oseltamivir Phosphate 30 Mg Capsule) 30 mg PO Q12H [facility] Stop: 03/02/24 21:01 Senna (Sennosides 8.6 Mg Tablet) 17.2 mg PO BEDTIME PRN PRN Reason: Constipation Sodium Chloride (0.9 % Sodium Chloride Flush 3 Ml Syringe) 3 ml IVFLUSH QSHIFT [facility] Home Medications ?Medication ?Instructions ?Recorded ?Confirmed ?Last Taken ?Type docusate sodium 100 mg tablet 200 mg PO DAILY 11/19/20 02/25/22 Unknown History hydrochlorothiazide 25 mg tablet 25 mg PO DAILY@0800 11/19/20 02/25/22 Unknown History lisinopril 20 mg tablet 20 mg PO DAILY 11/19/20 02/25/22 Unknown History pravastatin 40 mg tablet 40 mg PO BEDTIME 11/19/20 02/25/22 Unknown History lactulose 10 gram/15 mL oral 30 ml PO BEDTIME 08/25/21 02/25/22 Unknown History solution loratadine 10 mg tablet 10 mg PO DAILY PRN Allergy Symptoms 08/25/21 02/25/22 Unknown History multivitamin with folic acid 400 1 tab PO BEDTIME 08/25/21 02/25/22 Unknown History mcg tablet (Thera) omeprazole 40 mg capsule,delayed 40 mg PO DAILY 08/25/21 02/25/22 Unknown History release Lactobacillus rhamnosus GG 10 1 cap PO DAILY 02/25/22 02/25/22 Unknown History billion cell capsule (Culturelle) bacitracin zinc 500 unit/gram 1 appl topical QID 02/25/22 02/25/22 Unknown History topical ointment lorazepam 2 mg tablet 1 tab PO DAILY PRN Anxiety 02/25/22 02/25/22 Unknown History magnesium hydroxide 400 mg/5 mL 30 ml PO BEDTIME 02/25/22 02/25/22 Unknown History oral suspension (Milk of Magnesia) polyethylene glycol 3350 17 17 g PO DAILY@1700 02/25/22 02/25/22 Unknown History gram/dose oral powder (Miralax) acetaminophen 325 mg tablet mg PO PRN 02/17/24 Unknown History bisacodyl 10 mg rectal suppository mg NJ 02/17/24 Unknown History (OneLAX Bisacodyl) omeprazole 40 mg capsule,delayed 40 mg PO DAILY 02/17/24 Unknown History release sodium phosphates 19 gram-7 ml NJ 02/17/24 Unknown History gram/118 mL enema (Enema Disposable) terbinafine HCl 1 % topical cream 1 appl topical BID PRN 02/17/24 Unknown History (Antifungal (terbinafine)) Physical Exam 2 Vital Signs and Narrative: Vital Signs: Last Vital Signs Temp 99.2 F 02/26/24 16:04 Pulse 88 02/26/24 16:04 Resp 15 02/26/24 16:04 BP 99/54 L 02/26/24 16:04 Pulse Ox 94 02/26/24 16:04 O2 Del Method Room Air 02/26/24 16:04 BMI result Body Mass Index 23.0 Constitutional - Awake and Alert, No apparent distress Eyes - PERRLA, EOMI Cardiovascular - S1S2, RRR, No edema Respiratory - Normal lung expansion, Normal respiratory effort, No respiratory distress, CTA bilaterally Gastrointestinal - NT / ND; +BS; No rebound or guarding Extremities - no calf tenderness bilaterally, no swelling Skin - Warm/Dry Neurological - Alert & oriented x3 Psychological - Appropriate affect Results Labs 02/26/24 12:56 02/26/24 12:56 Labs: Laboratory Results - last 24 hr 02/26/24 02/26/24 02/26/24 12:56 12:59 14:55 MCV 88.4 MCH 30.0 MCHC 34.0 RDW 14.0 Plt Count 151 L MPV 11.9 Immature Gran % (Auto) 0.2 Neut % (Auto) 76.5 H Lymph % (Auto) 11.9 L Ray % (Auto) 11.0 Eos % (Auto) 0.2 Baso % (Auto) 0.2 Lymph # (Auto) 0.5 L Ray # (Auto) 0.5 Eos # (Auto) 0.0 Baso # (Auto) 0.0 Abs Immat Gran (auto) 0.01 Absolute Neuts (auto) 3.2 Absolute Nucleated RBC 0.000 Nucleated RBC % (auto) 0.0 PT 12.8 INR 1.1 Anion Gap 12 Estim Creat Clear Calc 55.2 Estimated GFR 57 Random Glucose 105 Lactic Acid 1.2 Calcium 8.2 L D Total Bilirubin 0.5 AST 20 ALT 20 Alkaline Phosphatase 54 Total Protein 5.8 L Albumin 3.3 L Urine Color Yellow Urine Appearance Clear Urine pH 6.5 Ur Specific [place] 1.015 Urine Protein Negative Urine Glucose (UA) Negative Urine Ketones Negative Urine Blood Negative Urine Nitrite Negative Ur Leukocyte Esterase Negative Influenza Type A (PCR) POSITIVE A Influenza Type B (PCR) NEGATIVE RSV RNA Qual (PCR) NEGATIVE SARS-CoV-2 RNA (RT-PCR) NEGATIVE Imaging Radiologist's Impressions: Impressions Chest X-Ray 02/26/24 14:18 IMPRESSION: Small right pleural effusion. Hazy bibasilar opacities could reflect infectious or inflammatory process. Assessment and Plan (1) Influenza: Status: Acute (2) Hypotension: Status: Acute Plan 73-year-old male with history of GERD, Bustamante's esophagus, BPH, hyperlipidemia, hypertension, chronic constipation, history of DVT no longer on anticoagulation, glaucoma, history of aspiration who is both deaf and mute admitted for influenza a #Influenza A -Mildly leukopenic 4.2. Febrile to 100.5. NO sirs criteria/sepsis. No hypoxia -CXR shows trace/small R pleural effusion and patchy basicalr opacities likely r/t influenza. Check PCT. Low suspicion for bacterial pneumonia at this time. -renally dosed Tamiflu -guaifenesin p.r.n. #Acute hypotension -likely r/t hypoperfusion from poor PO intake/hypovolemia and received hctz and lisinopril this am -resolved on admission however bp remains soft at 90/51. Give 1L IV NS bolus. Monitor volume status -hold antihypertensives # BPH -continue home meds # GERD/Bustamante's esophagus -PPI # chronic constipation -continue bowel regimen # HLD -continue statin # CKD stage 3 -renal function baseline DVT prophylaxis-Lovenox Full code Patient has guardian-sister, Sharmin Mitchell [phone] Patient requires inpatient stay at least 2 midnights due to lethargy and weakness with poor p.o. intake with resulting hypotension that was complicated by antihypertensive administration this morning at [facility] and will require aggressive IV fluid resuscitation for blood pressure support and close monitoring of vital signs Quality Stroke Does the patient have a stroke diagnosis?: No VTE Prior VTE?: No VTE Risk Level:: Medical - moderate - high VTE Device Contraindication: Treatment Not Indicated VTE Drug Contraindication: N/A - Med Ordered
--- NOTE | 2024-02-26 17:39 | PHA.MEDREC ---
Addendum entered by Viridiana Silveira RPh 02/26/24 17:48: PT USES LORAZEPAM 2 M 1 HOUR PRIOR TO DENTAL APPT AND DIAZEPAM 10 MG 2 HR PRIOR TO EYE/PODIATRY APPT. Original Note: Pharmacy Consult ? Medication Reconciliation Pharmacy has completed the medication reconciliation. Used list from [facility]. Per office visit on 02/16, flomax was increased to 0.8mg at bedtime.
[2024-02-26] MEDS: Enoxaparin Sodium 40 MG/0.4 ML SYRINGE SUBCUT (17:40)
[2024-02-26] MEDS: 0.9 % Sodium Chloride 1,000 ML 999 ML IV (17:40)
[2024-02-26] MEDS: Acetaminophen 325 MG TABLET 650 MG PO (17:40)
--- NOTE | 2024-02-26 17:50 | PC.NURSE ---
patient bladder scanned 230 ml
[2024-02-26 17:58] LABS: Procalcitonin 0.14 ng/mL
[2024-02-26] MEDS: Finasteride 5 MG TABLET PO (18:53)
[2024-02-26] MEDS: Lactulose 20 GM/30 ML SOLUTION PO (18:53)
--- NOTE | 2024-02-26 20:03 | PC.NURSE ---
DR. JOHNSON AWARE OF VITALS. PT STILL FEBRILE. BP 96/47. PT SITTING UP IN BED APPEARS WELL; SKIN [employer] TRACKING STAFF IN ROOM; RESP EVEN AND UNLABORED. PT IS NONVERBAL AT BASELINE. ASSISTED STAFF AT BEDSIDE.
[2024-02-26] MEDS: Docusate Sodium 100 MG CAPSULE PO (20:17)
[2024-02-26] MEDS: Multivitamin TABLET 1 TAB PO (20:17)
[2024-02-26] MEDS: Pravastatin Sodium 40 MG TABLET PO (20:17)
[2024-02-26] MEDS: Milk of Magnesia 30 ML ORAL.SUSP PO (20:17)
[2024-02-26] MEDS: Acetaminophen 1,000 MG/100 ML PIGGYBACK 400 MG IV (21:28)
[2024-02-27] VITALS (9 sets, daily range): BP systolic 101–128; BP diastolic 50–65; PULSE 66–83; RESP 13–22; TEMP 36.6–38.3; O2SAT 88–94; BMI 26.3
--- NOTE | 2024-02-27 03:05 | PC.NURSE ---
pt desat to 83% on RA. pt repositioned to sit upright as he was lying on his side. sats remain 85% on RA sitting up; placed on 2L NC per o2 protocol. sats 91% on 2L NC. Dr. Adrián bland.
[2024-02-27 04:50] LABS: Basophils Percent Auto 0.3 % (0-2); Eosinophils Absolute Auto 0.1 X10*3/uL (0.0-0.4); Hematocrit 32.9 % (42.0-52.0); Hemoglobin 10.7 g/dl (14.0-18.0); Imm Gran Abs Auto 0.03 X10*3/uL (0.00-0.03); Imm Gran Pct Auto 0.5 % (0.0-0.4); Lymphocytes Percent Auto 32.8 % (20-40); MANUAL DIFF FLAG SCAN; Mean Corpuscular HGB Conc 32.5 g/dl (31.0-36.0); Mean Corpuscular Hemoglobin 29.7 pg (27.0-33.0); Mean Corpuscular Volume 91.4 fL (80.0-98.0); Mean Platelet Volume 12.2 fL (9.4-12.4); Monocytes Absolute Auto 0.8 X10*3/uL (0.1-1.2); Monocytes Percent Auto 14.1 % (2-11); Neutrophils Absolute Auto 3.1 x10*3/uL (2.0-8.3); Neutrophils Percent Auto 51.3 % (45-73); Platelet Count 114 X10*3/uL (160-400); Red Cell Distribution Width 14.4 % (11.0-16.0); SCAN SMEAR FLAG 1
[2024-02-27 05:01] LABS: Anion Gap 12 (12-20); Blood Urea Nitrogen 23 mg/dL (9-16); Calcium 7.9 mg/dL (8.4-10.2); Carbon Dioxide 24 mmol/L (22-29); Chloride 104 mmol/L (96-108); Creatinine Clr Calc Pharmacy 62.3; Estimated Glomerular Filt Rate > 60; Glucose Random 79 mg/dL (60-115); Potassium 3.7 mmol/L (3.3-5.1); Sodium 136 mmol/L (135-145)
[2024-02-27 05:21] LABS: SLIDE REVIEW VERIFIED
--- NOTE | 2024-02-27 06:17 | MHC.EDTECH ---
Pt found to be incontinent of stool. Complete bedding change done, Pt cleaned and repositioned.
[2024-02-27] MEDS: Omeprazole 40 MG CAPSULE.DR PO (06:33)
[2024-02-27] MEDS: Acetaminophen 325 MG TABLET 650 MG PO ×2 (06:33→20:21)
--- NOTE | 2024-02-27 09:27 | MHC.CLN ---
NUTRITION CONSULT FOR SKIN INTEGRITY. PATIENT WITH REDNESS TO BUTTOCKS AND BILATERAL HEELS. DIET=REGULAR, PUREE, NECTAR THICK LIQUIDS. NO ADDITIONAL NUTRITION INTERVENTIONS AT THIS TIME.
[2024-02-27] MEDS: Oseltamivir Phosphate 30 MG CAPSULE PO ×2 (10:15→20:23)
[2024-02-27] MEDS: Docusate Sodium 100 MG/10 ML LIQUID PO ×2 (10:16→20:21)
--- NOTE | 2024-02-27 10:29 | P.PNIM_ITS ---
Subjective Subjective Date of Service: 02/27/24 Interval History: febrile to 100.9 this am; requiring O2 to keep SaO2 90% deaf Review of Systems Review of Systems: Yes Other (unable to obtain as pt deaf) Physical Exam 2 Vital Signs: Vital Signs: Last Vital Signs Temp 98 F 02/27/24 09:12 Pulse 66 02/27/24 09:12 Resp 19 02/27/24 09:12 BP 105/58 L 02/27/24 09:12 Pulse Ox 92 02/27/24 10:23 O2 Del Method Nasal Cannula 02/27/24 10:23 O2 Flow Rate 2 02/27/24 10:23 BMI result Body Mass Index 26.3 Gen: in no acute distress HEENT: sclera anicteric, moist mucus membranes Neck: supple Lungs: clear to auscultation bilaterally Heart: regular rate and rhythm, no murmurs Abd: soft, non-tender, non-distended Ext: no edema Skin: warm/well-perfused Neuro: alert, daef Psych: appropriate affect Objective Data Active Medications Acetaminophen (Acetaminophen 325 Mg Tablet) 650 mg PO Q6H PRN PRN Reason: Pain, Mild (Pain Scale 1-3) Last Admin: 02/27/24 06:33 Dose: 650 mg Documented By: GEN Bisacodyl (Bisacodyl 10 Mg Supp.Rect) 10 mg [place] DAILY@2000 PRN PRN Reason: constiaption Clotrimazole (Clotrimazole 1 % Cream 15 Gm Tube) 1 appl TOPICAL BID PRN PRN Reason: Rash Docusate Sodium (Docusate Sodium 100 Mg/10 Ml Liquid) 100 mg PO BID [facility] Last Admin: 02/27/24 10:16 Dose: 100 mg Documented By: TAY Enoxaparin Sodium (Enoxaparin Sodium 40 Mg/0.4 Ml Syringe) 40 mg SUBCUT Q24H [facility] Last Admin: 02/26/24 17:40 Dose: 40 mg Documented By: JANE Finasteride (Finasteride 5 Mg Tablet) 5 mg PO DAILY@1800 [facility] Last Admin: 02/26/24 18:53 Dose: 5 mg Documented By: JANE Guaifenesin (Guaifenesin 100 Mg/5 Ml Liquid) 10 ml PO Q6H PRN PRN Reason: cough/cold Hydrocortisone (Hydrocortisone 1 % Cream 28.35 Gm Tube) 1 appl TOPICAL BID PRN; Protocol PRN Reason: Hemorrhoids Lactulose (Lactulose 20 Gm/30 Ml Solution) 20 gm PO DAILY@1800 [facility] Last Admin: 02/26/24 18:53 Dose: 20 gm Documented By: JANE Loratadine (Loratadine 10 Mg Tablet) 10 mg PO DAILY PRN PRN Reason: Allergy Symptoms Magnesium Hydroxide (Milk Of Magnesia 30 Ml Oral.Susp) 30 ml PO BEDTIME [facility] Last Admin: 02/26/24 20:17 Dose: 30 ml Documented By: GEN Multivitamins/Vitamin C (Multivitamin Tablet) 1 tab PO DAILY@2100 [facility] Last Admin: 02/26/24 20:17 Dose: 1 tab Documented By: GEN Omeprazole (Omeprazole 40 Mg Capsule.) 40 mg PO DAILY@0630 [facility] Last Admin: 02/27/24 06:33 Dose: 40 mg Documented By: GEN Ondansetron HCl (Ondansetron Hcl 4 Mg/2 Ml Vial) 4 mg IVPUSH Q8H PRN PRN Reason: Nausea and Vomiting Oseltamivir Phosphate (Oseltamivir Phosphate 30 Mg Capsule) 30 mg PO Q12H [facility] Stop: 03/02/24 21:01 Last Admin: 02/27/24 10:15 Dose: 30 mg Documented By: TAY Polyethylene Glycol (Polyethylene Glycol 3350 17 Gm Powd.Pack) 17 gm PO DAILY@1700 [facility] Pravastatin Sodium (Pravastatin Sodium 40 Mg Tablet) 40 mg PO BEDTIME [facility] Last Admin: 02/26/24 20:17 Dose: 40 mg Documented By: GEN Senna (Sennosides 8.6 Mg Tablet) 17.2 mg PO BEDTIME PRN PRN Reason: Constipation Sodium Biphosphate/Sodium Phosphate (Sodium Phosphate,[place]-Dibasic 133 Ml Enema) 133 ml [place] DAILY PRN PRN Reason: Constipation Sodium Chloride (0.9 % Sodium Chloride Flush 3 Ml Syringe) 3 ml IVFLUSH QSHIFT [facility] Last Admin: 02/27/24 07:25 Dose: Not Given Documented By: SANYA Non-Admin Reason: Med Not Available Labs 02/27/24 04:25 02/27/24 04:25 Labs: Laboratory Results - last 24 hr 02/26/24 02/26/24 02/26/24 12:56 12:59 14:55 MCV 88.4 MCH 30.0 MCHC 34.0 RDW 14.0 Plt Count 151 L MPV 11.9 Immature Gran % (Auto) 0.2 Neut % (Auto) 76.5 H Lymph % (Auto) 11.9 L [place] % (Auto) 11.0 Eos % (Auto) 0.2 Baso % (Auto) 0.2 Lymph # (Auto) 0.5 L [place] # (Auto) 0.5 Eos # (Auto) 0.0 Baso # (Auto) 0.0 Abs Immat Gran (auto) 0.01 Absolute Neuts (auto) 3.2 Absolute Nucleated RBC 0.000 Nucleated RBC % (auto) 0.0 Smear Tech's Comments PT 12.8 INR 1.1 Anion Gap 12 Estim Creat Clear Calc 55.2 Estimated GFR 57 Random Glucose 105 Lactic Acid 1.2 Calcium 8.2 L D Total Bilirubin 0.5 AST 20 ALT 20 Alkaline Phosphatase 54 Total Protein 5.8 L Albumin 3.3 L Procalcitonin 0.14 Urine Color Yellow Urine Appearance Clear Urine pH 6.5 Ur Specific [place] 1.015 Urine Protein Negative Urine Glucose (UA) Negative Urine Ketones Negative Urine Blood Negative Urine Nitrite Negative Ur Leukocyte Esterase Negative Influenza Type A (PCR) POSITIVE A Influenza Type B (PCR) NEGATIVE RSV RNA Qual (PCR) NEGATIVE SARS-CoV-2 RNA (RT-PCR) NEGATIVE 02/27/24 04:25 MCV 91.4 MCH 29.7 MCHC 32.5 RDW 14.4 Plt Count 114 L MPV 12.2 Immature Gran % (Auto) 0.5 H Neut % (Auto) 51.3 Lymph % (Auto) 32.8 [place] % (Auto) 14.1 H Eos % (Auto) 1.0 Baso % (Auto) 0.3 Lymph # (Auto) 2.0 [place] # (Auto) 0.8 Eos # (Auto) 0.1 Baso # (Auto) 0.0 Abs Immat Gran (auto) 0.03 Absolute Neuts (auto) 3.1 Absolute Nucleated RBC 0.000 Nucleated RBC % (auto) 0.0 Smear Tech's Comments VERIFIED PT INR Anion Gap 12 Estim Creat Clear Calc 62.3 Estimated GFR > 60 Random Glucose 79 Lactic Acid Calcium 7.9 L Total Bilirubin AST ALT Alkaline Phosphatase Total Protein Albumin Procalcitonin Urine Color Urine Appearance Urine pH Ur Specific [place] Urine Protein Urine Glucose (UA) Urine Ketones Urine Blood Urine Nitrite Ur Leukocyte Esterase Influenza Type A (PCR) Influenza Type B (PCR) RSV RNA Qual (PCR) SARS-CoV-2 RNA (RT-PCR) Assessment and Plan (1) Hypotension: Status: Acute (2) Influenza: Status: Acute Plan d2 73yo deaf M with GERD, Bustamante's esophagus, BPH, HLD, HTN, chronic constipation, hx DVT no longer on AC, glaucoma, hx aspiration presenting with lethargy, cough, and fever AHRF due to influenza A - oseltamivir 02/25- - wean O2 as tolerated - PCT low and time course not indicative of bacterial superinfection; hold off on ABX hypotension - due to hypovolemia/poor PO intake in setting of receiving antihypertensives; resolved after colloid + crystalloid resuscitation - continue to hold HCTZ + lisinopril CKD3 - SCr at baseline HTN - hold antihypertensives as above GERD/Bustamante's esophagus: PPI BPH: finasteride chronic aspiration: puree solids, nectar liquids chronic constipation: bowel regimen HLD: statin VTE ppx: LMWH dispo: eventual return to long-term In my clinical judgment, the patient requires continued inpatient hospitalization for the following reasons: hypotension, hpyoxia Total time managing care of this patient today: 40 minutes. Quality Stroke Does the patient have a stroke diagnosis?: No VTE Prior VTE?: No VTE Risk Level:: Medical - moderate - high VTE Device Contraindication: Treatment Not Indicated VTE Drug Contraindication: N/A - Med Ordered
--- NOTE | 2024-02-27 10:44 | PC.NURSE ---
Pt to unit from ED via stretcher. Alert, nonveral (baseline). O2 sats 90-92% om 2L NC. No apparent distress noted. custodial staff at bedside and will alert us if will be leaving pt.
--- NOTE | 2024-02-27 12:59 | MHC.CM.PN ---
pt lives in a assisted his sister tianna is his guardian she explins that pt is nonverbal and deaf the assisted [id number]/7 care [facility] ,the group manages medicaltion administration the assisted will provide van transportaion for pt when dcd
[2024-02-27] MEDS: Finasteride 5 MG TABLET PO (17:10)
[2024-02-27] MEDS: Lactulose 20 GM/30 ML SOLUTION PO (17:10)
[2024-02-27] MEDS: polyethylene glycoL 3350 17 GM POWD.PACK PO (17:10)
[2024-02-27] MEDS: Enoxaparin Sodium 40 MG/0.4 ML SYRINGE SUBCUT (17:11)
[2024-02-27] MEDS: 0.9 % Sodium Chloride Flush 3 ML SYRINGE IVFLUSH ×2 (17:16→20:23)
[2024-02-27] MEDS: Milk of Magnesia 30 ML ORAL.SUSP PO (20:21)
[2024-02-27] MEDS: Pravastatin Sodium 40 MG TABLET PO (20:23)
[2024-02-27] MEDS: Multivitamin TABLET 1 TAB PO (20:24)
[2024-02-28 04:00] VITALS: BP 136/64; PULSE 77; RESP 22; TEMP 36.8; O2SAT 94
--- NOTE | 2024-02-28 04:36 | PC.NURSE ---
Addendum entered by Daya Garcia RN 02/28/24 05:10: [employer] reiterated what RN had said earlier in the evening, staff member now states they will be compliant. 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 staff members have been educated on the spread on infection. Ana VELAZQUEZ supervisor production department notifie.
[2024-02-28] MEDS: Omeprazole 40 MG CAPSULE.DR PO (05:39)
[2024-02-28 05:43] LABS: Hematocrit 35.7 % (42.0-52.0); Hemoglobin 12.5 g/dl (14.0-18.0); Mean Corpuscular Hemoglobin 31.5 pg (27.0-33.0); Mean Corpuscular Volume 89.9 fL (80.0-98.0); Platelet Count 139 X10*3/uL (160-400); Red Blood Count 3.97 X10*6/uL (4.60-5.80); Red Cell Distribution Width 14.2 % (11.0-16.0); White Blood Count 5.3 X10*3/uL (4.8-10.8)
[2024-02-28 06:00] LABS: Anion Gap 12 (12-20); Blood Urea Nitrogen 16 mg/dL (9-16); Calcium 8.1 mg/dL (8.4-10.2); Carbon Dioxide 23 mmol/L (22-29); Chloride 106 mmol/L (96-108); Creatinine Clr Calc Pharmacy 80.2; Estimated Glomerular Filt Rate > 60; Glucose Random 81 mg/dL (60-115); Potassium 3.4 mmol/L (3.3-5.1); Sodium 138 mmol/L (135-145)
[2024-02-28 06:32] LABS: Procalcitonin 0.09 ng/mL
[2024-02-28 08:00] VITALS: BP 127/75; PULSE 77; RESP 20; TEMP 36.3; O2SAT 96
[2024-02-28] MEDS: Oseltamivir Phosphate 30 MG CAPSULE PO ×2 (08:35→19:59)
[2024-02-28] MEDS: Docusate Sodium 100 MG/10 ML LIQUID PO ×2 (08:35→19:59)
[2024-02-28] MEDS: 0.9 % Sodium Chloride Flush 3 ML SYRINGE IVFLUSH ×3 (08:37→20:14)
--- NOTE | 2024-02-28 10:32 | HO.PM.IMPN ---
Subjective Subjective Date of Service: 02/28/24 Interval History: per skilled nursing staff pt's mental status at baseline fever resolved hypoxic to 88% on RA yesterday, currently on 2L taking POs Review of Systems Review of Systems: Yes Unobtainable due to mental status Physical Exam Vital Signs: Vital Signs: Last Vital Signs Temp 97.4 F 02/28/24 08:00 Pulse 77 02/28/24 08:00 Resp 20 02/28/24 08:00 BP 127/75 02/28/24 08:00 Pulse Ox 96 02/28/24 08:00 O2 Del Method Nasal Cannula 02/28/24 08:00 O2 Flow Rate 2 02/28/24 08:00 BMI result Body Mass Index 26.3 Gen: in no acute distress HEENT: sclera anicteric, moist mucus membranes Neck: supple Lungs: clear to auscultation bilaterally Heart: regular rate and rhythm, no murmurs Abd: soft, non-tender, non-distended Ext: no edema Skin: warm/well-perfused Neuro: alert, daef Psych: appropriate affect Objective Data Active Medications Acetaminophen (Acetaminophen 325 Mg Tablet) 650 mg PO Q6H PRN PRN Reason: Pain, Mild (Pain Scale 1-3) Last Admin: 02/27/24 20:21 Dose: 650 mg Documented By: YENNY Bisacodyl (Bisacodyl 10 Mg Supp.Rect) 10 mg [place] DAILY@1999 PRN PRN Reason: constiaption Clotrimazole (Clotrimazole 1 % Cream 15 Gm Tube) 1 appl TOPICAL BID PRN PRN Reason: Rash Docusate Sodium (Docusate Sodium 100 Mg/10 Ml Liquid) 100 mg PO BID [facility] Last Admin: 02/28/24 08:35 Dose: 100 mg Documented By: TAY Enoxaparin Sodium (Enoxaparin Sodium 40 Mg/0.4 Ml Syringe) 40 mg SUBCUT Q24H [facility] Last Admin: 02/27/24 17:11 Dose: 40 mg Documented By: TAY Finasteride (Finasteride 5 Mg Tablet) 5 mg PO DAILY@1800 [facility] Last Admin: 02/27/24 17:10 Dose: 5 mg Documented By: TAY Guaifenesin (Guaifenesin 100 Mg/5 Ml Liquid) 10 ml PO Q6H PRN PRN Reason: cough/cold Hydrocortisone (Hydrocortisone 1 % Cream 28.35 Gm Tube) 1 appl TOPICAL BID PRN; Protocol PRN Reason: Hemorrhoids Lactulose (Lactulose 20 Gm/30 Ml Solution) 20 gm PO DAILY@1800 [facility] Last Admin: 02/27/24 17:10 Dose: 20 gm Documented By: TAY Loratadine (Loratadine 10 Mg Tablet) 10 mg PO DAILY PRN PRN Reason: Allergy Symptoms Magnesium Hydroxide (Milk Of Magnesia 30 Ml Oral.Susp) 30 ml PO BEDTIME [facility] Last Admin: 02/27/24 20:21 Dose: 30 ml Documented By: YENNY Multivitamins/Vitamin C (Multivitamin Tablet) 1 tab PO DAILY@2100 [facility] Last Admin: 02/27/24 20:24 Dose: 1 tab Documented By: YENNY Omeprazole (Omeprazole 40 Mg Capsule.Dr) 40 mg PO DAILY@0630 [facility] Last Admin: 02/28/24 05:39 Dose: 40 mg Documented By: YENNY Ondansetron HCl (Ondansetron Hcl 4 Mg/2 Ml Vial) 4 mg IVPUSH Q8H PRN PRN Reason: Nausea and Vomiting Oseltamivir Phosphate (Oseltamivir Phosphate 30 Mg Capsule) 30 mg PO Q12H [facility] Stop: 03/02/24 21:01 Last Admin: 02/28/24 08:35 Dose: 30 mg Documented By: TAY Polyethylene Glycol (Polyethylene Glycol 3350 17 Gm Powd.Pack) 17 gm PO DAILY@1700 [facility] Last Admin: 02/27/24 17:10 Dose: 17 gm Documented By: TAY Pravastatin Sodium (Pravastatin Sodium 40 Mg Tablet) 40 mg PO BEDTIME [facility] Last Admin: 02/27/24 20:23 Dose: 40 mg Documented By: YENNY Senna (Sennosides 8.6 Mg Tablet) 17.2 mg PO BEDTIME PRN PRN Reason: Constipation Sodium Biphosphate/Sodium Phosphate (Sodium Phosphate,[place]-Dibasic 133 Ml Enema) 133 ml [place] DAILY PRN PRN Reason: Constipation Sodium Chloride (0.9 % Sodium Chloride Flush 3 Ml Syringe) 3 ml IVFLUSH QSHIFT [facility] Last Admin: 02/28/24 08:37 Dose: 3 ml Documented By: TAY Labs 02/28/24 05:36 02/28/24 05:36 Labs: Laboratory Results - last 24 hr 02/28/24 05:36 MCV 89.9 MCH 31.5 MCHC 35.0 RDW 14.2 Plt Count 139 L MPV 13.0 H Absolute Nucleated RBC 0.000 Nucleated RBC % (auto) 0.0 Anion Gap 12 Estim Creat Clear Calc 80.2 Estimated GFR > 60 Random Glucose 81 Calcium 8.1 L Procalcitonin 0.09 Microbiology Microbiology Results: Microbiology 02/26/24 12:57 Blood Culture - Preliminary Blood - Venous No growth after 24 hours. 02/26/24 12:56 Blood Culture - Preliminary Blood - Venous No growth after 24 hours. Assessment and Plan (1) Hypotension: Status: Acute (2) Influenza: Status: Acute Plan d3 73yo deaf M with GERD, Bustamante's esophagus, BPH, HLD, HTN, chronic constipation, hx DVT no longer on AC, glaucoma, hx aspiration presenting with lethargy, cough, and fever AHRF due to influenza A - oseltamivir 02/25- - wean O2 as tolerated - PCT low and time course not indicative of bacterial superinfection; hold off on ABX hypotension - due to hypovolemia/poor PO intake in setting of receiving antihypertensives; resolved after colloid + crystalloid resuscitation - continue to hold HCTZ + lisinopril CKD3 - SCr at baseline HTN - hold antihypertensives as above GERD/Bustamante's esophagus: PPI BPH: finasteride chronic aspiration: puree solids, nectar liquids chronic constipation: bowel regimen HLD: statin VTE ppx: LMWH dispo: eventual return to skilled nursing In my clinical judgment, the patient requires continued inpatient hospitalization for the following reasons: hypoxia Total time managing care of this patient today: 35 minutes. Quality Stroke Does the patient have a stroke diagnosis?: No VTE Prior VTE?: No VTE Risk Level:: Medical - moderate - high VTE Device Contraindication: Treatment Not Indicated VTE Drug Contraindication: N/A - Med Ordered
--- NOTE | 2024-02-28 13:12 | HO.WOUND ---
Wound Consult: Initial 73yr old? M admitted to [facility] on 02/25 - See progress notes and H&P for detailed history.? Wound consult placed for Bilateral Heels and Buttock.? Patient and halfway aid agreeable to assessment and photo documentation - patient is nonverbal baseline per staff. Heel Sacrum Bilateral Heels and Sacrum assessed for redness - both areas are red but remain intact and blanchable. No pressure injury at this time. Both areas will benefit from foam dressing application and off loading pressure. Foams applied at bedside. Recommendations: 1. Turn and Reposition every 2 hours and as needed for patient comfort.? Use pillows or wedges to support off loading positions. 2. Off Load all bony prominences with use of pillows and heel boots if needed.? Apply Preventative foams where needed. ? 3. Monitor for incontinence and moisture control, use barrier creams when needed for prevention and treatment. 4. Bilateral Heel and Sacrum - Off Load Pressure. Routine cleansing. Apply foam dressing peel back and assess Q shift change every 3 days and PRN. Elevate heels off of bed with pillows. Re-consult wound care Nurse for wound deterioration or wound changes.
[2024-02-28 15:01] VITALS: BP 138/79; PULSE 80; RESP 18; TEMP 36.9; O2SAT 98
[2024-02-28] MEDS: Lactulose 20 GM/30 ML SOLUTION PO (17:35)
[2024-02-28] MEDS: Enoxaparin Sodium 40 MG/0.4 ML SYRINGE SUBCUT (17:35)
[2024-02-28] MEDS: guaiFENesin 100 MG/5 ML LIQUID 10 ML PO (17:35)
[2024-02-28] MEDS: Finasteride 5 MG TABLET PO (17:36)
[2024-02-28 19:50] VITALS: BP 139/69; PULSE 94; RESP 20; TEMP 39.4; O2SAT 95
[2024-02-28] MEDS: Pravastatin Sodium 40 MG TABLET PO (19:59)
[2024-02-28] MEDS: Milk of Magnesia 30 ML ORAL.SUSP PO (19:59)
[2024-02-28] MEDS: Acetaminophen 325 MG TABLET 650 MG PO (19:59)
[2024-02-28] MEDS: Multivitamin TABLET 1 TAB PO (19:59)
[2024-02-28] MEDS: Acetaminophen 1,000 MG/100 ML PIGGYBACK 400 MG IV (21:53)
--- NOTE | 2024-02-28 22:00 | MHC.PIE ---
p; temp 103 at 1949. prn tylenol given at 1958. temp cont to be 103 i; dr peng notified. new order tylenol iv now e; will cont to monitor
[2024-02-28 22:30] VITALS: TEMP 39
[2024-02-28 23:02] LABS: Lactic Acid 2.8 mmol/L (0.5-2.0)
--- NOTE | 2024-02-28 23:04 | MHC.PIE ---
p; lactic 2.8 i; dr peng notified e; [facility] cont [facility]
[2024-02-29 00:16] LABS: Reflex Lactate? Lactic Acid Added
[2024-02-29 00:40] VITALS: TEMP 37
--- NOTE | 2024-02-29 01:39 | MHC.PIE ---
p; lactic 4.0 i; dr peng notified e; [facility]
[2024-02-29] MEDS: 0.9 % Sodium Chloride 500 ML IV (01:52)
[2024-02-29 03:14] LABS: Reflex Lactate? 2 Y
[2024-02-29 04:00] VITALS: BP 150/77; PULSE 89; RESP 18; TEMP 36.7; O2SAT 95
[2024-02-29 04:24] LABS: ~Lactic Acid-LAB USE ONLY 0.9 mmol/L (0.5-2.0)
[2024-02-29] MEDS: Omeprazole 40 MG CAPSULE.DR PO (06:07)
[2024-02-29 07:58] VITALS: BP 124/67; PULSE 78; RESP 14; TEMP 36.9; O2SAT 97
[2024-02-29] MEDS: Oseltamivir Phosphate 30 MG CAPSULE PO ×2 (08:02→20:45)
[2024-02-29] MEDS: 0.9 % Sodium Chloride Flush 3 ML SYRINGE IVFLUSH ×3 (08:03→21:07)
[2024-02-29 08:47] LABS: Hematocrit 36.1 % (42.0-52.0); Hemoglobin 12.2 g/dl (14.0-18.0); Mean Corpuscular HGB Conc 33.8 g/dl (31.0-36.0); Mean Corpuscular Volume 88.9 fL (80.0-98.0); Mean Platelet Volume 12.7 fL (9.4-12.4); Platelet Count 123 X10*3/uL (160-400); Red Blood Count 4.06 X10*6/uL (4.60-5.80); Red Cell Distribution Width 14.1 % (11.0-16.0)
[2024-02-29] MEDS: cefTRIAXone sodium 1 GM in 0.9 % Sodium Chloride 50 ML IV (09:13)
[2024-02-29 09:14] LABS: Anion Gap 11 (12-20); Blood Urea Nitrogen 11 mg/dL (9-16); Calcium 8.2 mg/dL (8.4-10.2); Carbon Dioxide 26 mmol/L (22-29); Chloride 107 mmol/L (96-108); Creatinine Clr Calc Pharmacy 101.5; Estimated Glomerular Filt Rate > 60; Glucose Random 97 mg/dL (60-115); Potassium 3.4 mmol/L (3.3-5.1); Sodium 141 mmol/L (135-145)
[2024-02-29 09:31] LABS: Procalcitonin 0.15 ng/mL
[2024-02-29] MEDS: Doxycycline Hyclate 100 MG in 0.9 % Sodium Chloride 250 ML 166.67 MG IV ×2 (09:46→20:44)
--- NOTE | 2024-02-29 10:22 | HO.PM.IMPN ---
Subjective Subjective Date of Service: 02/29/24 Interval History: febrile overnight to 103@1950, lactate 2.8->4->1, BCx drawn on 1L O2 eating well and mental status at baseline per nursing home staff coughing Review of Systems Review of Systems: Yes Unobtainable due to mental status Physical Exam Vital Signs: Vital Signs: Last Vital Signs Temp 98.4 F 02/29/24 07:58 Pulse 78 02/29/24 07:58 Resp 14 02/29/24 07:58 BP 124/67 02/29/24 07:58 Pulse Ox 97 02/29/24 07:58 O2 Del Method Nasal Cannula 02/29/24 07:58 O2 Flow Rate 1 02/29/24 07:58 BMI result Body Mass Index 26.3 Gen: in no acute distress HEENT: sclera anicteric, moist mucus membranes Neck: supple Lungs: inspiratory crackles L>R Heart: regular rate and rhythm, no murmurs Abd: soft, non-tender, non-distended Ext: no edema Skin: warm/well-perfused Neuro: alert, daef Psych: appropriate affect Objective Data Active Medications Acetaminophen (Acetaminophen 325 Mg Tablet) 650 mg PO Q6H PRN PRN Reason: Pain, Mild (Pain Scale 1-3) Last Admin: 02/28/24 19:59 Dose: 650 mg Documented By: THUY Bisacodyl (Bisacodyl 10 Mg Supp.Rect) 10 mg [place] DAILY@2000 PRN PRN Reason: constiaption Clotrimazole (Clotrimazole 1 % Cream 15 Gm Tube) 1 appl TOPICAL BID PRN PRN Reason: Rash Docusate Sodium (Docusate Sodium 100 Mg/10 Ml Liquid) 100 mg PO BID [facility] Last Admin: 02/28/24 19:59 Dose: 100 mg Documented By: THUY Enoxaparin Sodium (Enoxaparin Sodium 40 Mg/0.4 Ml Syringe) 40 mg SUBCUT Q24H [facility] Last Admin: 02/28/24 17:35 Dose: 40 mg Documented By: DG Finasteride (Finasteride 5 Mg Tablet) 5 mg PO DAILY@1800 [facility] Last Admin: 02/28/24 17:36 Dose: 5 mg Documented By: DG Guaifenesin (Guaifenesin 100 Mg/5 Ml Liquid) 10 ml PO Q6H PRN PRN Reason: cough/cold Last Admin: 02/28/24 17:35 Dose: 10 ml Documented By: DG Hydrocortisone (Hydrocortisone 1 % Cream 28.35 Gm Tube) 1 appl TOPICAL BID PRN; Protocol PRN Reason: Hemorrhoids Ceftriaxone Sodium 1 gm/ (Sodium Chloride) 50 mls @ 100 mls/hr IV Q24H [facility] Last Infusion: 02/29/24 09:46 Dose: Infused Documented By: RYAN Doxycycline Hyclate 100 mg/ (Sodium Chloride) 250 mls @ 166.67 mls/hr IV Q12H [facility] Last Admin: 02/29/24 09:46 Dose: 166.67 mls/hr Documented By: RYAN Lactulose (Lactulose 20 Gm/30 Ml Solution) 20 gm PO DAILY@1800 [facility] Last Admin: 02/28/24 17:35 Dose: 20 gm Documented By: DG Loratadine (Loratadine 10 Mg Tablet) 10 mg PO DAILY PRN PRN Reason: Allergy Symptoms Magnesium Hydroxide (Milk Of Magnesia 30 Ml Oral.Susp) 30 ml PO BEDTIME [facility] Last Admin: 02/28/24 19:59 Dose: 30 ml Documented By: THUY Multivitamins/Vitamin C (Multivitamin Tablet) 1 tab PO DAILY@2100 [facility] Last Admin: 02/28/24 19:59 Dose: 1 tab Documented By: THUY Omeprazole (Omeprazole 40 Mg Capsule.) 40 mg PO DAILY@0630 [facility] Last Admin: 02/29/24 06:07 Dose: 40 mg Documented By: THUY Ondansetron HCl (Ondansetron Hcl 4 Mg/2 Ml Vial) 4 mg IVPUSH Q8H PRN PRN Reason: Nausea and Vomiting Oseltamivir Phosphate (Oseltamivir Phosphate 30 Mg Capsule) 30 mg PO Q12H [facility] Stop: 03/02/24 21:01 Last Admin: 02/29/24 08:02 Dose: 30 mg Documented By: RYAN Polyethylene Glycol (Polyethylene Glycol 3350 17 Gm Powd.Pack) 17 gm PO DAILY@1700 [facility] Last Admin: 02/28/24 17:37 Dose: Not Given Documented By: DG Non-Admin Reason: diarrhea Pravastatin Sodium (Pravastatin Sodium 40 Mg Tablet) 40 mg PO BEDTIME [facility] Last Admin: 02/28/24 19:59 Dose: 40 mg Documented By: THUY [place] (Sennosides 8.6 Mg Tablet) 17.2 mg PO BEDTIME PRN PRN Reason: Constipation Sodium Biphosphate/Sodium Phosphate (Sodium Phosphate,[place]-Dibasic 133 Ml Enema) 133 ml [place] DAILY PRN PRN Reason: Constipation Sodium Chloride (0.9 % Sodium Chloride Flush 3 Ml Syringe) 3 ml IVFLUSH QSHIFT [facility] Last Admin: 02/29/24 08:03 Dose: 3 ml Documented By: BRANDEENM Labs 02/29/24 08:01 02/29/24 08:01 Labs: Laboratory Results - last 24 hr 02/28/24 02/29/24 02/29/24 22:13 01:12 03:50 MCV MCH MCHC RDW Plt Count MPV Absolute Nucleated RBC Nucleated RBC % (auto) Anion Gap Estim Creat Clear Calc Estimated GFR Random Glucose Lactic Acid 2.8 H* Lactic Acid F/U @ 2Hr 4.0 H* Lactic Acid F/U @ 4Hr 0.9 Calcium Procalcitonin 02/29/24 08:01 MCV 88.9 MCH 30.0 MCHC 33.8 RDW 14.1 Plt Count 123 L MPV 12.7 H Absolute Nucleated RBC 0.000 Nucleated RBC % (auto) 0.0 Anion Gap 11 L Estim Creat Clear Calc 101.5 Estimated GFR > 60 Random Glucose 97 Lactic Acid Lactic Acid F/U @ 2Hr Lactic Acid F/U @ 4Hr Calcium 8.2 L Procalcitonin 0.15 Microbiology Microbiology Results: Microbiology 02/26/24 12:57 Blood Culture - Preliminary Blood - Venous No growth after 48 hours. 02/26/24 12:56 Blood Culture - Preliminary Blood - Venous No growth after 48 hours. Assessment and Plan (1) Hypotension: Status: Acute (2) Influenza: Status: Acute Plan d4 73yo deaf M with GERD, Bustamante's esophagus, BPH, HLD, HTN, chronic constipation, hx DVT no longer on AC, glaucoma, hx aspiration presenting with lethargy, cough, and fever AHRF due to influenza A, possible post-flu PNA - oseltamivir 02/25-03/01 - wean O2 as tolerated - check CXR. Start ceftriaxone + doxycycline 02/28- hypotension - due to hypovolemia/poor PO intake in setting of receiving antihypertensives; resolved after colloid + crystalloid resuscitation - continue to hold HCTZ + lisinopril CKD3 - SCr at baseline HTN - hold antihypertensives as above GERD/Bustamante's esophagus: PPI BPH: finasteride chronic aspiration: puree solids, nectar liquids chronic constipation: bowel regimen HLD: statin VTE ppx: LMWH dispo: eventual return to nursing home In my clinical judgment, the patient requires continued inpatient hospitalization for the following reasons: hypoxia, fever Total time managing care of this patient today: 35 minutes. Quality Stroke Does the patient have a stroke diagnosis?: No VTE Prior VTE?: No VTE Risk Level:: Medical - moderate - high VTE Device Contraindication: Treatment Not Indicated VTE Drug Contraindication: N/A - Med Ordered
--- NOTE | 2024-02-29 11:55 | MHC.CM.PN ---
Per MD rounds no discharge today. Patient continues with Hypoxia. Md anticipates discharge Tuesday. DP return to via van once medically cleared.
[2024-02-29] MEDS: guaiFENesin 100 MG/5 ML LIQUID 10 ML PO (14:44)
--- NOTE | 2024-02-29 15:20 | P.CDIM_ITS ---
PROVIDER RESPONSE TEXT: To clarify, the appropriate diagnosis supported by the clinical indicators: Acute lactic acidosis: acute QUERY TEXT: PHYSICIAN'S DOCUMENTATION REQUEST Date of Query: 02/29/2024 08:58 AM EDT Patient Name: Wilfredo Sands Admit Date: 02/26/2024 Dear Maryse Cruz, A review of the medical record indicates additional documentation may be needed. Please review below and update the documentation accordingly. Clinical Indicators: LAB FINDINGS: Lactic acid 2.8 H 4.0 H Based on the above, is there a diagnosis that correlates with these lab findings: Acute lactic acidosis possible, probable, suspected Labs indicate a diagnosis of (please specify) Other (explain) Clinically unable to determine (explain) Thank you, Nany Juarez, CCS, CDIS Use of terms such as suspected, likely, concern for, or probable (associated with a specific diagnosi s that is being evaluated, monitored, or treated as if it exists) are acceptable and can be coded in the inpatient se tting, when documented at the time of discharge. Please use your independent medical judgment in providing your response. THIS QUERY IS PART OF THE PERMANENT MEDICAL RECORD
[2024-02-29 15:55] VITALS: BP 121/67; PULSE 73; RESP 18; TEMP 37; O2SAT 94
[2024-02-29] MEDS: polyethylene glycoL 3350 17 GM POWD.PACK PO (18:39)
[2024-02-29] MEDS: Finasteride 5 MG TABLET PO (18:39)
[2024-02-29] MEDS: Lactulose 20 GM/30 ML SOLUTION PO (18:39)
[2024-02-29] MEDS: Enoxaparin Sodium 40 MG/0.4 ML SYRINGE SUBCUT (18:39)
[2024-02-29 19:13] VITALS: BP 117/60; PULSE 78; RESP 18; TEMP 36.8; O2SAT 93
[2024-02-29] MEDS: Docusate Sodium 100 MG/10 ML LIQUID PO (20:45)
[2024-02-29] MEDS: Pravastatin Sodium 40 MG TABLET PO (20:45)
[2024-02-29] MEDS: Milk of Magnesia 30 ML ORAL.SUSP PO (20:45)
[2024-02-29] MEDS: Multivitamin TABLET 1 TAB PO (20:45)
[2024-03-01 04:00] VITALS: BP 138/65; PULSE 74; RESP 18; TEMP 36.6; O2SAT 92
[2024-03-01] MEDS: Omeprazole 40 MG CAPSULE.DR PO (06:13)
[2024-03-01] MEDS: guaiFENesin 100 MG/5 ML LIQUID 10 ML PO (06:14)
--- NOTE | 2024-03-01 07:00 | CA_ITS ---
Transthoracic Echocardiogram Patient (Last, First, Middle): Wilfredo Sands F Gender: Male Date of : 1950 Age: 73 Procedure Date: 03/01/2024 Procedure Type: Transthoracic Echocardiogram Location: [facility] Height: 180.34 cm Weight: 85.28 kg BSA: 2.05 m2 Heart Rate: 65 bpm BP: 138 / 65 mmHg Oxidation Operator: ERIC Referring MD: Maryse Cruz MD Symptoms: pleural effusions, r/o CHF Study Quality: Fair ECG Rhythm: Sinus Conclusions: - The left ventricular systolic function is normal. The calculated ejection fraction is 58% by biplane method. - No obvious valvular pathology seen on this study. Findings Procedure Information Contrast agent, definity, is being given per protocol without apparent complications. Left Ventricle The left ventricle was not well visualized. Normal left ventricular cavity size. There is normal left ventricular wall thickness. The left ventricular systolic function is normal. The calculated ejection fraction is 58% by biplane method. There is no evidence of regional wall motion abnormalities. Diastolic function is normal for age. Right Ventricle Normal right ventricular cavity size and systolic function. Atria Both atria are normal in size. Aortic Valve The aortic valve was not well visualized. There is no aortic valve stenosis. There is no aortic valve regurgitation. Mitral Valve The mitral valve was not well visualized. There is no mitral valve regurgitation. There is no mitral valve stenosis. Pulmonic Valve The pulmonic valve is likely normal. Tricuspid Valve There is trace tricuspid valve regurgitation. There is no evidence of pulmonary hypertension. Great Vessels The aorta was not well visualized. Venous The inferior vena cava is mildly dilated and collapses less than 50% with inspiration. Pericardium/Pleural There is no evidence of pericardial effusion. Prior Study Comparison No prior study available for comparison. Recommendations, Care & Conclusions No obvious valvular pathology seen on this study. Measurements 2D Linear Measurements IVSd: 0.78 0.6-0.9/0.6-1.0 cm LVIDd: 4.40 3.9-5.3/4.2-5.9 cm LVIDd Index: 2.15 2.4-3.2/2.2-3.1 cm/m2 LVIDs: 2.90 2.0-3.6 cm LVPWd: 0.67 0.7-1.1 cm LV Mass: 118.87 67-162/88-224 g LV Mass Index: 57.99 43-95/49-115 g/m2 LVOT Diam: 2.20 3.0+(-)1.3 cm 2D Systolic Function EF 4C: 52.20 >55% EF 2C: 65.60 >55% EF BiP: 57.70 >55% Mitral Valve MV Pk E: 1.10 MV PK A: 0.84 MV Decel Time: 196.00 E/A: 1.30 E'Lateral: 9.79 E'Medial: 8.16 E/E' Med: 13.50 E/E' Lat: 11.20 PHT: 58.00 MVA PHT: 3.79 Decel [place]: 5.61 Aortic Valve AoV Pk Armando: 1.29 AoV Mn Armando: 0.90 AoV VTI: 0.28 AoV Pk Grad: 7.00 Aov Mn Grad: 4.00 BRENNA Cont.VTI: 3.52 LVOT LVOT Pk Armando: 1.17 LVOT Mn Armando: 0.80 LVOT VTI: 0.26 LVOT Pk Grad: 5.00 LVOT Mn Grad: 3.00 LVOT Diam: 2.20 LVOT Area: 3.80 Diastolic Function MV Pk E: 1.10 MV Pk A: 0.84 E/A: 1.30 E'Medial: 8.16 E/E' Med: 13.50 E' Laterial: 9.79 E/E' Lat: 11.20 Right Ventricle TAPSE (mm): 19.30 TVS' Armando: 10.60 Tricuspid Valve TR Pk Armando: 2.44 TR Pk Grad: 24.00 RA Press: 15.00 RVSP: 39.00 Great Vessels Aorta Sinus of Valsalva: 3.50 2.0-3.5 cm Updated in Other Vendor System with Status of Final Amaury Case MD electronically signed on 03/01/2024 4:20:47 PM with status of Final
[2024-03-01 07:37] LABS: Hematocrit 34.6 % (42.0-52.0); Hemoglobin 11.4 g/dl (14.0-18.0); Mean Corpuscular HGB Conc 32.9 g/dl (31.0-36.0); Mean Corpuscular Hemoglobin 30.1 pg (27.0-33.0); Mean Corpuscular Volume 91.3 fL (80.0-98.0); Mean Platelet Volume 12.9 fL (9.4-12.4); Platelet Count 124 X10*3/uL (160-400); Red Blood Count 3.79 X10*6/uL (4.60-5.80); Red Cell Distribution Width 14.1 % (11.0-16.0); White Blood Count 6.9 X10*3/uL (4.8-10.8)
[2024-03-01 07:51] LABS: Anion Gap 12 (12-20); Blood Urea Nitrogen 10 mg/dL (9-16); Calcium 8.3 mg/dL (8.4-10.2); Carbon Dioxide 25 mmol/L (22-29); Chloride 106 mmol/L (96-108); Creatinine Clr Calc Pharmacy 90.8; Estimated Glomerular Filt Rate > 60; Glucose Random 85 mg/dL (60-115); Potassium 3.3 mmol/L (3.3-5.1); Sodium 140 mmol/L (135-145)
[2024-03-01 08:00] VITALS: BP 142/70; PULSE 76; RESP 14; TEMP 36; O2SAT 96
[2024-03-01 08:16] LABS: B Type Natriuretic Peptide 133 pg/mL (<100)
[2024-03-01] MEDS: cefTRIAXone sodium 1 GM in 0.9 % Sodium Chloride 50 ML IV (10:31)
[2024-03-01] MEDS: 0.9 % Sodium Chloride Flush 3 ML SYRINGE IVFLUSH ×3 (10:35→20:24)
[2024-03-01] MEDS: Oseltamivir Phosphate 30 MG CAPSULE PO ×2 (10:35→20:10)
[2024-03-01] MEDS: Docusate Sodium 100 MG/10 ML LIQUID PO ×2 (10:35→20:10)
[2024-03-01] MEDS: Doxycycline Hyclate 100 MG in 0.9 % Sodium Chloride 250 ML 166.67 MG IV ×2 (11:18→22:23)
[2024-03-01 15:35] VITALS: BP 128/63; PULSE 55; RESP 18; TEMP 36.3; O2SAT 95
[2024-03-01] MEDS: Finasteride 5 MG TABLET PO (17:01)
[2024-03-01] MEDS: Enoxaparin Sodium 40 MG/0.4 ML SYRINGE SUBCUT (17:01)
[2024-03-01] MEDS: polyethylene glycoL 3350 17 GM POWD.PACK PO (17:01)
[2024-03-01] MEDS: Lactulose 20 GM/30 ML SOLUTION PO (17:10)
--- NOTE | 2024-03-01 17:11 | P.PNIM_ITS ---
Subjective Subjective Date of Service: 03/01/24 Interval History: seen and examined this morning follow up for acute hypoxic respiratory failure secondary to influenza A Patient nonverbal at baseline, unable to obtain review of systems Physical Exam 2 Vital Signs: Vital Signs: Last Vital Signs Temp 97.3 F 03/01/24 15:35 Pulse 55 03/01/24 15:35 Resp 18 03/01/24 15:35 BP 128/63 03/01/24 15:35 Pulse Ox 95 03/01/24 15:35 O2 Del Method Room Air 03/01/24 15:35 O2 Flow Rate 1 02/29/24 07:58 BMI result Body Mass Index 26.3 Const: General: cooperative, comfortable, no acute distress, alert and awake Nutritional Appearance: average body habitus Resp: Effort & Inspection: normal respiratory effort, able to speak in complete sentences, no respiratory distress and no use of accessory muscles Cardio: Rate: regular rate GI: Inspection: No distended Palpation (GI): Soft to palpation and nontender Neuro: Other: grossly nonfocal Extrem: General: Yes no pedal edema Objective Data Active Medications Acetaminophen (Acetaminophen 325 Mg Tablet) 650 mg PO Q6H PRN PRN Reason: Pain, Mild (Pain Scale 1-3) Last Admin: 02/28/24 19:59 Dose: 650 mg Documented By: THUY Bisacodyl (Bisacodyl 10 Mg Supp.Rect) 10 mg KS DAILY@2000 PRN PRN Reason: constiaption Clotrimazole (Clotrimazole 1 % Cream 15 Gm Tube) 1 appl TOPICAL BID PRN PRN Reason: Rash Docusate Sodium (Docusate Sodium 100 Mg/10 Ml Liquid) 100 mg PO BID [facility] Last Admin: 03/01/24 10:35 Dose: 100 mg Documented By: MONIQUE Enoxaparin Sodium (Enoxaparin Sodium 40 Mg/0.4 Ml Syringe) 40 mg SUBCUT Q24H [facility] Last Admin: 02/29/24 18:39 Dose: 40 mg Documented By: RYAN Finasteride (Finasteride 5 Mg Tablet) 5 mg PO DAILY@1800 [facility] Last Admin: 02/29/24 18:39 Dose: 5 mg Documented By: RYAN Guaifenesin (Guaifenesin 100 Mg/5 Ml Liquid) 10 ml PO Q6H PRN PRN Reason: cough/cold Last Admin: 03/01/24 06:14 Dose: 10 ml Documented By: SERA Hydrocortisone (Hydrocortisone 1 % Cream 28.35 Gm Tube) 1 appl TOPICAL BID PRN; Protocol PRN Reason: Hemorrhoids Ceftriaxone Sodium 1 gm/ (Sodium Chloride) 50 mls @ 100 mls/hr IV Q24H [facility] Last Infusion: 03/01/24 11:24 Dose: Infused Documented By: MONIQUE Doxycycline Hyclate 100 mg/ (Sodium Chloride) 250 mls @ 166.67 mls/hr IV Q12H [facility] Last Infusion: 03/01/24 12:55 Dose: Infused Documented By: MONIQUE Lactulose (Lactulose 20 Gm/30 Ml Solution) 20 gm PO DAILY@1800 [facility] Last Admin: 02/29/24 18:39 Dose: 20 gm Documented By: RYAN Loratadine (Loratadine 10 Mg Tablet) 10 mg PO DAILY PRN PRN Reason: Allergy Symptoms Magnesium Hydroxide (Milk Of Magnesia 30 Ml Oral.Susp) 30 ml PO BEDTIME [facility] Last Admin: 02/29/24 20:45 Dose: 30 ml Documented By: SERA Multivitamins/Vitamin C (Multivitamin Tablet) 1 tab PO DAILY@2100 [facility] Last Admin: 02/29/24 20:45 Dose: 1 tab Documented By: SERA Omeprazole (Omeprazole 40 Mg Capsule.) 40 mg PO DAILY@0630 [facility] Last Admin: 03/01/24 06:13 Dose: 40 mg Documented By: SERA Ondansetron HCl (Ondansetron Hcl 4 Mg/2 Ml Vial) 4 mg IVPUSH Q8H PRN PRN Reason: Nausea and Vomiting Oseltamivir Phosphate (Oseltamivir Phosphate 30 Mg Capsule) 30 mg PO Q12H [facility] Stop: 03/02/24 21:01 Last Admin: 03/01/24 10:35 Dose: 30 mg Documented By: MONIQUE Polyethylene Glycol (Polyethylene Glycol 3350 17 Gm Powd.Pack) 17 gm PO DAILY@1700 [facility] Last Admin: 02/29/24 18:39 Dose: 17 gm Documented By: RYAN Pravastatin Sodium (Pravastatin Sodium 40 Mg Tablet) 40 mg PO BEDTIME [facility] Last Admin: 02/29/24 20:45 Dose: 40 mg Documented By: SERA Senna (Sennosides 8.6 Mg Tablet) 17.2 mg PO BEDTIME PRN PRN Reason: Constipation Sodium Biphosphate/Sodium Phosphate (Sodium Phosphate,Ulster-Dibasic 133 Ml Enema) 133 ml KS DAILY PRN PRN Reason: Constipation Sodium Chloride (0.9 % Sodium Chloride Flush 3 Ml Syringe) 3 ml IVFLUSH QSHIFT [facility] Last Admin: 03/01/24 10:35 Dose: 3 ml Documented By: MONIQUE Labs 03/01/24 06:22 03/01/24 06:22 Labs: Laboratory Results - last 24 hr 03/01/24 06:22 MCV 91.3 MCH 30.1 MCHC 32.9 RDW 14.1 Plt Count 124 L MPV 12.9 H Absolute Nucleated RBC 0.000 Nucleated RBC % (auto) 0.0 Anion Gap 12 Estim Creat Clear Calc 90.8 Estimated GFR > 60 Random Glucose 85 Calcium 8.3 L B-Natriuretic Peptide 133 H Microbiology Microbiology Results: Microbiology 02/28/24 22:13 Blood Culture - Preliminary Blood - Venous No growth after 24 hours. 02/28/24 22:13 Blood Culture - Preliminary Blood - Venous No growth after 24 hours. Assessment and Plan (1) Influenza: Status: Acute Plan 73yo deaf M with GERD, Bustamante's esophagus, BPH, HLD, HTN, chronic constipation, hx DVT no longer on AC, glaucoma, hx aspiration presenting with lethargy, cough, and fever AHRF due to influenza A, possible post-flu PNA - oseltamivir 02/25-03/01 - wean O2 as tolerated, back on room air - Started on ceftriaxone + doxycycline 02/28 - blood cultures negative hypotension - due to hypovolemia/poor PO intake in setting of receiving antihypertensives; resolved after colloid + crystalloid resuscitation - continue to hold HCTZ + lisinopril CKD3 - SCr at baseline HTN - hold antihypertensives as above GERD/Bustamante's esophagus: PPI BPH: finasteride chronic aspiration: puree solids, nectar liquids chronic constipation: bowel regimen HLD: statin VTE ppx: LMWH dispo: eventual return to long term In my clinical judgment, the patient requires continued inpatient hospitalization for the following reasons: hypoxia, fever Quality Stroke Does the patient have a stroke diagnosis?: No VTE Prior VTE?: No VTE Risk Level:: Medical - moderate - high VTE Device Contraindication: Treatment Not Indicated VTE Drug Contraindication: N/A - Med Ordered
[2024-03-01 19:36] VITALS: BP 142/78; PULSE 65; RESP 18; TEMP 36.3; O2SAT 96
[2024-03-01] MEDS: Pravastatin Sodium 40 MG TABLET PO (20:10)
[2024-03-01] MEDS: Multivitamin TABLET 1 TAB PO (20:10)
[2024-03-01] MEDS: Milk of Magnesia 30 ML ORAL.SUSP PO (20:10)
[2024-03-02 03:02] VITALS: BP 145/71; PULSE 74; RESP 16; TEMP 37.1; O2SAT 93
[2024-03-02] MEDS: Omeprazole 40 MG CAPSULE.DR PO (06:33)
[2024-03-02 07:36] VITALS: BP 169/74; PULSE 68; RESP 18; TEMP 36.6; O2SAT 97
[2024-03-02] MEDS: cefTRIAXone sodium 1 GM in 0.9 % Sodium Chloride 50 ML IV (08:38)
[2024-03-02] MEDS: 0.9 % Sodium Chloride Flush 3 ML SYRINGE IVFLUSH (08:39)
[2024-03-02] MEDS: Docusate Sodium 100 MG/10 ML LIQUID PO (08:39)
[2024-03-02] MEDS: Oseltamivir Phosphate 30 MG CAPSULE PO (08:39)
[2024-03-02] MEDS: Doxycycline Hyclate 100 MG in 0.9 % Sodium Chloride 250 ML 166.67 MG IV (10:14)
--- NOTE | 2024-03-02 10:41 | P.DS_ITS ---
DS: Providers Provider Date of Service: 03/02/24 Date of admission: 02/26/24 17:03 Date of discharge: 03/02/24 Primary care physician: Brandon Tovar MD Consults: 02/27/24 09:22 Consult to Wound Care Routine Reason for consultation: redness to buttocks and bilat heels Attending physician on discharge: Clarke Bolton Discharging clinician: Asuncion Prakash DS: Diagnosis Discharge Diagnosis (1) Influenza: Status: Acute DS: Summary Hospital Course Hospital Course: From H&P on the day of admission 73-year-old male with history of GERD, Bustamante's esophagus, BPH, hyperlipidemia, hypertension, chronic constipation, history of DVT no longer on anticoagulation, glaucoma, history of aspiration who is both deaf and mute presented to the ED earlier today from half-way where he resides due to lethargy, weakness, cough, and fever of 102. Per facility staff, started with a nonproductive cough last night. This morning he did not get out of bed when he is typically the 1st resident out of bed when breakfast is being made. He has not been his self and has been generally weak. Per staff, there have been no observed instances of aspiration recently patient is on a pureed diet with thickened liquids. On arrival, he was febrile to 100.5 with hypotension of 87/49 which improved to 99/54 on admission following 3 L IV NS a nd albumin. Vitals otherwise stable. He is mildly leukopenic at 4.2 with stable normocytic anemia with H/H 12.4/36.5%, platelets 151. Renal function baseline, electrolyte levels normal. Lactic acid 1.2. Procalcitonin pending. Urinalysis unremarkable. Negative for COVID-19, RSV but positive for influenza A. Chest x-ray shows small right pleural effusion with hazy bibasilar opacities possibly reflecting infectious versus inflammatory process. He is afebrile at time of admission. [facility] staff deny any other sick contacts at the facility. In the ED, has received fluids as noted above and 75 mg Tamiflu. AHRF due to influenza A, possible post-flu PNA Treated with oseltamivir and complete a course during hospitalization. Treated with ceftriaxone + doxycycline and complete a course during hospitalization. Blood cultures have remained negative. Patient has remained afebrile for greater than 48 hours. Repeat chest x-ray showed bibasilar effusions. Echocardiogram was obtained to rule out CHF, ejection fraction was 58%, no evidence of wall motion abnormality and diastolic function normal for age. Patient was weaned off of supplemental oxygen and is currently saturating in the high 90s on room air. Recommend repeat chest x-ray in 4 weeks to ensure resolution. Thrombocytopenia. Likely due to acute viral illness, platelets have remained stable. Recommend outpatient follow-up hypotension due to hypovolemia/poor PO intake in setting of receiving antihypertensives; resolved after colloid + crystalloid resuscitation. Resume HCTZ + lisinopril upon discharge Time Attestation Discharge Coordination Time (in mins): 36 Quality: Safe Use of Opioids Does Pt have an Active Cancer Diagnosis on the Problem List?: No Quality: Stroke Does the patient have a stroke diagnosis?: No Physical Exam Vital Signs: Vital Signs: Last Vital Signs Temp 97.8 F 03/02/24 07:36 Pulse 68 03/02/24 07:36 Resp 18 03/02/24 07:36 BP 169/74 H 03/02/24 07:36 Pulse Ox 97 03/02/24 07:36 O2 Del Method Room Air 03/02/24 07:36 O2 Flow Rate 1 02/29/24 07:58 BMI result Body Mass Index 26.3 Const: General: cooperative, comfortable, no acute distress, alert and awake Nutritional Appearance: average body habitus Resp: Effort & Inspection: normal respiratory effort, able to speak in complete sentences, no respiratory distress and no use of accessory muscles Cardio: Rate: regular rate GI: Inspection: No distended Palpation (GI): Soft to palpation and nontender Neuro: Other: grossly nonfocal Extrem: General: Yes no pedal edema DS: Data Data Completed and Pending Completed studies during hospitalization [Text1]: Procedures Insertion of Endotracheal Airway into Trachea, Via Natural or Artificial Opening (02/25/22) Insertion of Infusion Device into Superior Vena Cava, Percutaneous Approach (02/25/22) Introduction of Vasopressor into Peripheral Vein, Percutaneous Approach (02/25/22) Respiratory Ventilation, Greater than 96 Consecutive Hours (02/25/22) Ultrasonography of Superior Vena Cava, Guidance (02/25/22) Labs on day of discharge: Preliminary micro results at discharge 02/28/24 22:13 Blood Culture - Preliminary Blood - Venous No growth after 48 hours. 02/28/24 22:13 Blood Culture - Preliminary Blood - Venous No growth after 48 hours. 02/26/24 12:57 Blood Culture - Preliminary Blood - Venous No growth after 48 hours. 02/26/24 12:56 Blood Culture - Preliminary Blood - Venous No growth after 48 hours. Discharge Plan Discharge Anticipated Discharge Date/Time: 03/02/24 13:51 Patient Disposition: Home, Self-Care Discharge Diagnosis: Influenza a Referrals: Brandon Tovar MD [Primary Care Provider] - 1 Week Discharge Medications: Continued pravastatin 40 mg Tablet 40 mg PO QPM lisinopril 20 mg Tablet 20 mg PO QAM Protocol: Hold for SBP< HOLD for SBP < : 90 hydrochlorothiazide 25 mg Tablet 25 mg PO DAILY@0800 Protocol: Hold for SBP< HOLD for SBP < : 90 docusate sodium 100 mg Tablet 100 mg PO BID magnesium hydroxide [Milk of Magnesia] 400 mg/5 mL suspension 30 ml PO BEDTIME bacitracin zinc 500 unit/gram Ointment 1 appl TOPICAL QID PRN (Reason: Wound Care) polyethylene glycol 3350 [Miralax] 17 gram/dose Powder 17 g PO DAILY@1700 Culturelle 10 billion cell Capsule 1 cap PO QAM guaifenesin [Tussin Mucus-Chest Congestion] 100 mg/5 mL Liquid 200 mg PO Q6H PRN (Reason: cough/cold) hydrocortisone 1 % Cream 1 appl TOPICAL BID PRN (Reason: Hemorrhoids) diazepam 10 mg Tablet 10 mg PO ONCE PRN (Reason: eye appointment) Rx Instructions: 2 hours before mineral oil-isopropyl myristat Lotion 1 appl TOPICAL MOWEFR Rx Instructions: TWICE DAILY finasteride 5 mg tablet 5 mg PO QPM multivitamin with folic acid [Thera] 400 mcg tablet 1 tab PO DAILY@2100 omeprazole 40 mg capsule,delayed release(DR/EC) 40 mg PO QAM lactulose 10 gram/15 mL solution 30 ml PO QPM loratadine 10 mg tablet 10 mg PO DAILY PRN (Reason: Allergy Symptoms) tamsulosin 0.4 mg capsule 0.8 mg PO BEDTIME 90 Days Qty: 180 3RF Rx Instructions: This is an increase in dose Can take 0.8 mg at bedtime or 0.4 mg b.i.d. acetaminophen 325 mg tablet 650 mg PO Q6H PRN (Reason: Fever Or Pain) bisacodyl [OneLAX Bisacodyl] 10 mg suppository 10 mg GA DAILY@1999 PRN (Reason: constiaption) Rx Instructions: on 4th day of no BM if MOM not effective Enema Disposable 19-7 gram/118 mL enema 118 ml GA DAILY PRN (Reason: Constipation) Rx Instructions: on day 5 without BM terbinafine HCl [Antifungal (terbinafine)] 1 % cream 1 appl topical BID PRN (Reason: Rash) Rx Instructions: feet Discharge Orders: Discharge Order (Routine); Ordered 03/02/24 Ordered By: Asuncion Prakash Activity on Discharge: As tolerated Stand Alone Forms: Patient Portal Discharge page Print Language: Polish Care Plan Goals: see below Health Concerns: Influenza a Possible post influenza pneumonia Plan of Treatment: Completed course of Tamiflu and antibiotics during hospitalization Echo did not show any evidence of CHF Recommend repeat chest x-ray in 4 weeks to ensure resolution Call to schedule follow-up appointment with PCP as needed Assessment: See discharge summary
--- NOTE | 2024-03-02 10:47 | MHC.CM.PN ---
IMM 03/02/24 Patient is discharged today. He will return to the [facility]. No additional services have been ordered. Patient will transport via BLS 2:30pm flower buncher or picker. Pts Sister Sharmin has been notified of the discharge today. She is in agreement with the discharge plan.
== END 2024-03-02 14:46 | disposition home or self-care (01) | DRG 193 ==
LOC: HO.ED 15:12 → HO.EDOVER 17:15 → HO.S3 02-27 07:28
PROVIDERS: Family Medicine; Physician Assistant; Student in an Organized Health Care Education/Training Program; Admitting Provider Physician Assistant; Emergency Provider Student in an Organized Health Care Education/Training Program; PCP Internal Medicine; Visit Provider Physician Assistant Medical
DX: J10.00 Influenza due to other identified influenza virus with unspecified type of pneumonia (principal); J96.01 Acute respiratory failure with hypoxia; E87.21 Acute metabolic acidosis; E86.1 Hypovolemia; D69.59 Other secondary thrombocytopenia; N40.0 Benign prostatic hyperplasia without lower urinary tract symptoms; I95.9 Hypotension, unspecified; K22.70 Barrett's esophagus without dysplasia; N18.30 Chronic kidney disease, stage 3 unspecified; I12.9 Hypertensive chronic kidney disease with stage 1 through stage 4 chronic kidney disease, or unspecified chronic kidney disease; E78.5 Hyperlipidemia, unspecified; K59.09 Other constipation; Z20.822 Contact with and (suspected) exposure to COVID-19; Z79.899 Other long term (current) drug therapy
CPT/HCPCS: 0241U; 36415; 71045; 71046; 80048; 80053; 81003; 83605; 83880; 84145; 85025; 85027; 85610; 87040; 93005; 93306; 99285; J0131; J0696; J1650; P9047; Q9957

== ENCOUNTER → 2024-02-26 12:34 | Outpatient (BNV) | payer MEDICARE, MEDICAID, SELFPAY | PROVIDERS: Admitting Provider Physician Assistant; Emergency Provider Student in an Organized Health Care Education/Training Program; PCP Internal Medicine; Visit Provider Internal Medicine | DX: I49.3 Ventricular premature depolarization (principal) | CPT/HCPCS: 93010 ==

== ENCOUNTER 2024-02-26 17:03 | Outpatient (BNV) | payer MEDICARE, MEDICAID, SELFPAY | END 2024-03-01 07:00 | PROVIDERS: Admitting Provider Physician Assistant; Emergency Provider Student in an Organized Health Care Education/Training Program; PCP Internal Medicine; Visit Provider Internal Medicine | DX: I36.1 Nonrheumatic tricuspid (valve) insufficiency (principal) | CPT/HCPCS: 93306 ==

== ENCOUNTER → 2024-02-26 17:03 | Outpatient (BNV) | payer MEDICARE, MEDICAID, SELFPAY | PROVIDERS: Admitting Provider Physician Assistant; Emergency Provider Student in an Organized Health Care Education/Training Program; PCP Internal Medicine; Visit Provider Physician Assistant | DX: J11.1 Influenza due to unidentified influenza virus with other respiratory manifestations (principal) | CPT/HCPCS: 99222; 99232; 99239 ==

== ENCOUNTER 2024-04-22 21:00 | Inpatient (IN) | payer MEDICARE, MEDICAID, SELFPAY ==
--- NOTE | ~2024-04-22 | XR_ITS ---
EXAMINATION: XR CHEST CLINICAL INFORMATION: NG tube adjustment COMPARISON: 04/23/2024 7:05 AM TECHNIQUE: Frontal view of the chest was obtained. FINDINGS: The NG tube tip remains coiled in the gastric body. Patient is slightly different. No other interval change. XR/XR chest 1V IMPRESSION: NG tube tip remains coiled in the gastric body.
--- NOTE | ~2024-04-22 | CT_ITS ---
EXAMINATION: CT ABDOMEN AND PELVIS WITHOUT CONTRAST CLINICAL INFORMATION: Bowel obstruction COMPARISON: 03/01/2022 TECHNIQUE: Multidetector volumetric imaging was performed from the superior aspect of the liver through the pubic symphysis. Sagittal and coronal reformatted images were obtained on the technologist's workstation. This CT examination was performed using dose optimization techniques as appropriate, variously including the following: *Automated exposure control *Adjustment of mA and/or kV according to patient size (this includes techniques or standardized protocols for targeted exams where dose is matched to indication/reason for exam; i.e. extremities or head) *Use of iterative reconstruction technique DLP: 860 mGy-cm FINDINGS: LUNG BASES: Pleural thickening is evident at both lung bases. Rounded atelectasis is present at the posterior aspect of the lower lobes bilaterally, right greater than left. Small left Bochdalek hernia, fat-containing. LIVER, GALLBLADDER, AND BILIARY TREE: The liver is normal in size, shape, and attenuation. No focal hepatic lesion or biliary ductal dilatation is present. The gallbladder is unremarkable with no evidence of radiopaque gallstones, gallbladder wall thickening, or obvious pericholecystic inflammatory changes. PANCREAS: Unremarkable. SPLEEN: Unremarkable. ADRENAL GLANDS: Unremarkable. KIDNEYS AND URETERS: The kidneys are normal in size, shape, and attenuation. No hydronephrosis, hydroureter, or calculi seen. No perinephric stranding. Bilateral simple renal cortical cysts are identified. A Bosniak type II cyst at the lower pole the right kidney has small wall calcifications and is unchanged. No recommended imaging follow-up. BLADDER: Unremarkable. GASTROINTESTINAL TRACT: There is a large volume of stool throughout the colon. Mild circumferential wall thickening and surrounding fat stranding are evident in the rectosigmoid junction which could correspond to the degree of stercoral colitis. No evidence of perforation. Small bowel is normal in caliber, though there is fecalization distally, indicating slow bowel transit. The stomach is distended with food material with a transition point in the duodenum. There is reflux of fluid into the distal esophagus. No intraperitoneal free fluid or free air. ABDOMINAL WALL: No significant hernia is appreciated. LYMPH NODES: Normal. VASCULAR: Atherosclerotic calcifications are present in the abdominal aorta and iliac arteries. No aneurysmal dilatation. PELVIC VISCERA: Dystrophic central calcifications in the prostate. OSSEOUS STRUCTURES: There is diffuse ankylosis in the thoracic spine. Multilevel degenerative spondylosis in the lumbar spine with marked facet arthropathy. No fracture or malalignment. Mild to moderate osteoarthritis in the hips. CT/CT abdomen pelvis wo IV con IMPRESSION: 1. Large volume of stool throughout the colon with mild wall thickening and surrounding fat stranding at the rectosigmoid junction, potentially corresponding to the degree of stercoral colitis. No evidence of perforation. 2. Gastric distention with reflux of fluid into the distal esophagus. This could be due to gastric of obstruction. Delayed gastric emptying related to delayed bowel transit and increased intra-abdominal pressure from the large stool burden is also possible. 3. Slow bowel transit with fecalization of the distal small bowel. No evidence of small bowel obstruction. Fleischner guidelines were followed.
--- NOTE | ~2024-04-22 | XR_ITS ---
EXAMINATION: XR CHEST CLINICAL INFORMATION: Nasogastric tube placement. COMPARISON: Previous of the same day. TECHNIQUE: Frontal view of the chest was obtained. FINDINGS: The cardiomediastinal silhouette is stable. A nasogastric tube extends below the diaphragm into the upper abdomen. Tip of the nasogastric tube is not seen. There is blunting of the right costophrenic angle similar to previous. The lungs are otherwise clear. The bony structures and soft tissues are unremarkable. XR/XR chest 1V IMPRESSION: Nasogastric tube extends below the diaphragm into the upper abdomen. The tip of the nasogastric tube is not seen.
--- NOTE | ~2024-04-22 | XR_ITS ---
EXAMINATION: XR CHEST CLINICAL INFORMATION: Gastric tube placement. COMPARISON: 02/29/2024 TECHNIQUE: Frontal view of the chest was obtained. FINDINGS: The lung volumes are low. The cardiomediastinal silhouette is stable. There appears to be mild atelectatic change at the lung bases. There is blunting of the right costophrenic angle/right lower lung pleural thickening. A nasogastric tube extends below the diaphragm. The tip of the nasogastric tube is not seen. The bony structures and soft tissues are unremarkable XR/XR chest 1V IMPRESSION: 1. Low lung volumes with bibasilar atelectatic change. 2. Blunting of the right costophrenic angle/right lower lung pleural thickening. This may be chronic or represent a small right pleural effusion. 3. Nasogastric tube appears to be in adequate position. Tip of nasogastric tube is not seen.
--- NOTE | ~2024-04-22 | FL_ITS ---
EXAMINATION: Modified Barium Swallow CLINICAL INFORMATION: Dysphagia COMPARISON: None TECHNIQUE: Modified barium swallow was performed under lateral fluoroscopy with patient in standing position. Barium mixed with solids and liquids of different consistencies was administered by the speech pathologist. Examination was recorded in the fluoroscopy suite. FINDINGS: Limited examination due to patient's uncooperativeness. Aspiration was observed with nectar thick consistency barium. FLUOROSCOPY TIME: 1 minute 43 seconds Number of Spot Images: N/A DOSE AREA PRODUCT: 1110 uGy-m2 (microgray-meter squared) FL/FL barium swallow modified IMPRESSION: Limited examination due to patient's uncooperativeness. Aspiration was observed with nectar thick consistency barium. Refer to the speech therapy report for further clarification This procedure was performed by Wily Terrell PA-C, and supervised by Dr. Laboy
--- NOTE | ~2024-04-22 | XR_ITS ---
EXAMINATION: XR CHEST CLINICAL INFORMATION: NG tube repositioning COMPARISON: 4 radiographs earlier today TECHNIQUE: Frontal view of the chest was obtained. FINDINGS: The tip of the NG tube is no longer coiled in the gastric body but now has has its tip in the distal antrum just prior to the pylorus. No other interval change. XR/XR chest 1V IMPRESSION: NG tube has been repositioned with tip now in the distal antrum just prior to the pylorus.
--- NOTE | ~2024-04-22 | XR_ITS ---
EXAMINATION: XR CHEST CLINICAL INFORMATION: NG tube placement COMPARISON: Chest radiograph earlier this morning at 633 TECHNIQUE: Frontal view of the chest was obtained. FINDINGS: The NG tube is present with its tip coiled in the gastric body heart size normal. Left hemidiaphragm remains mildly elevated. A small right pleural effusion is present. Some mild bibasilar atelectasis is seen. Degenerative changes are present in the spine and both shoulders. XR/XR chest 1V IMPRESSION: NG tube with tip in stomach.
[2024-04-22 21:03] VITALS: BP 117/78; BP 125/79; PULSE 103; PULSE 88; RESP 16; TEMP 36.5; O2SAT 100; O2SAT 98; BMI 25.7
--- NOTE | 2024-04-22 21:24 | PC.NURSE ---
pt [facility]a from [facility], alert at baseline, but non verbal and deaf. [facility] staff at bedside reports pt has been nausea and vomiting since this morning. reports pt had eaten dinner and had 3 emesis episodes at one. at time of arrival pt is not currently vomiting. labs obtained and sent
[2024-04-22 21:26] LABS: MANUAL DIFF FLAG NO
[2024-04-22 21:27] LABS: Basophils Percent Auto 0.3 % (0-2); Eosinophils Absolute Auto 0.1 X10*3/uL (0.0-0.4); Eosinophils Percent Auto 0.5 % (0-4); Hemoglobin 14.8 g/dl (14.0-18.0); Imm Gran Abs Auto 0.08 X10*3/uL (0.00-0.03); Imm Gran Pct Auto 0.5 % (0.0-0.4); Lymphocytes Absolute Auto 1.4 X10*3/uL (1.2-4.9); Lymphocytes Percent Auto 9.4 % (20-40); Mean Corpuscular HGB Conc 33.6 g/dl (31.0-36.0); Mean Corpuscular Hemoglobin 30.5 pg (27.0-33.0); Mean Corpuscular Volume 90.5 fL (80.0-98.0); Monocytes Absolute Auto 0.8 X10*3/uL (0.1-1.2); Monocytes Percent Auto 5.5 % (2-11); Neutrophils Absolute Auto 12.3 x10*3/uL (2.0-8.3); Neutrophils Percent Auto 83.8 % (45-73); Platelet Count 169 X10*3/uL (160-400); Red Blood Count 4.86 X10*6/uL (4.60-5.80); Red Cell Distribution Width 14.6 % (11.0-16.0); White Blood Count 14.7 X10*3/uL (4.8-10.8)
[2024-04-22 21:47] LABS: Alanine Aminotransferase 22 U/L (0-40); Alkaline Phosphatase 71 U/L (39-117); Anion Gap 17 (12-20); Aspartate Amino Transferase 20 U/L (5-37); Bilirubin Total 0.4 mg/dL (0.0-1.0); Blood Urea Nitrogen 24 mg/dL (9-16); Calcium 9.3 mg/dL (8.4-10.2); Carbon Dioxide 21 mmol/L (22-29); Chloride 101 mmol/L (96-108); Creatinine Clr Calc Pharmacy 73.8; Estimated Glomerular Filt Rate > 60; Glucose Random 111 mg/dL (60-115); Potassium 3.7 mmol/L (3.3-5.1); Sodium 135 mmol/L (135-145); Total Protein 7.3 g/dL (6.5-8.0)
--- NOTE | 2024-04-22 22:06 | ED_ITS ---
HPI - Nausea/Vomiting/Diarrhea General Chief complaint: Nausea/Vomiting/Diarrhea Stated complaint: VOMITING, NON VERBAL/DEAF Time Seen by Provider: 04/22/24 21:48 Source: other (Bed Manager) Mode of arrival: EMS Limitations: language barrier History of Present Illness ED Provider: lani SONG Narrative: Patient nonverbal hard of hearing mentally challenged from [facility] comes here for 3 episodes of vomiting since 20:00 apparently patient had supper at 17:00 was doing at his baseline for 3 hours then started vomiting with slight cough watery vomitus does not look in any distress no fever no other [facility] member sick patient had normal bowel movement earlier no history of bowel obstruction no fever Related Data Home Medications ?Medication ?Instructions ?Recorded ?Confirmed docusate sodium 100 mg tablet 100 mg PO BID 11/19/20 02/26/24 hydrochlorothiazide 25 mg tablet 25 mg PO DAILY@0800 11/19/20 02/26/24 lisinopril 20 mg tablet 20 mg PO QAM 11/19/20 02/26/24 pravastatin 40 mg tablet 40 mg PO QPM 11/19/20 02/26/24 lactulose 10 gram/15 mL oral 30 ml PO QPM 08/25/21 02/26/24 solution loratadine 10 mg tablet 10 mg PO DAILY PRN Allergy Symptoms 08/25/21 02/26/24 multivitamin with folic acid 400 1 tab PO DAILY@2100 08/25/21 02/26/24 mcg tablet (Thera) omeprazole 40 mg capsule,delayed 40 mg PO QAM 08/25/21 02/26/24 release Lactobacillus rhamnosus GG 10 1 cap PO QAM 02/25/22 02/26/24 billion cell capsule (Culturelle) bacitracin zinc 500 unit/gram 1 appl topical QID PRN Wound Care 02/25/22 02/26/24 topical ointment magnesium hydroxide 400 mg/5 mL 30 ml PO BEDTIME 02/25/22 02/26/24 oral suspension (Milk of Magnesia) polyethylene glycol 3350 17 17 g PO DAILY@1700 02/25/22 02/26/24 gram/dose oral powder (Miralax) acetaminophen 325 mg tablet 650 mg PO Q6H PRN Fever Or Pain 02/17/24 02/26/24 bisacodyl 10 mg rectal suppository 10 mg ND DAILY@1999 PRN 02/17/24 02/26/24 (OneLAX Bisacodyl) constiaption sodium phosphates 19 gram-7 118 ml ND DAILY PRN Constipation 02/17/24 02/26/24 gram/118 mL enema (Enema Disposable) terbinafine HCl 1 % topical cream 1 appl topical BID PRN Rash 02/17/24 02/26/24 (Antifungal (terbinafine)) diazepam 10 mg tablet 10 mg PO ONCE PRN eye appointment 02/26/24 02/26/24 finasteride 5 mg tablet 5 mg PO QPM 02/26/24 02/26/24 guaifenesin 100 mg/5 mL oral 200 mg PO Q6H PRN cough/cold 02/26/24 02/26/24 liquid (Tussin Mucus-Chest Congestion) hydrocortisone 1 % topical cream 1 appl topical BID PRN Hemorrhoids 02/26/24 02/26/24 mineral oil-isopropyl myristat 1 appl topical MOWEFR 02/26/24 02/26/24 lotion Previous Rx's ?Medication ?Instructions ?Recorded tamsulosin 0.4 mg capsule 0.8 mg (2 x 0.4 mg) PO BEDTIME 90 02/17/24 days #180 caps Allergies Allergy/AdvReac Type Severity Reaction Status Date / Time azithromycin [AZITHROMYCIN] Allergy Unknown UNKOWN Verified 04/22/24 21:09 Macrolide Antibiotics Allergy Unknown unknown Verified 04/22/24 21:09 [MACROLIDE ANTIBIOTICS] Macrolides and ketolides Allergy Unknown Unknown Uncoded 04/22/24 21:09 Review of Systems 2 Review of Systems: Yes Unobtainable due to mental status PMFSH Past Medical History Medical History HTN (hypertension) BPH (benign prostatic hyperplasia) Barretts syndrome GERD (gastroesophageal reflux disease) [place] (hard of hearing) Non-verbal learning disorder Social History Social History Household Members: Caregiver Household Members Other:: From [facility] Housing: Other Housing Other:: senior care Do you presently have visiting nurse or other home services: Yes (senior care) Unable to assess alcohol history related to: Unable to respond and Unknown Comment: sitter from facility Patient Tobacco Use Status: Never used Tobacco Advance Directives: Yes Advance Directives on File: Yes Advance Directives Date on File: 01/09/24 Do you have a plan to hurt others: No Plan service: No Current occupational status: disabled Physical Exam 2 Vital Signs: Vital Signs: Last Vital Signs Temp 97.6 F 04/23/24 00:31 Pulse 91 04/23/24 00:31 Resp 19 04/23/24 00:31 BP 123/67 04/23/24 00:31 Pulse Ox 98 04/23/24 00:31 O2 Del Method Room Air 04/23/24 00:31 BMI result Body Mass Index 25.7 Appearance: Alert. Nonverbal No acute distress. Eyes: No pallor or icterus ENT: Pharynx normal. Oral Mucosa moist Neck: Normal inspection. Neck supple. CVS: Normal heart rate and rhythm. Pulses normal. Respiratory: No respiratory distress. Equal air entry bilateral, no wheezing/rales/rhonchi Abdomen: Soft gaseous distended and nontender. Bowel sounds are sluggish, no mass palpable, no CVA tenderness rectal: soft brown stool++ Skin: Skin warm and dry. Normal skin color. Normal skin turgor. Extremities: No lower extremity edema. No calf tenderness Neuro: Alert no focal deficits Medications Administered Discontinued Medications Generic Name Dose Route Start Last Admin Trade Name Freq PRN Reason Stop Dose Admin Sodium Chloride 1,000 mls @ 999 mls/hr 04/22/24 22:13 04/23/24 00:32 Ns IV 04/22/24 23:13 Infused .Q1H1M ONE Infusion Lidocaine HCl 1 appl 04/23/24 01:33 04/23/24 01:42 Lidocaine Hcl 4 % [id number]-[id number]-Xnb 4 Ml TOPICAL 04/23/24 01:34 1 appl ONCE ONE Administration Lorazepam 2 mg 04/23/24 02:10 04/23/24 02:15 Lorazepam 2 Mg/Ml Vial IVPUSH 04/23/24 02:11 2 mg ONCE ONE Administration Medical Decision Making Medical Decision Making [facility] Narrative: Patient with gastric outlet obstruction with significant distention of the stomach with dilated bowels case discussed with Dr. Rodney advised NG tube NG tube was placed and manual suction was done about 1 L of gastric contents aspirated. Will admit patient to medical service for further management Differential Diagnosis Differential Diagnoses: The differential diagnosis associated with the presentation includes Small bowel obstruction/gastric outlet obstruction/ileus Admission/Observation Consideration of admission/observation: Escalation of care including admission/observation considered Consult Healthcare Provider Management of the patient was discussed with: Hospitalist Lab Data MDM Lab Attestation statement: I reviewed the patient's lab results. 04/22/24 21:23 04/22/24 21:23 Labs: Lab Results 04/22/24 04/22/24 04/22/24 Range/Units 21:23 22:58 23:52 WBC 14.7 H (4.8-10.8) X10*3/uL RBC 4.86 D (4.60-5.80) X10*6/uL Hgb 14.8 D (14.0-18.0) g/dl Hct 44.0 D (42.0-52.0) % MCV 90.5 (80.0-98.0) fL MCH 30.5 (27.0-33.0) pg MCHC 33.6 (31.0-36.0) g/dl RDW 14.6 (11.0-16.0) % Plt Count 169 D (160-400) X10*3/uL MPV 12.0 (9.4-12.4) fL Immature Gran % (Auto) 0.5 H (0.0-0.4) % Neut % (Auto) 83.8 H (45-73) % Lymph % (Auto) 9.4 L (20-40) % [place] % (Auto) 5.5 (2-11) % Eos % (Auto) 0.5 (0-4) % Baso % (Auto) 0.3 (0-2) % Lymph # (Auto) 1.4 (1.2-4.9) X10*3/uL [place] # (Auto) 0.8 (0.1-1.2) X10*3/uL Eos # (Auto) 0.1 (0.0-0.4) X10*3/uL Baso # (Auto) 0.0 (0.0-0.2) X10*3/uL Abs Immat Gran (auto) 0.08 H (0.00-0.03) X10*3/uL Absolute Neuts (auto) 12.3 H (2.0-8.3) x10*3/uL Absolute Nucleated RBC 0.000 (0.0-0.012) X10*3/uL Nucleated RBC % (auto) 0.0 (0.0-0.2) /100WBC Sodium 135 (135-145) mmol/L Potassium 3.7 (3.3-5.1) mmol/L Chloride 101 (96-108) mmol/L Carbon Dioxide 21 L (22-29) mmol/L Anion Gap 17 (12-20) BUN 24 H (9-16) mg/dL Creatinine 0.82 (0.5-1.4) mg/dL Estim Creat Clear Calc 73.8 Estimated GFR > 60 Random Glucose 111 (60-115) mg/dL Lactic Acid 1.5 (0.5-2.0) mmol/L Calcium 9.3 D (8.4-10.2) mg/dL Total Bilirubin 0.4 (0.0-1.0) mg/dL AST 20 (5-37) U/L ALT 22 (0-40) U/L Alkaline Phosphatase 71 (39-117) U/L Total Protein 7.3 (6.5-8.0) g/dL Albumin 4.0 (3.5-5.0) g/dL Urine Color Yellow Urine Appearance Clear Urine pH 6.0 (5.0-9.0) Ur Specific [place] 1.020 (1.005-1.025) Urine Protein Negative (Neg-Trace) mg/dL Urine Glucose (UA) Negative (Negative) mg/dL Urine Ketones Negative (Negative) mg/dL Urine Blood Negative (Negative) Urine Nitrite Negative (Negative) Ur Leukocyte Esterase Negative (Negative) Urine RBC 0-2 (0-2) /HPF Urine WBC 0-5 (0-5) /HPF Ur Squamous Epith Cells 0-2 (0-2) /HPF Urine Bacteria None Seen (None Seen) Hyaline Casts 0-2 (0-2) /LPF Independent Interpretation I performed an independent interpretation of an: CT Scan Radiology Impression Discussion of test interpretation with radiology: I have reviewed the radiologist's reading. Radiologist Impression: CT/CT abdomen pelvis wo IV con IMPRESSION: 1. Large volume of stool throughout the colon with mild wall thickening and surrounding fat stranding at the rectosigmoid junction, potentially corresponding to the degree of stercoral colitis. No evidence of perforation. 2. Gastric distention with reflux of fluid into the distal esophagus. This could be due to gastric of obstruction. Delayed gastric emptying related to delayed bowel transit and increased intra-abdominal pressure from the large stool burden is also possible. 3. Slow bowel transit with fecalization of the distal small bowel. No evidence of small bowel obstruction. Fleischner guidelines were followed. Critical Care Time Critical Care Time Critical Care Time: Yes Total Critical Care Time: 50 Attestation: The patient was critically ill with a high probability of imminent or life threatening deterioration. I spent greater than 60 ???minutes of discontinuous time evaluating the patient,delivering critical care at the bedside, discussing and evaluating pertinent data with consultants. Critical care time does not include time spent performing separately billable procedures or teaching. Total time spent performing critical care was 50???minutes. Discharge Plan Discharge Clinical Impression: Partial gastric outlet obstruction, Constipation Patient Disposition: Admitted As Inpatient Print Language: Spanish
[2024-04-22] MEDS: 0.9 % Sodium Chloride 1,000 ML 999 ML IV (22:48)
[2024-04-22 23:11] LABS: Appearance Urine Clear; Color Urine Yellow; Glucose Urine UA Negative (Negative); Leukocyte Esterase Urine Negative (Negative); Nitrite Urine Negative (Negative); Urine Blood Negative (Negative); Urine Ketones Negative (Negative); Urine Protein Negative (Neg-Trace)
[2024-04-22 23:15] LABS: Bacteria Urine None Seen (None Seen); Hyaline Casts Urine 0-2 /LPF (0-2); RBC Urine 0-2 /HPF (0-2); Squamous Epithelial Cell Urine 0-2 /HPF (0-2); WBC Urine 0-5 /HPF (0-5)
[2024-04-23] VITALS (11 sets, daily range): BP systolic 113–157; BP diastolic 59–79; PULSE 69–91; RESP 12–19; TEMP 36–37.1; O2SAT 95–100; BMI 25.0
[2024-04-23 00:40] LABS: Lactic Acid 1.5 mmol/L (0.5-2.0)
[2024-04-23] MEDS: Lidocaine HCl 4 % Laryng-O-Jet 4 ML 1 APPL TOPICAL (01:42)
--- NOTE | 2024-04-23 01:42 | PC.NURSE ---
at bedside, attempting to place NG tube at this time, pt very agitated and unable to complete at this time. pt given break per provider.
[2024-04-23] MEDS: LORazepam 2 MG/ML VIAL IVPUSH (02:15)
--- NOTE | 2024-04-23 02:50 | PC.NURSE ---
NG tube placed by at this time, pt tolerated well, after placement pt attempting to remove NG tube, pt medicated per dec.
--- NOTE | 2024-04-23 05:10 | PC.NURSE ---
at bedside to assess pt.
--- NOTE | 2024-04-23 05:34 | PM.IMHP ---
History of Present Illness Date of Service: 04/23/24 Attending physician on admission: Schuyler Lambert Chief Complaint: Vomiting Wilfredo Sands is a 73 years old man with past medical history significant for nonverbal learning disability, GERD, Barretts syndrome, BPH and essential hypertension was brought to the emergency department via ambulance from his longterm after he started to experience couple of events of vomiting. HPI was provided by staff member who was at bedside. Staff member stated that patient usually has a distended abdomen but nothing out of the norm and does not feel that the patient was in pain or that choked. He also stated that the patient have a bowel movement last night. No fever reported. Patient has history of dysphagia. In the ED, patient was found to have normal vital signs. Blood workup was remarkable for leukocytosis of 14.7. Hemoglobin is 14.8 and platelet 169. There are no significant electrolyte imbalances. Renal function and LFTs are normal. CXR showed low lung volumes with bibasilar atelectasis changes, blunting of the right costophrenic angle/right lower lobe pleural thickening (chronic changes vs small right pleural effusion), NG tube appears to be in adequate position. Abdomen pelvis CT scan showed large volume of stool through the colon with mild wall thickening and surrounding fat stranding at the rectosigmoid junction potentially corresponding to the degree of stercoral colitis without evidence of perforation, gastric distention with reflux of fluid into the distal esophagus (could be gastric outlet obstruction), delayed gastric emptying related to delayed bowel transit and increased intra-abdominal pressure from the large stool burden is also possible, slow bowel transit with fecalization of the distal small bowel without evidence of small-bowel obstruction. ED tx: NS 1 L bolus, Ativan 2 mg IV Review of Systems Review of Systems: Yes Unobtainable due to mental status [facility] Medical History HTN (hypertension) BPH (benign prostatic hyperplasia) Barretts syndrome GERD (gastroesophageal reflux disease) [place] (hard of hearing) Non-verbal learning disorder Social History Household Members: Caregiver Household Members Other:: From longterm Housing: Other Housing Other:: long term Do you presently have visiting nurse or other home services: Yes (long term) Unable to assess alcohol history related to: Unable to respond and Unknown Comment: sitter from facility Patient Tobacco Use Status: Never used Tobacco Advance Directives: Yes Advance Directives on File: Yes Advance Directives Date on File: 01/09/24 Do you have a plan to hurt others: No Plan service: No Current occupational status: disabled Meds Allergies Allergy/AdvReac Type Severity Reaction Status Date / Time azithromycin [AZITHROMYCIN] Allergy Unknown UNKOWN Verified 04/22/24 21:09 Macrolide Antibiotics Allergy Unknown unknown Verified 04/22/24 21:09 [MACROLIDE ANTIBIOTICS] Macrolides and ketolides Allergy Unknown Unknown Uncoded 04/22/24 21:09 Active Medications: Current Medications Potassium Chloride/Dextrose/Sod Cl (Kcl 20 Meq In 5% Dex/0.9% Sod) 20 meq in 1,000 mls @ 100 mls/hr IVCONT .Q10H [facility] Sodium Biphosphate/Sodium Phosphate (Sodium Phosphate,[place]-Dibasic 133 Ml Enema) 133 ml [place] ONCE PRN PRN Reason: Constipation Sodium Chloride (0.9 % Sodium Chloride Flush 3 Ml Syringe) 3 ml IVFLUSH QSHIFT [facility] Home Medications ?Medication ?Instructions ?Recorded ?Confirmed ?Last Taken ?Type docusate sodium 100 mg tablet 100 mg PO BID 11/19/20 02/26/24 Unknown History hydrochlorothiazide 25 mg tablet 25 mg PO DAILY@0800 11/19/20 02/26/24 Unknown History lisinopril 20 mg tablet 20 mg PO QAM 11/19/20 02/26/24 Unknown History pravastatin 40 mg tablet 40 mg PO QPM 11/19/20 02/26/24 Unknown History lactulose 10 gram/15 mL oral 30 ml PO QPM 08/25/21 02/26/24 Unknown History solution loratadine 10 mg tablet 10 mg PO DAILY PRN Allergy Symptoms 08/25/21 02/26/24 Unknown History multivitamin with folic acid 400 1 tab PO DAILY@2100 08/25/21 02/26/24 Unknown History mcg tablet (Thera) omeprazole 40 mg capsule,delayed 40 mg PO QAM 08/25/21 02/26/24 Unknown History release Lactobacillus rhamnosus GG 10 1 cap PO QAM 02/25/22 02/26/24 Unknown History billion cell capsule (Culturelle) bacitracin zinc 500 unit/gram 1 appl topical QID PRN Wound Care 02/25/22 02/26/24 Unknown History topical ointment magnesium hydroxide 400 mg/5 mL 30 ml PO BEDTIME 02/25/22 02/26/24 Unknown History oral suspension (Milk of Magnesia) polyethylene glycol 3350 17 17 g PO DAILY@1700 02/25/22 02/26/24 Unknown History gram/dose oral powder (Miralax) acetaminophen 325 mg tablet 650 mg PO Q6H PRN Fever Or Pain 02/17/24 02/26/24 Unknown History bisacodyl 10 mg rectal suppository 10 mg [place] DAILY@2000 PRN 02/17/24 02/26/24 Unknown History (OneLAX Bisacodyl) constiaption sodium phosphates 19 gram-7 118 ml [place] DAILY PRN Constipation 02/17/24 02/26/24 Unknown History gram/118 mL enema (Enema Disposable) terbinafine HCl 1 % topical cream 1 appl topical BID PRN Rash 02/17/24 02/26/24 Unknown History (Antifungal (terbinafine)) diazepam 10 mg tablet 10 mg PO ONCE PRN eye appointment 02/26/24 02/26/24 Unknown History finasteride 5 mg tablet 5 mg PO QPM 02/26/24 02/26/24 Unknown History guaifenesin 100 mg/5 mL oral 200 mg PO Q6H PRN cough/cold 02/26/24 02/26/24 Unknown History liquid (Tussin Mucus-Chest Congestion) hydrocortisone 1 % topical cream 1 appl topical BID PRN Hemorrhoids 02/26/24 02/26/24 Unknown History mineral oil-isopropyl myristat 1 appl topical MOWEFR 02/26/24 02/26/24 Unknown History lotion Physical Exam Vital Signs and Narrative: Vital Signs: Last Vital Signs Temp 98.7 F 04/23/24 05:21 Pulse 73 04/23/24 05:21 Resp 18 04/23/24 05:21 BP 115/64 04/23/24 05:21 Pulse Ox 95 04/23/24 05:21 O2 Del Method Room Air 04/23/24 05:21 BMI result Body Mass Index 25.7 Constitutional - Sleeping. HEENT - NG tube in place Heart - S1S2, RRR. Lungs - Normal lung expansion, Normal respiratory effort, No respiratory distress, CTA bilaterally Abdomen - Distended but depressible, increased BS. Nontender. Extremities - no calf tenderness bilaterally, no swelling Musculoskeletal - Normal inspection, normal ROM Skin - Warm/Dry Neurological - Sleeping (got 2 mg of Ativan IV) Results Labs 04/22/24 21:23 04/22/24 21:23 Labs: Laboratory Results - last 24 hr 04/22/24 04/22/24 04/22/24 21:23 22:58 23:52 MCV 90.5 MCH 30.5 MCHC 33.6 RDW 14.6 Plt Count 169 D MPV 12.0 Immature Gran % (Auto) 0.5 H Neut % (Auto) 83.8 H Lymph % (Auto) 9.4 L [place] % (Auto) 5.5 Eos % (Auto) 0.5 Baso % (Auto) 0.3 Lymph # (Auto) 1.4 [place] # (Auto) 0.8 Eos # (Auto) 0.1 Baso # (Auto) 0.0 Abs Immat Gran (auto) 0.08 H Absolute Neuts (auto) 12.3 H Absolute Nucleated RBC 0.000 Nucleated RBC % (auto) 0.0 Anion Gap 17 Estim Creat Clear Calc 73.8 Estimated GFR > 60 Random Glucose 111 Lactic Acid 1.5 Calcium 9.3 D Total Bilirubin 0.4 AST 20 ALT 22 Alkaline Phosphatase 71 Total Protein 7.3 Albumin 4.0 Urine Color Yellow Urine Appearance Clear Urine pH 6.0 Ur Specific [place] 1.020 Urine Protein Negative Urine Glucose (UA) Negative Urine Ketones Negative Urine Blood Negative Urine Nitrite Negative Ur Leukocyte Esterase Negative Urine RBC 0-2 Urine WBC 0-5 Ur Squamous Epith Cells 0-2 Urine Bacteria None Seen Hyaline Casts 0-2 Imaging Radiologist's Impressions: Impressions Abdomen/Pelvis CT 04/22/24 22:25 IMPRESSION: 1. Large volume of stool throughout the colon with mild wall thickening and surrounding fat stranding at the rectosigmoid junction, potentially corresponding to the degree of stercoral colitis. No evidence of perforation. 2. Gastric distention with reflux of fluid into the distal esophagus. This could be due to gastric of obstruction. Delayed gastric emptying related to delayed bowel transit and increased intra-abdominal pressure from the large stool burden is also possible. 3. Slow bowel transit with fecalization of the distal small bowel. No evidence of small bowel obstruction. Fleischner guidelines were followed. Chest X-Ray 04/23/24 02:17 IMPRESSION: 1. Low lung volumes with bibasilar atelectatic change. 2. Blunting of the right costophrenic angle/right lower lung pleural thickening. This may be chronic or represent a small right pleural effusion. 3. Nasogastric tube appears to be in adequate position. Tip of nasogastric tube is not seen. Assessment and Plan (1) Constipation: Qualifiers: Constipation type: slow transit constipation Qualified Code(s): K59.01 - Slow transit constipation Status: Acute (2) Partial gastric outlet obstruction: Status: Acute Plan Wilfredo Sands is a 73 y/o man PMHx significant for nonverbal learning disabilities admitted with: Gastric outlet syndrome likely secondary to delayed gastric and bowel emptying associated with large stool burden. Admit to hospitalist service. NPO. Continue NG tube to intermittent suction. Start IV fluids antiemetic therapy. Enema. Aspiration precautions. Surgery consult. BPH. Continue finasteride and tamsulosin when able. GERD + Barrette syndrome. PPI IV. Hyperlipidemia. Continue statin when able. Essential hypertension. Hydrochlorothiazide on hold (to avoid dehydration -pt is NPO). BP monitoring for now and to consider IV antihypertensive agents as needed (SBP> 160). Continue lisinopril when able. Constipation. Continue stool softeners, MiraLax, lactulose and milk of magnesia when able. Enema as needed for now. Anxiety. Ativan 1 mg IV as needed. DVT prophylaxis: Heparin subcut Code status: Full Patient will need hospitalization for at least 2 midnights for gastric outlet syndrome treatment with NG tube to intermittent suction and IV fluids. Patient also will need to be evaluated by surgical service. Quality Stroke Does the patient have a stroke diagnosis?: No VTE Prior VTE?: No VTE Risk Level:: Medical - moderate - high VTE Device Contraindication: Treatment Not Indicated VTE Drug Contraindication: N/A - Med Ordered
[2024-04-23] MEDS: KCl 20 mEq in 5% Dex/0.9% Sod 20 MEQ/1,000 ML IV.SOLN 100 MEQ IVCONT (06:04)
--- NOTE | 2024-04-23 06:28 | PC.NURSE ---
this rn noted pt NG tube not to be suctioning at this time, this rn attempted to flush NG tube per , unable to obtain contents and get NG tube to suction. aware, suction turned off and repeat chest x ray ordered.
[2024-04-23] MEDS: Lidocaine HCl 2 % Urojet 10 ML JEL.PF.APP TOPICAL (07:23)
--- NOTE | 2024-04-23 07:33 | PC.NURSE ---
Per RN prior to my arrival, pt removed NG tube. NG tube replaced by provider and two RNs at bedside, tolerated procedure well. Placement confirmed by x-ray. NG tube connected to intermittent suction with + gastric contents noted.
--- NOTE | 2024-04-23 09:49 | PM.EVENT ---
Event Note Date of Service: 04/23/24 Event Note: pt seen and examined. Admited this morning for gastric outlet obstruction, NG inserted and has removed twice. Anothre NGT inserted with nonbehavioral soft restrain. A/P per H and P this morning, requesting surgery consult and med rec to be completed once confirmed. Time Spent With Patient Time: Total time managing care of this patient today ____ minutes.
[2024-04-23 10:01] LABS: Hematocrit 40.1 % (42.0-52.0); Hemoglobin 13.5 g/dl (14.0-18.0); Mean Corpuscular HGB Conc 33.7 g/dl (31.0-36.0); Mean Corpuscular Hemoglobin 30.6 pg (27.0-33.0); Mean Corpuscular Volume 90.9 fL (80.0-98.0); Mean Platelet Volume 12.1 fL (9.4-12.4); Platelet Count 184 X10*3/uL (160-400); Red Blood Count 4.41 X10*6/uL (4.60-5.80); Red Cell Distribution Width 14.6 % (11.0-16.0); White Blood Count 7.1 X10*3/uL (4.8-10.8)
[2024-04-23 10:26] LABS: Anion Gap 15 (12-20); Blood Urea Nitrogen 17 mg/dL (9-16); Chloride 102 mmol/L (96-108); Creatinine Clr Calc Pharmacy 80.7; Estimated Glomerular Filt Rate > 60; Glucose Random 88 mg/dL (60-115); Sodium 140 mmol/L (135-145)
[2024-04-23] MEDS: Pantoprazole Sodium 40 MG/10 ML VIAL IVPUSH (10:40)
[2024-04-23] MEDS: Heparin Sodium,Porcine 5,000 UNIT/ML VIAL 5000 UNIT SUBCUT ×2 (10:40→21:48)
[2024-04-23] MEDS: ondansetron HCL 4 MG/2 ML VIAL IVPUSH ×2 (10:41→21:18)
--- NOTE | 2024-04-23 10:45 | P.CONGS_ITS ---
History of Present Illness Consult details Consult date: 04/23/24 Requesting physician: John Kern Narrative: 73-year-old male patient, resident of senior care, presenting with complaints of abdominal distention, nausea and vomiting. his past history is significant for GERD, Bustamante's syndrome, BPH, essential hypertension. He has nonverbal with a learning disability. He had several episodes of vomiting in his senior care in his abdomen was noted to be distended. He did have a normal bowel movement yesterday. He subsequently presented to the emergency department for further evaluation. WBC was noted to beElevated at 14.7. CT abdomen and pelvis was significant for a very large distended stomach as well as distention with stool in the rectum and colon. Wall thickening with surrounding fat stranding was also noted in the rectosigmoid junction possibly related to stercoral colitis. A nasogastric tube was placed in the emergency department and confirmed by chest x-ray how unfortunately the patient has pulled out the tube several times. Surgical consultation was requested for management of gastric outlet obstruction. Review of Systems 2 Review of Systems: Yes Unobtainable due to mental status [facility] Past Medical History Medical History HTN (hypertension) BPH (benign prostatic hyperplasia) Barretts syndrome GERD (gastroesophageal reflux disease) [place] (hard of hearing) Non-verbal learning disorder Social History Social History Household Members: Caregiver Household Members Other:: From senior care Housing: Other Housing Other:: correction Do you presently have visiting nurse or other home services: Yes (correction) Unable to assess alcohol history related to: Unable to respond and Unknown Comment: sitter from facility Patient Tobacco Use Status: Never used Tobacco Advance Directives Date on File: 01/09/24 service: No Current occupational status: disabled Meds Allergies Allergy/AdvReac Type Severity Reaction Status Date / Time azithromycin [AZITHROMYCIN] Allergy Unknown UNKOWN Verified 04/22/24 21:09 Macrolide Antibiotics Allergy Unknown unknown Verified 04/22/24 21:09 [MACROLIDE ANTIBIOTICS] Macrolides and ketolides Allergy Unknown Unknown Uncoded 04/22/24 21:09 Active Medications: Current Medications Heparin Sodium (Porcine) (Heparin Sodium,Porcine 5,000 Unit/Ml Vial) 5,000 unit SUBCUT Q12H [facility] Last Admin: 04/23/24 10:40 Dose: 5,000 unit Hydralazine HCl (Hydralazine Hcl 20 Mg/Ml Vial) 10 mg IVPUSH Q6H PRN; Protocol PRN Reason: SBP > 160 Potassium Chloride/Dextrose/Sod Cl (Kcl 20 Meq In 5% Dex/0.9% Sod) 20 meq in 1,000 mls @ 100 mls/hr IVCONT .Q10H [facility] Last Admin: 04/23/24 06:04 Dose: 100 mls/hr Lorazepam (Lorazepam 2 Mg/Ml Vial) 1 mg IVPUSH Q4H PRN PRN Reason: Anxiety Ondansetron HCl (Ondansetron Hcl 4 Mg/2 Ml Vial) 4 mg IVPUSH Q6H [facility] Last Admin: 04/23/24 10:41 Dose: 4 mg Pantoprazole Sodium (Pantoprazole Sodium 40 Mg/10 Ml Vial) 40 mg IVPUSH DAILY [facility] Last Admin: 04/23/24 10:40 Dose: 40 mg Sodium Biphosphate/Sodium Phosphate (Sodium Phosphate,[place]-Dibasic 133 Ml Enema) 133 ml [place] ONCE PRN PRN Reason: Constipation Sodium Chloride (0.9 % Sodium Chloride Flush 3 Ml Syringe) 3 ml IVFLUSH QSHIFT [facility] Last Admin: 04/23/24 07:23 Dose: Not Given Home Medications ?Medication ?Instructions ?Recorded ?Confirmed ?Last Taken ?Type docusate sodium 100 mg tablet 100 mg PO BID 11/19/20 02/26/24 Unknown History hydrochlorothiazide 25 mg tablet 25 mg PO DAILY@0800 11/19/20 02/26/24 Unknown History lisinopril 20 mg tablet 20 mg PO QAM 11/19/20 02/26/24 Unknown History pravastatin 40 mg tablet 40 mg PO QPM 11/19/20 02/26/24 Unknown History lactulose 10 gram/15 mL oral 30 ml PO QPM 08/25/21 02/26/24 Unknown History solution loratadine 10 mg tablet 10 mg PO DAILY PRN Allergy Symptoms 08/25/21 02/26/24 Unknown History multivitamin with folic acid 400 1 tab PO DAILY@2100 08/25/21 02/26/24 Unknown History mcg tablet (Thera) omeprazole 40 mg capsule,delayed 40 mg PO QAM 08/25/21 02/26/24 Unknown History release Lactobacillus rhamnosus GG 10 1 cap PO QAM 02/25/22 02/26/24 Unknown History billion cell capsule (Culturelle) bacitracin zinc 500 unit/gram 1 appl topical QID PRN Wound Care 02/25/22 02/26/24 Unknown History topical ointment magnesium hydroxide 400 mg/5 mL 30 ml PO BEDTIME 02/25/22 02/26/24 Unknown History oral suspension (Milk of Magnesia) polyethylene glycol 3350 17 17 g PO DAILY@1700 02/25/22 02/26/24 Unknown History gram/dose oral powder (Miralax) acetaminophen 325 mg tablet 650 mg PO Q6H PRN Fever Or Pain 02/17/24 02/26/24 Unknown History bisacodyl 10 mg rectal suppository 10 mg [place] DAILY@2000 PRN 02/17/24 02/26/24 Unknown History (OneLAX Bisacodyl) constiaption sodium phosphates 19 gram-7 118 ml [place] DAILY PRN Constipation 02/17/24 02/26/24 Unknown History gram/118 mL enema (Enema Disposable) terbinafine HCl 1 % topical cream 1 appl topical BID PRN Rash 02/17/24 02/26/24 Unknown History (Antifungal (terbinafine)) diazepam 10 mg tablet 10 mg PO ONCE PRN eye appointment 02/26/24 02/26/24 Unknown History finasteride 5 mg tablet 5 mg PO QPM 02/26/24 02/26/24 Unknown History guaifenesin 100 mg/5 mL oral 200 mg PO Q6H PRN cough/cold 02/26/24 02/26/24 Unknown History liquid (Tussin Mucus-Chest Congestion) hydrocortisone 1 % topical cream 1 appl topical BID PRN Hemorrhoids 02/26/24 02/26/24 Unknown History mineral oil-isopropyl myristat 1 appl topical MOWEFR 02/26/24 02/26/24 Unknown History lotion Physical Exam 2 Vital Signs: Vital Signs: Last Vital Signs Temp 98.0 F 04/23/24 08:44 Pulse 72 04/23/24 08:44 Resp 18 04/23/24 08:44 BP 113/59 L 04/23/24 08:44 Pulse Ox 98 04/23/24 08:44 O2 Del Method Room Air 04/23/24 08:44 BMI result Body Mass Index 25.7 Const: General: cooperative and no acute distress Nutritional Appearance: w ell nourished Orientation/consciousness: patient oriented x3 Limitations: no limitations HEENT: Head: Yes normocephalic and Yes atraumatic Ears: hearing grossly abnormal bilaterally Resp: Effort & Inspection: normal respiratory effort, no audible wheezes, no cough and no respiratory distress Cardio: Jugular venous distension: no JVD GI: Inspection: Yes normal to inspection Palpation (GI): Soft to palpation, nontender, no guarding and not rigid Percussion: Yes tympanic to percussion Auscultation: abnormal bowel sounds Rectal Exam - Male: Yes deferred Skin: Other: Warm, dry, no rash Neuro: General: patient oriented x3 Extrem: General: Yes no clubbing, cyanosis or edema Results Labs 04/23/24 09:44 04/23/24 09:44 Labs: Abnormal lab results 04/22/24 04/23/24 Range/Units 21:23 09:44 WBC 14.7 H (4.8-10.8) X10*3/uL RBC 4.41 L (4.60-5.80) X10*6/uL Hgb 13.5 L (14.0-18.0) g/dl Hct 40.1 L (42.0-52.0) % Immature Gran % (Auto) 0.5 H (0.0-0.4) % Neut % (Auto) 83.8 H (45-73) % Lymph % (Auto) 9.4 L (20-40) % Abs Immat Gran (auto) 0.08 H (0.00-0.03) X10*3/uL Absolute Neuts (auto) 12.3 H (2.0-8.3) x10*3/uL Carbon Dioxide 21 L (22-29) mmol/L BUN 24 H 17 H (9-16) mg/dL Short CBC 04/22/24 04/23/24 Range/Units 21:23 09:44 WBC 14.7 H 7.1 (4.8-10.8) X10*3/uL Hgb 14.8 D 13.5 L (14.0-18.0) g/dl Hct 44.0 D 40.1 L (42.0-52.0) % Plt Count 169 D 184 (160-400) X10*3/uL BMP 04/22/24 04/23/24 21:23 09:44 Sodium 135 140 Potassium 3.7 4.0 Chloride 101 102 Carbon Dioxide 21 L BUN 24 H 17 H Creatinine 0.82 0.75 Calcium 9.3 D Liver Function 04/22/24 Range/Units 21:23 Total Bilirubin 0.4 (0.0-1.0) mg/dL AST 20 (5-37) U/L ALT 22 (0-40) U/L Alkaline Phosphatase 71 (39-117) U/L Albumin 4.0 (3.5-5.0) g/dL Urine 04/22/24 Range/Units 22:58 Urine Color Yellow Urine Appearance Clear Urine pH 6.0 (5.0-9.0) Ur Specific [place] 1.020 (1.005-1.025) Urine Protein Negative (Neg-Trace) mg/dL Urine Glucose (UA) Negative (Negative) mg/dL All other labs normal. Assessment and Plan (1) Partial gastric outlet obstruction: Status: Acute Plan 73-year-old male patient presenting from senior care with abdominal distention, nausea and vomiting found on CT to have a large stool burden in the rectum as well as proximal colon. Review of CT reveals a markedly distended stomach and duodenal. There is no evidence of free air or intraabdominal fluid collections. No small bowel dilation is noted to indicate a small bowel obstruction. WBC is improved today. NGT recently placed and CXR results pending. I suspect stomach may be full of food and may be difficult to aspirate by NGT. Recommend gastroenterology consultation for possible EGD. Enema for constipation (SSE or TWE). Will continue to monitor. Procedures Date of Service Date of Service: 04/23/24
[2024-04-23 10:49] LABS: Calcium 8.5 mg/dL (8.4-10.2); Carbon Dioxide 27 mmol/L (22-29)
--- NOTE | 2024-04-23 12:08 | PHA.MEDREC ---
Pharmacy Consult ? Medication Reconciliation Pharmacy has completed the medication reconciliation, using med list from [facility] ([facility] of [facility] [phone]). Also spoke to Melissa at [facility] to confirm that patient now takes 0.8 mg of tamsulosin at bedtime.
--- NOTE | 2024-04-23 13:17 | MHC.CM.PN ---
pt from group home[facility] placed and medssage left for sister /darío amaya [phone] dc plan return to nursing home ?bls
[2024-04-24] VITALS (13 sets, daily range): BP systolic 106–140; BP diastolic 50–78; PULSE 70–97; RESP 13–20; TEMP 36.2–36.9; O2SAT 93–99
[2024-04-24] MEDS: LORazepam 2 MG/ML VIAL 1 MG IVPUSH (01:32)
[2024-04-24] MEDS: KCl 20 mEq in 5% Dex/0.9% Sod 20 MEQ/1,000 ML IV.SOLN 100 MEQ IVCONT ×2 (01:48→16:25)
[2024-04-24] MEDS: ondansetron HCL 4 MG/2 ML VIAL IVPUSH ×4 (03:29→20:20)
[2024-04-24] MEDS: Pantoprazole Sodium 40 MG/10 ML VIAL IVPUSH (08:02)
[2024-04-24] MEDS: Heparin Sodium,Porcine 5,000 UNIT/ML VIAL 5000 UNIT SUBCUT ×2 (08:02→20:18)
--- NOTE | 2024-04-24 12:08 | PM.EVENT ---
Event Note Date of Service: 04/24/24 Event Note: GI EGD planned for this pm for further evaluation of abnormal ct scan. Multiple attempts to reach guardian unsuccessful. Pt needs procedure done for continued medical care. Time Spent With Patient Time: Total time managing care of this patient today ____ minutes.
--- NOTE | 2024-04-24 12:13 | MHC.SHP ---
Pre-Procedural Eval Section A - 24 Hr Update-Section A only Date of Service: 04/24/24 The patient is an INPATIENT: Yes Changes since office visit: No Cold of Flu in the past 2 weeks, No New Medical Problems, No Changes in Medication and No Patient answered all questions The patient has been examined within 24 hours of the surgical procedure. The History & Physical has been completed within 30 days and I have reviewed it.: Yes Section B - Complete if H&P > 30 days Chief Complaint: Gastric obstruction Allergies: Allergies Allergy/AdvReac Type Severity Reaction Status Date / Time azithromycin [AZITHROMYCIN] Allergy Unknown UNKOWN Verified 04/22/24 21:09 Macrolide Antibiotics Allergy Unknown unknown Verified 04/22/24 21:09 [MACROLIDE ANTIBIOTICS] Macrolides and ketolides Allergy Unknown Unknown Uncoded 04/22/24 21:09 Plan I have reviewed the history and physical and performed a pertinent physical examination on my patient. No changes have occurred unless specified. Time Spent With Patient Time: Total time managing care of this patient today ____ minutes.
--- NOTE | 2024-04-24 12:36 | P.PNIM_ITS ---
Subjective Subjective Date of Service: 04/24/24 Interval History: f/u on acute gastric bowel seems better, had several bowel movment overnight No agitation Physical Exam 2 Vital Signs: Vital Signs: Last Vital Signs Temp 97.8 F 04/24/24 12:00 Pulse 87 04/24/24 12:00 Resp 18 04/24/24 12:00 BP 140/78 H 04/24/24 12:00 Pulse Ox 97 04/24/24 12:00 O2 Del Method Room Air 04/24/24 12:00 BMI result Body Mass Index 25.0 Const: Other: General: he alert, no verbal Resp: CTA bilateral CVS: S1,S2,RRR GI: +BS, NT, no distention Skin: No rash Neuro: motor grossly intact Psych: appropriate affect Objective Data Active Medications Heparin Sodium (Porcine) (Heparin Sodium,Porcine 5,000 Unit/Ml Vial) 5,000 unit SUBCUT Q12H [facility] Last Admin: 04/24/24 08:02 Dose: 5,000 unit Documented By: RYAN Hydralazine HCl (Hydralazine Hcl 20 Mg/Ml Vial) 10 mg IVPUSH Q6H PRN; Protocol PRN Reason: SBP > 160 Potassium Chloride/Dextrose/Sod Cl (Kcl 20 Meq In 5% Dex/0.9% Sod) 20 meq in 1,000 mls @ 100 mls/hr IVCONT .Q10H [facility] Last Admin: 04/24/24 12:30 Dose: Not Given Documented By: JAVAN Non-Admin Reason: per surgery Lorazepam (Lorazepam 2 Mg/Ml Vial) 1 mg IVPUSH Q4H PRN PRN Reason: Anxiety Last Admin: 04/24/24 01:32 Dose: 1 mg Documented By: ALEX Ondansetron HCl (Ondansetron Hcl 4 Mg/2 Ml Vial) 4 mg IVPUSH Q6H [facility] Last Admin: 04/24/24 08:02 Dose: 4 mg Documented By: RYAN Pantoprazole Sodium (Pantoprazole Sodium 40 Mg/10 Ml Vial) 40 mg IVPUSH DAILY [facility] Last Admin: 04/24/24 08:02 Dose: 40 mg Documented By: RYAN Sodium Biphosphate/Sodium Phosphate (Sodium Phosphate,[place]-Dibasic 133 Ml Enema) 133 ml [place] ONCE PRN PRN Reason: Constipation Sodium Chloride (0.9 % Sodium Chloride Flush 3 Ml Syringe) 3 ml IVFLUSH QSHIFT [facility] Last Admin: 04/24/24 08:03 Dose: Not Given Documented By: RYAN Non-Admin Reason: IV Running Labs 04/23/24 09:44 04/23/24 09:44 Assessment and Plan (1) Constipation: Status: Acute (2) Partial gastric outlet obstruction: Status: Acute (3) Incomplete bladder emptying: Status: Acute Plan 73yo deaf M with GERD, Bustamante's esophagus, BPH, HLD, HTN, chronic constipation, hx DVT no longer on AC, glaucoma, hx aspiration who presented vomitting abdominal distention and found to have gastric outlet obstruction Gastric outlet obstruction syndrome likely secondary to delayed gastric and bowel emptying associated with large stool burden. -Has NGT with large output overnight -had several bowel overnight with enema and abdomen is less distended -GI is planning endoscopy BPH. Continue finasteride and tamsulosin when able. GERD + Barrette syndrome. PPI IV. Hyperlipidemia. Continue statin when able. Essential hypertension. Hydrochlorothiazide on hold (to avoid dehydration -pt is NPO). BP monitoring for now and to consider IV antihypertensive agents as needed (SBP> 160). Continue lisinopril when able. Constipation. Continue stool softeners, MiraLax, lactulose and milk of magnesia when able. Enema as needed for now. Anxiety. Ativan 1 mg IV as needed. VT prophylaxis: Heparin subcut Code status: Full Need for inpatient: bowel obstruction has NGT, NPO, getting IV and need for intervention Quality Stroke Does the patient have a stroke diagnosis?: No VTE Prior VTE?: No VTE Risk Level:: Medical - moderate - high VTE Device Contraindication: Treatment Not Indicated VTE Drug Contraindication: N/A - Med Ordered
--- NOTE | 2024-04-24 14:03 | P.CONAN_ITS ---
[facility] Active Problems Active Problems: All Active Problems Constipation (Acute) Partial gastric outlet obstruction (Acute) Incomplete bladder emptying (Acute) Renal cyst (Acute) Bladder diverticulum (Acute) Elevated PSA (Acute) Nocturia more than twice per night (Acute) Lower urinary tract symptoms due to benign prostatic hyperplasia (Acute) Past Medical History Medical History HTN (hypertension) BPH (benign prostatic hyperplasia) Barretts syndrome GERD (gastroesophageal reflux disease) [place] (hard of hearing) Non-verbal learning disorder Surgical History History of Problems with Anesthesia: Yes Social History Social History Household Members: None Household Members Other:: From custodial Housing: Unknown / Unable to assess Housing Other:: [facility] Do you presently have visiting nurse or other home services: Yes (retirement) Unable to assess alcohol history related to: Unable to respond and Unknown Comment: sitter from facility Patient Tobacco Use Status: Never used Tobacco Advance Directives Date on File: 01/09/24 service: No Current occupational status: disabled Meds Allergies Allergy/AdvReac Type Severity Reaction Status Date / Time azithromycin [AZITHROMYCIN] Allergy Unknown UNKOWN Verified 04/22/24 21:09 Macrolide Antibiotics Allergy Unknown unknown Verified 04/22/24 21:09 [MACROLIDE ANTIBIOTICS] Macrolides and ketolides Allergy Unknown Unknown Uncoded 04/22/24 21:09 Active Medications: Current Medications Heparin Sodium (Porcine) (Heparin Sodium,Porcine 5,000 Unit/Ml Vial) 5,000 unit SUBCUT Q12H [facility] Last Admin: 04/24/24 08:02 Dose: 5,000 unit Hydralazine HCl (Hydralazine Hcl 20 Mg/Ml Vial) 10 mg IVPUSH Q6H PRN; Protocol PRN Reason: SBP > 160 Potassium Chloride/Dextrose/Sod Cl (Kcl 20 Meq In 5% Dex/0.9% Sod) 20 meq in 1,000 mls @ 100 mls/hr IVCONT .Q10H [facility] Last Admin: 04/24/24 12:30 Dose: Not Given Lorazepam (Lorazepam 2 Mg/Ml Vial) 1 mg IVPUSH Q4H PRN PRN Reason: Anxiety Last Admin: 04/24/24 01:32 Dose: 1 mg Ondansetron HCl (Ondansetron Hcl 4 Mg/2 Ml Vial) 4 mg IVPUSH Q6H [facility] Last Admin: 04/24/24 08:02 Dose: 4 mg Pantoprazole Sodium (Pantoprazole Sodium 40 Mg/10 Ml Vial) 40 mg IVPUSH DAILY [facility] Last Admin: 04/24/24 08:02 Dose: 40 mg Sodium Biphosphate/Sodium Phosphate (Sodium Phosphate,[place]-Dibasic 133 Ml Enema) 133 ml [place] ONCE PRN PRN Reason: Constipation Sodium Chloride (0.9 % Sodium Chloride Flush 3 Ml Syringe) 3 ml IVFLUSH QSHIFT [facility] Last Admin: 04/24/24 08:03 Dose: Not Given Home Medications ?Medication ?Instructions ?Recorded ?Confirmed ?Last Taken ?Type docusate sodium 100 mg tablet 100 mg PO BID 11/19/20 04/23/24 Unknown History hydrochlorothiazide 25 mg tablet 25 mg PO DAILY@0800 11/19/20 04/23/24 Unknown History lisinopril 20 mg tablet 20 mg PO QAM 11/19/20 04/23/24 Unknown History pravastatin 40 mg tablet 40 mg PO QPM 11/19/20 04/23/24 Unknown History lactulose 10 gram/15 mL oral 30 ml PO QPM 08/25/21 04/23/24 Unknown History solution loratadine 10 mg tablet 10 mg PO DAILY PRN Allergy Symptoms 08/25/21 04/23/24 Unknown History multivitamin with folic acid 400 1 tab PO DAILY@2100 08/25/21 04/23/24 Unknown History mcg tablet (Thera) omeprazole 40 mg capsule,delayed 40 mg PO QAM 08/25/21 04/23/24 Unknown History release Lactobacillus rhamnosus GG 10 1 cap PO QAM 02/25/22 04/23/24 Unknown History billion cell capsule (Culturelle) bacitracin zinc 500 unit/gram 1 appl topical QID PRN Wound Care 02/25/22 04/23/24 Unknown History topical ointment magnesium hydroxide 400 mg/5 mL 30 ml PO BEDTIME 02/25/22 04/23/24 Unknown History oral suspension (Milk of Magnesia) polyethylene glycol 3350 17 17 g PO DAILY@1700 02/25/22 04/23/24 Unknown History gram/dose oral powder (Miralax) acetaminophen 325 mg tablet 650 mg PO Q6H PRN Fever Or Pain 02/17/24 04/23/24 Unknown History bisacodyl 10 mg rectal suppository 10 mg [place] DAILY@2000 PRN 02/17/24 04/23/24 Unknown History (OneLAX Bisacodyl) constiaption sodium phosphates 19 gram-7 118 ml [place] DAILY PRN Constipation 02/17/24 04/23/24 Unknown History gram/118 mL enema (Enema Disposable) terbinafine HCl 1 % topical cream 1 appl topical BID PRN Rash 02/17/24 04/23/24 Unknown History (Antifungal (terbinafine)) diazepam 10 mg tablet 10 mg PO ONCE PRN eye appointment 02/26/24 04/23/24 Unknown History finasteride 5 mg tablet 5 mg PO QPM 02/26/24 04/23/24 Unknown History guaifenesin 100 mg/5 mL oral 200 mg PO Q6H PRN cough/cold 02/26/24 04/23/24 Unknown History liquid (Tussin Mucus-Chest Congestion) hydrocortisone 1 % topical cream 1 appl topical BID PRN Hemorrhoids 02/26/24 04/23/24 Unknown History mineral oil-isopropyl myristat 1 appl topical MOWEFR 02/26/24 04/23/24 Unknown History lotion Exam Height,Weight and Vital Signs: Height 5 ft 7 in Weight 72.5 kg Last Vital Signs Temp 98 F 04/24/24 13:36 Pulse 78 04/24/24 13:36 Resp 20 04/24/24 13:36 BP 128/71 04/24/24 13:36 Pulse Ox 98 04/24/24 13:36 O2 Del Method Room Air 04/24/24 13:36 Pertinent Lab Results Pertinent Lab Results: Laboratory Tests 04/22/24 04/22/24 04/22/24 21:23 22:58 23:52 WBC 14.7 H RBC 4.86 D Hgb 14.8 D Hct 44.0 D MCV 90.5 MCH 30.5 MCHC 33.6 RDW 14.6 Plt Count 169 D MPV 12.0 Immature Gran % (Auto) 0.5 H Neut % (Auto) 83.8 H Lymph % (Auto) 9.4 L Piatt % (Auto) 5.5 Eos % (Auto) 0.5 Baso % (Auto) 0.3 Lymph # (Auto) 1.4 Piatt # (Auto) 0.8 Eos # (Auto) 0.1 Baso # (Auto) 0.0 Abs Immat Gran (auto) 0.08 H Absolute Neuts (auto) 12.3 H Absolute Nucleated RBC 0.000 Nucleated RBC % (auto) 0.0 Sodium 135 Potassium 3.7 Chloride 101 Carbon Dioxide 21 L Anion Gap 17 BUN 24 H Creatinine 0.82 Estim Creat Clear Calc 73.8 Estimated GFR > 60 Random Glucose 111 Lactic Acid 1.5 Calcium 9.3 D Total Bilirubin 0.4 AST 20 ALT 22 Alkaline Phosphatase 71 Total Protein 7.3 Albumin 4.0 Urine Color Yellow Urine Appearance Clear Urine pH 6.0 Ur Specific [place] 1.020 Urine Protein Negative Urine Glucose (UA) Negative Urine Ketones Negative Urine Blood Negative Urine Nitrite Negative Ur Leukocyte Esterase Negative Urine RBC 0-2 Urine WBC 0-5 Ur Squamous Epith Cells 0-2 Urine Bacteria None Seen Hyaline Casts 0-2 04/23/24 09:44 WBC 7.1 RBC 4.41 L Hgb 13.5 L Hct 40.1 L MCV 90.9 MCH 30.6 MCHC 33.7 RDW 14.6 Plt Count 184 MPV 12.1 Immature Gran % (Auto) Neut % (Auto) Lymph % (Auto) Piatt % (Auto) Eos % (Auto) Baso % (Auto) Lymph # (Auto) Piatt # (Auto) Eos # (Auto) Baso # (Auto) Abs Immat Gran (auto) Absolute Neuts (auto) Absolute Nucleated RBC 0.000 Nucleated RBC % (auto) 0.0 Sodium 140 Potassium 4.0 Chloride 102 Carbon Dioxide 27 Anion Gap 15 BUN 17 H Creatinine 0.75 Estim Creat Clear Calc 80.7 Estimated GFR > 60 Random Glucose 88 Lactic Acid Calcium 8.5 D Total Bilirubin AST ALT Alkaline Phosphatase Total Protein Albumin Urine Color Urine Appearance Urine pH Ur Specific [place] Urine Protein Urine Glucose (UA) Urine Ketones Urine Blood Urine Nitrite Ur Leukocyte Esterase Urine RBC Urine WBC Ur Squamous Epith Cells Urine Bacteria Hyaline Casts Airway Mallampati Class: II TM Dist: >3cm Neck ROM: Limited Loose/Missing/Broken Teeth: Yes, Upper and Lower Heart: RRR Lungs: CTA Assessment and Plan Final Anesthetic Review History of Problems with Anesthesia: Yes NPO: Yes ASA Class: III Final Preanesthetic Review: Meds/Allgs Chart Reviewed, Consent Obtained/Reviewed and Anes Risks/Benef Reviewed Patient Risk: Intermediate Procedure Risk: Intermediate Anesthetic Plan Anesthetic Plan: GA Disposition: Standard PACU
--- NOTE | 2024-04-24 14:23 | PM.EVENT ---
Event Note Date of Service: 04/24/24 Event Note: GI multiple attempts made to contact Sharmin Mitchell [phone]. I believe EGD should be done on an urgent/emergent basis for diagnosis and treatment of his condition. Time Spent With Patient Time: Total time managing care of this patient today ____ minutes.
--- NOTE | 2024-04-24 14:26 | PC.NURSE ---
dr caraballo and this rn called and left message for sister/guardian sister never called back dr caraballo sts patient need surgery is emergent case
--- NOTE | 2024-04-24 15:02 | P.BOP_ITS ---
Brief Operative Note Date of Service: 04/24/24 Pre-op diagnosis: abnormal ct scan of stomach Post-op diagnosis: same (hiatal hernia) Procedure: egd/bx Surgeon: Luiz Riggs MD Anesthesia: MAC Was an Profile Stitching Machine Operator used for this Procedure?: No Estimated blood loss (mL): 2 Pathology: other Condition: stable Disposition: PACU
--- NOTE | 2024-04-24 16:09 | OP_ITS ---
DATE OF SERVICE: 04/24/2024 SURGEON: Luiz Riggs MD INDICATIONS: Abnormal CT scan of the stomach suggesting gastric obstruction. PREOPERATIVE DIAGNOSIS: POSTOPERATIVE DIAGNOSIS: PROCEDURE PERFORMED: Upper endoscopy with biopsy. ESTIMATED BLOOD LOSS: COMPLICATIONS: ANESTHESIA: Monitored anesthesia care. ASSISTANTS: SPECIMENS: DESCRIPTION OF PROCEDURE: A history and physical was performed. The risks and benefits of the procedure were not explained to the patient's guardian as multiple attempts to contact her were unsuccessful prior to the procedure and the procedure was deemed emergent/urgent. The patient was placed in the left lateral decubitus position. The Olympus video gastroscope was introduced into the esophagus, stomach, and duodenum. Examination was performed and the scope was removed. He tolerated the procedure well and was returned to recovery area in stable condition. FINDINGS: Esophagus: There were some NG suction dodson in the distal esophagus. There was a 1 cm area of Bustamante's tissue, which had been previously identified and biopsied. There were no raised lesions or ulcerated areas. There was a small hiatal hernia. Stomach: The stomach showed NG suction dodson. The pylorus was carefully examined and no stricture or obstruction was seen. The scope easily passed into the 2nd portion of the duodenum, which appeared normal. IMPRESSION: 1. Hiatal hernia. 2. Abnormal CT scan of stomach. RECOMMENDATIONS: 1. Discontinue NG suction. 2. Begin clear liquids. MD OPAL Davis/FANY / [id number] MTDD
--- NOTE | 2024-04-24 16:14 | CONS_ITS ---
DATE OF SERVICE: 04/24/2024 REFERRING PHYSICIAN: Pk Fountani MD REASON FOR CONSULTATION: Megacolon and gastric outlet obstruction. HISTORY OF PRESENT ILLNESS: The patient is a 73-year-old man, who was admitted to the hospital on April 23 with vomiting. The patient provides no history and the history is obtained from the record. There is a reported history of dysphagia. He was evaluated in the emergency department and CT scanning from that visit is reviewed, which raised the question of a gastric outlet obstruction. Additional history obtained from outside records indicates that the patient has a history of Bustamante esophagus and last underwent upper endoscopy in December 2021, which showed Bustamante esophagus, but no dysplasia. No outlet obstruction was identified at that time. The patient had an NG tube placed and was admitted to the hospital. NG suction amounts have been stable with 900 mL overnight and 200 mL so far this morning of stomach secretions. There has been no GI bleeding. PAST MEDICAL HISTORY: 1. Hypertension. 2. BPH. 3. Intellectual disability. 4. Bustamante esophagus. 5. Hard of hearing. 6. Nonverbal learning disorder. CURRENT MEDICATIONS: His current medication list is reviewed in the chart. ALLERGIES: MULTIPLE MEDICATION ALLERGIES ARE REVIEWED. FAMILY HISTORY: This is reviewed in the electronic medical record and is noncontributory. SOCIAL HISTORY: There is no reported substance abuse. REVIEW OF SYSTEMS: This is not obtainable. PHYSICAL EXAMINATION: GENERAL: Shows a pleasant male, lying comfortably in bed. VITAL SIGNS: Stable. SKIN: Anicteric. HEENT: Shows an NG tube in place. NECK: Without lymphadenopathy or thyromegaly. LUNGS: Clear. HEART: Shows a regular rate and rhythm. S1, S2. No murmur. ABDOMEN: Soft without focal masses or tenderness. Bowel sounds are present. No organomegaly is noted. EXTREMITIES: Without edema. LABORATORY DATA AND IMAGING STUDIES: Reviewed. IMPRESSION: 1. Abnormal CT scan of the stomach and colon. 2. Some of his colonic dilation may be chronic. It appears that he has not had any trouble with bowel movements and I would recommend further evaluation with upper endoscopy because of the abnormal CT scan of the stomach. Therapy with lactulose, enemas, and MiraLAX can be used if no obstruction is identified on the endoscopy. Thanks for asking me to see him. I will follow him in the hospital with you. MD OPAL Davis/MODL / [id number]
[2024-04-24 16:25] LABS: Anion Gap 11 (12-20); Blood Urea Nitrogen 9 mg/dL (9-16); Calcium 8.5 mg/dL (8.4-10.2); Carbon Dioxide 27 mmol/L (22-29); Chloride 109 mmol/L (96-108); Creatinine Clr Calc Pharmacy 84.1; Estimated Glomerular Filt Rate > 60; Glucose Random 98 mg/dL (60-115); Potassium 3.9 mmol/L (3.3-5.1); Sodium 143 mmol/L (135-145)
[2024-04-24] MEDS: 0.9 % Sodium Chloride Flush 3 ML SYRINGE IVFLUSH ×3 (16:25→22:36)
[2024-04-25] MEDS: KCl 20 mEq in 5% Dex/0.9% Sod 20 MEQ/1,000 ML IV.SOLN 100 MEQ IVCONT
[2024-04-25] MEDS: guaiFENesin 200 MG/10 ML 10 ML LIQUID PO (00:43)
[2024-04-25 02:52] VITALS: BP 117/80; PULSE 79; RESP 16; TEMP 36.6; O2SAT 93
[2024-04-25] MEDS: ondansetron HCL 4 MG/2 ML VIAL IVPUSH ×4 (03:04→20:38)
[2024-04-25] MEDS: Omeprazole 40 MG CAPSULE.DR PO (05:34)
[2024-04-25 07:26] VITALS: BP 120/68; PULSE 70; RESP 18; TEMP 36.9; O2SAT 96
[2024-04-25 08:49] VITALS: BP 119/66
[2024-04-25] MEDS: lisinopriL 20 MG TABLET PO (08:49)
[2024-04-25] MEDS: Heparin Sodium,Porcine 5,000 UNIT/ML VIAL 5000 UNIT SUBCUT ×2 (08:49→20:38)
[2024-04-25] MEDS: Finasteride 5 MG TABLET PO (08:49)
[2024-04-25] MEDS: Lactulose 20 GM/30 ML SOLUTION PO (08:49)
[2024-04-25 08:52] VITALS: BP 119/66
[2024-04-25] MEDS: hydroCHLOROthiazide 25 MG TABLET PO (08:52)
[2024-04-25] MEDS: 0.9 % Sodium Chloride Flush 3 ML SYRINGE IVFLUSH (08:52)
--- NOTE | 2024-04-25 10:18 | HO.POSTANES ---
Post Anesthesia Evaluation Post Anesthesia Evaluation Date of Service: 04/24/24 Vital Signs: Vital Signs Temp Pulse Resp BP Pulse Ox O2 Del Method 04/25/24 08:52 119/66 04/25/24 08:49 119/66 04/25/24 07:26 98.4 F 70 18 120/68 96 Room Air 04/25/24 02:52 97.9 F 79 16 117/80 93 Room Air Anesthesia: General Mental Status: Awake Pain Control: Satisfactory Nausea/Vomiting: None Hydration: Adequate Anesthesia-Related Issues: No Anes. Related Issues
--- NOTE | 2024-04-25 11:17 | HO.PM.IMPN ---
Subjective Subjective Date of Service: 04/25/24 Interval History: f/u on acute nausea and vomitting concern for gastric outlet obstruction EGD 04/24 no obstruction noted, had hiatal hernia. Started on clear liquid but coughing with food and med this morning Physical Exam Vital Signs: Vital Signs: Last Vital Signs Temp 98.4 F 04/25/24 07:26 Pulse 70 04/25/24 07:26 Resp 18 04/25/24 07:26 BP 119/66 04/25/24 08:52 Pulse Ox 96 04/25/24 07:26 O2 Del Method Room Air 04/25/24 07:26 O2 Flow Rate 3 04/24/24 15:05 BMI result Body Mass Index 25.0 Const: Other: General: he alert, no verbal Resp: CTA bilateral CVS: S1,S2,RRR GI: +BS, NT, no distention Skin: No rash Neuro: motor grossly intact Psych: appropriate affect Objective Data Active Medications Acetaminophen (Acetaminophen 325 Mg Tablet) 650 mg PO Q6H PRN PRN Reason: Fever Or Pain Bacitracin (Bacitracin Oint 14 Gm Tube) 1 appl TOPICAL QID PRN PRN Reason: Wound Care Bisacodyl (Bisacodyl 10 Mg Supp.Rect) [address] DAILY@2000 PRN PRN Reason: constiaption Clotrimazole (Clotrimazole 1 % Cream 15 Gm Tube) 1 appl TOPICAL BID PRN PRN Reason: Rash Diazepam (Diazepam 5 Mg Tablet) 10 mg PO ONCE PRN PRN Reason: eye appointment Docusate Sodium (Docusate Sodium 100 Mg Capsule) 100 mg PO BID [facility] Last Admin: 04/25/24 08:52 Dose: Not Given Documented By: BRUCE Non-Admin Reason: cannot crush Finasteride (Finasteride 5 Mg Tablet) 5 mg PO BEDTIME [facility] Last Admin: 04/25/24 08:49 Dose: 5 mg Documented By: BRUCE Guaifenesin (Guaifenesin 200 Mg/10 Ml 10 Ml Liquid) 10 ml PO Q4H PRN PRN Reason: Cough Last Admin: 04/25/24 00:43 Dose: 10 ml Documented By: ALEX Guaifenesin (Guaifenesin 100 Mg/5 Ml Liquid) 5 ml PO Q6H PRN PRN Reason: cough/cold Heparin Sodium (Porcine) (Heparin Sodium,Porcine 5,000 Unit/Ml Vial) 5,000 unit SUBCUT Q12H [facility] Last Admin: 04/25/24 08:49 Dose: 5,000 unit Documented By: BRUCE Hydralazine HCl (Hydralazine Hcl 20 Mg/Ml Vial) 10 mg IVPUSH Q6H PRN; Protocol PRN Reason: SBP > 160 Hydrochlorothiazide (Hydrochlorothiazide 25 Mg Tablet) 25 mg PO DAILY@0800 [facility]; Protocol Last Admin: 04/25/24 08:52 Dose: 25 mg Documented By: BRUCE Hydrocortisone (Hydrocortisone 1 % Cream 28.35 Gm Tube) 1 appl TOPICAL BID PRN; Protocol PRN Reason: Hemorrhoids Lactulose (Lactulose 20 Gm/30 Ml Solution) 20 gm PO BEDTIME [facility] Last Admin: 04/25/24 08:49 Dose: 20 gm Documented By: BRUCE Lisinopril (Lisinopril 20 Mg Tablet) 20 mg PO DAILY [facility]; Protocol Last Admin: 04/25/24 08:49 Dose: 20 mg Documented By: BRUCE Loratadine (Loratadine 10 Mg Tablet) 10 mg PO DAILY PRN PRN Reason: Allergy Symptoms Lorazepam (Lorazepam 2 Mg/Ml Vial) 1 mg IVPUSH Q4H PRN PRN Reason: Anxiety Last Admin: 04/24/24 01:32 Dose: 1 mg Documented By: ALEX Magnesium Hydroxide (Milk Of Magnesia 30 Ml Oral.Susp) 30 ml PO BEDTIME [facility] Multivitamins/Vitamin C (Multivitamin Tablet) 1 tab PO BEDTIME [facility] Omeprazole (Omeprazole 40 Mg Capsule.Dr) 40 mg PO DAILY@0630 [facility] Last Admin: 04/25/24 05:34 Dose: 40 mg Documented By: ALEX Ondansetron HCl (Ondansetron Hcl 4 Mg/2 Ml Vial) 4 mg IVPUSH Q6H [facility] Last Admin: 04/25/24 08:52 Dose: 4 mg Documented By: BRUCE Polyethylene Glycol (Polyethylene Glycol 3350 17 Gm Powd.Pack) 17 gm PO DAILY@1700 [facility] Pravastatin Sodium (Pravastatin Sodium 40 Mg Tablet) 40 mg PO BEDTIME [facility] Sodium Biphosphate/Sodium Phosphate (Sodium Phosphate,[place]-Dibasic 133 Ml Enema) [address] ONCE PRN PRN Reason: Constipation Sodium Biphosphate/Sodium Phosphate (Sodium Phosphate,[place]-Dibasic 133 Ml Enema) [address] DAILY PRN PRN Reason: Constipation Sodium Chloride (0.9 % Sodium Chloride Flush 3 Ml Syringe) 3 ml IVFLUSH QSHIFT [facility] Last Admin: 04/25/24 08:52 Dose: 3 ml Documented By: BRUCE Tamsulosin HCl (Tamsulosin Hcl 0.4 Mg Capsule) 0.8 mg PO BEDTIME [facility] Labs 04/23/24 09:44 04/24/24 16:05 Labs: Laboratory Results - last 24 hr 04/24/24 16:05 Anion Gap 11 L Estim Creat Clear Calc 84.1 Estimated GFR > 60 Random Glucose 98 Calcium 8.5 Assessment and Plan (1) Constipation: Status: Acute (2) Partial gastric outlet obstruction: Status: Acute (3) Incomplete bladder emptying: Status: Acute Plan 73yo deaf M with GERD, Bustamante's esophagus, BPH, HLD, HTN, chronic constipation, hx DVT no longer on AC, glaucoma, hx aspiration who presented vomitting abdominal distention and found to have gastric outlet obstruction ? Gastric outlet obstruction syndrome likely secondary to delayed gastric and bowel emptying associated with large stool burden. EGD did not confirm gastric outlet obstruction,however noted to have hiatal hernia. NGT removed and started on clear liquid but coughing so will get SENIOR FINANCIAL CONSULTANT to assess. BPH. Continue finasteride and tamsulosin when able. GERD + Barrette syndrome. PPI IV, change to PO when eating Hyperlipidemia. Continue statin when able. Essential hypertension. Hydrochlorothiazide on hold (to avoid dehydration -pt is NPO). BP monitoring for now and to consider IV antihypertensive agents as needed (SBP> 160). Continue lisinopril when able. Constipation. Continue stool softeners, MiraLax, lactulose and milk of magnesia when able. Enema as needed for now. Anxiety. Ativan 1 mg IV as needed. VT prophylaxis: Heparin subcut Code status: Full Need for inpatient: bowel obstruction has NGT, NPO, getting IV and need for intervention Quality Stroke Does the patient have a stroke diagnosis?: No VTE Prior VTE?: No VTE Risk Level:: Medical - moderate - high VTE Device Contraindication: Treatment Not Indicated VTE Drug Contraindication: N/A - Med Ordered
--- NOTE | 2024-04-25 13:28 | MHC.CM.PN ---
per rounds pt not ready for dc pt has aspirated
[2024-04-25] MEDS: Dextrose 5 % and Lactated Ring 1,000 ML 125 ML IVCONT ×2 (14:06→21:49)
--- NOTE | 2024-04-25 14:06 | MHC.SLORD ---
Speech Language Pathology Order Status: Per pt's binder from [facility], pt's baseline diet is puree solids and nectar thick liquids. senior living staff reporting some ?difficulty w/ these consistencies during meals. BURGLARY INVESTIGATOR spoke w/ RN at [facility] who reports a hx of instrumental swallow study (?w/ [employer]); unsure if this was w/ BURGLARY INVESTIGATOR or GI or what test was done. RN to send paperwork to hospital tomorrow w/ [facility] staff. RN to call this BURGLARY INVESTIGATOR to provide update via phone later today.
[2024-04-25 15:19] VITALS: BP 134/64; PULSE 79; RESP 13; TEMP 36.4; O2SAT 95
--- NOTE | 2024-04-25 16:03 | P.PNGI_ITS ---
Subjective Subjective Date of Service: 04/25/24 Interval History: Mr Sands provides no history Critical Care Time (minutes): 0 Physical Exam 2 Vital Signs: Vital Signs: Last Vital Signs Temp 97.6 F 04/25/24 15:19 Pulse 79 04/25/24 15:19 Resp 13 04/25/24 15:19 BP 134/64 04/25/24 15:19 Pulse Ox 95 04/25/24 15:19 O2 Del Method Room Air 04/25/24 15:19 O2 Flow Rate 3 04/24/24 15:05 BMI result Body Mass Index 25.0 GI: Other: abdomen is soft and nontender Objective Data Labs 04/23/24 09:44 04/24/24 16:05 Labs: Laboratory Results - last 24 hr 04/24/24 16:05 Sodium 143 Potassium 3.9 Chloride 109 H Carbon Dioxide 27 Anion Gap 11 L BUN 9 Creatinine 0.72 Estim Creat Clear Calc 84.1 Estimated GFR > 60 Random Glucose 98 Calcium 8.5 Procedures Date of Service Date of Service: 04/25/24 Progress Note: A&P Assessment and plan (1) Partial gastric outlet obstruction: Status: Acute Assessment and Plan: no obstruction on EGD now coughing with po intake staff reports some of this previously no reported vomiting TECHNOLOGY INFUSION SPECIALIST/MBS underway. Time Spent With Patient Time: Total time managing care of this patient today ____ minutes. Quality Stroke Does the patient have a stroke diagnosis?: No VTE Prior VTE?: No VTE Risk Level:: Medical - moderate - high VTE Device Contraindication: Treatment Not Indicated VTE Drug Contraindication: N/A - Med Ordered
--- NOTE | 2024-04-25 16:59 | MHC.SL.SWA ---
Risk of Aspiration Due to: Hx dysphagia Dysphasia Diet Status: NPO Liquid Consistency and Strategies for Safe Swallow: Liquid Intake Recommendation: NPO Solid Food Consistency: Dietary Recommendations: NPO Oral Medication Intake: NPO Please contact the pharmacy regarding appropriate crushable or liquid drug formulations that are available whenever modified delivery is recommended. Recommendation for Speech: Inpatient EARLY CHILDHOOD WORKER tx EARLY CHILDHOOD WORKER tx at next level of care MBSS Comment: Pt has hx notable for dysphagia as far back as 2002 according to nursing home. Pt's most recent instrumental swallow evaluation was MBSS in 2016. Pt presenting w/ overt clinical s/s aspiration at bedside and would benefit from an updated MBSS. RN at nursing home requests MBSS to be done inpatient. Discussed w/ MD who is agreeable to MBSS during inpatient stay. Pt is recommended NPO pending MBSS. Hotel Maintenance Technician Clinican/Clinical Fellow: No Supervisory Statement: I have reviewed and agree with the student/clinical fellow's documentation: N/A Speech Language Pathologist: Bonnie Jones M.A., CCC-EARLY CHILDHOOD WORKER
[2024-04-25 19:36] VITALS: BP 158/74; PULSE 79; RESP 13; TEMP 36.9; O2SAT 96
[2024-04-26] MEDS: ondansetron HCL 4 MG/2 ML VIAL IVPUSH ×3 (03:00→18:05)
[2024-04-26 04:00] VITALS: BP 110/53; PULSE 75; RESP 16; TEMP 36.3; O2SAT 94
[2024-04-26] MEDS: Dextrose 5 % and Lactated Ring 1,000 ML 125 ML IVCONT ×2 (06:38→15:02)
[2024-04-26 07:13] VITALS: BP 133/74; PULSE 95; RESP 18; TEMP 36.6; O2SAT 95
--- OUTSIDE RECORDS SUMMARY | 2024-04-26 07:24 | XMS_ITS | Continuity of Care Document ---
Author Organization [facility] [place] Address [address] [place] [address]- Care Team Providers Care House Principal Name Role Phone Brandon Freeman MD Primary Care Physician [facility]): 03/08/24 - 04/07/24 [facility] [place] Adult [address] [place] [address]- Allergies, Adverse Reactions, Alerts Substance Reaction Severity Status azithromycin Active macrolide antibiotics Active ketolides Active Dust Active Immunizations Given and Recorded Vaccine Date Status Refusal Reason RSV vaccine, preF A-preF B, recombinant 11/01/23 R ecorded SARS-CoV-2(COVID-19)mRNA-LNP vac([id number]) 11/01/23 Recorded pneumococcal 20-valent conjugate vaccine 08/02/23 Given Influenza Virus Vaccine (oldterm) 07/25/23 Recorde d Influenza Virus Vaccine (oldterm) 08/31/20 Recorde d Influenza Virus Vaccine (oldterm) 1 07/18/09 Given Influenza Virus Vaccine (oldterm) 2 09/02/07 Given influenza virus vaccine, inactivated 07/22/22 Ayad rded influenza virus vaccine, inactivated 08/17/21 Ayad rded influenza virus vaccine, inactivated 08/04/20 Ayad rded influenza virus vaccine, inactivated 09/19/19 Give n influenza virus vaccine, inactivated 08/28/18 Ayad rded influenza virus vaccine, inactivated 08/01/17 Ayad rded influenza virus vaccine, inactivated 08/07/15 Give n influenza virus vaccine, inactivated 08/02/13 Give n influenza virus vaccine, inactivated 3 07/24/13 Gi stacie influenza virus vaccine, inactivated 4 07/20/12 Gi stacie [id number] 12y+ bivalent booster vax 07/22/22 Recorded tetanus-diphtheria toxoids (Td) 5/18/22 Given tetanus-diphtheria toxoids (Td) 04/08/02 Given tetanus/diphtheria/pertussis, acel(Tdap) 09/30/21 Recorded SARS-CoV-2 (COVID-19) mRNA BNT-162b2 vac 08/17/21 Recorded [...] GIVEN 5Admin Note: [facility] 6Admin Note: Well Done [facility] VIS [id number] given 7Admin Note: given in clinic Medications acetaminophen 325 mg oral tablet 2, tablet, By Mouth, Every 6 hours, PRN, [id number]., # 60 tablet, Refills 0, Maintenance, NEEDED FOR FEVER>100.5 OR PAIN SHOWN BY FACIAL GRIMACE NOTIFY MD IF USED >, 09/13/23 10:09:00 EST, Route to Pharmacy Electronically, [facility], 175.2,... Start Date: 09/13/23 Stop Date: 09/16/23 Status: Ordered bacitracin zinc 500 units/g topical ointment See Instructions, APPLY SMALL AMOUNT TOPICALLY TO SUPERFICIAL WOUNDS 4 TIMES A DAY NEEDED AN ANTIBACTERIAL / CALL MD IF USING FOR MORE THAN 7 DAYS, # 28 Gm, 11 Refills, Maintenance, 11/09/22 15:57:00 EST, [facility], 7, APPLY SMALL AMOUNT T... Start [...] supp, 11 Refills, Maintenance, 12/23/23 8:21:00 EST, [facility], 175.2, cm, 08/02/23 10:30:00 EDT, Height [...] capsule, 11 Refills, Maintenance, 06/21/23 14:02:00 EDT, [facility], 30, TAKE 1 CAPSULE BY MOUTH [...] to Pharmacy... Start Date: 11/22/23 Status: Ordered Ditropan XL 10 mg oral tablet, extended release 10, mg, 1, tablet, By Mouth, Daily, 0, 01/03/07 9:24:09, Print ANNE-MARIE Number, [id number], Constant Indicator Start Date: 01/03/07 Status: Ordered DOK 100 mg oral tablet See Instructions, TAKE 1 TABLET BY MOUTH TWICE DAILY (AM AND PM) (STOOL SOFTENER EQUIVALENT), # 60 tablet, 5 Refills, Maintenance, 02/02/23 15:38:00 EDT, [facility], 175.2, cm, 02/01/23 15:11:00EDT, Height Start [...] Instructions Replace Required Details, Route toPharmacy Electronically, [facility], 175.2, cm... Start Date: 04/09/20 Status: Ordered fit to pt fit to pt, See Instructions, # 1 units, Refills 0, Tot. Refills 0, Maintenance, rigid cervical collar. Fit to pt., 06/21/18 15:59:47 EDT, Compound Start Date: 06/21/18 Status: Ordered Flomax 0.4 mg oral capsule 0.4, mg, 1, capsule, By Mouth, Daily, 0, 0, 01/03/07 9:24:42, Print ANNE-MARIE Number, [id number], Constant Indicator Start Date: 01/03/07 Status: Ordered guaiFENesin 100 mg/5 mL oral liquid 10 mL, By Mouth, 4 times a day, PRN NEEDED FOR COUGH/NOTIFY MD IF NO RELIEF AFTER 48 HRS / DOSE =, GUAIFENESIN (TUSSIN MUCUS CONGEST 100MG/5ML) IC ROBAFEN., # 240 mL, 4 Refills, Maintenance, 07/12/23 14:12:00 EDT, [facility], 175.2, cm, 05/13/... Start Date: 07/12/23 Status: Ordered hydrochlorothiazide 25 mg oral tablet See Instructions, TAKE 1 TAB BY MOUTH DAILY IN AM FOR HTN/MONITOR BP/SEE ANCILLARY ORDERS FOR PARAMETERS OF WHEN TO NOTIFY MD AND HOLD MED, # 30 tablet, Refills 5, Maintenance, 03/05/24 16:57:00 EDT,Instructions Replace Required Details, Route to Pha... Start Date: 03/05/24 Status: Ordered HYDROCORTISONE 1% CREAM 1 Cream [...] Gm, 11 Refills, Maintenance, 12/11/19 11:11:00 EST, [facility], APPLY TO EXTERNAL HEMMORRHOIDS TWICE DAILY PRN PER DR FREEMAN, 175.2, cm, 10/12/19 8:18:00 EST, Height,... Start Date: 12/11/19 Status: Ordered ibuprofen 400 mg oral tablet 400 mg, 1, tablet, By Mouth, 3 times a day, PRN, # 30 tablet, Refills 1, Tot. Refills 1, Maintenance, as needed for pain, 12/25/18 11:23:03 EST, Route to Pharmacy Electronically, [id number], [facility] Start Date: 12/25/18 Status: Ordered lactulose 10 gm/15 ml oral syrup = 20 Gm, By Mouth, Daily at bedtime, GIVE WITH., # 946 mL, 11 Refills, Maintenance, 09/27/23 9:40:00 EST, [facility], 31, TWO TABLESPOONFULS BY MOUTH DAILY [...] Replace Requir... Start Date: 10/27/23 Status: Ordered loratadine 10 mg oral tablet 1, tablet, By Mouth, Daily, PRN, # 30 tablet, Refills 11, Maintenance, NEEDED FOR ALLERGY SYMPTOMS WATERY, ITCHY RED EYES, SNEEZING FOR ALLERGIC RHINITIS, 08/30/23 16:24:00 EDT, Route to Pharmacy Electronically, [facility], 175.2, cm, 08/02/23... Start Date: 08/30/23 Status: Ordered Milk of Magnesia 8% oral suspension See Instructions, 30 ML BY MOUTH DAILY AT BEDTIME FOR CONSTIPATION [id number] MG, # 900 mL, 5 Refills, Maintenance, 04/04/24 16:04:00 EDT, [facility], 175.2, cm, 03/16/24 10:40:00 EDT, Height Start Date: 04/04/24 Status: Ordered omeprazole 40 mg oral enteric coated capsule See Instructions, TAKE 1 CAPSULE BY MOUTH DAILY FOR GERD IN AM MAY OPEN CAPSULE, # 30 capsule, 5 Refills, Maintenance, 10/26/23 8:21:00 EST, [facility], 175.2, cm, 08/02/23 10:30:00 EDT, Height Start Date: 10/26/23 Status: Ordered polyethylene glycol 3350 oral powder for reconstitution See Instructions, MIX 17GM WITH 8 OUNCES OF WATER OR JUICE DAILY AND TAKE BY MOUTH AT 5PM FOR CONSTIPATION, # 510 Gm, 5 Refills, Maintenance, 10/26/23 9:47:00 EST, [facility], 30, MIX 17GM WITH 8 OUNCES OF WATER OR JUICE DAILY AND TAKE BY MOUTH A... Start Date: 10/26/23 Status: Ordered pravastatin 40 mg oral tablet 1 tablet, By Mouth, Daily, IN THE PM FOR HYPERLIPIDEMIA., # 30 tablet, 5 Refills, Maintenance, 11/09/23 7:50:00 EST, [facility], 175.2, cm, 08/02/23 10:30:00 EDT, Height Start Date: 11/09/23 Status: Ordered Profola oral tablet 1 tablet, By Mouth, Daily, # 30 tablet, 11 Refills, Maintenance, 06/24/23 10:40:00 EDT, [facility], Partial fill upon patient request if [...] EDT, Height Start Date: 03/22/23 Status: Ordered TERBINAFINE 1% CREAM 1 Cream TERBINAFINE 1% CREAM 1 Cream, See Instructions, # 28.4 Gm, 1 Refills, Maintenance, APPLY TO AFFECTED AREA TWICE DAILY NEEDED FOR RASH ON FEET, 03/30/24 8:27:00 EDT, 175.2, cm, 03/16/24 10:40:00 EDT, Height Start Date: 03/30/24 Status: Ordered terbinafine 1% topical cream 1 [...] Confirmed Active UI (urinary incontinence) Confirmed Active 44623; repeat 2020 61104; repeat 2018 3egd 2012 barretts, repeat 2015 4egd 2010 positive barretts repeat 2012 5C2 6colonoscopy 2007 nl repeat 2017 7repeat 2024 73516 Social History Social History Type Response Smoking Status Never smoker entered on: 06/25/16 Sex Patient Care team information Care Team Personnel Name: Hannah Roque RN Position: [facility] RN Member Role: Primary Care Nurse Name: Rgegie Godinez RN Position: [facility] RN Member Role: Primary Care Nurse Name: Christiane Cedillo RN Position: [facility] RN Member Role: Primary Care Nurse Name: Brandon Freeman MD Position: [facility] Physician - Primary Care Member Role: PCP Address: Address: [address] [place] [phone]- [place] Name: Janeen Hoskins RN Position: [facility] ED RN W/OE and Tasks Member Role: Primary Care Nurse Name: Cydney Mckinney RN Position: [facility] SN RN Member Role: Primary Care Nurse Name: Frantz Mi III, RN Position: [facility] RN Member Role: Primary Care Nurse Name: Tahmina LAND MANAGEMENT FORESTER, Cate Melgar Position: Reference Physician Member Role: Primary Care Nurse Address: Address: [address] [place] [id number]- [place] Name: Massiel Lu RN Position: [facility] RN Member Role: Primary Care Nurse Name: Lurdes Mujica RN Position: [facility] RN Member Role: Primary Care Nurse Name: Brandie Horvath RN Position: [facility] Hospital Software Project Lead Member Role: Primary Care Nurse Name: Claribel Howe RN Position: [facility] SN RN Member Role: Primary Care Nurse Care Team Related Persons Name: JOHAN PERKINS Name: DAWOOD DE LOS SANTOS Address: home [address] [place] [id number] Name: JENNIFER JUAREZ Address: home [address] [place] [id number]
--- OUTSIDE RECORDS SUMMARY | 2024-04-26 07:26 | XMS_ITS | Continuity of Care Document ---
Author Organization [facility] [place] [facility] Address [address] [place] [address]- Care Team Providers Care Medical Science Liaison Name Role Phone Brandon Freeman MD Primary Care Physician [facility]24 - 04/01/24 [facility] [place] Adult [address] [place] [address]- Allergies, Adverse Reactions, Alerts Substance Reaction Severity Status azithromycin Active macrolide antibiotics Active ketolides Active Dust Active Immunizations Given and Recorded Vaccine Date Status Refusal Reason RSV vaccine, preF A-preF B, recombinant 11/01/23 R ecorded SARS-CoV-2(COVID-19)mRNA-LNP vac([id number]) 11/01/23 Recorded pneumococcal 20-valent conjugate vaccine 08/02/23 [...] virus vaccine, inactivated 4 07/20/12 Gi stacie [id number] 12y+ bivalent booster vax 07/22/22 Recorded tetanus-diphtheria [...] GIVEN 5Admin Note: [facility]INIC 6Admin Note: [facility] VIS [id number] given 7Admin Note: given in clinic Medications acetaminophen 325 mg oral tablet 2, tablet, By Mouth, Every 6 hours, PRN, [id number]., # 60 tablet, Refills 0, Maintenance, NEEDED FOR FEVER>100.5 OR PAIN SHOWN BY FACIAL GRIMACE NOTIFY MD IF USED >, 09/13/23 10:09:00 EST, Route to Pharmacy Electronically, [facility], 175.2,... Start Date: 09/13/23 Stop Date: 09/16/23 Status: Ordered bacitracin zinc 500 units/g topical ointment See Instructions, APPLY SMALL AMOUNT TOPICALLY TO SUPERFICIAL WOUNDS 4 TIMES A DAY NEEDED AN ANTIBACTERIAL / CALL MD IF USING FOR MORE THAN 7 DAYS, # 28 Gm, 11 Refills, Maintenance, 11/09/22 15:57:00 EST, [facility], 7, APPLY SMALL AMOUNT T... Start [...] supp, 11 Refills, Maintenance, 12/23/23 8:21:00 EST, [facility], 175.2, cm, 08/02/23 10:30:00 EDT, Height [...] 30 SEC... Start Date: 10/26/18 Status: Ordered CultureRelayre Health and Wellness oral capsule See Instructions, TAKE 1 CAPSULE BY MOUTH DAILY IN AM FOR INTESTINAL HEALTH 1 CAP=15 BILLION CFU MAY OPEN CAPSULE, # 30 capsule, 11 Refills, Maintenance, 06/21/23 14:02:00 EDT, [facility], 30, TAKE 1 CAPSULE BY MOUTH [...] Stop 04/06/24 13:54:00 EDT, 04/05/23 13:54:00 EDT, [facility], 5, ONE... Start Date: 04/05/23 Stop Date: 04/06/24 Status: Ordered Ditropan XL 10 mg oral tablet, extended release 10, mg, 1, tablet, By Mouth, Daily, 0, 01/03/07 9:24:09, Print ANNE-MARIE Number, [id number], Constant Indicator Start Date: 01/03/07 Status: Ordered DOK 100 mg oral tablet See Instructions, TAKE 1 TABLET BY MOUTH TWICE DAILY (AM AND PM) (STOOL SOFTENER EQUIVALENT), # 60 tablet, 5 Refills, Maintenance, 02/02/23 15:38:00 EDT, [facility], 175.2, cm, 02/01/23 15:11:00EDT, Height Start [...] Instructions Replace Required Details, Route toPharmacy Electronically, [facility], 175.2, cm... Start Date: 04/09/20 Status: Ordered fit to pt fit to pt, See Instructions, # 1 units, Refills 0, Tot. Refills 0, Maintenance, rigid cervical collar. Fit to pt., 06/21/18 15:59:47 EDT, Compound Start Date: 06/21/18 Status: Ordered Flomax 0.4 mg oral capsule 0.4, mg, 1, capsule, By Mouth, Daily, 0, 0, 01/03/07 9:24:42, Print ANNE-MARIE Number, [id number], Constant Indicator Start Date: 01/03/07 Status: Ordered guaiFENesin 100 mg/5 mL oral liquid 10 mL, By Mouth, 4 times a day, PRN NEEDED FOR COUGH/NOTIFY MD IF NO RELIEF AFTER 48 HRS / DOSE =, GUAIFENESIN (TUSSIN MUCUS CONGEST 100MG/5ML) IC ROBAFEN., # 240 mL, 4 Refills, Maintenance, 07/12/23 14:12:00 EDT, [facility], 175.2, cm, 05/13/... Start Date: 07/12/23 [...] Gm, 11 Refills, Maintenance, 12/11/19 11:11:00 EST, [facility], APPLY TO EXTERNAL HEMMORRHOIDS TWICE DAILY PRN PER DR FREEMAN, 175.2, cm, 10/12/19 8:18:00 EST, Height,... Start Date: 12/11/19 Status: Ordered ibuprofen 400 mg oral tablet 400 mg, 1, tablet, By Mouth, 3 times a day, PRN, # 30 tablet, Refills 1, Tot. Refills 1, Maintenance, as needed for pain, 12/25/18 11:23:03 EST, Route to Pharmacy Electronically, [id number], [facility] Start Date: 12/25/18 Status: Ordered lactulose 10 gm/15 ml oral syrup = 20 Gm, By Mouth, Daily at bedtime, GIVE WITH., # 946 mL, 11 Refills, Maintenance, 09/27/23 9:40:00 EST, [facility], 31, TWO TABLESPOONFULS BY MOUTH DAILY [...] 08/30/23 16:24:00 EDT, Route to Pharmacy Electronically, [facility], 175.2, cm, 08/02/23... Start Date: 08/30/23 Status: Ordered Milk of Magnesia 8% oral suspension 30 mL, By Mouth, Daily at bedtime, FOR CONSTIPATION [id number] MG., # 900 mL, 5 Refills, Maintenance, 10/05/23 12:52:00 EST, [facility], 175.2, cm, 08/02/23 10:30:00 EDT, Height Start Date: 10/05/23 Status: Ordered omeprazole 40 mg oral enteric coated capsule See Instructions, TAKE 1 CAPSULE BY MOUTH DAILY FOR GERD IN AM MAY OPEN CAPSULE, # 30 capsule, 5 Refills, Maintenance, 10/26/23 8:21:00 EST, [facility], 175.2, cm, 08/02/23 10:30:00 EDT, Height Start Date: 10/26/23 Status: Ordered polyethylene glycol 3350 oral powder for reconstitution See Instructions, MIX 17GM WITH 8 OUNCES OF WATER OR JUICE DAILY AND TAKE BY MOUTH AT 5PM FOR CONSTIPATION, # 510 Gm, 5 Refills, Maintenance, 10/26/23 9:47:00 EST, [facility], 30, MIX 17GM WITH 8 OUNCES OF WATER OR JUICE DAILY AND TAKE BY MOUTH A... Start Date: 10/26/23 Status: Ordered pravastatin 40 mg oral tablet 1 tablet, By Mouth, Daily, IN THE PM FOR HYPERLIPIDEMIA., # 30 tablet, 5 Refills, Maintenance, 11/09/23 7:50:00 EST, [facility], 175.2, cm, 08/02/23 10:30:00 EDT, Height Start Date: 11/09/23 Status: Ordered Profola oral tablet 1 tablet, By Mouth, Daily, # 30 tablet, 11 Refills, Maintenance, 06/24/23 10:40:00 EDT, [facility], Partial fill upon patient request if [...] 1 Refills, Maintenance, 05/11/22 14:45:00 EDT, Cream, [facility], Partial fill upon patient request if [...] tablet, 5 Refills, Maintenance, 04/04/23 21:00:00 EDT, [facility], 30, TAKE 1 TABLET BY MOUTH [...] Confirmed Active UI (urinary incontinence) Confirmed Active 95805; repeat 2020 07392; repeat 2018 3egd 2011 barretts, repeat 2014 4egd 2010 positive barretts repeat 2012 5C2 6colonoscopy 2007 nl repeat 2017 7repeat 2024 [id number] Social History Social History Type Response Smoking Status Never smoker entered on: 06/25/16 Sex Patient Care team information Care Team Personnel Name: Hannah Roque RN Position: [facility] RN Member Role: Primary Care Nurse Name: Reggie Godinez RN Position: [facility] RN Member Role: Primary Care Nurse Name: Christiane Cedillo RN Position: [facility] RN Member Role: Primary Care Nurse Name: Brandon Freeman MD Position: [facility] Physician - Primary Care Member Role: PCP Address: Address: [address] [place] [phone]- Name: Janeen Hoskins RN Position: [facility] ED RN W/OE and Tasks Member Role: Primary Care Nurse Name: Cydney Mckinney RN Position: [facility] SN RN Member Role: Primary Care Nurse Name: Frantz Mi III, RN Position: [facility] RN Member Role: Primary Care Nurse Name: Cate Martel NP Position: Reference Physician Member Role: Primary Care Nurse Address: Address: [address] [place] [phone]- [place] Name: Massiel Lu RN Position: [facility] RN Member Role: Primary Care Nurse Name: Lurdes Mujica RN Position: [facility] RN Member Role: Primary Care Nurse Name: Branide Horvath RN Position: [facility] Hospital Casket Assembler Metal Member Role: Primary Care Nurse Name: Claribel Howe RN Position: [facility] SN RN Member Role: Primary Care Nurse Care Team Related Persons Name: JOHAN PERKINS Name: DAWOOD DE LOS SANTOS Address: [address] [place] [id number] Name: JENNIFER JUAREZ Address: home [address] [place] [address]
--- OUTSIDE RECORDS SUMMARY | 2024-04-26 07:26 | XMS_ITS | Continuity of Care Document ---
Author Organization [facility] Chace lt Address [address] [place] [address]- Care Team Providers Care Floral Assistant Name Role Phone Brandon Freeman MD Primary Care Physician [phone] Encounter [facility] Date(s): 03/16/24 - 04/15/24 [facility] Adult [address] [place] [address]- Attending Physician: Admtr, Ar8 Allergies, Adverse Reactions, Alerts Substance Reaction Severity Status azithromycin Active macrolide antibiotics Active Dust Active ketolides Active Immunizations Given and Recorded Vaccine Date Status Refusal Reason RSV vaccine, preF A-preF B, recombinant 11/01/23 R ecorded SARS-CoV-2(COVID-19)mRNA-LNP vac([id number]) 11/01/23 Recorded pneumococcal 20-valent conjugate vaccine 08/02/23 [...] virus vaccine, inactivated 4 07/20/12 Gi stacie [id number] 12y+ bivalent booster vax 07/22/22 Recorded tetanus-diphtheria [...] GIVEN 5Admin Note: [facility] 6Admin Note: [facility] VIS [id number] given 7Admin Note: given in clinic Medications acetaminophen 325 mg oral tablet 2, tablet, By Mouth, Every 6 hours, PRN, [id number]., # 60 tablet, Refills 0, Maintenance, NEEDED FOR FEVER>100.5 OR PAIN SHOWN BY FACIAL GRIMACE NOTIFY MD IF USED >, 09/13/23 10:09:00 EST, Route to Pharmacy Electronically, [facility], 175.2,... Start Date: 09/13/23 Stop Date: 09/16/23 Status: Ordered bacitracin zinc 500 units/g topical ointment See Instructions, APPLY SMALL AMOUNT TOPICALLY TO SUPERFICIAL WOUNDS 4 TIMES A DAY NEEDED AN ANTIBACTERIAL / CALL MD IF USING FOR MORE THAN 7 DAYS, # 28 Gm, 11 Refills, Maintenance, 11/09/22 15:57:00 EST, [facility], 7, APPLY SMALL AMOUNT T... Start [...] supp, 11 Refills, Maintenance, 12/23/23 8:21:00 EST, [facility], 175.2, cm, 08/02/23 10:30:00 EDT, Height [...] capsule, 11 Refills, Maintenance, 06/21/23 14:02:00 EDT, [facility], 30, TAKE 1 CAPSULE BY MOUTH [...] Daily, 0, 01/03/07 9:24:09, Print ANNE-MARIE Number, [id number], Constant Indicator Start Date: 01/03/07 Status: Ordered [...] Instructions Replace Required Details, Route toPharmacy Electronically, [facility], 175.2, cm... Start Date: 04/09/20 Status: Ordered fit to pt fit to pt, See Instructions, # 1 units, Refills 0, Tot. Refills 0, Maintenance, rigid cervical collar. Fit to pt., 06/21/18 15:59:47 EDT, Compound Start Date: 06/21/18 Status: Ordered Flomax 0.4 mg oral capsule 0.4, mg, 1, capsule, By Mouth, Daily, 0, 0, 01/03/07 9:24:42, Print ANNE-MARIE Number, [id number], Constant Indicator Start Date: 01/03/07 Status: Ordered [...] Gm, 11 Refills, Maintenance, 12/11/19 11:11:00 EST, [facility], APPLY TO EXTERNAL HEMMORRHOIDS TWICE DAILY PRN PER DR FREEMAN, 175.2, cm, 10/12/19 8:18:00 EST, Height,... Start Date: 12/11/19 Status: Ordered ibuprofen 400 mg oral tablet 400 mg, 1, tablet, By Mouth, 3 times a day, PRN, # 30 tablet, Refills 1, Tot. Refills 1, Maintenance, as needed for pain, 12/25/18 11:23:03 EST, Route to Pharmacy Electronically, [id number], [facility] Start Date: 12/25/18 Status: Ordered lactulose 10 gm/15 ml oral syrup = 20 Gm, By Mouth, Daily at bedtime, GIVE WITH., # 946 mL, 11 Refills, Maintenance, 09/27/23 9:40:00 EST, [facility], 31, TWO TABLESPOONFULS BY MOUTH DAILY [...] 08/30/23 16:24:00 EDT, Route to Pharmacy Electronically, [facility], 175.2, cm, 08/02/23... Start Date: 08/30/23 Status: Ordered Milk of Magnesia 8% oral suspension See Instructions, 30 ML BY MOUTH DAILY AT BEDTIME FOR CONSTIPATION [id number] MG, # 900 mL, 5 Refills, Maintenance, 04/04/24 16:04:00 EDT, [facility], 175.2, cm, 03/16/24 10:40:00 EDT, Height Start Date: 04/04/24 Status: Ordered omeprazole 40 mg oral enteric coated capsule See Instructions, TAKE 1 CAPSULE BY MOUTH DAILY FOR GERD IN AM MAY OPEN CAPSULE, # 30 capsule, 5 Refills, Maintenance, 10/26/23 8:21:00 EST, [facility], 175.2, cm, 08/02/23 10:30:00 EDT, Height Start Date: 10/26/23 Status: Ordered polyethylene glycol 3350 oral powder for reconstitution See Instructions, MIX 17GM WITH 8 OUNCES OF WATER OR JUICE DAILY AND TAKE BY MOUTH AT 5PM FOR CONSTIPATION, # 510 Gm, 5 Refills, Maintenance, 10/26/23 9:47:00 EST, [facility], 30, MIX 17GM WITH 8 OUNCES OF WATER OR JUICE DAILY AND TAKE BY MOUTH A... Start Date: 10/26/23 Status: Ordered pravastatin 40 mg oral tablet 1 tablet, By Mouth, Daily, IN THE PM FOR HYPERLIPIDEMIA., # 30 tablet, 5 Refills, Maintenance, 11/09/23 7:50:00 EST, [facility], 175.2, cm, 08/02/23 10:30:00 EDT, Height Start Date: 11/09/23 Status: Ordered Profola oral tablet 1 tablet, By Mouth, Daily, # 30 tablet, 11 Refills, Maintenance, 06/24/23 10:40:00 EDT, [facility], Partial fill upon patient request if [...] Confirmed Active UI (urinary incontinence) Confirmed Active 21085; repeat 202015; repeat 2017 3egd 2011 barretts, repeat 2014 4egd 2010 positive barretts repeat 2011 5C2 6colonoscopy 2007 nl repeat 2016 7repeat 2024 22149 Social History Social History Type Response Smoking Status Never smoker entered on: 06/25/16 Sex Cardiology * Brigette Young: PERFORM Event Display: Cardiovascular Results Scanned Authored Date: [id number] * Brigette Young: PERFORM Event Display: Cardiovascular Results Scanned Authored Date: * Jacy Mills: PERFORM Event Display: Cardiovascular Results Scanned Authored Date: Laboratory * Event Display: Non BH Lab Results Authored Date: * Event Display: Non BH Lab Results Authored Date: * Event Display: Non BH Lab Results Authored Date: * Event Display: Non BH Lab Results Authored Date: * Event Display: Non BH Lab Results Authored Date: * Event Display: Non BH Lab Results Authored Date: Radiology * Event Display: X-Ray Chest, Non- BH Authored Date: * Event Display: Ultrasound Lower Extremity, Non-BH Authored Date: * Brigette Young: PERFORM Event Display: Radiology Results Scanned Authored Date: Patient Care team information Care Team Personnel Name: Hannah Roque RN Position: [facility] RN Member Role: Primary Care Nurse Name: Reggie Godinez RN Position: S RN Member Role: Primary Care Nurse Name: Christiane Cedillo RN Position: [facility] RN Member Role: Primary Care Nurse Name: Brandon Freeman MD Position: [facility] Physician - Primary Care Member Role: PCP Address: Address: [address] [place] [id number]- Name: Janeen Hoskins RN Position: [facility] RN W/OE and Tasks Member Role: Primary Care Nurse Name: Cydney Mckinney RN Position: [facility] SN RN Member Role: Primary Care Nurse Name: Frantz Mi III, RN Position: [facility] RN Member Role: Primary Care Nurse Name: Tahmina LUZ, Cate Melgar Position: Reference Physician Member Role: Primary Care Nurse Address: Address: [address] [place] [id number] Name: Massiel Lu RN Position: [facility] RN Member Role: Primary Care Nurse Name: Lurdes Mujica RN Position: [facility] RN Member Role: Primary Care Nurse Name: Brandie Horvath RN Position: [facility] Production Tool Engineer Member Role: Primary Care Nurse Name: Claribel Howe RN Position: [facility] SN RN Member Role: Primary Care Nurse Care Team Related Persons Name: JOHAN PERKINS Name: DAWOOD DE LOS SANTOS Address: home [address] [place] [id number] Name: JENNIFER JUAREZ Address: home [address] [place] [id number]
--- OUTSIDE RECORDS SUMMARY | 2024-04-26 07:27 | XMS_ITS | Continuity of Care Document ---
Author Organization [facility] lt Address [address] [place] [address]- Care Team Providers Care Draughtsman Name Role Phone La MADISON, Brandon Chamorro Primary Care Physician Encounter [facility] Date(s): 03/16/24 - 03/23/24 [facility] [address] [place] [address]- Encounter Diagnosis Influenza(Discharge Diagnosis) - 03/16/24 Cough(Discharge Diagnosis) - 03/16/24 Attending Physician: Not on Staff, Attending MD Allergies, Adverse Reactions, Alerts Substance Reaction Severity Status azithromycin Active macrolide antibiotics Active Dust Active ketolides Active Immunizations Given and Recorded Vaccine Date Status Refusal Reason RSV vaccine, preF A-preF B, recombinant 11/01/23 R ecorded SARS-CoV-2(COVID-19)mRNA-LNP vac([id number]) 11/01/23 Recorded pneumococcal 20-valent conjugate vaccine 08/02/23 [...] virus vaccine, inactivated 4 07/20/12 Gi stacie [id number] 12y+ bivalent booster vax 07/22/22 Recorded tetanus-diphtheria [...] GIVEN 5Admin Note: [facility] 6Admin Note: [facility] VIS [id number] given 7Admin Note: given in clinic Medications acetaminophen 325 mg oral tablet 2, tablet, By Mouth, Every 6 hours, PRN, [id number]., # 60 tablet, Refills 0, Maintenance, NEEDED FOR FEVER>100.5 OR PAIN SHOWN BY FACIAL GRIMACE NOTIFY MD IF USED >, 09/13/23 10:09:00 EST, Route to Pharmacy Electronically, [facility], 175.2,... Start Date: 09/13/23 Stop Date: 09/16/23 Status: Ordered bacitracin zinc 500 units/g topical ointment See Instructions, APPLY SMALL AMOUNT TOPICALLY TO SUPERFICIAL WOUNDS 4 TIMES A DAY NEEDED AN ANTIBACTERIAL / CALL MD IF USING FOR MORE THAN 7 DAYS, # 28 Gm, 11 Refills, Maintenance, 11/09/22 15:57:00 EST, [facility], 7, APPLY SMALL AMOUNT T... Start [...] supp, 11 Refills, Maintenance, 12/23/23 8:21:00 EST, [facility], 175.2, cm, 08/02/23 10:30:00 EDT, Height [...] capsule, 11 Refills, Maintenance, 06/21/23 14:02:00 EDT, [facility], 30, TAKE 1 CAPSULE BY MOUTH [...] Stop 04/06/24 13:54:00 EDT, 04/05/23 13:54:00 EDT, [facility], 5, ONE... Start Date: 04/05/23 Stop Date: 04/06/24 Status: Ordered Ditropan XL 10 mg oral tablet, extended release 10, mg, 1, tablet, By Mouth, Daily, 0, 01/03/07 9:24:09, Print ANNE-MARIE Number, [id number], Constant Indicator Start Date: 01/03/07 Status: Ordered DOK 100 mg oral tablet See Instructions, TAKE 1 TABLET BY MOUTH TWICE DAILY (AM AND PM) (STOOL SOFTENER EQUIVALENT), # 60 tablet, 5 Refills, Maintenance, 02/02/23 15:38:00 EDT, [facility], 175.2, cm, 02/01/23 15:11:00EDT, Height Start [...] Instructions Replace Required Details, Route toPharmacy Electronically, [facility], 175.2, cm... Start Date: 04/09/20 Status: Ordered fit to pt fit to pt, See Instructions, # 1 units, Refills 0, Tot. Refills 0, Maintenance, rigid cervical collar. Fit to pt., 06/21/18 15:59:47 EDT, Compound Start Date: 06/21/18 Status: Ordered Flomax 0.4 mg oral capsule 0.4, mg, 1, capsule, By Mouth, Daily, 0, 0, 01/03/07 9:24:42, Print ANNE-MARIE Number, [id number], Constant Indicator Start Date: 01/03/07 Status: Ordered guaiFENesin 100 mg/5 mL oral liquid 10 mL, By Mouth, 4 times a day, PRN NEEDED FOR COUGH/NOTIFY MD IF NO RELIEF AFTER 48 HRS / DOSE =, GUAIFENESIN (TUSSIN MUCUS CONGEST 100MG/5ML) IC ROBAFEN., # 240 mL, 4 Refills, Maintenance, 07/12/23 14:12:00 EDT, [facility], 175.2, cm, ... Start Date: 07/12/23 [...] Gm, 11 Refills, Maintenance, 12/11/19 11:11:00 EST, [facility], APPLY TO EXTERNAL HEMMORRHOIDS TWICE DAILY PRN PER DR FREEMAN, 175.2, cm, 10/12/19 8:18:00 EST, Height,... Start Date: 12/11/19 Status: Ordered ibuprofen 400 mg oral tablet 400 mg, 1, tablet, By Mouth, 3 times a day, PRN, # 30 tablet, Refills 1, Tot. Refills 1, Maintenance, as needed for pain, 12/25/18 11:23:03 EST, Route to Pharmacy Electronically, [id number], [facility] Start Date: 12/25/18 Status: Ordered lactulose 10 gm/15 ml oral syrup = 20 Gm, By Mouth, Daily at bedtime, GIVE WITH., # 946 mL, 11 Refills, Maintenance, 09/27/23 9:40:00 EST, [facility], 31, TWO TABLESPOONFULS BY MOUTH DAILY [...] 08/30/23 16:24:00 EDT, Route to Pharmacy Electronically, [facility], 175.2, cm, 08/02/23... Start Date: 08/30/23 Status: Ordered Milk of Magnesia 8% oral suspension 30 mL, By Mouth, Daily at bedtime, FOR CONSTIPATION QNDK=1443 MG., # 900 mL, 5 Refills, Maintenance, 10/05/23 12:52:00 EST, [facility], 175.2, cm, 08/02/23 10:30:00 EDT, Height Start Date: 10/05/23 Status: Ordered omeprazole 40 mg oral enteric coated capsule See Instructions, TAKE 1 CAPSULE BY MOUTH DAILY FOR GERD IN AM MAY OPEN CAPSULE, # 30 capsule, 5 Refills, Maintenance, 10/26/23 8:21:00 EST, [facility], 175.2, cm, 08/02/23 10:30:00 EDT, Height Start Date: 10/26/23 Status: Ordered polyethylene glycol 3350 oral powder for reconstitution See Instructions, MIX 17GM WITH 8 OUNCES OF WATER OR JUICE DAILY AND TAKE BY MOUTH AT 5PM FOR CONSTIPATION, # 510 Gm, 5 Refills, Maintenance, 10/26/23 9:47:00 EST, [facility], 30, MIX 17GM WITH 8 OUNCES OF WATER OR JUICE DAILY AND TAKE BY MOUTH A... Start Date: 10/26/23 Status: Ordered pravastatin 40 mg oral tablet 1 tablet, By Mouth, Daily, IN THE PM FOR HYPERLIPIDEMIA., # 30 tablet, 5 Refills, Maintenance, 11/09/23 7:50:00 EST, [facility], 175.2, cm, 08/02/23 10:30:00 EDT, Height Start Date: 11/09/23 Status: Ordered Profola oral tablet 1 tablet, By Mouth, Daily, # 30 tablet, 11 Refills, Maintenance, 06/24/23 10:40:00 EDT, [facility], Partial fill upon patient request if [...] 1 Refills, Maintenance, 05/11/22 14:45:00 EDT, Cream, [facility], Partial fill upon patient request if [...] Confirmed Active UI (urinary incontinence) Confirmed Active 88690; repeat 202015; repeat 2018 3egd 2011 barretts, repeat 2014 4egd 2010 positive barretts repeat 2011 5C2 6colonoscopy 2007 nl repeat 2016 7repeat 2024 [id number] Diagnosis Diagnosis Type Effective Dates Health Status Clini kia Service Informant Influenza Discharge Diagnosis 03/16/24 Cough Discharge Diagnosis 03/16/24 Vital Signs Most recent to oldest [Reference Range]: 1 Height 175.2 cm (03/16/24 10:40 AM) Weight 72.09 kg (03/16/24 10:40 AM) Oxygen Saturation [94-100 %] 97 % (03/16/24 10:40 AM) Pulse Rate [55-90 bpm] 112 bpm *H* (03/16/24 10:40 AM) Body Mass Index [18.5-24.99 kg/m2] 23.49 kg/m2 (03/16/24 10:40 AM) Blood Pressure [90-138/55-84 mm Hg] 122/ 68mm Hg (03/16/24 10:40 AM) Mode of Delivery (Oxygen) Room air (03/16/24 10:40 AM) Blood pressure sites Arm, right (03/16/24 10:40 AM) Weight Obtained Via Patient/family state d (03/16/24 10:40 AM) Social History Social History Type Response Smoking Status Never smoker entered on: 06/25/16 Sex Note * Simona Stockton: PERFORM Event Display: Patient Education/Instruction Authored Date: [id number] Ambulatory Adult Visit Summary [facility] [address] [place] [address] Name: JOHAN CRISOSTOMO : 1950?? Visit: 03/16/2024 10:34?? Ambulatory Visit Instructions ?? Your Care Team Primary Care Provider La MADISON, Brandon Chamorro? This Visit Provider Roe LUZ , Kaylah Cruz Vitals Signs Pulse Rate:??112 bpm??High Height: 175.2 cm Systolic Blood Pressure: 122 mm Hg Weight: 72.09 kg Diastolic Blood Pressure: 68 mm Hg Body Mass Index: 23.49 kg/m2 Oxygen Saturation: 97 % Body surface area: 1.87 Medications The list below reflects the information in our records and provided by you today along with any changes made during this visit. Please continue your medications until treatment is completed or stopped by your provider. If this is different from the information you have or there are other questions,please contact the prescribing provider. What How Much When Why Instructions Unchanged Acetaminophen (acetaminophen 325 mg oral tablet) 2 tab(s) Oral Every 6 hours as needed for NEEDED FOR FEVER>100.5 OR PAIN SHOWN BY FACIAL GRIMACE NOTIFY MD IF USED > Duration: 3 Days [id number]. ?? Unchanged Bacitracin Topical (bacitracin zinc 500 units/ g topical ointment) See instructions APPLY SMALL AMOUNT TOPICALLY TO SUPERFICIAL WOUNDS 4 TIMES A DAY NEEDED AN ANTIBACTERIAL / ??CALL MD IF USING FOR MORE THAN 7 DAYS ?? Unchanged Bisacodyl (bisacodyl 10 mg rectal suppository) See instructions INSERT 1 SUPPOSITORY INTO RECTUM 8PM ON 4TH DAY IF NO B.M. AFTER MILK OF MAG FOR CONSTIPATION ?? Unchanged Chlorhexidine Topical (chlorhexidine topical 0.12% liquid) 15 Milliliter Oral Twice a day RINSE 1/ 2 OZ FOR 30 SECONDS AFTER BREAKFAST & BEFORE BEDTIME/ EXPECTORATE ?? Unchanged Diazepam (diazepam 10 mg oral tablet) See instructions TAKE 1 TABLET BY MOUTH TWO HOURS PRIOR TO APPOINTMENT/ PROCEDURE (EYE AND PODIATRY ONLY) FOR ANXIETY ?? Unchanged Docusate (DOK 100 mg oral tablet) See instructions TAKE 1 TABLET BY MOUTH TWICE DAILY (AM AND PM) (STOOL SOFTENER EQUIVALENT) ?? Unchanged Durable Medical Equipment (BED RAILS) See instructions TO prevent falls ?? Unchanged Durable Medical Equipment (fit to pt) See instructions rigid cervical collar. Fit to pt. ?? Unchanged Emollients, Topical (Eucerin Plus Intensive Repair lotion) 1 applicator Topically Twice a day Dry skin dermatitis Any Eucerin in stock ?? Unchanged Famotidine (famotidine 20 mg oral tablet) See instructions TAKE 1 TABLET BY MOUTH TWICE DAILY FOR GERD GENERIC PEPCID ?? Unchanged Guaifenesin (guaiFENesin 100 mg/ 5 mL oral liquid) 10 Milliliter Oral 4 times a day as needed for NEEDED FOR COUGH/NOTIFY MD IF NO RELIEF AFTER 48 HRS / DOSE = GUAIFENESIN (TUSSIN MUCUS CONGEST 100MG/ 5ML) IC ROBAFEN. ?? Unchanged Hydrochlorothiazide (hydrochlorothiazide 25 mg oral tablet) See instructions TAKE 1 TAB BY MOUTH DAILY IN AM FOR HTN/ MONITOR BP/ SEE ANCILLARY ORDERS FOR PARAMETERS OF WHEN CLARA MD AND HOLD MED ?? Unchanged Hydrocortisone Topical (hydrocortisone 1% topical cream) See instructions APPLY TO EXTERNAL HEMMORRHOIDS TWICE DAILY PRN PER DR FREEMAN ?? Unchanged Ibuprofen (ibuprofen 400 mg oral tablet) 1 tab(s) Oral 3 times a day as needed for as needed for pain Unchanged Lactobacillus GG ([employer] [facility] oral capsule) See instructions TAKE 1 CAPSULE BY MOUTH DAILY IN AM FOR INTESTINAL HEALTH 1 CAP=15 BILLION CFU MAY OPEN CAPSULE ?? Unchanged Lactulose (lactulose 10 gm/ 15 ml oral syrup) 20 gram Oral Daily at Bedtime GIVE WITH. ?? Unchanged Lisinopril (lisinopril 20 mg oral tablet) See instructions TAKE 1 TABLET BY MOUTH DAILY IN THE AM FOR HTN / ??CALL MD IF SBP GREATER THAN 160 OR DBP GREATER THAN 100 OR SBP LESS THAN 90 OR DBP LESS THAN 50 ?? Unchanged Loratadine (loratadine 10 mg oral tablet) 1 tab(s) Oral Daily as needed for NEEDED FOR ALLERGY SYMPTOMS WATERY, ITCHY RED EYES, SNEEZING FOR ALLERGIC RHINITIS Unchanged Milk of Magnesia (Milk of Magnesia 8% oral suspension) 30 Milliliter Oral Daily at Bedtime FOR CONSTIPATION EIWT=9336 MG. ?? Unchanged Miscellaneous Rx (DOK 100 MG TAB 100 Tablet) See instructions TAKE 1 TABLET BY MOUTH TWICE DAILY (AM AND PM) (STOOL SOFTENER EQUIVALENT) ?? Unchanged Miscellaneous Rx (DOK 100 MG TAB 100 Tablet) See instructions TAKE 1 TABLET BY MOUTH TWICE DAILY (AM AND PM) (STOOL SOFTENER EQUIVALENT) ?? Unchanged Miscellaneous Rx (Eucerin cream) See instructions Apply to feet daily ?? Unchanged Miscellaneous Rx (HYDROCORTISONE 1% CREAM 1 Cream) See instructions APPLY A LIGHT APPLICATION TO EXTERNAL HEMORRHOIDS TWICE DAILY NEEDED FOR BLEEDING, SWELLING, ITCHING / ??NOTIFY MD IF NOT RESOLVED X 3 DAYS ?? Unchanged Miscellaneous Rx (HYDROCORTISONE 1% CREAM 1 Cream) See instructions APPLY A LIGHT APPLICATION TO EXTERNAL HEMORRHOIDS TWICE DAILY NEEDED, BLEEDING SWELLING, ITCHING/ ??NOTIFY MD IF NOT RESOLVED X 3 DAYS ?? Unchanged Miscellaneous Rx (TERBINAFINE 1% CREAM 1 Cream) See instructions APPLY TO AFFECTED AREA TWICE DAILY NEEDED FOR RASH ON FEET ?? Unchanged Miscellaneous Rx (thera multivitamin) See instructions po qd ?? Unchanged Multivitamin (Thera oral tablet) 1 tab(s) Oral Daily @ 9PM, VITAMIN SUPPLEMENT. ?? Unchanged Multivitamin With Minerals (Profola oral tablet) 1 tab(s) Oral Daily Duration: 30 Days Unchanged Omeprazole (omeprazole 40 mg oral enteric coated capsule) See instructions TAKE 1 CAPSULE BY MOUTH DAILY FOR GERD IN AM MAY OPEN CAPSULE ?? Unchanged Oxybutynin (Ditropan XL 10 mg oral tablet, extended release) 1 tab(s) Oral Daily Unchanged Polyethylene Glycol 3350 (polyethylene glycol 3350 oral powder for reconstitution) See instructions MIX 17GM WITH 8 OUNCES OF WATER OR JUICE DAILY AND TAKE BY MOUTH AT 5PM FOR CONSTIPATION ?? Unchanged Pravastatin (pravastatin 40 mg oral tablet) 1 tab(s) Oral Daily IN THE PM FOR HYPERLIPIDEMIA. ?? Unchanged Sodium Biphosphate-Sodium Phosphate (Disposable Enema 7 g-19 g rectal enema) See instructions ONE ENEMA PER RECTUM DAY 5 WITHOUT BOWEL MOVEMENT / ??IF NO RESULTS NOTIFY MD / ??FOR CONSTIPATION / ??IC FLEET ENEMA 7 GM - 19 GM ?? Unchanged Tamsulosin (Flomax 0.4 mg oral capsule) 1 capsule Oral Daily Unchanged Terbinafine Topical (terbinafine 1% topical cream) 1 shad Topically Twice a day Rash of both feet Duration: 14 Days Unchanged zoster vaccine, inactivated (Shingrix intramuscular injection) 0.5 Milliliter Intramuscular Once Medications and Immunizations Administered Medications Given During Visit No medications given during this visit.?? Allergies (NKA means No Known Allergies) Dust azithromycin ketolides macrolide antibiotics Common Emergency Awareness Tips IS IT A STROKE? Act FAST and Check for these signs: FACE Does the face look uneven? ARM Does one arm drift down? SPEECH Does their speech sound strange? TIME Call at any sign of stroke ?? Heart Attack Signs Chest discomfort: Most heart attacks involve discomfort in the center of the chest and lasts more than a few minutes, or goes away and comes back. It can feel like uncomfortable pressure, squeezing, fullness or pain. Discomfort in upper body: Symptoms can include pain or discomfort in one or both arms, back, neck, jaw or stomach. Shortness of breath: With or without discomfort. Other signs: Breaking out in a cold sweat, nausea, or lightheaded. Remember, MINUTES DO MATTER. If you experience any of these heart attack warning signs, call to get immediate medical attention! ?? Smoking can increase your chances of developing chronic health problems and can cause harmful effects to other family members in your house. If you smoke, you are strongly encouraged to quit. Please call [facility] [employer] [facility] at [phone] or [phone] ([phone]) or log in to [email or web address] for referrals to smoking cessation programs. ?? The National Suicide Prevention Hotline is available 23/05 if you or someone you know needs to find a reason to keep living. By calling 3-924-692-[employer] (1922) you'll be connected to a skilled, trained counselor at a crisis center in your area. [facility] [employer] [facility] You can view and manage your care through the patient portal or by using a health care shad of your choosing. [facility] is a website that allows you to securely view your medical information including your hospital discharge summary, office visit summaries, medications and follow-up visits. You can also request appointments, renew medications, and request access to your medical information using a health care shad of your choosing, or just ask a question. You can enroll at [email or web address] or register during your next office visit. [facility], in keeping with [facility] guidance, no longer requires face masks for staff, patientsor visitors in most situations. Similiar to time spent indoors at other locations, there is the chance that you were exposed to repiratory viruses during your time with us (such as flu or COVID-19). If you develop symptoms concerning for a viral respiratory infection, please seek testing (and treatment if indicated) from your medical provider or home test kit. ?? Disclaimer: The information provided is of a general nature and is intended to be used in conjunction with the recommendations and advice of your health care practitioner. Every effort has been made to ensure that the information provided is accurate and complete at the time it is provided to you however, as your needs change, or, as new information becomes available, different or additional instructions may be required. ?? If you have questions, please consult with your primary care provider or pharmacist, as appropriate. This information is not intended to serve as substitution for assessment and evaluation by a qualified health care provider. If you do not have a primary care provider, you may find a [facility] provider by calling [facility] at [phone]. Patient Care team information Care Team Personnel Name: Hannah Roque RN Position: [facility] RN Member Role: Primary Care Nurse Name: Reggie Godinez RN Position: [facility] RN Member Role: Primary Care Nurse Name: Christiane Cedillo RN Position: [facility] RN Member Role: Primary Care Nurse Name: Brandon Freeman MD Position: [facility] Physician - Primary Care Member Role: PCP Address: Address: [address] [place] [phone]- Name: Janeen Hoskins RN Position: [facility] ED RN W/OE and Tasks Member Role: Primary Care Nurse Name: Cydney Mckinney RN Position: [facility] SN RN Member Role: Primary Care Nurse Name: Frantz Mi III, RN Position: [facility] RN Member Role: Primary Care Nurse Name: Cate Martel NP Position: Reference Physician Member Role: Primary Care Nurse Address: Address: [address] [place] [phone]- Name: Massiel Lu RN Position: [facility] RN Member Role: Primary Care Nurse Name: Lurdes Mujica RN Position: [facility] RN Member Role: Primary Care Nurse Name: Barndie Horvath RN Position: [facility] Hospital Host/[employer]ess [employer] Member Role: Primary Care Nurse Name: Shyam VELAZQUEZ [place] Position: [facility] SN RN Member Role: Primary Care Nurse Care Team Related Persons Name: JOHAN PERKINS Name: DAWOOD DE LOS SANTOS Address: home [address] [place] [id number] Name: JENNIFER JUAREZ Address: home [address] [place] [address]
--- OUTSIDE RECORDS SUMMARY | 2024-04-26 07:28 | XMS_ITS | Continuity of Care Document ---
Author Organization [facility] Chace lt Address [address] [place] [address]- Care Team Providers Care Bsa Officer Name Role Phone La MADISON, Brandon Chamorro Primary Care Physician [facility] Date[facility]): 02[facility]24 - 03/02/24 [facility] Adult [address] [place] [address]- Allergies, Adverse Reactions, Alerts Substance Reaction Severity Status azithromycin Active macrolide antibiotics Active Dust Active ketolides Active Immunizations Given and Recorded Vaccine Date Status Refusal Reason pneumococcal 20-valent conjugate vaccine 08/02/23 Given Influenza Virus Vaccine (oldterm) 07/25/23 Recorde d Influenza Virus Vaccine (oldterm) 08/31/20 Recorde d Influenza Virus Vaccine (oldterm) 1 07/18/09 Given Influenza Virus Vaccine (oldterm) 2 09/02/07 Given [id number] 12y+ bivalent booster vax 07/22/22 Recorded tetanus-diphtheria [...] GIVEN 5Admin Note: [facility] 6Admin Note: [facility] VIS [id number] given 7Admin Note: given in clinic Medications acetaminophen 325 mg oral tablet 2, tablet, By Mouth, Every 6 hours, PRN, [id number]., # 60 tablet, Refills 0, Maintenance, NEEDED FOR FEVER>100.5 OR PAIN SHOWN BY FACIAL GRIMACE NOTIFY MD IF USED >, 09/13/23 10:09:00 EST, Route to Pharmacy Electronically, [facility], 175.2,... Start Date: 09/13/23 Stop Date: 09/16/23 Status: Ordered bacitracin zinc 500 units/g topical ointment See Instructions, APPLY SMALL AMOUNT TOPICALLY TO SUPERFICIAL WOUNDS 4 TIMES A DAY NEEDED AN ANTIBACTERIAL / CALL MD IF USING FOR MORE THAN 7 DAYS, # 28 Gm, 11 Refills, Maintenance, 11/09/22 15:57:00 EST, [facility], 7, APPLY SMALL AMOUNT T... Start [...] supp, 11 Refills, Maintenance, 12/23/23 8:21:00 EST, [facility], 175.2, cm, 08/02/23 10:30:00 EDT, Height [...] capsule, 11 Refills, Maintenance, 06/21/23 14:02:00 EDT, [facility], 30, TAKE 1 CAPSULE BY MOUTH [...] Stop 04/06/24 13:54:00 EDT, 04/05/23 13:54:00 EDT, [facility], 5, ONE... Start Date: 04/05/23 Stop Date: 04/06/24 Status: Ordered Ditropan XL 10 mg oral tablet, extended release 10, mg, 1, tablet, By Mouth, Daily, 0, 01/03/07 9:24:09, Print ANNE-MARIE Number, [id number], Constant Indicator Start Date: 01/03/07 Status: Ordered DOK 100 mg oral tablet See Instructions, TAKE 1 TABLET BY MOUTH TWICE DAILY (AM AND PM) (STOOL SOFTENER EQUIVALENT), # 60 tablet, 5 Refills, Maintenance, 02/02/23 15:38:00 EDT, [facility], 175.2, cm, 02/01/23 15:11:00EDT, Height Start [...] Instructions Replace Required Details, Route toPharmacy Electronically, [facility], 175.2, cm... Start Date: 04/09/20 Status: Ordered fit to pt fit to pt, See Instructions, # 1 units, Refills 0, Tot. Refills 0, Maintenance, rigid cervical collar. Fit to pt., 06/21/18 15:59:47 EDT, Compound Start Date: 06/21/18 Status: Ordered Flomax 0.4 mg oral capsule 0.4, mg, 1, capsule, By Mouth, Daily, 0, 0, 01/03/07 9:24:42, Print ANNE-MARIE Number, [id number], Constant Indicator Start Date: 01/03/07 Status: Ordered [...] Gm, 11 Refills, Maintenance, 12/11/19 11:11:00 EST, [facility], APPLY TO EXTERNAL HEMMORRHOIDS TWICE DAILY PRN PER DR FREEMAN, 175.2, cm, 10/12/19 8:18:00 EST, Height,... Start Date: 12/11/19 Status: Ordered ibuprofen 400 mg oral tablet 400 mg, 1, tablet, By Mouth, 3 times a day, PRN, # 30 tablet, Refills 1, Tot. Refills 1, Maintenance, as needed for pain, 12/25/18 11:23:03 EST, Route to Pharmacy Electronically, [id number], [facility] Start Date: 12/25/18 Status: Ordered lactulose 10 gm/15 ml oral syrup = 20 Gm, By Mouth, Daily at bedtime, GIVE WITH., # 946 mL, 11 Refills, Maintenance, 09/27/23 9:40:00 EST, [facility], 31, TWO TABLESPOONFULS BY MOUTH DAILY [...] 03/08/23 11:54:00 EDT, Route to Pharmacy Electronically, [facility], Partial fill u... Start Date: 03/08/23 Stop Date: 03/08/24 Status: Ordered loratadine 10 mg oral tablet 1, tablet, By Mouth, Daily, PRN, # 30 tablet, Refills 11, Maintenance, NEEDED FOR ALLERGY SYMPTOMS WATERY, ITCHY RED EYES, SNEEZING FOR ALLERGIC RHINITIS, 08/30/23 16:24:00 EDT, Route to Pharmacy Electronically, [facility], 175.2, cm, 08/02/23... Start Date: 08/30/23 Status: Ordered Milk of Magnesia 8% oral suspension 30 mL, By Mouth, Daily at bedtime, FOR CONSTIPATION ZPGF=7115 MG., # 900 mL, 5 Refills, Maintenance, 10/05/23 12:52:00 EST, [facility], 175.2, cm, 08/02/23 10:30:00 EDT, Height Start Date: 10/05/23 Status: Ordered omeprazole 40 mg oral enteric coated capsule See Instructions, TAKE 1 CAPSULE BY MOUTH DAILY FOR GERD IN AM MAY OPEN CAPSULE, # 30 capsule, 5 Refills, Maintenance, 10/26/23 8:21:00 EST, [facility], 175.2, cm, 08/02/23 10:30:00 EDT, Height Start Date: 10/26/23 Status: Ordered polyethylene glycol 3350 oral powder for reconstitution See Instructions, MIX 17GM WITH 8 OUNCES OF WATER OR JUICE DAILY AND TAKE BY MOUTH AT 5PM FOR CONSTIPATION, # 510 Gm, 5 Refills, Maintenance, 10/26/23 9:47:00 EST, [facility], 30, MIX 17GM WITH 8 OUNCES OF WATER OR JUICE DAILY AND TAKE BY MOUTH A... Start Date: 10/26/23 Status: Ordered pravastatin 40 mg oral tablet 1 tablet, By Mouth, Daily, IN THE PM FOR HYPERLIPIDEMIA., # 30 tablet, 5 Refills, Maintenance, 11/09/23 7:50:00 EST, [facility], 175.2, cm, 08/02/23 10:30:00 EDT, Height Start Date: 11/09/23 Status: Ordered Profola oral tablet 1 tablet, By Mouth, Daily, # 30 tablet, 11 Refills, Maintenance, 06/24/23 10:40:00 EDT, [facility], Partial fill upon patient request if [...] 1 Refills, Maintenance, 05/11/22 14:45:00 EDT, Cream, [facility], Partial fill upon patient request if [...] Confirmed Active UI (urinary incontinence) Confirmed Active 21228; repeat 2020 63605; repeat 2018 3egd 2011 barretts, repeat 2014 4egd 2010 positive barretts repeat 2011 5C2 6colonoscopy 2007 nl repeat 2016 7repeat 2024 58839 Social History Social History Type Response Smoking Status Never smoker entered on: 06/25/16 Sex Patient Care team information Care Team Personnel Name: Hannah Roque RN Position: [facility] RN Member Role: Primary Care Nurse Name: Reggie Godinez RN Position: [facility] RN Member Role: Primary Care Nurse Name: Christiane Cedillo RN Position: [facility] RN Member Role: Primary Care Nurse Name: Brandon Freeman MD Position: [facility] Physician - Primary Care Member Role: PCP Address: Address: [address] [place] [phone]- [place] Name: Janeen Hoskins RN Position: [facility] ED RN W/OE and Tasks Member Role: Primary Care Nurse Name: Cydney Mckinney RN Position: [facility] SN RN Member Role: Primary Care Nurse Name: Frantz Mi III, RN Position: [facility] RN Member Role: Primary Care Nurse Name: Cate Martel NP Position: Reference Physician Member Role: Primary Care Nurse Address: Address: [address] [place] [phone]- Name: Massiel Lu RN Position: [facility] RN Member Role: Primary Care Nurse Name: Lurdes Mujica RN Position: [facility] RN Member Role: Primary Care Nurse Name: Brandie Horvath RN Position: [facility] Hospital Telephone Claims Representative Member Role: Primary Care Nurse Name: Claribel Howe RN Position: [facility] SN RN Member Role: Primary Care Nurse Care Team Related Persons Name: JOHAN PERKINS Name: DAWOOD DE LOS SANTOS Address: home [address] [place] [id number] Name: JENNIFER JUAREZ Address: home [address] [place] [address]
--- OUTSIDE RECORDS SUMMARY | 2024-04-26 07:28 | XMS_ITS | Continuity of Care Document ---
Author Organization [facility] Chace lt Address [address] [place] [address]- Care Team Providers Care Cryptologic Technician Operator/Analyst Name Role Phone Brandon Freeman MD Primary Care Physician [facility]): 03[facility]24 - 04/04/24 [facility] Adult [address] [place] [address]- Allergies, Adverse Reactions, Alerts Substance Reaction Severity Status azithromycin Active macrolide antibiotics Active Dust Active ketolides Active Immunizations Given and Recorded Vaccine Date Status Refusal Reason RSV vaccine, preF A-preF B, recombinant 11/01/23 R ecorded SARS-CoV-2(COVID-19)mRNA-LNP vac([id number]) 11/01/23 Recorded pneumococcal 20-valent conjugate vaccine 08/02/23 [...] virus vaccine, inactivated 4 07/20/12 Gi stacie [id number] 12y+ bivalent booster vax 07/22/22 Recorded tetanus-diphtheria [...] GIVEN 5Admin Note: [facility] 6Admin Note: [employer] [facility] VIS [id number] given 7Admin Note: given in clinic Medications acetaminophen 325 mg oral tablet 2, tablet, By Mouth, Every 6 hours, PRN, [id number]., # 60 tablet, Refills 0, Maintenance, NEEDED FOR FEVER>100.5 OR PAIN SHOWN BY FACIAL GRIMACE NOTIFY MD IF USED >, 09/13/23 10:09:00 EST, Route to Pharmacy Electronically, [facility], 175.2,... Start Date: 09/13/23 Stop Date: 09/16/23 Status: Ordered bacitracin zinc 500 units/g topical ointment See Instructions, APPLY SMALL AMOUNT TOPICALLY TO SUPERFICIAL WOUNDS 4 TIMES A DAY NEEDED AN ANTIBACTERIAL / CALL MD IF USING FOR MORE THAN 7 DAYS, # 28 Gm, 11 Refills, Maintenance, 11/09/22 15:57:00 EST, [facility], 7, APPLY SMALL AMOUNT T... Start [...] supp, 11 Refills, Maintenance, 12/23/23 8:21:00 EST, [facility], 175.2, cm, 08/02/23 10:30:00 EDT, Height [...] capsule, 11 Refills, Maintenance, 06/21/23 14:02:00 EDT, [facility], 30, TAKE 1 CAPSULE BY MOUTH [...] Stop 04/06/24 13:54:00 EDT, 04/05/23 13:54:00 EDT, [facility], 5, ONE... Start Date: 04/05/23 Stop Date: 04/06/24 Status: Ordered Ditropan XL 10 mg oral tablet, extended release 10, mg, 1, tablet, By Mouth, Daily, 0, 01/03/07 9:24:09, Print ANNE-MARIE Number, [id number], Constant Indicator Start Date: 01/03/07 Status: Ordered DOK 100 mg oral tablet See Instructions, TAKE 1 TABLET BY MOUTH TWICE DAILY (AM AND PM) (STOOL SOFTENER EQUIVALENT), # 60 tablet, 5 Refills, Maintenance, 02/02/23 15:38:00 EDT, [facility], 175.2, cm, 02/01/23 15:11:00EDT, Height Start [...] Instructions Replace Required Details, Route toPharmacy Electronically, [facility], 175.2, cm... Start Date: 04/09/20 Status: Ordered fit to pt fit to pt, See Instructions, # 1 units, Refills 0, Tot. Refills 0, Maintenance, rigid cervical collar. Fit to pt., 06/21/18 15:59:47 EDT, Compound Start Date: 06/21/18 Status: Ordered Flomax 0.4 mg oral capsule 0.4, mg, 1, capsule, By Mouth, Daily, 0, 0, 01/03/07 9:24:42, Print ANNE-MARIE Number, [id number], Constant Indicator Start Date: 01/03/07 Status: Ordered guaiFENesin 100 mg/5 mL oral liquid 10 mL, By Mouth, 4 times a day, PRN NEEDED FOR COUGH/NOTIFY MD IF NO RELIEF AFTER 48 HRS / DOSE =, GUAIFENESIN (TUSSIN MUCUS CONGEST 100MG/5ML) IC ROBAFEN., # 240 mL, 4 Refills, Maintenance, 07/12/23 14:12:00 EDT, [facility], 175.2, cm, 05/13/... Start Date: 07/12/23 [...] Gm, 11 Refills, Maintenance, 12/11/19 11:11:00 EST, [facility], APPLY TO EXTERNAL HEMMORRHOIDS TWICE DAILY PRN PER DR FREEMAN, 175.2, cm, 10/12/19 8:18:00 EST, Height,... Start Date: 12/11/19 Status: Ordered ibuprofen 400 mg oral tablet 400 mg, 1, tablet, By Mouth, 3 times a day, PRN, # 30 tablet, Refills 1, Tot. Refills 1, Maintenance, as needed for pain, 12/25/18 11:23:03 EST, Route to Pharmacy Electronically, [id number], [facility] Start Date: 12/25/18 Status: Ordered lactulose 10 gm/15 ml oral syrup = 20 Gm, By Mouth, Daily at bedtime, GIVE WITH., # 946 mL, 11 Refills, Maintenance, 09/27/23 9:40:00 EST, [facility], 31, TWO TABLESPOONFULS BY MOUTH DAILY [...] 08/30/23 16:24:00 EDT, Route to Pharmacy Electronically, [facility], 175.2, cm, 08/02/23... Start Date: 08/30/23 Status: Ordered Milk of Magnesia 8% oral suspension See Instructions, 30 ML BY MOUTH DAILY AT BEDTIME FOR CONSTIPATION KRHF=4956 MG, # 900 mL, 5 Refills, Maintenance, 04/04/24 16:04:00 EDT, [facility], 175.2, cm, 03/16/24 10:40:00 EDT, Height Start Date: 04/04/24 Status: Ordered omeprazole 40 mg oral enteric coated capsule See Instructions, TAKE 1 CAPSULE BY MOUTH DAILY FOR GERD IN AM MAY OPEN CAPSULE, # 30 capsule, 5 Refills, Maintenance, 10/26/23 8:21:00 EST, [facility], 175.2, cm, 08/02/23 10:30:00 EDT, Height Start Date: 10/26/23 Status: Ordered polyethylene glycol 3350 oral powder for reconstitution See Instructions, MIX 17GM WITH 8 OUNCES OF WATER OR JUICE DAILY AND TAKE BY MOUTH AT 5PM FOR CONSTIPATION, # 510 Gm, 5 Refills, Maintenance, 10/26/23 9:47:00 EST, [facility], 30, MIX 17GM WITH 8 OUNCES OF WATER OR JUICE DAILY AND TAKE BY MOUTH A... Start Date: 10/26/23 Status: Ordered pravastatin 40 mg oral tablet 1 tablet, By Mouth, Daily, IN THE PM FOR HYPERLIPIDEMIA., # 30 tablet, 5 Refills, Maintenance, 11/09/23 7:50:00 EST, [facility], 175.2, cm, 08/02/23 10:30:00 EDT, Height Start Date: 11/09/23 Status: Ordered Profola oral tablet 1 tablet, By Mouth, Daily, # 30 tablet, 11 Refills, Maintenance, 06/24/23 10:40:00 EDT, [facility], Partial fill upon patient request if [...] 1 Refills, Maintenance, 05/11/22 14:45:00 EDT, Cream, [facility], Partial fill upon patient request if [...] tablet, 5 Refills, Maintenance, 04/04/23 21:00:00 EDT, [facility], 30, TAKE 1 TABLET BY MOUTH [...] Confirmed Active UI (urinary incontinence) Confirmed Active 01586; repeat 202015; repeat 2017 3egd 2011 barretts, repeat 2014 4egd 2010 positive barretts repeat 2011 5C2 6colonoscopy 2006 nl repeat 2016 7repeat 2024 81846 Social History Social History Type Response Smoking Status Never smoker entered on: 06/25/16 Sex Note * Latoya Sepulveda RN: PERFORM, SIGN, VERIFY [place], Brandon Chamorro: SIGN Event Display: Case Management Discharge Plan Authored Date: Patient: JOHAN CRISOSTOMO Age: 73 years Sex: Male : 1950 Associated Diagnoses: None Author: Latoya Sepulveda RN Care Management Discharge Call Note Admit date 02/26/2024 Discharge date 03/02/2024 Date of contact 03/06/2024 Diagnosis Flu PNA If patient went for emergency services was this patient referred? Referred by jail staff [facility] [place] Notes in cis Discharge instructions were reviewed with the patient? Yes Medication reconciliation performed Yes Looks like you were recently discharged from the hospital (ED), how are you feeling? Spoke with Maribell and T[facility] at [facility] who report that pt is doing well, has been taking Rx abx and does have some lingering cough, but overal his sx have impoved since d/c from the hospital. Please tell me the problem or condition that brought you to the hospital (ED)? weakness, fever Do you know what to do in case of an emergency? yes Were you given any prescriptions to fill? Yes. Do you understand how to take your medication? Yes Other diagnostic tests/procedures ordered/recommended? N/A Do you have an appointment already scheduled with your PCP? Yes Is date appropriate: Yes. Are you able to get to that appointment: Yes. Appointment scheduled? Date 03/16/2024 Home Care Services requested? No Have there been any changes in your condition since discharge? No Do you have someone at home that is able to help you? Yes Is there anything else that you need addressed before your follow up appointment? No Patient Care team information Care Team Personnel Name: Hannah Roque RN Position: [facility] RN Member Role: Primary Care Nurse Name: Reggie Godinez RN Position: [facility] RN Member Role: Primary Care Nurse Name: Christiane Cedillo RN Position: [facility] RN Member Role: Primary Care Nurse Name: Brandon Freeman MD Position: [facility] Physician - Primary Care Member Role: PCP Address: Address: [address] [place] [phone]- [place] Name: Janeen Hoskins RN Position: [facility] ED RN W/OE and Tasks Member Role: Primary Care Nurse Name: Cydney Mckinney RN Position: [facility] SN RN Member Role: Primary Care Nurse Name: Frantz Mi III, RN Position: [facility] RN Member Role: Primary Care Nurse Name: aCte Martel NP Position: Reference Physician Member Role: Primary Care Nurse Address: Address: [address] [place] [phone]- Name: Massiel Lu RN Position: [facility] RN Member Role: Primary Care Nurse Name: Lurdes Mujica RN Position: [facility] RN Member Role: Primary Care Nurse Name: Brandie Horvath RN Position: [facility] Hospital Senior Risk Manager Member Role: Primary Care Nurse Name: Claribel Howe RN Position: [facility] SN RN Member Role: Primary Care Nurse Care Team Related Persons Name: JOHAN PERKINS Name: DAWOOD DE LOS SANTOS Address: home [address] [place] [phone] Name: JENNIFER JUAREZ Address: home [address] [place] [address]
--- OUTSIDE RECORDS SUMMARY | 2024-04-26 07:28 | XMS_ITS | Continuity of Care Document ---
Author Organization [facility] Chace lt Address [address] [place] [address]- Care Team Providers Care Autotransfusionist Name Role Phone Brandon Freeman MD Primary Care Physician Encounter [facility] Date(s): 03/05/24 - 04/04/24 [facility] Adult [address] [place] [address]- Allergies, Adverse Reactions, Alerts Substance Reaction Severity Status azithromycin Active macrolide antibiotics Active Dust Active ketolides Active Immunizations Given and Recorded Vaccine Date Status Refusal Reason RSV vaccine, preF A-preF B, recombinant 11/01/23 R ecorded SARS-CoV-2(COVID-19)mRNA-LNP vac([id number]) 11/01/23 Recorded pneumococcal 20-valent conjugate vaccine 08/02/23 [...] virus vaccine, inactivated 4 07/20/12 Gi stacie [id number] 12y+ bivalent booster vax 07/22/22 Recorded tetanus-diphtheria [...] GIVEN 5Admin Note: FLU CLINIC 6Admin Note: 7 Cups of [facility] VIS [id number] given 7Admin Note: given in clinic Medications acetaminophen 325 mg oral tablet 2, tablet, By Mouth, Every 6 hours, PRN, [id number]., # 60 tablet, Refills 0, Maintenance, NEEDED FOR FEVER>100.5 OR PAIN SHOWN BY FACIAL GRIMACE NOTIFY MD IF USED >, 09/13/23 10:09:00 EST, Route to Pharmacy Electronically, [facility], 175.2,... Start Date: 09/13/23 Stop Date: 09/16/23 Status: Ordered bacitracin zinc 500 units/g topical ointment See Instructions, APPLY SMALL AMOUNT TOPICALLY TO SUPERFICIAL WOUNDS 4 TIMES A DAY NEEDED AN ANTIBACTERIAL / CALL MD IF USING FOR MORE THAN 7 DAYS, # 28 Gm, 11 Refills, Maintenance, 11/09/22 15:57:00 EST, [facility], 7, APPLY SMALL AMOUNT T... Start [...] supp, 11 Refills, Maintenance, 12/23/23 8:21:00 EST, [facility], 175.2, cm, 08/02/23 10:30:00 EDT, Height [...] capsule, 11 Refills, Maintenance, 06/21/23 14:02:00 EDT, [facility], 30, TAKE 1 CAPSULE BY MOUTH [...] Daily, 0, 01/03/07 9:24:09, Print ANNE-MARIE Number, [id number], Constant Indicator Start Date: 01/03/07 Status: Ordered DOK 100 mg oral tablet See Instructions, TAKE 1 TABLET BY MOUTH TWICE DAILY (AM AND PM) (STOOL SOFTENER EQUIVALENT), # 60 tablet, 5 Refills, Maintenance, 02/02/23 15:38:00 EDT, [facility], 175.2, cm, 02/01/23 15:11:00EDT, Height Start [...] Instructions Replace Required Details, Route toPharmacy Electronically, [facility], 175.2, cm... Start Date: 04/09/20 Status: Ordered fit to pt fit to pt, See Instructions, # 1 units, Refills 0, Tot. Refills 0, Maintenance, rigid cervical collar. Fit to pt., 06/21/18 15:59:47 EDT, Compound Start Date: 06/21/18 Status: Ordered Flomax 0.4 mg oral capsule 0.4, mg, 1, capsule, By Mouth, Daily, 0, 0, 01/03/07 9:24:42, Print ANNE-MARIE Number, [id number], Constant Indicator Start Date: 01/03/07 Status: Ordered guaiFENesin 100 mg/5 mL oral liquid 10 mL, By Mouth, 4 times a day, PRN NEEDED FOR COUGH/NOTIFY MD IF NO RELIEF AFTER 48 HRS / DOSE =, GUAIFENESIN (TUSSIN MUCUS CONGEST 100MG/5ML) IC ROBAFEN., # 240 mL, 4 Refills, Maintenance, 07/12/23 14:12:00 EDT, [facility], 175.2, cm, 05/13/... Start Date: 07/12/23 [...] Gm, 11 Refills, Maintenance, 12/11/19 11:11:00 EST, [facility], APPLY TO EXTERNAL HEMMORRHOIDS TWICE DAILY PRN PER DR FREEMAN, 175.2, cm, 10/12/19 8:18:00 EST, Height,... Start Date: 12/11/19 Status: Ordered ibuprofen 400 mg oral tablet 400 mg, 1, tablet, By Mouth, 3 times a day, PRN, # 30 tablet, Refills 1, Tot. Refills 1, Maintenance, as needed for pain, 12/25/18 11:23:03 EST, Route to Pharmacy Electronically, [id number], [facility] Start Date: 12/25/18 Status: Ordered lactulose 10 gm/15 ml oral syrup = 20 Gm, By Mouth, Daily at bedtime, GIVE WITH., # 946 mL, 11 Refills, Maintenance, 09/27/23 9:40:00 EST, [facility], 31, TWO TABLESPOONFULS BY MOUTH DAILY [...] 08/30/23 16:24:00 EDT, Route to Pharmacy Electronically, [facility], 175.2, cm, 08/02/23... Start Date: 08/30/23 Status: Ordered Milk of Magnesia 8% oral suspension See Instructions, 30 ML BY MOUTH DAILY AT BEDTIME FOR CONSTIPATION TEIX=4049 MG, # 900 mL, 5 Refills, Maintenance, 04/04/24 16:04:00 EDT, [facility], 175.2, cm, 03/16/24 10:40:00 EDT, Height Start Date: 04/04/24 Status: Ordered omeprazole 40 mg oral enteric coated capsule See Instructions, TAKE 1 CAPSULE BY MOUTH DAILY FOR GERD IN AM MAY OPEN CAPSULE, # 30 capsule, 5 Refills, Maintenance, 10/26/23 8:21:00 EST, [facility], 175.2, cm, 08/02/23 10:30:00 EDT, Height Start Date: 10/26/23 Status: Ordered polyethylene glycol 3350 oral powder for reconstitution See Instructions, MIX 17GM WITH 8 OUNCES OF WATER OR JUICE DAILY AND TAKE BY MOUTH AT 5PM FOR CONSTIPATION, # 510 Gm, 5 Refills, Maintenance, 10/26/23 9:47:00 EST, [facility], 30, MIX 17GM WITH 8 OUNCES OF WATER OR JUICE DAILY AND TAKE BY MOUTH A... Start Date: 10/26/23 Status: Ordered pravastatin 40 mg oral tablet 1 tablet, By Mouth, Daily, IN THE PM FOR HYPERLIPIDEMIA., # 30 tablet, 5 Refills, Maintenance, 11/09/23 7:50:00 EST, [facility], 175.2, cm, 08/02/23 10:30:00 EDT, Height Start Date: 11/09/23 Status: Ordered Profola oral tablet 1 tablet, By Mouth, Daily, # 30 tablet, 11 Refills, Maintenance, 06/24/23 10:40:00 EDT, [facility], Partial fill upon patient request if [...] 1 Refills, Maintenance, 05/11/22 14:45:00 EDT, Cream, [facility], Partial fill upon patient request if [...] tablet, 5 Refills, Maintenance, 04/04/23 21:00:00 EDT, [facility], 30, TAKE 1 TABLET BY MOUTH [...] Confirmed Active UI (urinary incontinence) Confirmed Active 26743; repeat 2020 13195; repeat 2018 3egd 2012 barretts, repeat 2014 4egd 2010 positive barretts repeat 2012 5C2 6colonoscopy 2007 nl repeat 2016 7repeat 2024 14223 Social History Social History Type Response Smoking Status Never smoker entered on: 06/25/16 Sex Patient Care team information Care Team Personnel Name: Hannah Roque RN Position: [facility] RN Member Role: Primary Care Nurse Name: Reggie Godinez RN Position: [facility] RN Member Role: Primary Care Nurse Name: Christiane Cedillo RN Position: [facility] RN Member Role: Primary Care Nurse Name: Brandon Freeman MD Position: [facility] Physician - Primary Care Member Role: PCP Address: Address: [address] [place] [id number]- Name: Janeen Hoskins RN Position: [facility] ED RN W/OE and Tasks Member Role: Primary Care Nurse Name: Cydney Mckinney RN Position: [facility] SN RN Member Role: Primary Care Nurse Name: Frantz Mi III, RN Position: [facility] RN Member Role: Primary Care Nurse Name: Cate Martel NP Position: Reference Physician Member Role: Primary Care Nurse Address: Address: [address] [place] [id number]- [place] Name: Massiel Lu RN Position: [facility] RN Member Role: Primary Care Nurse Name: Lurdes Mujica RN Position: [facility] RN Member Role: Primary Care Nurse Name: Brandie Horvath RN Position: [facility] Hospital Test Deskman Member Role: Primary Care Nurse Name: Claribel Howe RN Position: [facility] SN RN Member Role: Primary Care Nurse Care Team Related Persons Name: JOHAN PERKINS Name: DAWOOD DE LOS SANTOS Address: home [address] [place] [id number] Name: JENNIFER JUAREZ Address: home [address] [place] [address]
--- NOTE | 2024-04-26 07:56 | P.PNIM_ITS ---
Subjective Subjective Date of Service: 04/26/24 Interval History: f/u on acute nausea and vomitting concern for gastric outlet obstruction no issues overnight, NPO d/t aspiration, for Mofidied BS today Physical Exam 2 Vital Signs: Vital Signs: Last Vital Signs Temp 97.8 F 04/26/24 07:13 Pulse 95 04/26/24 07:13 Resp 18 04/26/24 07:13 BP 133/74 04/26/24 07:13 Pulse Ox 95 04/26/24 07:13 O2 Del Method Room Air 04/26/24 07:13 O2 Flow Rate 3 04/24/24 15:05 BMI result Body Mass Index 25.0 General: awake, alert, no distress, deaf Resp: CTA bilateral CVS: S1,S2,RRR GI: +BS, NT, no distention Skin: No rash Neuro: motor grossly intact Psych: appropriate affect Objective Data Active Medications Acetaminophen (Acetaminophen 325 Mg Tablet) 650 mg PO Q6H PRN PRN Reason: Fever Or Pain Bacitracin (Bacitracin Oint 14 Gm Tube) 1 appl TOPICAL QID PRN PRN Reason: Wound Care Bisacodyl (Bisacodyl 10 Mg Supp.Rect) 10 mg [place] DAILY@2000 PRN PRN Reason: constiaption Clotrimazole (Clotrimazole 1 % Cream 15 Gm Tube) 1 appl TOPICAL BID PRN PRN Reason: Rash Diazepam (Diazepam 5 Mg Tablet) 10 mg PO ONCE PRN PRN Reason: eye appointment Docusate Sodium (Docusate Sodium 100 Mg Capsule) 100 mg PO BID [facility] Last Admin: 04/25/24 20:32 Dose: Not Given Documented By: FARZAD Non-Admin Reason: NPO Finasteride (Finasteride 5 Mg Tablet) 5 mg PO BEDTIME [facility] Last Admin: 04/25/24 20:33 Dose: Not Given Documented By: FARZAD Non-Admin Reason: NPO Guaifenesin (Guaifenesin 200 Mg/10 Ml 10 Ml Liquid) 10 ml PO Q4H PRN PRN Reason: Cough Last Admin: 04/25/24 00:43 Dose: 10 ml Documented By: ALEX Guaifenesin (Guaifenesin 100 Mg/5 Ml Liquid) 5 ml PO Q6H PRN PRN Reason: cough/cold Heparin Sodium (Porcine) (Heparin Sodium,Porcine 5,000 Unit/Ml Vial) 5,000 unit SUBCUT Q12H [facility] Last Admin: 04/25/24 20:38 Dose: 5,000 unit Documented By: FARZAD Hydralazine HCl (Hydralazine Hcl 20 Mg/Ml Vial) 10 mg IVPUSH Q6H PRN; Protocol PRN Reason: SBP > 160 Hydrochlorothiazide (Hydrochlorothiazide 25 Mg Tablet) 25 mg PO DAILY@0800 [facility]; Protocol Last Admin: 04/25/24 08:52 Dose: 25 mg Documented By: BRUCE Hydrocortisone (Hydrocortisone 1 % Cream 28.35 Gm Tube) 1 appl TOPICAL BID PRN; Protocol PRN Reason: Hemorrhoids Dextrose/Lactated Ringer's (D5lr) 1,000 mls @ 125 mls/hr IVCONT .Q8H [facility] Last Admin: 04/26/24 06:38 Dose: 125 mls/hr Documented By: FARZAD Lactulose (Lactulose 20 Gm/30 Ml Solution) 20 gm PO BEDTIME [facility] Last Admin: 04/25/24 20:33 Dose: Not Given Documented By: FARZAD Non-Admin Reason: NPO Lisinopril (Lisinopril 20 Mg Tablet) 20 mg PO DAILY [facility]; Protocol Last Admin: 04/25/24 08:49 Dose: 20 mg Documented By: BRUCE Loratadine (Loratadine 10 Mg Tablet) 10 mg PO DAILY PRN PRN Reason: Allergy Symptoms Lorazepam (Lorazepam 2 Mg/Ml Vial) 1 mg IVPUSH Q4H PRN PRN Reason: Anxiety Last Admin: 04/24/24 01:32 Dose: 1 mg Documented By: ALEX Magnesium Hydroxide (Milk Of Magnesia 30 Ml Oral.Susp) 30 ml PO BEDTIME [facility] Last Admin: 04/25/24 20:33 Dose: Not Given Documented By: FARZAD Non-Admin Reason: NPO Multivitamins/Vitamin C (Multivitamin Tablet) 1 tab PO BEDTIME [facility] Last Admin: 04/25/24 20:33 Dose: Not Given Documented By: FARZAD Non-Admin Reason: NPO Omeprazole (Omeprazole 40 Mg Capsule.Dr) 40 mg PO DAILY@0630 [facility] Last Admin: 04/26/24 06:39 Dose: Not Given Documented By: FARZAD Non-Admin Reason: NPO Ondansetron HCl (Ondansetron Hcl 4 Mg/2 Ml Vial) 4 mg IVPUSH Q6H [facility] Last Admin: 04/26/24 03:00 Dose: 4 mg Documented By: FARZAD Polyethylene Glycol (Polyethylene Glycol 3350 17 Gm Powd.Pack) 17 gm PO DAILY@1700 [facility] Last Admin: 04/25/24 16:30 Dose: Not Given Documented By: BRUCE Non-Admin Reason: strict NPO Pravastatin Sodium (Pravastatin Sodium 40 Mg Tablet) 40 mg PO BEDTIME [facility] Last Admin: 04/25/24 20:33 Dose: Not Given Documented By: FARZAD Non-Admin Reason: NPO Sodium Biphosphate/Sodium Phosphate (Sodium Phosphate,Crowley-Dibasic 133 Ml Enema) 133 ml KY ONCE PRN PRN Reason: Constipation Sodium Biphosphate/Sodium Phosphate (Sodium Phosphate,[place]ley-Dibasic 133 Ml Enema) 118 ml [place] DAILY PRN PRN Reason: Constipation Sodium Chloride (0.9 % Sodium Chloride Flush 3 Ml Syringe) 3 ml IVFLUSH QSHIFT [facility] Last Admin: 04/26/24 07:14 Dose: Not Given Documented By: CHRISTOPHE Non-Admin Reason: IV Running Tamsulosin HCl (Tamsulosin Hcl 0.4 Mg Capsule) 0.8 mg PO BEDTIME [facility] Last Admin: 04/25/24 20:34 Dose: Not Given Documented By: FARZAD Non-Admin Reason: NPO Labs 04/23/24 09:44 04/24/24 16:05 Assessment and Plan (1) Constipation: Status: Acute (2) Partial gastric outlet obstruction: Status: Acute (3) Incomplete bladder emptying: Status: Acute Plan 73yo deaf M with GERD, Bustamante's esophagus, BPH, HLD, HTN, chronic constipation, hx DVT no longer on AC, glaucoma, hx aspiration who presented vomitting abdominal distention and concern of gastric outlet obstruction on cT ? Gastric outlet obstruction (GOO) on CT--may have resolved with NGT.. EGD 04/[address] Lockhart no GOO, +hiatal hernia. NGT removed and started on clear liquid but coughing with food meds, and thickened liquid. NPO and MBS today BPH. finasteride and Flomax GERD + Barrette syndrome. PPI IV, change to PO when eating Hyperlipidemia. Statin, hold w/ NPO HTN- hold Lisiniopril and HCTZ, hold while NPO, BP wnl Constipation. Continue stool softeners, MiraLax, lactulose and milk of magnesia when able. Enema as needed for now. Anxiety. Ativan 1 mg IV as needed. VT prophylaxis: Heparin subcut Code status: Full Need for inpatient: bowel obstruction has NGT, NPO, getting IV and need for intervention Quality Stroke Does the patient have a stroke diagnosis?: No VTE Prior VTE?: No VTE Risk Level:: Medical - moderate - high VTE Device Contraindication: Treatment Not Indicated VTE Drug Contraindication: N/A - Med Ordered
[2024-04-26 08:22] LABS: Hematocrit 38.1 % (42.0-52.0); Hemoglobin 12.4 g/dl (14.0-18.0); Mean Corpuscular HGB Conc 32.5 g/dl (31.0-36.0); Mean Corpuscular Hemoglobin 30.2 pg (27.0-33.0); Mean Corpuscular Volume 92.7 fL (80.0-98.0); Mean Platelet Volume 12.3 fL (9.4-12.4); Platelet Count 169 X10*3/uL (160-400); Red Blood Count 4.11 X10*6/uL (4.60-5.80); Red Cell Distribution Width 14.6 % (11.0-16.0); White Blood Count 6.3 X10*3/uL (4.8-10.8)
[2024-04-26 08:38] LABS: Anion Gap 11 (12-20); Blood Urea Nitrogen 5 mg/dL (9-16); Calcium 8.7 mg/dL (8.4-10.2); Carbon Dioxide 26 mmol/L (22-29); Chloride 109 mmol/L (96-108); Creatinine Clr Calc Pharmacy 75.7; Estimated Glomerular Filt Rate > 60; Glucose Random 100 mg/dL (60-115); Potassium 3.5 mmol/L (3.3-5.1); Sodium 142 mmol/L (135-145)
--- NOTE | 2024-04-26 11:07 | MHC.CM.PN ---
PER MD, PT WILL LIKELY REMAIN OVER THE WEEKEND PLAN FOR MODIFIED BARRIUM EARLY NEXT WEEK CURRENT DC PLAN IS TO RETURN TO CORRECTION
[2024-04-26] MEDS: Heparin Sodium,Porcine 5,000 UNIT/ML VIAL 5000 UNIT SUBCUT (12:33)
[2024-04-26 12:59] VITALS: BP 101/60
[2024-04-26 13:03] VITALS: BP 101/65; PULSE 79; RESP 18; TEMP 36.2
--- NOTE | 2024-04-26 13:59 | MHC.SL.IMP ---
Date of Plan of Treatment: 04/26/24 Onset of Symptoms/Illness: 04/25/24 Date Treatment Started: 04/26/24 Admitting Diagnosis: Dysphagia Primary Speech & Language Diagnosis: R13.12 Oropharyngeal Phase Dysphagia Secondary Speech & Language Diagnosis: R41.841 Cognitive communication disorder Reason for Today's Visit: [id number] Modified Barium Swallow Study Comments: Pt nonverbal, pleasant and engaging w/ ARBORICULTURIST. Pre-evaluation Dietary Consistencies: NPO Pre-evaluation Liquid Consistency: NPO Pre-evaluation Medication Administration: NPO Medical History: Comments: Medical History HTN (hypertension) BPH (benign prostatic hyperplasia) Barretts syndrome GERD (gastroesophageal reflux disease) KIVALINA (hard of hearing) Non-verbal learning disorder Year of Onset or Diagnosis: 2015 Oral Motor Exam Facial Symmetry: Normal for Patient Symmetrical Mouth Occlusion: Normal Oral-Facial Teeth Characteristics: Intact/Normal Oral-Facial Teeth Miscellaneous Observation: Oral Expression Ability: Severe Impairment Is patient able to manage secretions?: Yes Is patient able to produce volitional cough?: No Food and Liquid Trials: Oral Impairment: Lip Closure: 2=Escape @ interlabial space/lat juncture; not beyond vermilion border Oral Impairment: Tongue Control During Bolus Hold: Did not test Oral Impairment: Bolus Preparation/Mastication: Did not test Oral Impairment: Bolus Transport/Lingual Motion: 0=Brisk tongue motion Oral Impairment: Oral Residue: 2=Residue collection on oral structures Oral Impairment:Initiation of Pharyngeal Swallow: 3=Bolus head in pyriforms Pharyngeal Impairment: Soft Palate Elevation: 0=No bolus between soft palate (SP)/pharyngeal wall (PW) Pharyngeal Impairment: Laryngeal Elevation: 0=Complete superior movement of thyroid cartilage (see description) Pharyngeal Impairment: Anterior Hyoid Excursion: Pharyngeal Impairment: Epiglottic Movement: 0=Complete inversion Pharyngeal Impairment: Laryngeal Vestibular Closure:: 1=Incomplete: narrow column air/contrast in laryngeal vestibule Pharyngeal Impairment: Pharyngeal Stripping Wave: 0=Present: complete Pharyngeal Impairment: Pharyngeal Contraction: Did not test Pharyngeal Impairment: Pharyngoesophageal Segment Openin=Partial distention/partial duration: partial obstruction of flow Pharyngeal Impairment: Tongue Base (TB) Retraction: 2=Narrow column of contrast/air between TB and posterior PW Pharyngeal Impairment: Pharyngeal Residue: 2=Collection of residue within or on pharyngeal structures Pharyngeal Impairment: Esophageal Clearance Upright Position: Did not test Impressions and Recommendations Clinical Observations: Current (pre-evaluation) Intake/Diet: Route: NPO/Alternate Route Diet Grade: No Solid/Puree Food Liquid Consistencies: No Liquids Pre-Study Functional Oral Intake Scale (FOIS): 1- No oral intake Pain: None reported at time of study Special Needs: Hard of hearing, non-verbal SUBJECTIVE: Pt admitted on 04/23 after episodes of vomiting. Abdomin CT showed possible bowel obstruction. EGD performed 04/25 without abnormal findings. He was placed NPO after his initial ARBORICULTURIST evaluation on 04/25. Per [facility] documentation he was on Puree Solids and [place]-Thick Liquids. His [facility] aide explains that he is given assistance by placing small amounts before him as he is impulsive. Per his [facility], his last MBSS was 12/26/15 resulting in recommendations for Puree Solids and [place]-Thick Liquids. [facility]way RN is seeking a repeat MBSS during his inpatient stay. He's had repeat Chest X-Rays this admission for management of an NG tube placed for suctioning without notice of any significant lung opacity. OBJECTIVE: Time-out: performed at 11:25 Evaluation Start: 11:30; Stop: 11:45 Patient Positioning: Standing Viewing Planes: AP ONLY Contrast: MBSImP? Standardized Protocol using commercially prepared, standardized Barium viscosities, including: Varibar? NECTAR (40% w/v, <150-450 cps) , Varibar? PUDDING (40% w/v, <3152-3909 cps) MBSImP ID: [id number] MBSImP Results: Lip closure for intraoral bolus containment resulted in bolus escape from the interlabial space or lateral juncture, but no extension beyond the vermilion border. Tongue control during bolus hold could not be assessed due to logistical reasons not related to physiologic impairment. Bolus preparation and mastication could not be assessed; solid not given due to logistical reasons or safety concerns unrelated to oral impairment. Bolus transport/lingual motion was with brisk tongue motion. Oral residue was a collection on oral structures. Initiation of the pharyngeal swallow occurred when the bolus head was in the pyriform sinuses. Soft palate elevation resulted in no bolus between the soft palate and the pharyngeal wall. Laryngeal elevation demonstrated complete superior movement of the thyroid cartilage with complete approximation of the arytenoids to the epiglottic petiole. Anterior hyoid excursion demonstrated complete anterior movement. Epiglottic movement resulted in complete inversion. Laryngeal vestibular closure was incomplete, with a narrow column of air/contrast noted within the laryngeal vestibule at the height of the swallow. Pharyngeal stripping wave was present and complete. Pharyngeal contraction could not be determined due to logistical reasons not related to physiologic impairment. Pharyngoesophageal segment opening demonstrated partial distension/partial duration, with partial obstruction of bolus flow. Tongue base retraction allowed a narrow column of contrast or air between the retracted tongue base and the posterior pharyngeal wall. Pharyngeal residue was a collection of residue within or on pharyngeal structures. Esophageal clearance in the upright position could not be assessed due to logistical reasons not related to physiologic impairment. Oral Impairment Score: 7 (absence of score, component 2component 3) Pharyngeal Impairment Score: 6 (absence of score, component 13) Esophageal Impairment Score: --- (absence of score, component 17) Laryngeal Penetration and Aspiration: Aspiration was observed in today's study. [place]-thick Contrast entered the airway, passed below the vocal folds, and no effort was made to eject. ASSESSMENT: The patient's performance in today's study indicated impairment in swallowing as outlined in the table below: Initiation of the pharyngeal swallow contributed to aspiration and penetration. Laryngeal elevation, Anterior hyoid excursion, and Tongue base retraction contributed to pharyngeal residue. Clinician Assessment: Today?s study was limited as the patient became restless and began trying to exit the Fluro device. He did tolerate sips of [place]-Thick Liquids and Bites of Puree Solid, however. With [place]-Thick Liquids he tolerated spoon amounts and controlled (10mL) sips with no penetration observed. However, when Pt was given a half-full cup and asked to take a small sip, he drank the entire cup in x3-4 consecutive sips. Under this condition he was noted to aspirate contrast that laid above the vocal folds initially. He did not follow cues to clear his throat. Eventually the contrast was observed to pass below the vocal folds and aspirate in to the trachea without any effort to eject. Puree Solids administered via spoon resulted in moderate oral and pharyngeal residue which he made no effort to clear spontaneously or with verbal cues. He was provided a dry spoon which did successfully remove a majority of the oral and pharyngeal residue with a second swallow. PLAN: Intake Recommendations: Route: PO Diet Grade: IDDSI Levels: 4-Pureed Liquid Consistencies: [place] Post-Study Functional Oral Intake Scale (FOIS): 5- Total oral intake of multiple consistencies requiring special preparation. Therapy Recommendations: Therapy will be continued The following compensatory strategies and/or therapeutic exercises will be part of the upcoming therapy/management plan: [place]-thick Liquid Bolus Volume Change No Straws Prognosis for Improvement: The prognosis for the patient to meet nutritional needs by mouth is good based on degree of impairment, stimulability for treatment, support system. Patient's Personal Goals: To resume PO. Taximeter Repairer Goals: ? The patient will tolerate the least restrictive diet with a safe/efficient swallow to maintain adequate nutrition and hydration. ? The patient will demonstrate improved swallowing function via repeat clinical evaluation, videoendoscopy/videofluoroscopy and/or patient self-rating scores. Short Term Goals: ? Diet - The patient will tolerate a pureed diet with nectar thick liquids without signs or symptoms of penetration/aspiration 90% of the time. - The patient will participate in therapeutic PO trials with the ARBORICULTURIST. ? Guidelines - The patient will comply with/recall the following guidelines/strategies 90% of the time with maximum cuing: [place]-thick Liquid, Bolus Volume Change, No Straws. Clinician - Supplemental, Miscellaneous Communication: It is important to note MBSS objective studies are snapshots in time and Patient function might vary with factors such as time of day or concomitant medical conditions. For this reason, the final treatment plan for this patient should rest with their medical care team. Additional recommendations should be considered with the totality of the Patient in mind. Thank for the opportunity to participate in the care of this patient. If you have any questions about the content of this report, please contact the [facility] at [facility]. Education: Education regarding findings from today's study and plans for therapy were provided to Patient and family/caregiver through Verbal Instruction. Understanding was expressed by the Patient and family/caregiver. Liquid Intake Recommendation: [place] Thick Liquid Intake Strategies: Small Sips Dietary Recommendations: Pureed (NDD1) Medication Administration: Crushed with Puree Please contact the pharmacy regarding appropriate crushable or liquid drug formulations that are available whenever modified delivery is recommended. Compensatory Strategies Recommended: Sitting Upright (90 deg) No Straw Liquids from Cup Liquids from Straw Small Bites and Sips Alternate Liquids/Solids Rate of Ingestion Change Avoid Specific Foods Supervision during eating and or drinking: Total Assistance (1:1) Recommended Treatments: Vocal Cord Adduction Exer Recommendation for Speech Therapy: Inpatient Speech Therapy Speech Therapy through Rehab Facility Text Comment: Recommending RETURN to baseline diet of PUREE SOLIDS and THIN LIQUIDS. MEDS CRUSHED with PUREE. Pt requires 1:1 ASSIST with all PO due to impulsivity. Recommend feeding assistance by controlling bolus size via placing small amounts in front of him whether solid or liquid. Pt should also be out of bed for all meals, sitting upright in a chair, and avoid the use of straws. Frequency/Duration: Daily Date Range for Service Requested: Admission - Discharge Timeline to reassess: PRN Vice President Regulatory Clinician/Clinical Fellow: No Supervisory Statement: N/A Speech Language Pathologist: Juan Manuel Dowell M.A., CCC-ARBORICULTURIST
--- NOTE | 2024-04-26 14:12 | P.DS_ITS ---
DS: Providers Provider Date of Service: 04/26/24 Date of admission: 04/23/24 05:28 Primary care physician: Brandon Tovar MD Consults: 04/23/24 09:25 Consult to General Surgery Routine Consulting Provider[place] [facility] [facility] Reason for consultation: gastric outlet obstructio 04/23/24 12:50 Consult to Gastroenterology Routine Consulting Provider: Luiz Riggs Reason for consultation: Megacolon, gastric outlet obstruction Has provider been notified: No DS: Diagnosis Discharge Diagnosis (1) Constipation: Status: Acute (2) Partial gastric outlet obstruction: Status: Acute (3) Incomplete bladder emptying: Status: Acute DS: Summary Hospital Course Hospital Course: admission hpi by Dr. Galan Chief Complaint: Vomiting Wilfredo Sands is a 73 years old man with past medical history significant for nonverbal learning disability, GERD, Barretts syndrome, BPH and essential hypertension was brought to the emergency department via ambulance from his [facility] after he started to experience couple of events of vomiting. HPI was provided by staff member who was at bedside. Staff member stated that patient usually has a distended abdomen but nothing out of the norm and does not feel that the patient was in pain or that choked. He also stated that the patient have a bowel movement last night. No fever reported. Patient has history of dysphagia. In the ED, patient was found to have normal vital signs. Blood workup was remarkable for leukocytosis of 14.7. Hemoglobin is 14.8 and platelet 169. There are no significant electrolyte imbalances. Renal function and LFTs are normal. CXR showed low lung volumes with bibasilar atelectasis changes, blunting of the right costophrenic angle/right lower lobe pleural thickening (chronic changes vs small right pleural effusion), NG tube appears to be in adequate position. Abdomen pelvis CT scan showed large volume of stool through the colon with mild wall thickening and surrounding fat stranding at the rectosigmoid junction potentially corresponding to the degree of stercoral colitis without evidence of perforation, gastric distention with reflux of fluid into the distal esophagus (could be gastric outlet obstruction), delayed gastric emptying related to delayed bowel transit and increased intra-abdominal pressure from the large stool burden is also possible, slow bowel transit with fecalization of the distal small bowel without evidence of small-bowel obstruction. ED tx: NS 1 L bolus, Ativan 2 mg IV Hospital course: The patient has a history of chronic constipation and presented with nausea and vomiting. A CT of the abdomen revealed large-volume constipation throughout the colon and gastric distention, raising concerns for gastric outlet obstruction. An NGT was inserted, and an enema was administered with good effect, prompting a GI consultation. He underwent an EGD on 04/24/24, which showed no evidence of gastric outlet obstruction but identified a hiatal hernia. He was started on a clear liquid diet. The next day, he experienced coughing with liquids and food, leading to an assessment by MEDICAL FIELD REPRESENTATIVE. A modified barium swallow indicated some level of impairment, resulting in a recommendation for a pureed diet, nectar-thick liquids, and 1:1 feeding. He is tolerating this consistency. Time Attestation Discharge Coordination Time (in mins): 40 Quality: Safe Use of Opioids Does Pt have an Active Cancer Diagnosis on the Problem List?: No Quality: Stroke Does the patient have a stroke diagnosis?: No Physical Exam Vital Signs: Vital Signs: Last Vital Signs Temp 97.2 F 04/26/24 13:03 Pulse 79 04/26/24 13:03 Resp 18 04/26/24 13:03 BP 101/65 04/26/24 13:03 Pulse Ox 95 04/26/24 07:13 O2 Del Method Room Air 04/26/24 07:13 O2 Flow Rate 3 04/24/24 15:05 BMI result Body Mass Index 25.0 DS: Data Data Completed and Pending Completed studies during hospitalization [Text1]: Procedures Insertion of Endotracheal Airway into Trachea, Via Natural or Artificial Opening (02/25/22) Insertion of Infusion Device into Superior Vena Cava, Percutaneous Approach (02/25/22) Introduction of Vasopressor into Peripheral Vein, Percutaneous Approach (02/25/22) Respiratory Ventilation, Greater than 96 Consecutive Hours (02/25/22) Ultrasonography of Superior Vena Cava, Guidance (02/25/22) Pending studies at discharge: Pending at discharge 04/24/24 14:50 Surgical [PTH] Routine Labs on day of discharge: Laboratory Results - last 24 hr 04/26/24 08:00 WBC 6.3 RBC 4.11 L Hgb 12.4 L Hct 38.1 L MCV 92.7 MCH 30.2 MCHC 32.5 RDW 14.6 Plt Count 169 MPV 12.3 Absolute Nucleated RBC 0.000 Nucleated RBC % (auto) 0.0 Sodium 142 Potassium 3.5 Chloride 109 H Carbon Dioxide 26 Anion Gap 11 L BUN 5 L Creatinine 0.80 Estim Creat Clear Calc 75.7 Estimated GFR > 60 Random Glucose 100 Calcium 8.7 Discharge Plan Discharge Anticipated Discharge Date/Time: 04/26/24 14:06 Patient Disposition: Home, Self-Care Discharge Diagnosis: Gastric obstruction with constipation resolved Referrals: Brandon Tovar MD [Primary Care Provider] - 1 Week Discharge Medications: Continued pravastatin 40 mg Tablet 40 mg PO QPM lisinopril 20 mg Tablet 20 mg PO QAM Protocol: Hold for SBP< HOLD for SBP < : 90 hydrochlorothiazide 25 mg Tablet 25 mg PO DAILY@0800 Protocol: Hold for SBP< HOLD for SBP < : 90 docusate sodium 100 mg Tablet 100 mg PO BID magnesium hydroxide [Milk of Magnesia] 400 mg/5 mL suspension 30 ml PO BEDTIME bacitracin zinc 500 unit/gram Ointment 1 appl TOPICAL QID PRN (Reason: Wound Care) polyethylene glycol 3350 [Miralax] 17 gram/dose Powder 17 g PO DAILY@1700 Culturelle 10 billion cell Capsule 1 cap PO QAM guaifenesin [Tussin Mucus-Chest Congestion] 100 mg/5 mL Liquid 200 mg PO Q6H PRN (Reason: cough/cold) hydrocortisone 1 % Cream 1 appl TOPICAL BID PRN (Reason: Hemorrhoids) diazepam 10 mg Tablet 10 mg PO ONCE PRN (Reason: eye appointment) Rx Instructions: 2 hours before mineral oil-isopropyl myristat Lotion 1 appl TOPICAL MOWEFR Rx Instructions: TWICE DAILY finasteride 5 mg tablet 5 mg PO QPM multivitamin with folic acid [Thera] 400 mcg tablet 1 tab PO DAILY@2100 omeprazole 40 mg capsule,delayed release(DR/EC) 40 mg PO QAM lactulose 10 gram/15 mL solution 30 ml PO QPM loratadine 10 mg tablet 10 mg PO DAILY PRN (Reason: Allergy Symptoms) tamsulosin 0.4 mg capsule 0.8 mg PO BEDTIME 90 Days Qty: 180 3RF Rx Instructions: This is an increase in dose Can take 0.8 mg at bedtime or 0.4 mg b.i.d. acetaminophen 325 mg tablet 650 mg PO Q6H PRN (Reason: Fever Or Pain) bisacodyl [OneLAX Bisacodyl] 10 mg suppository 10 mg NV DAILY@1999 PRN (Reason: constiaption) Rx Instructions: on 4th day of no BM if MOM not effective Enema Disposable 19-7 gram/118 mL enema 118 ml NV DAILY PRN (Reason: Constipation) Rx Instructions: on day 5 without BM terbinafine HCl [Antifungal (terbinafine)] 1 % cream 1 appl topical BID PRN (Reason: Rash) Rx Instructions: feet Diet: Advance to usual diet Activity on Discharge: As tolerated Stand Alone Forms: Patient Portal Discharge page Print Language: Occitan Care Plan Goals: resolution of vomiting related to bowel obstruction and prevent related complications Health Concerns: chronic constipation gastric outlet obstruction that has resolved Plan of Treatment: Continue all prior medication as before, take all bowel regimen as recommended and drink Plenty of fluid Assessment: see above
[2024-04-26 14:31] VITALS: BP 116/70; PULSE 80; RESP 18; TEMP 36.4; O2SAT 97
--- NOTE | 2024-04-26 15:25 | MHC.CM.PN ---
Addendum entered by Ashlyn Gudino 04/26/24 15:57: CM RECEIVED A RETURN CALL FROM [facility] SHE IS AWARE OF DC AND MEDICARE RIGHTS Original Note: PT CLEARED TO DC BACK TO THE [facility] TODAY CM SPOKE TO ADELAIDA RN, TODD [phone] SHE REQUESTS PTS MED FORMS BE SIGNED BY AND DCS IS ALSO SIGNED SHE ALSO ASKED FOR PTS DIET ORDERS WHICH WERE PROVIDED FROM DCS SHE IS AWARE TRANSPORT HAS BEEN BOOKED WITH JYOTI MUNIZ, WHO STATED IT MAY BE NEAR 1800 HOURS BUT THEY WOULD TRY TO COME EARLIER IF POSSIBLE CM CALLED PTS JENNIFER AMOS [phone] AND LEFT A VM WITH THE ABOVE INFORMATION AND UPDATING PTS MEDICARE RIGHTS
[2024-04-26] MEDS: polyethylene glycoL 3350 17 GM POWD.PACK PO (18:05)
== END 2024-04-26 19:19 | disposition home or self-care (01) | DRG 392 ==
LOC: HO.ED 04-23 02:31 → HO.EDOVER 04-23 05:34 → HO.S3 04-23 07:33
PROVIDERS: Internal Medicine Gastroenterology; Admitting Provider Internal Medicine; Emergency Provider Internal Medicine; PCP Internal Medicine; Visit Provider Internal Medicine
PROC: 0DJ08ZZ Inspection of Upper Intestinal Tract, Via Natural or Artificial Opening Endoscopic (ICD-10-PCS; CPT 43235; principal; 2024-04-24 14:50)
DX: K59.01 Slow transit constipation (principal); K31.1 Adult hypertrophic pyloric stenosis; I10 Essential (primary) hypertension; K21.9 Gastro-esophageal reflux disease without esophagitis; E78.5 Hyperlipidemia, unspecified; K22.70 Barrett's esophagus without dysplasia; F41.9 Anxiety disorder, unspecified; N40.1 Benign prostatic hyperplasia with lower urinary tract symptoms; R39.14 Feeling of incomplete bladder emptying; K44.9 Diaphragmatic hernia without obstruction or gangrene; Z78.1 Physical restraint status; Z79.899 Other long term (current) drug therapy
CPT/HCPCS: 36415; 71045; 74176; 74230; 80048; 80053; 81001; 83605; 85025; 85027; 88305; 88313; 88342; 92610; 92611; 99285; C9113; J1644; J2060; J2405; J2704; J3480

== ENCOUNTER 2024-04-23 05:28 | Outpatient (BNV) | payer MEDICARE, MEDICAID, SELFPAY | END 2024-04-26 12:00 | PROVIDERS: Admitting Provider Internal Medicine; Emergency Provider Internal Medicine; PCP Internal Medicine; Visit Provider Physician Assistant Surgical | DX: R13.10 Dysphagia, unspecified (principal) | CPT/HCPCS: 74230 ==

== ENCOUNTER → 2024-04-23 05:28 | Outpatient (BNV) | payer MEDICARE, MEDICAID, SELFPAY | PROVIDERS: Admitting Provider Internal Medicine; Emergency Provider Internal Medicine; PCP Internal Medicine; Visit Provider Internal Medicine | DX: K59.01 Slow transit constipation (principal); K31.1 Adult hypertrophic pyloric stenosis; R33.9 Retention of urine, unspecified | CPT/HCPCS: 99223; 99232; 99239; 99499 ==

== ENCOUNTER → 2024-04-23 05:28 | Outpatient (BNV) | payer MEDICARE, MEDICAID, SELFPAY | PROVIDERS: Admitting Provider Internal Medicine; Emergency Provider Internal Medicine; PCP Internal Medicine; Visit Provider Surgery | DX: K31.1 Adult hypertrophic pyloric stenosis (principal) | CPT/HCPCS: 99222 ==

== ENCOUNTER 2024-05-17 10:04 | Outpatient (AMB) | payer MEDICARE, MEDICAID, SELFPAY ==
--- NOTE | 2024-05-17 10:09 | MHC.OFFVIS ---
Intake Visit Reasons: 3m/PSA/PVR Intake Note: Patient presents today for follow up on: incomplete bladder emptying, renal cyst, and elevated psa PSA: 8.5 Urology Medication: Finasteride, Tamsulosin Antibiotic Allergies: Macrolide Antibiotics, Azithromycin Blood Thinners: None PVR: 15ml's Pharmacy: [facility] Director Clinical Data Required: No Accompanied by: manager call Allergies azithromycin [AZITHROMYCIN] Allergy (Unknown, Verified 05/17/24 10:40) UNKOWN Macrolide Antibiotics [MACROLIDE ANTIBIOTICS] Allergy (Unknown, Verified 05/17/24 10:40) unknown Macrolides and ketolides Allergy (Unknown, Uncoded 05/17/24 10:40) Unknown Medication List - Last Reconciled 05/17/24 by RJ Ramos acetaminophen 650 mg PO Q6H PRN bacitracin zinc 1 appl topical QID PRN bisacodyl (OneLAX Bisacodyl) 10 mg [place] DAILY@2000 PRN diazepam 10 mg PO ONCE PRN docusate sodium 100 mg PO BID finasteride 5 mg PO QPM guaifenesin (Tussin Mucus-Chest Congestion) 200 mg PO Q6H PRN hydrochlorothiazide 25 mg See Protocol PO DAILY@0800 hydrocortisone 1% 1 appl topical BID PRN Lactobacillus rhamnosus GG (Culturelle) 1 cap PO QAM lactulose 30 mL PO QPM lisinopril 20 mg See Protocol PO QAM loratadine 10 mg PO DAILY PRN magnesium hydroxide (Milk of Magnesia) 30 mL PO BEDTIME mineral oil-isopropyl myristat 1 appl topical MOWEFR multivitamin with folic acid 400 mcg (Thera) 1 tab PO DAILY@2100 omeprazole 40 mg PO QAM polyethylene glycol 3350 (Miralax) 17 grams PO DAILY@1700 pravastatin 40 mg PO QPM sodium phosphates 19-7 gram/118 mL (Enema Disposable) 118 mL [place] DAILY PRN tamsulosin 0.8 mg (2 x 0.4 mg) PO BEDTIME 90 days terbinafine HCl 1% (Antifungal (terbinafine)) 1 appl topical BID PRN HPI Comments Details: Wilfredo is a very pleasant 73 year old male patient of Dr. Tovar was accompanied by his case workers from the skilled nursing. He has a past medical history of Bustamante syndrome, BPH, GERD, hard of hearing, hypertension, and nonverbal learning disorder. He presents to the office today for a follow-up of his recent urinary tract infection, incomplete bladder emptying, and elevated PSA. Much of today's history is provided by patient's healthcare or medical from skilled nursing as patient is nonverbal. No urinary issues or concerns at this time. In office urinalysis results reviewed with the patient and his staff today. PVR 15 mL. Staff report patient has been hospitalized 2 times prior to his last office visit here approximately 4 months ago for non urological issues. Once for the flu and once for GI obstruction. In review of patient's MAR it does appear patient is compliant with Flomax and finasteride as prescribed. PSAs are as follows: PSA 11/19 5.2, 04/20 6.5, 08/20 2.7, 02/19 2.7, 02/20 5.0, 08/22 3.6, 05/23 8.5 Previous workup has included a retroperitoneal ultrasound 08/22 noting multiple renal cysts bilateral, no evidence of hydronephrosis, partially distended, limiting evaluation, possible diverticulum. Prostate gland is lobulated with a volume of approximately 16 mL. senior living staff members report patient to be doing well. They deny any UTI like symptoms and or urological issues or concerns at this time. Discussed at length increase in PSA despite compliance with finasteride. Discussed potential causes of elevated PSA. Call to patient's healthcare proxy Sharmin who is his sister at [phone]. [facility] Medical History HTN (hypertension) BPH (benign prostatic hyperplasia) Barretts syndrome GERD (gastroesophageal reflux disease) [place] (hard of hearing) Non-verbal learning disorder Social History Household Members: None Household Members Other:: From skilled nursing Housing: Unknown / Unable to assess Housing Other:: [facility] Do you presently have visiting nurse or other home services: Yes (senior living) Unable to assess alcohol history related to: Unable to respond and Unknown Comment: group leader at bedside Patient Tobacco Use Status: Never used Tobacco Advance Directives Date on File: 01/09/24 service: No Current occupational status: disabled Review of Systems Const Unobtainable due to mental condition Physical Exam Const General: cooperative, healthy appearing, comfortable, no acute distress, well developed, alert and awake Orientation/consciousness: patient oriented x3 HEENT Head: Yes normal to inspection, Yes normocephalic and Yes atraumatic Ears: hearing grossly normal bilaterally Eyes General: appearance normal, both eyes and all related structures Neck Neck: Yes normal visual inspection and Yes trachea midline Chest Chest palpation & inspection: normal inspection of the chest Resp Effort & Inspection: normal respiratory effort and able to speak in complete sentences Cardio Rate: regular rate GI Inspection: Yes normal to inspection General: Yes no CVA tenderness Back/Spine/Pelvis Back: no CVA tenderness Skin General skin exam: no rashes or lesions noted Neuro General: patient oriented x3 Extrem General: Yes normal to inspection Psych Appearance: grossly normal and well kempt Mental Status: mental status grossly normal Speech and movement: Normal speech and movement present and Clear speech present Affect: normal affect Attitude: cooperative Thought process: Normal thought process present Thought content: Normal thought content present Insight: Fair insight present (Psych) Judgement: Fair judgement present (Psych) Office Procedures Post Void Residual Post Residual Void Post Void Residual (PVR): 15 [id number] Void Residual by ultrasound Results AMB Urinalysis, Automated UA Leukoctes 0 Martha/uL Last Edit by [employer] on 05/17/24 10:28 UA Nitrite Negative Last Edit by [employer] on 05/17/24 10:28 UA Urobilinogen 0.2 mg/dL Last Edit by [employer] on 05/17/24 10:28 UA Protein 0 mg/dL Last Edit by [employer] on 05/17/24 10:28 UA pH 7.0 Last Edit by [employer] on 05/17/24 10:28 UA Blood 0 Morgan/uL Last Edit by [employer] on 05/17/24 10:28 UA Specific [place] 1.015 Last Edit by [employer] on 05/17/24 10:28 UA Ketone Negative Last Edit by [employer] on 05/17/24 10:28 UA Bilirubin 0 mg/dL Last Edit by [employer] on 05/17/24 10:28 UA Glucose 0 mg/dL Last Edit by [employer] on 05/17/24 10:28 Results Reviewed Results Reviewed: Laboratory Last Values Urine pH (Auto) 7.0 05/17/24 10:16 Specific [place] (Auto) 1.015 05/17/24 10:16 Urine Protein (Auto) 0 mg/dL 05/17/24 10:16 Glucose (UA)(Auto) 0 mg/dL 05/17/24 10:16 Urine Ketones (Auto) Negative 05/17/24 10:16 Urine Blood (Auto) 0 Morgan/uL 05/17/24 10:16 Urine Nitrite (Auto) Negative 05/17/24 10:16 Urine Bilirubin (Auto) 0 mg/dL 05/17/24 10:16 Urine Urobilinogen (Auto) 0.2 mg/dL 05/17/24 10:16 Leukocyte Esterase (Auto) 0 Martha/uL 05/17/24 10:16 Assessment & Plan Assessment & Plan (1) Elevated PSA: Code(s): R97.20 - Elevated prostate specific antigen [PSA] Category: Medical Plan: Plan Risks and benefits regarding trans rectal ultrasound with prostate biopsy were discussed.? Options of continued surveillance, no treatment and biopsy were offered. The risks include but are not limited to, urinary tract infection, sepsis, difficulty urinating, bleeding into the rectum or bladder that requires intervention and transfusion,and failure to diagnose prostate cancer. The patient understands the options and the risks involved. They wish to proceed. Printed information was provided to ensure he remains off anticoagulation for the appropriate length of time. He may require cardiology or PCP clearance.? An antibiotic will be administered prior to, and following the procedure Plan In office urinalysis results reviewed with the patient today; as noted above. PVR 15 mL. Discussed elevated PSA; call to patient's healthcare proxy Sharmin at [phone]; discussed labile PSA; discussed further treatment options to include prostate MRI verses surveillance monitoring verses redraw of PSA verses MRI of the prostate; risks and benefits of these interventions were discussed; all questions were answered. Staff deny any urological issues or concerns at this time. Continue Flomax and finasteride as prescribed. Will schedule for prostate biopsy. Follow-up per doctor's orders; or sooner with any issues, concerns, and or questions. Orders: Orders PSA,Total (Free>4and<10) 05/17/24 R97.20 - Elevated prostate specific antigen [PSA] AMB Urinalysis Automated 05/17/24 Z13.9 - Encounter for screening, unspecified AMB Post Void Residual by ultrasound 05/17/24 N40.1 - Benign prostatic hyperplasia with lower urinary tract symptoms Patient Instructions: The patient had an opportunity to ask questions regarding the treatment plan. All questions were answered. Physical exam, labs, and imaging were discussed and reviewed in detail. As well as risks, benefits, and discussion of treatment choices. No major barriers to understanding were identified. The patient expressed understanding and agreement with the above treatment plan. The patient was made aware they should contact our office by phone for worsening of their current condition, the appearance of new symptoms, or with any questions or concerns. Compliance is encouraged with any medications and follow up testing that is ordered. It is a privilege to be allowed the opportunity to participate in? your urological care.? Again, if you have any questions or concerns If you have any questions or concerns please do not hesitate to contact me. The office is [phone]. This note is constructed using voice recognition software. While every effort has been made to ensure accuracy cloth coverer errors may have been included. Yours sincerely, DELON Ramos-OPAL Coding Level of Care Code Est Pt Level 4 (08854) Complex EM visit Add On G2211 Diagnoses Elevated PSA R97.20 CPT Codes Post Residual Void - PVR CPT Code: 61979-Tlpf Void Residual by ultrasound ([id number]) Time Spent (min) 30
== END 2024-05-17 11:06 | disposition home or self-care (01) ==
PROVIDERS: PCP Internal Medicine; Visit Provider Nurse Practitioner Family
DX: R97.20 Elevated prostate specific antigen [PSA] (principal)
CPT/HCPCS: 99214; G2211

== ENCOUNTER → 2024-05-17 10:04 | Outpatient (BNVA) | payer MEDICARE, MEDICAID, SELFPAY | PROVIDERS: PCP Internal Medicine; Visit Provider Nurse Practitioner Family | DX: N40.1 Benign prostatic hyperplasia with lower urinary tract symptoms (principal); R39.14 Feeling of incomplete bladder emptying; R97.20 Elevated prostate specific antigen [PSA]; N28.1 Cyst of kidney, acquired | CPT/HCPCS: 51798; 81003; 99212 ==

== ENCOUNTER 2024-06-14 07:46 | Outpatient (REF) | payer MEDICARE, MEDICAID, SELFPAY ==
[2024-06-14] MEDS: Lidocaine HCl 1 % MPF 5 ML VIAL 10 ML SUBCUT (09:15)
--- NOTE | 2024-06-14 16:58 | P.OP_ITS ---
Operative Note Operative Note Date of Service: 06/14/24 Narrative: Preoperative diagnosis: Elevated PSA Postoperative diagnosis: Elevated PSA Procedure: 1. transrectal ultrasound measurement of prostate 2. transrectal ultrasound-guided pudendal nerve block 3. transrectal ultrasound-guided prostate biopsy 12 core Surgeon: Dr. Lucien Arriaga Anesthetic: 10cc 1% lidocaine Indications for procedure: Elevated PSA 8.5 Counselling: Technical aspects, risks and benefits of proposed procedure were discussed in full. All questions have been answered, written consent has been obtained and patient agrees to proceed. Procedure: The patient was brought into the procedure area and placed in a left lateral decubitus position. Patient identity confirmed. Perioperative antibiotics confirmed. Safety pause time out performed. JERRY was performed to dilate rectal sphincter Iodine 10cc with 60 cc gel was placed per rectum to reduce infection risk using a catheter tip syringe. 8 Hz Neetu rectal end-fire ultrasound probe was placed transrectally without difficulty. The prostate was visualized. Seminal vesicles were normal. Prostate margins were clearly demarcated. Bladder was seen superiorly. No cystic structures were noted Significant calcifications were noted at the surgical margin The prostate was otherwise homogeneous in nature The prostate was measured in 3 dimensions Prostatic Width: 3.9 cm Prostatic Height: 3.6 cm Urethral Length: 3.6 cm Total volume equals : 20 ml An ultrasound-guided pudendal nerve block was performed using a 22 gauge spinal needle in the sagittal plane. 4 cc of 1% lidocaine placed at the junction of each seminal vesicle and 2 cc placed at the apex of the prostate. A 12 core biopsy was performed with 6 cores each side using an 18 gauge prostate biopsy gun. Two cores each were taken at the prostate apex, mid and base on each side. Cores were spaced between lateral and medial aspects. Each core was examined as placed on specimen foam as part of lead quality control technician to ensure a minimum 1 cm of length and minimal discontinuity. He tolerated the procedure well with minimal rectal bleeding. Blood pressure remained stable following procedure. He was able to ambulate to bathroom after 5 minutes. Printed instructions regarding antibiotic use and common adverse events from the procedure such as low-grade temperature, potential infection and bleeding were given. He understands to call the office or go to an emergency room should any of these events arise. Pathology: 12 core prostate biopsy. CPT code 57073: Transrectal ultrasound; this is a diagnostic test for evaluation of the prostate and surrounding structures, looking for abnormalities or suspicious areas worrisome for cancer an includes three-dimensional measurements of prostate size CPT code 71085: Biopsy, prostate; needle or punch, single or multiple, any approach CPT code 57080: Ultrasonic guidance for needle placement (eg, biopsy, aspiration, injection, localization device), imaging supervision and interpretation
== END 2024-06-14 07:47 | disposition home or self-care (01) ==
LOC: HO.US 07:46
PROVIDERS: PCP Internal Medicine; Visit Provider Urology
DX: R97.20 Elevated prostate specific antigen [PSA] (principal)
CPT/HCPCS: 55700; 76942; 88305; 88344

== ENCOUNTER → 2024-06-14 07:46 | Outpatient (BNV) | payer MEDICARE, MEDICAID, SELFPAY | PROVIDERS: PCP Internal Medicine; Visit Provider Urology | DX: R97.20 Elevated prostate specific antigen [PSA] (principal) | CPT/HCPCS: 55700; 76872; 76942 ==

== ENCOUNTER → 2024-07-04 12:09 | Outpatient (BNVA) | payer MEDICARE, MEDICAID, SELFPAY | PROVIDERS: PCP Internal Medicine; Visit Provider Urology ==

== ENCOUNTER 2024-07-10 08:22 | Outpatient (AMB) | payer MEDICARE, MEDICAID, SELFPAY ==
--- NOTE | 2024-07-10 08:28 | A.OFFVIS_ITS ---
Intake Visit Reasons: prostate biopsy results Intake Note: Patient is Present for Telephone Follow Up Biopsy Results Urology Med: Finasteride, Tamsulosin Antibiotic Allergy: Azithromycin,Macrolide Antibiotics Blood Thinner:None Silo Filler Required: No Allergies azithromycin [AZITHROMYCIN] Allergy (Unknown, Verified 07/10/24 08:29) UNKOWN Macrolide Antibiotics [MACROLIDE ANTIBIOTICS] Allergy (Unknown, Verified 07/10/24 08:29) unknown Macrolides and ketolides Allergy (Unknown, Uncoded 07/10/24 08:29) Unknown Medication List - Last Reconciled 07/10/24 by Lucien Arriaga MD acetaminophen 650 mg PO Q6H PRN bacitracin zinc 1 appl topical QID PRN bisacodyl (OneLAX Bisacodyl) 10 mg [place] DAILY@2000 PRN diazepam 10 mg PO ONCE PRN docusate sodium 100 mg PO BID finasteride 5 mg PO QPM guaifenesin (Tussin Mucus-Chest Congestion) 200 mg PO Q6H PRN hydrochlorothiazide 25 mg See Protocol PO DAILY@0800 hydrocortisone 1% 1 appl topical BID PRN Lactobacillus rhamnosus GG (Culturelle) 1 cap PO QAM lactulose 30 mL PO QPM levofloxacin 500 mg PO daily 3 days lisinopril 20 mg See Protocol PO QAM loratadine 10 mg PO DAILY PRN magnesium hydroxide (Milk of Magnesia) 30 mL PO BEDTIME mineral oil-isopropyl myristat 1 appl topical MOWEFR multivitamin with folic acid 400 mcg (Thera) 1 tab PO DAILY@2100 omeprazole 40 mg PO QAM polyethylene glycol 3350 (Miralax) 17 grams PO DAILY@1700 pravastatin 40 mg PO QPM sodium phosphates 19-7 gram/118 mL (Enema Disposable) 118 mL [place] DAILY PRN tamsulosin 0.8 mg (2 x 0.4 mg) PO BEDTIME 90 days terbinafine HCl 1% (Antifungal (terbinafine)) 1 appl topical BID PRN HPI Comments Details: Wilfredo is a very pleasant male. He is a resident of a skilled nursing he is seen for the following urologic conditions - BPH - elevated PSA - Prostate cancer Telemedicine Evaluation 15 min Consultation [employer] Deanne Video attempted Discussion with healthcare proxy Sharmin - [phone] Prostate cancer - high-risk Multi core biopsy PSA 8.5 High-risk core Plan for intermittent hormone therapy and staging [facility] Medical History HTN (hypertension) BPH (benign prostatic hyperplasia) Barretts syndrome GERD (gastroesophageal reflux disease) [place] (hard of hearing) Non-verbal learning disorder Social History Household Members: None Household Members Other:: From skilled nursing Housing: Unknown / Unable to assess Housing Other:: Shelter Do you presently have visiting nurse or other home services: Yes (jail) Unable to assess alcohol history related to: Unable to respond and Unknown 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 Patient Tobacco Use Status: Never used Tobacco Advance Directives Date on File: 01/09/24 service: No Current occupational status: disabled Review of Systems Const All systems reviewed & are unremarkable except as noted in HPI and below Reports no additional complaints Resp Reports no additional complaints GI Reports no additional complaints Reports as per HPI Musc Reports no additional complaints Physical Exam Telemedicine evaluation Appropriate responses Regular breathing rate and rhythm HEENT Head: Yes normal to inspection Ears: hearing grossly normal bilaterally Eyes General: appearance normal, both eyes and all related structures Neck Neck: Yes normal visual inspection Chest Chest palpation & inspection: normal inspection of the chest Resp Effort & Inspection: normal respiratory effort and able to speak in complete sentences Telehealth Telehealth Telehealth Platform: Hosted Systems Location of provider rendering services: practice address Location of patient: address on file Patient Identification confirmed using: Name, : Yes Telehealth method: video Patient verbally consented to treatment: Yes Patient verbally consented to billing insurance company: Yes Patient informed of any privacy concerns related to visit: Yes Minutes spent on Phone/Video with Pt.: 15 Assessment & Plan Assessment & Plan (1) Hormone sensitive prostate cancer: Code(s): C61 - Malignant neoplasm of prostate; Z19.1 - Hormone sensitive malignancy status Category: Medical Plan PET-CT GnRH injection Three-month follow-up labs Orders: Orders PET CT fusion skull to thigh Today C61 - Malignant neoplasm of prostate, Z19.1 - Hormone sensitive malignancy status PSA,Total (Free>4and<10) 3 Months C61 - Malignant neoplasm of prostate, Z19.1 - Hormone sensitive malignancy status Testosterone, Total 3 Months C61 - Malignant neoplasm of prostate, Z19.1 - Hormone sensitive malignancy status Patient Instructions: Imaging studies, laboratory and physical exam results were discussed and reviewed in detail. No major barriers to patient understanding were identified. An opportunity to ask questions regarding the treatment plan was provided. All questions were answered. The patient expressed understanding and agreement with the above treatment plan. The patient is aware they should contact our office by phone for worsening of their current condition or the appearance of new urologic symptoms. Compliance is encouraged with any medications and followup testing that is ordered. It is a privilege to participate in the urologic care of your patient. If you have any questions or concerns regarding treatment for the above conditions, or other urologic issues, please do not hesitate to contact me. The office telephone contact is [phone]. This note is constructed using voice recognition software. While every effort has been made to ensure accuracy executive administrative assistant errors may have been included. Yours sincerely, Dr Lucien Arriaga MD, [facility] - Urology Providers of Expert, Compassionate Care for the Genitourinary System Coding Level of Care Code Tele Est Pt Level 4 (27388) Diagnoses Hormone sensitive prostate cancer C61; Z19.1
--- OUTSIDE RECORDS SUMMARY | 2024-07-10 08:30 | XMS_ITS ---
Author Organization [facility] Address [address] [place] [id number] Care Team Providers Care Front Window Cashier Name Role Phone Brandon Tovar MD Primary Care Provider Marques Riggs Jr, Luiz Obrien [phone] REASON FOR VISIT pathology Encounters Encounter Location Date Provider Diagnosis [facility] [address] [place] [id number] 04/27/2024 Luiz Riggs Jr PLAN OF TREATMENT No Information
--- OUTSIDE RECORDS SUMMARY | 2024-07-10 08:30 | XMS_ITS | Patient Health Record ---
Author Organization [facility] Address [address] [place] [address] Care Team Providers Care Retort Firer Name Role Phone La MADISON, Brandon Primary Care Provider Marques Riggs Jr, Luiz Obrien RESULTS Component Value Reference Range Notes Pathology Reviewed date:04/27/2024 04:22:54 PM Interpretation: Performing Lab:[facility], [address] [place] [id number] Notes/Report: REASON FOR REFERRAL No Information SOCIAL HISTORY Sex Assigned At : Social History Observation Description Sex Assigned At Unknown PROBLEMS Problem Type ICD Code Onset Dates Problem Status W/U Status Risk SNOMED Code Notes Problem 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 [address] [place] [address] [phone] [id number] JOHAN CRISOSTOMO Self - patient is the insured
== END 2024-07-10 09:42 | disposition home or self-care (01) ==
LOC: HO.HUSH 08:22
PROVIDERS: PCP Internal Medicine; Visit Provider Urology
DX: C61 Malignant neoplasm of prostate (principal); Z19.1 Hormone sensitive malignancy status
CPT/HCPCS: 99214

== ENCOUNTER → 2024-07-10 08:22 | Outpatient (BNVA) | payer MEDICARE, MEDICAID, SELFPAY | PROVIDERS: PCP Internal Medicine; Visit Provider Urology ==

== ENCOUNTER 2024-07-31 11:31 | Outpatient (AMB) | payer MEDICARE, MEDICAID, SELFPAY ==
--- NOTE | 2024-07-31 11:40 | AM.OFFVISNUR ---
Intake Visit Reasons: GnRH(PA Set) Allergies azithromycin [AZITHROMYCIN] Allergy (Unknown, Verified 07/10/24 08:29) UNKOWN Macrolide Antibiotics [MACROLIDE ANTIBIOTICS] Allergy (Unknown, Verified 07/10/24 08:29) unknown Macrolides and ketolides Allergy (Unknown, Uncoded 07/10/24 08:29) Unknown Office Meds Eligard (6 month) 45 mg (6 month) subcutaneous syringe Performing Provider: Lucien Arriaga MD [place] [facility] [place] [facility] Administered by: Brendon Trevino LPN on 07/31/24 11:40 Dose Route Admin Location Dispensed Lot Number Expiration Date [facility] [employer] 45 mg subcut left arm 45 mg [id number] 08/31/25 33316-179-37 [employer]. Assessment & Plan Assessment & Plan Orders: Orders AMB Leuprolide Injection - Practice Supplied Today C61 - Malignant neoplasm of prostate, Z19.1 - Hormone sensitive malignancy status Medications: New Eligard (6 month) (leuprolide acetate (6 month)) 45 mg subcut ONCE 1 ea 0RF NS C61 - Malignant neoplasm of prostate, Z19.1 - Hormone sensitive malignancy status
== END 2024-07-31 11:55 | disposition home or self-care (01) ==
PROVIDERS: PCP Internal Medicine; Visit Provider Urology
DX: C61 Malignant neoplasm of prostate (principal); Z19.1 Hormone sensitive malignancy status

== ENCOUNTER → 2024-07-31 11:31 | Outpatient (BNVA) | payer MEDICARE, MEDICAID, SELFPAY | PROVIDERS: PCP Internal Medicine; Visit Provider Urology | DX: C61 Malignant neoplasm of prostate (principal); Z19.1 Hormone sensitive malignancy status; Z51.11 Encounter for antineoplastic chemotherapy | CPT/HCPCS: 96402; J9217 ==

== ENCOUNTER 2024-10-09 12:44 | Outpatient (REF) | payer MEDICARE, MEDICAID, SELFPAY ==
[2024-10-09 14:25] LABS: PSA,Total (Free>4and<10) < 0.10 ng/mL (0.00-4.00)
[2024-10-13 17:48] LABS: Testosterone, Total 8 ng/dL (250-1100)
== END 2024-10-09 12:45 | disposition home or self-care (01) ==
LOC: HO.LAB 12:44
PROVIDERS: PCP Internal Medicine; Visit Provider Urology
DX: C61 Malignant neoplasm of prostate (principal); Z19.1 Hormone sensitive malignancy status; Z12.5 Encounter for screening for malignant neoplasm of prostate
CPT/HCPCS: 36415; 84153; 84403

== ENCOUNTER 2024-10-16 09:04 | Outpatient (AMB) | payer MEDICARE, MEDICAID, SELFPAY ==
--- NOTE | 2024-10-16 09:05 | A.OFFVIS_ITS ---
Intake Visit Reasons: 3M PSA/Testo(Pending) Intake Note: Patient is present for 3M PSA/TESTO Urology Medication:FINASTERIDE.TAMSULOSIN Antibiotic Allergy:AZITHROMYCIN Blood Thinner:NONE Home Care Music Therapist Required: No Allergies azithromycin [AZITHROMYCIN] Allergy (Unknown, Verified 10/16/24 09:07) UNKOWN Macrolide Antibiotics [MACROLIDE ANTIBIOTICS] Allergy (Unknown, Verified 10/16/24 09:07) unknown Macrolides and ketolides Allergy (Unknown, Uncoded 10/16/24 09:07) Unknown HPI Comments Details: Wilfredo is a very pleasant male. He is a resident of a senior living he is seen for the following urologic conditions - BPH - elevated PSA - Prostate cancer Good response to hormones Will complete bone scan 10/23 PSA <0.1 T 8 Scanning not complete Discussion with healthcare proxy Sharmin - [phone] Prostate cancer - high-risk 06/23 Multi core biopsy PSA 8.5 High-risk core Histologic type: Acinar adenocarcinoma Histologic grade: Ingalls score: 3+3=6 (E & F); 3+4=7 (A, B, D); 4+5=9 (C) % of pattern 4: 10-90% (A,B,C,D) % of pattern 5: 10% (C) Grade group: 1 (E & F); 2 (A, B, D); 5 (C) Tumor quantitation: Number cores positive: 6 Total number of cores: 12 % of tissue involved: See above for details Periprostatic fat inv.: Not identified Seminal vesicle inv.: Not identified Perineural inv.: Present LVI: Not identified Plan for intermittent hormone therapy and staging PFSH Medical History HTN (hypertension) BPH (benign prostatic hyperplasia) Barretts syndrome GERD (gastroesophageal reflux disease) [place] (hard of hearing) Non-verbal learning disorder Social History Household Members: None Household Members Other:: From senior living Housing: Unknown / Unable to assess Housing Other:: [facility] Do you presently have visiting nurse or other home services: Yes (detention) Unable to assess alcohol history related to: Unable to respond and Unknown 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 Patient Tobacco Use Status: Never used Tobacco Advance Directives Date on File: 01/09/24 service: No Current occupational status: disabled Review of Systems Const Denies chills and Denies fever(s) Card Reports no additional complaints and Denies syncope Resp Denies cough GI Denies abdominal pain and Denies heartburn Reports as per HPI and Denies change in libido Neuro Denies syncope Psych Denies change in libido Endo Denies change in libido Physical Exam Const General: cooperative, healthy appearing, comfortable and no acute distress Orientation/consciousness: patient oriented x3 HEENT Face and sinus: Yes normal facial exam Mouth: moist mucous membranes Neck Neck: Yes normal visual inspection, Yes full ROM and Yes trachea midline Chest Chest palpation & inspection: normal inspection of the chest Resp Effort & Inspection: normal respiratory effort, able to speak in complete sentences and no respiratory distress GI Inspection: Yes normal to inspection Back/Spine/Pelvis Cervical Spine: normal cervical lordosis Thoracic/Lumbar Spine: thoracic and lumbar spine normal to inspection Skin General skin exam: no rashes or lesions noted Neuro General: patient oriented x3, gait normal, tone normal and moves all extremities Extrem General: Yes normal to inspection and Yes capillary refill normal Assessment & Plan Assessment & Plan (1) Hormone sensitive prostate cancer: Code(s): C61 - Malignant neoplasm of prostate; Z19.1 - Hormone sensitive malignancy status Category: Medical (2) Nocturia more than twice per night: Code(s): R35.1 - Nocturia Category: Medical Plan Three-month follow-up imaging and lab work Orders: Orders NM bone scan whole body 3 Months C61 - Malignant neoplasm of prostate, Z19.1 - Hormone sensitive malignancy status Prostate Specific Antigen 3 Months C61 - Malignant neoplasm of prostate, Z19.1 - Hormone sensitive malignancy status Testosterone, Total 3 Months C61 - Malignant neoplasm of prostate, Z19.1 - Hormone sensitive malignancy status Patient Instructions: Imaging studies, laboratory and physical exam results were discussed and reviewed in detail. No major barriers to patient understanding were identified. An opportunity to ask questions regarding the treatment plan was provided. All questions were answered. The patient expressed understanding and agreement with the above treatment plan. The patient is aware they should contact our office by phone for worsening of their current condition or the appearance of new urologic symptoms. Compliance is encouraged with any medications and followup testing that is ordered. It is a privilege to participate in the urologic care of your patient. If you have any questions or concerns regarding treatment for the above conditions, or other urologic issues, please do not hesitate to contact me. The office telephone contact is [phone]. This note is constructed using voice recognition software. While every effort has been made to ensure accuracy wet and dry sugar bin operator errors may have been included. Yours sincerely, Dr Lucien Arriaga MD, [facility]AN[facility] - Urology Providers of Expert, Compassionate Care for the Genitourinary System Coding Level of Care Code Est Pt Level 3 (27000) Diagnoses Hormone sensitive prostate cancer C61; Z19.1 Nocturia more than twice per night R35.1
== END 2024-10-16 10:46 | disposition home or self-care (01) ==
PROVIDERS: PCP Internal Medicine; Visit Provider Urology
DX: C61 Malignant neoplasm of prostate (principal); Z19.1 Hormone sensitive malignancy status; R35.1 Nocturia
CPT/HCPCS: 99213

== ENCOUNTER → 2024-10-16 09:04 | Outpatient (BNVA) | payer MEDICARE, MEDICAID, SELFPAY | PROVIDERS: PCP Internal Medicine; Visit Provider Urology | DX: C61 Malignant neoplasm of prostate (principal); R35.1 Nocturia; Z19.1 Hormone sensitive malignancy status | CPT/HCPCS: 99212 ==

== ENCOUNTER 2024-11-13 08:52 | Outpatient (REF) | payer MEDICARE, MEDICAID, SELFPAY ==
--- NOTE | ~2024-11-13 | PE_ITS ---
EXAMINATION: FLUORINE-18 FDG PET/CT SCAN CLINICAL INFORMATION: Malignant neoplasm of prostate. Elevated PSA. TECHNIQUE: 45 minutes following the intravenous administration of 3.8 mCi of gadolinium 68 gozetotide(Illuccix}, images from the skull base to mid thigh were obtained using a combined PET/CT scanner with CT scan based attenuation correction. No intravenous contrast was administered. Transverse, coronal, sagittal, and volume reconstruction projections were obtained. The radiotracer was injected intravenously through right hand, without any complications. Total CT exam dose-length product 554.17 mGy-cm. * These CT images were obtained using dose optimization techniques as appropriate, variously including the following: Automated exposure control * Adjustment of mA and/or kV according to patient size (this includes techniques or standardized protocols for targeted exams where dose is matched to indication/reason for exam; i.e. extremities or head) * Use of iterative reconstruction technique COMPARISON: CT abdomen and pelvis without IV contrast 04/22/2024 FINDINGS: HEAD AND NECK: No abnormal radiotracer uptake. Normal activity seen in lacrimal and salivary glands No large intracranial hemorrhage, acute territorial infarct or significant shift of midline structures. CHEST: Ports and Devices: None Lungs: No abnormal radiotracer uptake. Pleura: There is bilateral dependent bibasilar posterior pleural thickening. Lymph Nodes: No tracer-avid mediastinal, hilar or internal mammary or axillary lymphadenopathy. Mediastinum: There is no significant pericardial effusion/thickening. Breasts/Chest Wall: No abnormal radiotracer uptake. ABDOMEN/PELVIS: Liver/Biliary System: No focal tracer-avid liver lesion. The gallbladder appears unremarkable. Pancreas: Normal.No pancreatic ductal dilatation Spleen: No abnormal radiotracer uptake. No evidence of splenomegaly. Adrenal Glands: No abnormal radiotracer uptake. Kidneys: No hydronephrosis, hydroureter or renal calculi bilaterally. Nonenhancing exophytic lobulated Bosniak type II septated cyst lower pole right kidney is noted. There is small exophytic cyst mid pole left kidney as well. Bowel: There is there is nonspecific bowel gas activities in the third segment of the duodenum in the right colon. No corresponding abnormality seen on CT these regions. There is moderate stool throughout the colon. Lymph Nodes: No tracer avid retroperitoneal, mesenteric or pelvic and/or groin lymphadenopathy. Pelvic Organs: The urinary bladder is underdistended. The prostate gland is small with dystrophic calcification. There is moderate metabolic activity seen along the posterior lobe of prostate gland likely site of tumor. MUSCULOSKELETAL: Mild DJD lumbar spine. No abnormal metabolic activity seen in the osseous structures to suspect any metastatic bases. VASCULAR: Mild sclerosis abdominal aorta and common iliac arteries. No aneurysmal dilatation. PET/PET CT fusion skull to thigh IMPRESSION: Mild metabolic activity seen in the posterior lobe of prostate gland likely site of primary prostate lesion.. No abnormal metabolic activity seen in retroperitoneum or pelvis to suspect metastatic adenopathy. No abnormal activity in whole-body skeletal system to suspect bony metastases. Bilateral complex exophytic right renal cyst in likely simple exophytic small left renal cyst. Moderate constipation. Electronically signed by: Xavi Bergeron MD 11/22/2024 03:04 PM MAUREEN
== END 2024-11-13 08:53 | disposition home or self-care (01) ==
LOC: HO.PET 08:52
PROVIDERS: PCP Internal Medicine; Visit Provider Urology
DX: Z13.89 Encounter for screening for other disorder (principal)

== ENCOUNTER 2024-12-18 13:25 | Outpatient (REF) | payer MEDICARE, MEDICAID, SELFPAY ==
--- OUTSIDE RECORDS SUMMARY | 2024-12-18 14:23 | XMS_ITS | Patient Health Record ---
Author Organization [facility] Address [address] [place] [address] Care Team Providers Care Linoleum Mechanic Name Role Phone La MADISON, Brandon Primary Care Provider Marques Riggs Jr, Luiz Obrien RESULTS Component Value Reference Range Notes Pathology Reviewed date:04/27/2024 04:22:54 PM Interpretation: Performing Lab:[facility], [address] [place] [id number] Notes/Report: REASON FOR REFERRAL No Information SOCIAL HISTORY Sex Assigned At : Social History Observation Description Sex Assigned At Unknown PROBLEMS Problem Type ICD Code Onset Dates Problem Status W/U Status Risk SNOMED Code Notes 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 [address] [place] [phone] [id number] JOHAN CRISOSTOMO Self - patient is the insured
--- OUTSIDE RECORDS SUMMARY | 2024-12-18 14:23 | XMS_ITS ---
Author Organization [facility] Address [address] [place] [phone] Care Team Providers Care Shearing Machine Operator Name Role Phone Brandon Tovar MD Primary Care Provider Marques Riggs Jr, Luiz Obrien [phone] REASON FOR VISIT pathology Encounters Encounter Location Date Provider Diagnosis [facility] [address] [place] [phone] 04/27/2024 Luiz Riggs Jr PLAN OF TREATMENT No Information
[2024-12-18 15:10] LABS: Prostate Specific Antigen < 0.10 ng/mL (<0.05-4.0)
[2024-12-23 13:32] LABS: Testosterone, Total 6 ng/dL (250-1100)
== END 2024-12-18 13:26 | disposition home or self-care (01) ==
LOC: HO.LAB 13:25
PROVIDERS: PCP Internal Medicine; Visit Provider Urology
DX: C61 Malignant neoplasm of prostate (principal); Z19.1 Hormone sensitive malignancy status; Z12.5 Encounter for screening for malignant neoplasm of prostate
CPT/HCPCS: 36415; 84153; 84403

== ENCOUNTER 2025-01-15 09:58 | Outpatient (AMB) | payer MEDICARE, MEDICAID, SELFPAY ==
--- NOTE | 2025-01-15 10:17 | AM.OFFVISNUR ---
Intake Visit Reasons: GnRH Allergies azithromycin [AZITHROMYCIN] Allergy (Unknown, Verified 10/16/24 09:07) UNKOWN Macrolide Antibiotics [MACROLIDE ANTIBIOTICS] Allergy (Unknown, Verified 10/16/24 09:07) unknown Macrolides and ketolides Allergy (Unknown, Uncoded 10/16/24 09:07) Unknown Office Meds Eligard (6 month) 45 mg (6 month) subcutaneous syringe Performing Provider: Lucien Arriaga MD Performing Location[facility] Administered by: Brendon Trevino LPN on 01/15/25 10:17 Dose Route Admin Location Dispensed Lot Number Expiration Date [facility] Warehouse Supervisor 3Rd Shift 45 mg subcut left arm 45 mg [id number] 03/31/26 88458-126-29 [employer]. Assessment & Plan Assessment & Plan Orders: Orders AMB Leuprolide Injection - Practice Supplied Today C61 - Malignant neoplasm of prostate, Z19.1 - Hormone sensitive malignancy status Medications: New Eligard (6 month) (leuprolide acetate (6 month)) 45 mg subcut ONCE 1 ea 0RF NS C61 - Malignant neoplasm of prostate, Z19.1 - Hormone sensitive malignancy status Coding
--- OUTSIDE RECORDS SUMMARY | 2025-01-15 11:18 | XMS_ITS | Patient Health Record ---
Author Organization [facility] Address [address] [place] [phone] Care Team Providers Care Project Admin Name Role Phone La MADISON, Bhaskar Primary Care Provider Luiz Negro Jr Results Component Value Reference Range Notes Pathology Reviewed date:04/27/2024 04:22:54 PM Interpretation: Performing Lab:[facility], [address] [place] [phone] Notes/Report: Name: Johan Sands Age/Sex: 73/M : 1950 Unit#: [id number] Attend Dr: John Kern MD Re04/23/24 Status : ADM IN Location: [facility] 347-1 Disch: SPEC : [id number] RECD : 04/25/24-09 STATUS: JONY ARIAS NUM: [id number] MEAGHAN: 04/24/24-[address]: Luiz Riggs MD ENTERED: 04/25/24-07 14 SP TYPE: Surgical OTHR DR: BHASKAR FREEMAN MD, Theodore MD ORDERED: HE Stain/3, Gross Micro L4, IHC, Special st. 2, H. pylori, AB/PAS Diagnosis Gastric antrum, biop sy: Gastric antral mucosa with minimal chronic inactive gastritis; negative for H pylor i, intestinal metaplasia and dysplasia. Clinical History Pre-Op Dx: Abnormal CT scan stomach Post-Op Dx: Hiatal h ernia, otherwise normal EGD Microscopic Description Microscopic sections reviewed. Immunostain for H. pylori is negative. AB/PAS is negative for intestinal metap lasia. Controls stain appropriately. Material Received Antral bx's Gross Description Received in formalin labeled ?antral bx's? are 2 mcclellan irregular tissue fragments measuring 0.2 and 0.35 cm, sub mitted in toto in a cassette labeled A. CEDS Special studies orde red and performed: Immunostain for H. pylori on A1; AB/PAS stains on A1. Copies To: Luiz Riggs MD [facility] [address] [place] [address] [address] [place] [address] BHASKAR FREEMAN MD [address] [place] [address] CONTINUED ON NEXT PAGE Name: Johan Sands Age/Sex: 73/M : 1950 Unit#: [id number] Attend Dr: John Kern MD Re04/23/24 Status : ADM IN Location: [facility] 347-1 Disch: SPEC : [id number] RECD : 04/25/24 STATUS: JONY ARIAS NUM: [id number] MEAGHAN: 04/24/24-[address]: Luiz Riggs MD ENTERED: 04/25/24-07 14 SP TYPE: Surgical OTHR DR: BHASKAR FREEMAN MD, Theodore MD ORDERED: HE Stain/3, Gross Micro L4, IHC, Special st. 2, H. 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
--- OUTSIDE RECORDS SUMMARY | 2025-01-15 11:18 | XMS_ITS ---
Author Organization [facility] Address [address] [place] [phone] Care Team Providers Care Geothermal Powerplant Supervisor Name Role Phone Brandon Tovar MD Primary Care Provider Marques Riggs Jr, Luiz Obrien [phone] REASON FOR VISIT pathology Encounters Encounter Location Date Provider Diagnosis [facility] [address] [place] [phone] 04/27/2024 Luiz Riggs Jr Plan Of Treatment No Information Progress Notes * JOHAN CRISOSTOMODOB:1950 ( 73 yo M)Acc No.[id number]:04/27/2024 Patient:?JOHAN CRISOSTOMO :1950???Age:73 Y???Sex:Male Address:[address] [place] [address], [facility] [place], [address] * true * Date:? Generated for Ciarra lowe/Sariah/eTransmitting on:?01/15/2025 11:17 AM EDT
== END 2025-01-15 10:20 | disposition home or self-care (01) ==
PROVIDERS: PCP Internal Medicine; Visit Provider Urology
DX: C61 Malignant neoplasm of prostate (principal); Z19.1 Hormone sensitive malignancy status

== ENCOUNTER → 2025-01-15 09:58 | Outpatient (BNVA) | payer MEDICARE, MEDICAID, SELFPAY | PROVIDERS: PCP Internal Medicine; Visit Provider Urology | DX: C61 Malignant neoplasm of prostate (principal); Z19.1 Hormone sensitive malignancy status | CPT/HCPCS: 96402; J9217 ==

== ENCOUNTER → 2025-01-16 09:56 | Outpatient (REF) | payer MEDICARE, MEDICAID, SELFPAY ==
--- NOTE | ~2025-01-16 | NM_ITS ---
EXAMINATION: NM BONE SCAN OF THE WHOLE BODY CLINICAL INFORMATION: Hormone sensitive malignancy. COMPARISON: PET/CT fusion 11/13/2024. TECHNIQUE: Multiple gamma scintillation camera images of the whole body were performed 3 hours following the intravenous administration of 25 mCi Tc-99m MDP. FINDINGS: In the head, no abnormal bone activity seen. In the thoracic cage and upper extremities, there are multiple areas of focal activity seen along the anterior costochondral junctions involving left 3, fourth 7, eighth, ninth and 10th ribs. In addition there is focal area of isotope activity along the left anterolateral third, fourth and sixth ribs suggestive of traumatic injury. No additional areas of abnormal activity seen in the bony thorax In the spine, . No abnormal activity seen in the entire spine except for mild DJD likely of the right L4-5 facet joint. In the pelvis, nonspecific mild activity seen along the lateral aspect of greater trochanter left slightly greater than right. In the lower extremities, mild focal activity seen in mid foot both feet and right ankle joint suggestive arthritic changes. Mild activity seen in bilateral knee joints as well. No other definite bony abnormalities are noted. The urinary bladder and faint visualization of both kidneys are noted. NM/NM bone scan whole body IMPRESSION: No suspicion for metastatic bone disease. There are traumatic fractures left upper ribs and left anterior costochondral junction. Mild DJD bilateral mid foot, right ankle mortise and and minimal DJD bilateral knee joints. Mild DJD right L4-5 facet joint. Nonspecific activity along bilateral greater trochanters question bursitis left greater than right. Electronically signed by: Xavi Bergeron MD 01/16/2025 03:31 PM EDT
--- OUTSIDE RECORDS SUMMARY | 2025-01-16 11:21 | XMS_ITS | Patient Health Record ---
Author Organization [facility] Address [address] [place] [phone] Care Team Providers Care Embalmer Assistant Name Role Phone La MADISON, Bhaskar Primary Care Provider Luiz Negro Jr [phone] Results Component Value Reference Range Notes Pathology Reviewed date:04/27/2024 04:22:54 PM Interpretation: Performing Lab:[facility], [address] [place] [phone] Notes/Report: Name: Johan Sands Age/Sex: 73/M : 1950 Unit#: [id number] Attend Dr: John Kern MD Re04/23/24 Status : ADM IN Location: [facility] 347-1 Disch: SPEC : [id number] RECD : 04/25/24-09 STATUS: JONY ARIAS NUM: [id number] MEAGHAN: 04/24/24-[address]: Luiz Riggs MD [...] on A1. Copies To: Luiz Riggs MD [facility] [address] [place] [address] [address] [place] [address] BHASKAR FREEMAN MD [address] [place] [address] CONTINUED ON NEXT PAGE Name: Johan Sands Age/Sex: 73/M : 1950 Unit#: [id number] Attend Dr: John Kern MD Re04/23/24 Status : ADM IN Location: [facility] 347-1 Disch: SPEC : [id number] RECD : 04/25/24 STATUS: JONY ARIAS NUM: [id number] MEAGHAN: 04/24/24-[address]: Luiz Riggs MD ENTERED: 04/25/24-07 14 SP TYPE: Surgical OTHR DR: BHASKAR FREEMAN MD, Theodore MD ORDERED: HE Stain/3, Gross Micro L4, IHC, Special st. 2, H. 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
--- OUTSIDE RECORDS SUMMARY | 2025-01-16 11:21 | XMS_ITS ---
Author Organization [facility] Address [address] [place] [phone] Care Team Providers Care Laborer Aquatic Life Name Role Phone Brandon Tovar MD Primary Care Provider Marques Riggs Jr, Luiz Obrien REASON FOR VISIT pathology Encounters Encounter Location Date Provider Diagnosis [facility] [address] [place] [phone] 04/27/2024 Luiz Riggs Jr Plan Of Treatment No Information Progress Notes * JOHAN CRISOSTOMODOB:1950 ( 73 yo M)Acc No.[id number]:04/27/2024 Patient:?JOHAN CRISOSTOMO :1950???Age:73 Y???Sex:Male Address:[address] [place] [address], [facility] [place], [address] * true * Date:? Generated for Ciarra lowe/Sariah/eTransmitting on:?01/16/2025 11:21 AM EDT
== END ==
LOC: HO.NUCMED 09:56
PROVIDERS: PCP Internal Medicine; Visit Provider Urology
DX: C61 Malignant neoplasm of prostate (principal); Z19.1 Hormone sensitive malignancy status
CPT/HCPCS: 78306; A9503

== ENCOUNTER → 2025-01-16 09:59 | Outpatient (BNV) | payer MEDICARE, MEDICAID, SELFPAY | PROVIDERS: PCP Internal Medicine; Visit Provider Radiology Diagnostic Radiology | DX: Z19.1 Hormone sensitive malignancy status (principal) | CPT/HCPCS: 78306 ==

== ENCOUNTER 2025-01-29 10:54 | Outpatient (AMB) | payer MEDICARE, MEDICAID, SELFPAY ==
--- NOTE | 2025-01-29 10:55 | MHC.OFFVIS ---
Intake Visit Reasons: 3m/Bonescan/labs Intake Note: Patient is present for 3M/BONESCAN/LABS Urology Medication:FINASTERIDE,TAMSULOSIN Antibiotic Allergy:AZIOTHROMYCIN Blood Thinner:NONE TODAY'S PVR:24ML'S New Accounts Clerk Required: No Allergies azithromycin [AZITHROMYCIN] Allergy (Unknown, Verified 04/02/25 10:47) UNKOWN Macrolide Antibiotics [MACROLIDE ANTIBIOTICS] Allergy (Unknown, Verified 04/02/25 10:47) unknown Macrolides and ketolides Allergy (Unknown, Uncoded 04/02/25 10:47) Unknown HPI Comments Details: Wilfredo is a very pleasant male. He is a resident of a skilled nursing he is seen for the following urologic conditions - BPH - elevated PSA - Prostate cancer Good response to hormones Will complete bone scan 01/22 -PSA <0.1 T 6 10/23 PSA <0.1 T 8 GnRH 08/23, 01/22 Staging - PET-CT 11/24 Mild metabolic activity seen in the posterior lobe of prostate gland likely site of primary prostate lesion..No abnormal metabolic activity seen in retroperitoneum or pelvis to suspect metastatic adenopathy. - Bone Scan 01/22 No suspicion for metastatic bone disease Discussion with healthcare proxy Sharmin - [phone] Prostate cancer - high-risk 06/23 Multi core biopsy PSA 8.5 High-risk core Histologic type: Acinar adenocarcinoma Histologic grade: Reyna score: 3+3=6 (E & F); 3+4=7 (A, B, D); 4+5=9 (C) % of pattern 4: 10-90% (A,B,C,D) % of pattern 5: 10% (C) Grade group: 1 (E & F); 2 (A, B, D); 5 (C) Tumor quantitation: Number cores positive: 6 Total number of cores: 12 % of tissue involved: See above for details Periprostatic fat inv.: Not identified Seminal vesicle inv.: Not identified Perineural inv.: Present LVI: Not identified Plan for intermittent hormone therapy and staging PFSH Medical History HTN (hypertension) BPH (benign prostatic hyperplasia) Barretts syndrome GERD (gastroesophageal reflux disease) [place] (hard of hearing) Non-verbal learning disorder Social History Household Members: None Household Members Other:: From skilled nursing Housing: Unknown / Unable to assess Housing Other:: Skilled Nursing Do you presently have visiting nurse or other home services: Yes (half-way) Unable to assess alcohol history related to: Unable to respond and Unknown 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 Patient Tobacco Use Status: Never used Tobacco Advance Directives Date on File: 01/09/24 service: No Current occupational status: disabled Review of Systems Const Denies chills and Denies fever(s) Card Reports no additional complaints and Denies syncope Resp Denies cough GI Denies abdominal pain and Denies heartburn Reports as per HPI and Denies change in libido Neuro Denies syncope Psych Denies change in libido Endo Denies change in libido Physical Exam Const General: cooperative, healthy appearing, comfortable and no acute distress Orientation/consciousness: patient oriented x3 HEENT Face and sinus: Yes normal facial exam Mouth: moist mucous membranes Neck Neck: Yes normal visual inspection, Yes full ROM and Yes trachea midline Chest Chest palpation & inspection: normal inspection of the chest Resp Effort & Inspection: normal respiratory effort, able to speak in complete sentences and no respiratory distress GI Inspection: Yes normal to inspection Back/Spine/Pelvis Cervical Spine: normal cervical lordosis Thoracic/Lumbar Spine: thoracic and lumbar spine normal to inspection Skin General skin exam: no rashes or lesions noted Neuro General: patient oriented x3, gait normal, tone normal and moves all extremities Extrem General: Yes normal to inspection and Yes capillary refill normal Office Procedures Post Void Residual Post Residual Void Post Void Residual (PVR): 24 [id number]-[id number] Void Residual by ultrasound Assessment & Plan Assessment & Plan (1) Lower urinary tract symptoms due to benign prostatic hyperplasia: Code(s): N40.1 - Benign prostatic hyperplasia with lower urinary tract symptoms Category: Medical (2) Hormone sensitive prostate cancer: Code(s): C61 - Malignant neoplasm of prostate; Z19.1 - Hormone sensitive malignancy status Category: Medical Plan Six-month follow-up Orders: Orders Prostate Specific Antigen 6 Months C61 - Malignant neoplasm of prostate, Z19.1 - Hormone sensitive malignancy status Testosterone, Total 6 Months C61 - Malignant neoplasm of prostate, Z19.1 - Hormone sensitive malignancy status Medications: New terazosin 10 mg PO BEDTIME 30 caps 2RF Discontinued tamsulosin This is an increase in dose Can take 0.8 mg at bedtime or 0.4 mg b.i.d. Discontinued Reason: Doctor's Order 0.8 mg (2 x 0.4 mg) PO BEDTIME 90 days 180 caps 3RF Patient Instructions: This note is constructed using voice recognition software. While every effort has been made to ensure accuracy information systems technician errors may have been included. Imaging studies, laboratory and physical exam results were discussed and reviewed in detail. No major barriers to patient understanding were identified. An opportunity to ask questions regarding the treatment plan was provided. All questions were answered. The patient expressed understanding and agreement with the above treatment plan. The patient is aware they should contact our office by phone for worsening of their current condition or the appearance of new urologic symptoms. Compliance is encouraged with any medications and followup testing that is ordered. It is a privilege to participate in the urologic care of your patient. If you have any questions or concerns regarding treatment for the above conditions, or other urologic issues, please do not hesitate to contact me. The office telephone contact is [phone]. Sincerely, Dr Lucien Arriaga MD, [facility] - Urology Compassionate Specialist Care for the Genitourinary System Coding Level of Care Code Est Pt Level 4 (75107) Complex EM visit Add On G2211 Diagnoses Lower urinary tract symptoms due to benign prostatic hyperplasia N40.1 Hormone sensitive prostate cancer C61; Z19.1 CPT Codes Post Residual Void - PVR CPT Code: 15443-Ztza Void Residual by ultrasound ([id number])
--- OUTSIDE RECORDS SUMMARY | 2025-01-29 13:06 | XMS_ITS | Patient Health Record ---
Author Organization [facility] Aleksandr ryan Mirandafrancesco Address [address] [place] [phone] Care Team Providers Care Curator Herbarium Name Role Phone La MADISON, hBaskar Primary Care Provider Luiz Negro Jr Results Component Value Reference Range Notes Pathology Reviewed date:04/27/2024 04:22:54 PM Interpretation: Performing Lab:[facility], [address] [place] [phone] Notes/Report: Name: Johan Sands Age/Sex: 73/M : 1950 Unit#: [id number] Attend Dr: John Kern MD Re04/23/24 Status : ADM IN Location: [facility] 347-1 Disch: SPEC : [id number] RECD : 04/25/24-09 STATUS: JONY ARIAS NUM: [id number] MEAGHAN: 04/24/24-[address]: Luiz Riggs MD [...] on A1. Copies To: Luiz Riggs MD [facility] [address] [place] [address] [address] [place] [address] BHASKAR FREEMAN MD [address] [place] [address] CONTINUED ON NEXT PAGE Name: Johan Sands Age/Sex: 73/M : 1950 Unit#: [id number] Attend Dr: John Kern MD Re04/23/24 Status : ADM IN Location: [facility] 347-1 Disch: SPEC : [id number] RECD : 04/25/24 STATUS: JONY ARIAS NUM: [id number] MEAGHAN: 04/24/24-[address]: Luiz Riggs MD ENTERED: 04/25/24-07 14 SP TYPE: Surgical OTHR DR: BHASKAR FREEMAN MD, Theodore MD ORDERED: HE Stain/3, Gross Micro L4, IHC, Special st. 2, H. 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
--- OUTSIDE RECORDS SUMMARY | 2025-01-29 13:06 | XMS_ITS ---
Author Organization [facility] Address [address] [place] [phone] Care Team Providers Care Temp Recruiter Name Role Phone Brandon Tovar MD Primary Care Provider Marques Riggs Jr, Luiz Obrien REASON FOR VISIT pathology Encounters Encounter Location Date Provider Diagnosis [facility] [address] [place] [phone] 04/27/2024 Luiz Riggs Jr Plan Of Treatment No Information Progress Notes * JOHAN CRISOSTOMODOB:1950 ( 73 yo M)Acc No.[id number]:04/27/2024 Patient:?JOHAN CRISOSTOMO :1950???Age:73 Y???Sex:Male Address:[address] [place] [address], [place], [address] * true * Date:? Generated for Ciarra lowe/Sariah/eTransmitting on:?01/29/2025 01:06 PM EDT
== END 2025-01-29 11:51 | disposition home or self-care (01) ==
LOC: HO.HUSH 10:54
PROVIDERS: PCP Internal Medicine; Visit Provider Urology
DX: N40.1 Benign prostatic hyperplasia with lower urinary tract symptoms (principal); C61 Malignant neoplasm of prostate; Z19.1 Hormone sensitive malignancy status
CPT/HCPCS: 99214; G2211

== ENCOUNTER → 2025-01-29 10:54 | Outpatient (BNVA) | payer MEDICARE, MEDICAID, SELFPAY | PROVIDERS: PCP Internal Medicine; Visit Provider Urology | DX: N40.1 Benign prostatic hyperplasia with lower urinary tract symptoms (principal); C61 Malignant neoplasm of prostate; Z19.1 Hormone sensitive malignancy status | CPT/HCPCS: 51798; 99212 ==

== ENCOUNTER 2025-04-02 10:45 | Outpatient (AMB) | payer MEDICARE, MEDICAID, SELFPAY ==
--- NOTE | 2025-04-02 10:46 | A.OFFVIS_ITS ---
Intake Visit Reasons: 2M follow up Intake Note: Patient is present for 2M F/U Urology Medication:FINASTERIDE,TERAZOSIN Antibiotic Allergy:AZITHROMYCIN Blood Thinner:NONE Certified Tumor Registrar Required: No Allergies azithromycin [AZITHROMYCIN] Allergy (Unknown, Verified 04/02/25 10:47) UNKOWN Macrolide Antibiotics [MACROLIDE ANTIBIOTICS] Allergy (Unknown, Verified 04/02/25 10:47) unknown Macrolides and ketolides Allergy (Unknown, Uncoded 04/02/25 10:47) Unknown HPI Comments Details: Wilfredo is a very pleasant male. He is a resident of a shelter he is seen for the following urologic conditions - BPH - elevated PSA - Prostate cancer Telemedicine Evaluation 15 min Consultation [facility] Discussed with the staff Continue good response to hormones Marginal benefit from use of terazosin for urination Review in July with [facility] 01/22 -PSA <0.1 T 6 10/23 PSA <0.1 T 8 GnRH 08/23, 01/22 Staging - PET-CT 11/24 Mild metabolic activity seen in the posterior lobe of prostate gland likely site of primary prostate lesion..No abnormal metabolic activity seen in retroperitoneum or pelvis to suspect metastatic adenopathy. - Bone Scan 01/22 No suspicion for metastatic bone disease Discussion with healthcare proxy Sharmin - [phone] Prostate cancer - high-risk 06/23 Multi core biopsy PSA 8.5 High-risk core Histologic type: Acinar adenocarcinoma Histologic grade: [place] score: 3+3=6 (E & F); 3+4=7 (A, B, D); 4+5=9 (C) % of pattern 4: 10-90% (A,B,C,D) % of pattern 5: 10% (C) Grade group: 1 (E & F); 2 (A, B, D); 5 (C) Tumor quantitation: Number cores positive: 6 Total number of cores: 12 % of tissue involved: See above for details Periprostatic fat inv.: Not identified Seminal vesicle inv.: Not identified Perineural inv.: Present LVI: Not identified Plan for intermittent hormone therapy and staging PFSH Medical History HTN (hypertension) BPH (benign prostatic hyperplasia) Barretts syndrome GERD (gastroesophageal reflux disease) [place] (hard of hearing) Non-verbal learning disorder Social History Household Members: None Household Members Other:: From shelter Housing: Unknown / Unable to assess Housing Other:: [facility] Do you presently have visiting nurse or other home services: Yes (senior living) Unable to assess alcohol history related to: Unable to respond and Unknown 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 Patient Tobacco Use Status: Never used Tobacco Advance Directives Date on File: 01/09/24 service: No Current occupational status: disabled Review of Systems Const All systems reviewed & are unremarkable except as noted in HPI and below Reports no additional complaints Resp Reports no additional complaints GI Reports no additional complaints Reports as per HPI Musc Reports no additional complaints Physical Exam Telemedicine evaluation Appropriate responses Regular breathing rate and rhythm HEENT Head: Yes normal to inspection Ears: hearing grossly normal bilaterally Eyes General: appearance normal, both eyes and all related structures Neck Neck: Yes normal visual inspection Chest Chest palpation & inspection: normal inspection of the chest Resp Effort & Inspection: normal respiratory effort and able to speak in complete sentences Telehealth Telehealth Location of provider rendering services: practice address Location of patient: address on file Patient Identification confirmed using: Name, : Yes Telehealth method: voice only Patient verbally consented to treatment: Yes Patient verbally consented to billing insurance company: Yes Patient informed of any privacy concerns related to visit: Yes Assessment & Plan Assessment & Plan (1) Lower urinary tract symptoms due to benign prostatic hyperplasia: Code(s): N40.1 - Benign prostatic hyperplasia with lower urinary tract symptoms Category: Medical (2) Hormone sensitive prostate cancer: Code(s): C61 - Malignant neoplasm of prostate; Z19.1 - Hormone sensitive malignancy status Category: Medical Plan Keep six-month appointment for lab work and GnRH Medications: Changed From terazosin 10 mg PO BEDTIME 30 caps 2RF To terazosin 10 mg PO BEDTIME 90 days 90 caps 1RF Patient Instructions: This note is constructed using voice recognition software. While every effort has been made to ensure accuracy business systems developer errors may have been included. Imaging studies, laboratory and physical exam results were discussed and reviewed in detail. No major barriers to patient understanding were identified. An opportunity to ask questions regarding the treatment plan was provided. All questions were answered. The patient expressed understanding and agreement with the above treatment plan. The patient is aware they should contact our office by phone for worsening of their current condition or the appearance of new urologic symptoms. Compliance is encouraged with any medications and followup testing that is ordered. It is a privilege to participate in the urologic care of your patient. If you have any questions or concerns regarding treatment for the above conditions, or other urologic issues, please do not hesitate to contact me. The office telephone contact is [phone]. Sincerely, Dr Lucien Arriaga MD, [facility] - Urology Compassionate Specialist Care for the Genitourinary System Coding Level of Care Code Tele Est Pt Level 3 (16163) Complex EM visit Add On G2211 Diagnoses Lower urinary tract symptoms due to benign prostatic hyperplasia N40.1 Hormone sensitive prostate cancer C61; Z19.1
--- OUTSIDE RECORDS SUMMARY | 2025-04-02 12:24 | XMS_ITS ---
Author Organization [facility] Address [address] [place] [phone] Care Team Providers Care Technical Information Specialist Name Role Phone Brandon Tovar MD Primary Care Provider Marques Riggs Jr, Luiz Obrien REASON FOR VISIT pathology Encounters Encounter Location Date Provider Diagnosis [facility] [address] [place] [phone] 04/27/2024 Luiz Riggs Jr Plan Of Treatment No Information Progress Notes * JOHAN CRISOSTOMODOB:1950 ( 73 yo M)Acc No.[id number]:04/27/2024 Patient:?JOHAN CRISOSTOMO :1950???Age:73 Y???Sex:Male Address:[address] [place] [address], [facility] [place], [address] * true * Date:? Generated for Ciarra lowe/Sariah/eTransmitting on:?04/02/2025 12:24 PM EDT
== END 2025-04-02 12:28 | disposition home or self-care (01) ==
LOC: HO.HUSH 10:45
PROVIDERS: PCP Internal Medicine; Visit Provider Urology
DX: N40.1 Benign prostatic hyperplasia with lower urinary tract symptoms (principal); C61 Malignant neoplasm of prostate; Z19.1 Hormone sensitive malignancy status
CPT/HCPCS: 99213; G2211

== ENCOUNTER → 2025-04-02 10:45 | Outpatient (BNVA) | payer MEDICARE, MEDICAID, SELFPAY | PROVIDERS: PCP Internal Medicine; Visit Provider Urology ==

== ENCOUNTER 2025-06-11 01:38 | Emergency (ER) | payer MEDICARE, MEDICAID, SELFPAY ==
--- NOTE | ~2025-06-11 | CT_ITS ---
CLINICAL HISTORY: fall, headstrike CT cervical spine without contrast Comparison: CT/REG/SR - CT CERVICAL SPINE WO IV CON - 01/09/24 18:31 EDT Findings: Normal vertebral body alignment. There are no acute fractures or subluxations. There are chronic degenerative changes with ankylosis and anterior bridging osteophytes. Significant disc space narrowing is seen at the C 3-4, C6-7 and C7-T1 levels. Large posterior osteophytic ridge at the C3-4 level with spinal stenosis and bilateral foraminal narrowing. No acute fractures or dislocations. No acute findings on limited view of the intracranial contents. No cervical fluid collections or masses. No consolidation or effusion at the lung apices. Multilevel facet arthropathy. IMPRESSION: No acute findings. Chronic findings as above. This document has been electronically signed by: Jayden Reed MD on 06/11/2025 06:00:42
--- NOTE | ~2025-06-11 | CT_ITS ---
CLINICAL HISTORY: fall, headstrike CT head without contrast Comparison: CT/SR - CT HEAD WITHOUT IV CONTRAST - 01/09/24 18:31 EDT Findings: No intra-axial mass, midline shift, hydrocephalus, or acute hemorrhage. There is moderate cortical atrophy. There is no sinus or mastoid fluid. The orbits are unremarkable. No skull fracture. Significant microvascular changes are noted similar to the prior exam. IMPRESSION: 1. No acute intracranial findings. This document has been electronically signed by: Jayden Reed MD on 06/11/2025 05:48:53
[2025-06-11 01:56] VITALS: BP 125/78; PULSE 103; PULSE 83; RESP 18; TEMP 37.1; O2SAT 94; O2SAT 96; BMI 22.0
--- NOTE | 2025-06-11 01:56 | PC.NURSE ---
this RN assumed care of this pt at this time, triage complete using information from EMS and pt printed medical record from [facility] d/t pt being non-verbal w/ hearing loss
[2025-06-11 03:56] VITALS: BP 131/76; PULSE 85; RESP 18; TEMP 36.7; O2SAT 95
--- NOTE | 2025-06-11 04:29 | ED.FALL ---
HPI - Fall General Chief Complaint: Fall Stated Complaint: FALL +HEADSTRIKE Time Seen by Provider: 06/11/25 03:40 Source: EMS and other ([facility] workers) Mode of arrival: EMS Limitations: other (Intellectual delay, nonverbal) History of Present Illness ED Provider: Dr. Clover Cardona HPI Narrative: 74-year-old male with a history of intellectual delay, nonverbal, lives at a [place] [facility] presenting via EMS with reported fall while attempting to get up to go to the bathroom. It isn't hit his head and has a contusion on the forehead. No reported LOC. he does not take blood thinners. Patient unable to give any history secondary to his clinical condition though there are no reports of recent illness from the [place] [facility]. Related Data Home Medications ?Medication ?Instructions ?Recorded ?Confirmed docusate sodium 100 mg tablet 100 mg PO BID 11/19/20 07/10/24 hydrochlorothiazide 25 mg tablet 25 mg PO DAILY@0800 11/19/20 07/10/24 lisinopril 20 mg tablet 20 mg PO QAM 11/19/20 07/10/24 pravastatin 40 mg tablet 40 mg PO QPM 11/19/20 07/10/24 lactulose 10 gram/15 mL oral 30 ml PO QPM 08/25/21 07/10/24 solution loratadine 10 mg tablet 10 mg PO DAILY PRN Allergy Symptoms 08/25/21 07/10/24 multivitamin with folic acid 400 1 tab PO DAILY@2100 08/25/21 07/10/24 mcg tablet (Thera) omeprazole 40 mg capsule,delayed 40 mg PO QAM 08/25/21 07/10/24 release Lactobacillus rhamnosus GG 10 1 cap PO QAM 02/25/22 07/10/24 billion cell capsule (Culturelle) bacitracin zinc 500 unit/gram 1 appl topical QID PRN Wound Care 02/25/22 07/10/24 topical ointment magnesium hydroxide 400 mg/5 mL 30 ml PO BEDTIME 02/25/22 07/10/24 oral suspension (Milk of Magnesia) polyethylene glycol 3350 17 17 g PO DAILY@1700 02/25/22 07/10/24 gram/dose oral powder (Miralax) acetaminophen 325 mg tablet 650 mg PO Q6H PRN Fever Or Pain 02/17/24 07/10/24 bisacodyl 10 mg rectal suppository 10 mg VA DAILY@2000 PRN 02/17/24 07/10/24 (OneLAX Bisacodyl) constiaption sodium phosphates 19 gram-7 118 ml VA DAILY PRN Constipation 02/17/24 07/10/24 gram/118 mL enema (Enema Disposable) terbinafine HCl 1 % topical cream 1 appl topical BID PRN Rash 02/17/24 07/10/24 (Antifungal (terbinafine)) diazepam 10 mg tablet 10 mg PO ONCE PRN eye appointment 02/26/24 07/10/24 guaifenesin 100 mg/5 mL oral 200 mg PO Q6H PRN cough/cold 02/26/24 07/10/24 liquid (Tussin Mucus-Chest Congestion) hydrocortisone 1 % topical cream 1 appl topical BID PRN Hemorrhoids 02/26/24 07/10/24 mineral oil-isopropyl myristat 1 appl topical MOWEFR 02/26/24 07/10/24 lotion Previous Rx's ?Medication ?Instructions ?Recorded levofloxacin 500 mg tablet 500 mg PO daily 3 days #3 tabs 05/22/24 finasteride 5 mg tablet 5 mg PO QPM 90 days #90 tabs 02/01/25 terazosin 10 mg capsule 10 mg PO BEDTIME 90 days #90 caps 04/02/25 Allergies Allergy/AdvReac Type Severity Reaction Status Date / Time azithromycin (AZITHROMYCIN) Allergy Unknown UNKOWN Verified 04/02/25 10:47 environmental allergies Allergy Unknown Unknown Verified 06/11/25 02:01 Macrolide Antibiotics Allergy Unknown unknown Verified 04/02/25 10:47 (MACROLIDE ANTIBIOTICS) Macrolides and ketolides Allergy Unknown Unknown Uncoded 04/02/25 10:47 Review of Systems Review of Systems: Yes Unobtainable due to mental condition PMFSH Past Medical History Source: old records reviewed and other (Patient's binder from the [place] [facility]) Medical History HTN (hypertension) BPH (benign prostatic hyperplasia) Barretts syndrome GERD (gastroesophageal reflux disease) JAMUL (hard of hearing) Non-verbal learning disorder Social History Social History Household Members: None Household Members Other:: From [place] [facility] Housing: Unknown / Unable to assess Housing Other:: Long Term Do you presently have visiting nurse or other home services: Yes ([facility]) Unable to assess alcohol history related to: Unable to respond and Unknown Comment: group account director at bedside Patient Tobacco Use Status: Never used Tobacco Advance Directives Date on File: 01/09/24 service: No Current occupational status: disabled Physical Exam Exam: Exam: GENERAL: Chronically ill-appearing, nonverbal, no acute distress. SKIN: Normal skin color for ethnicity, warm, dry, no rashes noted. HEENT: Normocephalic, midline forehead contusion with associated superficial abrasion, no ecchymosis, no bogginess to the scalp, no raccoon's eyes or malagon sign, no stridor, posterior oropharynx nonerythematous, EOMI. NECK: Soft, supple, full ROM, no step-offs, no deformities, no lymphadenopathy. CHEST: Heart regular rate and rhythm, no murmurs, symmetric chest rise and fall. PULMONARY: Clear to auscultation bilaterally, no labored breathing, no wheezes/rhales/ rhonchi. ABDOMINAL: Soft, nondistended, positive bowel sounds in all quadrants. : Deferred. MUSCULOSKELETAL: Normal tone, full range of motion, no deformities, no peripheral edema. NEURO: Alert, nonverbal, CN II through XII intact, no focal neurologic deficits. PSYCHIATRIC: Flat affect, appropriate demeanor. Vital Signs: Vital Signs: Last Vital Signs Temp 97.9 F 06/11/25 06:18 Pulse 89 06/11/25 06:18 Resp 20 06/11/25 06:18 BP 136/82 06/11/25 06:18 Pulse Ox 94 06/11/25 06:18 O2 Del Method Room Air 06/11/25 06:18 BMI result Body Mass Index 22.0 Medical Decision Making Medical Decision Making MDM Narrative: Patient presents today with chief complaint of head trauma. Different diagnosis on this patient includes intracranial hemorrhage, skull fracture, neck injury including fracture or spinal cord pathology. Based on my physical exam, the ordered imaging modalities are indicated. The patient specifically does not show any signs of central cord syndrome as evidenced by equal strength in the upper extremities with normal two-point discrimination. Sensation is not obviously altered. GCS is appropriate. Patient is neurovascularly intact. There are no signs of vascular emergency. No signs of shock. No respiratory distress. Patient's HCP is at bedside, Nancy. She reports she is in close contact with his guardian and plans to call her later this morning. Imaging is negative for acute process. Discussed this with her at length. Patient is reportedly at his baseline. Stable for d/c back to [place] [facility]. Differential Diagnosis Differential Diagnoses: The differential diagnosis associated with the presentation includes (As above) Admission/Observation Consideration of admission/observation: Escalation of care including admission/observation considered Radiology Impression Discussion of test interpretation with radiology: I have reviewed the radiologist's reading. Independent Historian Clinical information obtained from an independent historian. History obtained from or confirmed by: Other ([facility] paperwork, EMS) External Record Review External record reviewed: Outpatient record and Primary care record Chronic Conditions Patient?s care impacted by: Other (Intellectual delay, nonverbal) Social Determinants Patient?s care significantly limited by Social Determinants of Health including: Problems related to primary support group and Other Social Determinant of Health Discharge Plan Discharge Clinical Impression: Fall from ground level, Contusion of forehead, Abrasion of forehead Patient Disposition: Home, Self-Care Instructions: Head Injury (ED), Facial Contusion (ED) Additional Instructions: Return to the emergency department with any new or worsening symptoms including: Inability to tolerate food or drink, fevers greater than 100?, redness that tracks away from the wound on his forehead, any new symptom that concerns you. Prescriptions: No Action levofloxacin 500 mg tablet 500 mg PO daily 3 Days Qty: 3 0RF Rx Instructions: take 1 tablet day before procedure, 1 tablet day of procedure and 1 tablet day after procedure finasteride 5 mg tablet 5 mg PO QPM 90 Days Qty: 90 1RF pravastatin 40 mg Tablet 40 mg PO QPM lisinopril 20 mg Tablet 20 mg PO QAM Protocol: Hold for SBP< HOLD for SBP < : 90 hydrochlorothiazide 25 mg Tablet 25 mg PO DAILY@0800 Protocol: Hold for SBP< HOLD for SBP < : 90 docusate sodium 100 mg Tablet 100 mg PO BID magnesium hydroxide [Milk of Magnesia] 400 mg/5 mL suspension 30 ml PO BEDTIME bacitracin zinc 500 unit/gram Ointment 1 appl TOPICAL QID PRN (Reason: Wound Care) polyethylene glycol 3350 [Miralax] 17 gram/dose Powder 17 g PO DAILY@1700 Culturelle 10 billion cell Capsule 1 cap PO QAM guaifenesin [Tussin Mucus-Chest Congestion] 100 mg/5 mL Liquid 200 mg PO Q6H PRN (Reason: cough/cold) hydrocortisone 1 % Cream 1 appl TOPICAL BID PRN (Reason: Hemorrhoids) diazepam 10 mg Tablet 10 mg PO ONCE PRN (Reason: eye appointment) Rx Instructions: 2 hours before mineral oil-isopropyl myristat Lotion 1 appl TOPICAL MOWEFR Rx Instructions: TWICE DAILY multivitamin with folic acid [Thera] 400 mcg tablet 1 tab PO DAILY@2100 omeprazole 40 mg capsule,delayed release(DR/EC) 40 mg PO QAM lactulose 10 gram/15 mL solution 30 ml PO QPM loratadine 10 mg tablet 10 mg PO DAILY PRN (Reason: Allergy Symptoms) acetaminophen 325 mg tablet 650 mg PO Q6H PRN (Reason: Fever Or Pain) bisacodyl [OneLAX Bisacodyl] 10 mg suppository 10 mg VA DAILY@2000 PRN (Reason: constiaption) Rx Instructions: on 4th day of no BM if MOM not effective Enema Disposable 19-7 gram/118 mL enema 118 ml VA DAILY PRN (Reason: Constipation) Rx Instructions: on day 5 without BM terbinafine HCl [Antifungal (terbinafine)] 1 % cream 1 appl topical BID PRN (Reason: Rash) Rx Instructions: feet terazosin 10 mg capsule 10 mg PO BEDTIME 90 Days Qty: 90 1RF Stand Alone Forms: Work/School Release Interventions: ED Discharge Assessment Last Done: 06/11/25 06:18 Discharge Date/Time: 06/11/25 06:22 Print Language: Mexican
[2025-06-11 06:18] VITALS: BP 136/82; PULSE 89; RESP 20; TEMP 36.6; O2SAT 94
== END 2025-06-11 06:22 | disposition home or self-care (01) ==
PROVIDERS: Emergency Provider Emergency Medicine
DX: S00.83XA Contusion of other part of head, initial encounter (principal); S00.81XA Abrasion of other part of head, initial encounter; W18.11XA Fall from or off toilet without subsequent striking against object, initial encounter; Y93.89 Activity, other specified; Y92.192 Bathroom in other specified residential institution as the place of occurrence of the external cause; Y99.9 Unspecified external cause status; Z79.899 Other long term (current) drug therapy
CPT/HCPCS: 70450; 72125; 99283; 99284

== ENCOUNTER 2025-06-13 14:39 | Outpatient (REF) | payer MEDICARE, MEDICAID, SELFPAY ==
--- OUTSIDE RECORDS SUMMARY | 2025-06-13 15:20 | XMS_ITS | Encounter Summary ---
Author Organization [facility] Address [address] [facility] [address] [place] [phone] Phone Care Team Providers Care Tailer Out Name Role Phone Brandon Tovar MD Primary Care Provider [phone] Encounter Details Date Type Department Care Team (Late st Contact Info) Description 10/04/2022 Procedure Pass [facility] Endoscopy Admitting Dept Virtual Department [address] [place] [id number] Social History Tobacco Use Types Packs/Day Years Used Date Smoking Tobacco: Never Smokeless Tobacco: Never Alcohol Use Standard Drinks/Week Comments No 0 (1 standard drink = 0.6 oz pur e alcohol) Sex and Gender Information Value Date Recorded Sex Assigned at Not on file Legal Sex Male 12:27 PM EDT Gender Identity Not on file Sexual Orientation Not on file documented as of this encounter Plan of Treatment Not on file documented as of this encounter Visit Diagnoses Not on filedocumented in this encounter Care Teams Tailer Out Relationship Specialty Start Date End Date Brandon Tovar MD [address] [place] [id number] PCP - General Internal Medicine 03/09/18 documented as of this encounter Additional Source Comments The information contained in this document represents components of the legal health record. It is not the complete legal health record.[facility]
[2025-06-13 17:19] LABS: Prostate Specific Antigen < 0.10 ng/mL (<0.05-4.0)
== END 2025-06-13 14:40 | disposition home or self-care (01) ==
LOC: HO.HMGCLDS 14:39
PROVIDERS: PCP Internal Medicine; Visit Provider Urology
DX: C61 Malignant neoplasm of prostate (principal); Z19.1 Hormone sensitive malignancy status
CPT/HCPCS: 36415; 84153; 84403

== ENCOUNTER 2025-07-01 20:43 | Emergency (ER) | payer MEDICARE, MEDICAID, SELFPAY ==
[2025-07-01 20:50] VITALS: BP 118/70; PULSE 110; O2SAT 93; BMI 22.0
[2025-07-01 20:58] VITALS: BP 122/76; PULSE 82; RESP 16; TEMP 36.4; O2SAT 95
--- OUTSIDE RECORDS SUMMARY | 2025-07-01 21:26 | XMS_ITS | Clinical Summary ---
Author Organization [facility] Address [address] [id number] Phone Care Team Providers Care Camera Prototyping Engineer Name Role Phone Brandon Tovar MD Primary Care Provider [phone] Allergies Active Allergy Reactions Criticality Noted Date Comments Azithromycin 11/08/2018 Medications famotidine (PEPCID) 20 MG tabletIndication s:gastroesophage al reflux disease Take 20 mg by mouth 2 (two) times a day. Indications: gastroesophageal reflux disease Active docusate (COLACE) 100 mg tablet Take 100 mg by mouth 2 (two) times a day. Active polyethylene glycol (MIRALAX) 17 gram/dose powder Take 17 g by mouth daily. 5 pm constipation Active oxybutynin (DITROPAN-XL) 10 MG 24 hr tablet Take 10 mg by mouth daily. Active therapeutic multivitamin tablet Take 1 tablet by mouth daily. Active lactulose (CONSTULOSE) 10 gram/15 mL (15 mL) Soln Take 10 g by mouth daily. evening Active lisinopril (PRINIVIL,ZESTRI L) 20 MG tablet Take 20 mg by mouth daily. 7am NOTIFY MD IF SBP >160, DBP>100, OR SBP<90 OR DBP <50 Active magnesium hydroxide (MILK OF MAGNESIA ORAL) Take 30 mL by mouth daily. Active tamsulosin (FLOMAX) 0.4 mg Cap Take 0.4 mg by mouth daily. EVENING Active pravastatin (PRAVACHOL) 40 MG tablet Take 40 mg by mouth daily. Active chlorhexidine (PERIDEX) 0.12 % solution Swish and spit 15 mL daily. BEDTIME Active diazePAM (VALIUM) 10 MG tablet Take 10 mg by mouth as needed for anxiety. 1 HOUR PRIOR TO EYE APPTS / PROCEDURES Active hydroCHLOROthiaz larissa (HYDRODIURIL) 25 MG tablet Take 25 mg by mouth daily. HTN Active lactobacillus rhamnosus, GG, (CULTURELLE) 10 billion cell capsule Take 1 capsule by mouth daily. Active loratadine (CLARITIN) 10 mg tablet Take 10 mg by mouth daily. ALLERGIES Active ibuprofen (ADVIL,MOTRIN) 400 MG tablet Take 400 mg by mouth every 8 (eight) hours as needed for pain (specific location in comments). PAIN SIGNS / GRIMMACE Active terbinafine HCL (LAMISIL) 1 % cream Apply topically 2 (two) times a day. Active lanolin-mineral oil (EUCERIN ORIGINAL) Lotn Apply topically as needed. Active acetaminophen (TYLENOL) 325 mg tablet Take 650 mg by mouth every 6 (six) hours as needed. Active omeprazole (PRILOSEC) 40 MG capsule 09/06/20 Active Social History Tobacco Use Types Packs/Day Years Used Date Smoking Tobacco: Never Smokeless Tobacco: Never Tobacco Cessation:Counseling Given: Not Answered Alcohol Use Standard Drinks/Week Comments No 0 (1 standard drink = 0.6 oz pur e alcohol) Education Answer Date Recorded Are you interested in more education? Not on gonsalo e 02/25/2023 Are you concerned about learning? Not on file 02/25/2023 No 02/25/2023 No 02/25/2023 Digital Access Answer Date Recorded No 03/29/2023 No 03/29/2023 No 03/29/2023 Reliable internet access at home? Not on file 03/29/2023 Device with a working camera? Not on file Sex and Gender Information Value Date Recorded Sex Assigned at Not on file Legal Sex Male 12:27 PM EDT Gender Identity Not on file Sexual Orientation Not on file Last Filed Vital Signs Vital Sign Reading Time Taken Comments Blood Pressure 98/62 10/04/2022 8:48 AM EST Pulse 71 10/04/2022 8:48 AM EST Temperature 36.2 C (97.1 F) 10/04/2022 8:28 AM EST Respiratory Rate 14 10/04/2022 9:00 AM EST Oxygen Saturation 98% 10/04/2022 8:48 AM EST Inhaled Oxygen Concentration - - Weight 86.2 kg (190 lb) 10/01/2022 8:49 AM EST Height 172.7 cm (5' 8 ) 10/01/2022 8:49 AM EST Body Mass Index 28.89 10/01/2022 8:49 AM EST Plan of Treatment Upcoming Encounters Date Type Department Care Team (Latest Contact Info) Description 10/07/2025 Procedure Pass [facility] Endoscopy Admitting Dept Virtual Department [address] [place] [phone] 10/07/2025 9:30 AM EST Hospital Encounter [facility] Admitting Dept Virtual Department [address] [place] [phone] Sandeep Chávez MD [address] [phone] [email or web address] 10/07/2025 9:30 AM EST - 10/07/2025 10:00 AM EST Surgery [facility] Endoscopy Admitting Dept Virtual Department [address] [place] [phone] Sandeep Chávez MD [address] [address] [email or web address] ESOPHAGOGASTRODUODENOSCOPY Scheduled Procedures Name Priority Associated Diagnoses Date/Ti me ESOPHAGOGASTRODUODENOSCOPY direct egd 10/07/2025 9:30 AM EST Health Maintenance Due Date Last Done Comments CREATININE LEVEL 1949 LIPID PANEL 1949 POTASSIUM LEVEL 1949 DEPRESSION SCREENING 1961 HEPATITIS C SCREENING 1967 COLOGUARD 1994 COLONOSCOPY 1994 FIT TEST 1994 SIGMOIDOSCOPY 1994 VIRTUAL COLONOSCOPY 1994 COLORECTAL CANCER SCREENING 10/12/2019 FOBT 10/12/2019 10/12/2018 COVID-19 VACCINE ( season) 2024 07/22/2022, 08/17/2021, 12/05/2020, Additional history exists RSV VACCINE (1 - 1-dose 75+ series) 2024 Adult Td,Tdap Booster 03/17/2032 03/17/2022 , 09/30/2021, 04/08/2002 PNEUMOCOCCAL VACCINES (50+ years) Completed 06/28/2018, 06/24/2015, 04/08/1995 ZOSTER VACCINES Completed 12/29/2018, 10/2017, 05/13/2012 SMOKING STATUS SCREENING (Once After 26 Yrs) Completed 10/04/2022 HEPATITIS A VACCINES Aged Out No long er eligible based on patient's age to complete this topic HIB VACCINES Aged Out No longer eligi ble based on patient's age to complete this topic MENINGOCOCCAL VACCINES (ACWY) Aged Out No longer eligible based on patient's age to complete this topic MENINGOCOCCAL VACCINES (B) Aged Out N o longer eligible based on patient's age to complete this topic Medical Devices Not on file Procedures Procedure Name Priority Date/Time Associated Diagnosis Comments FECAL OCCULT BLOOD, MULTIPLE Routine 10/12/2018 3:46 PM EST Iron deficiency anemia, unspecified iron deficiency anemia type Epidemic vomiting syndrome from Last 3 Months or Most Recently Relevant to Health Maintenance Results * Fecal occult blood, multiple (10/12/2018 3:46 PM EST) FECAL OCC BLD 1 DATE [id number] [facility] Occult bld, stool, #1 Negative Negative [facility] FECAL OCC BLD 2 DATE [phone] [facility] OCCULT BLD, STOOL, #2 Negative Negative [facility] FECAL OCC BLD 3 DATE [id number] [facility] FECAL OCC BLD 3 RSLT Negative Negative [facility] Stool (Stool) 10/12/2018 3:4 6 PM EST 10/12/2018 3:49 PM EST María Elena Sullivan PA-C BODY FLUIDS AND STOOLS ORDERABL ES Final Result [facility] [address] [place] [address] from Last 3 Months or Most Recently Relevant to Health Maintenance Insurance MEDICARE PART A & B [place] PART A & [place] [id number] MEDICARE PART A & [place] PART A & B [facility] MEDICARE PART A & [place] PART A & B [facility] MEDICARE PART A & [place] & B [facility] Advance Directives For more information, please contact: [phone] (9AM - 5PM [facility], Tuesday-Tuesday) Documents on File Type Date Recorded Patient Stoper Expl anation Legal Guardianship 10/05/2022 10:24 AM Gra nted Care Teams Camera Prototyping Engineer Relationship Specialty Start Date End Date Brandon Tovar MD [address] [place] [phone] PCP - General Internal Medicine 03/09/18 Additional Source Comments The information contained in this document represents components of the legal health record. It is not the complete legal health record.[facility]
--- OUTSIDE RECORDS SUMMARY | 2025-07-01 21:26 | XMS_ITS | Encounter Summary ---
Author Organization [facility] Address [address] [place] [address] [place] [address] Phone Care Team Providers Care General Laborer Name Role Phone Brandon Tovar MD Primary Care Provider [phone] Encounter Details Date Type Department Care Team (Latest Contact Info) Description 09/19/2018 Transcribe Orders [facility] [address] [place] [address] María Elena Sullivan PA-C [address] [facility] [address] [place] [address] Iron deficiency anemia, unspecified iron deficiency anemia type (Primary Dx); Epidemic vomiting syndrome Social History Tobacco Use Types Packs/Day Years Used Date Smoking Tobacco: Never Assessed Sex and Gender Information Value Date Recorded Sex Assigned at Not on file Legal Sex Male 12:27 PM EDT Gender Identity Not on file Sexual Orientation Not on file documented as of this encounter Plan of Treatment Upcoming Encounters Date Type Department Care Team (Latest Contact Info) Description 10/07/2025 Procedure Pass [facility] Endoscopy Admitting Dept Virtual Department [address] [place] [address] 10/07/2025 9:30 AM EST Hospital Encounter [facility] Admitting Dept Virtual Department [address] [place] [address] Sandeep Chávez MD [address] [address] [email or web address] 10/07/2025 9:30 AM EST - 10/07/2025 10:00 AM EST Surgery [facility]oscopy Admitting Dept Virtual Department [address] [place] [address] Sandeep Chávez MD [address] [place] [address] [email or web address] ESOPHAGOGASTRODUODENOSCOPY Scheduled Procedures Name Priority Associated Diagnoses Date/Ti me ESOPHAGOGASTRODUODENOSCOPY direct egd 10/07/2025 9:30 AM EST documented as of this encounter Results * Fecal occult blood, multiple (10/12/2018 3:46 PM EST) FECAL OCC BLD 1 DATE [id number],[id number] [facility] Occult bld, stool, #1 Negative Negative [facility] FECAL OCC BLD 2 DATE 12,092,018 [facility] OCCULT BLD, STOOL, #2 Negative Negative [facility] FECAL OCC BLD 3 DATE [id number],018 [facility] FECAL OCC BLD 3 RSLT Negative Negative [facility] Stool (Stool) 10/12/2018 3:4 6 PM EST 10/12/2018 3:49 PM EST us María Elena Sullivan PA-C BODY FLUIDS AND STOOLS ORDERABL ES Final Result Performing Organization Address [facility]/ZIP Co de Phone Number [address] [address] * Vitamin B12 (09/19/2018 11:13 AM EST) VITAMIN B12 1,241 232 - 1,245 pg/mL [facility] Blood 09/19/2018 11:1 3 AM EST 09/19/2018 11:28 AM EST us María Elena Sullivan PA-C LAB BLOOD ORDERABLES Final Resu lt Performing Organization Address City/[facility]/ZIP Co de Phone Number [address] [address] * Ferritin (09/19/2018 11:13 AM EST) FERRITIN 337 30 - 400 ug/L [facility] Blood 09/19/2018 11:1 3 AM EST 09/19/2018 11:28 AM EST us María Elena Sullivan PA-C LAB BLOOD ORDERABLES Final Resu lt Performing Organization Address City/[facility]/ZIP Co de Phone Number [address] [address] * (ABNORMAL) Folate (09/19/2018 11:13 AM EST) FOLIC ACID >20.0(H) 4.2 - 19.9 ng/mL [facility] Blood 09/19/2018 11:1 3 AM EST 09/19/2018 11:28 AM EST us María Elena Sullivan PA-C LAB BLOOD ORDERABLES Final Resu lt Performing Organization Address [facility]/ZIP Co de Phone Number [address] [address] * (ABNORMAL) Iron and iron binding capacity (09/19/2018 11:13 AM EST) IRON 53 45 - 160 ug/dL [facility] IRON BINDING CAPACITY 295 228 - 428 ug/dL [facility] TRANSFERRIN SATURAT. 18(L) 20 - 55 % [facility] Blood 09/19/2018 11:1 3 AM EST 09/19/2018 11:28 AM EST us María Elena Sullivan PA-C LAB BLOOD ORDERABLES Final Resu lt Performing Organization Address City/[facility]/ZIP Co de Phone Number [address] [address] * CBC (09/19/2018 11:13 AM EST) WBC 7.58 3.40 - 11.20 K/uL [facility] RBC 5.00 4.50 - 5.50 M/uL [facility] HGB 14.3 13.0 - 17.0 g/dL [facility] HCT 44.0 40.0 - 51.0 % [facility] PLT 250 130 - 400 K/uL [facility] MCV 88.0 79.0 - 98.0 [facility] MCH 28.6 27.0 - 34.8 pg [facility] MCHC 32.5 31.5 - 36.0 g/dL [facility] RDW 14.1 10.8 - 14.6 % [facility] MPV 12.2 9.4 - 12.4 [facility] NRBC 0.00 0.00 /100 WBCs [facility] ABSOLUTE NRBC 0.00 0.00 K/uL [facility] Blood 09/19/2018 11:1 3 AM EST 09/19/2018 11:28 AM EST us María Elena Sullivan PA-C LAB BLOOD ORDERABLES Final Resu lt Performing Organization Address City/[facility]/ZIP Co de Phone Number [address] [address] * Immunoglobulin A (09/19/2018 11:13 AM EST) IgA 274 70 - 400 mg/dL [facility] Blood 09/19/2018 11:1 3 AM EST 09/19/2018 11:28 AM EST us María Elena Sullivan PA-C LAB BLOOD ORDERABLES Final Resu lt Performing Organization Address City/[facility]/ZIP Co de Phone Number [address] [address] * Tissue transglutaminase IgA (09/19/2018 11:13 AM EST) TTG IGA ANTIBODY <1.2 <4.0 (Negative) U/mL [facility] DPT OF LAB MED AND PAT+ Blood 09/19/2018 11:1 3 AM EST 09/19/2018 11:28 AM EST us María Elena VICTORIAC LAB BLOOD ORDERABLES Final Resu lt [facility] DPT OF LAB MED AND PAT+ [address] [place] [address] documented in this encounter Visit Diagnoses Diagnosis Iron deficiency anemia, unspecified iron deficiency anemia type- Primary Epidemic vomiting syndrome documented in this encounter Care Teams General Laborer Relationship Specialty Start Date End Date Brandon Tovar MD [address] [place] [address] PCP - General Internal Medicine 03/09/18 documented as of this encounter Additional Source Comments The information contained in this document represents components of the legal health record. It is not the complete legal health record.[facility]
--- OUTSIDE RECORDS SUMMARY | 2025-07-01 21:26 | XMS_ITS | Encounter Summary ---
Author Organization [facility] Address [address] [facility] [address] [place] [address] Phone Care Team Providers Care Owner Oral Surgeon Name Role Phone Brandon Tovar MD Primary Care Provider [phone] Encounter Details Date Type Department Care Team (Late st Contact Info) Description 09/21/2023 Procedure Pass [facility], Ct Scan - [address] [address] Social History Tobacco Use Types Packs/Day Years [...] [facility] Endoscopy Admitting Dept Virtual Department [address] [place] [address] 10/07/2025 9:30 AM [facility] Hospital Encounter [facility] Endoscopy Admitting Dept Virtual Department [address] [place] [address] Sandeep Chávez MD [address] [address] [email or web address] 10/07/2025 9:30 AM EST - 10/07/2025 10:00 AM EST Surgery [facility] Endoscopy Admitting Dept Virtual Department [address] [place] [address] Sandeep Chávez MD [address] [address] [email or web address] Scheduled Procedures Name Priority Associated Diagnoses Date/Ti me ESOPHAGOGASTRODUODENOSCOPY direct egd 10/07/2025 9:30 AM EST documented as of this encounter Visit Diagnoses Not on filedocumented in this encounter Care Teams Owner Oral Surgeon Relationship Specialty Start Date End Date Brandon Tovar MD [address] [place] [address] PCP - General Internal Medicine 03/09/18 documented as of this encounter Additional Source Comments The information contained in this document represents components of the legal health record. It is not the complete legal health record.[facility]
--- OUTSIDE RECORDS SUMMARY | 2025-07-01 21:26 | XMS_ITS | Encounter Summary ---
Author Organization [facility] Address [address] [place] [address] Phone Care Team Providers Care Button Reclaimer Name Role Phone Brandon Tovar MD Primary Care Provider [phone] Encounter Details Date Type Department Care Team (Late st Contact Info) Description 11/10/2018 Procedure Pass [facility] Endoscopy Admitting Dept Virtual Department [address] [place] [address] Social History Tobacco Use Types Packs/Day Years [...] Pass [facility] Endoscopy Admitting Dept Virtual Department [address] [place] [address] 10/07/2025 9:30 AM EST Hospital Encounter [facility] Endoscopy Admitting Dept Virtual Department [address] [place] [address] Sandeep Chávez MD [address] [place] [address] [email or web address] 10/07/2025 9:30 AM EST - 10/07/2025 10:00 AM EST Surgery [facility] Endoscopy Admitting Dept Virtual Department [address] [place] [address] Sandeep Chávez MD [address] [place] [address] [email or web address] Scheduled Procedures Name Priority Associated Diagnoses Date/Ti me ESOPHAGOGASTRODUODENOSCOPY direct egd 10/07/2025 9:30 AM EST documented as of this encounter Visit Diagnoses Not on filedocumented in this encounter Care Teams Button Reclaimer Relationship Specialty Start Date End Date Brandon Tovar MD [address] [place] [address] PCP - General Internal Medicine 03/09/18 documented as of this encounter Additional Source Comments The information contained in this document represents components of the legal health record. It is not the complete legal health record.[facility]
--- OUTSIDE RECORDS SUMMARY | 2025-07-01 21:26 | XMS_ITS | Encounter Summary ---
Author Organization [facility] Address [address] [place] [address] [place] [address] Phone Care Team Providers Care Complex Manager Name Role Phone Brandon Tovar MD Primary Care Provider [phone] Encounter Details Date Type Department Care Team (Late st Contact Info) Description 10/04/2022 Procedure Pass [facility] Endoscopy Admitting Dept Virtual Department [address] [place] [address] Social History Tobacco Use Types Packs/Day Years [...] Pass [facility] Endoscopy Admitting Dept Virtual Department [address] [place] [address] 10/07/2025 9:30 AM EST Hospital Encounter [facility] Endoscopy Admitting Dept Virtual Department [address] [place] [address] Sandeep Chávez MD [address] [place] [address] [email or web address] 10/07/2025 9:30 AM EST - 10/07/2025 10:00 AM EST Surgery [facility] Endoscopy Admitting Dept Virtual Department [address] [place] [address] Sandeep Chávez MD [address] [place] [address] [email or web address] Scheduled Procedures Name Priority Associated Diagnoses Date/Ti me ESOPHAGOGASTRODUODENOSCOPY direct egd 10/07/2025 9:30 AM EST documented as of this encounter Visit Diagnoses Not on filedocumented in this encounter Care Teams Complex Manager Relationship Specialty Start Date End Date Brandon Tovra MD [address] [place] [address] PCP - General Internal Medicine 03/09/18 documented as of this encounter Additional Source Comments The information contained in this document represents components of the legal health record. It is not the complete legal health record.[facility]
--- OUTSIDE RECORDS SUMMARY | 2025-07-01 21:26 | XMS_ITS | Encounter Summary ---
Author Organization [facility] Address [address] [address] Phone Care Team Providers Care Case Fitter Name Role Phone Brandon Tovar MD Primary Care Provider [phone] Reason for Referral * MRI/CAT Scan - Closed Specialty Diagnoses / Procedures Referred By Edin t Referred To Contact Radiology Diagnoses Positive colorectal cancer screening using Cologuard test Constipation, unspecified constipation type Acquired megacolon Bustamante's esophagus with dysplasia Procedures CT Abdomen/Pelvis Sandeep Chávez MD [address] [place] [address] Phone: tel: fax: [email or web address] Referral ID Status Reason Start Date Expiration Date Visits Re quested Visits Authorized [id number] Closed 09/21/2023 1 1 Encounter Details Date Type Department Care Team (Latest Contact Info) Description 09/21/2023 Transcribe Orders Virtual Department 30 [place] [address] Sandeep Chávez MD [address] [address] [email or web address] Positive colorectal cancer screening using Cologuard test (Primary Dx); Constipation, unspecified constipation type; Acquired megacolon; Bustamante's esophagus with dysplasia Social History Tobacco Use Types Packs/Day Years [...] Pass [facility] Endoscopy Admitting Dept Virtual Department [address] [place] [address] 10/07/2025 9:30 AM EST Hospital Encounter [facility] Endoscopy Admitting Dept Virtual Department [address] [place] [address] Sandeep Chávez MD [address] [place] [address] [email or web address] 10/07/2025 9:30 AM EST - 10/07/2025 10:00 AM EST Surgery [facility] Endoscopy Admitting Dept Virtual Department [address] [place] [address] Sandeep Chávez MD [address] [place] [address] [email or web address] [email or web address] Scheduled Procedures Name Priority Associated Diagnoses Date/Ti me ESOPHAGOGASTRODUODENOSCOPY direct egd 10/07/2025 9:30 AM EST documented as of this encounter Results * CT ABDOMEN/PELVIS WITH CONTRAST (10/28/2023 12:37 PM EST) Anatomical Region Laterality Modality Abdomen, Pelvis Computed Tomogra phy 11/01/2023 9:22 AM EST Impressions 11/01/2023 9:32 AM EST 1. Rectal wall thickening and moderate perirectal fat stranding likely represents proctocolitis. Underlying rectal ulcer cannot be excluded. No definite evidence of mass lesion. Narrative 11/01/2023 9:[address] ABDOMEN/PELVIS WITH CONTRAST Referring clinician's provided indication for this examination in [facility]: Outside Radiology Order; positive colorguard test, constipation, acquired jaskaran colon, barretts esophagus TECHNIQUE: Multidetector-row CT of the abdomen and pelvis was performed after administration of intravenous contrast using tailored dose modulation techniques. Images were reconstructed in the axial, coronal, and sagittal planes. No evidence of acute airspace disease. COMPARISON: None FINDINGS: Lower Chest: There is bilateral pleural thickening with adjacent atelectasis, rounded on the right. Liver: Normal. No focal lesions. Biliary: Normal. No biliary ductal dilatation. Spleen: Normal. No splenomegaly or focal lesions. Pancreas: Normal. No masses or ductal dilatation. Adrenal Glands: Normal. No nodules. Kidneys/Ureters: Normal. No solid masses, stones, or hydronephrosis. Simple cysts are identified bilaterally. Bowel: Evaluation the GI tract to mature is no evidence of obstruction. There is gaseous distention of the colon. There is no evidence of volvulus. There is symmetric rectal wall thickening with perirectal fat stranding likely representing proctitis, however, rectal ulcer cannot be excluded. No perirectal lymphadenopathy identified. No definite evidence of mass lesion. Peritoneum/Retroperitoneum: Normal. No masses, pneumoperitoneum, or fluid. Lymph Nodes: Normal. No lymphadenopathy. Pelvic Organs/Bladder: Normal. No mass. P now calcifications are identified. Vessels: Normal. No abdominal aortic aneurysm. Bones/Soft Tissues: Normal. No destructive osseous lesions. Procedure Note Janet Perdomo MD - 11/01/2023 CT ABDOMEN/PELVIS WITH CONTRAST Referring clinician's provided indication for this examination in [facility]:Outside Radiology Order; positive colorguard test, constipation, acquiredmega colon, barretts esophagus TECHNIQUE: Multidetector-row CT of the abdomen and pelvis was performedafter administration of intravenous contrast using tailored dosemodulation techniques. Images were reconstructed in the axial, coronal,and sagittal planes. No evidence of acute airspace disease. COMPARISON: None FINDINGS: Lower Chest: There is bilateral pleural thickening with adjacentatelectasis, rounded on the right. Liver: Normal. No focal lesions. Biliary: Normal. No biliary ductal dilatation. Spleen: Normal. No splenomegaly or focal lesions. Pancreas: Normal. No masses or ductal dilatation. Adrenal Glands: Normal. No nodules. Kidneys/Ureters: Normal. No solid masses, stones, or hydronephrosis.Simple cysts are identified bilaterally. Bowel: Evaluation the GI tract to mature is no evidence of obstruction.There is gaseous distention of the colon. There is no evidence ofvolvulus. There is symmetric rectal wall thickening with perirectal fatstranding likely representing proctitis, however, rectal ulcer cannot beexcluded. No perirectal lymphadenopathy identified. No definite evidenceof mass lesion. Peritoneum/Retroperitoneum: Normal. No masses, pneumoperitoneum, orfluid. Lymph Nodes: Normal. No lymphadenopathy. Pelvic Organs/Bladder: Normal. No mass. P now calcifications areidentified. Vessels: Normal. No abdominal aortic aneurysm. Bones/Soft Tissues: Normal. No destructive osseous lesions. IMPRESSION: 1. Rectal wall thickening and moderate perirectal fat stranding likelyrepresents proctocolitis. Underlying rectal ulcer cannot be excluded. Nodefinite evidence of mass lesion. Sandeep Chávez MD IMG CT ABD/PELVIS Final Result documented in this encounter Visit Diagnoses Diagnosis Positive colorectal cancer screening using Cologuard test- Primary Constipation, unspecified constipation type Acquired megacolon Megacolon, other than Hirschsprung's Bustamante's esophagus with dysplasia documented in this encounter Care Teams Case Fitter Relationship Specialty Start Date End Date Brandon Tovar MD [address] [place] [address] PCP - General Internal Medicine 03/09/18 documented as of this encounter Additional Source Comments The information contained in this document represents components of the legal health record. It is not the complete legal health record.[facility]
[2025-07-01 22:24] VITALS: BP 114/75; PULSE 77; TEMP 36.8; O2SAT 95
[2025-07-02 00:46] VITALS: TEMP 37.7
[2025-07-02 00:54] LABS: MANUAL DIFF FLAG NO
[2025-07-02 00:56] LABS: Hematocrit 37.5 % (42.0-52.0); Hemoglobin 12.6 g/dl (14.0-18.0); Imm Gran Abs Auto 0.05 X10*3/uL (0.00-0.03); Imm Gran Pct Auto 0.4 % (0.0-0.4); Lymphocytes Absolute Auto 2.8 X10*3/uL (1.2-4.9); Mean Corpuscular HGB Conc 33.6 g/dl (31.0-36.0); Mean Corpuscular Hemoglobin 29.7 pg (27.0-33.0); Mean Corpuscular Volume 88.4 fL (80.0-98.0); NRBC Abs Auto 0.000 X10*3/uL (0.0-0.012); NRBC Pct Auto 0.0 /100WBC (0.0-0.2); Platelet Count 251 X10*3/uL (160-400); Red Blood Count 4.24 X10*6/uL (4.60-5.80); White Blood Count 13.4 X10*3/uL (4.8-10.8)
[2025-07-02 01:12] LABS: Alanine Aminotransferase 30 U/L (0-40); Albumin Level 4.0 g/dL (3.5-5.0); Alkaline Phosphatase 90 U/L (39-117); Anion Gap 15 (12-20); Aspartate Amino Transferase 23 U/L (5-37); Blood Urea Nitrogen 16 mg/dL (9-16); Calcium 9.3 mg/dL (8.4-10.2); Carbon Dioxide 27 mmol/L (22-29); Chloride 101 mmol/L (96-108); Creatinine Clr Calc Pharmacy 76.6; Estimated Glomerular Filt Rate > 60; Magnesium 1.9 mg/dL (1.6-2.6); Potassium 3.9 mmol/L (3.3-5.1); Sodium 139 mmol/L (135-145); Total Protein 7.0 g/dL (6.5-8.0)
--- NOTE | 2025-07-02 01:49 | ED.GENADULT ---
HPI - General Adult General Chief complaint: General Medical Stated complaint: Hypotension per grp home. bp 118/70 for ems Time Seen by Provider: 07/02/25 00:10 Source: EMS Limitations: no limitations and other (Physical and cognitive impairment) History of Present Illness ED Provider: Jennie Rosenberg PA-C HPI narrative: 74-year-old male with a history of nonverbal & deaf male with history of HTN, BPH, aspiration pneumonia, history of UTI, history of falls who presents to the ER from his care home for evaluation of lethargy and hypotension. Per EMS, care home staff was concerned the patient was hypotensive. When EMS arrived, the patient was normotensive. No known recent illness or fever. Related Data Home Medications ?Medication ?Instructions ?Recorded ?Confirmed docusate sodium 100 mg tablet 100 mg PO BID 11/19/20 07/10/24 hydrochlorothiazide 25 mg tablet 25 mg PO DAILY@0800 11/19/20 07/10/24 lisinopril 20 mg tablet 20 mg PO QAM 11/19/20 07/10/24 pravastatin 40 mg tablet 40 mg PO QPM 11/19/20 07/10/24 lactulose 10 gram/15 mL oral 30 ml PO QPM 08/25/21 07/10/24 solution loratadine 10 mg tablet 10 mg PO DAILY PRN Allergy Symptoms 08/25/21 07/10/24 multivitamin with folic acid 400 1 tab PO DAILY@2100 08/25/21 07/10/24 mcg tablet (Thera) omeprazole 40 mg capsule,delayed 40 mg PO QAM 08/25/21 07/10/24 release Lactobacillus rhamnosus GG 10 1 cap PO QAM 02/25/22 07/10/24 billion cell capsule (Culturelle) bacitracin zinc 500 unit/gram 1 appl topical QID PRN Wound Care 02/25/22 07/10/24 topical ointment magnesium hydroxide 400 mg/5 mL 30 ml PO BEDTIME 02/25/22 07/10/24 oral suspension (Milk of Magnesia) polyethylene glycol 3350 17 17 g PO DAILY@1700 02/25/22 07/10/24 gram/dose oral powder (Miralax) acetaminophen 325 mg tablet 650 mg PO Q6H PRN Fever Or Pain 02/17/24 07/10/24 bisacodyl 10 mg rectal suppository 10 mg UT DAILY@1999 PRN 02/17/24 07/10/24 (OneLAX Bisacodyl) constiaption sodium phosphates 19 gram-7 118 ml UT DAILY PRN Constipation 02/17/24 07/10/24 gram/118 mL enema (Enema Disposable) terbinafine HCl 1 % topical cream 1 appl topical BID PRN Rash 02/17/24 07/10/24 (Antifungal (terbinafine)) diazepam 10 mg tablet 10 mg PO ONCE PRN eye appointment 02/26/24 07/10/24 guaifenesin 100 mg/5 mL oral 200 mg PO Q6H PRN cough/cold 02/26/24 07/10/24 liquid (Tussin Mucus-Chest Congestion) hydrocortisone 1 % topical cream 1 appl topical BID PRN Hemorrhoids 02/26/24 07/10/24 mineral oil-isopropyl myristat 1 appl topical MOWEFR 02/26/24 07/10/24 lotion Previous Rx's ?Medication ?Instructions ?Recorded levofloxacin 500 mg tablet 500 mg PO daily 3 days #3 tabs 05/22/24 finasteride 5 mg tablet 5 mg PO QPM 90 days #90 tabs 02/01/25 terazosin 10 mg capsule 10 mg PO BEDTIME 90 days #90 caps 04/02/25 Allergies Allergy/AdvReac Type Severity Reaction Status Date / Time azithromycin (AZITHROMYCIN) Allergy Unknown UNKOWN Verified 07/01/25 20:51 environmental allergies Allergy Unknown Unknown Verified 07/01/25 20:51 Macrolide Antibiotics Allergy Unknown unknown Verified 07/01/25 20:51 (MACROLIDE ANTIBIOTICS) Macrolides and ketolides Allergy Unknown Unknown Uncoded 07/01/25 20:51 Review of Systems Review of Systems: Unable to obtain given patient's physical and cognitive impairment Yes all other systems are reviewed and are negative PMFSH Past Medical History Attestation statement: The following information was validated with the patient. 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 group manager at bedside Patient Tobacco Use Status: Never used Tobacco Smoked in Last 30 Days: No Use of substances other than those prescribed or required for medical reasons: No Advance Directives: No Advance Directives Information Provided: No Advance Directives Date on File: 01/09/24 Do you have a plan to hurt others: No Plan service: No Current occupational status: disabled Physical Exam ED Vital Signs: Vital Signs - 24 hr 07/01/25 20:58 07/01/25 22:24 07/02/25 00:46 Temperature 97.5 F 98.2 F 99.9 F Pulse Rate 82 77 Respiratory Rate 16 Blood Pressure 122/76 114/75 Pulse Oximetry 95 95 Oxygen Delivery Method Room Air Room Air 07/02/25 02:02 Temperature 97.6 F Pulse Rate 87 Respiratory Rate 16 Blood Pressure 112/57 L Pulse Oximetry 97 Oxygen Delivery Method Room Air BMI result Body Mass Index 22.0 Const Other: Awake Resp Effort & Inspection: normal respiratory effort Cardio Other: Normal peripheral perfusion Skin Other: Warm dry no rash Psych Other: Flat affect Course Reevaluation(s) Reevaluation #1: contacted guardian, sister Sharmin Mitchell she was aware he was going to be transported for assessment Reevaluation #2: spoke with Sharmin, relayed to her that we have not appreciated any abnormal vital signs, labs normal, will be sending back to his care home, she is pleased and thankful for the update Time: 01:54 Medical Decision Making Medical Decision Making MDM Narrative: 74-year-old male with a history of nonverbal & deaf male with history of HTN, BPH, aspiration pneumonia, history of UTI, history of falls who presents to the ER from his care home for evaluation of lethargy and hypotension. Per EMS, care home staff was concerned the patient was hypotensive. When EMS arrived, the patient was normotensive. No known recent illness or fever. Problem: Nonverbal, deaf, prior aspiration pneumonia, UTI History: Per care home staff and EMS I have considered the following differential diagnoses: Sepsis, dehydration, inaccurate blood pressure measurement at the care home, Plan: Patient's vitals have been stable, there has been repeat sats of vitals obtained, we will obtain screening labs airing on the side of caution. Patient is afebrile, rectal temp obtain I have independently reviewed the following tests: Labs: Slight leukocytosis, no left shift, not anemic, no electrolyte abnormality noted Differential Diagnosis Differential Diagnoses: The differential diagnosis associated with the presentation includes See medical decision-making Admission/Observation Consideration of admission/observation: Escalation of care including admission/observation considered Not applicable Lab Data MDM Lab Attestation statement: I reviewed the patient's lab results. 07/02/25 00:51 07/02/25 00:51 Labs: Lab Results 07/02/25 Range/Units 00:51 WBC 13.4 H (4.8-10.8) X10*3/uL RBC 4.24 L (4.60-5.80) X10*6/uL Hgb 12.6 L (14.0-18.0) g/dl Hct 37.5 L (42.0-52.0) % MCV 88.4 (80.0-98.0) fL MCH 29.7 (27.0-33.0) pg MCHC 33.6 (31.0-36.0) g/dl RDW 13.2 (11.0-16.0) % Plt Count 251 D (160-400) X10*3/uL MPV 11.2 (9.4-12.4) fL Immature Gran % (Auto) 0.4 (0.0-0.4) % Neut % (Auto) 70.8 (45-73) % Lymph % (Auto) 21.2 (20-40) % [place] % (Auto) 6.8 (2-11) % Eos % (Auto) 0.5 (0-4) % Baso % (Auto) 0.3 (0-2) % Lymph # (Auto) 2.8 (1.2-4.9) X10*3/uL [place] # (Auto) 0.9 (0.1-1.2) X10*3/uL Eos # (Auto) 0.1 (0.0-0.4) X10*3/uL Baso # (Auto) 0.0 (0.0-0.2) X10*3/uL Abs Immat Gran (auto) 0.05 H (0.00-0.03) X10*3/uL Absolute Neuts (auto) 9.5 H (2.0-8.3) x10*3/uL Absolute Nucleated RBC 0.000 (0.0-0.012) X10*3/uL Nucleated RBC % (auto) 0.0 (0.0-0.2) /100WBC Sodium 139 (135-145) mmol/L Potassium 3.9 (3.3-5.1) mmol/L Chloride 101 (96-108) mmol/L Carbon Dioxide 27 (22-29) mmol/L Anion Gap 15 (12-20) BUN 16 (9-16) mg/dL Creatinine 0.82 (0.5-1.4) mg/dL Estim Creat Clear Calc 76.6 Estimated GFR > 60 Random Glucose 96 (60-115) mg/dL Calcium 9.3 D (8.4-10.2) mg/dL Magnesium 1.9 (1.6-2.6) mg/dL Total Bilirubin 0.4 (0.0-1.0) mg/dL AST 23 (5-37) U/L ALT 30 (0-40) U/L Alkaline Phosphatase 90 (39-117) U/L Total Protein 7.0 (6.5-8.0) g/dL Albumin 4.0 (3.5-5.0) g/dL Discharge Plan Discharge Clinical Impression: Lethargic Patient Disposition: Home, Self-Care Instructions: Fatigue (ED) Additional Instructions: We have not appreciated any abnormal vital signs, most importantly his blood pressure has been completely stable since arrival. He had no lab abnormalities, and he should follow up with his primary care provider in 3 days for a recheck. Prescriptions: No Action levofloxacin 500 mg tablet 500 mg PO daily 3 Days Qty: 3 0RF Rx Instructions: take 1 tablet day before procedure, 1 tablet day of procedure and 1 tablet day after procedure finasteride 5 mg tablet 5 mg PO QPM 90 Days Qty: 90 1RF pravastatin 40 mg Tablet 40 mg PO QPM lisinopril 20 mg Tablet 20 mg PO QAM Protocol: Hold for SBP< HOLD for SBP < : 90 hydrochlorothiazide 25 mg Tablet 25 mg PO DAILY@0800 Protocol: Hold for SBP< HOLD for SBP < : 90 docusate sodium 100 mg Tablet 100 mg PO BID magnesium hydroxide [Milk of Magnesia] 400 mg/5 mL suspension 30 ml PO BEDTIME bacitracin zinc 500 unit/gram Ointment 1 appl TOPICAL QID PRN (Reason: Wound Care) polyethylene glycol 3350 [Miralax] 17 gram/dose Powder 17 g PO DAILY@1700 Culturelle 10 billion cell Capsule 1 cap PO QAM guaifenesin [Tussin Mucus-Chest Congestion] 100 mg/5 mL Liquid 200 mg PO Q6H PRN (Reason: cough/cold) hydrocortisone 1 % Cream 1 appl TOPICAL BID PRN (Reason: Hemorrhoids) diazepam 10 mg Tablet 10 mg PO ONCE PRN (Reason: eye appointment) Rx Instructions: 2 hours before mineral oil-isopropyl myristat Lotion 1 appl TOPICAL MOWEFR Rx Instructions: TWICE DAILY multivitamin with folic acid [Thera] 400 mcg tablet 1 tab PO DAILY@2100 omeprazole 40 mg capsule,delayed release(DR/EC) 40 mg PO QAM lactulose 10 gram/15 mL solution 30 ml PO QPM loratadine 10 mg tablet 10 mg PO DAILY PRN (Reason: Allergy Symptoms) acetaminophen 325 mg tablet 650 mg PO Q6H PRN (Reason: Fever Or Pain) bisacodyl [OneLAX Bisacodyl] 10 mg suppository 10 mg UT DAILY@2000 PRN (Reason: constiaption) Rx Instructions: on 4th day of no BM if MOM not effective Enema Disposable 19-7 gram/118 mL enema 118 ml UT DAILY PRN (Reason: Constipation) Rx Instructions: on day 5 without BM terbinafine HCl [Antifungal (terbinafine)] 1 % cream 1 appl topical BID PRN (Reason: Rash) Rx Instructions: feet terazosin 10 mg capsule 10 mg PO BEDTIME 90 Days Qty: 90 1RF Interventions: ED Discharge Assessment Last Done: 07/02/25 02:02 Discharge Date/Time: 07/02/25 03:30 Print Language: Belarusian
[2025-07-02 02:02] VITALS: BP 112/57; PULSE 87; RESP 16; TEMP 36.4; O2SAT 97
--- NOTE | 2025-07-02 03:37 | PC.NURSE ---
EMS arrived to transport patient back to [facility]. This RN spoke with [facility] staff at [facility] and gave report on discharge instructions.D/c instructions and paperwork provided to EMS.
== END 2025-07-02 03:30 | disposition home or self-care (01) ==
PROVIDERS: Physician Assistant Medical; Emergency Provider Emergency Medicine; PCP Internal Medicine
DX: I95.9 Hypotension, unspecified (principal); R53.83 Other fatigue; Z79.899 Other long term (current) drug therapy
CPT/HCPCS: 36415; 80053; 83735; 85025; 99283; 99284

== ENCOUNTER 2025-08-01 11:25 | Outpatient (AMB) | payer MEDICARE, MEDICAID, SELFPAY ==
--- NOTE | 2025-08-01 11:23 | MHC.OFFVIS ---
Intake Visit Reasons: GnRH/6M/PSA/Testo Intake Note: Patient is present for 6M F/U Urology Medication:FINASTERIDE,TERAZOSIN Antibiotic Allergy:AZITHROMYCIN Blood Thinner:NONE Labs done 06/13/25 : PSA <0.10, Total Testosterone : 9 Wound Care Coordinator Required: No Accompanied by: FACILITY Allergies azithromycin (AZITHROMYCIN) Allergy (Unknown, Verified 08/01/25 11:23) UNKOWN environmental allergies Allergy (Unknown, Verified 08/01/25 11:23) Unknown Macrolide Antibiotics (MACROLIDE ANTIBIOTICS) Allergy (Unknown, Verified 08/01/25 11:23) unknown Macrolides and ketolides Allergy (Unknown, Uncoded 07/01/25 20:51) Unknown HPI Comments Details: Wilfredo is a very pleasant male. He is a resident of a assisted he is seen for the following urologic conditions - BPH - elevated PSA - Prostate cancer Follow-up of prostate cancer Plan for last [facility] administration 06/24 <0.1 9 01/22 -PSA <0.1 T 6 10/23 PSA <0.1 T 8 GnRH 08/23, 01/22 Staging - PET-CT 11/24 Mild metabolic activity seen in the posterior lobe of prostate gland likely site of primary prostate lesion..No abnormal metabolic activity seen in retroperitoneum or pelvis to suspect metastatic adenopathy. - Bone Scan 01/22 No suspicion for metastatic bone disease Discussion with healthcare proxy Sharmin - [phone] Prostate cancer - high-risk 06/23 Multi core biopsy PSA 8.5 High-risk core Histologic type: Acinar adenocarcinoma Histologic grade: [place] score: 3+3=6 (E & F); 3+4=7 (A, B, D); 4+5=9 (C) % of pattern 4: 10-90% (A,B,C,D) % of pattern 5: 10% (C) Grade group: 1 (E & F); 2 (A, B, D); 5 (C) Tumor quantitation: Number cores positive: 6 Total number of cores: 12 % of tissue involved: See above for details Periprostatic fat inv.: Not identified Seminal vesicle inv.: Not identified Perineural inv.: Present LVI: Not identified Plan for intermittent hormone therapy and staging [facility], [facility] Medical History HTN (hypertension) BPH (benign prostatic hyperplasia) Barretts syndrome GERD (gastroesophageal reflux disease) [place] (hard of hearing) Non-verbal learning disorder Social History Household Members: None Household Members Other:: From assisted Housing: Unknown / Unable to assess Housing Other:: Alf Do you presently have visiting nurse or other home services: Yes (USP) Comment: group work program director at bedside Patient Tobacco Use Status: Never used Tobacco Advance Directives Date on File: 01/09/24 service: No Current occupational status: disabled Review of Systems Const Denies chills and Denies fever(s) Card Reports no additional complaints and Denies syncope Resp Denies cough GI Denies abdominal pain and Denies heartburn Reports as per HPI and Denies change in libido Neuro Denies syncope Psych Denies change in libido Endo Denies change in libido Physical Exam Const General: cooperative, healthy appearing, comfortable and no acute distress Orientation/consciousness: patient oriented x3 HEENT Face and sinus: Yes normal facial exam Mouth: moist mucous membranes Neck Neck: Yes normal visual inspection, Yes full ROM and Yes trachea midline Chest Chest palpation & inspection: normal inspection of the chest Resp Effort & Inspection: normal respiratory effort, able to speak in complete sentences and no respiratory distress GI Inspection: Yes normal to inspection Back/Spine/Pelvis Cervical Spine: normal cervical lordosis Thoracic/Lumbar Spine: thoracic and lumbar spine normal to inspection Skin General skin exam: no rashes or lesions noted Neuro General: patient oriented x3, gait normal, tone normal and moves all extremities Extrem General: Yes normal to inspection and Yes capillary refill normal Office Meds Eligard (6 month) 45 mg (6 month) subcutaneous syringe Performing Provider: Lucien Arriaga MD Performing Location[place] [facility] [place] [facility] Administered by: Brendon Trevino LPN on 08/01/25 11:48 Dose Route Admin Location Dispensed Lot Number Expiration Date [facility] Food [employer] 45 mg subcut right arm 45 mg [id number] 07/01/26 04288-631-60 [employer] Total Dispensed Waste 45 mg 0 % Assessment & Plan Assessment & Plan (1) Hormone sensitive prostate cancer: Code(s): C61 - Malignant neoplasm of prostate; Z19.1 - Hormone sensitive malignancy status Category: Medical (2) Nocturia more than twice per night: Code(s): R35.1 - Nocturia Category: Medical (3) Lower urinary tract symptoms due to benign prostatic hyperplasia: Code(s): N40.1 - Benign prostatic hyperplasia with lower urinary tract symptoms Category: Medical Plan [facility] today Six-month follow-up lab work Orders: Orders AMB Leuprolide Injection - Practice Supplied Today C61 - Malignant neoplasm of prostate, Z19.1 - Hormone sensitive malignancy status Patient Instructions: This note is constructed using voice recognition software. While every effort has been made to ensure accuracy scuba dive training instructor errors may have been included. Imaging studies, laboratory and physical exam results were discussed and reviewed in detail. No major barriers to patient understanding were identified. An opportunity to ask questions regarding the treatment plan was provided. All questions were answered. The patient expressed understanding and agreement with the above treatment plan. The patient is aware they should contact our office by phone for worsening of their current condition or the appearance of new urologic symptoms. Compliance is encouraged with any medications and followup testing that is ordered. It is a privilege to participate in the urologic care of your patient. If you have any questions or concerns regarding treatment for the above conditions, or other urologic issues, please do not hesitate to contact me. The office telephone contact is [phone]. Sincerely, Dr Lucien Arriaga MD, [facility] - Urology Compassionate Specialist Care for the Genitourinary System Coding Level of Care Code Est Pt Level 3 (11647) Complex EM visit Add On G2211 Diagnoses Hormone sensitive prostate cancer C61; Z19.1 Nocturia more than twice per night R35.1 Lower urinary tract symptoms due to benign prostatic hyperplasia N40.1
--- OUTSIDE RECORDS SUMMARY | 2025-08-01 13:17 | XMS_ITS | Encounter Summary ---
Author Organization [facility] Address [address] [place] [id number] Phone Care Team Providers Care Circular Ripsaw Operator Name Role Phone Brandon Tovar MD Primary Care Provider [phone] Encounter Details Date Type Department Care Team (Late st Contact Info) Description 09/21/2023 Procedure Pass [facility], Ct Scan - [address] [address] Social History Tobacco Use Types Packs/Day Years [...] [facility] Admitting [facility] Virtual Department [address] [place] [address] 10/07/2025 9:30 AM [facility] Hospital Encounter [facility] Admitting Dept Virtual Department [address] [place] [address] Sandeep Chávez MD [address] [address] [email or web address] 10/07/2025 9:30 AM EST - 10/07/2025 10:00 AM EST Surgery [facility] Endoscopy Admitting Dept Virtual Department [address] [place] [phone] Sandeep Chávez MD [address] [address] [email or web address] ESOPHAGOGASTRODUODENOSCOPY 10/15/2025 11:30 AM EST Office Visit [facility] [address] [place] [address] Unknown, Unknown, MD Isidro, Kamilah Linn, SUKH [address] [place] [address] Scheduled Procedures Name Priority Associated Diagnoses Date/Ti me ESOPHAGOGASTRODUODENOSCOPY direct egd 10/07/2025 9:30 AM EST documented as of this encounter Visit Diagnoses Not on filedocumented in this encounter Care Teams Circular Ripsaw Operator Relationship Specialty Start Date End Date Brandon Tovar MD [address] [place] [phone] PCP - General Internal Medicine 03/09/18 documented as of this encounter Additional Source Comments The information contained in this document represents components of the legal health record. It is not the complete legal health record.[facility]
--- OUTSIDE RECORDS SUMMARY | 2025-08-01 13:17 | XMS_ITS | Encounter Summary ---
Author Organization [facility] Address [address] [place] [phone] Phone Care Team Providers Care Nurse Informaticist Name Role Phone Brandon Tovar MD Primary Care Provider [phone] Encounter Details Date Type Department Care Team (Late st Contact Info) Description 11/10/2018 Procedure Pass [facility] End[facility] Admitting Dept Virtual Department [address] [place] [phone] Social History Tobacco Use Types Packs/Day Years [...] Pass [facility]oscopy Admitting Dept Virtual Department [address] [place] [phone] 10/07/2025 9:30 AM EST Hospital Encounter [facility] Virtual Department [address] [place] [address] Sandeep Chávez MD [address] [place] [address] [email or web address] 10/07/2025 9:30 AM EST - 10/07/2025 10:00 AM EST Surgery [facility] Endoscopy Admitting Dept Virtual Department [address] [place] [phone] Sandeep Chávez MD [address] [address] [email or web address] ESOPHAGOGASTRODUODENOSCOPY 10/15/2025 11:30 AM EST Office Visit [facility] [address] [place] [address] Unknown, Unknown, Kamilah Beltrán NP [address] [place] [address] Scheduled Procedures Name Priority Associated Diagnoses Date/Ti me ESOPHAGOGASTRODUODENOSCOPY direct egd 10/07/2025 9:30 AM EST documented as of this encounter Visit Diagnoses Not on filedocumented in this encounter Care Teams Nurse Informaticist Relationship Specialty Start Date End Date Brandon Tovar MD [address] [place] [phone] PCP - General Internal Medicine 03/09/18 documented as of this encounter Additional Source Comments The information contained in this document represents components of the legal health record. It is not the complete legal health record.[facility]
--- OUTSIDE RECORDS SUMMARY | 2025-08-01 13:17 | XMS_ITS | Clinical Summary ---
Author Organization [facility] Address [address] [address] Phone Care Team Providers Care Kiln Feeder Name Role Phone Brandon Tovar MD Primary Care Provider [phone] Allergies Active Allergy Reactions Criticality Noted Date [...] Pass [facility] Endoscopy Admitting Dept Virtual Department [address] [place] [address] 10/07/2025 9:30 AM EST Hospital Encounter [facility] Endoscopy Admitting Dept Virtual Department [address] [place] [address] Sandeep Chávez MD [address] [address] [email or web address] 10/07/2025 9:30 AM EST - 10/07/2025 10:00 AM EST Surgery [facility] Endoscopy Admitting Dept Virtual Department [address] [place] [address] Sandeep Chávez MD [address] [address] [email or web address] ESOPHAGOGASTRODUODENOSCOPY 10/15/2025 11:30 AM EST Office Visit [facility] 10 [place] [address] Unknown, Unknown, Kamilah Beltrán, SUKH 10 [place] [address] Scheduled Procedures Name Priority Associated Diagnoses Date/Ti me ESOPHAGOGASTRODUODENOSCOPY direct egd 10/07/2025 9:30 AM EST Health Maintenance Due Date Last Done Comments CREATININE LEVEL 1949 LIPID PANEL 1949 POTASSIUM LEVEL 1949 DEPRESSION SCREENING 1961 HEPATITIS C SCREENING 1967 COLOGUARD 1994 COLONOSCOPY 1994 FIT TEST 1994 SIGMOIDOSCOPY 1994 VIRTUAL COLONOSCOPY 1994 COLORECTAL CANCER SCREENING 10/12/2019 FOBT 10/12/2019 10/12/2018 RSV VACCINE (1 - 1-dose 75+ series) 2024 INFLUENZA VACCINE (#1) 2025 , 08/17/2021, 08/04/2020, Additional history exists COVID-19 VACCINE (2024- season) 2025 07/22/2022, 08/17/2021, 12/05/2020, Additional history exists Adult Td,Tdap Booster 03/17/2032 03/17/2022 , 09/30/2021, [...] EST) FECAL OCC BLD 1 DATE 12,072,018 [facility] Occult bld, stool, #1 Negative Negative [facility] FECAL OCC BLD 2 DATE 12,092,018 [facility] OCCULT BLD, STOOL, #2 Negative Negative [facility] FECAL OCC BLD 3 DATE 12,122,018 [facility] FECAL OCC BLD 3 RSLT Negative Negative [facility] Stool (Stool) 10/12/2018 3:4 6 PM EST 10/12/2018 3:49 PM EST María Elena Sullivan PA-C BODY FLUIDS AND STOOLS ORDERABL ES Final Result [address] [address] from Last 3 Months or Most Recently Relevant to Health Maintenance Insurance MEDICARE PART A & B [employer] MEDICARE PART A & B [employer] MEDICARE PART A & B HEALTH MEDICARE PART A & B Member Subscriber Plan / Payer (Ef fective 1973-) Name:Wilfredo Sands Member ID:[id number] Relation to Subscriber:Self Name:Wilfredo Sands Subscriber ID:[id number] Payer ID:[id number] Group ID:Not on file Type:Medicare Address: [employer] [address] B HEALTH MEDICARE PART A & B Member Subscriber Plan / Payer (Ef fective 1973-) Name:Wilfredo Sands Member ID:[id number] Relation to Subscriber:Self Name:Wilfredo Sands Subscriber ID:[id number] Payer ID:[id number] Group ID:Not on file Type:Medicare Address: [employer] [address] [facility] & B [address] [place], [place] [address]HEALTH MEDICARE PART A & B [facility] [place] [id number] [place] [id number] MEDICARE PART A & B [facility] [place] [id number] Advance Directives For more information, please contact: [phone] (9AM - 5PM [facility], Tuesday-Tuesday) Documents on File Type Date Recorded Patient Sports Manager Expl anation Legal Guardianship 10/05/2022 10:24 AM Gra nted Care Teams Kiln Feeder Relationship Specialty Start Date End Date Brandon Tovar MD [address] [place], [place] [address] [id number] PCP - General Internal Medicine 03/09/18 Additional Source Comments The information contained in this document represents components of the legal health record. It is not the complete legal health record.[facility]
--- OUTSIDE RECORDS SUMMARY | 2025-08-01 13:17 | XMS_ITS | Encounter Summary ---
Author Organization [facility] Address [address] [place] [address] [place] [address] Phone Care Team Providers Care Electrician Maintenance Name Role Phone Brandon Tovar MD Primary Care Provider [phone] Encounter Details Date Type Department Care Team (Latest Contact Info) Description 09/19/2018 Transcribe Orders [facility] [address] [place] [address] María Elena Sullivan PA-C [address] [facility]. [address] [place] [address] Iron deficiency anemia, unspecified iron deficiency anemia [...] [facility] Endoscopy Admitting Dept Virtual Department [address] [place] [address] 10/07/2025 9:30 AM EST Hospital Encounter [facility] Admitting [facility] Virtual Department [address] [place] [address] Sandeep Chávez MD [address] [address] [email or web address] 10/07/2025 9:30 AM EST - 10/07/2025 10:00 AM EST Surgery [facility] Endoscopy Admitting Dept Virtual Department [address] [place] [address] Sandeep Chávez MD [address] [address] [email or web address] ESOPHAGOGASTRODUODENOSCOPY 10/15/2025 11:30 AM EST Office Visit [facility] 10 [place] [address] Unknown, Unknown, Kamilah Beltrán, SUKH 10 [place] [address] Scheduled Procedures Name Priority Associated Diagnoses Date/Ti me ESOPHAGOGASTRODUODENOSCOPY direct egd 10/07/2025 9:30 AM EST documented as of this encounter Results * Fecal occult blood, multiple (10/12/2018 3:46 PM EST) FECAL OCC BLD 1 DATE 12,072,018 [facility] Occult bld, stool, #1 Negative Negative [facility] FECAL OCC BLD 2 DATE 12,092,018 [facility] OCCULT BLD, STOOL, #2 Negative Negative [facility] FECAL OCC BLD 3 DATE 12,122,018 [facility] FECAL OCC BLD 3 RSLT Negative Negative [facility] Stool (Stool) 10/12/2018 3:4 6 PM EST 10/12/2018 3:49 PM EST us María Elena Sullivan PA-C BODY FLUIDS AND STOOLS ORDERABL ES Final Result [address] [address] * Vitamin B12 (09/19/2018 11:13 AM EST) VITAMIN B12 1,241 232 - 1,245 pg/mL [facility] Blood 09/19/2018 11:1 3 AM EST 09/19/2018 11:28 AM EST us María Elena Sullivan PA-C LAB BLOOD ORDERABLES Final Resu lt Performing Organization Address [facility] Co de Phone Number [address] [address] * Ferritin (09/19/2018 11:13 AM EST) FERRITIN 337 30 - 400 ug/L [facility] Blood 09/19/2018 11:1 3 AM EST 09/19/2018 11:28 AM EST us María Elena Sullivan PA-C LAB BLOOD ORDERABLES Final Resu lt Performing Organization Address [facility] Co de Phone Number [address] [address] * (ABNORMAL) Folate (09/19/2018 11:13 AM EST) FOLIC ACID >20.0(H) 4.2 - 19.9 ng/mL [facility] Blood 09/19/2018 11:1 3 AM EST 09/19/2018 11:28 AM EST us María Elena Sullivan PA-C LAB BLOOD ORDERABLES Final Resu lt Performing Organization Address [facility] Co de Phone Number [address] [address] * (ABNORMAL) Iron and iron binding capacity (09/19/2018 11:13 AM EST) IRON 53 45 - 160 ug/dL [facility] IRON BINDING CAPACITY 295 228 - 428 ug/dL [facility] TRANSFERRIN SATURAT. 18(L) 20 - 55 % [facility] Blood 09/19/2018 11:1 3 AM EST 09/19/2018 11:28 AM EST us María Elena Sullivan PA-C LAB BLOOD ORDERABLES Final Resu lt Performing Organization Address City/[facility]/ZIP Co de Phone Number [address] [address] * CBC (09/19/2018 11:13 AM EST) WBC 7.58 3.40 - 11.20 K/uL [facility] RBC 5.00 4.50 - 5.50 M/uL [facility] HGB 14.3 13.0 - 17.0 g/dL [facility] HCT 44.0 40.0 - 51.0 % [facility] PLT 250 130 - 400 K/uL [facility] MCV 88.0 79.0 - 98.0 fL [facility] MCH 28.6 27.0 - 34.8 pg [facility] MCHC 32.5 31.5 - 36.0 g/dL [facility] RDW 14.1 10.8 - 14.6 % [facility] MPV 12.2 9.4 - 12.4 fl [facility] NRBC 0.00 0.00 /100 WBCs [facility] ABSOLUTE NRBC 0.00 0.00 K/uL [facility] Blood 09/19/2018 11:1 3 AM EST 09/19/2018 11:28 AM EST us María Elena Sullivan PA-C LAB BLOOD ORDERABLES Final Resu lt [address] [address] * Immunoglobulin A (09/19/2018 11:13 AM EST) IgA 274 70 - 400 mg/dL [facility] Blood 09/19/2018 11:1 3 AM EST 09/19/2018 11:28 AM EST María Elena Sullivan PA-C LAB BLOOD ORDERABLES Final Resu lt [address] [address] * Tissue transglutaminase IgA (09/19/2018 11:13 AM EST) TTG IGA ANTIBODY <1.2 <4.0 (Negative) U/mL [facility] DPT OF LAB MED AND PAT+ Blood 09/19/2018 11:1 3 AM EST 09/19/2018 11:28 AM EST us María Elena Sullivan PA-C LAB BLOOD ORDERABLES Final Resu lt [facility] DPT OF LAB MED AND PAT+ [address] [place] [address] documented in this encounter Visit Diagnoses Diagnosis Iron deficiency anemia, unspecified iron deficiency anemia type- Primary Epidemic vomiting syndrome documented in this encounter Care Teams Electrician Maintenance Relationship Specialty Start Date End Date Brandon Tovar MD [address] [place] [address] PCP - General Internal Medicine 03/09/18 documented as of this encounter Additional Source Comments The information contained in this document represents components of the legal health record. It is not the complete legal health record.[facility]
--- OUTSIDE RECORDS SUMMARY | 2025-08-01 13:17 | XMS_ITS | Encounter Summary ---
Author Organization [facility] Address [address] [address] Phone Care Team Providers Care Commercial Print Salesman Name Role Phone Brandon Tovar MD Primary Care Provider [phone] Reason for Referral * MRI/CAT Scan - Closed Specialty Diagnoses / Procedures Referred By Edin t Referred To Contact Radiology Diagnoses Positive colorectal cancer screening using Cologuard test Constipation, unspecified constipation type Acquired megacolon Bustamante's esophagus with dysplasia Procedures CT Abdomen/Pelvis Sandeep Chávez MD [address] [place] [address] Phone: tel: fax: [email or web address] Referral ID Status Reason Start Date Expiration Date Visits Re quested Visits Authorized [id number] Closed 09/21/2023 1 1 Encounter Details Date Type Department Care Team (Latest Contact Info) Description 09/21/2023 Transcribe Orders Virtual Department [address] [place] [address] Sandeep Chávez MD [address] [address] [email or web address] Positive colorectal cancer screening using [...] [facility] Endoscopy Admitting Dept Virtual Department [address] [place] [address] 10/07/2025 9:30 AM EST Hospital Encounter [facility] Endoscopy Admitting Dept Virtual Department [address] [place] [address] Sandeep Chávez MD [address] [place] [address] [email or web address] 10/07/2025 9:30 AM EST - 10/07/2025 10:00 AM EST Surgery [facility] Endoscopy Admitting Dept Virtual Department [address] [place] [address] Sandeep Chávez MD [address] [place] [address] [email or web address] ESOPHAGOGASTRODUODENOSCOPY 10/15/2025 11:30 AM EST Office Visit [facility]astro[facility]ology Clinic 10 [place] [address] Unknown, Unknown, MD Isidro, Kamilah Linn, SUKH 10 [place] [address] Scheduled Procedures Name Priority Associated Diagnoses Date/Ti [...] clinician's provided indication for this examination in Epic: Outside Radiology Order; positive colorguard test, constipation, [...] lesions. Procedure Note Janet Perdomo MD - 01/02/2024 CT ABDOMEN/PELVIS WITH CONTRAST Referring clinician's provided indication for this examination in [facility]:Outside Radiology Order; positive colorguard test, constipation, [...] evidence of mass lesion. Sandeep Chávez MD IM CT ABD/PELVIS Final Result documented in this encounter Visit Diagnoses Diagnosis Positive colorectal cancer screening using Cologuard test- Primary Constipation, unspecified constipation type Acquired megacolon Megacolon, other than Hirschsprung's Bustamante's esophagus with dysplasia documented in this encounter Care Teams Commercial Print Salesman Relationship Specialty Start Date End Date Brandon Tovar MD [address] [place] [address] PCP - General Internal Medicine 03/09/18 documented as of this encounter Additional Source Comments The information contained in this document represents components of the legal health record. It is not the complete legal health record.[facility]
--- OUTSIDE RECORDS SUMMARY | 2025-08-01 13:17 | XMS_ITS | Encounter Summary ---
Author Organization [facility] Address [address] [place] [address] [place] [address] Phone Care Team Providers Care Physician Liaison Name Role Phone Brandon Tovar MD Primary Care Provider [phone] Encounter Details Date Type Department Care Team (Late st Contact Info) Description 10/04/2022 Procedure Pass [facility] Endoscopy Admitting Dept Virtual Department [address] [place] [address] Social History Tobacco Use Types Packs/Day Years [...] Pass [facility] Endoscopy Admitting Dept Virtual Department [address] [place] [address] 10/07/2025 9:30 AM EST Hospital Encounter [facility] Endoscopy Admitting Dept Virtual Department [address] [place] [address] Sandeep Chávez MD [address] [place] [address] [email or web address] 10/07/2025 9:30 AM EST - 10/07/2025 10:00 AM EST Surgery [facility] Endoscopy Admitting Dept Virtual Department [address] [place] [address] Sandeep Chávez MD [address] [address] [email or web address] ESOPHAGOGASTRODUODENOSCOPY 10/15/2025 11:30 AM EST Office Visit [facility]astroenterology Clinic 10 [place] [address] Unknown, Unknown, Kamilah Beltrán, SUKH [address] [place] [address] Scheduled Procedures Name Priority Associated Diagnoses Date/Ti me ESOPHAGOGASTRODUODENOSCOPY direct egd 10/07/2025 9:30 AM EST documented as of this encounter Visit Diagnoses Not on filedocumented in this encounter Care Teams Physician Liaison Relationship Specialty Start Date End Date Brandon Tovar MD [address] [place] [address] PCP - General Internal Medicine 03/09/18 documented as of this encounter Additional Source Comments The information contained in this document represents components of the legal health record. It is not the complete legal health record.[facility]
== END 2025-08-01 12:00 | disposition home or self-care (01) ==
LOC: HO.HUSH 11:25
PROVIDERS: PCP Internal Medicine; Visit Provider Urology
DX: N40.1 Benign prostatic hyperplasia with lower urinary tract symptoms (principal); C61 Malignant neoplasm of prostate; Z19.1 Hormone sensitive malignancy status; R35.1 Nocturia
CPT/HCPCS: 99213

== ENCOUNTER → 2025-08-01 11:25 | Outpatient (BNVA) | payer MEDICARE, MEDICAID, SELFPAY | PROVIDERS: PCP Internal Medicine; Visit Provider Urology | DX: Z51.11 Encounter for antineoplastic chemotherapy (principal); C61 Malignant neoplasm of prostate; Z19.1 Hormone sensitive malignancy status | CPT/HCPCS: 96402; 99212; J9217 ==

== ENCOUNTER 2025-09-18 21:47 | Emergency (ER) | payer MEDICARE, MEDICAID, SELFPAY ==
--- NOTE | ~2025-09-18 | CT_ITS ---
CLINICAL HISTORY: trauma CT head without contrast Comparison: CT/REG/SR - CT HEAD/BRAIN WO IV CON - 06/11/25 03:58 EDT Findings: Images degraded by patient motion. Generalized cerebral and cerebellar atrophy is again identified. The size and shape of the ventricular system is within normal limits for this degree of atrophy. Moderate areas of low attenuation are again seen within the periventricular and deep white matter. No midline shift or mass effect. No definitive intracranial hemorrhage seen given the limitation of the patient motion. No displaced calvarial fractures. IMPRESSION: Motion degraded study. Given that limitation, no fracture or intracranial hemorrhage. This document has been electronically signed by: Michael Miller MD on 09/19/2025 01:34:34
--- NOTE | ~2025-09-18 | CT_ITS ---
CLINICAL HISTORY: trauma CT cervical spine without contrast Comparison: CT/SR - CT CERVICAL SPINE WO IV CON - 06/11/25 03:58 EDT Findings: Images degraded by patient motion. This decreases the sensitivity and specificity for fracture. Bones are osteopenic. The alignment is unchanged compared to the patient's prior study. Multilevel bridging anterior osteophyte formation is seen. Additionally, there is bulky posterior osteophyte formation at multiple levels. There is an irregularity of the base of the odontoid process is seen on the patient's prior study suggesting a prior odontoid fracture. Additionally, there is unchanged irregularity along the left aspect of the anterior arch of C1, also unchanged and likely related to remote fracture. No new fractures are identified. Upper airway is patent. No apical pneumothorax. IMPRESSION: 1. Unchanged examination. No acute fracture seen. Unchanged fracture deformity of the base of the odontoid process along the left aspect of the anterior arch of C1. Please see above for full details. This document has been electronically signed by: Michael Miller MD on 09/19/2025 01:35:22
[2025-09-18 21:57] VITALS: BP 171/84; BP 179/72; PULSE 73; PULSE 75; RESP 18; TEMP 36.6; O2SAT 100; BMI 22.0
--- NOTE | 2025-09-18 23:18 | PC.NURSE ---
pt here from [facility], mechanical fall, non verbal at baseline. Staff report pt got right back up following the fall. tripped getting into bed. staff at bedside.
[2025-09-18 23:49] VITALS: BP 146/84; PULSE 73; RESP 16; TEMP 36.4; O2SAT 96
--- NOTE | 2025-09-19 00:07 | ECG_ITS ---
Test Reason : fall Blood Pressure : */* mmHG Vent. Rate : 71 BPM Atrial Rate : 71 BPM P-R Int : 156 ms QRS Dur : 80 ms QT Int : 376 ms P-R-T Axes : * 19 46 degrees QTcB Int : 408 ms Sinus rhythm with Premature atrial complexes Otherwise normal ECG When compared with ECG of 26-Feb-2024 13:03, No significant change was found Referred By: Wily Saldaña Electronically Signed By: GATITO CARDENAS
--- NOTE | 2025-09-19 00:22 | ED.FALL ---
HPI - Fall General Chief Complaint: Fall Stated Complaint: FALL WITH HEADSTRIKE Time Seen by Provider: 09/18/25 23:52 Source: EMS and other (care home staff) Mode of arrival: EMS Limitations: other History of Present Illness ED Provider: Piper HPI Narrative: Patient is a 74 year old male that is nonverbal and deaf presenting today from a care home after witnessed fall from standing with headstrike, no LOC, pt is not on blood thinners. Pt does not appear to be uncomfortable or in pain. Upon palpation and passive ROM of upper and lower extremity the pt does not appear to be restricted or in any pain. An aide from the care home is with the pt, not the one that was with him at this time of fall, that reports the patient appears to be at baseline and does not look to be in any discomfort. He has an abrasion on his left forehead with slight erythema, not activley bleeding. Related Data Home Medications ?Medication ?Instructions ?Recorded ?Confirmed docusate sodium 100 mg tablet 100 mg PO BID 11/19/20 07/10/24 hydrochlorothiazide 25 mg tablet 25 mg PO DAILY@0800 11/19/20 07/10/24 lisinopril 20 mg tablet 20 mg PO QAM 11/19/20 07/10/24 pravastatin 40 mg tablet 40 mg PO QPM 11/19/20 07/10/24 lactulose 10 gram/15 mL oral 30 ml PO QPM 08/25/21 07/10/24 solution loratadine 10 mg tablet 10 mg PO DAILY PRN Allergy Symptoms 08/25/21 07/10/24 multivitamin with folic acid 400 1 tab PO DAILY@2100 08/25/21 07/10/24 mcg tablet (Thera) omeprazole 40 mg capsule,delayed 40 mg PO QAM 08/25/21 07/10/24 release Lactobacillus rhamnosus GG 10 1 cap PO QAM 02/25/22 07/10/24 billion cell capsule (Culturelle) bacitracin zinc 500 unit/gram 1 appl topical QID PRN Wound Care 02/25/22 07/10/24 topical ointment magnesium hydroxide 400 mg/5 mL 30 ml PO BEDTIME 02/25/22 07/10/24 oral suspension (Milk of Magnesia) polyethylene glycol 3350 17 17 g PO DAILY@1700 02/25/22 07/10/24 gram/dose oral powder (Miralax) acetaminophen 325 mg tablet 650 mg PO Q6H PRN Fever Or Pain 02/17/24 07/10/24 bisacodyl 10 mg rectal suppository 10 mg TN DAILY@2000 PRN 02/17/24 07/10/24 (OneLAX Bisacodyl) constiaption sodium phosphates 19 gram-7 118 ml TN DAILY PRN Constipation 02/17/24 07/10/24 gram/118 mL enema (Enema Disposable) terbinafine HCl 1 % topical cream 1 appl topical BID PRN Rash 02/17/24 07/10/24 (Antifungal (terbinafine)) diazepam 10 mg tablet 10 mg PO ONCE PRN eye appointment 02/26/24 07/10/24 guaifenesin 100 mg/5 mL oral 200 mg PO Q6H PRN cough/cold 02/26/24 07/10/24 liquid (Tussin Mucus-Chest Congestion) hydrocortisone 1 % topical cream 1 appl topical BID PRN Hemorrhoids 02/26/24 07/10/24 mineral oil-iso myristat-water 1 appl topical MOWEFR 02/26/24 07/10/24 lotion Previous Rx's ?Medication ?Instructions ?Recorded levofloxacin 500 mg tablet 500 mg PO daily 3 days #3 tabs 05/22/24 finasteride 5 mg tablet 5 mg PO QPM 90 days #90 tabs 02/01/25 terazosin 10 mg capsule 10 mg PO BEDTIME 90 days #90 caps 04/02/25 Allergies Allergy/AdvReac Type Severity Reaction Status Date / Time azithromycin (AZITHROMYCIN) Allergy Unknown UNKOWN Verified 09/18/25 22:00 environmental allergies Allergy Unknown Unknown Verified 09/18/25 22:00 Macrolide Antibiotics Allergy Unknown unknown Verified 09/18/25 22:00 (MACROLIDE ANTIBIOTICS) Macrolides and ketolides Allergy Unknown Unknown Uncoded 09/18/25 22:00 Review of Systems Review of Systems: Unable to assess due to pt being nonverbal and deaf. Constitutional: Constitutional: Denies body ache(s), Denies chills, Denies fever(s) and Denies headache(s) ENT: Denies headache(s) Neurologic: Denies headache(s) PMFSH Past Medical History Medical History HTN (hypertension) BPH (benign prostatic hyperplasia) Barretts syndrome GERD (gastroesophageal reflux disease) [place]GAN (hard of hearing) Non-verbal learning disorder Social History Social History Household Members: None Household Members Other:: From care home Housing: Unknown / Unable to assess Housing Other:: Long-Term Do you presently have visiting nurse or other home services: Yes (long-term) Comment: svp group director at bedside Patient Tobacco Use Status: Never used Tobacco Advance Directives: No Advance Directives Information Provided: No Advance Directives Date on File: 01/09/24 service: No Current occupational status: disabled Physical Exam Exam: Exam: Limited due to the patient's mental status Vital Signs: Vital Signs: Last Vital Signs Temp 97.6 F 09/18/25 23:49 Pulse 73 09/18/25 23:49 Resp 16 09/18/25 23:49 BP 146/84 H 09/18/25 23:49 Pulse Ox 96 09/18/25 23:49 O2 Del Method Room Air 09/18/25 23:49 BMI result Body Mass Index 22.0 Const: General: healthy appearing, comfortable, no acute distress, alert and awake Nutritional Appearance: well nourished Limitations: other limitations (Nonverbal and deaf) HEENT: Head: No atraumatic and Yes abrasion (left forehead) Head images:  1. Eyes: Eyelids: Yes eyelids normal Conjunctivae: conjunctivae normal Sclerae: sclerae normal Corneas: corneas normal Pupils: Fixed pupils EOM: EOMs intact bilaterally Resp: Effort & Inspection: normal respiratory effort, no audible wheezes and not labored Auscultation: clear to auscultation bilaterally Cardio: Rate: regular rate Rhythm: regular rhythm GI: Palpation (GI): Soft to palpation, not firm, nontender and no guarding Extrem: Other: No tenderness has been ablation of the hips bilaterally or lower extremities bilaterally. no shortening or rotation of the lower extremities. General: Yes full ROM Medical Decision Making Medical Decision Making MDM Narrative: 74-year-old male presents for evaluation of a reported nonsyncopal fall. The patient is deaf and nonverbal, history is significantly limited. The staff member with him was not with him when he fell. It was reported there was no loss of consciousness. The patient appears quite comfortable. He has been abrasion on his forehead. Plan for CT scan of the brain and cervical spine. We will obtain an EKG, basic labs and a urinalysis. The patient's vital signs are stable. Per staff he is acting at his baseline Differential Diagnosis Differential Diagnoses: The differential diagnosis associated with the presentation includes Mechanical fall Syncope Intracranial hemorrhage Calvarial fracture Cervical strain Cervical fracture UTI Arrhythmia Lab Data MDM Lab Attestation statement: I reviewed the patient's lab results. 09/19/25 00:30 09/19/25 00:30 Labs: Lab Results 09/19/25 Range/Units 00:30 WBC 6.9 (4.8-10.8) X10*3/uL RBC 4.55 L (4.60-5.80) X10*6/uL Hgb 13.1 L (14.0-18.0) g/dl Hct 41.5 L (42.0-52.0) % MCV 91.2 (80.0-98.0) fL MCH 28.8 (27.0-33.0) pg MCHC 31.6 (31.0-36.0) g/dl RDW 14.0 (11.0-16.0) % Plt Count 165 D (160-400) X10*3/uL MPV 12.5 H (9.4-12.4) fL Immature Gran % (Auto) 0.3 (0.0-0.4) % Neut % (Auto) 49.1 (45-73) % Lymph % (Auto) 41.4 H (20-40) % [place] % (Auto) 7.4 (2-11) % Eos % (Auto) 1.2 (0-4) % Baso % (Auto) 0.6 (0-2) % Lymph # (Auto) 2.9 (1.2-4.9) X10*3/uL [place] # (Auto) 0.5 (0.1-1.2) X10*3/uL Eos # (Auto) 0.1 (0.0-0.4) X10*3/uL Baso # (Auto) 0.0 (0.0-0.2) X10*3/uL Abs Immat Gran (auto) 0.02 (0.00-0.03) X10*3/uL Absolute Neuts (auto) 3.4 (2.0-8.3) x10*3/uL Absolute Nucleated RBC 0.000 (0.0-0.012) X10*3/uL Nucleated RBC % (auto) 0.0 (0.0-0.2) /100WBC Sodium 144 (135-145) mmol/L Potassium 4.6 (3.3-5.1) mmol/L Chloride 108 (96-108) mmol/L Carbon Dioxide 28 (22-29) mmol/L Anion Gap 13 (12-20) BUN 15 (9-16) mg/dL Creatinine 0.75 (0.5-1.4) mg/dL Estim Creat Clear Calc 86.2 Estimated GFR > 60 Random Glucose 107 (60-115) mg/dL Calcium 9.1 (8.4-10.2) mg/dL Urine Color Yellow Urine Appearance Clear Urine pH 7.5 (5.0-9.0) Ur Specific [place] 1.010 (1.005-1.025) Urine Protein Negative (Neg-Trace) mg/dL Urine Glucose (UA) Negative (Negative) mg/dL Urine Ketones Negative (Negative) mg/dL Urine Blood Negative (Negative) Urine Nitrite Negative (Negative) Ur Leukocyte Esterase Negative (Negative) Radiology Impression Discussion of test interpretation with radiology: I have reviewed the radiologist's reading. Radiologist Impression: Findings: Images degraded by patient motion. Generalized cerebral and cerebellar atrophy is again identified. The size and shape of the ventricular system is within normal limits for this degree of atrophy. Moderate areas of low attenuation are again seen within the periventricular and deep white matter. No midline shift or mass effect. No definitive intracranial hemorrhage seen given the limitation of the patient motion. No displaced calvarial fractures. IMPRESSION: Motion degraded study. Given that limitation, no fracture or intracranial hemorrhage. This document has been electronically signed by: Michael Miller MD on 09/19/2025 01:34:34 Findings: Images degraded by patient motion. This decreases the sensitivity and specificity for fracture. Bones are osteopenic. The alignment is unchanged compared to the patient's prior study. Multilevel bridging anterior osteophyte formation is seen. Additionally, there is bulky posterior osteophyte formation at multiple levels. There is an irregularity of the base of the odontoid process is seen on the patient's prior study suggesting a prior odontoid fracture. Additionally, there is unchanged irregularity along the left aspect of the anterior arch of C1, also unchanged and likely related to remote fracture. No new fractures are identified. Upper airway is patent. No apical pneumothorax. IMPRESSION: 1. Unchanged examination. No acute fracture seen. Unchanged fracture deformity of the base of the odontoid process along the left aspect of the anterior arch of C1. Please see above for full details. This document has been electronically signed by: Michael Miller MD on 09/19/2025 01:35:22 Discharge Plan Discharge Clinical Impression: Fall, Closed head injury Patient Disposition: Home, Self-Care Instructions: Fall Prevention for Older Adults (ED), Head Injury (ED) Additional Instructions: Your workup in the ER today was reassuring pain This includes your labs, EKG. You do not have a UTI. The CT scan of the brain and cervical spine did not show any acute injuries. Follow up with your primary doctor, return for new or worsening symptoms Prescriptions: No Action levofloxacin 500 mg tablet 500 mg PO daily 3 Days Qty: 3 0RF Rx Instructions: take 1 tablet day before procedure, 1 tablet day of procedure and 1 tablet day after procedure finasteride 5 mg tablet 5 mg PO QPM 90 Days Qty: 90 1RF pravastatin 40 mg Tablet 40 mg PO QPM lisinopril 20 mg Tablet 20 mg PO QAM Protocol: Hold for SBP< HOLD for SBP < : 90 hydrochlorothiazide 25 mg Tablet 25 mg PO DAILY@0800 Protocol: Hold for SBP< HOLD for SBP < : 90 docusate sodium 100 mg Tablet 100 mg PO BID magnesium hydroxide [Milk of Magnesia] 400 mg/5 mL suspension 30 ml PO BEDTIME bacitracin zinc 500 unit/gram Ointment 1 appl TOPICAL QID PRN (Reason: Wound Care) polyethylene glycol 3350 [Miralax] 17 gram/dose Powder 17 g PO DAILY@1700 Culturelle 10 billion cell Capsule 1 cap PO QAM guaifenesin [Tussin Mucus-Chest Congestion] 100 mg/5 mL Liquid 200 mg PO Q6H PRN (Reason: cough/cold) hydrocortisone 1 % Cream 1 appl TOPICAL BID PRN (Reason: Hemorrhoids) diazepam 10 mg Tablet 10 mg PO ONCE PRN (Reason: eye appointment) Rx Instructions: 2 hours before mineral oil-iso myristat-water Lotion 1 appl TOPICAL MOWEFR Rx Instructions: TWICE DAILY multivitamin with folic acid [Thera] 400 mcg tablet 1 tab PO DAILY@2100 omeprazole 40 mg capsule,delayed release(DR/EC) 40 mg PO QAM lactulose 10 gram/15 mL solution 30 ml PO QPM loratadine 10 mg tablet 10 mg PO DAILY PRN (Reason: Allergy Symptoms) acetaminophen 325 mg tablet 650 mg PO Q6H PRN (Reason: Fever Or Pain) bisacodyl [OneLAX Bisacodyl] 10 mg suppository 10 mg TN DAILY@2000 PRN (Reason: constiaption) Rx Instructions: on 4th day of no BM if MOM not effective Enema Disposable 19-7 gram/118 mL enema 118 ml TN DAILY PRN (Reason: Constipation) Rx Instructions: on day 5 without BM terbinafine HCl [Antifungal (terbinafine)] 1 % cream 1 appl topical BID PRN (Reason: Rash) Rx Instructions: feet terazosin 10 mg capsule 10 mg PO BEDTIME 90 Days Qty: 90 1RF Print Language: Unable To Collect
[2025-09-19 00:49] LABS: MANUAL DIFF FLAG NO
[2025-09-19 00:50] LABS: Appearance Urine Clear; Glucose Urine UA Negative (Negative); PH 7.5 (5.0-9.0); Specific Gravity - Urine 1.010 (1.005-1.025)
[2025-09-19 00:54] LABS: Hematocrit 41.5 % (42.0-52.0); Hemoglobin 13.1 g/dl (14.0-18.0); Imm Gran Abs Auto 0.02 X10*3/uL (0.00-0.03); Imm Gran Pct Auto 0.3 % (0.0-0.4); Lymphocytes Absolute Auto 2.9 X10*3/uL (1.2-4.9); Mean Corpuscular HGB Conc 31.6 g/dl (31.0-36.0); Mean Corpuscular Hemoglobin 28.8 pg (27.0-33.0); Mean Corpuscular Volume 91.2 fL (80.0-98.0); NRBC Abs Auto 0.000 X10*3/uL (0.0-0.012); NRBC Pct Auto 0.0 /100WBC (0.0-0.2); Platelet Count 165 X10*3/uL (160-400); Red Blood Count 4.55 X10*6/uL (4.60-5.80); White Blood Count 6.9 X10*3/uL (4.8-10.8)
[2025-09-19 01:02] LABS: Anion Gap 13 (12-20); Blood Urea Nitrogen 15 mg/dL (9-16); Calcium 9.1 mg/dL (8.4-10.2); Carbon Dioxide 28 mmol/L (22-29); Chloride 108 mmol/L (96-108); Creatinine Clr Calc Pharmacy 86.2; Estimated Glomerular Filt Rate > 60; Potassium 4.6 mmol/L (3.3-5.1); Sodium 144 mmol/L (135-145)
--- NOTE | 2025-09-19 02:23 | PC.NURSE ---
pt d/c, awaiting EMS transport
[2025-09-19 02:36] VITALS: BP 157/88; PULSE 70; RESP 18; TEMP 36.4; O2SAT 70
[2025-09-19 02:43] VITALS: BP 157/88; PULSE 70; RESP 18; TEMP 36.4; O2SAT 70
--- OUTSIDE RECORDS SUMMARY | 2025-09-19 05:26 | XMS_ITS | Encounter Summary ---
Author Organization [facility] Address [address] [place] [address] [place] [address] Phone Care Team Providers Care Actuarial Internship Name Role Phone Brandon Tovar MD Primary Care Provider [phone] Encounter Details Date Type Department Care Team (Late st Contact Info) Description 10/04/2022 Procedure Pass [facility] Endoscopy Admitting Dept Virtual Department [address] [place] [id number] Social History Tobacco Use Types Packs/Day Years [...] Pass [facility] Endoscopy Admitting Dept Virtual Department [address] [place] [address] 10/07/2025 9:30 AM EST Hospital Encounter [facility] Admitting Dept Virtual Department [address] [place] [address] Sandeep Chávez MD [address] [place] [address] [email or web address] 10/07/2025 9:30 AM EST - 10/07/2025 10:00 AM EST Surgery [facility] Endoscopy Admitting Dept Virtual Department [address] [place] [address] Sandeep Chávez MD [address] [address] [email or web address] ESOPHAGOGASTRODUODENOSCOPY 10/15/2025 11:30 AM EST Office Visit [facility] [address] [place] [address] Unknown, Unknown, Kamilah Beltrán, SUKH [address] [place] [address] Scheduled Procedures Name Priority Associated Diagnoses Date/Ti me ESOPHAGOGASTRODUODENOSCOPY direct egd 10/07/2025 9:30 AM EST documented as of this encounter Visit Diagnoses Not on filedocumented in this encounter Care Teams Actuarial Internship Relationship Specialty Start Date End Date Brandon Tovar MD [address] [place] [address] PCP - General Internal Medicine 03/09/18 documented as of this encounter Additional Source Comments The information contained in this document represents components of the legal health record. It is not the complete legal health record.[facility]
--- OUTSIDE RECORDS SUMMARY | 2025-09-19 05:26 | XMS_ITS | Encounter Summary ---
Author Organization [facility] Address [address] [place] [address] [place] [address] Phone Care Team Providers Care Registrar Nurses' Registry Name Role Phone Brandon Tovar MD Primary Care Provider [phone] Encounter Details Date Type Department Care Team (Latest Contact Info) Description 09/19/2018 Transcribe Orders [facility] Phleb Frannie [address] [place] [address] María Elena Sullivan PA-C 310 [facility]. [address] [place] [address] Iron deficiency anemia, unspecified iron deficiency anemia [...] [facility] End[facility] Admitting Dept Virtual Department [address] [place] [address] 10/07/2025 9:30 AM EST Hospital Encounter [facility] Admitting Dept Virtual Department [address] [place] [address] Sandeep Chávez MD [address] [address] [email or web address] 10/07/2025 9:30 AM EST - 10/07/2025 10:00 AM EST Surgery [facility] Endoscopy Admitting Dept Virtual Department [address] [place] [address] Sandeep Chávez MD [address] [address] [email or web address] ESOPHAGOGASTRODUODENOSCOPY 10/15/2025 11:30 AM EST Office Visit [facility] 10 [place] [address] Unknown, Unknown, Kamilah Beltrán, SUKH [address] [place] [address] Scheduled Procedures Name Priority Associated Diagnoses Date/Ti co ESOPHAGOGASTRODUODENOSCOPY direct egd 10/07/2025 9:30 AM EST documented as of this encounter Results * Fecal occult blood, multiple (10/12/2018 3:46 PM EST) FECAL OCC BLD 1 DATE 12,072,018 [facility] Occult bld, stool, #1 Negative Negative [facility] FECAL OCC BLD 2 DATE 12,092,018 [facility] OCCULT BLD, STOOL, #2 Negative Negative [facility] FECAL OCC BLD 3 DATE 12,122,018 [facility] FECAL OCC BLD 3 RSLT Negative Negative [facility] Stool (Stool) 10/12/2018 3:4 6 PM EST 10/12/2018 3:49 PM EST us María Elena Sullivan PA-C BODY FLUIDS AND STOOLS ORDERABL ES Final Result [address] [address] * Vitamin B12 (09/19/2018 11:13 AM EST) VITAMIN B12 1,241 232 - 1,245 pg/mL [facility] Blood 09/19/2018 11:1 3 AM EST 09/19/2018 11:28 AM EST us María Elena Sullivan PA-C LAB BLOOD BKR ORDERABLES Final Result Performing Organization Address [facility] Co de Phone Number [address] [address] * Ferritin (09/19/2018 11:13 AM EST) FERRITIN 337 30 - 400 ug/L [facility] Blood 09/19/2018 11:1 3 AM EST 09/19/2018 11:28 AM EST us María Elena Sullivan PA-C LAB BLOOD BKR ORDERABLES Final Result Performing Organization Address [facility] Phone Number [address] [address] * (ABNORMAL) Folate (09/19/2018 11:13 AM EST) FOLIC ACID >20.0(H) 4.2 - 19.9 ng/mL [facility] Blood 09/19/2018 11:1 3 AM EST 09/19/2018 11:28 AM EST us María Elena Sullivan PA-C LAB BLOOD BKR ORDERABLES Final Result Performing Organization Address [facility] Phone Number [address] [address] * (ABNORMAL) Iron and iron binding capacity (09/19/2018 11:13 AM EST) IRON 53 45 - 160 ug/dL [facility] IRON BINDING CAPACITY 295 228 - 428 ug/dL [facility] TRANSFERRIN SATURAT. 18(L) 20 - 55 % [facility] Blood 09/19/2018 11:1 3 AM EST 09/19/2018 11:28 AM EST us María Elena Sullivan PA-C LAB BLOOD BKR ORDERABLES Final Result Performing Organization Address City/[facility]/ZIP Co de Phone Number [address] [address] * CBC (09/19/2018 11:13 AM EST) WBC 7.58 3.40 - 11.20 K/uL [facility] RBC 5.00 4.50 - 5.50 M/uL [facility] HGB 14.3 13.0 - 17.0 g/dL [facility] HCT 44.0 40.0 - 51.0 % [facility] PLT 250 130 - 400 K/uL [facility] MCV 88.0 79.0 - 98.0 fL [facility] MCH 28.6 27.0 - 34.8 pg [facility] MCHC 32.5 31.5 - 36.0 g/dL [facility] RDW 14.1 10.8 - 14.6 % [facility] MPV 12.2 9.4 - 12.4 fl [facility] NRBC 0.00 0.00 /100 WBCs [facility] ABSOLUTE NRBC 0.00 0.00 K/uL [facility] Blood 09/19/2018 11:1 3 AM EST 09/19/2018 11:28 AM EST us María Elena Sullivan PA-C LAB BLOOD BKR ORDERABLES Final Result [address] [address] * Immunoglobulin A (09/19/2018 11:13 AM EST) IgA 274 70 - 400 mg/dL [facility] Blood 09/19/2018 11:1 3 AM EST 09/19/2018 11:28 AM EST María Elena Sullivan PA-C LAB BLOOD BKR ORDERABLES Final Result [address] [address] * Tissue transglutaminase IgA (09/19/2018 11:13 AM EST) TTG IGA ANTIBODY <1.2 <4.0 (Negative) U/mL [facility] DPT OF LAB MED AND PAT+ Blood 09/19/2018 11:1 3 AM EST 09/19/2018 11:28 AM EST us María Elena Sullivan PA-C LAB BLOOD BKR ORDERABLES Final Result [facility] DPT OF LAB MED AND PAT+ [address] [place] [address] documented in this encounter Visit Diagnoses Diagnosis Iron deficiency anemia, unspecified iron deficiency anemia type- Primary Epidemic vomiting syndrome documented in this encounter Care Teams Registrar Nurses' Registry Relationship Specialty Start Date End Date Brandon Tovar MD [address] [place] [phone] PCP - General Internal Medicine 03/09/18 documented as of this encounter Additional Source Comments The information contained in this document represents components of the legal health record. It is not the complete legal health record.[facility]
--- OUTSIDE RECORDS SUMMARY | 2025-09-19 05:26 | XMS_ITS | Encounter Summary ---
Author Organization [facility] Address [address] [address] Phone Care Team Providers Care Wound Nurse Name Role Phone Brandon Tovar MD Primary Care Provider [phone] Reason for Referral * MRI/CAT Scan - Closed Specialty Diagnoses / Procedures Referred By Edin t Referred To Contact Radiology Diagnoses Positive colorectal cancer screening using Cologuard test Constipation, unspecified constipation type Acquired megacolon Bustamante's esophagus with dysplasia Procedures CT Abdomen/Pelvis Sandeep Chávez MD [address] [place] [address] Phone: tel: fax: [email or web address] Referral ID Status Reason Start Date Expiration Date Visits Re quested Visits Authorized [id number] Closed 09/21/2023 1 1 Encounter Details Date Type Department Care Team (Latest Contact Info) Description 09/21/2023 Transcribe Orders Virtual Department [address] [place] [address] Sandeep Chávez MD [address] [address] [email or web address] Positive colorectal cancer screening using Cologuard test [...] Pass [facility] Endoscopy Admitting Dept Virtual Department [address] [place] [address] 10/07/2025 9:30 AM EST Hospital Encounter [facility] Endoscopy Admitting Dept Virtual Department [address] [place] [address] Sandeep Chávez MD [address] [place] [address] [email or web address] 10/07/2025 9:30 AM EST - 10/07/2025 10:00 AM EST Surgery [facility] Endoscopy Admitting Dept Virtual Department [address] [place] [address] Sandeep Chávez MD [address] [place] [address] [email or web address] ESOPHAGOGASTRODUODENOSCOPY 10/15/2025 11:30 AM EST Office Visit [facility] 10 [place] [address] Unknown, Unknown, MD Isidro, Kamilah Linn, SUKH [address] [place] [address] Scheduled Procedures Name Priority Associated Diagnoses Date/Ti [...] clinician's provided indication for this examination in [facility]:Outside Radiology Order; positive colorguard test, constipation, acquiredmega [...] dysplasia documented in this encounter Care Teams Wound Nurse Relationship Specialty Start Date End Date Brandon Tovar MD [address] [place] [address] PCP - General Internal Medicine 03/09/18 documented as of this encounter Additional Source Comments The information contained in this document represents components of the legal health record. It is not the complete legal health record.[facility]
--- OUTSIDE RECORDS SUMMARY | 2025-09-19 05:26 | XMS_ITS | Clinical Summary ---
Author Organization [facility] Address [address] [address] Phone Care Team Providers Care Senior Writer Name Role Phone Brandon Tovar MD Primary Care Provider [phone] Allergies Active Allergy Reactions Criticality Noted Date [...] Pass [facility] Endoscopy Admitting Dept Virtual Department [address] [place] [address] 10/07/2025 9:30 AM EST Hospital Encounter [facility] Endoscopy Admitting Dept Virtual Department [address] [place] [address] Sandeep Chávez MD [address] [address] [email or web address] 10/07/2025 9:30 AM EST - 10/07/2025 10:00 AM EST Surgery [facility] Endoscopy Admitting Dept Virtual Department [address] [place] [address] Sandeep Chávez MD [address] [address] [email or web address] ESOPHAGOGASTRODUODENOSCOPY 10/15/2025 11:30 AM EST Office Visit [facility] [address] [place] [address] Unknown, Unknown, Kamilah Beltrán, SUKH [address] [place] [address] Scheduled Procedures Name Priority Associated Diagnoses Date/Ti [...] EST) FECAL OCC BLD 1 DATE 12,072,[id number] [facility] Occult bld, stool, #1 Negative Negative [facility] FECAL OCC BLD 2 DATE 12,092,018 [facility] OCCULT BLD, STOOL, #2 Negative Negative [facility] FECAL OCC BLD 3 DATE 12,122,018 [facility] FECAL OCC BLD 3 RSLT Negative Negative [facility] Stool (Stool) 10/12/2018 3:4 6 PM EST 10/12/2018 3:49 PM EST María Elena Sullivan PA-C BODY FLUIDS AND STOOLS ORDERABL ES Final Result [address] [address] from Last 3 Months or Most Recently Relevant to Health Maintenance Insurance MEDICARE PART A & B [employer] MEDICARE PART A & B [employer] MEDICARE PART A & B HEALTH MEDICARE PART A & B Member Subscriber Plan / Payer ( fective 1973-) Name:Wilfredo Sands Member ID:[id number] Relation to Subscriber:Self Name:Wiflredo Sands Subscriber ID:[id number] Payer ID:[id number] Group ID:Not on file Type:Medicare Address: [employer] 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 It is not the complete legal health record.[facility]
--- OUTSIDE RECORDS SUMMARY | 2025-09-19 05:26 | XMS_ITS | Encounter Summary ---
Author Organization [facility] Address [address] [facility] [address] [place] [address] Phone Care Team Providers Care Device Processing Engineer Name Role Phone Brandon Tovar MD Primary Care Provider [phone] Encounter Details Date Type Department Care Team (Late st Contact Info) Description 09/21/2023 Procedure Pass [facility], Ct Scan - [address] [address] Social History Tobacco Use Types Packs/Day Years [...] [facility] Endoscopy Admitting Dept Virtual Department [address] [place] [address] 10/07/2025 9:30 AM EST Hospital Encounter [facility] Admitting [facility] Virtual Department [address] [place] [address] Sandeep Chávez MD [address] [address] [email or web address] 10/07/2025 9:30 AM EST - 10/07/2025 10:00 AM EST Surgery [facility] Endoscopy Admitting Dept Virtual Department [address] [place] [address] Sandeep Chávez MD [address] [address] [email or web address] ESOPHAGOGASTRODUODENOSCOPY 10/15/2025 11:30 AM EST Office Visit [facility] 10 [place] [address] Unknown, Unknown, MD Isidro, Kamilah Linn, SUKH [address] [place] [address] Scheduled Procedures Name Priority Associated Diagnoses Date/Ti me ESOPHAGOGASTRODUODENOSCOPY direct egd 10/07/2025 9:30 AM EST documented as of this encounter Visit Diagnoses Not on filedocumented in this encounter Care Teams Device Processing Engineer Relationship Specialty Start Date End Date Brandon Tovar MD [address] [place] [phone] PCP - General Internal Medicine 03/09/18 documented as of this encounter Additional Source Comments The information contained in this document represents components of the legal health record. It is not the complete legal health record.[facility]
--- OUTSIDE RECORDS SUMMARY | 2025-09-19 05:26 | XMS_ITS | Encounter Summary ---
Author Organization [facility] Address [address] [place] [address] Phone Care Team Providers Care Ham Trimmer Name Role Phone Brandon Tovar MD Primary Care Provider [phone] Encounter Details Date Type Department Care Team (Late st Contact Info) Description 11/10/2018 Procedure Pass [facility] Endoscopy Admitting Dept Virtual Department [address] [place] [address] Social History Tobacco Use Types Packs/Day Years [...] Pass [facility] Endoscopy Admitting Dept Virtual Department [address] [place] [address] 10/07/2025 9:30 AM EST Hospital Encounter [facility] Endoscopy Admitting Dept Virtual Department [address] [place] [address] Sandeep Chávez MD [address] [place] [address] [email or web address] 10/07/2025 9:30 AM EST - 10/07/2025 10:00 AM EST Surgery [facility] Endoscopy Admitting Dept Virtual Department [address] [place] [address] Sandeep Chávez MD [address] [address] [email or web address] ESOPHAGOGASTRODUODENOSCOPY 10/15/2025 11:30 AM EST Office Visit [facility] 10 [place] [address] Unknown, Unknown, Kamilah Beltrán NP 10 [place] [address] Scheduled Procedures Name Priority Associated Diagnoses Date/Ti me ESOPHAGOGASTRODUODENOSCOPY direct egd 10/07/2025 9:30 AM EST documented as of this encounter Visit Diagnoses Not on filedocumented in this encounter Care Teams Ham Trimmer Relationship Specialty Start Date End Date Brandon Tovar MD [address] [place] [phone] PCP - General Internal Medicine 03/09/18 documented as of this encounter Additional Source Comments The information contained in this document represents components of the legal health record. It is not the complete legal health record.[facility]
== END 2025-09-19 02:45 | disposition home or self-care (01) ==
PROVIDERS: Physician Assistant; Emergency Provider Emergency Medicine; PCP Internal Medicine
DX: S09.90XA Unspecified injury of head, initial encounter (principal); W19.XXXA Unspecified fall, initial encounter; Y93.9 Activity, unspecified; Y92.9 Unspecified place or not applicable; H91.3 Deaf nonspeaking, not elsewhere classified; I10 Essential (primary) hypertension; K21.9 Gastro-esophageal reflux disease without esophagitis
CPT/HCPCS: 36415; 70450; 72125; 80048; 81003; 85025; 93005; 99284

== ENCOUNTER → 2025-09-19 00:07 | Outpatient (BNV) | payer MEDICARE, MEDICAID, SELFPAY | PROVIDERS: Emergency Provider Emergency Medicine; PCP Internal Medicine; Visit Provider Internal Medicine | DX: I49.1 Atrial premature depolarization (principal) | CPT/HCPCS: 93010 ==

== ENCOUNTER → 2025-09-19 | Outpatient (BNV) | payer MEDICARE, MEDICAID, SELFPAY | PROVIDERS: Emergency Provider Emergency Medicine; PCP Internal Medicine; Visit Provider Radiology Diagnostic Radiology | DX: Z04.3 Encounter for examination and observation following other accident (principal) | CPT/HCPCS: 70450; 72125 ==